=== PATIENT | female | born 1980 | race Caucasian/White ===

== ENCOUNTER 2016-12-01 11:09 | Emergency (ER) | payer MEDICAID ==
[~2016-12-01] VITALS: Ht 160 cm; Wt 61.2 kg
[~2016-12-01 11:09] MED LIST: AC500T PO; ACET-461 PO; ALB0.5V; ALB0.5V INH; ALBU0.8322 IH; ALBU17AE23 IH; ALBU17AE3 IH; ALBU2.5V52 INH; ALBU8.5H2 INH; ALBU8.5H2 PO; ALPR0.25 PO; BENZ0.5T3 PO; BENZ1TAB6 PO; BNZT1T PO; BUDE6HFA IH; BUDE6HFA INH; BUSP10TA95 PO; CARI350T27 PO; CEFD300C3 PO; CEPH500C; CETI10TA17 PO; CHL25T PO; CRB200T; CRS350T; CRS350T PO; CYCL10TA9 PO; DESV50TA PO; DIAZ10TA; DICL75TA2 PO; DICY20TA10 PO; DICY20TA57; DIGO-8 PO; DIGO125T PO; DIGO125T18 PO; DIGO250T PO; DIGO250T96; DIGO250T96 PO; DILT300C25 PO; DIPH25CA6 PO; DIVA500T15 PO; DRON400T2 PO; DULO30CA PO; Daptomycin IV; ENXP60I.6 IM; ENXP60I.6 SQ; ESTR1TAB24; ESTR2TAB PO; ESTR2TAB4 PO; ESZO2TAB4 PO; FLUT1DIS26 IH; FNT50TD TD; FRSM20T; FURO-124 PO; FURO40TA4 PO; GABA600T2 PO; GBPN100C PO; HALO2TAB PO; HALO5TAB PO; HLP5T PO; HYDR-3714 PO; HYDR-3781 PO; HYDR-3812 PO; HYDR25CA3 PO; HYDR25CA5 PO; HYDR50CA PO; HYOS0.1216 PO; HYOS0.1217 PO; IBP800T; KCL20TCR PO; LEVE500T PO; LEVE500T6 PO; LEVE750T19 PO; LEVE750T5 PO; LEVO500T2 PO; LEVO500T69 PO; LOXA25CA2 PO; MECL-106 PO; MECL-133; MECL-133 PO; MECL12.579 PO; METH10TA8 PO; METHYLIN; METO-333 PO; METO25TA; METO25TA PO; METO25TA6 PO; METR500T; METR500T PO; MIRT45TA5 PO; MRTZ30T1 PO; MTP25TSR; MULT-35 PO; MULTIVITAMIN; NAPR-243 PO; NCT21TD TD; NF-ESOM40C PO; OLAN1CAP9; OLAN20TA3 PO; OMEP20TA2 PO; OMEP40CA36 PO; ONDA8TAB6 PO; ONDA8TAB9; ORPH100T PO; OXC10TCR PO; OXYC-272; OXYC-272 PO; OXYC-465 PO; OXYC5TAB49 PO; PANT40SU PO; PANT40TA PO; PANT40TA3 PO; PERCOSET PO; PNT40TEC PO; POTA-51 PO; POTA10CA43 PO; POTA10TA6; POTA20TA15 PO; PREG75CA PO; QUET300T PO; RANI150T15 PO; RIVA20TA PO; SCR1T1 PO; SINUS MED; SLMFT1E; SUCR1ORA5 PO; TOPI100T; TORS100T; TRAM5POW3 MC; TRAZ150T42; TRAZ150T42 PO; TRAZ150T72 PO; TRS20T; WARF-48 PO; WARF5TAB PO; WRF2T PO; WRF5T PO; ZOLP10TA; ZOLP10TA5 PO; ZYDIS PO; [UNRECOGNIZED DRUG - CODE] PO; [UNRECOGNIZED DRUG - CODE] PO; [UNRECOGNIZED DRUG - CODE] PO
--- OUTSIDE RECORDS SUMMARY | 2016-12-01 11:18 | XMS REPORT | Continuity of Care Document ---
Author Author [facility] Organization [facility] Address Unknown Phone Unavailable Care Team Providers Care Surgery Manager Name Role Phone Damian Rodriguez PCP [phone] Source Comments Some departments are not documenting in the electronic medical record. If you do not see the information that you expected, contact Release of Information in the Health Information Management department at [phone] for further assistance in locating additional records.[facility] Active Allergies and Adverse Reactions Allergen Noted Date Severity Reactions Comments Adhesive 08/15/2011 RASH Specifically surgical tape-"rips my skin off" Amoxicillin 03/01/2010 VOMITING, ITCHING Compazine 07/07/2010 SEE COMMENTS EPS symptoms Darvocet 03/01/2010 NAUSEA AND VOMITING Erythromycin 03/01/2010 VOMITING Inapsine 03/01/2010 AGITATION EPS symptoms Peas 11/13/2012 HIVES, EDEMA Penicillins 08/15/2011 HIVES, NAUSEA AND VOMITING Phenergan 03/01/2010 "makes eyes funny"; EPS Sulfa (Sulfonamide 03/01/2010 VOMITING Antibiotics) Tylenol 12/29/2014 Medium HIVES tylenol 3 Current Medications Prescription Sig. Disp. Refills Start End Date Status Date potassium chloride SR Take 1 Tab by mouth Active (K-DUR) 20 mEq tablet Daily. estradiol (ESTRACE) 2 mg Take 2 mg by mouth daily. Active tablet albuterol (VENTOLIN HFA, Inhale 2 Puffs by mouth Active PROAIR HFA) 90 Every 6 Hours as needed mcg/Actuation inhaler for Wheezing. furosemide (LASIX) 40 mg Take 40 mg by mouth Active tablet daily. fluticasone-salmeterol Inhale 1 Puff by mouth Active (ADVAIR DISKUS) 500-50 every 12 hours. mcg inhalation disk metoprolol XL (TOPROL XL) Take 50 mg by mouth Active 50 mg tablet daily. benztropine (COGENTIN) Take 0.5 mg by mouth Active 0.5 mg tablet three times daily. haloperidol (HALDOL) 2 mg Take 2 mg by mouth four Active tablet times daily. Ascorbic Acid 100 mg Tab Take 1 Tab by mouth at Active bedtime daily. albuterol 0.083% Inhale 2.5 mg solution as Active (PROVENTIL; VENTOLIN) 2.5 directed three times mg /3 mL (0.083 %) daily. nebulizer solution calcium carbonate Take 1 Tab by mouth twice 90 Tab 0 11/15/19 Active (OS-SHARA) 1250 mg tablet daily with meals. 13 naproxen (NAPROSYN) 500 Take 1 Tab by mouth twice 60 Tab 1 12/30/19 Active mg tablet daily with meals. 15 rivaroxaban (XARELTO) 20 Take 1 Tab by mouth daily 06/13/20 Active mg tab tablet with breakfast. 16 Active Problems Problem Noted Date Carpal tunnel syndrome of right wrist 12/08/2014 Overview: 12/16/14 L ast Assessment & Plan: Sutures removed. Steri-strips placed. Allow to fall off naturally. OK to shower. Do not submerge wound in water x 2 more weeks. Monitor wound for redness, drainage or other concerns. Contact office with questions. WBAT. Wrist splint prn. Naproxen provided for pain. 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/2012 Overview: History of, due to Ebstein Anomaly Injury, superficial, elbow, forearm, or wrist with infection 09/22/2011 Fracture of right wrist 09/04/2011 Malunion of fracture 09/04/2011 Most Recent Encounters Date Type Specialty Providers Description 10/05/2016 Telephone Cardiology Lesvia Peralta RN Drug/alcohol Problem - plan for cath & valve procedure Social History Tobacco Use Types Packs/Day Years Used Date Current Every Day Smoker Cigarettes 2 18 Smokeless Tobacco: Never Used Tobacco Cessation: Ready to Quit: No; Counseling Given: Yes Comments: Alcohol Use Drinks/Week oz/Week Comments No 0 Standard 0.0 drinks or equivalent Last Filed Vital Signs Vital Sign Reading Time Taken Blood Pressure 120/78 06/13/2016 10:10 AM CDT Pulse 87 06/13/2016 11:26 AM CDT Temperature 36.4 C (97.5 F) 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
[2016-12-01 11:47] LABS: BASOPHILS % (AUTO) 0 % (0-10); EOSINOPHILS # (AUTO) 0.4 10^3/uL (0.0-0.3); EOSINOPHILS % (AUTO) 4 % (0-10); LYMPHOCYTES # (AUTO) 2.3 X 10^3 (1.0-4.0); LYMPHOCYTES % (AUTO) 22 % (12-44); MEAN CORPUSCULAR HEMOGLOBIN 30 PG (25-34); MEAN CORPUSCULAR HGB CONC 33 G/DL (32-36); MEAN CORPUSCULAR VOLUME 89 FL (80-99); MEAN PLATELET VOLUME 9.3 FL (7.4-10.4); MONOCYTES % (AUTO) 9 % (0-12); NEUTROPHILS # (AUTO) 7.1 X 10^3 (1.8-7.8); NEUTROPHILS % (AUTO) 65 % (42-75); PLATELET COUNT 410 10^3/uL (130-400); RED BLOOD COUNT 4.33 10^6/uL (4.35-5.85); RED CELL DISTRIBUTION WIDTH 13.9 % (10.0-14.5); WHITE BLOOD COUNT 10.8 10^3/uL (4.3-11.0)
[2016-12-01 12:06] LABS: ALANINE AMINOTRANSFERASE 17 U/L (0-55); ALBUMIN 4.2 G/DL (3.2-4.5); ANION GAP 9 MMOL/L (5-14); ASPARTATE AMINO TRANSFERASE 16 U/L (5-34); BILIRUBIN,TOTAL 0.4 MG/DL (0.1-1.0); BLOOD UREA NITROGEN 6 MG/DL (7-18); BUN/CREATININE RATIO 8; CALCIUM 8.9 MG/DL (8.5-10.1); CARBON DIOXIDE 26 MMOL/L (21-32); CHLORIDE 101 MMOL/L (98-107); CREATININE SERUM 0.72 MG/DL (0.60-1.30); GFR ESTIMATED > 60; GLUCOSE 82 MG/DL (70-105); POTASSIUM 4.2 MMOL/L (3.6-5.0); SODIUM 136 MMOL/L (135-145); TOTAL PROTEIN 7.7 G/DL (6.4-8.2)
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
[2016-12-01 13:03] VITALS: BP 114/74
== END 2016-12-01 13:03 | disposition home or self-care (01) ==
LOC: EDUNIT# 11:09 → ER 11:12
DX: R53.83 Other fatigue (principal); F19.10 Other psychoactive substance abuse, uncomplicated; F12.10 Cannabis abuse, uncomplicated; I10 Essential (primary) hypertension; J44.9 Chronic obstructive pulmonary disease, unspecified; F17.210 Nicotine dependence, cigarettes, uncomplicated
CPT/HCPCS: 36415; 80053; 80306; 85025; 99282; 99283

== ENCOUNTER 2016-12-01 18:59 | Observation (INO) | payer MEDICAID ==
[~2016-12-01] VITALS: Ht 160 cm; Wt 60.8 kg
--- OUTSIDE RECORDS SUMMARY | 2016-12-01 19:04 | XMS REPORT | Continuity of Care Document ---
Author Author [facility] Organization [facility] Address Unknown Phone Unavailable Care Team Providers Care Color Checker Name Role Phone Damian Rodriguez PCP [phone] Source Comments Some departments are not documenting in the electronic medical record. 

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
--- NOTE | 2016-12-01 21:17 | Diagnostic Imaging Report ---
PROCEDURE: CT head without contrast. TECHNIQUE: Multiple contiguous axial images were obtained through the brain without the use of intravenous contrast. INDICATION: Altered mental status. Study compared 10/12/2016. There is no hemorrhage, hydrocephalus, edema, mass, mass effect or interval change. No sulcal effacement. No abnormal extra-axial collection. The orbits and paranasal sinuses and calvarium unremarkable. The mastoid stable. IMPRESSION: Unchanged exam. No acute appearing abnormality. Dictated by: Dictated on workstation # [id number]
[2016-12-01 23:25] VITALS: BP 107/79
[2016-12-02] VITALS (7 sets, daily range): BP systolic 90–112; BP diastolic 55–75
[2016-12-02] MEDS ORDERED: RT-ALBUTEROL SULF 2.5 MG/3 ML PRE-MIX VIAL INH PRN (00:30)
[2016-12-02 03:51] LABS: BASOPHILS % (AUTO) 0 % (0-10); EOSINOPHILS # (AUTO) 0.5 10^3/uL (0.0-0.3); EOSINOPHILS % (AUTO) 6 % (0-10); LYMPHOCYTES # (AUTO) 2.6 X 10^3 (1.0-4.0); LYMPHOCYTES % (AUTO) 30 % (12-44); MEAN CORPUSCULAR HEMOGLOBIN 30 PG (25-34); MEAN CORPUSCULAR HGB CONC 34 G/DL (32-36); MEAN CORPUSCULAR VOLUME 88 FL (80-99); MEAN PLATELET VOLUME 9.6 FL (7.4-10.4); MONOCYTES # (AUTO) 1.7 X 10^3 (0.0-1.0); MONOCYTES % (AUTO) 20 % (0-12); NEUTROPHILS # (AUTO) 3.7 X 10^3 (1.8-7.8); NEUTROPHILS % (AUTO) 44 % (42-75); PLATELET COUNT 402 10^3/uL (130-400); RED BLOOD COUNT 4.11 10^6/uL (4.35-5.85); RED CELL DISTRIBUTION WIDTH 13.7 % (10.0-14.5); WHITE BLOOD COUNT 8.5 10^3/uL (4.3-11.0)
[2016-12-02 04:10] LABS: ANION GAP 9 MMOL/L (5-14); BLOOD UREA NITROGEN 6 MG/DL (7-18); BUN/CREATININE RATIO 8; CALCIUM 8.8 MG/DL (8.5-10.1); CARBON DIOXIDE 24 MMOL/L (21-32); CHLORIDE 105 MMOL/L (98-107); CREATININE SERUM 0.73 MG/DL (0.60-1.30); GFR ESTIMATED > 60; GLUCOSE 77 MG/DL (70-105); MAGNESIUM 2.4 MG/DL (1.8-2.4); PHOSPHORUS 3.7 MG/DL (2.3-4.7); POTASSIUM 4.1 MMOL/L (3.6-5.0); SODIUM 138 MMOL/L (135-145)
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
--- NOTE | 2016-12-02 09:56 | Diagnostic Imaging Report ---
Portable semi-erect AP chest at 05:24 a.m. INDICATION: Respiratory distress. FINDINGS: This exam is less than optimal as the patient is rotated. Allowing for this technical factor, there does not appear to have been any significant change when compared to the prior exam of 09/26/2016. The heart is enlarged and there are sternotomy wires and surgical clips evident. There is also a left-sided pacemaker in place. The perihilar markings on the right do seem more prominent than on the prior exam, but they are probably accentuated by rotation of the patient. The lungs seem clear. There is no sign of failure, pneumonia, or pleural effusion. The mediastinum is not widened. The osseous structures are intact. The orthopedic fixation rods extending from T3 to the thoracolumbar junction seen previously are again evident. IMPRESSION: Allowing for the rotation of the patient, there has been no significant change since the prior exam. There is no evidence for an acute cardiopulmonary abnormality. Dictated by: Dictated on workstation # [id number]
--- NOTE | 2016-12-20 12:01 | Physician Query-Final Dx ---
CARLEE GIRALDO 12/20/16 1201: Final Diagnosis Give Final Diagnosis Please give Final Diagnosis MIRELLA CALIXTO MD 12/26/16 1212: Final Diagnosis Give Final Diagnosis 1. Altered mental status--secondary to #2 2. Substance abuse--benzodiazepines, THC, and alcohol CARLEE GIRALDO Dec 20, 2016 12:01 MIRELLA CALIXTO MD Dec 26, 2016 12:12
== END 2016-12-02 09:25 | disposition home or self-care (01) ==
LOC: ER 18:59 → EDUNIT# 18:59 → UNDOADMOB 22:31 → ICU 22:31 → UNDODISOB 12-02 11:10
PROVIDERS: ADMIT Family Medicine; ATTEND Family Medicine
DX: R41.82 Altered mental status, unspecified (principal); J44.9 Chronic obstructive pulmonary disease, unspecified; I48.91 Unspecified atrial fibrillation; G40.909 Epilepsy, unspecified, not intractable, without status epilepticus; N31.9 Neuromuscular dysfunction of bladder, unspecified; K21.9 Gastro-esophageal reflux disease without esophagitis; F17.210 Nicotine dependence, cigarettes, uncomplicated; Z95.0 Presence of cardiac pacemaker
CPT/HCPCS: 36415; 70450; 71010; 80048; 80306; 80320; 83735; 84100; 85025; 87081; 99285; G0378

== ENCOUNTER 2017-02-06 17:29 | Inpatient (IN) | payer MEDICAID ==
[2017-02-06] VITALS (15 sets, daily range): BP systolic 91–133; BP diastolic 53–90
[~2017-02-06] VITALS: Ht 160 cm; Wt 61.2 kg
[2017-02-06] MEDS ORDERED: DILTIAZEM 25 MG/5 ML INJ (CARDIZEM) VIAL IVP ONE (18:00)
[2017-02-06] MEDS ORDERED: DILTIAZEM DRIP 100 MG in SODIUM CHLORIDE (ADD-VANTAGE) 100 ML IV SCH (18:00)
[2017-02-06 18:01] LABS: BASOPHILS % (AUTO) 0 % (0-10); EOSINOPHILS % (AUTO) 0 % (0-10); LYMPHOCYTES # (AUTO) 2.8 X 10^3 (1.0-4.0); LYMPHOCYTES % (AUTO) 21 % (12-44); MEAN CORPUSCULAR HEMOGLOBIN 29 PG (25-34); MEAN CORPUSCULAR HGB CONC 34 G/DL (32-36); MEAN CORPUSCULAR VOLUME 86 FL (80-99); MEAN PLATELET VOLUME 10.1 FL (7.4-10.4); MONOCYTES % (AUTO) 8 % (0-12); NEUTROPHILS # (AUTO) 9.5 X 10^3 (1.8-7.8); NEUTROPHILS % (AUTO) 71 % (42-75); PLATELET COUNT 366 10^3/uL (130-400); RED BLOOD COUNT 3.88 10^6/uL (4.35-5.85); RED CELL DISTRIBUTION WIDTH 14.4 % (10.0-14.5); WHITE BLOOD COUNT 13.3 10^3/uL (4.3-11.0)
[2017-02-06 18:12] LABS: INR 1.5 (0.8-1.4); PROTHROMBIN TIME PATIENT 17.4 SEC (12.2-14.7)
[2017-02-06 18:24] LABS: ALANINE AMINOTRANSFERASE 10 U/L (0-55); ALBUMIN 4.3 G/DL (3.2-4.5); ANION GAP 13 MMOL/L (5-14); ASPARTATE AMINO TRANSFERASE 9 U/L (5-34); BILIRUBIN,TOTAL 0.3 MG/DL (0.1-1.0); BLOOD UREA NITROGEN 9 MG/DL (7-18); BUN/CREATININE RATIO 10; CALCIUM 9.5 MG/DL (8.5-10.1); CARBON DIOXIDE 23 MMOL/L (21-32); CHLORIDE 102 MMOL/L (98-107); CREATININE SERUM 0.86 MG/DL (0.60-1.30); GFR ESTIMATED > 60; GLUCOSE 145 MG/DL (70-105); MAGNESIUM 2.2 MG/DL (1.8-2.4); POTASSIUM 3.9 MMOL/L (3.6-5.0); SODIUM 138 MMOL/L (135-145); TOTAL PROTEIN 7.6 G/DL (6.4-8.2)
[2017-02-06 18:30] LABS: ALCOHOL < 10 MG/DL (<10)
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
[2017-02-06 18:44] LABS: MYOGLOBIN SERUM 20.1 NG/ML (10.0-92.0)
[2017-02-06 18:48] LABS: DIGOXIN 0.41 NG/ML (0.80-2.00)
[2017-02-06] MEDS ORDERED: fentaNYL INJECTION 100 MCG/2 ML AMP IVP ONE (19:15)
[2017-02-06] MEDS ORDERED: RIVAROXABAN 20 MG TABLET (XARELTO) PO SCH (20:18)
[2017-02-06] MEDS ORDERED: ONDANSETRON 4 MG/2 ML (SDV) Z0FRAN IVP PRN (20:30)
[2017-02-06] MEDS: NS IV 1000 ML 1,000 ML IV SCH (20:30)
[2017-02-06] MEDS ORDERED: DILTIAZEM DRIP 100 MG/NS 100 ML IV SCH ×2 (20:30)
[2017-02-06] MEDS: LEVETIRACETAM 500 MG (KEPPRA) TAB PO SCH (21:40)
[2017-02-06] MEDS: meTOprolol TARTRATE 25 MG (LOPRESSOR) TABLET PO SCH (21:40)
[2017-02-06] MEDS ORDERED: RIVA20TA PO (21:51)
[2017-02-06] MEDS ORDERED: OLAN5TAB23 (21:51)
[2017-02-06] MEDS ORDERED: PRD20T PO (21:51)
[2017-02-06] MEDS ORDERED: PANT40TA3 PO (21:51)
[2017-02-06] MEDS ORDERED: OLAN10TA17 PO (21:51)
[2017-02-06] MEDS ORDERED: CYCL10TA9 PO (21:51)
[2017-02-06] MEDS ORDERED: FURO40TA4 PO (21:51)
[2017-02-06] MEDS ORDERED: LORA10TA7 PO (21:51)
[2017-02-06] MEDS ORDERED: CYCLOBENZAPRINE 10 MG (FLEXERIL) TAB ONE (22:11)
[2017-02-07] VITALS (29 sets, daily range): BP systolic 86–128; BP diastolic 42–87
[2017-02-07] MEDS: PANTOPRAZOLE 40 MG (PROTONIX) TAB PO SCH ×2 (00:11→09:11)
[2017-02-07] MEDS: CYCLOBENZAPRINE 10 MG (FLEXERIL) TAB PO PRN ×2 (04:06→09:10)
[2017-02-07 04:14] LABS: BASOPHILS % (AUTO) 0 % (0-10); EOSINOPHILS # (AUTO) 0.1 10^3/uL (0.0-0.3); EOSINOPHILS % (AUTO) 1 % (0-10); LYMPHOCYTES # (AUTO) 6.3 X 10^3 (1.0-4.0); LYMPHOCYTES % (AUTO) 37 % (12-44); MEAN CORPUSCULAR HEMOGLOBIN 29 PG (25-34); MEAN CORPUSCULAR HGB CONC 33 G/DL (32-36); MEAN CORPUSCULAR VOLUME 88 FL (80-99); MEAN PLATELET VOLUME 10.7 FL (7.4-10.4); MONOCYTES # (AUTO) 1.7 X 10^3 (0.0-1.0); MONOCYTES % (AUTO) 10 % (0-12); NEUTROPHILS # (AUTO) 8.9 X 10^3 (1.8-7.8); NEUTROPHILS % (AUTO) 52 % (42-75); PLATELET COUNT 323 10^3/uL (130-400); RED BLOOD COUNT 3.44 10^6/uL (4.35-5.85); RED CELL DISTRIBUTION WIDTH 14.5 % (10.0-14.5)
[2017-02-07 04:40] LABS: ALANINE AMINOTRANSFERASE 8 U/L (0-55); ALBUMIN 3.6 G/DL (3.2-4.5); ANION GAP 9 MMOL/L (5-14); ASPARTATE AMINO TRANSFERASE 8 U/L (5-34); BILIRUBIN,TOTAL 0.5 MG/DL (0.1-1.0); BLOOD UREA NITROGEN 11 MG/DL (7-18); BUN/CREATININE RATIO 15; CALCIUM 8.1 MG/DL (8.5-10.1); CARBON DIOXIDE 23 MMOL/L (21-32); CHLORIDE 106 MMOL/L (98-107); CREATININE SERUM 0.73 MG/DL (0.60-1.30); GFR ESTIMATED > 60; GLUCOSE 103 MG/DL (70-105); MAGNESIUM 2.3 MG/DL (1.8-2.4); PHOSPHORUS 3.8 MG/DL (2.3-4.7); POTASSIUM 3.6 MMOL/L (3.6-5.0); SODIUM 138 MMOL/L (135-145); TOTAL PROTEIN 6.4 G/DL (6.4-8.2)
[2017-02-07 04:54] LABS: CHOLESTEROL 225 MG/DL (< 200); DIRECT LDL 172 MG/DL (1-129); TRIGLYCERIDES 121 MG/DL (<150); VLDL CHOLESTEROL 24 MG/DL (5-40)
[2017-02-07 04:57] LABS: ANISOCYTOSIS SLIGHT; BAND NEUTROPHILS 0 %; BASOPHILS % (MANUAL) 0 %; EOSINOPHILS % (MANUAL) 0 %; HYPOCHROMASIA SLIGHT; LYMPHOCYTES % (MANUAL) 42 %; NEUTROPHILS % (MANUAL) 52 %; POIKILOCYTOSIS SLIGHT; POLYCHROMASIA SLIGHT; TARGET CELLS SLIGHT
--- NOTE | 2017-02-07 08:51 | Diagnostic Imaging Report ---
INDICATION: Atrial fibrillation and flutter. COMPARISON: 02/06 FINDINGS: Enlargement of cardiac silhouette unchanged in magnitude and configuration. No evidence for focal pneumonia or pulmonary edema. Air trapping chronic. No effusion or pneumothorax. IMPRESSION: Stable chest. No overt failure pattern, pneumonia or acute pleural collection. Dictated by: Dictated on workstation # [id number]
[2017-02-07] MEDS ORDERED: METO-333 PO (08:55)
[2017-02-07] MEDS ORDERED: DICL75TA2 PO (08:55)
[2017-02-07] MEDS ORDERED: DIGOXIN 0.125 MG (LANOXIN) TAB PO SCH (09:00)
[2017-02-07] MEDS: meTOprolol TARTRATE 25 MG (LOPRESSOR) TABLET PO SCH (09:10)
[2017-02-07] MEDS: NS IV 1000 ML 1,000 ML IV SCH (09:10)
[2017-02-07] MEDS: LEVETIRACETAM 500 MG (KEPPRA) TAB PO SCH (09:10)
[2017-02-07] MEDS ORDERED: NICOTINE 21 MG (NICODERM) PATCH TD SCH (09:30)
[2017-02-07] MEDS ORDERED: ACETAMINOPHEN 500 MG TAB (TYLENOL) PO PRN ×2 (09:30→10:45)
[2017-02-07] MEDS ORDERED: ACET-2267 PO (09:50)
[2017-02-07] MEDS ORDERED: CYCLOBENZAPRINE 10 MG (FLEXERIL) TAB PO PRN (10:45)
[2017-02-07] MEDS ORDERED: OLANZapine 5 MG ODT (ZyPREXA ZYDIS) PO SCH (11:00)
[2017-02-07] MEDS ORDERED: ESTRADIOL 1 MG TAB (ESTRACE) PO SCH (11:00)
[2017-02-07] MEDS ORDERED: PANTOPRAZOLE 40 MG (PROTONIX) TAB PO SCH ×2 (11:00→21:00)
[2017-02-07] MEDS ORDERED: predniSONE 20 MG TAB PO SCH (11:03)
[2017-02-07] MEDS ORDERED: ETODOLAC 300 MG (LODINE) CAP PO SCH (11:15)
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
--- NOTE | 2017-02-07 11:22 | Consultation-Cardiology ---
HPI-Cardiology Cardiology Consultation: Date of Consultation 02/07/17 Date of Admission Attending Physician Jose Zavala MD Admitting Physician Mis,[facility] Consulting Physician Whit MAHONEY MD HPI: Chief Complaint: Palpitations and chest pain This is a 36-year-old patient with previous history of drug abuse. She had tricuspid valve replacement x2 previously. Apparently she is waiting for another one. However she has to be off drugs for 6 months before another valve is offered. She also has history of atrial flutter/fibrillation with numerous cardioversions in the past. Permanent pacemaker. All her care is at [facility]. She presents with chest pain and palpitations. She was found to be in atrial fibrillation and rapid ventricular rate. Review of Systems-Cardiology Review of Systems Constitutional: No As described under HPI, No no symptoms reported, No chills, No fever, No lightheadedness, No malaise, No tiredness, No weight loss, No weight gain, No other Eyes: No As described under HPI, No no symptoms reported, No blindness, No blurred vision, No contact lenses, No drainage, No decreased acuity, No foreign body sensation, No glasses, No inflammation, No pain, No photophobia, No previous injury, No shadows, No tunnel vision, No other, No vision change Ears/Nose/Throat: No As described under HPI, No no symptoms reported, No chronic hearing loss, No epistaxis, No ear discharge, No ear pain, No loose teeth, No mouth pain, No mouth swelling, No nasal drainage, No nose pain, No recent hearing loss, No throat pain, No throat swelling, No ulcerations, No other Respiratory: No no symptoms reported, No As described under HPI, No cough, No orthopnea, No shortness of breath, No SOB with excertion, No SOB at rest, No stridor, No wheezing, No other Cardiovascular: chest pain, palpitations Gastrointestinal: No no symptoms reported, No As described under HPI, No abdomen distended, No abdominal pain, No blood streaked bowels, No constipation , No diarrhea, No difficulty swallowing, No nausea, No poor appetite, No poor fluid intake, No rectal bleeding, No vomiting, No other, No nausea/vomiting/ diarrhea, No stool coloration changes Genitourinary: No no symptoms reported, No As described under HPI, No burning, No dysuria, No discharge, No frequency, No flank pain, No hematuria, No incontinence, No pain, No urgency, No other, No urine frequency changes, No urine coloration changes [id number]-Zbqzrj Hx Patient Social History Alcohol Use: Denies Use Recreational Drug Use: No (STATES SHE IS RECOVERING FROM METH AN POT ) Smoking Status: Current Everyday Smoker Type Used: Cigarettes Recent Foreign Travel: No Recent Infectious Disease Expo: No Physical Abuse Screen: No Sexual Abuse: No Immunizations Up To Date Tetanus Booster (TDap): Unknown Date of Pneumonia Vaccine: Oct 22, 2012 Date of Influenza Vaccine: Aug 22, 2015 Past Medical History PMH As described under Assessment. Family Medical History Family History: Alcoholism 19 MOTHER Depression Depression Diabetes mellitus 19 MOTHER Drug abuse 19 MOTHER FH: cancer of genital organ 19 MOTHER Allergies and Home Medications Allergies Coded Allergies: asenapine (Unverified Allergy, Severe, TOUNGE SWELLING, 04/01/15) codeine (Unverified Allergy, Mild, FLUSHED SKIN, 04/01/15) ondansetron (Verified Allergy, Mild, 06/24/14) Penicillins (Unverified Allergy, Unknown, 06/07/14) Sulfa (Sulfonamide Antibiotics) (Unverified Allergy, Unknown, 04/22/11) droperidol (Verified Allergy, Unknown, 03/14/10) SAME INAPSINE erythromycin base (Verified Allergy, Unknown, 11/26/05) prochlorperazine (Verified Allergy, Unknown, 01/31/06) promethazine (Verified Allergy, Unknown, 01/31/06) promethazine HCl (Unverified Allergy, Unknown, 06/07/14) propoxyphene (Verified Allergy, Unknown, 11/26/05) Home Medications Acetaminophen 500 Mg Tablet, 500-1,000 MG PO EVERY 4-6 HOURS PRN for PAIN-MILD, (Reported) Cyclobenzaprine HCl 10 Mg Tablet, 10 MG PO TID PRN for MUSCLE SPASMS, (Reported) Diclofenac Sodium 75 Mg Tablet.dr, 75 MG PO BID, (Reported) Digoxin 125 Mcg Tablet, 125 MCG PO DAILY, (Reported) Estradiol 2 Mg Tablet, 2 MG PO DAILY, (Reported) Furosemide 40 Mg Tablet, 40 MG PO DAILY, (Reported) Levetiracetam 750 Mg Tablet, 750 MG PO BID, (Reported) Loratadine 10 Mg Tablet, 10 MG PO HS, (Reported) Meclizine HCl 25 Mg Tablet, 25 MG PO DAILY, (Reported) Metoprolol Tartrate 25 Mg Tablet, 12.5 MG PO DAILY, (Reported) TAKES 1/2 (25MG) TABLET Olanzapine 10 Mg Tab.rapdis, 5 MG PO BID, (Reported) TAKES 1/2 (10MG) TABLET Omeprazole 40 Mg Capsule.dr, 40 MG PO HS, (Reported) Pantoprazole Sodium 40 Mg Tablet.dr, 40 MG PO DAILY, (Reported) Prednisone 20 Mg Tab, 40 MG PO DAILY for 5 Days, (Reported) FILLED 5 DAY SUPPLY 02-03-17 TAKES 2 (20MG) TABLETS Rivaroxaban 20 Mg Tablet, 20 MG PO DAILY, (Reported) Physical Exam-Cardiology Physical Exam Vital Signs/I&O Vital Sign - Last 12Hours 02/06/17 02/06/17 02/07/17 02/07/17 23:30 23:45 00:00 00:00 Pulse 63 60 60 Resp 12 12 20 B/P (MAP) 92/55 91/53 95/58 Pulse Ox 99 96 96 98 O2 Delivery Nasal Cannula Nasal Cannula Nasal Cannula Nasal Cannula O2 Flow Rate 3.00 3.00 3.00 3.00 02/07/17 02/07/17 02/07/17 02/07/17 00:12 00:15 00:30 00:45 Temp 97.9 Pulse 60 59 60 Resp 18 16 19 B/P (MAP) 97/54 94/56 92/52 Pulse Ox 98 98 98 O2 Delivery Nasal Cannula Nasal Cannula Nasal Cannula Nasal Cannula O2 Flow Rate 3.00 3.00 3.00 3.00 02/07/17 02/07/17 02/07/17 02/07/17 01:00 01:00 01:15 01:30 Pulse 59 59 60 60 Resp 18 17 B/P (MAP) 90/54 94/53 91/55 Pulse Ox 99 99 99 O2 Delivery Nasal Cannula Nasal Cannula Nasal Cannula O2 Flow Rate 3.00 3.00 3.00 02/07/17 02/07/17 02/07/17 02/07/17 02:00 02:15 02:30 02:45 Pulse 46 47 46 46 Resp 17 18 B/P (MAP) 103/60 96/58 94/54 95/61 Pulse Ox 99 99 99 99 O2 Delivery Nasal Cannula Nasal Cannula Nasal Cannula Nasal Cannula O2 Flow Rate 3.00 3.00 3.00 3.00 02/07/17 02/07/17 02/07/17 02/07/17 03:00 03:15 03:30 03:45 Pulse 46 46 47 47 Resp 16 17 16 B/P (MAP) 93/59 94/61 102/61 95/63 Pulse Ox 99 100 99 99 O2 Delivery Nasal Cannula Nasal Cannula Nasal Cannula Nasal Cannula O2 Flow Rate 3.00 3.00 3.00 3.00 02/07/17 02/07/17 02/07/17 02/07/17 04:00 04:00 04:15 04:30 Pulse 46 52 46 Resp 20 20 15 B/P (MAP) 116/78 104/66 Pulse Ox 99 96 100 100 O2 Delivery Nasal Cannula Nasal Cannula Nasal Cannula Nasal Cannula O2 Flow Rate 3.00 3.00 3.00 3.00 02/07/17 02/07/17 02/07/17 02/07/17 04:45 05:00 05:15 05:30 Pulse 46 46 46 80 Resp 16 16 17 16 B/P (MAP) 110/69 101/69 96/65 89/42 Pulse Ox 100 100 99 O2 Delivery Nasal Cannula Nasal Cannula Nasal Cannula Nasal Cannula O2 Flow Rate 3.00 3.00 3.00 3.00 02/07/17 02/07/17 02/07/17 02/07/17 05:45 06:00 06:15 06:30 Pulse 59 63 59 60 Resp 18 26 24 16 B/P (MAP) 94/54 96/54 88/50 86/48 Pulse Ox 100 100 100 100 O2 Delivery Nasal Cannula Nasal Cannula Nasal Cannula Nasal Cannula O2 Flow Rate 3.00 3.00 3.00 3.00 02/07/17 02/07/17 02/07/17 02/07/17 06:45 07:00 08:00 08:13 Temp 97.3 Pulse 65 63 61 Resp 14 12 B/P (MAP) 89/49 110/73 Pulse Ox 100 100 100 O2 Delivery Nasal Cannula Nasal Cannula Nasal Cannula O2 Flow Rate 3.00 3.00 3.00 02/07/17 02/07/17 08:48 09:13 Pulse 78 Resp 20 B/P (MAP) 128/87 Pulse Ox 100 O2 Delivery Nasal Cannula O2 Flow Rate 3.00 3.00 Intake and Output 02/07/17 00:00 Intake Total 470 ml Output Total 200 ml Balance 270 ml Capillary Refill : Less Than 3 Seconds Constitutional: No appears stated age, No AAO x 3, No apparent distress, No PERRL, No well-developed, No well-nourished, No other HEENT: No PERRL, No normal ENT inspection, No TMs normal, No pharynx normal, No scleral icterus (R), No scleral icterus (L), No pale conjunctivae (R), No pale conjunctivae (L), No photophobia, No TM abnormal (R), No TM abnormal (L), No pharyngeal erythema, No tonsillar exudate, No other, No discharge, No EOMI, No hearing is well preserved, No hard of hearing, No oral hygience is good, No ulceration, No xanthelasmas are seen Neck: No non-tender, No full range of motion, No supple, No normal inspection, No carotid bruit, No limited range of motion, No lymphadenopathy (R), No lymphadenopathy (L), No tender lateral, No tender midline, No thyromegaly, No other, No carotid pulses are 2 + bilaterally, No with good upstrokes Respiratory: No accessory muscle use, No respiratory distress, No chest tender , No chest expansion is symmetric, No chest is bilaterally symmetric, lungs clear to percussion, lungs clear to auscultation, No crackles, No rhonchi, No rales, No stridor, No wheezing, No pleural rub, No other Cardiovascular: regular rate-rhythm, S1 and S2 Gastrointestinal: No tender, No soft, No round, No distended, No pulsatile mass , No organomegaly, No guarding, No rebound, No tenderness, No hernia, No mass, No audible bowel sounds, No abnormal bowel sounds, No abdominal bruits, No spleenomegaly, No other Rectal: deferred Extremities: No normal range of motion, No non-tender, No normal inspection, No pedal edema, No calf tenderness, No normal capillary refill, No pelvis stable , No calf tenderness, No inflammation, No pedal edema, No slow capillary refill , No swelling, No other, No abrasion, No clubbing, No cyanosis, No ecchymosis, No laceration, No no lower extremity edema bilateral, No significant edema, No tenderness, No wound Neurologic/Psychiatric: No lead radiation therapist II-XII nml as tested, No no motor/sensory deficits, No alert, No normal mood/affect, No oriented x 3, No abnormal cerebellar tests, No abnormal lead radiation therapist II-XII, No abnormal gait, No aphasia, No EOM palsy, No facial droop, No motor weakness, No sensory deficit, No depressed affect, No disoriented x 3, No other, No grossly intact, No power is 5/5 both on sides Data Review Labs Laboratory Tests 02/06/17 17:50: White Blood Count 13.3H, Red Blood Count 3.88L, Hemoglobin 11.2L, Hematocrit 33L , Mean Corpuscular Volume 86, Mean Corpuscular Hemoglobin 29, Mean Corpuscular Hemoglobin Concent 34, Red Cell Distribution Width 14.4, Platelet Count 366, Mean Platelet Volume 10.1, Neutrophils (%) (Auto) 71, Lymphocytes (%) (Auto) 21 , Monocytes (%) (Auto) 8, Eosinophils (%) (Auto) 0, Basophils (%) (Auto) 0, Neutrophils # (Auto) 9.5H, Lymphocytes # (Auto) 2.8, Monocytes # (Auto) 1.0, Eosinophils # (Auto) 0.0, Basophils # (Auto) 0.0, Prothrombin Time 17.4H, INR Comment 1.5H, Activated Partial Thromboplast Time 31, Sodium Level 138, Potassium Level 3.9, Chloride Level 102, Carbon Dioxide Level 23, Anion Gap 13, Blood Urea Nitrogen 9, Creatinine 0.86, Estimat Glomerular Filtration Rate > 60 , BUN/Creatinine Ratio 10, Glucose Level 145H, Calcium Level 9.5, Magnesium Level 2.2, Total Bilirubin 0.3, Aspartate Amino Transf (AST/SGOT) 9, Alanine Aminotransferase (ALT/SGPT) 10, Alkaline Phosphatase 88, Myoglobin 20.1, Troponin I < 0.30, B-Type Natriuretic Peptide 35.5, Total Protein 7.6, Albumin 4.3, Free Thyroxine 1.15, TSH [place] Testing 0.32L, Digoxin Level 0.41L, Serum Alcohol < 10 02/06/17 17:52: Urine Opiates Screen NEGATIVE, Urine Oxycodone Screen NEGATIVE, Urine Methadone Screen NEGATIVE, Urine Propoxyphene Screen NEGATIVE, Urine Barbiturates Screen NEGATIVE, Ur Tricyclic Antidepressants Screen POSITIVEH, Urine Phencyclidine Screen NEGATIVE, Urine Amphetamines Screen NEGATIVE, Urine Methamphetamines Screen NEGATIVE, Urine Benzodiazepines Screen NEGATIVE, Urine Cocaine Screen NEGATIVE, Urine Cannabinoids Screen POSITIVEH 02/06/17 23:50: Troponin I < 0.30 02/07/17 03:49: White Blood Count 17.0H, Red Blood Count 3.44L, Hemoglobin 9.8L, Hematocrit 30L , Mean Corpuscular Volume 88, Mean Corpuscular Hemoglobin 29, Mean Corpuscular Hemoglobin Concent 33, Red Cell Distribution Width 14.5, Platelet Count 323, Mean Platelet Volume 10.7H, Neutrophils (%) (Auto) 52, Lymphocytes (%) (Auto) 37 , Monocytes (%) (Auto) 10, Eosinophils (%) (Auto) 1, Basophils (%) (Auto) 0, Neutrophils # (Auto) 8.9H, Lymphocytes # (Auto) 6.3H, Monocytes # (Auto) 1.7H, Eosinophils # (Auto) 0.1, Basophils # (Auto) 0.0, Sodium Level 138, Potassium Level 3.6, Chloride Level 106, Carbon Dioxide Level 23, Anion Gap 9, Blood Urea Nitrogen 11, Creatinine 0.73, Estimat Glomerular Filtration Rate > 60, BUN/ Creatinine Ratio 15, Glucose Level 103, Calcium Level 8.1L, Magnesium Level 2.3 , Total Bilirubin 0.5, Aspartate Amino Transf (AST/SGOT) 8, Alanine Aminotransferase (ALT/SGPT) 8, Alkaline Phosphatase 70, Total Protein 6.4, Albumin 3.6, Neutrophils % (Manual) 52, Lymphocytes % (Manual) 42, Monocytes % ( Manual) 6, Eosinophils % (Manual) 0, Basophils % (Manual) 0, Band Neutrophils 0 , Polychromasia SLIGHT, Hypochromasia SLIGHT, Poikilocytosis SLIGHT, Anisocytosis SLIGHT, Macrocytosis SLIGHT, Target Cells SLIGHT, Elliptocytes SLIGHT, Phosphorus Level 3.8, Triglycerides Level 121, Cholesterol Level 225H, LDL Cholesterol Direct 172H, VLDL Cholesterol 24, HDL Cholesterol 42 ECG Impression ECG Comment Initial EKG showed atrial fibrillation with right bundle branch block. Current telemetry shows sinus rhythm. A/P-Cardiology Assessment/Admission Diagnosis Tricuspid valve replacement. Atrial fibrillation. Chest pain Plan Atrial fibrillation: She was started on Cardizem infusion. She will continue on Xarelto. Spontaneously converted to sinus rhythm today. She can be discharged home on her same medications to follow-up with her manager zone in [place]. Chest pain: Negative serial troponin. awaiting tricuspid valve surgery. Thank you for your consultation. Please call me if you have any questions. Keanu Mahoney MD, FACP, FACC, FSCAI, FHRS, CCDS Interventional Cardiology Cardiac Electrophysiology Vascular Medicine and Endovascular Interventions Clinical Quality Measures AMI/AHF: ASA po Prior to arrival: Whit Roy MD Feb 07, 2017 11:22 am
[2017-02-07] MEDS ORDERED: RIVAROXABAN 20 MG TABLET (XARELTO) PO SCH (17:00)
[2017-02-07] MEDS ORDERED: LEVETIRACETAM 500 MG (KEPPRA) TAB PO SCH (21:00)
[2017-02-07] MEDS ORDERED: LORATADINE (CLARITIN) 10 MG TAB PO SCH (21:00)
[2017-02-08] MEDS ORDERED: PANTOPRAZOLE 40 MG (PROTONIX) TAB PO SCH (07:00)
[2017-02-08] MEDS ORDERED: FUROSEMIDE 40 MG (LASIX) TAB PO SCH (09:00)
[2017-02-08] MEDS ORDERED: MECLIZINE 25 MG (ANTIVERT) TAB PO SCH (09:00)
[2017-02-08] MEDS ORDERED: DIGOXIN 0.125 MG (LANOXIN) TAB PO SCH (09:00)
[2017-02-08] MEDS ORDERED: meTOprolol TARTRATE 25 MG (LOPRESSOR) TABLET PO SCH (09:00)
== END 2017-02-07 12:05 | disposition home or self-care (01) | DRG 310 ==
LOC: EDUNIT# 17:29 → ER 17:33 → ICU 19:19
PROVIDERS: ADMIT Internal Medicine; ATTEND Internal Medicine
DX: I48.91 Unspecified atrial fibrillation (principal); I48.92 Unspecified atrial flutter; J44.9 Chronic obstructive pulmonary disease, unspecified; I10 Essential (primary) hypertension; D72.829 Elevated white blood cell count, unspecified; F12.10 Cannabis abuse, uncomplicated; F13.10 Sedative, hypnotic or anxiolytic abuse, uncomplicated; F17.210 Nicotine dependence, cigarettes, uncomplicated; K21.9 Gastro-esophageal reflux disease without esophagitis; G40.909 Epilepsy, unspecified, not intractable, without status epilepticus; Z95.2 Presence of prosthetic heart valve; Z95.0 Presence of cardiac pacemaker; T38.0X5A Adverse effect of glucocorticoids and synthetic analogues, initial encounter
CPT/HCPCS: 36415; 71010; 80053; 80061; 80162; 80306; 80320; 83735; 83874; 83880; 84100; 84439; 84443; 84484; 85007; 85025; 85027; 85610; 85730; 87081; 93005; 93041; 96374; 96375

== ENCOUNTER 2017-02-09 11:07 | Emergency (ER) | payer MEDICAID ==
[~2017-02-09] VITALS: Ht 160 cm; Wt 61.2 kg
[~2017-02-09 11:07] MED LIST changes: +ACET-2267 PO; +LORA10TA7 PO; +OLAN10TA17 PO; +OLAN5TAB23; +PRD20T PO
[2017-02-09] MEDS ORDERED: NS IV 500 ML 500 ML IV ONE (11:26)
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
[2017-02-09 11:36] LABS: BASOPHILS # (AUTO) 0.1 10^3/uL (0.0-0.1); BASOPHILS % (AUTO) 0 % (0-10); EOSINOPHILS # (AUTO) 0.8 10^3/uL (0.0-0.3); EOSINOPHILS % (AUTO) 5 % (0-10); LYMPHOCYTES % (AUTO) 36 % (12-44); MEAN CORPUSCULAR HEMOGLOBIN 29 PG (25-34); MEAN CORPUSCULAR HGB CONC 33 G/DL (32-36); MEAN CORPUSCULAR VOLUME 87 FL (80-99); MEAN PLATELET VOLUME 10.4 FL (7.4-10.4); MONOCYTES # (AUTO) 1.7 X 10^3 (0.0-1.0); MONOCYTES % (AUTO) 11 % (0-12); NEUTROPHILS # (AUTO) 7.8 X 10^3 (1.8-7.8); NEUTROPHILS % (AUTO) 48 % (42-75); PLATELET COUNT 389 10^3/uL (130-400); RED BLOOD COUNT 3.96 10^6/uL (4.35-5.85); RED CELL DISTRIBUTION WIDTH 14.5 % (10.0-14.5); WHITE BLOOD COUNT 16.4 10^3/uL (4.3-11.0)
[2017-02-09 11:39] LABS: INR 1.8 (0.8-1.4)
[2017-02-09 11:48] LABS: ALANINE AMINOTRANSFERASE 16 U/L (0-55); ALBUMIN 4.4 G/DL (3.2-4.5); ANION GAP 11 MMOL/L (5-14); ASPARTATE AMINO TRANSFERASE 12 U/L (5-34); BILIRUBIN,TOTAL 0.4 MG/DL (0.1-1.0); BLOOD UREA NITROGEN 12 MG/DL (7-18); BUN/CREATININE RATIO 15; CARBON DIOXIDE 28 MMOL/L (21-32); CHLORIDE 102 MMOL/L (98-107); CREATININE SERUM 0.78 MG/DL (0.60-1.30); GFR ESTIMATED > 60; GLUCOSE 92 MG/DL (70-105); MAGNESIUM 2.2 MG/DL (1.8-2.4); POTASSIUM 3.7 MMOL/L (3.6-5.0); SODIUM 141 MMOL/L (135-145); TOTAL PROTEIN 7.6 G/DL (6.4-8.2)
[2017-02-09 11:52] LABS: BAND NEUTROPHILS 0 %; BASOPHILS % (MANUAL) 0 %; EOSINOPHILS % (MANUAL) 9 %; LYMPHOCYTES % (MANUAL) 35 %; NEUTROPHILS % (MANUAL) 47 %
[2017-02-09 11:53] LABS: HYPOCHROMASIA MODERATE; TARGET CELLS SLIGHT
[2017-02-09 11:55] LABS: MYOGLOBIN SERUM 18.1 NG/ML (10.0-92.0)
--- NOTE | 2017-02-09 11:58 | Diagnostic Imaging Report ---
Portable upright radiograph of the chest. INDICATION: Palpitations and dyspnea. FINDINGS: There is thoracic spine fusion hardware, sternotomy wires and pacemaker with a single-lead seen. There is marked cardiomegaly. No pulmonary vascular congestion. No focal infiltrate. No effusion or pneumothorax. IMPRESSION: Cardiomegaly. No focal infiltrates. Dictated by: Dictated on workstation # [id number]
[2017-02-09 12:03] LABS: BILIRUBIN,URINE NEGATIVE (NEGATIVE); KETONES,URINE NEGATIVE (NEGATIVE); LEUKOCYTE ESTERASE ,URINE NEGATIVE (NEGATIVE); NITRITE,URINE NEGATIVE (NEGATIVE); PH,URINE 6.5 (5-9); PROTEIN,URINE NEGATIVE (NEGATIVE); UROBILINOGEN,URINE NORMAL (NORMAL)
[2017-02-09 12:17] LABS: SQUAMOUS EPITHELIAL CELL,UR RARE /HPF
[2017-02-09 12:53] VITALS: BP 124/84
== END 2017-02-09 12:53 | disposition home or self-care (01) ==
LOC: EDUNIT# 11:07 → ER 11:09
DX: R00.2 Palpitations (principal); R06.00 Dyspnea, unspecified; I51.7 Cardiomegaly; I10 Essential (primary) hypertension; I48.2 Chronic atrial fibrillation; K21.9 Gastro-esophageal reflux disease without esophagitis; F17.210 Nicotine dependence, cigarettes, uncomplicated; Z79.899 Other long term (current) drug therapy; Z95.0 Presence of cardiac pacemaker
CPT/HCPCS: 36415; 71010; 80053; 81000; 83735; 83874; 83880; 84484; 85007; 85027; 85379; 85610; 85730; 93005; 93041; 96360

== ENCOUNTER 2017-02-12 18:00 | Emergency (ER) | payer MEDICAID ==
[~2017-02-12] VITALS: Ht 160 cm; Wt 61.2 kg
[2017-02-12 18:59] LABS: BILIRUBIN,URINE NEGATIVE (NEGATIVE); KETONES,URINE NEGATIVE (NEGATIVE); LEUKOCYTE ESTERASE ,URINE 1+ (NEGATIVE); NITRITE,URINE NEGATIVE (NEGATIVE); PH,URINE 5 (5-9); PROTEIN,URINE 1+ (NEGATIVE); UROBILINOGEN,URINE NORMAL (NORMAL)
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
[2017-02-12] MEDS ORDERED: TETANUS,DIPTH,PERTUSS P/F (BOOSTRIX) 0.5 ML VIAL IM STA (19:16)
[2017-02-12 19:25] LABS: BASOPHILS # (AUTO) 0.1 10^3/uL (0.0-0.1); BASOPHILS % (AUTO) 1 % (0-10); EOSINOPHILS # (AUTO) 0.7 10^3/uL (0.0-0.3); EOSINOPHILS % (AUTO) 5 % (0-10); LYMPHOCYTES # (AUTO) 5.8 X 10^3 (1.0-4.0); LYMPHOCYTES % (AUTO) 40 % (12-44); MEAN CORPUSCULAR HEMOGLOBIN 29 PG (25-34); MEAN CORPUSCULAR HGB CONC 34 G/DL (32-36); MEAN CORPUSCULAR VOLUME 86 FL (80-99); MEAN PLATELET VOLUME 9.7 FL (7.4-10.4); MONOCYTES # (AUTO) 1.6 X 10^3 (0.0-1.0); MONOCYTES % (AUTO) 11 % (0-12); NEUTROPHILS # (AUTO) 6.3 X 10^3 (1.8-7.8); NEUTROPHILS % (AUTO) 44 % (42-75); PLATELET COUNT 395 10^3/uL (130-400); RED BLOOD COUNT 3.98 10^6/uL (4.35-5.85); RED CELL DISTRIBUTION WIDTH 14.6 % (10.0-14.5); WHITE BLOOD COUNT 14.3 10^3/uL (4.3-11.0)
[2017-02-12 19:40] LABS: BAND NEUTROPHILS 1 %; BASOPHILS % (MANUAL) 0 %; EOSINOPHILS % (MANUAL) 3 %; LYMPHOCYTES % (MANUAL) 52 %; NEUTROPHILS % (MANUAL) 39 %
[2017-02-12 19:44] LABS: ACETAMINOPHEN 12 UG/ML (10-30); ALANINE AMINOTRANSFERASE 12 U/L (0-55); ALBUMIN 4.2 G/DL (3.2-4.5); ANION GAP 12 MMOL/L (5-14); ASPARTATE AMINO TRANSFERASE 9 U/L (5-34); BILIRUBIN,TOTAL 0.4 MG/DL (0.1-1.0); BLOOD UREA NITROGEN 9 MG/DL (7-18); BUN/CREATININE RATIO 11; CALCIUM 9.2 MG/DL (8.5-10.1); CARBON DIOXIDE 23 MMOL/L (21-32); CHLORIDE 100 MMOL/L (98-107); CREATININE SERUM 0.79 MG/DL (0.60-1.30); GFR ESTIMATED > 60; GLUCOSE 93 MG/DL (70-105); POTASSIUM 3.4 MMOL/L (3.6-5.0); SALICYLATE < 5.0 MG/DL (5.0-20.0); SODIUM 135 MMOL/L (135-145); TOTAL PROTEIN 7.4 G/DL (6.4-8.2)
[2017-02-12 19:49] LABS: ALCOHOL < 10 MG/DL (<10)
[2017-02-12] MEDS ORDERED: ACETAMINOPHEN 500 MG TAB (TYLENOL) PO STA (19:57)
[2017-02-12] MEDS ORDERED: ALPRAZolam 0.25 MG (XANAX) TAB PO ONE (20:00)
[2017-02-12 21:24] VITALS: BP 146/97
== END 2017-02-12 21:24 | disposition home or self-care (01) ==
LOC: EDUNIT# 18:00 → ER 18:01
DX: S51.812A Laceration without foreign body of left forearm, initial encounter (principal); F32.9 Major depressive disorder, single episode, unspecified; F15.10 Other stimulant abuse, uncomplicated; I10 Essential (primary) hypertension; I48.2 Chronic atrial fibrillation; J44.9 Chronic obstructive pulmonary disease, unspecified; I36.9 Nonrheumatic tricuspid valve disorder, unspecified; X78.9XXA Intentional self-harm by unspecified sharp object, initial encounter; Y99.8 Other external cause status
CPT/HCPCS: 36415; 80053; 80306; 80320; 80329; 81000; 84443; 85007; 85027; 90471; 90715; 93005

== ENCOUNTER 2017-03-02 05:12 | Emergency (ER) | payer MEDICAID ==
[~2017-03-02] VITALS: Ht 160 cm; Wt 61.2 kg
[2017-03-02 06:12] LABS: BASOPHILS # (AUTO) 0.1 10^3/uL (0.0-0.1); BASOPHILS % (AUTO) 0 % (0-10); EOSINOPHILS % (AUTO) 0 % (0-10); LYMPHOCYTES # (AUTO) 3.1 X 10^3 (1.0-4.0); LYMPHOCYTES % (AUTO) 16 % (12-44); MEAN CORPUSCULAR HEMOGLOBIN 28 PG (25-34); MEAN CORPUSCULAR HGB CONC 32 G/DL (32-36); MEAN CORPUSCULAR VOLUME 86 FL (80-99); MEAN PLATELET VOLUME 10.1 FL (7.4-10.4); MONOCYTES # (AUTO) 1.5 X 10^3 (0.0-1.0); MONOCYTES % (AUTO) 7 % (0-12); NEUTROPHILS # (AUTO) 15.5 X 10^3 (1.8-7.8); NEUTROPHILS % (AUTO) 77 % (42-75); PLATELET COUNT 366 10^3/uL (130-400); RED BLOOD COUNT 3.52 10^6/uL (4.35-5.85); RED CELL DISTRIBUTION WIDTH 15.1 % (10.0-14.5); WHITE BLOOD COUNT 20.2 10^3/uL (4.3-11.0)
[2017-03-02 06:24] VITALS: BP 123/60
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
[2017-03-02 06:41] LABS: BAND NEUTROPHILS 0 %; BASOPHILS % (MANUAL) 0 %; EOSINOPHILS % (MANUAL) 0 %; LYMPHOCYTES % (MANUAL) 18 %; NEUTROPHILS % (MANUAL) 77 %
[2017-03-02 06:42] LABS: ANISOCYTOSIS SLIGHT; POIKILOCYTOSIS SLIGHT; STOMATOCYTES SLIGHT; TARGET CELLS SLIGHT
[2017-03-02 06:46] LABS: ALANINE AMINOTRANSFERASE 18 U/L (0-55); ANION GAP 10 MMOL/L (5-14); ASPARTATE AMINO TRANSFERASE 14 U/L (5-34); BILIRUBIN,TOTAL 0.4 MG/DL (0.1-1.0); BLOOD UREA NITROGEN 14 MG/DL (7-18); BUN/CREATININE RATIO 15; CALCIUM 8.9 MG/DL (8.5-10.1); CARBON DIOXIDE 22 MMOL/L (21-32); CHLORIDE 102 MMOL/L (98-107); CREATININE SERUM 0.94 MG/DL (0.60-1.30); GFR ESTIMATED > 60; GLUCOSE 83 MG/DL (70-105); MAGNESIUM 2.2 MG/DL (1.8-2.4); POTASSIUM 4.1 MMOL/L (3.6-5.0); SODIUM 134 MMOL/L (135-145); TOTAL PROTEIN 7.3 G/DL (6.4-8.2)
[2017-03-02 06:53] LABS: MYOGLOBIN SERUM 44.4 NG/ML (10.0-92.0)
[2017-03-02 06:54] LABS: INR 1.3 (0.8-1.4); PROTHROMBIN TIME PATIENT 15.5 SEC (12.2-14.7)
[2017-03-02 07:00] LABS: ALCOHOL < 10 MG/DL (<10)
[2017-03-02 07:06] LABS: BILIRUBIN,URINE NEGATIVE (NEGATIVE); KETONES,URINE NEGATIVE (NEGATIVE); LEUKOCYTE ESTERASE ,URINE 1+ (NEGATIVE); NITRITE,URINE NEGATIVE (NEGATIVE); PH,URINE 6 (5-9); PROTEIN,URINE 2+ (NEGATIVE); UROBILINOGEN,URINE NORMAL (NORMAL)
[2017-03-02 07:55] VITALS: BP 120/58
== END 2017-03-02 07:54 | disposition home or self-care (01) ==
LOC: EDUNIT# 05:12 → ER 05:14
DX: I48.0 Paroxysmal atrial fibrillation (principal); D72.829 Elevated white blood cell count, unspecified; F15.10 Other stimulant abuse, uncomplicated; F12.10 Cannabis abuse, uncomplicated; F14.10 Cocaine abuse, uncomplicated; I51.7 Cardiomegaly; J44.9 Chronic obstructive pulmonary disease, unspecified; I10 Essential (primary) hypertension; G40.909 Epilepsy, unspecified, not intractable, without status epilepticus; F17.210 Nicotine dependence, cigarettes, uncomplicated; Z79.01 Long term (current) use of anticoagulants; Z79.899 Other long term (current) drug therapy; Z95.2 Presence of prosthetic heart valve; Z95.0 Presence of cardiac pacemaker
CPT/HCPCS: 36415; 71010; 80053; 80306; 80320; 81000; 83735; 83874; 84443; 84484; 85007; 85027; 85610; 85730; 93005; 93041

== ENCOUNTER 2017-03-21 21:17 | Emergency (ER) | payer MEDICAID ==
[~2017-03-21] VITALS: Ht 160 cm; Wt 59.0 kg
[2017-03-21 22:12] LABS: BILIRUBIN,URINE NEGATIVE (NEGATIVE); KETONES,URINE NEGATIVE (NEGATIVE); LEUKOCYTE ESTERASE ,URINE NEGATIVE (NEGATIVE); NITRITE,URINE NEGATIVE (NEGATIVE); PH,URINE 7 (5-9); PROTEIN,URINE NEGATIVE (NEGATIVE); UROBILINOGEN,URINE NORMAL (NORMAL)
[2017-03-21 22:22] LABS: WBC,URINE 0-2 /HPF
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
[2017-03-21] MEDS ORDERED: CIPR500T4 PO (22:47)
[2017-03-21 23:00] VITALS: BP 135/97
== END 2017-03-21 23:00 | disposition home or self-care (01) ==
LOC: EDUNIT# 21:17 → ER 21:19
DX: N39.41 Urge incontinence (principal); I10 Essential (primary) hypertension; J44.9 Chronic obstructive pulmonary disease, unspecified; F17.210 Nicotine dependence, cigarettes, uncomplicated; Z79.899 Other long term (current) drug therapy; Z95.0 Presence of cardiac pacemaker
CPT/HCPCS: 80306; 81000; 99285

== ENCOUNTER 2017-03-24 17:20 | Emergency (ER) | payer MEDICAID ==
[~2017-03-24] VITALS: Ht 160 cm; Wt 65.8 kg
[~2017-03-24 17:20] MED LIST changes: -CATHETER FLUSH 10 ML SYR IV PRN; -HYDR-3820 PO; -IOHEXOL 350 MG/ML 100 ML (OMNIPAQUE 350) VIAL IV ONE; -NS 100 ML (IVPB) BAG IV ONE
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
[2017-03-24] MEDS ORDERED: LACTATED RINGERS 1,000 ML IV ONE (18:45)
[2017-03-24 18:52] LABS: BASOPHILS # (AUTO) 0.1 10^3/uL (0.0-0.1); BASOPHILS % (AUTO) 1 % (0-10); EOSINOPHILS # (AUTO) 0.6 10^3/uL (0.0-0.3); EOSINOPHILS % (AUTO) 3 % (0-10); LYMPHOCYTES # (AUTO) 4.6 X 10^3 (1.0-4.0); LYMPHOCYTES % (AUTO) 23 % (12-44); MEAN CORPUSCULAR HEMOGLOBIN 28 PG (25-34); MEAN CORPUSCULAR HGB CONC 32 G/DL (32-36); MEAN CORPUSCULAR VOLUME 86 FL (80-99); MONOCYTES % (AUTO) 10 % (0-12); NEUTROPHILS # (AUTO) 13.2 X 10^3 (1.8-7.8); NEUTROPHILS % (AUTO) 65 % (42-75); PLATELET COUNT 393 10^3/uL (130-400); RED BLOOD COUNT 4.04 10^6/uL (4.35-5.85); RED CELL DISTRIBUTION WIDTH 14.9 % (10.0-14.5); WHITE BLOOD COUNT 20.4 10^3/uL (4.3-11.0)
[2017-03-24 19:09] LABS: ALANINE AMINOTRANSFERASE 29 U/L (0-55); ALBUMIN 3.8 G/DL (3.2-4.5); ANION GAP 11 MMOL/L (5-14); ASPARTATE AMINO TRANSFERASE 24 U/L (5-34); BILIRUBIN,TOTAL 0.2 MG/DL (0.1-1.0); BLOOD UREA NITROGEN 8 MG/DL (7-18); BUN/CREATININE RATIO 8; CALCIUM 8.4 MG/DL (8.5-10.1); CARBON DIOXIDE 20 MMOL/L (21-32); CHLORIDE 103 MMOL/L (98-107); CREATININE SERUM 1.02 MG/DL (0.60-1.30); GFR ESTIMATED > 60; GLUCOSE 105 MG/DL (70-105); LIPASE 18 U/L (8-78); MAGNESIUM 2.4 MG/DL (1.8-2.4); POTASSIUM 4.7 MMOL/L (3.6-5.0); SALICYLATE < 5.0 MG/DL (5.0-20.0); SODIUM 134 MMOL/L (135-145); TOTAL PROTEIN 7.3 G/DL (6.4-8.2)
[2017-03-24 19:11] LABS: ACETAMINOPHEN < 10 UG/ML (10-30)
[2017-03-24 19:13] LABS: BAND NEUTROPHILS 0 %; BASOPHILS % (MANUAL) 0 %; EOSINOPHILS % (MANUAL) 2 %; LYMPHOCYTES % (MANUAL) 24 %; NEUTROPHILS % (MANUAL) 72 %
[2017-03-24 19:15] LABS: DIGOXIN 0.52 NG/ML (0.80-2.00)
[2017-03-24 19:18] LABS: BILIRUBIN,URINE NEGATIVE (NEGATIVE); KETONES,URINE NEGATIVE (NEGATIVE); LEUKOCYTE ESTERASE ,URINE NEGATIVE (NEGATIVE); NITRITE,URINE NEGATIVE (NEGATIVE); PH,URINE 5 (5-9); PROTEIN,URINE NEGATIVE (NEGATIVE); UROBILINOGEN,URINE NORMAL (NORMAL)
[2017-03-24 19:33] LABS: WBC,URINE RARE /HPF
[2017-03-24] MEDS ORDERED: fentaNYL INJECTION 100 MCG/2 ML AMP IVP STA (21:29)
[2017-03-24] MEDS ORDERED: DIAZEPAM INJ 10 MG/2 ML (VALIUM) SYR IV ONE (21:30)
[2017-03-24] MEDS ORDERED: HYDR-3820 PO (21:38)
[2017-03-24 21:47] VITALS: BP 78/43
[2017-03-24] MEDS ORDERED: DIAZEPAM 5 MG (VALIUM) TABLET ONE (21:53)
== END 2017-03-24 22:04 | disposition home or self-care (01) ==
LOC: EDUNIT# 17:20 → ER 17:21
DX: R10.84 Generalized abdominal pain (principal); D72.829 Elevated white blood cell count, unspecified; I10 Essential (primary) hypertension; J44.9 Chronic obstructive pulmonary disease, unspecified; Z79.899 Other long term (current) drug therapy; Z95.0 Presence of cardiac pacemaker; Z95.2 Presence of prosthetic heart valve
CPT/HCPCS: 36415; 80053; 80162; 80306; 80329; 81000; 83690; 83735; 85007; 85027; 96361; 96374

== ENCOUNTER → 2017-03-24 | Outpatient (CLI) | payer MEDICAID ==
[~2017-03-24] MED LIST changes: +CATHETER FLUSH 10 ML SYR IV PRN; +CIPR500T4 PO; +HYDR-3820 PO; +IOHEXOL 350 MG/ML 100 ML (OMNIPAQUE 350) VIAL IV ONE; +NS 100 ML (IVPB) BAG IV ONE
--- NOTE | 2017-03-24 14:03 | Diagnostic Imaging Report ---
PROCEDURE: CT abdomen and pelvis with contrast. TECHNIQUE: Multiple contiguous axial images were obtained through the abdomen and pelvis after administration of intravenous contrast. INDICATION: Abdominal distention. Constipation. COMPARISON: CT abdomen and pelvis without contrast 06/24/2015. FINDINGS: Cholecystectomy. Mild atelectasis or scarring in the left lung base. Cardiomegaly. Sternotomy. Cardiac pacer. The liver, pancreas, spleen, adrenals, kidneys and collecting systems are negative. Reported appendectomy. Hysterectomy. There are numerous radiopaque pills collected within the cecum. No evidence of bowel obstruction. No free intraperitoneal air or fluid. No lymphadenopathy. Postoperative changes in the thoracolumbar spine. No acute osseous findings. IMPRESSION: 1. No acute CT findings in the abdomen or pelvis. 2. There are numerous radiopaque pills collected within the cecum. Although pills are commonly seen within the GI tract on CT, the large number and isolated location is unusual. There is no evidence of bowel obstruction. There are no inflammatory changes in the region of the cecum. Dictated by: Dictated on workstation # [id number]
== END ==
LOC: RAD 12:33
PROVIDERS: ATTEND Nurse Practitioner Family
DX: R14.0 Abdominal distension (gaseous) (principal)
CPT/HCPCS: 74177

== ENCOUNTER 2017-04-14 09:10 | Emergency (ER) | payer MEDICAID ==
[~2017-04-14] VITALS: Ht 160 cm; Wt 65.8 kg
[~2017-04-14 09:10] MED LIST changes: +HYDR-3820 PO
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
[2017-04-14 11:09] LABS: BILIRUBIN,URINE NEGATIVE (NEGATIVE); KETONES,URINE NEGATIVE (NEGATIVE); LEUKOCYTE ESTERASE ,URINE NEGATIVE (NEGATIVE); NITRITE,URINE NEGATIVE (NEGATIVE); PH,URINE 6 (5-9); PROTEIN,URINE NEGATIVE (NEGATIVE); UROBILINOGEN,URINE NORMAL (NORMAL)
[2017-04-14 11:25] LABS: BASOPHILS # (AUTO) 0.1 10^3/uL (0.0-0.1); BASOPHILS % (AUTO) 0 % (0-10); EOSINOPHILS # (AUTO) 0.3 10^3/uL (0.0-0.3); EOSINOPHILS % (AUTO) 2 % (0-10); LYMPHOCYTES # (AUTO) 3.4 X 10^3 (1.0-4.0); LYMPHOCYTES % (AUTO) 25 % (12-44); MEAN CORPUSCULAR HEMOGLOBIN 27 PG (25-34); MEAN CORPUSCULAR HGB CONC 32 G/DL (32-36); MEAN CORPUSCULAR VOLUME 84 FL (80-99); MONOCYTES # (AUTO) 1.2 X 10^3 (0.0-1.0); MONOCYTES % (AUTO) 9 % (0-12); NEUTROPHILS # (AUTO) 8.4 X 10^3 (1.8-7.8); NEUTROPHILS % (AUTO) 63 % (42-75); PLATELET COUNT 365 10^3/uL (130-400); RED BLOOD COUNT 4.85 10^6/uL (4.35-5.85); RED CELL DISTRIBUTION WIDTH 16.2 % (10.0-14.5); WHITE BLOOD COUNT 13.4 10^3/uL (4.3-11.0)
[2017-04-14 11:45] LABS: ALANINE AMINOTRANSFERASE 15 U/L (0-55); ALBUMIN 4.8 GM/DL (3.2-4.5); ANION GAP 13 MMOL/L (5-14); ASPARTATE AMINO TRANSFERASE 13 U/L (5-34); BILIRUBIN,TOTAL 0.4 MG/DL (0.1-1.0); BLOOD UREA NITROGEN 13 MG/DL (7-18); BUN/CREATININE RATIO 18 (0-20); CARBON DIOXIDE 26 MMOL/L (21-32); CHLORIDE 101 MMOL/L (98-107); CREATININE SERUM 0.73 MG/DL (0.60-1.30); GFR ESTIMATED > 60; GLUCOSE 75 MG/DL (70-105); HEMOLYSIS 4 (-100-29); ICTERUS 0.5 (-100-1.9); LIPEMIA 9 (-100-49); POTASSIUM 4.5 MMOL/L (3.6-5.0); SODIUM 140 MMOL/L (135-145); TOTAL PROTEIN 9.1 GM/DL (6.4-8.2)
--- NOTE | 2017-04-14 11:57 | Diagnostic Imaging Report ---
PROCEDURE: CT head without contrast. TECHNIQUE: Multiple contiguous axial images were obtained through the brain without the use of intravenous contrast. INDICATION: Seizure, blurred vision and nausea. Comparison made to a prior CT study from July 31, 2017. FINDINGS: There is no CT demonstration to suggest acute intracranial hemorrhage. There is no evidence of intracranial mass effect or shift. There is no hydrocephalus. The basilar cisterns are patent. Villegas-white differentiation appear preserved. No abnormal hypodensity evident within the basal ganglia or within the brainstem. The mastoid air cells are clear. The visualized paranasal sinuses clear. Orbital contents unremarkable. No calvarial abnormality is demonstrated. IMPRESSION: 1. Stable CT appearance of the head. There is no CT evidence of an acute intracranial abnormality. Dictated by: Dictated on workstation # [id number]
[2017-04-14 12:50] VITALS: BP 118/76
--- OUTSIDE RECORDS SUMMARY | 2017-04-16 16:35 | XMS REPORT | Continuity of Care Document ---
Author Author [facility] Organization [facility] Address Unknown Phone Unavailable Care Team Providers Care Contract Mail Carrier Name Role Phone Werner Rodriguez PCP [phone] Source Comments Some departments are not documenting in the electronic medical record. 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
== END 2017-04-14 12:50 | disposition home or self-care (01) ==
LOC: EDUNIT# 09:10 → ER 09:11
DX: R41.3 Other amnesia (principal); G40.409 Other generalized epilepsy and epileptic syndromes, not intractable, without status epilepticus; I10 Essential (primary) hypertension; F13.99 Sedative, hypnotic or anxiolytic use, unspecified with unspecified sedative, hypnotic or anxiolytic-induced disorder; J44.9 Chronic obstructive pulmonary disease, unspecified; Z95.2 Presence of prosthetic heart valve; Z77.22 Contact with and (suspected) exposure to environmental tobacco smoke (acute) (chronic)
CPT/HCPCS: 36415; 70450; 80053; 80306; 81000; 85025; 99282

== ENCOUNTER 2017-04-22 18:33 | Emergency (ER) | payer MEDICAID ==
[~2017-04-22] VITALS: Ht 157.5 cm; Wt 65.8 kg
[2017-04-22] MEDS ORDERED: diphenhydrAMINE 25 MG TAB (BENADRYL) PO ONE ×2 (19:15)
[2017-04-22] MEDS ORDERED: OLANZapine 5 MG (ZyPREXA) TAB PO ONE (19:15)
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
[2017-04-22 19:25] LABS: BILIRUBIN,URINE NEGATIVE (NEGATIVE); KETONES,URINE NEGATIVE (NEGATIVE); LEUKOCYTE ESTERASE ,URINE 1+ (NEGATIVE); NITRITE,URINE NEGATIVE (NEGATIVE); PH,URINE 5 (5-9); PROTEIN,URINE 2+ (NEGATIVE); UROBILINOGEN,URINE 1 MG/DL (NORMAL)
[2017-04-22 19:32] LABS: WBC,URINE 0-2 /HPF
[2017-04-22] MEDS ORDERED: OLANZapine 5 MG ODT (ZyPREXA ZYDIS) ONE (19:35)
[2017-04-22 20:52] LABS: BASOPHILS # (AUTO) 0.1 10^3/uL (0.0-0.1); BASOPHILS % (AUTO) 0 % (0-10); EOSINOPHILS # (AUTO) 0.3 10^3/uL (0.0-0.3); EOSINOPHILS % (AUTO) 2 % (0-10); LYMPHOCYTES # (AUTO) 5.6 X 10^3 (1.0-4.0); LYMPHOCYTES % (AUTO) 38 % (12-44); MEAN CORPUSCULAR HEMOGLOBIN 27 PG (25-34); MEAN CORPUSCULAR HGB CONC 33 G/DL (32-36); MEAN CORPUSCULAR VOLUME 82 FL (80-99); MEAN PLATELET VOLUME 10.3 FL (7.4-10.4); MONOCYTES # (AUTO) 1.7 X 10^3 (0.0-1.0); MONOCYTES % (AUTO) 11 % (0-12); NEUTROPHILS # (AUTO) 7.1 X 10^3 (1.8-7.8); NEUTROPHILS % (AUTO) 48 % (42-75); PLATELET COUNT 325 10^3/uL (130-400); RED BLOOD COUNT 4.22 10^6/uL (4.35-5.85); RED CELL DISTRIBUTION WIDTH 16.1 % (10.0-14.5); WHITE BLOOD COUNT 14.6 10^3/uL (4.3-11.0)
[2017-04-22 21:15] VITALS: BP 132/80
[2017-04-22 21:21] LABS: ACETAMINOPHEN 10 UG/ML (10-30); ALANINE AMINOTRANSFERASE 35 U/L (0-55); ALBUMIN 4.2 GM/DL (3.2-4.5); ALCOHOL < 10 MG/DL (<10); ANION GAP 13 MMOL/L (5-14); ASPARTATE AMINO TRANSFERASE 19 U/L (5-34); BILIRUBIN,TOTAL 0.3 MG/DL (0.1-1.0); BLOOD UREA NITROGEN 11 MG/DL (7-18); BUN/CREATININE RATIO 10; CALCIUM 9.6 MG/DL (8.5-10.1); CARBON DIOXIDE 26 MMOL/L (21-32); CHLORIDE 98 MMOL/L (98-107); CREATININE SERUM 1.06 MG/DL (0.60-1.30); GFR ESTIMATED 58; GLUCOSE 110 MG/DL (70-105); POTASSIUM 3.4 MMOL/L (3.6-5.0); SALICYLATE < 5.0 MG/DL (5.0-20.0); SODIUM 137 MMOL/L (135-145); TOTAL PROTEIN 8.1 GM/DL (6.4-8.2)
[2017-04-22 21:22] LABS: BAND NEUTROPHILS 2 %; BASOPHILS % (MANUAL) 1 %; EOSINOPHILS % (MANUAL) 2 %; LYMPHOCYTES % (MANUAL) 53 %; NEUTROPHILS % (MANUAL) 40 %
--- OUTSIDE RECORDS SUMMARY | 2017-04-25 13:47 | XMS REPORT | Continuity of Care Document ---
Author Author [facility] Organization [facility] Address Unknown Phone Unavailable Care Team Providers Care Infusion Pharmacist Name Role Phone Werner Rodriguez PCP [phone] Source Comments Some departments are not documenting in the electronic medical record. If you do not see the information that you expected, contact Release of Information in the Health Information Management department at [phone] for further assistance in locating additional records.[facility] Active Allergies and Adverse Reactions Allergen Noted [...] 36.4 C (97.5 F) 12/16/2014 10:45 AM CASING TESTER Respiratory Rate - - Height 1.613 m [...]
== END 2017-04-22 21:15 | disposition home or self-care (01) ==
LOC: EDUNIT# 18:33 → ER 18:34
DX: F15.10 Other stimulant abuse, uncomplicated (principal); F12.10 Cannabis abuse, uncomplicated; F31.9 Bipolar disorder, unspecified; G47.9 Sleep disorder, unspecified; F41.9 Anxiety disorder, unspecified; M47.9 Spondylosis, unspecified; K21.9 Gastro-esophageal reflux disease without esophagitis; G40.909 Epilepsy, unspecified, not intractable, without status epilepticus; I48.91 Unspecified atrial fibrillation; I10 Essential (primary) hypertension; J44.9 Chronic obstructive pulmonary disease, unspecified; J45.909 Unspecified asthma, uncomplicated; F17.210 Nicotine dependence, cigarettes, uncomplicated; Z95.0 Presence of cardiac pacemaker; Z95.2 Presence of prosthetic heart valve; Z90.49 Acquired absence of other specified parts of digestive tract; Z90.710 Acquired absence of both cervix and uterus
CPT/HCPCS: 36415; 80053; 80306; 80320; 80329; 81000; 84443; 84703; 85007; 85027; 93005

== ENCOUNTER 2017-05-03 21:44 | Emergency (ER) | payer MEDICAID ==
[~2017-05-03] VITALS: Ht 160 cm; Wt 63.5 kg
--- OUTSIDE RECORDS SUMMARY | 2017-05-03 21:51 | XMS REPORT | Continuity of Care Document ---
Author Author [facility] Organization [facility] Address Unknown Phone Unavailable Care Team Providers Care Ammonia Refrigeration Worker Name Role Phone Werner Rodriguez PCP [phone] Source Comments Some departments are not documenting in the electronic medical record. 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
[2017-05-03 22:22] LABS: BASOPHILS % (AUTO) 0 % (0-10); EOSINOPHILS % (AUTO) 0 % (0-10); LYMPHOCYTES # (AUTO) 4.6 X 10^3 (1.0-4.0); LYMPHOCYTES % (AUTO) 22 % (12-44); MEAN CORPUSCULAR HEMOGLOBIN 27 PG (25-34); MEAN CORPUSCULAR HGB CONC 33 G/DL (32-36); MEAN CORPUSCULAR VOLUME 83 FL (80-99); MEAN PLATELET VOLUME 9.6 FL (7.4-10.4); MONOCYTES # (AUTO) 2.1 X 10^3 (0.0-1.0); MONOCYTES % (AUTO) 10 % (0-12); NEUTROPHILS # (AUTO) 14.8 X 10^3 (1.8-7.8); NEUTROPHILS % (AUTO) 69 % (42-75); PLATELET COUNT 509 10^3/uL (130-400); RED BLOOD COUNT 3.95 10^6/uL (4.35-5.85); RED CELL DISTRIBUTION WIDTH 16.3 % (10.0-14.5); WHITE BLOOD COUNT 21.5 10^3/uL (4.3-11.0)
[2017-05-03 22:25] LABS: BILIRUBIN,URINE NEGATIVE (NEGATIVE); KETONES,URINE NEGATIVE (NEGATIVE); LEUKOCYTE ESTERASE ,URINE NEGATIVE (NEGATIVE); NITRITE,URINE NEGATIVE (NEGATIVE); PH,URINE 7 (5-9); PROTEIN,URINE NEGATIVE (NEGATIVE); UROBILINOGEN,URINE NORMAL (NORMAL)
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
[2017-05-03 22:32] LABS: SQUAMOUS EPITHELIAL CELL,UR 0-2 /HPF; WBC,URINE RARE /HPF
[2017-05-03 22:34] LABS: INR 1.2 (0.8-1.4); PROTHROMBIN TIME PATIENT 14.5 SEC (12.2-14.7)
[2017-05-03 22:40] LABS: ALANINE AMINOTRANSFERASE 22 U/L (0-55); ALBUMIN 4.1 GM/DL (3.2-4.5); ANION GAP 12 MMOL/L (5-14); ASPARTATE AMINO TRANSFERASE 10 U/L (5-34); BILIRUBIN,TOTAL 0.3 MG/DL (0.1-1.0); BLOOD UREA NITROGEN 8 MG/DL (7-18); BUN/CREATININE RATIO 10; CALCIUM 9.1 MG/DL (8.5-10.1); CARBON DIOXIDE 24 MMOL/L (21-32); CHLORIDE 102 MMOL/L (98-107); CREATININE SERUM 0.83 MG/DL (0.60-1.30); GFR ESTIMATED > 60; GLUCOSE 174 MG/DL (70-105); MAGNESIUM 2.2 MG/DL (1.8-2.4); POTASSIUM 3.7 MMOL/L (3.6-5.0); SODIUM 138 MMOL/L (135-145); TOTAL PROTEIN 7.8 GM/DL (6.4-8.2)
[2017-05-03 22:49] LABS: BAND NEUTROPHILS 0 %; BASOPHILS % (MANUAL) 0 %; EOSINOPHILS % (MANUAL) 0 %; LYMPHOCYTES % (MANUAL) 34 %; NEUTROPHILS % (MANUAL) 65 %
[2017-05-03 22:50] LABS: POIKILOCYTOSIS SLIGHT; TARGET CELLS SLIGHT
[2017-05-03] MEDS ORDERED: KETOROLAC 30 MG/ML VIAL IVP ONE (23:15)
[2017-05-03 23:36] VITALS: BP 119/70
--- NOTE | 2017-05-04 07:31 | Diagnostic Imaging Report ---
PROCEDURE: CT head without contrast. TECHNIQUE: Multiple contiguous axial images were obtained through the brain without the use of intravenous contrast. INDICATION: Tenderness in the right parietal region . FINDINGS: There is no intracranial hemorrhage, edema or mass effect. The brain parenchyma appears unremarkable. No hydrocephalus. The visualized portions of the orbits and paranasal sinuses appear unremarkable. IMPRESSION: Unremarkable study. Dictated by: Dictated on workstation # [id number]
== END 2017-05-03 23:36 | disposition home or self-care (01) ==
LOC: EDUNIT# 21:44 → ER 21:46
DX: G40.909 Epilepsy, unspecified, not intractable, without status epilepticus (principal); S06.0X0A Concussion without loss of consciousness, initial encounter; I10 Essential (primary) hypertension; J44.9 Chronic obstructive pulmonary disease, unspecified; I48.0 Paroxysmal atrial fibrillation; F17.210 Nicotine dependence, cigarettes, uncomplicated; Z79.01 Long term (current) use of anticoagulants; Z79.899 Other long term (current) drug therapy; Z95.2 Presence of prosthetic heart valve; W01.0XXA Fall on same level from slipping, tripping and stumbling without subsequent striking against object, initial encounter; Y99.8 Other external cause status
CPT/HCPCS: 36415; 70450; 80053; 80306; 81000; 83735; 85007; 85027; 85610; 85730; 96374

== ENCOUNTER 2017-05-08 11:39 | Emergency (ER) | payer MEDICAID ==
[~2017-05-08] VITALS: Ht 160 cm; Wt 63.5 kg
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
--- NOTE | 2017-05-08 12:17 | Diagnostic Imaging Report ---
3 views of lumbar spine. INDICATION: Back pain. FINDINGS: The alignment of the lumbar spine is satisfactory. The vertebral body heights are preserved. There is mild disc height loss at L4-L5 level and endplate sclerotic changes are seen. There is posterior fusion hardware extending from the thoracic spine above the level of the image across the thoracolumbar junction and involves the posterior elements of L1 and L2. Minimal left convexity scoliotic curvature is seen in the lumbar spine. There are from wires projecting over the right flank region that appear to be anterior based on the lateral view and are presumably cardiac related. Surgical clips in the upper right abdomen also seen. IMPRESSION: Postsurgical changes about the upper lumbar spine and thoracic spine. Minimal left scoliotic convexity curvature of the lumbar spine and lower lumbar spine degenerative changes are seen. Dictated by: Dictated on workstation # [id number]
[2017-05-08] MEDS ORDERED: CYCL5TAB PO (12:19)
[2017-05-08] MEDS ORDERED: KETOROLAC 30 MG/ML VIAL IVP ONE (12:30)
[2017-05-08 12:52] VITALS: BP 114/79
== END 2017-05-08 12:52 | disposition home or self-care (01) ==
LOC: EDUNIT# 11:39 → ER 11:40
DX: M54.5 Low back pain (principal); J44.9 Chronic obstructive pulmonary disease, unspecified; I48.91 Unspecified atrial fibrillation; R60.9 Edema, unspecified; I10 Essential (primary) hypertension; G40.909 Epilepsy, unspecified, not intractable, without status epilepticus; K21.9 Gastro-esophageal reflux disease without esophagitis; M47.9 Spondylosis, unspecified; F41.9 Anxiety disorder, unspecified; F31.9 Bipolar disorder, unspecified; G47.9 Sleep disorder, unspecified; Z86.73 Personal history of transient ischemic attack (TIA), and cerebral infarction without residual deficits; Z95.2 Presence of prosthetic heart valve; Z95.5 Presence of coronary angioplasty implant and graft; Z90.710 Acquired absence of both cervix and uterus; Z90.49 Acquired absence of other specified parts of digestive tract; Z91.5 Personal history of self-harm
CPT/HCPCS: 72100; 96374

== ENCOUNTER 2017-05-16 21:23 | Inpatient (IN) | payer MEDICAID ==
[~2017-05-16] VITALS: Ht 160 cm; Wt 63.5 kg
[~2017-05-16 21:23] MED LIST changes: +CYCL5TAB PO
[2017-05-16] MEDS ORDERED: ADENOSINE 6 MG/2 ML (ADENOCARD) VIAL IV ONE (21:24)
[2017-05-16] MEDS ORDERED: DILTIAZEM 100 MG/VIAL (CARDIZEM) ADD-VANTAGE IV ONE (21:24)
[2017-05-16] MEDS ORDERED: DILTIAZEM 25 MG/5 ML INJ (CARDIZEM) VIAL ONE (21:24)
[2017-05-16] MEDS ORDERED: SODIUM CHLORIDE (ADD-VANTAGE) 100 ML IV ONE (21:24)
[2017-05-16 21:43] LABS: BASOPHILS # (AUTO) 0.1 10^3/uL (0.0-0.1); BASOPHILS % (AUTO) 0 % (0-10); EOSINOPHILS # (AUTO) 0.3 10^3/uL (0.0-0.3); EOSINOPHILS % (AUTO) 2 % (0-10); LYMPHOCYTES # (AUTO) 3.9 X 10^3 (1.0-4.0); LYMPHOCYTES % (AUTO) 24 % (12-44); MEAN CORPUSCULAR HEMOGLOBIN 27 PG (25-34); MEAN CORPUSCULAR HGB CONC 32 G/DL (32-36); MEAN CORPUSCULAR VOLUME 83 FL (80-99); MEAN PLATELET VOLUME 10.8 FL (7.4-10.4); MONOCYTES # (AUTO) 1.4 X 10^3 (0.0-1.0); MONOCYTES % (AUTO) 9 % (0-12); NEUTROPHILS % (AUTO) 66 % (42-75); PLATELET COUNT 334 10^3/uL (130-400); RED BLOOD COUNT 3.83 10^6/uL (4.35-5.85); RED CELL DISTRIBUTION WIDTH 16.6 % (10.0-14.5); WHITE BLOOD COUNT 16.7 10^3/uL (4.3-11.0)
[2017-05-16 21:47] LABS: INR 1.8 (0.8-1.4); PROTHROMBIN TIME PATIENT 20.8 SEC (12.2-14.7)
[2017-05-16 21:58] LABS: ALANINE AMINOTRANSFERASE 27 U/L (0-55); ALBUMIN 3.8 GM/DL (3.2-4.5); ANION GAP 11 MMOL/L (5-14); ASPARTATE AMINO TRANSFERASE 18 U/L (5-34); BILIRUBIN,TOTAL 0.4 MG/DL (0.1-1.0); BLOOD UREA NITROGEN 7 MG/DL (7-18); BUN/CREATININE RATIO 9; CALCIUM 8.6 MG/DL (8.5-10.1); CARBON DIOXIDE 21 MMOL/L (21-32); CHLORIDE 103 MMOL/L (98-107); CREATININE SERUM 0.79 MG/DL (0.60-1.30); GFR ESTIMATED > 60; GLUCOSE 148 MG/DL (70-105); POTASSIUM 4.1 MMOL/L (3.6-5.0); SODIUM 135 MMOL/L (135-145); TOTAL PROTEIN 7.2 GM/DL (6.4-8.2)
[2017-05-16 22:00] LABS: BAND NEUTROPHILS 2 %; BASOPHILS % (MANUAL) 0 %; EOSINOPHILS % (MANUAL) 0 %; LYMPHOCYTES % (MANUAL) 38 %; NEUTROPHILS % (MANUAL) 59 %; SPHEROCYTES SLIGHT; TARGET CELLS SLIGHT
[2017-05-16 22:06] LABS: MYOGLOBIN SERUM 17.8 NG/ML (10.0-92.0)
[2017-05-16 22:16] LABS: MAGNESIUM 1.9 MG/DL (1.8-2.4)
[2017-05-16] MEDS ORDERED: DIGOXIN 0.25 MG/ML (LANOXIN) 2 ML AMP IV ONE (22:30)
[2017-05-16] MEDS ORDERED: CATHETER FLUSH 10 ML SYR IV PRN (23:45)
[2017-05-16] MEDS ORDERED: NITROGLYCERIN SUBLINGUAL 0.4 MG TAB (NITROSTAT) SL PRN (23:45)
[2017-05-17] VITALS (16 sets, daily range): BP systolic 103–130; BP diastolic 59–82
[2017-05-17 00:12] LABS: PH,URINE 5 (5-9)
[2017-05-17 00:13] LABS: BILIRUBIN,URINE NEGATIVE (NEGATIVE); KETONES,URINE NEGATIVE (NEGATIVE); LEUKOCYTE ESTERASE ,URINE 1+ (NEGATIVE); NITRITE,URINE NEGATIVE (NEGATIVE); PROTEIN,URINE 2+ (NEGATIVE); SQUAMOUS EPITHELIAL CELL,UR 25-50 /HPF; UROBILINOGEN,URINE NORMAL (NORMAL)
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
[2017-05-17] MEDS ORDERED: DILTIAZEM 100 MG/VIAL (CARDIZEM) ADD-VANTAGE IV ONE (03:46)
[2017-05-17] MEDS ORDERED: SODIUM CHLORIDE (ADD-VANTAGE) 100 ML IV ONE (03:46)
[2017-05-17] MEDS ORDERED: DILTIAZEM DRIP 100 MG in SODIUM CHLORIDE (ADD-VANTAGE) 100 ML IV SCH (04:00)
[2017-05-17 04:13] LABS: BASOPHILS % (AUTO) 0 % (0-10); EOSINOPHILS # (AUTO) 0.1 10^3/uL (0.0-0.3); EOSINOPHILS % (AUTO) 1 % (0-10); LYMPHOCYTES # (AUTO) 4.5 X 10^3 (1.0-4.0); LYMPHOCYTES % (AUTO) 25 % (12-44); MEAN CORPUSCULAR HEMOGLOBIN 27 PG (25-34); MEAN CORPUSCULAR HGB CONC 32 G/DL (32-36); MEAN CORPUSCULAR VOLUME 83 FL (80-99); MEAN PLATELET VOLUME 11.2 FL (7.4-10.4); MONOCYTES # (AUTO) 1.6 X 10^3 (0.0-1.0); MONOCYTES % (AUTO) 9 % (0-12); NEUTROPHILS # (AUTO) 11.9 X 10^3 (1.8-7.8); NEUTROPHILS % (AUTO) 65 % (42-75); PLATELET COUNT 314 10^3/uL (130-400); WHITE BLOOD COUNT 18.2 10^3/uL (4.3-11.0)
[2017-05-17 04:22] LABS: INR 1.4 (0.8-1.4); PROTHROMBIN TIME PATIENT 16.5 SEC (12.2-14.7)
[2017-05-17 04:38] LABS: ALANINE AMINOTRANSFERASE 28 U/L (0-55); ALBUMIN 3.8 GM/DL (3.2-4.5); ANION GAP 11 MMOL/L (5-14); ASPARTATE AMINO TRANSFERASE 18 U/L (5-34); BILIRUBIN,TOTAL 0.5 MG/DL (0.1-1.0); BLOOD UREA NITROGEN 7 MG/DL (7-18); BUN/CREATININE RATIO 10; CALCIUM 8.4 MG/DL (8.5-10.1); CARBON DIOXIDE 21 MMOL/L (21-32); CHLORIDE 105 MMOL/L (98-107); CHOLESTEROL 233 MG/DL (< 200); DIRECT LDL 175 MG/DL (1-129); GFR ESTIMATED > 60; GLUCOSE 80 MG/DL (70-105); MAGNESIUM 1.8 MG/DL (1.8-2.4); PHOSPHORUS 2.9 MG/DL (2.3-4.7); POTASSIUM 4.1 MMOL/L (3.6-5.0); SODIUM 137 MMOL/L (135-145); TRIGLYCERIDES 212 MG/DL (<150); VLDL CHOLESTEROL 42 MG/DL (5-40)
[2017-05-17 04:45] LABS: DIGOXIN 0.98 NG/ML (0.80-2.00)
[2017-05-17 05:37] LABS: LYMPHOCYTES % (MANUAL) 29 %; NEUTROPHILS % (MANUAL) 62 %
[2017-05-17 05:38] LABS: ANISOCYTOSIS SLIGHT; HYPOCHROMASIA SLIGHT; POIKILOCYTOSIS SLIGHT; SCHISTOCYTES SLIGHT; TARGET CELLS SLIGHT
[2017-05-17] MEDS ORDERED: POTASSIUM CL 10MEQ/50ML IVPB 50 ML IV SCH (06:00)
[2017-05-17] MEDS ORDERED: MAGNESIUM 1 GM/100 ML IVPB 100 ML IV SCH (06:00)
[2017-05-17] MEDS ORDERED: CATHETER FLUSH 10 ML SYR IV SCH (06:00)
[2017-05-17] MEDS ORDERED: KCL 20 MEQ TAB (K-DUR) PO SCH (06:00)
--- NOTE | 2017-05-17 07:25 | Diagnostic Imaging Report ---
INDICATION: Heart racing. TECHNIQUE: Single-view chest 10:11 PM. CORRELATION STUDY: 03/02/2017. FINDINGS: Poststernotomy changes are present. Left-sided pacemaker is unchanged. Extensive thoracic spinal fixation rods are present. Heart size enlarged. Vasculature slightly prominent. Lung osborne overall appearing to be generally clear. No definitive infiltrate. IMPRESSION: Cardiac enlargement without overt failure. Dictated by: Dictated on workstation # [id number]
--- NOTE | 2017-05-17 08:41 | Consultation-Cardiology ---
HPI-Cardiology Cardiology Consultation: Date of Consultation 05/17/17 Time Seen by Provider: 08:36 Date of Admission 05-16-17 Attending Physician Cindy Dan DO Admitting Physician Mis,[facility] Consult[facility] Physician Maverick White MD FACP [facility] Primary urban designer: Dr Harden Primary administrative services specialist: Dr Salomon HPI: Chief Complaint: SVT Ms. Sosa is a 36 year old female who has been admitted to ICU 12 from the ED. She reports yesterday she was lying on her couch at home with her dog and had a sudden onset of rapid HR. She states it persisted throughout the day. She began to feel nauseated and diaphoretic. She reports some chest pressure. She called EMS and was brought to the ED. She states she had been feeling good prior to this event. Her primary urban designer is Dr. Torres at [facility] in [place], [place]. She reports she has not missed any of her medication dosages. She reports she has a "worker" that brings her/her medications twice a day to ensure she takes them d/t previous suicide attempts. She reports she has had two tricuspid valve replacements and is awaiting another one to be done at [facility], however she needs to be "drug free" for 6 months before she can have the surgery. She smokes cigs approx 1 PPD. She does not report any further episodes of palpitations. No further c/o chest discomfort or dyspnea. No c/o LE edema. Review of Systems-Cardiology Review of Systems Constitutional: As described under HPI Eyes: No As described under HPI, No no symptoms reported, No blindness, No blurred vision, No contact lenses, No drainage, No decreased acuity, No foreign body sensation, No pain, No vision change Ears/Nose/Throat: No As described under HPI, No no symptoms reported, No chronic hearing loss, No ear discharge, No ear pain, No nasal drainage, No ulcerations Respiratory: No no symptoms reported, As described under HPI, No As described under HPI, No cough, No orthopnea, No shortness of breath, No SOB with excertion Cardiovascular: No no symptoms reported, As described under HPI, No As described under HPI, No chest pain, No edema, No irregular heart rate, No lightheadedness, No palpitations Gastrointestinal: No no symptoms reported, No As described under HPI, No abdomen distended, No abdominal pain, No blood streaked bowels, No constipation , No diarrhea, No nausea, No vomiting, No stool coloration changes Genitourinary: No As described under HPI, No burning, No dysuria, No discharge , No frequency, No flank pain, No hematuria, No urgency : Yes : No Skin: No rash, No skin related problems, No ulcerations Psychiatric/Neurological: No anxiety, No depression, No focal weakness, No seizure, No syncope Hematologic: No bleeding abnormalities SVG-[id number]-Nansdb Hx Patient Social History Alcohol Use: Past History (4-6 PINTS OF LIQUOR PLUS UNKNOWN AMOUNT OF BEER DAILY BY HISTORY-- CLAIMS NO RECENT USE, PER PT ON 05/16/17) Recreational Drug Use: Yes (THC, METH, PILLS--EXTENSIVE USE WITH MULTIPLE OVERDOSES-BOTH INTENTIONAL AND DUE TO ABUSE) Drug of Choice: THC, METH, PILLS Smoking Status: Current Everyday Smoker (2 PPD) Type Used: Cigarettes 2nd Hand Smoke Exposure: Yes Recent Foreign Travel: No Recent Infectious Disease Expo: No Hospitalization with Isolation: Denies Physical Abuse Screen: No Sexual Abuse: No Immunizations Up To Date Tetanus Booster (TDap): Unknown Date of Pneumonia Vaccine: Oct 22, 2012 Date of Influenza Vaccine: Aug 22, 2015 Past Medical History PMH As described under Assessment. Family Medical History Family Medical History: No reported family h/o premature CAD or SCD. Family History: 19 MOTHER Alcoholism Diabetes mellitus Drug abuse FH: cancer of genital organ Relation not specified for: Depression Depression Allergies and Home Medications Allergies Coded Allergies: asenapine (Unverified Allergy, Severe, TOUNGE SWELLING, 04/01/15) ondansetron (Verified Allergy, Mild, 06/24/14) Penicillins (Unverified Allergy, Unknown, 06/07/14) Sulfa (Sulfonamide Antibiotics) (Unverified Allergy, Unknown, 04/22/11) erythromycin base (Verified Allergy, Unknown, 11/26/05) prochlorperazine (Verified Allergy, Unknown, 01/31/06) promethazine (Verified Allergy, Unknown, 01/31/06) promethazine HCl (Unverified Allergy, Unknown, 06/07/14) propoxyphene (Verified Allergy, Unknown, 11/26/05) Home Medications Acetaminophen 500 Mg Tablet, 500-1,000 MG PO EVERY 4-6 HOURS PRN for PAIN-MILD, (Reported) Cyclobenzaprine HCl 10 Mg Tablet, 10 MG PO TID PRN for MUSCLE SPASMS, (Reported) Cyclobenzaprine HCl 5 Mg Tablet, 5 MG PO TID, #10 Prescribed by: SUDHIR SCOTT on 05/08/17 1219 Diclofenac Sodium 75 Mg Tablet.dr, 75 MG PO BID, (Reported) Digoxin 125 Mcg Tablet, 125 MCG PO DAILY, (Reported) Estradiol 2 Mg Tablet, 2 MG PO DAILY, (Reported) Furosemide 40 Mg Tablet, 40 MG PO DAILY, (Reported) Levetiracetam 750 Mg Tablet, 750 MG PO BID, (Reported) Loratadine 10 Mg Tablet, 10 MG PO HS, (Reported) Meclizine HCl 25 Mg Tablet, 25 MG PO DAILY, (Reported) Metoprolol Tartrate 25 Mg Tablet, 12.5 MG PO DAILY, (Reported) TAKES 1/2 (25MG) TABLET Olanzapine 10 Mg Tab.rapdis, 5 MG PO BID, (Reported) TAKES 1/2 (10MG) TABLET Omeprazole 40 Mg Capsule.dr, 40 MG PO HS, (Reported) Pantoprazole Sodium 40 Mg Tablet.dr, 40 MG PO DAILY, (Reported) Physical Exam-Cardiology Physical Exam Vital Signs/I&O Vital Sign - Last 12Hours 05/16/17 05/17/17 05/17/17 05/17/17 22:45 00:00 00:17 00:24 Temp 98.6 Pulse 71 Resp 17 B/P (MAP) 113/75 O2 Delivery Nasal Cannula Nasal Cannula Nasal Cannula Nasal Cannula O2 Flow Rate 2.00 2.00 2.00 2.00 05/17/17 05/17/17 05/17/17 05/17/17 00:30 01:00 01:00 01:30 Pulse 60 60 60 71 Resp 18 15 25 B/P (MAP) 104/67 112/68 112/75 Pulse Ox 96 96 93 O2 Delivery Nasal Cannula Nasal Cannula Nasal Cannula O2 Flow Rate 2.00 2.00 2.00 05/17/17 05/17/17 05/17/17 05/17/17 02:00 02:30 03:00 03:55 Pulse 60 60 85 89 Resp 16 16 26 B/P (MAP) 108/68 106/71 118/78 Pulse Ox 93 94 92 O2 Delivery Nasal Cannula Nasal Cannula Nasal Cannula O2 Flow Rate 2.00 2.00 2.00 05/17/17 05/17/17 05/17/17 05/17/17 03:58 04:00 04:00 04:00 Temp 98.7 Pulse 89 61 Resp 18 B/P (MAP) 103/64 Pulse Ox 94 91 O2 Delivery Nasal Cannula Nasal Cannula Nasal Cannula O2 Flow Rate 2.00 2.00 2.00 FiO2 97 05/17/17 05/17/17 05/17/17 05/17/17 05:00 06:00 07:00 07:53 Pulse 65 62 68 Resp 23 27 B/P (MAP) 116/75 112/69 Pulse Ox 95 96 O2 Delivery Nasal Cannula Nasal Cannula Nasal Cannula O2 Flow Rate 2.00 2.00 2.00 05/17/17 05/17/17 07:55 08:00 Temp 98.4 Pulse 69 Resp 18 B/P (MAP) 110/59 Pulse Ox 94 97 O2 Delivery Nasal Cannula Nasal Cannula O2 Flow Rate 2.00 2.00 FiO2 97 Capillary Refill : Less Than 3 Seconds Constitutional: appears stated age, No apparent distress, well-developed, well- nourished HEENT: PERRL, No discharge, hearing is well preserved, oral hygience is good, No ulceration, No xanthelasmas are seen Neck: No carotid bruit, carotid pulses are 2 + bilaterally Respiratory: wheezing (expiratory, faint), other (prolonged expiratory phase) Cardiovascular: regular rate-rhythm, No JVD, S1 and S2 Gastrointestinal: No tender, soft, round, audible bowel sounds, No spleenomegaly Extremities: No clubbing, No cyanosis, No significant edema Neurologic/Psychiatric: alert, oriented x 3, power is 5/5 both on sides Skin: No rash, No ulcerations Data Review Labs Laboratory Tests 05/16/17 21:28: White Blood Count 16.7H, Red Blood Count 3.83L, Hemoglobin 10.3L, Hematocrit 32L , Mean Corpuscular Volume 83, Mean Corpuscular Hemoglobin 27, Mean Corpuscular Hemoglobin Concent 32, Red Cell Distribution Width 16.6H, Platelet Count 334, Mean Platelet Volume 10.8H, Neutrophils (%) (Auto) 66, Lymphocytes (%) (Auto) 24 , Monocytes (%) (Auto) 9, Eosinophils (%) (Auto) 2, Basophils (%) (Auto) 0, Neutrophils # (Auto) 11.0H, Lymphocytes # (Auto) 3.9, Monocytes # (Auto) 1.4H, Eosinophils # (Auto) 0.3, Basophils # (Auto) 0.1, Neutrophils % (Manual) 59, Lymphocytes % (Manual) 38, Monocytes % (Manual) 1, Eosinophils % (Manual) 0, Basophils % (Manual) 0, Band Neutrophils 2, Spherocytes SLIGHT, Target Cells SLIGHT, Elliptocytes SLIGHT, Prothrombin Time 20.8H, INR Comment 1.8H, Activated Partial Thromboplast Time 30, Sodium Level 135, Potassium Level 4.1, Chloride Level 103, Carbon Dioxide Level 21, Anion Gap 11, Blood Urea Nitrogen 7 , Creatinine 0.79, Estimat Glomerular Filtration Rate > 60, BUN/Creatinine Ratio 9, Glucose Level 148H, Calcium Level 8.6, Magnesium Level 1.9, Total Bilirubin 0.4, Aspartate Amino Transf (AST/SGOT) 18, Alanine Aminotransferase ( ALT/SGPT) 27, Alkaline Phosphatase 86, Myoglobin 17.8, Troponin I < 0.30, B- Type Natriuretic Peptide 87.3, Total Protein 7.2, Albumin 3.8, Digoxin Level 0.48L 05/16/17 22:58: Urine Color YELLOW, Urine Clarity CLEAR, Urine pH 5, Urine Specific [place] 1.030H, Urine Protein 2+H, Urine Glucose (UA) NEGATIVE, Urine Ketones NEGATIVE, Urine Nitrite NEGATIVE, Urine Bilirubin NEGATIVE, Urine Urobilinogen NORMAL, Urine Leukocyte Esterase 1+H, Urine RBC (Auto) NEGATIVE, Urine RBC NONE, Urine WBC 2-5, Urine Squamous Epithelial Cells 25-50H, Urine Crystals NONE, Urine Bacteria FEWH, Urine Casts NONE, Urine Mucus NEGATIVE, Urine Culture Indicated NO, Urine Opiates Screen NEGATIVE, Urine Oxycodone Screen NEGATIVE, Urine Methadone Screen NEGATIVE, Urine Propoxyphene Screen NEGATIVE, Urine Barbiturates Screen NEGATIVE, Ur Tricyclic Antidepressants Screen POSITIVEH, Urine Phencyclidine Screen NEGATIVE, Urine Amphetamines Screen NEGATIVE, Urine Methamphetamines Screen NEGATIVE, Urine Benzodiazepines Screen NEGATIVE, Urine Cocaine Screen NEGATIVE, Urine Cannabinoids Screen NEGATIVE 05/17/17 03:31: White Blood Count 18.2H, Red Blood Count 3.70L, Hemoglobin 9.9L, Hematocrit 31L , Mean Corpuscular Volume 83, Mean Corpuscular Hemoglobin 27, Mean Corpuscular Hemoglobin Concent 32, Red Cell Distribution Width 17.0H, Platelet Count 314, Mean Platelet Volume 11.2H, Neutrophils (%) (Auto) 65, Lymphocytes (%) (Auto) 25 , Monocytes (%) (Auto) 9, Eosinophils (%) (Auto) 1, Basophils (%) (Auto) 0, Neutrophils # (Auto) 11.9H, Lymphocytes # (Auto) 4.5H, Monocytes # (Auto) 1.6H, Eosinophils # (Auto) 0.1, Basophils # (Auto) 0.0, Neutrophils % (Manual) 62, Lymphocytes % (Manual) 29, Monocytes % (Manual) 9, Target Cells SLIGHT, Prothrombin Time 16.5H, INR Comment 1.4, Activated Partial Thromboplast Time 32 , Sodium Level 137, Potassium Level 4.1, Chloride Level 105, Carbon Dioxide Level 21, Anion Gap 11, Blood Urea Nitrogen 7, Creatinine 0.70, Estimat Glomerular Filtration Rate > 60, BUN/Creatinine Ratio 10, Glucose Level 80, Calcium Level 8.4L, Magnesium Level 1.8, Total Bilirubin 0.5, Aspartate Amino Transf (AST/SGOT) 18, Alanine Aminotransferase (ALT/SGPT) 28, Alkaline Phosphatase 83, Troponin I < 0.30, Total Protein 7.0, Albumin 3.8, Digoxin Level 0.98, Hypochromasia SLIGHT, Poikilocytosis SLIGHT, Anisocytosis SLIGHT, Schistocytes SLIGHT, Phosphorus Level 2.9, Triglycerides Level 212H, Cholesterol Level 233H, LDL Cholesterol Direct 175H, VLDL Cholesterol 42H, HDL Cholesterol 36L 05/17/17 09:26: Magnesium Level 1.8 Radiology NAME: [facility] REC#: [id number] PT STATUS: ADM IN : 1980 PHYSICIAN: SUDHIR SCOTT APRN ADMIT DATE: 05/16/17/ICU Draft Date of Exam:05/16/17 CHEST 1 VIEW, AP/PA ONLY INDICATION: Heart racing. TECHNIQUE: Single-view chest 10:11 PM. CORRELATION STUDY: 03/02/2017. FINDINGS: Poststernotomy changes are present. Left-sided pacemaker is unchanged. Extensive thoracic spinal fixation rods are present. Heart size enlarged. Vasculature slightly prominent. Lung osborne overall appearing to be generally clear. No definitive infiltrate. IMPRESSION: Cardiac enlargement without overt failure. Dictated on workstation # [id number] Dict: 05/17/17719 Trans: 05/17/17723 [id number] Interpreted by: TEODORO HOLLIS DO Electronically signed by: ECG Impression ECG Comment V-paced with a RBBB A/P-Cardiology Assessment/Admission Diagnosis H/o PAF and PSVT SVT - converted to SR - during this admission TSH 1.55 on 04-22-17 Leukocytosis - Medical Services History of tricuspid valve replacement, done twice, history of Melchor anomaly. Awaiting repeat valve surgery Echocardiogram of August 2015 (Dr Hoffman): Systolic function appeared to be normal. Estimated ejection fraction 60%. The left atrium is normal in size. No clot or thrombus were seen within the left atrium. The right atrium and right ventricle are dilated. Mitral valve is calcified with mild mitral regurgitation noted by color Doppler flow. No mitral valve prolapse. No mitral valve stenosis. Aortic valve is calcified, leaflets were not well visualized. There is no significant aortic stenosis or regurgitation was seen. Evaluation of the tricuspid valve shows tricuspid prosthetic valve in the tricuspid position, appeared to be functioning normally, the peak gradient across the tricuspid valve is 15 mmHg, tricuspid valve area was not calculated on this study. Doppler across tricuspid valve estimated the peak gradient of 15 mmHg. Pulmonic valve was not well visualized. No pericardial effusion. H/O Illicit drug use with previous intentional drug overdoses d/t suicide attempts History of dual-chamber pacemaker - followed by Dr. Torres at [facility] in [place], [place] History of multiple back surgeries. OAC with Xarelto, managed by her primary urban designer History of syncope History of total abdominal hysterectomy, bilateral salpingo-oophorectomy H/O non-compliance with medications, f/u and medical instructions Discussion and Recomendations Complex management issue. Episode of SVT yesterday for which she has converted to SR while on Cardizem gtt. She is maintaining SR. We will stop the Cardizem IV and switch her to oral. She is on Digoxin and Metoprolol tartrate (25mg, 1/ 2 tab BID). We will continue her home medications. She has a dual chamber PPM which is followed by her primary urban designer. We will do an echocardiogram to evaluate LVEF and valvular status. We will continue OAC with Xarelto. Further recommendations will be based on her hospital course. We would like to thank the Hospitalist service for this consult. This consult is being scribed by Marylou Rondon APRN on behalf of Dr. White after discussion regarding plan of care. Clinical Quality Measures DVT/VTE Risk/Contraindication: Risk Factor Score Per Nursin RFS Level Per Nursing on Admit: 4+=Very High Physician Assessment Physician Assessment No symptoms. Wishes to go home No fever during this admission Cor: S1 S2 reg Lungs: clear Legs: no edema A&R * As documented in our note above, that I updated at the time of this writing, and as noted below * I advised that she quit smoking immediately and completely and that she continue to refrain from street drug use * We are adding long-acting dilt to the regimen * We have advised f/u with primary urban designer and her EP KENZIE * She fully understands and states she will comply * Eval for leucocytosis is with the Hosp service (Dr Dan) DONNA RONDON May 17, 2017 08:41 MAVERICK WHITE MD FACP FAC CCDS May 17, 2017 10:02
--- NOTE | 2017-05-17 08:43 | Diagnostic Imaging Report ---
INDICATION: Chest pain. TECHNIQUE: Single-view chest 5:12 AM. CORRELATION STUDY: 05/16/2017. FINDINGS: Poststernotomy changes. Left-sided pacemaker stable. Cardiac enlargement. Vasculature slightly prominent and perhaps slightly increased. Atelectasis or infiltrate suggested about the right lung base. Extensive thoracic spinal fixation hardware is present. IMPRESSION: Cardiac enlargement with vasculature slightly prominent/ perhaps minimally increased. There also appears to be some atelectasis or early infiltrate in the right lung base. Followup imaging as clinically warranted. Dictated by: Dictated on workstation # [id number]
[2017-05-17] MEDS ORDERED: ASPIRIN E.C. 325 MG (ECOTRIN) TABLET PO SCH (09:00)
[2017-05-17] MEDS ORDERED: DILTIAZEM 120 MG (CARDIZEM CD) CAP PO SCH (09:00)
[2017-05-17] MEDS ORDERED: RIVA20TA PO (10:28)
[2017-05-17] MEDS ORDERED: CETI10TA17 PO (10:28)
[2017-05-17] MEDS ORDERED: BENZ1TAB6 PO (10:28)
[2017-05-17] MEDS ORDERED: HALO5TAB PO (10:28)
[2017-05-17] MEDS ORDERED: LEVE10006 PO (10:28)
[2017-05-17] MEDS ORDERED: GUAI-836 PO (10:31)
[2017-05-17] MEDS ORDERED: CALC-778 PO (10:31)
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
[2017-05-17] MEDS ORDERED: GUAIFEN PO PRN (11:15)
[2017-05-17] MEDS ORDERED: ACETAMINOPHEN 500 MG TAB (TYLENOL) PO PRN (11:15)
[2017-05-17] MEDS ORDERED: CALCIUM CARBONATE 500 MG (TUMS) TAB.CHEW PO PRN (11:15)
[2017-05-17] MEDS ORDERED: ACETAMINOPHN PO PRN (11:15)
[2017-05-17] MEDS ORDERED: [UNRECOGNIZED DRUG - OTHER] PO PRN (11:15)
[2017-05-17] MEDS ORDERED: CYCLOBENZAPRINE 10 MG (FLEXERIL) TAB PO PRN (11:15)
[2017-05-17] MEDS ORDERED: PHENYLEPH PO PRN (11:15)
[2017-05-17] MEDS ORDERED: DILT180C67 PO (12:49)
[2017-05-17] MEDS ORDERED: NON-FORMULARY MEDICATION 1 EA EA (Omeprazole 40 MG) PO SCH (21:00)
[2017-05-17] MEDS ORDERED: HALOPERIDOL 5 MG (HALDOL) TAB PO SCH (21:00)
[2017-05-17] MEDS ORDERED: LEVETIRACETAM 1,000 MG (KEPPRA) TABLET PO SCH (21:00)
[2017-05-17] MEDS ORDERED: ETODOLAC 300 MG (LODINE) CAP PO SCH (21:00)
[2017-05-17] MEDS ORDERED: BENZTROPINE MESYLATE 1 MG (COGENTIN) TAB PO SCH (21:00)
[2017-05-18] MEDS ORDERED: DIGOXIN 0.125 MG (LANOXIN) TAB PO SCH (09:00)
[2017-05-18] MEDS ORDERED: RIVAROXABAN 20 MG TABLET (XARELTO) PO SCH (09:00)
[2017-05-18] MEDS ORDERED: meTOprolol TARTRATE 25 MG (LOPRESSOR) TABLET PO SCH (09:00)
[2017-05-18] MEDS ORDERED: FUROSEMIDE 40 MG (LASIX) TAB PO SCH (09:00)
[2017-05-18] MEDS ORDERED: PANTOPRAZOLE 40 MG (PROTONIX) TAB PO SCH (09:00)
[2017-05-18] MEDS ORDERED: DILTIAZEM 120 MG (CARDIZEM CD) CAP PO SCH (09:00)
[2017-05-18] MEDS ORDERED: MECLIZINE 25 MG (ANTIVERT) TAB PO SCH (09:00)
[2017-05-18] MEDS ORDERED: ESTRADIOL 1 MG TAB (ESTRACE) PO SCH (09:00)
[2017-05-18] MEDS ORDERED: LORATADINE (CLARITIN) 10 MG TAB PO SCH (09:00)
== END 2017-05-17 13:45 | disposition home or self-care (01) | DRG 310 ==
LOC: EDUNIT# 21:23 → ER 21:24 → ICU 22:10
PROVIDERS: ADMIT Internal Medicine; ATTEND Internal Medicine
DX: I47.1 Supraventricular tachycardia (principal); I45.10 Unspecified right bundle-branch block; I48.0 Paroxysmal atrial fibrillation; J44.9 Chronic obstructive pulmonary disease, unspecified; I10 Essential (primary) hypertension; F17.210 Nicotine dependence, cigarettes, uncomplicated; K21.9 Gastro-esophageal reflux disease without esophagitis; G40.909 Epilepsy, unspecified, not intractable, without status epilepticus; N31.9 Neuromuscular dysfunction of bladder, unspecified; F41.9 Anxiety disorder, unspecified; D72.829 Elevated white blood cell count, unspecified; Z95.2 Presence of prosthetic heart valve; Z95.0 Presence of cardiac pacemaker; Z91.14 Patient's other noncompliance with medication regimen
CPT/HCPCS: 36415; 71010; 80053; 80061; 80162; 80306; 81000; 83735; 83874; 83880; 84100; 84484; 85007; 85027; 85610; 85730; 93005; 93041; 93306; 96374; 96375

== ENCOUNTER 2017-06-05 08:27 | Emergency (ER) | payer MEDICAID ==
[~2017-06-05] VITALS: Ht 160 cm; Wt 63.5 kg
[~2017-06-05 08:27] MED LIST changes: +CALC-778 PO; +DILT180C67 PO; +GUAI-836 PO; +LEVE10006 PO
--- OUTSIDE RECORDS SUMMARY | 2017-06-05 08:33 | XMS REPORT | Clinical Summary ---
Author Author [facility] Organization [facility] Address Unknown Phone Unavailable Care Team Providers Care Motor Man Name Role Phone PCP Unavailable Source Comments Some departments are not documenting in the electronic medical record. If you do not see the information that you expected, contact Release of Information in the Health Information Management department at [phone] for further assistance in locating additional records.[facility] Allergies Active Allergy Reactions Severity Noted Date Comments Acetaminophen HIVES Medium 12/29/2014 tylenol 3 Adhesive RASH 08/15/2011 Specifically surgical tape-"rips my skin off" Amoxicillin VOMITING, ITCHING 03/01/2010 Prochlorperazine SEE COMMENTS 07/07/2010 EPS symptoms Edisylate Propoxyphene NAUSEA AND VOMITING 03/01/2010 N-Acetaminophen Erythromycin VOMITING 03/01/2010 Droperidol AGITATION 03/01/2010 EPS symptoms Peas HIVES, EDEMA 11/13/2012 Penicillins HIVES, NAUSEA AND 08/15/2011 VOMITING Promethazine 03/01/2010 "makes eyes funny"; EPS Sulfa (Sulfonamide VOMITING 03/01/2010 Antibiotics) Current Medications Prescription Sig. Disp. Refills Start [...] right wrist 09/04/2011 Malunion of fracture 09/04/2011 Family History Medical History Relation Name Comments Cancer Mother Relation Name Status Comments Mother Social History Tobacco Use Types Packs/Day Years Used Date Current Every Day Smoker Cigarettes 2 18 Smokeless Tobacco: Never Used Tobacco Cessation: Ready to Quit: No; Counseling Given: Yes Alcohol Use Drinks/Week oz/Week Comments No 0 Standard 0.0 drinks or equivalent Sex Assigned at Date Recorded Not on file Last Filed Vital Signs Vital Sign Reading Time Taken Blood Pressure 120/78 06/13/2016 10:10 AM CDT Pulse 87 06/13/2016 11:26 AM CDT Temperature 36.4 C (97.5 F) 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
[2017-06-05] MEDS ORDERED: KETOROLAC 30 MG/ML VIAL IVP STA (09:40)
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
[2017-06-05] MEDS ORDERED: PRD20T PO (09:59)
[2017-06-05] MEDS ORDERED: CYCL10TA9 PO (09:59)
[2017-06-05 10:11] VITALS: BP 132/94
== END 2017-06-05 10:12 | disposition home or self-care (01) ==
LOC: EDUNIT# 08:27 → ER 08:28
DX: Z04.3 Encounter for examination and observation following other accident (principal)
CPT/HCPCS: 96374; 99282

== ENCOUNTER 2017-06-12 01:23 | Emergency (ER) | payer MEDICAID ==
[~2017-06-12] VITALS: Ht 160 cm; Wt 71.2 kg
--- OUTSIDE RECORDS SUMMARY | 2017-06-12 01:30 | XMS REPORT | Clinical Summary ---
Author Author [facility] Organization [facility] Address Unknown Phone Unavailable Care Team Providers Care Sports Centre Manager Name Role Phone PCP Unavailable Source Comments Some departments are not documenting in the electronic medical record. 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
[2017-06-12] MEDS ORDERED: KETOROLAC 30 MG/ML VIAL IVP STA (01:39)
[2017-06-12 01:59] LABS: BASOPHILS # (AUTO) 0.1 10^3/uL (0.0-0.1); BASOPHILS % (AUTO) 0 % (0-10); EOSINOPHILS # (AUTO) 0.6 10^3/uL (0.0-0.3); EOSINOPHILS % (AUTO) 2 % (0-10); LYMPHOCYTES # (AUTO) 4.6 X 10^3 (1.0-4.0); LYMPHOCYTES % (AUTO) 17 % (12-44); MEAN CORPUSCULAR HEMOGLOBIN 27 PG (25-34); MEAN CORPUSCULAR HGB CONC 33 G/DL (32-36); MEAN CORPUSCULAR VOLUME 83 FL (80-99); MEAN PLATELET VOLUME 10.1 FL (7.4-10.4); MONOCYTES # (AUTO) 1.8 X 10^3 (0.0-1.0); MONOCYTES % (AUTO) 7 % (0-12); NEUTROPHILS # (AUTO) 19.6 X 10^3 (1.8-7.8); NEUTROPHILS % (AUTO) 73 % (42-75); PLATELET COUNT 500 10^3/uL (130-400); RED BLOOD COUNT 4.17 10^6/uL (4.35-5.85); RED CELL DISTRIBUTION WIDTH 19.2 % (10.0-14.5); WHITE BLOOD COUNT 26.7 10^3/uL (4.3-11.0)
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
[2017-06-12 02:14] LABS: BILIRUBIN,URINE NEGATIVE (NEGATIVE); KETONES,URINE NEGATIVE (NEGATIVE); LEUKOCYTE ESTERASE ,URINE 1+ (NEGATIVE); NITRITE,URINE NEGATIVE (NEGATIVE); PH,URINE 6 (5-9); PROTEIN,URINE NEGATIVE (NEGATIVE); UROBILINOGEN,URINE NORMAL (NORMAL)
[2017-06-12] MEDS ORDERED: DILT180C54 (02:17)
[2017-06-12 02:22] LABS: BAND NEUTROPHILS 0 %; LYMPHOCYTES % (MANUAL) 20 %; NEUTROPHILS % (MANUAL) 74 %
[2017-06-12 02:23] LABS: ALANINE AMINOTRANSFERASE 19 U/L (0-55); ALBUMIN 4.3 GM/DL (3.2-4.5); ANION GAP 17 MMOL/L (5-14); ASPARTATE AMINO TRANSFERASE 21 U/L (5-34); BASOPHILS % (MANUAL) 0 %; BILIRUBIN,TOTAL 0.3 MG/DL (0.1-1.0); BLOOD UREA NITROGEN 11 MG/DL (7-18); BUN/CREATININE RATIO 13; CARBON DIOXIDE 13 MMOL/L (21-32); CHLORIDE 109 MMOL/L (98-107); CREATININE SERUM 0.82 MG/DL (0.60-1.30); EOSINOPHILS % (MANUAL) 3 %; GFR ESTIMATED > 60; GLUCOSE 112 MG/DL (70-105); MAGNESIUM 2.9 MG/DL (1.8-2.4); POTASSIUM 4.2 MMOL/L (3.6-5.0); SODIUM 139 MMOL/L (135-145); TOTAL PROTEIN 8.4 GM/DL (6.4-8.2)
[2017-06-12 02:29] LABS: ANISOCYTOSIS MODERATE; HYPOCHROMASIA SLIGHT; MICROCYTOSIS SLIGHT; POIKILOCYTOSIS MODERATE; SCHISTOCYTES SLIGHT; TARGET CELLS SLIGHT
[2017-06-12 02:31] LABS: WBC,URINE RARE /HPF
[2017-06-12] MEDS ORDERED: HYDROcodone/APAP 7.5 MG/325 MG (LORTAB, LORCET PLUS) TABLET PO STA (03:19)
[2017-06-12 03:37] VITALS: BP 133/78
--- NOTE | 2017-06-12 08:31 | Diagnostic Imaging Report ---
PROCEDURE: CT abdomen and pelvis without contrast. TECHNIQUE: Multiple contiguous axial images were obtained through the abdomen and pelvis without the use of intravenous contrast. INDICATION: Pain, cramping and bloating. Exam compared to 03/24/2017. FINDINGS: The gallbladder is surgically absent. No focal hepatic abnormality. No biliary ductal dilatation. There is elevated intraluminal fluid load throughout the length of large bowel which may reflect hypermodal or diarrheal state. There is some fluid within the small bowel without significant small bowel luminal distention. No transition zone or differential air-fluid levels. No findings of a mechanical obstruction. No perienteric or pericolonic edema. There is no focal inflammatory process. No bowel wall thickening. The kidneys unobstructed and nonacute. The aorta is nonaneurysmal. No free air. The partially visualized heart is enlarged not obviously changed from priors. Multilevel postoperative spinal changes again demonstrated. No acute osseous pathology. The lung bases nonacute. IMPRESSION: Prominent colonic lumen filled with fluid raising the question of hypermodal or diarrheal state. There was however no findings of focal or generalized colitis and no resultant obstruction, perforation, abscess, fluid collection or focal inflammatory process. No other substantial finding. Dictated by: Dictated on workstation # [id number]
[2017-08-06] MEDS ORDERED: POTA10TA36 PO (09:47)
[2017-08-06] MEDS ORDERED: NABU500T PO (09:47)
[2017-08-06] MEDS ORDERED: DILT180C54 PO (09:47)
[2017-08-06] MEDS ORDERED: HYDR-700 PO (09:47)
[2017-08-06] MEDS ORDERED: LACT1CAP76 PO (09:47)
[2017-08-06] MEDS ORDERED: CYCL10TA9 PO (09:47)
[2017-08-06] MEDS ORDERED: BENZ1TAB6 PO (10:05)
[2017-08-06] MEDS ORDERED: OMEP40CA36 PO (10:05)
[2017-08-26] MEDS ORDERED: Flexeril (10:54)
== END 2017-06-12 03:37 | disposition home or self-care (01) ==
LOC: EDUNIT# 01:23 → ER 01:25
DX: R10.9 Unspecified abdominal pain (principal); R19.7 Diarrhea, unspecified; F31.9 Bipolar disorder, unspecified; F43.10 Post-traumatic stress disorder, unspecified; F41.9 Anxiety disorder, unspecified; M47.9 Spondylosis, unspecified; K21.9 Gastro-esophageal reflux disease without esophagitis; G40.909 Epilepsy, unspecified, not intractable, without status epilepticus; I48.91 Unspecified atrial fibrillation; I10 Essential (primary) hypertension; J44.9 Chronic obstructive pulmonary disease, unspecified; F15.90 Other stimulant use, unspecified, uncomplicated; F12.90 Cannabis use, unspecified, uncomplicated; Z87.891 Personal history of nicotine dependence; Z87.828 Personal history of other (healed) physical injury and trauma; Z90.49 Acquired absence of other specified parts of digestive tract; Z95.0 Presence of cardiac pacemaker; Z90.710 Acquired absence of both cervix and uterus; Z87.19 Personal history of other diseases of the digestive system; Z91.5 Personal history of self-harm; Z95.2 Presence of prosthetic heart valve; Z98.1 Arthrodesis status
CPT/HCPCS: 36415; 74176; 80053; 81000; 83735; 85007; 85027; 96374

== ENCOUNTER 2017-06-14 03:37 | Emergency (ER) | payer MEDICAID ==
[~2017-06-14] VITALS: Ht 160 cm; Wt 71.2 kg
[~2017-06-14 03:37] MED LIST changes: +DILT180C54
--- OUTSIDE RECORDS SUMMARY | 2017-06-14 03:44 | XMS REPORT | Clinical Summary ---
Author Author [facility] Organization [facility] Address Unknown Phone Unavailable Care Team Providers Care Bolt Cutter Name Role Phone PCP Unavailable Source Comments Some departments are not documenting in the electronic medical record. If you do not see the information that you expected, contact Release of Information in the Health Information Management department at [phone] for further assistance in locating additional records.[facility] Allergies Active Allergy Reactions Severity Noted [...] 36.4 C (97.5 F) 12/16/2014 10:45 AM SILICATOR Respiratory Rate - - Oxygen Saturation 95% [...]
[2017-06-14 04:02] LABS: BASOPHILS # (AUTO) 0.1 10^3/uL (0.0-0.1); BASOPHILS % (AUTO) 0 % (0-10); EOSINOPHILS # (AUTO) 0.6 10^3/uL (0.0-0.3); EOSINOPHILS % (AUTO) 5 % (0-10); LYMPHOCYTES # (AUTO) 4.9 X 10^3 (1.0-4.0); LYMPHOCYTES % (AUTO) 42 % (12-44); MEAN CORPUSCULAR HEMOGLOBIN 27 PG (25-34); MEAN CORPUSCULAR HGB CONC 33 G/DL (32-36); MEAN CORPUSCULAR VOLUME 82 FL (80-99); MEAN PLATELET VOLUME 9.5 FL (7.4-10.4); MONOCYTES # (AUTO) 1.5 X 10^3 (0.0-1.0); MONOCYTES % (AUTO) 13 % (0-12); NEUTROPHILS # (AUTO) 4.6 X 10^3 (1.8-7.8); NEUTROPHILS % (AUTO) 40 % (42-75); PLATELET COUNT 432 10^3/uL (130-400); RED BLOOD COUNT 3.77 10^6/uL (4.35-5.85); RED CELL DISTRIBUTION WIDTH 18.6 % (10.0-14.5); WHITE BLOOD COUNT 11.6 10^3/uL (4.3-11.0)
[2017-06-14 04:16] LABS: INR 1.1 (0.8-1.4)
[2017-06-14 04:24] LABS: ALANINE AMINOTRANSFERASE 15 U/L (0-55); ALBUMIN 4.1 GM/DL (3.2-4.5); ANION GAP 11 MMOL/L (5-14); ASPARTATE AMINO TRANSFERASE 16 U/L (5-34); BILIRUBIN,TOTAL 0.3 MG/DL (0.1-1.0); BLOOD UREA NITROGEN 10 MG/DL (7-18); BUN/CREATININE RATIO 14; CALCIUM 9.3 MG/DL (8.5-10.1); CARBON DIOXIDE 22 MMOL/L (21-32); CHLORIDE 107 MMOL/L (98-107); CREATININE SERUM 0.71 MG/DL (0.60-1.30); GFR ESTIMATED > 60; GLUCOSE 89 MG/DL (70-105); LIPASE 22 U/L (8-78); MAGNESIUM 2.2 MG/DL (1.8-2.4); POTASSIUM 3.7 MMOL/L (3.6-5.0); SODIUM 140 MMOL/L (135-145); TOTAL PROTEIN 7.3 GM/DL (6.4-8.2)
[2017-06-14 04:32] LABS: MYOGLOBIN SERUM 22.7 NG/ML (10.0-92.0)
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
--- NOTE | 2017-06-14 06:32 | Diagnostic Imaging Report ---
INDICATION: Chest pain, tachycardia. TECHNIQUE: Single-view chest 4:14 AM. CORRELATION STUDY: 05/17/2017. FINDINGS: Left-sided pacemaker unchanged. Unchanged cardiac enlargement. Vasculature is slightly prominent. Minimal atelectasis suggested about the lung bases. No definitive infiltrate. No effusion. Extensive spinal fixation hardware again demonstrated. Poststernotomy changes. IMPRESSION: Stable cardiac enlargement and vascular prominence. Dictated by: Dictated on workstation # [id number]
[2017-06-14 09:29] VITALS: BP 126/74
== END 2017-06-14 09:29 | disposition home or self-care (01) ==
LOC: EDUNIT# 03:37 → ER 03:39
DX: R00.2 Palpitations (principal); F41.9 Anxiety disorder, unspecified; F43.10 Post-traumatic stress disorder, unspecified; H54.0 Blindness, both eyes; J45.909 Unspecified asthma, uncomplicated; I48.91 Unspecified atrial fibrillation; K21.9 Gastro-esophageal reflux disease without esophagitis; M47.9 Spondylosis, unspecified; G40.909 Epilepsy, unspecified, not intractable, without status epilepticus; F31.9 Bipolar disorder, unspecified; F12.90 Cannabis use, unspecified, uncomplicated; F15.90 Other stimulant use, unspecified, uncomplicated; F17.210 Nicotine dependence, cigarettes, uncomplicated; Z87.2 Personal history of diseases of the skin and subcutaneous tissue; Z91.5 Personal history of self-harm; Z87.81 Personal history of (healed) traumatic fracture; Z87.19 Personal history of other diseases of the digestive system; Z90.710 Acquired absence of both cervix and uterus; Z95.2 Presence of prosthetic heart valve; Z95.0 Presence of cardiac pacemaker; Z90.49 Acquired absence of other specified parts of digestive tract
CPT/HCPCS: 36415; 71010; 80053; 80306; 83690; 83735; 83874; 83880; 84484; 85025; 85610; 85730; 93005

== ENCOUNTER 2017-07-04 16:44 | Emergency (ER) | payer MEDICAID ==
[~2017-07-04] VITALS: Ht 161.3 cm; Wt 71.2 kg
[2017-07-04] MEDS ORDERED: ASPIRIN 81 MG CHEW (CHILDREN'S ASA) PO ONE (17:00)
[2017-07-04 17:02] LABS: BASOPHILS # (AUTO) 0.1 10^3/uL (0.0-0.1); BASOPHILS % (AUTO) 0 % (0-10); EOSINOPHILS # (AUTO) 0.8 10^3/uL (0.0-0.3); EOSINOPHILS % (AUTO) 5 % (0-10); LYMPHOCYTES % (AUTO) 32 % (12-44); MEAN CORPUSCULAR HEMOGLOBIN 27 PG (25-34); MEAN CORPUSCULAR HGB CONC 32 G/DL (32-36); MEAN CORPUSCULAR VOLUME 85 FL (80-99); MEAN PLATELET VOLUME 9.6 FL (7.4-10.4); MONOCYTES # (AUTO) 1.9 X 10^3 (0.0-1.0); MONOCYTES % (AUTO) 12 % (0-12); NEUTROPHILS # (AUTO) 8.2 X 10^3 (1.8-7.8); NEUTROPHILS % (AUTO) 51 % (42-75); PLATELET COUNT 566 10^3/uL (130-400); RED BLOOD COUNT 3.79 10^6/uL (4.35-5.85); RED CELL DISTRIBUTION WIDTH 18.5 % (10.0-14.5)
[2017-07-04 17:06] LABS: PROTHROMBIN TIME PATIENT 22.5 SEC (12.2-14.7)
[2017-07-04 17:15] LABS: ALANINE AMINOTRANSFERASE 18 U/L (0-55); ALBUMIN 4.1 GM/DL (3.2-4.5); ANION GAP 9 MMOL/L (5-14); ASPARTATE AMINO TRANSFERASE 15 U/L (5-34); BILIRUBIN,TOTAL 0.4 MG/DL (0.1-1.0); BLOOD UREA NITROGEN 4 MG/DL (7-18); BUN/CREATININE RATIO 5; CALCIUM 9.2 MG/DL (8.5-10.1); CARBON DIOXIDE 28 MMOL/L (21-32); CHLORIDE 104 MMOL/L (98-107); CREATININE SERUM 0.76 MG/DL (0.60-1.30); GFR ESTIMATED > 60; GLUCOSE 89 MG/DL (70-105); POTASSIUM 3.8 MMOL/L (3.6-5.0); SODIUM 141 MMOL/L (135-145); TOTAL PROTEIN 7.8 GM/DL (6.4-8.2)
[2017-07-04 17:17] LABS: BILIRUBIN,URINE NEGATIVE (NEGATIVE); KETONES,URINE NEGATIVE (NEGATIVE); LEUKOCYTE ESTERASE ,URINE NEGATIVE (NEGATIVE); NITRITE,URINE NEGATIVE (NEGATIVE); PH,URINE 6.5 (5-9); PROTEIN,URINE NEGATIVE (NEGATIVE); UROBILINOGEN,URINE NORMAL (NORMAL)
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
[2017-07-04 17:27] LABS: SQUAMOUS EPITHELIAL CELL,UR 0-2 /HPF; WBC,URINE RARE /HPF
[2017-07-04 17:38] LABS: BAND NEUTROPHILS 1 %; BASOPHILS % (MANUAL) 1 %; EOSINOPHILS % (MANUAL) 2 %; LYMPHOCYTES % (MANUAL) 46 %; NEUTROPHILS % (MANUAL) 47 %
[2017-07-04 17:39] LABS: HYPOCHROMASIA MODERATE; POIKILOCYTOSIS SLIGHT; SPHEROCYTES SLIGHT
--- NOTE | 2017-07-04 17:44 | Diagnostic Imaging Report ---
INDICATION: 36-year-old female complains of chest pain and shortness of breath for one hour. COMPARISON: 06/14/17. EXAMINATION: Single view of the chest was obtained. FINDINGS: The cardiac contour appears to be enlarged. There is mild central venous congestion. No significant consolidations are seen. Some background chronic parenchymal changes are present. These findings are accentuated by the portable technique. There is a dual-chamber left-sided pacer. Spinal hardware with Tavares rods appear stable. There is a previous median sternotomy possibly for a CABG. Overall minimal change since the prior exam. IMPRESSION: Heart size is upper limits of normal with mild central venous congestion. Additional nonemergent findings as described above. Dictated by: Dictated on workstation # [id number]
[2017-07-04 19:26] VITALS: BP 115/71
== END 2017-07-04 19:26 | disposition home or self-care (01) ==
LOC: EDUNIT# 16:44 → ER 16:45
DX: D72.829 Elevated white blood cell count, unspecified (principal); R00.2 Palpitations; G40.909 Epilepsy, unspecified, not intractable, without status epilepticus; I48.91 Unspecified atrial fibrillation; J44.9 Chronic obstructive pulmonary disease, unspecified; R60.9 Edema, unspecified; I10 Essential (primary) hypertension; F43.10 Post-traumatic stress disorder, unspecified; F31.9 Bipolar disorder, unspecified; G47.9 Sleep disorder, unspecified; M47.9 Spondylosis, unspecified; F41.9 Anxiety disorder, unspecified; K21.9 Gastro-esophageal reflux disease without esophagitis; K58.9 Irritable bowel syndrome, unspecified; F15.90 Other stimulant use, unspecified, uncomplicated; F17.210 Nicotine dependence, cigarettes, uncomplicated; Z79.01 Long term (current) use of anticoagulants; Z87.11 Personal history of peptic ulcer disease; Z95.2 Presence of prosthetic heart valve; Z95.0 Presence of cardiac pacemaker; Z90.49 Acquired absence of other specified parts of digestive tract; Z91.5 Personal history of self-harm; Z87.2 Personal history of diseases of the skin and subcutaneous tissue; Z90.710 Acquired absence of both cervix and uterus; Z80.49 Family history of malignant neoplasm of other genital organs
CPT/HCPCS: 36415; 71010; 80053; 80306; 81000; 83735; 83874; 83880; 84484; 85007; 85027; 85610; 85730; 93005; 93041

== ENCOUNTER → 2017-07-08 | Emergency (ER) | payer MEDICAID ==
[~2017-07-08] VITALS: Ht 161.3 cm; Wt 71.2 kg
[~2017-07-08] MED LIST changes: +TETANUS,DIPTH,PERTUSS P/F (BOOSTRIX) 0.5 ML VIAL IM STA
--- OUTSIDE RECORDS SUMMARY | 2017-07-08 13:33 | XMS REPORT | Clinical Summary ---
Author Author [facility] Organization [facility] Address Unknown Phone Unavailable Care Team Providers Care Senior Director Insight Name Role Phone PCP Unavailable Source Comments Some departments are not documenting in the electronic medical record. 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
--- OUTSIDE RECORDS SUMMARY | 2017-07-08 13:48 | XMS REPORT ---
Author Author FRANCHESKA HEADLEY [facility] Address [address] [place] [address] Care Team Providers Care Nuclear Reactor Operator Name Role Phone FRANCHESKA HEADLEY Unavailable PROBLEMS Type Condition ICD9-CM Code [id number] Code Onset Dates Condition Status SNOMED Code Problem Major depressive disorder, recurrent episode, severe F33.2 Active 212748700183 Problem Congestive heart failure, unspecified congestive heart failure chronicity, unspecified congestive heart failure type I50.9 Active 26659898 Problem Polysubstance (excluding opioids) dependence F19.20 Active 42470787 Problem Lumbago with sciatica, left side M54.42 Active 521236070 Problem Seasonal allergic rhinitis, unspecified allergic rhinitis trigger J30.2 Active 076090373 Problem Lumbago with sciatica, right side M54.41 Active 751323716 Problem Unspecified mood [affective] disorder F39 Active 675852459 Problem Anxiety F41.9 Active 44318096 Problem Other chronic pain G89.29 Active 42793602 Problem Esophagitis, reflux K21.0 Active 883758227 Problem Primary insomnia F51.01 Active 589704897 Problem Edema, due to unspecified malnutrition type, unspecified type R60.9 Active 050126672 Problem Seizure disorder G40.909 Active 539415659 Problem Atrial fibrillation, unspecified type I48.91 Active 46748649 Problem COPD (chronic obstructive pulmonary disease) with acute bronchitis J44.0 Active 346720308159710 ALLERGIES Substance Reaction Event Type Date Status Saphris Unknown Drug Allergy Oct, Active Tylenol/Codeine #3 Unknown Drug Allergy Oct, Active Phenergan Unknown Drug Allergy Oct, Active Keflex Unknown Drug Allergy Oct, Active Inapsine Unknown Drug Allergy Oct, Active Geodon Unknown Drug Allergy Oct, Active Erythromycin Unknown Drug Allergy Oct, Active Darvocet-N 50 Unknown Drug Allergy Oct, Active Compazine Unknown Drug Allergy Oct, Active Cephalexin Unknown Drug Allergy Oct, Active Bactrim Unknown Drug Allergy Oct, Active SOCIAL HISTORY No smoking Hx information available PLAN OF CARE VITAL SIGNS Height 64 in 2016-11-13 Weight 130 lbs 2016-11-13 Temperature 98.4 degrees Fahrenheit 2016-11-13 Heart Rate 64 bpm 2016-11-13 Respiratory Rate 18 2016-11-13 BMI 22.31 kg/m2 2016-11-13 Blood pressure systolic 90 mmHg 2016-11-13 Blood pressure diastolic 60 mmHg 2016-11-13 MEDICATIONS Medication Instructions Dosage Frequency Start Date End Date Duration Status Xarelto 20 MG Orally Once a day 1 tablet with food 24h Active Omeprazole 40 MG Orally Once a day 1 capsule 24h Active TENS Unit 1 Use as directed 12h Aug, Active Furosemide 40 mg Orally Once a day. NEEDS APPT FOR REFILLS 1 tablet Active BusPIRone HCl 10 mg Orally twice a day 1 tablet 12h Active HydrOXYzine Pamoate 25 MG 1 capsule 6h Active Albuterol Sulfate HFA 108 (90 Base) MCG/ACT Inhalation every 4 hrs-6hrs 2 puffs as needed Active Keppra 750 MG Orally every 12 hrs 1 tablet 12h Active Diclofenac Sodium 75 MG TAKE ONE TABLET BY MOUTH TWICE DAILY 90 Active Digoxin 125 MCG TAKE ONE TABLET BY MOUTH EVERY DAY 30 Active Estradiol 2 MG Orally Once a day 1 tablet 24h Active Meclizine HCl 25 MG TAKE ONE TABLET BY MOUTH EVERY DAY NEEDED FOR DIZZINESS 30 Active Symbicort 160-4.5 MCG/ACT Inhalation Twice a day 2 puffs 12h Active Potassium Chloride 20 MEQ Orally Once a day. NEEDS APPT FOR REFILLS 1 tablet Jun, Active PredniSONE 20 MG Orally Once a day 2 tablets 24h Oct, Oct, 5 days Active Protonix 40 MG Orally Once a day 1 tablet 24h Active Cogentin 1 MG/ML Injection 4 times a day 1 ml 6h Active Benadryl 25 MG Orally every 6 hrs 1 tablet as needed 6h Active Haldol 5 mg orally 4 times a day 1 tab 6h Active Trazodone HCl 150 MG TAKE 1 TABLET AT BEDTIME NEEDED Active Metoprolol Tartrate 25 MG Orally Once a day 1 tablet 24h 30 Active RESULTS Name Result Date Reference Range URINE DRUG SCREEN (IN HOUSE) 2016-11-13 Lot # [id number] Exp date 04/2018 Control + COCAINE NEGATIVE AMPH NEGATIVE MTD NEGATIVE THC NEGATIVE OPIATE NEGATIVE BENZO NEGATIVE PCP NEGATIVE BAR NEGATIVE OXY NEGATIVE MAMP NEGATIVE TCA NEGATIVE BUP NEGATIVE MDMA NEGATIVE PROCEDURES Procedure Date Ordered Related Diagnosis Body Site DRUG TEST PRSMV DIR OPT OBS Nov 13, 2016 Office Visit, Est Pt., Level 3 Nov 13, 2016 THER/PROPH/DIAG INJ, SC/IM Nov 13, 2016 TORADOL (IM) 60 MG/2ML (UP TO 15 MG) Nov 13, 2016 IMMUNIZATIONS Vaccine Route Administration Date Status TORADOL (IM) 60 MG/2ML (UP TO 15 MG) IM Intramuscular Nov 13, 2016 Administered
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
--- NOTE | 2017-07-08 14:49 | Diagnostic Imaging Report ---
INDICATION: Bilateral knee pain. COMPARISON: None available. TECHNIQUE: 3 views of each knee were obtained. Findings: No acute fracture of either knee. Old healed fracture deformity of proximal right fibular neck. No traumatic malalignment. Joint spaces are well-maintained. No joint effusion on either side. No soft tissue abnormality. IMPRESSION: 1. No acute osseous abnormality of either knee. Dictated by: Dictated on workstation # [id number]
--- NOTE | 2017-07-08 14:50 | Diagnostic Imaging Report ---
Indication: Right arm pain. Comparison: Right humerus radiographs performed concurrently. Technique: AP and lateral views of right forearm. Findings: Surgical changes from fusion of the radius and carpus utilizing dorsal plate and screws. Secondary degenerative changes at the distal radioulnar joint are noted. Hardware is intact. No acute fracture. Impression: 1. Status post arthrodesis of the radiocarpal joint. No hardware complication. No acute osseous abnormality. Dictated by: Dictated on workstation # [id number]
--- NOTE | 2017-07-08 14:52 | Diagnostic Imaging Report ---
INDICATION: Right arm pain and bruising. COMPARISON: Right forearm radiographs performed concurrently. TECHNIQUE: 2 views of right humerus. FINDINGS AND IMPRESSION: 1. No acute fracture of the right humerus. 2. The elbow and shoulder are normal in alignment. Dictated by: Dictated on workstation # [id number]
--- NOTE | 2017-07-08 14:55 | Diagnostic Imaging Report ---
INDICATION: Left elbow pain. TECHNIQUE: 3 views of left elbow. FINDINGS: No fracture or traumatic malalignment. No elbow joint effusion. No abnormal soft tissue mineralizations. IMPRESSION: 1. No acute osseous abnormality of left elbow. Dictated by: Dictated on workstation # [id number]
[2017-07-08 15:38] VITALS: BP 106/66
== END | disposition home or self-care (01) ==
LOC: EDUNIT# 13:27 → ER 13:29
DX: Z04.3 Encounter for examination and observation following other accident (principal)
CPT/HCPCS: 73060; 73080; 73090; 90715; 99283

== ENCOUNTER 2017-07-10 13:26 | Observation (INO) | payer MEDICAID ==
[~2017-07-10] VITALS: Ht 160 cm; Wt 71.2 kg
[~2017-07-10 13:26] MED LIST changes: -TETANUS,DIPTH,PERTUSS P/F (BOOSTRIX) 0.5 ML VIAL IM STA
--- OUTSIDE RECORDS SUMMARY | 2017-07-10 13:33 | XMS REPORT | Clinical Summary ---
Author Author [facility] Organization [facility] Address Unknown Phone Unavailable Care Team Providers Care Guard Driver Name Role Phone PCP Unavailable Source Comments Some departments are not documenting in the electronic medical record. If you do not see the information that you expected, contact Release of Information in the Health Information Management department at [phone] for further assistance in locating additional records.[facility] Allergies Active Allergy Reactions Severity Noted Date [...] 36.4 C (97.5 F) 12/16/2014 10:45 AM [employer] Respiratory Rate - - Oxygen Saturation 95% [...]
[2017-07-10 14:00] LABS: BASOPHILS # (AUTO) 0.1 10^3/uL (0.0-0.1); BASOPHILS % (AUTO) 1 % (0-10); EOSINOPHILS # (AUTO) 0.6 10^3/uL (0.0-0.3); EOSINOPHILS % (AUTO) 4 % (0-10); LYMPHOCYTES # (AUTO) 3.7 X 10^3 (1.0-4.0); LYMPHOCYTES % (AUTO) 25 % (12-44); MEAN CORPUSCULAR HEMOGLOBIN 27 PG (25-34); MEAN CORPUSCULAR HGB CONC 32 G/DL (32-36); MEAN CORPUSCULAR VOLUME 84 FL (80-99); MEAN PLATELET VOLUME 9.7 FL (7.4-10.4); MONOCYTES # (AUTO) 1.6 X 10^3 (0.0-1.0); MONOCYTES % (AUTO) 11 % (0-12); NEUTROPHILS # (AUTO) 9.1 X 10^3 (1.8-7.8); NEUTROPHILS % (AUTO) 60 % (42-75); PLATELET COUNT 570 10^3/uL (130-400); RED BLOOD COUNT 3.61 10^6/uL (4.35-5.85); RED CELL DISTRIBUTION WIDTH 18.2 % (10.0-14.5)
[2017-07-10 14:01] LABS: BILIRUBIN,URINE NEGATIVE (NEGATIVE); KETONES,URINE NEGATIVE (NEGATIVE); LEUKOCYTE ESTERASE ,URINE NEGATIVE (NEGATIVE); NITRITE,URINE NEGATIVE (NEGATIVE); PH,URINE 6 (5-9); PROTEIN,URINE NEGATIVE (NEGATIVE); UROBILINOGEN,URINE NORMAL (NORMAL)
[2017-07-10 14:10] LABS: INR 2.4 (0.8-1.4); PROTHROMBIN TIME PATIENT 26.1 SEC (12.2-14.7)
[2017-07-10 14:15] LABS: WBC,URINE RARE /HPF
[2017-07-10 14:25] LABS: ALANINE AMINOTRANSFERASE 17 U/L (0-55); ALBUMIN 4.2 GM/DL (3.2-4.5); ALCOHOL < 10 MG/DL (<10); ANION GAP 10 MMOL/L (5-14); ASPARTATE AMINO TRANSFERASE 15 U/L (5-34); BILIRUBIN,TOTAL 0.5 MG/DL (0.1-1.0); BLOOD UREA NITROGEN 9 MG/DL (7-18); BUN/CREATININE RATIO 10; CALCIUM 9.3 MG/DL (8.5-10.1); CARBON DIOXIDE 25 MMOL/L (21-32); CHLORIDE 100 MMOL/L (98-107); CREATININE SERUM 0.91 MG/DL (0.60-1.30); GFR ESTIMATED > 60; GLUCOSE 94 MG/DL (70-105); MAGNESIUM 1.8 MG/DL (1.8-2.4); POTASSIUM 3.9 MMOL/L (3.6-5.0); SALICYLATE < 5.0 MG/DL (5.0-20.0); SODIUM 135 MMOL/L (135-145); TOTAL PROTEIN 7.5 GM/DL (6.4-8.2); hs C REACTIVE PROTEIN 0.95 MG/DL (0.00-0.50)
[2017-07-10 14:26] LABS: ANISOCYTOSIS SLIGHT; BAND NEUTROPHILS 1 %; BASOPHILS % (MANUAL) 0 %; EOSINOPHILS % (MANUAL) 7 %; HOWELL-JOLLY BODIES SLIGHT; LYMPHOCYTES % (MANUAL) 28 %; NEUTROPHILS % (MANUAL) 53 %
[2017-07-10 14:28] LABS: ACETAMINOPHEN < 10 UG/ML (10-30)
--- NOTE | 2017-07-10 14:32 | Diagnostic Imaging Report ---
EXAM: Postoperative radiograph of the chest. INDICATION: Chest pain and shortness of breath. FINDINGS: The heart size is mildly enlarged. The lungs demonstrate no focal infiltrate or vascular congestion. No effusion or pneumothorax. Mediastinum and claudia appear unremarkable. Sternotomy wires, pacemaker with a single lead and spine fusion hardware along the thoracic spine levels are seen. IMPRESSION: Cardiomegaly. Dictated by: Dictated on workstation # [id number]
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
--- NOTE | 2017-07-10 15:33 | Diagnostic Imaging Report ---
Duplex venous ultrasound of the right upper extremity. INDICATION: Right arm pain. FINDINGS: There is compressibility, venous waveforms and color flow demonstrated in the right internal jugular vein, subclavian, axillary, brachial, radial, basilic, and ulnar veins with no evidence of DVT. Area of swelling in the dorsum of the hand is scanned with nonspecific subcutaneous edema seen. IMPRESSION: No evidence of DVT in the right upper extremity. Dictated by: Dictated on workstation # [id number]
--- OUTSIDE RECORDS SUMMARY | 2017-07-10 17:23 | XMS REPORT | Clinical Summary ---
Author Author [facility] Organization [facility] Address Unknown Phone Unavailable Care Team Providers Care Yard Inspector Name Role Phone PCP Unavailable Source Comments Some departments are not documenting in the electronic medical record. 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
[2017-07-10 17:54] VITALS: BP 115/59
[2017-07-10] MEDS ORDERED: RIVAROXABAN 20 MG TABLET (XARELTO) PO SCH (18:02)
[2017-07-10] MEDS ORDERED: CATHETER FLUSH 10 ML SYR IV PRN (18:15)
[2017-07-10 19:44] VITALS: BP 126/83
[2017-07-10] MEDS: LEVETIRACETAM 1,000 MG (KEPPRA) TABLET PO SCH (20:32)
[2017-07-10] MEDS: HALOPERIDOL 5 MG (HALDOL) TAB PO SCH (20:32)
[2017-07-10 20:55] VITALS: BP 115/77
[2017-07-10 21:59] VITALS: BP 116/77
[2017-07-10] MEDS: CATHETER FLUSH 10 ML SYR IV SCH (22:23)
[2017-07-10 22:51] VITALS: BP 116/76
[2017-07-11] VITALS (8 sets, daily range): BP systolic 113–126; BP diastolic 74–85
[2017-07-11] MEDS: CATHETER FLUSH 10 ML SYR IV SCH (06:07)
[2017-07-11] MEDS: LEVETIRACETAM 1,000 MG (KEPPRA) TABLET PO SCH (08:35)
[2017-07-11] MEDS: HALOPERIDOL 5 MG (HALDOL) TAB PO SCH (08:35)
[2017-07-11] MEDS ORDERED: DIGOXIN 0.125 MG (LANOXIN) TAB PO SCH (09:00)
[2017-07-11] MEDS ORDERED: DILTIAZEM 180 MG (CARDIZEM CD) CAP PO SCH (09:00)
--- NOTE | 2017-07-11 10:08 | Discharge Instructions ---
Discharge [facility] Discharge Medications Continued Medications: Acetaminophen (Tylenol Extra Strength) 500 Mg Tablet 4293-1618 MG PO EVERY 4-6 HOURS PRN for PAIN-MILD, TAB TAKES 2-4 (500 MG) TABLETS Benztropine Mesylate (Benztropine Mesylate) 1 Mg Tablet 1 MG PO BID LAST FILLED 01/02/17 #360 Calcium Carbonate (Tums Smoothies) 300 Mg Tab.chew 600 MG PO DAILY PRN for INDIGESTION, TAB TAKES 2 (300 MG) TABLETS Cetirizine HCl (Cetirizine HCl) 10 Mg Tablet 10 MG PO DAILY Diclofenac Sodium (Diclofenac Sodium) 75 Mg Tablet.dr 75 MG PO BID, TAB Digoxin (Digoxin) 125 Mcg Tablet 125 MCG PO DAILY, TAB Diltiazem HCl (Cardizem Cd) 180 Mg Cap.er.24h 180 MG PO DAILY, #14 CAP 1 Refill Furosemide (Furosemide) 40 Mg Tablet 40 MG PO DAILY, TAB Guaifen/Phenyleph/Acetaminophn (Tylenol Sinus Severe Caplet) 1 Each Tablet 2 TAB PO Q6H PRN for ALLERGIES, TAB Haloperidol (Haloperidol) 5 Mg Tablet 5 MG PO BID LAST FILLED 03/13/17 #120 Levetiracetam (Levetiracetam) 1,000 Mg Tablet 1000 MG PO BID Meclizine HCl (Meclizine HCl) 25 Mg Tablet 25 MG PO DAILY, TAB LAST FILLED 04/10/17 #30 Metoprolol Tartrate (Metoprolol Tartrate) 25 Mg Tablet 12.5 MG PO DAILY, TAB TAKES 1/2 (25MG) TABLET Pantoprazole Sodium (Pantoprazole Sodium) 40 Mg Tablet.dr 40 MG PO DAILY, TAB Rivaroxaban (Xarelto) 20 Mg Tablet 20 MG PO DAILY Discontinued Medications: Cyclobenzaprine HCl (Cyclobenzaprine HCl) 10 Mg Tablet 10 MG PO Q8H PRN for SPASMS, #10 TAB 0 Refills Diltiazem HCl (Cartia Xt) 180 Mg Cap.er.24h Estradiol (Estradiol Tablet) 2 Mg Tablet 2 MG PO DAILY, TAB LAST FILLED 01/16/17 #30 Omeprazole (Omeprazole) 40 Mg Capsule.dr 40 MG PO HS, CAP Prednisone (Prednisone) 20 Mg Tab 40 MG PO DAILY, #10 TAB 0 Refills Patient Instructions Goal/Follow Up Appt: Follow up with Sascha Scott at [facility] on 07/16 at 10 am. Activity & Diet Discharge Diet: Cardiac Diet Activity as Tolerated: Yes ERNST GOODWIN MD Jul 11, 2017 10:03 am
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
[2017-08-06] MEDS ORDERED: POTA10TA36 PO (09:47)
[2017-08-06] MEDS ORDERED: NABU500T PO (09:47)
[2017-08-06] MEDS ORDERED: LACT1CAP76 PO (09:47)
[2017-08-06] MEDS ORDERED: CYCL10TA9 PO (09:47)
[2017-08-06] MEDS ORDERED: DILT180C54 PO (09:47)
[2017-08-06] MEDS ORDERED: HYDR-700 PO (09:47)
[2017-08-06] MEDS ORDERED: BENZ1TAB6 PO (10:05)
[2017-08-06] MEDS ORDERED: OMEP40CA36 PO (10:05)
[2017-08-26] MEDS ORDERED: Flexeril (10:54)
== END 2017-07-11 10:02 | disposition home or self-care (01) ==
LOC: EDUNIT# 13:26 → ER 13:28 → UNDOADMOB 17:19 → 4TH 17:19 → UNDODISOB 07-11 11:15
PROVIDERS: ADMIT Family Medicine; ATTEND Family Medicine
DX: M51.36 Other intervertebral disc degeneration, lumbar region; R41.82 Altered mental status, unspecified; Z98.1 Arthrodesis status; K21.9 Gastro-esophageal reflux disease without esophagitis; S50.11XD Contusion of right forearm, subsequent encounter; F13.90 Sedative, hypnotic, or anxiolytic use, unspecified, uncomplicated; I48.2 Chronic atrial fibrillation; G89.29 Other chronic pain; I51.7 Cardiomegaly; Z95.0 Presence of cardiac pacemaker; Q24.8 Other specified congenital malformations of heart; F17.210 Nicotine dependence, cigarettes, uncomplicated; Z95.2 Presence of prosthetic heart valve; M79.7 Fibromyalgia; Z79.899 Other long term (current) drug therapy; Z79.01 Long term (current) use of anticoagulants; J44.9 Chronic obstructive pulmonary disease, unspecified; I10 Essential (primary) hypertension
CPT/HCPCS: 36415; 70450; 71010; 80053; 80162; 80306; 80320; 80329; 81000; 83735; 83880; 85007; 85027; 85610; 85730; 86141; G0378

== ENCOUNTER 2017-08-01 03:13 | Emergency (ER) | payer MEDICAID ==
[~2017-08-01] VITALS: Ht 160 cm; Wt 71.2 kg
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
[2017-08-01] MEDS ORDERED: PRD20T PO (03:58)
[2017-08-01] MEDS ORDERED: KETOROLAC 30 MG/ML VIAL IVP ONE (04:00)
[2017-08-01 04:06] VITALS: BP 124/43
== END 2017-08-01 04:05 | disposition home or self-care (01) ==
LOC: EDUNIT# 03:13 → ER 03:16
DX: M54.41 Lumbago with sciatica, right side (principal); F41.9 Anxiety disorder, unspecified; F31.9 Bipolar disorder, unspecified; F43.10 Post-traumatic stress disorder, unspecified; H54.3 Unqualified visual loss, both eyes; J44.9 Chronic obstructive pulmonary disease, unspecified; K21.9 Gastro-esophageal reflux disease without esophagitis; K58.9 Irritable bowel syndrome, unspecified; G40.909 Epilepsy, unspecified, not intractable, without status epilepticus; Z90.710 Acquired absence of both cervix and uterus; Z91.5 Personal history of self-harm; Z90.49 Acquired absence of other specified parts of digestive tract; Z95.4 Presence of other heart-valve replacement; Z95.0 Presence of cardiac pacemaker; Z77.22 Contact with and (suspected) exposure to environmental tobacco smoke (acute) (chronic)
CPT/HCPCS: 99284

== ENCOUNTER 2017-08-22 10:58 | Emergency (ER) | payer MEDICAID ==
[~2017-08-22] VITALS: Ht 160 cm; Wt 68.0 kg
[~2017-08-22 10:58] MED LIST changes: +DILT180C54 PO; +HYDR-700 PO; +LACT1CAP76 PO; +NABU500T PO; +POTA10TA36 PO
--- OUTSIDE RECORDS SUMMARY | 2017-08-22 11:04 | XMS REPORT | Clinical Summary ---
Author Author [facility] Organization [facility] Address Unknown Phone Unavailable Care Team Providers Care Chemical Engineering Teacher Name Role Phone PCP Unavailable Source Comments Some departments are not documenting in the electronic medical record. If you do not see the information that you expected, contact Release of Information in the Health Information Management department at [phone] for further assistance in locating additional records.[facility] Allergies Active Allergy Reactions Severity Noted [...] mouth twice 90 Tab 0 11/15/19 Active (OS-SHRAA) 1250 mg tablet daily with meals. 

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
[2017-08-22] MEDS ORDERED: KETOROLAC 60 MG/2 ML VIAL IM STA (13:56)
[2017-08-22 14:05] LABS: BILIRUBIN,URINE NEGATIVE (NEGATIVE); KETONES,URINE NEGATIVE (NEGATIVE); LEUKOCYTE ESTERASE ,URINE NEGATIVE (NEGATIVE); NITRITE,URINE NEGATIVE (NEGATIVE); PH,URINE 5 (5-9); PROTEIN,URINE NEGATIVE (NEGATIVE); UROBILINOGEN,URINE NORMAL (NORMAL)
[2017-08-22 14:15] LABS: BASOPHILS # (AUTO) 0.1 10^3/uL (0.0-0.1); BASOPHILS % (AUTO) 1 % (0-10); EOSINOPHILS # (AUTO) 0.3 10^3/uL (0.0-0.3); EOSINOPHILS % (AUTO) 3 % (0-10); LYMPHOCYTES # (AUTO) 3.7 X 10^3 (1.0-4.0); LYMPHOCYTES % (AUTO) 34 % (12-44); MEAN CORPUSCULAR HEMOGLOBIN 26 PG (25-34); MEAN CORPUSCULAR HGB CONC 32 G/DL (32-36); MEAN CORPUSCULAR VOLUME 81 FL (80-99); MEAN PLATELET VOLUME 9.8 FL (7.4-10.4); MONOCYTES % (AUTO) 9 % (0-12); NEUTROPHILS # (AUTO) 5.9 X 10^3 (1.8-7.8); NEUTROPHILS % (AUTO) 54 % (42-75); PLATELET COUNT 413 10^3/uL (130-400); RED BLOOD COUNT 3.78 10^6/uL (4.35-5.85); RED CELL DISTRIBUTION WIDTH 18.2 % (10.0-14.5); WHITE BLOOD COUNT 10.9 10^3/uL (4.3-11.0)
[2017-08-22] MEDS ORDERED: HYDR28.341 RC (14:38)
[2017-08-22 14:39] LABS: ALANINE AMINOTRANSFERASE 21 U/L (0-55); ALBUMIN 4.2 GM/DL (3.2-4.5); ANION GAP 11 MMOL/L (5-14); ASPARTATE AMINO TRANSFERASE 19 U/L (5-34); BILIRUBIN,TOTAL 0.2 MG/DL (0.1-1.0); BLOOD UREA NITROGEN 7 MG/DL (7-18); BUN/CREATININE RATIO 9; CALCIUM 9.4 MG/DL (8.5-10.1); CARBON DIOXIDE 22 MMOL/L (21-32); CHLORIDE 108 MMOL/L (98-107); CREATININE SERUM 0.74 MG/DL (0.60-1.30); GFR ESTIMATED > 60; GLUCOSE 86 MG/DL (70-105); LIPASE 20 U/L (8-78); POTASSIUM 3.8 MMOL/L (3.6-5.0); SODIUM 141 MMOL/L (135-145); TOTAL PROTEIN 7.9 GM/DL (6.4-8.2)
[2017-08-22 14:46] VITALS: BP 140/70
== END 2017-08-22 14:46 | disposition home or self-care (01) ==
LOC: EDUNIT# 10:58 → ER 11:00
DX: K64.9 Unspecified hemorrhoids (principal); K62.5 Hemorrhage of anus and rectum; F41.9 Anxiety disorder, unspecified; F43.10 Post-traumatic stress disorder, unspecified; F31.9 Bipolar disorder, unspecified; M47.9 Spondylosis, unspecified; G40.909 Epilepsy, unspecified, not intractable, without status epilepticus; I48.91 Unspecified atrial fibrillation; I10 Essential (primary) hypertension; K21.9 Gastro-esophageal reflux disease without esophagitis; Z87.11 Personal history of peptic ulcer disease; Z77.22 Contact with and (suspected) exposure to environmental tobacco smoke (acute) (chronic); Z91.5 Personal history of self-harm; Z87.81 Personal history of (healed) traumatic fracture; Z90.710 Acquired absence of both cervix and uterus; Z90.49 Acquired absence of other specified parts of digestive tract; Z95.0 Presence of cardiac pacemaker; Z95.4 Presence of other heart-valve replacement
CPT/HCPCS: 36415; 80053; 81000; 83690; 85025; 99284

== ENCOUNTER 2017-09-06 16:14 | Emergency (ER) | payer MEDICAID ==
[~2017-09-06] VITALS: Ht 160 cm; Wt 63.8 kg
[~2017-09-06 16:14] MED LIST changes: +Flexeril; +HYDR28.341 RC
--- OUTSIDE RECORDS SUMMARY | 2017-09-06 16:20 | XMS REPORT | Clinical Summary ---
Author Author [facility] Organization [facility] Address Unknown Phone Unavailable Care Team Providers Care Employee Services Manager Name Role Phone PCP Unavailable Source Comments Some departments are not documenting in the electronic medical record. 

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
[2017-09-06] MEDS ORDERED: KETOROLAC 60 MG/2 ML VIAL IM ONE (16:45)
[2017-09-06 17:09] LABS: BASOPHILS % (AUTO) 0 % (0-10); EOSINOPHILS # (AUTO) 0.4 10^3/uL (0.0-0.3); EOSINOPHILS % (AUTO) 3 % (0-10); LYMPHOCYTES # (AUTO) 4.2 X 10^3 (1.0-4.0); LYMPHOCYTES % (AUTO) 30 % (12-44); MEAN CORPUSCULAR HEMOGLOBIN 26 PG (25-34); MEAN CORPUSCULAR HGB CONC 32 G/DL (32-36); MEAN CORPUSCULAR VOLUME 79 FL (80-99); MEAN PLATELET VOLUME 9.3 FL (7.4-10.4); MONOCYTES # (AUTO) 1.7 X 10^3 (0.0-1.0); MONOCYTES % (AUTO) 12 % (0-12); NEUTROPHILS # (AUTO) 7.9 X 10^3 (1.8-7.8); NEUTROPHILS % (AUTO) 56 % (42-75); PLATELET COUNT 477 10^3/uL (130-400); RED BLOOD COUNT 3.73 10^6/uL (4.35-5.85); RED CELL DISTRIBUTION WIDTH 17.7 % (10.0-14.5); WHITE BLOOD COUNT 14.1 10^3/uL (4.3-11.0)
[2017-09-06 17:26] LABS: ALANINE AMINOTRANSFERASE 22 U/L (0-55); ALBUMIN 4.1 GM/DL (3.2-4.5); ANION GAP 9 MMOL/L (5-14); ASPARTATE AMINO TRANSFERASE 19 U/L (5-34); BILIRUBIN,TOTAL 0.3 MG/DL (0.1-1.0); BLOOD UREA NITROGEN 9 MG/DL (7-18); BUN/CREATININE RATIO 12; CALCIUM 9.4 MG/DL (8.5-10.1); CARBON DIOXIDE 29 MMOL/L (21-32); CHLORIDE 101 MMOL/L (98-107); CREATININE SERUM 0.74 MG/DL (0.60-1.30); GFR ESTIMATED > 60; GLUCOSE 105 MG/DL (70-105); POTASSIUM 3.8 MMOL/L (3.6-5.0); SODIUM 139 MMOL/L (135-145); TOTAL PROTEIN 7.8 GM/DL (6.4-8.2)
[2017-09-06 17:35] LABS: BAND NEUTROPHILS 4 %; BASOPHILS % (MANUAL) 1 %; EOSINOPHILS % (MANUAL) 1 %; LYMPHOCYTES % (MANUAL) 34 %; MICROCYTOSIS SLIGHT; NEUTROPHILS % (MANUAL) 55 %
[2017-09-06 17:45] LABS: BILIRUBIN,URINE NEGATIVE (NEGATIVE); KETONES,URINE NEGATIVE (NEGATIVE); LEUKOCYTE ESTERASE ,URINE NEGATIVE (NEGATIVE); NITRITE,URINE NEGATIVE (NEGATIVE); PH,URINE 7 (5-9); PROTEIN,URINE NEGATIVE (NEGATIVE); UROBILINOGEN,URINE NORMAL (NORMAL); WBC,URINE RARE /HPF
--- NOTE | 2017-09-06 18:03 | Diagnostic Imaging Report ---
PROCEDURE: CT head and CT cervical spine without contrast. TECHNIQUE: Multiple contiguous axial images were obtained through the brain and cervical spine without the use of intravenous contrast. Sagittal and coronal reformations through the cervical spine were then performed. INDICATION: Fall. FINDINGS: CT head: There is no intracranial hemorrhage, edema, or mass effect. The brain parenchyma demonstrates preserved garcia-white matter differentiation. There is no hydrocephalus. No extra-axial fluid collection is seen. The calvarium, the visualized portions of the paranasal sinuses, and the mastoid air cells appear unremarkable. 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 This is associated with vertebral body fusion anteriorly of C5-C6 distraction of the posterior elements. There is no significant subluxation or dislocation, however, and the posterior spinal line alignment is satisfactory. The alignment of the lateral masses of C1 and C2 and the atlanto-occipital joints is satisfactory. The vertebral body heights are preserved. Other than the fusion level of C5-C6, the disc heights are preserved. No significant posterior osteophytes are seen. No acute fracture is identified. When the cervical spine is compared to 05/30/2016, no significant changes seen. IMPRESSION: CT head: Unremarkable exam. CT cervical spine: Chronic deformity and fusion of vertebral bodies C5 and C6 probably related to an old hyperflexion injury. No acute fracture. Report given to Luis Wray APRN in the [facility] ER at 6:01 p.m., by nelson (for DEVEN). Dictated by: Dictated on workstation # [id number]
[2017-09-06 18:05] VITALS: BP 129/58
== END 2017-09-06 18:05 | disposition home or self-care (01) ==
LOC: EDUNIT# 16:14 → ER 16:15
DX: F15.10 Other stimulant abuse, uncomplicated (principal); G40.909 Epilepsy, unspecified, not intractable, without status epilepticus; J44.9 Chronic obstructive pulmonary disease, unspecified; I48.91 Unspecified atrial fibrillation; I10 Essential (primary) hypertension; F41.9 Anxiety disorder, unspecified; F43.10 Post-traumatic stress disorder, unspecified; F31.9 Bipolar disorder, unspecified; K21.9 Gastro-esophageal reflux disease without esophagitis; F12.10 Cannabis abuse, uncomplicated; Z77.22 Contact with and (suspected) exposure to environmental tobacco smoke (acute) (chronic); Z90.49 Acquired absence of other specified parts of digestive tract; Z87.19 Personal history of other diseases of the digestive system; Z91.5 Personal history of self-harm; Z90.81 Acquired absence of spleen; Z80.8 Family history of malignant neoplasm of other organs or systems; Z95.0 Presence of cardiac pacemaker; Z95.2 Presence of prosthetic heart valve; Z90.710 Acquired absence of both cervix and uterus; Z79.01 Long term (current) use of anticoagulants
CPT/HCPCS: 36415; 70450; 72125; 80053; 80306; 81000; 85007; 85027; 99283

== ENCOUNTER 2017-09-09 18:16 | Emergency (ER) | payer MEDICAID ==
[~2017-09-09] VITALS: Ht 160 cm; Wt 63.8 kg
--- OUTSIDE RECORDS SUMMARY | 2017-09-09 18:21 | XMS REPORT | Clinical Summary ---
Author Author [facility] Organization [facility] Address Unknown Phone Unavailable Care Team Providers Care Shot Dropper Name Role Phone PCP Unavailable Source Comments Some departments are not documenting in the electronic medical record. 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
[2017-09-09] MEDS ORDERED: KETOROLAC 60 MG/2 ML VIAL IM ONE (19:00)
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
[2017-09-09 19:14] LABS: BASOPHILS # (AUTO) 0.1 10^3/uL (0.0-0.1); BASOPHILS % (AUTO) 0 % (0-10); EOSINOPHILS # (AUTO) 0.4 10^3/uL (0.0-0.3); EOSINOPHILS % (AUTO) 2 % (0-10); LYMPHOCYTES # (AUTO) 4.3 X 10^3 (1.0-4.0); LYMPHOCYTES % (AUTO) 20 % (12-44); MEAN CORPUSCULAR HEMOGLOBIN 26 PG (25-34); MEAN CORPUSCULAR HGB CONC 32 G/DL (32-36); MEAN CORPUSCULAR VOLUME 79 FL (80-99); MEAN PLATELET VOLUME 9.5 FL (7.4-10.4); MONOCYTES # (AUTO) 2.6 X 10^3 (0.0-1.0); MONOCYTES % (AUTO) 12 % (0-12); NEUTROPHILS % (AUTO) 66 % (42-75); PLATELET COUNT 424 10^3/uL (130-400); RED BLOOD COUNT 3.61 10^6/uL (4.35-5.85); WHITE BLOOD COUNT 21.3 10^3/uL (4.3-11.0)
[2017-09-09 19:34] LABS: ALANINE AMINOTRANSFERASE 21 U/L (0-55); ALBUMIN 4.1 GM/DL (3.2-4.5); ANION GAP 13 MMOL/L (5-14); ASPARTATE AMINO TRANSFERASE 22 U/L (5-34); BILIRUBIN,TOTAL 0.5 MG/DL (0.1-1.0); BLOOD UREA NITROGEN 6 MG/DL (7-18); BUN/CREATININE RATIO 8; CALCIUM 9.1 MG/DL (8.5-10.1); CARBON DIOXIDE 25 MMOL/L (21-32); CHLORIDE 97 MMOL/L (98-107); CREATININE SERUM 0.74 MG/DL (0.60-1.30); GFR ESTIMATED > 60; GLUCOSE 109 MG/DL (70-105); POTASSIUM 3.8 MMOL/L (3.6-5.0); SODIUM 135 MMOL/L (135-145); TOTAL PROTEIN 7.8 GM/DL (6.4-8.2)
[2017-09-09 19:36] LABS: BAND NEUTROPHILS 1 %; EOSINOPHILS % (MANUAL) 2 %; LYMPHOCYTES % (MANUAL) 15 %; METAMYELOCYTES % 1 %; NEUTROPHILS % (MANUAL) 72 %; REACTIVE LYMPHOCYTES 3 %
[2017-09-09 19:37] LABS: ANISOCYTOSIS MODERATE; HYPOCHROMASIA SLIGHT; POIKILOCYTOSIS MODERATE; SPHEROCYTES SLIGHT; TARGET CELLS SLIGHT
[2017-09-09 19:38] LABS: SCHISTOCYTES SLIGHT
[2017-09-09] MEDS ORDERED: NS 100 ML (IVPB) BAG IV ONE (20:00)
[2017-09-09] MEDS ORDERED: IOHEXOL 350 MG/ML 100 ML (OMNIPAQUE 350) VIAL IV ONE (20:00)
[2017-09-09 20:23] LABS: BILIRUBIN,URINE NEGATIVE (NEGATIVE); KETONES,URINE NEGATIVE (NEGATIVE); LEUKOCYTE ESTERASE ,URINE NEGATIVE (NEGATIVE); NITRITE,URINE NEGATIVE (NEGATIVE); PH,URINE 6 (5-9); PROTEIN,URINE NEGATIVE (NEGATIVE); UROBILINOGEN,URINE NORMAL (NORMAL)
--- NOTE | 2017-09-09 20:37 | Diagnostic Imaging Report ---
EXAM: Chest pa/lat (2 view). INDICATION: Shortness of breath. COMPARISON: Chest radiograph, 08/12/2017. FINDINGS: Cardiomegaly. Normal central pulmonary vascularity. No dense consolidation, pleural effusion or pneumothorax. Cardiac pacer. Sternotomy. Tavares rods traversing the thoracic spine. Surgical clips in the upper abdomen. IMPRESSION: No acute cardiopulmonary findings. Dictated by: Dictated on workstation # [id number]
[2017-09-09 20:42] LABS: SQUAMOUS EPITHELIAL CELL,UR >50 /HPF; WBC,URINE 0-2 /HPF
--- NOTE | 2017-09-09 20:42 | Diagnostic Imaging Report ---
PROCEDURE: CT abdomen and pelvis with contrast. TECHNIQUE: Multiple contiguous axial images were obtained through the abdomen and pelvis after administration of intravenous contrast. INDICATION: Abdominal pain. Abdominal distention. Weight gain. COMPARISON: CT abdomen and pelvis without contrast 06/12/2017. FINDINGS: Cardiomegaly. The lung bases are clear. Partially visualized sternotomy. Cholecystectomy. Reported appendectomy. Hysterectomy. Postoperative changes in the thoracic spine are partially visualized. The liver, pancreas, kidneys, collecting systems and unopacified bladder are negative. Splenectomy. No free intraperitoneal air or fluid. No lymphadenopathy. No evidence of bowel obstruction. There is a large amount of stool throughout the colon. No acute osseous findings. IMPRESSION: 1. No acute CT findings in the abdomen or pelvis. 2. Large amount of stool throughout the colon would be compatible with constipation. Dictated by: Dictated on workstation # [id number]
[2017-09-09] MEDS ORDERED: diphenhydrAMINE 50 MG/ML INJ (BENADRYL) IVP ONE (20:45)
[2017-09-09] MEDS ORDERED: SPIR25TA PO (20:53)
[2017-09-09] MEDS ORDERED: METO2.5T PO (20:59)
[2017-09-09] MEDS ORDERED: DIGOXIN 0.125 MG (LANOXIN) TAB PO ONE (21:15)
[2017-09-09 21:32] VITALS: BP 135/75
[2017-09-10] MEDS ORDERED: DIGOXIN 0.125 MG (LANOXIN) TAB PO SCH (09:00)
== END 2017-09-09 21:30 | disposition home or self-care (01) ==
LOC: EDUNIT# 18:16 → ER 18:17
DX: R60.0 Localized edema (principal); D72.829 Elevated white blood cell count, unspecified; F41.9 Anxiety disorder, unspecified; F31.9 Bipolar disorder, unspecified; F43.10 Post-traumatic stress disorder, unspecified; G40.909 Epilepsy, unspecified, not intractable, without status epilepticus; I48.91 Unspecified atrial fibrillation; I10 Essential (primary) hypertension; J44.9 Chronic obstructive pulmonary disease, unspecified; F17.210 Nicotine dependence, cigarettes, uncomplicated; Z87.81 Personal history of (healed) traumatic fracture; Z91.5 Personal history of self-harm; Z90.89 Acquired absence of other organs; Z86.14 Personal history of Methicillin resistant Staphylococcus aureus infection; Z87.820 Personal history of traumatic brain injury; Z90.710 Acquired absence of both cervix and uterus
CPT/HCPCS: 36415; 71020; 74177; 80053; 80162; 80306; 81000; 83880; 84484; 85007; 85027; 85652; 86141

== ENCOUNTER 2017-11-19 13:08 | Emergency (ER) | payer MEDICAID ==
[~2017-11-19 13:08] MED LIST changes: +ACHD5005 PO; -HYDR-3812 PO; +METO2.5T PO; +SPIR25TA PO
--- OUTSIDE RECORDS SUMMARY | 2017-11-19 13:48 | XMS REPORT | Clinical Summary ---
Author Author [facility] Organization [facility] Address Unknown Phone Unavailable Care Team Providers Care Chief Electrician Name Role Phone Janae Leblanc MD Unavailable Nigel Adame MD Unavailable Marisol Leong RN Unavailable Unavailable Betty Phillips MD Unavailable Werner Rodriguez MD PCP Rosita Marr APRN Unavailable Koko Voss MD Unavailable Source Comments Some departments are not documenting in the electronic medical record. If you do not see the information that you expected, contact Release of Information in the Health Information Management department at [phone] for further assistance in locating additional records.[facility] Allergies Active Allergy Reactions Severity Noted Date Comments Adhesive RASH 08/15/2011 Specifically surgical tape-"rips my skin off" Amoxicillin VOMITING, ITCHING 03/01/2010 Prochlorperazine SEE COMMENTS 07/07/2010 EPS symptoms Edisylate Propoxyphene NAUSEA AND VOMITING 03/01/2010 N-Acetaminophen Erythromycin VOMITING 03/01/2010 Droperidol AGITATION 03/01/2010 EPS symptoms Peas HIVES, EDEMA 11/13/2012 Penicillins HIVES, NAUSEA AND 08/15/2011 VOMITING Promethazine 03/01/2010 "makes eyes funny"; EPS Sulfa (Sulfonamide VOMITING 03/01/2010 Antibiotics) Acetaminophen HIVES Medium 12/29/2014 tylenol 3 Current Medications Prescription Sig. Disp. 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
== END 2017-11-19 14:05 | disposition left against medical advice (07) ==
LOC: EDUNIT# 13:08 → ER 13:10
DX: M54.9 Dorsalgia, unspecified (principal)

== ENCOUNTER 2017-12-02 13:15 | Emergency (ER) | payer MEDICAID ==
[~2017-12-02] VITALS: Ht 160 cm; Wt 65.8 kg
[2017-12-02] MEDS ORDERED: ASPIRIN 81 MG CHEW (CHILDREN'S ASA) PO ONE (15:15)
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
[2017-12-02 15:34] LABS: BASOPHILS # (AUTO) 0.1 10^3/uL (0.0-0.1); BASOPHILS % (AUTO) 0 % (0-10); EOSINOPHILS # (AUTO) 0.5 10^3/uL (0.0-0.3); EOSINOPHILS % (AUTO) 3 % (0-10); HEMATOCRIT 27 % (35-52); LYMPHOCYTES # (AUTO) 2.9 X 10^3 (1.0-4.0); LYMPHOCYTES % (AUTO) 21 % (12-44); MEAN CORPUSCULAR HEMOGLOBIN 25 PG (25-34); MEAN CORPUSCULAR HGB CONC 33 G/DL (32-36); MEAN CORPUSCULAR VOLUME 76 FL (80-99); MEAN PLATELET VOLUME 9.5 FL (7.4-10.4); MONOCYTES # (AUTO) 1.2 X 10^3 (0.0-1.0); MONOCYTES % (AUTO) 9 % (0-12); NEUTROPHILS % (AUTO) 66 % (42-75); PLATELET COUNT 604 10^3/uL (130-400); RED CELL DISTRIBUTION WIDTH 18.9 % (10.0-14.5); WHITE BLOOD COUNT 13.6 10^3/uL (4.3-11.0)
[2017-12-02 15:38] VITALS: BP_SYST 117; BP_SYST 120; BP_SYST 132; BP_DIAS 64; BP_DIAS 69; BP_DIAS 70
[2017-12-02 15:48] LABS: INR 1.8 (0.8-1.4); PROTHROMBIN TIME PATIENT 20.8 SEC (12.2-14.7)
[2017-12-02 15:57] LABS: ALANINE AMINOTRANSFERASE 17 U/L (0-55); ALKALINE PHOSPHATASE 103 U/L (40-136); BILIRUBIN,TOTAL 0.4 MG/DL (0.1-1.0); BUN/CREATININE RATIO 7; CALCIUM 9.3 MG/DL (8.5-10.1); CARBON DIOXIDE 23 MMOL/L (21-32); CHLORIDE 102 MMOL/L (98-107); CREATININE SERUM 0.72 MG/DL (0.60-1.30); GFR ESTIMATED > 60; GLUCOSE 109 MG/DL (70-105); MAGNESIUM 1.7 MG/DL (1.8-2.4); POTASSIUM 3.6 MMOL/L (3.6-5.0); SODIUM 137 MMOL/L (135-145)
[2017-12-02 16:09] LABS: DIGOXIN 0.4 NG/ML (0.80-2.00)
[2017-12-02 16:17] LABS: MYOGLOBIN SERUM 19.9 NG/ML (10.0-92.0)
[2017-12-02] MEDS ORDERED: ACETAMINOPHEN 500 MG TAB (TYLENOL) PO ONE (16:30)
--- NOTE | 2017-12-02 16:32 | Diagnostic Imaging Report ---
INDICATION: N/A. EXAMINATION: Portable erect AP chest at 3:54 p.m. FINDINGS: The cardiomegaly, sternotomy wires, surgical slips and the left-sided pacemaker seen on the prior exam of 09/13/2017 are again evident and no different. The lungs are clear. There is no sign of failure, pneumonia or a pleural effusion to suggest an acute abnormality. The mediastinum is not widened. The osseous structures are intact. The orthopedic fixation rods overlying the thoracic spine, seen previously, are again evident. IMPRESSION: There is cardiomegaly and evidence of prior cardiac surgery but there is no sign of an acute abnormality. Dictated by: Dictated on workstation # [id number]
[2017-12-02 17:34] VITALS: BP 114/84
== END 2017-12-02 17:34 | disposition home or self-care (01) ==
LOC: EDUNIT# 13:15 → ER 13:17
DX: R00.2 Palpitations (principal); K21.9 Gastro-esophageal reflux disease without esophagitis; G40.909 Epilepsy, unspecified, not intractable, without status epilepticus; I48.91 Unspecified atrial fibrillation; I10 Essential (primary) hypertension; J44.9 Chronic obstructive pulmonary disease, unspecified; F43.10 Post-traumatic stress disorder, unspecified; F41.9 Anxiety disorder, unspecified; F31.9 Bipolar disorder, unspecified; F17.210 Nicotine dependence, cigarettes, uncomplicated; Z86.14 Personal history of Methicillin resistant Staphylococcus aureus infection; Z79.01 Long term (current) use of anticoagulants; Z91.5 Personal history of self-harm; Z87.19 Personal history of other diseases of the digestive system; Z90.710 Acquired absence of both cervix and uterus; Z87.891 Personal history of nicotine dependence; Z95.0 Presence of cardiac pacemaker; Z95.2 Presence of prosthetic heart valve; Z88.2 Allergy status to sulfonamides; Z88.0 Allergy status to penicillin; Z88.8 Allergy status to other drugs, medicaments and biological substances; Z88.1 Allergy status to other antibiotic agents
CPT/HCPCS: 36415; 71045; 80053; 80162; 83735; 83874; 83880; 84443; 84484; 85025; 85610; 85730; 93005; 93041

== ENCOUNTER 2017-12-10 09:40 | Emergency (ER) | payer MEDICAID ==
[~2017-12-10] VITALS: Ht 160 cm; Wt 66.0 kg
--- OUTSIDE RECORDS SUMMARY | 2017-12-10 09:48 | XMS REPORT | Clinical Summary ---
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
[2017-12-10 10:18] LABS: BASOPHILS # (AUTO) 0.1 10^3/uL (0.0-0.1); BASOPHILS % (AUTO) 0 % (0-10); EOSINOPHILS # (AUTO) 0.6 10^3/uL (0.0-0.3); EOSINOPHILS % (AUTO) 4 % (0-10); HEMATOCRIT 26 % (35-52); HEMOGLOBIN 8.3 G/DL (11.5-16.0); LYMPHOCYTES # (AUTO) 3.1 X 10^3 (1.0-4.0); LYMPHOCYTES % (AUTO) 22 % (12-44); MEAN CORPUSCULAR HEMOGLOBIN 25 PG (25-34); MEAN CORPUSCULAR HGB CONC 32 G/DL (32-36); MEAN CORPUSCULAR VOLUME 76 FL (80-99); MEAN PLATELET VOLUME 9.8 FL (7.4-10.4); MONOCYTES # (AUTO) 0.9 X 10^3 (0.0-1.0); MONOCYTES % (AUTO) 7 % (0-12); NEUTROPHILS # (AUTO) 9.5 X 10^3 (1.8-7.8); NEUTROPHILS % (AUTO) 67 % (42-75); PLATELET COUNT 466 10^3/uL (130-400); RED BLOOD COUNT 3.37 10^6/uL (4.35-5.85); RED CELL DISTRIBUTION WIDTH 18.4 % (10.0-14.5); WHITE BLOOD COUNT 14.1 10^3/uL (4.3-11.0)
--- NOTE | 2017-12-10 10:18 | Diagnostic Imaging Report ---
INDICATION: Palpitations. Time of exam: 10:05 AM Correlation is made with prior exam from 12/02/2017. The heart is enlarged but stable. There are changes of median sternotomy. Cardiac pacemaker remains in place. Extensive spinal instrumentation throughout the thoracic spine is noted. The lungs are clear. No infiltrate or failure is detected. No effusion or pneumothorax is seen. IMPRESSION: Stable chest. No acute cardiopulmonary process is detected. Dictated by: Dictated on workstation # [id number]
[2017-12-10 10:27] LABS: PROTHROMBIN TIME PATIENT 22.5 SEC (12.2-14.7)
[2017-12-10 10:35] LABS: ALANINE AMINOTRANSFERASE 18 U/L (0-55); ALBUMIN 3.9 GM/DL (3.2-4.5); ALKALINE PHOSPHATASE 88 U/L (40-136); BILIRUBIN,TOTAL 0.5 MG/DL (0.1-1.0); BUN/CREATININE RATIO 10; CALCIUM 9.2 MG/DL (8.5-10.1); CARBON DIOXIDE 23 MMOL/L (21-32); CHLORIDE 107 MMOL/L (98-107); CREATININE SERUM 0.71 MG/DL (0.60-1.30); GFR ESTIMATED > 60; GLUCOSE 144 MG/DL (70-105); MAGNESIUM 1.9 MG/DL (1.8-2.4); POTASSIUM 3.8 MMOL/L (3.6-5.0); SODIUM 140 MMOL/L (135-145); TOTAL PROTEIN 7.4 GM/DL (6.4-8.2)
[2017-12-10 10:42] LABS: MYOGLOBIN SERUM 20.4 NG/ML (10.0-92.0)
[2017-12-10 10:59] LABS: AMPHETAMINE SCREEN, URINE NEGATIVE (NEGATIVE); BARBITURATE SCREEN URINE NEGATIVE (NEGATIVE); BENZODIAZEPINES SCREEN URINE NEGATIVE (NEGATIVE); CANNABINOID SCREEN, URINE POSITIVE (NEGATIVE); COCAINE SCREEN URINE NEGATIVE (NEGATIVE); METHADONE STAT NEGATIVE (NEGATIVE); METHAMPHETAMINE SCREEN URINE S NEGATIVE (NEGATIVE); OPIATE SCREEN URINE NEGATIVE (NEGATIVE); OXYCODONE STAT NEGATIVE (NEGATIVE); PROPOXYPHENE STAT NEGATIVE (NEGATIVE); TRICYCLIC ANTIDEPRESSANTS SCRE NEGATIVE (NEGATIVE)
[2017-12-10 11:01] LABS: BAND NEUTROPHILS 0 %; BASOPHILS % (MANUAL) 1 %; EOSINOPHILS % (MANUAL) 5 %; HYPOCHROMASIA MODERATE; LYMPHOCYTES % (MANUAL) 25 %; MONOCYTES % (MANUAL) 7 %; NEUTROPHILS % (MANUAL) 62 %; POLYCHROMASIA SLIGHT
[2017-12-10 11:02] LABS: ANISOCYTOSIS MARKED; SCHISTOCYTES SLIGHT; TARGET CELLS SLIGHT
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
[2017-12-10 11:50] VITALS: BP 111/53
== END 2017-12-10 11:54 | disposition home or self-care (01) ==
LOC: EDUNIT# 09:40 → ER 09:41
DX: I48.0 Paroxysmal atrial fibrillation (principal); F41.9 Anxiety disorder, unspecified; F31.9 Bipolar disorder, unspecified; J44.9 Chronic obstructive pulmonary disease, unspecified; F43.10 Post-traumatic stress disorder, unspecified; I10 Essential (primary) hypertension; G40.909 Epilepsy, unspecified, not intractable, without status epilepticus; M47.9 Spondylosis, unspecified; K21.9 Gastro-esophageal reflux disease without esophagitis; F15.90 Other stimulant use, unspecified, uncomplicated; F12.90 Cannabis use, unspecified, uncomplicated; F17.210 Nicotine dependence, cigarettes, uncomplicated; Z90.710 Acquired absence of both cervix and uterus; Z86.14 Personal history of Methicillin resistant Staphylococcus aureus infection; Z87.81 Personal history of (healed) traumatic fracture; Z99.81 Dependence on supplemental oxygen; Z90.49 Acquired absence of other specified parts of digestive tract; Z95.810 Presence of automatic (implantable) cardiac defibrillator; Z95.2 Presence of prosthetic heart valve; Z79.01 Long term (current) use of anticoagulants; Z88.0 Allergy status to penicillin; Z88.1 Allergy status to other antibiotic agents; Z88.2 Allergy status to sulfonamides; Z88.8 Allergy status to other drugs, medicaments and biological substances
CPT/HCPCS: 36415; 71045; 80053; 80306; 83735; 83874; 84484; 85007; 85027; 85610; 85730; 93005; 93041

== ENCOUNTER 2018-02-09 13:24 | Emergency (ER) | payer MEDICAID ==
[~2018-02-09] VITALS: Ht 157.5 cm; Wt 74.8 kg
[~2018-02-09 13:24] MED LIST changes: -RANI150T15 PO; +RANI150T46 PO
[2018-02-09] MEDS ORDERED: NS IV 1000 ML 1,000 ML ONE (13:39)
[2018-02-09] MEDS ORDERED: LORazepam INJ 2 MG/ML (ATIVAN) VIAL ONE (13:40)
[2018-02-09] MEDS ORDERED: LORazepam INJ 2 MG/ML (ATIVAN) VIAL IVP ONE (13:45)
[2018-02-09] MEDS ORDERED: NS IV 1000 ML 1,000 ML IV ONE (13:45)
[2018-02-09 13:54] LABS: BASOPHILS % (AUTO) 0 % (0-10); EOSINOPHILS # (AUTO) 0.1 10^3/uL (0.0-0.3); EOSINOPHILS % (AUTO) 1 % (0-10); HEMATOCRIT 27 % (35-52); LYMPHOCYTES % (AUTO) 16 % (12-44); MEAN CORPUSCULAR HEMOGLOBIN 22 PG (25-34); MEAN CORPUSCULAR HGB CONC 33 G/DL (32-36); MEAN CORPUSCULAR VOLUME 68 FL (80-99); MEAN PLATELET VOLUME 10.9 FL (7.4-10.4); MONOCYTES # (AUTO) 1.3 X 10^3 (0.0-1.0); MONOCYTES % (AUTO) 10 % (0-12); NEUTROPHILS # (AUTO) 9.2 X 10^3 (1.8-7.8); NEUTROPHILS % (AUTO) 72 % (42-75); PLATELET COUNT 500 10^3/uL (130-400); RED BLOOD COUNT 4.01 10^6/uL (4.35-5.85); RED CELL DISTRIBUTION WIDTH 17.7 % (10.0-14.5); WHITE BLOOD COUNT 12.6 10^3/uL (4.3-11.0)
[2018-02-09 14:09] LABS: ALANINE AMINOTRANSFERASE 29 U/L (0-55); ALBUMIN 4.2 GM/DL (3.2-4.5); ALKALINE PHOSPHATASE 117 U/L (40-136); BILIRUBIN,TOTAL 0.7 MG/DL (0.1-1.0); BUN/CREATININE RATIO 8; CALCIUM 9.4 MG/DL (8.5-10.1); CARBON DIOXIDE 23 MMOL/L (21-32); CHLORIDE 98 MMOL/L (98-107); CREATININE SERUM 0.88 MG/DL (0.60-1.30); GFR ESTIMATED > 60; GLUCOSE 117 MG/DL (70-105); POTASSIUM 3.4 MMOL/L (3.6-5.0); SALICYLATE < 5.0 MG/DL (5.0-20.0); SODIUM 137 MMOL/L (135-145); TOTAL PROTEIN 8.1 GM/DL (6.4-8.2)
[2018-02-09 14:10] LABS: ACETAMINOPHEN < 10 UG/ML (10-30)
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
--- NOTE | 2018-02-09 14:15 | Diagnostic Imaging Report ---
Indication: Confusion. Comparison: 12/10/2017 Findings: Enlargement of the cardiac silhouette unchanged in magnitude and configuration. Sternal wires, pacemaker device and spinal instrumentation stable. There is no vascular congestion and no edema, pneumonia, effusion or pneumothorax. Impression: Stable cardiomegaly and post interventional sequelae. Dictated by: Dictated on workstation # [id number]
[2018-02-09 14:57] LABS: BILIRUBIN,URINE NEGATIVE (NEGATIVE); CLARITY,URINE CLEAR; COLOR,URINE YELLOW; GLUCOSE, URINE (UA) NEGATIVE (NEGATIVE); KETONES,URINE NEGATIVE (NEGATIVE); LEUKOCYTE ESTERASE ,URINE NEGATIVE (NEGATIVE); NITRITE,URINE NEGATIVE (NEGATIVE); PH,URINE 7 (5-9); PROTEIN,URINE 1+ (NEGATIVE); UROBILINOGEN,URINE NORMAL (NORMAL)
[2018-02-09 15:08] LABS: BACTERIA,URINE TRACE /HPF
[2018-02-09 15:10] LABS: BENZODIAZEPINES SCREEN URINE NEGATIVE (NEGATIVE); COCAINE SCREEN URINE NEGATIVE (NEGATIVE)
[2018-02-09 15:11] LABS: AMPHETAMINE SCREEN, URINE NEGATIVE (NEGATIVE); BARBITURATE SCREEN URINE NEGATIVE (NEGATIVE); CANNABINOID SCREEN, URINE POSITIVE (NEGATIVE); METHADONE STAT NEGATIVE (NEGATIVE); METHAMPHETAMINE SCREEN URINE S POSITIVE (NEGATIVE); OPIATE SCREEN URINE NEGATIVE (NEGATIVE); OXYCODONE STAT NEGATIVE (NEGATIVE); PROPOXYPHENE STAT NEGATIVE (NEGATIVE); TRICYCLIC ANTIDEPRESSANTS SCRE NEGATIVE (NEGATIVE)
[2018-02-09 16:25] VITALS: BP 120/68
== END 2018-02-09 16:34 | disposition home or self-care (01) ==
LOC: EDUNIT# 13:24 → ER 13:25
DX: F41.9 Anxiety disorder, unspecified (principal); F43.10 Post-traumatic stress disorder, unspecified; F31.9 Bipolar disorder, unspecified; J44.9 Chronic obstructive pulmonary disease, unspecified; G40.909 Epilepsy, unspecified, not intractable, without status epilepticus; K21.9 Gastro-esophageal reflux disease without esophagitis; M47.9 Spondylosis, unspecified; F12.90 Cannabis use, unspecified, uncomplicated; F17.210 Nicotine dependence, cigarettes, uncomplicated; Z90.49 Acquired absence of other specified parts of digestive tract; Z90.710 Acquired absence of both cervix and uterus; Z95.2 Presence of prosthetic heart valve; Z87.19 Personal history of other diseases of the digestive system; Z87.81 Personal history of (healed) traumatic fracture; Z86.14 Personal history of Methicillin resistant Staphylococcus aureus infection; Z91.5 Personal history of self-harm; Z80.49 Family history of malignant neoplasm of other genital organs; Z88.0 Allergy status to penicillin; Z88.1 Allergy status to other antibiotic agents; Z88.2 Allergy status to sulfonamides; Z88.8 Allergy status to other drugs, medicaments and biological substances; Z88.6 Allergy status to analgesic agent
CPT/HCPCS: 36415; 71045; 80053; 80306; 80320; 80329; 81000; 83880; 85025; 96361; 96374

== ENCOUNTER 2018-02-15 08:48 | Observation (INO) | payer MEDICAID ==
[~2018-02-15] VITALS: Ht 160 cm; Wt 63.0 kg
--- OUTSIDE RECORDS SUMMARY | 2018-02-15 08:55 | XMS REPORT | Clinical Summary ---
Author Author [facility] Organization [facility] Address Unknown Phone Unavailable Care Team Providers Care Welt Stitcher Name Role Phone Janae Leblanc MD Unavailable [...] in the Health Information Management department at [phone] for further assistance in locating additional records.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
[2018-02-15 09:08] LABS: BASOPHILS # (AUTO) 0.1 10^3/uL (0.0-0.1); BASOPHILS % (AUTO) 0 % (0-10); EOSINOPHILS % (AUTO) 9 % (0-10); HEMATOCRIT 32 % (35-52); LYMPHOCYTES # (AUTO) 2.5 X 10^3 (1.0-4.0); LYMPHOCYTES % (AUTO) 22 % (12-44); MEAN CORPUSCULAR HEMOGLOBIN 22 PG (25-34); MEAN CORPUSCULAR HGB CONC 32 G/DL (32-36); MEAN CORPUSCULAR VOLUME 70 FL (80-99); MEAN PLATELET VOLUME 10.9 FL (7.4-10.4); MONOCYTES # (AUTO) 1.1 X 10^3 (0.0-1.0); MONOCYTES % (AUTO) 9 % (0-12); NEUTROPHILS # (AUTO) 6.9 X 10^3 (1.8-7.8); NEUTROPHILS % (AUTO) 60 % (42-75); PLATELET COUNT 604 10^3/uL (130-400); RED BLOOD COUNT 4.53 10^6/uL (4.35-5.85); RED CELL DISTRIBUTION WIDTH 18.7 % (10.0-14.5); WHITE BLOOD COUNT 11.6 10^3/uL (4.3-11.0)
[2018-02-15 09:16] LABS: INR 1.7 (0.8-1.4); PROTHROMBIN TIME PATIENT 20.1 SEC (12.2-14.7)
[2018-02-15 09:27] LABS: ALANINE AMINOTRANSFERASE 22 U/L (0-55); ALBUMIN 4.2 GM/DL (3.2-4.5); ALKALINE PHOSPHATASE 115 U/L (40-136); BILIRUBIN,TOTAL 0.4 MG/DL (0.1-1.0); BUN/CREATININE RATIO 12; CALCIUM 9.6 MG/DL (8.5-10.1); CARBON DIOXIDE 25 MMOL/L (21-32); CHLORIDE 100 MMOL/L (98-107); CREATININE SERUM 0.75 MG/DL (0.60-1.30); GFR ESTIMATED > 60; GLUCOSE 176 MG/DL (70-105); SODIUM 140 MMOL/L (135-145); TOTAL PROTEIN 8.1 GM/DL (6.4-8.2)
[2018-02-15 09:34] LABS: MYOGLOBIN SERUM 26.8 NG/ML (10.0-92.0)
[2018-02-15 09:37] LABS: POTASSIUM 2.5 MMOL/L (3.6-5.0)
--- NOTE | 2018-02-15 09:39 | Diagnostic Imaging Report ---
INDICATION: Chest pain and tachycardia. TIME OF EXAM: 9:17 AM Correlation is made with prior study from 02/10/2018. FINDINGS: Changes of median sternotomy are noted. Spinal instrumentation throughout the thoracic spine is noted. Cardiac pacer is in place. Heart is enlarged. No infiltrates are seen. Lungs are clear. There is no failure. No effusion or pneumothorax is identified. IMPRESSION: Stable chest. No acute feature is detected. Dictated by: Dictated on workstation # [id number]
[2018-02-15] MEDS ORDERED: POTASSIUM CL 10MEQ/50ML IVPB 50 ML IV ONE (09:45)
[2018-02-15] MEDS ORDERED: morphine INJ 10 MG/ML 1ML (SYR OR VIAL) IVP ONE (10:00)
[2018-02-15] MEDS ORDERED: NS IV 1000 ML 1,000 ML IV SCH (10:00)
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
[2018-02-15] MEDS ORDERED: KCL 10 MEQ TAB (MICRO K) PO ONE (11:30)
[2018-02-15 12:09] VITALS: BP 112/72
[2018-02-15] MEDS ORDERED: CATHETER FLUSH 10 ML SYR IV PRN (12:30)
--- NOTE | 2018-02-15 12:58 | Consultation-Cardiology ---
HPI-Cardiology Cardiology Consultation Date of Consultation 02/15/18 Date of Admission Time Seen by Provider: 11:30 Indication: Palpitation, chest pain HPI 37 years old lady with extensive history will be described below. Patient started to have recurrent palpitation and feeling rapid heart rate, did not feel well for few days. Told EMT and brought to the emergency room, pacemaker interrogation showed multiple episode of paroxysmal supraventricular tachycardia , heart rate is better controlled, currently in atrial paced rhythm. Expressed that she has been compliant with her medication but still smoke and uses drugs, expressed that the last time she used drugs was last week. Patient is sitting comfortably in bed, no active pain or palpitation at this time. Home Medications & Allergies Allergies: Coded Allergies: asenapine (Unverified Allergy, Severe, TOUNGE SWELLING, 04/01/15) ondansetron (Verified Allergy, Mild, 06/24/14) Penicillins (Unverified Allergy, Unknown, 06/07/14) Sulfa (Sulfonamide Antibiotics) (Unverified Allergy, Unknown, 04/22/11) erythromycin base (Verified Allergy, Unknown, 11/26/05) prochlorperazine (Verified Allergy, Unknown, 01/31/06) promethazine (Verified Allergy, Unknown, 01/31/06) promethazine HCl (Unverified Allergy, Unknown, 06/07/14) propoxyphene (Verified Allergy, Unknown, 11/26/05) Home Medication List Reviewed: Yes IZA-Mpkboa-Kcozlq Hx Patient Social History Alcohol Use: Denies Use Recreational Drug Use: Yes (CRYSTAL, WEED, PILLS ET CLEAN FOR 2 MONTHS) Drug of Choice: METH,POT Smoking Status: Current Everyday Smoker Type Used: Cigarettes 2nd Hand Smoke Exposure: Yes Recent Foreign Travel: No Recent Infectious Disease Expo: No Recent Hopitalizations: No Immunizations Up To Date Tetanus Booster (TDap): Unknown Date of Pneumonia Vaccine: Oct 22, 2012 Date of Influenza Vaccine: Aug 22, 2015 Past Medical History Past medical history is discussed below Family Medical History Significant Family History: No Pertinent Family Hx Family History: Alcoholism 19 MOTHER Depression Depression Diabetes mellitus 19 MOTHER Drug abuse 19 MOTHER FH: cancer of genital organ 19 MOTHER Constitutional: see HPI, fever, malaise, weakness EENTM: see HPI, no symptoms reported Respiratory: see HPI, cough, dyspnea on exertion, short of breath Cardiovascular: see HPI, chest pain, palpitations Gastrointestinal: no symptoms reported, see HPI Genitourinary: no symptoms reported, see HPI Musculoskeletal: no symptoms reported, see HPI, joint pain, muscle pain, muscle cramps Skin: see HPI Psychiatric/Neurological: No Symptoms Reported, See HPI Reviewed Test Results Reviewed Test Results Lab Laboratory Tests Test 02/15/18 08:56 Range/Units White Blood Count 11.6 H 4.3-11.0 10^3/uL Red Blood Count 4.53 4.35-5.85 10^6/uL Hemoglobin 10.0 #L 11.5-16.0 G/DL Hematocrit 32 L 35-52 % Mean Corpuscular Volume 70 L 80-99 FL Mean Corpuscular Hemoglobin 22 L 25-34 PG Mean Corpuscular Hemoglobin Concent 32 32-36 G/DL Red Cell Distribution Width 18.7 H 10.0-14.5 % Platelet Count 604 H 130-400 10^3/uL Mean Platelet Volume 10.9 H 7.4-10.4 FL Neutrophils (%) (Auto) 60 42-75 % Lymphocytes (%) (Auto) 22 12-44 % Monocytes (%) (Auto) 9 0-12 % Eosinophils (%) (Auto) 9 0-10 % Basophils (%) (Auto) 0 0-10 % Neutrophils # (Auto) 6.9 1.8-7.8 X 10^3 Lymphocytes # (Auto) 2.5 1.0-4.0 X 10^3 Monocytes # (Auto) 1.1 H 0.0-1.0 X 10^3 Eosinophils # (Auto) 1.0 H 0.0-0.3 10^3/uL Basophils # (Auto) 0.1 0.0-0.1 10^3/uL Prothrombin Time 20.1 H 12.2-14.7 SEC INR Comment 1.7 H 0.8-1.4 Activated Partial Thromboplast Time 35 24-35 SEC Sodium Level 140 135-145 MMOL/L Potassium Level 2.5 *L 3.6-5.0 MMOL/L Chloride Level 100 98-107 MMOL/L Carbon Dioxide Level 25 21-32 MMOL/L Anion Gap 15 H 5-14 MMOL/L Blood Urea Nitrogen 9 7-18 MG/DL Creatinine 0.75 0.60-1.30 MG/DL Estimat Glomerular Filtration Rate > 60 BUN/Creatinine Ratio 12 Glucose Level 176 H 70-105 MG/DL Calcium Level 9.6 8.5-10.1 MG/DL Magnesium Level 2.0 1.8-2.4 MG/DL Total Bilirubin 0.4 0.1-1.0 MG/DL Aspartate Amino Transf (AST/SGOT) 17 5-34 U/L Alanine Aminotransferase (ALT/SGPT) 22 0-55 U/L Alkaline Phosphatase 115 40-136 U/L Myoglobin 26.8 10.0-92.0 NG/ML Troponin I < 0.30 <0.30 NG/ML Total Protein 8.1 6.4-8.2 GM/DL Albumin 4.2 3.2-4.5 GM/DL Digoxin Level 0.40 L 0.80-2.00 NG/ML Physical Exam Vital Signs Vital Signs - First Documented 02/15/18 08:53 Temp 98.0 Pulse 109 Resp 24 B/P (MAP) 126/72 (90) Pulse Ox 100 O2 Delivery Nasal Cannula O2 Flow Rate 2.00 Capillary Refill : Less Than 3 Seconds General Appearance: No Apparent Distress, WD/WN Eyes: Bilateral Eye Normal Inspection, Bilateral Eye PERRL, Bilateral Eye EOMI HEENT: PERRL/EOMI, TMs Normal, Normal ENT Inspection, Pharynx Normal Neck: Full Range of Motion, Normal Inspection, Non Tender, Supple Respiratory: Chest Non Tender, Lungs Clear, Normal Breath Sounds, No Accessory Muscle Use, No Respiratory Distress Cardiovascular: Regular Rate, Rhythm, No Edema, Systolic Murmur, Friction Rub Gastrointestinal: Normal Bowel Sounds, No Organomegaly, No Pulsatile Mass, Non Tender, Soft Back: Normal Inspection, No CVA Tenderness, No Vertebral Tenderness Extremity: Normal Capillary Refill, Normal Inspection, Normal Range of Motion, Non Tender, No Calf Tenderness, No Pedal Edema Neurologic/Psychiatric: Alert, Oriented x3, No Motor/Sensory Deficits, Normal Mood/Affect Skin: Normal Color, Warm/Dry Lymphatic: No Adenopathy A/P-Cardiology Admission Diagnosis Paroxysmal supraventricular tachycardia Hypokalemia Melchor anomaly Leukocytosis Assessment/Plan Paroxysmal supraventricular tachycardia, history of paroxysmal atrial fibrillation, currently in atrial paced rhythm, EKG showed AV paced rhythm, still having few episodes of SVTs. I will restart her beta blockers and monitor closely. Hypokalemia, being replaced, monitored by primary care physician Leukocytosis, history of chronic leukocytosis. Followed and managed by primary care physician. History of Melchor anomaly, tricuspid valve replacement, infective endocarditis , awaiting second valve replacement, she is considered high risk for infection, she is required to be off illicit drugs for 6 months prior to be considered for second valve surgery, so far she has been unable to stay without drugs. Encouraged to avoid any illicit drugs History of multiple intentional drug overdose with suicide attempt Dual chamber pacemaker followed and managed by Dr. Banegas in [place] History of syncope Oral anticoagulation using Xarelto. History of abdominal hysterectomy and bilateral salpingo-oophorectomy History of noncompliance with medication. JORY BOWEN MD Feb 15, 2018 12:58
[2018-02-15] MEDS: CATHETER FLUSH 10 ML SYR IV SCH ×2 (13:19→20:36)
[2018-02-15] MEDS ORDERED: POTA20TA15 PO (13:53)
[2018-02-15] MEDS ORDERED: CIPR500T4 PO (13:53)
[2018-02-15] MEDS ORDERED: RISP1TAB3 PO (13:53)
[2018-02-15] MEDS ORDERED: PRAZ2CAP2 PO (13:53)
[2018-02-15] MEDS ORDERED: MIRT30TA6 PO (13:53)
[2018-02-15] MEDS ORDERED: PANT40TA3 PO (13:53)
[2018-02-15] MEDS ORDERED: POLY17PO6 PO (14:07)
[2018-02-15] MEDS: KCL 20 MEQ TAB (K-DUR) PO SCH ×2 (14:54→20:35)
[2018-02-15] MEDS: ACETAMINOPHEN 500 MG TAB (TYLENOL) PO PRN ×2 (14:55→20:35)
[2018-02-15 16:30] VITALS: BP 103/87
[2018-02-15 17:00] VITALS: BP 106/59
[2018-02-15 17:30] VITALS: BP 112/66
[2018-02-15 19:45] VITALS: BP 111/63
[2018-02-15 23:14] LABS: BUN/CREATININE RATIO 17; CALCIUM 8.9 MG/DL (8.5-10.1); CARBON DIOXIDE 25 MMOL/L (21-32); CHLORIDE 102 MMOL/L (98-107); GFR ESTIMATED > 60; GLUCOSE 110 MG/DL (70-105); POTASSIUM 3.2 MMOL/L (3.6-5.0); SODIUM 137 MMOL/L (135-145)
[2018-02-15] MEDS ORDERED: POTASSIUM CL 10MEQ/50ML IVPB 50 ML IV SCH (23:30)
[2018-02-16 04:29] LABS: HEMOGLOBIN 8.8 G/DL (11.5-16.0); MEAN PLATELET VOLUME 10.2 FL (7.4-10.4); RED CELL DISTRIBUTION WIDTH 18.6 % (10.0-14.5); WHITE BLOOD COUNT 9.6 10^3/uL (4.3-11.0)
[2018-02-16 04:50] LABS: ALANINE AMINOTRANSFERASE 67 U/L (0-55); ALBUMIN 3.7 GM/DL (3.2-4.5); ALKALINE PHOSPHATASE 134 U/L (40-136); BILIRUBIN,TOTAL 0.3 MG/DL (0.1-1.0); BUN/CREATININE RATIO 17; CALCIUM 9.5 MG/DL (8.5-10.1); CARBON DIOXIDE 27 MMOL/L (21-32); CHLORIDE 102 MMOL/L (98-107); CHOLESTEROL 127 MG/DL (< 200); CREATININE SERUM 0.63 MG/DL (0.60-1.30); GFR ESTIMATED > 60; GLUCOSE 116 MG/DL (70-105); HDL CHOLESTEROL 35 MG/DL (40-60); POTASSIUM 3.5 MMOL/L (3.6-5.0); SODIUM 138 MMOL/L (135-145); TOTAL PROTEIN 7.4 GM/DL (6.4-8.2); TRIGLYCERIDES 74 MG/DL (<150); VLDL CHOLESTEROL 15 MG/DL (5-40)
[2018-02-16] MEDS: CATHETER FLUSH 10 ML SYR IV SCH (05:44)
[2018-02-16 08:02] VITALS: BP 118/55
[2018-02-16] MEDS: ACETAMINOPHEN 500 MG TAB (TYLENOL) PO PRN (08:05)
--- NOTE | 2018-02-16 08:35 | Cardiology Progress Note ---
Subjective Date Seen by Provider: Feb 16, 2018 Time Seen by Provider: 08:34 Subjective/Events-last exam Patient is laying down in bed, denied any chest pain or shortness of breath. No palpitation was noted Review of Systems General: No Chills, No Night Sweats, No Fatigue, No Malaise, No Appetite, No Other HEENT: No Head Aches, No Visual Changes, No Eye Pain, No Ear Pain, No Dysphasia , No Sinus Congestion, No Post Nasal Drip, No Sore Throat, No Other Pulmonary: No Dyspnea, No Cough, No Pleuritic Chest Pain, No Other Cardiovascular: No: Chest Pain, Palpitations, Orthopnea, Paroxysmal Noc. Dyspnea, Edema, Lt Headedness, Other Objective-Cardiology Exam Last Set of Vital Signs Vital Signs 02/15/18 02/16/18 21:00 08:02 Temp 98.9 Pulse 60 Resp 20 B/P (MAP) 118/55 (76) Pulse Ox 96 O2 Delivery Room Air O2 Flow Rate 2.00 Capillary Refill : Less Than 3 Seconds I&O Intake and Output 02/16/18 00:00 Intake Total 2228 ml Balance 2228 ml Intake Oral 1978 ml IV Total 250 ml # Voids 5 Daily Weight Change No General: Alert, Oriented X3, Cooperative HEENT: Atraumatic, PERRLA Neck: Supple, No JVD, No Thyromegaly Lungs: Clear to Auscultation, Normal Air Movement Heart: Regular Rate, Normal S1, Normal S2, Other (Left-sided murmur) Abdomen: Normal Bowel Sounds, Soft, No Tenderness, No Hepatosplenomegaly, No Masses Extremities: No Clubbing, No Cyanosis, No Edema, Normal Pulses, No Tenderness/ Swelling Skin: No Breakdown Neuro: Normal Gait, Normal Speech, Strength at 5/5 X4 Ext, Normal Tone, Sensation Intact Results Lab Laboratory Tests 02/15/18 08:56 02/15/18 22:50 02/16/18 04:14 A/P-Cardiology Admission Diagnosis Paroxysmal supraventricular tachycardia Hypokalemia Melchor anomaly Leukocytosis Assessment/Plan Paroxysmal supraventricular tachycardia, history of paroxysmal atrial fibrillation, currently in atrial paced rhythm, monitored overnight on telemetry. No arrhythmia was detected Hypokalemia, better today, still mildly hypokalemic. I will give additional dose of potassium Leukocytosis, better at this time Anemia, worsening today. Monitored and followed by primary care physician History of Melchor anomaly, tricuspid valve replacement, infective endocarditis , awaiting second valve replacement, she is considered high risk for infection, she is required to be off illicit drugs for 6 months prior to be considered for second valve surgery, so far she has been unable to stay without drugs. Encouraged to avoid any illicit drugs History of multiple intentional drug overdose with suicide attempt Dual chamber pacemaker followed and managed by Dr. Banegas in [place] History of syncope Oral anticoagulation using Xarelto. History of abdominal hysterectomy and bilateral salpingo-oophorectomy History of noncompliance with medication. Clinical Quality Measures DVT/VTE Risk/Contraindication: Risk Factor Score Per Nursin RFS Level Per Nursing on Admit: 3=High JORY BOWEN MD Feb 16, 2018 08:35
[2018-02-16 11:18] VITALS: BP 111/58
[2018-02-16] MEDS ORDERED: KCL 20 MEQ TAB (K-DUR) PO ONE (11:45)
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
--- NOTE | 2018-02-16 12:33 | Discharge Instructions ---
Discharge [facility] Discharge Medications New, Converted or Re-Newed RX: Other (no medication changes) Continued Medications: Acetaminophen (Tylenol Extra Strength) 500 Mg Tablet 1399-4630 MG PO Q6H PRN for PAIN-MILD, TAB TAKES 2-4 (500 MG) TABLETS Calcium Carbonate (Tums Smoothies) 300 Mg Tab.chew 600 MG PO DAILY PRN for INDIGESTION, TAB TAKES 2 (300 MG) TABLETS Ciprofloxacin HCl (Ciprofloxacin HCl) 500 Mg Tablet 500 MG PO BID for 10 Days, TAB 10 DAY SUPPLY FILLED 02-11-18 Cyclobenzaprine HCl (Cyclobenzaprine HCl) 10 Mg Tablet 10 MG PO 0900,1700 PRN for MUSCLE SPASMS, TAB Digoxin (Digoxin) 125 Mcg Tablet 125 MCG PO DAILY, TAB Diltiazem HCl (Cartia Xt) 180 Mg Cap.er.24h 180 MG PO DAILY, CAP Furosemide (Furosemide) 40 Mg Tablet 20 MG PO BID, TAB LAST FILLED #15 11-26-17 TAKES 1/2 (40MG) TABLET Levetiracetam (Levetiracetam) 1,000 Mg Tablet 1000 MG PO BID, TAB Meclizine HCl (Meclizine HCl) 25 Mg Tablet 25 MG PO DAILY PRN for DIZZINESS, TAB Metoprolol Tartrate (Metoprolol Tartrate) 25 Mg Tablet 25 MG PO BID, TAB Mirtazapine (Mirtazapine) 30 Mg Tablet 30 MG PO HS, TAB Omeprazole (Omeprazole) 40 Mg Capsule.dr 40 MG PO DAILY, CAP Pantoprazole Sodium (Pantoprazole Sodium) 40 Mg Tablet.dr 40 MG PO HS, TAB Polyethylene Glycol 3350 (Miralax) 17 Gm Powd.pack 17 GM PO DAILY PRN for CONSTIPATION-2ND LINE, EACH Potassium Chloride (Potassium Chloride) 20 Meq Tab.er.prt 20 MEQ PO 0900,2000, TAB Prazosin HCl (Prazosin HCl) 2 Mg Capsule 2-4 MG PO HS, CAP Risperidone (Risperidone) 1 Mg Tablet 1 MG PO BID, TAB Rivaroxaban (Xarelto) 20 Mg Tablet 20 MG PO DAILY, TAB Patient Instructions Patient Instructions -follow up with Lexi Scott APRN next week -follow up with Assistant Controller, Dr. Baneags in 1-2 weeks -take medications as directed -heart healthy diet -avoid exposure to tobacco products and/or second hand smoke -return to ED for chest pain or pressure, shortness of breath out of normal for patient, nausea or vomiting that makes you unable to keep down clear liquids or medications for more than 12 hours, severe pain uncontrolled by home medications , fever >101 unrelieved by tylenol or ibuprofen, if directed by sonogram technician provider or any other emergent complaints or concerns Goal/Follow Up Appt: Lexi Scott - 1 week (pt not available on Sunday for appt) Dr. Banegas, Cardiology in 1-2 weeks (pt will make appt for herself on Sunday) Return to The Hospital For: return to ED for chest pain or pressure, shortness of breath out of normal for patient, nausea or vomiting that makes you unable to keep down clear liquids or medications for more than 12 hours, severe pain uncontrolled by home medications, fever >101 unrelieved by tylenol or ibuprofen, if directed by sonogram technician provider or any other emergent complaints or concerns Activity & Diet Discharge Diet: Cardiac Diet Activity as Tolerated: Yes Copy Copies To 1: [facility]/[place] SHAH DO Feb 16, 2018 12:33
== END 2018-02-16 12:28 | disposition home or self-care (01) ==
LOC: EDUNIT# 08:48 → ER 08:50 → UNDOADMOB 11:25 → ICU 11:25 → UNDODISOB 02-16 12:55
PROVIDERS: ADMIT Family Medicine; ATTEND Family Medicine
DX: I47.1 Supraventricular tachycardia (principal); E87.6 Hypokalemia; I48.0 Paroxysmal atrial fibrillation; R74.8 Abnormal levels of other serum enzymes; G40.909 Epilepsy, unspecified, not intractable, without status epilepticus; D64.9 Anemia, unspecified; M79.7 Fibromyalgia; Q24.8 Other specified congenital malformations of heart; D72.829 Elevated white blood cell count, unspecified; F19.10 Other psychoactive substance abuse, uncomplicated; F17.210 Nicotine dependence, cigarettes, uncomplicated; Z95.0 Presence of cardiac pacemaker; Z79.01 Long term (current) use of anticoagulants; Z91.14 Patient's other noncompliance with medication regimen; Z88.0 Allergy status to penicillin; Z88.1 Allergy status to other antibiotic agents; Z88.2 Allergy status to sulfonamides; Z88.8 Allergy status to other drugs, medicaments and biological substances
CPT/HCPCS: 36415; 71045; 80048; 80053; 80061; 80162; 83735; 83874; 84484; 85025; 85027; 85610; 85730; 93005; 93041; 96361; 96365; 96375

== ENCOUNTER → 2018-04-30 | Outpatient (CLI) | payer MEDICAID ==
[~2018-04-30] MED LIST changes: +LORA1TAB PO; +MIRT30TA6 PO; +POLY17PO6 PO; +PRAZ2CAP2 PO; +PRAZ5CAP2 PO; +RISP1TAB3 PO
--- NOTE | 2018-04-30 11:01 | Diagnostic Imaging Report ---
INDICATION: Right ankle pain and swelling. AP, oblique and lateral views of the right ankle are obtained. FINDINGS: There is mild ankle swelling which is most pronounced along the lateral aspect. No acute fracture or dislocation is identified. No abnormal lytic or sclerotic focus is seen, and there is no radiopaque foreign body. IMPRESSION: No acute osseous abnormality. Dictated by: Dictated on workstation # [id number]
== END ==
LOC: RAD 10:36
PROVIDERS: ATTEND Nurse Practitioner Family
DX: M25.571 Pain in right ankle and joints of right foot (principal); M25.471 Effusion, right ankle
CPT/HCPCS: 73610

== ENCOUNTER 2018-05-17 09:03 | Inpatient (IN) | payer MEDICAID ==
[~2018-05-17] VITALS: Ht 157.5 cm; Wt 63.1 kg
[~2018-05-17 09:03] MED LIST changes: -LORA1TAB PO; -PRAZ5CAP2 PO
[2018-05-17 09:25] LABS: BASOPHILS # (AUTO) 0.1 10^3/uL (0.0-0.1); BASOPHILS % (AUTO) 1 % (0-10); EOSINOPHILS # (AUTO) 0.4 10^3/uL (0.0-0.3); EOSINOPHILS % (AUTO) 3 % (0-10); HEMATOCRIT 27 % (35-52); HEMOGLOBIN 8.5 G/DL (11.5-16.0); LYMPHOCYTES # (AUTO) 3.7 X 10^3 (1.0-4.0); LYMPHOCYTES % (AUTO) 28 % (12-44); MEAN CORPUSCULAR HGB CONC 31 G/DL (32-36); MEAN CORPUSCULAR VOLUME 69 FL (80-99); MEAN PLATELET VOLUME 10.2 FL (7.4-10.4); MONOCYTES # (AUTO) 1.9 X 10^3 (0.0-1.0); MONOCYTES % (AUTO) 15 % (0-12); NEUTROPHILS % (AUTO) 54 % (42-75); PLATELET COUNT 513 10^3/uL (130-400); RED BLOOD COUNT 3.96 10^6/uL (4.35-5.85); RED CELL DISTRIBUTION WIDTH 19.2 % (10.0-14.5); WHITE BLOOD COUNT 13.1 10^3/uL (4.3-11.0)
[2018-05-17 09:31] LABS: MEAN CORPUSCULAR HEMOGLOBIN 21 PG (25-34)
[2018-05-17 09:37] LABS: INR 1.3 (0.8-1.4); PROTHROMBIN TIME PATIENT 16.4 SEC (12.2-14.7)
[2018-05-17 09:42] LABS: AMPHETAMINE SCREEN, URINE NEGATIVE (NEGATIVE); BARBITURATE SCREEN URINE NEGATIVE (NEGATIVE); BENZODIAZEPINES SCREEN URINE NEGATIVE (NEGATIVE); CANNABINOID SCREEN, URINE NEGATIVE (NEGATIVE); COCAINE SCREEN URINE NEGATIVE (NEGATIVE); METHADONE STAT NEGATIVE (NEGATIVE); METHAMPHETAMINE SCREEN URINE S POSITIVE (NEGATIVE); OPIATE SCREEN URINE NEGATIVE (NEGATIVE); OXYCODONE STAT NEGATIVE (NEGATIVE); PROPOXYPHENE STAT NEGATIVE (NEGATIVE); TRICYCLIC ANTIDEPRESSANTS SCRE NEGATIVE (NEGATIVE)
[2018-05-17] MEDS ORDERED: DILTIAZEM 25 MG/5 ML INJ (CARDIZEM) VIAL IVP ONE (09:45)
[2018-05-17] MEDS ORDERED: DILTIAZEM INJECTION 125 MG in D5W 100 ML IVPB 100 ML IV SCH (09:45)
[2018-05-17] MEDS ORDERED: LORazepam INJ 2 MG/ML (ATIVAN) VIAL IVP ONE (09:45)
[2018-05-17 09:46] LABS: ALANINE AMINOTRANSFERASE 15 U/L (0-55); ALBUMIN 4.1 GM/DL (3.2-4.5); ALKALINE PHOSPHATASE 133 U/L (40-136); BILIRUBIN,TOTAL 0.3 MG/DL (0.1-1.0); BUN/CREATININE RATIO 10; CALCIUM 9.2 MG/DL (8.5-10.1); CARBON DIOXIDE 23 MMOL/L (21-32); CHLORIDE 109 MMOL/L (98-107); CREATININE SERUM 0.71 MG/DL (0.60-1.30); GFR ESTIMATED > 60; GLUCOSE 123 MG/DL (70-105); MAGNESIUM 1.9 MG/DL (1.8-2.4); POTASSIUM 3.5 MMOL/L (3.6-5.0); SALICYLATE < 5.0 MG/DL (5.0-20.0); SODIUM 140 MMOL/L (135-145); TOTAL PROTEIN 7.5 GM/DL (6.4-8.2)
[2018-05-17] MEDS ORDERED: NS IV 500 ML 500 ML IV ONE (09:51)
[2018-05-17 09:52] LABS: MYOGLOBIN SERUM 20.9 NG/ML (10.0-92.0)
[2018-05-17 09:59] LABS: ACETAMINOPHEN 272 UG/ML (10-30)
[2018-05-17] MEDS ORDERED: D5W IV ONE ×6 (10:15→17:00)
[2018-05-17] MEDS ORDERED: ACETYLCYSTEINE IV ONE ×6 (10:15→17:00)
--- NOTE | 2018-05-17 10:58 | Diagnostic Imaging Report ---
Indication: Drug overdose. Portable chest 9:53 AM There are postop changes from valve repair surgery. Patient has is a dual-chamber pacemaker. There are Tavares rods for stabilization of scoliosis. Heart size and pulmonary vascular normal. Lungs are clear. There are no effusions or pneumothoraces. Impression: No acute abnormalities of the chest. Dictated by: Dictated on workstation # [id number]
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
[2018-05-17] MEDS: DILTIAZEM 125 MG/D5W 100 ML DRIP IV SCH ×2 (13:00)
[2018-05-17] MEDS ORDERED: CATHETER FLUSH 10 ML SYR IV PRN (13:15)
[2018-05-17 14:00] VITALS: BP 139/70
[2018-05-17] MEDS: CATHETER FLUSH 10 ML SYR IV SCH ×2 (14:56→20:42)
[2018-05-17 15:00] VITALS: BP 123/68
[2018-05-17] MEDS ORDERED: LORA10TA7 PO ×2 (15:15)
[2018-05-17] MEDS ORDERED: PRAZ5CAP2 PO ×2 (15:15)
[2018-05-17 16:00] VITALS: BP 165/78
[2018-05-17] MEDS ORDERED: LORazepam INJ 2 MG/ML (ATIVAN) VIAL ONE (16:27)
[2018-05-17] MEDS ORDERED: LORazepam INJ 2 MG/ML (ATIVAN) VIAL IVP NR ×2 (16:30→22:00)
[2018-05-17 17:00] VITALS: BP 140/84
--- OUTSIDE RECORDS SUMMARY | 2018-05-17 17:37 | XMS REPORT | Encounter Summary ---
Author Author [facility] Organization [facility] Address Unknown Phone Unavailable Care Team Providers Care Marketing Communications Leader Name Role Phone Janae Leblanc MD Unavailable Nigel Adame MD Unavailable Marisol Leong RN Unavailable Unavailable Betty Phillips MD Unavailable Werner Rodriguez MD PCP Rosita Marr APRN Unavailable Koko Voss MD Unavailable Encounter Details Date Type Department Care Team Description 03/05/2018 [facility] Nigel Adame MD Encounter Hospital Radiology [address] [facility] [address] [place] [address] [address] FLO[address] [phone] [place] [address] [phone] Social History Tobacco Use Types Packs/Day Years Used Date Current Every Day Smoker Cigarettes 2 18 Smokeless Tobacco: Never Used Alcohol Use Drinks/Week oz/Week Comments No 0 Standard 0.0 drinks or equivalent Sex Assigned at Date Recorded Not on file as of this encounter Medications at Time of Discharge Medication Sig. Disp. Refills Start Date End Date albuterol (VENTOLIN HFA, Inhale 2 Puffs by mouth PROAIR HFA) 90 Every 6 Hours as needed mcg/Actuation inhaler for Wheezing. albuterol 0.083% Inhale 2.5 mg solution as (PROVENTIL; VENTOLIN) 2.5 directed three times mg /3 mL (0.083 %) daily. nebulizer solution Ascorbic Acid 100 mg Tab Take 1 Tab by mouth at bedtime daily. calcium carbonate Take 1 Tab by mouth twice 90 Tab 0 11/15/2012 (OS-SHARA) 1250 mg tablet daily with meals. estradiol (ESTRACE) 2 mg Take 2 mg by mouth daily. tablet furosemide (LASIX) 40 mg Take 40 mg by mouth tablet daily. metoprolol XL (TOPROL XL) Take 50 mg by mouth 50 mg tablet daily. potassium chloride SR Take 1 Tab by mouth (K-DUR) 20 mEq tablet Daily. rivaroxaban (XARELTO) 20 Take 1 Tab by mouth daily 06/13/2016 mg tab tablet with breakfast. as of this encounter Plan of Treatment Not on fileas of this encounter Results * WRIST COMP MIN 3 VIEWS BILAT (03/05/2018 12:39 PM) Impressions Performed At Findings/impression: [facility] RESULTS 1. There is redemonstration of arthrodesis of the wrist with bridging dorsal fixation plate from the radius to the third metacarpal. There is solid osseous incorporation. Alignment is maintained. No abnormal periprosthetic lucency. 2. Moderate degenerative change of the distal radial articulation with scalloping deformity of the radial metaphysis adjacent to the distal ulna, unchanged from prior study. 3. There has been interval removal of the fixation plate and screws on the ulna with lucent screw tracks remaining. Left wrist: 1. No acute osseous abnormality. There is normal alignment of the osseous structures. Joint spaces are maintained. 2. There is a lucency in the scaphoid which may reflect a cyst or enchondroma. Finalized by Kwaku Holland M.D. on 03/05/2018 1:31 PM. Dictated by Kwaku Holland M.D. on 03/05/2018 12:48 PM. Narrative Performed At Bilateral wrist 4 views [facility] RESULTS Indication: 37-year-old female, bilateral wrist pain Comparison June 16, 2014 Procedure Note Interface, Radiant Results - 03/05/2018 1:34 PM CDT Bilateral wrist 4 views Indication: 37-year-old female, bilateral wrist pain Comparison June 16, 2014 IMPRESSION Findings/impression: 1. There is redemonstration of arthrodesis of the wrist with bridging dorsal fixation plate from the radius to the third metacarpal. There is solid osseous incorporation. Alignment is maintained. No abnormal periprosthetic lucency. 2. Moderate degenerative change of the distal radial articulation with scalloping deformity of the radial metaphysis adjacent to the distal ulna, unchanged from prior study. 3. There has been interval removal of the fixation plate and screws on the ulna with lucent screw tracks remaining. Left wrist: 1. No acute osseous abnormality. There is normal alignment of the osseous structures. Joint spaces are maintained. 2. There is a lucency in the scaphoid which may reflect a cyst or enchondroma. Finalized by Kwaku Holland M.D. on 03/05/2018 1:31 PM. Dictated by Kwaku Holland M.D. on 03/05/2018 12:48 PM. Performing Organization Address City/State/Zipcode Phone Number [facility] RESULTS in this encounter Visit Diagnoses Diagnosis Bilateral wrist pain Pain in joint, forearm
--- OUTSIDE RECORDS SUMMARY | 2018-05-17 17:37 | XMS REPORT ---
Author Author FRANCHESKA HEADLEY Organization [facility] Address [address] [place] [address] Care Team Providers Care Labor Service Representative Name Role Phone FRANCHESKA HEADLEY Unavailable PROBLEMS Type Condition ICD9-CM Code MYA58-ME Code Onset Dates Condition Status SNOMED Code Problem Anxiety F41.9 Active 92993712 Problem Seasonal allergic rhinitis, unspecified allergic rhinitis trigger J30.2 Active 185494035 Problem Other chronic pain G89.29 Active 22748039 Problem Chronic fatigue R53.82 Active 93855098 Problem Seizure disorder G40.909 Active 098714953 Problem Unsteady gait R26.81 Active 94139256 Problem Infection of right eye H44.001 Active [id number] Problem Lumbago with sciatica, left side M54.42 Active 127547214 Problem Chronic pain syndrome G89.4 Active 722924082 Problem Fibromyalgia M79.7 Active 232316471 Problem Atrial fibrillation, unspecified type I48.91 Active 10498853 Problem Esophagitis, reflux K21.0 Active 120336770 Problem Primary insomnia F51.01 Active 049071937 Problem Edema, due to unspecified malnutrition type, unspecified type R60.9 Active 788968701 Problem Polysubstance (excluding opioids) dependence F19.20 Active 62534156 Problem Congestive heart failure, unspecified congestive heart failure chronicity, unspecified congestive heart failure type I50.9 Active 87218518 Problem COPD (chronic obstructive pulmonary disease) with acute bronchitis J44.0 Active 632119291997233 Problem Unspecified mood [affective] disorder F39 Active 158992434 Problem Major depressive disorder, recurrent episode, severe F33.2 Active 678175783172 Problem Lumbago with sciatica, right side M54.41 Active 306737214 ALLERGIES No Information ENCOUNTERS Encounter Location Date Diagnosis [facility] [address] [facility] [id number] [address] February, [facility] [id number] [place] [address] 76266 -5786 February, Hordeolum externum of right upper eyelid H00.011 and Paronychia of finger of right hand L03.011 [facility] [id number] [place] [address] 74363- 4520 February, [place] [address] 87173- 5[address] February, Primary insomnia F51.01 ; Atrial fibrillation, unspecified type I48.91 ; Unsteady gait R26.81 ; General weakness R53.1 ; Chronic fatigue R53.82 ; Hypokalemia E87.6 and Other chronic pain G89.29 [place] [id number] [place] [address] 69077- 7611 February, [place] [address] 92788- 9954 Jan, Lumbago with sciatica, right side M54.41 [place] [address] 73951- 7906 Jan, Anxiety F41.9 ; Chronic pain syndrome G89.4 ; Folliculitis L73.9 and Fibromyalgia M79.7 [place] [id number] [place] [address] 77201- 2584 Jan, Lumbago with sciatica, right side M54.41 [place] [id number] [place] [address] 15379- 6395 Dec, [place] [id number] [place] [address] 10852- 1376 Nov, Lumbago with sciatica, right side M54.41 [place] [id number] [place] [address] 81457- 9296 Nov, [place] [address] 11758- 8829 Nov, Unspecified mood [affective] disorder F39 ; Hypokalemia E87.6 and Anemia, unspecified type D64.9 [place] [address] 44037- 5252 Nov, [place] [address] 03500- 3741 Oct, Lumbago with sciatica, right side M54.41 [facility] [place] [address] 23528 -1392 Aug, Congestive heart failure, unspecified congestive heart failure chronicity, unspecified congestive heart failure type I50.9 and Peripheral edema R60.9 [place] [address] 85162- 2572 Aug, Polysubstance (excluding opioids) dependence F19.20 and Lumbago with sciatica, left side M54.42 [place] [address] 02717- 9180 Aug, [facility] [place] [address] 04912 -7870 Aug, Infection of right eye H44.001 [place] [address] 20807- 9671 14 Aug, 2017 Congestive heart failure, unspecified congestive heart failure chronicity, unspecified congestive heart failure type I50.9 and Other chronic pain G89.29 [place] [id number] [place] [address] 50760- 6844 Aug, Lumbago with sciatica, right side M54.41 [place] [address] 36663- 4111 Aug, Lumbago with sciatica, right side M54.41 [place] [address] 63750- 5282 Aug, [place] [address] [place] [address] Jul, [facility] [id number] [place] [address] 85779- 0838 Jul, COPD (chronic obstructive pulmonary disease) with acute bronchitis J44.0 ; Atrial fibrillation, unspecified type I48.91 ; Polysubstance (excluding opioids) dependence F19.20 ; Congestive heart failure, unspecified congestive heart failure chronicity, unspecified congestive heart failure type I50.9 and Lumbago with sciatica, right side M54.41 [facility] [address] [place] [id number] [place] [address] [id number] Jul, [facility] [id number] [place] [address] 14388- 4986 Jul, Seizure disorder G40.909 [facility] [id number] [place] [address] 76281- 9115 Jul, Lumbago with sciatica, right side M54.41 [facility] [id number] [place] [address] 49499- 7028 Jul, [facility] [id number] [place] [address] 78901- 4017 Jun, Congestive heart failure, unspecified congestive heart failure chronicity, unspecified congestive heart failure type I50.9 ; Lumbago with sciatica, right side M54.41 and Other chronic pain G89.29 [facility] [id number] [place] [address] 32109- 2532 Jun, [facility] [address] [address] 2906 Jun, [facility] [address] [place] [id number] [place] [address] 19225- 2448 May, Lumbago with sciatica, left side M54.42 [facility] [address] [address]73 May, [facility] [address] 44134 -5338 May, Unspecified fall, initial encounter W19.XXXA [place] [address] 78836- 5788 May, Lumbago with sciatica, right side M54.41 [place] [address] 44004- 7064 May, [place] [address] 91328- 3431 May, Bloating R14.0 and Right hip pain M25.551 [place] [address] 95936- 7337 Apr, [place] [address] 51919- 3648 Apr, Lumbago with sciatica, left side M54.42 [place] [address] 07127- 0443 Mar, [facility] [place] [address] 26054 -5176 Mar, Lumbago with sciatica, right side M54.41 [facility] [place] [address] 16296 -5084 Mar, Abdominal distension R14.0 [place] [address] 46170- 8439 Mar, Periumbilical abdominal pain R10.33 and Diarrhea, unspecified type R19.7 [facility] [address] [address] February, Seasonal allergic rhinitis, unspecified allergic rhinitis trigger J30.2 ; Acute middle ear effusion, bilateral H65.193 and Lumbago with sciatica, right side M54.41 [place] [address] 30375- 5927 February, Routine gynecological examination Z01.419 [facility] [id number] [place] [address] 02636- 4460 Jan, [place] [address] 96419- 0032 Jan, Atrial fibrillation, unspecified type I48.91 [facility] [address] 52616 -9722 Jan, Lumbago with sciatica, right side M54.41 and Wound, open, toe, initial encounter S91.109A [facility] [address] [id number] Jan, [facility] [address] 11890 -4232 Jan, Acute bilateral low back pain without sciatica M54.5 [place] [address] 50477- 3140 Dec, Congestive heart failure, unspecified congestive heart failure chronicity, unspecified congestive heart failure type I50.9 [place] [address] 45981- 8198 Dec, [place] [address] 28099- 9836 Dec, Thrush, oral B37.0 and Lumbago with sciatica, right side M54.41 [place] [address] 05522- 1869 Dec, [place] [address] 67567- 6097 Nov, [place] [address] 26554- 9951 Nov, [place] [address] 48667- 9427 Oct, Polysubstance (excluding opioids) dependence F19.20 ; Other chronic pain G89.29 and Lumbago with sciatica, right side M54.41 [facility] [id number] [place] [address] 53496 2546 Oct, [facility] [id number] [place] [address] 70999- 2546 Aug, Lumbago with sciatica, right side M54.41 ; Other chronic pain G89.29 and Anxiety F41.9 [facility] [id number] [place] [address] 27239- 7216 Aug, [facility] [id number] [place] [address] 35804- 1216 Aug, [facility] [id number] [place] [address] 53893- 5146 Aug, [facility] [id number] [place] [address] 69749- 6616 Aug, [facility] [id number] [place] [address] 89269 2541 Aug, [facility] [id number] [place] [address] 34700- 2500 Aug, [facility] [id number] [place] [address] 08665- 1074 Jul, Unspecified mood [affective] disorder F39 and Seizure disorder G40.909 [facility] [id number] [place] [address] 12931- 0859 Jul, [facility] [id number] [place] [address] 42396- 7946 Jul, [facility] [id number] [place] [address] 58804- 7323 Jul, Unspecified mood [affective] disorder F39 and Seizure disorder G40.909 [facility] [id number] [place] [address] 54063- 3628 Jul, Polysubstance (excluding opioids) dependence F19.20 ; COPD ( chronic obstructive pulmonary disease) with acute bronchitis J44.0 ; Congestive heart failure, unspecified congestive heart failure chronicity, unspecified congestive heart failure type I50.9 ; Radiculopathy of lumbosacral region M54.17 and Radiculopathy, thoracic region M54.14 [facility] [id number] [place] [address] 23278- 0918 Jun, Lumbago M54.5 [facility] [id number] [place] [address] 12166- 8203 May, [facility] [address] [id number] [place] [address] 75282- 2675 May, [facility] [address] [place] [id number] [place] [address] 25696- 6535 May, [facility] [address] [place] [id number] [place] [address] 80501- 4034 Apr, COPD (chronic obstructive pulmonary disease) with acute bronchitis J44.0 [facility] [id number] [place] [address] 64772- 8150 Apr, Major depressive disorder, recurrent episode, severe F33.2 and Polysubstance (excluding opioids) dependence F19.20 [facility] [id number] [place] [address] 72432- 5293 Mar, Major depressive disorder, recurrent episode, severe F33.2 and Polysubstance (excluding opioids) dependence F19.20 [facility] [address] [place] [address] 45007- 5226 Mar, Major depressive disorder, recurrent episode, severe F33.2 and Polysubstance (excluding opioids) dependence F19.20 [facility] [address] [place] [address] 17404- 4997 Mar, Major depressive disorder, recurrent episode, severe F33.2 and Polysubstance (excluding opioids) dependence F19.20 [facility] [id number] [place] [address] 66771- 0520 February, Major depressive disorder, recurrent episode, severe F33.2 and Polysubstance (excluding opioids) dependence F19.20 [facility] [id number] [place] [address] 20813- 3054 February, [place] [address] 89819- 4319 February, COPD (chronic obstructive pulmonary disease) with acute bronchitis J44.0 [facility] [address] 92262 -9420 February, Sore throat J02.9 and Bronchitis J40 [place] [address] 28218- 2721 Jan, COPD (chronic obstructive pulmonary disease) with acute bronchitis J44.0 [place] [address] 68272- 1945 Jan, COPD (chronic obstructive pulmonary disease) with acute bronchitis J44.0 [place] [address] 21373- 1652 Jan, [place] [address] 77724- 0100 Dec, Gastritis K29.70 ; Constipation K59.00 and Lumbago M54.5 [place] [address] 24209- 1908 Dec, COPD (chronic obstructive pulmonary disease) with acute bronchitis J44.0 [place] [address] [place] [id number] [place] [address] 16606- 9772 Nov, Major depressive disorder, recurrent episode, severe F33.2 and Polysubstance (excluding opioids) dependence F19.20 [facility] [id number] [place] [address] 67359 -8630 Oct, Oral thrush B37.0 and Drug abuse F19.10 [facility] [id number] [place] [address] 50176- 3336 Oct, [facility] [id number] [place] [address] 30106- 7366 Sep, COPD (chronic obstructive pulmonary disease) with acute bronchitis J44.0 ; Esophagitis, reflux K21.0 ; Seizure disorder G40.909 ; Primary insomnia F51.01 ; Edema, due to unspecified malnutrition type, unspecified type R60.9 ; Arthritis M19.90 and Thrush B37.0 [facility] [address] [id number] [place] [address] 23645- 1675 Aug, [facility] [address] [id number] [place] [address] 49184- 1544 Aug, [facility] [address] [id number] [place] [address] 98089- 4218 Aug, [facility] [id number] [place] [address] 91803- 1211 Jul, [facility] [address] [id number] [place] [address] 38563- 0797 Jun, [facility] [address] [place] [id number] [place] [address] 70388- 9609 Jun, Counseling on substance use and abuse V65.42 and Obstructive chronic bronchitis, with (acute) exacerbation 491.21 [facility] [address] [place] [id number] [place] [address] 33004- 6947 May, [facility] [address] [id number] [place] [address] 21871- 5804 Apr, [facility] [id number] [place] [address] 91354- 4177 Apr, Abdominal pain 789.00 and Back pain 724.5 [facility] [id number] [place] [address] 48934- 5054 Mar, Back pain 724.5 and Illicit drug use 305.90 [facility] [address] [address]- 8975 February, Onychomycosis 110.1 [facility] [id number] [place] [address] 452808- 2021 February, Breast cancer screening V76.10 [facility] [id number] [place] [address] 024527- 8016 February, [facility] [id number] [place] [address] 08518- 1708 February, [facility] [id number] [place] [address] 692737- 1009 February, Cough 786.2 ; Obstructive chronic bronchitis, with (acute) exacerbation 491.21 ; Vomiting 787.03 ; 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 and Gastritis 535.50 [facility] [id number] [place] [address] 50716- 3368 Jan, [facility] [id number] [place] [address] 32512- 9595 Jan, [facility] [id number] [place] [address] 53204- 9216 24 Dec, 2014 [facility] [address] [address]- 4713 Dec, [facility] [id number] [address]- 9711 20 Dec, 2014 [facility] [id number] [place] [address] 53354- 6739 Dec, [facility] [id number] [place] [address] [id number]- 1102 Dec, [facility] [address] 9580 Dec, [facility] [id number] [place] [address] 62358- 1206 Dec, [facility] [place] [facility] [address] [id number] [place] [address]- 7647 Dec, [facility] [place] [facility] [address] [id number] [place] [address]- 5059 Dec, [facility] [place] [facility] [address] [id number] [place] [address]- 2813 Sep, [facility] [place] [facility] [address] [id number] [place] [address]- 7591 Sep, [facility] [place] [facility] [address] [id number] [place] [address]- 7155 Sep, [facility] [place] [facility] [address] [id number] [place] [address]- 4949 Sep, [facility] [place] [facility] [address] [id number] [place] [address]- 3491 Sep, [facility] [place] [facility] [address] [id number] [place] [address]- 0094 Sep, [facility] [place] [facility] [address] [id number] [place] [address]- 9598 Sep, [facility] [place] [facility] [address] [id number] [place] [address]- 8334 Sep, [facility] [place] [facility] [address] [id number] [place] [address]- 2949 Sep, [facility] [place] [facility] [address] [id number] [address]- 6315 Sep, [facility] [place] [facility] [address] [id number] [place] [address]- 5980 Aug, [facility] [place] [facility] [address] [id number] [place] [address]- 5312 Aug, [facility] [place] [facility] [address] [id number] [place] [address]- 1335 Aug, [facility] [place] [facility] [address] [id number] [place] [address]- 0621 Aug, [facility] [place] [facility] [address] [id number] [place] [address]- 9991 Jul, [facility] [place] [facility] [address] [id number] [place] [address]- 0093 Jul, [facility] [place] [facility] [address] [id number] [place] [address]- 6555 Jun, [facility] [place] [facility] [address] [id number] [place] [address]- 1828 Jun, [facility] [place] [facility] [address] [id number] [place] [address]- 7968 May, [facility] [place] [facility] [address] [id number] [place] [address]- 2185 May, [facility] [place] [facility] [address] [id number] [place] [address]- 1363 May, [facility] [place] [facility] [address] [id number] [place] [address]- 2880 May, [facility] [place] [facility] [address] [id number] [place] [address]- 8468 May, [facility] [place] [facility] [address] [id number] [place] [address]- 8801 May, [facility] [place] [facility] [address] [id number] [place] [address]- 5199 Apr, [facility] [place] [facility] [address] [id number] [place] [address]- 6120 Apr, [facility] [place] [facility] [address] [id number] [place] [address]- 8169 Apr, [facility] [place] [facility] [address] [id number] [place] [address]- 5236 Apr, [facility] [place] [facility] [address] [id number] [place] [address]- 0828 February, [facility] [place] [facility] [address] [id number] [place] [address]- 4744 February, [facility] [address] [id number] [place] [address]- 3858 Oct, [facility] [address] [id number] [place] [address]- 8410 Oct, [facility] [address] [id number] [place] [address]- 3318 Oct, [facility] [address] [id number] [place] [address]- 7705 Oct, [facility] [address] [id number] [place] [address] Sep, [facility] [address] [id number] [place] [address] Sep, [facility] [address] [id number] [place] [address] Sep, [facility] [address] [id number] [place] [address] Sep, [facility] [address] [id number] [place] [address] Aug, [facility] [address] [id number] [place] [address] Aug, [facility] [address] [id number] [address] Aug, [facility] [place] [facility] [address] [id number] [place] [address] Aug, [facility] [place] [facility] [address] [id number] [place] [address] Jul, [facility] [place] [facility] [address] [id number] [place] [address] Jul, [facility] [place] [facility] [address] [id number] [place] [address] Jul, [facility] [place] [facility] [address] [id number] [place] [address] Jul, [facility] [place] [facility] [address] [id number] [place] [address] Jul, [facility] [place] [facility] [address] [id number] [place] [address] Jul, [facility] [place] [facility] [address] [id number] [place] [address] Jul, [facility] [place] [facility] [address] [id number] [place] [address] Jul, [facility] [place] [facility] [address] [id number] [place] [address] Jul, [facility] [place] [facility] [address] [id number] [place] [address] Jul, [facility] [place] [facility] [address] [id number] [place] [address] Jun, [facility] [place] [facility] [address] [id number] [place] [address] May, [facility] [place] [facility] [address] [id number] [place] [address] Apr, [facility] [place] [facility] [address] [id number] [place] [address] Apr, [facility] [place] [facility] [address] [id number] [place] [address] Apr, [facility] [place] [facility] [address] [id number] [place] [address] [address] Mar, [facility] [place] [facility] [address] [id number] [place] [address] Mar, [facility] [place] [facility] [address] [id number] [place] [address] Mar, [facility] [place] [facility] [address] [id number] [place] [address] 18 Mar, 2013 [facility] [address] [facility] [id number] [place] [address] Mar, [facility] [address] [facility] [id number] [place] [id number] Sep, [facility] [address] [facility] [id number] [place] [address] February, [facility] [address] [facility] [id number] [place] [address] Jan, IMMUNIZATIONS No Known Immunizations SOCIAL HISTORY Never Assessed REASON FOR VISIT Rx request PLAN OF CARE VITAL SIGNS MEDICATIONS Unknown Medications RESULTS No Results PROCEDURES No Known procedures INSTRUCTIONS MEDICATIONS ADMINISTERED No Known Medications MEDICAL (GENERAL) HISTORY Type Description Date Medical [...] suicide attempt 08/2016 Hospitalization History throat bleeding 2016 Hospitalization History A fib with [facility] 02/06/17 Hospitalization History Altered mental status, lethargy-[facility] 07/10/17 Hospitalization History Chest pain-[facility] 08/05/17 Hospitalization History [facility] 10/2017 Hospitalization History Low potassium, A fib 01/2018
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
--- OUTSIDE RECORDS SUMMARY | 2018-05-17 17:37 | XMS REPORT | Clinical Summary ---
Author Author [facility] Organization [facility] Address Unknown Phone Unavailable Care Team Providers Care Regulatory Internship Name Role Phone Janae Leblanc MD Unavailable [...] in the Health Information Management department at [phone] for further assistance in locating additional records.[facility] Allergies Active Allergy Reactions Severity Noted [...] 40 mg by mouth Active tablet daily. metoprolol XL (TOPROL XL) Take 50 mg by mouth Active 50 mg tablet daily. Ascorbic Acid 100 mg Tab Take 1 Tab by mouth at Active bedtime daily. albuterol 0.083% Inhale 2.5 mg solution as Active (PROVENTIL; VENTOLIN) 2.5 directed three times mg /3 mL (0.083 %) daily. nebulizer solution calcium carbonate Take 1 Tab by mouth twice 90 Tab 0 11/15/19 Active (OS-SHARA) 1250 mg tablet daily with meals. 13 rivaroxaban (XARELTO) 20 Take 1 Tab by mouth daily 06/13/20 Active mg tab tablet with breakfast. 16 Active Problems Problem Noted Date Numbness and tingling in left hand 03/05/2018 Carpal tunnel syndrome of right wrist 12/08/2014 [...] right wrist 09/04/2011 Malunion of fracture 09/04/2011 Encounters Date Type Specialty Care Team Description 03/05/2018 Hospital Radiology Nigel Adame MD Encounter 03/05/2018 Office Visit Orthopedic Surgery Nigel Adame MD Bilateral wrist pain (Primary Dx); Numbness and tingling in left hand 03/05/2018 Ancillary Orthopedic Surgery Nigel Adame MD Bilateral wrist pain Orders from Last 3 Months Family History Medical History Relation Name Comments [...] Pulse 74 03/05/2018 12:32 PM CDT Temperature 36.4 C (97.5 F) 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
--- OUTSIDE RECORDS SUMMARY | 2018-05-17 17:37 | XMS REPORT | Encounter Summary ---
Author Author [facility] Organization [facility] Address Unknown Phone Unavailable Care Team Providers Care Associate Financial Planner Name Role Phone Janae Leblanc MD Unavailable Nigel Adame MD Unavailable Marisol Leong RN Unavailable Unavailable Betty Phillips MD Unavailable Werner Rodriguez MD PCP Rosita Marr APRN Unavailable Koko Voss MD Unavailable Encounter Details Date Type Department Care Team Description 03/05/2018 Ancillary [facility] Nigel Adame MD Bilateral wrist pain Orders Physicians - Orthopedics [address] [facility] [address] [place] [address] [place] [address] [place] [address] Social History Tobacco Use Types Packs/Day Years Used Date Current Every Day Smoker Cigarettes 2 18 Smokeless Tobacco: Never Used Alcohol Use Drinks/Week oz/Week Comments No 0 Standard 0.0 drinks or equivalent Sex Assigned at Date Recorded Not on file as of this encounter Plan of Treatment [...]
--- OUTSIDE RECORDS SUMMARY | 2018-05-17 17:38 | XMS REPORT ---
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 Name Role Phone FRANCHESKA HEADLEY Unavailable PROBLEMS Type Condition ICD9-CM Code [id number] Code Onset Dates Condition Status SNOMED Code Problem Anxiety F41.9 Active 07358766 Problem Seasonal allergic rhinitis, unspecified allergic rhinitis trigger J30.2 Active 538179147 Problem Other chronic pain G89.29 Active 41828018 Problem Chronic fatigue R53.82 Active 42222724 Problem Seizure disorder G40.909 Active 247148824 Problem Unsteady gait R26.81 Active 86889865 Problem Infection of right eye H44.001 Active [id number] Problem Lumbago with sciatica, left side M54.42 Active 305227733 Problem Chronic pain syndrome G89.4 Active 024591078 Problem Fibromyalgia M79.7 Active 852455536 Problem Atrial fibrillation, unspecified type I48.91 Active 71690863 Problem Esophagitis, reflux K21.0 Active 339414087 Problem Primary insomnia F51.01 Active 323086798 Problem Edema, due to unspecified malnutrition type, unspecified type R60.9 Active 992137191 Problem Polysubstance (excluding opioids) dependence F19.20 Active 05433497 Problem Congestive heart failure, unspecified congestive heart failure chronicity, unspecified congestive heart failure type I50.9 Active 53710666 Problem COPD (chronic obstructive pulmonary disease) with acute bronchitis J44.0 Active [id number] Problem Unspecified mood [affective] disorder F39 Active 719582626 Problem Major depressive disorder, recurrent episode, severe F33.2 Active 912864526315 Problem Lumbago with sciatica, right side M54.41 Active 326989399 ALLERGIES Substance Reaction Event Type Date Status Saphris Unknown Drug Allergy Jul, Active Tylenol/Codeine #3 Unknown Drug Allergy Jul, Active Phenergan Unknown Drug Allergy Jul, Active Keflex Unknown Drug Allergy Jul, Active Inapsine Unknown Drug Allergy Jul, Active Geodon Unknown Drug Allergy Jul, Active Erythromycin Unknown Drug Allergy Jul, Active Darvocet-N 50 Unknown Drug Allergy Jul, Active Compazine Unknown Drug Allergy Jul, Active Cephalexin Unknown Drug Allergy Jul, Active Bactrim Unknown Drug Allergy Jul, Active ENCOUNTERS Encounter Location Date Diagnosis [facility], [place] [id number] [place] [address] 26327- 1855 February, [facility] [id number] [place] [address] 75565 -6168 February, Hordeolum externum of right upper eyelid H00.011 and Paronychia of finger of right hand L03.011 [place] [id number] [place] [address] 49613- 3099 February, [place] [address] 19830- 1704 February, Primary insomnia F51.01 ; Atrial fibrillation, unspecified type I48.91 ; Unsteady gait R26.81 ; General weakness R53.1 ; Chronic fatigue R53.82 ; Hypokalemia E87.6 and Other chronic pain G89.29 [place] [id number] [place] [address] 32611- 0325 February, [facility], [place] [id number] [place] [address] 54160- 0948 Jan, Lumbago with sciatica, right side M54.41 [place] [id number] [place] [address] 42986- 2449 Jan, Anxiety F41.9 ; Chronic pain syndrome G89.4 ; Folliculitis L73.9 and Fibromyalgia M79.7 [place] [id number] [place] [address] 68634- 0617 Jan, Lumbago with sciatica, right side M54.41 [place] [address] [place] [address] 6337 Dec, [place] [address] 37104- 4644 Nov, Lumbago with sciatica, right side M54.41 [place] [address] 00870- 2353 Nov, [place] [address] 60266- 5472 Nov, Unspecified mood [affective] disorder F39 ; Hypokalemia E87.6 and Anemia, unspecified type D64.9 [place] [address] 26560- 2887 Nov, [place] [address] 57766- 4774 Oct, Lumbago with sciatica, right side M54.41 [facility] [place] [id number] [place] [address] 35584 -8558 Aug, Congestive heart failure, unspecified congestive heart failure chronicity, unspecified congestive heart failure type I50.9 and Peripheral edema R60.9 [place] [id number] [place] [address] 66911- 6604 17 Aug, 2017 Polysubstance (excluding opioids) dependence F19.20 and Lumbago with sciatica, left side M54.42 [place] [id number] [place] [address] 76955- 2898 17 Aug, 2017 [facility] [address] 41052 -0125 14 Aug, 2017 Infection of right eye H44.001 [place] [address] 82741- 9631 14 Aug, 2017 Congestive heart failure, unspecified congestive heart failure chronicity, unspecified congestive heart failure type I50.9 and Other chronic pain G89.29 [place] [address] [address] 268[address] Aug, Lumbago with sciatica, right side M54.41 [facility], [place] [id number] [place] [address] 75187- 1754 Aug, Lumbago with sciatica, right side M54.41 [facility], [place] [id number] [place] [address] 12922- 6647 Aug, [facility], [place] [id number] [place] [address] 10421- 4759 Jul, [place] [id number] [place] [address] 66419- 5363 Jul, COPD (chronic obstructive pulmonary disease) with acute bronchitis J44.0 ; Atrial fibrillation, unspecified type I48.91 ; Polysubstance (excluding opioids) dependence F19.20 ; Congestive heart failure, unspecified congestive heart failure chronicity, unspecified congestive heart failure type I50.9 and Lumbago with sciatica, right side M54.41 [facility] [id number] [place] [address] [id number] Jul, [facility], [place] [id number] [place] [address] 96598- 8578 Jul, Seizure disorder G40.909 [facility], [place] [id number] [place] [address] 79662- 9814 Jul, Lumbago with sciatica, right side M54.41 [facility], [place] [address] [address] 0036 Jul, [facility], [place] [id number] [place] [address] 98584- 2751 Jun, Congestive heart failure, unspecified congestive heart failure chronicity, unspecified congestive heart failure type I50.9 ; Lumbago with sciatica, right side M54.41 and Other chronic pain G89.29 [facility], [place] [id number] [place] [address] 95886- 0534 Jun, [place] [id number] [place] [address] 34247- 4085 Jun, [place] [id number] [place] [address] 26798- 9296 May, Lumbago with sciatica, left side M54.42 [place] [id number] [place] [address] 16337- 3888 May, [facility] [id number] [place] [address] 62343 -7200 May, Unspecified fall, initial encounter W19.XXXA [place] [address] 95279- 9312 May, Lumbago with sciatica, right side M54.41 [place] [id number] [place] [address] 05617- 6365 May, [place] [id number] [place] [address] 20447- 0718 May, Bloating R14.0 and Right hip pain M25.551 [place] [id number] [place] [address] 04471- 9498 Apr, [place] [id number] [place] [address] 29222- 2476 Apr, Lumbago with sciatica, left side M54.42 [place] [id number] [place] [address] 91291- 1651 Mar, [facility] [id number] [place] [address] 58431 -8883 Mar, Lumbago with sciatica, right side M54.41 [facility] [id number] [place] [address] 92791 -8629 Mar, Abdominal distension R14.0 [place] [address] 04302- 4833 Mar, Periumbilical abdominal pain R10.33 and Diarrhea, unspecified type R19.7 [facility] [place] [address] 60958 -1318 February, Seasonal allergic rhinitis, unspecified allergic rhinitis trigger J30.2 ; Acute middle ear effusion, bilateral H65.193 and Lumbago with sciatica, right side M54.41 [place] [address] 68153- 5244 February, Routine gynecological examination Z01.419 [place] [address] 752438- 4140 Jan, [place] [address] 35383- 8501 Jan, Atrial fibrillation, unspecified type I48.91 [facility] [place] [address] 16685 -0610 Jan, Lumbago with sciatica, right side M54.41 and Wound, open, toe, initial encounter S91.[address] [place] [address] [id number] Jan, [facility] [place] [id number] [place] [address] 85720 -1195 Jan, Acute bilateral low back pain without sciatica M54.5 [place] [id number] [place] [address] 14278- 1582 Dec, Congestive heart failure, unspecified congestive heart failure chronicity, unspecified congestive heart failure type I50.9 [place] [address] 93544- 6589 Dec, [place] [address] 43539- 6438 Dec, Thrush, oral B37.0 and Lumbago with sciatica, right side M54.41 [place] [id number] [place] [address] 34822- 0506 Dec, [facility], [place] [id number] [place] [address] 10296- 4099 Nov, [facility], [place] [id number] [place] [address] 70045- 8751 Nov, [facility] [place] [id number] [place] [address] 62716- 5344 Oct, Polysubstance (excluding opioids) dependence F19.20 ; Other chronic pain G89.29 and Lumbago with sciatica, right side M54.41 [facility] [place] [id number] [place] [address] 41816- 0361 Oct, [facility] [place] [id number] [place] [address] 66644- 4345 Aug, Lumbago with sciatica, right side M54.41 ; Other chronic pain G89.29 and Anxiety F41.9 [facility] [place] [id number] [place] [address] 46139- 3568 Aug, [facility] [place] [id number] [place] [address] 25206- 6071 Aug, [facility] [place] [id number] [place] [address] 28130- 6481 Aug, [facility] [place] [id number] [place] [address] 24855- 2948 Aug, [facility] [place] [id number] [place] [address] 94111- 6977 Aug, [facility] [place] [id number] [place] [address] 23037- 3861 Aug, [facility], [place] [id number] [place] [address] 38743- 8050 Jul, Unspecified mood [affective] disorder F39 and Seizure disorder G40.909 [facility], [place] [address] [place] [address]- 8719 Jul, [facility], [place] [id number] [place] [address] 38496- 4380 Jul, [facility] [place] [id number] [place] [address] 65040- 8545 Jul, Unspecified mood [affective] disorder F39 and Seizure disorder G40.909 [facility] [place] [id number] [place] [address] 17163- 2795 Jul, Polysubstance (excluding opioids) dependence F19.20 ; COPD ( chronic obstructive pulmonary disease) with acute bronchitis J44.0 ; Congestive heart failure, unspecified congestive heart failure chronicity, unspecified congestive heart failure type I50.9 ; Radiculopathy of lumbosacral region M54.17 and Radiculopathy, thoracic region M54.14 [facility] [place] [id number] [place] [address] 86303- 8387 Jun, Lumbago M54.5 [facility], [place] [id number] [place] [address] 16758- 3689 May, [facility] [place] [id number] [place] [address] 82266- 2142 May, [facility], [place] [id number] [place] [address] 13187- 4543 May, [facility], [place] [id number] [place] [address] 92817- 2799 Apr, COPD (chronic obstructive pulmonary disease) with acute bronchitis J44.0 [facility], [place] [id number] [place] [address] 70106- 0385 Apr, Major depressive disorder, recurrent episode, severe F33.2 and Polysubstance (excluding opioids) dependence F19.20 [facility], [place] [address] [place] [address] 35926- 3080 Mar, Major depressive disorder, recurrent episode, severe F33.2 and Polysubstance (excluding opioids) dependence F19.20 [facility] [place] [id number] [place] [address] 30745- 7388 16 Mar, 2016 Major depressive disorder, recurrent episode, severe F33.2 and Polysubstance (excluding opioids) dependence F19.20 [facility], [place] [address] 24794- 9451 Mar, Major depressive disorder, recurrent episode, severe F33.2 and Polysubstance (excluding opioids) dependence F19.20 [facility], [place] [address] 15751- 7401 February, Major depressive disorder, recurrent episode, severe F33.2 and Polysubstance (excluding opioids) dependence F19.20 [place] [address] 74754- 7860 February, [place] [address] 18049- 3227 February, COPD (chronic obstructive pulmonary disease) with acute bronchitis J44.0 [facility] [address] 65474 -8394 February, Sore throat J02.9 and Bronchitis J40 [place] [address] 30098- 0150 Jan, COPD (chronic obstructive pulmonary disease) with acute bronchitis J44.0 [place] [address] 90513- 4268 Jan, COPD (chronic obstructive pulmonary disease) with acute bronchitis J44.0 [place] [address] 52547- 1125 Jan, [facility], [place] [address] [id number]- 0547 Dec, Gastritis K29.70 ; Constipation K59.00 and Lumbago M54.5 [place] [address] 92452- 9202 Dec, COPD (chronic obstructive pulmonary disease) with acute bronchitis J44.0 [facility] [place] [id number] [place] [address] 11403- 1569 18 Nov, 2015 Major depressive disorder, recurrent episode, severe F33.2 and Polysubstance (excluding opioids) dependence F19.20 [facility] [id number] [place] [address] 37302 -0537 Oct, Oral thrush B37.0 and Drug abuse F19.10 [facility], [place] [id number] [place] [address] 98368- 0609 Oct, [place] [address] 30887- 9337 Sep, COPD (chronic obstructive pulmonary disease) with acute bronchitis J44.0 ; Esophagitis, reflux K21.0 ; Seizure disorder G40.909 ; Primary insomnia F51.01 ; Edema, due to unspecified malnutrition type, unspecified type R60.9 ; Arthritis M19.90 and Thrush B37.0 [place] [id number] [place] [address] 21137- 3241 Aug, [place] [address] 90211- 4871 Aug, [place] [id number] [place] [address] 33242- 7778 Aug, [place] [id number] [place] [address] 31667- 3434 Jul, [place] [id number] [place] [address] 32301- 0197 Jun, [place] [address] 21625- 8554 Jun, Counseling on substance use and abuse V65.42 and Obstructive chronic bronchitis, with (acute) exacerbation 491.21 [place] [address] 19875- 9726 May, [facility], [place] [address] [place] [address] 80030- 4915 Apr, [facility], [place] [id number] [place] [address] 69540- 1589 Apr, Abdominal pain 789.00 and Back pain 724.5 [place] [id number] [place] [address] 32764- 3751 Mar, Back pain 724.5 and Illicit drug use 305.90 [facility] [place] [id number] [place] [address] 39117- 6884 February, Onychomycosis 110.1 [place] [id number] [place] [address] 18686- 0655 February, Breast cancer screening V76.10 [place] [id number] [place] [address] 13507- 0636 February, [facility], [place] [id number] [place] [address] 27429- 3748 February, [place] [id number] [place] [address] 785740- 7927 February, Cough 786.2 ; Obstructive chronic bronchitis, with (acute) exacerbation 491.21 ; Vomiting 787.03 ; 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 and Gastritis 535.50 [facility] [place] [id number] [place] [address] 27056- 2142 Jan, [facility], [place] [id number] [place] [address] 10571- 6204 Jan, [facility], [place] [id number] [place] [address] 25401- 5626 Dec, [facility], [place] [id number] [place] [address] 20444- 1796 Dec, [facility] [place] [id number] [place] [address] 01174- 1832 Dec, [facility] [place] [facility] [address] [id number] [place] [address]- 4819 13 Dec, 2014 [facility] [place] [facility] [address] [id number] [place] [address]- 6638 13 Dec, 2014 [facility] [place] [facility] [address] [id number] [place] [address]- 0279 12 Dec, 2014 [facility] [place] [facility] [address] [id number] [place] [address]- 9465 Dec, [facility] [place] [facility] [address] [id number] [place] [address]- 2117 Dec, [facility] [place] [facility] [address] [id number] [place] [address]- 9041 Dec, [facility] [place] [facility] [address] [id number] [place] [address]- 3732 Sep, [facility] [place] [facility] [address] [id number] [place] [address]- 9311 Sep, [facility] [place] [facility] [address] [id number] [place] [address]- 9394 Sep, [facility] [place] [facility] [address] [id number] [place] [address]- 8672 Sep, [facility] [place] [facility] [address] [id number] [place] [address]- 2213 Sep, [facility] [place] [facility] [address] [id number] [place] [address]- 2918 Sep, [facility] [place] [facility] [address] [id number] [place] [address]- 5209 Sep, [facility] [place] [facility] [address] [id number] [place] [address]- 4797 Sep, [facility] [place] [facility] [address] [id number] [place] 6868 Sep, [facility] [place] [facility] [address] [id number] [place] [address]- 5312 Sep, [facility] [place] [facility] [address] [id number] [place] [address]- 0662 Aug, [facility] [place] [facility] [address] [id number] [place] [address]- 2183 Aug, [facility] [place] [facility] [address] [id number] [place] [address]- 3530 Aug, [facility] [place] [facility] [address] [id number] [place] [address]- 6372 Aug, [facility] [place] [facility] [address] [id number] [place] [address]- 5293 Jul, [facility] [place] [facility] [address] [id number] [place] [address]- 7679 Jul, [facility] [place] [facility] [address] [id number] [place] [address]- 6301 Jun, [facility] [place] [facility] [address] [id number] [place] [address]- 3624 Jun, [facility] [place] [facility] [address] [id number] [place] [address]- 9450 May, [facility] [place] [facility] [address] [id number] [place] [address]- 3318 May, [facility] [place] [facility] [address] [id number] [place] [address]- 6595 May, [facility] [place] [facility] [address] [id number] [place] [address]- 0725 May, [facility] [place] [facility] [address] [id number] [place] [address]- 7982 May, [facility] [place] [facility] [address] [id number] [place] [address]- 4277 May, [facility] [place] [facility] [address] [id number] [place] [address]- 4431 Apr, [facility] [place] [facility] [address] [id number] [place] [address]- 1482 Apr, [facility] [place] [facility] [address] [id number] [place] [address]- 0335 Apr, [facility] [place] [facility] [address] [id number] [place] [address]- 1615 Apr, [facility] [place] [facility] [address] [id number] [place] [address]- 9591 February, [facility] [place] [facility] [address] [id number] [place] [address] February, [facility] [place] [facility] [address] [id number] [place] [address] Oct, [facility] [place] [facility] [address] [id number] [place] [address] Oct, [facility] [place] [facility] [address] [id number] [place] [address] Oct, [facility] [place] [facility] [address] [id number] [place] [address] Oct, [facility] [place] [facility] [address] [id number] [place] [address] Sep, [facility] [place] [facility] [address] [id number] [place] [address] Sep, [facility] [place] [facility] [address] [id number] [place] [address] Sep, [facility] [place] [facility] [address] [id number] [place] [address] Sep, [facility] [place] [facility] [address] [id number] [place] [address] Aug, [facility] [place] [facility] [address] [id number] [place] [address] Aug, [facility] [place] [facility] [address] [id number] [place] [address] Aug, [facility] [place] [facility] [address] [id number] [place] [address] Aug, [facility] [place] [facility] [address] [id number] [place] [address] Jul, [facility] [place] [facility] [address] [id number] [place] [address] Jul, [facility] [place] [facility] [address] [id number] [place] [address] Jul, [facility] [place] [facility] [address] [id number] [place] [address] Jul, [facility] [place] [facility] [address] [id number] [place] [address] Jul, [facility] [place] [facility] [address] [id number] [place] [address] Jul, [facility] [place] [facility] [address] [id number] [place] [address] Jul, [facility] [place] [facility] [address] [id number] [place] [address] Jul, [facility] [place] [facility] [address] [id number] [place] [address] Jul, [facility] [place] [facility] [address] [id number], [place] [address] Jul, [facility] [place] [facility] [address] [id number], [place] [address] Jun, [facility] [place] [facility] [address] [id number] [place] [address] May, [facility] [facility] [address] [id number] [place] [id number] Apr, [facility] [place] [facility] [address] [id number] [place] [address] Apr, [facility] [place] [facility] [address] [id number] [address] Apr, [facility] [place] [id number] [address] Mar, [facility] [place] [id number], [place] [address] Mar, [facility] [place] [id number], [place] [address] Mar, [facility] [place] [id number] [place] [address] Mar, [facility] [place] [id number] [place] [address] Mar, [facility] [place] [id number] [place] [address] Sep, [facility] [place] [id number] [place] [address] February, [facility], [place] [id number], [place] [address] Jan, IMMUNIZATIONS Vaccine Route Administration Date Status TORADOL (IM) 60 MG/2ML (UP TO 15 MG) IM Intramuscular Aug 13, 2017 Administered SOCIAL HISTORY Never Assessed REASON FOR VISIT Hosp follow up, reports went back to ER last night. Abdominal swelling with diarrhea and abd pain. Reports pills are not dissolving, can see pills in BM even after 4 hours. Was given GI cocktail and zofran in ER. Was given Toradol last night. Wants to see about getting another shot today. , CBrumbackRN PLAN OF CARE VITAL SIGNS Height 64 in 2017-08-13 Weight 161.5 lbs 2017-08-13 Temperature 98.0 degrees Fahrenheit 2017-08-13 Heart Rate 92 bpm 2017-08-13 Respiratory Rate 20 2017-08-13 BMI 27.72 kg/m2 2017-08-13 Blood pressure systolic 114 mmHg 2017-08-13 Blood pressure diastolic 66 mmHg 2017-08-13 MEDICATIONS Medication Instructions Dosage Frequency Start Date End Date Duration Status Nabumetone 500 mg Orally Twice a day 1 tablet 12h 25 Sep, 2017 24 Nov, 2017 30 day(s) Active Benztropine Mesylate 1 MG Orally 2 times a day 1 tablet 12h Active Xarelto 20 MG Orally Once a day 1 tablet with food 24h Active Cyclobenzaprine HCl 10 mg Orally 2 times a day 1 tablet as needed 12h 25 Jun, 2017 Active Calcium Carbonate Antacid 600 MG Orally Once a day 1 tablet as needed 24h Active Haloperidol 5 mg Orally Twice a day 1 tablet 12h Active Metoprolol Succinate ER 25 MG Orally 2 times a day 1 tablet 12h Active Diltiazem CD 180 MG Orally Once a day 1 capsule 24h Active Digoxin 125 mcg Orally Once a day 1 tablet 24h 90 days Active Cetirizine HCl 10 mg Orally Once a day 1 tablet 24h Mar, Sep, 30 day(s) Active Acidophilus - Active Omeprazole 40 MG Orally at bedtime 1 capsule Active HydrOXYzine HCl 25 MG Orally twice daily 1 tablet as needed Jun, Active Furosemide 40 mg 2 tablets 24h Active Meclizine HCl 25 MG Orally Once a day 1 tablet as needed 24h Active Keppra 1000 MG Orally every 12 hrs 1 tablet 12h 90 days Active Potassium Chloride 10 MEQ/100ML Intravenous Once a day 15 ml with food 24h Active RESULTS No Results PROCEDURES Procedure Date Ordered Result Body Site TORADOL (IM) 60 MG/2ML (UP TO 15 MG) Aug 13, 2017 THER/PROPH/DIAG INJ, SC/IM Aug 13, 2017 INSTRUCTIONS MEDICATIONS ADMINISTERED No Known Medications MEDICAL [...] bleeding 2015 Hospitalization History A fib with [facility] 02/06/17 Hospitalization History Altered mental status, lethargy-[facility] 07/10/17 Hospitalization History Chest pain-[facility] 08/05/17 Hospitalization History [facility] 10/2017 Hospitalization History Low potassium, A fib 01/2018
--- OUTSIDE RECORDS SUMMARY | 2018-05-17 17:39 | XMS REPORT ---
Author Author FRANCHESKA HEADLEY [facility] Address [address] [place] [address] Care Team Providers Care [employer] Name Role Phone FRANCHESKA HEADLEY Unavailable PROBLEMS Type Condition ICD9-CM Code QEY52-JV Code Onset Dates Condition Status SNOMED Code Problem Anxiety F41.9 Active 28254564 Problem Seasonal allergic rhinitis, unspecified allergic rhinitis trigger J30.2 Active 067865940 Problem Other chronic pain G89.29 Active 96095482 Problem Chronic fatigue R53.82 Active 82700753 Problem Seizure disorder G40.909 Active 802429989 Problem Unsteady gait R26.81 Active 46525645 Problem Infection of right eye H44.001 Active [id number] Problem Lumbago with sciatica, left side M54.42 Active 947514190 Problem Chronic pain syndrome G89.4 Active 964976247 Problem Fibromyalgia M79.7 Active 448025293 Problem Atrial fibrillation, unspecified type I48.91 Active 14329558 Problem Esophagitis, reflux K21.0 Active 563337170 Problem Primary insomnia F51.01 Active 268873098 Problem Edema, due to unspecified malnutrition type, unspecified type R60.9 Active 173091926 Problem Polysubstance (excluding opioids) dependence F19.20 Active 12957857 Problem Congestive heart failure, unspecified congestive heart failure chronicity, unspecified congestive heart failure type I50.9 Active 64373774 Problem COPD (chronic obstructive pulmonary disease) with acute bronchitis J44.0 Active 124603065291138 Problem Unspecified mood [affective] disorder F39 Active 622860753 Problem Major depressive disorder, recurrent episode, severe F33.2 Active 652958609434 Problem Lumbago with sciatica, right side M54.41 Active 914807027 ALLERGIES Substance Reaction Event Type Date Status Saphris Unknown Drug Allergy Nov, Active Tylenol/Codeine #3 Unknown Drug Allergy Nov, Active Phenergan Unknown Drug Allergy Nov, Active Keflex Unknown Drug Allergy Nov, Active Inapsine Unknown Drug Allergy Nov, Active Geodon Unknown Drug Allergy Nov, Active Erythromycin Unknown Drug Allergy Nov, Active Darvocet-N 50 Unknown Drug Allergy Nov, Active Compazine Unknown Drug Allergy Nov, Active Cephalexin Unknown Drug Allergy Nov, Active Bactrim Unknown Drug Allergy Nov, Active ENCOUNTERS Encounter Location Date Diagnosis [facility] [id number] [place] [address] 80868- 9123 Apr, [facility] [id number] [place] [address] 37678- 2511 28 Mar, 2018 Primary insomnia F51.01 and Anxiety F41.9 [facility] [id number] [place] [address] 80967- 1585 18 Mar, 2018 [facility] [address] 92830- 4673 14 Mar, 2018 [facility] [id number] [place] [address] 28991- 3640 13 Mar, 2018 Lumbago with sciatica, left side M54.42 [facility] [id number] [place] [address] 07632- 9235 12 Mar, 2018 [facility] [id number] [place] [address] 20240- 5102 05 Mar, 2018 Anxiety F41.9 [facility] [id number] [place] [address] 40996- 1881 February, [facility] [id number] [place] [address] 83220- 4657 February, Unspecified mood [affective] disorder F39 [facility] [id number] [place] [address] 55708- 6234 February, [facility] [id number] [place] [address] 21217- 2438 February, [facility] [id number] [place] [address] 05365 -4008 February, Hordeolum externum of right upper eyelid H00.011 and Paronychia of finger of right hand L03.011 [facility] [id number] [place] [address] 50470- 9441 February, [place] [address] 45673- 2034 February, Primary insomnia F51.01 ; Atrial fibrillation, unspecified type I48.91 ; Unsteady gait R26.81 ; General weakness R53.1 ; Chronic fatigue R53.82 ; Hypokalemia E87.6 and Other chronic pain G89.29 [place] [address] 37536- 9127 February, [place] [address] 08758- 0684 Jan, Lumbago with sciatica, right side M54.41 [place] [address] 90681- 0291 Jan, Anxiety F41.9 ; Chronic pain syndrome G89.4 ; Folliculitis L73.9 and Fibromyalgia M79.7 [place] [id number] [place] [address] 16346- 1450 Jan, Lumbago with sciatica, right side M54.41 [place] [id number] [place] [address] 74468- 6478 Dec, [place] [address] 31082- 5244 Nov, Lumbago with sciatica, right side M54.41 [place] [id number] [place] [address] 57087- 1678 Nov, [place] [address] 67009- 0498 Nov, Unspecified mood [affective] disorder F39 ; Hypokalemia E87.6 and Anemia, unspecified type D64.9 [place] [address] 46812- 2958 Nov, [place] [address] 50069- 3318 Oct, Lumbago with sciatica, right side M54.41 [facility] [place] [address] 12624 -4655 Aug, Congestive heart failure, unspecified congestive heart failure chronicity, unspecified congestive heart failure type I50.9 and Peripheral edema R60.9 [place] [address] 81272- 4008 Aug, Polysubstance (excluding opioids) dependence F19.20 and Lumbago with sciatica, left side M54.42 [place] [address] 10861- 7042 Aug, [facility] [place] [address] 45630 -8106 Aug, Infection of right eye H44.001 [place] [address] 24179- 9592 14 Aug, 2017 Congestive heart failure, unspecified congestive heart failure chronicity, unspecified congestive heart failure type I50.9 and Other chronic pain G89.29 [place] [address] 43262- 0803 Aug, Lumbago with sciatica, right side M54.41 [place] [address] 73443- 7235 Aug, Lumbago with sciatica, right side M54.41 [place] [address] 75903- 1782 Aug, [place] [address] [place] [address]- 1613 Jul, [facility] [id number] [place] [address] 79719- 5289 Jul, COPD (chronic obstructive pulmonary disease) with acute bronchitis J44.0 ; Atrial fibrillation, unspecified type I48.91 ; Polysubstance (excluding opioids) dependence F19.20 ; Congestive heart failure, unspecified congestive heart failure chronicity, unspecified congestive heart failure type I50.9 and Lumbago with sciatica, right side M54.41 [facility] [id number] [place] [address] [id number] Jul, [facility] [id number] [place] [address] 35870- 0347 Jul, Seizure disorder G40.909 [facility] [id number] [place] [address] 21349- 6426 Jul, Lumbago with sciatica, right side M54.41 [facility] [id number] [place] [address] 59528- 8524 Jul, [facility] [id number] [place] [address] 95091- 9180 Jun, Congestive heart failure, unspecified congestive heart failure chronicity, unspecified congestive heart failure type I50.9 ; Lumbago with sciatica, right side M54.41 and Other chronic pain G89.29 [facility] [id number] [place] [address] 77071- 1603 Jun, [facility] [id number] [place] [address] 01380- 4272 Jun, [facility] [id number] [place] [address] 10385- 5134 May, Lumbago with sciatica, left side M54.42 [facility] [id number] [address]- 4484 May, [facility] [id number] [place] [address] 89894 -8111 May, Unspecified fall, initial encounter W19.XXXA [place] [address] 82995- 4645 May, Lumbago with sciatica, right side M54.41 [place] [address] 39226- 8988 May, [place] [address] 60978- 8355 May, Bloating R14.0 and Right hip pain M25.551 [place] [address] 19010- 7477 Apr, [place] [address] 84655- 6562 Apr, Lumbago with sciatica, left side M54.42 [place] [address] 44936- 9598 Mar, [facility] [address] 79190 -8284 Mar, Lumbago with sciatica, right side M54.41 [facility] [place] [address] 49837 -9999 Mar, Abdominal distension R14.0 [place] [id number] [place] [address] 87046- 0585 Mar, Periumbilical abdominal pain R10.33 and Diarrhea, unspecified type R19.7 [facility] [address] 67936 -4726 February, Seasonal allergic rhinitis, unspecified allergic rhinitis trigger J30.2 ; Acute middle ear effusion, bilateral H65.193 and Lumbago with sciatica, right side M54.41 [place] [address] 54608- 6738 February, Routine gynecological examination Z01.419 [facility] [id number] [place] [address] 94212- 2410 Jan, [place] [id number] [place] [address] 95560- 1702 Jan, Atrial fibrillation, unspecified type I48.91 [facility] [id number] [place] [address] 11251 -4527 Jan, Lumbago with sciatica, right side M54.41 and Wound, open, toe, initial encounter S91.109A [facility] [id number] [place] [address] [id number] Jan, [facility] [id number] [place] [address] 07299 -5986 Jan, Acute bilateral low back pain without sciatica M54.5 [place] [id number] [place] [address] 02728- 9694 Dec, Congestive heart failure, unspecified congestive heart failure chronicity, unspecified congestive heart failure type I50.9 [place] [id number] [place] [address] 00199- 7473 Dec, [facility] [id number] [place] [address] 79071- 5591 Dec, Thrush, oral B37.0 and Lumbago with sciatica, right side M54.41 [facility] [id number] [place] [address] 97846- 4551 Dec, [facility] [id number] [place] [address] 73965- 6101 Nov, [place] [id number] [place] [address] 06352- 5341 Nov, [facility] [id number] [place] [address] 28830- 2301 Oct, Polysubstance (excluding opioids) dependence F19.20 ; Other chronic pain G89.29 and Lumbago with sciatica, right side M54.41 [facility] [id number] [place] [address] 42444- 7096 Oct, [facility] [id number] [place] [address] 15068- 0680 Aug, Lumbago with sciatica, right side M54.41 ; Other chronic pain G89.29 and Anxiety F41.9 [facility] [id number] [place] [address] 13514- 9325 Aug, [facility] [id number] [place] [address] 50532- 5789 Aug, [facility] [id number] [place] [address] 56843- 3142 Aug, [facility] [id number] [place] [address] 82556- 5403 Aug, [facility] [id number] [place] [address] 59272- 6420 Aug, [facility] [id number] [place] [address] 40689- 2198 Aug, [facility] [id number] [place] [address] 47253- 1323 Jul, Unspecified mood [affective] disorder F39 and Seizure disorder G40.909 [facility] [id number] [place] [address] 70247- 8286 Jul, [facility] [id number] [place] [address] 19565- 7353 Jul, [facility] [id number] [place] [address] 43720- 0486 Jul, Unspecified mood [affective] disorder F39 and Seizure disorder G40.909 [facility] [id number] [place] [address] 11635- 3212 Jul, Polysubstance (excluding opioids) dependence F19.20 ; COPD ( chronic obstructive pulmonary disease) with acute bronchitis J44.0 ; Congestive heart failure, unspecified congestive heart failure chronicity, unspecified congestive heart failure type I50.9 ; Radiculopathy of lumbosacral region M54.17 and Radiculopathy, thoracic region M54.14 [facility] [id number] [place] [address] 32047- 9615 Jun, Lumbago M54.5 [facility] [id number] [place] [address] 63337- 1132 May, [facility] [id number] [place] [address] 62895- 1635 May, [facility] [id number] [place] [address] 95892- 5252 May, [facility] [id number] [place] [address] 64119- 1087 Apr, COPD (chronic obstructive pulmonary disease) with acute bronchitis J44.0 [facility] [id number] [place] [address] 64091- 4298 Apr, Major depressive disorder, recurrent episode, severe F33.2 and Polysubstance (excluding opioids) dependence F19.20 [facility] [address] [address]- 1489 Mar, Major depressive disorder, recurrent episode, severe F33.2 and Polysubstance (excluding opioids) dependence F19.20 [facility] [id number] [place] [address] 55659- 8773 Mar, Major depressive disorder, recurrent episode, severe F33.2 and Polysubstance (excluding opioids) dependence F19.20 [facility] [address] [address]- 0232 Mar, Major depressive disorder, recurrent episode, severe F33.2 and Polysubstance (excluding opioids) dependence F19.20 [facility] [id number] [place] [address] 28579- 7980 February, Major depressive disorder, recurrent episode, severe F33.2 and Polysubstance (excluding opioids) dependence F19.20 [facility] [id number] [place] [address] 22133- 9898 February, [place] [address] 63014- 4190 February, COPD (chronic obstructive pulmonary disease) with acute bronchitis J44.0 [facility] [id number] [place] [address] 94618 -0535 February, Sore throat J02.9 and Bronchitis J40 [place] [address] 13652- 3181 Jan, COPD (chronic obstructive pulmonary disease) with acute bronchitis J44.0 [place] [address] 61983- 3810 Jan, COPD (chronic obstructive pulmonary disease) with acute bronchitis J44.0 [place] [address] 30236- 3870 Jan, [place] [id number] [place] [address] 14478- 5869 Dec, Gastritis K29.70 ; Constipation K59.00 and Lumbago M54.5 [place] [id number] [place] [address] 11390- 4259 Dec, COPD (chronic obstructive pulmonary disease) with acute bronchitis J44.0 [place] [id number] [place] [address] 99487- 5825 Nov, Major depressive disorder, recurrent episode, severe F33.2 and Polysubstance (excluding opioids) dependence F19.20 [facility] [id number] [place] [address] 18781 -6602 Oct, Oral thrush B37.0 and Drug abuse F19.10 [facility] [id number] [place] [address] 45572- 8858 Oct, [facility] [id number] [place] [address] 45989- 9700 Sep, COPD (chronic obstructive pulmonary disease) with acute bronchitis J44.0 ; Esophagitis, reflux K21.0 ; Seizure disorder G40.909 ; Primary insomnia F51.01 ; Edema, due to unspecified malnutrition type, unspecified type R60.9 ; Arthritis M19.90 and Thrush B37.0 [facility] [id number] [place] [address] 35236- 0127 Aug, [facility] [address] 77970- 9691 Aug, [facility] [address] 55852- 1754 Aug, [facility] [id number] [place] [address] 82643- 3503 Jul, [facility] [id number] [place] [address] 35376- 5719 Jun, [facility] [id number] [place] [address] 32939- 4202 Jun, Counseling on substance use and abuse V65.42 and Obstructive chronic bronchitis, with (acute) exacerbation 491.21 [facility] [id number] [place] [address] 58867- 8717 May, [facility] [id number] [place] [address] 16842- 1954 Apr, [facility] [address] 51359- 5690 Apr, Abdominal pain 789.00 and Back pain 724.5 [facility] [id number] [place] [address] 23882- 9505 Mar, Back pain 724.5 and Illicit drug use 305.90 [facility] [address] [address]- 3736 February, Onychomycosis 110.1 [facility] [address] 4193 February, Breast cancer screening V76.10 [facility] [id number] [place] [address] 91951- 6417 February, [facility] [id number] [place] [address] 44769- 4461 February, [facility] [id number] [place] [address] 74494- 2337 February, Cough 786.2 ; Obstructive chronic bronchitis, with (acute) exacerbation 491.21 ; Vomiting 787.03 ; 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 and Gastritis 535.50 [facility] [id number] [place] [address] 98318- 4277 Jan, [facility] [address] [address]- 2642 Jan, [facility] [id number] [place] [address] 93179- 9895 24 Dec, 2014 [facility] [address] [address]- 0263 Dec, [facility] [address] [address]- 8795 20 Dec, 2014 [facility] [address] [address]- 9096 Dec, [facility] [id number] [place] [address] 239669- 6332 Dec, [facility] [address] 4681 Dec, [facility] [address], [place] [address]- 0452 Dec, [facility] [place] [facility] [address] [id number] [place] [address]- 5375 Dec, [facility] [place] [facility] [address] [id number] [place] [address]- 0302 Dec, [facility] [place] [facility] [address] [id number] [place] [address]- 7563 Sep, [facility] [place] [facility] [address] [id number] [place] [address]- 8575 Sep, [facility] [place] [facility] [address] [id number] [place] [address]- 9574 Sep, [facility] [place] [facility] [address] [id number] [place] [address]- 9916 Sep, [facility] [place] [facility] [address] [id number] [place] [address]- 1561 Sep, [facility] [place] [facility] [address] [id number] [place] [address]- 0107 Sep, [facility] [place] [facility] [address] [id number] [place] [address]- 8756 Sep, [facility] [place] [facility] [address] [id number] [place] [address]- 4157 Sep, [facility] [place] [facility] [address] [id number] [place] [address]- 3518 Sep, [facility] [place] [facility] [address] [id number] [place] [address]- 8866 Sep, [facility] [place] [facility] [address] [id number] [place] [address]- 8567 Aug, [facility] [place] [facility] [address] [id number] [place] [address]- 6988 Aug, [facility] [place] [facility] [address] [id number] [place] [address]- 3910 Aug, [facility] [place] [facility] [address] [id number] [address]- 9789 Aug, [facility] [place] [facility] [address] [id number] [place] [address]- 9556 Jul, [facility] [place] [facility] [address] [id number] [place] [address]- 1877 Jul, [facility] [place] [facility] [address] [id number] [place] [address]- 2276 Jun, [facility] [place] [facility] [address] [id number] [place] [address]- 2448 Jun, [facility] [place] [facility] [address] [id number] [place] [address]- 7454 May, [facility] [place] [facility] [address] [id number] [place] [address]- 3847 May, [facility] [place] [facility] [address] [id number] [place] [address]- 7621 May, [facility] [place] [facility] [address] [id number] [place] [address]- 4645 May, [facility] [place] [facility] [address] [id number] [place] [address]- 8155 May, [facility] [place] [facility] [address] [id number] [place] [address]- 3201 May, [facility] [place] [facility] [address] [id number] [place] [address] Apr, [facility] [place] [facility] [address] [id number] [place] [address] Apr, [facility] [place] [facility] [address] [id number] [place] [address] Apr, [facility] [place] [facility] [address] [id number] [place] [address] Apr, [facility] [place] [facility] [address] [id number] [place] [address] February, [facility] [place] [facility] [address] [id number] [place] [address] February, [facility] [place] [facility] [address] [id number] [place] [address] Oct, [facility] [place] [facility] [address] [id number] [place] [address] Oct, [facility] [place] [facility] [address] [id number] [place] [address] Oct, [facility] [place] [facility] [address] [id number] [place] [address] Oct, [facility] [place] [facility] [address] [id number] [place] [address] Sep, [facility] [place] [facility] [address] [id number] [place] [address] Sep, [facility] [place] [facility] [address] [id number] [place] [address] Sep, [facility] [place] [facility] [address] [id number] [place] [address] Sep, [facility] [place] [facility] [address] [id number] [place] [address] Aug, [facility] [place] [facility] [address] [id number] [place] [address] Aug, [facility] [place] [facility] [address] [id number] [place] [address] Aug, [facility] [place] [facility] [address] [id number] [place] [address] Aug, [facility] [place] [facility] [address] [id number] [place] [address] Jul, [facility] [place] [facility] [address] [id number] [place] [address] Jul, [facility] [place] [facility] [address] [id number] [place] [address] Jul, [facility] [place] [facility] [address] [id number] [place] [address] Jul, [facility] [place] [facility] [address] [id number] [place] [address] Jul, [facility] [place] [facility] [address] [id number] [place] [place] [address] Jul, [facility] [place] [facility] [address] [id number] [place] [address] Jul, [facility] [place] [facility] [address] [id number] [place] [address] Jul, [facility] [place] [facility] [address] [id number] [place] [address] Jul, [facility] [place] [facility] [address] [id number] [place] [address] Jul, [facility] [place] [facility] [address] [id number] [place] [address] Jun, [facility] [place] [facility] [address] [id number] [place] [address] May, [facility] [place] [facility] [address] [id number] [place] [address] Apr, [facility] [place] [facility] [address] [id number] [address] Apr, [facility] [place] [facility] [address] [id number], [place] [address] Apr, [facility] [place] [facility] [address] [id number] [place] [address] Mar, [facility] [place] [facility] [address] [id number] [place] [address] Mar, [facility] [place] [facility] [address] [id number] [place] [address] Mar, [facility] [place] [facility] [address] [facility] [id number] [place] [address] 18 Mar, 2013 [facility] [address] [facility] [id number] [address] Mar, [facility] [address] [facility] [id number], [place] [address] Sep, [facility] [address] [facility] [id number] [address] February, [facility] [address] [facility] [id number], [place] [address] Jan, IMMUNIZATIONS Vaccine Route Administration Date Status TORADOL (IM) 60 MG/2ML (UP TO 15 MG) IM Intramuscular Dec 10, 2017 Administered SOCIAL HISTORY Never Assessed REASON FOR VISIT Injection CBrumbackRN PLAN OF CARE VITAL SIGNS MEDICATIONS Unknown Medications RESULTS No Results PROCEDURES Procedure Date Ordered Result Body Site TORADOL (IM) 60 MG/2ML (UP TO 15 MG) Dec 10, 2017 THER/PROPH/DIAG INJ, SC/IM Dec 10, 2017 INSTRUCTIONS MEDICATIONS ADMINISTERED No Known Medications [...] bleeding 2016 Hospitalization History A fib with [facility] 02/06/17 Hospitalization History Altered mental status, lethargy-[facility] 07/10/17 Hospitalization History Chest pain-[facility] 08/05/17 Hospitalization History [facility] 10/2017 Hospitalization History Low potassium, A fib 01/2018 Hospitalization History Head injury 03/2018
--- OUTSIDE RECORDS SUMMARY | 2018-05-17 17:40 | XMS REPORT ---
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 Name Role Phone FRANCHESKA HEADLEY Unavailable PROBLEMS Type Condition ICD9-CM Code LIC79-KV Code Onset Dates Condition Status SNOMED Code Problem Anxiety F41.9 Active 27364231 Problem Seasonal allergic rhinitis, unspecified allergic rhinitis trigger J30.2 Active 246809396 Problem Other chronic pain G89.29 Active 66638466 Problem Chronic fatigue R53.82 Active 93358512 Problem Seizure disorder G40.909 Active 662040499 Problem Unsteady gait R26.81 Active 97512923 Problem Infection of right eye H44.001 Active [id number] Problem Lumbago with sciatica, left side M54.42 Active 629386553 Problem Chronic pain syndrome G89.4 Active 392565611 Problem Fibromyalgia M79.7 Active 762050933 Problem Atrial fibrillation, unspecified type I48.91 Active 75051301 Problem Esophagitis, reflux K21.0 Active 299228894 Problem Primary insomnia F51.01 Active 873934537 Problem Edema, due to unspecified malnutrition type, unspecified type R60.9 Active 297833876 Problem Polysubstance (excluding opioids) dependence F19.20 Active 23634181 Problem Congestive heart failure, unspecified congestive heart failure chronicity, unspecified congestive heart failure type I50.9 Active 06276006 Problem COPD (chronic obstructive pulmonary disease) with acute bronchitis J44.0 Active 141740321949396 Problem Unspecified mood [affective] disorder F39 Active 381885217 Problem Major depressive disorder, recurrent episode, severe F33.2 Active 097132732740 Problem Lumbago with sciatica, right side M54.41 Active 333942804 ALLERGIES No Information ENCOUNTERS Encounter Location Date Diagnosis [facility] [address] [facility] [id number] [address] Mar, [facility] [id number] [place] [address] 87329 -7949 February, Hordeolum externum of right upper eyelid H00.011 and Paronychia of finger of right hand L03.011 [facility] [id number] [place] [address] 82909- 3677 February, [place] [address] 13088- 8099 February, Primary insomnia F51.01 ; Atrial fibrillation, unspecified type I48.91 ; Unsteady gait R26.81 ; General weakness R53.1 ; Chronic fatigue R53.82 ; Hypokalemia E87.6 and Other chronic pain G89.29 [place] [id number] [place] [address] 82461- 0961 February, [place] [address] 62180- 9266 Jan, Lumbago with sciatica, right side M54.41 [place] [address] 93982- 4275 Jan, Anxiety F41.9 ; Chronic pain syndrome G89.4 ; Folliculitis L73.9 and Fibromyalgia M79.7 [place] [id number] [place] [address] 83129- 4501 Jan, Lumbago with sciatica, right side M54.41 [place] [id number] [place] [address] 10295- 6944 Dec, [place] [id number] [place] [address] 83559- 8133 Nov, Lumbago with sciatica, right side M54.41 [place] [id number] [place] [address] 59707- 8028 Nov, [place] [address] 55776- 5485 Nov, Unspecified mood [affective] disorder F39 ; Hypokalemia E87.6 and Anemia, unspecified type D64.9 [place] [address] 82070- 0373 Nov, [place] [address] 53351- 5468 Oct, Lumbago with sciatica, right side M54.41 [facility] WALK IN [place] [address] 61147 -0050 Aug, Congestive heart failure, unspecified congestive heart failure chronicity, unspecified congestive heart failure type I50.9 and Peripheral edema R60.9 [place] [address] 35164- 1779 Aug, Polysubstance (excluding opioids) dependence F19.20 and Lumbago with sciatica, left side M54.42 [place] [address] 59127- 7354 Aug, [facility] WALK IN [place] [address] 12990 -6271 Aug, Infection of right eye H44.001 [place] [address] 28611- 9699 14 Aug, 2017 Congestive heart failure, unspecified congestive heart failure chronicity, unspecified congestive heart failure type I50.9 and Other chronic pain G89.29 [place] [id number] [place] [address] 45572- 4851 Aug, Lumbago with sciatica, right side M54.41 [place] [address] 67954- 3276 Aug, Lumbago with sciatica, right side M54.41 [place] [address] 16869- 1114 Aug, [place] [address] [place] [address] Jul, [facility] [id number] [place] [address] 97216- 3414 Jul, COPD (chronic obstructive pulmonary disease) with acute bronchitis J44.0 ; Atrial fibrillation, unspecified type I48.91 ; Polysubstance (excluding opioids) dependence F19.20 ; Congestive heart failure, unspecified congestive heart failure chronicity, unspecified congestive heart failure type I50.9 and Lumbago with sciatica, right side M54.41 [facility] [id number] [place] [address] [id number] Jul, [facility] [id number] [place] [address] 03188- 6075 Jul, Seizure disorder G40.909 [facility] [address] [id number] [place] [address] 91495- 3055 Jul, Lumbago with sciatica, right side M54.41 [facility] [id number] [place] [address] 71348- 0784 Jul, [facility] [id number] [place] [address] 20703- 2757 Jun, Congestive heart failure, unspecified congestive heart failure chronicity, unspecified congestive heart failure type I50.9 ; Lumbago with sciatica, right side M54.41 and Other chronic pain G89.29 [facility] [id number] [place] [address] 81378- 7651 Jun, [facility] [address] [address] 5437 Jun, [facility] [id number] [place] [address] 26849- 3420 May, Lumbago with sciatica, left side M54.42 [facility] [address] [address] 9133 May, [facility] [address] 52256 -6646 May, Unspecified fall, initial encounter W19.XXXA [place] [address] 88668- 6819 May, Lumbago with sciatica, right side M54.41 [place] [address] 87337- 6351 May, [place] [address] 12235- 6004 May, Bloating R14.0 and Right hip pain M25.551 [place] [address] 69994- 3043 Apr, [place] [address] 58315- 8144 Apr, Lumbago with sciatica, left side M54.42 [place] [address] 12882- 3073 Mar, [facility] WALK IN [place] [address] 54474 -0154 Mar, Lumbago with sciatica, right side M54.41 [facility] WALK IN [place] [address] 95580 -0332 Mar, Abdominal distension R14.0 [place] [address] 32469- 9462 Mar, Periumbilical abdominal pain R10.33 and Diarrhea, unspecified type R19.7 [facility] WALK IN [address] 79739 -4181 February, Seasonal allergic rhinitis, unspecified allergic rhinitis trigger J30.2 ; Acute middle ear effusion, bilateral H65.193 and Lumbago with sciatica, right side M54.41 [place] [address] 16137- 6966 February, Routine gynecological examination Z01.419 [facility] [id number] [place] [address] 58183- 8566 Jan, [place] [address] 41186- 8215 Jan, Atrial fibrillation, unspecified type I48.91 [facility] [address] 75899 -8510 Jan, Lumbago with sciatica, right side M54.41 and Wound, open, toe, initial encounter S91.109A [facility] [address] [id number] Jan, [facility] WALK IN [facility] [address] 54343 -2623 Jan, Acute bilateral low back pain without sciatica M54.5 [place] [address] 13903- 2033 Dec, Congestive heart failure, unspecified congestive heart failure chronicity, unspecified congestive heart failure type I50.9 [place] [address] 28139- 1671 Dec, [place] [address] 50490- 0840 Dec, Thrush, oral B37.0 and Lumbago with sciatica, right side M54.41 [place] [address] 79204- 0909 Dec, [place] [address] 76951- 2602 Nov, [place] [address] 80825- 7696 Nov, [place] [address] 79760- 6127 Oct, Polysubstance (excluding opioids) dependence F19.20 ; Other chronic pain G89.29 and Lumbago with sciatica, right side M54.41 [facility] [id number] [place] [address] 63748 2546 Oct, [facility] [id number] [place] [address] 48613- 2546 Aug, Lumbago with sciatica, right side M54.41 ; Other chronic pain G89.29 and Anxiety F41.9 [facility] [id number] [place] [address] 37019- 3506 Aug, [facility] [id number] [place] [address] 44214- 4556 Aug, [facility] [id number] [place] [address] 83294- 5676 Aug, [facility] [id number] [place] [address] 92953- 2656 Aug, [facility] [id number] [place] [address] 02953 2545 Aug, [facility] [id number] [place] [address] 75874- 1029 Aug, [facility] [id number] [place] [address] 98587- 6640 Jul, Unspecified mood [affective] disorder F39 and Seizure disorder G40.909 [facility] [id number] [place] [address] 06708- 1702 Jul, [facility] [id number] [place] [address] 25579- 6116 Jul, [facility] [id number] [place] [address] 05024- 0037 Jul, Unspecified mood [affective] disorder F39 and Seizure disorder G40.909 [facility] [id number] [place] [address] 56017- 5718 Jul, Polysubstance (excluding opioids) dependence F19.20 ; COPD ( chronic obstructive pulmonary disease) with acute bronchitis J44.0 ; Congestive heart failure, unspecified congestive heart failure chronicity, unspecified congestive heart failure type I50.9 ; Radiculopathy of lumbosacral region M54.17 and Radiculopathy, thoracic region M54.14 [facility] [id number] [place] [address] 27670- 3101 Jun, Lumbago M54.5 [facility] [id number] [place] [address] 63401- 9361 May, [facility] [id number] [place] [address] 12975- 3202 May, [facility] [id number] [place] [address] 19364- 7271 May, [facility] [id number] [place] [address] 14049- 1851 Apr, COPD (chronic obstructive pulmonary disease) with acute bronchitis J44.0 [facility] [id number] [place] [address] 46682- 7399 Apr, Major depressive disorder, recurrent episode, severe F33.2 and Polysubstance (excluding opioids) dependence F19.20 [facility] [address] [place] [address] 11464- 0377 Mar, Major depressive disorder, recurrent episode, severe F33.2 and Polysubstance (excluding opioids) dependence F19.20 [facility] [address] [place] [address] 03099- 8119 Mar, Major depressive disorder, recurrent episode, severe F33.2 and Polysubstance (excluding opioids) dependence F19.20 [facility] [address] [place] [address] 97586- 6719 Mar, Major depressive disorder, recurrent episode, severe F33.2 and Polysubstance (excluding opioids) dependence F19.20 [facility] [id number] [place] [address] 03141- 0407 February, Major depressive disorder, recurrent episode, severe F33.2 and Polysubstance (excluding opioids) dependence F19.20 [facility] [id number] [place] [address] 45198- 1359 February, [place] [address] 12528- 8365 February, COPD (chronic obstructive pulmonary disease) with acute bronchitis J44.0 [facility] WALK IN [facility] [address] 18044 -7037 February, Sore throat J02.9 and Bronchitis J40 [place] [address] 87759- 9073 Jan, COPD (chronic obstructive pulmonary disease) with acute bronchitis J44.0 [place] [address] 23174- 0525 Jan, COPD (chronic obstructive pulmonary disease) with acute bronchitis J44.0 [place] [address] 10952- 5562 Jan, [place] [address] 57460- 1387 Dec, Gastritis K29.70 ; Constipation K59.00 and Lumbago M54.5 [place] [address] 00211- 7465 Dec, COPD (chronic obstructive pulmonary disease) with acute bronchitis J44.0 [place] [address] [id number] [place] [address] 30712- 1051 Nov, Major depressive disorder, recurrent episode, severe F33.2 and Polysubstance (excluding opioids) dependence F19.20 [facility] WALK IN [facility] [id number] [place] [address] 57707 -5472 Oct, Oral thrush B37.0 and Drug abuse F19.10 [facility] [id number] [place] [address] 27866- 5982 Oct, [facility] [id number] [place] [address] 07503- 8226 Sep, COPD (chronic obstructive pulmonary disease) with acute bronchitis J44.0 ; Esophagitis, reflux K21.0 ; Seizure disorder G40.909 ; Primary insomnia F51.01 ; Edema, due to unspecified malnutrition type, unspecified type R60.9 ; Arthritis M19.90 and Thrush B37.0 [facility] [id number] [place] [address] 26255- 0632 Aug, [facility] [id number] [place] [address] 04777- 0005 Aug, [facility] [id number] [place] [address] 76356- 4599 Aug, [facility] [id number] [place] [address] 58009- 4661 Jul, [facility] [id number] [place] [address] 47506- 9976 Jun, [facility] [id number] [place] [address] 13088- 9726 Jun, Counseling on substance use and abuse V65.42 and Obstructive chronic bronchitis, with (acute) exacerbation 491.21 [facility] [id number] [place] [address] 84200- 0708 May, [facility] [id number] [place] [address] 62957- 7195 Apr, [facility] [id number] [place] [address] 76977- 1173 Apr, Abdominal pain 789.00 and Back pain 724.5 [facility] [id number] [place] [address] 30815- 2008 Mar, Back pain 724.5 and Illicit drug use 305.90 [facility] [address], [place] [address]- 5181 February, Onychomycosis 110.1 [facility] [id number] [place] [address] 062087- 1202 February, Breast cancer screening V76.10 [facility] [id number] [place] [address] 729139- 4763 February, [facility] [id number] [place] [address] 07002- 5719 February, [facility] [id number] [place] [address] 550112- 8974 February, Cough 786.2 ; Obstructive chronic bronchitis, with (acute) exacerbation 491.21 ; Vomiting 787.03 ; 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 and Gastritis 535.50 [facility] [id number] [place] [address] 97367- 1268 Jan, [facility] [id number] [place] [address] 72560- 0465 Jan, [facility] [id number] [place] [address] 63090- 6542 24 Dec, 2014 [facility] [address], [place] [address]- 7143 Dec, [facility] [id number] [address]- 5181 20 Dec, 2014 [facility] [id number] [place] [address] 48857- 2787 Dec, [facility] [id number] [place] [address] [id number]- 5809 Dec, [facility] [address] 2938 Dec, [facility] [id number] [place] [address] 25540- 6975 Dec, [facility] [place] [facility] [address] [id number] [place] [address]- 2070 Dec, [facility] [place] [facility] [address] [id number] [place] [address]- 7244 Dec, [facility] [place] [facility] [address] [id number] [place] [address]- 5860 Sep, [facility] [place] [facility] [address] [id number] [place] [address]- 3092 Sep, [facility] [place] [facility] [address] [id number] [place] [address]- 7384 Sep, [facility] [place] [facility] [address] [id number] [place] [address]- 3698 Sep, [facility] [place] [facility] [address] [id number] [place] [address]- 7470 Sep, [facility] [place] [facility] [address] [id number] [place] [address]- 3829 Sep, [facility] [place] [facility] [address] [id number] [place] [address]- 6436 Sep, [facility] [place] [facility] [address] [id number] [place] [address]- 8922 Sep, [facility] [place] [facility] [address] [id number] [place] [address]- 0993 Sep, [facility] [place] [facility] [address] [id number], [place] [address]- 0074 Sep, [facility] [place] [facility] [address] [id number] [place] [address]- 2406 Aug, [facility] [place] [facility] [address] [id number] [place] [address]- 4172 Aug, [facility] [place] [facility] [address] [id number] [place] [address]- 4107 Aug, [facility] [place] [facility] [address] [id number] [place] [address]- 6071 Aug, [facility] [place] [facility] [address] [id number] [place] [address]- 1510 Jul, [facility] [place] [facility] [address] [id number] [place] [address]- 1818 Jul, [facility] [place] [facility] [address] [id number] [place] [address]- 7987 Jun, [facility] [place] [facility] [address] [id number] [place] [address]- 2112 Jun, [facility] [place] [facility] [address] [id number] [place] [address]- 2288 May, [facility] [place] [facility] [address] [id number] [place] [address]- 3106 May, [facility] [place] [facility] [address] [id number] [place] [address]- 0170 May, [facility] [place] [facility] [address] [id number] [place] [address]- 3746 May, [facility] [place] [facility] [address] [id number] [place] [address]- 5115 May, [facility] [place] [facility] [address] [id number] [place] [address]- 8206 May, [facility] [place] [facility] [address] [id number] [place] [address]- 9128 Apr, [facility] [place] [facility] [address] [id number] [place] [address] Apr, [facility] [place] [facility] [address] [id number] [place] [address] Apr, [facility] [place] [facility] [address] [id number] [place] [address] Apr, [facility] [place] [facility] [address] [id number] [place] [address] February, [facility] [place] [facility] [address] [id number] [place] [address] February, [facility] [address] [id number] [place] [address] Oct, [facility] [address] [id number] [place] [address] Oct, [facility] [address] [id number] [place] [address] Oct, [facility] [address] [id number] [place] [address] Oct, [facility] [address] [id number] [place] [address] Sep, [facility] [address] [id number] [place] [address] Sep, [facility] [address] [id number] [place] [address] Sep, [facility] [address] [id number] [place] Sep, [facility] [address] [id number] [place] [address] Aug, [facility] [address] [id number] [place] [address] Aug, [facility] [address] [id number], [place] [address] Aug, [facility] [place] [facility] [address] [id number] [place] [address] Aug, [facility] [place] [facility] [address] [id number] [place] [address] Jul, [facility] [facility] [place] [facility] [address] [id number] [place] [address] Jul, [facility] [place] [facility] [address] [id number] [place] [address] Jul, [facility] [place] [facility] [address] [id number] [place] [address] Jul, [facility] [place] [facility] [address] [id number] [place] [address] Jul, [facility] [place] [facility] [address] [id number] [place] [address] Jul, [facility] [place] [facility] [address] [id number] [place] [address] Jul, [facility] [place] [facility] [address] [id number] [place] [address] Jul, [facility] [place] [facility] [address] [id number] [place] [address] Jul, [facility] [place] [facility] [address] [id number] [place] [address] Jul, [facility] [place] [facility] [address] [id number] [place] [address] Jun, [facility] [place] [facility] [address] [id number] [place] [address] May, [facility] [place] [facility] [address] [id number] [place] [address] Apr, [facility] [place] [facility] [address] [id number] [place] [address] Apr, [facility] [place] [facility] [address] [id number] [place] [address] Apr, [facility] [place] [facility] [address] [id number] [place] [address] Mar, [facility] [place] [facility] [address] [id number] [place] [address] Mar, [facility] [place] [facility] [address] [id number] [place] [address] Mar, [facility] [place] [facility] [address] [id number] [place] [address] 18 Mar, 2013 [facility] [address] [facility] [id number], [place] [address] Mar, [facility] [address] [facility] [facility] [id number][place] [id number] Sep, [facility] [address] [facility] [id number], [place] [address] February, [facility] [address] [facility] [id number], [place] [address] Jan, IMMUNIZATIONS No Known Immunizations SOCIAL HISTORY Never Assessed REASON FOR VISIT Rectal bleeding PLAN OF CARE VITAL SIGNS MEDICATIONS Unknown [...] bleeding 2016 Hospitalization History A fib with [facility] 02/06/17 Hospitalization History Altered mental status, lethargy[facility] 07/10/17 Hospitalization History Chest pain[facility] 08/05/17 Hospitalization History [facility] 10/2017 Hospitalization History Low potassium, A fib 01/2018
--- OUTSIDE RECORDS SUMMARY | 2018-05-17 17:40 | XMS REPORT ---
Author Author FRANCHESKA HEADLEY Organization [facility] Address [address] [place] [address] Care Team Providers Care Lesson Instructor Name Role Phone FRANCHESKA HEADLEY Unavailable PROBLEMS Type Condition ICD9-CM Code [id number] Code Onset Dates Condition Status SNOMED Code Problem Anxiety F41.9 Active 59006787 Problem Seasonal allergic rhinitis, unspecified allergic rhinitis trigger J30.2 Active 711000304 Problem Other chronic pain G89.29 Active 15470240 Problem Chronic fatigue R53.82 Active 03593799 Problem Seizure disorder G40.909 Active 402913401 Problem Unsteady gait R26.81 Active 19181957 Problem Infection of right eye H44.001 Active 22801682122658487 Problem Lumbago with sciatica, left side M54.42 Active 715351905 Problem Chronic pain syndrome G89.4 Active 866541248 Problem Fibromyalgia M79.7 Active 257500997 Problem Atrial fibrillation, unspecified type I48.91 Active 30144155 Problem Esophagitis, reflux K21.0 Active 765307785 Problem Primary insomnia F51.01 Active 758565062 Problem Edema, due to unspecified malnutrition type, unspecified type R60.9 Active 691052135 Problem Polysubstance (excluding opioids) dependence F19.20 Active 28219553 Problem Congestive heart failure, unspecified congestive heart failure chronicity, unspecified congestive heart failure type I50.9 Active 54418032 Problem COPD (chronic obstructive pulmonary disease) with acute bronchitis J44.0 Active 884045378973214 Problem Unspecified mood [affective] disorder F39 Active 841455215 Problem Major depressive disorder, recurrent episode, severe F33.2 Active 534966590580 Problem Lumbago with sciatica, right side M54.41 Active 738681370 ALLERGIES No Information ENCOUNTERS Encounter Location Date Diagnosis [facility] [address] [facility] [id number] [place] [address] Apr, [facility] [address] [place] [id number] [place] [address] 57119- 3764 Mar, Primary insomnia F51.01 and Anxiety F41.9 [facility] [address] [id number] [place] [address] 33862- 4802 Mar, [facility] [id number] [place] [address] 58510- 6443 Mar, [facility] [address] [address]66- 1986 Mar, Lumbago with sciatica, left side M54.42 [place] [address] 75894- 7077 Mar, [facility] [address] [id number] [place] [address] 13210- 5510 Mar, Anxiety F41.9 [place] [address] 93913- 1575 February, [facility] [id number] [place] [address] 19478- 1527 February, Unspecified mood [affective] disorder F39 [facility] [id number] [place] [address] 94904- 3967 February, [facility] [id number] [place] [address] 72255- 3113 February, [facility] [id number] [place] [address] 94168 -9716 February, Hordeolum externum of right upper eyelid H00.011 and Paronychia of finger of right hand L03.011 [facility] [id number] [place] [address] 29112- 9884 February, [facility] [id number] [place] [address] 58575- 6796 February, Primary insomnia F51.01 ; Atrial fibrillation, unspecified type I48.91 ; Unsteady gait R26.81 ; General weakness R53.1 ; Chronic fatigue R53.82 ; Hypokalemia E87.6 and Other chronic pain G89.29 [place] [address] 95882- 0706 February, [place] [address] 50740- 9666 Jan, Lumbago with sciatica, right side M54.41 [place] [address] 82430- 9968 Jan, Anxiety F41.9 ; Chronic pain syndrome G89.4 ; Folliculitis L73.9 and Fibromyalgia M79.7 [place] [address] 10951- 6224 Jan, Lumbago with sciatica, right side M54.41 [place] [address] 59711- 5415 Dec, [place] [address] 97873- 2935 Nov, Lumbago with sciatica, right side M54.41 [place] [address] 02020- 2594 Nov, [place] [address] 70023- 4750 Nov, Unspecified mood [affective] disorder F39 ; Hypokalemia E87.6 and Anemia, unspecified type D64.9 [place] [address] [place] [id number] [place] [address] 60020- 8111 Nov, [place] [address] 08745- 2738 Oct, Lumbago with sciatica, right side M54.41 [facility] [address] 66630 -8396 Aug, Congestive heart failure, unspecified congestive heart failure chronicity, unspecified congestive heart failure type I50.9 and Peripheral edema R60.9 [place] [address] 93001- 3505 Aug, Polysubstance (excluding opioids) dependence F19.20 and Lumbago with sciatica, left side M54.42 [place] [address] 19934- 7868 Aug, [facility] [address] [id number] [place] [address] 22883 -0967 Aug, Infection of right eye H44.001 [place] [address] 21218- 8528 Aug, Congestive heart failure, unspecified congestive heart failure chronicity, unspecified congestive heart failure type I50.9 and Other chronic pain G89.29 [place] [address] 06388- 8931 Aug, Lumbago with sciatica, right side M54.41 [place] [address] 84537- 4117 Aug, Lumbago with sciatica, right side M54.41 [place] [address] 15419- 0748 Aug, [place] [address] [place] [id number] [place] [address] 13959- 3714 Jul, [place] [address] 78675- 0487 Jul, COPD (chronic obstructive pulmonary disease) with acute bronchitis J44.0 ; Atrial fibrillation, unspecified type I48.91 ; Polysubstance (excluding opioids) dependence F19.20 ; Congestive heart failure, unspecified congestive heart failure chronicity, unspecified congestive heart failure type I50.9 and Lumbago with sciatica, right side M54.41 [facility] [address] [address] Jul, [facility] [id number] [place] [address] 68122- 4562 Jul, Seizure disorder G40.909 [facility] [id number] [place] [address] 26543- 9391 Jul, Lumbago with sciatica, right side M54.41 [facility] [address] 44132- 8993 Jul, [facility] [id number] [place] [address] 38058- 5566 Jun, Congestive heart failure, unspecified congestive heart failure chronicity, unspecified congestive heart failure type I50.9 ; Lumbago with sciatica, right side M54.41 and Other chronic pain G89.29 [place] [address] [id number] [place] [address] 92553- 6822 Jun, [facility] [id number] [place] [address] 71133- 3416 Jun, [facility] [id number] [place] [address] 97731- 6692 May, Lumbago with sciatica, left side M54.42 [facility] [id number] [place] [address] 97122- 6404 May, [facility] [id number] [place] [address] 41038 -9349 May, Unspecified fall, initial encounter W19.XXXA [facility] [id number] [place] [address] 68558- 4495 May, Lumbago with sciatica, right side M54.41 [facility] [id number] [place] [address] 64987- 2918 May, [facility] [id number] [place] [address] 58304- 5485 May, Bloating R14.0 and Right hip pain M25.551 [place] [id number] [place] [address] 00393- 8941 Apr, [place] [address] 78968- 0886 Apr, Lumbago with sciatica, left side M54.42 [place] [address] 77737- 4811 Mar, [facility] [place] [address] 67983 -5741 Mar, Lumbago with sciatica, right side M54.41 [facility] [place] [address] 43719 -4713 Mar, Abdominal distension R14.0 [place] [address] 36995- 4704 Mar, Periumbilical abdominal pain R10.33 and Diarrhea, unspecified type R19.7 [facility] IN [address] 23453 -4718 February, Seasonal allergic rhinitis, unspecified allergic rhinitis trigger J30.2 ; Acute middle ear effusion, bilateral H65.193 and Lumbago with sciatica, right side M54.41 [place] [address] 10859- 9097 February, Routine gynecological examination Z01.419 [place] [address] [id number] [place] [address] 59922- 2775 Jan, [place] [address] 58695- 1733 Jan, Atrial fibrillation, unspecified type I48.91 [facility] [place] [id number] [place] [address] 06905 -6307 Jan, Lumbago with sciatica, right side M54.41 and Wound, open, toe, initial encounter S91.109A [facility] [id number] [id number] Jan, [facility] [id number] [place] [address] 29562 -9326 Jan, Acute bilateral low back pain without sciatica M54.5 [facility] [id number] [place] [address] 75100- 5717 Dec, Congestive heart failure, unspecified congestive heart failure chronicity, unspecified congestive heart failure type I50.9 [facility] [address] [id number] [place] [address] 52560- 7932 Dec, [place] [address] [address] [id number] [place] [address] 73761- 0777 Dec, Thrush, oral B37.0 and Lumbago with sciatica, right side M54.41 [facility] [id number] [place] [address] 91383- 6563 Dec, [facility] [id number] [place] [address] 29335- 9311 Nov, [facility] [id number] [place] [address] 08487- 5108 Nov, [facility] [id number] [place] [address] 94672- 9234 Oct, Polysubstance (excluding opioids) dependence F19.20 ; Other chronic pain G89.29 and Lumbago with sciatica, right side M54.41 [facility] [id number] [place] [address] 31532- 5257 Oct, [facility] [address] [id number] [place] [address] 50949- 0290 Aug, Lumbago with sciatica, right side M54.41 ; Other chronic pain G89.29 and Anxiety F41.9 [facility] [address] [place] [id number] [place] [address] 51604- 9405 Aug, [facility] [id number] [place] [address] 14573- 4263 Aug, [facility] [id number] [place] [address] 58669- 8527 Aug, [facility] [id number] [place] [address] 18881- 3320 Aug, [facility] [id number] [place] [address] 10338- 3705 Aug, [facility] [id number] [place] [address] 53544- 9690 Aug, [facility] [id number] [place] [address] 85586- 3061 Jul, Unspecified mood [affective] disorder F39 and Seizure disorder G40.909 [facility] [id number] [place] [address] 23068- 1331 Jul, [facility] [id number] [place] [address] 06323- 4490 Jul, [facility] [id number] [place] [address] 64403- 4174 Jul, Unspecified mood [affective] disorder F39 and Seizure disorder G40.909 [facility] [id number] [place] [address] 54177- 1662 Jul, Polysubstance (excluding opioids) dependence F19.20 ; COPD ( chronic obstructive pulmonary disease) with acute bronchitis J44.0 ; Congestive heart failure, unspecified congestive heart failure chronicity, unspecified congestive heart failure type I50.9 ; Radiculopathy of lumbosacral region M54.17 and Radiculopathy, thoracic region M54.14 [facility] [id number] [place] [address] 09245- 5055 Jun, Lumbago M54.5 [facility] [id number] [address]- 1775 May, [facility] [id number] [place] [address] 93256- 8109 May, [facility] [id number] [place] [address] 63819- 2104 May, [facility] [id number] [place] [address] 12677- 6214 Apr, COPD (chronic obstructive pulmonary disease) with acute bronchitis J44.0 [facility] [address] [place] [address] 44440- 7297 Apr, Major depressive disorder, recurrent episode, severe F33.2 and Polysubstance (excluding opioids) dependence F19.20 [place] [address] [place] [id number] [place] [address] 28539- 5235 Mar, Major depressive disorder, recurrent episode, severe F33.2 and Polysubstance (excluding opioids) dependence F19.20 [facility] [address] [place] [address] 32591- 7007 Mar, Major depressive disorder, recurrent episode, severe F33.2 and Polysubstance (excluding opioids) dependence F19.20 [facility] [address] [place] [address] 39214- 2600 Mar, Major depressive disorder, recurrent episode, severe F33.2 and Polysubstance (excluding opioids) dependence F19.20 [facility] [id number] [place] [address] 35873- 7243 February, Major depressive disorder, recurrent episode, severe F33.2 and Polysubstance (excluding opioids) dependence F19.20 [facility] [id number] [place] [address] 63297- 3216 February, [place] [address] [place] [address] [id number] [place] [address] 26877- 3133 February, COPD (chronic obstructive pulmonary disease) with acute bronchitis J44.0 [facility] [address] [id number] [place] [address] 60866 -6194 February, Sore throat J02.9 and Bronchitis J40 [place] [address] 13113- 6164 Jan, COPD (chronic obstructive pulmonary disease) with acute bronchitis J44.0 [place] [address] 39991- 9069 Jan, COPD (chronic obstructive pulmonary disease) with acute bronchitis J44.0 [place] [address] 68555- 9591 Jan, [address] 05137- 0715 Dec, Gastritis K29.70 ; Constipation K59.00 and Lumbago M54.[address] 47886- 0558 Dec, COPD (chronic obstructive pulmonary disease) with acute bronchitis J44.0 [place] [address] [place] [id number] [place] [address] 99778- 0179 Nov, Major depressive disorder, recurrent episode, severe F33.2 and Polysubstance (excluding opioids) dependence F19.20 [facility] [address] [place] [id number] [place] [address] 77625 -7031 Oct, Oral thrush B37.0 and Drug abuse F19.10 [place] [address] [place] [id number] [place] [address] 12266- 0307 Oct, [address] 24540- 4416 Sep, COPD (chronic obstructive pulmonary disease) with acute bronchitis J44.0 ; Esophagitis, reflux K21.0 ; Seizure disorder G40.909 ; Primary insomnia F51.01 ; Edema, due to unspecified malnutrition type, unspecified type R60.9 ; Arthritis M19.90 and Thrush B37.0 [place] [address] [address]- 2988 Aug, [facility] [address] [address]- 4852 Aug, [facility] [address] [address]- 7732 Aug, [facility] [address] [id number] [place] [address] 12758- 8221 Jul, [facility] [id number] [place] [address] 50731- 0453 Jun, [facility] [address] [id number] [place] [address] 45517- 7321 Jun, Counseling on substance use and abuse V65.42 and Obstructive chronic bronchitis, with (acute) exacerbation 491.21 [facility] [address] [place] [id number] [place] [address] 73281- 4951 May, [facility] [address] [place] [id number] [address]- 9831 Apr, [facility] [address] [place] [id number] [place] [address] 64141- 1384 Apr, Abdominal pain 789.00 and Back pain 724.5 [facility] [address] [address]- 8103 Mar, Back pain 724.5 and Illicit drug use 305.90 [facility] [address] [address]- 6403 February, Onychomycosis 110.1 [facility] [address] [place] [id number] [place] [address] 29006- 7243 February, Breast cancer screening V76.10 [facility] [address] [address]- 5524 February, [facility] [address] [place] [address] 04687- 1950 February, [facility] [address] [address]- 0224 February, Cough 786.2 ; Obstructive chronic bronchitis, with (acute) exacerbation 491.21 ; Vomiting 787.03 ; 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 and Gastritis 535.50 [facility] [address] [place] [id number] [place] [address] 33707- 9694 14 Jan, 2015 [facility] [address] [place] [id number] [place] [address] 32762- 0193 Jan, [facility] [address] [place] [id number] [place] [address] 74196- 9863 Dec, [facility] [address] [id number] [place] [address] 52978- 4657 Dec, [facility] [address] [id number] [place] [address] 05677- 1683 Dec, [facility] [address] [id number] [place] [address] 85183- 9966 Dec, [facility] [address] [id number] [place] [address] 28900- 2919 Dec, [facility] [address] [id number] [place] [address] 69904- 3135 Dec, [facility] [id number] [place] [address] 06728- 8974 Dec, [facility] [address] [id number] [address]- 0720 Dec, [facility] [address] [place] [id number] [place] [address] 11353- 6510 Dec, [facility] [address] [place] [id number] [place] [address] 16997- 2311 Sep, [facility] [address] [address]- 4541 Sep, [facility] [place] [facility] [address] [id number] [place] [address]- 2323 Sep, [facility] [place] [facility] [address] [id number] [place] [address]- 9694 Sep, [facility] [place] [facility] [address] [id number] [place] [address]- 7117 Sep, [facility] [place] [facility] [address] [id number] [place] [address]- 5061 Sep, [facility] [place] [facility] [address] [id number] [place] [address]- 4091 Sep, [facility] [place] [facility] [address] [id number] [place] [address]- 1340 Sep, [facility] [place] [facility] [address] [id number] [place] [address]- 7676 Sep, [facility] [place] [facility] [address] [id number] [place] [address]- 7949 Sep, [facility] [place] [facility] [address] [id number] [place] [address]- 2136 Aug, [facility] [place] [facility] [address] [id number] [place] [address]- 1097 Aug, [facility] [place] [facility] [address] [facility] [id number] [place] [address]- 0253 Aug, [facility] [place] [facility] [address] [id number] [place] [address]- 6583 Aug, [facility] [place] [facility] [address] [id number] [place] [address]- 8908 Jul, [facility] [place] [facility] [address] [id number] [place] [address]- 3166 Jul, [facility] [place] [facility] [address] [id number] [place] [address]- 0376 Jun, [facility] [place] [facility] [address] [id number] [place] [address]- 2365 Jun, [facility] [place] [facility] [address] [id number] [place] [address]- 1464 May, [facility] [place] [facility] [address] [id number] [place] [address]- 0069 May, [facility] [place] [facility] [address] [id number] [place] [address]- 6703 May, [facility] [place] [facility] [address] [id number] [place] [address]- 2575 May, [facility] [place] [facility] [address] [id number] [place] [address]- 5951 May, [facility] [place] [facility] [address] [id number] [place] [address]- 7288 May, [facility] [place] [facility] [address] [id number] [place] [address]- 4240 Apr, [facility] [place] [facility] [address] [id number] [place] [address]- 1063 Apr, [facility] [place] [facility] [address] [id number] [place] [address]- 5308 Apr, [facility] [place] [facility] [address] [id number] [place] [address]- 4976 Apr, [facility] [place] [facility] [address] [id number] [place] [address]- 3465 February, [facility] [place] [facility] [address] [id number] [place] [address]- 8579 February, [facility] [place] [facility] [address] [id number] [place] [address]- 4772 Oct, [facility] [place] [facility] [address] [id number] [place] [address]- 6858 Oct, [facility] [place] [facility] [address] [id number] [place] [address]- 8418 Oct, [facility] [place] [facility] [address] [id number] [place] 0310 Oct, [facility] [address] [id number] [place] [address] [address] Sep, [facility] [place] [facility] [address] [id number] [place] Sep, [facility] [place] [facility] [address] [id number] [place] [address] Sep, [facility] [place] [facility] [address] [id number] [place] [address] Sep, [facility] [place] [facility] [address] [id number] [place] [address] Aug, [facility] [place] [facility] [address] [id number] [place] [address] Aug, [facility] [place] [facility] [address] [id number] [place] [address] Aug, [facility] [place] [facility] [address] [id number] [place] [address] Aug, [facility] [place] [facility] [address] [id number] [place] [address] Jul, [facility] [place] [facility] [address] [id number] [place] [address] Jul, [facility] [place] [facility] [address] [id number] [place] [address] Jul, [facility] [place] [facility] [address] [id number] [place] [address] Jul, [facility] [place] [facility] [address] [id number] [place] [address] Jul, [facility] [place] [facility] [address] [id number] [place] [address] Jul, [facility] [place] [facility] [address] [id number] [place] [address] Jul, [facility] [place] [facility] [address] [id number] [place] [address] Jul, [facility] [place] [facility] [address] [id number] [place] [address] Jul, [facility] [place] [facility] [address] [id number] [place] [address] Jul, [facility] [place] [facility] [address] [id number] [place] [address] Jun, [facility] [place] [facility] [address] [id number] [place] [address] May, [facility] [place] [facility] [address] [id number] [place] [address] Apr, [facility] [place] [facility] [address] [id number] [place] [address] Apr, [facility] [place] [facility] [address] [id number] [place] [address] Apr, [facility] [place] [facility] [address] [id number] [place] [address] Mar, [facility] [place] [facility] [address] [id number] [place] [address] Mar, [facility] [place] [facility] [address] [id number] [place] [address] Mar, [facility] [place] [facility] [address] [id number] [place] [address] Mar, [facility] [place] [facility] [address] [id number] [place] [address] Mar, [facility] [place] [facility] [address] [id number] [place] [address] Sep, [facility] [place] [facility] [address] [id number] [place] [address] February, [facility] [place] [facility] [address] [id number] [address] Jan, IMMUNIZATIONS No Known Immunizations SOCIAL HISTORY Never Assessed REASON FOR VISIT Injection Request PLAN OF CARE VITAL SIGNS MEDICATIONS Unknown [...] bleeding 2015 Hospitalization History A fib with [facility] 02/06/17 Hospitalization History Altered mental status, lethargy-[facility] 07/10/17 Hospitalization History Chest pain-[facility] 08/05/17 Hospitalization History [facility] 10/2017 Hospitalization History Low potassium, A fib 01/2018 Hospitalization History Head injury 03/2018
--- OUTSIDE RECORDS SUMMARY | 2018-05-17 17:41 | XMS REPORT ---
Author Author FRANCHESKA HEADLEY [facility] Address [address] [place] [address] Care Team Providers Care Superintendent Horticulture Name Role Phone FRANCHESKA HEADLEY Unavailable PROBLEMS Type Condition ICD9-CM Code JOH18-IP Code Onset Dates Condition Status SNOMED Code Problem Anxiety F41.9 Active 99002947 Problem Seasonal allergic rhinitis, unspecified allergic rhinitis trigger J30.2 Active 641122952 Problem Other chronic pain G89.29 Active 84388219 Problem Chronic fatigue R53.82 Active 87657919 Problem Seizure disorder G40.909 Active 373617849 Problem Unsteady gait R26.81 Active 37039637 Problem Infection of right eye H44.001 Active 55846475045573900 Problem Lumbago with sciatica, left side M54.42 Active 887747607 Problem Chronic pain syndrome G89.4 Active 116631379 Problem Fibromyalgia M79.7 Active 721028683 Problem Atrial fibrillation, unspecified type I48.91 Active 73212815 Problem Esophagitis, reflux K21.0 Active 924907861 Problem Primary insomnia F51.01 Active 627912002 Problem Edema, due to unspecified malnutrition type, unspecified type R60.9 Active 912548313 Problem Polysubstance (excluding opioids) dependence F19.20 Active 63905102 Problem Congestive heart failure, unspecified congestive heart failure chronicity, unspecified congestive heart failure type I50.9 Active 80977301 Problem COPD (chronic obstructive pulmonary disease) with acute bronchitis J44.0 Active 588370161069729 Problem Unspecified mood [affective] disorder F39 Active 133708276 Problem Major depressive disorder, recurrent episode, severe F33.2 Active 980572041183 Problem Lumbago with sciatica, right side M54.41 Active 583354306 ALLERGIES Substance Reaction Event Type Date Status [...] Jul, Active ENCOUNTERS Encounter Location Date Diagnosis [place] [address] [address] February, [address] [address] February, Primary insomnia F51.01 ; Atrial fibrillation, unspecified type I48.91 ; Unsteady gait R26.81 ; General weakness R53.1 ; Chronic fatigue R53.82 ; Hypokalemia E87.6 and Other chronic pain G89.[address] [address] February, [address] [address]- [address] Jan, Lumbago with sciatica, right side M54.41 [place] [id number] [place] [address] 15523- 6902 Jan, Anxiety F41.9 ; Chronic pain syndrome G89.4 ; Folliculitis L73.9 and Fibromyalgia M79.7 [place] [address] [place] [id number] [place] [address] 93145- 0479 Jan, Lumbago with sciatica, right side M54.41 [place] [address] [place] [id number] [place] [address] 93985- 9440 Dec, [address] 0[address]- [address] Nov, Lumbago with sciatica, right side M54.41 [place] [address] [place] [id number] [place] [address] 31912- 7585 Nov, [place] [address] [place] [id number] [place] [address] 28500- 2916 Nov, Unspecified mood [affective] disorder F39 ; Hypokalemia E87.6 and Anemia, unspecified type D64.9 [place] [address] [place] [id number] [place] [address] 53565- 9149 Nov, [place] [address] 23500- 6472 Oct, Lumbago with sciatica, right side M54.41 [facility] [place] [address] [address] [place] [id number] [place] [address] 39729 -0427 Aug, Congestive heart failure, unspecified congestive heart failure chronicity, unspecified congestive heart failure type I50.9 and Peripheral edema R60.9 [place] [address] [place] [id number] [place] [address] 19312- 0382 Aug, Polysubstance (excluding opioids) dependence F19.20 and Lumbago with sciatica, left side M54.42 [place] [address] [place] [id number] [place] [address] 82734- 8471 17 Aug, 2017 [facility] [place] [address] [place] [id number] [place] [address] 06063 -1674 Aug, Infection of right eye H44.001 [place] [address] [place] [id number] [place] [address] 73038- 8556 14 Aug, 2017 Congestive heart failure, unspecified congestive heart failure chronicity, unspecified congestive heart failure type I50.9 and Other chronic pain G89.29 [place] [address] [place] [address] [place] [address] 89780- 8634 09 Aug, 2017 Lumbago with sciatica, right side M54.41 [place] [address] [place] [id number] [place] [address] 99201- 2596 09 Aug, 2017 Lumbago with sciatica, right side M54.41 [place] [address] [place] [address] Aug, [facility] [address] [place] [address] 32826- 7510 Jul, [facility] [address] [place] [id number] [place] [address] 19549- 3010 Jul, COPD (chronic obstructive pulmonary disease) with acute bronchitis J44.0 ; Atrial fibrillation, unspecified type I48.91 ; Polysubstance (excluding opioids) dependence F19.20 ; Congestive heart failure, unspecified congestive heart failure chronicity, unspecified congestive heart failure type I50.9 and Lumbago with sciatica, right side M54.41 [facility] [address] [place] [id number] [place] [address] [id number] Jul, [facility] [address] [place] [id number] [place] [address] 40627- 0409 Jul, Seizure disorder G40.909 [facility] [address] [place] [address] [place] [address] 27192- 7424 Jul, Lumbago with sciatica, right side M54.41 [facility] [address] [place] [address] 44333- 4198 Jul, [facility] [address] [place] [address] 98527- 7709 Jun, Congestive heart failure, unspecified congestive heart failure chronicity, unspecified congestive heart failure type I50.9 ; Lumbago with sciatica, right side M54.41 and Other chronic pain G89.29 [facility] [address] [address] 32[address] Jun, [facility] [address] [place] [id number] [place] [address] 24182- 6229 Jun, [facility] [address] [place] [address] [place] [address] 73637- 0551 May, Lumbago with sciatica, left side M54.42 [facility] [address] [place] [address] [place] [address] 37400- 6607 May, [facility] [place] [address] [place] [address] [place] [address] 28364 -5997 May, Unspecified fall, initial encounter W19.XXXA [place] [address] [place] [address] [place] [address] 43071- 5090 May, Lumbago with sciatica, right side M54.41 [place] [address] [place] [address] [place] [address] 79188- 9394 May, [place] [address] 07036- 8067 May, Bloating R14.0 and Right hip pain M25.551 [place] [address] [place] [address] [place] [address] 69945- 5317 Apr, [place] [address] [place] [address] [place] [address] 67268- 6151 Apr, Lumbago with sciatica, left side M54.42 [place] [address] [place] [address] [place] [address] 72330- 8322 Mar, [facility] [place] [address] [place] [address] [place] [address] 78751 -3079 Mar, Lumbago with sciatica, right side M54.41 [facility] [place] [address] [place] [address] [place] [address] 49046 -0725 Mar, Abdominal distension R14.0 [place] [address] [place] [address] [place] [address] 34355- 4453 Mar, Periumbilical abdominal pain R10.33 and Diarrhea, unspecified type R19.7 [facility] [place] [address] [place] [address] [place] [address] 92337 -2992 February, Seasonal allergic rhinitis, unspecified allergic rhinitis trigger J30.2 ; Acute middle ear effusion, bilateral H65.193 and Lumbago with sciatica, right side M54.41 [facility] [address] [place] [address] [place] [address] 37837- 7871 February, Routine gynecological examination Z01.419 [place] [address] [place] [address] [place] [address] 05580- 2702 Jan, [place] [address] [place] [address] [place] [address] 89715- 8792 Jan, Atrial fibrillation, unspecified type I48.91 [facility] [address] [address]308 Jan, Lumbago with sciatica, right side M54.41 and Wound, open, toe, initial encounter S91.109A [place] [address] [address] [place] [id number] [place] [address] [id number] Jan, [facility] [address] 6[address] -5706 Jan, Acute bilateral low back pain without sciatica M54.5 [place] [address] [place] [id number] [place] [address] 48741- 6262 Dec, Congestive heart failure, unspecified congestive heart failure chronicity, unspecified congestive heart failure type I50.9 [place] [address] [place] [id number] [place] [address] 40032- 0600 Dec, [place] [address] 20463- 0818 Dec, Thrush, oral B37.0 and Lumbago with sciatica, right side M54.41 [place] [address] [place] [address] [place] [address] 21536- 7671 Dec, [place] [address] 70033- 8713 Nov, [place] [address] [place] [address] [place] [address] 56454- 3355 Nov, [place] [address] [place] [address] [place] [address] 50955- 1633 Oct, Polysubstance (excluding opioids) dependence F19.20 ; Other chronic pain G89.29 and Lumbago with sciatica, right side M54.41 [facility] [address] [place] [id number] [place] [address] 24627- 1624 Oct, [facility] [address] 02443- 0634 Aug, Lumbago with sciatica, right side M54.41 ; Other chronic pain G89.29 and Anxiety F41.9 [facility] [address] [place] [id number] [place] [address] 55327- 2307 Aug, [facility] [address] [place] [address] [place] [address] 20863- 7281 Aug, [facility] [address] [place] [address] [place] [address] 14768- 2231 Aug, [facility] [address] [place] [address] [place] [address] 04858- 4902 Aug, [facility] [address] [place] [address] [place] [address] 84396- 5719 Aug, [facility] [address] [place] [address] [place] [address] 73819- 9501 Aug, [facility] [address] [place] [address] [place] [address] 19138- 9174 Jul, Unspecified mood [affective] disorder F39 and Seizure disorder G40.909 [facility] [address] [place] [address] [place] [address] 50753- 8096 Jul, [facility] [address] [place] [address] [place] [address] 62879- 5076 Jul, [facility] [address] [place] [address] 91661- 3783 Jul, Unspecified mood [affective] disorder F39 and Seizure disorder G40.909 [facility] [address] [place] [address] 32638- 1699 Jul, Polysubstance (excluding opioids) dependence F19.20 ; COPD ( chronic obstructive pulmonary disease) with acute bronchitis J44.0 ; Congestive heart failure, unspecified congestive heart failure chronicity, unspecified congestive heart failure type I50.9 ; Radiculopathy of lumbosacral region M54.17 and Radiculopathy, thoracic region M54.14 [facility] [address] [place] [id number] [place] [address] 86286- 1890 Jun, Lumbago M54.5 [place] [address] [place] [address] [place] [address] 52123- 5210 May, [place] [address] [place] [address] [place] [address] 65239- 3081 May, [place] [address] [place] [address] [place] [address] 53260- 2699 May, [place] [address] [place] [address] [place] [address] 81219- 3402 Apr, COPD (chronic obstructive pulmonary disease) with acute bronchitis J44.0 [facility] [address] [place] [address] [place] [address] 42011- 6472 Apr, Major depressive disorder, recurrent episode, severe F33.2 and Polysubstance (excluding opioids) dependence F19.20 [facility] [address] [place] [address] [place] [address] 12671- 3477 Mar, Major depressive disorder, recurrent episode, severe F33.2 and Polysubstance (excluding opioids) dependence F19.20 [place] [address] [place] [address] [place] [address] 27744- 9746 Mar, Major depressive disorder, recurrent episode, severe F33.2 and Polysubstance (excluding opioids) dependence F19.20 [place] [address] [place] [address] [place] [address] 64681- 9599 Mar, Major depressive disorder, recurrent episode, severe F33.2 and Polysubstance (excluding opioids) dependence F19.20 [place] [address] [place] [id number] [place] [address] 44435- 7177 February, Major depressive disorder, recurrent episode, severe F33.2 and Polysubstance (excluding opioids) dependence F19.[address] 93741- 9574 February, [place] [address] 22282- 2805 February, COPD (chronic obstructive pulmonary disease) with acute bronchitis J44.0 [facility] [address] 12[address] -0135 February, Sore throat J02.9 and Bronchitis J40 [address] 25100- 1436 Jan, COPD (chronic obstructive pulmonary disease) with acute bronchitis J44.[address] 30210- 8475 Jan, COPD (chronic obstructive pulmonary disease) with acute bronchitis J44.0 [place] [address] 05008- 8354 Jan, [address] 29186- 5515 Dec, Gastritis K29.70 ; Constipation K59.00 and Lumbago M54.[address] 30726- 0578 Dec, COPD (chronic obstructive pulmonary disease) with acute bronchitis J44.0 [place] [address] [place] [id number] [place] [address] 82010- 9374 Nov, Major depressive disorder, recurrent episode, severe F33.2 and Polysubstance (excluding opioids) dependence F19.20 [facility] [address] [place] [id number] [place] [address] 56192 -1539 Oct, Oral thrush B37.0 and Drug abuse F19.10 [facility] [address] [place] [id number] [place] [address] 45881- 5439 Oct, [facility] [address] [place] [address] [place] [address] 86797- 4899 Sep, COPD (chronic obstructive pulmonary disease) with acute bronchitis J44.0 ; Esophagitis, reflux K21.0 ; Seizure disorder G40.909 ; Primary insomnia F51.01 ; Edema, due to unspecified malnutrition type, unspecified type R60.9 ; Arthritis M19.90 and Thrush B37.0 [facility] [address] [place] [id number] [place] [address] 26431- 3530 Aug, [facility] [address] 87471- 6734 Aug, [facility] [address] [place] [id number] [place] [address] 73320- 3111 Aug, [facility] [address] [place] [id number] [place] [address] 18636- 6020 Jul, [facility] [address] [place] [address] [place] [address] 24411- 1731 Jun, [facility] [address] [place] [address] [place] [address] 15329- 0035 Jun, Counseling on substance use and abuse V65.42 and Obstructive chronic bronchitis, with (acute) exacerbation 491.21 [facility] [address] [place] [id number] [place] [address] 89703- 9324 May, [facility] [address] 39757- 3493 Apr, [facility] [address] [place] [id number] [place] [address] 74867- 8504 Apr, Abdominal pain 789.00 and Back pain 724.5 [place] [address] [address]- 8942 Mar, Back pain 724.5 and Illicit drug use 305.90 [facility] [address] [place] [address] [address]- 1232 February, Onychomycosis 110.1 [facility] [address] [place] [address] [place] [address] 19084- 1088 February, Breast cancer screening V76.10 [facility] [address] [place] [address] [place] [address] 05938- 9842 February, [facility] [address] [place] [address] [place] [address] 477767- 8233 February, [facility] [address] [address]- 3610 February, Cough 786.2 ; Obstructive chronic bronchitis, with (acute) exacerbation 491.21 ; Vomiting 787.03 ; 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 and Gastritis 535.50 [facility] [address] [address]- 7060 Jan, [facility] [address] [place] [id number] [place] [address] 67960- 0152 Jan, [facility] [address] [address]- 0957 24 Dec, 2014 [facility] [address] [address]- 4479 Dec, [facility] [address], [place] [address]- 4151 Dec, [facility] [address] [place] [id number] [place] [address] 99219- 7855 Dec, [facility] [address] [address]- 8947 13 Dec, 2014 [facility] [address] [place] [address] 57427- 0880 Dec, [facility] [place] [facility] [address] [id number] [place] [address]- 2814 Dec, [facility] [place] [facility] [address] [id number] [place] [address]- 1005 Dec, [facility] [place] [facility] [address] [id number] [place] [address]- 0780 Dec, [facility] [place] [facility] [address] [id number] [place] [address]- 1923 Sep, [facility] [place] [facility] [address] [id number] [place] [address]- 5954 Sep, [facility] [place] [facility] [address] [id number] [place] [address]- 4520 Sep, [facility] [place] [facility] [address] [id number] [place] [address]- 1446 Sep, [facility] [place] [facility] [address] [id number] [place] [address]- 3290 Sep, [facility] [place] [facility] [address] [id number] [place] [address]- 9429 Sep, [facility] [place] [facility] [address] [id number] [place] [address]- 2655 Sep, [facility] [place] [facility] [address] [id number] [place] [address]- 5165 Sep, [facility] [place] [facility] [address] [id number] [address]- 7103 Sep, [facility] [place] [facility] [address] [id number] [place] [address]- 4044 Sep, [facility] [place] [facility] [address] [id number] [place] [address]- 3783 Aug, [facility] [place] [facility] [address] [id number] [place] [address]- 8520 Aug, [facility] [place] [facility] [address] [id number] [place] [address]- 8710 Aug, [facility] [place] [facility] [address] [id number] [place] [address]- 6792 Aug, [facility] [place] [facility] [address] [id number] [place] [address]- 8327 Jul, [facility] [place] [facility] [address] [id number] [place] [address]- 2079 Jul, [facility] [place] [facility] [address] [id number] [place] [address]- 1116 Jun, [facility] [place] [facility] [address] [id number] [place] [address]- 5921 Jun, [facility] [place] [facility] [address] [id number] [place] [address]- 2927 May, [facility] [place] [facility] [address] [id number] [place] [address]- 8239 May, [facility] [place] [facility] [address] [id number] [place] [address]- 8709 May, [facility] [place] [facility] [address] [id number] [place] [address]- 0553 May, [facility] [place] [facility] [address] [id number] [place] [address]- 2432 May, [facility] [place] [facility] [address] [id number] [place] [address]- 0292 May, [facility] [place] [facility] [address] [id number] [place] [address]- 8991 Apr, [facility] [place] [facility] [address] [id number] [place] [address]- 1794 Apr, [facility] [place] [facility] [address] [id number] [place] [address]- 5662 Apr, [facility] [place] [facility] [address] [id number] [place] [address]- 1871 Apr, [facility] [place] [facility] [address] [id number] [place] [address]- 2596 February, [facility] [address] [id number] [place] [address]- 6198 February, [facility] [address] [id number] [place] [address]- 4928 Oct, [facility] [address] [id number] [place] [address]- 3571 Oct, [facility] [address] [id number] [place] [address]- 6266 Oct, [facility] [address] [id number] [place] [address]- 9649 Oct, [facility] [address] [id number] [place] [address] Sep, [facility] [address] [id number] [place] [address] Sep, [facility] [address] [id number] [place] [address] Sep, [facility] [address] [id number] [place] [address] Sep, [facility] [address] [id number] [place] [address] Aug, [facility] [place] [facility] [address] [id number] [address] Aug, [facility] [place] [facility] [address] [id number] [place] [address] Aug, [facility] [place] [facility] [address] [id number] [place] [address] Aug, [facility] [place] [facility] [address] [id number] [place] [address] Jul, [facility] [place] [facility] [address] [id number], [place] [address] Jul, [facility] [place] [facility] [address] [id number] [place] [address] Jul, [facility] [place] [facility] [address] [id number] [place] [address] Jul, [facility] [place] [facility] [address] [id number] [place] [address] Jul, [facility] [place] [facility] [address] [id number] [place] [address] Jul, [facility] [place] [facility] [address] [id number] [place] [address] Jul, [facility] [place] [facility] [address] [id number] [place] [address] Jul, [facility] [place] [facility] [address] [id number] [place] [address] Jul, [facility] [place] [facility] [address] [id number] [place] [address] Jul, [facility] [place] [facility] [address] [id number] [place] [address] Jun, [facility] [place] [facility] [address] [id number] [place] [address] May, [facility] [place] [facility] [address] [id number] [place] [address] Apr, [facility] [place] [facility] [address] [id number] [place] [address] Apr, [facility] [place] [facility] [address] [id number] [place] [address] Apr, [facility] [place] [facility] [address] [id number] [place] [address] Mar, [facility] [place] [facility] [address] [id number] [place] [address] Mar, [facility] [place] [facility] [address] [id number] [place] [address] 24 Mar, 2013 [facility] [address] [facility] [id number], [place] [address] Mar, [facility] [address] [place] [id number] [address] Mar, [facility] [address] [facility] [id number] [address] Sep, [facility] [id number] [address] February, [facility] [address] [id number], [place] [address] Jan, IMMUNIZATIONS No Known Immunizations SOCIAL HISTORY Never Assessed REASON FOR VISIT Refill request PLAN OF CARE VITAL SIGNS MEDICATIONS Medication Instructions Dosage Frequency Start Date End Date Duration Status Keppra 1000 MG Orally every 12 hrs 1 tablet 12h 90 days Active RESULTS No Results PROCEDURES No Known [...] bleeding 2016 Hospitalization History A fib with [facility] 02/06/17 Hospitalization History Altered mental status, lethargy-[facility] 07/10/17 Hospitalization History Chest pain-[facility] 08/05/17 Hospitalization History [facility] 10/2017 Hospitalization History Low potassium, A fib 01/2018
--- OUTSIDE RECORDS SUMMARY | 2018-05-17 17:42 | XMS REPORT ---
Author Author FRANCHESKA HEADLEY Organization [facility] Address [address] [place] [address] Care Team Providers Care Cv Tech Name Role Phone FRANCHESKA HEADLEY Unavailable PROBLEMS Type Condition ICD9-CM Code SLR88-SZ Code Onset Dates Condition Status SNOMED Code Problem Anxiety F41.9 Active 17651269 Problem Seasonal allergic rhinitis, unspecified allergic rhinitis trigger J30.2 Active 479473142 Problem Other chronic pain G89.29 Active 63926473 Problem Chronic fatigue R53.82 Active 35443643 Problem Seizure disorder G40.909 Active 753552007 Problem Unsteady gait R26.81 Active 58671168 Problem Infection of right eye H44.001 Active [id number] Problem Lumbago with sciatica, left side M54.42 Active 209336832 Problem Chronic pain syndrome G89.4 Active 500285177 Problem Fibromyalgia M79.7 Active 353309867 Problem Atrial fibrillation, unspecified type I48.91 Active 98074385 Problem Esophagitis, reflux K21.0 Active 138882144 Problem Primary insomnia F51.01 Active 491444736 Problem Edema, due to unspecified malnutrition type, unspecified type R60.9 Active 065375793 Problem Polysubstance (excluding opioids) dependence F19.20 Active 95683602 Problem Congestive heart failure, unspecified congestive heart failure chronicity, unspecified congestive heart failure type I50.9 Active 08645974 Problem COPD (chronic obstructive pulmonary disease) with acute bronchitis J44.0 Active [id number] Problem Unspecified mood [affective] disorder F39 Active 937791846 Problem Major depressive disorder, recurrent episode, severe F33.2 Active 059874037718 Problem Lumbago with sciatica, right side M54.41 Active 414516761 ALLERGIES No Information ENCOUNTERS Encounter Location Date Diagnosis [facility] [address] [facility] [id number] [place] [address] Apr, [facility] [id number] [place] [address] 84213- 2660 Mar, Primary insomnia F51.01 and Anxiety F41.9 [facility] [id number] [place] [address] 96601- 9122 Mar, [facility] [id number] [place] [address] 61595- 6393 Mar, [facility] [address] 69853- 8467 Mar, Lumbago with sciatica, left side M54.42 [place] [address] 35460- 4822 Mar, [facility] [id number] [place] [address] 25269- 5918 Mar, Anxiety F41.9 [place] [address] 91889- 1331 February, [facility] [id number] [place] [address] 76742- 4572 February, Unspecified mood [affective] disorder F39 [facility] [id number] [place] [address] 37565- 5540 February, [facility] [id number] [place] [address] 79483- 6972 February, [facility] [id number] [place] [address] 32510 -9469 February, Hordeolum externum of right upper eyelid H00.011 and Paronychia of finger of right hand L03.011 [facility] [id number] [place] [address] 80170- 3568 February, [facility] [id number] [place] [address] 18701- 3011 February, Primary insomnia F51.01 ; Atrial fibrillation, unspecified type I48.91 ; Unsteady gait R26.81 ; General weakness R53.1 ; Chronic fatigue R53.82 ; Hypokalemia E87.6 and Other chronic pain G89.29 [place] [address] 76365- 8430 February, [place] [address] 73264- 9993 Jan, Lumbago with sciatica, right side M54.41 [place] [address] 38133- 4486 Jan, Anxiety F41.9 ; Chronic pain syndrome G89.4 ; Folliculitis L73.9 and Fibromyalgia M79.7 [place] [address] 53965- 9068 Jan, Lumbago with sciatica, right side M54.41 [place] [address] 23536- 8597 Dec, [place] [address] 65599- 9637 Nov, Lumbago with sciatica, right side M54.41 [place] [address] 72236- 3144 Nov, [place] [address] 52740- 4513 Nov, Unspecified mood [affective] disorder F39 ; Hypokalemia E87.6 and Anemia, unspecified type D64.9 [place] [id number] [place] [address] 81091- 8926 Nov, [place] [address] 70721- 0096 Oct, Lumbago with sciatica, right side M54.41 [facility] [address] 91436 -3988 Aug, Congestive heart failure, unspecified congestive heart failure chronicity, unspecified congestive heart failure type I50.9 and Peripheral edema R60.9 [place] [address] 82915- 3276 Aug, Polysubstance (excluding opioids) dependence F19.20 and Lumbago with sciatica, left side M54.42 [place] [address] 91706- 0808 Aug, [facility] [id number] [place] [address] 26142 -9799 Aug, Infection of right eye H44.001 [place] [address] 87910- 4162 Aug, Congestive heart failure, unspecified congestive heart failure chronicity, unspecified congestive heart failure type I50.9 and Other chronic pain G89.29 [place] [address] 82850- 4606 Aug, Lumbago with sciatica, right side M54.41 [place] [address] 46288- 6158 Aug, Lumbago with sciatica, right side M54.41 [place] [address] 13654- 1289 Aug, [place] [id number] [place] [address] 06986- 5868 Jul, [place] [address] 91540- 8803 Jul, COPD (chronic obstructive pulmonary disease) with acute bronchitis J44.0 ; Atrial fibrillation, unspecified type I48.91 ; Polysubstance (excluding opioids) dependence F19.20 ; Congestive heart failure, unspecified congestive heart failure chronicity, unspecified congestive heart failure type I50.9 and Lumbago with sciatica, right side M54.41 [facility] [address] [id number] Jul, [facility] [id number] [place] [address] 59698- 5995 Jul, Seizure disorder G40.909 [facility] [id number] [place] [address] 01145- 4875 Jul, Lumbago with sciatica, right side M54.41 [facility] [address] 54865- 4137 Jul, [facility] [id number] [place] [address] 14490- 3878 Jun, Congestive heart failure, unspecified congestive heart failure chronicity, unspecified congestive heart failure type I50.9 ; Lumbago with sciatica, right side M54.41 and Other chronic pain G89.29 [place] [id number] [place] [address] 18217- 5697 Jun, [facility] [id number] [place] [address] 83666- 3509 Jun, [facility] [id number] [place] [address] 47300- 4034 May, Lumbago with sciatica, left side M54.42 [facility] [id number] [place] [address] 76286- 8159 May, [facility] [id number] [place] [address] 87846 -8713 May, Unspecified fall, initial encounter W19.XXXA [facility] [id number] [place] [address] 92619- 3488 May, Lumbago with sciatica, right side M54.41 [facility] [id number] [place] [address] 20940- 8134 May, [facility] [id number] [place] [address] 24810- 2038 May, Bloating R14.0 and Right hip pain M25.551 [place] [id number] [place] [address] 94855- 9796 Apr, [place] [address] 34221- 0354 Apr, Lumbago with sciatica, left side M54.42 [place] [address] 85223- 5773 Mar, [facility] [place] [address] 73503 -7185 Mar, Lumbago with sciatica, right side M54.41 [facility] [place] [address] 07594 -2927 Mar, Abdominal distension R14.0 [place] [address] 24739- 6512 Mar, Periumbilical abdominal pain R10.33 and Diarrhea, unspecified type R19.7 [facility] [address] 70698 -[address]51 February, Seasonal allergic rhinitis, unspecified allergic rhinitis trigger J30.2 ; Acute middle ear effusion, bilateral H65.193 and Lumbago with sciatica, right side M54.41 [place] [address] 51817- 4144 February, Routine gynecological examination Z01.419 [place] [id number] [place] [address] 17628- 3946 Jan, [place] [address] 17398- 8338 Jan, Atrial fibrillation, unspecified type I48.91 [facility] [place] [id number] [place] [address] 39904 -7759 Jan, Lumbago with sciatica, right side M54.41 and Wound, open, toe, initial encounter S91.109A [facility] [id number] [place] [id number] Jan, [facility] [address] [place] [address] 25715 -7674 Jan, Acute bilateral low back pain without sciatica M54.5 [facility] [address] [place] [address] 18609- 8902 Dec, Congestive heart failure, unspecified congestive heart failure chronicity, unspecified congestive heart failure type I50.9 [facility] [id number] [place] [address] 24711- 9152 Dec, [place] [id number] [place] [address] 53960- 3651 Dec, Thrush, oral B37.0 and Lumbago with sciatica, right side M54.41 [facility] [id number] [place] [address] 90529- 4178 Dec, [facility] [id number] [place] [address] 24773- 4385 Nov, [facility] [id number] [place] [address] 15743- 2111 Nov, [facility] [id number] [place] [address] 58598- 7161 Oct, Polysubstance (excluding opioids) dependence F19.20 ; Other chronic pain G89.29 and Lumbago with sciatica, right side M54.41 [facility] [address] [place] [address] 71335- 4593 Oct, [facility] [id number] [place] [address] 81678- 4318 Aug, Lumbago with sciatica, right side M54.41 ; Other chronic pain G89.29 and Anxiety F41.9 [facility] [id number] [place] [address] 76749- 4026 Aug, [facility] [address] [place] [address] 66475- 8888 Aug, [facility] [id number] [place] [address] 71166- 6110 Aug, [facility] [id number] [place] [address] 09773- 1642 Aug, [facility] [id number] [place] [address] 02536- 4773 Aug, [facility] [id number] [place] [address] 21080- 9661 Aug, [facility] [id number] [place] [address] 72358- 5678 Jul, Unspecified mood [affective] disorder F39 and Seizure disorder G40.909 [facility] [id number] [place] [address] 81584- 1703 Jul, [facility] [id number] [place] [address] 41978- 2129 Jul, [facility] [id number] [place] [address] 00758- 9017 Jul, Unspecified mood [affective] disorder F39 and Seizure disorder G40.909 [facility] [address] [place] [address] 67694- 3031 Jul, Polysubstance (excluding opioids) dependence F19.20 ; COPD ( chronic obstructive pulmonary disease) with acute bronchitis J44.0 ; Congestive heart failure, unspecified congestive heart failure chronicity, unspecified congestive heart failure type I50.9 ; Radiculopathy of lumbosacral region M54.17 and Radiculopathy, thoracic region M54.14 [facility] [address] [place] [address] 36852- 0174 Jun, Lumbago M54.5 [facility] [id number] [address]- 4213 May, [facility] [id number] [place] [address] 42782- 4276 May, [facility] [id number] [place] [address] 71863- 7484 May, [facility] [id number] [place] [address] 63621- 9538 Apr, COPD (chronic obstructive pulmonary disease) with acute bronchitis J44.0 [facility] [address] [place] [address] 47589- 5143 Apr, Major depressive disorder, recurrent episode, severe F33.2 and Polysubstance (excluding opioids) dependence F19.20 [place] [id number] [place] [address] 32740- 1311 Mar, Major depressive disorder, recurrent episode, severe F33.2 and Polysubstance (excluding opioids) dependence F19.20 [facility] [address] [place] [address] 95891- 8063 Mar, Major depressive disorder, recurrent episode, severe F33.2 and Polysubstance (excluding opioids) dependence F19.20 [facility] [address] [place] [address] 52175- 7810 Mar, Major depressive disorder, recurrent episode, severe F33.2 and Polysubstance (excluding opioids) dependence F19.20 [facility] [address] [place] [address] 41956- 0719 February, Major depressive disorder, recurrent episode, severe F33.2 and Polysubstance (excluding opioids) dependence F19.20 [facility] [id number] [place] [address] 53011- 4165 February, [place] [id number] [place] [address] 90118- 4443 February, COPD (chronic obstructive pulmonary disease) with acute bronchitis J44.0 [facility] [id number] [place] [address] 64377 -2487 February, Sore throat J02.9 and Bronchitis J40 [place] [address] 25397- 0074 Jan, COPD (chronic obstructive pulmonary disease) with acute bronchitis J44.0 [place] [address] 59929- 4022 Jan, COPD (chronic obstructive pulmonary disease) with acute bronchitis J44.0 [place] [address] 23076- 2586 Jan, [address] 87252- 6256 Dec, Gastritis K29.70 ; Constipation K59.00 and Lumbago M54.[address] 01896- 4456 Dec, COPD (chronic obstructive pulmonary disease) with acute bronchitis J44.0 [place] [id number] [place] [address] 03378- 1325 Nov, Major depressive disorder, recurrent episode, severe F33.2 and Polysubstance (excluding opioids) dependence F19.20 [facility] [id number] [place] [address] 64218 -7412 Oct, Oral thrush B37.0 and Drug abuse F19.10 [place] [id number] [place] [address] 56790- 1940 Oct, [address] 32663- 8813 Sep, COPD (chronic obstructive pulmonary disease) with acute bronchitis J44.0 ; Esophagitis, reflux K21.0 ; Seizure disorder G40.909 ; Primary insomnia F51.01 ; Edema, due to unspecified malnutrition type, unspecified type R60.9 ; Arthritis M19.90 and Thrush B37.0 [place] [address] [address]- 1755 Aug, [facility] [address] [place] [address]- 2488 Aug, [facility] [address] [place] [address]- 9848 Aug, [facility] [id number] [place] [address] 43754- 1165 Jul, [facility] [address] [place] [address] 07750- 1842 Jun, [facility] [id number] [place] [address] 43380- 5586 Jun, Counseling on substance use and abuse V65.42 and Obstructive chronic bronchitis, with (acute) exacerbation 491.21 [facility] [id number] [place] [address] 36519- 9984 May, [facility] [id number] [place] [address]- 9658 Apr, [facility] [id number] [place] [address] 35497- 9459 Apr, Abdominal pain 789.00 and Back pain 724.5 [facility] [address] [place] [address]- 4660 Mar, Back pain 724.5 and Illicit drug use 305.90 [facility] [address] [place] [address]- 7997 February, Onychomycosis 110.1 [facility] [id number] [place] [address] 88132- 3577 February, Breast cancer screening V76.10 [facility] [address] [place] [address]- 8753 February, [facility] [address] [place] [address] 77906- 0750 February, [facility] [address] [place] [address]- 2381 February, Cough 786.2 ; Obstructive chronic bronchitis, with (acute) exacerbation 491.21 ; Vomiting 787.03 ; 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 and Gastritis 535.50 [facility] [id number] [place] [address] 62063- 7469 14 Jan, 2015 [facility] [id number] [place] [address] 43145- 8969 Jan, [facility] [id number] [place] [address] 19444- 2682 Dec, [facility] [id number] [place] [address] 30257- 0162 Dec, [facility] [id number] [place] [address] 58927- 0862 Dec, [facility] [id number] [place] [address] 94929- 9067 Dec, [facility] [id number] [place] [address] 46572- 1997 Dec, [facility] [id number] [place] [address] 00429- 5155 Dec, [facility] [address] [place] [address] 93507- 8701 Dec, [facility] [id number] [address]- 7392 Dec, [facility] [id number] [place] [address] 80307- 3811 Dec, [facility] [id number] [place] [address] 78910- 6069 Sep, [facility] [address] [place] [address]- 0914 Sep, [facility] [place] [facility] [address] [id number] [place] [address]- 7166 Sep, [facility] [place] [facility] [address] [id number] [place] [address]- 3194 Sep, [facility] [place] [facility] [address] [id number] [place] [address]- 9299 Sep, [facility] [place] [facility] [address] [id number] [place] [address]- 2205 Sep, [facility] [place] [facility] [address] [id number] [place] [address]- 6495 Sep, [facility] [place] [facility] [address] [id number] [place] [address]- 6883 Sep, [facility] [place] [facility] [address] [id number] [place] [address]- 5463 Sep, [facility] [place] [facility] [address] [id number] [place] [address]- 1775 Sep, [facility] [place] [facility] [address] [id number] [place] [address]- 2910 Aug, [facility] [place] [facility] [address] [id number] [place] [address]- 2680 Aug, [facility] [place] [facility] [address] [facility] [id number] [place] [address]- 7481 Aug, [facility] [place] [facility] [address] [id number] [place] [address]- 9160 Aug, [facility] [place] [facility] [address] [id number] [place] [address]- 3679 Jul, [facility] [place] [facility] [address] [id number] [place] [address]- 9586 Jul, [facility] [place] [facility] [address] [id number] [place] [address]- 5146 Jun, [facility] [place] [facility] [address] [id number] [place] [address]- 8840 Jun, [facility] [place] [facility] [address] [id number] [place] [address]- 3937 May, [facility] [place] [facility] [address] [id number] [place] [address]- 7661 May, [facility] [place] [facility] [address] [id number] [place] [address]- 0321 May, [facility] [place] [facility] [address] [id number] [place] [address]- 8403 May, [facility] [place] [facility] [address] [id number] [place] [address]- 1753 May, [facility] [place] [facility] [address] [id number] [place] [address]- 9770 May, [facility] [place] [facility] [address] [id number] [place] [address]- 3424 Apr, [facility] [place] [facility] [address] [id number] [place] [address]- 8420 Apr, [facility] [place] [facility] [address] [id number] [place] [address] Apr, [facility] [place] [facility] [address] [id number] [place] [address] Apr, [facility] [place] [facility] [address] [id number] [place] [address] February, [facility] [place] [facility] [address] [id number] [place] [address] February, [facility] [place] [facility] [address] [id number] [place] [address] Oct, [facility] [place] [facility] [address] [id number] [place] [address] Oct, [facility] [place] [facility] [address] [id number] [place] [address] Oct, [facility] [place] [facility] [address] [id number] [place] Oct, [facility] [address] [id number] [place] [address] Sep, [facility] [place] [facility] [address] [id number] [place] [address] Sep, [facility] [place] [facility] [address] [id number] [place] [address] Sep, [facility] [place] [facility] [address] [id number] [place] [address] Sep, [facility] [place] [facility] [address] [id number] [place] [address] Aug, [facility] [place] [facility] [address] [id number] [place] [address] Aug, [facility] [place] [facility] [address] [id number] [place] [address] Aug, [facility] [place] [facility] [address] [id number] [place] [address] Aug, [facility] [place] [facility] [address] [id number] [place] [address] Jul, [facility] [place] [facility] [address] [id number] [place] [address] Jul, [facility] [place] [facility] [address] [id number] [place] [address] Jul, [facility] [place] [facility] [address] [id number] [place] [address] Jul, [facility] [place] [facility] [address] [id number] [place] [address] Jul, [facility] [place] [facility] [address] [id number] [place] [address] Jul, [facility] [place] [facility] [address] [id number] [place] [address] Jul, [facility] [place] [facility] [address] [id number] [place] [address] Jul, [facility] [place] [facility] [address] [id number] [place] [address] Jul, [facility] [place] [facility] [address] [id number] [place] [address] Jul, [facility] [place] [facility] [address] [id number] [place] [address]- 1460 Jun, [facility] [place] [facility] [address] [id number] [place] [address] May, [facility] [place] [facility] [address] [id number] [place] [address] Apr, [facility] [place] [facility] [address] [id number] [place] [address] Apr, [facility] [place] [facility] [address] [id number] [place] [address] Apr, [facility] [place] [facility] [address] [id number] [place] [address] Mar, [facility] [place] [facility] [address] [id number] [place] [address] Mar, [facility] [place] [facility] [address] [id number] [place] [address] Mar, [facility] [place] [facility] [address] [id number] [place] [address] Mar, [facility] [place] [facility] [address] [id number] [place] [address] Mar, [facility] [place] [facility] [address] [id number] [place] [address] Sep, [facility] [place] [facility] [address] [id number] [place] [address] February, [facility] [place] [facility] [address] [id number] [place] [address] Jan, IMMUNIZATIONS No Known Immunizations SOCIAL HISTORY Never Assessed REASON FOR VISIT medication refill PLAN OF CARE VITAL SIGNS MEDICATIONS Medication Instructions Dosage Frequency Start Date End Date Duration Status Pantoprazole Sodium 40 MG Orally Once a day 1 tablet 24h 30 days Active RESULTS No Results PROCEDURES No [...] bleeding 2015 Hospitalization History A fib with [facility] 02/06/17 Hospitalization History Altered mental status, lethargy-[facility] 07/10/17 Hospitalization History Chest pain-[facility] 08/05/17 Hospitalization History [facility] 10/2017 Hospitalization History Low potassium, A fib 01/2018 Hospitalization History Head injury 03/2018
--- OUTSIDE RECORDS SUMMARY | 2018-05-17 17:42 | XMS REPORT ---
Author Author FRANCHESKA HEADLEY [facility] Address [address] [place] [address] Care Team Providers Care Slip Cover Estimator Name Role Phone FRANCHESKA HEADLEY Unavailable PROBLEMS Type Condition ICD9-CM Code DDS62-QB Code Onset Dates Condition Status SNOMED Code Problem Anxiety F41.9 Active 35919338 Problem Seasonal allergic rhinitis, unspecified allergic rhinitis trigger J30.2 Active 358393772 Problem Other chronic pain G89.29 Active 86972264 Problem Chronic fatigue R53.82 Active 91336073 Problem Seizure disorder G40.909 Active 597770207 Problem Unsteady gait R26.81 Active 63903261 Problem Infection of right eye H44.001 Active [id number] Problem Lumbago with sciatica, left side M54.42 Active 157850431 Problem Chronic pain syndrome G89.4 Active 535521418 Problem Fibromyalgia M79.7 Active 400967520 Problem Atrial fibrillation, unspecified type I48.91 Active 34203264 Problem Esophagitis, reflux K21.0 Active 893881233 Problem Primary insomnia F51.01 Active 112744390 Problem Edema, due to unspecified malnutrition type, unspecified type R60.9 Active 122863356 Problem Polysubstance (excluding opioids) dependence F19.20 Active 88523044 Problem Congestive heart failure, unspecified congestive heart failure chronicity, unspecified congestive heart failure type I50.9 Active 58261279 Problem COPD (chronic obstructive pulmonary disease) with acute bronchitis J44.0 Active 782194409193884 Problem Unspecified mood [affective] disorder F39 Active 242623151 Problem Major depressive disorder, recurrent episode, severe F33.2 Active 907640579826 Problem Lumbago with sciatica, right side M54.41 Active 156841216 ALLERGIES Substance Reaction Event Type Date Status [...] Nov, Active ENCOUNTERS Encounter Location Date Diagnosis [facility] [id number] [place] [address] 30312- 0266 Apr, [facility] [id number] [place] [address] 22374- 3397 Mar, Primary insomnia F51.01 and Anxiety F41.9 [facility] [id number] [place] [address] 52882- 5925 18 Mar, 2018 [facility] [address] 58927- 5372 Mar, [facility] [id number] [place] [address] 76709- 6634 13 Mar, 2018 Lumbago with sciatica, left side M54.42 [facility] [id number] [place] [address] 82970- 4884 Mar, [facility] [id number] [place] [address] 17701- 4237 05 Mar, 2018 Anxiety F41.9 [facility] [id number] [place] [address] 62989- 6747 February, [facility] [id number] [place] [address] 44727- 6975 February, Unspecified mood [affective] disorder F39 [facility] [id number] [place] [address] 77424- 7464 February, [facility] [id number] [place] [address] 38365- 6170 February, [facility] [id number] [place] [address] 36750 -0990 February, Hordeolum externum of right upper eyelid H00.011 and Paronychia of finger of right hand L03.011 [facility] [id number] [place] [address] 99079- 3152 February, [place] [address] 98869- 3580 February, Primary insomnia F51.01 ; Atrial fibrillation, unspecified type I48.91 ; Unsteady gait R26.81 ; General weakness R53.1 ; Chronic fatigue R53.82 ; Hypokalemia E87.6 and Other chronic pain G89.29 [place] [address] 42194- 8215 February, [place] [address] 48269- 0712 Jan, Lumbago with sciatica, right side M54.41 [place] [address] 12475- 2561 Jan, Anxiety F41.9 ; Chronic pain syndrome G89.4 ; Folliculitis L73.9 and Fibromyalgia M79.7 [place] [id number] [place] [address] 28073- 8470 Jan, Lumbago with sciatica, right side M54.41 [place] [id number] [place] [address] 40413- 4456 Dec, [place] [address] 09914- 7926 Nov, Lumbago with sciatica, right side M54.41 [place] [id number] [place] [address] 71267- 6598 Nov, [place] [address] 06130- 4128 Nov, Unspecified mood [affective] disorder F39 ; Hypokalemia E87.6 and Anemia, unspecified type D64.9 [place] [address] 28566- 7495 Nov, [place] [address] 87220- 7854 Oct, Lumbago with sciatica, right side M54.41 [facility] [place] [address] 91419 -0968 Aug, Congestive heart failure, unspecified congestive heart failure chronicity, unspecified congestive heart failure type I50.9 and Peripheral edema R60.9 [place] [address] 23735- 4438 Aug, Polysubstance (excluding opioids) dependence F19.20 and Lumbago with sciatica, left side M54.42 [place] [address] 54884- 1738 Aug, [facility] [place] [address] 67011 -2756 Aug, Infection of right eye H44.001 [place] [address] 67524- 1747 14 Aug, 2017 Congestive heart failure, unspecified congestive heart failure chronicity, unspecified congestive heart failure type I50.9 and Other chronic pain G89.29 [place] [address] 70195- 4315 Aug, Lumbago with sciatica, right side M54.41 [place] [address] 48415- 3609 Aug, Lumbago with sciatica, right side M54.41 [place] [address] 24755- 4506 Aug, [place] [address] [place] [address]- 2103 Jul, [facility] [id number] [place] [address] 37077- 8214 Jul, COPD (chronic obstructive pulmonary disease) with acute bronchitis J44.0 ; Atrial fibrillation, unspecified type I48.91 ; Polysubstance (excluding opioids) dependence F19.20 ; Congestive heart failure, unspecified congestive heart failure chronicity, unspecified congestive heart failure type I50.9 and Lumbago with sciatica, right side M54.41 [facility] [id number] [place] [address] [id number] Jul, [facility] [id number] [place] [address] 82391- 3283 Jul, Seizure disorder G40.909 [facility] [id number] [place] [address] 32142- 4778 Jul, Lumbago with sciatica, right side M54.41 [facility] [id number] [place] [address] 02356- 1150 Jul, [facility] [id number] [place] [address] 63316- 1535 Jun, Congestive heart failure, unspecified congestive heart failure chronicity, unspecified congestive heart failure type I50.9 ; Lumbago with sciatica, right side M54.41 and Other chronic pain G89.29 [facility] [id number] [place] [address] 93359- 8688 Jun, [facility] [id number] [place] [address] 45145- 8528 Jun, [facility] [id number] [place] [address] 59968- 3957 May, Lumbago with sciatica, left side M54.42 [facility] [id number] [address]- 4015 May, [facility] [id number] [place] [address] 41536 -9381 May, Unspecified fall, initial encounter W19.XXXA [place] [address] 75767- 8300 May, Lumbago with sciatica, right side M54.41 [place] [address] 41484- 5802 May, [place] [address] 98516- 8939 May, Bloating R14.0 and Right hip pain M25.551 [place] [address] 44568- 1570 Apr, [place] [address] 03949- 0552 Apr, Lumbago with sciatica, left side M54.42 [place] [address] 40559- 8422 Mar, [facility] [address] 04268 -6316 Mar, Lumbago with sciatica, right side M54.41 [facility] [place] [address] 43636 -0759 Mar, Abdominal distension R14.0 [place] [id number] [place] [address] 75415- 7233 Mar, Periumbilical abdominal pain R10.33 and Diarrhea, unspecified type R19.7 [facility] [address] 96613 -9470 February, Seasonal allergic rhinitis, unspecified allergic rhinitis trigger J30.2 ; Acute middle ear effusion, bilateral H65.193 and Lumbago with sciatica, right side M54.41 [place] [address] 23138- 2160 February, Routine gynecological examination Z01.419 [facility] [id number] [place] [address] 97687- 9656 Jan, [place] [id number] [place] [address] 90209- 8489 Jan, Atrial fibrillation, unspecified type I48.91 [facility] [id number] [place] [address] 33889 -6040 Jan, Lumbago with sciatica, right side M54.41 and Wound, open, toe, initial encounter S91.109A [facility] [id number] [place] [address] [id number] Jan, [facility] [id number] [place] [address] 90570 -4799 Jan, Acute bilateral low back pain without sciatica M54.5 [place] [id number] [place] [address] 15015- 9444 Dec, Congestive heart failure, unspecified congestive heart failure chronicity, unspecified congestive heart failure type I50.9 [place] [id number] [place] [address] 12885- 6053 Dec, [facility] [id number] [place] [address] 69953- 5858 Dec, Thrush, oral B37.0 and Lumbago with sciatica, right side M54.41 [facility] [id number] [place] [address] 85848- 3345 Dec, [facility] [id number] [place] [address] 04072- 8071 Nov, [place] [id number] [place] [address] 75396- 0137 Nov, [facility] [id number] [place] [address] 38909- 6555 Oct, Polysubstance (excluding opioids) dependence F19.20 ; Other chronic pain G89.29 and Lumbago with sciatica, right side M54.41 [facility] [id number] [place] [address] 46538- 3406 Oct, [facility] [id number] [place] [address] 39136- 3571 Aug, Lumbago with sciatica, right side M54.41 ; Other chronic pain G89.29 and Anxiety F41.9 [facility] [id number] [place] [address] 99881- 5330 Aug, [facility] [id number] [place] [address] 48403- 4720 Aug, [facility] [id number] [place] [address] 06177- 7415 Aug, [facility] [id number] [place] [address] 34475- 1915 Aug, [facility] [id number] [place] [address] 18139- 6788 Aug, [facility] [id number] [place] [address] 67742- 3839 Aug, [facility] [id number] [place] [address] 16311- 9848 Jul, Unspecified mood [affective] disorder F39 and Seizure disorder G40.909 [facility] [id number] [place] [address] 86036- 2484 Jul, [facility] [id number] [place] [address] 26424- 7690 Jul, [facility] [id number] [place] [address] 48506- 7893 Jul, Unspecified mood [affective] disorder F39 and Seizure disorder G40.909 [facility] [id number] [place] [address] 23583- 8833 Jul, Polysubstance (excluding opioids) dependence F19.20 ; COPD ( chronic obstructive pulmonary disease) with acute bronchitis J44.0 ; Congestive heart failure, unspecified congestive heart failure chronicity, unspecified congestive heart failure type I50.9 ; Radiculopathy of lumbosacral region M54.17 and Radiculopathy, thoracic region M54.14 [facility] [id number] [place] [address] 69773- 2073 Jun, Lumbago M54.5 [facility] [id number] [place] [address] 65882- 6365 May, [facility] [id number] [place] [address] 94710- 4835 May, [facility] [id number] [place] [address] 47932- 1284 May, [facility] [id number] [place] [address] 71866- 0146 Apr, COPD (chronic obstructive pulmonary disease) with acute bronchitis J44.0 [facility] [id number] [place] [address] 03619- 9792 Apr, Major depressive disorder, recurrent episode, severe F33.2 and Polysubstance (excluding opioids) dependence F19.20 [facility] [address] [address]- 2953 Mar, Major depressive disorder, recurrent episode, severe F33.2 and Polysubstance (excluding opioids) dependence F19.20 [facility] [id number] [place] [address] 88009- 4424 Mar, Major depressive disorder, recurrent episode, severe F33.2 and Polysubstance (excluding opioids) dependence F19.20 [facility] [address] [place] [address]- 0046 Mar, Major depressive disorder, recurrent episode, severe F33.2 and Polysubstance (excluding opioids) dependence F19.20 [facility] [id number] [place] [address] 35274- 7648 February, Major depressive disorder, recurrent episode, severe F33.2 and Polysubstance (excluding opioids) dependence F19.20 [facility] [id number] [place] [address] 27505- 9876 February, [place] [address] 14177- 4119 February, COPD (chronic obstructive pulmonary disease) with acute bronchitis J44.0 [facility] [id number] [place] [address] 59629 -4144 February, Sore throat J02.9 and Bronchitis J40 [place] [address] 51606- 2925 Jan, COPD (chronic obstructive pulmonary disease) with acute bronchitis J44.0 [place] [address] 70027- 0752 Jan, COPD (chronic obstructive pulmonary disease) with acute bronchitis J44.0 [place] [address] 33603- 6989 Jan, [place] [id number] [place] [address] 55965- 9885 Dec, Gastritis K29.70 ; Constipation K59.00 and Lumbago M54.5 [place] [id number] [place] [address] 59630- 7858 Dec, COPD (chronic obstructive pulmonary disease) with acute bronchitis J44.0 [place] [id number] [place] [address] 86300- 8615 Nov, Major depressive disorder, recurrent episode, severe F33.2 and Polysubstance (excluding opioids) dependence F19.20 [facility] [id number] [place] [address] 72448 -3474 Oct, Oral thrush B37.0 and Drug abuse F19.10 [facility] [id number] [place] [address] 71405- 9178 Oct, [facility] [id number] [place] [address] 81805- 2920 Sep, COPD (chronic obstructive pulmonary disease) with acute bronchitis J44.0 ; Esophagitis, reflux K21.0 ; Seizure disorder G40.909 ; Primary insomnia F51.01 ; Edema, due to unspecified malnutrition type, unspecified type R60.9 ; Arthritis M19.90 and Thrush B37.0 [facility] [id number] [place] [address] 36213- 6554 Aug, [facility] [address] 72276- 5825 Aug, [facility] [address] 76991- 3397 Aug, [facility] [id number] [place] [address] 15205- 9059 Jul, [facility] [id number] [place] [address] 12015- 0222 Jun, [facility] [id number] [place] [address] 95425- 8327 Jun, Counseling on substance use and abuse V65.42 and Obstructive chronic bronchitis, with (acute) exacerbation 491.21 [facility] [id number] [place] [address] 49617- 4528 May, [facility] [id number] [place] [address] 45885- 6785 Apr, [facility] [address] 04417- 6859 Apr, Abdominal pain 789.00 and Back pain 724.5 [facility] [id number] [place] [address] 09958- 1680 Mar, Back pain 724.5 and Illicit drug use 305.90 [facility] [address], [place] [address]- 7382 February, Onychomycosis 110.1 [facility] [address] 7567 February, Breast cancer screening V76.10 [facility] [id number] [place] [address] 54158- 1988 February, [facility] [id number] [place] [address] 33373- 7216 February, [facility] [id number] [place] [address] 13154- 2050 February, Cough 786.2 ; Obstructive chronic bronchitis, with (acute) exacerbation 491.21 ; Vomiting 787.03 ; 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 and Gastritis 535.50 [facility] [id number] [place] [address] 65953- 0799 Jan, [facility] [address], [place] [address]- 6520 Jan, [facility] [id number] [place] [address] 77440- 5855 24 Dec, 2014 [facility] [address], [place] [address]- 2251 Dec, [facility] [address] [place] [address]- 7653 20 Dec, 2014 [facility] [address], [place] [address]- 2725 Dec, [facility] [id number] [place] [address] 454477- 4500 Dec, [facility] [address] 3419 Dec, [facility] [address] [place] [address]- 4654 Dec, [facility] [place] [facility] [address] [id number] [place] [address]- 0560 Dec, [facility] [place] [facility] [address] [id number] [place] [address]- 3910 Dec, [facility] [place] [facility] [address] [id number] [place] [address]- 9671 Sep, [facility] [place] [facility] [address] [id number] [place] [address]- 5753 Sep, [facility] [place] [facility] [address] [id number] [place] [address]- 1928 Sep, [facility] [place] [facility] [address] [id number] [place] [address]- 7239 Sep, [facility] [place] [facility] [address] [id number] [place] [address]- 1374 Sep, [facility] [place] [facility] [address] [id number] [place] [address]- 8089 Sep, [facility] [place] [facility] [address] [id number] [place] [address]- 9496 Sep, [facility] [place] [facility] [address] [id number] [place] [address]- 0478 Sep, [facility] [place] [facility] [address] [id number] [place] [address]- 1006 Sep, [facility] [place] [facility] [address] [id number] [place] [address]- 8516 Sep, [facility] [place] [facility] [address] [id number] [place] [address]- 9514 Aug, [facility] [place] [facility] [address] [id number] [place] [address]- 1083 Aug, [facility] [place] [facility] [address] [id number] [place] [address]- 0268 Aug, [facility] [place] [facility] [address] [id number] [address]- 6867 Aug, [facility] [place] [facility] [address] [id number] [place] [address]- 8538 Jul, [facility] [place] [facility] [address] [id number] [place] [address] Jul, [facility] [place] [facility] [address] [id number] [place] [address] Jun, [facility] [place] [facility] [address] [id number] [place] [address] Jun, [facility] [place] [facility] [address] [id number] [place] [address] May, [facility] [place] [facility] [address] [id number] [place] [address] May, [facility] [place] [facility] [address] [id number] [place] [address] May, [facility] [place] [facility] [address] [id number] [place] [address] May, [facility] [place] [facility] [address] [id number] [place] [address] May, [facility] [place] [facility] [address] [id number] [place] [address] May, [facility] [place] [facility] [address] [id number] [place] [address] Apr, [facility] [place] [facility] [address] [id number] [place] [address] Apr, [facility] [place] [facility] [address] [id number] [place] [address] Apr, [facility] [place] [facility] [address] [id number] [place] [address] Apr, [facility] [place] [facility] [address] [id number] [place] [address] February, [facility] [place] [facility] [address] [id number] [place] [address] February, [facility] [place] [facility] [address] [id number] [place] [address] Oct, [facility] [place] [facility] [address] [id number] [place] [address] Oct, [facility] [place] [facility] [address] [id number] [place] [address] Oct, [facility] [place] [facility] [address] [id number] [place] [address] Oct, [facility] [place] [facility] [address] [id number] [place] [address] Sep, [facility] [place] [facility] [address] [id number] [place] [address] Sep, [facility] [place] [facility] [address] [id number] [place] [address] Sep, [facility] [place] [facility] [address] [id number] [place] [address] Sep, [facility] [place] [facility] [address] [id number] [place] [address] Aug, [facility] [place] [facility] [address] [id number] [place] [address] Aug, [facility] [place] [facility] [address] [id number] [place] [address] Aug, [facility] [place] [facility] [address] [id number] [place] [address] Aug, [facility] [place] [facility] [address] [id number] [place] [address] Jul, [facility] [place] [facility] [address] [id number] [place] [address] Jul, [facility] [place] [facility] [address] [id number] [place] [address] Jul, [facility] [place] [facility] [address] [id number] [place] [address] Jul, [facility] [place] [facility] [address] [id number] [place] [address] Jul, [facility] [place] [facility] [address] [id number] [place] [address] Jul, [facility] [place] [facility] [address] [id number] [place] [address] Jul, [facility] [place] [facility] [address] [id number] [place] [address] Jul, [facility] [place] [facility] [address] [id number] [place] [address] Jul, [facility] [place] [facility] [address] [id number] [place] [address] Jul, [facility] [place] [facility] [address] [id number] [place] [address] Jun, [facility] [place] [facility] [address] [id number] [place] [address] May, [facility] [place] [facility] [address] [id number] [place] [address] Apr, [facility] [place] [facility] [address] [id number], [place] [address] Apr, [facility] [place] [facility] [address] [id number], [place] [address] Apr, [facility] [place] [facility] [address] [id number] [place] [address] Mar, [facility] [place] [facility] [address] [id number] [place] [address] Mar, [facility] [place] [facility] [address] [id number] [place] [address] Mar, [facility] [place] [facility] [address] [facility] [id number] [place] [address] Mar, [facility] [address] [facility] [id number], [place] [address] Mar, [facility] [address] [facility] [id number], [place] [address] Sep, [facility] [address] [facility] [id number], [place] [address] February, [facility] [address] [facility] [id number], [place] [address] Jan, IMMUNIZATIONS Vaccine Route Administration Date Status TORADOL (IM) 60 MG/2ML (UP TO 15 MG) IM Intramuscular Nov 29, 2017 Administered SOCIAL HISTORY Never Assessed REASON FOR VISIT f/u [facility]. Reports sleeping better, waking up happy. , Wants to talk about some things, did not want to elaborate with this nurse. CBrumbackRN PLAN OF CARE VITAL SIGNS Height 64 in 2017-11-29 Weight 141.8 lbs 2017-11-29 Temperature 98.6 degrees Fahrenheit 2017-11-29 Heart Rate 76 bpm 2017-11-29 Respiratory Rate 20 2017-11-29 BMI 24.34 kg/m2 2017-11-29 Blood pressure systolic 104 mmHg 2017-11-29 Blood pressure diastolic 70 mmHg 2017-11-29 MEDICATIONS Medication Instructions Dosage Frequency Start Date End Date Duration Status Prazosin HCl 2 MG Orally Once a day 1 capsule at bedtime 24h Active Keppra 1000 MG Orally every 12 hrs 1 tablet 12h 90 Active Cyclobenzaprine HCl 10 mg Orally 2 times a day 1 tablet as needed 12h 25 Jun, 2017 Active Potassium Chloride ER 20 meq Orally twice a day 1 tablet with food 12h Active Digoxin 125 MCG TAKE ONE TABLET BY MOUTH EVERY DAY 90 Active Polyethylene Glycol 3350 17 gm/dose Orally 2 times a day 1 packet mixed with 8 ounces of fluid 12h Active Albuterol Sulfate HFA 108 (90 Base) MCG/ACT Inhalation every 6 hrs 2 puffs as needed 6h Active Acidophilus - Active Omeprazole 40 MG Orally at bedtime 1 capsule Active Meclizine HCl 25 MG TAKE ONE TABLET BY MOUTH EVERY DAY NEEDED FOR DIZZINESS 30 Active Pantoprazole Sodium 40 mg Orally Once a day 1 tablet 24h Active Metoprolol Tartrate 25 MG Orally Twice a day 1 tablet with food 12h Active Xarelto 20 MG Orally Once a day 1 tablet with food 24h Active Oxygen 2 L/NC Active Furosemide 20 MG Orally twice a day 1 tablet 12h Active Mirtazapine 30 MG Orally Once a day 1 tablet at bedtime 24h Active Cartia XT 180 MG Orally Once a day 1 capsule 24h Active RESULTS No Results PROCEDURES Procedure Date Ordered Result Body [facility] Nov 29, 2017 TORADOL (IM) 60 MG/2ML (UP TO 15 MG) Nov 29, 2017 VENIPUNCT, ROUTINE* Nov 29, 2017 THER/PROPH/DIAG INJ, SC/IM Nov 29, 2017 INSTRUCTIONS MEDICATIONS ADMINISTERED No Known Medications [...] bleeding 2015 Hospitalization History A fib with [facility] 02/06/17 Hospitalization History Altered mental status, lethargy-[facility] 07/10/17 Hospitalization History Chest pain-[facility] 08/05/17 Hospitalization History [facility] 10/2017 Hospitalization History Low potassium, A fib 01/2018 Hospitalization History Head injury 03/2018
--- OUTSIDE RECORDS SUMMARY | 2018-05-17 17:43 | XMS REPORT ---
Author Author FRANCHESKA HEADLEY Organization [facility] Address [address] [place] [address] Care Team Providers Care Senior Agricultural Assistant Name Role Phone FRANCHESKA HEADLEY Unavailable PROBLEMS Type Condition ICD9-CM Code YTI03-OU Code Onset Dates Condition Status SNOMED Code Problem Unspecified mood [affective] disorder F39 Active 159822346 Problem Anxiety F41.9 Active 42772889 Problem Lumbago with sciatica, right side M54.41 Active 588963124 Problem Chronic pain syndrome G89.4 Active 336672803 Problem Fibromyalgia M79.7 Active 727135577 Problem Seasonal allergic rhinitis, unspecified allergic rhinitis trigger J30.2 Active 670015119 Problem Other chronic pain G89.29 Active 09366906 Problem Infection of right eye H44.001 Active 95422875869099201 Problem Lumbago with sciatica, left side M54.42 Active 215801280 Problem Primary insomnia F51.01 Active 993871268 Problem Edema, due to unspecified malnutrition type, unspecified type R60.9 Active 913238270 Problem Seizure disorder G40.909 Active 775316580 Problem COPD (chronic obstructive pulmonary disease) with acute bronchitis J44.0 Active [id number] Problem Polysubstance (excluding opioids) dependence F19.20 Active 61555658 Problem Atrial fibrillation, unspecified type I48.91 Active 90373719 Problem Major depressive disorder, recurrent episode, severe F33.2 Active 297034803995 Problem Esophagitis, reflux K21.0 Active 121490077 Problem Congestive heart failure, unspecified congestive heart failure chronicity, unspecified congestive heart failure type I50.9 Active 00330138 ALLERGIES No Information ENCOUNTERS Encounter Location Date Diagnosis [facility] [address] [facility] [id number] [address] February, [facility] [address] [facility] [id number], [place] [address] Jan, Anxiety F41.9 ; Chronic pain syndrome G89.4 ; Folliculitis L73.9 and Fibromyalgia M79.7 [place] [address] [address]- 8593 Jan, Lumbago with sciatica, right side M54.41 [place] [address] 40213- 2436 Dec, [place] [address] 33885- 1157 Nov, Lumbago with sciatica, right side M54.41 [place] [address] 08403- 1637 Nov, [place] [address] 00880- 1567 Nov, Unspecified mood [affective] disorder F39 ; Hypokalemia E87.6 and Anemia, unspecified type D64.9 [place] [address] 34045- 4782 Nov, [place] [address] 99688- 2880 Oct, Lumbago with sciatica, right side M54.41 [facility] [place] [address] [address] Aug, Congestive heart failure, unspecified congestive heart failure chronicity, unspecified congestive heart failure type I50.9 and Peripheral edema R60.9 [place] [address] 14968- 6102 Aug, Polysubstance (excluding opioids) dependence F19.20 and Lumbago with sciatica, left side M54.42 [place] [address] 53433- 1327 Aug, [facility] [address] [address]60 -[address]152 Aug, Infection of right eye H44.001 [place] [address] [place] [address] 41749- 9260 Aug, Congestive heart failure, unspecified congestive heart failure chronicity, unspecified congestive heart failure type I50.9 and Other chronic pain G89.29 [place] [address] [place] [id number] [place] [address] 26076- 0128 Aug, Lumbago with sciatica, right side M54.41 [place] [address] [place] [id number] [place] [address] 05053- 1193 Aug, Lumbago with sciatica, right side M54.41 [place] [address] [place] [id number] [place] [address] 67767- 5401 Aug, [place] [address] [place] [id number] [place] [address] 57003- 8776 Jul, [place] [address] [place] [id number] [place] [address] 64988- 2630 Jul, COPD (chronic obstructive pulmonary disease) with acute bronchitis J44.0 ; Atrial fibrillation, unspecified type I48.91 ; Polysubstance (excluding opioids) dependence F19.20 ; Congestive heart failure, unspecified congestive heart failure chronicity, unspecified congestive heart failure type I50.9 and Lumbago with sciatica, right side M54.41 [facility] [address] [place] [id number] [place] [address] [id number] Jul, [place] [address] [place] [address] 82941- 0380 Jul, Seizure disorder G40.909 [place] [address] [place] [id number] [place] [address] 84691- 8364 Jul, Lumbago with sciatica, right side M54.41 [facility] [address] [place] [id number] [place] [address] 44193- 1454 Jul, [place] [address] [id number] [address] Jun, Congestive heart failure, unspecified congestive heart failure chronicity, unspecified congestive heart failure type I50.9 ; Lumbago with sciatica, right side M54.41 and Other chronic pain G89.29 [place] [address] [id number] [address] 6[address] Jun, [place] [address] [place] [id number] [place] [address] 94650- 1375 Jun, [place] [address] [place] [id number] [place] [address] 98765- 6719 May, Lumbago with sciatica, left side M54.42 [place] [address] [place] [id number] [place] [address] 85203- 9843 May, [facility] [address] [place] [id number] [place] [address] 68924 -8205 May, Unspecified fall, initial encounter W19.XXXA [place] [address] [place] [id number] [place] [address] 46895- 1720 May, Lumbago with sciatica, right side M54.41 [place] [address] [place] [id number] [place] [address] 07271- 1388 May, [place] [address] [place] [id number] [place] [address] 26307- 8090 May, Bloating R14.0 and Right hip pain M25.551 [place] [address] [place] [id number] [place] [address] 07006- 2426 Apr, [place] [address] [place] [id number] [place] [address] 13778- 8412 Apr, Lumbago with sciatica, left side M54.42 [place] [address] [place] [id number] [place] [address] 59022- 3248 Mar, [facility] [address] [place] [id number] [place] [address] 44690 -6265 Mar, Lumbago with sciatica, right side M54.41 [facility] [place] [address] 66234 -3248 Mar, Abdominal distension R14.0 [place] [address] 04005- 0880 Mar, Periumbilical abdominal pain R10.33 and Diarrhea, unspecified type R19.7 [facility] [place] [address] 15162 -2421 February, Seasonal allergic rhinitis, unspecified allergic rhinitis trigger J30.2 ; Acute middle ear effusion, bilateral H65.193 and Lumbago with sciatica, right side M54.41 [place] [address] 36327- 9191 February, Routine gynecological examination Z01.419 [place] [address] 31435- 7613 Jan, [place] [address] 01782- 4183 Jan, Atrial fibrillation, unspecified type I48.91 [facility] [place] [address] 48323 -2297 Jan, Lumbago with sciatica, right side M54.41 and Wound, open, toe, initial encounter S91.109A [place] [address] [id number] Jan, [facility] [place] [address] 07713 -3290 Jan, Acute bilateral low back pain without sciatica M54.5 [place] [address] 58236- 4848 Dec, Congestive heart failure, unspecified congestive heart failure chronicity, unspecified congestive heart failure type I50.9 [place] [address] [id number] [address] 1758 Dec, [facility] [address] [place] [id number] [place] [address] 80118- 8823 Dec, Thrush, oral B37.0 and Lumbago with sciatica, right side M54.41 [facility] [address] [place] [id number] [place] [address] 35550- 8438 Dec, [facility] [address] [place] [id number] [place] [address] 28943- 7564 Nov, [facility] [address] [place] [id number] [place] [address] 33116- 3787 Nov, [facility] [address] [place] [id number] [place] [address] 75371- 1452 Oct, Polysubstance (excluding opioids) dependence F19.20 ; Other chronic pain G89.29 and Lumbago with sciatica, right side M54.41 [facility] [address] [place] [id number] [place] [address] 43412- 3262 Oct, [facility] [address] [place] [id number] [place] [address] 17337- 5364 Aug, Lumbago with sciatica, right side M54.41 ; Other chronic pain G89.29 and Anxiety F41.9 [facility] [address] [place] [id number] [place] [address] 62314- 3668 Aug, [facility] [address] [place] [id number] [place] [address] 15527- 2278 Aug, [facility] [address] [place] [id number] [place] [address] 74177- 1196 Aug, [facility] [address] [place] [id number] [place] [address] 40251- 5751 Aug, [facility] [address] [place] [id number] [place] [address] 89327- 8460 Aug, [facility] [address] [address]- 6111 Aug, [facility] [address] [place] [id number] [place] [address] 74351- 2258 Jul, Unspecified mood [affective] disorder F39 and Seizure disorder G40.909 [facility] [address] [place] [id number] [place] [address] 22834- 2088 Jul, [facility] [address] [place] [id number] [place] [address] 93556- 2484 Jul, [facility] [address] [place] [id number] [place] [address] 59502- 3968 Jul, Unspecified mood [affective] disorder F39 and Seizure disorder G40.909 [facility] [address] [place] [id number] [place] [address] 88153- 0499 Jul, Polysubstance (excluding opioids) dependence F19.20 ; COPD ( chronic obstructive pulmonary disease) with acute bronchitis J44.0 ; Congestive heart failure, unspecified congestive heart failure chronicity, unspecified congestive heart failure type I50.9 ; Radiculopathy of lumbosacral region M54.17 and Radiculopathy, thoracic region M54.14 [facility] [address] [place] [id number] [place] [address] 79799- 5881 Jun, Lumbago M54.5 [facility] [address] [place] [id number] [place] [address] 26002- 4169 May, [facility] [address] [place] [id number] [place] [address] 49712- 1217 May, [facility] [address] [place] [id number] [place] [address] 07075- 5747 May, [facility] [address] [place] [id number] [place] [address] 18672- 0470 Apr, COPD (chronic obstructive pulmonary disease) with acute bronchitis J44.0 [facility] [address] [place] [id number] [place] [address] 59878- 1776 Apr, Major depressive disorder, recurrent episode, severe F33.2 and Polysubstance (excluding opioids) dependence F19.20 [facility] [address] [place] [id number] [place] [address] 66278- 1156 Mar, Major depressive disorder, recurrent episode, severe F33.2 and Polysubstance (excluding opioids) dependence F19.20 [facility] [address] [place] [id number] [place] [address] 04574- 9535 Mar, Major depressive disorder, recurrent episode, severe F33.2 and Polysubstance (excluding opioids) dependence F19.20 [facility] [address] [place] [id number] [place] [address] 71013- 1287 Mar, Major depressive disorder, recurrent episode, severe F33.2 and Polysubstance (excluding opioids) dependence F19.20 [place] [address] [place] [id number] [place] [address] 44971- 1882 February, Major depressive disorder, recurrent episode, severe F33.2 and Polysubstance (excluding opioids) dependence F19.20 [place] [address] [place] [id number] [place] [address] 95265- 1755 February, [place] [address] [place] [id number] [place] [address] 23385- 8952 February, COPD (chronic obstructive pulmonary disease) with acute bronchitis J44.0 [facility] [address] [place] [id number] [place] [address] 70845 -8039 February, Sore throat J02.9 and Bronchitis J40 [facility] [address] [place] [id number] [place] [address] 24229- 8315 Jan, COPD (chronic obstructive pulmonary disease) with acute bronchitis J44.0 [facility] [address] [place] [id number] [place] [address] 61500- 5310 Jan, COPD (chronic obstructive pulmonary disease) with acute bronchitis J44.0 [facility] [address] [place] [id number] [address]- 2340 14 Jan, 2016 [facility] [address] 71602- 2009 Dec, Gastritis K29.70 ; Constipation K59.00 and Lumbago M54.5 [facility] [address] 92640- 2530 Dec, COPD (chronic obstructive pulmonary disease) with acute bronchitis J44.0 [facility] [address] 51691- 1397 18 Nov, 2015 Major depressive disorder, recurrent episode, severe F33.2 and Polysubstance (excluding opioids) dependence F19.20 [facility] [address] [place] [id number] [place] [address] 10170 -4747 Oct, Oral thrush B37.0 and Drug abuse F19.10 [facility] [address] 55766- 4836 Oct, [facility] [address] 67341- 3509 Sep, COPD (chronic obstructive pulmonary disease) with acute bronchitis J44.0 ; Esophagitis, reflux K21.0 ; Seizure disorder G40.909 ; Primary insomnia F51.01 ; Edema, due to unspecified malnutrition type, unspecified type R60.9 ; Arthritis M19.90 and Thrush B37.0 [facility] [address] [place] [id number] [place] [address] 24381- 2819 Aug, [facility] [address] 88753- 2813 Aug, [place] [address] 66692- 0132 Aug, [facility] [address] [place] [id number] [place] [address] 44393- 8100 Jul, [facility] [address] 91255323- 3816 Jun, [facility] [address] [place] [address] 47197- 1728 Jun, Counseling on substance use and abuse V65.42 and Obstructive chronic bronchitis, with (acute) exacerbation 491.21 [facility] [address] [place] [id number] [place] [address] 29025- 6429 May, [facility] [address] [place] [id number] [place] [address] 31394- 0691 Apr, [facility] [address] [place] [id number] [place] [address] 31229- 5547 Apr, Abdominal pain 789.00 and Back pain 724.5 [place] [address] [place] [id number] [place] [address] 27345- 6416 Mar, Back pain 724.5 and Illicit drug use 305.90 [place] [id number] [place] [address] 71227- 9691 February, Onychomycosis 110.1 [place] [id number] [place] [address] 89302- 9735 February, Breast cancer screening V76.10 [place] [address] [place] [id number] [place] [address] 97904- 7912 February, [place] [address] [place] [id number] [place] [address] 64612- 7739 February, [place] [address] [place] [id number] [place] [address] 48454- 9138 February, Cough 786.2 ; Obstructive chronic bronchitis, with (acute) exacerbation 491.21 ; Vomiting 787.03 ; 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 and Gastritis 535.50 [place] [address] [place] [address] [id number]- 5854 Jan, [place] [address] [place] [id number] [place] [address] 39460- 0318 Jan, [facility] [address] [id number] [place] [address]- 8667 24 Dec, 2014 [facility] [place] [facility] [address] [id number] [place] [address]- 8554 20 Dec, 2014 [facility] [place] [facility] [address] [id number] [place] [address]- 9171 20 Dec, 2014 [facility] [place] [facility] [address] [id number] [place] [address]- 2404 13 Dec, 2014 [facility] [place] [facility] [address] [id number] [place] [address]- 1430 13 Dec, 2014 [facility] [place] [facility] [address] [id number] [place] [address]- 0060 12 Dec, 2014 [facility] [place] [facility] [address] [id number] [place] [address]- 0531 Dec, [facility] [place] [facility] [address] [id number] [place] [address]- 2997 Dec, [facility] [place] [facility] [address] [id number] [place] [address]- 2938 Dec, [facility] [place] [facility] [address] [id number] [place] [address]- 9908 Sep, [facility] [place] [facility] [address] [id number] [place] [address]- 4772 Sep, [facility] [place] [facility] [address] [id number] [place] [address]- 5669 Sep, [facility] [place] [facility] [address] [id number] [place] [address]- 9476 Sep, [facility] [place] [facility] [address] [id number] [place] [address]- 3464 Sep, [facility] [place] [facility] [address] [id number] [place] 0964 Sep, [facility] [place] [facility] [address] [id number] [place] [address]- 7341 Sep, [facility] [place] [facility] [address] [id number] [place] [address]- 2922 Sep, [facility] [place] [facility] [address] [id number] [place] [address]- 3144 Sep, [facility] [place] [facility] [address] [id number] [place] 3679 Sep, [facility] [place] [facility] [address] [id number] [place] [address]- 3057 Aug, [facility] [place] [facility] [address] [id number] [place] [address]- 4953 Aug, [facility] [place] [facility] [address] [id number] [place] [address]- 9525 Aug, [facility] [place] [facility] [address] [id number] [place] [address]- 6820 Aug, [facility] [place] [facility] [address] [id number] [place] [address]- 4991 Jul, [facility] [place] [facility] [address] [id number] [place] [address]- 4838 Jul, [facility] [place] [facility] [address] [id number] [place] [address]- 3056 Jun, [facility] [place] [facility] [address] [id number] [place] [address]- 5234 Jun, [facility] [place] [facility] [address] [id number] [place] [address]- 6341 May, [facility] [place] [facility] [address] [id number] [place] [address]- 5473 May, [facility] [place] [facility] [address] [id number] [place] [address]- 7930 May, [facility] [place] [facility] [address] [id number] [place] [address]- 7116 May, [facility] [place] [facility] [address] [id number] [place] [address]- 2546 May, [facility] [address] [id number] [place] [address]- 2036 May, [facility] [address] [id number] [place] [address]- 2546 Apr, [facility] [address] [id number] [place] [address]- 2546 Apr, [facility] [address] [id number] [place] [address]- 2546 Apr, [facility] [address] [id number] [place] [address]- 2546 Apr, [facility] [address] [id number] [place] [address]- 5348 February, [facility] [address] [id number] [place] [address]- 7359 February, [facility] [address] [id number] [place] [address]- 9209 Oct, [facility] [address] [id number] [place] [address]- 6268 Oct, [facility] [address] [id number] [place] [address]- 2285 Oct, [facility] [address] [id number] [place] [address]- 2546 Oct, [facility] [address] [id number] [place] [address]- 2546 Sep, [facility] [place] [facility] [address] [id number] [place] [address]- 2546 Sep, [facility] [address] [id number] [place] [address]- 2546 Sep, [facility] [address] [id number] [place] [address]- 0433 Sep, [facility] [place] [facility] [address] [id number] [place] [address]- 6022 Aug, [facility] [place] [facility] [address] [id number] [place] [address]- 8579 Aug, [facility] [place] [facility] [address] [id number] [place] 3282 Aug, [facility] [place] [facility] [address] [id number] [place] [address]- 4486 Aug, [facility] [place] [facility] [address] [id number] [place] [address]- 2905 Jul, [facility] [place] [facility] [address] [id number] [place] [address]- 7390 Jul, [facility] [place] [facility] [address] [id number] [place] [address]- 0879 Jul, [facility] [place] [facility] [address] [id number], [place] [address]- 9114 Jul, [facility] [place] [facility] [address] [id number] [place] [address]- 6742 Jul, [facility] [place] [facility] [address] [id number], [place] [address]- 0463 Jul, [facility] [place] [facility] [address] [id number], [place] [address]- 7346 Jul, [facility] [place] [facility] [address] [id number], [place] [address]- 3377 Jul, [facility] [place] [facility] [address] [id number] [place] [address]- 7642 Jul, [facility] [place] [facility] [address] [id number], [place] [address]- 1388 Jul, [facility] [place] [facility] [address] [id number] 3171 Jun, [facility] [place] [facility] [address] [id number], [place] [address]- 1885 May, [facility] [id number] [address] Apr, [facility] [id number] [address] Apr, [facility] [id number], [place] [address] Apr, [facility] [address] [id number], [place] [address] Mar, [facility] [id number] [place] [address] Mar, [facility] [address] [id number], [place] [address] Mar, [facility] [id number] [place] [address] Mar, [facility] [id number], [place] [address] Mar, [facility] [id number], [place] [address] Sep, [facility] [id number], [place] [address] February, [facility] [id number], [place] [address] Jan, IMMUNIZATIONS No Known Immunizations SOCIAL HISTORY Never Assessed REASON FOR VISIT Incident PLAN OF CARE VITAL SIGNS MEDICATIONS Unknown [...] bleeding 2015 Hospitalization History A fib with [facility] 02/06/17 Hospitalization History Altered mental status, lethargy-[facility] 07/10/17 Hospitalization History Chest pain-[facility] 08/05/17 Hospitalization History [facility] 10/2017
--- OUTSIDE RECORDS SUMMARY | 2018-05-17 17:43 | XMS REPORT ---
Author Author FRANCHESKA HEADLEY [facility] Address [address] [place] [address] Care Team Providers Care Shredder/Granulator Operator Name Role Phone FRANCHESKA HEADLEY Unavailable PROBLEMS Type Condition ICD9-CM Code QCK58-IA Code Onset Dates Condition Status SNOMED Code Problem Anxiety F41.9 Active 82876159 Problem Seasonal allergic rhinitis, unspecified allergic rhinitis trigger J30.2 Active 702046037 Problem Other chronic pain G89.29 Active 11411331 Problem Chronic fatigue R53.82 Active 69425808 Problem Seizure disorder G40.909 Active 556572706 Problem Unsteady gait R26.81 Active 75478787 Problem Infection of right eye H44.001 Active [id number] Problem Lumbago with sciatica, left side M54.42 Active 492068156 Problem Chronic pain syndrome G89.4 Active 317184021 Problem Fibromyalgia M79.7 Active 059120333 Problem Atrial fibrillation, unspecified type I48.91 Active 28036317 Problem Esophagitis, reflux K21.0 Active 624110741 Problem Primary insomnia F51.01 Active 938079079 Problem Edema, due to unspecified malnutrition type, unspecified type R60.9 Active 400716474 Problem Polysubstance (excluding opioids) dependence F19.20 Active 84671621 Problem Congestive heart failure, unspecified congestive heart failure chronicity, unspecified congestive heart failure type I50.9 Active 50909369 Problem COPD (chronic obstructive pulmonary disease) with acute bronchitis J44.0 Active 800436694248533 Problem Unspecified mood [affective] disorder F39 Active 019849604 Problem Major depressive disorder, recurrent episode, severe F33.2 Active 492071693114 Problem Lumbago with sciatica, right side M54.41 Active 591282545 ALLERGIES Substance Reaction Event Type Date Status [...] Jul, Active ENCOUNTERS Encounter Location Date Diagnosis [place] [address] [address]323 February, [address] [address]- [address] February, Primary insomnia F51.01 ; Atrial fibrillation, unspecified type I48.91 ; Unsteady gait R26.81 ; General weakness R53.1 ; Chronic fatigue R53.82 ; Hypokalemia E87.6 and Other chronic pain G89.[address] [address]- 0674 February, [address] 30[address]- 4340 Jan, Lumbago with sciatica, right side M54.41 [place] [id number] [place] [address] 58246- 7951 Jan, Anxiety F41.9 ; Chronic pain syndrome G89.4 ; Folliculitis L73.9 and Fibromyalgia M79.7 [place] [address] [place] [id number] [place] [address] 47148- 2069 Jan, Lumbago with sciatica, right side M54.41 [place] [address] [place] [id number] [place] [address] 20411- 7773 Dec, [address] 20271- 2875 Nov, Lumbago with sciatica, right side M54.41 [place] [address] [place] [id number] [place] [address] 08894- 3710 Nov, [place] [address] [place] [id number] [place] [address] 98031- 4399 Nov, Unspecified mood [affective] disorder F39 ; Hypokalemia E87.6 and Anemia, unspecified type D64.9 [place] [address] [place] [id number] [place] [address] 21352- 6837 Nov, [place] [address] 33437- 5614 Oct, Lumbago with sciatica, right side M54.41 [facility] [place] [address] [place] [id number] [place] [address] 24326 -5946 Aug, Congestive heart failure, unspecified congestive heart failure chronicity, unspecified congestive heart failure type I50.9 and Peripheral edema R60.9 [place] [address] [place] [id number] [place] [address] 46089- 3919 Aug, Polysubstance (excluding opioids) dependence F19.20 and Lumbago with sciatica, left side M54.42 [place] [address] [place] [id number] [place] [address] 42782- 9098 17 Aug, 2017 [facility] [place] [address] [place] [id number] [place] [address] 92760 -1111 Aug, Infection of right eye H44.001 [place] [address] [place] [id number] [place] [address] 16044- 3981 14 Aug, 2017 Congestive heart failure, unspecified congestive heart failure chronicity, unspecified congestive heart failure type I50.9 and Other chronic pain G89.29 [place] [address] [place] [id number] [place] [address] 10418- 2248 09 Aug, 2017 Lumbago with sciatica, right side M54.41 [place] [address] [place] [id number] [place] [address] 88094- 1379 09 Aug, 2017 Lumbago with sciatica, right side M54.41 [place] [address] [id number] [address] 46[address] Aug, [facility] [address] [place] [address] 40627- 6958 Jul, [facility] [address] [place] [id number] [place] [address] 51321- 3980 Jul, COPD (chronic obstructive pulmonary disease) with acute bronchitis J44.0 ; Atrial fibrillation, unspecified type I48.91 ; Polysubstance (excluding opioids) dependence F19.20 ; Congestive heart failure, unspecified congestive heart failure chronicity, unspecified congestive heart failure type I50.9 and Lumbago with sciatica, right side M54.41 [facility] [address] [place] [id number] [place] [address] [id number] Jul, [facility] [address] [place] [id number] [place] [address] 21462- 7817 Jul, Seizure disorder G40.909 [facility] [address] [place] [id number] [place] [address] 32124- 1562 Jul, Lumbago with sciatica, right side M54.41 [facility] [address] [place] [address] 75937- 0514 Jul, [facility] [address] [place] [address] 92745- 0596 Jun, Congestive heart failure, unspecified congestive heart failure chronicity, unspecified congestive heart failure type I50.9 ; Lumbago with sciatica, right side M54.41 and Other chronic pain G89.29 [facility] [address] [address]- 9104 Jun, [facility] [address] [place] [id number] [place] [address] 69019- 6696 Jun, [facility] [address] [place] [id number] [place] [address] 11679- 6615 May, Lumbago with sciatica, left side M54.42 [facility] [address] [place] [id number] [place] [address] 19460- 2371 May, [facility] [place] [address] [place] [id number] [place] [address] 36324 -4559 May, Unspecified fall, initial encounter W19.XXXA [place] [address] [place] [id number] [place] [address] 01335- 8203 May, Lumbago with sciatica, right side M54.41 [place] [address] [place] [id number] [place] [address] 97970- 3594 May, [place] [address] 21061- 7922 May, Bloating R14.0 and Right hip pain M25.551 [place] [address] [place] [id number] [place] [address] 91077- 1402 Apr, [place] [address] [place] [id number] [place] [address] 75564- 5386 Apr, Lumbago with sciatica, left side M54.42 [place] [address] [place] [id number] [place] [address] 39723- 1896 Mar, [facility] [place] [address] [place] [id number] [place] [address] 30701 -8561 Mar, Lumbago with sciatica, right side M54.41 [facility] [place] [address] [place] [id number] [place] [address] 28891 -5419 Mar, Abdominal distension R14.0 [place] [address] [place] [id number] [place] [address] 00727- 2372 Mar, Periumbilical abdominal pain R10.33 and Diarrhea, unspecified type R19.7 [facility] [place] [address] [place] [id number] [place] [address] 76354 -2926 February, Seasonal allergic rhinitis, unspecified allergic rhinitis trigger J30.2 ; Acute middle ear effusion, bilateral H65.193 and Lumbago with sciatica, right side M54.41 [facility] [address] [place] [id number] [place] [address] 18387- 8922 February, Routine gynecological examination Z01.419 [place] [address] [place] [id number] [place] [address] 28537- 4229 Jan, [place] [address] [place] [id number] [place] [address] 75961- 2150 Jan, Atrial fibrillation, unspecified type I48.91 [facility] [address] 60000 -5802 Jan, Lumbago with sciatica, right side M54.41 and Wound, open, toe, initial encounter S91.109A [place] [address] [place] [id number] [place] [address] [id number] Jan, [facility] [address] 98934 -7903 Jan, Acute bilateral low back pain without sciatica M54.5 [place] [address] [place] [id number] [place] [address] 00912- 6244 Dec, Congestive heart failure, unspecified congestive heart failure chronicity, unspecified congestive heart failure type I50.9 [place] [address] [place] [id number] [place] [address] 24999- 8556 Dec, [place] [address] 45539- 9349 Dec, Thrush, oral B37.0 and Lumbago with sciatica, right side M54.41 [place] [address] [place] [id number] [place] [address] 64791- 1282 Dec, [place] [address] 25155- 7068 Nov, [place] [address] [place] [id number] [place] [address] 76358- 3823 Nov, [place] [address] [place] [id number] [place] [address] 25696- 5671 Oct, Polysubstance (excluding opioids) dependence F19.20 ; Other chronic pain G89.29 and Lumbago with sciatica, right side M54.41 [facility] [address] [place] [id number] [place] [address] 32439- 2606 Oct, [facility] [address] 06282- 1607 Aug, Lumbago with sciatica, right side M54.41 ; Other chronic pain G89.29 and Anxiety F41.9 [facility] [address] [place] [id number] [place] [address] 33536- 2968 Aug, [facility] [address] [place] [id number] [place] [address] 78628- 2824 Aug, [facility] [address] [place] [id number] [place] [address] 77220- 5464 Aug, [facility] [address] [place] [id number] [place] [address] 13175- 7029 Aug, [facility] [address] [place] [id number] [place] [address] 33728- 2039 Aug, [facility] [address] [place] [id number] [place] [address] 04505- 8445 Aug, [facility] [address] [place] [id number] [place] [address] 38203- 7333 Jul, Unspecified mood [affective] disorder F39 and Seizure disorder G40.909 [facility] [address] [place] [id number] [place] [address] 83976- 1046 Jul, [facility] [address] [place] [id number] [place] [address] 09738- 8696 Jul, [facility] [address] [place] [address] 59930- 9729 Jul, Unspecified mood [affective] disorder F39 and Seizure disorder G40.909 [facility] [address] [place] [address] 48543- 3967 Jul, Polysubstance (excluding opioids) dependence F19.20 ; COPD ( chronic obstructive pulmonary disease) with acute bronchitis J44.0 ; Congestive heart failure, unspecified congestive heart failure chronicity, unspecified congestive heart failure type I50.9 ; Radiculopathy of lumbosacral region M54.17 and Radiculopathy, thoracic region M54.14 [facility] [address] [place] [id number] [place] [address] 28376- 4298 Jun, Lumbago M54.5 [place] [address] [place] [id number] [place] [address] 51222- 7087 May, [place] [address] [place] [id number] [place] [address] 68061- 7231 May, [place] [address] [place] [id number] [place] [address] 94302- 0985 May, [place] [address] [place] [id number] [place] [address] 78386- 7699 Apr, COPD (chronic obstructive pulmonary disease) with acute bronchitis J44.0 [facility] [address] [place] [id number] [place] [address] 15152- 5577 Apr, Major depressive disorder, recurrent episode, severe F33.2 and Polysubstance (excluding opioids) dependence F19.20 [facility] [address] [place] [id number] [place] [address] 15890- 2896 Mar, Major depressive disorder, recurrent episode, severe F33.2 and Polysubstance (excluding opioids) dependence F19.20 [place] [address] [place] [id number] [place] [address] 29833- 0536 Mar, Major depressive disorder, recurrent episode, severe F33.2 and Polysubstance (excluding opioids) dependence F19.20 [place] [address] [place] [id number] [place] [address] 35101- 8867 Mar, Major depressive disorder, recurrent episode, severe F33.2 and Polysubstance (excluding opioids) dependence F19.20 [place] [address] [place] [id number] [place] [address] 66787- 5095 February, Major depressive disorder, recurrent episode, severe F33.2 and Polysubstance (excluding opioids) dependence F19.[address] 68192- 9009 February, [place] [address] 31213- 7620 February, COPD (chronic obstructive pulmonary disease) with acute bronchitis J44.0 [facility] [address] 53996 -3505 February, Sore throat J02.9 and Bronchitis J40 [address] 38692- 8957 Jan, COPD (chronic obstructive pulmonary disease) with acute bronchitis J44.[address] 70221- 2655 Jan, COPD (chronic obstructive pulmonary disease) with acute bronchitis J44.0 [place] [address] 19707- 3918 Jan, [address] 43312- 8614 Dec, Gastritis K29.70 ; Constipation K59.00 and Lumbago M54.[address] 07233- 1622 Dec, COPD (chronic obstructive pulmonary disease) with acute bronchitis J44.0 [place] [address] [place] [id number] [place] [address] 04171- 0655 Nov, Major depressive disorder, recurrent episode, severe F33.2 and Polysubstance (excluding opioids) dependence F19.20 [facility] [address] [place] [id number] [place] [address] 65885 -9880 Oct, Oral thrush B37.0 and Drug abuse F19.10 [facility] [address] [place] [id number] [place] [address] 34337- 4882 Oct, [facility] [address] [place] [id number] [place] [address] 31256- 6470 Sep, COPD (chronic obstructive pulmonary disease) with acute bronchitis J44.0 ; Esophagitis, reflux K21.0 ; Seizure disorder G40.909 ; Primary insomnia F51.01 ; Edema, due to unspecified malnutrition type, unspecified type R60.9 ; Arthritis M19.90 and Thrush B37.0 [facility] [address] [place] [id number] [place] [address] 40543- 4914 Aug, [facility] [address] 16527- 4873 Aug, [facility] [address] [place] [id number] [place] [address] 30569- 2239 Aug, [facility] [address] [place] [id number] [place] [address] 82044- 3579 Jul, [facility] [address] [place] [id number] [place] [address] 25192- 8536 Jun, [facility] [address] [place] [id number] [place] [address] 86433- 7873 Jun, Counseling on substance use and abuse V65.42 and Obstructive chronic bronchitis, with (acute) exacerbation 491.21 [facility] [address] [place] [id number] [place] [address] 71777- 5951 May, [facility] [address] 97228- 8088 Apr, [facility] [address] [place] [id number] [place] [address] 86879- 4322 Apr, Abdominal pain 789.00 and Back pain 724.5 [place] [address] [address]- 7705 Mar, Back pain 724.5 and Illicit drug use 305.90 [facility] [address] [place] [id number] [address]- 1355 February, Onychomycosis 110.1 [facility] [address] [place] [id number] [place] [address] 90122- 2347 February, Breast cancer screening V76.10 [facility] [address] [place] [id number] [place] [address] 93545- 8134 February, [facility] [address] [place] [id number] [place] [address] 003115- 7106 February, [facility] [address] [address]- 8556 February, Cough 786.2 ; Obstructive chronic bronchitis, with (acute) exacerbation 491.21 ; Vomiting 787.03 ; 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 and Gastritis 535.50 [facility] [address] [address]- 4113 Jan, [facility] [address] [place] [id number] [place] [address] 41889- 2153 Jan, [facility] [address] [address]- 9961 24 Dec, 2014 [facility] [address] [address]- 5546 Dec, [facility] [address] [address]- 3311 Dec, [facility] [address] [place] [id number] [place] [address] 37598- 2944 Dec, [facility] [address] [address]- 2831 13 Dec, 2014 [facility] [address] [place] [address] 17754- 7430 Dec, [facility] [place] [facility] [address] [id number] [place] [address]- 4583 Dec, [facility] [place] [facility] [address] [id number] [place] [address]- 4945 Dec, [facility] [place] [facility] [address] [id number] [place] [address]- 2523 Dec, [facility] [place] [facility] [address] [id number] [place] [address]- 9672 Sep, [facility] [place] [facility] [address] [id number] [place] [address]- 4928 Sep, [facility] [place] [facility] [address] [id number] [place] [address]- 3999 Sep, [facility] [place] [facility] [address] [id number] [place] [address]- 2117 Sep, [facility] [place] [facility] [address] [id number] [place] [address]- 7334 Sep, [facility] [place] [facility] [address] [id number] [place] [address]- 7537 Sep, [facility] [place] [facility] [address] [id number] [place] [address]- 0654 Sep, [facility] [place] [facility] [address] [id number] [place] [address]- 5072 Sep, [facility] [place] [facility] [address] [id number] [address]- 7248 Sep, [facility] [place] [facility] [address] [id number] [place] [address]- 4457 Sep, [facility] [place] [facility] [address] [id number] [place] [address]- 1856 Aug, [facility] [place] [facility] [address] [id number] [place] [address]- 9324 Aug, [facility] [place] [facility] [address] [id number] [place] [address]- 1555 Aug, [facility] [place] [facility] [address] [id number] [place] [address]- 4038 Aug, [facility] [place] [facility] [address] [id number] [place] [address]- 8306 Jul, [facility] [place] [facility] [address] [id number] [place] [address]- 5654 Jul, [facility] [place] [facility] [address] [id number] [place] [address]- 5523 Jun, [facility] [place] [facility] [address] [id number] [place] [address]- 4193 Jun, [facility] [place] [facility] [address] [id number] [place] [address]- 6243 May, [facility] [place] [facility] [address] [id number] [place] [address]- 1037 May, [facility] [place] [facility] [address] [id number] [place] [address]- 1985 May, [facility] [place] [facility] [address] [id number] [place] [address]- 1477 May, [facility] [place] [facility] [address] [id number] [place] [address]- 0148 May, [facility] [place] [facility] [address] [id number] [place] [address]- 5995 May, [facility] [place] [facility] [address] [id number] [place] [address]- 5449 Apr, [facility] [place] [facility] [address] [id number] [place] [address]- 3002 Apr, [facility] [place] [facility] [address] [id number] [place] [address]- 9604 Apr, [facility] [place] [facility] [address] [id number] [place] [address]- 9382 Apr, [facility] [place] [facility] [address] [id number] [place] [address]- 4281 February, [facility] [address] [id number] [place] [address]- 8401 February, [facility] [address] [id number] [place] [address]- 7458 Oct, [facility] [address] [id number] [place] [address]- 3405 Oct, [facility] [address] [id number] [place] [address]- 3902 Oct, [facility] [address] [id number] [place] [address]- 9298 Oct, [facility] [address] [id number] [place] [address]- 8567 Sep, [facility] [address] [id number] [place] [address]- 5313 Sep, [facility] [address] [id number] [place] [address]- 8984 Sep, [facility] [address] [id number] [place] [address]- 9013 Sep, [facility] [address] [id number] [place] [address]- 3362 Aug, [facility] [place] [facility] [address] [id number] [address]- 4312 Aug, [facility] [place] [facility] [address] [id number] [place] [address]- 2547 Aug, [facility] [place] [facility] [address] [id number] [place] [address] Aug, [facility] [place] [facility] [address] [id number] [place] [address] Jul, [facility] [place] [facility] [address] [id number] [address] Jul, [facility] [place] [facility] [address] [id number] [place] [address] Jul, [facility] [place] [facility] [address] [id number] [place] [address] Jul, [facility] [place] [facility] [address] [id number] [place] [address] Jul, [facility] [place] [facility] [address] [id number] [place] [address] Jul, [facility] [place] [facility] [address] [id number] [place] [address] Jul, [facility] [place] [facility] [address] [id number] [place] [address] Jul, [facility] [place] [facility] [address] [id number] [place] [address] Jul, [facility] [place] [facility] [address] [id number] [place] [address] Jul, [facility] [place] [facility] [address] [id number] [place] [address] Jun, [facility] [place] [facility] [address] [id number] [place] [address] May, [facility] [place] [facility] [address] [id number] [place] [address] Apr, [facility] [place] [facility] [address] [id number] [place] [address] Apr, [facility] [place] [facility] [address] [id number] [place] [address] Apr, [facility] [place] [facility] [address] [id number] [place] [address] Mar, [facility] [place] [facility] [address] [id number] [place] [address] Mar, [facility] [place] [facility] [address] [id number] [place] [address] Mar, [facility] [address] [facility] [id number] [address] Mar, [facility] [address] [id number] [address] Mar, [facility] [address] [id number] [address] Sep, [facility] [address] [id number] [id number] February, [facility] [address] [id number] Jan, IMMUNIZATIONS Vaccine Route Administration Date Status TORADOL (IM) 60 MG/2ML (UP TO 15 MG) IM Intramuscular Jul 26, 2017 Administered SOCIAL HISTORY Never Assessed REASON FOR VISIT Injection PLAN OF CARE VITAL SIGNS MEDICATIONS Unknown Medications RESULTS No Results PROCEDURES Procedure Date Ordered Result Body Site TORADOL (IM) 60 MG/2ML (UP TO 15 MG) Jul 26, 2017 THER/PROPH/DIAG INJ, SC/IM Jul 26, 2017 INSTRUCTIONS MEDICATIONS ADMINISTERED No Known Medications [...] bleeding 2016 Hospitalization History A fib with [facility] 02/06/17 Hospitalization History Altered mental status, lethargy-[facility] 07/10/17 Hospitalization History Chest pain-[facility] 08/05/17 Hospitalization History [facility] 10/2017 Hospitalization History Low potassium, A fib 01/2018
--- OUTSIDE RECORDS SUMMARY | 2018-05-17 17:45 | XMS REPORT ---
Author Author FRANCHESKA HEADLEY Organization [facility] Address [address] [place] [address] Care Team Providers Care Tool Smith Name Role Phone FRANCHESKA HEADLEY Unavailable PROBLEMS Type Condition ICD9-CM Code QFT36-CO Code Onset Dates Condition Status SNOMED Code Problem Unspecified mood [affective] disorder F39 Active 027996326 Problem Anxiety F41.9 Active 32842872 Problem Lumbago with sciatica, right side M54.41 Active 719253525 Problem Chronic pain syndrome G89.4 Active 742274493 Problem Fibromyalgia M79.7 Active 675170075 Problem Seasonal allergic rhinitis, unspecified allergic rhinitis trigger J30.2 Active 760550639 Problem Other chronic pain G89.29 Active 97396782 Problem Infection of right eye H44.001 Active [id number] Problem Lumbago with sciatica, left side M54.42 Active 052350915 Problem Primary insomnia F51.01 Active 480436663 Problem Edema, due to unspecified malnutrition type, unspecified type R60.9 Active 496376538 Problem Seizure disorder G40.909 Active 501744770 Problem COPD (chronic obstructive pulmonary disease) with acute bronchitis J44.0 Active 827004059752389 Problem Polysubstance (excluding opioids) dependence F19.20 Active 99678574 Problem Atrial fibrillation, unspecified type I48.91 Active 59538831 Problem Major depressive disorder, recurrent episode, severe F33.2 Active 156554249055 Problem Esophagitis, reflux K21.0 Active 820299809 Problem Congestive heart failure, unspecified congestive heart failure chronicity, unspecified congestive heart failure type I50.9 Active 29839727 ALLERGIES No Information ENCOUNTERS Encounter Location Date Diagnosis [facility] [address] [facility] [id number] [address] February, [facility] [address] [facility] [id number] [place] [address] Jan, Anxiety F41.9 ; Chronic pain syndrome G89.4 ; Folliculitis L73.9 and Fibromyalgia M79.7 [place] [address] [address]- [address] Jan, Lumbago with sciatica, right side M54.41 [place] [address] 78628- 0032 Dec, [place] [address] 28672- 7955 Nov, Lumbago with sciatica, right side M54.41 [place] [address] 65816- 5901 Nov, [place] [address] 41036- 3458 Nov, Unspecified mood [affective] disorder F39 ; Hypokalemia E87.6 and Anemia, unspecified type D64.9 [place] [address] 48012- 8449 Nov, [place] [address] 91888- 1329 Oct, Lumbago with sciatica, right side M54.41 [facility] [place] [address] 6[address] -39[address] Aug, Congestive heart failure, unspecified congestive heart failure chronicity, unspecified congestive heart failure type I50.9 and Peripheral edema R60.9 [place] [address] 18068- 8323 Aug, Polysubstance (excluding opioids) dependence F19.20 and Lumbago with sciatica, left side M54.42 [place] [address] 69169- 6761 Aug, [facility] [address] 16[address] -5419 Aug, Infection of right eye H44.001 [place] [address] [id number] [place] [address] 01133- 9490 Aug, Congestive heart failure, unspecified congestive heart failure chronicity, unspecified congestive heart failure type I50.9 and Other chronic pain G89.29 [place] [address] [address] [place] [id number] [place] [address] 98885- 4641 Aug, Lumbago with sciatica, right side M54.41 [place] [address] [address] [place] [id number] [place] [address] 45897- 4107 Aug, Lumbago with sciatica, right side M54.41 [place] [address] [place] [id number] [place] [address] 96151- 8549 Aug, [place] [address] [place] [id number] [place] [address] 78749- 8467 Jul, [place] [address] [place] [id number] [place] [address] 54091- 0709 Jul, COPD (chronic obstructive pulmonary disease) with acute bronchitis J44.0 ; Atrial fibrillation, unspecified type I48.91 ; Polysubstance (excluding opioids) dependence F19.20 ; Congestive heart failure, unspecified congestive heart failure chronicity, unspecified congestive heart failure type I50.9 and Lumbago with sciatica, right side M54.41 [facility] [address] [place] [id number] [place] [address] [id number] Jul, [place] [address] [id number] [place] [address] 29008- 8183 Jul, Seizure disorder G40.909 [place] [address] [address] [place] [id number] [place] [address] 88176- 7797 Jul, Lumbago with sciatica, right side M54.41 [facility] [address] [place] [id number] [place] [address] 58231- 9579 Jul, [place] [address] [address] [place] [id number] [address] 5174 Jun, Congestive heart failure, unspecified congestive heart failure chronicity, unspecified congestive heart failure type I50.9 ; Lumbago with sciatica, right side M54.41 and Other chronic pain G89.29 [place] [address] [address] [place] [id number] [address] 7775 Jun, [place] [address] [place] [id number] [place] [address] 68120- 5637 Jun, [place] [address] [place] [id number] [place] [address] 00472- 9449 May, Lumbago with sciatica, left side M54.42 [place] [address] [address] [place] [id number] [place] [address] 14601- 6534 May, [facility] [place] [address] [place] [id number] [place] [address] 37984 -4191 May, Unspecified fall, initial encounter W19.XXXA [place] [address] [address] [place] [id number] [place] [address] 31757- 5845 May, Lumbago with sciatica, right side M54.41 [place] [address] [address] [place] [id number] [place] [address] 10742- 0329 May, [place] [address] [address] [place] [id number] [place] [address] 37306- 8779 May, Bloating R14.0 and Right hip pain M25.551 [place] [address] [address] [place] [id number] [place] [address] 28411- 9758 Apr, [place] [address] [place] [id number] [place] [address] 51648- 8661 Apr, Lumbago with sciatica, left side M54.42 [place] [address] [address] [place] [id number] [place] [address] 50197- 4834 Mar, [facility] [address] [place] [id number] [place] [address] 63272 -4989 Mar, Lumbago with sciatica, right side M54.41 [facility] [place] [address] 96754 -5936 Mar, Abdominal distension R14.0 [place] [address] 43169- 3515 Mar, Periumbilical abdominal pain R10.33 and Diarrhea, unspecified type R19.7 [facility] [place] [address] 21476 -3923 February, Seasonal allergic rhinitis, unspecified allergic rhinitis trigger J30.2 ; Acute middle ear effusion, bilateral H65.193 and Lumbago with sciatica, right side M54.41 [place] [address] 45694- 0847 February, Routine gynecological examination Z01.419 [place] [address] 64070- 2097 Jan, [place] [address] 70597- 7392 Jan, Atrial fibrillation, unspecified type I48.91 [facility] [place] [address] 66617 -6574 Jan, Lumbago with sciatica, right side M54.41 and Wound, open, toe, initial encounter S91.109A [place] [address] [id number] Jan, [facility] [place] [address] 14208 -7187 Jan, Acute bilateral low back pain without sciatica M54.5 [place] [address] 69897- 0155 Dec, Congestive heart failure, unspecified congestive heart failure chronicity, unspecified congestive heart failure type I50.9 [place] [address] [address] [place] [id number] [address]- 8352 Dec, [facility] [address] [place] [id number] [place] [address] 97834- 6771 Dec, Thrush, oral B37.0 and Lumbago with sciatica, right side M54.41 [facility] [address] [place] [id number] [place] [address] 60184- 2997 Dec, [facility] [address] [place] [id number] [place] [address] 32369- 7640 Nov, [facility] [address] [place] [id number] [place] [address] 59505- 0275 Nov, [facility] [address] [place] [id number] [place] [address] 20899- 0544 Oct, Polysubstance (excluding opioids) dependence F19.20 ; Other chronic pain G89.29 and Lumbago with sciatica, right side M54.41 [facility] [address] [place] [id number] [place] [address] 61139- 6197 Oct, [facility] [address] [place] [id number] [place] [address] 71069- 8912 Aug, Lumbago with sciatica, right side M54.41 ; Other chronic pain G89.29 and Anxiety F41.9 [facility] [address] [place] [id number] [place] [address] 28455- 8937 Aug, [facility] [address] [place] [id number] [place] [address] 98979- 8307 Aug, [facility] [address] [place] [id number] [place] [address] 82274- 9948 Aug, [facility] [address] [place] [id number] [place] [address] 07297- 3506 Aug, [facility] [address] [place] [id number] [place] [address] 31062- 1917 Aug, [facility] [address] [place] [address]- 9096 Aug, [facility] [address] [place] [id number] [place] [address] 23715- 8587 Jul, Unspecified mood [affective] disorder F39 and Seizure disorder G40.909 [facility] [address] [place] [id number] [place] [address] 56899- 7082 Jul, [facility] [address] [place] [id number] [place] [address] 23533- 8980 Jul, [facility] [address] [place] [id number] [place] [address] 09224- 2375 Jul, Unspecified mood [affective] disorder F39 and Seizure disorder G40.909 [facility] [address] [place] [id number] [place] [address] 37134- 2190 Jul, Polysubstance (excluding opioids) dependence F19.20 ; COPD ( chronic obstructive pulmonary disease) with acute bronchitis J44.0 ; Congestive heart failure, unspecified congestive heart failure chronicity, unspecified congestive heart failure type I50.9 ; Radiculopathy of lumbosacral region M54.17 and Radiculopathy, thoracic region M54.14 [facility] [address] [place] [id number] [place] [address] 11375- 1939 Jun, Lumbago M54.5 [facility] [address] [place] [id number] [place] [address] 71386- 9181 May, [facility] [address] [place] [id number] [place] [address] 85720- 8923 May, [facility] [address] [place] [id number] [place] [address] 50215- 5553 May, [facility] [address] [place] [id number] [place] [address] 88797- 4914 Apr, COPD (chronic obstructive pulmonary disease) with acute bronchitis J44.0 [facility] [address] [place] [id number] [place] [address] 45008- 7889 Apr, Major depressive disorder, recurrent episode, severe F33.2 and Polysubstance (excluding opioids) dependence F19.20 [facility] [address] [place] [id number] [place] [address] 45638- 3008 Mar, Major depressive disorder, recurrent episode, severe F33.2 and Polysubstance (excluding opioids) dependence F19.20 [facility] [address] [place] [id number] [place] [address] 87738- 3624 Mar, Major depressive disorder, recurrent episode, severe F33.2 and Polysubstance (excluding opioids) dependence F19.20 [facility] [address] [place] [id number] [place] [address] 25170- 3090 Mar, Major depressive disorder, recurrent episode, severe F33.2 and Polysubstance (excluding opioids) dependence F19.20 [place] [address] [place] [id number] [place] [address] 28853- 2250 February, Major depressive disorder, recurrent episode, severe F33.2 and Polysubstance (excluding opioids) dependence F19.20 [place] [address] [place] [id number] [place] [address] 97489- 6689 February, [place] [address] [place] [id number] [place] [address] 31796- 2579 February, COPD (chronic obstructive pulmonary disease) with acute bronchitis J44.0 [facility] [address] [place] [id number] [place] [address] 11384 -0359 February, Sore throat J02.9 and Bronchitis J40 [facility] [address] [place] [id number] [place] [address] 44763- 2816 Jan, COPD (chronic obstructive pulmonary disease) with acute bronchitis J44.0 [facility] [address] [place] [id number] [place] [address] 64761- 7408 Jan, COPD (chronic obstructive pulmonary disease) with acute bronchitis J44.0 [facility] [address] [place] [id number] [address]- 0390 14 Jan, 2016 [facility] [address] 20467- 9152 Dec, Gastritis K29.70 ; Constipation K59.00 and Lumbago M54.5 [facility] [address] 66728- 8147 Dec, COPD (chronic obstructive pulmonary disease) with acute bronchitis J44.0 [facility] [address] 70602- 6313 18 Nov, 2015 Major depressive disorder, recurrent episode, severe F33.2 and Polysubstance (excluding opioids) dependence F19.20 [facility] [address] [place] [id number] [place] [address] 49224 -9183 Oct, Oral thrush B37.0 and Drug abuse F19.10 [facility] [address] 41293- 3875 Oct, [facility] [address] 39221- 5408 Sep, COPD (chronic obstructive pulmonary disease) with acute bronchitis J44.0 ; Esophagitis, reflux K21.0 ; Seizure disorder G40.909 ; Primary insomnia F51.01 ; Edema, due to unspecified malnutrition type, unspecified type R60.9 ; Arthritis M19.90 and Thrush B37.0 [facility] [address] [place] [id number] [place] [address] 85005- 1561 Aug, [facility] [address] 42686- 3480 Aug, [place] [address] 71208- 8172 Aug, [facility] [address] [place] [id number] [place] [address] 64654- 0868 Jul, [facility] [address] [id number]- 8677 Jun, [facility] [id number] [place] [address] 61053- 5698 Jun, Counseling on substance use and abuse V65.42 and Obstructive chronic bronchitis, with (acute) exacerbation 491.21 [facility] [address] [place] [id number] [place] [address] 58740- 4862 May, [facility] [address] [place] [id number] [place] [address] 82963- 6214 Apr, [facility] [address] [place] [id number] [place] [address] 84311- 3348 Apr, Abdominal pain 789.00 and Back pain 724.5 [place] [address] [place] [id number] [place] [address] 37060- 4961 Mar, Back pain 724.5 and Illicit drug use 305.90 [place] [id number] [place] [address] 03458- 9144 February, Onychomycosis 110.1 [place] [id number] [place] [address] 39401- 9527 February, Breast cancer screening V76.10 [place] [address] [place] [id number] [place] [address] 71568- 1609 February, [place] [address] [place] [id number] [place] [address] 61705- 9547 February, [place] [address] [place] [id number] [place] [address] 66209- 3966 February, Cough 786.2 ; Obstructive chronic bronchitis, with (acute) exacerbation 491.21 ; Vomiting 787.03 ; 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 and Gastritis 535.50 [place] [id number] [place] [address] [id number]- 7314 Jan, [place] [address] [place] [id number] [place] [address] 38063- 4738 Jan, [facility] [address] [id number] [place] [address]- 2686 24 Dec, 2014 [facility] [place] [facility] [address] [id number] [place] [address]- 4714 20 Dec, 2014 [facility] [place] [facility] [address] [id number] [place] [address]- 6992 20 Dec, 2014 [facility] [place] [facility] [address] [id number] [place] [address]- 1716 13 Dec, 2014 [facility] [place] [facility] [address] [id number] [place] [address]- 5163 13 Dec, 2014 [facility] [place] [facility] [address] [id number] [place] [address]- 2831 12 Dec, 2014 [facility] [place] [facility] [address] [id number] [place] [address]- 6076 Dec, [facility] [place] [facility] [address] [id number] [place] [address]- 8419 Dec, [facility] [place] [facility] [address] [id number] [place] [address]- 9396 Dec, [facility] [place] [facility] [address] [id number] [place] [address]- 5381 Sep, [facility] [place] [facility] [address] [id number] [place] [address]- 6168 Sep, [facility] [place] [facility] [address] [id number] [place] [address]- 5025 Sep, [facility] [place] [facility] [address] [id number] [place] [address]- 6481 Sep, [facility] [place] [facility] [address] [id number] [place] [address]- 8249 Sep, [facility] [place] [facility] [address] [id number] [place] 0443 Sep, [facility] [place] [facility] [address] [id number] [place] [address]- 9571 Sep, [facility] [place] [facility] [address] [id number] [place] [address]- 3948 Sep, [facility] [place] [facility] [address] [id number] [place] [address]- 4588 Sep, [facility] [place] [facility] [address] [id number] [place] 9014 Sep, [facility] [place] [facility] [address] [id number] [place] [address]- 4249 Aug, [facility] [place] [facility] [address] [id number] [place] [address]- 6918 Aug, [facility] [place] [facility] [address] [id number] [place] [address]- 5627 Aug, [facility] [place] [facility] [address] [id number] [place] [address]- 7674 Aug, [facility] [place] [facility] [address] [id number] [place] [address]- 6138 Jul, [facility] [place] [facility] [address] [id number] [place] [address]- 7466 Jul, [facility] [place] [facility] [address] [id number] [place] [address]- 5046 Jun, [facility] [place] [facility] [address] [id number] [place] [address]- 3706 Jun, [facility] [place] [facility] [address] [id number] [place] [address]- 1467 May, [facility] [place] [facility] [address] [id number] [place] [address]- 6945 May, [facility] [place] [facility] [address] [id number] [place] [address]- 8834 May, [facility] [place] [facility] [address] [id number] [place] [address]- 9160 May, [facility] [place] [facility] [address] [id number] [place] [address]- 2546 May, [facility] [address] [id number] [place] [address]- 4196 May, [facility] [address] [id number] [place] [address]- 2546 Apr, [facility] [address] [id number] [place] [address]- 2546 Apr, [facility] [address] [id number] [place] [address]- 2546 Apr, [facility] [address] [id number] [place] [address]- 2546 Apr, [facility] [address] [id number] [place] [address]- 8954 February, [facility] [address] [id number] [place] [address]- 1782 February, [facility] [address] [id number] [place] [address]- 1411 Oct, [facility] [address] [id number] [place] [address]- 4417 Oct, [facility] [address] [id number] [place] [address]- 4539 Oct, [facility] [address] [id number] [place] [address]- 2546 Oct, [facility] [address] [id number] [place] [address]- 2546 Sep, [facility] [place] [facility] [address] [id number] [place] [address]- 2546 Sep, [facility] [address] [id number] [place] [address]- 2546 Sep, [facility] [address] [id number] [place] [address]- 1230 Sep, [facility] [place] [facility] [address] [id number] [place] [address]- 4088 Aug, [facility] [place] [facility] [address] [id number] [place] [address]- 3097 Aug, [facility] [place] [facility] [address] [id number] [place] 0720 Aug, [facility] [place] [facility] [address] [id number] [place] [address]- 7688 Aug, [facility] [place] [facility] [address] [id number] [place] [address]- 5194 Jul, [facility] [place] [facility] [address] [id number] [place] [address]- 2136 Jul, [facility] [place] [facility] [address] [id number] [place] [address]- 6689 Jul, [facility] [place] [facility] [address] [id number] [place] [address]- 4137 Jul, [facility] [place] [facility] [address] [id number] [place] [address]- 4187 Jul, [facility] [place] [facility] [address] [id number] [place] [address]- 6695 Jul, [facility] [place] [facility] [address] [id number] [place] [address]- 3439 Jul, [facility] [place] [facility] [address] [id number] [place] [address] Jul, [facility] [place] [facility] [address] [id number] [place] [address] Jul, [facility] [place] [facility] [address] [id number] [place] [address] Jul, [facility] [place] [facility] [address] [id number] [place] [address] Jun, [facility] [place] [facility] [address] [id number] [place] [address] May, [facility] [id number] [place] [address] Apr, [facility] [id number] [place] [address] Apr, [facility] [address] [id number] [place] [address] Apr, [facility] [id number] [place] [address] Mar, [facility] [id number] [place] [address] Mar, [facility] [id number] [place] [address] Mar, [facility] [id number] [place] [address] Mar, [facility] [id number] [place] [address] Mar, [facility] [id number] [place] [address] Sep, [facility] [id number] [place] [address] February, [facility] [id number] [place] [address] Jan, IMMUNIZATIONS No Known Immunizations SOCIAL HISTORY Never Assessed REASON FOR VISIT ER/Hospital admit/DC PLAN OF CARE VITAL SIGNS MEDICATIONS Medication Instructions Dosage Frequency Start Date End Date Duration Status Metoprolol Tartrate 25 MG Orally Once a day 1/2 tab 24h Active Pantoprazole Sodium 40 MG TAKE 1 TABLET BY MOUTH DAILY 30 Active Tylenol Extra Strength 500 MG Orally every 6 hrs 2 tablets as needed 6h Active Digoxin 125 mcg Orally Once a day 1 tablet 24h 90 days Active Furosemide 40 mg 1 tablet Once a day. NEEDS APPT FOR REFILLS Orally Active Haloperidol 5 mg Orally Twice a day 1 tablet 12h Active Calcium Carbonate Antacid 600 MG Orally Once a day 1 tablet as needed 24h Active Cetirizine HCl 10 mg Orally Once a day 1 tablet 24h 20 Mar, 2017 Sep, 30 day(s) Active Keppra 1000 MG Orally every 12 hrs 1 tablet 12h 90 days Active Benztropine Mesylate 1 MG Orally 2 times a day 1 tablet 12h Active Xarelto 20 MG Orally Once a day 1 tablet with food 24h Active Tylenol Sinus Severe 5-325-200 MG Orally every 4 hrs 2 tablets as needed 4h Active Diclofenac Sodium 75 MG Orally Twice a day 1 tablet 12h Active Oxygen 3 L Active Meclizine HCl 25 MG Orally Once a day 1 tablet as needed 24h Active Protonix 40 MG Orally Once a day 1 tablet 24h Active Diltiazem CD 180 MG Orally Once a day 1 capsule 24h Active RESULTS No Results PROCEDURES No Known [...] bleeding 2015 Hospitalization History A fib with [facility] 02/06/17 Hospitalization History Altered mental status, lethargy-[facility] 07/10/17 Hospitalization History Chest pain-[facility] 08[facility]05/17 Hospitalization History [facility] 10/2017
--- OUTSIDE RECORDS SUMMARY | 2018-05-17 17:46 | XMS REPORT ---
Author Author RFANCHESKA HEADLEY Organization [facility] Address [address] [place] [address] Care Team Providers Care Human Resources Director Name Role Phone FRANCHESKA HEADLEY Unavailable PROBLEMS Type Condition ICD9-CM Code EML70-OI Code Onset Dates Condition Status SNOMED Code Problem Anxiety F41.9 Active 27528911 Problem Seasonal allergic rhinitis, unspecified allergic rhinitis trigger J30.2 Active 457309872 Problem Other chronic pain G89.29 Active 09494234 Problem Chronic fatigue R53.82 Active 67671863 Problem Seizure disorder G40.909 Active 102002615 Problem Unsteady gait R26.81 Active 06472086 Problem Infection of right eye H44.001 Active [id number] Problem Lumbago with sciatica, left side M54.42 Active 594391602 Problem Chronic pain syndrome G89.4 Active 333731102 Problem Fibromyalgia M79.7 Active 385555186 Problem Atrial fibrillation, unspecified type I48.91 Active 57823718 Problem Esophagitis, reflux K21.0 Active 726819680 Problem Primary insomnia F51.01 Active 370643913 Problem Edema, due to unspecified malnutrition type, unspecified type R60.9 Active 858588502 Problem Polysubstance (excluding opioids) dependence F19.20 Active 82493465 Problem Congestive heart failure, unspecified congestive heart failure chronicity, unspecified congestive heart failure type I50.9 Active 70948060 Problem COPD (chronic obstructive pulmonary disease) with acute bronchitis J44.0 Active [id number] Problem Unspecified mood [affective] disorder F39 Active 434467530 Problem Major depressive disorder, recurrent episode, severe F33.2 Active 517426996497 Problem Lumbago with sciatica, right side M54.41 Active 890683842 ALLERGIES No Information ENCOUNTERS Encounter Location Date Diagnosis [facility] [address] [facility] [id number] [place] [address] February, [place] [id number] [place] [address] 93235- 1769 February, Primary insomnia F51.01 ; Atrial fibrillation, unspecified type I48.91 ; Unsteady gait R26.81 ; General weakness R53.1 ; Chronic fatigue R53.82 ; Hypokalemia E87.6 and Other chronic pain G89.29 [place] [address] [address]- 9690 February, [place] [address] [address]34- 1274 Jan, Lumbago with sciatica, right side M54.41 [place] [address] 63098- 4683 Jan, Anxiety F41.9 ; Chronic pain syndrome G89.4 ; Folliculitis L73.9 and Fibromyalgia M79.7 [place] [address] 46265- 9547 Jan, Lumbago with sciatica, right side M54.41 [place] [address] 53663- 1486 Dec, [place] [id number] [place] [address] 14445- 0819 Nov, Lumbago with sciatica, right side M54.41 [place] [id number] [place] [address] 69708- 1846 Nov, [place] [id number] [place] [address] 60168- 5562 Nov, Unspecified mood [affective] disorder F39 ; Hypokalemia E87.6 and Anemia, unspecified type D64.9 [place] [id number] [place] [address] 75231- 7798 Nov, [place] [address] 90470- 3413 Oct, Lumbago with sciatica, right side M54.41 [facility] [id number] [place] [address] 02819 -9378 Aug, Congestive heart failure, unspecified congestive heart failure chronicity, unspecified congestive heart failure type I50.9 and Peripheral edema R60.9 [place] [address] 68139- 7453 Aug, Polysubstance (excluding opioids) dependence F19.20 and Lumbago with sciatica, left side M54.42 [place] [address] 35319- 2732 Aug, [facility] [address] 66968 -3156 Aug, Infection of right eye H44.001 [place] [address] 12041- 6132 Aug, Congestive heart failure, unspecified congestive heart failure chronicity, unspecified congestive heart failure type I50.9 and Other chronic pain G89.29 [place] [address] 05634- 1012 Aug, Lumbago with sciatica, right side M54.41 [place] [address] 10602- 8652 Aug, Lumbago with sciatica, right side M54.41 [place] [address] 20798- 4927 Aug, [place] [address] 38777- 6800 Jul, [place] [address] 64685- 8506 Jul, COPD (chronic obstructive pulmonary disease) with acute bronchitis J44.0 ; Atrial fibrillation, unspecified type I48.91 ; Polysubstance (excluding opioids) dependence F19.20 ; Congestive heart failure, unspecified congestive heart failure chronicity, unspecified congestive heart failure type I50.9 and Lumbago with sciatica, right side M54.41 [facility] [id number] [place] [address] [id number] Jul, [facility] [id number] [place] [address] 64390- 7335 Jul, Seizure disorder G40.909 [facility] [id number] [place] [address] 66948- 3595 Jul, Lumbago with sciatica, right side M54.41 [place] [id number] [place] [address] 93660- 8631 Jul, [facility] [id number] [place] [address] 37631- 6586 Jun, Congestive heart failure, unspecified congestive heart failure chronicity, unspecified congestive heart failure type I50.9 ; Lumbago with sciatica, right side M54.41 and Other chronic pain G89.29 [facility] [id number] [place] [address] 25800- 1259 Jun, [facility] [id number] [place] [address] 24095- 0162 Jun, [facility] [id number] [place] [address] 28480- 0978 May, Lumbago with sciatica, left side M54.42 [facility] [address] [address] 8228 May, [facility] [id number] [place] [address] 26099 -7614 May, Unspecified fall, initial encounter W19.XXXA [facility] [id number] [place] [address] 20413- 0110 May, Lumbago with sciatica, right side M54.41 [facility] [id number] [place] [address] 61472- 1862 May, [place] [id number] [place] [address] 66405- 7205 May, Bloating R14.0 and Right hip pain M25.551 [place] [id number] [place] [address] 16548- 8465 Apr, [place] [address] 47015- 9967 Apr, Lumbago with sciatica, left side M54.42 [place] [address] 49318- 8479 Mar, [facility] [place] [facility] [id number] [place] [address] 58458 -0743 Mar, Lumbago with sciatica, right side M54.41 [facility] [place] [address] 60552 -4873 Mar, Abdominal distension R14.0 [place] [id number] [place] [address] 42967- 3622 Mar, Periumbilical abdominal pain R10.33 and Diarrhea, unspecified type R19.7 [facility] [place] [id number] [place] [address] 77891 -0735 February, Seasonal allergic rhinitis, unspecified allergic rhinitis trigger J30.2 ; Acute middle ear effusion, bilateral H65.193 and Lumbago with sciatica, right side M54.41 [place] [id number] [place] [address] 56646- 9209 February, Routine gynecological examination Z01.419 [place] [address] 51307- 4848 Jan, [place] [id number] [place] [address] 90953- 9231 Jan, Atrial fibrillation, unspecified type I48.91 [facility] [id number] [place] [address] 76519 -7746 Jan, Lumbago with sciatica, right side M54.41 and Wound, open, toe, initial encounter S91.109A [facility] [id number] [place] [address] [id number] Jan, [facility] [id number] [place] [address] 13703 -1065 15 Jan, 2017 Acute bilateral low back pain without sciatica M54.5 [place] [id number] [place] [address] 49417- 9527 Dec, Congestive heart failure, unspecified congestive heart failure chronicity, unspecified congestive heart failure type I50.9 [place] [id number] [place] [address] 34643- 3677 Dec, [facility] [address] 06653- 9966 Dec, Thrush, oral B37.0 and Lumbago with sciatica, right side M54.41 [place] [id number] [place] [address] 24139- 4203 Dec, [facility] [id number] [place] [address] 36328- 7412 Nov, [place] [id number] [place] [address] 72569- 0263 Nov, [facility] [id number] [place] [address] 96640- 0672 Oct, Polysubstance (excluding opioids) dependence F19.20 ; Other chronic pain G89.29 and Lumbago with sciatica, right side M54.41 [facility] [id number] [place] [address] 73149- 0547 Oct, [facility] [id number] [place] [address] 14851- 8667 Aug, Lumbago with sciatica, right side M54.41 ; Other chronic pain G89.29 and Anxiety F41.9 [facility] [id number] [place] [address] 55505- 3520 Aug, [facility] [id number] [place] [address] 17216- 4359 Aug, [facility] [id number] [place] [address] 37586- 2259 Aug, [facility] [id number] [place] [address] 42081- 6590 Aug, [facility] [id number] [place] [address] 00413- 7520 Aug, [facility] [id number] [place] [address] 65558- 5472 Aug, [facility] [id number] [place] [address] 00411- 9863 Jul, Unspecified mood [affective] disorder F39 and Seizure disorder G40.909 [facility] [id number] [place] [address] 22453- 6158 Jul, [facility] [id number] [place] [address] 40152- 8065 Jul, [facility] [address] [place] [address] 37066- 8475 Jul, Unspecified mood [affective] disorder F39 and Seizure disorder G40.909 [facility] [address] [address]- 4281 Jul, Polysubstance (excluding opioids) dependence F19.20 ; COPD ( chronic obstructive pulmonary disease) with acute bronchitis J44.0 ; Congestive heart failure, unspecified congestive heart failure chronicity, unspecified congestive heart failure type I50.9 ; Radiculopathy of lumbosacral region M54.17 and Radiculopathy, thoracic region M54.14 [facility] [address] [address]- 8594 Jun, Lumbago M54.5 [facility] [id number] [place] [address] 38548- 0718 May, [facility] [id number] [place] [address] 12667- 3866 May, [facility] [id number] [place] [address] 14077- 1543 May, [facility] [id number] [place] [address] 76501- 9330 Apr, COPD (chronic obstructive pulmonary disease) with acute bronchitis J44.0 [place] [id number] [place] [address] 05950- 6620 Apr, Major depressive disorder, recurrent episode, severe F33.2 and Polysubstance (excluding opioids) dependence F19.20 [place] [id number] [place] [address] 12956- 4203 Mar, Major depressive disorder, recurrent episode, severe F33.2 and Polysubstance (excluding opioids) dependence F19.20 [place] [address] [place] [address] 86724- 0952 Mar, Major depressive disorder, recurrent episode, severe F33.2 and Polysubstance (excluding opioids) dependence F19.20 [place] [id number] [place] [address] 92397- 5210 Mar, Major depressive disorder, recurrent episode, severe F33.2 and Polysubstance (excluding opioids) dependence F19.20 [place] [id number] [place] [address] 37098- 7319 February, Major depressive disorder, recurrent episode, severe F33.2 and Polysubstance (excluding opioids) dependence F19.20 [place] [id number] [place] [address] 65963- 8969 February, [place] [id number] [place] [address] 78510- 4157 February, COPD (chronic obstructive pulmonary disease) with acute bronchitis J44.0 [facility] [address] 37279 -4381 February, Sore throat J02.9 and Bronchitis J40 [place] [address] 09249- 4207 Jan, COPD (chronic obstructive pulmonary disease) with acute bronchitis J44.0 [place] [address] 55262- 5385 Jan, COPD (chronic obstructive pulmonary disease) with acute bronchitis J44.0 [place] [address] 02574- 5069 Jan, [place] [address] 08003- 8636 Dec, Gastritis K29.70 ; Constipation K59.00 and Lumbago M54.5 [place] [address] 68220- 9131 Dec, COPD (chronic obstructive pulmonary disease) with acute bronchitis J44.0 [place] [id number] [place] [address] 28414- 5537 Nov, Major depressive disorder, recurrent episode, severe F33.2 and Polysubstance (excluding opioids) dependence F19.20 [facility] [id number] [place] [address] 65683 -9565 Oct, Oral thrush B37.0 and Drug abuse F19.10 [place] [address] 25922- 4152 Oct, [address] 06448- 7117 07 Sep, 2015 COPD (chronic obstructive pulmonary disease) with acute bronchitis J44.0 ; Esophagitis, reflux K21.0 ; Seizure disorder G40.909 ; Primary insomnia F51.01 ; Edema, due to unspecified malnutrition type, unspecified type R60.9 ; Arthritis M19.90 and Thrush B37.0 [place] [id number] [place] [address] 70640- 4717 Aug, [place] [id number] [place] [address] 51585- 8657 Aug, [place] [address] 15371- 5561 Aug, [place] [id number] [place] [address] 03000- 6754 Jul, [place] [address] 18352- 1115 Jun, [place] [address] 72221- 9149 Jun, Counseling on substance use and abuse V65.42 and Obstructive chronic bronchitis, with (acute) exacerbation 491.21 [place] [id number] [place] [address] 01680- 8682 May, [place] [id number] [place] [address] 90636- 2740 Apr, [place] [id number] [place] [address] 63452- 9533 Apr, Abdominal pain 789.00 and Back pain 724.5 [place] [id number] [place] [address] 49247- 1671 Mar, Back pain 724.5 and Illicit drug use 305.90 [place] [id number] [place] [address] 88616- 5081 February, Onychomycosis 110.1 [place] [id number] [place] [address] 05617- 8229 February, Breast cancer screening V76.10 [place] [address] [address]- 0227 February, [facility] [id number] [place] [address] 73675- 0227 February, [facility] [id number] [address]- 8385 February, Cough 786.2 ; Obstructive chronic bronchitis, with (acute) exacerbation 491.21 ; Vomiting 787.03 ; 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 and Gastritis 535.50 [facility] [id number] [place] [address] 93910- 8835 Jan, [facility] [id number] [place] [address] 15337- 7965 Jan, [facility] [id number] [place] [address] 37203- 1031 Dec, [facility] [id number] [place] [address] 64390- 1524 Dec, [facility] [address] [place] [address] 45623- 2104 Dec, [facility] [id number] [place] [address] 04286- 7116 Dec, [facility] [address], [place] [address]- 2132 Dec, [facility] [id number] [place] [address] 09103- 7330 Dec, [facility] [address], [place] [address]- 2861 Dec, [facility] [id number] [place] [address] 07570- 7879 Dec, [facility] [address] [address]- 3827 Dec, [facility] [id number] [place] [address] 04258- 3856 Sep, [facility] [place] [facility] [address] [id number] [place] [address]- 5911 Sep, [facility] [place] [facility] [address] [id number] [place] [address]- 4751 Sep, [facility] [place] [facility] [address] [id number] [place] 4174 Sep, [facility] [place] [facility] [address] [id number] [place] 0475 Sep, [facility] [place] [facility] [address] [id number] [place] [address]- 5073 Sep, [facility] [place] [facility] [address] [id number] [place] 2191 Sep, [facility] [place] [facility] [address] [id number] [place] [address]- 7381 Sep, [facility] [place] [facility] [address] [id number] [place] [address]- 6623 Sep, [facility] [place] [facility] [address] [id number] [place] [address]- 2254 Sep, [facility] [place] [facility] [address] [id number] [place] [address]- 6612 Aug, [facility] [place] [facility] [address] [id number], [place] [address]- 5233 Aug, [facility] [place] [facility] [address] [id number], [place] [address]- 2292 Aug, [facility] [place] [facility] [address] [id number] [place] [address]- 5191 Aug, [facility] [place] [facility] [address] [id number] [place] [address]- 0849 Jul, [facility] [place] [facility] [address] [id number] [place] [address]- 2887 Jul, [facility] [place] [facility] [address] [id number] [place] [address]- 2227 Jun, [facility] [address] [id number] [place] [address]- 7805 Jun, [facility] [place] [facility] [address] [id number] [place] [address]- 8666 May, [facility] [place] [facility] [address] [id number] [place] [address]- 7829 May, [facility] [place] [facility] [address] [id number] [place] [address]- 8563 May, [facility] [place] [facility] [address] [id number] [place] [address]- 4362 May, [facility] [place] [facility] [address] [id number] [place] [address]- 9632 May, [facility] [place] [facility] [address] [id number] [place] [address]- 2062 May, [facility] [place] [facility] [address] [id number] [place] [address]- 0902 Apr, [facility] [place] [facility] [address] [id number] [place] [address]- 3599 Apr, [facility] [place] [facility] [address] [id number] [place] [address]- 8014 Apr, [facility] [place] [facility] [address] [id number] [place] [address]- 5639 Apr, [facility] [place] [facility] [address] [id number] [place] [address]- 1137 February, [facility] [place] [facility] [address] [id number] [place] [address]- 3101 February, [facility] [place] [facility] [address] [id number] [place] [address]- 3985 Oct, [facility] [place] [facility] [address] [id number] [place] [address]- 5007 Oct, [facility] [address] [id number] [place] [address]- 0109 Oct, [facility] [place] [facility] [address] [id number] [place] [address]- 7945 Oct, [facility] [place] [facility] [address] [id number] [place] [address]- 6354 Sep, [facility] [place] [facility] [address] [id number] [place] [address]- 0618 Sep, [facility] [place] [facility] [address] [id number] [place] [address]- 3137 Sep, [facility] [place] [facility] [address] [id number] [place] [address]- 0086 Sep, [facility] [place] [facility] [address] [id number] [place] [address]- 4967 Aug, [facility] [place] [facility] [address] [id number] [address]- 1289 Aug, [facility] [place] [facility] [address] [id number] [place] [address]- 2012 Aug, [facility] [place] [facility] [address] [id number], [place] [address]- 7089 Aug, [facility] [place] [facility] [address] [id number], [place] [address]- 3167 Jul, [facility] [place] [facility] [address] [id number], [place] [address]- 5411 Jul, [facility] [place] [facility] [address] [id number], [place] [address] Jul, [facility] [place] [facility] [address] [id number], [place] [address] Jul, [facility] [place] [facility] [address] [id number], [place] [address] Jul, [facility] [place] [facility] [address] [id number], [place] [address] Jul, [facility] [place] [facility] [address] [id number] [place] [address] Jul, [facility] [place] [facility] [address] [id number] [place] [address] Jul, [facility] [place] [facility] [address] [id number] [place] [address] Jul, [facility] [place] [facility] [address] [id number] [place] [address] Jul, [facility] [place] [facility] [address] [id number] [place] [address] Jun, [facility] [place] [facility] [address] [id number] [place] [address] May, [facility] [place] [facility] [address] [id number] [place] [address] Apr, [facility] [place] [facility] [address] [id number] [place] [address] Apr, [facility] [place] [facility] [address] [id number] [place] [address] Apr, [facility] [place] [facility] [address] [facility] [id number] [place] [address] Mar, [facility] [place] [facility] [address] [id number] [place] [address] Mar, [facility] [place] [facility] [address] [id number] [place] [address] Mar, [facility] [place] [facility] [address] [id number] [place] [address] Mar, [facility] [place] [facility] [address] [id number] [place] [address] Mar, [facility] [place] [facility] [address] [id number] [place] [address] Sep, [facility] [place] [facility] [address] [facility] [id number] [place] [address] February, [facility] [address] [facility] [id number] [place] [address] Jan, IMMUNIZATIONS No Known Immunizations SOCIAL HISTORY Never Assessed REASON FOR VISIT injection PLAN OF CARE VITAL SIGNS MEDICATIONS Unknown [...] bleeding 2015 Hospitalization History A fib with [facility] 02/06/17 Hospitalization History Altered mental status, lethargy-[facility] 07/10/17 Hospitalization History Chest pain-[facility] 08/05/17 Hospitalization History [facility] 10/2017 Hospitalization History Low potassium, A fib 01/2018
--- NOTE | 2018-05-17 17:59 | Consultation-Cardiology ---
HPI-Cardiology Cardiology Consultation: Date of Consultation 05/17/18 Date of Admission Attending Physician Pamela Don DO Admitting Physician [facility] Consulting Physician Whit MAHONEY MD HPI: Time Seen by Provider: 16:00 Chief Complaint: Suicide attempt, atrial fibrillation This is a 37-year-old lady who has previous history of IV drug abuse and severe tricuspid regurgitation. Was recommended cardiac surgery but the requirement was to be drug-free for at least 6 months which has not happened therefore she has not had cardiac surgery for tricuspid regurgitation. She presented to the ER with suicide attempt with Tylenol overdose and met amphetamine. She was found to be in atrial fibrillation/SVT. Responded to Cardizem. Patient denied any shortness of breath or chest pain. Psychologically she was in distress. Review of Systems-Cardiology Review of Systems Constitutional: As described under HPI; No As described under HPI, No no symptoms reported, No chills, No fever, No lightheadedness Eyes: No As described under HPI, No no symptoms reported, No blindness, No blurred vision, No contact lenses, No drainage, No decreased acuity, No foreign body sensation, No pain, No vision change Ears/Nose/Throat: No As described under HPI, No no symptoms reported, No chronic hearing loss, No ear discharge, No ear pain, No nasal drainage, No ulcerations Respiratory: No no symptoms reported; As described under HPI; No As described under HPI, No cough, No orthopnea, No shortness of breath, No SOB with excertion Cardiovascular: No no symptoms reported; As described under HPI; No As described under HPI, No chest pain, No edema; irregular heart rate; No lightheadedness; palpitations Gastrointestinal: No no symptoms reported, No As described under HPI, No abdomen distended, No abdominal pain, No blood streaked bowels, No constipation , No diarrhea, No nausea, No vomiting, No stool coloration changes Genitourinary: No As described under HPI, No burning, No dysuria, No discharge , No frequency, No flank pain, No hematuria, No urgency : Yes : No Musculoskeletal: No no symptoms reported, No As describe under HPI, No back pain, No gout, No joint pain, No joint swelling, No muscle pain, No muscle stiffness, No neck pain, No other Skin: No no symptoms reported, No As described under HPI, No change in color, No change in hair/nails, No dryness, No lesions, No lumps, No rash, No other, No skin related problems, No ulcerations, No rash on exposed areas, No ulcerations on exposed areas Psychiatric/Neurological: As described under HPI, depression; No anxiety, No seizure, No focal weakness, No syncope Hematologic: No bleeding abnormalities IUD-Uhplcw-Kazajq Hx Patient Social History Alcohol Use: Rarely Uses Recreational Drug Use: Yes (METH) Drug of Choice: METH,POT, reports sober currently Type Used: Cigarettes 2nd Hand Smoke Exposure: Yes Recent Foreign Travel: No Recent Infectious Disease Expo: No Physical Abuse Screen: No Sexual Abuse: No Immunizations Up To Date Tetanus Booster (TDap): Unknown Date of Pneumonia Vaccine: Oct 22, 2017 Date of Influenza Vaccine: Aug 22, 2015 Past Medical History PMH As described under Assessment. Family Medical History Family Medical History: No reported family h/o premature CAD or SCD. Family History: Alcoholism 19 MOTHER Depression Depression Diabetes mellitus 19 MOTHER Drug abuse 19 MOTHER FH: cancer of genital organ 19 MOTHER Allergies and Home Medications Allergies Coded Allergies: asenapine (Unverified Allergy, Severe, TOUNGE SWELLING, 04/01/15) ondansetron (Verified Allergy, Mild, 06/24/14) Penicillins (Unverified Allergy, Unknown, 06/07/14) Sulfa (Sulfonamide Antibiotics) (Unverified Allergy, Unknown, 04/22/11) erythromycin base (Verified Allergy, Unknown, 11/26/05) peas (Verified Allergy, Unknown, 02/15/18) prochlorperazine (Verified Allergy, Unknown, 01/31/06) promethazine (Verified Allergy, Unknown, 01/31/06) promethazine HCl (Unverified Allergy, Unknown, 06/07/14) propoxyphene (Verified Allergy, Unknown, 11/26/05) Home Medications Acetaminophen 500 Mg Tablet, 1,000-2,000 MG PO Q6H PRN for PAIN-MILD, (Reported) TAKES 2-4 (500 MG) TABLETS Calcium Carbonate 300 Mg Tab.chew, 600 MG PO DAILY PRN for INDIGESTION, ( Reported) TAKES 2 (300 MG) TABLETS Cyclobenzaprine HCl 10 Mg Tablet, 10 MG PO BID PRN for MUSCLE SPASMS, (Reported) Digoxin 125 Mcg Tablet, 125 MCG PO DAILY, (Reported) Diltiazem HCl 180 Mg Cap.er.24h, 180 MG PO DAILY, (Reported) Furosemide 40 Mg Tablet, 20 MG PO BID, (Reported) TAKES 1/2 (40MG) TABLET Levetiracetam 1,000 Mg Tablet, 1,000 MG PO BID, (Reported) Loratadine 10 Mg Tablet, 10 MG PO DAILY, (Reported) Meclizine HCl 25 Mg Tablet, 25 MG PO DAILY, (Reported) Metoprolol Tartrate 25 Mg Tablet, 25 MG PO BID, (Reported) Mirtazapine 30 Mg Tablet, 30 MG PO HS, (Reported) Omeprazole 40 Mg Capsule.dr, 40 MG PO 1800, (Reported) Pantoprazole Sodium 40 Mg Tablet.dr, 40 MG PO DAILY, (Reported) Polyethylene Glycol 3350 17 Gm Powd.pack, 17 GM PO DAILY PRN for CONSTIPATION- 2ND LINE, (Reported) Potassium Chloride 20 Meq Tab.er.prt, 20 MEQ PO 0900,1800, (Reported) Prazosin HCl 5 Mg Capsule, 5 MG PO HS, (Reported) Risperidone 1 Mg Tablet, 1 MG PO BID, (Reported) Rivaroxaban 20 Mg Tablet, 20 MG PO DAILY, (Reported) Patient Home Medication List Home Medication List Reviewed: Yes Physical Exam-Cardiology Physical Exam Vital Signs/I&O 05/18/18 05/18/18 05/18/18 05/18/18 03:00 03:22 04:00 04:00 Temp 98.2 Pulse 67 71 Resp 17 20 B/P (MAP) Pulse Ox 98 100 95 O2 Delivery Room Air Room Air Room Air 05/18/18 05/18/18 05/18/18 05/18/18 05:03 06:00 07:00 07:00 Pulse 67 70 71 75 Resp 17 18 10 B/P (MAP) Pulse Ox 97 O2 Delivery Room Air Room Air Room Air 05/18/18 05/18/18 05/18/18 05/18/18 08:00 08:30 09:00 09:00 Temp 98.7 Pulse 85 74 Resp 20 24 B/P (MAP) 148/85 (106) Pulse Ox 99 96 O2 Delivery Room Air Room Air Room Air 05/18/18 05/18/18 05/18/18 05/18/18 11:00 12:00 12:15 12:15 Temp 98.8 Pulse 89 84 Resp 19 20 B/P (MAP) Pulse Ox 98 97 99 O2 Delivery Room Air Room Air Room Air 05/18/18 05/18/18 05/18/18 13:00 13:00 14:00 Pulse 76 77 89 Resp 18 27 B/P (MAP) Pulse Ox 98 O2 Delivery Room Air Room Air 05/18/18 00:00 Intake Total 2134.0 ml Balance 2134.0 ml Capillary Refill : Less Than 3 Seconds Constitutional: appears stated age, AAO x 3; No apparent distress; well- developed, well-nourished HEENT: PERRL; No normal ENT inspection, No TMs normal, No pharynx normal, No scleral icterus (R), No scleral icterus (L), No pale conjunctivae (R), No pale conjunctivae (L), No photophobia, No TM abnormal (R), No TM abnormal (L), No pharyngeal erythema, No tonsillar exudate, No other, No discharge, No EOMI; hearing is well preserved; No hard of hearing; oral hygience is good; No ulceration, No xanthelasmas are seen Neck: No non-tender, No full range of motion, No supple, No normal inspection, No carotid bruit, No limited range of motion, No lymphadenopathy (R), No lymphadenopathy (L), No tender lateral, No tender midline, No thyromegaly, No other; carotid pulses are 2 + bilaterally; No with good upstrokes Respiratory: No accessory muscle use, No respiratory distress, No chest tender , No chest expansion is symmetric; chest is bilaterally symmetric; No lungs clear to percussion; lungs clear to auscultation; No crackles, No rhonchi, No rales, No stridor, No wheezing, No pleural rub, No other Cardiovascular: regular rate-rhythm; No irregularly irregular, No extra beats, No parasternal heave is noted, No JVD, No edema, No bradycardia, No tachycardia , No point of maximal impulse, No cardiac thrills are palpable; S1 and S2; No gallop/S3, No gallop/S4, No diastolic murmur, No systolic murmur, No friction rub, No click, No other Gastrointestinal: No tender, No soft, No round, No distended, No pulsatile mass , No organomegaly, No guarding, No rebound, No tenderness, No hernia, No mass, No audible bowel sounds, No abnormal bowel sounds, No abdominal bruits, No spleenomegaly, No other Rectal: deferred Extremities: No normal range of motion, No non-tender, No normal inspection, No pedal edema, No calf tenderness, No normal capillary refill, No pelvis stable , No calf tenderness, No inflammation, No pedal edema, No slow capillary refill , No swelling, No other, No abrasion, No clubbing, No cyanosis, No ecchymosis, No laceration, No no lower extremity edema bilateral, No significant edema, No tenderness, No wound Neurologic/Psychiatric: no motor/sensory deficits, alert, oriented x 3, depressed affect, power is 5/5 both on sides Skin: No normal color, No warm/dry, No cyanosis, No cool, No diaphoresis, No damp, No ecchymosis, No jaundice, No mottled, No pallor, No rash, No tattoos/ piercings, No ulcerations, No rash on exposed areas, No ulcerations on exposed areas, No other Data Review Labs Laboratory Tests 05/17/18 16:36: Troponin I < 0.30 05/18/18 04:50: White Blood Count 12.5H, Red Blood Count 4.01L, Hemoglobin 8.9L, Hematocrit 28L , Mean Corpuscular Volume 69L, Mean Corpuscular Hemoglobin 22L, Mean Corpuscular Hemoglobin Concent 32, Red Cell Distribution Width 19.4H, Platelet Count 487H, Mean Platelet Volume 9.5, Neutrophils (%) (Auto) 60, Lymphocytes (% ) (Auto) 26, Monocytes (%) (Auto) 11, Eosinophils (%) (Auto) 2, Basophils (%) ( Auto) 0, Neutrophils # (Auto) 7.5, Lymphocytes # (Auto) 3.3, Monocytes # (Auto) 1.4H, Eosinophils # (Auto) 0.3, Basophils # (Auto) 0.0, Prothrombin Time 15.3H, INR Comment 1.2, Sodium Level 136, Potassium Level 3.5L, Chloride Level 108H, Carbon Dioxide Level 20L, Anion Gap 8, Blood Urea Nitrogen 9, Creatinine 0.61, Estimat Glomerular Filtration Rate > 60, BUN/Creatinine Ratio 15, Glucose Level 101, Calcium Level 9.1, Magnesium Level 1.9, Triglycerides Level 76, Cholesterol Level 132, LDL Cholesterol Direct 93, VLDL Cholesterol 15, HDL Cholesterol 32L, Acetaminophen Level < 10L ECG Impression ECG Initial ECG Rhythm: Normal Sinus Comment Previous EKG showed atrial fibrillation with RVR. A/P-Cardiology Assessment/Admission Diagnosis Suicide attempt, Tylenol overdose, Previous history of IV drug abuse, Methamphetamine abuse, Atrial fibrillation/SVT, Severe tricuspid regurgitation. Plan Suicide attempt, Tylenol overdose: Psychiatry consultation. Defer to primary team. Previous history of IV drug abuse, Methamphetamine abuse, Atrial fibrillation/SVT, rate control with Cardizem. Now in sinus rhythm. Oral anticoagulation not recommended at this point in time. Full aspirin is recommended. Severe tricuspid regurgitation: No cardiac surgery at this point in time. Thank you for your consultation. Please call me if you have any questions. Keanu Mahoney MD, FACP, FACC, FSCAI, FHRS, CCDS Interventional Cardiology Cardiac Electrophysiology Vascular Medicine and Endovascular Interventions Clinical Quality Measures DVT/VTE Risk/Contraindication: Risk Factor Score Per Nursin RFS Level Per Nursing on Admit: 1=Low/No VTE PPX Whit MAHONEY MD May 17, 2018 17:58
[2018-05-17] MEDS ORDERED: NON-FORMULARY MEDICATION 1 EA EA (Polyethylene Glycol 3350 (Miralax) 17 GM) PO PRN (18:00)
[2018-05-17] MEDS ORDERED: POLYETHYLENE GLYCOL 17 GM (MIRALAX) PACK PO PRN (18:30)
[2018-05-17 19:00] VITALS: BP 134/70
[2018-05-17] MEDS ORDERED: LORazepam INJ 2 MG/ML (ATIVAN) VIAL IVP PRN (19:30)
[2018-05-17 20:00] VITALS: BP 148/96
[2018-05-17] MEDS: LEVETIRACETAM 1,000 MG (KEPPRA) TABLET PO SCH ×2 (20:41→21:09)
[2018-05-17] MEDS: risperiDONE 1 MG (RisperDAL) TAB PO SCH (20:41)
[2018-05-17] MEDS ORDERED: MIRTAZAPINE 15 MG (REMERON) TAB PO SCH (21:00)
[2018-05-17] MEDS ORDERED: NON-FORMULARY MEDICATION 1 EA EA (Prazosin HCl 5 MG) PO SCH (21:00)
[2018-05-17] MEDS ORDERED: RISPERIDONE 1 MG PO SCH (21:00)
[2018-05-17] MEDS ORDERED: NON-FORMULARY MEDICATION 1 EA EA (Mirtazapine 30 MG) PO SCH (21:00)
[2018-05-17] MEDS ORDERED: HALOPERIDOL 5 MG/ML (HALDOL) AMP IM NR (22:00)
[2018-05-17] MEDS ORDERED: diphenhydrAMINE 50 MG/ML INJ (BENADRYL) IM NR (22:00)
[2018-05-17] MEDS ORDERED: meTOprolol 5 MG/5 ML (LOPRESSOR) VIAL ONE (22:09)
[2018-05-17] MEDS ORDERED: meTOprolol 5 MG/5 ML (LOPRESSOR) VIAL IV ONE (22:30)
[2018-05-18 02:00] VITALS: BP 149/87
[2018-05-18 05:02] LABS: BASOPHILS % (AUTO) 0 % (0-10); EOSINOPHILS # (AUTO) 0.3 10^3/uL (0.0-0.3); EOSINOPHILS % (AUTO) 2 % (0-10); HEMATOCRIT 28 % (35-52); HEMOGLOBIN 8.9 G/DL (11.5-16.0); LYMPHOCYTES # (AUTO) 3.3 X 10^3 (1.0-4.0); LYMPHOCYTES % (AUTO) 26 % (12-44); MEAN CORPUSCULAR HEMOGLOBIN 22 PG (25-34); MEAN CORPUSCULAR HGB CONC 32 G/DL (32-36); MEAN CORPUSCULAR VOLUME 69 FL (80-99); MEAN PLATELET VOLUME 9.5 FL (7.4-10.4); MONOCYTES # (AUTO) 1.4 X 10^3 (0.0-1.0); MONOCYTES % (AUTO) 11 % (0-12); NEUTROPHILS # (AUTO) 7.5 X 10^3 (1.8-7.8); NEUTROPHILS % (AUTO) 60 % (42-75); PLATELET COUNT 487 10^3/uL (130-400); RED BLOOD COUNT 4.01 10^6/uL (4.35-5.85); RED CELL DISTRIBUTION WIDTH 19.4 % (10.0-14.5); WHITE BLOOD COUNT 12.5 10^3/uL (4.3-11.0)
[2018-05-18 05:11] LABS: INR 1.2 (0.8-1.4); PROTHROMBIN TIME PATIENT 15.3 SEC (12.2-14.7)
[2018-05-18 05:20] LABS: BUN/CREATININE RATIO 15; CALCIUM 9.1 MG/DL (8.5-10.1); CARBON DIOXIDE 20 MMOL/L (21-32); CHLORIDE 108 MMOL/L (98-107); CREATININE SERUM 0.61 MG/DL (0.60-1.30); GFR ESTIMATED > 60; GLUCOSE 101 MG/DL (70-105); POTASSIUM 3.5 MMOL/L (3.6-5.0); SODIUM 136 MMOL/L (135-145)
[2018-05-18 05:34] LABS: CHOLESTEROL 132 MG/DL (< 200); HDL CHOLESTEROL 32 MG/DL (40-60); TRIGLYCERIDES 76 MG/DL (<150); VLDL CHOLESTEROL 15 MG/DL (5-40)
[2018-05-18] MEDS: CATHETER FLUSH 10 ML SYR IV SCH ×2 (05:42→13:29)
[2018-05-18 05:43] LABS: ACETAMINOPHEN < 10 UG/ML (10-30)
[2018-05-18] MEDS ORDERED: POTASSIUM CL 10MEQ/50ML IVPB 50 ML IV SCH (06:00)
[2018-05-18] MEDS ORDERED: MAGNESIUM 1 GM/100 ML IVPB 100 ML IV SCH (06:00)
[2018-05-18] MEDS ORDERED: KCL 20 MEQ TAB (K-DUR) PO SCH (06:00)
[2018-05-18] MEDS ORDERED: PANTOPRAZOLE 40 MG (PROTONIX) TAB PO SCH (07:00)
[2018-05-18] MEDS ORDERED: RIVAROXABAN 20 MG TABLET (XARELTO) PO SCH (07:00)
[2018-05-18] MEDS: risperiDONE 1 MG (RisperDAL) TAB PO SCH (08:53)
[2018-05-18 09:00] VITALS: BP 148/85
[2018-05-18] MEDS ORDERED: DILTIAZEM 180 MG (CARDIZEM CD) CAP PO SCH (09:00)
[2018-05-18] MEDS ORDERED: NON-FORMULARY MEDICATION 1 EA EA (Diltiazem HCl (Cartia Xt) 180 MG) PO SCH (09:00)
[2018-05-18] MEDS ORDERED: KCL 10 MEQ TAB (MICRO K) PO ONE (09:00)
[2018-05-18] MEDS: LEVETIRACETAM 1,000 MG (KEPPRA) TABLET PO SCH (09:23)
[2018-05-18] MEDS: DILTIAZEM 125 MG/D5W 100 ML DRIP IV SCH ×2 (13:29)
--- NOTE | 2018-05-18 15:01 | Cardiology Progress Note ---
Cardiology SOAP Progress Note Subjective: Depressed affect. No cardiac symptoms. Objective: I&O/Vital Signs 05/18/18 05/18/18 05/18/18 05/18/18 03:22 04:00 04:00 05:03 Temp 98.2 Pulse 71 67 Resp 20 17 B/P (MAP) Pulse Ox 100 95 97 O2 Delivery Room Air Room Air Room Air 05/18/18 05/18/18 05/18/18 05/18/18 06:00 07:00 07:00 08:00 Pulse 70 71 75 85 Resp 18 10 20 B/P (MAP) O2 Delivery Room Air Room Air Room Air 05/18/18 05/18/18 05/18/18 05/18/18 08:30 09:00 09:00 11:00 Temp 98.7 Pulse 74 89 Resp 24 19 B/P (MAP) 148/85 (106) Pulse Ox 99 96 98 O2 Delivery Room Air Room Air Room Air 05/18/18 05/18/18 05/18/18 05/18/18 12:00 12:15 12:15 13:00 Temp 98.8 Pulse 84 76 Resp 20 B/P (MAP) Pulse Ox 97 99 O2 Delivery Room Air Room Air 05/18/18 05/18/18 13:00 14:00 Pulse 77 89 Resp 18 27 B/P (MAP) Pulse Ox 98 O2 Delivery Room Air Room Air 05/18/18 00:00 Intake Total 2134.0 ml Balance 2134.0 ml Weight (Pounds): 139 Weight (Ounces): 1.0 Weight (Calculated Kilograms): [id number] Constitutional: appears stated age, AAO x 3; No apparent distress; well- developed, well-nourished Respiratory: No accessory muscle use, No respiratory distress, No chest tender , No chest expansion is symmetric; chest is bilaterally symmetric; No lungs clear to percussion; lungs clear to auscultation; No crackles, No rhonchi, No rales, No stridor, No wheezing, No pleural rub, No other Cardiovascular: regular rate-rhythm; No irregularly irregular, No extra beats, No parasternal heave is noted, No JVD, No edema, No bradycardia, No tachycardia , No point of maximal impulse, No cardiac thrills are palpable; S1 and S2; No gallop/S3, No gallop/S4, No diastolic murmur, No systolic murmur, No friction rub, No click, No other Gastrointestional: No tender, No soft, No round, No distended, No pulsatile mass, No organomegaly, No guarding, No rebound, No tenderness, No hernia, No mass, No audible bowel sounds, No abnormal bowel sounds, No abdominal bruits, No spleenomegaly, No other Extremities: No normal range of motion, No non-tender, No normal inspection, No pedal edema, No calf tenderness, No normal capillary refill, No pelvis stable , No calf tenderness, No inflammation, No pedal edema, No slow capillary refill , No swelling, No other, No abrasion, No clubbing, No cyanosis, No ecchymosis, No laceration, No no lower extremity edema bilateral, No significant edema, No tenderness, No wound Neurologic/Psychiatric: no motor/sensory deficits, alert, oriented x 3, depressed affect, power is 5/5 both on sides Skin: No normal color, No warm/dry, No cyanosis, No cool, No diaphoresis, No damp, No ecchymosis, No jaundice, No mottled, No pallor, No rash, No tattoos/ piercings, No ulcerations, No rash on exposed areas, No ulcerations on exposed areas, No other Results/Procedures: Labs Laboratory Tests 05/17/18 16:36: Troponin I < 0.30 05/18/18 04:50: White Blood Count 12.5H, Red Blood Count 4.01L, Hemoglobin 8.9L, Hematocrit 28L , Mean Corpuscular Volume 69L, Mean Corpuscular Hemoglobin 22L, Mean Corpuscular Hemoglobin Concent 32, Red Cell Distribution Width 19.4H, Platelet Count 487H, Mean Platelet Volume 9.5, Neutrophils (%) (Auto) 60, Lymphocytes (% ) (Auto) 26, Monocytes (%) (Auto) 11, Eosinophils (%) (Auto) 2, Basophils (%) ( Auto) 0, Neutrophils # (Auto) 7.5, Lymphocytes # (Auto) 3.3, Monocytes # (Auto) 1.4H, Eosinophils # (Auto) 0.3, Basophils # (Auto) 0.0, Prothrombin Time 15.3H, INR Comment 1.2, Sodium Level 136, Potassium Level 3.5L, Chloride Level 108H, Carbon Dioxide Level 20L, Anion Gap 8, Blood Urea Nitrogen 9, Creatinine 0.61, Estimat Glomerular Filtration Rate > 60, BUN/Creatinine Ratio 15, Glucose Level 101, Calcium Level 9.1, Magnesium Level 1.9, Triglycerides Level 76, Cholesterol Level 132, LDL Cholesterol Direct 93, VLDL Cholesterol 15, HDL Cholesterol 32L, Acetaminophen Level < 10L A/P: Assessment/Dx: Suicide attempt, Tylenol overdose, Previous history of IV drug abuse, Methamphetamine abuse, Atrial fibrillation/SVT, Severe tricuspid regurgitation. Plan: Suicide attempt, Tylenol overdose: Psychiatry consultation. Defer to primary team. Previous history of IV drug abuse, Methamphetamine abuse, Atrial fibrillation/SVT, rate control with Cardizem. Now in sinus rhythm. Oral anticoagulation not recommended at this point in time. Full aspirin is recommended. Severe tricuspid regurgitation: No cardiac surgery at this point in time. Thank you for your consultation. Please call me if you have any questions. Keanu Mahoney MD, FACP, FACC, FSCAI, FHRS, CCDS Interventional Cardiology Cardiac Electrophysiology Vascular Medicine and Endovascular Interventions Whit MAHONEY MD May 18, 2018 15:01
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
--- NOTE | 2018-05-18 15:45 | Discharge Instructions ---
Discharge [facility] Discharge Medications New, Converted or Re-Newed RX: Other (no medication changes) Continued Medications: Acetaminophen (Tylenol Extra Strength) 500 Mg Tablet 8615-4877 MG PO Q6H PRN for PAIN-MILD, TAB TAKES 2-4 (500 MG) TABLETS Calcium Carbonate (Tums Smoothies) 300 Mg Tab.chew 600 MG PO DAILY PRN for INDIGESTION, TAB TAKES 2 (300 MG) TABLETS Cyclobenzaprine HCl (Cyclobenzaprine HCl) 10 Mg Tablet 10 MG PO BID PRN for MUSCLE SPASMS, TAB Digoxin (Digoxin) 125 Mcg Tablet 125 MCG PO DAILY, TAB Diltiazem HCl (Cartia Xt) 180 Mg Cap.er.24h 180 MG PO DAILY, CAP Furosemide (Furosemide) 40 Mg Tablet 20 MG PO BID, TAB TAKES 1/2 (40MG) TABLET Levetiracetam (Levetiracetam) 1,000 Mg Tablet 1000 MG PO BID, TAB Loratadine (Loratadine) 10 Mg Tablet 10 MG PO DAILY, TAB Meclizine HCl (Meclizine HCl) 25 Mg Tablet 25 MG PO DAILY, TAB Metoprolol Tartrate (Metoprolol Tartrate) 25 Mg Tablet 25 MG PO BID, TAB Mirtazapine (Mirtazapine) 30 Mg Tablet 30 MG PO HS, TAB Omeprazole (Omeprazole) 40 Mg Capsule.dr 40 MG PO 1800, CAP Pantoprazole Sodium (Pantoprazole Sodium) 40 Mg Tablet.dr 40 MG PO DAILY, TAB Polyethylene Glycol 3350 (Miralax) 17 Gm Powd.pack 17 GM PO DAILY PRN for CONSTIPATION-2ND LINE, EACH Potassium Chloride (Potassium Chloride) 20 Meq Tab.er.prt 20 MEQ PO 0900,1800, TAB Prazosin HCl (Prazosin HCl) 5 Mg Capsule 5 MG PO HS, CAP Risperidone (Risperidone) 1 Mg Tablet 1 MG PO BID, TAB Rivaroxaban (Xarelto) 20 Mg Tablet 20 MG PO DAILY, TAB Patient Instructions Patient Instructions -avoid all tylenol products -contact case advocate or crisis line or return to ED for suicidal thoughts -follow up as directed with mental health services Goal/Follow Up Appt: Call for appt with PCP in 3-5 days for discharge follow up Follow up with Mental Health as directed Return to The Hospital For: chest pain or pressure, shortness of breath, nausea or vomiting that makes you unable to keep down clear liquids or ice chips for more than 12-24 hours, severe pain uncontrolled by your normal measures, severe worsening of depression or suicidal thoughts Activity & Diet Discharge Diet: Low Sodium Diet Activity as Tolerated: Yes Copy Copies To 1: [facility]/[place] SHAH DO May 18, 2018 15:41
[2018-05-19] MEDS ORDERED: LORA1TAB PO (15:56)
== END 2018-05-18 16:19 | disposition home or self-care (01) | DRG 918 ==
LOC: EDUNIT# 09:03 → ER 09:04 → ICU 11:45
PROVIDERS: ADMIT Family Medicine; ATTEND Family Medicine
DX: T39.1X2A Poisoning by 4-Aminophenol derivatives, intentional self-harm, initial encounter (principal); T43.622A Poisoning by amphetamines, intentional self-harm, initial encounter; I48.0 Paroxysmal atrial fibrillation; I07.1 Rheumatic tricuspid insufficiency; J43.9 Emphysema, unspecified; J45.909 Unspecified asthma, uncomplicated; I10 Essential (primary) hypertension; G40.309 Generalized idiopathic epilepsy and epileptic syndromes, not intractable, without status epilepticus; K21.9 Gastro-esophageal reflux disease without esophagitis; F32.9 Major depressive disorder, single episode, unspecified; F17.210 Nicotine dependence, cigarettes, uncomplicated; N31.9 Neuromuscular dysfunction of bladder, unspecified; Z79.01 Long term (current) use of anticoagulants; Z95.0 Presence of cardiac pacemaker; Z95.2 Presence of prosthetic heart valve; Z99.81 Dependence on supplemental oxygen
CPT/HCPCS: 36415; 71045; 80048; 80053; 80061; 80306; 80320; 80329; 83735; 83874; 83880; 84484; 85025; 85610; 85730; 87081; 93005; 93041; 93306; 96361; 96365; 96367; 96375

== ENCOUNTER 2018-05-19 14:14 | Emergency (ER) | payer MEDICAID ==
[~2018-05-19] VITALS: Ht 157.5 cm; Wt 63.1 kg
[~2018-05-19 14:14] MED LIST changes: +PRAZ5CAP2 PO
--- OUTSIDE RECORDS SUMMARY | 2018-05-19 14:21 | XMS REPORT | Encounter Summary ---
Author Author [facility] Organization [facility] Address Unknown Phone Unavailable Care Team Providers Care Sr Vice President Name Role Phone Janae Leblanc MD Unavailable Nigel Adame MD Unavailable Marisol Leong RN Unavailable Unavailable Betty Phillips MD Unavailable Werner Rodriguez MD PCP Rosita Marr APRN Unavailable Koko Voss MD Unavailable Encounter Details Date Type Department Care Team Description 03/05/2018 Ancillary [facility] Nigel Adame MD Bilateral wrist pain Orders Physicians - Orthopedics [address] [facility] and [facility] [place] [address] [place] [address] [place] [address] [place] [address] Social History Tobacco Use Types [...]
--- OUTSIDE RECORDS SUMMARY | 2018-05-19 14:21 | XMS REPORT | Clinical Summary ---
Author Author [facility] Organization [facility] Address Unknown Phone Unavailable Care Team Providers Care Paint Stock Clerk Name Role Phone Janae Leblanc MD Unavailable [...] in the Health Information Management department at [phone] for further assistance in locating additional records.[facility] Allergies Active Allergy Reactions Severity [...] 36.4 C (97.5 F) 12/16/2014 10:45 AM MANAGER PEOPLE Respiratory Rate - - Oxygen Saturation 95% [...]
--- OUTSIDE RECORDS SUMMARY | 2018-05-19 14:22 | XMS REPORT | Encounter Summary ---
Author Author [facility] Organization [facility] Address Unknown Phone Unavailable Care Team Providers Care Cylinder Grinder Name Role Phone Janae Leblanc MD Unavailable Nigel Adame MD Unavailable Marisol Leong RN Unavailable Unavailable Betty Phillips MD Unavailable Werner Rodriguez MD PCP Rosita Marr APRN Unavailable Koko Voss MD Unavailable Encounter Details Date Type Department Care Team Description 03/05/2018 [facility] Nigel Adame MD Encounter Hospital Radiology [address] [facility] [address] [place] [address] [address] FLOOR [phone] [place] [address] [phone] Social History Tobacco Use Types Packs/Day Years [...]
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
--- OUTSIDE RECORDS SUMMARY | 2018-05-19 14:23 | XMS REPORT ---
Author Author FRANCHESKA HEADLEY Organization [facility] Address [address] [place] [address] Care Team Providers Care [employer] Consultant Name Role Phone FRANCHESKA HEADLEY Unavailable PROBLEMS Type Condition ICD9-CM Code OUR44-RM Code Onset Dates Condition Status SNOMED Code Problem Anxiety F41.9 Active 31322500 Problem Seasonal allergic rhinitis, unspecified allergic rhinitis trigger J30.2 Active 683895264 Problem Other chronic pain G89.29 Active 36432870 Problem Chronic fatigue R53.82 Active 39060363 Problem Seizure disorder G40.909 Active 083734719 Problem Unsteady gait R26.81 Active 86476743 Problem Infection of right eye H44.001 Active 42351580905672800 Problem Lumbago with sciatica, left side M54.42 Active 772907976 Problem Chronic pain syndrome G89.4 Active 946945201 Problem Fibromyalgia M79.7 Active 066315810 Problem Atrial fibrillation, unspecified type I48.91 Active 91277773 Problem Esophagitis, reflux K21.0 Active 278525157 Problem Primary insomnia F51.01 Active 322429148 Problem Edema, due to unspecified malnutrition type, unspecified type R60.9 Active 395438509 Problem Polysubstance (excluding opioids) dependence F19.20 Active 45533474 Problem Congestive heart failure, unspecified congestive heart failure chronicity, unspecified congestive heart failure type I50.9 Active 37145354 Problem COPD (chronic obstructive pulmonary disease) with acute bronchitis J44.0 Active 403990882854390 Problem Unspecified mood [affective] disorder F39 Active 954097481 Problem Major depressive disorder, recurrent episode, severe F33.2 Active 479663897334 Problem Lumbago with sciatica, right side M54.41 Active 520489177 ALLERGIES No Information ENCOUNTERS Encounter Location Date Diagnosis [facility] [address] [facility] [id number] [address] Apr, Lumbago with sciatica, right side M54.41 ; Chronic pain syndrome G89.4 and Primary insomnia F51.01 [facility] [address] [address] Apr, Acute right ankle pain M25.571 [facility] [id number] [place] [address] Apr, [facility] [address] 6[address] Apr, Seasonal allergic rhinitis, unspecified trigger J30.2 and Acute right ankle pain M25.571 [facility] [address] 25071- 8[address] 28 Mar, 2018 Primary insomnia F51.01 and Anxiety F41.9 [facility] [address] 85705- 7022 18 Mar, 2018 [facility] [address] 33140- 8022 14 Mar, 2018 [facility] [address] 8[address]94- 7215 13 Mar, 2018 Lumbago with sciatica, left side M54.42 [facility] [id number] [place] [address] 33722- 1227 Mar, [facility] [id number] [place] [address] 37709- 3603 05 Mar, 2018 Anxiety F41.9 [facility] [id number] [place] [address] 45328- 8352 February, [facility] [address] 44271- 9164 February, Unspecified mood [affective] disorder F39 [facility] [id number] [place] [address] 83298- 4575 February, [facility] [address] 29417- 9524 February, [facility] [id number] [place] [address] 51806 -6287 February, Hordeolum externum of right upper eyelid H00.011 and Paronychia of finger of right hand L03.011 [facility] [id number] [place] [address] 22187- 5865 February, [place] [address] 80309- 1556 February, Primary insomnia F51.01 ; Atrial fibrillation, unspecified type I48.91 ; Unsteady gait R26.81 ; General weakness R53.1 ; Chronic fatigue R53.82 ; Hypokalemia E87.6 and Other chronic pain G89.29 [place] [id number] [place] [address] 76412- 5428 February, [place] [address] 46661- 6319 Jan, Lumbago with sciatica, right side M54.41 [place] [id number] [place] [address] 33596- 2950 Jan, Anxiety F41.9 ; Chronic pain syndrome G89.4 ; Folliculitis L73.9 and Fibromyalgia M79.7 [place] [id number] [place] [address] 66191- 9541 Jan, Lumbago with sciatica, right side M54.41 [place] [id number] [place] [address] 09848- 7480 Dec, [place] [id number] [place] [address] 64597- 3141 Nov, Lumbago with sciatica, right side M54.41 [place] [id number] [place] [address] 52207- 1271 Nov, [place] [address] [place] [address]- 7332 Nov, Unspecified mood [affective] disorder F39 ; Hypokalemia E87.6 and Anemia, unspecified type D64.9 [place] [id number] [place] [address] 19306- 6850 Nov, [place] [address] 58760- 0707 Oct, Lumbago with sciatica, right side M54.41 [facility] [place] [address] 04263 [address]6730 Aug, Congestive heart failure, unspecified congestive heart failure chronicity, unspecified congestive heart failure type I50.9 and Peripheral edema R60.9 [place] [address] 00326- 7143 Aug, Polysubstance (excluding opioids) dependence F19.20 and Lumbago with sciatica, left side M54.42 [place] [id number] [place] [address] 14165- 5396 Aug, [facility] [place] [address] 98545 -5347 Aug, Infection of right eye H44.001 [place] [id number] [place] [address] 35160- 1883 14 Aug, 2017 Congestive heart failure, unspecified congestive heart failure chronicity, unspecified congestive heart failure type I50.9 and Other chronic pain G89.29 [place] [id number] [place] [address] 26368- 9270 Aug, Lumbago with sciatica, right side M54.41 [place] [id number] [place] [address] 59859- 4439 Aug, Lumbago with sciatica, right side M54.41 [place] [address] 11377- 3286 Aug, [facility] [address] [address] Jul, [facility] [id number] [place] [address] 04426- 1488 Jul, COPD (chronic obstructive pulmonary disease) with acute bronchitis J44.0 ; Atrial fibrillation, unspecified type I48.91 ; Polysubstance (excluding opioids) dependence F19.20 ; Congestive heart failure, unspecified congestive heart failure chronicity, unspecified congestive heart failure type I50.9 and Lumbago with sciatica, right side M54.41 [facility] [id number] [place] [address] [id number] Jul, [facility] [id number] [place] [address] 36049- 1824 Jul, Seizure disorder G40.909 [facility] [id number] [place] [address] 86285- 3473 Jul, Lumbago with sciatica, right side M54.41 [facility] [address] [place] [address] 90085- 1143 Jul, [facility] [id number] [place] [address] 34119- 9387 Jun, Congestive heart failure, unspecified congestive heart failure chronicity, unspecified congestive heart failure type I50.9 ; Lumbago with sciatica, right side M54.41 and Other chronic pain G89.29 [facility] [address] [address] 0[address] Jun, [facility] [id number] [place] [address] 78431- 0378 Jun, [facility] [id number] [place] [address] 95819- 4072 May, Lumbago with sciatica, left side M54.42 [facility] [id number] [place] [address] 45134- 2930 May, [facility] [place] [id number] [place] [address] 36257 -6458 May, Unspecified fall, initial encounter W19.XXXA [place] [id number] [place] [address] 51961- 7630 May, Lumbago with sciatica, right side M54.41 [place] [address] 85529- 1378 May, [place] [address] 54269- 4000 May, Bloating R14.0 and Right hip pain M25.551 [place] [address] 69336- 8992 Apr, [place] [address] 20109- 3143 Apr, Lumbago with sciatica, left side M54.42 [place] [address] 19616- 7363 Mar, [facility] [place] [address] 38157 -4342 Mar, Lumbago with sciatica, right side M54.41 [facility] IN [address] [address]4130 Mar, Abdominal distension R14.0 [place] [address] 02776- 0494 Mar, Periumbilical abdominal pain R10.33 and Diarrhea, unspecified type R19.7 [facility] IN [address] [address] February, Seasonal allergic rhinitis, unspecified allergic rhinitis trigger J30.2 ; Acute middle ear effusion, bilateral H65.193 and Lumbago with sciatica, right side M54.41 [place] [id number] [place] [address] 94659- 8495 February, Routine gynecological examination Z01.419 [place] [address] 70919- 7458 Jan, [place] [id number] [place] [address] 37074- 6786 Jan, Atrial fibrillation, unspecified type I48.91 [facility] [address] 84657 -2105 Jan, Lumbago with sciatica, right side M54.41 and Wound, open, toe, initial encounter S91.109A [place] [address] [id number] Jan, [facility] [id number] [place] [address] 23317 -4066 Jan, Acute bilateral low back pain without sciatica M54.5 [place] [id number] [place] [address] 78968- 4197 Dec, Congestive heart failure, unspecified congestive heart failure chronicity, unspecified congestive heart failure type I50.9 [place] [id number] [place] [address] 03819- 9810 Dec, [place] [id number] [place] [address] 49323- 1909 Dec, Thrush, oral B37.0 and Lumbago with sciatica, right side M54.41 [place] [id number] [place] [address] 90238- 5928 Dec, [place] [address] 36263- 5177 Nov, [place] [id number] [place] [address] 89670- 3421 14 Nov, 2016 [place] [address] 51574- 6328 Oct, Polysubstance (excluding opioids) dependence F19.20 ; Other chronic pain G89.29 and Lumbago with sciatica, right side M54.41 [facility] [address] [place] [id number] [place] [address] 55408- 1681 Oct, [facility] [id number] [place] [address] 55112- 8587 Aug, Lumbago with sciatica, right side M54.41 ; Other chronic pain G89.29 and Anxiety F41.9 [facility] [id number] [place] [address] 44909- 7581 Aug, [facility] [id number] [place] [address] 62888- 7736 Aug, [facility] [id number] [place] [address] 04025- 9611 Aug, [facility] [id number] [place] [address] 23980- 7286 Aug, [facility] [id number] [place] [address] 53637- 3495 Aug, [facility] [id number] [place] [address] 34969- 6195 Aug, [facility] [address] [place] [address] 74315- 7897 Jul, Unspecified mood [affective] disorder F39 and Seizure disorder G40.909 [facility] [address] [id number] [place] [address] 98023- 7124 Jul, [facility] [id number] [place] [address] 11620- 3735 Jul, [facility] [address] [id number] [place] [address] 37881- 0783 Jul, Unspecified mood [affective] disorder F39 and Seizure disorder G40.909 [facility] [id number] [address]- 7516 Jul, Polysubstance (excluding opioids) dependence F19.20 ; COPD ( chronic obstructive pulmonary disease) with acute bronchitis J44.0 ; Congestive heart failure, unspecified congestive heart failure chronicity, unspecified congestive heart failure type I50.9 ; Radiculopathy of lumbosacral region M54.17 and Radiculopathy, thoracic region M54.14 [place] [id number] [place] [address] 22913- 1313 Jun, Lumbago M54.5 [place] [id number] [place] [address] 62539- 3032 May, [place] [id number] [place] [address] 85604- 3528 May, [place] [id number] [place] [address] 72049- 7631 May, [place] [id number] [place] [address] 81561- 5824 Apr, COPD (chronic obstructive pulmonary disease) with acute bronchitis J44.0 [place] [id number] [place] [address] 78866- 2454 Apr, Major depressive disorder, recurrent episode, severe F33.2 and Polysubstance (excluding opioids) dependence F19.20 [place] [id number] [place] [address] 87618- 0088 Mar, Major depressive disorder, recurrent episode, severe F33.2 and Polysubstance (excluding opioids) dependence F19.20 [place] [id number] [place] [address] 40424- 2068 Mar, Major depressive disorder, recurrent episode, severe F33.2 and Polysubstance (excluding opioids) dependence F19.20 [place] [address] [address]- 5757 Mar, Major depressive disorder, recurrent episode, severe F33.2 and Polysubstance (excluding opioids) dependence F19.20 [facility] [id number] [place] [address] 41367- 9334 February, Major depressive disorder, recurrent episode, severe F33.2 and Polysubstance (excluding opioids) dependence F19.20 [place] [address] 86469- 5204 February, [place] [address] 13201- 0676 February, COPD (chronic obstructive pulmonary disease) with acute bronchitis J44.0 [facility] [address] 64193 -0335 February, Sore throat J02.9 and Bronchitis J40 [place] [address] 60859- 1625 Jan, COPD (chronic obstructive pulmonary disease) with acute bronchitis J44.0 [place] [address] 59714- 8268 Jan, COPD (chronic obstructive pulmonary disease) with acute bronchitis J44.0 [place] [address] 31929- 3369 Jan, [place] [address] 92817- 6811 Dec, Gastritis K29.70 ; Constipation K59.00 and Lumbago M54.5 [place] [address] 31564- 5003 Dec, COPD (chronic obstructive pulmonary disease) with acute bronchitis J44.0 [place] [address] 99808- 5920 18 Nov, 2015 Major depressive disorder, recurrent episode, severe F33.2 and Polysubstance (excluding opioids) dependence F19.20 [facility] IN [facility] [address] 31021 -8830 Oct, Oral thrush B37.0 and Drug abuse F19.10 [facility] [id number] [place] [address] 52679- 4108 Oct, [facility] [id number] [place] [address] 59281- 8506 Sep, COPD (chronic obstructive pulmonary disease) with acute bronchitis J44.0 ; Esophagitis, reflux K21.0 ; Seizure disorder G40.909 ; Primary insomnia F51.01 ; Edema, due to unspecified malnutrition type, unspecified type R60.9 ; Arthritis M19.90 and Thrush B37.0 [facility] [address] 98482- 9964 Aug, [place] [address] 86477- 1524 Aug, [facility] [address] 79935- 8057 Aug, [facility] [id number] [place] [address] 73580- 9438 Jul, [facility] [id number] [place] [address] 51386- 5537 Jun, [facility] [id number] [place] [address] 88755- 9139 Jun, Counseling on substance use and abuse V65.42 and Obstructive chronic bronchitis, with (acute) exacerbation 491.21 [facility] [id number] [place] [address] 68571- 0900 May, [facility] [address] 90382- 1686 Apr, [facility] [id number] [place] [address] 76731- 1690 Apr, Abdominal pain 789.00 and Back pain 724.5 [place] [address] 33524- 6423 Mar, Back pain 724.5 and Illicit drug use 305.90 [facility] [address] [place] [address] 75463- 4350 February, Onychomycosis 110.1 [facility] [id number] [place] [address] 397584- 7639 February, Breast cancer screening V76.10 [facility] [id number] [place] [address] 73952- 5538 February, [facility] [id number] [place] [address] 37043- 9397 February, [facility] [id number] [place] [address] 04645- 6595 February, Cough 786.2 ; Obstructive chronic bronchitis, with (acute) exacerbation 491.21 ; Vomiting 787.03 ; 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 and Gastritis 535.50 [facility] [id number] [place] [address] 21769- 8922 Jan, [facility] [id number] [place] [address] 92237- 8451 Jan, [facility] [id number] [place] [address] 56354- 1141 24 Dec, 2014 [facility] [address] [place] [address] 40366- 2014 Dec, [facility] [id number] [place] [address] 61587- 0932 Dec, [facility] [id number] [place] [address] 45115- 0316 Dec, [facility] [id number] [place] [address] 36964- 9934 Dec, [facility] [address] [address]- 5529 Dec, [facility] [address] [place] [address]- 9829 Dec, [facility] [address] [id number] [place] [address]- 0710 Dec, [facility] [place] [facility] [address] [id number] [place] [address]- 0736 Dec, [facility] [address] [id number] [place] [address]- 8534 Sep, [facility] [address] [id number] [place] [address]- 4723 Sep, [facility] [address] [id number] [place] [address]- 6307 Sep, [facility] [address] [id number] [place] [address]- 3240 Sep, [facility] [address] [id number] [place] [address]- 5141 Sep, [facility] [address] [id number] [place] [address]- 3346 Sep, [facility] [place] [facility] [address] [id number] [place] [address]- 6821 Sep, [facility] [address] [id number] [place] [address]- 3679 Sep, [facility] [place] [facility] [address] [id number] [place] [address]- 8210 Sep, [facility] [place] [facility] [address] [id number] [place] [address]- 1227 Sep, [facility] [place] [facility] [address] [id number] [place] [address]- 0630 Aug, [facility] [place] [facility] [address] [id number] [place] [address]- 9106 Aug, [facility] [place] [facility] [address] [id number] [place] [address]- 9397 Aug, [facility] [place] [facility] [address] [id number] [place] [address]- 2126 Aug, [facility] [place] [facility] [address] [id number] [place] [address]- 7036 Jul, [facility] [place] [facility] [address] [id number] [place] [address]- 6104 Jul, [facility] [place] [facility] [address] [id number] [place] [address]- 9829 Jun, [facility] [place] [facility] [address] [id number] [place] [address]- 8300 Jun, [facility] [place] [facility] [address] [id number] [place] [address]- 5075 May, [facility] [place] [facility] [address] [id number] [place] [address]- 1656 May, [facility] [place] [facility] [address] [id number] [place] [address]- 5817 May, [facility] [place] [facility] [address] [id number] [place] [address]- 3696 May, [facility] [place] [facility] [address] [id number] [place] [address]- 4378 May, [facility] [place] [facility] [address] [id number] [place] [address]- 5145 May, [facility] [place] [facility] [address] [id number], [place] [address]- 4566 Apr, [facility] [place] [facility] [address] [id number] [place] [address]- 2017 Apr, [facility] [place] [facility] [address] [id number] [place] [address]- 9853 Apr, [facility] [place] [facility] [address] [id number] [place]- 5976 Apr, [facility] [place] [facility] [address] [id number], [place] [address]- 6723 February, [facility] [address] [id number] [place] [address]- 1507 February, [facility] [place] [facility] [address] [id number] [place] [address]- 1393 Oct, [facility] [address] [facility] [id number] [place] [address] Oct, [facility] [place] [facility] [address] [id number] [place] [address] Oct, [facility] [address] [facility] [id number] [place] Oct, [facility] [address] [facility] [id number] [place] [address] Sep, [facility] [address] [facility] [id number], [place] [address] Sep, [facility] [place] [facility] [address] [facility] [id number] [place] [address] Sep, [facility] [address] [id number] [place] [address] Sep, [facility] [place] [facility] [address] [id number] [address] Aug, [facility] [address] [facility] [id number], [place] [address] Aug, [facility] [place] [facility] [address] [id number], [place] [address] Aug, [facility] [place] [facility] [address] [id number], [place] [address] Aug, [facility] [place] [facility] [address] [facility] [id number], [place] [address] Jul, [facility] [place] [facility] [address] [facility] [id number], [place] [address] Jul, [facility] [place] [facility] [address] [id number] [place] [address] Jul, [facility] [place] [facility] [address] [id number] [place] [address] Jul, [facility] [place] [facility] [address] [id number] [place] [address] Jul, [facility] [place] [facility] [address] [id number] [place] [address] Jul, [facility] [place] [facility] [address] [id number] [place] [address] Jul, [facility] [place] [facility] [address] [id number] [place] [address] Jul, [facility] [place] [facility] [address] [id number] [place] [address] Jul, [facility] [place] [facility] [address] [id number] [place] [address] Jul, [facility] [place] [facility] [address] [id number] [place] [address] Jun, [facility] [place] [facility] [address] [address] [id number] [place] [address] May, [facility] [place] [facility] [address] [id number] [place] [address] Apr, [facility] [place] [facility] [address] [id number] [place] [address] Apr, [facility] [place] [facility] [address] [id number] [place] [address] Apr, [facility] [place] [facility] [address] [id number] [place] [address] Mar, [facility] [place] [facility] [address] [id number] [place] [address] Mar, [facility] [place] [facility] [address] [id number] [place] [address] Mar, [facility] [address] [facility] [id number][place] [address] Mar, [facility] [address] [facility] [id number], [place] [address] Mar, [facility] [address] [facility] [id number], [place] [address] Sep, [facility] [address] [id number], [place] [address] February, [facility] [address] [facility] [id number], [place] [address] Jan, IMMUNIZATIONS No Known Immunizations SOCIAL HISTORY Never Assessed REASON FOR VISIT Refill request PLAN OF CARE VITAL SIGNS MEDICATIONS Medication Instructions Dosage Frequency Start Date End Date Duration Status Potassium Chloride ER 20 meq Orally twice a day 1 tablet with food 12h Active RESULTS No Results PROCEDURES No [...] bleeding 2015 Hospitalization History A fib with [facility] 02/06/17 Hospitalization History Altered mental status, lethargy-[facility] 07/10/17 Hospitalization History Chest pain-[facility] 08/05/17 Hospitalization History [facility] 10/2017 Hospitalization History Low potassium, A fib 01/2018 Hospitalization History Head injury 03/2018
[2018-05-19 14:37] LABS: BASOPHILS % (AUTO) 0 % (0-10); EOSINOPHILS # (AUTO) 0.2 10^3/uL (0.0-0.3); EOSINOPHILS % (AUTO) 2 % (0-10); HEMATOCRIT 30 % (35-52); HEMOGLOBIN 9.6 G/DL (11.5-16.0); LYMPHOCYTES # (AUTO) 2.5 X 10^3 (1.0-4.0); LYMPHOCYTES % (AUTO) 22 % (12-44); MEAN CORPUSCULAR HEMOGLOBIN 22 PG (25-34); MEAN CORPUSCULAR HGB CONC 32 G/DL (32-36); MEAN CORPUSCULAR VOLUME 68 FL (80-99); MEAN PLATELET VOLUME 9.8 FL (7.4-10.4); MONOCYTES % (AUTO) 9 % (0-12); NEUTROPHILS # (AUTO) 7.6 X 10^3 (1.8-7.8); NEUTROPHILS % (AUTO) 67 % (42-75); PLATELET COUNT 554 10^3/uL (130-400); RED BLOOD COUNT 4.43 10^6/uL (4.35-5.85); RED CELL DISTRIBUTION WIDTH 19.7 % (10.0-14.5); WHITE BLOOD COUNT 11.3 10^3/uL (4.3-11.0)
[2018-05-19] MEDS ORDERED: LORazepam INJ 2 MG/ML (ATIVAN) VIAL IVP ONE ×2 (14:45→15:30)
[2018-05-19 14:50] LABS: BUN/CREATININE RATIO 14; CARBON DIOXIDE 17 MMOL/L (21-32); CHLORIDE 111 MMOL/L (98-107); CREATININE SERUM 0.64 MG/DL (0.60-1.30); POTASSIUM 3.4 MMOL/L (3.6-5.0); SODIUM 139 MMOL/L (135-145)
[2018-05-19 14:51] LABS: ALANINE AMINOTRANSFERASE 21 U/L (0-55); ALBUMIN 3.7 GM/DL (3.2-4.5); ALKALINE PHOSPHATASE 112 U/L (40-136); BILIRUBIN,TOTAL 0.4 MG/DL (0.1-1.0); CALCIUM 8.4 MG/DL (8.5-10.1); GFR ESTIMATED > 60; GLUCOSE 100 MG/DL (70-105)
--- NOTE | 2018-05-19 15:25 | Diagnostic Imaging Report ---
EXAM: Chest 1 view, AP/PA only. INDICATION: Chest pain. COMPARISON: Chest radiograph 05/17/2018. FINDINGS: Cardiomegaly. Normal central pulmonary vascularity. Cardiac pacer. Sternotomy. Tavares rods traversing the thoracic spine. No focal pulmonary opacity, pleural effusion or pneumothorax. No acute osseous findings. IMPRESSION: Stable exam. No acute cardiopulmonary findings. Dictated by: Dictated on workstation # [id number]
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
[2018-05-19] MEDS ORDERED: LORA1TAB PO (15:56)
[2018-05-19 16:44] VITALS: BP 125/74
== END 2018-05-19 16:44 | disposition home or self-care (01) ==
LOC: EDUNIT# 14:14 → ER 14:16
DX: F41.9 Anxiety disorder, unspecified (principal); F51.5 Nightmare disorder; R07.9 Chest pain, unspecified; R45.851 Suicidal ideations; J43.9 Emphysema, unspecified; I10 Essential (primary) hypertension; G40.309 Generalized idiopathic epilepsy and epileptic syndromes, not intractable, without status epilepticus; K21.9 Gastro-esophageal reflux disease without esophagitis; F32.9 Major depressive disorder, single episode, unspecified; I48.91 Unspecified atrial fibrillation; F12.10 Cannabis abuse, uncomplicated; F15.10 Other stimulant abuse, uncomplicated; Z91.5 Personal history of self-harm; Z80.49 Family history of malignant neoplasm of other genital organs; Z88.8 Allergy status to other drugs, medicaments and biological substances; Z90.81 Acquired absence of spleen; Z87.19 Personal history of other diseases of the digestive system; Z95.0 Presence of cardiac pacemaker; Z95.2 Presence of prosthetic heart valve; Z77.22 Contact with and (suspected) exposure to environmental tobacco smoke (acute) (chronic); Z90.710 Acquired absence of both cervix and uterus; Z90.89 Acquired absence of other organs; Z88.2 Allergy status to sulfonamides; Z79.01 Long term (current) use of anticoagulants; Z88.0 Allergy status to penicillin; Z88.1 Allergy status to other antibiotic agents
CPT/HCPCS: 36415; 71045; 80053; 83880; 84484; 85025; 93041; 96374; 96376

== ENCOUNTER 2018-06-20 18:57 | Emergency (ER) | payer MEDICAID ==
[~2018-06-20] VITALS: Ht 157.5 cm; Wt 63.1 kg
[~2018-06-20 18:57] MED LIST changes: +LORA1TAB PO
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
[2018-06-20 19:29] LABS: BILIRUBIN,URINE NEGATIVE (NEGATIVE); CLARITY,URINE CLEAR; COLOR,URINE YELLOW; GLUCOSE, URINE (UA) NEGATIVE (NEGATIVE); KETONES,URINE NEGATIVE (NEGATIVE); LEUKOCYTE ESTERASE ,URINE NEGATIVE (NEGATIVE); NITRITE,URINE NEGATIVE (NEGATIVE); PH,URINE 7 (5-9); PROTEIN,URINE NEGATIVE (NEGATIVE); UROBILINOGEN,URINE NORMAL (NORMAL)
[2018-06-20 19:38] LABS: BACTERIA,URINE TRACE /HPF; WBC,URINE 0-2 /HPF; YEAST,URINE FEW /HPF
--- NOTE | 2018-06-20 19:48 | Diagnostic Imaging Report ---
INDICATION: Dysuria. PA chest, supine and upright abdominal images were obtained. FINDINGS: Lungs are clear. Bowel gas pattern is normal. Patient has Tavares rods in the thoracolumbar spine. There are no pathologic masses or calcifications seen. IMPRESSION: No acute abnormalities in the abdomen. Dictated by: Dictated on workstation # [id number]
[2018-06-20] MEDS: BISACODYL 10 MG SUPP (DULCOLAX) PR ONE (20:11)
[2018-06-20 20:19] VITALS: BP 110/69
== END 2018-06-20 20:18 | disposition home or self-care (01) ==
LOC: EDUNIT# 18:57 → ER 18:58
DX: K59.00 Constipation, unspecified (principal); R14.0 Abdominal distension (gaseous); J43.9 Emphysema, unspecified; I48.91 Unspecified atrial fibrillation; G40.909 Epilepsy, unspecified, not intractable, without status epilepticus; I10 Essential (primary) hypertension; F17.210 Nicotine dependence, cigarettes, uncomplicated; F41.9 Anxiety disorder, unspecified; F90.9 Attention-deficit hyperactivity disorder, unspecified type; F43.10 Post-traumatic stress disorder, unspecified; F31.9 Bipolar disorder, unspecified; F12.10 Cannabis abuse, uncomplicated; F15.10 Other stimulant abuse, uncomplicated; K21.9 Gastro-esophageal reflux disease without esophagitis; Z87.19 Personal history of other diseases of the digestive system; Z90.89 Acquired absence of other organs; Z90.81 Acquired absence of spleen; Z98.890 Other specified postprocedural states; Z91.5 Personal history of self-harm; Z86.14 Personal history of Methicillin resistant Staphylococcus aureus infection; Z80.49 Family history of malignant neoplasm of other genital organs; Z98.51 Tubal ligation status; Z95.0 Presence of cardiac pacemaker; Z90.710 Acquired absence of both cervix and uterus; Z88.8 Allergy status to other drugs, medicaments and biological substances; Z88.2 Allergy status to sulfonamides; Z88.0 Allergy status to penicillin; Z79.01 Long term (current) use of anticoagulants
CPT/HCPCS: 74022; 81000

== ENCOUNTER 2018-07-05 19:37 | Emergency (ER) | payer MEDICAID ==
[~2018-07-05] VITALS: Ht 160 cm; Wt 62.1 kg
[2018-07-05] MEDS ORDERED: NITROGLYCERIN 0.4 MG SL TABS BTL 25'S SL ONE (19:43)
[2018-07-05] MEDS ORDERED: FAMOTIDINE 20 MG (PEPCID) TABLET PO STA (19:46)
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
[2018-07-05] MEDS ORDERED: NITROGLYCERIN 0.4 MG SL TABS BTL 25'S SL PRN (20:00)
[2018-07-05] MEDS ORDERED: ANTACID SUSP 30 ML UDC (MYLANTA) PO ONE (20:00)
[2018-07-05] MEDS ORDERED: LIDOCAINE 2% VISCOUS 15 ML UDC PO ONE (20:00)
[2018-07-05 20:01] LABS: BILIRUBIN,URINE NEGATIVE (NEGATIVE); CLARITY,URINE CLEAR; COLOR,URINE YELLOW; GLUCOSE, URINE (UA) NEGATIVE (NEGATIVE); KETONES,URINE NEGATIVE (NEGATIVE); LEUKOCYTE ESTERASE ,URINE 2+ (NEGATIVE); NITRITE,URINE NEGATIVE (NEGATIVE); PH,URINE 6 (5-9); PROTEIN,URINE NEGATIVE (NEGATIVE); UROBILINOGEN,URINE NORMAL (NORMAL)
[2018-07-05 20:15] LABS: AMPHETAMINE SCREEN, URINE NEGATIVE (NEGATIVE); BARBITURATE SCREEN URINE NEGATIVE (NEGATIVE); BENZODIAZEPINES SCREEN URINE NEGATIVE (NEGATIVE); CANNABINOID SCREEN, URINE POSITIVE (NEGATIVE); COCAINE SCREEN URINE NEGATIVE (NEGATIVE); METHADONE STAT NEGATIVE (NEGATIVE); METHAMPHETAMINE SCREEN URINE S NEGATIVE (NEGATIVE); OPIATE SCREEN URINE POSITIVE (NEGATIVE); OXYCODONE STAT NEGATIVE (NEGATIVE); PROPOXYPHENE STAT NEGATIVE (NEGATIVE); TRICYCLIC ANTIDEPRESSANTS SCRE POSITIVE (NEGATIVE)
[2018-07-05 20:18] LABS: BACTERIA,URINE FEW /HPF; SQUAMOUS EPITHELIAL CELL,UR 25-50 /HPF
[2018-07-05 20:21] LABS: BASOPHILS # (AUTO) 0.1 10^3/uL (0.0-0.1); BASOPHILS % (AUTO) 1 % (0-10); EOSINOPHILS # (AUTO) 0.3 10^3/uL (0.0-0.3); EOSINOPHILS % (AUTO) 3 % (0-10); HEMATOCRIT 30 % (35-52); HEMOGLOBIN 9.6 G/DL (11.5-16.0); LYMPHOCYTES # (AUTO) 4.5 X 10^3 (1.0-4.0); LYMPHOCYTES % (AUTO) 41 % (12-44); MEAN CORPUSCULAR HEMOGLOBIN 23 PG (25-34); MEAN CORPUSCULAR HGB CONC 32 G/DL (32-36); MEAN CORPUSCULAR VOLUME 71 FL (80-99); MEAN PLATELET VOLUME 9.4 FL (7.4-10.4); MONOCYTES # (AUTO) 1.4 X 10^3 (0.0-1.0); MONOCYTES % (AUTO) 12 % (0-12); NEUTROPHILS # (AUTO) 4.7 X 10^3 (1.8-7.8); NEUTROPHILS % (AUTO) 43 % (42-75); PLATELET COUNT 494 10^3/uL (130-400); RED BLOOD COUNT 4.21 10^6/uL (4.35-5.85); RED CELL DISTRIBUTION WIDTH 22.5 % (10.0-14.5); WHITE BLOOD COUNT 10.9 10^3/uL (4.3-11.0)
[2018-07-05 20:33] LABS: INR 1.7 (0.8-1.4); PROTHROMBIN TIME PATIENT 19.6 SEC (12.2-14.7)
[2018-07-05 20:39] LABS: ALANINE AMINOTRANSFERASE 14 U/L (0-55); ALKALINE PHOSPHATASE 136 U/L (40-136); BILIRUBIN,TOTAL 0.3 MG/DL (0.1-1.0); BUN/CREATININE RATIO 12; CALCIUM 8.9 MG/DL (8.5-10.1); CARBON DIOXIDE 20 MMOL/L (21-32); CHLORIDE 106 MMOL/L (98-107); CREATININE SERUM 0.66 MG/DL (0.60-1.30); GFR ESTIMATED > 60; GLUCOSE 102 MG/DL (70-105); LIPASE 20 U/L (8-78); MAGNESIUM 2.3 MG/DL (1.8-2.4); POTASSIUM 3.9 MMOL/L (3.6-5.0); SODIUM 136 MMOL/L (135-145); TOTAL PROTEIN 7.3 GM/DL (6.4-8.2)
--- NOTE | 2018-07-05 20:41 | Diagnostic Imaging Report ---
INDICATION: Chest pain. COMPARISON: 06/20/2018. EXAMINATION: Single view of the chest was obtained. FINDINGS: Enlargement of the heart, unchanged from prior. Post interventional changes, stable, with no pneumothorax, vascular congestion or evidence for edema. IMPRESSION: Cardiomegaly and postinterventional change, otherwise negative. Dictated by: Dictated on workstation # [id number]
--- NOTE | 2018-07-05 20:44 | Diagnostic Imaging Report ---
INDICATION: Constipation FINDINGS: There is elevated colonic fecal load from the cecum through the descending colon. No abnormal fecal mass at the rectosigmoid vault. No air-containing dilated small bowel. IMPRESSION: Colonic constipation without evidence for rectal impaction. No small bowel dilatation. Dictated by: Dictated on workstation # [id number]
[2018-07-05 20:45] LABS: MYOGLOBIN SERUM 11.9 NG/ML (10.0-92.0)
[2018-07-05 21:40] VITALS: BP 133/92
== END 2018-07-05 21:40 | disposition home or self-care (01) ==
LOC: EDUNIT# 19:37 → ER 19:38
DX: R07.9 Chest pain, unspecified (principal); K59.00 Constipation, unspecified; R00.2 Palpitations; J43.9 Emphysema, unspecified; I48.91 Unspecified atrial fibrillation; I10 Essential (primary) hypertension; K21.9 Gastro-esophageal reflux disease without esophagitis; G40.909 Epilepsy, unspecified, not intractable, without status epilepticus; F90.9 Attention-deficit hyperactivity disorder, unspecified type; F41.9 Anxiety disorder, unspecified; F43.10 Post-traumatic stress disorder, unspecified; F31.9 Bipolar disorder, unspecified; F12.10 Cannabis abuse, uncomplicated; F15.10 Other stimulant abuse, uncomplicated; F17.210 Nicotine dependence, cigarettes, uncomplicated; Z90.89 Acquired absence of other organs; Z87.19 Personal history of other diseases of the digestive system; Z91.5 Personal history of self-harm; Z80.8 Family history of malignant neoplasm of other organs or systems; Z90.49 Acquired absence of other specified parts of digestive tract; Z98.890 Other specified postprocedural states; Z90.710 Acquired absence of both cervix and uterus; Z95.0 Presence of cardiac pacemaker; Z98.51 Tubal ligation status; Z88.0 Allergy status to penicillin; Z95.2 Presence of prosthetic heart valve; Z88.2 Allergy status to sulfonamides; Z88.8 Allergy status to other drugs, medicaments and biological substances; Z79.01 Long term (current) use of anticoagulants
CPT/HCPCS: 36415; 71045; 74018; 80053; 80162; 80306; 81000; 83690; 83735; 83874; 83880; 84484; 85025; 85610; 85730; 93005; 93041

== ENCOUNTER 2018-07-13 14:53 | Emergency (ER) | payer MEDICAID ==
[~2018-07-13] VITALS: Ht 160 cm; Wt 63.5 kg
--- OUTSIDE RECORDS SUMMARY | 2018-07-13 14:59 | XMS REPORT | Referral Summary ---
Author Author [facility] Organization [facility] Address Unknown Phone Unavailable Care Team Providers Care Hims Manager Name Role Phone No PCP, Pt States PCP Encounter VC Date(s): 06/11/18 - 06/12/18 [facility] [address] [place], [place] [address] Encounter Diagnosis Seizure disorder (Discharge Diagnosis) - 06/11/18 Acute headache (Discharge Diagnosis) - 06/11/18 Discharge Disposition: -Psychiatric Facility Attending Physician: Ashley Mosher DO Admitting Physician: Ashley Mosher DO Vital Signs Most recent to 1 oldest [Reference Range]: Temperature Oral 37.1 degC [35.8-37.3 degC] (06/11/18 9:19 PM) Peripheral Pulse 69 bpm Rate [60-100 bpm] (06/11/18 11:39 PM) Heart Rate Monitored 72 bpm [60-100 bpm] (06/11/18 10:15 PM) Respiratory Rate 18 br/min [14-20 br/min] (06/11/18 11:39 PM) Blood Pressure 117/87 mmHg [90-140/60-90 mmHg] (06/11/18 11:39 PM) Mean Arterial 80 mmHg Pressure, Cuff (06/11/18 10:15 PM) SpO2 97 % (06/11/18 11:39 PM) Problem List Condition Effective Dates Status Health Status Informant Acute Active pain(Confirmed) Anxiety(Confirmed) Active patient Atrial Active patient flutter(Confirmed) Bipolar 1 Active patient disorder(Confirmed) Pacemaker(Confirmed) Active patient Depression(Confirmed Active patient ) No Chronic Problems Active Schizophrenia(Confir Active patient med) SVT Active patient (supraventricular tachycardia)(Confirm ed) Allergies, Adverse Reactions, Alerts Substance Reaction Severity Status erythromycin Active penicillin Active sulfa drugs Active Compazine Active Zofran Active Reglan Active Darvocet-N 50 Active Phenergan Active Medications Cartia XT 180 mg/24 hours oral capsule, extended release 180 mg 1 caps, Oral, Daily, 0 Refill(s) Start Date: 06/11/18 Status: Ordered cyclobenzaprine 10 mg oral tablet 10 mg 1 tabs, Oral, TID Start Date: 06/11/18 Status: Ordered digoxin 125 mcg (0.125 mg) oral tablet 125 mcg 1 tabs, Oral, Daily, 0 Refill(s) Start Date: 06/11/18 Status: Ordered furosemide 40 mg oral tablet 80 mg 2 tabs, Oral, Daily, 1230 Start Date: 06/11/18 Status: Ordered levETIRAcetam 1000 mg oral tablet 1,000 mg 1 tabs, Oral, BID Start Date: 06/11/18 Status: Ordered loratadine 10 mg oral tablet 10 mg 1 tabs, Oral, Daily Start Date: 06/11/18 Status: Ordered meclizine 25 mg oral tablet 25 mg 1 tabs, Oral, Daily, 0 Refill(s) Start Date: 06/11/18 Status: Ordered Metoprolol Tartrate 25 mg oral tablet 25 mg 1 tabs, Oral, BID Start Date: 06/11/18 Status: Ordered neomycin/polymyxin B/hydrocortisone 0.35%-10,000 units/mL-1% ophthalmic suspension 2 drops, Eye-Right, QID, Started on 06-07-18, 0 Refill(s) Start Date: 06/11/18 Status: Ordered omeprazole 40 mg oral delayed release capsule 40 mg 1 caps, Oral, Daily Start Date: 06/11/18 Status: Ordered potassium chloride 20 mEq oral tablet, extended release 20 mEq 1 tabs, Oral, BID, 0 Refill(s) Start Date: 06/11/18 Status: Ordered prazosin 5 mg oral capsule 5 mg 1 caps, Oral, Bedtime (once a day), 0 Refill(s) Start Date: 06/11/18 Status: Ordered ProAir HFA 90 mcg/inh inhalation aerosol 2 puffs, Inhalation, q4hr, as needed for wheezing, 0 Refill(s) Start Date: 06/11/18 Status: Ordered risperiDONE 1 mg oral tablet 1 mg 1 tabs, Oral, BID Start Date: 06/11/18 Status: Ordered Tylenol Regular Strength 325 mg oral tablet 650 mg 2 tabs, Oral, TID Start Date: 06/11/18 Status: Ordered Xarelto 20 mg oral tablet 20 mg 1 tabs, Oral, Daily Start Date: 06/11/18 Status: Ordered Results No data available for this section Immunizations No data available for this section Procedures Procedure Date Related Diagnosis Body Site Status Appendectomy Completed Cholecystectomy Completed Tricuspid valve operation Completed Social History Social History Type Response Smoking Status Current every day smoker; Tobacco use per day: 1 Pack entered on: 10/12/16 Assessment and Plan No data available for this section
--- OUTSIDE RECORDS SUMMARY | 2018-07-13 14:59 | XMS REPORT | Referral Summary ---
Author Author [facility] Organization [facility] Address Unknown Phone Unavailable Care Team Providers Care Division Toll Wire Chief Name Role Phone No PCP, Pt States PCP Encounter VC Date(s): 06/10/18 - 06/10/18 [facility] [address], [place] [address] Discharge Disposition: 07-Left Without Being Seen Vital Signs No data available for this section Problem List Condition Effective Dates Status Health Status Informant Anxiety(Confirmed) Active patient Atrial Active patient flutter(Confirmed) Bipolar 1 Active patient disorder(Confirmed) Pacemaker(Confirmed) Active patient Depression(Confirmed Active patient ) Schizophrenia(Confir Active patient med) SVT Active patient [...] No data available for this section Procedures No data available for this section Social History Social History Type Response Smoking Status Current every day smoker; Tobacco use per day: 1 Pack entered on: 10/12/16 Assessment and Plan No data available for this section
--- OUTSIDE RECORDS SUMMARY | 2018-07-13 14:59 | XMS REPORT | Clinical Summary ---
Author Author [facility] Organization [facility] Address Unknown Phone Unavailable Care Team Providers Care Open Soaper Tender Name Role Phone Janae Leblanc MD Unavailable [...] in the Health Information Management department at [phone] for further assistance in locating additional records.[facility] Allergies Active Allergy Reactions Severity [...] 36.4 C (97.5 F) 12/16/2014 10:45 AM [employer] Respiratory Rate - - Oxygen Saturation 95% [...] 2008 INFLUENZA VACCINE 07/22/2018 02/06/2013, 09/02/2012 Results Not on filefrom Last 3 Months
--- OUTSIDE RECORDS SUMMARY | 2018-07-13 15:00 | XMS REPORT ---
Author Author ARLEY Rodriguez [facility] Address [address] [place] [address] Care Team Providers Care Gang Mower Operator Name Role Phone ARLEY Rodriguez Unavailable PROBLEMS Type Condition ICD9-CM Code KEV51-EI Code Onset Dates Condition Status SNOMED Code Problem Other chronic pain G89.29 Active 02674746 Problem Lumbago with sciatica, left side M54.42 Active 742164165 Problem Seasonal allergic rhinitis, unspecified allergic rhinitis trigger J30.2 Active 361799596 Problem Methamphetamine abuse F15.10 Active 018196321 Problem Primary insomnia F51.01 Active 119769422 Problem Unsteady gait R26.81 Active 83021491 Problem Seizure disorder G40.909 Active 584445110 Problem Fibromyalgia M79.7 Active 639707569 Problem Infection of right eye H44.001 Active [id number] Problem Chronic fatigue R53.82 Active 73149948 Problem Chronic pain syndrome G89.4 Active 628594121 Problem Esophagitis, reflux K21.0 Active 250178405 Problem COPD (chronic obstructive pulmonary disease) with acute bronchitis J44.0 Active [id number] Problem Edema, due to unspecified malnutrition type, unspecified type R60.9 Active 622676349 Problem Atrial fibrillation, unspecified type I48.91 Active 93465950 Problem Congestive heart failure, unspecified congestive heart failure chronicity, unspecified congestive heart failure type I50.9 Active 32409085 Problem Unspecified mood [affective] disorder F39 Active 340194077 Problem Major depressive disorder, recurrent episode, severe F33.2 Active 659710756199 Problem Lumbago with sciatica, right side M54.41 Active 033868455 Problem Polysubstance (excluding opioids) dependence F19.20 Active 51572328 Problem Anxiety F41.9 Active 59572602 ALLERGIES Substance Reaction Event Type Date Status Saphris Unknown Drug Allergy May, Active Tylenol/Codeine #3 Unknown Drug Allergy May, Active Phenergan Unknown Drug Allergy May, Active Keflex Unknown Drug Allergy May, Active Inapsine Unknown Drug Allergy May, Active Geodon Unknown Drug Allergy May, Active Erythromycin Unknown Drug Allergy May, Active Darvocet-N 50 Unknown Drug Allergy May, Active Compazine Unknown Drug Allergy May, Active Cephalexin Unknown Drug Allergy May, Active Bactrim Unknown Drug Allergy May, Active ENCOUNTERS Encounter Location Date Diagnosis [facility] [id number] [place] [address] 35193- 1724 Jun, [place] [address] 71627- 6372 Jun, Lumbago with sciatica, right side M54.41 [place] [id number] [place] [address] 12952- 9452 May, Anxiety F41.9 [place] [address] 21368- 3687 May, [facility] [id number] [place] [address] 30923 -0322 May, Methamphetamine abuse F15.10 [facility] [id number] [place] [address] 19920- 5968 May, [place] [id number] [place] [address] 28903- 7870 Apr, [facility] [id number] [place] [address] 67588- 0424 Apr, Lumbago with sciatica, right side M54.41 ; Chronic pain syndrome G89.4 and Primary insomnia F51.01 [facility] [id number] [place] [address] 65211 -2434 Apr, Acute right ankle pain M25.571 [facility] [id number] [place] [address] 16338 -2671 Apr, [facility] [id number] [place] [address] 83127 -0692 07 Apr, 2018 Seasonal allergic rhinitis, unspecified trigger J30.2 and Acute right ankle pain M25.571 [facility] [id number] [place] [address] 73264- 8161 28 Mar, 2018 Primary insomnia F51.01 and Anxiety F41.9 [facility] [address] 53791- 0944 Mar, [place] [address] 91098- 0428 Mar, [place] [id number] [place] [address] 57592- 7701 13 Mar, 2018 Lumbago with sciatica, left side M54.42 [place] [address] 03070- 5156 Mar, [facility] [id number] [place] [address] 57192- 9126 Mar, Anxiety F41.9 [place] [address] 41282- 9614 February, [facility] [id number] [place] [address] 43400- 6449 February, Unspecified mood [affective] disorder F39 [facility] [id number] [place] [address] 45561- 1052 February, [facility] [id number] [place] [address] 11664- 3131 February, [facility] [id number] [place] [address] 47559 -5647 February, Hordeolum externum of right upper eyelid H00.011 and Paronychia of finger of right hand L03.011 [facility] [id number] [place] [address] 66859- 7224 February, [place] [id number] [place] [address] 18973- 3433 February, Primary insomnia F51.01 ; Atrial fibrillation, unspecified type I48.91 ; Unsteady gait R26.81 ; General weakness R53.1 ; Chronic fatigue R53.82 ; Hypokalemia E87.6 and Other chronic pain G89.29 [place] [address] 04192- 6995 February, [place] [address] 40168- 6975 Jan, Lumbago with sciatica, right side M54.41 [place] [address] 08149- 9067 Jan, Anxiety F41.9 ; Chronic pain syndrome G89.4 ; Folliculitis L73.9 and Fibromyalgia M79.7 [place] [id number] [place] [address] 91619- 0725 Jan, Lumbago with sciatica, right side M54.41 [place] [address] 15192- 4275 Dec, [place] [id number] [place] [address] 38001- 2217 Nov, Lumbago with sciatica, right side M54.41 [place] [id number] [place] [address] 91899- 7130 Nov, [place] [id number] [place] [address] 11190- 9475 Nov, Unspecified mood [affective] disorder F39 ; Hypokalemia E87.6 and Anemia, unspecified type D64.9 [place] [id number] [place] [address] 19079- 7181 Nov, [place] [address] 02045- 1647 Oct, Lumbago with sciatica, right side M54.41 [facility] [id number] [place] [address] 90753 -0542 Aug, Congestive heart failure, unspecified congestive heart failure chronicity, unspecified congestive heart failure type I50.9 and Peripheral edema R60.9 [place] [address] 90645- 9321 Aug, Polysubstance (excluding opioids) dependence F19.20 and Lumbago with sciatica, left side M54.42 [place] [address] 02776- 8069 Aug, [facility] [address] 70048 -3998 Aug, Infection of right eye H44.001 [place] [address] 85339- 3044 Aug, Congestive heart failure, unspecified congestive heart failure chronicity, unspecified congestive heart failure type I50.9 and Other chronic pain G89.29 [place] [id number] [place] [address] 09368- 0601 Aug, Lumbago with sciatica, right side M54.41 [place] [id number] [place] [address] 45451- 8349 Aug, Lumbago with sciatica, right side M54.41 [place] [id number] [place] [address] 78965- 5720 Aug, [place] [address] 98846- 2032 Jul, [place] [id number] [place] [address] 18299- 5300 Jul, COPD (chronic obstructive pulmonary disease) with acute bronchitis J44.0 ; Atrial fibrillation, unspecified type I48.91 ; Polysubstance (excluding opioids) dependence F19.20 ; Congestive heart failure, unspecified congestive heart failure chronicity, unspecified congestive heart failure type I50.9 and Lumbago with sciatica, right side M54.41 [facility] [id number] [place] [address] [id number] Jul, [facility] [id number] [place] [address] 04669- 4251 Jul, Seizure disorder G40.909 [facility] [id number] [place] [address] 06697- 6856 Jul, Lumbago with sciatica, right side M54.41 [place] [id number] [place] [address] 28974- 0486 Jul, [facility] [id number] [place] [address] 09309- 0557 Jun, Congestive heart failure, unspecified congestive heart failure chronicity, unspecified congestive heart failure type I50.9 ; Lumbago with sciatica, right side M54.41 and Other chronic pain G89.29 [facility] [id number] [place] [address] 14440- 3948 Jun, [facility] [id number] [place] [address] 62123- 2742 Jun, [facility] [id number] [place] [address] 53816- 0580 May, Lumbago with sciatica, left side M54.42 [facility] [id number] [place] [address] 61641- 0168 May, [facility] [id number] [place] [address] 42321 -1570 May, Unspecified fall, initial encounter W19.XXXA [facility] [id number] [place] [address] 36465- 0315 May, Lumbago with sciatica, right side M54.41 [place] [id number] [place] [address] 08947- 3520 May, [place] [address] 20974- 1367 May, Bloating R14.0 and Right hip pain M25.551 [place] [address] 23350- 7137 Apr, [place] [address] 73526- 7340 Apr, Lumbago with sciatica, left side M54.42 [place] [address] 03325- 9087 Mar, [facility] [place] [address] 14182 -3602 Mar, Lumbago with sciatica, right side M54.41 [facility] [place] [address] 89821 -9954 Mar, Abdominal distension R14.0 [place] [address] 97370- 7243 Mar, Periumbilical abdominal pain R10.33 and Diarrhea, unspecified type R19.7 [facility] [place] [id number] [place] [address] 73990 -9387 February, Seasonal allergic rhinitis, unspecified allergic rhinitis trigger J30.2 ; Acute middle ear effusion, bilateral H65.193 and Lumbago with sciatica, right side M54.41 [place] [id number] [place] [address] 24180- 2819 February, Routine gynecological examination Z01.419 [place] [address] 39050- 1044 Jan, [place] [id number] [place] [address] 31398- 1232 Jan, Atrial fibrillation, unspecified type I48.91 [facility] [id number] [place] [address] 15483 -3716 Jan, Lumbago with sciatica, right side M54.41 and Wound, open, toe, initial encounter S91.109A [facility] [id number] [place] [address] [id number] Jan, [facility] [address] 62255 -9788 15 Jan, 2017 Acute bilateral low back pain without sciatica M54.5 [place] [address] 90496- 0159 Dec, Congestive heart failure, unspecified congestive heart failure chronicity, unspecified congestive heart failure type I50.9 [place] [id number] [place] [address] 51638- 6647 Dec, [facility] [address] 01178- 2314 Dec, Thrush, oral B37.0 and Lumbago with sciatica, right side M54.41 [place] [id number] [place] [address] 27091- 5275 Dec, [facility] [id number] [place] [address] 39151- 8377 Nov, [facility] [address] 78314- 8333 Nov, [facility] [address] 54721- 2068 Oct, Polysubstance (excluding opioids) dependence F19.20 ; Other chronic pain G89.29 and Lumbago with sciatica, right side M54.41 [facility] [id number] [place] [address] 66882- 3224 Oct, [facility] [address] 86616- 4136 Aug, Lumbago with sciatica, right side M54.41 ; Other chronic pain G89.29 and Anxiety F41.9 [facility] [id number] [place] [address] 33771- 6616 Aug, [facility] [id number] [place] [address] 09720- 7569 Aug, [facility] [id number] [place] [address] 17452- 1829 Aug, [facility] [id number] [place] [address] 15173- 9214 Aug, [facility] [id number] [place] [address] 14399- 3203 Aug, [facility] [id number] [place] [address] 04554- 0225 Aug, [facility] [id number] [place] [address] 59334- 8440 Jul, Unspecified mood [affective] disorder F39 and Seizure disorder G40.909 [facility] [id number] [place] [address] 97006- 1878 Jul, [facility] [id number] [place] [address] 04045- 4173 Jul, [facility] [id number] [place] [address] 75270- 3310 Jul, Unspecified mood [affective] disorder F39 and Seizure disorder G40.909 [facility] [id number] [place] [address] 27267- 5552 Jul, Polysubstance (excluding opioids) dependence F19.20 ; COPD ( chronic obstructive pulmonary disease) with acute bronchitis J44.0 ; Congestive heart failure, unspecified congestive heart failure chronicity, unspecified congestive heart failure type I50.9 ; Radiculopathy of lumbosacral region M54.17 and Radiculopathy, thoracic region M54.14 [facility] [address] [address]- 8715 Jun, Lumbago M54.5 [facility] [address] [address]- 4076 May, [facility] [id number] [place] [address] 79776- 5962 May, [facility] [id number] [place] [address] 48966- 0073 May, [facility] [id number] [place] [address] 66119- 1561 Apr, COPD (chronic obstructive pulmonary disease) with acute bronchitis J44.0 [facility] [address] [address]- 5642 Apr, Major depressive disorder, recurrent episode, severe F33.2 and Polysubstance (excluding opioids) dependence F19.20 [facility] [address] [place] [address] 21714- 7843 Mar, Major depressive disorder, recurrent episode, severe F33.2 and Polysubstance (excluding opioids) dependence F19.20 [facility] [address] [address]- 2658 Mar, Major depressive disorder, recurrent episode, severe F33.2 and Polysubstance (excluding opioids) dependence F19.20 [facility] [address] [address]- 9113 Mar, Major depressive disorder, recurrent episode, severe F33.2 and Polysubstance (excluding opioids) dependence F19.20 [place] [address] [address]- 4473 February, Major depressive disorder, recurrent episode, severe F33.2 and Polysubstance (excluding opioids) dependence F19.20 [facility] [address] [place] [address] 28416- 2217 February, [facility] [id number] [place] [address] 51483- 4154 February, COPD (chronic obstructive pulmonary disease) with acute bronchitis J44.0 [facility] [id number] [place] [address] 14595 -9881 February, Sore throat J02.9 and Bronchitis J40 [facility] [address] 70001- 3440 Jan, COPD (chronic obstructive pulmonary disease) with acute bronchitis J44.0 [place] [address] 45800- 1241 Jan, COPD (chronic obstructive pulmonary disease) with acute bronchitis J44.0 [place] [address] 33165- 2571 Jan, [facility] [address] 32095- 1707 Dec, Gastritis K29.70 ; Constipation K59.00 and Lumbago M54.5 [place] [address] 93693- 6978 Dec, COPD (chronic obstructive pulmonary disease) with acute bronchitis J44.0 [facility] [address] 40776- 3186 Nov, Major depressive disorder, recurrent episode, severe F33.2 and Polysubstance (excluding opioids) dependence F19.20 [facility] [id number] [place] [address] 51498 -5786 Oct, Oral thrush B37.0 and Drug abuse F19.10 [facility] [address] 54413- 3766 Oct, [facility] [address] 64987- 4077 Sep, COPD (chronic obstructive pulmonary disease) with acute bronchitis J44.0 ; Esophagitis, reflux K21.0 ; Seizure disorder G40.909 ; Primary insomnia F51.01 ; Edema, due to unspecified malnutrition type, unspecified type R60.9 ; Arthritis M19.90 and Thrush B37.0 [facility] [id number] [place] [address] 37770- 2838 Aug, [facility] [address] 74108- 5785 Aug, [facility] [address] 09424- 0664 Aug, [place] [address] 87566- 3938 Jul, [facility] [id number] [place] [address] 42854- 3768 Jun, [facility] [address] 94437- 1678 Jun, Counseling on substance use and abuse V65.42 and Obstructive chronic bronchitis, with (acute) exacerbation 491.21 [place] [address] 92800- 2060 May, [facility] [id number] [place] [address] 26645- 0815 Apr, [facility] [id number] [place] [address] 69439- 8168 Apr, Abdominal pain 789.00 and Back pain 724.5 [place] [id number] [place] [address] 23913- 1336 Mar, Back pain 724.5 and Illicit drug use 305.90 [place] [id number] [place] [address] 37593- 8901 February, Onychomycosis 110.1 [place] [id number] [place] [address] 58294- 7023 February, Breast cancer screening V76.10 [facility] [id number] [address]- 8787 February, [facility] [address] [address]- 5792 February, [facility] [address] [address]- 1036 February, Cough 786.2 ; Obstructive chronic bronchitis, with (acute) exacerbation 491.21 ; Vomiting 787.03 ; 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 and Gastritis 535.50 [facility] [address] [address]- 9864 Jan, [facility] [address] [address]- 8138 Jan, [facility] [address], [place] [address]- 8026 Dec, [facility] [address] [address]- 3591 Dec, [facility] [address] [address]- 0306 Dec, [facility] [address] [address]- 6769 Dec, [facility] [address] [address]- 2170 Dec, [facility] [address] [address]- 9522 Dec, [facility] [address], [place] [address]- 7360 Dec, [facility] [address], [place] [address]- 9451 Dec, [facility] [id number] 9878 Dec, [facility] [id number] [place] [address]- 3761 Sep, [facility] [place] [facility] [address] [id number] [place] [address]- 4133 Sep, [facility] [place] [facility] [address] [id number] [place] [address]- 5508 Sep, [facility] [place] [facility] [address] [id number] [place] 1461 Sep, [facility] [place] [facility] [address] [id number] [place] [address]- 8194 Sep, [facility] [place] [facility] [address] [id number] [place] [address]- 3906 Sep, [facility] [place] [facility] [address] [id number] [place] [address]- 5886 Sep, [facility] [place] [facility] [address] [id number] [place] [address]- 3483 Sep, [facility] [place] [facility] [address] [id number] [place] [address]- 9449 Sep, [facility] [place] [facility] [address] [id number] [place] [address]- 6949 Sep, [facility] [place] [facility] [address] [facility] [id number] [place] [address]- 9228 Aug, [facility] [place] [facility] [address] [id number] [place] [address]- 1693 Aug, [facility] [place] [facility] [address] [id number] [place] [address]- 5289 Aug, [facility] [place] [facility] [address] [id number] [place] [address]- 9891 Aug, [facility] [place] [facility] [address] [id number] [place] [address]- 6726 Jul, [facility] [place] [facility] [address] [id number] [place] [address]- 6299 Jul, [facility] [place] [facility] [address] [id number] [place] [address]- 5657 Jun, [facility] [place] [facility] [address] [id number] [place] [address]- 2293 Jun, [facility] [place] [facility] [address] [id number] [place] [address]- 2158 May, [facility] [place] [facility] [address] [id number] [place] [address]- 7165 May, [facility] [place] [facility] [address] [id number] [place] [address]- 9895 May, [facility] [place] [facility] [address] [id number] [place] [address]- 0472 May, [facility] [place] [facility] [address] [id number] [place] [address]- 9939 May, [facility] [place] [facility] [address] [id number] [place] [address]- 8447 May, [facility] [place] [facility] [address] [id number] [place] [address] Apr, [facility] [place] [facility] [address] [id number] [place] [address] Apr, [facility] [place] [facility] [address] [id number] [place] [address] Apr, [facility] [place] [facility] [address] [id number] [place] [address] Apr, [facility] [place] [facility] [address] [id number] [place] [address] February, [facility] [place] [facility] [address] [id number] [place] [address] February, [facility] [place] [facility] [address] [id number] [place] [address] Oct, [facility] [place] [facility] [address] [id number], [place] [address] Oct, [facility] [place] [facility] [address] [id number] [place] [address] Oct, [facility] [place] [facility] [address] [id number], [place] [address] Oct, [facility] [place] [facility] [address] [id number] [place] [address] Sep, [facility] [place] [facility] [address] [id number] [place] [id number] Sep, [facility] [place] [facility] [address] [id number] [place] [address] Sep, [facility] [place] [facility] [address] [id number] [place] [address] Sep, [facility] [place] [facility] [address] [id number] [place] [address] Aug, [facility] [place] [facility] [address] [id number] [place] [address] Aug, [facility] [place] [facility] [address] [id number], [place] [address] Aug, [facility] [place] [facility] [address] [id number], [place] [address] Aug, [facility] [place] [facility] [address] [id number], [place] [address] Jul, [facility] [place] [facility] [address] [id number], [place] [address] Jul, [facility] [place] [facility] [address] [id number], [place] [address] Jul, [facility] [place] [facility] [address] [id number], [place] [address] Jul, [facility] [place] [facility] [address] [id number] [place] [address] Jul, [facility] [place] [facility] [address] [id number] [place] [address] Jul, [facility] [place] [facility] [address] [id number] [place] [address] Jul, [facility] [place] [facility] [address] [id number] [place] [address] Jul, [facility] [place] [facility] [address] [id number] [place] [address] Jul, [facility] [place] [facility] [address] [id number] [place] [address] Jul, [facility] [place] [facility] [address] [id number] [place] [address] Jun, [facility] [place] [facility] [address] [id number] [place] [address] May, [facility] [place] [facility] [address] [id number] [place] [address] Apr, [facility] [place] [facility] [address] [id number] [place] [address] Apr, [facility] [place] [facility] [address] [id number] [place] [address] Apr, [facility] [place] [facility] [address] [id number] [place] [address] Mar, [facility] [place] [facility] [address] [id number] [place] [address] Mar, [facility] [place] [facility] [address] [id number] [place] [address] Mar, [facility] [place] [facility] [address] [id number] [place] [address] Mar, [facility] [place] [facility] [address] [id number] [place] [address] Mar, [facility] [place] [facility] [address] [id number] [place] [address] Sep, [facility] [address] [facility] [id number] [place] [address] February, [facility] [address] [facility] [id number], [place] [address] Jan, IMMUNIZATIONS No Known Immunizations SOCIAL HISTORY Never Assessed REASON FOR VISIT reports that 4 days ago she was shooting up meth. started breaking out in hives and put baking soda et water on her skin. now her skin feels like it is on fire. feels like her tongue is swollen. asael, reports she has been smoking marijuana. she ahs also been taking tylenol #3 et xanax...neither are her own RX PLAN OF CARE Activity Details Follow Up prn Reason: VITAL SIGNS Height 64 in 2018-05-31 Weight 135.6 lbs 2018-05-31 Temperature 98.2 degrees Fahrenheit 2018-05-31 Heart Rate 72 bpm 2018-05-31 Respiratory Rate 18 2018-05-31 Oximetry on room air:97 % 2018-05-31 BMI 23.27 kg/m2 2018-05-31 Blood pressure systolic 110 mmHg 2018-05-31 Blood pressure diastolic 68 mmHg 2018-05-31 MEDICATIONS Medication Instructions Dosage Frequency Start Date End Date Duration Status Omeprazole 40 MG Orally at bedtime 1 capsule Active Polyethylene Glycol 3350 17 gm/dose Orally 2 times a day 1 packet mixed with 8 ounces of fluid 12h Active Metoprolol Tartrate 25 MG Orally Twice a day 1 tablet with food 12h Active Cartia XT 180 MG Orally Once a day 1 capsule 24h Active Risperdal 1 MG Orally 2 times a day 1 tablet 12h Jan, 30 day(s ) Active Potassium Chloride ER 20 MEQ Orally twice a day 1 tablet with food 12h Active Loratadine 10 MG Orally Once a day 1 tablet 24h 30 day(s) Active Keppra 1000 MG Orally every 12 hrs 1 tablet 12h 90 Active Meclizine HCl 25 MG Orally once daily as needed TAKE ONE TABLET BY MOUTH EVERY DAY NEEDED FOR DIZZINESS 30 Active Albuterol Sulfate HFA 108 (90 Base) MCG/ACT Inhalation every 6 hrs 2 puffs as needed 6h Active Prazosin HCl 5 mg Orally Once a day 1 capsule at bedtime 24h 30 Active Furosemide 20 MG Orally twice a day 1 tablet 12h Active Xarelto 20 MG Orally Once a day 1 tablet with food 24h Active Digoxin 125 MCG TAKE ONE TABLET BY MOUTH EVERY DAY 90 Active Cyclobenzaprine HCl 10 mg Orally 2 times a day, deliver to [facility] at [facility] 1 tablet as needed Jun, Active RESULTS No Results PROCEDURES No Known [...] bleeding 2015 Hospitalization History A fib with [facility] 02/06/17 Hospitalization History Altered mental status, lethargy-[facility] 07/10/17 Hospitalization History Chest pain-[facility] 08/05/17 Hospitalization History [facility] 10/2017 Hospitalization History Low potassium, A fib 01/2018 Hospitalization History Head injury 03/2018
--- OUTSIDE RECORDS SUMMARY | 2018-07-13 15:00 | XMS REPORT ---
Author Author FRANCHESKA HEADLEY Organization [facility] Address [address] [place] [address] Care Team Providers Care Probation Agent Name Role Phone FRANCHESKA HEADLEY Unavailable PROBLEMS Type Condition ICD9-CM Code LXF30-RX Code Onset Dates Condition Status SNOMED Code Problem Other chronic pain G89.29 Active 15369245 Problem Lumbago with sciatica, left side M54.42 Active 026774387 Problem Seasonal allergic rhinitis, unspecified allergic rhinitis trigger J30.2 Active 919892059 Problem Methamphetamine abuse F15.10 Active 472961185 Problem Primary insomnia F51.01 Active 144485306 Problem Unsteady gait R26.81 Active 55055168 Problem Seizure disorder G40.909 Active 803561474 Problem Fibromyalgia M79.7 Active 099874722 Problem Infection of right eye H44.001 Active 74394002039516020 Problem Chronic fatigue R53.82 Active 54950284 Problem Chronic pain syndrome G89.4 Active 298373428 Problem Esophagitis, reflux K21.0 Active 894107927 Problem COPD (chronic obstructive pulmonary disease) with acute bronchitis J44.0 Active 878095371187803 Problem Edema, due to unspecified malnutrition type, unspecified type R60.9 Active 032366290 Problem Atrial fibrillation, unspecified type I48.91 Active 69993169 Problem Congestive heart failure, unspecified congestive heart failure chronicity, unspecified congestive heart failure type I50.9 Active 92460525 Problem Unspecified mood [affective] disorder F39 Active 154394993 Problem Major depressive disorder, recurrent episode, severe F33.2 Active 274399832763 Problem Lumbago with sciatica, right side M54.41 Active 148874098 Problem Polysubstance (excluding opioids) dependence F19.20 Active 93409177 Problem Anxiety F41.9 Active 95554189 ALLERGIES No Information ENCOUNTERS Encounter Location Date Diagnosis [facility] [address] [facility] [id number] [address] Jun, [facility] [address] [id number] [place] [address] 98490- 9388 Jun, Lumbago with sciatica, right side M54.41 [facility] [id number] [place] [address] 85163- 3121 May, Anxiety F41.9 [facility] [address] 8[address]74- 4094 May, [facility] [id number] [place] [address] 75435 -4820 May, Methamphetamine abuse F15.10 [facility] [address] 57939- 8927 May, [facility] [address] 97974- 8473 Apr, [facility] [address] 21347- 8508 Apr, Lumbago with sciatica, right side M54.41 ; Chronic pain syndrome G89.4 and Primary insomnia F51.01 [facility] [address] 79623 -9173 Apr, Acute right ankle pain M25.571 [facility] [place] [id number] [place] [address] 44853 -9999 Apr, [facility] [address] 38110 -1357 Apr, Seasonal allergic rhinitis, unspecified trigger J30.2 and Acute right ankle pain M25.571 [facility] [address] 15305- 1603 Mar, Primary insomnia F51.01 and Anxiety F41.9 [facility] [id number] [place] [address] 00816- 6991 Mar, [facility] [address] [id number] [address] 4440 14 Mar, 2018 [facility] [id number] [place] [address] 25702- 5463 13 Mar, 2018 Lumbago with sciatica, left side M54.42 [facility] [id number] [place] [address] 25448- 1769 Mar, [facility] [id number] [place] [address] 66520- 9481 Mar, Anxiety F41.9 [facility] [id number] [place] [address] 18872- 2544 February, [facility] [id number] [place] [address] 14686- 0500 February, Unspecified mood [affective] disorder F39 [facility] [id number] [place] [address] 26159- 6108 February, [facility] [id number] [place] [address] 60648- 1273 February, [facility] [id number] [place] [address] 70210 -3823 February, Hordeolum externum of right upper eyelid H00.011 and Paronychia of finger of right hand L03.011 [facility] [address] [address] 8879 February, [facility] [id number] [place] [address] 84458- 9725 February, Primary insomnia F51.01 ; Atrial fibrillation, unspecified type I48.91 ; Unsteady gait R26.81 ; General weakness R53.1 ; Chronic fatigue R53.82 ; Hypokalemia E87.6 and Other chronic pain G89.29 [facility] [address] [id number] [address] 0808 February, [facility] [address] [place] [address] [address] [address] 7411 Jan, Lumbago with sciatica, right side M54.41 [place] [address] 00663- 4180 Jan, Anxiety F41.9 ; Chronic pain syndrome G89.4 ; Folliculitis L73.9 and Fibromyalgia M79.7 [place] [address] 38023- 2419 Jan, Lumbago with sciatica, right side M54.41 [place] [address] 79388- 8180 Dec, [place] [address] 49318- 5419 Nov, Lumbago with sciatica, right side M54.41 [place] [address] 49230- 8393 Nov, [place] [address] 43552- 6579 Nov, Unspecified mood [affective] disorder F39 ; Hypokalemia E87.6 and Anemia, unspecified type D64.9 [place] [id number] [place] [address] 85085- 1435 Nov, [place] [address] [address] [id number] [place] [address] 44535- 7719 Oct, Lumbago with sciatica, right side M54.41 [facility] [id number] [place] [address] 37537 -3829 Aug, Congestive heart failure, unspecified congestive heart failure chronicity, unspecified congestive heart failure type I50.9 and Peripheral edema R60.9 [facility] [id number] [place] [address] 33338- 9743 17 Aug, 2017 Polysubstance (excluding opioids) dependence F19.20 and Lumbago with sciatica, left side M54.42 [facility] [id number] [place] [address] 68872- 6758 Aug, [facility] [id number] [place] [address] 32723 -4518 Aug, Infection of right eye H44.001 [facility] [id number] [place] [address] 17798- 3263 Aug, Congestive heart failure, unspecified congestive heart failure chronicity, unspecified congestive heart failure type I50.9 and Other chronic pain G89.29 [facility] [id number] [place] [address] 88734- 1719 Aug, Lumbago with sciatica, right side M54.41 [facility] [id number] [place] [address] 29793- 3859 Aug, Lumbago with sciatica, right side M54.41 [facility] [id number] [place] [address] 02515- 8257 Aug, [facility] [id number] [place] [address] 45913- 8433 Jul, [facility] [id number] [place] [address] 19594- 6865 Jul, COPD (chronic obstructive pulmonary disease) with acute bronchitis J44.0 ; Atrial fibrillation, unspecified type I48.91 ; Polysubstance (excluding opioids) dependence F19.20 ; Congestive heart failure, unspecified congestive heart failure chronicity, unspecified congestive heart failure type I50.9 and Lumbago with sciatica, right side M54.41 [facility] [id number] [place] [address] [id number] Jul, [facility] [id number] [place] [address] 02367- 4709 Jul, Seizure disorder G40.909 [facility] [id number] [place] [address] 62433- 5433 Jul, Lumbago with sciatica, right side M54.41 [facility] [id number] [place] [address] 69884- 0604 Jul, [facility] [id number] [place] [address] 09281- 1133 Jun, Congestive heart failure, unspecified congestive heart failure chronicity, unspecified congestive heart failure type I50.9 ; Lumbago with sciatica, right side M54.41 and Other chronic pain G89.29 [facility] [id number] [place] [address] 99202- 5573 Jun, [facility] [id number] [place] [address] 22676- 8947 Jun, [facility] [id number] [place] [address] 24371- 8146 May, Lumbago with sciatica, left side M54.42 [facility] [id number] [place] [address] 82906- 9672 May, [facility] [id number] [place] [address] 17868 -1324 May, Unspecified fall, initial encounter W19.XXXA [facility] [id number] [place] [address] 16619- 8836 May, Lumbago with sciatica, right side M54.41 [facility] [id number] [place] [address] 00883- 4390 May, [facility] [id number] [place] [address] 21627- 0149 May, Bloating R14.0 and Right hip pain M25.551 [facility] [id number] [place] [address] 15931- 8734 Apr, [facility] [id number] [place] [address] 16543- 8043 Apr, Lumbago with sciatica, left side M54.42 [place] [id number] [place] [address] 71639- 8428 Mar, [facility] [place] [address] 15171 -7238 Mar, Lumbago with sciatica, right side M54.41 [facility] [place] [address] 80945 -1329 Mar, Abdominal distension R14.0 [place] [address] 24024- 4805 Mar, Periumbilical abdominal pain R10.33 and Diarrhea, unspecified type R19.7 [facility] [place] [address] 87639 -0291 February, Seasonal allergic rhinitis, unspecified allergic rhinitis trigger J30.2 ; Acute middle ear effusion, bilateral H65.193 and Lumbago with sciatica, right side M54.41 [place] [address] 20856- 6587 February, Routine gynecological examination Z01.419 [place] [address] 44041- 3267 Jan, [place] [address] 90201- 4558 Jan, Atrial fibrillation, unspecified type I48.91 [facility] [place] [id number] [place] [address] 69008 -6661 Jan, Lumbago with sciatica, right side M54.41 and Wound, open, toe, initial encounter S91.109A [place] [address] [id number] Jan, [facility] [place] [address] 24104 -8612 Jan, Acute bilateral low back pain without sciatica M54.5 [facility] [id number] [place] [address] 57165- 7957 Dec, Congestive heart failure, unspecified congestive heart failure chronicity, unspecified congestive heart failure type I50.9 [facility] [id number] [place] [address] 55870- 8658 Dec, [facility] [id number] [place] [address] 08766- 4343 Dec, Thrush, oral B37.0 and Lumbago with sciatica, right side M54.41 [facility] [id number] [place] [address] 19030- 5738 Dec, [facility] [id number] [place] [address] 46993- 3208 Nov, [facility] [id number] [place] [address] 60111- 4949 Nov, [facility] [id number] [place] [address] 64470- 0793 Oct, Polysubstance (excluding opioids) dependence F19.20 ; Other chronic pain G89.29 and Lumbago with sciatica, right side M54.41 [facility] [id number] [place] [address] 33938- 6922 Oct, [facility] [id number] [place] [address] 51444- 3460 Aug, Lumbago with sciatica, right side M54.41 ; Other chronic pain G89.29 and Anxiety F41.9 [facility] [id number] [place] [address] 39413- 9833 Aug, [facility] [id number] [place] [address] 77582- 4110 Aug, [facility] [id number] [place] [address] 11948- 1017 Aug, [facility] [address] [address]- 2431 Aug, [facility] [id number] [place] [address] 31438- 9998 Aug, [facility] [id number] [place] [address] 74942- 4669 Aug, [facility] [id number] [place] [address] 36985- 0743 Jul, Unspecified mood [affective] disorder F39 and Seizure disorder G40.909 [facility] [id number] [place] [address] 20811- 4227 Jul, [facility] [id number] [place] [address] 79942- 2766 Jul, [facility] [id number] [place] [address] 36457- 0048 Jul, Unspecified mood [affective] disorder F39 and Seizure disorder G40.909 [facility] [id number] [place] [address] 20076- 7807 Jul, Polysubstance (excluding opioids) dependence F19.20 ; COPD ( chronic obstructive pulmonary disease) with acute bronchitis J44.0 ; Congestive heart failure, unspecified congestive heart failure chronicity, unspecified congestive heart failure type I50.9 ; Radiculopathy of lumbosacral region M54.17 and Radiculopathy, thoracic region M54.14 [facility] [id number] [place] [address] 64123- 5653 Jun, Lumbago M54.5 [facility] [id number] [place] [address] 08312- 6277 May, [facility] [id number] [place] [address] 61292- 6878 May, [facility] [id number] [place] [address] 91321- 9467 May, [facility] [id number] [place] [address] 07042- 8075 Apr, COPD (chronic obstructive pulmonary disease) with acute bronchitis J44.0 [facility] [address] [id number] [place] [address] 17681- 9440 Apr, Major depressive disorder, recurrent episode, severe F33.2 and Polysubstance (excluding opioids) dependence F19.20 [facility] [address] 81408- 6327 Mar, Major depressive disorder, recurrent episode, severe F33.2 and Polysubstance (excluding opioids) dependence F19.[address] 63467- 4252 Mar, Major depressive disorder, recurrent episode, severe F33.2 and Polysubstance (excluding opioids) dependence F19.20 [facility] [address] 73522- 3118 Mar, Major depressive disorder, recurrent episode, severe F33.2 and Polysubstance (excluding opioids) dependence F19.20 [place] [id number] [place] [address] 06584- 8034 February, Major depressive disorder, recurrent episode, severe F33.2 and Polysubstance (excluding opioids) dependence F19.20 [facility] [id number] [place] [address] 32335- 7650 February, [facility] [id number] [place] [address] 69813- 6496 February, COPD (chronic obstructive pulmonary disease) with acute bronchitis J44.0 [facility]ALK IN [facility] [id number] [place] [address] 38129 -3905 February, Sore throat J02.9 and Bronchitis J40 [facility] [address] [place] [id number] [place] [address] 27660- 4013 Jan, COPD (chronic obstructive pulmonary disease) with acute bronchitis J44.0 [facility] [address] 94485- 9309 19 Jan, 2016 COPD (chronic obstructive pulmonary disease) with acute bronchitis J44.0 [facility] [address] 36791- 3885 14 Jan, 2016 [place] [address] 95586- 3566 Dec, Gastritis K29.70 ; Constipation K59.00 and Lumbago M54.5 [place] [address] 66744- 5190 Dec, COPD (chronic obstructive pulmonary disease) with acute bronchitis J44.0 [place] [address] 08237- 0823 Nov, Major depressive disorder, recurrent episode, severe F33.2 and Polysubstance (excluding opioids) dependence F19.20 [facility] [address] 43647 -7098 Oct, Oral thrush B37.0 and Drug abuse F19.[address] 46926- 5457 Oct, [address] 52912- 4649 Sep, COPD (chronic obstructive pulmonary disease) with acute bronchitis J44.0 ; Esophagitis, reflux K21.0 ; Seizure disorder G40.909 ; Primary insomnia F51.01 ; Edema, due to unspecified malnutrition type, unspecified type R60.9 ; Arthritis M19.90 and Thrush B37.0 [place] [address] 73701- 0816 Aug, [place] [address] 00598- 5097 Aug, [place] [address] 69375- 2546 Aug, [facility] [address] [address]- 6533 Jul, [facility] [id number] [place] [address] 61731- 9676 Jun, [facility] [id number] [place] [address] 89940- 3467 Jun, Counseling on substance use and abuse V65.42 and Obstructive chronic bronchitis, with (acute) exacerbation 491.21 [place] [id number] [place] [address] 96550- 4405 May, [place] [address] [place] [id number] [place] [address] 22115- 9656 Apr, [place] [address] [address] [id number] [place] [address] 76779- 0771 Apr, Abdominal pain 789.00 and Back pain 724.5 [place] [id number] [place] [address] 44306- 8229 Mar, Back pain 724.5 and Illicit drug use 305.90 [place] [address] [place] [id number] [place] [address] 56034- 3954 February, Onychomycosis 110.1 [place] [id number] [place] [address] 42783- 5904 February, Breast cancer screening V76.10 [place] [id number] [place] [address] 75785- 8331 February, [place] [id number] [place] [address] 36295- 0632 February, [place] [id number] [place] [address] 60291973- 8112 February, Cough 786.2 ; Obstructive chronic bronchitis, with (acute) exacerbation 491.21 ; Vomiting 787.03 ; 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 and Gastritis 535.50 [place] [address] [id number] [place] [address]- 1818 14 Jan, 2015 [facility] [place] [facility] [address] [id number] [place] [address]- 4662 13 Jan, 2015 [facility] [place] [facility] [address] [id number] [place] [address]- 2472 24 Dec, 2014 [facility] [place] [facility] [address] [id number] [place] [address]- 4023 20 Dec, 2014 [facility] [place] [facility] [address] [id number] [place] [address]- 4613 20 Dec, 2014 [facility] [place] [facility] [address] [id number] [place] [address]- 6491 13 Dec, 2014 [facility] [place] [facility] [address] [id number] [place] [address]- 1283 13 Dec, 2014 [facility] [place] [facility] [address] [id number] [place] [address]- 0238 12 Dec, 2014 [facility] [place] [facility] [address] [id number] [place] [address]- 6782 Dec, [facility] [place] [facility] [address] [id number] [place] [address]- 9903 Dec, [facility] [place] [facility] [address] [id number] [place] [address]- 6207 Dec, [facility] [place] [facility] [address] [id number] [place] [address]- 3426 Sep, [facility] [place] [facility] [address] [id number] [place] [address]- 9490 Sep, [facility] [place] [facility] [address] [id number] [place] 3643 Sep, [facility] [place] [facility] [address] [id number] [place] 9706 Sep, [facility] [place] [facility] [address] [id number] [place] [address]- 6994 Sep, [facility] [place] [facility] [address] [id number] [place] [address]- 0754 Sep, [facility] [place] [facility] [address] [id number] [place] [address]- 5324 Sep, [facility] [place] [facility] [address] [id number] [place] [address]- 9398 Sep, [facility] [place] [facility] [address] [id number] [place] [address]- 4762 Sep, [facility] [place] [facility] [address] [id number] [place] [address]- 5922 Sep, [facility] [place] [facility] [address] [id number] [place] [address]- 1745 Aug, [facility] [place] [facility] [address] [id number] [place] [address]- 8279 Aug, [facility] [place] [facility] [address] [id number] [address]- 6242 Aug, [facility] [place] [facility] [address] [id number] [place] [address]- 8630 Aug, [facility] [place] [facility] [address] [id number] [place] [address]- 3922 Jul, [facility] [place] [facility] [address] [id number], [place] [address] Jul, [facility] [place] [facility] [address] [id number], [place] [address] Jun, [facility] [place] [facility] [address] [id number] [place] [address] Jun, [facility] [place] [facility] [address] [id number], [place] [address] May, [facility] [place] [facility] [address] [id number], [place] [address] May, [facility] [place] [facility] [address] [id number] [place] [address] May, [facility] [place] [facility] [address] [id number] [place] [address] May, [facility] [place] [facility] [address] [id number] [place] [address] May, [facility] [place] [facility] [address] [id number] [place] [address] May, [facility] [place] [facility] [address] [id number] [place] [address] Apr, [facility] [place] [facility] [address] [id number] [place] [address] Apr, [facility] [place] [facility] [address] [id number] [place] [address] Apr, [facility] [place] [facility] [address] [id number] [place] [address] Apr, [facility] [place] [facility] [address] [id number] [place] [address] February, [facility] [place] [facility] [address] [id number] [place] [address] February, [facility] [place] [facility] [address] [id number] [place] [address] Oct, [facility] [place] [facility] [address] [id number] [place] [address] Oct, [facility] [place] [facility] [address] [id number] [place] [address] Oct, [facility] [place] [facility] [address] [id number] [place] [address] Oct, [facility] [place] [facility] [address] [id number] [place] [address] Sep, [facility] [place] [facility] [address] [id number] [place] [address] Sep, [facility] [place] [facility] [address] [id number] [place] [address]- [address] Sep, [facility] [place] [facility] [address] [id number] [place] [address] Sep, [facility] [place] [facility] [address] [id number] [place] [address] Aug, [facility] [place] [facility] [address] [id number] [place] [address] Aug, [facility] [address] [id number] [place] [address] Aug, [facility] [place] [facility] [address] [id number] [place] [address] Aug, [facility] [address] [id number] [place] [address] Jul, [facility] [place] [facility] [address] [id number] [place] [address] Jul, [facility] [place] [facility] [address] [id number] [place] [address] Jul, [facility] [place] [facility] [address] [id number], [place] [address] Jul, [facility] [place] [facility] [address] [id number] [place] [address] Jul, [facility] [place] [facility] [address] [id number], [place] [address] Jul, [facility] [place] [facility] [address] [id number] [place] [address] Jul, [facility] [place] [facility] [address] [id number] [place] [address] Jul, [facility] [place] [facility] [address] [id number] [address] [address] Jul, [facility] [place] [facility] [address] [id number], [place] [address] Jul, [facility] [address] [facility] [id number] [address] Jun, [facility] [id number], [place] [address] May, [facility] [address] [id number], [place] [address] Apr, [facility] [address] [facility] [id number], [place] [address] Apr, [facility] [address] [facility] [id number], [place] [address] Apr, [facility] [address] [id number] [address] [address] Mar, [facility] [id number], [place] [address] Mar, [facility] [id number], [place] [address] Mar, [facility] [id number], [place] [address] Mar, [facility] [id number], [place] [address] Mar, [facility] [address] [id number], [place] [address] Sep, [facility] [address] [id number], [place] [address] February, [facility] [address] [id number], [place] [address] Jan, IMMUNIZATIONS No Known Immunizations SOCIAL HISTORY Never Assessed REASON FOR VISIT Requests return call PLAN OF CARE VITAL SIGNS MEDICATIONS Unknown [...] bleeding 2015 Hospitalization History A fib with [facility] 02/06/17 Hospitalization History Altered mental status, lethargy-[facility] 07/10/17 Hospitalization History Chest pain-[facility] 08/05/17 Hospitalization History [facility] 10/2017 Hospitalization History Low potassium, A fib 01/2018 Hospitalization History Head injury 03/2018
--- OUTSIDE RECORDS SUMMARY | 2018-07-13 15:01 | XMS REPORT ---
Author Author FRANCHESKA HEADLEY Organization [facility] Address [address] [place] [address] Care Team Providers Care Project Planner Name Role Phone FRANCHESKA HEADLEY Unavailable PROBLEMS Type Condition ICD9-CM Code DEU40-HK Code Onset Dates Condition Status SNOMED Code Problem Other chronic pain G89.29 Active 52673320 Problem Lumbago with sciatica, left side M54.42 Active 994076968 Problem Seasonal allergic rhinitis, unspecified allergic rhinitis trigger J30.2 Active 758153640 Problem Methamphetamine abuse F15.10 Active 767280334 Problem Primary insomnia F51.01 Active 083027005 Problem Unsteady gait R26.81 Active 59975281 Problem Seizure disorder G40.909 Active 986221223 Problem Fibromyalgia M79.7 Active 504413972 Problem Infection of right eye H44.001 Active [id number] Problem Chronic fatigue R53.82 Active 64342349 Problem Chronic pain syndrome G89.4 Active 415989776 Problem Esophagitis, reflux K21.0 Active 068979377 Problem COPD (chronic obstructive pulmonary disease) with acute bronchitis J44.0 Active [id number] Problem Edema, due to unspecified malnutrition type, unspecified type R60.9 Active 207041721 Problem Atrial fibrillation, unspecified type I48.91 Active 34343945 Problem Congestive heart failure, unspecified congestive heart failure chronicity, unspecified congestive heart failure type I50.9 Active 10974606 Problem Unspecified mood [affective] disorder F39 Active 642562457 Problem Major depressive disorder, recurrent episode, severe F33.2 Active 879668632048 Problem Lumbago with sciatica, right side M54.41 Active 323730677 Problem Polysubstance (excluding opioids) dependence F19.20 Active 65895156 Problem Anxiety F41.9 Active 39380623 ALLERGIES No Information ENCOUNTERS Encounter Location Date Diagnosis [facility] [address] [facility] [id number] [address] Jun, [facility] [address] [address] May, Anxiety F41.9 [facility] [address] [address]- [address]207 May, [facility] [address] [address] May, Methamphetamine abuse F15.10 [facility] [address] [address] May, [facility] [address] 45384- 8504 Apr, [facility] [address] 44681- [address] Apr, Lumbago with sciatica, right side M54.41 ; Chronic pain syndrome G89.4 and Primary insomnia F51.01 [facility] [address] [address] Apr, Acute right ankle pain M25.571 [facility] [address] [address] Apr, [facility] [address] [address] Apr, Seasonal allergic rhinitis, unspecified trigger J30.2 and Acute right ankle pain M25.571 [facility] [address] [place] [id number] [place] [address] 45042- 0561 Mar, Primary insomnia F51.01 and Anxiety F41.9 [facility] [address] 6[address]28- 6007 Mar, [facility] [address] 04263- 1219 Mar, [facility] [address] 98695- 5009 Mar, Lumbago with sciatica, left side M54.42 [facility] [id number] [place] [address] 93252- 3385 Mar, [facility] [id number] [place] [address] 79236- 3773 Mar, Anxiety F41.9 [place] [address] 7[address]- 0587 February, [facility] [id number] [place] [address] 06985- 5798 February, Unspecified mood [affective] disorder F39 [place] [address] [place] [id number] [place] [address] 61599- 7618 February, [place] [address] [place] [id number] [place] [address] 01440- 6410 February, [facility] [id number] [place] [address] 44758 -2359 February, Hordeolum externum of right upper eyelid H00.011 and Paronychia of finger of right hand L03.011 [place] [address] [place] [id number] [place] [address] 40795- 4074 February, [facility] [id number] [place] [address] 07314- 0871 February, Primary insomnia F51.01 ; Atrial fibrillation, unspecified type I48.91 ; Unsteady gait R26.81 ; General weakness R53.1 ; Chronic fatigue R53.82 ; Hypokalemia E87.6 and Other chronic pain G89.29 [facility] [id number] [place] [address] 28890- 5614 February, [facility] [id number] [place] [address] 24578- 3109 Jan, Lumbago with sciatica, right side M54.41 [place] [address] [place] [address] [place] [address] Jan, Anxiety F41.9 ; Chronic pain syndrome G89.4 ; Folliculitis L73.9 and Fibromyalgia M79.7 [place] [address] 61820- 0630 Jan, Lumbago with sciatica, right side M54.41 [place] [address] 48533- 2153 Dec, [place] [address] 31293- 2606 Nov, Lumbago with sciatica, right side M54.41 [place] [address] 99255- 3859 Nov, [place] [address] 70928- 2771 Nov, Unspecified mood [affective] disorder F39 ; Hypokalemia E87.6 and Anemia, unspecified type D64.9 [place] [address] 84355- 7704 Nov, [place] [address] 72889- 0906 Oct, Lumbago with sciatica, right side M54.41 [facility] [place] [address] 8[address]9 Aug, Congestive heart failure, unspecified congestive heart failure chronicity, unspecified congestive heart failure type I50.9 and Peripheral edema R60.9 [place] [address] 17954- 2903 Aug, Polysubstance (excluding opioids) dependence F19.20 and Lumbago with sciatica, left side M54.42 [place] [address] 44263- 4598 Aug, [facility] [place] [address] [address] Aug, Infection of right eye H44.001 [place] [address] [place] [id number] [place] [address] 63031- 2320 Aug, Congestive heart failure, unspecified congestive heart failure chronicity, unspecified congestive heart failure type I50.9 and Other chronic pain G89.29 [place] [address] [place] [id number] [place] [address] 62175- 9458 Aug, Lumbago with sciatica, right side M54.41 [place] [address] [place] [id number] [place] [address] 81300- 9512 Aug, Lumbago with sciatica, right side M54.41 [place] [address] [place] [id number] [place] [address] 96095- 1193 Aug, [place] [address] [place] [id number] [place] [address] 89967- 4862 Jul, [place] [address] [place] [id number] [place] [address] 46592- 4929 Jul, COPD (chronic obstructive pulmonary disease) with acute bronchitis J44.0 ; Atrial fibrillation, unspecified type I48.91 ; Polysubstance (excluding opioids) dependence F19.20 ; Congestive heart failure, unspecified congestive heart failure chronicity, unspecified congestive heart failure type I50.9 and Lumbago with sciatica, right side M54.41 [facility] [address] [place] [id number] [place] [address] [id number] Jul, [place] [address] [place] [id number] [place] [address] 77218- 9356 Jul, Seizure disorder G40.909 [place] [address] [place] [id number] [place] [address] 58483- 1548 Jul, Lumbago with sciatica, right side M54.41 [place] [address] [place] [address] [id number] [place] [address] 81905- 2075 Jul, [facility] [address] [address] 388[address] Jun, Congestive heart failure, unspecified congestive heart failure chronicity, unspecified congestive heart failure type I50.9 ; Lumbago with sciatica, right side M54.41 and Other chronic pain G89.29 [facility] [id number] [place] [address] 03319- 6990 Jun, [facility] [id number] [place] [address] 18854- 8828 Jun, [facility] [id number] [place] [address] 24034- 5697 May, Lumbago with sciatica, left side M54.42 [place] [address] [place] [id number] [place] [address] 85351- 3086 May, [facility] [id number] [place] [address] 16628 -7374 May, Unspecified fall, initial encounter W19.XXXA [place] [address] [place] [id number] [place] [address] 08696- 4431 May, Lumbago with sciatica, right side M54.41 [place] [address] [place] [id number] [place] [address] 45218- 5956 May, [facility] [address] [id number] [place] [address] 64809- 2077 May, Bloating R14.0 and Right hip pain M25.551 [facility] [address] [address] [id number] [place] [address] 46720- 3172 Apr, [facility] [address] [address] [id number] [place] [address] 03416- 3024 Apr, Lumbago with sciatica, left side M54.42 [facility] [address] [id number] [place] [address] 59650- 9217 Mar, [facility] [place] [address] [place] [address] [id number] [place] [address] 80469 -4794 Mar, Lumbago with sciatica, right side M54.41 [facility] [place] [address] [place] [address] [id number] [place] [address] 26845 -9171 Mar, Abdominal distension R14.0 [place] [address] 23619- 3704 Mar, Periumbilical abdominal pain R10.33 and Diarrhea, unspecified type R19.7 [facility] [place] [address] 64178 [address]3575 February, Seasonal allergic rhinitis, unspecified allergic rhinitis trigger J30.2 ; Acute middle ear effusion, bilateral H65.193 and Lumbago with sciatica, right side M54.41 [place] [address] 42918- 7613 February, Routine gynecological examination Z01.419 [place] [address] 77944- 9315 Jan, [place] [address] 57229- 1271 Jan, Atrial fibrillation, unspecified type I48.91 [facility] [place] [address] [place] [id number] [place] [address] 98349 -1662 Jan, Lumbago with sciatica, right side M54.41 and Wound, open, toe, initial encounter S91.109A [place] [address] [place] [id number] [place] [address] [id number] Jan, [facility] [place] [address] 01204 [address]4029 Jan, Acute bilateral low back pain without sciatica M54.5 [place] [address] 22541- 8123 Dec, Congestive heart failure, unspecified congestive heart failure chronicity, unspecified congestive heart failure type I50.9 [facility] [id number] [place] [address] 71611- 9626 Dec, [facility] [id number] [place] [address] 19944- 4655 Dec, Thrush, oral B37.0 and Lumbago with sciatica, right side M54.41 [facility] [address] 02369- 3300 Dec, [facility] [id number] [place] [address] 22429- 8161 Nov, [facility] [address] 57288- 1788 Nov, [facility] [address] 35836- 8381 Oct, Polysubstance (excluding opioids) dependence F19.20 ; Other chronic pain G89.29 and Lumbago with sciatica, right side M54.41 [facility] [id number] [place] [address] 84123- 8032 Oct, [facility] [address] [id number] [place] [address] 49379- 8398 Aug, Lumbago with sciatica, right side M54.41 ; Other chronic pain G89.29 and Anxiety F41.9 [facility] [id number] [place] [address] 54506- 5868 Aug, [facility] [id number] [place] [address] 68885- 4847 Aug, [facility] [id number] [place] [address] 09546- 6839 Aug, [facility] [id number] [place] [address] 90239- 8017 Aug, [facility] [id number] [place] [address] 92616- 3789 Aug, [facility] [address] [address]- 0030 Aug, [facility] [address] [place] [address] 49269- 1676 Jul, Unspecified mood [affective] disorder F39 and Seizure disorder G40.909 [facility] [id number] [place] [address] 39117- 2983 Jul, [facility] [address] [place] [address] 45329- 8513 Jul, [facility] [id number] [place] [address] 91431- 1583 Jul, Unspecified mood [affective] disorder F39 and Seizure disorder G40.909 [facility] [address] [place] [address] 62690- 0563 Jul, Polysubstance (excluding opioids) dependence F19.20 ; COPD ( chronic obstructive pulmonary disease) with acute bronchitis J44.0 ; Congestive heart failure, unspecified congestive heart failure chronicity, unspecified congestive heart failure type I50.9 ; Radiculopathy of lumbosacral region M54.17 and Radiculopathy, thoracic region M54.14 [facility] [address] [address]- 2355 Jun, Lumbago M54.5 [facility] [address] [place] [address] 51717- 1144 May, [facility] [address] [place] [address] 26236- 6108 May, [facility] [id number] [place] [address] 63197- 6585 May, [facility] [address] [place] [address] 13420- 3080 Apr, COPD (chronic obstructive pulmonary disease) with acute bronchitis J44.0 [facility] [address] [place] [address] 06322- 0420 Apr, Major depressive disorder, recurrent episode, severe F33.2 and Polysubstance (excluding opioids) dependence F19.20 [facility] [id number] [place] [address] 22171- 0692 Mar, Major depressive disorder, recurrent episode, severe F33.2 and Polysubstance (excluding opioids) dependence F19.20 [facility] [id number] [place] [address] 76762- 4168 Mar, Major depressive disorder, recurrent episode, severe F33.2 and Polysubstance (excluding opioids) dependence F19.20 [facility] [id number] [place] [address] 28249- 4421 Mar, Major depressive disorder, recurrent episode, severe F33.2 and Polysubstance (excluding opioids) dependence F19.20 [place] [address] [place] [id number] [place] [address] 06886- 5983 February, Major depressive disorder, recurrent episode, severe F33.2 and Polysubstance (excluding opioids) dependence F19.20 [facility] [address] [place] [id number] [place] [address] 16206- 0594 February, [facility] [address] [place] [id number] [place] [address] 13837- 6953 February, COPD (chronic obstructive pulmonary disease) with acute bronchitis J44.0 [facility] [address] [place] [address] 67223 -6789 February, Sore throat J02.9 and Bronchitis J40 [facility] [address] [place] [id number] [place] [address] 52411- 5591 Jan, COPD (chronic obstructive pulmonary disease) with acute bronchitis J44.0 [facility] [address] [place] [address] 03760- 2793 Jan, COPD (chronic obstructive pulmonary disease) with acute bronchitis J44.0 [facility] [id number] [place] [address] 39516- 1181 14 Jan, 2016 [facility] [address] 34416- 9280 Dec, Gastritis K29.70 ; Constipation K59.00 and Lumbago M54.5 [place] [address] 02278- 6325 Dec, COPD (chronic obstructive pulmonary disease) with acute bronchitis J44.0 [facility] [id number] [place] [address] 35056- 2925 18 Nov, 2015 Major depressive disorder, recurrent episode, severe F33.2 and Polysubstance (excluding opioids) dependence F19.20 [facility] [id number] [place] [address] 37712 -1008 Oct, Oral thrush B37.0 and Drug abuse F19.10 [facility] [address] 11216- 3388 Oct, [facility] [address] 99821- 3739 Sep, COPD (chronic obstructive pulmonary disease) with acute bronchitis J44.0 ; Esophagitis, reflux K21.0 ; Seizure disorder G40.909 ; Primary insomnia F51.01 ; Edema, due to unspecified malnutrition type, unspecified type R60.9 ; Arthritis M19.90 and Thrush B37.0 [facility] [id number] [place] [address] 39018- 5880 Aug, [facility] [address] 85147- 4864 Aug, [facility] [address] [id number] [place] [address] 48226- 4261 Aug, [facility] [id number] [place] [address] 02964- 9564 Jul, [facility] [address] [place] [address] 95325- 4319 Jun, [facility] [address] [address] [id number] [place] [address] 93488- 6714 Jun, Counseling on substance use and abuse V65.42 and Obstructive chronic bronchitis, with (acute) exacerbation 491.21 [place] [address] [place] [id number] [place] [address] 07604- 1932 May, [facility] [id number] [place] [address] 51338- 0360 Apr, [place] [address] 41197- 6386 Apr, Abdominal pain 789.00 and Back pain 724.5 [place] [id number] [place] [address] 93984- 9932 Mar, Back pain 724.5 and Illicit drug use 305.90 [place] [address] [place] [id number] [place] [address] 88182- 0589 February, Onychomycosis 110.[address] [place] [id number] [place] [address] 48705- 9102 February, Breast cancer screening V76.10 [place] [id number] [place] [address] 36852- 9620 February, [place] [address] [place] [id number] [place] [address] 91956- 0012 February, [place] [address] [place] [id number] [place] [address] 46991- 7213 February, Cough 786.2 ; Obstructive chronic bronchitis, with (acute) exacerbation 491.21 ; Vomiting 787.03 ; 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 and Gastritis 535.50 [place] [address] [place] [address] [id number]- 8730 Jan, [address] 8[address]01- 9490 13 Jan, 2015 [facility] [place] [facility] [address] [id number] [place] [address]- 4916 24 Dec, 2014 [facility] [place] [facility] [address] [id number] [place] [address]- 7947 20 Dec, 2014 [facility] [place] [facility] [address] [id number] [place] [address]- 5492 20 Dec, 2014 [facility] [place] [facility] [address] [id number] [place] [address]- 7229 13 Dec, 2014 [facility] [place] [facility] [address] [id number] [place] [address]- 6576 13 Dec, 2014 [facility] [place] [facility] [address] [id number] [place] [address]- 6787 12 Dec, 2014 [facility] [place] [facility] [address] [id number] [place] [address]- 5231 Dec, [facility] [place] [facility] [address] [id number] [place] [address]- 9337 Dec, [facility] [place] [facility] [address] [id number] [place] [address]- 6484 Dec, [facility] [place] [facility] [address] [id number] [place] [address]- 6727 Sep, [facility] [place] [facility] [address] [id number] [place] [address]- 3280 Sep, [facility] [place] [facility] [address] [id number] [place] [address]- 2661 Sep, [facility] [place] [facility] [address] [id number] [place] [address]- 3122 Sep, [facility] [place] [facility] [address] [id number] [place] [address]- 4199 Sep, [facility] [place] [facility] [address] [id number] [place] [address]- 8127 Sep, [facility] [place] [facility] [address] [id number] [place] [address]- 9461 Sep, [facility] [place] [facility] [address] [id number] [place] 3394 Sep, [facility] [place] [facility] [address] [id number] [place] [address]- 8313 Sep, [facility] [place] [facility] [address] [id number] [place] [address]- 4220 Sep, [facility] [place] [facility] [address] [id number] [place] [address]- 8422 Aug, [facility] [place] [facility] [address] [id number] [place] [address]- 5589 Aug, [facility] [place] [facility] [address] [id number] [place] [address]- 8436 Aug, [facility] [place] [facility] [address] [id number] [place] [address]- 6939 Aug, [facility] [place] [facility] [address] [id number] [place] [address] Jul, [facility] [place] [facility] [address] [id number] [place] [address] Jul, [facility] [place] [facility] [address] [id number] [place] [address] Jun, [facility] [place] [facility] [address] [id number] [place] [address] Jun, [facility] [place] [facility] [address] [id number] [place] [address] May, [facility] [place] [facility] [address] [id number] [place] [address] May, [facility] [place] [facility] [address] [id number] [place] [address] May, [facility] [place] [facility] [address] [id number] [place] [address] May, [facility] [place] [facility] [address] [id number] [place] [address] May, [facility] [place] [facility] [address] [id number] [place] [address] May, [facility] [place] [facility] [address] [id number] [place] [address] Apr, [facility] [place] [facility] [address] [id number] [place] [address] Apr, [facility] [place] [facility] [address] [id number] [place] [address] Apr, [facility] [place] [facility] [address] [id number] [place] [address] Apr, [facility] [place] [facility] [address] [id number] [place] [address] February, [facility] [place] [facility] [address] [id number] [place] [address] February, [facility] [place] [facility] [address] [id number] [place] [address] Oct, [facility] [place] [facility] [address] [address] [id number] [place] [address] Oct, [facility] [place] [facility] [address] [id number] [place] [address] Oct, [facility] [place] [facility] [address] [id number] [place] [address] Oct, [facility] [place] [facility] [address] [id number] [place] [address] Sep, [facility] [place] [facility] [address] [id number] [place] [address] Sep, [facility] [place] [facility] [address] [id number] [place] [address] Sep, [facility] [place] [facility] [address] [id number] [place] Sep, [facility] [place] [facility] [address] [id number] [place] [address] Aug, [facility] [place] [facility] [address] [id number] [place] Aug, [facility] [place] [facility] [address] [id number] [place] [address] Aug, [facility] [place] [facility] [address] [id number] [place] [address] Aug, [facility] [place] [facility] [address] [id number] [place] [address] Jul, [facility] [place] [facility] [address] [id number] [place] [address] Jul, [facility] [place] [facility] [address] [id number] [place] [address] Jul, [facility] [place] [facility] [address] [id number] [place] [address] Jul, [facility] [place] [facility] [address] [id number] [place] [address] Jul, [facility] [place] [facility] [address] [facility] [id number] [place] [address] Jul, [facility] [place] [facility] [address] [id number] [place] [address] Jul, [facility] [place] [facility] [address] [id number] [place] [address] Jul, [facility] [place] [facility] [address] [id number] [place] [address] Jul, [facility] [place] [facility] [address] [id number] [place] [address] Jul, [facility] [place] [facility] [address] [id number] [place] [address] Jun, [facility] [address] [id number] [address] May, [facility] [id number] [address] Apr, [facility] [id number] [address] Apr, [facility] [id number] [address] Apr, [facility] [id number] [address] Mar, [facility] [id number] [address] Mar, [facility] [id number] [address] Mar, [facility] [id number] [address] Mar, [facility] [id number] [address] Mar, [facility] [id number] [address] Sep, [facility] [id number] [address] February, [facility] [address] [id number] [address] Jan, IMMUNIZATIONS No Known Immunizations SOCIAL HISTORY Never Assessed REASON FOR VISIT Medication refill request PLAN OF CARE VITAL SIGNS MEDICATIONS Medication Instructions Dosage Frequency Start Date End Date Duration Status Meclizine HCl 25 MG Orally once daily as needed TAKE ONE TABLET BY MOUTH EVERY DAY NEEDED FOR DIZZINESS 30 Active RESULTS No Results PROCEDURES No Known [...] bleeding 2015 Hospitalization History A fib with [facility] 02/06/17 Hospitalization History Altered mental status, [facility]argy-[facility] 07/10/17 Hospitalization History Chest pain[facility] 08/05/17 Hospitalization History [facility] 10/2017 Hospitalization History Low potassium, A fib 01/2018 Hospitalization History Head injury 03/2018
--- OUTSIDE RECORDS SUMMARY | 2018-07-13 15:01 | XMS REPORT ---
Author Author FRANCHESKA HEADLEY Organization [facility] Address [address] [place] [address] Care Team Providers Care Store Associate Name Role Phone FRANCHESKA HEADLEY Unavailable PROBLEMS Type Condition ICD9-CM Code [id number] Code Onset Dates Condition Status SNOMED Code Problem Other chronic pain G89.29 Active 79653045 Problem Lumbago with sciatica, left side M54.42 Active 932799087 Problem Seasonal allergic rhinitis, unspecified allergic rhinitis trigger J30.2 Active 690202632 Problem Methamphetamine abuse F15.10 Active 024986964 Problem Primary insomnia F51.01 Active 334376365 Problem Unsteady gait R26.81 Active 77511676 Problem Seizure disorder G40.909 Active 312216105 Problem Fibromyalgia M79.7 Active 023203020 Problem Infection of right eye H44.001 Active 33402946204224525 Problem Chronic fatigue R53.82 Active 38781256 Problem Chronic pain syndrome G89.4 Active 854040553 Problem Esophagitis, reflux K21.0 Active 720025094 Problem COPD (chronic obstructive pulmonary disease) with acute bronchitis J44.0 Active [id number] Problem Edema, due to unspecified malnutrition type, unspecified type R60.9 Active 123916444 Problem Atrial fibrillation, unspecified type I48.91 Active 33000730 Problem Congestive heart failure, unspecified congestive heart failure chronicity, unspecified congestive heart failure type I50.9 Active 51905806 Problem Unspecified mood [affective] disorder F39 Active 571162551 Problem Major depressive disorder, recurrent episode, severe F33.2 Active 614976562683 Problem Lumbago with sciatica, right side M54.41 Active 733454219 Problem Polysubstance (excluding opioids) dependence F19.20 Active 34635773 Problem Anxiety F41.9 Active 52436553 ALLERGIES No Information ENCOUNTERS Encounter Location Date Diagnosis [facility] [address] [facility] [id number] [address] Jun, [facility] [address] [address] May, Anxiety F41.9 [facility] [address] [address]- [address]33 May, [facility] [address] [address] May, Methamphetamine abuse F15.10 [facility] [address] [address]- [address] May, [facility] [address] 01266- 8[address] Apr, [facility] [address] 73257- 94[address] Apr, Lumbago with sciatica, right side M54.41 ; Chronic pain syndrome G89.4 and Primary insomnia F51.01 [facility] [address] [address] Apr, Acute right ankle pain M25.571 [facility] WALK IN [facility] [address] [address] Apr, [facility] [address] 9[address] Apr, Seasonal allergic rhinitis, unspecified trigger J30.2 and Acute right ankle pain M25.571 [facility] [address] [place] [id number] [place] [address]11- 1994 Mar, Primary insomnia F51.01 and Anxiety F41.9 [facility] [address] 7[address]- 4512 Mar, [facility] [address] 88974- 6628 Mar, [facility] [address] 37257- 0161 Mar, Lumbago with sciatica, left side M54.42 [facility] [address] [place] [id number] [place] [address] 58287- 4785 Mar, [facility] [address] [id number] [place] [address] 53619- 3057 Mar, Anxiety F41.9 [place] [address] 71843- 0[address] February, [facility] [address] [place] [id number] [place] [address] 02577- 3505 February, Unspecified mood [affective] disorder F39 [place] [address] [place] [id number] [place] [address] 44361- 8829 February, [place] [address] [place] [id number] [place] [address] 16481- 0524 February, [facility] [address] [place] [address] [id number] [place] [address] 51448 -6259 February, Hordeolum externum of right upper eyelid H00.011 and Paronychia of finger of right hand L03.011 [place] [address] [place] [id number] [place] [address] 36342- 1738 February, [facility] [address] [place] [address] [id number] [place] [address] 63063- 1831 February, Primary insomnia F51.01 ; Atrial fibrillation, unspecified type I48.91 ; Unsteady gait R26.81 ; General weakness R53.1 ; Chronic fatigue R53.82 ; Hypokalemia E87.6 and Other chronic pain G89.29 [facility] [address] [place] [id number] [place] [address] 08533- 0159 February, [facility] [address] [id number] [place] [address] 25178- 9534 Jan, Lumbago with sciatica, right side M54.41 [place] [address] [place] [id number] [address] 7[address] Jan, Anxiety F41.9 ; Chronic pain syndrome G89.4 ; Folliculitis L73.9 and Fibromyalgia M79.7 [place] [address] 39516- 3619 Jan, Lumbago with sciatica, right side M54.41 [place] [address] 36636- 4533 Dec, [place] [address] 32133- 4302 Nov, Lumbago with sciatica, right side M54.41 [place] [address] 92990- 7251 Nov, [place] [address] 44254- 5617 Nov, Unspecified mood [affective] disorder F39 ; Hypokalemia E87.6 and Anemia, unspecified type D64.9 [place] [address] 54269- 8777 Nov, [place] [address] 28558- 5910 Oct, Lumbago with sciatica, right side M54.41 [facility] [place] [address] 47[address]0317 Aug, Congestive heart failure, unspecified congestive heart failure chronicity, unspecified congestive heart failure type I50.9 and Peripheral edema R60.9 [place] [address] 25392- 4011 Aug, Polysubstance (excluding opioids) dependence F19.20 and Lumbago with sciatica, left side M54.42 [place] [address] 06272- 1420 Aug, [facility] [place] [address] [address] Aug, Infection of right eye H44.001 [place] [address] [place] [id number] [place] [address] 50383- 0888 Aug, Congestive heart failure, unspecified congestive heart failure chronicity, unspecified congestive heart failure type I50.9 and Other chronic pain G89.29 [place] [address] [place] [id number] [place] [address] 61180- 2765 Aug, Lumbago with sciatica, right side M54.41 [place] [address] [place] [id number] [place] [address] 55809- 5496 Aug, Lumbago with sciatica, right side M54.41 [place] [address] [place] [id number] [place] [address] 77092- 5701 Aug, [place] [address] [place] [id number] [place] [address] 95132- 8677 Jul, [place] [address] [place] [id number] [place] [address] 16940- 8154 Jul, COPD (chronic obstructive pulmonary disease) with acute bronchitis J44.0 ; Atrial fibrillation, unspecified type I48.91 ; Polysubstance (excluding opioids) dependence F19.20 ; Congestive heart failure, unspecified congestive heart failure chronicity, unspecified congestive heart failure type I50.9 and Lumbago with sciatica, right side M54.41 [facility] [address] [place] [id number] [place] [address] [id number] Jul, [place] [address] [place] [id number] [place] [address] 71398- 9979 Jul, Seizure disorder G40.909 [place] [address] [place] [id number] [place] [address] 15163- 6158 Jul, Lumbago with sciatica, right side M54.41 [place] [address] [place] [id number] [place] [address] 83200- 9801 Jul, [facility] [address], [place] [address] Jun, Congestive heart failure, unspecified congestive heart failure chronicity, unspecified congestive heart failure type I50.9 ; Lumbago with sciatica, right side M54.41 and Other chronic pain G89.29 [facility] [address] [place] [id number] [place] [address] 67235- 0591 Jun, [facility] [address] [place] [id number] [place] [address] 52268- 3652 Jun, [facility] [address] [place] [id number] [place] [address] 86621- 4645 May, Lumbago with sciatica, left side M54.42 [place] [address] [place] [id number] [place] [address] 11205- 3852 May, [facility] [address] [place] [id number] [place] [address] 33960 -7174 May, Unspecified fall, initial encounter W19.XXXA [place] [address] [place] [id number] [place] [address] 00263- 3183 May, Lumbago with sciatica, right side M54.41 [place] [address] [place] [id number] [place] [address] 66878- 7901 May, [facility] [address] [place] [id number] [place] [address] 61748- 5542 May, Bloating R14.0 and Right hip pain M25.551 [facility] [address] [place] [id number] [place] [address] 43917- 3727 Apr, [facility] [address] [place] [id number] [place] [address] 23681- 6095 Apr, Lumbago with sciatica, left side M54.42 [facility] [address] [place] [id number] [place] [address] 20489- 5711 Mar, [facility] [place] [address] [place] [id number] [place] [address] 86851 -0551 Mar, Lumbago with sciatica, right side M54.41 [facility] [place] [address] [place] [id number] [place] [address] 13546 -4934 Mar, Abdominal distension R14.0 [place] [address] 14338- 4233 Mar, Periumbilical abdominal pain R10.33 and Diarrhea, unspecified type R19.7 [facility] [place] [address] 06340 -7180 February, Seasonal allergic rhinitis, unspecified allergic rhinitis trigger J30.2 ; Acute middle ear effusion, bilateral H65.193 and Lumbago with sciatica, right side M54.41 [place] [address] 68561- 5751 February, Routine gynecological examination Z01.419 [place] [address] 85517- 3956 Jan, [place] [address] 05529- 9745 Jan, Atrial fibrillation, unspecified type I48.91 [facility] [place] [address] [place] [id number] [place] [address] 53835 -9666 Jan, Lumbago with sciatica, right side M54.41 and Wound, open, toe, initial encounter S91.109A [place] [address] [place] [id number] [place] [address] [id number] Jan, [facility] [place] [address] 91418 -8159 Jan, Acute bilateral low back pain without sciatica M54.5 [place] [address] 08541- 3259 Dec, Congestive heart failure, unspecified congestive heart failure chronicity, unspecified congestive heart failure type I50.9 [facility] [address] [place] [id number] [place] [address] 47390- 6358 Dec, [facility] [address] [place] [id number] [place] [address] 20080- 0923 Dec, Thrush, oral B37.0 and Lumbago with sciatica, right side M54.41 [facility] [address] 77945- 5539 Dec, [facility] [address] [place] [id number] [place] [address] 83240- 2044 Nov, [facility] [address] 63909- 4503 Nov, [facility] [address] 80177- 9692 Oct, Polysubstance (excluding opioids) dependence F19.20 ; Other chronic pain G89.29 and Lumbago with sciatica, right side M54.41 [facility] [address] [place] [id number] [place] [address] 95220- 7615 Oct, [facility] [address] [place] [id number] [place] [address] 10662- 8805 Aug, Lumbago with sciatica, right side M54.41 ; Other chronic pain G89.29 and Anxiety F41.9 [facility] [address] [place] [id number] [place] [address] 81448- 5240 Aug, [facility] [address] [place] [id number] [place] [address] 15960- 3475 Aug, [facility] [address] [place] [id number] [place] [address] 60880- 5982 Aug, [facility] [address] [place] [id number] [place] [address] 86219- 2991 Aug, [facility] [address] [place] [id number] [place] [address] 72345- 1063 Aug, [facility] [address], [place] [address]- 7565 Aug, [facility] [address] [place] [address] 63721- 6629 Jul, Unspecified mood [affective] disorder F39 and Seizure disorder G40.909 [facility] [address] [place] [id number] [place] [address] 00695- 6816 Jul, [facility] [address] [place] [address] 65769- 4377 Jul, [facility] [address] [place] [id number] [place] [address] 67566- 9207 Jul, Unspecified mood [affective] disorder F39 and Seizure disorder G40.909 [facility] [address] [place] [address] 50837- 1609 Jul, Polysubstance (excluding opioids) dependence F19.20 ; COPD ( chronic obstructive pulmonary disease) with acute bronchitis J44.0 ; Congestive heart failure, unspecified congestive heart failure chronicity, unspecified congestive heart failure type I50.9 ; Radiculopathy of lumbosacral region M54.17 and Radiculopathy, thoracic region M54.14 [facility] [address], [place] [address]- 3917 Jun, Lumbago M54.5 [facility] [id number] [place] [address] 13936- 9495 May, [facility] [id number] [place] [address] 63220- 9161 May, [facility] [address] [place] [id number] [place] [address] 78928- 8169 May, [facility] [address] [place] [address] 46277- 1344 Apr, COPD (chronic obstructive pulmonary disease) with acute bronchitis J44.0 [facility] [address] [place] [address] 49341- 8248 Apr, Major depressive disorder, recurrent episode, severe F33.2 and Polysubstance (excluding opioids) dependence F19.20 [facility] [address] [place] [id number] [place] [address] 27447- 6878 Mar, Major depressive disorder, recurrent episode, severe F33.2 and Polysubstance (excluding opioids) dependence F19.20 [facility] [address] [place] [id number] [place] [address] 75518- 4136 Mar, Major depressive disorder, recurrent episode, severe F33.2 and Polysubstance (excluding opioids) dependence F19.20 [facility] [address] [place] [id number] [place] [address] 75502- 2592 Mar, Major depressive disorder, recurrent episode, severe F33.2 and Polysubstance (excluding opioids) dependence F19.20 [place] [address] [place] [id number] [place] [address] 35257- 6924 February, Major depressive disorder, recurrent episode, severe F33.2 and Polysubstance (excluding opioids) dependence F19.20 [facility] [address] [place] [id number] [place] [address] 22018- 1917 February, [facility] [address] [place] [id number] [place] [address] 10560- 6116 February, COPD (chronic obstructive pulmonary disease) with acute bronchitis J44.0 [facility] [address] [place] [address] 00598 -4583 February, Sore throat J02.9 and Bronchitis J40 [facility] [address] [place] [id number] [place] [address] 21500- 1003 Jan, COPD (chronic obstructive pulmonary disease) with acute bronchitis J44.0 [facility] [address] [place] [address] 53629- 0368 Jan, COPD (chronic obstructive pulmonary disease) with acute bronchitis J44.0 [facility] [address] [place] [id number] [place] [address] 48555- 0851 14 Jan, 2016 [facility] [address] 07755- 3415 Dec, Gastritis K29.70 ; Constipation K59.00 and Lumbago M54.5 [place] [address] 73373- 4325 Dec, COPD (chronic obstructive pulmonary disease) with acute bronchitis J44.0 [facility] [address] [place] [id number] [place] [address] 50427- 4798 18 Nov, 2015 Major depressive disorder, recurrent episode, severe F33.2 and Polysubstance (excluding opioids) dependence F19.20 [facility] [address] [place] [id number] [place] [address] 70597 -8149 Oct, Oral thrush B37.0 and Drug abuse F19.10 [facility] [address] 22021- 0521 Oct, [facility] [address] 12011- 5551 Sep, COPD (chronic obstructive pulmonary disease) with acute bronchitis J44.0 ; Esophagitis, reflux K21.0 ; Seizure disorder G40.909 ; Primary insomnia F51.01 ; Edema, due to unspecified malnutrition type, unspecified type R60.9 ; Arthritis M19.90 and Thrush B37.0 [facility] [address] [place] [id number] [place] [address] 43241- 9417 Aug, [facility] [address] 63557- 1970 Aug, [facility] [address] [place] [id number] [place] [address] 73609- 5258 Aug, [facility] [address] [place] [id number] [place] [address] 16045- 0674 Jul, [facility] [address] [place] [address] 52598- 6904 Jun, [facility] [address] [place] [id number] [place] [address] 64973- 3006 Jun, Counseling on substance use and abuse V65.42 and Obstructive chronic bronchitis, with (acute) exacerbation 491.21 [place] [address] [place] [id number] [place] [address] 91805- 4639 May, [facility] [address] [place] [id number] [place] [address] 02167- 0529 Apr, [place] [address] 46028- 6869 Apr, Abdominal pain 789.00 and Back pain 724.5 [place] [id number] [place] [address] 78811- 1604 Mar, Back pain 724.5 and Illicit drug use 305.90 [place] [address] [place] [id number] [place] [address] 19139- 4283 February, Onychomycosis 110.1 [place] [id number] [place] [address] 47874- 8949 February, Breast cancer screening V76.10 [place] [id number] [place] [address] 87902- 0887 February, [place] [address] [place] [id number] [place] [address] 61262- 1938 February, [place] [address] [place] [id number] [place] [address] 94971- 1685 February, Cough 786.2 ; Obstructive chronic bronchitis, with (acute) exacerbation 491.21 ; Vomiting 787.03 ; 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 and Gastritis 535.50 [place] [id number] [place] [address] [id number]- 4174 Jan, [address] 36272- 7462 13 Jan, 2015 [facility] [place] [facility] [address] [id number] [place] [address]- 2148 24 Dec, 2014 [facility] [place] [facility] [address] [id number] [place] [address]- 8846 20 Dec, 2014 [facility] [place] [facility] [address] [id number] [place] [address]- 6332 20 Dec, 2014 [facility] [place] [facility] [address] [id number] [place] [address]- 8841 13 Dec, 2014 [facility] [place] [facility] [address] [id number] [place] [address]- 2131 13 Dec, 2014 [facility] [place] [facility] [address] [id number] [place] [address]- 5940 12 Dec, 2014 [facility] [place] [facility] [address] [id number] [place] [address]- 9757 Dec, [facility] [place] [facility] [address] [id number] [place] [address]- 9619 Dec, [facility] [place] [facility] [address] [id number] [place] [address]- 4964 Dec, [facility] [place] [facility] [address] [id number] [place] [address]- 3417 Sep, [facility] [place] [facility] [address] [id number] [place] [address]- 7571 Sep, [facility] [place] [facility] [address] [id number] [place] [address]- 5080 Sep, [facility] [place] [facility] [address] [id number] [place] [address]- 1630 Sep, [facility] [place] [facility] [address] [id number] [place] [address]- 4254 Sep, [facility] [place] [facility] [address] [id number] [place] [address]- 7391 Sep, [facility] [place] [facility] [address] [id number] [place] [address]- 3658 Sep, [facility] [place] [facility] [address] [id number] [place] 2838 Sep, [facility] [place] [facility] [address] [id number] [place] [address]- 9378 Sep, [facility] [place] [facility] [address] [id number] [place] [address] Sep, [facility] [place] [facility] [address] [id number] [place] [address] Aug, [facility] [place] [facility] [address] [id number] [place] [address] Aug, [facility] [place] [facility] [address] [id number] [place] [address] Aug, [facility] [place] [facility] [address] [id number] [place] [address] Aug, [facility] [place] [facility] [address] [id number] [place] [address] Jul, [facility] [place] [facility] [address] [id number] [place] [address] Jul, [facility] [place] [facility] [address] [id number] [place] [address] Jun, [facility] [place] [facility] [address] [id number] [place] [address] Jun, [facility] [place] [facility] [address] [id number] [place] [address] May, [facility] [place] [facility] [address] [id number] [place] [address] May, [facility] [place] [facility] [address] [id number] [place] [address] May, [facility] [place] [facility] [address] [id number] [place] [address] May, [facility] [place] [facility] [address] [id number] [place] [address] May, [facility] [place] [facility] [address] [id number] [place] [address] May, [facility] [place] [facility] [address] [id number] [place] [address] Apr, [facility] [place] [facility] [address] [id number] [place] [address] Apr, [facility] [place] [facility] [address] [id number] [place] [address] Apr, [facility] [place] [facility] [address] [id number] [place] [address] Apr, [facility] [place] [facility] [address] [id number] [place] [address] February, [facility] [place] [facility] [address] [id number] [place] [address] February, [facility] [place] [facility] [address] [id number] [place] [address] Oct, [facility] [place] [facility] [address] [id number] [place] [address] Oct, [facility] [place] [facility] [address] [id number] [place] [address] Oct, [facility] [place] [facility] [address] [id number] [place] [address] Oct, [facility] [place] [facility] [address] [address] [id number] [place] [address] Sep, [facility] [place] [facility] [address] [id number] [place] [address] Sep, [facility] [place] [facility] [address] [id number] [place] [address] Sep, [facility] [place] [facility] [address] [id number] [place] [address] Sep, [facility] [place] [facility] [address] [id number] [place] [address] Aug, [facility] [place] [facility] [address] [id number] [place] [address] Aug, [facility] [place] [facility] [address] [id number] [place] [address] Aug, [facility] [place] [facility] [address] [id number] [place] [address] Aug, [facility] [place] [facility] [address] [id number] [place] [address] Jul, [facility] [place] [facility] [address] [id number] [place] [address] Jul, [facility] [place] [facility] [address] [id number] [place] [address] Jul, [facility] [place] [facility] [address] [id number] [place] [address] Jul, [facility] [place] [facility] [address] [id number] [place] [address] Jul, [facility] [place] [facility] [address] [facility] [id number], [place] [address] Jul, [facility] [place] [facility] [address] [id number] [place] [address] Jul, [facility] [place] [facility] [address] [id number], [place] [address] Jul, [facility] [place] [facility] [address] [id number] [place] [address] Jul, [facility] [place] [facility] [address] [id number], [place] [address] Jul, [facility] [place] [facility] [address] [id number] Jun, [facility] [id number] [address] May, [facility] [id number], [place] [address] Apr, [facility] [id number], [place] [address] Apr, [facility] [address] [id number] [address] Apr, [facility] [id number], [place] [address] Mar, [facility] [id number], [place] [address] Mar, [facility] [id number], [place] [address] Mar, [facility] [id number], [place] [address] Mar, [facility] [id number], [place] [address] Mar, [facility] [id number], [place] [address] Sep, [facility] [id number], [place] [address] February, [facility] [id number] [id number] Jan, IMMUNIZATIONS No Known Immunizations SOCIAL HISTORY Never Assessed REASON FOR VISIT Requests return call/ PLAN OF CARE VITAL SIGNS MEDICATIONS Unknown [...] bleeding 2015 Hospitalization History A fib with [facility] 02/06/17 Hospitalization History Altered mental status, lethargy-[facility] 07/10/17 Hospitalization History Chest pain-[facility] 08/05/17 Hospitalization History [facility] 10/2017 Hospitalization History Low potassium, A fib 01/2018 Hospitalization History Head injury 03/2018
--- OUTSIDE RECORDS SUMMARY | 2018-07-13 15:02 | XMS REPORT ---
Author Author FRANCHESKA HEADLEY [facility] Address [address] [place] [address] Care Team Providers Care Personnel Psychologist Name Role Phone FRANCHESKA HEADLEY Unavailable PROBLEMS Type Condition ICD9-CM Code NSV24-HG Code Onset Dates Condition Status SNOMED Code Problem Other chronic pain G89.29 Active 12364208 Problem Lumbago with sciatica, left side M54.42 Active 037706836 Problem Seasonal allergic rhinitis, unspecified allergic rhinitis trigger J30.2 Active 872540991 Problem Methamphetamine abuse F15.10 Active 325494325 Problem Primary insomnia F51.01 Active 307154790 Problem Unsteady gait R26.81 Active 33340585 Problem Seizure disorder G40.909 Active 286932564 Problem Fibromyalgia M79.7 Active 262578037 Problem Infection of right eye H44.001 Active [id number] Problem Chronic fatigue R53.82 Active 64511562 Problem Chronic pain syndrome G89.4 Active 291867078 Problem Esophagitis, reflux K21.0 Active 268745916 Problem COPD (chronic obstructive pulmonary disease) with acute bronchitis J44.0 Active 911726962146692 Problem Edema, due to unspecified malnutrition type, unspecified type R60.9 Active 923548795 Problem Atrial fibrillation, unspecified type I48.91 Active 05981672 Problem Congestive heart failure, unspecified congestive heart failure chronicity, unspecified congestive heart failure type I50.9 Active 66734560 Problem Unspecified mood [affective] disorder F39 Active 874032085 Problem Major depressive disorder, recurrent episode, severe F33.2 Active 160972027299 Problem Lumbago with sciatica, right side M54.41 Active 105850081 Problem Polysubstance (excluding opioids) dependence F19.20 Active 54782094 Problem Anxiety F41.9 Active 17585268 ALLERGIES Substance Reaction Event Type Date Status Saphris Unknown Drug Allergy Apr, Active Tylenol/Codeine #3 Unknown Drug Allergy Apr, Active Phenergan Unknown Drug Allergy Apr, Active Keflex Unknown Drug Allergy Apr, Active Inapsine Unknown Drug Allergy Apr, Active Geodon Unknown Drug Allergy Apr, Active Erythromycin Unknown Drug Allergy Apr, Active Darvocet-N 50 Unknown Drug Allergy Apr, Active Compazine Unknown Drug Allergy Apr, Active Cephalexin Unknown Drug Allergy Apr, Active Bactrim Unknown Drug Allergy Apr, Active ENCOUNTERS Encounter Location Date Diagnosis [place] [address] [address] May, Anxiety F41.9 [place] [address] 26264- [address]108 May, [facility]ALK IN [place] [address] [address] May, Methamphetamine abuse F15.10 [place] [address] 16645- 5755 May, [place] [address] 07114- [address]2 Apr, [place] [address] 7[address]32- [address]80 Apr, Lumbago with sciatica, right side M54.41 ; Chronic pain syndrome G89.4 and Primary insomnia F51.01 [facility] [place] [address] [address] Apr, Acute right ankle pain M25.571 [facility] [place] [address] [address] Apr, [facility] [address] [address] Apr, Seasonal allergic rhinitis, unspecified trigger J30.2 and Acute right ankle pain M25.571 [place] [address] 18141- 5650 Mar, Primary insomnia F51.01 and Anxiety F41.9 [facility] [id number] [place] [address] 63683- 9851 Mar, [facility] [address] [place] [id number] [place] [address] 25144- 9990 Mar, [facility] [address] [place] [id number] [place] [address] 00121- 1551 Mar, Lumbago with sciatica, left side M54.42 [facility] [address] [place] [id number] [place] [address] 08941- 5601 Mar, [facility] [address] [place] [id number] [place] [address] 61735- 3968 Mar, Anxiety F41.9 [facility] [address] [place] [id number] [place] [address] 43238- 8444 February, [facility] [address] [place] [id number] [place] [address] 65381- 6026 February, Unspecified mood [affective] disorder F39 [facility] [address] [place] [id number] [place] [address] 53688- 7279 February, [facility] [address] [place] [id number] [place] [address] 16292- 7696 February, [facility] [id number] [place] [address] 65871 -1495 February, Hordeolum externum of right upper eyelid H00.011 and Paronychia of finger of right hand L03.011 [facility] [id number] [place] [address] 79119- 7817 February, [facility] [address] [place] [id number] [place] [address] 18711- 7673 February, Primary insomnia F51.01 ; Atrial fibrillation, unspecified type I48.91 ; Unsteady gait R26.81 ; General weakness R53.1 ; Chronic fatigue R53.82 ; Hypokalemia E87.6 and Other chronic pain G89.29 [facility] [address] [place] [id number] [place] [address] 72547- 5651 February, [facility] [address] 20149- 3057 Jan, Lumbago with sciatica, right side M54.41 [facility] [address] [place] [id number] [place] [address] 83533- 7229 Jan, Anxiety F41.9 ; Chronic pain syndrome G89.4 ; Folliculitis L73.9 and Fibromyalgia M79.7 [facility] [address] [place] [id number] [place] [address] 54676- 8343 Jan, Lumbago with sciatica, right side M54.41 [place] [address] [place] [id number] [place] [address] 54684- 7442 Dec, [facility] [address] 58402- 4687 Nov, Lumbago with sciatica, right side M54.41 [facility] [address] [place] [id number] [place] [address] 22805- 8468 Nov, [place] [address] [place] [id number] [place] [address] 99809- 2164 Nov, Unspecified mood [affective] disorder F39 ; Hypokalemia E87.6 and Anemia, unspecified type D64.9 [facility] [address] [place] [id number] [place] [address] 34433- 2785 Nov, [facility] [address] [place] [id number] [place] [address] 71078- 3859 Oct, Lumbago with sciatica, right side M54.41 [facility] [address] [place] [id number] [place] [address] 76358 -4468 Aug, Congestive heart failure, unspecified congestive heart failure chronicity, unspecified congestive heart failure type I50.9 and Peripheral edema R60.9 [facility] [address] [place] [address] 76126- 2938 Aug, Polysubstance (excluding opioids) dependence F19.20 and Lumbago with sciatica, left side M54.42 [facility] [address] [place] [id number] [place] [address] 51788- 8180 17 Aug, 2017 [facility] [address] [place] [id number] [place] [address] 87188 -8832 Aug, Infection of right eye H44.001 [facility] [address] [place] [id number] [place] [address] 16015- 2155 Aug, Congestive heart failure, unspecified congestive heart failure chronicity, unspecified congestive heart failure type I50.9 and Other chronic pain G89.29 [place] [address] [place] [id number] [place] [address] 47051- 3828 Aug, Lumbago with sciatica, right side M54.41 [place] [address] [place] [id number] [place] [address] 11272- 2087 Aug, Lumbago with sciatica, right side M54.41 [place] [address] 69149- 4741 Aug, [place] [address] [place] [id number] [place] [address] 18597- 3671 Jul, [facility] [address] 35819- 2039 Jul, COPD (chronic obstructive pulmonary disease) with acute bronchitis J44.0 ; Atrial fibrillation, unspecified type I48.91 ; Polysubstance (excluding opioids) dependence F19.20 ; Congestive heart failure, unspecified congestive heart failure chronicity, unspecified congestive heart failure type I50.9 and Lumbago with sciatica, right side M54.41 [facility] [address] [place] [id number] [place] [address] [id number] Jul, [facility] [address] [place] [address]- 5719 Jul, Seizure disorder G40.909 [place] [address] 74866- 9816 Jul, Lumbago with sciatica, right side M54.41 [place] [address] [place] [id number] [place] [address] 03747- 3915 Jul, [facility] [address] 99627- 3999 Jun, Congestive heart failure, unspecified congestive heart failure chronicity, unspecified congestive heart failure type I50.9 ; Lumbago with sciatica, right side M54.41 and Other chronic pain G89.29 [place] [address] 22897- 7351 Jun, [place] [address] 83718- 6930 Jun, [facility] [address] [place] [id number] [place] [address] 76677- 1469 May, Lumbago with sciatica, left side M54.42 [place] [address] 40565- 1820 May, [facility] [address] [place] [id number] [place] [address] 25449 -3976 May, Unspecified fall, initial encounter W19.XXXA [place] [address] [place] [id number] [place] [address] 80746- 2711 May, Lumbago with sciatica, right side M54.41 [place] [address] 55171- 5097 May, [place] [address] [place] [id number] [place] [address] 43726- 3432 May, Bloating R14.0 and Right hip pain M25.551 [place] [address] 86183- 1457 Apr, [place] [address] 80142- 8694 Apr, Lumbago with sciatica, left side M54.42 [place] [address] 09473- 4429 Mar, [facility] WALK IN [place] [address] 30611 -3506 Mar, Lumbago with sciatica, right side M54.41 [facility] WALK IN [address] 47893 [address]228 Mar, Abdominal distension R14.0 [place] [address] 08244- 4760 Mar, Periumbilical abdominal pain R10.33 and Diarrhea, unspecified type R19.7 [facility] [address] [address]69 [address]95 February, Seasonal allergic rhinitis, unspecified allergic rhinitis trigger J30.2 ; Acute middle ear effusion, bilateral H65.193 and Lumbago with sciatica, right side M54.41 [place] [address] 48864- 9751 February, Routine gynecological examination Z01.419 [place] [address] 60749- 8898 Jan, [place] [address] 19623- 0029 Jan, Atrial fibrillation, unspecified type I48.91 [facility] IN [address] 21610 [address]71 Jan, Lumbago with sciatica, right side M54.41 and Wound, open, toe, initial encounter S91.109A [place] [address] [id number] Jan, [facility] [address] [place] [address] 27851 -4659 Jan, Acute bilateral low back pain without sciatica M54.5 [facility] [address] [place] [id number] [place] [address] 47134- 4378 29 Dec, 2016 Congestive heart failure, unspecified congestive heart failure chronicity, unspecified congestive heart failure type I50.9 [facility] [address] [place] [id number] [place] [address] 64790- 4547 Dec, [facility] [address] [place] [id number] [place] [address] 55393- 2609 Dec, Thrush, oral B37.0 and Lumbago with sciatica, right side M54.41 [facility] [address] [place] [id number] [place] [address] 82682- 6803 Dec, [facility] [address] [place] [id number] [place] [address] 52718- 8134 Nov, [facility] [address] [place] [id number] [place] [address] 81778- 8381 Nov, [facility] [address] [place] [id number] [place] [address] 40846- 2342 Oct, Polysubstance (excluding opioids) dependence F19.20 ; Other chronic pain G89.29 and Lumbago with sciatica, right side M54.41 [facility] [address] [place] [id number] [place] [address] 06324- 2886 Oct, [facility] [address] [place] [id number] [place] [address] 08782- 6305 Aug, Lumbago with sciatica, right side M54.41 ; Other chronic pain G89.29 and Anxiety F41.9 [facility] [address] [place] [id number] [place] [address] 25109- 8225 17 Aug, 2016 [facility] [address] 36351- 0590 Aug, [facility] [address] [place] [id number] [place] [address] 38218- 1273 Aug, [facility] [address] [place] [id number] [place] [address] 94956- 5845 Aug, [facility] [address] [place] [id number] [place] [address] 33563- 8781 Aug, [facility] [address] [place] [id number] [place] [address] 05590- 6523 Aug, [facility] [address] [place] [id number] [place] [address] 79780- 4278 Jul, Unspecified mood [affective] disorder F39 and Seizure disorder G40.909 [facility] [address] [place] [id number] [place] [address] 50065- 0543 Jul, [facility] [address] [place] [id number] [place] [address] 07420- 4284 Jul, [facility] [address] [place] [id number] [place] [address] 46913- 2016 Jul, Unspecified mood [affective] disorder F39 and Seizure disorder G40.909 [facility] [address] [place] [id number] [place] [address] 09737- 6330 Jul, Polysubstance (excluding opioids) dependence F19.20 ; COPD ( chronic obstructive pulmonary disease) with acute bronchitis J44.0 ; Congestive heart failure, unspecified congestive heart failure chronicity, unspecified congestive heart failure type I50.9 ; Radiculopathy of lumbosacral region M54.17 and Radiculopathy, thoracic region M54.14 [facility] [address] [place] [id number] [place] [address] 32843- 2548 Jun, Lumbago M54.5 [facility] [address] [place] [id number] [place] [address] 44115- 4992 May, [facility] [address] [place] [id number] [place] [address] 30553- 8214 May, [facility] [address] [place] [id number] [place] [address] 99669- 0516 May, [facility] [address] [place] [id number] [place] [address] 64412- 1082 Apr, COPD (chronic obstructive pulmonary disease) with acute bronchitis J44.0 [facility] [address] 26756- 1387 Apr, Major depressive disorder, recurrent episode, severe F33.2 and Polysubstance (excluding opioids) dependence F19.20 [facility] [address] 18784- 8697 Mar, Major depressive disorder, recurrent episode, severe F33.2 and Polysubstance (excluding opioids) dependence F19.20 [place] [address] [place] [id number] [place] [address] 35746- 8749 Mar, Major depressive disorder, recurrent episode, severe F33.2 and Polysubstance (excluding opioids) dependence F19.20 [facility] [address] [place] [id number] [place] [address] 64080- 1425 Mar, Major depressive disorder, recurrent episode, severe F33.2 and Polysubstance (excluding opioids) dependence F19.20 [facility] [address] [place] [id number] [place] [address] 64341- 9829 February, Major depressive disorder, recurrent episode, severe F33.2 and Polysubstance (excluding opioids) dependence F19.20 [facility] [address] [place] [id number] [place] [address] 40089- 1593 February, [facility] [address] 96282- 2745 February, COPD (chronic obstructive pulmonary disease) with acute bronchitis J44.0 [facility] [address] [place] [id number] [place] [address] 14424 -7882 February, Sore throat J02.9 and Bronchitis J40 [place] [address] [place] [id number] [place] [address] 45584- 7225 Jan, COPD (chronic obstructive pulmonary disease) with acute bronchitis J44.0 [place] [address] [place] [id number] [place] [address] 99903- 7189 Jan, COPD (chronic obstructive pulmonary disease) with acute bronchitis J44.0 [place] [address] 52696- 1619 Jan, [place] [address] 70443- 2539 Dec, Gastritis K29.70 ; Constipation K59.00 and Lumbago M54.[address] 35640- 8703 Dec, COPD (chronic obstructive pulmonary disease) with acute bronchitis J44.[address] 29040- 8357 Nov, Major depressive disorder, recurrent episode, severe F33.2 and Polysubstance (excluding opioids) dependence F19.20 [facility] [address] [place] [address] 38935 -3309 Oct, Oral thrush B37.0 and Drug abuse F19.[address] 48128- 3598 Oct, [address] 97179- 3914 Sep, COPD (chronic obstructive pulmonary disease) with acute bronchitis J44.0 ; Esophagitis, reflux K21.0 ; Seizure disorder G40.909 ; Primary insomnia F51.01 ; Edema, due to unspecified malnutrition type, unspecified type R60.9 ; Arthritis M19.90 and Thrush B37.[address] 77088- 7763 Aug, [place] [address] [address]- 8136 Aug, [facility] [address] [address]- 4801 Aug, [facility] [address] [address]- 1486 Jul, [facility] [address] [place] [address] 59954- 5586 Jun, [facility] [address] [place] [address] 93863- 9521 Jun, Counseling on substance use and abuse V65.42 and Obstructive chronic bronchitis, with (acute) exacerbation 491.21 [facility] [address] [address]- 2046 May, [facility] [address] [place] [id number] [place] [address] 64390- 3411 Apr, [facility] [address] [address]- 3069 Apr, Abdominal pain 789.00 and Back pain 724.5 [facility] [address] [address]- 3698 Mar, Back pain 724.5 and Illicit drug use 305.90 [facility] [address] [address]- 1716 February, Onychomycosis 110.1 [facility] [address] [address]- 3586 February, Breast cancer screening V76.10 [facility] [address] [address]- 1626 February, [facility] [address] [address]- 9986 February, [facility] [address] [place] [address] 44609- 5611 February, Cough 786.2 ; Obstructive chronic bronchitis, with (acute) exacerbation 491.21 ; Vomiting 787.03 ; 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 and Gastritis 535.50 [facility] [address] [place] [address] 77951- 1517 14 Jan, 2015 [facility] [address] [place] [id number] [place] [address] 76273- 1964 Jan, [facility] [address] [place] [id number] [place] [address] 41214- 2852 24 Dec, 2014 [facility] [address] [place] [id number] [place] [address] 49730- 7356 Dec, [facility] [address] [place] [id number] [place] [address] 69100- 6323 Dec, [facility] [address] [place] [id number] [place] [address] 45099- 7213 Dec, [facility] [address] [place] [id number] [place] [address] 96831- 1396 Dec, [facility] [address] [place] [id number] [place] [address] 24614- 1859 Dec, [facility] [address] [place] [id number] [place] [address] 86507- 8879 Dec, [facility] [id number] [place] [address] 34715- 4684 Dec, [facility] [address] [place] [id number] [place] [address] 66997- 6693 Dec, [facility] [address] [place] [id number] [place] [address] 109322- 7293 Sep, [facility] [address] [place] [id number] [place] [address] 437520- 7816 Sep, [facility] [address] 0451 Sep, [facility] [address] [facility] [id number] [place] [address]- 6462 Sep, [facility] [place] [facility] [address] [id number] [place] [address]- 9656 Sep, [facility] [place] [facility] [address] [id number] [place] [address]- 2364 Sep, [facility] [place] [facility] [address] [id number] [place] [address]- 6479 Sep, [facility] [place] [facility] [address] [id number] [place] [address]- 9635 Sep, [facility] [place] [facility] [address] [id number] [place] [address]- 7899 Sep, [facility] [place] [facility] [address] [id number] [place] [address]- 0712 Sep, [facility] [place] [facility] [address] [id number] [place] [address]- 7398 Aug, [facility] [place] [facility] [address] [id number] [place] [address]- 7011 Aug, [facility] [place] [facility] [address] [id number] [place] [address]- 4780 Aug, [facility] [place] [facility] [address] [id number] [place] [address]- 1936 Aug, [facility] [place] [facility] [address] [id number] [place] [address]- 7855 Jul, [facility] [place] [facility] [address] [id number] [place] [address]- 0525 Jul, [facility] [place] [facility] [address] [id number] [place] [address]- 5885 Jun, [facility] [place] [facility] [address] [id number] [place] [address]- 2546 Jun, [facility] [place] [facility] [address] [id number] [place] [address]- 3317 May, [facility] [place] [facility] [address] [id number] [place] [address]- 5206 May, [facility] [place] [facility] [address] [id number] [place] [address]- 6437 May, [facility] [place] [facility] [address] [id number] [place] [address]- 9343 May, [facility] [place] [facility] [address] [id number] [place] [address]- 7098 May, [facility] [place] [facility] [address] [id number] [place] [address] May, [facility] [place] [facility] [address] [id number] [place] [address] Apr, [facility] [place] [facility] [address] [id number] [place] [address] Apr, [facility] [place] [facility] [address] [id number] [place] [address] Apr, [facility] [place] [facility] [address] [id number] [place] [address] Apr, [facility] [place] [facility] [address] [id number] [place] [address] February, [facility] [place] [facility] [address] [id number] [place] [address] February, [facility] [place] [facility] [address] [id number] [place] [address] Oct, [facility] [place] [facility] [address] [id number] [place] [address] Oct, [facility] [place] [facility] [address] [id number] [place] [address] Oct, [facility] [place] [facility] [address] [id number] [place] [address] Oct, [facility] [place] [facility] [address] [id number] [place] [address] 17 Sep, 2013 [facility] [place] [facility] [address] [id number] [place] [address] 17 Sep, 2013 [facility] [place] [facility] [address] [id number] [place] [address] [address] Sep, [facility] [place] [facility] [address] [id number] [place] [address] Sep, [facility] [place] [facility] [address] [id number] [place] [address] Aug, [facility] [place] [facility] [address] [id number] [place] [address] Aug, [facility] [place] [facility] [address] [id number] [place] [address] Aug, [facility] [place] [facility] [address] [id number] [place] [address] Aug, [facility] [place] [facility] [address] [id number] [place] [address] Jul, [facility] [place] [facility] [address] [id number] [place] [address] Jul, [facility] [place] [facility] [address] [facility] [id number] [place] [address] Jul, [facility] [place] [facility] [address] [id number] [place] [address] Jul, [facility] [place] [facility] [address] [id number] [address] Jul, [facility] [place] [facility] [address] [id number] [place] [address] Jul, [facility] [place] [facility] [address] [facility] [id number] [place] [address] Jul, [facility] [place] [facility] [address] [facility] [id number] [address] Jul, [facility] [place] [facility] [address] [facility] [id number] [place] [address] Jul, [facility] [address] [facility] [id number] [address] Jul, [facility] [address] [facility] [id number] [place] [address] Jun, [facility] [address] [facility] [id number] [place] [address] May, [facility] [address] [facility] [id number] [place] [address] Apr, [facility] [address] [facility] [id number] [place] [address] Apr, [facility] [address] [id number] [place] [address] Apr, [facility] [id number] [address] Mar, [facility] [address] [id number] [place] [address] Mar, [facility] [address] [id number] [address] Mar, [facility] [address] [id number] [address] Mar, [facility] [address] [id number] [address] Mar, [facility] [address] [facility] [id number] [place] [address] Sep, [facility] [address] [facility] [id number] [place] [address] February, [facility] [address] [facility] [id number] [place] [address] Jan, IMMUNIZATIONS Vaccine Route Administration Date Status TORADOL (IM) 60 MG/2ML (UP TO 15 MG) IM Intramuscular May 08, 2018 Administered KENALOG 40 MG/ML (PER 10 MG) IM Intramuscular May 08, 2018 Administered SOCIAL HISTORY Never Assessed REASON FOR VISIT Pain management (chronic)- Kashif Worthington RN PLAN OF CARE VITAL SIGNS Height 64 in 2018-05-08 Weight 139 lbs 2018-05-08 Temperature 98.0 degrees Fahrenheit 2018-05-08 Heart Rate 70 bpm 2018-05-08 Respiratory Rate 18 2018-05-08 BMI 23.86 kg/m2 2018-05-08 Blood pressure systolic 112 mmHg 2018-05-08 Blood pressure diastolic 70 mmHg 2018-05-08 MEDICATIONS Medication Instructions Dosage Frequency Start Date End Date Duration Status Acidophilus - Not-Taking Risperdal 1 MG Orally 2 times a day 1 tablet 12h Jan, 30 day(s ) Active Xarelto 20 MG Orally Once a day 1 tablet with food 24h Active Prazosin HCl 2 MG Orally Once a day 1 capsule at bedtime 24h 30 Not- Taking Pantoprazole Sodium 40 mg Orally Once a day 1 tablet 24h Not- Taking Prazosin HCl 5 mg Orally Once a day 1 capsule at bedtime 24h 30 Active Potassium Chloride ER 20 MEQ Orally twice a day 1 tablet with food 12h Active Furosemide 20 MG Orally twice a day 1 tablet 12h Active Metoprolol Tartrate 25 MG Orally Twice a day 1 tablet with food 12h Active Cyclobenzaprine HCl 10 mg Orally 2 times a day, deliver to Yanira at [facility] 1 tablet as needed Jun, Active Omeprazole 40 MG Orally at bedtime 1 capsule Active Cartia XT 180 MG Orally Once a day 1 capsule 24h Active Digoxin 125 MCG TAKE ONE TABLET BY MOUTH EVERY DAY 90 Active Polyethylene Glycol 3350 17 gm/dose Orally 2 times a day 1 packet mixed with 8 ounces of fluid 12h Active Oxygen 2 L/NC Not-Taking Loratadine 10 MG Orally Once a day 1 tablet 24h 30 day(s) Active Keppra 1000 MG Orally every 12 hrs 1 tablet 12h 90 Active Meclizine HCl 25 MG Orally once daily as needed TAKE ONE TABLET BY MOUTH EVERY DAY NEEDED FOR DIZZINESS 30 Active Albuterol Sulfate HFA 108 (90 Base) MCG/ACT Inhalation every 6 hrs 2 puffs as needed 6h Active RESULTS No Results PROCEDURES Procedure Date Ordered Result Body Site KENALOG 40 MG/ML (PER 10 MG) May 08, 2018 THER/PROPH/DIAG INJ, SC/IM May 08, 2018 TORADOL (IM) 60 MG/2ML (UP TO 15 MG) May 08, 2018 INSTRUCTIONS MEDICATIONS ADMINISTERED No Known Medications MEDICAL [...] bleeding 2015 Hospitalization History A fib with [facility] 02/06/17 Hospitalization History Altered mental status, lethargy-[facility] 07/10/17 Hospitalization History Chest pain-[facility] 08/05/17 Hospitalization History [facility] 10/2017 Hospitalization History Low potassium, A fib 01/2018 Hospitalization History Head injury 03/2018
--- OUTSIDE RECORDS SUMMARY | 2018-07-13 15:03 | XMS REPORT ---
Author Author ZEE QUINTANA [facility] Address [address] [place] [address] Care Team Providers Care Aircraft Stress Analyst Name Role Phone ZEE QUINTANA Unavailable PROBLEMS Type Condition ICD9-CM Code RGV09-LC Code Onset Dates Condition Status SNOMED Code Problem Other chronic pain G89.29 Active 48202258 Problem Lumbago with sciatica, left side M54.42 Active 313112606 Problem Seasonal allergic rhinitis, unspecified allergic rhinitis trigger J30.2 Active 718785593 Problem Methamphetamine abuse F15.10 Active 036272208 Problem Primary insomnia F51.01 Active 031650007 Problem Unsteady gait R26.81 Active 76678800 Problem Seizure disorder G40.909 Active 774300049 Problem Fibromyalgia M79.7 Active 859407768 Problem Infection of right eye H44.001 Active [id number] Problem Chronic fatigue R53.82 Active 15533595 Problem Chronic pain syndrome G89.4 Active 941654846 Problem Esophagitis, reflux K21.0 Active 271954444 Problem COPD (chronic obstructive pulmonary disease) with acute bronchitis J44.0 Active [id number] Problem Edema, due to unspecified malnutrition type, unspecified type R60.9 Active 901484416 Problem Atrial fibrillation, unspecified type I48.91 Active 76598581 Problem Congestive heart failure, unspecified congestive heart failure chronicity, unspecified congestive heart failure type I50.9 Active 84922005 Problem Unspecified mood [affective] disorder F39 Active 723805941 Problem Major depressive disorder, recurrent episode, severe F33.2 Active 463122238531 Problem Lumbago with sciatica, right side M54.41 Active 569727225 Problem Polysubstance (excluding opioids) dependence F19.20 Active 99329436 Problem Anxiety F41.9 Active 18366062 ALLERGIES No Information ENCOUNTERS Encounter Location Date Diagnosis [facility] [id number] [place] [address] 32386- 7256 May, Anxiety F41.9 [facility] [id number] [place] [address] 32064- 6641 May, [facility] [id number] [place] [address] 66215 -0107 May, Methamphetamine abuse F15.10 [facility] [address] 77482- 1313 May, [facility] [id number] [place] [address] 81983- 5847 Apr, [facility] [id number] [place] [address] 83204- 4361 Apr, Lumbago with sciatica, right side M54.41 ; Chronic pain syndrome G89.4 and Primary insomnia F51.01 [facility] [id number] [place] [address] 97827 -4271 Apr, Acute right ankle pain M25.571 [facility] [place] [id number] [place] [address] 99943 -3381 Apr, [facility] [place] [id number] [place] [address] 36751 -1694 Apr, Seasonal allergic rhinitis, unspecified trigger J30.2 and Acute right ankle pain M25.571 [facility] [facility] [id number] [place] [address] 67890- 8965 Mar, Primary insomnia F51.01 and Anxiety F41.9 [facility] [facility] [id number] [place] [address] 74675- 5071 Mar, [place] [id number] [place] [address] 93513- 6460 Mar, [facility] [id number] [place] [address] 34702- 0241 Mar, Lumbago with sciatica, left side M54.42 [facility] [id number] [place] [address] 14184- 9040 Mar, [facility] [id number] [place] [address] 35203- 4528 Mar, Anxiety F41.9 [facility] [id number] [place] [address] 61461- 2773 February, [facility] [id number] [place] [address] 30105- 8911 February, Unspecified mood [affective] disorder F39 [facility] [id number] [place] [address] 02727- 6090 February, [facility] [id number] [place] [address] 56181- 3965 February, [facility] [id number] [place] [address] 18306 -8701 February, Hordeolum externum of right upper eyelid H00.011 and Paronychia of finger of right hand L03.011 [facility] [id number] [place] [address] 17906- 2893 February, [facility] [id number] [place] [address] 01987- 1815 February, Primary insomnia F51.01 ; Atrial fibrillation, unspecified type I48.91 ; Unsteady gait R26.81 ; General weakness R53.1 ; Chronic fatigue R53.82 ; Hypokalemia E87.6 and Other chronic pain G89.29 [facility] [id number] [place] [address] 55933- 7808 February, [facility] [id number] [place] [address] 08584- 6447 Jan, Lumbago with sciatica, right side M54.41 [facility] [id number] [place] [address] 32134- 9080 Jan, Anxiety F41.9 ; Chronic pain syndrome G89.4 ; Folliculitis L73.9 and Fibromyalgia M79.7 [place] [address] 90058- 2339 Jan, Lumbago with sciatica, right side M54.41 [place] [address] 59603- 2333 Dec, [place] [address] 33985- 5697 Nov, Lumbago with sciatica, right side M54.41 [place] [address] 01249- 4159 Nov, [place] [address] 17312- 6709 Nov, Unspecified mood [affective] disorder F39 ; Hypokalemia E87.6 and Anemia, unspecified type D64.9 [place] [address] 62101- 4800 Nov, [place] [address] 40098- 3130 Oct, Lumbago with sciatica, right side M54.41 [facility] [place] [id number] [place] [address] 15760 -9522 Aug, Congestive heart failure, unspecified congestive heart failure chronicity, unspecified congestive heart failure type I50.9 and Peripheral edema R60.9 [place] [id number] [place] [address] 97876- 5799 17 Aug, 2017 Polysubstance (excluding opioids) dependence F19.20 and Lumbago with sciatica, left side M54.42 [place] [id number] [place] [address] 77228- 7649 17 Aug, 2017 [facility] [address] 99145 -7566 Aug, Infection of right eye H44.001 [facility] [id number] [place] [address] 53954- 5013 Aug, Congestive heart failure, unspecified congestive heart failure chronicity, unspecified congestive heart failure type I50.9 and Other chronic pain G89.29 [place] [id number] [place] [address] 34742- 5762 Aug, Lumbago with sciatica, right side M54.41 [place] [id number] [place] [address] 25005- 3176 Aug, Lumbago with sciatica, right side M54.41 [place] [id number] [place] [address] 90928- 7206 Aug, [place] [id number] [place] [address] 34162- 6830 Jul, [place] [address] 17715- 0072 Jul, COPD (chronic obstructive pulmonary disease) with acute bronchitis J44.0 ; Atrial fibrillation, unspecified type I48.91 ; Polysubstance (excluding opioids) dependence F19.20 ; Congestive heart failure, unspecified congestive heart failure chronicity, unspecified congestive heart failure type I50.9 and Lumbago with sciatica, right side M54.41 [facility] [id number] [place] [address] [id number] Jul, [facility] [id number] [place] [address] 81194- 2357 Jul, Seizure disorder G40.909 [place] [id number] [place] [address] 40324- 4417 Jul, Lumbago with sciatica, right side M54.41 [facility] [id number] [place] [address] 83080- 6301 Jul, [facility] [address] [place] [address]- 7534 Jun, Congestive heart failure, unspecified congestive heart failure chronicity, unspecified congestive heart failure type I50.9 ; Lumbago with sciatica, right side M54.41 and Other chronic pain G89.29 [place] [id number] [place] [address] 57567- 4040 Jun, [place] [address] 58676- 7897 Jun, [place] [id number] [place] [address] 60116- 8846 May, Lumbago with sciatica, left side M54.42 [place] [id number] [place] [address] 64933- 7941 May, [facility] [id number] [place] [address] 11721 -1257 May, Unspecified fall, initial encounter W19.XXXA [place] [id number] [place] [address] 34855- 7262 May, Lumbago with sciatica, right side M54.41 [place] [id number] [place] [address] 09727- 1955 May, [place] [id number] [place] [address] 28155- 5305 May, Bloating R14.0 and Right hip pain M25.551 [place] [id number] [place] [address] 76895- 6128 Apr, [place] [id number] [place] [address] 35438- 4471 Apr, Lumbago with sciatica, left side M54.42 [place] [id number] [place] [address] 96711- 0820 Mar, [facility] [id number] [place] [address] 90289 -4564 Mar, Lumbago with sciatica, right side M54.41 [facility] [place] [id number] [place] [address] 12037 -9602 Mar, Abdominal distension R14.0 [place] [id number] [place] [address] 85852- 5764 Mar, Periumbilical abdominal pain R10.33 and Diarrhea, unspecified type R19.7 [facility] [place] [address] 34708 -8455 February, Seasonal allergic rhinitis, unspecified allergic rhinitis trigger J30.2 ; Acute middle ear effusion, bilateral H65.193 and Lumbago with sciatica, right side M54.41 [place] [id number] [place] [address] 07410- 5881 February, Routine gynecological examination Z01.419 [place] [address] 43350- 2898 Jan, [place] [id number] [place] [address] 56845- 0317 Jan, Atrial fibrillation, unspecified type I48.91 [facility] [place] [id number] [place] [address] 43853 -9322 Jan, Lumbago with sciatica, right side M54.41 and Wound, open, toe, initial encounter S91.109[address] [place] [id number] [place] [address] [id number] Jan, [facility] [place] [id number] [place] [address] 06539 -6359 Jan, Acute bilateral low back pain without sciatica M54.5 [place] [id number] [place] [address] 44182- 0491 Dec, Congestive heart failure, unspecified congestive heart failure chronicity, unspecified congestive heart failure type I50.9 [place] [id number] [address]- 7907 Dec, [facility] [id number] [place] [address] 06151- 6327 Dec, Thrush, oral B37.0 and Lumbago with sciatica, right side M54.41 [facility] [id number] [place] [address] 22329- 0748 Dec, [facility] [id number] [place] [address] 41294- 3866 Nov, [facility] [id number] [place] [address] 69144- 6680 Nov, [facility] [id number] [place] [address] 29735- 2113 Oct, Polysubstance (excluding opioids) dependence F19.20 ; Other chronic pain G89.29 and Lumbago with sciatica, right side M54.41 [facility] [id number] [place] [address] 60225- 6386 Oct, [facility] [id number] [place] [address] 74018- 3127 Aug, Lumbago with sciatica, right side M54.41 ; Other chronic pain G89.29 and Anxiety F41.9 [facility] [id number] [place] [address] 13434- 5715 Aug, [facility] [id number] [place] [address] 68473- 1851 Aug, [facility] [id number] [place] [address] 20256- 5042 Aug, [facility] [id number] [place] [address] 65874- 6521 Aug, [facility] [id number] [address]- 8587 Aug, [facility] [address] [address]- 2282 Aug, [facility] [id number] [place] [address] 14313- 0295 Jul, Unspecified mood [affective] disorder F39 and Seizure disorder G40.909 [facility] [id number] [place] [address] 83587- 6824 Jul, [facility] [id number] [place] [address] 81086- 8090 Jul, [facility] [id number] [place] [address] 16310- 5090 Jul, Unspecified mood [affective] disorder F39 and Seizure disorder G40.909 [facility] [id number] [place] [address] 44446- 0858 Jul, Polysubstance (excluding opioids) dependence F19.20 ; COPD ( chronic obstructive pulmonary disease) with acute bronchitis J44.0 ; Congestive heart failure, unspecified congestive heart failure chronicity, unspecified congestive heart failure type I50.9 ; Radiculopathy of lumbosacral region M54.17 and Radiculopathy, thoracic region M54.14 [facility] [id number] [place] [address] 89948- 1831 Jun, Lumbago M54.5 [place] [id number] [place] [address] 42048- 4892 May, [facility] [id number] [place] [address] 50001- 8058 May, [facility] [id number] [place] [address] 63648- 9503 May, [facility] [id number] [place] [address] 47197- 6303 Apr, COPD (chronic obstructive pulmonary disease) with acute bronchitis J44.0 [facility] [id number] [place] [address] 02977- 1199 Apr, Major depressive disorder, recurrent episode, severe F33.2 and Polysubstance (excluding opioids) dependence F19.20 [facility] [id number] [place] [address] 57010- 4640 Mar, Major depressive disorder, recurrent episode, severe F33.2 and Polysubstance (excluding opioids) dependence F19.20 [facility] [address] 32857- 8678 Mar, Major depressive disorder, recurrent episode, severe F33.2 and Polysubstance (excluding opioids) dependence F19.20 [facility] [address] 57972- 8138 Mar, Major depressive disorder, recurrent episode, severe F33.2 and Polysubstance (excluding opioids) dependence F19.20 [place] [address] 10734- 5872 February, Major depressive disorder, recurrent episode, severe F33.2 and Polysubstance (excluding opioids) dependence F19.20 [place] [address] 19286- 2360 February, [facility] [address] 04293- 1351 February, COPD (chronic obstructive pulmonary disease) with acute bronchitis J44.0 [facility] [id number] [place] [address] 41184 -9274 February, Sore throat J02.9 and Bronchitis J40 [facility] [id number] [place] [address] 91487- 8998 Jan, COPD (chronic obstructive pulmonary disease) with acute bronchitis J44.0 [facility] [address] 54418- 5753 Jan, COPD (chronic obstructive pulmonary disease) with acute bronchitis J44.0 [facility] [address] 78580- 1852 14 Jan, 2016 [facility] [address] 55412- 7388 Dec, Gastritis K29.70 ; Constipation K59.00 and Lumbago M54.5 [facility] [address] 55718- 4816 Dec, COPD (chronic obstructive pulmonary disease) with acute bronchitis J44.0 [facility] [address] 57536- 5045 18 Nov, 2015 Major depressive disorder, recurrent episode, severe F33.2 and Polysubstance (excluding opioids) dependence F19.20 [facility] [address] 18585 -0923 Oct, Oral thrush B37.0 and Drug abuse F19.10 [facility] [address] 71433- 9941 Oct, [facility] [address] 37555- 1213 Sep, COPD (chronic obstructive pulmonary disease) with acute bronchitis J44.0 ; Esophagitis, reflux K21.0 ; Seizure disorder G40.909 ; Primary insomnia F51.01 ; Edema, due to unspecified malnutrition type, unspecified type R60.9 ; Arthritis M19.90 and Thrush B37.0 [facility] [id number] [place] [address] 18807- 3016 Aug, [facility] [address] 85824- 9556 Aug, [place] [address] 73774- 4400 Aug, [place] [address] 72864- 4174 09 Jul, 2015 [facility] [address] 08943- 1916 Jun, [facility] [address] [place] [address] 47242- 9221 Jun, Counseling on substance use and abuse V65.42 and Obstructive chronic bronchitis, with (acute) exacerbation 491.21 [facility] [id number] [place] [address] [id number]- 9068 May, [facility] [address] 15561- 9114 Apr, [facility] [id number] [place] [address] 56827- 4392 Apr, Abdominal pain 789.00 and Back pain 724.5 [place] [id number] [place] [address] 35234- 1450 Mar, Back pain 724.5 and Illicit drug use 305.90 [place] [id number] [place] [address] 56704- 2441 February, Onychomycosis 110.1 [place] [id number] [place] [address] 81199- 4469 February, Breast cancer screening V76.10 [place] [id number] [place] [address] 14562- 5744 February, [place] [id number] [place] [address] 77220- 0334 February, [place] [id number] [place] [address] 24914- 8758 February, Cough 786.2 ; Obstructive chronic bronchitis, with (acute) exacerbation 491.21 ; Vomiting 787.03 ; 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 and Gastritis 535.50 [facility] [id number] [place] [address] [id number]- 5200 Jan, [place] [id number] [place] [address] 33137- 0020 Jan, [facility] [place] [facility] [address] [id number] [place] [address]- 1101 24 Dec, 2014 [facility] [place] [facility] [address] [id number] [place] [address]- 3145 20 Dec, 2014 [facility] [place] [facility] [address] [id number] [place] [address]- 9736 20 Dec, 2014 [facility] [place] [facility] [address] [id number] [place] [address]- 0846 13 Dec, 2014 [facility] [place] [facility] [address] [id number] [place] [address]- 7661 13 Dec, 2014 [facility] [place] [facility] [address] [id number] [place] [address]- 2425 12 Dec, 2014 [facility] [place] [facility] [address] [id number] [place] [address]- 6690 12 Dec, 2014 [facility] [place] [facility] [address] [id number] [place] [address]- 4682 12 Dec, 2014 [facility] [place] [facility] [address] [id number] [place] [address]- 4163 12 Dec, 2014 [facility] [place] [facility] [address] [id number] [place] [address]- 8891 Sep, [facility] [place] [facility] [address] [id number] [place] [address]- 0266 Sep, [facility] [place] [facility] [address] [id number] [place] [address]- 1293 Sep, [facility] [place] [facility] [address] [id number] [place] [address]- 7784 Sep, [facility] [place] [facility] [address] [id number] [place] 4002 Sep, [facility] [place] [facility] [address] [id number] [place] [address]- 4738 Sep, [facility] [place] [facility] [address] [id number] [place] [address]- 2850 Sep, [facility] [place] [facility] [address] [id number] [place] [address]- 8579 Sep, [facility] [place] [facility] [address] [id number] [place] [address]- 3049 Sep, [facility] [place] [facility] [address] [id number] [place] [address]- 5435 Sep, [facility] [place] [facility] [address] [id number] [place] [address]- 9248 Aug, [facility] [place] [facility] [address] [id number] [place] [address] Aug, [facility] [place] [facility] [address] [id number] [place] [address] Aug, [facility] [place] [facility] [address] [id number] [place] [address] Aug, [facility] [place] [facility] [address] [id number] [place] [address] Jul, [facility] [place] [facility] [address] [id number] [place] [address] Jul, [facility] [place] [facility] [address] [id number] [place] [address] Jun, [facility] [place] [facility] [address] [id number] [place] [address] Jun, [facility] [place] [facility] [address] [id number] [place] [address] May, [facility] [place] [facility] [address] [id number] [place] [address] May, [facility] [place] [facility] [address] [id number] [place] [address] May, [facility] [place] [facility] [address] [id number] [place] [address] May, [facility] [place] [facility] [address] [id number] [place] [address] May, [facility] [place] [facility] [address] [id number] [place] [address] May, [facility] [place] [facility] [address] [id number] [place] [address] Apr, [facility] [place] [facility] [address] [id number] [place] [address] Apr, [facility] [place] [facility] [address] [id number] [place] [address] Apr, [facility] [place] [facility] [address] [id number] [place] [address] Apr, [facility] [place] [facility] [address] [id number] [place] [address] February, [facility] [place] [facility] [address] [id number] [place] [address] February, [facility] [place] [facility] [address] [id number] [place] [address] Oct, [facility] [place] [facility] [address] [id number] [place] [address] Oct, [facility] [place] [facility] [address] [id number] [place] [address] Oct, [facility] [place] [facility] [address] [id number] [place] [address] Oct, [facility] [place] [facility] [address] [id number] [place] [address] Sep, [facility] [place] [facility] [address] [id number] [place] [address] Sep, [facility] [place] [facility] [address] [id number] [place] [address] Sep, [facility] [place] [facility] [address] [id number] [place] [address] Sep, [facility] [place] [facility] [address] [id number] [place] [address] Aug, [facility] [place] [facility] [address] [id number] [place] [address] Aug, [facility] [place] [facility] [address] [id number] [place] Aug, [facility] [place] [facility] [address] [id number] [place] [address] Aug, [facility] [place] [facility] [address] [id number] [place] [address] Jul, [facility] [place] [facility] [address] [id number] [place] [address] Jul, [facility] [place] [facility] [address] [id number] [place] [address] Jul, [facility] [place] [facility] [address] [id number] [place] [address] Jul, [facility] [place] [facility] [address] [id number] [place] [address] Jul, [facility] [place] [facility] [address] [id number] [place] [address] Jul, [facility] [place] [facility] [address] [id number] [place] [address] Jul, [facility] [place] [facility] [address] [id number] [place] [address] Jul, [facility] [place] [facility] [address] [id number] [place] [address] Jul, [facility] [place] [facility] [address] [id number] [place] [address] Jul, [facility] [place] [facility] [address] [id number] [place] [address] Jun, [facility] [place] [facility] [address] [id number] [place] [address] May, [facility] [address] [id number] [address] Apr, [facility] [id number] [place] [address] Apr, [facility] [id number] [address] Apr, [facility] [id number] [address] Mar, [facility] [id number] [address] Mar, [facility] [id number] [address] Mar, [facility] [id number] [address] Mar, [facility] [id number] [address] Mar, [facility] [address] [id number] [address] Sep, [facility] [id number] [address] February, [facility] [address] [id number] [address] Jan, IMMUNIZATIONS No Known Immunizations SOCIAL HISTORY Never Assessed REASON FOR VISIT PLAN OF CARE VITAL SIGNS MEDICATIONS Unknown [...] bleeding 2015 Hospitalization History A fib with [facility] 02/06/17 Hospitalization History Altered mental status, lethargy-[facility] 07/10/17 Hospitalization History Chest pain-[facility] 08/05/17 Hospitalization History [facility] 10/2017 Hospitalization History Low potassium, A fib 01/2018 Hospitalization History Head injury 03/2018
--- OUTSIDE RECORDS SUMMARY | 2018-07-13 15:03 | XMS REPORT ---
Author Author ZEE QUINTANA [facility] Address [address] [place] [address] Care Team Providers Care Deburr Operator Name Role Phone ZEE QUINTANA Unavailable PROBLEMS Type Condition ICD9-CM Code PNP90-HN Code Onset Dates Condition Status SNOMED Code Problem Other chronic pain G89.29 Active 29738024 Problem Lumbago with sciatica, left side M54.42 Active 280225014 Problem Seasonal allergic rhinitis, unspecified allergic rhinitis trigger J30.2 Active 072538777 Problem Methamphetamine abuse F15.10 Active 425187242 Problem Primary insomnia F51.01 Active 760428662 Problem Unsteady gait R26.81 Active 29788787 Problem Seizure disorder G40.909 Active 989478151 Problem Fibromyalgia M79.7 Active 491264618 Problem Infection of right eye H44.001 Active [id number] Problem Chronic fatigue R53.82 Active 00272047 Problem Chronic pain syndrome G89.4 Active 600695175 Problem Esophagitis, reflux K21.0 Active 396184755 Problem COPD (chronic obstructive pulmonary disease) with acute bronchitis J44.0 Active 844592005483019 Problem Edema, due to unspecified malnutrition type, unspecified type R60.9 Active 248376146 Problem Atrial fibrillation, unspecified type I48.91 Active 39280099 Problem Congestive heart failure, unspecified congestive heart failure chronicity, unspecified congestive heart failure type I50.9 Active 68695676 Problem Unspecified mood [affective] disorder F39 Active 992492638 Problem Major depressive disorder, recurrent episode, severe F33.2 Active 003044159947 Problem Lumbago with sciatica, right side M54.41 Active 414583595 Problem Polysubstance (excluding opioids) dependence F19.20 Active 37681610 Problem Anxiety F41.9 Active 45955643 ALLERGIES No Information ENCOUNTERS Encounter Location Date Diagnosis [facility], [place] [id number] [place] [address] 33061- 2725 May, Anxiety F41.9 [facility], [place] [id number] [place] [address] 38124- 9167 May, [facility] [id number] [place] [address] 31569 -3264 May, Methamphetamine abuse F15.10 [facility], [place] [address] 07264- 6509 May, [facility], [place] [id number] [place] [address] 23328- 6525 Apr, [facility], [place] [id number] [place] [address] 09586- 7604 Apr, Lumbago with sciatica, right side M54.41 ; Chronic pain syndrome G89.4 and Primary insomnia F51.01 [facility] [id number] [place] [address] 77033 -2614 Apr, Acute right ankle pain M25.571 [facility] [place] [id number] [place] [address] 06904 -5647 Apr, [facility] [place] [id number] [place] [address] 54420 -6364 Apr, Seasonal allergic rhinitis, unspecified trigger J30.2 and Acute right ankle pain M25.571 [place] [id number] [place] [address] 26206- 9010 Mar, Primary insomnia F51.01 and Anxiety F41.9 [place] [id number] [place] [address] 54382- 7940 Mar, [place] [id number] [place] [address] 44168- 5752 Mar, [facility], [place] [id number] [place] [address] 56013- 6020 Mar, Lumbago with sciatica, left side M54.42 [facility], [place] [id number] [place] [address] 12294- 3706 Mar, [facility], [place] [id number] [place] [address] 36947- 5657 Mar, Anxiety F41.9 [facility], [place] [id number] [place] [address] 52169- 0407 February, [facility], [place] [id number] [place] [address] 05068- 6548 February, Unspecified mood [affective] disorder F39 [facility], [place] [id number] [place] [address] 03687- 9341 February, [facility], [place] [id number] [place] [address] 54245- 0023 February, [facility] [id number] [place] [address] 51537 -2145 February, Hordeolum externum of right upper eyelid H00.011 and Paronychia of finger of right hand L03.011 [facility], [place] [id number] [place] [address] 53472- 6389 February, [facility], [place] [id number] [place] [address] 10211- 9390 February, Primary insomnia F51.01 ; Atrial fibrillation, unspecified type I48.91 ; Unsteady gait R26.81 ; General weakness R53.1 ; Chronic fatigue R53.82 ; Hypokalemia E87.6 and Other chronic pain G89.29 [facility], [place] [id number] [place] [address] 24908- 0914 February, [facility], [place] [id number] [place] [address] 07941- 6110 Jan, Lumbago with sciatica, right side M54.41 [facility], [place] [id number] [place] [address] 32982- 3791 Jan, Anxiety F41.9 ; Chronic pain syndrome G89.4 ; Folliculitis L73.9 and Fibromyalgia M79.7 [place] [address] 03862- 6130 Jan, Lumbago with sciatica, right side M54.41 [place] [address] 65821- 9615 Dec, [place] [address] 76214- 8254 Nov, Lumbago with sciatica, right side M54.41 [place] [address] 32034- 0479 Nov, [place] [address] 07643- 7174 Nov, Unspecified mood [affective] disorder F39 ; Hypokalemia E87.6 and Anemia, unspecified type D64.9 [place] [address] 65733- 4463 Nov, [place] [address] 81396- 3312 Oct, Lumbago with sciatica, right side M54.41 [facility] [place] [id number] [place] [address] 84045 -6509 Aug, Congestive heart failure, unspecified congestive heart failure chronicity, unspecified congestive heart failure type I50.9 and Peripheral edema R60.9 [place] [id number] [place] [address] 95199- 9025 17 Aug, 2017 Polysubstance (excluding opioids) dependence F19.20 and Lumbago with sciatica, left side M54.42 [place] [id number] [place] [address] 44012- 0815 17 Aug, 2017 [facility] [address] 43356 -5124 Aug, Infection of right eye H44.001 [facility], [place] [id number] [place] [address] 69244- 2421 Aug, Congestive heart failure, unspecified congestive heart failure chronicity, unspecified congestive heart failure type I50.9 and Other chronic pain G89.29 [place] [id number] [place] [address] 05455- 8143 Aug, Lumbago with sciatica, right side M54.41 [place] [id number] [place] [address] 16528- 4523 Aug, Lumbago with sciatica, right side M54.41 [place] [id number] [place] [address] 55690- 4249 Aug, [place] [id number] [place] [address] 66907- 0615 Jul, [place] [address] 16568- 5145 Jul, COPD (chronic obstructive pulmonary disease) with acute bronchitis J44.0 ; Atrial fibrillation, unspecified type I48.91 ; Polysubstance (excluding opioids) dependence F19.20 ; Congestive heart failure, unspecified congestive heart failure chronicity, unspecified congestive heart failure type I50.9 and Lumbago with sciatica, right side M54.41 [facility] [id number] [place] [address] [id number] Jul, [facility], [place] [id number] [place] [address] 11128- 9902 Jul, Seizure disorder G40.909 [place] [id number] [place] [address] 53710- 6365 Jul, Lumbago with sciatica, right side M54.41 [facility], [place] [id number] [place] [address] 93522- 9999 Jul, [facility], [place] [address] [place] [address]- 5955 Jun, Congestive heart failure, unspecified congestive heart failure chronicity, unspecified congestive heart failure type I50.9 ; Lumbago with sciatica, right side M54.41 and Other chronic pain G89.29 [place] [id number] [place] [address] 33469- 8507 Jun, [place] [address] 19444- 4649 Jun, [place] [id number] [place] [address] 15975- 1410 May, Lumbago with sciatica, left side M54.42 [place] [id number] [place] [address] 87647- 2906 May, [facility] [id number] [place] [address] 30495 -9485 May, Unspecified fall, initial encounter W19.XXXA [place] [id number] [place] [address] 15292- 6535 May, Lumbago with sciatica, right side M54.41 [place] [id number] [place] [address] 36850- 7129 May, [place] [id number] [place] [address] 46522- 2135 May, Bloating R14.0 and Right hip pain M25.551 [place] [id number] [place] [address] 25252- 1012 Apr, [place] [id number] [place] [address] 73900- 2441 Apr, Lumbago with sciatica, left side M54.42 [place] [id number] [place] [address] 83112- 2633 Mar, [facility] [id number] [place] [address] 50138 -7492 Mar, Lumbago with sciatica, right side M54.41 [facility] [place] [id number] [place] [address] 90170 -0715 Mar, Abdominal distension R14.0 [place] [id number] [place] [address] 20914- 0345 Mar, Periumbilical abdominal pain R10.33 and Diarrhea, unspecified type R19.7 [facility] [place] [address] 01492 -9523 February, Seasonal allergic rhinitis, unspecified allergic rhinitis trigger J30.2 ; Acute middle ear effusion, bilateral H65.193 and Lumbago with sciatica, right side M54.41 [place] [id number] [place] [address] 58053- 3677 February, Routine gynecological examination Z01.419 [place] [address] 49665- 3941 Jan, [place] [id number] [place] [address] 32273- 0775 Jan, Atrial fibrillation, unspecified type I48.91 [facility] [place] [id number] [place] [address] 61100 -5191 Jan, Lumbago with sciatica, right side M54.41 and Wound, open, toe, initial encounter S91.109A [place] [id number] [place] [address] [id number] Jan, [facility] IN [place] [id number] [place] [address] 23372 -9390 Jan, Acute bilateral low back pain without sciatica M54.5 [place] [id number] [place] [address] 11381- 8281 Dec, Congestive heart failure, unspecified congestive heart failure chronicity, unspecified congestive heart failure type I50.9 [place] [id number] [address]- 0899 Dec, [facility], [place] [id number] [place] [address] 29802- 5141 Dec, Thrush, oral B37.0 and Lumbago with sciatica, right side M54.41 [facility], [place] [id number] [place] [address] 13365- 7079 Dec, [facility], [place] [id number] [place] [address] 89802- 7018 Nov, [facility], [place] [id number] [place] [address] 47332- 7250 Nov, [facility], [place] [id number] [place] [address] 00724- 8830 Oct, Polysubstance (excluding opioids) dependence F19.20 ; Other chronic pain G89.29 and Lumbago with sciatica, right side M54.41 [facility], [place] [id number] [place] [address] 88259- 4194 Oct, [facility], [place] [id number] [place] [address] 36346- 8492 Aug, Lumbago with sciatica, right side M54.41 ; Other chronic pain G89.29 and Anxiety F41.9 [facility], [place] [id number] [place] [address] 17656- 0769 Aug, [facility], [place] [id number] [place] [address] 86320- 3975 Aug, [facility], [place] [id number] [place] [address] 67711- 9916 Aug, [facility], [place] [id number] [place] [address] 72938- 2763 Aug, [facility], [place] [id number] [address]- 0700 Aug, [facility], [place] [address] [address]- 5262 Aug, [facility], [place] [id number] [place] [address] 41470- 9136 Jul, Unspecified mood [affective] disorder F39 and Seizure disorder G40.909 [facility], [place] [id number] [place] [address] 36214- 5772 Jul, [facility], [place] [id number] [place] [address] 94605- 7195 Jul, [facility], [place] [id number] [place] [address] 54377- 6150 Jul, Unspecified mood [affective] disorder F39 and Seizure disorder G40.909 [facility], [place] [id number] [place] [address] 83301- 7183 Jul, Polysubstance (excluding opioids) dependence F19.20 ; COPD ( chronic obstructive pulmonary disease) with acute bronchitis J44.0 ; Congestive heart failure, unspecified congestive heart failure chronicity, unspecified congestive heart failure type I50.9 ; Radiculopathy of lumbosacral region M54.17 and Radiculopathy, thoracic region M54.14 [facility], [place] [address] [place] [address] 52018- 3442 Jun, Lumbago M54.5 [place] [id number] [place] [address] 80476- 6642 May, [facility], [place] [id number] [place] [address] 81043- 3964 May, [facility], [place] [id number] [place] [address] 12499- 7939 May, [facility], [place] [id number] [place] [address] 86804- 5292 Apr, COPD (chronic obstructive pulmonary disease) with acute bronchitis J44.0 [facility], [place] [id number] [place] [address] 93812- 0534 Apr, Major depressive disorder, recurrent episode, severe F33.2 and Polysubstance (excluding opioids) dependence F19.20 [facility], [place] [id number] [place] [address] 88195- 3293 Mar, Major depressive disorder, recurrent episode, severe F33.2 and Polysubstance (excluding opioids) dependence F19.20 [facility], [place] [address] 18980- 4928 Mar, Major depressive disorder, recurrent episode, severe F33.2 and Polysubstance (excluding opioids) dependence F19.20 [facility], [place] [address] 16541- 3243 Mar, Major depressive disorder, recurrent episode, severe F33.2 and Polysubstance (excluding opioids) dependence F19.20 [place] [address] 08499- 5090 February, Major depressive disorder, recurrent episode, severe F33.2 and Polysubstance (excluding opioids) dependence F19.20 [place] [address] 94771- 1346 February, [facility], [place] [address] 60053- 5063 February, COPD (chronic obstructive pulmonary disease) with acute bronchitis J44.0 [facility] [id number] [place] [address] 83710 -0551 February, Sore throat J02.9 and Bronchitis J40 [facility], [place] [id number] [place] [address] 75368- 9201 Jan, COPD (chronic obstructive pulmonary disease) with acute bronchitis J44.0 [facility], [place] [address] 04929- 5651 Jan, COPD (chronic obstructive pulmonary disease) with acute bronchitis J44.0 [facility], [place] [address] 73487- 5372 14 Jan, 2016 [facility] [place] [address] 64254- 7974 Dec, Gastritis K29.70 ; Constipation K59.00 and Lumbago M54.5 [facility], [place] [address] 22881- 9052 Dec, COPD (chronic obstructive pulmonary disease) with acute bronchitis J44.0 [facility] [place] [address] 40566- 2486 18 Nov, 2015 Major depressive disorder, recurrent episode, severe F33.2 and Polysubstance (excluding opioids) dependence F19.20 [facility] [address] 54900 -2613 Oct, Oral thrush B37.0 and Drug abuse F19.10 [facility], [place] [address] 20360- 7349 Oct, [facility], [place] [address] 40662- 4306 Sep, COPD (chronic obstructive pulmonary disease) with acute bronchitis J44.0 ; Esophagitis, reflux K21.0 ; Seizure disorder G40.909 ; Primary insomnia F51.01 ; Edema, due to unspecified malnutrition type, unspecified type R60.9 ; Arthritis M19.90 and Thrush B37.0 [facility], [place] [id number] [place] [address] 60297- 8064 Aug, [facility], [place] [address] 84794- 8743 Aug, [place] [address] 47536- 8275 Aug, [place] [address] 89135- 4207 09 Jul, 2015 [facility], [place] [address] 69530- 8136 Jun, [facility], [place] [id number] [place] [address] 51508- 0613 Jun, Counseling on substance use and abuse V65.42 and Obstructive chronic bronchitis, with (acute) exacerbation 491.21 [facility], [place] [id number] [place] [address] [id number]- 3389 May, [facility], [place] [address] 01048- 6150 Apr, [facility], [place] [id number] [place] [address] 44509- 8908 Apr, Abdominal pain 789.00 and Back pain 724.5 [place] [id number] [place] [address] 62052- 1545 Mar, Back pain 724.5 and Illicit drug use 305.90 [place] [id number] [place] [address] 86579- 1718 February, Onychomycosis 110.1 [place] [id number] [place] [address] 69615- 6119 February, Breast cancer screening V76.10 [place] [id number] [place] [address] 56056- 9580 February, [place] [id number] [place] [address] 20188- 0245 February, [place] [id number] [place] [address] 42253- 3952 February, Cough 786.2 ; Obstructive chronic bronchitis, with (acute) exacerbation 491.21 ; Vomiting 787.03 ; 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 and Gastritis 535.50 [facility], [place] [id number] [place] [address] [id number]- 2656 Jan, [place] [id number] [place] [address] 28711- 4805 Jan, [facility] [place] [facility] [address] [id number] [place] [address]- 3542 24 Dec, 2014 [facility] [place] [facility] [address] [id number] [place] [address]- 4869 20 Dec, 2014 [facility] [place] [facility] [address] [id number] [place] [address]- 1186 20 Dec, 2014 [facility] [place] [facility] [address] [id number] [place] [address]- 2686 13 Dec, 2014 [facility] [place] [facility] [address] [id number] [place] [address]- 4513 13 Dec, 2014 [facility] [place] [facility] [address] [id number] [place] [address] 12 Dec, 2014 [facility] [place] [facility] [address] [id number] [place] [address] 12 Dec, 2014 [facility] [place] [facility] [address] [id number] [place] [address] 12 Dec, 2014 [facility] [place] [facility] [address] [id number] [place] [address] 12 Dec, 2014 [facility] [place] [facility] [address] [id number] [place] [address] Sep, [facility] [place] [facility] [address] [id number] [place] [address] Sep, [facility] [place] [facility] [address] [id number] [place] [address] Sep, [facility] [place] [facility] [address] [id number] [place] [address] Sep, [facility] [place] [facility] [address] [id number] [place] [address] [address] Sep, [facility] [place] [facility] [address] [id number] [place] [address] Sep, [facility] [place] [facility] [address] [id number] [place] [address] Sep, [facility] [place] [facility] [address] [id number] [place] [address] Sep, [facility] [place] [facility] [address] [id number] [place] [address] Sep, [facility] [place] [facility] [address] [id number] [place] [address] Sep, [facility] [place] [facility] [address] [id number] [place] [address] Aug, [facility] [place] [facility] [address] [id number] [place] [address] Aug, [facility] [place] [facility] [address] [id number] [place] [address] Aug, [facility] [place] [facility] [address] [id number] [place] [address] Aug, [facility] [place] [facility] [address] [id number] [place] [address] Jul, [facility] [place] [facility] [address] [id number] [place] [address] Jul, [facility] [place] [facility] [address] [id number] [place] [address] Jun, [facility] [place] [facility] [address] [id number] [place] [address] Jun, [facility] [place] [facility] [address] [id number] [place] [address] May, [facility] [place] [facility] [address] [id number] [place] [address] May, [facility] [place] [facility] [address] [id number] [place] [address] May, [facility] [place] [facility] [address] [id number] [place] [address] May, [facility] [place] [facility] [address] [id number] [place] [address] 2543 May, [facility] [place] [facility] [address] [id number] [place] [address] May, [facility] [place] [facility] [address] [id number] [place] [address] Apr, [facility] [place] [facility] [address] [id number] [place] [address] Apr, [facility] [place] [facility] [address] [id number] [place] [address] Apr, [facility] [place] [facility] [address] [id number] [place] [address] Apr, [facility] [place] [facility] [address] [id number] [place] [address] February, [facility] [place] [facility] [address] [id number] [place] [address] February, [facility] [place] [facility] [address] [id number] [place] [address] Oct, [facility] [place] [facility] [address] [id number] [place] [address] Oct, [facility] [place] [facility] [address] [id number] [place] [address] Oct, [facility] [place] [facility] [address] [id number] [place] [address] Oct, [facility] [place] [facility] [address] [id number] [place] [address] Sep, [facility] [place] [facility] [address] [id number] [place] [address] Sep, [facility] [place] [facility] [address] [id number] [place] [address] Sep, [facility] [place] [facility] [address] [id number] [place] [address] Sep, [facility] [place] [facility] [address] [id number] [place] [address] Aug, [facility] [place] [facility] [address] [id number] [place] [address] Aug, [facility] [place] [facility] [address] [id number] [place] [address] Aug, [facility] [place] [facility] [address] [id number] [place] [address] Aug, [facility] [place] [facility] [address] [id number] [place] [address] Jul, [facility] [place] [facility] [address] [id number] [place] [address] Jul, [facility] [place] [facility] [address] [id number] [place] [address] Jul, [facility] [place] [facility] [address] [id number] [place] [address] Jul, [facility] [place] [facility] [address] [id number] [place] [address] Jul, [facility] [place] [facility] [address] [id number] [place] [address] Jul, [facility] [place] [facility] [address] [id number] [place] [address] Jul, [facility] [place] [facility] [address] [id number] [place] [address] Jul, [facility] [place] [facility] [address] [id number] [place] [address] Jul, [facility] [place] [facility] [address] [id number] [place] [address] Jul, [facility] [place] [facility] [address] [id number] [place] [address] Jun, [facility] [place] [facility] [address] [id number] [place] [address] May, [facility] [place] [address] [id number] [address] Apr, [facility] [place] [id number] [address] [address] Apr, [facility] [place] [id number] [address] Apr, [facility] [place] [id number] [address] Mar, [facility] [place] [id number] [address] Mar, [facility] [place] [id number] [address] Mar, [facility] [place] [id number] [address] Mar, [facility] [place] [id number] [address] Mar, [facility] [place] [address] [id number] [address] Sep, [facility] [place] [id number] [address] February, [facility] [place] [address] [id number] [address] Jan, IMMUNIZATIONS No Known Immunizations SOCIAL HISTORY [...] bleeding 2015 Hospitalization History A fib with [facility] 02/06/17 Hospitalization History Altered mental status, lethargy-[facility] 07/10/17 Hospitalization History Chest pain-[facility] 08/05/17 Hospitalization History [facility] 10/2017 Hospitalization History Low potassium, A fib 01/2018 Hospitalization History Head injury 03/2018
--- OUTSIDE RECORDS SUMMARY | 2018-07-13 15:04 | XMS REPORT ---
Author Author ZEE QUINTANA [facility] Address [address] [place] [address] Care Team Providers Care Touch Up Worker Name Role Phone ZEE QUINTANA Unavailable PROBLEMS Type Condition ICD9-CM Code NEL93-TS Code Onset Dates Condition Status SNOMED Code Problem Other chronic pain G89.29 Active 60630140 Problem Lumbago with sciatica, left side M54.42 Active 976850517 Problem Seasonal allergic rhinitis, unspecified allergic rhinitis trigger J30.2 Active 302504717 Problem Methamphetamine abuse F15.10 Active 693475971 Problem Primary insomnia F51.01 Active 260294530 Problem Unsteady gait R26.81 Active 93234664 Problem Seizure disorder G40.909 Active 154821117 Problem Fibromyalgia M79.7 Active 718424303 Problem Infection of right eye H44.001 Active 98230759975272839 Problem Chronic fatigue R53.82 Active 18115836 Problem Chronic pain syndrome G89.4 Active 408998663 Problem Esophagitis, reflux K21.0 Active 751823325 Problem COPD (chronic obstructive pulmonary disease) with acute bronchitis J44.0 Active [id number] Problem Edema, due to unspecified malnutrition type, unspecified type R60.9 Active 273228282 Problem Atrial fibrillation, unspecified type I48.91 Active 51933377 Problem Congestive heart failure, unspecified congestive heart failure chronicity, unspecified congestive heart failure type I50.9 Active 31065568 Problem Unspecified mood [affective] disorder F39 Active 569131269 Problem Major depressive disorder, recurrent episode, severe F33.2 Active 084809172935 Problem Lumbago with sciatica, right side M54.41 Active 746386755 Problem Polysubstance (excluding opioids) dependence F19.20 Active 92799623 Problem Anxiety F41.9 Active 45337824 ALLERGIES Substance Reaction Event Type Date Status [...] Apr, Active ENCOUNTERS Encounter Location Date Diagnosis [facility] [id number] [place] [address] 87156- 7322 Jun, [place] [address] 38003- 7354 May, Anxiety F41.9 [place] [address] 57030- 9597 May, [facility] [address] 23950 -9041 May, Methamphetamine abuse F15.10 [facility] [address] 57221- 4016 May, [place] [address] 34545- 3151 Apr, [facility] [address] [place] [address] 30645- 6867 Apr, Lumbago with sciatica, right side M54.41 ; Chronic pain syndrome G89.4 and Primary insomnia F51.01 [facility] [id number] [place] [address] 50528 -7118 Apr, Acute right ankle pain M25.571 [facility] [address] 96157 -5188 Apr, [facility] [address] [place] [address] 04940 -1325 Apr, Seasonal allergic rhinitis, unspecified trigger J30.2 and Acute right ankle pain M25.571 [facility] [address] [place] [address] 63030- 8012 28 Mar, 2018 Primary insomnia F51.01 and Anxiety F41.9 [facility] [address] [place] [address] 48936- 6768 18 Mar, 2018 [facility] [address] 26041- 7200 Mar, [facility] [address] [place] [address] 55108- 5675 13 Mar, 2018 Lumbago with sciatica, left side M54.42 [facility] [address] 42604- 8390 Mar, [facility] [address] [place] [address] 06241- 5079 Mar, Anxiety F41.9 [facility] [address] [place] [address] 67629- 7066 February, [facility] [address] [place] [address] 01853- 1282 February, Unspecified mood [affective] disorder F39 [facility] [address] [place] [address] 51845- 3553 February, [facility] [address] [place] [address] 11548- 5035 February, [facility] [address] [place] [address] 51441 -0059 February, Hordeolum externum of right upper eyelid H00.011 and Paronychia of finger of right hand L03.011 [facility] [address] [place] [address] 17962- 7521 February, [facility] [address] [place] [address] 27104- 9207 February, Primary insomnia F51.01 ; Atrial fibrillation, unspecified type I48.91 ; Unsteady gait R26.81 ; General weakness R53.1 ; Chronic fatigue R53.82 ; Hypokalemia E87.6 and Other chronic pain G89.29 [place] [address] 48760- 3481 February, [place] [address] 40261- 5802 Jan, Lumbago with sciatica, right side M54.41 [place] [address] 38906- 7498 Jan, Anxiety F41.9 ; Chronic pain syndrome G89.4 ; Folliculitis L73.9 and Fibromyalgia M79.7 [place] [address] 47376- 3122 Jan, Lumbago with sciatica, right side M54.41 [place] [address] 30991- 8585 Dec, [place] [address] 19589- 0959 Nov, Lumbago with sciatica, right side M54.41 [place] [address] [place] [address] 53734- 1188 Nov, [place] [address] 58399- 1702 Nov, Unspecified mood [affective] disorder F39 ; Hypokalemia E87.6 and Anemia, unspecified type D64.9 [place] [address] [place] [address] 46311- 2445 Nov, [place] [address] [place] [address] 41509- 1634 Oct, Lumbago with sciatica, right side M54.41 [facility] [address] 23390 -1483 Aug, Congestive heart failure, unspecified congestive heart failure chronicity, unspecified congestive heart failure type I50.9 and Peripheral edema R60.9 [place] [address] [place] [address] 96639- 7625 Aug, Polysubstance (excluding opioids) dependence F19.20 and Lumbago with sciatica, left side M54.42 [place] [address] [place] [address] 47153- 6068 Aug, [facility] [address] [place] [address] 65824 -7588 Aug, Infection of right eye H44.001 [place] [address] [place] [address] 28370- 3869 Aug, Congestive heart failure, unspecified congestive heart failure chronicity, unspecified congestive heart failure type I50.9 and Other chronic pain G89.29 [place] [address] [place] [address] 34850- 5553 Aug, Lumbago with sciatica, right side M54.41 [place] [address] [place] [address] 29411- 4333 Aug, Lumbago with sciatica, right side M54.41 [place] [address] [place] [address] 34368- 2948 Aug, [place] [address] [place] [address] 15693- 5808 Jul, [place] [address] [place] [address] 09732- 7499 Jul, COPD (chronic obstructive pulmonary disease) with acute bronchitis J44.0 ; Atrial fibrillation, unspecified type I48.91 ; Polysubstance (excluding opioids) dependence F19.20 ; Congestive heart failure, unspecified congestive heart failure chronicity, unspecified congestive heart failure type I50.9 and Lumbago with sciatica, right side M54.41 [facility] [id number] [place] [address] [id number] Jul, [facility] [address] [place] [address] 79317- 3345 Jul, Seizure disorder G40.909 [facility] [address] [place] [address] 04630- 5535 Jul, Lumbago with sciatica, right side M54.41 [facility] [address] [place] [address] 05369- 0272 Jul, [facility] [address] [place] [address] 83646- 6190 Jun, Congestive heart failure, unspecified congestive heart failure chronicity, unspecified congestive heart failure type I50.9 ; Lumbago with sciatica, right side M54.41 and Other chronic pain G89.29 [facility] [address] 40492- 4959 Jun, [facility] [address] [place] [address] 27084- 6038 Jun, [facility] [address] [place] [address] 63133- 5830 May, Lumbago with sciatica, left side M54.42 [facility] [address] [place] [address] 97199- 1658 May, [facility] [address] [place] [address] 53367 -5950 May, Unspecified fall, initial encounter W19.XXXA [facility] [address] 60123- 1573 May, Lumbago with sciatica, right side M54.41 [facility] [address] [place] [address] 54718- 6155 May, [facility] [address] [place] [address] 27055- 0799 May, Bloating R14.0 and Right hip pain M25.551 [place] [address] [place] [address] 15115- 2539 Apr, [place] [address] [place] [address] 35686- 8966 Apr, Lumbago with sciatica, left side M54.42 [place] [address] [place] [address] 58357- 2672 Mar, [facility] [place] [address] [place] [address] 39551 -0951 Mar, Lumbago with sciatica, right side M54.41 [facility] [place] [address] [place] [address] 45564 -9519 Mar, Abdominal distension R14.0 [place] [address] [place] [address] 82252- 5949 Mar, Periumbilical abdominal pain R10.33 and Diarrhea, unspecified type R19.7 [facility] [address] 62486 -0440 February, Seasonal allergic rhinitis, unspecified allergic rhinitis trigger J30.2 ; Acute middle ear effusion, bilateral H65.193 and Lumbago with sciatica, right side M54.41 [place] [address] [place] [address] 04902- 1456 February, Routine gynecological examination Z01.419 [place] [address] [place] [address] 58263- 5457 Jan, [place] [address] 44519- 6324 Jan, Atrial fibrillation, unspecified type I48.91 [facility] [place] [id number] [place] [address] 37119 -0459 Jan, Lumbago with sciatica, right side M54.41 and Wound, open, toe, initial encounter S91.109A [facility] [address] [address] Jan, [facility] [address] [place] [address] 72813 -2950 Jan, Acute bilateral low back pain without sciatica M54.5 [facility] [address] [place] [address] 06107- 3787 Dec, Congestive heart failure, unspecified congestive heart failure chronicity, unspecified congestive heart failure type I50.9 [facility] [address] [place] [address] 89630- 5364 Dec, [place] [address] [place] [address] 22163- 9085 Dec, Thrush, oral B37.0 and Lumbago with sciatica, right side M54.41 [facility] [address] [place] [address] 27435- 1996 Dec, [facility] [address] [place] [address] 76117- 5491 Nov, [facility] [address] [place] [address] 53317- 7578 Nov, [facility] [address] [place] [address] 25700- 3175 Oct, Polysubstance (excluding opioids) dependence F19.20 ; Other chronic pain G89.29 and Lumbago with sciatica, right side M54.41 [facility] [address] [place] [address] 34782- 2691 Oct, [facility] [address] [place] [address] 54590- 3762 Aug, Lumbago with sciatica, right side M54.41 ; Other chronic pain G89.29 and Anxiety F41.9 [facility] [address] [address]- 9336 Aug, [facility] [address] [place] [address] 50223- 5192 Aug, [facility] [address] [place] [address] 19082- 2232 Aug, [facility] [address] [place] [address] 42223- 9464 Aug, [facility] [address] [place] [address] 74920- 2423 Aug, [facility] [address] [place] [address] 06625- 3169 Aug, [facility] [address] [place] [address] 41288- 6865 Jul, Unspecified mood [affective] disorder F39 and Seizure disorder G40.909 [facility] [address] [place] [address] 31952- 3336 Jul, [facility] [address] [place] [address] 89408- 5580 Jul, [facility] [address] [place] [address] 94660- 0443 Jul, Unspecified mood [affective] disorder F39 and Seizure disorder G40.909 [facility] [address] [place] [address] 88170- 5373 Jul, Polysubstance (excluding opioids) dependence F19.20 ; COPD ( chronic obstructive pulmonary disease) with acute bronchitis J44.0 ; Congestive heart failure, unspecified congestive heart failure chronicity, unspecified congestive heart failure type I50.9 ; Radiculopathy of lumbosacral region M54.17 and Radiculopathy, thoracic region M54.14 [facility] [address] [address]- 7138 Jun, Lumbago M54.5 [facility] [address] [address]- 1251 May, [facility] [address] [address]- 0541 May, [facility] [address] [address]- 7444 May, [facility] [address] [place] [address] 45316- 1341 Apr, COPD (chronic obstructive pulmonary disease) with acute bronchitis J44.0 [facility] [address] [address]- 0831 Apr, Major depressive disorder, recurrent episode, severe F33.2 and Polysubstance (excluding opioids) dependence F19.20 [place] [address] [address]- 3364 Mar, Major depressive disorder, recurrent episode, severe F33.2 and Polysubstance (excluding opioids) dependence F19.20 [facility] [address] [address]- 8475 Mar, Major depressive disorder, recurrent episode, severe F33.2 and Polysubstance (excluding opioids) dependence F19.20 [facility] [address] [address]- 2319 Mar, Major depressive disorder, recurrent episode, severe F33.2 and Polysubstance (excluding opioids) dependence F19.20 [facility] [id number] [address]- 7516 February, Major depressive disorder, recurrent episode, severe F33.2 and Polysubstance (excluding opioids) dependence F19.20 [facility] [address] [address]- 9378 February, [facility] [address] [address]- 9604 February, COPD (chronic obstructive pulmonary disease) with acute bronchitis J44.0 [facility] [address] 83787 -5224 February, Sore throat J02.9 and Bronchitis J40 [place] [address] 34878- 2335 Jan, COPD (chronic obstructive pulmonary disease) with acute bronchitis J44.0 [place] [address] 99963- 7144 Jan, COPD (chronic obstructive pulmonary disease) with acute bronchitis J44.0 [place] [address] 85159- 5632 Jan, [place] [address] 64541- 3026 Dec, Gastritis K29.70 ; Constipation K59.00 and Lumbago M54.[address] 66775- 3222 Dec, COPD (chronic obstructive pulmonary disease) with acute bronchitis J44.0 [place] [address] 75043- 4037 Nov, Major depressive disorder, recurrent episode, severe F33.2 and Polysubstance (excluding opioids) dependence F19.20 [facility] [address] 27834 -1013 Oct, Oral thrush B37.0 and Drug abuse F19.10 [place] [address] [place] [address] 22645- 1683 Oct, [address] 79685- 9279 Sep, COPD (chronic obstructive pulmonary disease) with acute bronchitis J44.0 ; Esophagitis, reflux K21.0 ; Seizure disorder G40.909 ; Primary insomnia F51.01 ; Edema, due to unspecified malnutrition type, unspecified type R60.9 ; Arthritis M19.90 and Thrush B37.0 [facility] [address] [address]- 8214 Aug, [facility] [address] [place] [address] 52357- 2871 Aug, [facility] [address] [place] [address] 76376- 4092 Aug, [facility] [address] [place] [address] 50357- 5462 Jul, [facility] [address] [place] [address] 40223- 0553 Jun, [facility] [address] [place] [address] 95729- 9260 Jun, Counseling on substance use and abuse V65.42 and Obstructive chronic bronchitis, with (acute) exacerbation 491.21 [facility] [address] [place] [address] 95390- 7885 May, [facility] [address] [place] [address] 24536- 2719 Apr, [facility] [address] [place] [address] 18773- 1668 Apr, Abdominal pain 789.00 and Back pain 724.5 [facility] [address] [place] [address] 97981- 8340 Mar, Back pain 724.5 and Illicit drug use 305.90 [facility] [address] [address]- 7927 February, Onychomycosis 110.1 [facility] [address] [place] [address] 73263- 0511 February, Breast cancer screening V76.10 [facility] [address] [address]- 1093 February, [facility] [address] [address]- 3676 February, 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 [address] [address]- 4534 Jan, [facility] [address] [address]- 5416 Jan, [facility] [address] [place] [address] 99240- 7174 Dec, [facility] [address] [address]- 5179 Dec, [facility] [address] [place] [address] 28922- 5289 Dec, [facility] [address] [address]- 9357 Dec, [facility] [address] [address]- 5396 Dec, [facility] [address] [address]- 1256 Dec, [facility] [address] [address]- 9974 Dec, [facility] [address] [address]- 6028 Dec, [facility] [address] [address]- 7737 Dec, [facility] [id number] [address]- 5146 Sep, [facility] [id number] [address]- 3979 Sep, [facility] [place] [facility] [address] [id number] [place] [address]- 1573 Sep, [facility] [place] [facility] [address] [id number] [place] [address]- 7210 Sep, [facility] [place] [facility] [address] [id number] [place] 1035 Sep, [facility] [place] [facility] [address] [id number] [place] [address]- 0136 Sep, [facility] [place] [facility] [address] [id number] [place] [address]- 9962 Sep, [facility] [place] [facility] [address] [id number] [place] [address]- 4144 Sep, [facility] [place] [facility] [address] [id number] [place] [address]- 5495 Sep, [facility] [place] [facility] [address] [id number] [place] [address]- 0493 Sep, [facility] [place] [facility] [address] [id number] [place] [address]- 9299 Aug, [facility] [place] [facility] [address] [id number] [address]- 2260 Aug, [facility] [place] [facility] [address] [id number] [address]- 5360 Aug, [facility] [place] [facility] [address] [id number] [address]- 7263 Aug, [facility] [place] [facility] [address] [id number] [place] [address]- 1893 Jul, [facility] [place] [facility] [address] [id number] [place] 9645 Jul, [facility] [place] [facility] [address] [id number] [place] [address]- 1184 Jun, [facility] [place] [facility] [address] [id number] [place] [address]- 2104 Jun, [facility] [place] [facility] [address] [id number] [place] [address]- 6653 May, [facility] [place] [facility] [address] [id number] [place] [address] May, [facility] [place] [facility] [address] [id number] [place] [address] May, [facility] [place] [facility] [address] [id number] [place] [address] May, [facility] [place] [facility] [address] [id number] [place] [address] May, [facility] [place] [facility] [address] [id number] [place] [address] May, [facility] [place] [facility] [address] [id number] [place] [address] Apr, [facility] [place] [facility] [address] [id number] [place] [address] Apr, [facility] [place] [facility] [address] [id number] [place] [address] Apr, [facility] [place] [facility] [address] [id number] [place] [address] Apr, [facility] [place] [facility] [address] [id number] [place] [address] February, [facility] [place] [facility] [address] [id number] [place] [address] February, [facility] [place] [facility] [address] [id number] [place] [address] Oct, [facility] [place] [facility] [address] [id number] [place] [address] Oct, [facility] [place] [facility] [address] [id number] [place] [address] Oct, [facility] [place] [facility] [address] [id number] [place] [address] Oct, [facility] [place] [facility] [address] [id number] [place] [address] Sep, [facility] [place] [facility] [address] [id number] [place] [address] Sep, [facility] [place] [facility] [address] [id number] [place] [address] Sep, [facility] [place] [facility] [address] [id number] [place] [address] Sep, [facility] [place] [facility] [address] [id number] [place] [address] Aug, [facility] [place] [facility] [address] [id number] [place] [address] Aug, [facility] [place] [facility] [address] [address] [id number] [place] [address] Aug, [facility] [place] [facility] [address] [id number] [place] [address] Aug, [facility] [place] [facility] [address] [id number] [place] [address] Jul, [facility] [place] [facility] [address] [id number] [place] [address] Jul, [facility] [place] [facility] [address] [id number] [place] [address] Jul, [facility] [place] [facility] [address] [id number] [place] [address] Jul, [facility] [place] [facility] [address] [id number] [place] [address] Jul, [facility] [place] [facility] [address] [id number] [place] [address] Jul, [facility] [place] [facility] [address] [id number] [place] [address] Jul, [facility] [place] [facility] [address] [id number] [place] [address] Jul, [facility] [place] [facility] [address] [id number] [place] [address] Jul, [facility] [place] [facility] [address] [id number] [place] [address] Jul, [facility] [place] [facility] [address] [id number] [place] [address] Jun, [facility] [place] [facility] [address] [id number] [place] [address] May, [facility] [place] [facility] [address] [id number] [place] [address] Apr, [facility] [place] [facility] [address] [id number] [place] [address] Apr, [facility] [place] [facility] [address] [id number] [place] [address] Apr, [facility] [place] [facility] [address] [id number] [place] [address] Mar, [facility] [place] [facility] [address] [id number] [place] [address] Mar, [facility] [place] [facility] [address] [id number] [place] [address] Mar, [facility] [place] [facility] [address] [id number] [address] Mar, [facility] [place] [facility] [address] [id number] [place] [address] Mar, [facility] [place] [facility] [address] [id number] [place] [address] Sep, [facility] [place] [facility] [address] [id number] [place] [address] February, [facility] [place] [facility] [address] [facility] [id number] [place] [id number] Jan, IMMUNIZATIONS No Known Immunizations SOCIAL HISTORY Never Assessed REASON FOR VISIT right ankle pain sincse yesterday. denies any injury. sore throat since yesterday. [email or web address] PLAN OF CARE Activity Details Follow Up prn Reason: VITAL SIGNS Height 64 in 2018-04-27 Weight 140.2 lbs 2018-04-27 Temperature 98.6 degrees Fahrenheit 2018-04-27 Heart Rate 74 bpm 2018-04-27 Respiratory Rate 20 2018-04-27 BMI 24.06 kg/m2 2018-04-27 Blood pressure systolic 116 mmHg 2018-04-27 Blood pressure diastolic 64 mmHg 2018-04-27 MEDICATIONS Medication Instructions Dosage Frequency Start Date End Date Duration Status Metoprolol Tartrate 25 MG Orally Twice a day 1 tablet with food 12h Active Omeprazole 40 MG Orally at bedtime 1 capsule Active Cyclobenzaprine HCl 10 mg Orally 2 times a day, deliver to [facility] 1 tablet as needed Jun, Active Polyethylene Glycol 3350 17 gm/dose Orally 2 times a day 1 packet mixed with 8 ounces of fluid 12h Active Furosemide 20 MG Orally twice a day 1 tablet 12h Active Risperdal 1 MG Orally 2 times a day 1 tablet 12h 23 Jan, 2018 30 day(s ) Active Xarelto 20 MG Orally Once a day 1 tablet with food 24h Active Loratadine 10 MG Orally Once a day 1 tablet 24h 30 day(s) Active Meclizine HCl 25 MG Orally once daily as needed TAKE ONE TABLET BY MOUTH EVERY DAY NEEDED FOR DIZZINESS 30 Active Potassium Chloride ER 20 MEQ Orally twice a day 1 tablet with food 12h Active Digoxin 125 MCG TAKE ONE TABLET BY MOUTH EVERY DAY 90 Active Keppra 1000 MG Orally every 12 hrs 1 tablet 12h 90 Active Acidophilus - Active Oxygen 2 L/NC Active Albuterol Sulfate HFA 108 (90 Base) MCG/ACT Inhalation every 6 hrs 2 puffs as needed 6h Active Pantoprazole Sodium 40 mg Orally Once a day 1 tablet 24h Active Prazosin HCl 5 mg Orally Once a day 1 capsule at bedtime 24h 30 Active Cartia XT 180 MG Orally Once a day 1 capsule 24h Active Prazosin HCl 2 MG Orally Once a day 1 capsule at bedtime 24h 30 Active RESULTS No Results PROCEDURES No [...] bleeding 2015 Hospitalization History A fib with [facility] 02/06/17 Hospitalization History Altered mental status, lethargy-[facility] 07/10/17 Hospitalization History Chest pain-[facility] 08/05/17 Hospitalization History [facility] 10/2017 Hospitalization History Low potassium, A fib 01/2018 Hospitalization History Head injury 03/2018
--- OUTSIDE RECORDS SUMMARY | 2018-07-13 15:04 | XMS REPORT ---
Author Author FRANCHESKA HEADLEY [facility] Address [address] [place] [address] Care Team Providers Care Entry Processor Name Role Phone FRANCHESKA HEADLEY Unavailable PROBLEMS Type Condition ICD9-CM Code RPZ44-EO Code Onset Dates Condition Status SNOMED Code Problem Other chronic pain G89.29 Active 92787046 Problem Lumbago with sciatica, left side M54.42 Active 931919982 Problem Seasonal allergic rhinitis, unspecified allergic rhinitis trigger J30.2 Active 540485465 Problem Methamphetamine abuse F15.10 Active 773200450 Problem Primary insomnia F51.01 Active 224234456 Problem Unsteady gait R26.81 Active 34224149 Problem Seizure disorder G40.909 Active 606374731 Problem Fibromyalgia M79.7 Active 666344448 Problem Infection of right eye H44.001 Active [id number] Problem Chronic fatigue R53.82 Active 29260697 Problem Chronic pain syndrome G89.4 Active 533894926 Problem Esophagitis, reflux K21.0 Active 792342281 Problem COPD (chronic obstructive pulmonary disease) with acute bronchitis J44.0 Active 119785910773144 Problem Edema, due to unspecified malnutrition type, unspecified type R60.9 Active 605159935 Problem Atrial fibrillation, unspecified type I48.91 Active 91571137 Problem Congestive heart failure, unspecified congestive heart failure chronicity, unspecified congestive heart failure type I50.9 Active 05338537 Problem Unspecified mood [affective] disorder F39 Active 468919936 Problem Major depressive disorder, recurrent episode, severe F33.2 Active 884005271171 Problem Lumbago with sciatica, right side M54.41 Active 207541957 Problem Polysubstance (excluding opioids) dependence F19.20 Active 80802064 Problem Anxiety F41.9 Active 44142731 ALLERGIES Substance Reaction Event Type Date Status [...] Active Bactrim Unknown Drug Allergy Mar, Active ENCOUNTERS Encounter Location Date Diagnosis [place] [address] [address]60 Jun, [place] [address] 27773- 1538 May, Anxiety F41.9 [place] [address] 86207- 3918 May, [facility] [address] 8[address] -1014 May, Methamphetamine abuse F15.10 [place] [address] 02246- 6179 May, [place] [address] 75757- 1078 Apr, [place] [address] 65375- 7508 Apr, Lumbago with sciatica, right side M54.41 ; Chronic pain syndrome G89.4 and Primary insomnia F51.01 [facility] [address] [place] [id number] [place] [address] 11735 -1790 Apr, Acute right ankle pain M25.571 [facility] [address] [place] [address] 57792 -6525 Apr, [facility] [address] [place] [id number] [place] [address] 95587 -7314 07 Apr, 2018 Seasonal allergic rhinitis, unspecified trigger J30.2 and Acute right ankle pain M25.571 [place] [address] [place] [id number] [place] [address] 02376- 7965 Mar, Primary insomnia F51.01 and Anxiety F41.9 [facility] [address] [place] [id number] [place] [address] 98186- 6847 Mar, [facility] [address] [place] [id number] [place] [address] 43808- 1739 Mar, [facility] [address] 85418- 9422 Mar, Lumbago with sciatica, left side M54.42 [facility] [address] 49383- 6988 Mar, [facility] [address] [place] [id number] [place] [address] 27373- 8566 Mar, Anxiety F41.9 [facility] [address] 03945- 3952 February, [facility] [address] [place] [id number] [place] [address] 81302- 4082 February, Unspecified mood [affective] disorder F39 [facility] [address] [place] [id number] [place] [address] 17868- 1244 February, [facility] [address] [place] [id number] [place] [address] 66661- 3454 February, [facility] [address] [place] [id number] [place] [address] 10868 -3183 February, Hordeolum externum of right upper eyelid H00.011 and Paronychia of finger of right hand L03.011 [facility] [address] [place] [id number] [place] [address] 94768- 9074 February, [facility] [address] [place] [id number] [place] [address] 98998- 8503 February, Primary insomnia F51.01 ; Atrial fibrillation, unspecified type I48.91 ; Unsteady gait R26.81 ; General weakness R53.1 ; Chronic fatigue R53.82 ; Hypokalemia E87.6 and Other chronic pain G89.29 [place] [address] 08251- 8900 February, [place] [address] 83917- 3487 Jan, Lumbago with sciatica, right side M54.41 [place] [address] 81576- 4519 Jan, Anxiety F41.9 ; Chronic pain syndrome G89.4 ; Folliculitis L73.9 and Fibromyalgia M79.7 [place] [address] 80566- 4505 Jan, Lumbago with sciatica, right side M54.41 [place] [address] 63893- 8491 Dec, [place] [address] 39064- 9350 Nov, Lumbago with sciatica, right side M54.41 [place] [address] 01982- 3157 Nov, [place] [address] 82504- 1270 Nov, Unspecified mood [affective] disorder F39 ; Hypokalemia E87.6 and Anemia, unspecified type D64.9 [place] [address] [place] [id number] [place] [address] 62327- 4523 Nov, [place] [address] 13166- 3815 Oct, Lumbago with sciatica, right side M54.41 [facility] [address] 71118 -2047 Aug, Congestive heart failure, unspecified congestive heart failure chronicity, unspecified congestive heart failure type I50.9 and Peripheral edema R60.9 [place] [address] 75970- 4028 Aug, Polysubstance (excluding opioids) dependence F19.20 and Lumbago with sciatica, left side M54.42 [place] [address] 97898- 1795 Aug, [facility] WALK IN [facility] [address] 55639 -2022 Aug, Infection of right eye H44.001 [place] [address] 66008- 4820 Aug, Congestive heart failure, unspecified congestive heart failure chronicity, unspecified congestive heart failure type I50.9 and Other chronic pain G89.29 [place] [address] 49502- 4399 Aug, Lumbago with sciatica, right side M54.41 [place] [address] 39978- 0387 Aug, Lumbago with sciatica, right side M54.41 [place] [address] 12565- 0423 Aug, [place] [address] [place] [id number] [place] [address] 44304- 2139 Jul, [place] [address] 62372- 1876 Jul, COPD (chronic obstructive pulmonary disease) with acute bronchitis J44.0 ; Atrial fibrillation, unspecified type I48.91 ; Polysubstance (excluding opioids) dependence F19.20 ; Congestive heart failure, unspecified congestive heart failure chronicity, unspecified congestive heart failure type I50.9 and Lumbago with sciatica, right side M54.41 [facility] [address] [address] Jul, [facility] [address] [place] [id number] [place] [address] 63120- 6228 Jul, Seizure disorder G40.909 [facility] [address] [place] [id number] [place] [address] 53113- 7098 Jul, Lumbago with sciatica, right side M54.41 [facility] [address] [place] [id number] [place] [address] 74432- 7820 Jul, [facility] [address] [place] [id number] [place] [address] 41832- 9628 Jun, Congestive heart failure, unspecified congestive heart failure chronicity, unspecified congestive heart failure type I50.9 ; Lumbago with sciatica, right side M54.41 and Other chronic pain G89.29 [place] [address] [place] [id number] [place] [address] 31078- 9453 Jun, [facility] [address] [place] [id number] [place] [address] 08803- 0485 Jun, [facility] [address] [place] [id number] [place] [address] 56372- 7930 May, Lumbago with sciatica, left side M54.42 [facility] [address] [place] [id number] [place] [address] 62118- 5251 May, [facility] [address] [place] [address] 69907 -5235 May, Unspecified fall, initial encounter W19.XXXA [facility] [address] [place] [id number] [place] [address] 20356- 9897 May, Lumbago with sciatica, right side M54.41 [facility] [address] [place] [id number] [place] [address] 00445- 4597 May, [facility] [address] [place] [id number] [place] [address] 96463- 6411 May, Bloating R14.0 and Right hip pain M25.551 [place] [address] 29617- 4929 Apr, [place] [address] 76888- 2487 Apr, Lumbago with sciatica, left side M54.42 [place] [address] 48556- 1480 Mar, [facility] [place] [address] 77445 -7562 Mar, Lumbago with sciatica, right side M54.41 [facility] IN [place] [address] 36550 -7316 Mar, Abdominal distension R14.0 [place] [address] 63205- 5609 Mar, Periumbilical abdominal pain R10.33 and Diarrhea, unspecified type R19.7 [facility] WALK IN [address] [address]9878 February, Seasonal allergic rhinitis, unspecified allergic rhinitis trigger J30.2 ; Acute middle ear effusion, bilateral H65.193 and Lumbago with sciatica, right side M54.41 [place] [address] 73742- 1506 February, Routine gynecological examination Z01.419 [place] [address] 36861- 0716 Jan, [place] [address] 08968- 3152 Jan, Atrial fibrillation, unspecified type I48.91 [facility] WALK IN [address] 18178 -3909 Jan, Lumbago with sciatica, right side M54.41 and Wound, open, toe, initial encounter S91.109[facility] [id number] [address] Jan, [facility] [address] [place] [id number] [place] [address] 18106 -7404 Jan, Acute bilateral low back pain without sciatica M54.5 [facility] [address] [place] [id number] [place] [address] 77608- 3678 Dec, Congestive heart failure, unspecified congestive heart failure chronicity, unspecified congestive heart failure type I50.9 [facility] [address] [place] [id number] [place] [address] 12135- 5316 Dec, [place] [address] [place] [id number] [place] [address] 73680- 7998 Dec, Thrush, oral B37.0 and Lumbago with sciatica, right side M54.41 [facility] [address] [place] [id number] [place] [address] 89201- 1684 Dec, [facility] [address] [place] [id number] [place] [address] 40552- 3295 Nov, [facility] [address] [place] [id number] [place] [address] 31954- 1378 Nov, [facility] [address] [place] [id number] [place] [address] 80854- 4015 Oct, Polysubstance (excluding opioids) dependence F19.20 ; Other chronic pain G89.29 and Lumbago with sciatica, right side M54.41 [facility] [address] [place] [address] 67692- 3750 Oct, [facility] [address] [place] [id number] [place] [address] 41339- 9997 Aug, Lumbago with sciatica, right side M54.41 ; Other chronic pain G89.29 and Anxiety F41.9 [facility] [address] [place] [id number] [place] [address] 74306- 3634 Aug, [facility] [address] [place] [address] 04015- 7176 Aug, [facility] [address] [place] [id number] [place] [address] 12206- 3638 Aug, [facility] [address] [place] [id number] [place] [address] 43899- 9260 Aug, [facility] [address] [place] [id number] [place] [address] 73070- 6044 Aug, [facility] [address] [place] [id number] [place] [address] 42679- 2419 Aug, [facility] [address] [place] [id number] [place] [address] 84087- 3980 Jul, Unspecified mood [affective] disorder F39 and Seizure disorder G40.909 [facility] [address] [place] [id number] [place] [address] 06969- 3165 Jul, [facility] [address] [place] [id number] [place] [address] 42257- 8278 Jul, [facility] [address] [place] [id number] [place] [address] 09839- 3049 Jul, Unspecified mood [affective] disorder F39 and Seizure disorder G40.909 [facility] [address] [place] [address] 87559- 4258 Jul, Polysubstance (excluding opioids) dependence F19.20 ; COPD ( chronic obstructive pulmonary disease) with acute bronchitis J44.0 ; Congestive heart failure, unspecified congestive heart failure chronicity, unspecified congestive heart failure type I50.9 ; Radiculopathy of lumbosacral region M54.17 and Radiculopathy, thoracic region M54.14 [facility] [address] [place] [address] 99778- 3670 Jun, Lumbago M54.5 [facility] [address] [place] [id number] [place] [address] 63238- 7897 May, [facility] [address] [address]- 5635 May, [facility] [address] [place] [address] 47190- 9369 May, [facility] [address] [place] [id number] [place] [address] 20353- 1917 Apr, COPD (chronic obstructive pulmonary disease) with acute bronchitis J44.0 [facility] [address] [place] [address] 04466- 8215 Apr, Major depressive disorder, recurrent episode, severe F33.2 and Polysubstance (excluding opioids) dependence F19.20 [facility] [address] [address]- 8734 Mar, Major depressive disorder, recurrent episode, severe F33.2 and Polysubstance (excluding opioids) dependence F19.20 [facility] [address] [address]- 6448 Mar, Major depressive disorder, recurrent episode, severe F33.2 and Polysubstance (excluding opioids) dependence F19.20 [facility] [address] [address]- 4255 Mar, Major depressive disorder, recurrent episode, severe F33.2 and Polysubstance (excluding opioids) dependence F19.20 [facility] [address] [address]- 7527 February, Major depressive disorder, recurrent episode, severe F33.2 and Polysubstance (excluding opioids) dependence F19.20 [facility] [address] [place] [address] 23209- 4531 February, [place] [address] [place] [address] 08762- 5509 February, COPD (chronic obstructive pulmonary disease) with acute bronchitis J44.0 [facility] [address] [place] [id number] [place] [address] 08497 -7846 February, Sore throat J02.9 and Bronchitis J40 [place] [address] 83231- 9526 Jan, COPD (chronic obstructive pulmonary disease) with acute bronchitis J44.0 [place] [address] 09930- 4798 Jan, COPD (chronic obstructive pulmonary disease) with acute bronchitis J44.0 [place] [address] 42759- 8587 Jan, [address] 34786- 4944 Dec, Gastritis K29.70 ; Constipation K59.00 and Lumbago M54.[address] 86467- 0514 Dec, COPD (chronic obstructive pulmonary disease) with acute bronchitis J44.0 [place] [address] [place] [id number] [place] [address] 80598- 3779 Nov, Major depressive disorder, recurrent episode, severe F33.2 and Polysubstance (excluding opioids) dependence F19.20 [facility] [address] [place] [id number] [place] [address] 95059 -9119 Oct, Oral thrush B37.0 and Drug abuse F19.10 [place] [address] [place] [id number] [place] [address] 89760- 2645 Oct, [address] 81675- 5078 Sep, COPD (chronic obstructive pulmonary disease) with acute bronchitis J44.0 ; Esophagitis, reflux K21.0 ; Seizure disorder G40.909 ; Primary insomnia F51.01 ; Edema, due to unspecified malnutrition type, unspecified type R60.9 ; Arthritis M19.90 and Thrush B37.0 [place] [address] [address]- 7812 Aug, [facility] [address], [place] [address]- 1410 Aug, [facility] [address], [place] [address]- 1626 Aug, [facility] [address] [place] [address] 76191- 0441 Jul, [facility] [address] [place] [address] 511213- 8753 Jun, [facility] [address] [id number] [place] [address] 983416- 3409 Jun, Counseling on substance use and abuse V65.42 and Obstructive chronic bronchitis, with (acute) exacerbation 491.21 [facility] [address] [place] [id number] [place] [address] 05167- 9920 May, [facility] [address], [place] [address]- 6824 Apr, [facility] [address] [place] [id number] [place] [address] 41402- 1108 Apr, Abdominal pain 789.00 and Back pain 724.5 [facility] [address], [place] [address]- 7659 Mar, Back pain 724.5 and Illicit drug use 305.90 [facility] [address], [place] [address]- 6918 February, Onychomycosis 110.1 [facility] [address] [place] [address] 07143- 6731 February, Breast cancer screening V76.10 [facility] [address]- 0546 February, [facility] [address] [place] [address] 98380- 3260 February, [facility] [address], [place] [address]- 3987 February, Cough 786.2 ; Obstructive chronic bronchitis, with (acute) exacerbation 491.21 ; Vomiting 787.03 ; 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 and Gastritis 535.50 [facility] [address] [place] [id number] [address]- 6246 Jan, [facility] [address] [id number] [place] [address] 48264- 3359 Jan, [facility] [id number] [place] [address] 08328- 4775 Dec, [facility] [address] [id number] [place] [address] 877039- 0672 Dec, [facility] [address] [id number] [place] [address] 14549- 6249 Dec, [facility] [address] [id number] [place] [address] 74915- 5255 Dec, [facility] [id number] [place] [address] 55260- 5565 Dec, [facility] [id number] [address]- 5497 Dec, [facility] [address], [place] [address]- 6530 Dec, [facility] [address] [id number] [address]- 4149 Dec, [facility] [id number] [place] [address] 08912- 1868 Dec, [facility] [id number] [address]- 8376 Sep, [facility] [address], [place] [address]- 4327 Sep, [facility] [address] [facility] [id number] [place] [address]- 6375 Sep, [facility] [place] [facility] [address] [id number] [place] [address]- 0933 Sep, [facility] [place] [facility] [address] [id number] [place] [address]- 5369 Sep, [facility] [place] [facility] [address] [id number] [place] [address]- 5044 Sep, [facility] [place] [facility] [address] [id number] [place] [address]- 5279 Sep, [facility] [place] [facility] [address] [id number] [place] [address]- 2491 Sep, [facility] [place] [facility] [address] [id number] [place] [address]- 6010 Sep, [facility] [place] [facility] [address] [id number] [place] [address]- 4077 Sep, [facility] [place] [facility] [address] [id number] [place] [address]- 0024 Aug, [facility] [place] [facility] [address] [id number] [place] [address]- 3472 Aug, [facility] [place] [facility] [address] [id number] [place] [address]- 0578 Aug, [facility] [place] [facility] [address] [id number] [place] [address]- 6066 Aug, [facility] [place] [facility] [address] [id number] [place] [address]- 4273 Jul, [facility] [place] [facility] [address] [id number] [place] [address]- 1515 Jul, [facility] [place] [facility] [address] [id number] [place] [address]- 7392 Jun, [facility] [place] [facility] [address] [id number] [place] [address]- 0125 Jun, [facility] [place] [facility] [address] [id number] [place] [address]- 0934 May, [facility] [place] [facility] [address] [id number] [place] [address]- 8171 May, [facility] [place] [facility] [address] [id number] [place] [address]- 1191 May, [facility] [place] [facility] [address] [id number] [place] [address]- 9831 May, [facility] [place] [facility] [address] [id number] [place] [address] May, [facility] [place] [facility] [address] [id number] [place] [address] May, [facility] [place] [facility] [address] [id number] [place] [address] Apr, [facility] [place] [facility] [address] [id number] [place] [address] Apr, [facility] [place] [facility] [address] [id number] [place] [address] Apr, [facility] [place] [facility] [address] [id number] [place] [address] Apr, [facility] [place] [facility] [address] [id number] [place] [address] February, [facility] [place] [facility] [address] [id number] [place] [address] February, [facility] [place] [facility] [address] [id number] [place] [address] Oct, [facility] [place] [facility] [address] [id number] [place] [address] Oct, [facility] [place] [facility] [address] [id number] [place] [address] Oct, [facility] [place] [facility] [address] [id number] [place] [address] Oct, [facility] [address] [id number] [place] Sep, [facility] [place] [facility] [address] [id number] [place] Sep, [facility] [place] [facility] [address] [id number] [place] [address] Sep, [facility] [place] [facility] [address] [id number] [place] Sep, [facility] [place] [facility] [address] [id number] [place] [address] Aug, [facility] [place] [facility] [address] [id number] [place] [address] Aug, [facility] [place] [facility] [address] [id number] [place] [address] Aug, [facility] [place] [facility] [address] [id number] [place] [address] Aug, [facility] [place] [facility] [address] [id number] [place] [address] Jul, [facility] [place] [facility] [address] [facility] [id number] [place] [address] Jul, [facility] [place] [facility] [address] [id number] [place] [address] Jul, [facility] [place] [facility] [address] [id number], [place] [address] Jul, [facility] [place] [facility] [address] [id number] [place] [address] Jul, [facility] [place] [facility] [address] [id number] [place] [address] Jul, [facility] [place] [facility] [address] [facility] [id number] [address] 18 Jul, 2013 [facility] [place] [facility] [address] [id number] [place] [address] Jul, [facility] [place] [facility] [address] [id number] [place] [address] Jul, [facility] [place] [facility] [address] [id number] [place] [address] Jul, [facility] [place] [facility] [address] [id number] [place] [address] Jun, [facility] [place] [facility] [address] [id number] [place] [address] May, [facility] [place] [facility] [address] [id number] [place] [address] Apr, [facility] [place] [facility] [address] [id number] [place] [address] Apr, [facility] [place] [facility] [address] [id number] [place] [address] Apr, [facility] [place] [facility] [address] [id number] [place] [address] Mar, [facility] [place] [facility] [address] [id number] [place] [address] Mar, [facility] [place] [facility] [address] [id number] [place] [address] Mar, [facility] [place] [facility] [address] [id number] [place] [address] Mar, [facility] [place] [facility] [address] [id number] [place] [address] Mar, [facility] [place] [facility] [address] [id number] [place] [address] Sep, [facility] [place] [facility] [address] [id number] [place] [address] February, [facility] [place] [facility] [address] [id number] [place] [address] Jan, IMMUNIZATIONS No Known Immunizations SOCIAL HISTORY Never Assessed REASON FOR VISIT Hospital f/u [facility], PT went to the hospital in [place] Sunday and [facility] yesterday , PT fell on her face on Sunday and yesterday, She claims she has no concussion like symptoms PLAN OF CARE VITAL SIGNS Height 64 in 2018-04-18 Weight 141.8 lbs 2018-04-18 Temperature 97.8 degrees Fahrenheit 2018-04-18 Heart Rate 70 bpm 2018-04-18 Respiratory Rate 20 2018-04-18 Oximetry on room air:97 % 2018-04-18 BMI 24.34 kg/m2 2018-04-18 Blood pressure systolic 114 mmHg 2018-04-18 Blood pressure diastolic 58 mmHg 2018-04-18 MEDICATIONS Medication Instructions Dosage Frequency Start Date End Date Duration Status Metoprolol Tartrate 25 MG Orally Twice a day 1 tablet with food 12h Active Keppra 1000 MG Orally every 12 hrs 1 tablet 12h 90 Active Acidophilus - Active Cartia XT 180 MG Orally Once a day 1 capsule 24h Active Risperdal 1 MG Orally 2 times a day 1 tablet 12h Jan, 30 day(s ) Active Xarelto 20 MG Orally Once a day 1 tablet with food 24h Active Digoxin 125 MCG TAKE ONE TABLET BY MOUTH EVERY DAY 90 Active Meclizine HCl 25 MG Orally once daily as needed TAKE ONE TABLET BY MOUTH EVERY DAY NEEDED FOR DIZZINESS 30 Active Cyclobenzaprine HCl 10 mg Orally 2 times a day, deliver to [facility] at [facility] 1 tablet as needed Jun, Active Albuterol Sulfate HFA 108 (90 Base) MCG/ACT Inhalation every 6 hrs 2 puffs as needed 6h Active Pantoprazole Sodium 40 mg Orally Once a day 1 tablet 24h Active Omeprazole 40 MG Orally at bedtime 1 capsule Active Potassium Chloride ER 20 MEQ Orally twice a day 1 tablet with food 12h Active Polyethylene Glycol 3350 17 gm/dose Orally 2 times a day 1 packet mixed with 8 ounces of fluid 12h Active Furosemide 20 MG Orally twice a day 1 tablet 12h Active Oxygen 2 L/NC Active Prazosin HCl 5 mg Orally Once a day 1 capsule at bedtime 24h 30 Active Prazosin HCl 2 MG Orally Once [...] bleeding 2015 Hospitalization History A fib with [facility] 02/06/17 Hospitalization History Altered mental status, lethargy-[facility] 07/10/17 Hospitalization History Chest pain-[facility] 08/05/17 Hospitalization History [facility] 10/2017 Hospitalization History Low potassium, A fib 01/2018 Hospitalization History Head injury 03/2018
--- OUTSIDE RECORDS SUMMARY | 2018-07-13 15:05 | XMS REPORT ---
Author Author FRANCHESKA HEADLEY Organization [facility] Address [address] [place] [address] Care Team Providers Care Ms Access Database Developer Name Role Phone FRANCHESKA HEADLEY Unavailable PROBLEMS Type Condition ICD9-CM Code DGD28-SH Code Onset Dates Condition Status SNOMED Code Problem Other chronic pain G89.29 Active 52417684 Problem Lumbago with sciatica, left side M54.42 Active 293034489 Problem Seasonal allergic rhinitis, unspecified allergic rhinitis trigger J30.2 Active 768005295 Problem Methamphetamine abuse F15.10 Active 435970551 Problem Primary insomnia F51.01 Active 884010355 Problem Unsteady gait R26.81 Active 69369736 Problem Seizure disorder G40.909 Active 194475895 Problem Fibromyalgia M79.7 Active 365118573 Problem Infection of right eye H44.001 Active 15521983156505682 Problem Chronic fatigue R53.82 Active 77351623 Problem Chronic pain syndrome G89.4 Active 846239849 Problem Esophagitis, reflux K21.0 Active 941444061 Problem COPD (chronic obstructive pulmonary disease) with acute bronchitis J44.0 Active [id number] Problem Edema, due to unspecified malnutrition type, unspecified type R60.9 Active 375955200 Problem Atrial fibrillation, unspecified type I48.91 Active 40684183 Problem Congestive heart failure, unspecified congestive heart failure chronicity, unspecified congestive heart failure type I50.9 Active 86313275 Problem Unspecified mood [affective] disorder F39 Active 696029726 Problem Major depressive disorder, recurrent episode, severe F33.2 Active 003119573850 Problem Lumbago with sciatica, right side M54.41 Active 871398025 Problem Polysubstance (excluding opioids) dependence F19.20 Active 38805946 Problem Anxiety F41.9 Active 02690833 ALLERGIES No Information ENCOUNTERS Encounter Location Date Diagnosis [facility] [address] [facility] [id number] [address] Jun, [facility] [address] [address] May, Anxiety F41.9 [facility] [address] [address]23- 0949 May, [facility] [address] [address] May, Methamphetamine abuse F15.10 [facility] [address] 27606- 4020 May, [facility] [address] 94816- 9761 Apr, [facility] [address] 9[address]90- [address] Apr, Lumbago with sciatica, right side M54.41 ; Chronic pain syndrome G89.4 and Primary insomnia F51.01 [facility] [address] [address] Apr, Acute right ankle pain M25.571 [facility] WALK IN [facility] [address] [address]74 Apr, [facility] [address] 07187 -[address]843 Apr, Seasonal allergic rhinitis, unspecified trigger J30.2 and Acute right ankle pain M25.571 [facility] [address] [place] [id number] [place] [address] 26312- 7929 Mar, Primary insomnia F51.01 and Anxiety F41.9 [facility] [address] 25677- 8209 Mar, [facility] [address] 86771- 9198 Mar, [facility] [address] 10444- 4202 Mar, Lumbago with sciatica, left side M54.42 [facility] [id number] [place] [address] 91852- 8168 Mar, [facility] [id number] [place] [address] 34191- 6988 Mar, Anxiety F41.9 [place] [address] 40750- 9866 February, [facility] [address] [id number] [place] [address] 62772- 3474 February, Unspecified mood [affective] disorder F39 [place] [address] [place] [id number] [place] [address] 99394- 4738 February, [place] [address] [place] [id number] [place] [address] 59503- 2645 February, [facility]ALK [facility] [id number] [place] [address] 74300 -5776 February, Hordeolum externum of right upper eyelid H00.011 and Paronychia of finger of right hand L03.011 [place] [address] [id number] [place] [address] 78319- 8183 February, [facility] [id number] [place] [address] 05499- 4293 February, Primary insomnia F51.01 ; Atrial fibrillation, unspecified type I48.91 ; Unsteady gait R26.81 ; General weakness R53.1 ; Chronic fatigue R53.82 ; Hypokalemia E87.6 and Other chronic pain G89.29 [facility] [id number] [place] [address] 32806- 4690 February, [facility] [id number] [place] [address] 29035- 4776 Jan, Lumbago with sciatica, right side M54.41 [place] [address] [place] [address] [address] 9422 Jan, Anxiety F41.9 ; Chronic pain syndrome G89.4 ; Folliculitis L73.9 and Fibromyalgia M79.7 [place] [address] 55330- 0131 Jan, Lumbago with sciatica, right side M54.41 [place] [address] 04204- 3530 Dec, [place] [address] 10147- 8798 Nov, Lumbago with sciatica, right side M54.41 [place] [address] 15266- 3718 Nov, [place] [address] 20062- 3056 Nov, Unspecified mood [affective] disorder F39 ; Hypokalemia E87.6 and Anemia, unspecified type D64.9 [place] [address] 92682- 3606 Nov, [place] [address] 90104- 3075 Oct, Lumbago with sciatica, right side M54.41 [facility] [place] [address] 62825 -5489 Aug, Congestive heart failure, unspecified congestive heart failure chronicity, unspecified congestive heart failure type I50.9 and Peripheral edema R60.9 [place] [address] 46635- 0932 Aug, Polysubstance (excluding opioids) dependence F19.20 and Lumbago with sciatica, left side M54.42 [place] [address] 24058- 9045 Aug, [facility] [place] [address] [address] Aug, Infection of right eye H44.001 [place] [address] [id number] [place] [address] 16100- 3047 Aug, Congestive heart failure, unspecified congestive heart failure chronicity, unspecified congestive heart failure type I50.9 and Other chronic pain G89.29 [place] [address] [place] [id number] [place] [address] 77194- 0815 Aug, Lumbago with sciatica, right side M54.41 [place] [address] [place] [id number] [place] [address] 60193- 3710 Aug, Lumbago with sciatica, right side M54.41 [place] [address] [id number] [place] [address] 43563- 4794 Aug, [place] [address] [place] [id number] [place] [address] 84247- 8323 Jul, [place] [id number] [place] [address] 38315- 8815 Jul, COPD (chronic obstructive pulmonary disease) with acute bronchitis J44.0 ; Atrial fibrillation, unspecified type I48.91 ; Polysubstance (excluding opioids) dependence F19.20 ; Congestive heart failure, unspecified congestive heart failure chronicity, unspecified congestive heart failure type I50.9 and Lumbago with sciatica, right side M54.41 [facility] [address] [place] [id number] [place] [address] [id number] Jul, [place] [id number] [place] [address] 02068- 8822 Jul, Seizure disorder G40.909 [place] [address] [id number] [place] [address] 04699- 5520 Jul, Lumbago with sciatica, right side M54.41 [place] [id number] [place] [address] 37978- 6649 Jul, [facility] [address], [place] [address] Jun, Congestive heart failure, unspecified congestive heart failure chronicity, unspecified congestive heart failure type I50.9 ; Lumbago with sciatica, right side M54.41 and Other chronic pain G89.29 [facility] [id number] [place] [address] 93848- 8588 Jun, [facility] [id number] [place] [address] 39588- 4630 Jun, [facility] [id number] [place] [address] 70732- 2792 May, Lumbago with sciatica, left side M54.42 [place] [id number] [place] [address] 01310- 7435 May, [facility] [id number] [place] [address] 53332 -1253 May, Unspecified fall, initial encounter W19.XXXA [place] [id number] [place] [address] 21997- 0450 May, Lumbago with sciatica, right side M54.41 [place] [address] [place] [id number] [place] [address] 64391- 5595 May, [facility] [id number] [place] [address] 38002- 1252 May, Bloating R14.0 and Right hip pain M25.551 [facility] [address] [id number] [place] [address] 94978- 1760 Apr, [facility] [id number] [place] [address] 84886- 5944 Apr, Lumbago with sciatica, left side M54.42 [facility] [id number] [place] [address] 04844- 9024 Mar, [facility] [place] [id number] [place] [address] 78271 -5246 Mar, Lumbago with sciatica, right side M54.41 [facility] [place] [address] [place] [id number] [place] [address] 42471 -1474 Mar, Abdominal distension R14.0 [place] [address] 74937- 4537 Mar, Periumbilical abdominal pain R10.33 and Diarrhea, unspecified type R19.7 [facility] [place] [address] 58820 -4551 February, Seasonal allergic rhinitis, unspecified allergic rhinitis trigger J30.2 ; Acute middle ear effusion, bilateral H65.193 and Lumbago with sciatica, right side M54.41 [place] [address] 85069- 6103 February, Routine gynecological examination Z01.419 [place] [address] 31110- 3617 Jan, [place] [address] 29541- 0316 Jan, Atrial fibrillation, unspecified type I48.91 [facility] [place] [address] [place] [id number] [place] [address] 77913 -2214 Jan, Lumbago with sciatica, right side M54.41 and Wound, open, toe, initial encounter S91.109A [place] [address] [place] [id number] [place] [address] [id number] Jan, [facility] [place] [address] 80729 -7125 Jan, Acute bilateral low back pain without sciatica M54.5 [place] [address] 87111- 4890 Dec, Congestive heart failure, unspecified congestive heart failure chronicity, unspecified congestive heart failure type I50.9 [facility] [id number] [place] [address] 50079- 7899 Dec, [facility] [id number] [place] [address] 62887- 0427 Dec, Thrush, oral B37.0 and Lumbago with sciatica, right side M54.41 [facility] [address] 13981- 4380 Dec, [facility] [id number] [place] [address] 99302- 5026 Nov, [facility] [address] 54954- 9262 Nov, [facility] [address] 83618- 4930 Oct, Polysubstance (excluding opioids) dependence F19.20 ; Other chronic pain G89.29 and Lumbago with sciatica, right side M54.41 [facility] [id number] [place] [address] 67418- 9964 Oct, [facility] [address] [id number] [place] [address] 76140- 2206 Aug, Lumbago with sciatica, right side M54.41 ; Other chronic pain G89.29 and Anxiety F41.9 [facility] [id number] [place] [address] 81871- 9287 Aug, [facility] [id number] [place] [address] 12749- 5565 Aug, [facility] [id number] [place] [address] 31765- 1680 Aug, [facility] [id number] [place] [address] 63197- 4857 Aug, [facility] [id number] [place] [address] 49438- 3397 Aug, [facility] [address], [place] [address]- 9148 Aug, [facility] [address] [place] [address] 90044- 0521 Jul, Unspecified mood [affective] disorder F39 and Seizure disorder G40.909 [facility] [id number] [place] [address] 59410- 6336 Jul, [facility] [address] [place] [address] 21812- 8310 Jul, [facility] [id number] [place] [address] 67915- 0645 Jul, Unspecified mood [affective] disorder F39 and Seizure disorder G40.909 [facility] [address] [place] [address] 29749- 5923 Jul, Polysubstance (excluding opioids) dependence F19.20 ; COPD ( chronic obstructive pulmonary disease) with acute bronchitis J44.0 ; Congestive heart failure, unspecified congestive heart failure chronicity, unspecified congestive heart failure type I50.9 ; Radiculopathy of lumbosacral region M54.17 and Radiculopathy, thoracic region M54.14 [facility] [address], [place] [address]- 6341 Jun, Lumbago M54.5 [facility] [address] [place] [address] 03832- 8503 May, [facility] [address] [place] [address] 67286- 2869 May, [facility] [id number] [place] [address] 32716- 9952 May, [facility] [address] [place] [address] 33832- 1452 Apr, COPD (chronic obstructive pulmonary disease) with acute bronchitis J44.0 [facility] [address] [place] [address] 52249- 4237 Apr, Major depressive disorder, recurrent episode, severe F33.2 and Polysubstance (excluding opioids) dependence F19.20 [facility] [id number] [place] [address] 45189- 1200 Mar, Major depressive disorder, recurrent episode, severe F33.2 and Polysubstance (excluding opioids) dependence F19.20 [facility] [id number] [place] [address] 80538- 2299 Mar, Major depressive disorder, recurrent episode, severe F33.2 and Polysubstance (excluding opioids) dependence F19.20 [facility] [id number] [place] [address] 80898- 8945 Mar, Major depressive disorder, recurrent episode, severe F33.2 and Polysubstance (excluding opioids) dependence F19.20 [place] [address] [place] [id number] [place] [address] 86751- 9536 February, Major depressive disorder, recurrent episode, severe F33.2 and Polysubstance (excluding opioids) dependence F19.20 [facility] [address] [place] [id number] [place] [address] 25012- 3331 February, [facility] [address] [place] [id number] [place] [address] 29378- 3553 February, COPD (chronic obstructive pulmonary disease) with acute bronchitis J44.0 [facility] [address] [place] [address] 26914 -8448 February, Sore throat J02.9 and Bronchitis J40 [facility] [address] [place] [id number] [place] [address] 76909- 6587 Jan, COPD (chronic obstructive pulmonary disease) with acute bronchitis J44.0 [facility] [address] [place] [address] 40349- 9620 Jan, COPD (chronic obstructive pulmonary disease) with acute bronchitis J44.0 [facility] [id number] [place] [address] 44828- 4217 14 Jan, 2016 [facility] [address] 41717- 5842 Dec, Gastritis K29.70 ; Constipation K59.00 and Lumbago M54.5 [place] [address] 10819- 3937 Dec, COPD (chronic obstructive pulmonary disease) with acute bronchitis J44.0 [facility] [address] [id number] [place] [address] 03621- 8409 18 Nov, 2015 Major depressive disorder, recurrent episode, severe F33.2 and Polysubstance (excluding opioids) dependence F19.20 [facility] [id number] [place] [address] 08885 -4648 Oct, Oral thrush B37.0 and Drug abuse F19.10 [facility] [address] 26077- 8728 Oct, [facility] [address] 38224- 2814 Sep, COPD (chronic obstructive pulmonary disease) with acute bronchitis J44.0 ; Esophagitis, reflux K21.0 ; Seizure disorder G40.909 ; Primary insomnia F51.01 ; Edema, due to unspecified malnutrition type, unspecified type R60.9 ; Arthritis M19.90 and Thrush B37.0 [facility] [address] [id number] [place] [address] 93202- 4060 Aug, [facility] [address] 95629- 4658 Aug, [facility] [address] [id number] [place] [address] 36324- 0446 Aug, [facility] [address] [id number] [place] [address] 12772- 9037 Jul, [facility] [address] [place] [address] 68168- 4323 Jun, [facility] [address] [id number] [place] [address] 32781- 0063 Jun, Counseling on substance use and abuse V65.42 and Obstructive chronic bronchitis, with (acute) exacerbation 491.21 [place] [address] [place] [id number] [place] [address] 52279- 0709 May, [facility] [address] [id number] [place] [address] 83161- 2467 Apr, [place] [address] 14459- 9821 Apr, Abdominal pain 789.00 and Back pain 724.5 [place] [id number] [place] [address] 13113- 6818 Mar, Back pain 724.5 and Illicit drug use 305.90 [place] [address] [place] [id number] [place] [address] 67155- 3490 February, Onychomycosis 110.1 [place] [id number] [place] [address] 30694- 0087 February, Breast cancer screening V76.10 [place] [id number] [place] [address] 09418- 5086 February, [place] [address] [place] [id number] [place] [address] 10941- 4043 February, [place] [address] [place] [id number] [place] [address] 98091- 7298 February, Cough 786.2 ; Obstructive chronic bronchitis, with (acute) exacerbation 491.21 ; Vomiting 787.03 ; 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 and Gastritis 535.50 [place] [address] [place] [address] [id number]- 8247 Jan, [address] 90741- 6433 13 Jan, 2015 [facility] [place] [facility] [address] [id number] [place] [address]- 6032 24 Dec, 2014 [facility] [place] [facility] [address] [id number] [place] [address]- 5165 20 Dec, 2014 [facility] [place] [facility] [address] [id number] [place] [address]- 1254 20 Dec, 2014 [facility] [place] [facility] [address] [id number] [place] [address]- 9501 13 Dec, 2014 [facility] [place] [facility] [address] [id number] [place] [address]- 9068 13 Dec, 2014 [facility] [place] [facility] [address] [id number] [place] [address]- 6220 12 Dec, 2014 [facility] [place] [facility] [address] [id number] [place] [address]- 1509 Dec, [facility] [place] [facility] [address] [id number] [place] [address]- 5209 Dec, [facility] [place] [facility] [address] [id number] [place] [address]- 7955 Dec, [facility] [place] [facility] [address] [id number] [place] [address]- 9058 Sep, [facility] [place] [facility] [address] [id number] [place] [address]- 6424 Sep, [facility] [place] [facility] [address] [id number] [place] [address]- 4998 Sep, [facility] [place] [facility] [address] [id number] [place] [address]- 0240 Sep, [facility] [place] [facility] [address] [id number] [place] [address]- 7512 Sep, [facility] [place] [facility] [address] [id number] [place] [address]- 1334 Sep, [facility] [place] [facility] [address] [id number] [place] [address]- 2828 Sep, [facility] [place] [facility] [address] [id number] [place] 6078 Sep, [facility] [place] [facility] [address] [id number] [place] [address]- 0576 Sep, [facility] [place] [facility] [address] [id number] [place] [address]- 5205 Sep, [facility] [place] [facility] [address] [id number] [place] [address]- 3641 Aug, [facility] [place] [facility] [address] [id number] [place] [address]- 7872 Aug, [facility] [place] [facility] [address] [id number] [place] [address]- 0536 Aug, [facility] [place] [facility] [address] [id number] [place] [address]- 5631 Aug, [facility] [place] [facility] [address] [id number] [place] [address] Jul, [facility] [place] [facility] [address] [id number] [place] [address] Jul, [facility] [place] [facility] [address] [id number] [place] [address] Jun, [facility] [place] [facility] [address] [id number] [place] [address] Jun, [facility] [place] [facility] [address] [id number] [place] [address] May, [facility] [place] [facility] [address] [id number] [place] [address] May, [facility] [place] [facility] [address] [id number] [place] [address] May, [facility] [place] [facility] [address] [id number] [place] [address] May, [facility] [place] [facility] [address] [id number] [place] [address] May, [facility] [place] [facility] [address] [id number] [place] [address] May, [facility] [place] [facility] [address] [id number] [place] [address] Apr, [facility] [place] [facility] [address] [id number] [place] [address] Apr, [facility] [place] [facility] [address] [id number] [place] [address] Apr, [facility] [place] [facility] [address] [id number] [place] [address] Apr, [facility] [place] [facility] [address] [id number] [place] [address] February, [facility] [place] [facility] [address] [id number] [place] [address] February, [facility] [place] [facility] [address] [id number] [place] [address] Oct, [facility] [place] [facility] [address] [id number] [place] [address] Oct, [facility] [place] [facility] [address] [id number] [place] [address] Oct, [facility] [place] [facility] [address] [id number] [place] [address] Oct, [facility] [place] [facility] [address] [id number] [place] [address] Sep, [facility] [place] [facility] [address] [id number] [place] [address] Sep, [facility] [place] [facility] [address] [id number] [place] [address] Sep, [facility] [place] [facility] [address] [address] [id number] [place] [address] Sep, [facility] [place] [facility] [address] [id number] [place] [address] Aug, [facility] [place] [facility] [address] [id number] [place] [address] Aug, [facility] [place] [facility] [address] [id number] [place] [address] Aug, [facility] [place] [facility] [address] [id number] [place] [address] Aug, [facility] [place] [facility] [address] [id number] [place] [address] Jul, [facility] [place] [facility] [address] [id number] [place] [address] Jul, [facility] [place] [facility] [address] [id number] [place] [address] Jul, [facility] [place] [facility] [address] [id number] [place] [address] Jul, [facility] [place] [facility] [address] [id number] [place] [address] Jul, [facility] [place] [facility] [address] [facility] [id number], [place] [address] Jul, [facility] [place] [facility] [address] [id number] [place] [address] Jul, [facility] [place] [facility] [address] [id number], [place] [address] Jul, [facility] [place] [facility] [address] [id number] [place] [address] Jul, [facility] [place] [facility] [address] [id number], [place] [address] Jul, [facility] [place] [facility] [address] [id number] [address] Jun, [facility] [id number], [place] [address] May, [facility] [id number], [place] [address] Apr, [facility] [id number], [place] [address] Apr, [facility] [address] [id number], [place] [address] Apr, [facility] [id number], [place] [address] Mar, [facility] [id number], [place] [address] Mar, [facility] [id number], [place] [address] Mar, [facility] [id number], [place] [address] Mar, [facility] [id number], [place] [address] Mar, [facility] [id number], [place] [address] Sep, [facility] [id number], [place] [address] February, [facility] [id number], [place] [address] Jan, IMMUNIZATIONS No Known Immunizations SOCIAL HISTORY Never Assessed REASON FOR VISIT med refill PLAN OF CARE VITAL SIGNS MEDICATIONS Medication Instructions Dosage Frequency Start Date End Date Duration Status Potassium Chloride ER 20 MEQ Orally twice [...] bleeding 2015 Hospitalization History A fib with [facility] 02/06/17 Hospitalization History Altered mental status, lethargy-[facility] 07/10/17 Hospitalization History Chest pain-[facility] 08/05/17 Hospitalization History [facility] 10/2017 Hospitalization History Low potassium, A fib 01/2018 Hospitalization History Head injury 03/2018
--- OUTSIDE RECORDS SUMMARY | 2018-07-13 15:05 | XMS REPORT ---
Author Author FRANCHESKA HEADLEY Organization [facility] Address [address] [place] [address] Care Team Providers Care Acid Condenser Name Role Phone FRANCHESKA HEADLEY Unavailable PROBLEMS Type Condition ICD9-CM Code GZX22-SA Code Onset Dates Condition Status SNOMED Code Problem Other chronic pain G89.29 Active 98325482 Problem Lumbago with sciatica, left side M54.42 Active 741480095 Problem Seasonal allergic rhinitis, unspecified allergic rhinitis trigger J30.2 Active 593615369 Problem Methamphetamine abuse F15.10 Active 738582669 Problem Primary insomnia F51.01 Active 853045966 Problem Unsteady gait R26.81 Active 52265318 Problem Seizure disorder G40.909 Active 873662079 Problem Fibromyalgia M79.7 Active 899027592 Problem Infection of right eye H44.001 Active [id number] Problem Chronic fatigue R53.82 Active 42417257 Problem Chronic pain syndrome G89.4 Active 938766059 Problem Esophagitis, reflux K21.0 Active 716970533 Problem COPD (chronic obstructive pulmonary disease) with acute bronchitis J44.0 Active [id number] Problem Edema, due to unspecified malnutrition type, unspecified type R60.9 Active 710327336 Problem Atrial fibrillation, unspecified type I48.91 Active 81584350 Problem Congestive heart failure, unspecified congestive heart failure chronicity, unspecified congestive heart failure type I50.9 Active 50692991 Problem Unspecified mood [affective] disorder F39 Active 666460532 Problem Major depressive disorder, recurrent episode, severe F33.2 Active 873260687676 Problem Lumbago with sciatica, right side M54.41 Active 110048282 Problem Polysubstance (excluding opioids) dependence F19.20 Active 52782070 Problem Anxiety F41.9 Active 16660874 ALLERGIES No Information ENCOUNTERS Encounter Location Date Diagnosis [facility] [address] [facility] [id number] [address] Jun, [facility] [address] [address] May, Anxiety F41.9 [facility] [address] 57337- 5055 May, [facility] [address] [address] May, Methamphetamine abuse F15.10 [facility] [address] 31390- 2896 May, [facility] [address] 43647- 7685 Apr, [facility] [address] 56175- 5522 Apr, Lumbago with sciatica, right side M54.41 ; Chronic pain syndrome G89.4 and Primary insomnia F51.01 [facility] [address] 61626 [address]852 Apr, Acute right ankle pain M25.571 [facility] [address] 0[address]704 Apr, [facility] [address] 10527 -6881 Apr, Seasonal allergic rhinitis, unspecified trigger J30.2 and Acute right ankle pain M25.571 [facility] [id number] [place] [address] 34137- 7684 Mar, Primary insomnia F51.01 and Anxiety F41.9 [facility] [address] 42887- 3103 Mar, [facility] [address] 40795- 7978 Mar, [facility] [address] 18095- 9741 Mar, Lumbago with sciatica, left side M54.42 [facility] [id number] [place] [address] 56021- 4495 Mar, [facility] [id number] [place] [address] 75442- 3139 Mar, Anxiety F41.9 [place] [address] 70209- 3437 February, [facility] [id number] [place] [address] 34008- 4036 February, Unspecified mood [affective] disorder F39 [place] [id number] [place] [address] 68327- 0394 February, [place] [id number] [place] [address] 00628- 1787 February, [facility] [id number] [place] [address] 16567 -5934 February, Hordeolum externum of right upper eyelid H00.011 and Paronychia of finger of right hand L03.011 [place] [id number] [place] [address] 89779- 5571 February, [facility] [id number] [place] [address] 17350- 0487 February, Primary insomnia F51.01 ; Atrial fibrillation, unspecified type I48.91 ; Unsteady gait R26.81 ; General weakness R53.1 ; Chronic fatigue R53.82 ; Hypokalemia E87.6 and Other chronic pain G89.29 [facility] [id number] [place] [address] 62670- 7700 February, [facility] [id number] [place] [address] 61929- 0179 Jan, Lumbago with sciatica, right side M54.41 [place] [address] [place] [address] [place] [address] 8604 Jan, Anxiety F41.9 ; Chronic pain syndrome G89.4 ; Folliculitis L73.9 and Fibromyalgia M79.7 [place] [address] 85189- 2827 Jan, Lumbago with sciatica, right side M54.41 [place] [address] 87483- 2569 Dec, [place] [address] 96380- 9103 Nov, Lumbago with sciatica, right side M54.41 [place] [address] 42902- 2547 Nov, [place] [address] 79475- 2830 Nov, Unspecified mood [affective] disorder F39 ; Hypokalemia E87.6 and Anemia, unspecified type D64.9 [place] [address] 95286- 6503 Nov, [place] [address] 18353- 2149 Oct, Lumbago with sciatica, right side M54.41 [facility] [place] [address] 13355 -0509 Aug, Congestive heart failure, unspecified congestive heart failure chronicity, unspecified congestive heart failure type I50.9 and Peripheral edema R60.9 [place] [address] 79634- 0622 Aug, Polysubstance (excluding opioids) dependence F19.20 and Lumbago with sciatica, left side M54.42 [place] [address] 65262- 8818 Aug, [facility] [place] [address] [address] Aug, Infection of right eye H44.001 [place] [id number] [place] [address] 70513- 4612 Aug, Congestive heart failure, unspecified congestive heart failure chronicity, unspecified congestive heart failure type I50.9 and Other chronic pain G89.29 [place] [id number] [place] [address] 46271- 8823 Aug, Lumbago with sciatica, right side M54.41 [place] [address] [id number] [place] [address] 45799- 1528 Aug, Lumbago with sciatica, right side M54.41 [place] [id number] [place] [address] 33399- 1239 Aug, [place] [id number] [place] [address] 20523- 5847 Jul, [place] [id number] [place] [address] 89425- 9760 Jul, COPD (chronic obstructive pulmonary disease) with acute bronchitis J44.0 ; Atrial fibrillation, unspecified type I48.91 ; Polysubstance (excluding opioids) dependence F19.20 ; Congestive heart failure, unspecified congestive heart failure chronicity, unspecified congestive heart failure type I50.9 and Lumbago with sciatica, right side M54.41 [facility] [address] [place] [id number] [place] [address] [id number] Jul, [place] [address] [id number] [place] [address] 86778- 0633 Jul, Seizure disorder G40.909 [place] [address] [id number] [place] [address] 98965- 8438 Jul, Lumbago with sciatica, right side M54.41 [place] [address] [id number] [place] [address] 39914- 6060 Jul, [facility] [address], [place] [address] 4739 Jun, Congestive heart failure, unspecified congestive heart failure chronicity, unspecified congestive heart failure type I50.9 ; Lumbago with sciatica, right side M54.41 and Other chronic pain G89.29 [facility] [id number] [place] [address] 64038- 2114 Jun, [facility] [id number] [place] [address] 96138- 8527 Jun, [facility] [id number] [place] [address] 95244- 9452 May, Lumbago with sciatica, left side M54.42 [place] [id number] [place] [address] 97112- 7219 May, [facility] [id number] [place] [address] 72241 -7059 May, Unspecified fall, initial encounter W19.XXXA [place] [id number] [place] [address] 28732- 3976 May, Lumbago with sciatica, right side M54.41 [place] [address] [id number] [place] [address] 60925- 6040 May, [facility] [id number] [place] [address] 69380- 4098 May, Bloating R14.0 and Right hip pain M25.551 [facility] [id number] [place] [address] 29413- 4490 Apr, [facility] [id number] [place] [address] 59303- 9017 Apr, Lumbago with sciatica, left side M54.42 [facility] [id number] [place] [address] 05161- 8431 Mar, [facility] [place] [address] [id number] [place] [address] 65565 -3177 Mar, Lumbago with sciatica, right side M54.41 [facility] [place] [address] [id number] [place] [address] 28709 -1510 Mar, Abdominal distension R14.0 [place] [address] 23539- 5837 Mar, Periumbilical abdominal pain R10.33 and Diarrhea, unspecified type R19.7 [facility] [address] [place] [address] 79903 -7741 February, Seasonal allergic rhinitis, unspecified allergic rhinitis trigger J30.2 ; Acute middle ear effusion, bilateral H65.193 and Lumbago with sciatica, right side M54.41 [place] [address] 80654- 2694 February, Routine gynecological examination Z01.419 [place] [address] 78025- 2429 Jan, [place] [address] 34311- 0657 Jan, Atrial fibrillation, unspecified type I48.91 [facility] [address] [place] [address] [id number] [place] [address] 72204 -8376 Jan, Lumbago with sciatica, right side M54.41 and Wound, open, toe, initial encounter S91.109A [place] [address] [place] [id number] [place] [address] [id number] Jan, [facility] [place] [address] 65726 -5271 Jan, Acute bilateral low back pain without sciatica M54.5 [place] [address] 06514- 6596 Dec, Congestive heart failure, unspecified congestive heart failure chronicity, unspecified congestive heart failure type I50.9 [facility] [id number] [place] [address] 14158- 7823 Dec, [facility] [id number] [place] [address] 87498- 8293 Dec, Thrush, oral B37.0 and Lumbago with sciatica, right side M54.41 [facility] [address] 11811- 1372 Dec, [facility] [id number] [place] [address] 56428- 7605 Nov, [facility] [address] 07566- 7323 Nov, [facility] [address] 53796- 6832 Oct, Polysubstance (excluding opioids) dependence F19.20 ; Other chronic pain G89.29 and Lumbago with sciatica, right side M54.41 [facility] [id number] [place] [address] 00656- 9643 Oct, [facility] [id number] [place] [address] 04917- 1494 Aug, Lumbago with sciatica, right side M54.41 ; Other chronic pain G89.29 and Anxiety F41.9 [facility] [id number] [place] [address] 35052- 9824 Aug, [facility] [id number] [place] [address] 20687- 4111 Aug, [facility] [id number] [place] [address] 33571- 0704 Aug, [facility] [id number] [place] [address] 80795- 3323 Aug, [facility] [id number] [place] [address] 61576- 3219 Aug, [facility] [address], [place] [address]- 5253 Aug, [facility] [address] [place] [address] 57107- 9194 Jul, Unspecified mood [affective] disorder F39 and Seizure disorder G40.909 [facility] [id number] [place] [address] 91382- 4372 Jul, [facility] [id number] [place] [address] 47583- 5916 Jul, [facility] [id number] [place] [address] 48055- 7597 Jul, Unspecified mood [affective] disorder F39 and Seizure disorder G40.909 [facility] [address] [place] [address] 17043- 7946 Jul, Polysubstance (excluding opioids) dependence F19.20 ; COPD ( chronic obstructive pulmonary disease) with acute bronchitis J44.0 ; Congestive heart failure, unspecified congestive heart failure chronicity, unspecified congestive heart failure type I50.9 ; Radiculopathy of lumbosacral region M54.17 and Radiculopathy, thoracic region M54.14 [facility] [address], [place] [address]- 5528 Jun, Lumbago M54.5 [facility] [id number] [place] [address] 37041- 7548 May, [facility] [id number] [place] [address] 69366- 9378 May, [facility] [id number] [place] [address] 96052- 9269 May, [facility] [id number] [place] [address] 68197- 2303 Apr, COPD (chronic obstructive pulmonary disease) with acute bronchitis J44.0 [facility] [id number] [place] [address] 51949- 8354 Apr, Major depressive disorder, recurrent episode, severe F33.2 and Polysubstance (excluding opioids) dependence F19.20 [facility] [id number] [place] [address] 12259- 0588 Mar, Major depressive disorder, recurrent episode, severe F33.2 and Polysubstance (excluding opioids) dependence F19.20 [facility] [id number] [place] [address] 16606- 5761 Mar, Major depressive disorder, recurrent episode, severe F33.2 and Polysubstance (excluding opioids) dependence F19.20 [facility] [id number] [place] [address] 10418- 3995 Mar, Major depressive disorder, recurrent episode, severe F33.2 and Polysubstance (excluding opioids) dependence F19.20 [place] [id number] [place] [address] 64901- 7477 February, Major depressive disorder, recurrent episode, severe F33.2 and Polysubstance (excluding opioids) dependence F19.20 [facility] [id number] [place] [address] 11687- 6814 February, [facility] [id number] [place] [address] 70139- 1636 February, COPD (chronic obstructive pulmonary disease) with acute bronchitis J44.0 [facility] [id number] [place] [address] 49272 -3690 February, Sore throat J02.9 and Bronchitis J40 [facility] [id number] [place] [address] 94880- 4930 Jan, COPD (chronic obstructive pulmonary disease) with acute bronchitis J44.0 [facility] [address] [place] [address] 01017- 9295 Jan, COPD (chronic obstructive pulmonary disease) with acute bronchitis J44.0 [facility] [id number] [place] [address] 28259- 4249 14 Jan, 2016 [facility] [address] 39878- 0311 Dec, Gastritis K29.70 ; Constipation K59.00 and Lumbago M54.5 [place] [address] 04936- 6839 Dec, COPD (chronic obstructive pulmonary disease) with acute bronchitis J44.0 [facility] [id number] [place] [address] 40097- 2607 18 Nov, 2015 Major depressive disorder, recurrent episode, severe F33.2 and Polysubstance (excluding opioids) dependence F19.20 [facility] [id number] [place] [address] 21313 -1470 Oct, Oral thrush B37.0 and Drug abuse F19.10 [facility] [address] 01010- 1139 Oct, [facility] [address] 24627- 3908 Sep, COPD (chronic obstructive pulmonary disease) with acute bronchitis J44.0 ; Esophagitis, reflux K21.0 ; Seizure disorder G40.909 ; Primary insomnia F51.01 ; Edema, due to unspecified malnutrition type, unspecified type R60.9 ; Arthritis M19.90 and Thrush B37.0 [facility] [id number] [place] [address] 71568- 0034 Aug, [facility] [address] 44755- 9891 Aug, [facility] [id number] [place] [address] 34619- 9451 Aug, [facility] [id number] [place] [address] 88237- 9874 Jul, [facility] [address] [place] [address] 75276- 8525 Jun, [facility] [id number] [place] [address] 20812- 3508 Jun, Counseling on substance use and abuse V65.42 and Obstructive chronic bronchitis, with (acute) exacerbation 491.21 [place] [address] [address] [id number] [place] [address] 42852- 2306 May, [facility] [id number] [place] [address] 50069- 3382 Apr, [place] [address] 11809- 8339 Apr, Abdominal pain 789.00 and Back pain 724.5 [place] [id number] [place] [address] 79744- 0373 Mar, Back pain 724.5 and Illicit drug use 305.90 [place] [address] [place] [id number] [place] [address] 81330- 0138 February, Onychomycosis 110.1 [place] [id number] [place] [address] 23784- 1484 February, Breast cancer screening V76.10 [place] [id number] [place] [address] 70717- 6929 February, [place] [address] [id number] [place] [address] 04358- 0689 February, [place] [address] [id number] [place] [address] 13544- 3541 February, Cough 786.2 ; Obstructive chronic bronchitis, with (acute) exacerbation 491.21 ; Vomiting 787.03 ; 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 and Gastritis 535.50 [place] [address] [place] [address] [id number]- 7599 Jan, [address] 92765- 0054 13 Jan, 2015 [facility] [place] [facility] [address] [id number] [place] [address]- 1192 24 Dec, 2014 [facility] [place] [facility] [address] [id number] [place] [address]- 7575 20 Dec, 2014 [facility] [place] [facility] [address] [id number] [place] [address]- 3835 20 Dec, 2014 [facility] [place] [facility] [address] [id number] [place] [address]- 3341 13 Dec, 2014 [facility] [place] [facility] [address] [id number] [place] [address]- 2968 13 Dec, 2014 [facility] [place] [facility] [address] [id number] [place] [address]- 2470 12 Dec, 2014 [facility] [place] [facility] [address] [id number] [place] [address]- 1324 Dec, [facility] [place] [facility] [address] [id number] [place] [address]- 1108 Dec, [facility] [place] [facility] [address] [id number] [place] [address]- 3862 Dec, [facility] [place] [facility] [address] [id number] [place] [address]- 7663 Sep, [facility] [place] [facility] [address] [id number] [place] [address]- 4284 Sep, [facility] [place] [facility] [address] [id number] [place] [address]- 4857 Sep, [facility] [place] [facility] [address] [id number] [place] [address]- 4876 Sep, [facility] [place] [facility] [address] [id number] [place] [address]- 4787 Sep, [facility] [place] [facility] [address] [id number] [place] [address]- 3090 Sep, [facility] [place] [facility] [address] [id number] [place] [address]- 8040 Sep, [facility] [place] [facility] [address] [id number] [place] 6530 Sep, [facility] [place] [facility] [address] [id number] [place] [address]- 0450 Sep, [facility] [place] [facility] [address] [id number] [place] [address]- 6173 Sep, [facility] [place] [facility] [address] [id number] [place] [address]- 7585 Aug, [facility] [place] [facility] [address] [id number] [place] [address]- 1849 Aug, [facility] [place] [facility] [address] [id number] [place] [address]- 1737 Aug, [facility] [place] [facility] [address] [id number] [place] [address]- 8001 Aug, [facility] [place] [facility] [address] [id number] [place] [address]- 2695 Jul, [facility] [place] [facility] [address] [id number] [place] [address]- 2352 Jul, [facility] [place] [facility] [address] [id number] [place] [address]- 2660 Jun, [facility] [place] [facility] [address] [id number] [place] [address]- 1211 Jun, [facility] [place] [facility] [address] [id number] [place] [address]- 9615 May, [facility] [place] [facility] [address] [id number] [place] [address]- 3035 May, [facility] [place] [facility] [address] [id number] [place] 2842 May, [facility] [place] [facility] [address] [id number] [place] [address]- 6659 May, [facility] [place] [facility] [address] [id number] [place] [address]- 5529 May, [facility] [place] [facility] [address] [id number] [place] [address] May, [facility] [place] [facility] [address] [id number] [place] [address] Apr, [facility] [place] [facility] [address] [id number] [place] [address] Apr, [facility] [place] [facility] [address] [id number] [place] [address] Apr, [facility] [place] [facility] [address] [id number] [place] [address] Apr, [facility] [place] [facility] [address] [id number] [place] [address]- [address] February, [facility] [place] [facility] [address] [id number] [place] [address] February, [facility] [place] [facility] [address] [id number] [place] [address] Oct, [facility] [place] [facility] [address] [id number] [place] [address] Oct, [facility] [place] [facility] [address] [id number] [place] [address] Oct, [facility] [place] [facility] [address] [id number] [place] [address] Oct, [facility] [place] [facility] [address] [id number] [place] [address]- [address] Sep, [facility] [place] [facility] [address] [id number] [place] [address]- [address] Sep, [facility] [place] [facility] [address] [id number] [place] [address]- [address] Sep, [facility] [place] [facility] [address] [id number] [place] [address] Sep, [facility] [place] [facility] [address] [id number] [place] [address] Aug, [facility] [place] [facility] [address] [id number] [place] Aug, [facility] [place] [facility] [address] [id number] [place] [address]- [address] Aug, [facility] [place] [facility] [address] [id number] [place] [address]- [address] Aug, [facility] [place] [facility] [address] [id number] [place] [address] Jul, [facility] [place] [facility] [address] [id number] [place] [address] Jul, [facility] [place] [facility] [address] [address] [id number] [place] [address] Jul, [facility] [place] [facility] [address] [id number] [place] [address] Jul, [facility] [place] [facility] [address] [id number] [place] [address] Jul, [facility] [place] [facility] [address] [facility] [id number], [place] [address] Jul, [facility] [place] [facility] [address] [id number] [place] [address] Jul, [facility] [place] [facility] [address] [id number], [place] [address] Jul, [facility] [place] [facility] [address] [id number] [place] [address] Jul, [facility] [place] [facility] [address] [id number], [place] [address] Jul, [facility] [place] [facility] [address] [id number] [address] Jun, [facility] [id number] [address] May, [facility] [id number] [address] Apr, [facility] [id number], [place] [address] Apr, [facility] [address] [id number] [address] Apr, [facility] [id number], [place] [address] Mar, [facility] [id number], [place] [address] Mar, [facility] [id number], [place] [address] Mar, [facility] [id number], [place] [address] Mar, [facility] [id number], [place] [address] Mar, [facility] [id number], [place] [address] Sep, [facility] [id number], [place] [address] February, [facility] [id number], [place] [address] Jan, IMMUNIZATIONS No Known Immunizations SOCIAL HISTORY [...] bleeding 2015 Hospitalization History A fib with [facility] 02/06/17 Hospitalization History Altered mental status, lethargy-[facility] 07/10/17 Hospitalization History Chest pain-[facility] 08/05/17 Hospitalization History [facility] 10/2017 Hospitalization History Low potassium, A fib 01/2018 Hospitalization History Head injury 03/2018
--- OUTSIDE RECORDS SUMMARY | 2018-07-13 15:06 | XMS REPORT ---
Author Author FRANCHESKA HEADLEY Organization [facility] Address [address] [place] [address] Care Team Providers Care Legal Intern Name Role Phone FRANCHESKA HEADLEY Unavailable PROBLEMS Type Condition ICD9-CM Code RJA27-MD Code Onset Dates Condition Status SNOMED Code Problem Other chronic pain G89.29 Active 18014674 Problem Lumbago with sciatica, left side M54.42 Active 621441321 Problem Seasonal allergic rhinitis, unspecified allergic rhinitis trigger J30.2 Active 831037690 Problem Methamphetamine abuse F15.10 Active 952404938 Problem Primary insomnia F51.01 Active 203207558 Problem Unsteady gait R26.81 Active 68443495 Problem Seizure disorder G40.909 Active 512207498 Problem Fibromyalgia M79.7 Active 652663216 Problem Infection of right eye H44.001 Active [id number] Problem Chronic fatigue R53.82 Active 45862163 Problem Chronic pain syndrome G89.4 Active 437750462 Problem Esophagitis, reflux K21.0 Active 385454474 Problem COPD (chronic obstructive pulmonary disease) with acute bronchitis J44.0 Active [id number] Problem Edema, due to unspecified malnutrition type, unspecified type R60.9 Active 489907433 Problem Atrial fibrillation, unspecified type I48.91 Active 95925317 Problem Congestive heart failure, unspecified congestive heart failure chronicity, unspecified congestive heart failure type I50.9 Active 74556746 Problem Unspecified mood [affective] disorder F39 Active 541680494 Problem Major depressive disorder, recurrent episode, severe F33.2 Active 846352037250 Problem Lumbago with sciatica, right side M54.41 Active 335271921 Problem Polysubstance (excluding opioids) dependence F19.20 Active 37325206 Problem Anxiety F41.9 Active 72393634 ALLERGIES No Information ENCOUNTERS Encounter Location Date Diagnosis [facility] [address] [facility] [id number] [address] Jun, [facility] [address] [address] May, Anxiety F41.9 [facility] [address] [address]37- [address] May, [facility] [address] [address] May, Methamphetamine abuse F15.10 [facility] [address] [address]30 May, [facility] [address] 64322- 4010 Apr, [facility] [address] 97359- 0966 Apr, Lumbago with sciatica, right side M54.41 ; Chronic pain syndrome G89.4 and Primary insomnia F51.01 [facility] [address] [address] Apr, Acute right ankle pain M25.571 [facility] [address] [address] Apr, [facility] [address] 33976 [address] Apr, Seasonal allergic rhinitis, unspecified trigger J30.2 and Acute right ankle pain M25.571 [facility] [address] [id number] [place] [address] 59511- 8029 Mar, Primary insomnia F51.01 and Anxiety F41.9 [facility] [address] [address]- [address] Mar, [facility] [address] 44007- 8288 Mar, [facility] [address] 28278- 7835 Mar, Lumbago with sciatica, left side M54.42 [facility] [id number] [place] [address] 09894- 1220 Mar, [facility] [id number] [place] [address] 39225- 0639 Mar, Anxiety F41.9 [place] [address] [address]- 8[address] February, [facility] [id number] [place] [address] 59878- 0485 February, Unspecified mood [affective] disorder F39 [place] [id number] [place] [address] 12349- 2782 February, [place] [id number] [place] [address] 28281- 1879 February, [facility] [id number] [place] [address] 98007 -2570 February, Hordeolum externum of right upper eyelid H00.011 and Paronychia of finger of right hand L03.011 [place] [id number] [place] [address] 15911- 2082 February, [facility] [id number] [place] [address] 07111- 2809 February, Primary insomnia F51.01 ; Atrial fibrillation, unspecified type I48.91 ; Unsteady gait R26.81 ; General weakness R53.1 ; Chronic fatigue R53.82 ; Hypokalemia E87.6 and Other chronic pain G89.29 [facility] [id number] [place] [address] 29034- 9148 February, [facility] [id number] [place] [address] 31021- 0865 Jan, Lumbago with sciatica, right side M54.41 [place] [address] [place] [address] [address] Jan, Anxiety F41.9 ; Chronic pain syndrome G89.4 ; Folliculitis L73.9 and Fibromyalgia M79.7 [place] [address] 03039- 7745 Jan, Lumbago with sciatica, right side M54.41 [place] [address] 96735- 3395 Dec, [place] [address] 95256- 9795 Nov, Lumbago with sciatica, right side M54.41 [place] [address] 95672- 9835 Nov, [place] [address] 65480- 6260 Nov, Unspecified mood [affective] disorder F39 ; Hypokalemia E87.6 and Anemia, unspecified type D64.9 [place] [address] 96951- 0565 Nov, [place] [address] 59097- 1917 Oct, Lumbago with sciatica, right side M54.41 [facility] [place] [address] 6[address]49 [address]1137 Aug, Congestive heart failure, unspecified congestive heart failure chronicity, unspecified congestive heart failure type I50.9 and Peripheral edema R60.9 [place] [address] 38733- 1756 Aug, Polysubstance (excluding opioids) dependence F19.20 and Lumbago with sciatica, left side M54.42 [place] [address] 32802- 7756 Aug, [facility] [place] [address] [address] Aug, Infection of right eye H44.001 [place] [id number] [place] [address] 05878- 0670 Aug, Congestive heart failure, unspecified congestive heart failure chronicity, unspecified congestive heart failure type I50.9 and Other chronic pain G89.29 [place] [id number] [place] [address] 21555- 5250 Aug, Lumbago with sciatica, right side M54.41 [place] [id number] [place] [address] 20073- 5231 Aug, Lumbago with sciatica, right side M54.41 [place] [id number] [place] [address] 68284- 8648 Aug, [place] [id number] [place] [address] 72811- 6707 Jul, [place] [id number] [place] [address] 60908- 6668 Jul, COPD (chronic obstructive pulmonary disease) with acute bronchitis J44.0 ; Atrial fibrillation, unspecified type I48.91 ; Polysubstance (excluding opioids) dependence F19.20 ; Congestive heart failure, unspecified congestive heart failure chronicity, unspecified congestive heart failure type I50.9 and Lumbago with sciatica, right side M54.41 [facility] [address] [id number] [place] [address] [id number] Jul, [place] [id number] [place] [address] 71001- 0265 Jul, Seizure disorder G40.909 [place] [id number] [place] [address] 92111- 8918 Jul, Lumbago with sciatica, right side M54.41 [place] [id number] [place] [address] 18987- 4101 Jul, [facility] [address] [address] Jun, Congestive heart failure, unspecified congestive heart failure chronicity, unspecified congestive heart failure type I50.9 ; Lumbago with sciatica, right side M54.41 and Other chronic pain G89.29 [facility] [id number] [place] [address] 38973- 7162 Jun, [facility] [id number] [place] [address] 62224- 6717 Jun, [facility] [id number] [place] [address] 07473- 3877 May, Lumbago with sciatica, left side M54.42 [place] [id number] [place] [address] 10495- 8651 May, [facility] [id number] [place] [address] 90885 -6688 May, Unspecified fall, initial encounter W19.XXXA [place] [id number] [place] [address] 17563- 7894 May, Lumbago with sciatica, right side M54.41 [place] [id number] [place] [address] 14183- 8257 May, [facility] [id number] [place] [address] 99733- 8029 May, Bloating R14.0 and Right hip pain M25.551 [facility] [id number] [place] [address] 63809- 1420 Apr, [facility] [id number] [place] [address] 57615- 0898 Apr, Lumbago with sciatica, left side M54.42 [facility] [id number] [place] [address] 29614- 3860 Mar, [facility] [place] [id number] [place] [address] 85092 -7423 Mar, Lumbago with sciatica, right side M54.41 [facility] [place] [id number] [place] [address] 74862 -7688 Mar, Abdominal distension R14.0 [place] [address] 04183- 6677 Mar, Periumbilical abdominal pain R10.33 and Diarrhea, unspecified type R19.7 [facility] [place] [address] 11041 [address]72 February, Seasonal allergic rhinitis, unspecified allergic rhinitis trigger J30.2 ; Acute middle ear effusion, bilateral H65.193 and Lumbago with sciatica, right side M54.41 [place] [address] 36875- 0836 February, Routine gynecological examination Z01.419 [place] [address] 29813- 9607 Jan, [place] [address] 39356- 8351 Jan, Atrial fibrillation, unspecified type I48.91 [facility] [place] [id number] [place] [address] 59872 -7739 Jan, Lumbago with sciatica, right side M54.41 and Wound, open, toe, initial encounter S91.[address] [place] [address] [place] [id number] [place] [address] [id number] Jan, [facility] [place] [address] 30658 -9520 Jan, Acute bilateral low back pain without sciatica M54.5 [place] [address] 66126- 0270 Dec, Congestive heart failure, unspecified congestive heart failure chronicity, unspecified congestive heart failure type I50.9 [facility] [id number] [place] [address] 99101- 5843 Dec, [facility] [id number] [place] [address] 66335- 0045 Dec, Thrush, oral B37.0 and Lumbago with sciatica, right side M54.41 [facility] [address] 47436- 8263 Dec, [facility] [id number] [place] [address] 31484- 5822 Nov, [facility] [address] 54469- 2133 Nov, [facility] [address] 77528- 6536 Oct, Polysubstance (excluding opioids) dependence F19.20 ; Other chronic pain G89.29 and Lumbago with sciatica, right side M54.41 [facility] [id number] [place] [address] 51204- 1668 Oct, [facility] [id number] [place] [address] 43495- 3642 Aug, Lumbago with sciatica, right side M54.41 ; Other chronic pain G89.29 and Anxiety F41.9 [facility] [id number] [place] [address] 21826- 3443 Aug, [facility] [id number] [place] [address] 14772- 4697 Aug, [facility] [id number] [place] [address] 26738- 7720 Aug, [facility] [id number] [place] [address] 87264- 1038 Aug, [facility] [id number] [place] [address] 41800- 5501 Aug, [facility] [address] [address]- 0527 Aug, [facility] [id number] [place] [address] 03135- 5911 Jul, Unspecified mood [affective] disorder F39 and Seizure disorder G40.909 [facility] [id number] [place] [address] 49235- 1447 Jul, [facility] [id number] [place] [address] 03911- 7155 Jul, [facility] [id number] [place] [address] 19839- 4233 Jul, Unspecified mood [affective] disorder F39 and Seizure disorder G40.909 [facility] [id number] [place] [address] 53396- 5357 Jul, Polysubstance (excluding opioids) dependence F19.20 ; COPD ( chronic obstructive pulmonary disease) with acute bronchitis J44.0 ; Congestive heart failure, unspecified congestive heart failure chronicity, unspecified congestive heart failure type I50.9 ; Radiculopathy of lumbosacral region M54.17 and Radiculopathy, thoracic region M54.14 [facility] [address], [place] [address]- 1551 Jun, Lumbago M54.5 [facility] [id number] [place] [address] 43313- 4672 May, [facility] [id number] [place] [address] 71903- 3555 May, [facility] [id number] [place] [address] 11726- 5009 May, [facility] [id number] [place] [address] 52078- 5833 Apr, COPD (chronic obstructive pulmonary disease) with acute bronchitis J44.0 [facility] [id number] [place] [address] 63097- 8076 Apr, Major depressive disorder, recurrent episode, severe F33.2 and Polysubstance (excluding opioids) dependence F19.20 [facility] [id number] [place] [address] 14552- 4062 Mar, Major depressive disorder, recurrent episode, severe F33.2 and Polysubstance (excluding opioids) dependence F19.20 [facility] [id number] [place] [address] 37756- 4827 Mar, Major depressive disorder, recurrent episode, severe F33.2 and Polysubstance (excluding opioids) dependence F19.20 [facility] [id number] [place] [address] 42709- 8074 Mar, Major depressive disorder, recurrent episode, severe F33.2 and Polysubstance (excluding opioids) dependence F19.20 [place] [id number] [place] [address] 49615- 3904 February, Major depressive disorder, recurrent episode, severe F33.2 and Polysubstance (excluding opioids) dependence F19.20 [facility] [address] [address] [id number] [place] [address] 04824- 2140 February, [facility] [address] [id number] [place] [address] 86685- 4966 February, COPD (chronic obstructive pulmonary disease) with acute bronchitis J44.0 [facility] [address] [place] [address] 85048 -1604 February, Sore throat J02.9 and Bronchitis J40 [facility] [id number] [place] [address] 14965- 2347 Jan, COPD (chronic obstructive pulmonary disease) with acute bronchitis J44.0 [facility] [address] [place] [address] 12425- 3837 Jan, COPD (chronic obstructive pulmonary disease) with acute bronchitis J44.0 [facility] [id number] [place] [address] 18101- 8752 14 Jan, 2016 [facility] [address] 75294- 4433 Dec, Gastritis K29.70 ; Constipation K59.00 and Lumbago M54.5 [place] [address] 94592- 9251 Dec, COPD (chronic obstructive pulmonary disease) with acute bronchitis J44.0 [facility] [id number] [place] [address] 71937- 1384 18 Nov, 2015 Major depressive disorder, recurrent episode, severe F33.2 and Polysubstance (excluding opioids) dependence F19.20 [facility] [id number] [place] [address] 30742 -4093 Oct, Oral thrush B37.0 and Drug abuse F19.10 [facility] [address] 20444- 1517 Oct, [facility] [address] 64051- 3765 Sep, COPD (chronic obstructive pulmonary disease) with acute bronchitis J44.0 ; Esophagitis, reflux K21.0 ; Seizure disorder G40.909 ; Primary insomnia F51.01 ; Edema, due to unspecified malnutrition type, unspecified type R60.9 ; Arthritis M19.90 and Thrush B37.0 [facility] [id number] [place] [address] 21191- 3478 Aug, [facility] [address] 40555- 9095 Aug, [facility] [id number] [place] [address] 96900- 0485 Aug, [facility] [id number] [place] [address] 95744- 7333 Jul, [facility] [id number] [place] [address] 29708- 4489 Jun, [facility] [id number] [place] [address] 43150- 0714 Jun, Counseling on substance use and abuse V65.42 and Obstructive chronic bronchitis, with (acute) exacerbation 491.21 [place] [id number] [place] [address] 06546- 7489 May, [facility] [id number] [place] [address] 26090- 8416 Apr, [place] [address] 04031- 5613 Apr, Abdominal pain 789.00 and Back pain 724.5 [place] [id number] [place] [address] 15497- 7983 Mar, Back pain 724.5 and Illicit drug use 305.90 [place] [address] [address] [id number] [place] [address] 47890- 7559 February, Onychomycosis 110.1 [place] [id number] [place] [address] 04335- 9480 February, Breast cancer screening V76.10 [place] [id number] [place] [address] 81136- 1917 February, [place] [address] [place] [address] [id number] [place] [address] 91225- 7162 February, [place] [address] [place] [address] [id number] [place] [address] 50045- 2797 February, Cough 786.2 ; Obstructive chronic bronchitis, with (acute) exacerbation 491.21 ; Vomiting 787.03 ; 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 and Gastritis 535.50 [place] [address] [place] [address] [id number]- 8126 Jan, [address] 16687- 5911 13 Jan, 2015 [facility] [place] [facility] [address] [id number] [place] [address]- 0201 24 Dec, 2014 [facility] [place] [facility] [address] [id number] [place] [address]- 7678 20 Dec, 2014 [facility] [place] [facility] [address] [id number] [place] [address]- 2944 20 Dec, 2014 [facility] [place] [facility] [address] [id number] [place] [address]- 2256 13 Dec, 2014 [facility] [place] [facility] [address] [id number] [place] [address]- 9291 13 Dec, 2014 [facility] [place] [facility] [address] [id number] [place] [address]- 6555 12 Dec, 2014 [facility] [place] [facility] [address] [id number] [place] [address]- 0855 Dec, [facility] [place] [facility] [address] [id number] [place] [address]- 5167 Dec, [facility] [place] [facility] [address] [id number] [place] [address]- 1573 Dec, [facility] [place] [facility] [address] [id number] [place] [address]- 5175 Sep, [facility] [place] [facility] [address] [id number] [place] [address]- 2889 Sep, [facility] [place] [facility] [address] [id number] [place] [address]- 1241 Sep, [facility] [place] [facility] [address] [id number] [place] [address]- 7193 Sep, [facility] [place] [facility] [address] [id number] [place] [address]- 6493 Sep, [facility] [place] [facility] [address] [id number] [place] [address]- 9517 Sep, [facility] [place] [facility] [address] [id number] [place] [address]- 1024 Sep, [facility] [place] [facility] [address] [id number] [place] 1781 Sep, [facility] [place] [facility] [address] [id number] [place] [address] Sep, [facility] [place] [facility] [address] [id number] [place] [address] Sep, [facility] [place] [facility] [address] [id number] [place] [address] Aug, [facility] [place] [facility] [address] [id number] [place] [address] Aug, [facility] [place] [facility] [address] [id number] [place] [address] Aug, [facility] [place] [facility] [address] [id number] [place] [address] Aug, [facility] [place] [facility] [address] [id number] [place] [address] Jul, [facility] [place] [facility] [address] [id number] [place] [address] Jul, [facility] [place] [facility] [address] [id number] [place] [address] Jun, [facility] [place] [facility] [address] [id number] [place] [address] Jun, [facility] [place] [facility] [address] [id number] [place] [address] May, [facility] [place] [facility] [address] [id number] [place] [address] May, [facility] [place] [facility] [address] [id number] [place] [address] May, [facility] [place] [facility] [address] [id number] [place] [address] May, [facility] [place] [facility] [address] [id number] [place] [address] May, [facility] [place] [facility] [address] [id number] [place] [address] May, [facility] [place] [facility] [address] [id number] [place] [address] Apr, [facility] [place] [facility] [address] [id number] [place] [address] Apr, [facility] [place] [facility] [address] [id number] [place] [address] Apr, [facility] [place] [facility] [address] [id number] [place] [address] Apr, [facility] [place] [facility] [address] [id number] [place] [address] February, [facility] [place] [facility] [address] [id number] [place] [address] February, [facility] [place] [facility] [address] [id number] [place] [address] Oct, [facility] [place] [facility] [address] [id number] [place] [address] Oct, [facility] [place] [facility] [address] [id number] [place] [address] Oct, [facility] [place] [facility] [address] [id number] [place] [address] Oct, [facility] [place] [facility] [address] [id number] [place] [address] Sep, [facility] [place] [facility] [address] [id number] [place] [address] Sep, [facility] [place] [facility] [address] [id number] [place] [address] Sep, [facility] [place] [facility] [address] [id number] [place] [address] Sep, [facility] [place] [facility] [address] [id number] [place] [address] Aug, [facility] [place] [facility] [address] [id number] [place] Aug, [facility] [place] [facility] [address] [id number] [place] [address] Aug, [facility] [place] [facility] [address] [id number] [place] [address] Aug, [facility] [place] [facility] [address] [id number] [place] [address] Jul, [facility] [place] [facility] [address] [id number] [place] [address] Jul, [facility] [place] [facility] [address] [id number] [place] [address] Jul, [facility] [place] [facility] [address] [id number] [place] [address] Jul, [facility] [place] [facility] [address] [id number] [place] [address] Jul, [facility] [place] [facility] [address] [facility] [id number] [address] Jul, [facility] [place] [facility] [address] [id number] [place] [address] Jul, [facility] [place] [facility] [address] [id number], [place] [address] Jul, [facility] [place] [facility] [address] [id number] [place] [address] Jul, [facility] [place] [facility] [address] [id number], [place] [address] Jul, [facility] [place] [facility] [address] [id number] Jun, [facility] [id number], [place] [address] May, [facility] [id number], [place] [address] Apr, [facility] [id number], [place] [address] Apr, [facility] [address] [id number] [address] Apr, [facility] [id number], [place] [address] Mar, [facility] [id number], [place] [address] Mar, [facility] [id number], [place] [address] Mar, [facility] [id number], [place] [address] Mar, [facility] [id number], [place] [address] Mar, [facility] [id number], [place] [address] Sep, [facility] [id number], [place] [address] February, [facility] [id number], [place] [address] Jan, IMMUNIZATIONS No Known Immunizations SOCIAL HISTORY Never Assessed REASON FOR VISIT pain PLAN OF CARE VITAL SIGNS MEDICATIONS Unknown [...] bleeding 2015 Hospitalization History A fib with [facility] 02/06/17 Hospitalization History Altered mental status, lethargy-[facility] 07/10/17 Hospitalization History Chest pain-[facility] 08/05/17 Hospitalization History [facility] 10/2017 Hospitalization History Low potassium, A fib 01/2018 Hospitalization History Head injury 03/2018
--- OUTSIDE RECORDS SUMMARY | 2018-07-13 15:06 | XMS REPORT ---
Author Author FRANCHESKA HEADLEY Organization [facility] [place] Address [address] [place] [address] Care Team Providers Care Director Of Rehabilitative Services Name Role Phone FRANCHESKA HEADLEY Unavailable PROBLEMS Type Condition ICD9-CM Code QFP85-DM Code Onset Dates Condition Status SNOMED Code Problem Other chronic pain G89.29 Active 71951018 Problem Lumbago with sciatica, left side M54.42 Active 884813328 Problem Seasonal allergic rhinitis, unspecified allergic rhinitis trigger J30.2 Active 521982089 Problem Methamphetamine abuse F15.10 Active 300328224 Problem Primary insomnia F51.01 Active 923167149 Problem Unsteady gait R26.81 Active 32003440 Problem Seizure disorder G40.909 Active 754389153 Problem Fibromyalgia M79.7 Active 625597505 Problem Infection of right eye H44.001 Active [id number] Problem Chronic fatigue R53.82 Active 88337379 Problem Chronic pain syndrome G89.4 Active 383477379 Problem Esophagitis, reflux K21.0 Active 376380531 Problem COPD (chronic obstructive pulmonary disease) with acute bronchitis J44.0 Active 051489820442209 Problem Edema, due to unspecified malnutrition type, unspecified type R60.9 Active 151374882 Problem Atrial fibrillation, unspecified type I48.91 Active 14142700 Problem Congestive heart failure, unspecified congestive heart failure chronicity, unspecified congestive heart failure type I50.9 Active 44388427 Problem Unspecified mood [affective] disorder F39 Active 298848168 Problem Major depressive disorder, recurrent episode, severe F33.2 Active 114561972002 Problem Lumbago with sciatica, right side M54.41 Active 318664609 Problem Polysubstance (excluding opioids) dependence F19.20 Active 92420005 Problem Anxiety F41.9 Active 49676535 ALLERGIES No Information ENCOUNTERS Encounter Location Date Diagnosis [facility] [place] [address] [facility] [id number] [address] Jun, [facility] [place] [address] [address] May, Anxiety F41.9 [facility] [place] [address] [address] May, [facility] [address] [address] May, Methamphetamine abuse F15.10 [facility] [place] [address] 6[address]27- 3282 May, [facility] [place] [address] [address]- [address]43 Apr, [facility] [place] [address] 87444- 2283 Apr, Lumbago with sciatica, right side M54.41 ; Chronic pain syndrome G89.4 and Primary insomnia F51.01 [facility] [address] [address] Apr, Acute right ankle pain M25.571 [facility] [address] [address] Apr, [facility] [address] 99175 [address] Apr, Seasonal allergic rhinitis, unspecified trigger J30.2 and Acute right ankle pain M25.571 [facility] [place] [address] [place] [id number] [place] [address] 66403- 2327 Mar, Primary insomnia F51.01 and Anxiety F41.9 [facility] [place] [address] 14834- 3318 Mar, [facility] [place] [address] 56248- 8037 Mar, [facility] [place] [address] 70365- 9604 Mar, Lumbago with sciatica, left side M54.42 [facility] [place] [address] [place] [id number] [place] [address] 26284- 1539 Mar, [facility] [place] [address] [place] [id number] [place] [address] 25757- 1579 Mar, Anxiety F41.9 [place] [address] 0[address]- [address]32 February, [facility] [place] [address] [place] [id number] [place] [address] 67743- 5215 February, Unspecified mood [affective] disorder F39 [place] [address] [place] [id number] [place] [address] 09007- 1372 February, [place] [address] [place] [id number] [place] [address] 22037- 6596 February, [facility] [address] [id number] [place] [address] 09287 -5356 February, Hordeolum externum of right upper eyelid H00.011 and Paronychia of finger of right hand L03.011 [place] [address] [place] [id number] [place] [address] 83725- 9029 February, [facility] [place] [address] [id number] [place] [address] 78887- 0210 February, Primary insomnia F51.01 ; Atrial fibrillation, unspecified type I48.91 ; Unsteady gait R26.81 ; General weakness R53.1 ; Chronic fatigue R53.82 ; Hypokalemia E87.6 and Other chronic pain G89.29 [facility] [place] [address] [place] [id number] [place] [address] 04953- 0671 February, [facility] [place] [id number] [place] [address] 34059- 5075 Jan, Lumbago with sciatica, right side M54.41 [place] [address] [place] [address] [address]33 Jan, Anxiety F41.9 ; Chronic pain syndrome G89.4 ; Folliculitis L73.9 and Fibromyalgia M79.7 [place] [address] 60135- 3185 Jan, Lumbago with sciatica, right side M54.41 [place] [address] 96500- 6670 Dec, [place] [address] 49136- 4643 Nov, Lumbago with sciatica, right side M54.41 [place] [address] 72133- 6573 Nov, [place] [address] 18639- 4830 Nov, Unspecified mood [affective] disorder F39 ; Hypokalemia E87.6 and Anemia, unspecified type D64.9 [place] [address] 55998- 4579 Nov, [place] [address] 45848- 0116 Oct, Lumbago with sciatica, right side M54.41 [facility] [place] [address] 6[address]35 -4963 Aug, Congestive heart failure, unspecified congestive heart failure chronicity, unspecified congestive heart failure type I50.9 and Peripheral edema R60.9 [place] [address] 30839- 0590 Aug, Polysubstance (excluding opioids) dependence F19.20 and Lumbago with sciatica, left side M54.42 [place] [address] 22320- 0274 Aug, [facility] [place] [address] [address] Aug, Infection of right eye H44.001 [place] [address] [place] [id number] [place] [address] 11563- 2818 Aug, Congestive heart failure, unspecified congestive heart failure chronicity, unspecified congestive heart failure type I50.9 and Other chronic pain G89.29 [place] [address] [place] [id number] [place] [address] 20866- 9787 Aug, Lumbago with sciatica, right side M54.41 [place] [address] [place] [id number] [place] [address] 19448- 1515 Aug, Lumbago with sciatica, right side M54.41 [place] [address] [place] [id number] [place] [address] 28106- 6640 Aug, [place] [address] [place] [id number] [place] [address] 09071- 9651 Jul, [place] [address] [place] [id number] [place] [address] 30509- 6954 Jul, COPD (chronic obstructive pulmonary disease) with acute bronchitis J44.0 ; Atrial fibrillation, unspecified type I48.91 ; Polysubstance (excluding opioids) dependence F19.20 ; Congestive heart failure, unspecified congestive heart failure chronicity, unspecified congestive heart failure type I50.9 and Lumbago with sciatica, right side M54.41 [facility] [address] [place] [id number] [place] [address] [id number] Jul, [place] [address] [place] [id number] [place] [address] 52666- 4297 Jul, Seizure disorder G40.909 [place] [address] [place] [id number] [place] [address] 18586- 1463 Jul, Lumbago with sciatica, right side M54.41 [place] [address] [place] [id number] [place] [address] 25174- 4140 Jul, [facility] [place] [address] [address] Jun, Congestive heart failure, unspecified congestive heart failure chronicity, unspecified congestive heart failure type I50.9 ; Lumbago with sciatica, right side M54.41 and Other chronic pain G89.29 [facility] [place] [address] [place] [id number] [place] [address] 52230- 2750 Jun, [facility] [place] [address] [place] [id number] [place] [address] 11040- 4789 Jun, [facility] [place] [address] [place] [id number] [place] [address] 46058- 2015 May, Lumbago with sciatica, left side M54.42 [place] [address] [place] [id number] [place] [address] 09498- 7794 May, [facility] [id number] [place] [address] 94458 -3521 May, Unspecified fall, initial encounter W19.XXXA [place] [address] [place] [id number] [place] [address] 75150- 8202 May, Lumbago with sciatica, right side M54.41 [place] [address] [place] [id number] [place] [address] 57692- 1865 May, [facility] [place] [address] [id number] [place] [address] 08965- 6614 May, Bloating R14.0 and Right hip pain M25.551 [facility] [place] [address] [id number] [place] [address] 97542- 3640 Apr, [facility] [place] [address] [place] [id number] [place] [address] 79611- 8952 Apr, Lumbago with sciatica, left side M54.42 [facility] [place] [address] [id number] [place] [address] 59666- 8227 Mar, [facility] [place] [address] [id number] [place] [address] 70230 -1344 Mar, Lumbago with sciatica, right side M54.41 [facility] [place] [address] [id number] [place] [address] 88647 -5187 Mar, Abdominal distension R14.0 [place] [address] 01310- 4648 Mar, Periumbilical abdominal pain R10.33 and Diarrhea, unspecified type R19.7 [facility] [place] [address] 54161 -5528 February, Seasonal allergic rhinitis, unspecified allergic rhinitis trigger J30.2 ; Acute middle ear effusion, bilateral H65.193 and Lumbago with sciatica, right side M54.41 [place] [address] 87126- 3272 February, Routine gynecological examination Z01.419 [place] [address] 31013- 9151 Jan, [place] [address] 24982- 3638 Jan, Atrial fibrillation, unspecified type I48.91 [facility] [place] [address] [place] [id number] [place] [address] 84924 -9618 Jan, Lumbago with sciatica, right side M54.41 and Wound, open, toe, initial encounter S91.109A [place] [address] [place] [id number] [place] [address] [id number] Jan, [facility] [place] [address] 53155 -3118 Jan, Acute bilateral low back pain without sciatica M54.5 [place] [address] 54677- 2632 Dec, Congestive heart failure, unspecified congestive heart failure chronicity, unspecified congestive heart failure type I50.9 [facility] [place] [address] [place] [id number] [place] [address] 87794- 9349 Dec, [facility] [place] [address] [place] [id number] [place] [address] 30001- 1329 Dec, Thrush, oral B37.0 and Lumbago with sciatica, right side M54.41 [facility] [place] [address] 74186- 5580 Dec, [facility] [place] [address] [place] [id number] [place] [address] 93055- 3944 Nov, [facility] [place] [address] 05756- 4795 Nov, [facility] [place] [address] 10298- 4899 Oct, Polysubstance (excluding opioids) dependence F19.20 ; Other chronic pain G89.29 and Lumbago with sciatica, right side M54.41 [facility] [place] [address] [id number] [place] [address] 87663- 2625 Oct, [facility] [place] [address] [place] [id number] [place] [address] 49741- 6818 Aug, Lumbago with sciatica, right side M54.41 ; Other chronic pain G89.29 and Anxiety F41.9 [facility] [place] [address] [id number] [place] [address] 56591- 4546 Aug, [facility] [place] [address] [place] [id number] [place] [address] 83668- 3204 Aug, [facility] [place] [address] [id number] [place] [address] 60020- 8515 Aug, [facility] [place] [address] [id number] [place] [address] 89312- 7172 Aug, [facility] [place] [address] [place] [id number] [place] [address] 54832- 1325 Aug, [facility] [place] [address], [place] [address]- 6082 Aug, [facility] [place] [address] [place] [address] 50394- 1801 Jul, Unspecified mood [affective] disorder F39 and Seizure disorder G40.909 [facility] [place] [address] [place] [id number] [place] [address] 34353- 4489 Jul, [facility] [place] [address] [place] [address] 50572- 5043 Jul, [facility] [place] [address] [id number] [place] [address] 11356- 3943 Jul, Unspecified mood [affective] disorder F39 and Seizure disorder G40.909 [facility] [place] [address] [place] [address] 73696- 1924 Jul, Polysubstance (excluding opioids) dependence F19.20 ; COPD ( chronic obstructive pulmonary disease) with acute bronchitis J44.0 ; Congestive heart failure, unspecified congestive heart failure chronicity, unspecified congestive heart failure type I50.9 ; Radiculopathy of lumbosacral region M54.17 and Radiculopathy, thoracic region M54.14 [facility] [place] [address] [address]- 1186 Jun, Lumbago M54.5 [facility] [place] [address] [place] [address] 64551- 4693 May, [facility] [place] [address] [place] [address] 20652- 7781 May, [facility] [place] [address] [id number] [place] [address] 54847- 3131 May, [facility] [place] [address] [place] [address] 48550- 0910 Apr, COPD (chronic obstructive pulmonary disease) with acute bronchitis J44.0 [facility] [place] [address] [place] [address] 39872- 5959 Apr, Major depressive disorder, recurrent episode, severe F33.2 and Polysubstance (excluding opioids) dependence F19.20 [facility] [place] [address] [place] [id number] [place] [address] 57048- 8750 Mar, Major depressive disorder, recurrent episode, severe F33.2 and Polysubstance (excluding opioids) dependence F19.20 [facility] [place] [address] [place] [id number] [place] [address] 11951- 5168 Mar, Major depressive disorder, recurrent episode, severe F33.2 and Polysubstance (excluding opioids) dependence F19.20 [facility] [place] [address] [place] [id number] [place] [address] 05966- 1768 Mar, Major depressive disorder, recurrent episode, severe F33.2 and Polysubstance (excluding opioids) dependence F19.20 [place] [address] [place] [id number] [place] [address] 27245- 3529 February, Major depressive disorder, recurrent episode, severe F33.2 and Polysubstance (excluding opioids) dependence F19.20 [facility] [place] [address] [place] [id number] [place] [address] 51167- 8561 February, [facility] [place] [address] [place] [id number] [place] [address] 93874- 9432 February, COPD (chronic obstructive pulmonary disease) with acute bronchitis J44.0 [facility] [address] [place] [address] 43424 -3134 February, Sore throat J02.9 and Bronchitis J40 [facility] [place] [address] [place] [id number] [place] [address] 98724- 1347 Jan, COPD (chronic obstructive pulmonary disease) with acute bronchitis J44.0 [facility] [place] [address] [place] [address] 93130- 6566 Jan, COPD (chronic obstructive pulmonary disease) with acute bronchitis J44.0 [facility] [place] [address] [place] [id number] [place] [address] 47208- 2494 14 Jan, 2016 [facility] [place] [address] 09603- 0895 Dec, Gastritis K29.70 ; Constipation K59.00 and Lumbago M54.5 [place] [address] 44137- 6065 Dec, COPD (chronic obstructive pulmonary disease) with acute bronchitis J44.0 [facility] [place] [address] [place] [id number] [place] [address] 87055- 7104 18 Nov, 2015 Major depressive disorder, recurrent episode, severe F33.2 and Polysubstance (excluding opioids) dependence F19.20 [facility] [address] [id number] [place] [address] 99488 -6742 Oct, Oral thrush B37.0 and Drug abuse F19.10 [facility] [place] [address] 64957- 9971 Oct, [facility] [place] [address] 17122- 6606 Sep, COPD (chronic obstructive pulmonary disease) with acute bronchitis J44.0 ; Esophagitis, reflux K21.0 ; Seizure disorder G40.909 ; Primary insomnia F51.01 ; Edema, due to unspecified malnutrition type, unspecified type R60.9 ; Arthritis M19.90 and Thrush B37.0 [facility] [place] [address] [id number] [place] [address] 61846- 0592 Aug, [facility] [place] [address] 99207- 3426 Aug, [facility] [place] [address] [place] [id number] [place] [address] 78891- 9423 Aug, [facility] [place] [address] [place] [id number] [place] [address] 67986- 6386 Jul, [facility] [place] [address] [place] [address] 27310- 0420 Jun, [facility] [place] [address] [place] [id number] [place] [address] 58758- 9590 Jun, Counseling on substance use and abuse V65.42 and Obstructive chronic bronchitis, with (acute) exacerbation 491.21 [place] [address] [place] [id number] [place] [address] 01215- 7514 May, [facility] [place] [address] [place] [id number] [place] [address] 71523- 1144 Apr, [place] [address] 15586- 6737 Apr, Abdominal pain 789.00 and Back pain 724.5 [place] [id number] [place] [address] 73743- 2896 Mar, Back pain 724.5 and Illicit drug use 305.90 [place] [address] [place] [id number] [place] [address] 15774- 2328 February, Onychomycosis 110.1 [place] [id number] [place] [address] 70241- 8419 February, Breast cancer screening V76.10 [place] [id number] [place] [address] 99716- 8859 February, [place] [address] [place] [id number] [place] [address] 11504- 5833 February, [place] [address] [place] [id number] [place] [address] 39950- 5035 February, Cough 786.2 ; Obstructive chronic bronchitis, with (acute) exacerbation 491.21 ; Vomiting 787.03 ; 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 and Gastritis 535.50 [place] [address] [place] [address] [id number]- 6951 Jan, [address] 32961- 3517 13 Jan, 2015 [facility] [place] [facility] [address] [id number] [place] [address]- 3454 24 Dec, 2014 [facility] [place] [facility] [address] [id number] [place] [address]- 5557 20 Dec, 2014 [facility] [place] [facility] [address] [id number] [place] [address]- 8350 20 Dec, 2014 [facility] [place] [facility] [address] [id number] [place] [address]- 7980 13 Dec, 2014 [facility] [place] [facility] [address] [id number] [place] [address]- 2998 13 Dec, 2014 [facility] [place] [facility] [address] [id number] [place] [address]- 6365 12 Dec, 2014 [facility] [place] [facility] [address] [id number] [place] [address]- 7222 Dec, [facility] [place] [facility] [address] [id number] [place] [address]- 1664 Dec, [facility] [place] [facility] [address] [id number] [place] [address]- 8651 Dec, [facility] [place] [facility] [address] [id number] [place] [address]- 7594 Sep, [facility] [place] [facility] [address] [id number] [place] [address] Sep, [facility] [place] [facility] [address] [id number] [place] [address] Sep, [facility] [place] [facility] [address] [id number] [place] [address] Sep, [facility] [place] [facility] [address] [id number] [place] [address] Sep, [facility] [place] [facility] [address] [id number] [place] [address] Sep, [facility] [place] [facility] [address] [id number] [place] [address] Sep, [facility] [place] [facility] [address] [id number] [place] [address] Sep, [facility] [place] [facility] [address] [id number] [place] [address] Sep, [facility] [place] [facility] [address] [id number] [place] [address] Sep, [facility] [place] [facility] [address] [id number] [place] [address] Aug, [facility] [place] [facility] [address] [id number] [place] [address] Aug, [facility] [place] [facility] [address] [id number] [place] [address] Aug, [facility] [place] [facility] [address] [id number] [place] [address] Aug, [facility] [place] [facility] [address] [id number] [place] [address] Jul, [facility] [place] [facility] [address] [id number] [place] [address] Jul, [facility] [place] [facility] [address] [id number] [place] [address] Jun, [facility] [place] [facility] [address] [id number] [place] [address] Jun, [facility] [place] [facility] [address] [id number] [place] [address] May, [facility] [place] [facility] [address] [id number] [place] [address] May, [facility] [place] [facility] [address] [id number] [place] [address] May, [facility] [place] [facility] [address] [id number] [place] [address] May, [facility] [place] [facility] [address] [id number] [place] [address] May, [facility] [place] [facility] [address] [id number] [place] [address] May, [facility] [place] [facility] [address] [id number] [place] [address] Apr, [facility] [place] [facility] [address] [id number] [place] [address] Apr, [facility] [place] [facility] [address] [id number] [place] [address] Apr, [facility] [place] [facility] [address] [id number] [place] [address]- [address] Apr, [facility] [place] [facility] [address] [id number] [place] [address] February, [facility] [place] [facility] [address] [id number] [place] [address] February, [facility] [place] [facility] [address] [id number] [place] [address] Oct, [facility] [place] [facility] [address] [id number] [place] [address] Oct, [facility] [place] [facility] [address] [id number] [place] [address] Oct, [facility] [place] [facility] [address] [id number] [place] [address] Oct, [facility] [place] [facility] [address] [id number] [place] [address] Sep, [facility] [place] [facility] [address] [id number] [place] [address] Sep, [facility] [place] [facility] [address] [id number] [place] [address] Sep, [facility] [place] [facility] [address] [id number] [place] [address] Sep, [facility] [place] [facility] [address] [id number] [place] [address] Aug, [facility] [place] [facility] [address] [id number] [place] [address] Aug, [facility] [place] [facility] [address] [id number] [place] [address] Aug, [facility] [place] [facility] [address] [id number] [place] [address] Aug, [facility] [place] [facility] [address] [id number] [place] [address] Jul, [facility] [place] [facility] [address] [id number] [place] [address] Jul, [facility] [place] [facility] [address] [id number] [place] [address] Jul, [facility] [place] [facility] [address] [id number] [place] [address] Jul, [facility] [place] [facility] [address] [id number] [place] [address] Jul, [facility] [place] [facility] [address] [facility] [id number], [place] [address] Jul, [facility] [place] [facility] [address] [id number] [place] [address] Jul, [facility] [place] [facility] [address] [id number], [place] [address] Jul, [facility] [place] [facility] [address] [id number] [place] [address] Jul, [facility] [place] [facility] [address] [id number], [place] [address] Jul, [facility] [place] [facility] [address] [id number] [address] Jun, [facility] [place] [id number], [place] [address] May, [facility] [place] [id number], [place] [address] Apr, [facility], [place] [id number], [place] [address] Apr, [facility], [place] [id number] [place] [address] Apr, [facility], [place] [id number], [place] [address] Mar, [facility], [place] [id number] [place] [address] Mar, [facility], [place] [id number], [place] [address] Mar, [facility], [place] [id number], [place] [address] Mar, [facility], [place] [id number], [place] [address] Mar, [facility], [place] [id number], [place] [address] Sep, [facility], [place] [id number], [place] [address] February, [facility], [place] [id number], [place] [address] Jan, IMMUNIZATIONS Vaccine Route Administration Date Status TORADOL (IM) 60 MG/2ML (UP TO 15 MG) IM Intramuscular April 03, 2018 Administered SOCIAL HISTORY Never Assessed REASON FOR VISIT Injection---Elizabeth pt came to clinic c/o persistant back pain, requesting Toradol injection, approved by Pratik, Also states she was unable to fill flexeril. Pt advised per telephone encounter 03/14/18 script was sent to [facility] and had been placed in med box bid per physician practice managerYanira. Pt verbalizes understanding. PLAN OF CARE VITAL SIGNS MEDICATIONS Unknown Medications RESULTS No Results PROCEDURES Procedure Date Ordered Result Body Site TORADOL (IM) 60 MG/2ML (UP TO 15 MG) April 03, 2018 THER/PROPH/DIAG INJ, SC/IM April 03, 2018 INSTRUCTIONS MEDICATIONS ADMINISTERED No Known Medications [...] [facility] 02/06/17 Hospitalization History Altered mental status, lethargy-[facility] 07/10/17 Hospitalization History Chest pain-[facility] 08/05/17 Hospitalization History [facility] 10/2017 Hospitalization History Low potassium, A fib 01/2018 Hospitalization History Head injury 03/2018
--- OUTSIDE RECORDS SUMMARY | 2018-07-13 15:07 | XMS REPORT ---
Author Author FRANCHESKA HEADLEY Organization [facility] Address [address] [place] [address] Care Team Providers Care Agency Sales Development Associate Name Role Phone FRANCHESKA HEADLEY Unavailable PROBLEMS Type Condition ICD9-CM Code GCC38-EV Code Onset Dates Condition Status SNOMED Code Problem Other chronic pain G89.29 Active 45910771 Problem Lumbago with sciatica, left side M54.42 Active 358094457 Problem Seasonal allergic rhinitis, unspecified allergic rhinitis trigger J30.2 Active 691734576 Problem Methamphetamine abuse F15.10 Active 013119413 Problem Primary insomnia F51.01 Active 916840096 Problem Unsteady gait R26.81 Active 92533634 Problem Seizure disorder G40.909 Active 630636177 Problem Fibromyalgia M79.7 Active 406044317 Problem Infection of right eye H44.001 Active 28029012364671495 Problem Chronic fatigue R53.82 Active 99621844 Problem Chronic pain syndrome G89.4 Active 682949419 Problem Esophagitis, reflux K21.0 Active 608064842 Problem COPD (chronic obstructive pulmonary disease) with acute bronchitis J44.0 Active [id number] Problem Edema, due to unspecified malnutrition type, unspecified type R60.9 Active 004658129 Problem Atrial fibrillation, unspecified type I48.91 Active 95138557 Problem Congestive heart failure, unspecified congestive heart failure chronicity, unspecified congestive heart failure type I50.9 Active 41542346 Problem Unspecified mood [affective] disorder F39 Active 686027622 Problem Major depressive disorder, recurrent episode, severe F33.2 Active 489451814255 Problem Lumbago with sciatica, right side M54.41 Active 938017981 Problem Polysubstance (excluding opioids) dependence F19.20 Active 40192492 Problem Anxiety F41.9 Active 43993369 ALLERGIES No Information ENCOUNTERS Encounter Location Date Diagnosis [facility] [address] [facility] [id number] [address] May, [facility] [id number] [place] [address] 11395- 1871 May, [facility] [id number] [place] [address] 29882 -5484 May, Methamphetamine abuse F15.10 [facility] [id number] [place] [address] 36661- 4925 May, [facility] [id number] [place] [address] 12875- 7566 Apr, [facility] [id number] [place] [address] 82838- 5371 Apr, Lumbago with sciatica, right side M54.41 ; Chronic pain syndrome G89.4 and Primary insomnia F51.01 [facility] [id number] [place] [address] 31662 -8770 Apr, Acute right ankle pain M25.571 [facility] [id number] [place] [address] 49345 -2764 Apr, [facility] [id number] [place] [address] 94557 -9511 Apr, Seasonal allergic rhinitis, unspecified trigger J30.2 and Acute right ankle pain M25.571 [place] [id number] [place] [address] 21656- 3192 Mar, Primary insomnia F51.01 and Anxiety F41.9 [facility] [id number] [place] [address] 51631- 0092 Mar, [facility] [id number] [place] [address] 44616- 5684 Mar, [facility] [id number] [place] [address] 90201- 0545 Mar, Lumbago with sciatica, left side M54.42 [facility] [address] [place] [address] 7375 Mar, [facility] [id number] [place] [address] 72076- 4160 Mar, Anxiety F41.9 [facility] [id number] [place] [address] 67837- 9982 February, [facility] [id number] [place] [address] 97294- 6204 February, Unspecified mood [affective] disorder F39 [facility] [id number] [place] [address] 21328- 0997 February, [facility] [id number] [place] [address] 30778- 5626 February, [facility] [id number] [place] [address] 72115 -8418 February, Hordeolum externum of right upper eyelid H00.011 and Paronychia of finger of right hand L03.011 [facility] [id number] [place] [address] 03524- 4198 February, [place] [id number] [place] [address] 03365- 9097 February, Primary insomnia F51.01 ; Atrial fibrillation, unspecified type I48.91 ; Unsteady gait R26.81 ; General weakness R53.1 ; Chronic fatigue R53.82 ; Hypokalemia E87.6 and Other chronic pain G89.29 [facility] [id number] [place] [address] 82485- 7366 February, [facility] [id number] [place] [address] 65720- 5978 Jan, Lumbago with sciatica, right side M54.41 [facility] [id number] [place] [address] 54519- 9829 Jan, Anxiety F41.9 ; Chronic pain syndrome G89.4 ; Folliculitis L73.9 and Fibromyalgia M79.7 [place] [id number] [place] [address] 05200- 3661 Jan, Lumbago with sciatica, right side M54.41 [facility] [id number] [place] [address] 52706- 5764 Dec, [place] [address] 20449- 4107 Nov, Lumbago with sciatica, right side M54.41 [place] [address] 02784- 9978 Nov, [place] [address] 20380- 7155 Nov, Unspecified mood [affective] disorder F39 ; Hypokalemia E87.6 and Anemia, unspecified type D64.9 [place] [address] 50640- 2203 Nov, [place] [address] 87944- 3492 Oct, Lumbago with sciatica, right side M54.41 [facility] [place] [id number] [place] [address] 47153 -3979 Aug, Congestive heart failure, unspecified congestive heart failure chronicity, unspecified congestive heart failure type I50.9 and Peripheral edema R60.9 [place] [id number] [place] [address] 96308- 6439 17 Aug, 2017 Polysubstance (excluding opioids) dependence F19.20 and Lumbago with sciatica, left side M54.42 [place] [id number] [place] [address] 57472- 6072 17 Aug, 2017 [facility] [id number] [place] [address] 89094 -5251 14 Aug, 2017 Infection of right eye H44.001 [facility] [id number] [place] [address] 66924- 3677 14 Aug, 2017 Congestive heart failure, unspecified congestive heart failure chronicity, unspecified congestive heart failure type I50.9 and Other chronic pain G89.29 [place] [id number] [place] [address] 87898- 2036 Aug, Lumbago with sciatica, right side M54.41 [place] [id number] [place] [address] 93685- 2906 Aug, Lumbago with sciatica, right side M54.41 [place] [address] 33377- 4473 Aug, [place] [id number] [place] [address] 69883- 7276 Jul, [place] [address] 30434- 1977 Jul, COPD (chronic obstructive pulmonary disease) with acute bronchitis J44.0 ; Atrial fibrillation, unspecified type I48.91 ; Polysubstance (excluding opioids) dependence F19.20 ; Congestive heart failure, unspecified congestive heart failure chronicity, unspecified congestive heart failure type I50.9 and Lumbago with sciatica, right side M54.41 [facility] [id number] [place] [address] [id number] Jul, [facility] [id number] [place] [address] 71304- 1805 Jul, Seizure disorder G40.909 [facility] [id number] [place] [address] 59633- 8762 Jul, Lumbago with sciatica, right side M54.41 [facility] [id number] [place] [address] 89647- 6320 Jul, [facility] [id number] [place] [address] 79651- 2771 Jun, Congestive heart failure, unspecified congestive heart failure chronicity, unspecified congestive heart failure type I50.9 ; Lumbago with sciatica, right side M54.41 and Other chronic pain G89.29 [place] [id number] [place] [address] 25242- 0625 Jun, [place] [id number] [place] [address] 21886- 3856 Jun, [place] [id number] [place] [address] 91550- 5008 May, Lumbago with sciatica, left side M54.42 [place] [address] 23964- 8547 May, [facility] [place] [id number] [place] [address] 42398 -2613 May, Unspecified fall, initial encounter W19.XXXA [place] [id number] [place] [address] 06654- 1620 May, Lumbago with sciatica, right side M54.41 [place] [id number] [place] [address] 68374- 7962 May, [place] [id number] [place] [address] 37975- 7703 May, Bloating R14.0 and Right hip pain M25.551 [place] [id number] [place] [address] 75644- 4505 Apr, [place] [id number] [place] [address] 59288- 9961 Apr, Lumbago with sciatica, left side M54.42 [place] [id number] [place] [address] 09325- 3034 Mar, [facility] [id number] [place] [address] 21331 -5519 Mar, Lumbago with sciatica, right side M54.41 [facility] [place] [address] 18442 -8886 Mar, Abdominal distension R14.0 [place] [address] 33038- 2609 Mar, Periumbilical abdominal pain R10.33 and Diarrhea, unspecified type R19.7 [facility] [place] [address] 59927 -5426 February, Seasonal allergic rhinitis, unspecified allergic rhinitis trigger J30.2 ; Acute middle ear effusion, bilateral H65.193 and Lumbago with sciatica, right side M54.41 [place] [address] 95533- 3775 February, Routine gynecological examination Z01.419 [place] [address] 31775- 6226 Jan, [place] [address] 23162- 0136 Jan, Atrial fibrillation, unspecified type I48.91 [facility] [place] [address] 33771 -9785 Jan, Lumbago with sciatica, right side M54.41 and Wound, open, toe, initial encounter S91.109A [place] [address] [id number] Jan, [facility] [place] [address] 09829 -3032 Jan, Acute bilateral low back pain without sciatica M54.5 [place] [address] 46895- 9120 Dec, Congestive heart failure, unspecified congestive heart failure chronicity, unspecified congestive heart failure type I50.9 [place] [address] 26871- 8728 Dec, [facility] [address] [address]- 4808 Dec, Thrush, oral B37.0 and Lumbago with sciatica, right side M54.41 [facility] [id number] [place] [address] 79490- 4087 Dec, [facility] [id number] [place] [address] 91030- 8333 Nov, [facility] [id number] [place] [address] 09386- 4736 Nov, [facility] [address] 93260- 7570 Oct, Polysubstance (excluding opioids) dependence F19.20 ; Other chronic pain G89.29 and Lumbago with sciatica, right side M54.41 [facility] [id number] [place] [address] 06620- 2573 Oct, [facility] [id number] [place] [address] 91568- 0821 Aug, Lumbago with sciatica, right side M54.41 ; Other chronic pain G89.29 and Anxiety F41.9 [facility] [address] [address]- 4274 Aug, [facility] [id number] [place] [address] 48461- 8400 Aug, [facility] [id number] [place] [address] 69057- 8211 Aug, [facility] [id number] [place] [address] 90331- 5288 Aug, [facility] [id number] [place] [address] 60898- 9343 Aug, [facility] [id number] [place] [address] 59560- 0760 Aug, [facility] [address] [place] [address] 70791- 3612 Jul, Unspecified mood [affective] disorder F39 and Seizure disorder G40.909 [facility] [id number] [place] [address] 58039- 3205 Jul, [facility] [id number] [place] [address] 69644- 2739 Jul, [facility] [id number] [place] [address] 69464- 0475 Jul, Unspecified mood [affective] disorder F39 and Seizure disorder G40.909 [facility] [id number] [place] [address] 12957- 9095 Jul, Polysubstance (excluding opioids) dependence F19.20 ; COPD ( chronic obstructive pulmonary disease) with acute bronchitis J44.0 ; Congestive heart failure, unspecified congestive heart failure chronicity, unspecified congestive heart failure type I50.9 ; Radiculopathy of lumbosacral region M54.17 and Radiculopathy, thoracic region M54.14 [place] [id number] [place] [address] 59839- 3585 Jun, Lumbago M54.5 [facility] [id number] [place] [address] 18676- 6089 May, [facility] [id number] [place] [address] 19725- 5225 May, [facility] [id number] [place] [address] 67217- 2933 May, [facility] [id number] [place] [address] 56947- 4433 Apr, COPD (chronic obstructive pulmonary disease) with acute bronchitis J44.0 [facility] [id number] [place] [address] 69643- 3943 Apr, Major depressive disorder, recurrent episode, severe F33.2 and Polysubstance (excluding opioids) dependence F19.20 [facility] [id number] [place] [address] 68932- 4324 Mar, Major depressive disorder, recurrent episode, severe F33.2 and Polysubstance (excluding opioids) dependence F19.20 [facility] [id number] [place] [address] 85204- 2220 Mar, Major depressive disorder, recurrent episode, severe F33.2 and Polysubstance (excluding opioids) dependence F19.20 [facility] [id number] [place] [address] 41429- 2042 Mar, Major depressive disorder, recurrent episode, severe F33.2 and Polysubstance (excluding opioids) dependence F19.20 [facility] [id number] [place] [address] 22250- 4036 February, Major depressive disorder, recurrent episode, severe F33.2 and Polysubstance (excluding opioids) dependence F19.20 [facility] [id number] [place] [address] 09153- 4334 February, [facility] [address] 66635- 9227 February, COPD (chronic obstructive pulmonary disease) with acute bronchitis J44.0 [facility] [id number] [place] [address] 71402 -9395 February, Sore throat J02.9 and Bronchitis J40 [facility] [id number] [place] [address] 20833- 5471 Jan, COPD (chronic obstructive pulmonary disease) with acute bronchitis J44.0 [facility] [id number] [place] [address] 16303- 5684 Jan, COPD (chronic obstructive pulmonary disease) with acute bronchitis J44.0 [facility] [id number] [place] [address] 98324- 4932 Jan, [facility] [id number] [place] [address] 86933- 3382 Dec, Gastritis K29.70 ; Constipation K59.00 and Lumbago M54.5 [facility] [address] 75241- 3921 Dec, COPD (chronic obstructive pulmonary disease) with acute bronchitis J44.0 [place] [address] 83804- 4296 18 Nov, 2015 Major depressive disorder, recurrent episode, severe F33.2 and Polysubstance (excluding opioids) dependence F19.20 [facility] [address] 68103 -9243 Oct, Oral thrush B37.0 and Drug abuse F19.[address] 42897- 4453 Oct, [address] 17770- 0735 Sep, COPD (chronic obstructive pulmonary disease) with acute bronchitis J44.0 ; Esophagitis, reflux K21.0 ; Seizure disorder G40.909 ; Primary insomnia F51.01 ; Edema, due to unspecified malnutrition type, unspecified type R60.9 ; Arthritis M19.90 and Thrush B37.0 [place] [id number] [place] [address] 83109- 2544 Aug, [place] [address] 41016- 6607 Aug, [place] [address] 23362- 9308 Aug, [place] [address] 29649- 4553 Jul, [place] [address] 40690- 2919 Jun, [id number] [place] [address] 78902- 3220 Jun, Counseling on substance use and abuse V65.42 and Obstructive chronic bronchitis, with (acute) exacerbation 491.21 [facility] [id number] [place] [address] 27856- 9477 May, [facility] [address] 67891- 3346 Apr, [facility] [address] 42826- 7683 Apr, Abdominal pain 789.00 and Back pain 724.5 [place] [address] 79783- 8728 Mar, Back pain 724.5 and Illicit drug use 305.[address] 13310- 2994 February, Onychomycosis 110.1 [place] [address] 80397- 0638 February, Breast cancer screening V76.10 [place] [id number] [place] [address] 63218- 1616 February, [place] [id number] [place] [address] 45659- 9797 February, [place] [id number] [place] [address] 48212- 8115 February, Cough 786.2 ; Obstructive chronic bronchitis, with (acute) exacerbation 491.21 ; Vomiting 787.03 ; 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 and Gastritis 535.50 [place] [id number] [place] [address] 43337- 2104 Jan, [place] [address] [id number] [place] [address] 14494- 2188 Jan, [facility] [address] 87659- 6106 24 Dec, 2014 [facility] [place] [facility] [address] [id number] [place] [address]- 1265 20 Dec, 2014 [facility] [place] [facility] [address] [id number] [place] [address]- 7868 20 Dec, 2014 [facility] [place] [facility] [address] [id number] [place] [address]- 1509 13 Dec, 2014 [facility] [place] [facility] [address] [id number] [place] [address]- 5593 13 Dec, 2014 [facility] [place] [facility] [address] [id number] [place] [address]- 6847 12 Dec, 2014 [facility] [place] [facility] [address] [id number] [place] [address]- 3688 12 Dec, 2014 [facility] [place] [facility] [address] [id number] [place] [address]- 0548 Dec, [facility] [place] [facility] [address] [id number] [place] [address]- 5006 Dec, [facility] [place] [facility] [address] [id number] [place] [address]- 6656 Sep, [facility] [place] [facility] [address] [id number] [place] [address]- 2707 Sep, [facility] [place] [facility] [address] [id number] [place] [address]- 2086 Sep, [facility] [place] [facility] [address] [id number] [place] [address]- 4746 Sep, [facility] [place] [facility] [address] [id number] [place] [address]- 1680 Sep, [facility] [place] [facility] [address] [id number] [place] [address]- 1295 Sep, [facility] [place] [facility] [address] [id number] [place] [address]- 9620 Sep, [facility] [place] [facility] [address] [id number] [place] [address]- 9387 Sep, [facility] [place] [facility] [address] [id number] [place] [address]- 1937 Sep, [facility] [place] [facility] [address] [id number] [place] [address]- 8589 Sep, [facility] [place] [facility] [address] [id number] [place] [address]- 7325 Aug, [facility] [place] [facility] [address] [id number] [place] [address]- 9840 Aug, [facility] [place] [facility] [address] [id number] [place] [address]- 7614 Aug, [facility] [place] [facility] [address] [id number] [place] [address]- 0288 Aug, [facility] [place] [facility] [address] [id number] [place] [address]- 3178 Jul, [facility] [place] [facility] [address] [id number] [place] [address]- 9105 Jul, [facility] [place] [facility] [address] [id number] [place] [address]- 4736 Jun, [facility] [place] [facility] [address] [id number] [place] [address]- 8984 Jun, [facility] [place] [facility] [address] [id number] [place] [address]- 7069 May, [facility] [place] [facility] [address] [id number] [place] [address]- 7908 May, [facility] [place] [facility] [address] [id number] [place] [address]- 3870 May, [facility] [place] [facility] [address] [id number] [place] [address]- 6583 May, [facility] [place] [facility] [address] [id number] [place] [address]- 9348 May, [facility] [place] [facility] [address] [id number] [place] [address] May, [facility] [place] [facility] [address] [id number] [place] [address] Apr, [facility] [place] [facility] [address] [id number] [place] [address] Apr, [facility] [place] [facility] [address] [id number] [place] [address] Apr, [facility] [place] [facility] [address] [id number] [place] [address] Apr, [facility] [place] [facility] [address] [id number] [place] [address] February, [facility] [place] [facility] [address] [id number] [place] [address] February, [facility] [place] [facility] [address] [id number] [place] [address] Oct, [facility] [place] [facility] [address] [id number] [place] [address] Oct, [facility] [place] [facility] [address] [id number] [place] [address] Oct, [facility] [place] [facility] [address] [id number] [place] [address] Oct, [facility] [place] [facility] [address] [id number], [place] [address] Sep, [facility] [place] [facility] [address] [id number] [place] [address] Sep, [facility] [place] [facility] [address] [id number] [place] [address] Sep, [facility] [place] [facility] [address] [id number] [place] [address] Sep, [facility] [place] [facility] [address] [id number][place] [address] Aug, [facility] [place] [facility] [address] [id number] [place] [address] Aug, [facility] [place] [facility] [address] [id number][place] [address] Aug, [facility] [place] [facility] [address] [address] [id number] [place] [address] Aug, [facility] [place] [facility] [address] [id number] [place] [address] Jul, [facility] [place] [facility] [address] [id number] [place] [address] Jul, [facility] [place] [facility] [address] [id number] [place] [address] Jul, [facility] [place] [facility] [address] [id number] [address] Jul, [facility] [place] [facility] [address] [id number] [place] [address] Jul, [facility] [place] [facility] [address] [id number] [address] Jul, [facility] [place] [facility] [address] [facility] [id number][place] [address] Jul, [facility] [place] [facility] [address] [id number][place] [address] Jul, [facility] [place] [facility] [address] [id number][place] [address] Jul, [facility] [place] [facility] [address] [id number], [place] [address] Jul, [facility] [place] [facility] [address] [id number][place] [address] Jun, [facility] [place] [facility] [address] [id number][place] [address] May, [facility] [place] [facility] [address] [id number] [address] Apr, [facility] [address] [id number] [address] Apr, [facility] [address] [id number] [address] Apr, [facility] [id number], [place] [address] Mar, [facility] [id number] [address] Mar, [facility] [id number] [address] Mar, [facility] [id number], [place] [address] Mar, [facility] [id number], [place] [address] Mar, [facility] [address] [id number] [address] Sep, [facility] [id number] [address] February, [facility] [address] [id number] [address] Jan, IMMUNIZATIONS No Known Immunizations SOCIAL HISTORY Never Assessed REASON FOR VISIT Refill request PLAN OF CARE VITAL SIGNS MEDICATIONS Medication Instructions Dosage Frequency Start Date End Date Duration Status Risperdal 1 MG Orally 2 times a day 1 tablet 12h Jan, 30 day(s ) Active RESULTS No Results PROCEDURES No Known [...] 2015 Hospitalization History A fib with [facility] [place] 02/06/17 Hospitalization History Altered mental status, lethargy-[facility] [place] 07/10/17 Hospitalization History Chest pain-[facility] [place] 08/05/17 Hospital[facility] History [facility] 10/2017 Hospitalization History Low potassium, A fib 01/2018 Hospitalization History Head injury 03/2018
--- OUTSIDE RECORDS SUMMARY | 2018-07-13 15:07 | XMS REPORT ---
Author Author FRANCHESKA HEADLEY Organization [facility] Address [address] [place] [address] Care Team Providers Care Jewel Hole Rough Opener Name Role Phone FRANCHESKA HEADLEY Unavailable PROBLEMS Type Condition ICD9-CM Code XTO10-TW Code Onset Dates Condition Status SNOMED Code Problem Other chronic pain G89.29 Active 24520919 Problem Lumbago with sciatica, left side M54.42 Active 930677352 Problem Seasonal allergic rhinitis, unspecified allergic rhinitis trigger J30.2 Active 873919809 Problem Methamphetamine abuse F15.10 Active 736515563 Problem Primary insomnia F51.01 Active 005793957 Problem Unsteady gait R26.81 Active 35787455 Problem Seizure disorder G40.909 Active 191615796 Problem Fibromyalgia M79.7 Active 676272834 Problem Infection of right eye H44.001 Active [id number] Problem Chronic fatigue R53.82 Active 59341435 Problem Chronic pain syndrome G89.4 Active 266162502 Problem Esophagitis, reflux K21.0 Active 939769185 Problem COPD (chronic obstructive pulmonary disease) with acute bronchitis J44.0 Active [id number] Problem Edema, due to unspecified malnutrition type, unspecified type R60.9 Active 801367414 Problem Atrial fibrillation, unspecified type I48.91 Active 98290276 Problem Congestive heart failure, unspecified congestive heart failure chronicity, unspecified congestive heart failure type I50.9 Active 98993117 Problem Unspecified mood [affective] disorder F39 Active 653387972 Problem Major depressive disorder, recurrent episode, severe F33.2 Active 329245614838 Problem Lumbago with sciatica, right side M54.41 Active 158926286 Problem Polysubstance (excluding opioids) dependence F19.20 Active 72826009 Problem Anxiety F41.9 Active 63981834 ALLERGIES No Information ENCOUNTERS Encounter Location Date Diagnosis [facility] [address] [facility] [id number] [address] May, [facility] [id number] [place] [address] 72644- 7905 May, [facility] [id number] [place] [address] 66107 -3025 May, Methamphetamine abuse F15.10 [facility] [id number] [place] [address] 76579- 2243 May, [facility] [id number] [place] [address] 77153- 7892 Apr, [facility] [id number] [place] [address] 98588- 9022 Apr, Lumbago with sciatica, right side M54.41 ; Chronic pain syndrome G89.4 and Primary insomnia F51.01 [facility] [id number] [place] [address] 73539 -4746 Apr, Acute right ankle pain M25.571 [facility] [id number] [place] [address] 74182 -8610 Apr, [facility] [id number] [place] [address] 07372 -3675 Apr, Seasonal allergic rhinitis, unspecified trigger J30.2 and Acute right ankle pain M25.571 [place] [id number] [place] [address] 84439- 5599 Mar, Primary insomnia F51.01 and Anxiety F41.9 [facility] [id number] [place] [address] 81407- 2191 Mar, [facility] [id number] [place] [address] 05179- 8864 Mar, [facility] [id number] [place] [address] 23539- 9625 Mar, Lumbago with sciatica, left side M54.42 [facility] [address] [place] [address] 5[address] Mar, [facility] [id number] [place] [address] 17614- 9275 Mar, Anxiety F41.9 [facility] [id number] [place] [address] 71546- 8657 February, [facility] [id number] [place] [address] 95627- 9326 February, Unspecified mood [affective] disorder F39 [facility] [id number] [place] [address] 22877- 8299 February, [facility] [id number] [place] [address] 87647- 6805 February, [facility] [id number] [place] [address] 49331 -0555 February, Hordeolum externum of right upper eyelid H00.011 and Paronychia of finger of right hand L03.011 [facility] [id number] [place] [address] 96499- 8276 February, [place] [id number] [place] [address] 99448- 2125 February, Primary insomnia F51.01 ; Atrial fibrillation, unspecified type I48.91 ; Unsteady gait R26.81 ; General weakness R53.1 ; Chronic fatigue R53.82 ; Hypokalemia E87.6 and Other chronic pain G89.29 [facility] [address] [place] [address] 12411- 5099 February, [facility] [id number] [place] [address] 82893- 4956 Jan, Lumbago with sciatica, right side M54.41 [facility] [id number] [place] [address] 88915- 3797 Jan, Anxiety F41.9 ; Chronic pain syndrome G89.4 ; Folliculitis L73.9 and Fibromyalgia M79.7 [place] [id number] [place] [address] 22053- 9569 Jan, Lumbago with sciatica, right side M54.41 [facility] [id number] [place] [address] 30113- 4489 Dec, [place] [address] 09112- 2529 Nov, Lumbago with sciatica, right side M54.41 [place] [address] 47412- 4879 Nov, [place] [address] 16381- 4389 Nov, Unspecified mood [affective] disorder F39 ; Hypokalemia E87.6 and Anemia, unspecified type D64.9 [place] [address] 99579- 1140 Nov, [place] [address] 48311- 4966 Oct, Lumbago with sciatica, right side M54.41 [facility] [place] [id number] [place] [address] 59074 -3640 Aug, Congestive heart failure, unspecified congestive heart failure chronicity, unspecified congestive heart failure type I50.9 and Peripheral edema R60.9 [place] [id number] [place] [address] 03488- 3517 17 Aug, 2017 Polysubstance (excluding opioids) dependence F19.20 and Lumbago with sciatica, left side M54.42 [place] [id number] [place] [address] 32492- 9307 17 Aug, 2017 [facility] [id number] [place] [address] 52256 -4695 14 Aug, 2017 Infection of right eye H44.001 [facility] [address] [place] [address] 93556- 1852 14 Aug, 2017 Congestive heart failure, unspecified congestive heart failure chronicity, unspecified congestive heart failure type I50.9 and Other chronic pain G89.29 [place] [address] [place] [address] 46193- 1032 Aug, Lumbago with sciatica, right side M54.41 [place] [id number] [place] [address] 67527- 9365 Aug, Lumbago with sciatica, right side M54.41 [place] [address] 76215- 6979 Aug, [place] [id number] [place] [address] 67177- 1319 Jul, [place] [address] 76360- 7095 Jul, COPD (chronic obstructive pulmonary disease) with acute bronchitis J44.0 ; Atrial fibrillation, unspecified type I48.91 ; Polysubstance (excluding opioids) dependence F19.20 ; Congestive heart failure, unspecified congestive heart failure chronicity, unspecified congestive heart failure type I50.9 and Lumbago with sciatica, right side M54.41 [facility] [id number] [place] [address] [id number] Jul, [facility] [id number] [place] [address] 98533- 9055 Jul, Seizure disorder G40.909 [facility] [id number] [place] [address] 85253- 5015 Jul, Lumbago with sciatica, right side M54.41 [facility] [id number] [place] [address] 13458- 8026 Jul, [facility] [id number] [place] [address] 83546- 4734 Jun, Congestive heart failure, unspecified congestive heart failure chronicity, unspecified congestive heart failure type I50.9 ; Lumbago with sciatica, right side M54.41 and Other chronic pain G89.29 [place] [id number] [place] [address] 57567- 2549 Jun, [place] [id number] [place] [address] 15448- 0183 Jun, [place] [id number] [place] [address] 94876- 1644 May, Lumbago with sciatica, left side M54.42 [place] [address] 40458- 1486 May, [facility] [place] [id number] [place] [address] 42522 -4805 May, Unspecified fall, initial encounter W19.XXXA [place] [id number] [place] [address] 12753- 2060 May, Lumbago with sciatica, right side M54.41 [place] [id number] [place] [address] 40941- 7710 May, [place] [id number] [place] [address] 44559- 8183 May, Bloating R14.0 and Right hip pain M25.551 [place] [id number] [place] [address] 39694- 6529 Apr, [place] [id number] [place] [address] 28944- 8664 Apr, Lumbago with sciatica, left side M54.42 [place] [id number] [place] [address] 07644- 2852 Mar, [facility] [id number] [place] [address] 80837 -9617 Mar, Lumbago with sciatica, right side M54.41 [facility] [place] [address] 19592 -2730 Mar, Abdominal distension R14.0 [place] [address] 35410- 8753 Mar, Periumbilical abdominal pain R10.33 and Diarrhea, unspecified type R19.7 [facility] [place] [address] 51949 -9741 February, Seasonal allergic rhinitis, unspecified allergic rhinitis trigger J30.2 ; Acute middle ear effusion, bilateral H65.193 and Lumbago with sciatica, right side M54.41 [place] [address] 70555- 3306 February, Routine gynecological examination Z01.419 [place] [address] 45084- 3772 Jan, [place] [address] 20369- 5560 Jan, Atrial fibrillation, unspecified type I48.91 [facility] [place] [address] 02824 -0891 Jan, Lumbago with sciatica, right side M54.41 and Wound, open, toe, initial encounter S91.109A [place] [address] [id number] Jan, [facility] [place] [address] 91064 -6996 Jan, Acute bilateral low back pain without sciatica M54.5 [place] [address] 38644- 3523 Dec, Congestive heart failure, unspecified congestive heart failure chronicity, unspecified congestive heart failure type I50.9 [place] [address] 26829- 6700 Dec, [facility] [address] [address] 0046 Dec, Thrush, oral B37.0 and Lumbago with sciatica, right side M54.41 [facility] [id number] [place] [address] 76791- 9073 Dec, [facility] [id number] [place] [address] 70211- 5244 Nov, [facility] [id number] [place] [address] 79313- 0445 Nov, [facility] [address] 00794- 7182 Oct, Polysubstance (excluding opioids) dependence F19.20 ; Other chronic pain G89.29 and Lumbago with sciatica, right side M54.41 [facility] [id number] [place] [address] 87054- 0181 Oct, [facility] [id number] [place] [address] 02419- 2147 Aug, Lumbago with sciatica, right side M54.41 ; Other chronic pain G89.29 and Anxiety F41.9 [facility] [address] [address]- 2825 Aug, [facility] [id number] [place] [address] 89244- 4950 Aug, [facility] [id number] [place] [address] 93037- 5869 Aug, [facility] [id number] [place] [address] 75788- 1981 Aug, [facility] [address] [place] [address] 60511- 5527 Aug, [facility] [id number] [place] [address] 69047- 3433 Aug, [facility] [address] [place] [address] 51942- 7762 Jul, Unspecified mood [affective] disorder F39 and Seizure disorder G40.909 [facility] [id number] [place] [address] 76184- 3361 Jul, [facility] [id number] [place] [address] 56797- 4980 Jul, [facility] [id number] [place] [address] 73659- 8502 Jul, Unspecified mood [affective] disorder F39 and Seizure disorder G40.909 [facility] [id number] [place] [address] 68380- 6473 Jul, Polysubstance (excluding opioids) dependence F19.20 ; COPD ( chronic obstructive pulmonary disease) with acute bronchitis J44.0 ; Congestive heart failure, unspecified congestive heart failure chronicity, unspecified congestive heart failure type I50.9 ; Radiculopathy of lumbosacral region M54.17 and Radiculopathy, thoracic region M54.14 [place] [id number] [place] [address] 71804- 2589 Jun, Lumbago M54.5 [facility] [id number] [place] [address] 43407- 5870 May, [facility] [id number] [place] [address] 41182- 3029 May, [facility] [id number] [place] [address] 86540- 8030 May, [facility] [id number] [place] [address] 70074- 2254 Apr, COPD (chronic obstructive pulmonary disease) with acute bronchitis J44.0 [facility] [id number] [place] [address] 21098- 1066 Apr, Major depressive disorder, recurrent episode, severe F33.2 and Polysubstance (excluding opioids) dependence F19.20 [facility] [id number] [place] [address] 70918- 7106 Mar, Major depressive disorder, recurrent episode, severe F33.2 and Polysubstance (excluding opioids) dependence F19.20 [facility] [id number] [place] [address] 46873- 7806 Mar, Major depressive disorder, recurrent episode, severe F33.2 and Polysubstance (excluding opioids) dependence F19.20 [facility] [id number] [place] [address] 10160- 2990 Mar, Major depressive disorder, recurrent episode, severe F33.2 and Polysubstance (excluding opioids) dependence F19.20 [facility] [id number] [place] [address] 44581- 0173 February, Major depressive disorder, recurrent episode, severe F33.2 and Polysubstance (excluding opioids) dependence F19.20 [facility] [id number] [place] [address] 53868- 9181 February, [facility] [address] 73391- 4267 February, COPD (chronic obstructive pulmonary disease) with acute bronchitis J44.0 [facility] [id number] [place] [address] 31215 -2929 February, Sore throat J02.9 and Bronchitis J40 [facility] [id number] [place] [address] 91684- 2148 Jan, COPD (chronic obstructive pulmonary disease) with acute bronchitis J44.0 [facility] [id number] [place] [address] 53313- 0833 Jan, COPD (chronic obstructive pulmonary disease) with acute bronchitis J44.0 [facility] [id number] [place] [address] 57234- 4854 Jan, [facility] [id number] [place] [address] 52348- 2176 Dec, Gastritis K29.70 ; Constipation K59.00 and Lumbago M54.5 [facility] [address] 88253- 4554 Dec, COPD (chronic obstructive pulmonary disease) with acute bronchitis J44.0 [place] [address] 99518- 5842 18 Nov, 2015 Major depressive disorder, recurrent episode, severe F33.2 and Polysubstance (excluding opioids) dependence F19.20 [facility] [address] 73898 -0168 Oct, Oral thrush B37.0 and Drug abuse F19.[address] 07118- 1820 Oct, [address] 72176- 9445 Sep, COPD (chronic obstructive pulmonary disease) with acute bronchitis J44.0 ; Esophagitis, reflux K21.0 ; Seizure disorder G40.909 ; Primary insomnia F51.01 ; Edema, due to unspecified malnutrition type, unspecified type R60.9 ; Arthritis M19.90 and Thrush B37.0 [place] [id number] [place] [address] 41579- 7708 Aug, [place] [address] 86593- 8274 Aug, [place] [address] 69285- 7852 Aug, [place] [address] 64675- 2785 Jul, [place] [address] 64276- 7118 Jun, [id number] [place] [address] 73232- 2874 Jun, Counseling on substance use and abuse V65.42 and Obstructive chronic bronchitis, with (acute) exacerbation 491.21 [facility] [id number] [place] [address] 04327- 4611 May, [facility] [address] 06888- 5609 Apr, [facility] [address] 31987- 5311 Apr, Abdominal pain 789.00 and Back pain 724.5 [place] [address] 01739- 0623 Mar, Back pain 724.5 and Illicit drug use 305.[address] 04303- 0738 February, Onychomycosis 110.1 [place] [address] 24176- 5339 February, Breast cancer screening V76.10 [place] [address] [place] [id number] [place] [address] 12598- 1368 February, [place] [address] [address] [id number] [place] [address] 21053- 5334 February, [place] [address] [address] [id number] [place] [address] 33634- 3943 February, Cough 786.2 ; Obstructive chronic bronchitis, with (acute) exacerbation 491.21 ; Vomiting 787.03 ; 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 and Gastritis 535.50 [place] [address] [place] [id number] [place] [address] 39149- 1981 Jan, [place] [address] [place] [id number] [place] [address] 26975- 7389 Jan, [facility] [address] 68259- 0606 24 Dec, 2014 [facility] [place] [facility] [address] [id number] [place] [address]- 0810 20 Dec, 2014 [facility] [place] [facility] [address] [id number] [place] [address]- 6861 20 Dec, 2014 [facility] [place] [facility] [address] [id number] [place] [address]- 7106 13 Dec, 2014 [facility] [place] [facility] [address] [id number] [place] [address]- 6940 13 Dec, 2014 [facility] [place] [facility] [address] [id number] [place] [address]- 5515 12 Dec, 2014 [facility] [place] [facility] [address] [id number] [place] [address]- 4439 12 Dec, 2014 [facility] [place] [facility] [address] [id number] [place] [address]- 0787 Dec, [facility] [place] [facility] [address] [id number] [place] [address]- 7445 Dec, [facility] [place] [facility] [address] [id number] [place] [address]- 7086 Sep, [facility] [place] [facility] [address] [id number] [place] [address]- 7584 Sep, [facility] [place] [facility] [address] [id number] [place] [address]- 0463 Sep, [facility] [place] [facility] [address] [id number] [place] [address]- 6528 Sep, [facility] [place] [facility] [address] [id number] [place] [address]- 6840 Sep, [facility] [place] [facility] [address] [id number] [place] [address]- 1014 Sep, [facility] [place] [facility] [address] [id number] [place] [address]- 1255 Sep, [facility] [place] [facility] [address] [id number] [place] [address]- 8782 Sep, [facility] [place] [facility] [address] [id number] [place] [address]- 2144 Sep, [facility] [place] [facility] [address] [id number] [place] [address]- 4628 Sep, [facility] [place] [facility] [address] [id number] [place] [address]- 0979 Aug, [facility] [place] [facility] [address] [id number] [place] [address]- 1113 Aug, [facility] [place] [facility] [address] [id number] [place] [address]- 2746 Aug, [facility] [place] [facility] [address] [id number] [place] [address]- 6465 Aug, [facility] [place] [facility] [address] [id number] [place] [address]- 3006 Jul, [facility] [place] [facility] [address] [id number] [place] [address]- 2127 Jul, [facility] [place] [facility] [address] [id number] [place] [address]- 7188 Jun, [facility] [place] [facility] [address] [id number] [place] [address]- 4312 Jun, [facility] [place] [facility] [address] [id number] [place] [address]- 9195 May, [facility] [place] [facility] [address] [id number] [place] [address]- 2602 May, [facility] [place] [facility] [address] [id number] [place] [address]- 0489 May, [facility] [place] [facility] [address] [id number] [place] [address]- 7138 May, [facility] [place] [facility] [address] [id number] [place] [address]- 2401 May, [facility] [place] [facility] [address] [id number] [place] [address]- 1854 May, [facility] [place] [facility] [address] [id number] [place] [address]- 1513 Apr, [facility] [place] [facility] [address] [id number] [place] [address] Apr, [facility] [place] [facility] [address] [id number] [place] [address] Apr, [facility] [place] [facility] [address] [id number] [place] [address] Apr, [facility] [place] [facility] [address] [id number] [place] [address] February, [facility] [place] [facility] [address] [id number] [place] [address] February, [facility] [place] [facility] [address] [id number] [place] [address] Oct, [facility] [place] [facility] [address] [id number] [place] [address] Oct, [facility] [place] [facility] [address] [id number] [place] [address] Oct, [facility] [place] [facility] [address] [id number] [place] [address] Oct, [facility] [place] [facility] [address] [id number], [place] [address] Sep, [facility] [place] [facility] [address] [id number] [place] [address] Sep, [facility] [place] [facility] [address] [id number] [place] [address] Sep, [facility] [place] [facility] [address] [id number] [place] [address] Sep, [facility] [place] [facility] [address] [id number], [place] [address] Aug, [facility] [place] [facility] [address] [id number] [place] [address] Aug, [facility] [place] [facility] [address] [id number], [place] [address] Aug, [facility] [place] [facility] [address] [id number] [place] [address] Aug, [facility] [place] [facility] [address] [id number] [place] [address] Jul, [facility] [place] [facility] [address] [id number] [place] [address] Jul, [facility] [place] [facility] [address] [id number] [place] [address] Jul, [facility] [place] [facility] [address] [id number], [place] [address] Jul, [facility] [place] [facility] [address] [id number] [place] [address] Jul, [facility] [place] [facility] [address] [id number], [place] [address] Jul, [facility] [place] [facility] [address] [facility] [id number], [place] [address] Jul, [facility] [address] [id number], [place] [address] Jul, [facility] [address] [id number], [place] [address] Jul, [facility] [address] [id number], [place] [address] Jul, [facility] [address] [id number], [place] [address] Jun, [facility] [address] [id number], [place] [address] May, [facility] [address] [id number], [place] [address] Apr, [facility] [address] [id number], [place] [address] Apr, [facility] [id number], [place] [address] Apr, [facility] [id number], [place] [address] Mar, [facility] [id number], [place] [address] Mar, [facility] [id number], [place] [address] Mar, [facility] [id number], [place] [address] Mar, [facility] [address], [place] [address] Mar, [facility] [id number], [place] [address] Sep, [facility] [id number], [place] [address] February, [facility] [address] [id number], [place] [address] Jan, IMMUNIZATIONS No Known Immunizations SOCIAL HISTORY Never Assessed REASON FOR VISIT Refill request/ PLAN OF CARE VITAL SIGNS MEDICATIONS Medication Instructions Dosage Frequency Start Date End Date Duration Status Cyclobenzaprine HCl 10 mg Orally 2 times a day, deliver to [facility] at [facility] 1 tablet as needed Jun, Active [...] [facility] 02/06/17 Hospitalization History Altered mental status, lethargy-[facility] 07/10/17 Hospitalization History Chest pain-[facility] 08/05/17 Hospitalization History [facility] 10/2017 Hospitalization History Low potassium, A fib 01/2018 Hospitalization History Head injury 03/2018
--- OUTSIDE RECORDS SUMMARY | 2018-07-13 15:08 | XMS REPORT ---
Author Author FRANCHESKA HEADLEY Organization [facility] Address [address] [place] [address] Care Team Providers Care Vessel Traffic Officer Name Role Phone FRANCHESKA HEADLEY Unavailable PROBLEMS Type Condition ICD9-CM Code [id number] Code Onset Dates Condition Status SNOMED Code Problem Other chronic pain G89.29 Active 13168149 Problem Lumbago with sciatica, left side M54.42 Active 341412968 Problem Seasonal allergic rhinitis, unspecified allergic rhinitis trigger J30.2 Active 204942726 Problem Methamphetamine abuse F15.10 Active 475201012 Problem Primary insomnia F51.01 Active 694040547 Problem Unsteady gait R26.81 Active 47307094 Problem Seizure disorder G40.909 Active 726085225 Problem Fibromyalgia M79.7 Active 195546037 Problem Infection of right eye H44.001 Active [id number] Problem Chronic fatigue R53.82 Active 21992551 Problem Chronic pain syndrome G89.4 Active 535278707 Problem Esophagitis, reflux K21.0 Active 397956880 Problem COPD (chronic obstructive pulmonary disease) with acute bronchitis J44.0 Active [id number] Problem Edema, due to unspecified malnutrition type, unspecified type R60.9 Active 793053100 Problem Atrial fibrillation, unspecified type I48.91 Active 81385470 Problem Congestive heart failure, unspecified congestive heart failure chronicity, unspecified congestive heart failure type I50.9 Active 33523905 Problem Unspecified mood [affective] disorder F39 Active 152288219 Problem Major depressive disorder, recurrent episode, severe F33.2 Active 267323381681 Problem Lumbago with sciatica, right side M54.41 Active 962179412 Problem Polysubstance (excluding opioids) dependence F19.20 Active 59252515 Problem Anxiety F41.9 Active 67848783 ALLERGIES No Information ENCOUNTERS Encounter Location Date Diagnosis [facility] [address] [facility] [id number] [address] May, [facility] [address] [id number] [place] [address] 00963- 1024 May, [facility] [id number] [place] [address] 35486 -0068 May, Methamphetamine abuse F15.10 [facility] [id number] [place] [address] 38594- 1620 May, [facility] [id number] [place] [address] 03669- 3284 Apr, [facility] [id number] [place] [address] 55819- 8012 Apr, Lumbago with sciatica, right side M54.41 ; Chronic pain syndrome G89.4 and Primary insomnia F51.01 [facility] [id number] [place] [address] 86185 -2859 Apr, Acute right ankle pain M25.571 [facility] [id number] [place] [address] 46120 -9282 Apr, [facility] [id number] [place] [address] 56224 -6833 Apr, Seasonal allergic rhinitis, unspecified trigger J30.2 and Acute right ankle pain M25.571 [place] [id number] [place] [address] 85044- 7551 Mar, Primary insomnia F51.01 and Anxiety F41.9 [facility] [id number] [place] [address] 97422- 7125 Mar, [facility] [id number] [place] [address] 83707- 9218 Mar, [facility] [id number] [place] [address] 55669- 6026 Mar, Lumbago with sciatica, left side M54.42 [facility] [address] [place] [address] Mar, [facility] [id number] [place] [address] 41415- 9898 Mar, Anxiety F41.9 [facility] [id number] [place] [address] 90660- 2024 February, [facility] [id number] [place] [address] 22482- 2409 February, Unspecified mood [affective] disorder F39 [facility] [id number] [place] [address] 00481- 9018 February, [facility] [id number] [place] [address] 66571- 1924 February, [facility] [id number] [place] [address] 26423 -9782 February, Hordeolum externum of right upper eyelid H00.011 and Paronychia of finger of right hand L03.011 [facility] [id number] [place] [address] 39373- 5161 February, [place] [id number] [place] [address] 66515- 3829 February, Primary insomnia F51.01 ; Atrial fibrillation, unspecified type I48.91 ; Unsteady gait R26.81 ; General weakness R53.1 ; Chronic fatigue R53.82 ; Hypokalemia E87.6 and Other chronic pain G89.29 [facility] [address] [place] [address] 82351- 2118 February, [facility] [id number] [place] [address] 95385- 2508 Jan, Lumbago with sciatica, right side M54.41 [facility] [id number] [place] [address] 45783- 7675 Jan, Anxiety F41.9 ; Chronic pain syndrome G89.4 ; Folliculitis L73.9 and Fibromyalgia M79.7 [place] [id number] [place] [address] 48226- 5682 Jan, Lumbago with sciatica, right side M54.41 [facility] [id number] [place] [address] 36344- 2698 Dec, [place] [address] 51761- 0738 Nov, Lumbago with sciatica, right side M54.41 [place] [address] 21490- 5664 Nov, [place] [address] 78305- 6747 Nov, Unspecified mood [affective] disorder F39 ; Hypokalemia E87.6 and Anemia, unspecified type D64.9 [place] [address] 46527- 9521 Nov, [place] [address] 32687- 0886 Oct, Lumbago with sciatica, right side M54.41 [facility] [place] [id number] [place] [address] 95312 -6608 Aug, Congestive heart failure, unspecified congestive heart failure chronicity, unspecified congestive heart failure type I50.9 and Peripheral edema R60.9 [place] [id number] [place] [address] 38249- 5778 17 Aug, 2017 Polysubstance (excluding opioids) dependence F19.20 and Lumbago with sciatica, left side M54.42 [place] [id number] [place] [address] 57464- 2509 17 Aug, 2017 [facility] [id number] [place] [address] 88751 -6049 14 Aug, 2017 Infection of right eye H44.001 [facility] [address] [place] [address] 88759- 6326 14 Aug, 2017 Congestive heart failure, unspecified congestive heart failure chronicity, unspecified congestive heart failure type I50.9 and Other chronic pain G89.29 [place] [address] [place] [address] 53687- 3336 Aug, Lumbago with sciatica, right side M54.41 [place] [id number] [place] [address] 04897- 0614 Aug, Lumbago with sciatica, right side M54.41 [place] [address] 60171- 5998 Aug, [place] [id number] [place] [address] 13762- 6485 Jul, [place] [address] 03950- 0556 Jul, COPD (chronic obstructive pulmonary disease) with acute bronchitis J44.0 ; Atrial fibrillation, unspecified type I48.91 ; Polysubstance (excluding opioids) dependence F19.20 ; Congestive heart failure, unspecified congestive heart failure chronicity, unspecified congestive heart failure type I50.9 and Lumbago with sciatica, right side M54.41 [facility] [address] [place] [id number] [place] [address] [phone] Jul, [facility] [id number] [place] [address] 77604- 4099 Jul, Seizure disorder G40.909 [facility] [id number] [place] [address] 00171- 1749 Jul, Lumbago with sciatica, right side M54.41 [facility] [id number] [place] [address] 50770- 6864 Jul, [facility] [id number] [place] [address] 91158- 8759 Jun, Congestive heart failure, unspecified congestive heart failure chronicity, unspecified congestive heart failure type I50.9 ; Lumbago with sciatica, right side M54.41 and Other chronic pain G89.29 [place] [id number] [place] [address] 60902- 2167 Jun, [place] [id number] [place] [address] 66303- 6343 Jun, [place] [id number] [place] [address] 32325- 4738 May, Lumbago with sciatica, left side M54.42 [place] [address] 09484- 2784 May, [facility] [place] [id number] [place] [address] 32102 -0993 May, Unspecified fall, initial encounter W19.XXXA [place] [id number] [place] [address] 07512- 4649 May, Lumbago with sciatica, right side M54.41 [place] [id number] [place] [address] 07594- 8975 May, [place] [id number] [place] [address] 72053- 9086 May, Bloating R14.0 and Right hip pain M25.551 [place] [id number] [place] [address] 97981- 0689 Apr, [place] [id number] [place] [address] 50692- 2657 Apr, Lumbago with sciatica, left side M54.42 [place] [id number] [place] [address] 24972- 3497 Mar, [facility] [id number] [place] [address] 92668 -7511 Mar, Lumbago with sciatica, right side M54.41 [facility] [place] [address] 67963 -8286 Mar, Abdominal distension R14.0 [place] [address] 30673- 6954 Mar, Periumbilical abdominal pain R10.33 and Diarrhea, unspecified type R19.7 [facility] IN [place] [address] 79533 -6535 February, Seasonal allergic rhinitis, unspecified allergic rhinitis trigger J30.2 ; Acute middle ear effusion, bilateral H65.193 and Lumbago with sciatica, right side M54.41 [place] [address] 05608- 4996 February, Routine gynecological examination Z01.419 [place] [address] 76860- 2722 Jan, [place] [address] 59620- 0021 Jan, Atrial fibrillation, unspecified type I48.91 [facility] [place] [address] 60098 -2459 Jan, Lumbago with sciatica, right side M54.41 and Wound, open, toe, initial encounter S91.109A [place] [address] [id number] Jan, [facility] [place] [address] 00164 -5533 Jan, Acute bilateral low back pain without sciatica M54.5 [place] [address] 73340- 1841 Dec, Congestive heart failure, unspecified congestive heart failure chronicity, unspecified congestive heart failure type I50.9 [place] [address] 95937- 8588 Dec, [facility] [address] [address]- 4100 Dec, Thrush, oral B37.0 and Lumbago with sciatica, right side M54.41 [facility] [id number] [place] [address] 78902- 8637 Dec, [facility] [id number] [place] [address] 45830- 3444 Nov, [facility] [id number] [place] [address] 04202- 6862 Nov, [facility] [address] 17312- 3183 Oct, Polysubstance (excluding opioids) dependence F19.20 ; Other chronic pain G89.29 and Lumbago with sciatica, right side M54.41 [facility] [id number] [place] [address] 20975- 5454 Oct, [facility] [id number] [place] [address] 18425- 8979 Aug, Lumbago with sciatica, right side M54.41 ; Other chronic pain G89.29 and Anxiety F41.9 [facility] [address] [address]- 4891 Aug, [facility] [id number] [place] [address] 35113- 9670 Aug, [facility] [id number] [place] [address] 22051- 3198 Aug, [facility] [id number] [place] [address] 35508- 6119 Aug, [facility] [address] [place] [address] 98877- 5628 Aug, [facility] [id number] [place] [address] 96875- 3157 Aug, [facility] [address] [place] [address] 86030- 2801 Jul, Unspecified mood [affective] disorder F39 and Seizure disorder G40.909 [facility] [id number] [place] [address] 67834- 4183 Jul, [facility] [id number] [place] [address] 13969- 3343 Jul, [facility] [id number] [place] [address] 91173- 0429 Jul, Unspecified mood [affective] disorder F39 and Seizure disorder G40.909 [facility] [id number] [place] [address] 80637- 3404 Jul, Polysubstance (excluding opioids) dependence F19.20 ; COPD ( chronic obstructive pulmonary disease) with acute bronchitis J44.0 ; Congestive heart failure, unspecified congestive heart failure chronicity, unspecified congestive heart failure type I50.9 ; Radiculopathy of lumbosacral region M54.17 and Radiculopathy, thoracic region M54.14 [place] [id number] [place] [address] 28975- 9489 Jun, Lumbago M54.5 [facility] [id number] [place] [address] 69225- 7025 May, [facility] [id number] [place] [address] 55189- 5596 May, [facility] [id number] [place] [address] 47541- 0920 May, [facility] [id number] [place] [address] 86795- 4240 Apr, COPD (chronic obstructive pulmonary disease) with acute bronchitis J44.0 [facility] [id number] [place] [address] 73347- 8459 Apr, Major depressive disorder, recurrent episode, severe F33.2 and Polysubstance (excluding opioids) dependence F19.20 [facility] [id number] [place] [address] 75401- 7674 Mar, Major depressive disorder, recurrent episode, severe F33.2 and Polysubstance (excluding opioids) dependence F19.20 [facility] [id number] [place] [address] 62636- 5278 Mar, Major depressive disorder, recurrent episode, severe F33.2 and Polysubstance (excluding opioids) dependence F19.20 [facility] [id number] [place] [address] 69919- 6351 Mar, Major depressive disorder, recurrent episode, severe F33.2 and Polysubstance (excluding opioids) dependence F19.20 [facility] [id number] [place] [address] 02803- 4499 February, Major depressive disorder, recurrent episode, severe F33.2 and Polysubstance (excluding opioids) dependence F19.20 [facility] [id number] [place] [address] 05982- 8864 February, [facility] [address] 38975- 0974 February, COPD (chronic obstructive pulmonary disease) with acute bronchitis J44.0 [facility] [id number] [place] [address] 53609 -7076 February, Sore throat J02.9 and Bronchitis J40 [facility] [id number] [place] [address] 29776- 7439 Jan, COPD (chronic obstructive pulmonary disease) with acute bronchitis J44.0 [facility] [id number] [place] [address] 29285- 7399 Jan, COPD (chronic obstructive pulmonary disease) with acute bronchitis J44.0 [facility] [id number] [place] [address] 81694- 8277 Jan, [facility] [id number] [place] [address] 19190- 4406 Dec, Gastritis K29.70 ; Constipation K59.00 and Lumbago M54.5 [facility] [address] 34492- 2752 Dec, COPD (chronic obstructive pulmonary disease) with acute bronchitis J44.0 [place] [address] 41641- 7542 18 Nov, 2015 Major depressive disorder, recurrent episode, severe F33.2 and Polysubstance (excluding opioids) dependence F19.20 [facility] [address] 11473 -8491 Oct, Oral thrush B37.0 and Drug abuse F19.[address] 18372- 0130 Oct, [address] 56072- 7535 Sep, COPD (chronic obstructive pulmonary disease) with acute bronchitis J44.0 ; Esophagitis, reflux K21.0 ; Seizure disorder G40.909 ; Primary insomnia F51.01 ; Edema, due to unspecified malnutrition type, unspecified type R60.9 ; Arthritis M19.90 and Thrush B37.0 [place] [id number] [place] [address] 57545- 6962 Aug, [place] [address] 88068- 5551 Aug, [place] [address] 25672- 0324 Aug, [place] [address] 59946- 0003 Jul, [place] [address] 63928- 4464 Jun, [id number] [place] [address] 72583- 1959 Jun, Counseling on substance use and abuse V65.42 and Obstructive chronic bronchitis, with (acute) exacerbation 491.21 [facility] [address] [place] [id number] [place] [address] 85838- 1854 May, [facility] [address] 58334- 2433 Apr, [facility] [address] 45805- 4577 Apr, Abdominal pain 789.00 and Back pain 724.5 [place] [address] 97321- 6212 Mar, Back pain 724.5 and Illicit drug use 305.[address] 35681- 3963 February, Onychomycosis 110.1 [place] [address] 62430- 8102 February, Breast cancer screening V76.10 [place] [address] [place] [id number] [place] [address] 30036- 7032 February, [place] [address] [place] [id number] [place] [address] 31336- 8571 February, [place] [address] [place] [id number] [place] [address] 80651- 0050 February, Cough 786.2 ; Obstructive chronic bronchitis, with (acute) exacerbation 491.21 ; Vomiting 787.03 ; 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 and Gastritis 535.50 [place] [address] [place] [id number] [place] [address] 69573- 9839 Jan, [place] [address] [place] [id number] [place] [address] 18651- 4723 Jan, [facility] [address] 68368- 0386 24 Dec, 2014 [facility] [place] [facility] [address] [id number] [place] [address]- 1398 20 Dec, 2014 [facility] [place] [facility] [address] [id number] [place] [address]- 4315 20 Dec, 2014 [facility] [place] [facility] [address] [id number] [place] [address]- 3588 13 Dec, 2014 [facility] [place] [facility] [address] [id number] [place] [address]- 8879 13 Dec, 2014 [facility] [place] [facility] [address] [id number] [place] [address]- 2636 12 Dec, 2014 [facility] [place] [facility] [address] [id number] [place] [address]- 5751 12 Dec, 2014 [facility] [place] [facility] [address] [id number] [place] [address]- 4987 Dec, [facility] [place] [facility] [address] [id number] [place] [address]- 9469 Dec, [facility] [place] [facility] [address] [id number] [place] [address]- 6599 Sep, [facility] [place] [facility] [address] [id number] [place] [address]- 2921 Sep, [facility] [place] [facility] [address] [id number] [place] [address]- 7764 Sep, [facility] [place] [facility] [address] [id number] [place] [address]- 4729 Sep, [facility] [place] [facility] [address] [id number] [place] [address]- 8422 Sep, [facility] [place] [facility] [address] [id number] [place] [address]- 8223 Sep, [facility] [place] [facility] [address] [id number] [place] [address]- 8239 Sep, [facility] [place] [facility] [address] [id number] [place] [address]- 8102 Sep, [facility] [place] [facility] [address] [id number] [place] [address]- 4211 Sep, [facility] [place] [facility] [address] [id number] [place] [address]- 9059 Sep, [facility] [place] [facility] [address] [id number] [place] [address]- 2541 Aug, [facility] [place] [facility] [address] [id number] [place] [address]- 1669 Aug, [facility] [place] [facility] [address] [id number] [place] [address]- 3558 Aug, [facility] [place] [facility] [address] [id number] [place] [address]- 9345 Aug, [facility] [place] [facility] [address] [id number] [place] [address]- 5568 Jul, [facility] [place] [facility] [address] [id number] [place] [address]- 0615 Jul, [facility] [place] [facility] [address] [id number] [place] [address]- 5638 Jun, [facility] [place] [facility] [address] [id number] [place] [address] Jun, [facility] [place] [facility] [address] [id number] [place] [address] May, [facility] [place] [facility] [address] [id number] [place] [address] May, [facility] [place] [facility] [address] [id number] [place] [address] May, [facility] [place] [facility] [address] [id number] [place] [address] May, [facility] [place] [facility] [address] [id number] [place] [address] May, [facility] [place] [facility] [address] [id number] [place] [address] May, [facility] [place] [facility] [address] [id number] [place] [address] Apr, [facility] [place] [facility] [address] [id number] [place] [address] Apr, [facility] [place] [facility] [address] [id number] [place] [address] Apr, [facility] [place] [facility] [address] [id number] [place] [address] Apr, [facility] [place] [facility] [address] [id number] [place] [address] February, [facility] [place] [facility] [address] [id number] [place] [address] February, [facility] [place] [facility] [address] [id number] [place] [address] Oct, [facility] [place] [facility] [address] [id number] [place] [address] Oct, [facility] [place] [facility] [address] [id number] [place] [address] Oct, [facility] [place] [facility] [address] [id number] [place] [address] Oct, [facility] [place] [facility] [address] [id number] [address] Sep, [facility] [place] [facility] [address] [id number] [place] [address] Sep, [facility] [place] [facility] [address] [id number] [place] [address] Sep, [facility] [place] [facility] [address] [address] [id number] [place] [address] Sep, [facility] [place] [facility] [address] [id number] [address] Aug, [facility] [place] [facility] [address] [id number] [place] [address] Aug, [facility] [place] [facility] [address] [id number] [address] Aug, [facility] [place] [facility] [address] [id number] [place] [address] Aug, [facility] [place] [facility] [address] [id number] [place] [address] Jul, [facility] [place] [facility] [address] [id number] [place] [address] Jul, [facility] [place] [facility] [address] [id number] [place] [address] Jul, [facility] [place] [facility] [address] [id number] [address] Jul, [facility] [place] [facility] [address] [id number] [place] [address] Jul, [facility] [place] [facility] [address] [id number] [place] [address] Jul, [facility] [place] [facility] [address] [facility] [id number] [address] Jul, [facility] [place] [facility] [address] [id number] [address] Jul, [facility] [place] [facility] [address] [id number] [place] [address] Jul, [facility] [place] [facility] [address] [id number] [address] Jul, [facility] [place] [facility] [address] [id number] [address] Jun, [facility] [place] [facility] [address] [id number] [address] May, [facility] [place] [facility] [address] [id number] [address] Apr, [facility] [address] [id number] [address] Apr, [facility] [address] [id number] [address] Apr, [facility] [id number] [address] Mar, [facility] [id number] [address] Mar, [facility] [id number] [address] Mar, [facility] [id number] [address] Mar, [facility] [id number] [address] Mar, [facility] [address] [id number] [address] Sep, [facility] [id number] [address] February, [facility] [address] [id number] [address] Jan, IMMUNIZATIONS No Known Immunizations SOCIAL HISTORY [...]
--- OUTSIDE RECORDS SUMMARY | 2018-07-13 15:08 | XMS REPORT ---
Author Author FRANCHESKA HEADLEY Organization [facility] Address [address] [place] [address] Care Team Providers Care Latex Caster Name Role Phone FRANCHESKA HEADLEY Unavailable PROBLEMS Type Condition ICD9-CM Code [id number] Code Onset Dates Condition Status SNOMED Code Problem Other chronic pain G89.29 Active 21433896 Problem Lumbago with sciatica, left side M54.42 Active 776230691 Problem Seasonal allergic rhinitis, unspecified allergic rhinitis trigger J30.2 Active 399564509 Problem Methamphetamine abuse F15.10 Active 875673017 Problem Primary insomnia F51.01 Active 187050398 Problem Unsteady gait R26.81 Active 98150615 Problem Seizure disorder G40.909 Active 412757769 Problem Fibromyalgia M79.7 Active 210976866 Problem Infection of right eye H44.001 Active 18196309116517649 Problem Chronic fatigue R53.82 Active 53385655 Problem Chronic pain syndrome G89.4 Active 422822199 Problem Esophagitis, reflux K21.0 Active 324607438 Problem COPD (chronic obstructive pulmonary disease) with acute bronchitis J44.0 Active 098022277815571 Problem Edema, due to unspecified malnutrition type, unspecified type R60.9 Active 273459418 Problem Atrial fibrillation, unspecified type I48.91 Active 97185318 Problem Congestive heart failure, unspecified congestive heart failure chronicity, unspecified congestive heart failure type I50.9 Active 99100257 Problem Unspecified mood [affective] disorder F39 Active 279201127 Problem Major depressive disorder, recurrent episode, severe F33.2 Active 212145927884 Problem Lumbago with sciatica, right side M54.41 Active 304275305 Problem Polysubstance (excluding opioids) dependence F19.20 Active 12117969 Problem Anxiety F41.9 Active 59934153 ALLERGIES No Information ENCOUNTERS Encounter Location Date Diagnosis [facility] [address] [facility] [id number] [address] May, [facility] [address] [place] [id number] [place] [address] 58067- 5978 May, [facility] [id number] [place] [address] 54113 -5354 May, Methamphetamine abuse F15.10 [facility] [id number] [place] [address] 61109- 4419 May, [facility] [id number] [place] [address] 47771- 9848 Apr, [facility] [id number] [place] [address] 04140- 6520 Apr, Lumbago with sciatica, right side M54.41 ; Chronic pain syndrome G89.4 and Primary insomnia F51.01 [facility] [id number] [place] [address] 31391 -5682 Apr, Acute right ankle pain M25.571 [facility] [id number] [place] [address] 16588 -5796 Apr, [facility] [id number] [place] [address] 97725 -2792 Apr, Seasonal allergic rhinitis, unspecified trigger J30.2 and Acute right ankle pain M25.571 [place] [id number] [place] [address] 32511- 4659 Mar, Primary insomnia F51.01 and Anxiety F41.9 [facility] [id number] [place] [address] 08318- 2976 Mar, [facility] [id number] [place] [address] 87524- 8184 Mar, [facility] [id number] [place] [address] 72139- 3810 Mar, Lumbago with sciatica, left side M54.42 [facility] [address] [place] [address] 5108 Mar, [facility] [id number] [place] [address] 58838- 5808 Mar, Anxiety F41.9 [facility] [id number] [place] [address] 83644- 6152 February, [facility] [id number] [place] [address] 71766- 4767 February, Unspecified mood [affective] disorder F39 [facility] [id number] [place] [address] 32043- 8583 February, [facility] [id number] [place] [address] 74965- 1166 February, [facility] [id number] [place] [address] 69598 -9020 February, Hordeolum externum of right upper eyelid H00.011 and Paronychia of finger of right hand L03.011 [facility] [id number] [place] [address] 16024- 3394 February, [place] [id number] [place] [address] 15053- 8922 February, Primary insomnia F51.01 ; Atrial fibrillation, unspecified type I48.91 ; Unsteady gait R26.81 ; General weakness R53.1 ; Chronic fatigue R53.82 ; Hypokalemia E87.6 and Other chronic pain G89.29 [facility] [id number] [place] [address] 31849- 0845 February, [facility] [id number] [place] [address] 41252- 5842 Jan, Lumbago with sciatica, right side M54.41 [facility] [id number] [place] [address] 16306- 2806 Jan, Anxiety F41.9 ; Chronic pain syndrome G89.4 ; Folliculitis L73.9 and Fibromyalgia M79.7 [place] [id number] [place] [address] 32653- 1356 Jan, Lumbago with sciatica, right side M54.41 [facility] [id number] [place] [address] 79754- 4212 Dec, [place] [address] 16006- 2812 Nov, Lumbago with sciatica, right side M54.41 [place] [address] 80028- 5925 Nov, [place] [address] 26443- 8301 Nov, Unspecified mood [affective] disorder F39 ; Hypokalemia E87.6 and Anemia, unspecified type D64.9 [place] [address] 26359- 1869 Nov, [place] [address] 45831- 6901 Oct, Lumbago with sciatica, right side M54.41 [facility] [place] [id number] [place] [address] 61918 -8305 Aug, Congestive heart failure, unspecified congestive heart failure chronicity, unspecified congestive heart failure type I50.9 and Peripheral edema R60.9 [place] [id number] [place] [address] 44145- 2855 17 Aug, 2017 Polysubstance (excluding opioids) dependence F19.20 and Lumbago with sciatica, left side M54.42 [place] [id number] [place] [address] 01696- 1148 17 Aug, 2017 [facility] [id number] [place] [address] 54015 -6418 14 Aug, 2017 Infection of right eye H44.001 [facility] [id number] [place] [address] 39456- 1017 14 Aug, 2017 Congestive heart failure, unspecified congestive heart failure chronicity, unspecified congestive heart failure type I50.9 and Other chronic pain G89.29 [place] [id number] [place] [address] 66853- 1128 Aug, Lumbago with sciatica, right side M54.41 [place] [id number] [place] [address] 53900- 0434 Aug, Lumbago with sciatica, right side M54.41 [place] [address] 84552- 2047 Aug, [place] [id number] [place] [address] 11831- 0172 Jul, [place] [address] 33704- 1155 Jul, COPD (chronic obstructive pulmonary disease) with acute bronchitis J44.0 ; Atrial fibrillation, unspecified type I48.91 ; Polysubstance (excluding opioids) dependence F19.20 ; Congestive heart failure, unspecified congestive heart failure chronicity, unspecified congestive heart failure type I50.9 and Lumbago with sciatica, right side M54.41 [facility] [id number] [place] [address] [id number] Jul, [facility] [id number] [place] [address] 40689- 6765 Jul, Seizure disorder G40.909 [facility] [id number] [place] [address] 56031- 1142 Jul, Lumbago with sciatica, right side M54.41 [facility] [id number] [place] [address] 25107- 3469 Jul, [facility] [id number] [place] [address] 13291- 4531 Jun, Congestive heart failure, unspecified congestive heart failure chronicity, unspecified congestive heart failure type I50.9 ; Lumbago with sciatica, right side M54.41 and Other chronic pain G89.29 [place] [id number] [place] [address] 06294- 8230 Jun, [place] [id number] [place] [address] 38603- 6269 Jun, [place] [id number] [place] [address] 71809- 4209 May, Lumbago with sciatica, left side M54.42 [place] [address] 50761- 9819 May, [facility] [place] [id number] [place] [address] 27929 -2308 May, Unspecified fall, initial encounter W19.XXXA [place] [id number] [place] [address] 68469- 1146 May, Lumbago with sciatica, right side M54.41 [place] [id number] [place] [address] 06042- 2280 May, [place] [id number] [place] [address] 04402- 6902 May, Bloating R14.0 and Right hip pain M25.551 [place] [id number] [place] [address] 19880- 6351 Apr, [place] [id number] [place] [address] 94944- 8840 Apr, Lumbago with sciatica, left side M54.42 [place] [id number] [place] [address] 00639- 4968 Mar, [facility] [id number] [place] [address] 86482 -9619 Mar, Lumbago with sciatica, right side M54.41 [facility] [place] [address] 00721 -2682 Mar, Abdominal distension R14.0 [place] [address] 19768- 4216 Mar, Periumbilical abdominal pain R10.33 and Diarrhea, unspecified type R19.7 [facility] [place] [address] 41578 -3078 February, Seasonal allergic rhinitis, unspecified allergic rhinitis trigger J30.2 ; Acute middle ear effusion, bilateral H65.193 and Lumbago with sciatica, right side M54.41 [place] [address] 77641- 6348 February, Routine gynecological examination Z01.419 [place] [address] 85517- 1977 Jan, [place] [address] 53207- 8422 Jan, Atrial fibrillation, unspecified type I48.91 [facility] [place] [address] 77170 -9191 Jan, Lumbago with sciatica, right side M54.41 and Wound, open, toe, initial encounter S91.109A [place] [address] [id number] Jan, [facility] [place] [address] 73806 -8082 Jan, Acute bilateral low back pain without sciatica M54.5 [place] [address] 06334- 4263 Dec, Congestive heart failure, unspecified congestive heart failure chronicity, unspecified congestive heart failure type I50.9 [place] [address] 37073- 1902 Dec, [facility] [address] [address]- 1762 Dec, Thrush, oral B37.0 and Lumbago with sciatica, right side M54.41 [facility] [id number] [place] [address] 38202- 0724 Dec, [facility] [id number] [place] [address] 98944- 1400 Nov, [facility] [id number] [place] [address] 97510- 6686 Nov, [facility] [address] 53067- 8576 Oct, Polysubstance (excluding opioids) dependence F19.20 ; Other chronic pain G89.29 and Lumbago with sciatica, right side M54.41 [facility] [id number] [place] [address] 07923- 0354 Oct, [facility] [id number] [place] [address] 99042- 1571 Aug, Lumbago with sciatica, right side M54.41 ; Other chronic pain G89.29 and Anxiety F41.9 [facility] [address] [address]- 5848 Aug, [facility] [id number] [place] [address] 52093- 6554 Aug, [facility] [id number] [place] [address] 01855- 5365 Aug, [facility] [id number] [place] [address] 04665- 6103 Aug, [facility] [id number] [place] [address] 55650- 0863 Aug, [facility] [id number] [place] [address] 04906- 5129 Aug, [facility] [id number] [place] [address] 29704- 8471 Jul, Unspecified mood [affective] disorder F39 and Seizure disorder G40.909 [facility] [id number] [place] [address] 89798- 5952 Jul, [facility] [id number] [place] [address] 10960- 4874 Jul, [facility] [id number] [place] [address] 63115- 4571 Jul, Unspecified mood [affective] disorder F39 and Seizure disorder G40.909 [facility] [id number] [place] [address] 11080- 5994 Jul, Polysubstance (excluding opioids) dependence F19.20 ; COPD ( chronic obstructive pulmonary disease) with acute bronchitis J44.0 ; Congestive heart failure, unspecified congestive heart failure chronicity, unspecified congestive heart failure type I50.9 ; Radiculopathy of lumbosacral region M54.17 and Radiculopathy, thoracic region M54.14 [place] [id number] [place] [address] 44940- 0924 Jun, Lumbago M54.5 [facility] [id number] [place] [address] 52222- 6609 May, [facility] [id number] [place] [address] 61736- 1566 May, [facility] [id number] [place] [address] 33107- 2916 May, [facility] [id number] [place] [address] 36086- 7697 Apr, COPD (chronic obstructive pulmonary disease) with acute bronchitis J44.0 [facility] [id number] [place] [address] 28390- 6017 Apr, Major depressive disorder, recurrent episode, severe F33.2 and Polysubstance (excluding opioids) dependence F19.20 [facility] [id number] [place] [address] 76796- 7813 Mar, Major depressive disorder, recurrent episode, severe F33.2 and Polysubstance (excluding opioids) dependence F19.20 [facility] [id number] [place] [address] 00532- 6432 Mar, Major depressive disorder, recurrent episode, severe F33.2 and Polysubstance (excluding opioids) dependence F19.20 [facility] [id number] [place] [address] 44392- 7178 Mar, Major depressive disorder, recurrent episode, severe F33.2 and Polysubstance (excluding opioids) dependence F19.20 [facility] [id number] [place] [address] 84838- 7362 February, Major depressive disorder, recurrent episode, severe F33.2 and Polysubstance (excluding opioids) dependence F19.20 [facility] [id number] [place] [address] 07784- 8306 February, [facility] [address] 74390- 3478 February, COPD (chronic obstructive pulmonary disease) with acute bronchitis J44.0 [facility] [id number] [place] [address] 79172 -8265 February, Sore throat J02.9 and Bronchitis J40 [facility] [id number] [place] [address] 13474- 0741 Jan, COPD (chronic obstructive pulmonary disease) with acute bronchitis J44.0 [facility] [id number] [place] [address] 82939- 0367 Jan, COPD (chronic obstructive pulmonary disease) with acute bronchitis J44.0 [facility] [id number] [place] [address] 30128- 6773 Jan, [facility] [id number] [place] [address] 51390- 9909 Dec, Gastritis K29.70 ; Constipation K59.00 and Lumbago M54.5 [facility] [address] 69187- 1411 Dec, COPD (chronic obstructive pulmonary disease) with acute bronchitis J44.0 [place] [address] 79669- 9772 18 Nov, 2015 Major depressive disorder, recurrent episode, severe F33.2 and Polysubstance (excluding opioids) dependence F19.20 [facility] [address] 43068 -8614 Oct, Oral thrush B37.0 and Drug abuse F19.[address] 11047- 9150 Oct, [address] 93138- 1435 Sep, COPD (chronic obstructive pulmonary disease) with acute bronchitis J44.0 ; Esophagitis, reflux K21.0 ; Seizure disorder G40.909 ; Primary insomnia F51.01 ; Edema, due to unspecified malnutrition type, unspecified type R60.9 ; Arthritis M19.90 and Thrush B37.0 [place] [id number] [place] [address] 99857- 5431 Aug, [place] [address] 67608- 7757 Aug, [place] [address] 02300- 8416 Aug, [place] [address] 31264- 0453 Jul, [place] [address] 44702- 8354 Jun, [id number] [place] [address] 53544- 3812 Jun, Counseling on substance use and abuse V65.42 and Obstructive chronic bronchitis, with (acute) exacerbation 491.21 [facility] [id number] [place] [address] 26005- 8400 May, [facility] [address] 92103- 0357 Apr, [facility] [address] 07549- 9626 Apr, Abdominal pain 789.00 and Back pain 724.5 [place] [address] 12808- 2821 Mar, Back pain 724.5 and Illicit drug use 305.[address] 87727- 6879 February, Onychomycosis 110.1 [place] [address] 37454- 8944 February, Breast cancer screening V76.10 [place] [address] [id number] [place] [address] 16590- 1814 February, [place] [address] [place] [id number] [place] [address] 10495- 7629 February, [place] [address] [id number] [place] [address] 36305- 2931 February, Cough 786.2 ; Obstructive chronic bronchitis, with (acute) exacerbation 491.21 ; Vomiting 787.03 ; 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 and Gastritis 535.50 [place] [address] [place] [id number] [place] [address] 13063- 1071 Jan, [place] [address] [place] [id number] [place] [address] 05357- 9574 Jan, [facility] [address] 38491- 2046 24 Dec, 2014 [facility] [place] [facility] [address] [id number] [place] [address]- 7642 20 Dec, 2014 [facility] [place] [facility] [address] [id number] [place] [address]- 8590 20 Dec, 2014 [facility] [place] [facility] [address] [id number] [place] [address]- 2584 13 Dec, 2014 [facility] [place] [facility] [address] [id number] [place] [address]- 5182 13 Dec, 2014 [facility] [place] [facility] [address] [id number] [place] [address]- 2116 12 Dec, 2014 [facility] [place] [facility] [address] [id number] [place] [address]- 1329 12 Dec, 2014 [facility] [place] [facility] [address] [id number] [place] [address]- 4558 Dec, [facility] [place] [facility] [address] [id number] [place] [address]- 6125 Dec, [facility] [place] [facility] [address] [id number] [place] [address]- 7321 Sep, [facility] [place] [facility] [address] [id number] [place] [address]- 4822 Sep, [facility] [place] [facility] [address] [id number] [place] [address]- 1951 Sep, [facility] [place] [facility] [address] [id number] [place] [address]- 6835 Sep, [facility] [place] [facility] [address] [id number] [place] [address]- 4075 Sep, [facility] [place] [facility] [address] [id number] [place] [address]- 0090 Sep, [facility] [place] [facility] [address] [id number] [place] [address]- 9585 Sep, [facility] [place] [facility] [address] [id number] [place] [address]- 2373 Sep, [facility] [place] [facility] [address] [id number] [place] [address]- 7503 Sep, [facility] [place] [facility] [address] [id number] [place] [address]- 0339 Sep, [facility] [place] [facility] [address] [id number] [place] [address]- 3741 Aug, [facility] [place] [facility] [address] [id number] [place] [address]- 7447 Aug, [facility] [place] [facility] [address] [id number] [place] [address]- 7383 Aug, [facility] [place] [facility] [address] [id number] [place] [address]- 4366 Aug, [facility] [place] [facility] [address] [id number] [place] [address]- 3888 Jul, [facility] [place] [facility] [address] [id number] [place] [address] Jul, [facility] [place] [facility] [address] [id number] [place] [address] Jun, [facility] [place] [facility] [address] [id number] [place] [address] Jun, [facility] [place] [facility] [address] [id number] [place] [address] May, [facility] [place] [facility] [address] [id number] [place] [address] May, [facility] [place] [facility] [address] [id number] [place] [address] May, [facility] [place] [facility] [address] [id number] [place] [address] May, [facility] [place] [facility] [address] [id number] [place] [address] May, [facility] [place] [facility] [address] [id number] [place] [address] May, [facility] [place] [facility] [address] [id number] [place] [address] Apr, [facility] [place] [facility] [address] [id number] [place] [address] Apr, [facility] [place] [facility] [address] [id number] [place] [address] Apr, [facility] [place] [facility] [address] [id number] [place] [address] Apr, [facility] [place] [facility] [address] [id number] [place] [address] February, [facility] [place] [facility] [address] [id number] [place] [address] February, [facility] [place] [facility] [address] [id number] [place] [address] Oct, [facility] [place] [facility] [address] [id number] [place] [address] Oct, [facility] [place] [facility] [address] [id number] [place] [address] Oct, [facility] [place] [facility] [address] [id number] [place] [address] Oct, [facility] [place] [facility] [address] [id number] [address] Sep, [facility] [place] [facility] [address] [id number] [place] [address] Sep, [facility] [place] [facility] [address] [id number] [place] [address] Sep, [facility] [place] [facility] [address] [id number] [place] [address] Sep, [facility] [place] [facility] [address] [id number] [place] [address] Aug, [facility] [place] [facility] [address] [id number] [place] [address] Aug, [facility] [place] [facility] [address] [id number] [place] [address] Aug, [facility] [place] [facility] [address] [id number] [place] [address] Aug, [facility] [place] [facility] [address] [id number] [place] [address] Jul, [facility] [place] [facility] [address] [id number] [place] [address] Jul, [facility] [place] [facility] [address] [id number] [place] [address] Jul, [facility] [place] [facility] [address] [id number] [place] [address] Jul, [facility] [place] [facility] [address] [id number] [place] [address] Jul, [facility] [place] [facility] [address] [id number] [address] Jul, [facility] [place] [facility] [address] [facility] [id number] [address] Jul, [facility] [place] [facility] [address] [id number] [address] Jul, [facility] [place] [facility] [address] [id number] [address] Jul, [facility] [place] [facility] [address] [id number] [address] Jul, [facility] [place] [facility] [address] [id number] [address] Jun, [facility] [place] [facility] [address] [id number] [address] May, [facility] [place] [facility] [address] [id number] [address] Apr, [facility] [address] [id number] [address] Apr, [facility] [address] [id number] [address] Apr, [facility] [id number] [address] Mar, [facility] [id number] [address] Mar, [facility] [id number] [address] Mar, [facility] [id number] [address] Mar, [facility] [id number] [address] Mar, [facility] [address] [id number] [address] Sep, [facility] [id number] [address] February, [facility] [address] [id number] [address] Jan, IMMUNIZATIONS No Known Immunizations SOCIAL HISTORY Never Assessed REASON FOR VISIT med refill PLAN OF CARE VITAL SIGNS MEDICATIONS Unknown [...] bleeding 2015 Hospitalization History A fib with [facility] 02/06/17 Hospitalization History Altered mental status, lethargy-[facility] 07/10/17 Hospitalization History Chest pain-[facility] 08/05/17 Hospitalization History [facility] 10/2017 Hospitalization History Low potassium, A fib 01/2018 Hospitalization History Head injury 03/2018
--- OUTSIDE RECORDS SUMMARY | 2018-07-13 15:09 | XMS REPORT ---
Author Author FRANCHESKA HEADLEY Organization [facility] Address [address] [place] [address] Care Team Providers Care Home Insurance Agent Name Role Phone FRANCHESKA HEADLEY Unavailable PROBLEMS Type Condition ICD9-CM Code IUL46-QN Code Onset Dates Condition Status SNOMED Code Problem Other chronic pain G89.29 Active 06957570 Problem Lumbago with sciatica, left side M54.42 Active 651125421 Problem Seasonal allergic rhinitis, unspecified allergic rhinitis trigger J30.2 Active 557924128 Problem Methamphetamine abuse F15.10 Active 787803400 Problem Primary insomnia F51.01 Active 121248867 Problem Unsteady gait R26.81 Active 80458592 Problem Seizure disorder G40.909 Active 320362154 Problem Fibromyalgia M79.7 Active 391503459 Problem Infection of right eye H44.001 Active [id number] Problem Chronic fatigue R53.82 Active 30369862 Problem Chronic pain syndrome G89.4 Active 965716485 Problem Esophagitis, reflux K21.0 Active 281210524 Problem COPD (chronic obstructive pulmonary disease) with acute bronchitis J44.0 Active 197160695190294 Problem Edema, due to unspecified malnutrition type, unspecified type R60.9 Active 622413697 Problem Atrial fibrillation, unspecified type I48.91 Active 45904492 Problem Congestive heart failure, unspecified congestive heart failure chronicity, unspecified congestive heart failure type I50.9 Active 90594977 Problem Unspecified mood [affective] disorder F39 Active 521319499 Problem Major depressive disorder, recurrent episode, severe F33.2 Active 795853652622 Problem Lumbago with sciatica, right side M54.41 Active 783888733 Problem Polysubstance (excluding opioids) dependence F19.20 Active 74071540 Problem Anxiety F41.9 Active 24181186 ALLERGIES No Information ENCOUNTERS Encounter Location Date Diagnosis [facility] [address] [facility] [id number] [address] May, [facility] [id number] [place] [address] 41007 -1517 May, Methamphetamine abuse F15.10 [facility] [id number] [place] [address] 32559- 4276 May, [facility] [id number] [place] [address] 45602- 5374 Apr, [facility] [address] 90462- 3311 Apr, Lumbago with sciatica, right side M54.41 ; Chronic pain syndrome G89.4 and Primary insomnia F51.01 [facility] [id number] [place] [address] 24694 -3467 Apr, Acute right ankle pain M25.571 [facility] WALK [facility] [address] 27134 -8126 Apr, [facility] [id number] [place] [address] 19011 -7525 Apr, Seasonal allergic rhinitis, unspecified trigger J30.2 and Acute right ankle pain M25.571 [facility] [id number] [place] [address] 03877- 4304 Mar, Primary insomnia F51.01 and Anxiety F41.9 [facility] [id number] [place] [address] 54449- 1448 Mar, [facility] [id number] [place] [address] 34069- 4350 Mar, [place] [address] 71209- 7062 Mar, Lumbago with sciatica, left side M54.42 [facility] [id number] [place] [address] 84736- 6488 Mar, [facility] [address] [place] [address] 2817 Mar, Anxiety F41.9 [place] [id number] [place] [address] 60707- 6349 February, [facility] [id number] [place] [address] 16513- 6766 February, Unspecified mood [affective] disorder F39 [place] [address] 89133- 9851 February, [place] [id number] [place] [address] 37994- 9146 February, [facility] [id number] [place] [address] 33329 -1899 February, Hordeolum externum of right upper eyelid H00.011 and Paronychia of finger of right hand L03.011 [place] [id number] [place] [address] 18945- 9228 February, [place] [id number] [place] [address] 22900- 5369 February, Primary insomnia F51.01 ; Atrial fibrillation, unspecified type I48.91 ; Unsteady gait R26.81 ; General weakness R53.1 ; Chronic fatigue R53.82 ; Hypokalemia E87.6 and Other chronic pain G89.29 [place] [id number] [place] [address] 51582- 1859 February, [place] [id number] [place] [address] 88476- 9840 Jan, Lumbago with sciatica, right side M54.41 [place] [id number] [place] [address] 10207- 8511 Jan, Anxiety F41.9 ; Chronic pain syndrome G89.4 ; Folliculitis L73.9 and Fibromyalgia M79.7 [place] [id number] [place] [address] 84078- 4461 Jan, Lumbago with sciatica, right side M54.41 [place] [address] 68050- 5880 Dec, [place] [address] 52595- 5745 Nov, Lumbago with sciatica, right side M54.41 [place] [address] 89441- 5519 Nov, [place] [address] 16317- 2889 Nov, Unspecified mood [affective] disorder F39 ; Hypokalemia E87.6 and Anemia, unspecified type D64.9 [place] [address] 99862- 7168 Nov, [place] [address] 75464- 7872 Oct, Lumbago with sciatica, right side M54.41 [facility] [address] 46896 -1107 Aug, Congestive heart failure, unspecified congestive heart failure chronicity, unspecified congestive heart failure type I50.9 and Peripheral edema R60.9 [place] [address] 52684- 6003 17 Aug, 2017 Polysubstance (excluding opioids) dependence F19.20 and Lumbago with sciatica, left side M54.42 [place] [id number] [place] [address] 76468- 2794 Aug, [facility] [address] 06296 -0387 Aug, Infection of right eye H44.001 [place] [id number] [place] [address] 12062- 1080 Aug, Congestive heart failure, unspecified congestive heart failure chronicity, unspecified congestive heart failure type I50.9 and Other chronic pain G89.29 [facility] [id number] [place] [address] 67018- 5396 Aug, Lumbago with sciatica, right side M54.41 [facility] [id number] [place] [address] 41845- 1619 Aug, Lumbago with sciatica, right side M54.41 [facility] [id number] [place] [address] 23822- 0783 Aug, [place] [address] 72010- 2980 Jul, [place] [id number] [place] [address] 63082- 8649 Jul, COPD (chronic obstructive pulmonary disease) with acute bronchitis J44.0 ; Atrial fibrillation, unspecified type I48.91 ; Polysubstance (excluding opioids) dependence F19.20 ; Congestive heart failure, unspecified congestive heart failure chronicity, unspecified congestive heart failure type I50.9 and Lumbago with sciatica, right side M54.41 [facility] [id number] [place] [address] [id number] Jul, [place] [id number] [place] [address] 43138- 3099 Jul, Seizure disorder G40.909 [facility] [id number] [place] [address] 32619- 8517 Jul, Lumbago with sciatica, right side M54.41 [facility] [id number] [place] [address] 53195- 4024 Jul, [facility] [id number] [place] [address] 49230- 0410 Jun, Congestive heart failure, unspecified congestive heart failure chronicity, unspecified congestive heart failure type I50.9 ; Lumbago with sciatica, right side M54.41 and Other chronic pain G89.29 [facility] [address] [id number] [address] 3976 Jun, [place] [id number] [place] [address] 53387- 7229 Jun, [place] [id number] [place] [address] 30642- 9728 May, Lumbago with sciatica, left side M54.42 [place] [id number] [place] [address] 33261- 8535 May, [facility] [id number] [place] [address] 34043 -4982 May, Unspecified fall, initial encounter W19.XXXA [place] [id number] [place] [address] 74939- 4733 May, Lumbago with sciatica, right side M54.41 [place] [id number] [place] [address] 74298- 7244 May, [place] [id number] [place] [address] 04206- 3728 May, Bloating R14.0 and Right hip pain M25.551 [place] [id number] [place] [address] 31881- 5152 Apr, [place] [id number] [place] [address] 77825- 9198 Apr, Lumbago with sciatica, left side M54.42 [place] [id number] [place] [address] 16818- 8471 Mar, [facility] [id number] [place] [address] 95930 -9332 Mar, Lumbago with sciatica, right side M54.41 [facility] [id number] [place] [address] 03384 -8951 Mar, Abdominal distension R14.0 [place] [id number] [place] [address] 07013- 4032 Mar, Periumbilical abdominal pain R10.33 and Diarrhea, unspecified type R19.7 [facility] [place] [id number] [place] [address] 32693 -2495 February, Seasonal allergic rhinitis, unspecified allergic rhinitis trigger J30.2 ; Acute middle ear effusion, bilateral H65.193 and Lumbago with sciatica, right side M54.41 [place] [address] 80512- 3764 February, Routine gynecological examination Z01.419 [place] [address] 00762- 5632 Jan, [place] [address] 10554- 4374 Jan, Atrial fibrillation, unspecified type I48.91 [facility] [place] [id number] [place] [address] 29239 -7070 Jan, Lumbago with sciatica, right side M54.41 and Wound, open, toe, initial encounter S91.109[address] [place] [id number] [place] [address] [id number] Jan, [facility] [id number] [place] [address] 54933 -6529 Jan, Acute bilateral low back pain without sciatica M54.5 [place] [id number] [place] [address] 25823- 6524 Dec, Congestive heart failure, unspecified congestive heart failure chronicity, unspecified congestive heart failure type I50.9 [place] [id number] [place] [address] 43053- 1230 Dec, [place] [address] 38954- 5819 Dec, Thrush, oral B37.0 and Lumbago with sciatica, right side M54.41 [facility] [id number] [place] [address] 63799- 0190 Dec, [facility] [id number] [place] [address] 71199- 6007 Nov, [facility] [address] 87726- 3002 Nov, [facility] [address] 80227- 4572 Oct, Polysubstance (excluding opioids) dependence F19.20 ; Other chronic pain G89.29 and Lumbago with sciatica, right side M54.41 [facility] [address] 53691- 3178 Oct, [facility] [id number] [place] [address] 29196- 8798 Aug, Lumbago with sciatica, right side M54.41 ; Other chronic pain G89.29 and Anxiety F41.9 [facility] [id number] [place] [address] 08126- 0951 Aug, [facility] [id number] [place] [address] 71810- 3111 Aug, [facility] [id number] [place] [address] 29259- 6006 Aug, [facility] [id number] [place] [address] 64278- 1780 Aug, [facility] [id number] [place] [address] 77065- 1984 Aug, [facility] [id number] [place] [address] 88688- 1781 Aug, [facility] [id number] [place] [address] 33316- 5804 Jul, Unspecified mood [affective] disorder F39 and Seizure disorder G40.909 [facility] [address] [place] [address] 28826- 2579 Jul, [facility] [id number] [place] [address] 94328- 3900 Jul, [facility] [id number] [place] [address] 35750- 6242 Jul, Unspecified mood [affective] disorder F39 and Seizure disorder G40.909 [facility] [id number] [place] [address] 53176- 8773 Jul, Polysubstance (excluding opioids) dependence F19.20 ; COPD ( chronic obstructive pulmonary disease) with acute bronchitis J44.0 ; Congestive heart failure, unspecified congestive heart failure chronicity, unspecified congestive heart failure type I50.9 ; Radiculopathy of lumbosacral region M54.17 and Radiculopathy, thoracic region M54.14 [place] [id number] [place] [address] 04787- 8324 Jun, Lumbago M54.5 [place] [id number] [place] [address] 74043- 3408 May, [place] [id number] [place] [address] 64745- 3134 May, [facility] [id number] [place] [address] 99581- 0321 May, [facility] [id number] [place] [address] 06010- 2945 Apr, COPD (chronic obstructive pulmonary disease) with acute bronchitis J44.0 [facility] [id number] [place] [address] 47077- 1540 Apr, Major depressive disorder, recurrent episode, severe F33.2 and Polysubstance (excluding opioids) dependence F19.20 [facility] [id number] [place] [address]- 3222 Mar, Major depressive disorder, recurrent episode, severe F33.2 and Polysubstance (excluding opioids) dependence F19.20 [facility] [id number] [place] [address] 23227- 6123 16 Mar, 2016 Major depressive disorder, recurrent episode, severe F33.2 and Polysubstance (excluding opioids) dependence F19.20 [facility] [address] 36905- 6910 Mar, Major depressive disorder, recurrent episode, severe F33.2 and Polysubstance (excluding opioids) dependence F19.20 [facility] [id number] [place] [address] 99377- 6180 February, Major depressive disorder, recurrent episode, severe F33.2 and Polysubstance (excluding opioids) dependence F19.20 [facility] [address] 00162- 9075 February, [facility] [address] 47076- 9342 February, COPD (chronic obstructive pulmonary disease) with acute bronchitis J44.0 [facility] [id number] [place] [address] 93594 -5338 February, Sore throat J02.9 and Bronchitis J40 [facility] [id number] [place] [address] 35890- 2670 Jan, COPD (chronic obstructive pulmonary disease) with acute bronchitis J44.0 [facility] [id number] [place] [address] 62432- 6337 Jan, COPD (chronic obstructive pulmonary disease) with acute bronchitis J44.0 [facility] [id number] [place] [address] 12042- 1093 Jan, [facility] [address] 37643- 4660 Dec, Gastritis K29.70 ; Constipation K59.00 and Lumbago M54.5 [place] [address] 54829- 7713 Dec, COPD (chronic obstructive pulmonary disease) with acute bronchitis J44.0 [facility] [address] 43554- 6180 18 Nov, 2015 Major depressive disorder, recurrent episode, severe F33.2 and Polysubstance (excluding opioids) dependence F19.20 [facility] [address] 69946 -5985 Oct, Oral thrush B37.0 and Drug abuse F19.10 [place] [address] 59221- 7319 Oct, [address] 25871- 2407 Sep, COPD (chronic obstructive pulmonary disease) with acute bronchitis J44.0 ; Esophagitis, reflux K21.0 ; Seizure disorder G40.909 ; Primary insomnia F51.01 ; Edema, due to unspecified malnutrition type, unspecified type R60.9 ; Arthritis M19.90 and Thrush B37.0 [facility] [id number] [place] [address] 16585- 9917 Aug, [place] [address] 05291- 7740 Aug, [place] [address] 46431- 3410 Aug, [place] [address] 49057- 5825 Jul, [place] [address] 05802- 7409 Jun, [place] [address] 50280- 6020 Jun, Counseling on substance use and abuse V65.42 and Obstructive chronic bronchitis, with (acute) exacerbation 491.21 [facility] [id number] [place] [address] 97796- 9406 May, [facility] [id number] [place] [address] 56984- 1672 Apr, [facility] [id number] [place] [address] 26941- 0182 Apr, Abdominal pain 789.00 and Back pain 724.5 [facility] [id number] [place] [address] 81139- 2583 Mar, Back pain 724.5 and Illicit drug use 305.90 [facility] [id number] [place] [address] 13802- 1431 February, Onychomycosis 110.1 [facility] [address] 35582- 0336 February, Breast cancer screening V76.10 [facility] [id number] [place] [address] 95816- 2595 February, [facility] [id number] [place] [address] 74981- 6131 February, [facility] [id number] [place] [address] 11445- 4641 February, Cough 786.2 ; Obstructive chronic bronchitis, with (acute) exacerbation 491.21 ; Vomiting 787.03 ; 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 and Gastritis 535.50 [facility] [id number] [place] [address] 35266- 8295 Jan, [facility] [id number] [place] [address] 07208- 2916 Jan, [facility] [id number] [place] [address] 53421- 8701 Dec, [facility] [id number] [place] [address] 32497- 3616 20 Dec, 2014 [facility] [place] [facility] [address] [id number] [place] [address]- 7973 20 Dec, 2014 [facility] [place] [facility] [address] [id number] [place] [address]- 6648 13 Dec, 2014 [facility] [place] [facility] [address] [id number] [place] [address]- 8123 13 Dec, 2014 [facility] [place] [facility] [address] [id number] [place] [address]- 1311 12 Dec, 2014 [facility] [place] [facility] [address] [id number] [place] [address]- 7861 Dec, [facility] [place] [facility] [address] [id number] [place] [address]- 6095 Dec, [facility] [place] [facility] [address] [id number] [place] [address]- 8943 Dec, [facility] [place] [facility] [address] [id number] [place] [address]- 8099 Sep, [facility] [place] [facility] [address] [id number] [place] [address]- 8976 Sep, [facility] [place] [facility] [address] [id number] [place] [address]- 2387 Sep, [facility] [place] [facility] [address] [id number] [place] [address]- 5512 Sep, [facility] [place] [facility] [address] [id number] [place] [address]- 5885 Sep, [facility] [place] [facility] [address] [id number] [place] [address]- 2560 Sep, [facility] [place] [facility] [address] [id number] [place] 9353 Sep, [facility] [place] [facility] [address] [id number] [place] 8150 Sep, [facility] [place] [facility] [address] [id number] [place] [address]- 1342 Sep, [facility] [place] [facility] [address] [id number] [place] [address]- 1357 Sep, [facility] [place] [facility] [address] [id number] [place] [address]- 7083 Aug, [facility] [place] [facility] [address] [id number] [place] [address]- 2978 Aug, [facility] [place] [facility] [address] [id number] [place] [address]- 4543 Aug, [facility] [place] [facility] [address] [id number] [place] [address]- 4956 Aug, [facility] [place] [facility] [address] [id number] [place] [address]- 8902 Jul, [facility] [place] [facility] [address] [id number] [place] [address]- 2771 Jul, [facility] [place] [facility] [address] [id number] [place] [address]- 1074 Jun, [facility] [place] [facility] [address] [id number] [place] [address]- 8664 Jun, [facility] [place] [facility] [address] [id number] [place] [address]- 3454 May, [facility] [place] [facility] [address] [id number] [place] [address]- 7953 May, [facility] [place] [facility] [address] [id number] [place] [address]- 9581 May, [facility] [place] [facility] [address] [id number] [place] [address]- 9447 May, [facility] [place] [facility] [address] [id number] [place] [address]- 1548 May, [facility] [place] [facility] [address] [id number] [place] [address]- 6739 May, [facility] [address] [id number] [place] [address] Apr, [facility] [place] [facility] [address] [id number] [place] [address] Apr, [facility] [place] [facility] [address] [id number] [place] [address] Apr, [facility] [place] [facility] [address] [id number] [place] [address] Apr, [facility] [place] [facility] [address] [id number] [place] [address] February, [facility] [place] [facility] [address] [id number] [place] [address] February, [facility] [place] [facility] [address] [id number] [place] [address] Oct, [facility] [place] [facility] [address] [id number] [place] [address] Oct, [facility] [place] [facility] [address] [id number] [place] [address] Oct, [facility] [place] [facility] [address] [id number] [place] [address] Oct, [facility] [place] [facility] [address] [id number] [place] [address] Sep, [facility] [place] [facility] [address] [id number], [place] [address] Sep, [facility] [place] [facility] [address] [id number] [place] [address] Sep, [facility] [place] [facility] [address] [id number] [place] [address] Sep, [facility] [place] [facility] [address] [id number] [place] [address] Aug, [facility] [place] [facility] [address] [id number], [place] [address] Aug, [facility] [place] [facility] [address] [id number] [place] [address] Aug, [facility] [place] [facility] [address] [id number] [place] [address] Aug, [facility] [place] [facility] [address] [id number] [place] [address] Jul, [facility] [place] [facility] [address] [id number] [place] [address] Jul, [facility] [place] [facility] [address] [id number] [place] [address] Jul, [facility] [place] [facility] [address] [id number] [place] [address] Jul, [facility] [place] [facility] [address] [address] [id number] [place] [address] Jul, [facility] [place] [facility] [address] [id number] [place] [address] Jul, [facility] [place] [facility] [address] [id number] [place] [address] Jul, [facility] [place] [facility] [address] [id number] [place] [address] Jul, [facility] [place] [facility] [address] [id number], [place] [address] Jul, [facility] [place] [facility] [address] [id number], [place] [address] Jul, [facility] [place] [facility] [address] [id number] [place] [address] Jun, [facility] [place] [facility] [address] [id number] [place] [address] May, [facility] [place] [facility] [address] [id number] [place] [address] Apr, [facility] [place] [facility] [address] [id number] [address] Apr, [facility] [address] [id number] [address] Apr, [facility] [id number] [address] Mar, [facility] [id number], [place] [address] Mar, [facility] [id number], [place] [address] Mar, [facility] [id number], [place] [address] Mar, [facility] [id number], [place] [address] Mar, [facility] [id number], [place] [address] Sep, [facility] [address] [id number], [place] [address] February, [facility] [id number], [place] [address] Jan, IMMUNIZATIONS No Known Immunizations SOCIAL HISTORY Never Assessed REASON FOR VISIT Refill request PLAN OF CARE VITAL SIGNS MEDICATIONS Medication Instructions Dosage Frequency Start Date End Date Duration Status Prazosin HCl 2 MG Orally Once a day 1 capsule at bedtime 24h 30 days Active Mirtazapine 30 MG Orally Once a day 1 tablet at bedtime 24h 30 days Active Meclizine HCl 25 MG Orally once [...] [facility] 02/06/17 Hospitalization History Altered mental status, lethargy-[facility] 07/10/17 Hospitalization History Chest pain-[facility] 08/05/17 Hospitalization History [facility] 10/2017 Hospitalization History Low potassium, A fib 01/2018 Hospitalization History Head injury 03/2018
--- OUTSIDE RECORDS SUMMARY | 2018-07-13 15:10 | XMS REPORT ---
Author Author FRANCHESKA HEADLEY Organization [facility] Address [address] [place] [address] Care Team Providers Care Manager Shop Name Role Phone FRANCHESKA HEADLEY Unavailable PROBLEMS Type Condition ICD9-CM Code ANO68-ZC Code Onset Dates Condition Status SNOMED Code Problem Other chronic pain G89.29 Active 71424716 Problem Lumbago with sciatica, left side M54.42 Active 971425277 Problem Seasonal allergic rhinitis, unspecified allergic rhinitis trigger J30.2 Active 102176752 Problem Methamphetamine abuse F15.10 Active 425575089 Problem Primary insomnia F51.01 Active 407388710 Problem Unsteady gait R26.81 Active 12055540 Problem Seizure disorder G40.909 Active 000863025 Problem Fibromyalgia M79.7 Active 008017878 Problem Infection of right eye H44.001 Active 52642135218945912 Problem Chronic fatigue R53.82 Active 42580771 Problem Chronic pain syndrome G89.4 Active 228969291 Problem Esophagitis, reflux K21.0 Active 754443525 Problem COPD (chronic obstructive pulmonary disease) with acute bronchitis J44.0 Active 579130633826931 Problem Edema, due to unspecified malnutrition type, unspecified type R60.9 Active 147012338 Problem Atrial fibrillation, unspecified type I48.91 Active 76002298 Problem Congestive heart failure, unspecified congestive heart failure chronicity, unspecified congestive heart failure type I50.9 Active 44734504 Problem Unspecified mood [affective] disorder F39 Active 814372638 Problem Major depressive disorder, recurrent episode, severe F33.2 Active 324592913276 Problem Lumbago with sciatica, right side M54.41 Active 043100074 Problem Polysubstance (excluding opioids) dependence F19.20 Active 13414598 Problem Anxiety F41.9 Active 07749508 ALLERGIES No Information ENCOUNTERS Encounter Location Date Diagnosis [facility] [address] [facility] [id number] [address] May, Methamphetamine abuse F15.10 [facility] [address] [place] [place] [id number] [place] [address] 52460- 1281 May, [facility] [address] [id number] [place] [address] 65261- 2814 Apr, [facility] [id number] [place] [address] 92867- 1014 Apr, Lumbago with sciatica, right side M54.41 ; Chronic pain syndrome G89.4 and Primary insomnia F51.01 [facility] [address] [address] Apr, Acute right ankle pain M25.571 [facility] [address] 19387 [address]20 Apr, [facility] [address] 10756 [address] Apr, Seasonal allergic rhinitis, unspecified trigger J30.2 and Acute right ankle pain M25.571 [place] [address] 81435- 3449 Mar, Primary insomnia F51.01 and Anxiety F41.9 [facility] [place] [address] [place] [id number] [place] [address] 25764- 3365 Mar, [facility] [place] [address] 64991- 4462 Mar, [facility] [address] [place] [id number] [place] [address] 87961- 9805 Mar, Lumbago with sciatica, left side M54.42 [facility] [address] 28918- 2122 Mar, [facility] [id number] [place] [address] 85572- 0554 05 Mar, 2018 Anxiety F41.9 [place] [address] [place] [id number] [place] [address] 66660- 5841 February, [facility] [place] [address] [id number] [place] [address] 90612- 4061 February, Unspecified mood [affective] disorder F39 [place] [address] [place] [id number] [place] [address] 89080- 8865 February, [facility] [address] 78328- 3851 February, [facility] [id number] [place] [address] 81059 -3042 February, Hordeolum externum of right upper eyelid H00.011 and Paronychia of finger of right hand L03.011 [place] [address] [place] [id number] [place] [address] 82556- 2700 February, [place] [address] 29459- 7907 February, Primary insomnia F51.01 ; Atrial fibrillation, unspecified type I48.91 ; Unsteady gait R26.81 ; General weakness R53.1 ; Chronic fatigue R53.82 ; Hypokalemia E87.6 and Other chronic pain G89.29 [place] [address] [place] [id number] [place] [address] 42173- 6374 February, [place] [address] [place] [id number] [place] [address] 70277- 2164 Jan, Lumbago with sciatica, right side M54.41 [place] [address] [place] [id number] [place] [address] 04958- 8145 Jan, Anxiety F41.9 ; Chronic pain syndrome G89.4 ; Folliculitis L73.9 and Fibromyalgia M79.7 [place] [address] [place] [id number] [place] [address] 74471- 5583 Jan, Lumbago with sciatica, right side M54.41 [place] [address] [place] [id number] [place] [address] 31083- 0471 Dec, [place] [address] 54759- 4717 Nov, Lumbago with sciatica, right side M54.41 [place] [address] 81611- 8188 Nov, [place] [address] 76320- 9391 Nov, Unspecified mood [affective] disorder F39 ; Hypokalemia E87.6 and Anemia, unspecified type D64.9 [place] [address] 53416- 0419 Nov, [place] [address] 47872- 8435 Oct, Lumbago with sciatica, right side M54.41 [facility] [place] [address] [place] [id number] [place] [address] 21719 [address]9025 19 Aug, 2017 Congestive heart failure, unspecified congestive heart failure chronicity, unspecified congestive heart failure type I50.9 and Peripheral edema R60.9 [place] [address] [place] [id number] [place] [address] 11621- 3901 17 Aug, 2017 Polysubstance (excluding opioids) dependence F19.20 and Lumbago with sciatica, left side M54.42 [place] [address] [place] [id number] [place] [address] 03477- 9319 17 Aug, 2017 [facility] [place] [address] 19137 -4324 14 Aug, 2017 Infection of right eye H44.001 [place] [address] [place] [id number] [place] [address] 44142- 3242 14 Aug, 2017 Congestive heart failure, unspecified congestive heart failure chronicity, unspecified congestive heart failure type I50.9 and Other chronic pain G89.29 [place] [address] [place] [address] 91640- 6854 Aug, Lumbago with sciatica, right side M54.41 [facility] [address] [address] [id number] [place] [address] 63816- 4311 Aug, Lumbago with sciatica, right side M54.41 [place] [address] [place] [id number] [place] [address] 13967- 8856 Aug, [facility] [place] [address] [place] [id number] [place] [address] 81129- 0199 Jul, [place] [address] 38310- 0098 Jul, COPD (chronic obstructive pulmonary disease) with acute bronchitis J44.0 ; Atrial fibrillation, unspecified type I48.91 ; Polysubstance (excluding opioids) dependence F19.20 ; Congestive heart failure, unspecified congestive heart failure chronicity, unspecified congestive heart failure type I50.9 and Lumbago with sciatica, right side M54.41 [facility] [address] [place] [id number] [place] [address] [phone] Jul, [place] [address] [place] [id number] [place] [address] 73021- 2450 Jul, Seizure disorder G40.909 [place] [address] [place] [id number] [place] [address] 34258- 9864 Jul, Lumbago with sciatica, right side M54.41 [facility] [place] [address] [id number] [place] [address] 09742- 7891 Jul, [facility] [id number] [place] [address] 70044- 1222 Jun, Congestive heart failure, unspecified congestive heart failure chronicity, unspecified congestive heart failure type I50.9 ; Lumbago with sciatica, right side M54.41 and Other chronic pain G89.29 [place] [address] [place] [id number] [place] [address] 63963- 6376 Jun, [facility] [address] [place] [id number] [place] [address] 76619- 5045 Jun, [facility] [address] [id number] [place] [address] 73602- 3037 May, Lumbago with sciatica, left side M54.42 [place] [address] [place] [id number] [place] [address] 47533- 9156 May, [facility] [id number] [place] [address] 37069 -0831 May, Unspecified fall, initial encounter W19.XXXA [place] [address] [place] [id number] [place] [address] 40541- 7100 May, Lumbago with sciatica, right side M54.41 [place] [address] [place] [id number] [place] [address] 17989- 7002 May, [place] [address] [place] [id number] [place] [address] 39758- 5950 May, Bloating R14.0 and Right hip pain M25.551 [place] [address] [place] [id number] [place] [address] 67304- 9587 Apr, [place] [address] [place] [id number] [place] [address] 11211- 9335 Apr, Lumbago with sciatica, left side M54.42 [place] [address] [place] [id number] [place] [address] 35824- 2486 Mar, [facility] [address] [place] [id number] [place] [address] 71049 -5607 Mar, Lumbago with sciatica, right side M54.41 [facility] [address] [place] [id number] [place] [address] 35121 -6537 Mar, Abdominal distension R14.0 [facility] [address] [address] 18374- 8349 Mar, Periumbilical abdominal pain R10.33 and Diarrhea, unspecified type R19.7 [facility] [place] [address] 67898 -3451 February, Seasonal allergic rhinitis, unspecified allergic rhinitis trigger J30.2 ; Acute middle ear effusion, bilateral H65.193 and Lumbago with sciatica, right side M54.41 [place] [address] 55284- 0304 February, Routine gynecological examination Z01.419 [place] [address] 786033- 4574 Jan, [place] [address] 41233- 0484 Jan, Atrial fibrillation, unspecified type I48.91 [facility] IN [place] [address] 47583 -5295 Jan, Lumbago with sciatica, right side M54.41 and Wound, open, toe, initial encounter S91.109A [place] [address] [id number] Jan, [facility] IN [place] [address] 94563 -3662 Jan, Acute bilateral low back pain without sciatica M54.5 [place] [address] 09330- 9546 Dec, Congestive heart failure, unspecified congestive heart failure chronicity, unspecified congestive heart failure type I50.9 [place] [address] 11288- 3417 Dec, [place] [address] 44588- 5972 Dec, Thrush, oral B37.0 and Lumbago with sciatica, right side M54.41 [place] [address] [place] [id number] [place] [address] 31465- 0781 Dec, [facility] [id number] [place] [address] 68348- 3264 Nov, [facility] [id number] [place] [address] 93421- 4203 Nov, [facility] [address] 30953- 2206 Oct, Polysubstance (excluding opioids) dependence F19.20 ; Other chronic pain G89.29 and Lumbago with sciatica, right side M54.41 [facility] [id number] [place] [address] 65897- 3190 Oct, [facility] [id number] [place] [address] 35459- 5745 Aug, Lumbago with sciatica, right side M54.41 ; Other chronic pain G89.29 and Anxiety F41.9 [facility] [id number] [place] [address] 84841- 7873 Aug, [facility] [place] [id number] [place] [address] 41020- 5415 Aug, [facility] [place] [id number] [place] [address] 48636- 9041 Aug, [facility] [place] [address] [place] [id number] [place] [address] 21244- 0392 Aug, [facility] [place] [id number] [place] [address] 96356- 0679 Aug, [facility] [place] [address] [place] [id number] [place] [address] 55473- 7285 Aug, [facility] [address] [id number] [place] [address] 77132- 3835 Jul, Unspecified mood [affective] disorder F39 and Seizure disorder G40.909 [facility] [address] [place] [place] [id number] [place] [address] 59374- 9294 Jul, [facility] [address] [place] [id number] [place] [address] 41678- 2496 Jul, [facility] [address] [place] [id number] [place] [address] 87711- 6851 Jul, Unspecified mood [affective] disorder F39 and Seizure disorder G40.909 [place] [address] [place] [id number] [place] [address] 62296- 0945 Jul, Polysubstance (excluding opioids) dependence F19.20 ; COPD ( chronic obstructive pulmonary disease) with acute bronchitis J44.0 ; Congestive heart failure, unspecified congestive heart failure chronicity, unspecified congestive heart failure type I50.9 ; Radiculopathy of lumbosacral region M54.17 and Radiculopathy, thoracic region M54.14 [place] [address] [place] [id number] [place] [address] 07297- 8992 Jun, Lumbago M54.5 [place] [address] [place] [id number] [place] [address] 42175- 4513 May, [place] [address] [place] [id number] [place] [address] 17112- 9627 May, [place] [address] [place] [id number] [place] [address] 24960- 1264 May, [place] [address] [place] [id number] [place] [address] 93988- 4323 Apr, COPD (chronic obstructive pulmonary disease) with acute bronchitis J44.0 [facility] [address] [place] [id number] [place] [address] 05093- 0880 Apr, Major depressive disorder, recurrent episode, severe F33.2 and Polysubstance (excluding opioids) dependence F19.20 [facility] [address] [place] [address] 46215- 8226 Mar, Major depressive disorder, recurrent episode, severe F33.2 and Polysubstance (excluding opioids) dependence F19.20 [facility] [address] [place] [id number] [place] [address] 91913- 2905 16 Mar, 2016 Major depressive disorder, recurrent episode, severe F33.2 and Polysubstance (excluding opioids) dependence F19.20 [facility] [address] 53665- 7029 Mar, Major depressive disorder, recurrent episode, severe F33.2 and Polysubstance (excluding opioids) dependence F19.20 [facility] [address] 61643- 5653 February, Major depressive disorder, recurrent episode, severe F33.2 and Polysubstance (excluding opioids) dependence F19.20 [place] [address] 47523- 5276 February, [place] [address] 61702- 5387 February, COPD (chronic obstructive pulmonary disease) with acute bronchitis J44.0 [facility] [address] 57545 -8036 February, Sore throat J02.9 and Bronchitis J40 [place] [address] 32959- 4785 Jan, COPD (chronic obstructive pulmonary disease) with acute bronchitis J44.0 [facility] [address] 68987- 4051 Jan, COPD (chronic obstructive pulmonary disease) with acute bronchitis J44.0 [place] [address] 73807- 5592 Jan, [facility] [place] [address] 01147- 5397 Dec, Gastritis K29.70 ; Constipation K59.00 and Lumbago M54.5 [place] [address] 04926- 1000 Dec, COPD (chronic obstructive pulmonary disease) with acute bronchitis J44.0 [facility] [place] [address] 92807- 9034 18 Nov, 2015 Major depressive disorder, recurrent episode, severe F33.2 and Polysubstance (excluding opioids) dependence F19.20 [facility] [address] 65331 -4899 Oct, Oral thrush B37.0 and Drug abuse F19.10 [facility] [place] [address] 40679- 1917 Oct, [facility] [place] [address] 72602- 1990 Sep, COPD (chronic obstructive pulmonary disease) with acute bronchitis J44.0 ; Esophagitis, reflux K21.0 ; Seizure disorder G40.909 ; Primary insomnia F51.01 ; Edema, due to unspecified malnutrition type, unspecified type R60.9 ; Arthritis M19.90 and Thrush B37.0 [facility] [place] [address] 94321- 4992 Aug, [facility] [place] [address] 09281- 8546 Aug, [place] [address] 21653- 9886 Aug, [facility] [place] [address] 63935- 1027 Jul, [place] [address] 97372- 4537 Jun, [place] [address] 57453- 2974 Jun, Counseling on substance use and abuse V65.42 and Obstructive chronic bronchitis, with (acute) exacerbation 491.21 [place] [address] [place] [address]- 6612 May, [facility] [address] [place] [id number] [place] [address] 57179- 9870 Apr, [facility] [address] [place] [id number] [place] [address] 18690- 8934 Apr, Abdominal pain 789.00 and Back pain 724.5 [facility] [place] [address] 15894- 1943 Mar, Back pain 724.5 and Illicit drug use 305.90 [facility] [address] [place] [id number] [place] [address] 615577- 7680 February, Onychomycosis 110.1 [facility] [address] 50369- 4741 February, Breast cancer screening V76.10 [facility] [place] [address] 96770- 4825 February, [facility] [address] [place] [id number] [place] [address] 36800- 9736 February, [facility] [address] [place] [id number] [place] [address] 95281- 4229 February, Cough 786.2 ; Obstructive chronic bronchitis, with (acute) exacerbation 491.21 ; Vomiting 787.03 ; 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 and Gastritis 535.50 [facility] [address] [place] [id number] [place] [address] 09911- 3370 Jan, [facility] [address] [place] [id number] [place] [address] 29259- 1510 Jan, [facility] [address] [place] [id number] [place] [address] [id number]- 5668 Dec, [facility] [id number] [place] [id number] [address] Dec, [facility] [place] [address] [address] 20 Dec, 2014 [facility] [place] [facility] [address] [id number] [place] [address] 13 Dec, 2014 [facility] [place] [facility] [address] [id number] [place] [address] 13 Dec, 2014 [facility] [place] [facility] [address] [id number] [place] [address]- [address]883 12 Dec, 2014 [facility] [place] [facility] [address] [id number] [place] [address]- [address] 12 Dec, 2014 [facility] [place] [facility] [address] [id number] [place] [address]- [address] Dec, [facility] [place] [facility] [address] [id number] [place] [address] Dec, [facility] [place] [facility] [address] [id number] [place] [address]- [address] Sep, [facility] [place] [facility] [address] [id number] [place] [address] Sep, [facility] [place] [facility] [address] [id number] [place] [address] Sep, [facility] [place] [facility] [address] [id number] [place] [address]- [address] Sep, [facility] [place] [facility] [address] [id number] [place] [address] 37[address] Sep, [facility] [place] [facility] [address] [id number] [place] [address]- 9680 Sep, [facility] [place] [facility] [address] [id number] [place] [address]- 1287 Sep, [facility] [place] [facility] [address] [id number] [place] [address] Sep, [facility] [place] [facility] [address] [id number] [place] [address] Sep, [facility] [place] [facility] [address] [id number] [place] [address]- [address] Sep, [facility] [place] [facility] [address] [id number] [place] [address]- [address]608 Aug, [facility] [place] [facility] [address] [id number] [place] [address]- [address]507 Aug, [facility] [place] [facility] [address] [id number] [place] [address]- 7034 Aug, [facility] [place] [facility] [address] [id number] [place] [address]- 9625 Aug, [facility] [place] [facility] [address] [id number] [place] [address]- [address] Jul, [facility] [place] [facility] [address] [id number] [place] [address]- 1478 Jul, [facility] [place] [facility] [address] [id number] [place] [address]- 8482 Jun, [facility] [place] [facility] [address] [id number] [place] [address] Jun, [facility] [place] [facility] [address] [id number] [place] [address] May, [facility] [place] [facility] [address] [id number] [place] [address] May, [facility] [place] [facility] [address] [id number] [place] [address] May, [facility] [place] [facility] [address] [id number] [place] [address] May, [facility] [place] [facility] [address] [id number] [place] [address] May, [facility] [place] [facility] [address] [id number] [place] [address] May, [facility] [place] [facility] [address] [id number] [place] [address] Apr, [facility] [address] [id number] [place] [address] Apr, [facility] [place] [facility] [address] [id number] [place] [address] Apr, [facility] [place] [facility] [address] [id number] [place] [address] Apr, [facility] [place] [facility] [address] [id number] [place] [address] February, [facility] [place] [facility] [address] [id number] [place] [address] February, [facility] [place] [facility] [address] [id number] [place] [address] Oct, [facility] [place] [facility] [address] [id number] [place] [address] Oct, [facility] [place] [facility] [address] [id number] [place] [address] Oct, [facility] [place] [facility] [address] [id number] [place] [address] Oct, [facility] [place] [facility] [address] [id number] [place] [address] Sep, [facility] [place] [facility] [address] [id number] [place] [address] Sep, [facility] [place] [facility] [address] [id number], [place] [address] Sep, [facility] [place] [facility] [address] [id number] [place] [address] Sep, [facility] [place] [facility] [address] [id number] [place] [address] Aug, [facility] [place] [facility] [address] [id number], [place] [address] Aug, [facility] [place] [facility] [address] [id number], [place] [address] Aug, [facility] [place] [facility] [address] [id number] [place] [address] Aug, [facility] [place] [facility] [address] [id number] [place] [address] Jul, [facility] [place] [facility] [address] [id number] [place] [address] Jul, [facility] [place] [facility] [address] [id number] [place] [address] Jul, [facility] [place] [facility] [address] [id number] [place] [address] Jul, [facility] [place] [facility] [address] [id number] [place] [address] Jul, [facility] [place] [facility] [address] [id number] [place] [address] Jul, [facility] [place] [facility] [address] [id number] [place] [address] Jul, [facility] [place] [facility] [address] [id number] [place] [address] Jul, [facility] [place] [facility] [address] [id number] [place] [address] Jul, [facility] [place] [facility] [address] [id number] [place] [address] Jul, [facility] [place] [facility] [address] [id number], [place] [address] Jun, [facility] [place] [facility] [address] [id number] [place] [address] May, [facility] [place] [facility] [address] [id number] [place] [address] Apr, [facility] [place] [facility] [address] [id number] [place] [address] Apr, [facility] [place] [facility] [address] [id number], [place] [address] Apr, [facility] [place] [address] [id number], [place] [address] Mar, [facility] [place] [address] [id number], [place] [address] Mar, [facility] [place] [address] [id number], [place] [address] Mar, [facility] [place] [id number] [address] Mar, [facility] [place] [id number] [address] Mar, [facility] [place] [id number] [address] Sep, [facility] [place] [id number] [address] February, [facility] [place] [address] [id number], [place] [address] Jan, IMMUNIZATIONS No Known Immunizations SOCIAL HISTORY Never Assessed REASON FOR VISIT Requests return call PLAN OF CARE VITAL SIGNS MEDICATIONS No Known Medications RESULTS No Results PROCEDURES No Known [...]
--- OUTSIDE RECORDS SUMMARY | 2018-07-13 15:10 | XMS REPORT ---
Author Author ZEE QUINTANA [facility] WALK IN [facility] Address [address] [place] [address] Care Team Providers Care Delivery Manager Name Role Phone ZEE QUINTANA Unavailable PROBLEMS Type Condition ICD9-CM Code MLD47-PN Code Onset Dates Condition Status SNOMED Code Problem Other chronic pain G89.29 Active 03185979 Problem Lumbago with sciatica, left side M54.42 Active 660352643 Problem Seasonal allergic rhinitis, unspecified allergic rhinitis trigger J30.2 Active 131362572 Problem Methamphetamine abuse F15.10 Active 832988691 Problem Primary insomnia F51.01 Active 183967297 Problem Unsteady gait R26.81 Active 15097126 Problem Seizure disorder G40.909 Active 047997134 Problem Fibromyalgia M79.7 Active 001875354 Problem Infection of right eye H44.001 Active [id number] Problem Chronic fatigue R53.82 Active 66502411 Problem Chronic pain syndrome G89.4 Active 820747855 Problem Esophagitis, reflux K21.0 Active 494359889 Problem COPD (chronic obstructive pulmonary disease) with acute bronchitis J44.0 Active [id number] Problem Edema, due to unspecified malnutrition type, unspecified type R60.9 Active 002982549 Problem Atrial fibrillation, unspecified type I48.91 Active 97219338 Problem Congestive heart failure, unspecified congestive heart failure chronicity, unspecified congestive heart failure type I50.9 Active 66154521 Problem Unspecified mood [affective] disorder F39 Active 527553792 Problem Major depressive disorder, recurrent episode, severe F33.2 Active 973212479056 Problem Lumbago with sciatica, right side M54.41 Active 119343512 Problem Polysubstance (excluding opioids) dependence F19.20 Active 69498465 Problem Anxiety F41.9 Active 26597288 ALLERGIES Substance Reaction Event Type Date Status Saphris Unknown Drug Allergy February, Active Tylenol/Codeine #3 Unknown Drug Allergy February, Active Phenergan Unknown Drug Allergy February, Active Keflex Unknown Drug Allergy February, Active Inapsine Unknown Drug Allergy February, Active Geodon Unknown Drug Allergy February, Active Erythromycin Unknown Drug Allergy February, Active Darvocet-N 50 Unknown Drug Allergy February, Active Compazine Unknown Drug Allergy February, Active Cephalexin Unknown Drug Allergy February, Active Bactrim Unknown Drug Allergy February, Active ENCOUNTERS Encounter Location Date Diagnosis [facility] WALK IN [facility] [address] [address] May, Methamphetamine abuse F15.[address] [address] May, [place] [address] [address]16 Apr, [address] [address]- [address] Apr, Lumbago with sciatica, right side M54.41 ; Chronic pain syndrome G89.4 and Primary insomnia F51.01 [facility] WALK IN [address] [address] Apr, Acute right ankle pain M25.571 [facility] WALK IN [address] [address] Apr, [facility] WALK IN [place] [address] [address] Apr, Seasonal allergic rhinitis, unspecified trigger J30.2 and Acute right ankle pain M25.[address] [address] 47[address] Mar, Primary insomnia F51.01 and Anxiety F41.[address] 9[address]- 6202 Mar, [address] 6[address]71- 3829 Mar, [facility] [address] [place] [id number] [place] [address] 36745- 4689 13 Mar, 2018 Lumbago with sciatica, left side M54.42 [facility] [address] [place] [id number] [place] [address] 30246- 7999 Mar, [facility] [address] [place] [id number] [place] [address] 81676- 9961 Mar, Anxiety F41.9 [facility] [address] [place] [id number] [place] [address] 87297- 2878 February, [facility] [address] [place] [id number] [place] [address] 15938- 4685 February, Unspecified mood [affective] disorder F39 [place] [address] [place] [id number] [place] [address] 97985- 1442 February, [facility] [address] [place] [id number] [place] [address] 93434- 5665 February, [facility] WALK IN [facility] [address] [place] [id number] [place] [address] 05788 [address]7478 February, Hordeolum externum of right upper eyelid H00.011 and Paronychia of finger of right hand L03.011 [place] [address] [place] [id number] [place] [address] 67158- 5552 February, [facility] [address] [place] [id number] [place] [address] 67442- 1031 February, Primary insomnia F51.01 ; Atrial fibrillation, unspecified type I48.91 ; Unsteady gait R26.81 ; General weakness R53.1 ; Chronic fatigue R53.82 ; Hypokalemia E87.6 and Other chronic pain G89.29 [facility] [address] [place] [id number] [place] [address] 01125- 1859 February, [facility] [address] [place] [id number] [place] [address] 79877- 3833 Jan, Lumbago with sciatica, right side M54.41 [place] [address] [place] [id number] [place] [address] 53105- 1942 Jan, Anxiety F41.9 ; Chronic pain syndrome G89.4 ; Folliculitis L73.9 and Fibromyalgia M79.7 [place] [address] [place] [id number] [place] [address] 40631- 7663 Jan, Lumbago with sciatica, right side M54.41 [place] [address] [place] [id number] [place] [address] 53402- 1460 Dec, [place] [address] 12314- 4993 Nov, Lumbago with sciatica, right side M54.41 [place] [address] [place] [id number] [place] [address] 13770- 4305 Nov, [place] [address] [place] [id number] [place] [address] 31570- 0139 Nov, Unspecified mood [affective] disorder F39 ; Hypokalemia E87.6 and Anemia, unspecified type D64.9 [place] [address] [place] [id number] [place] [address] 56194- 7100 Nov, [place] [address] [place] [id number] [place] [address] 60297- 9437 Oct, Lumbago with sciatica, right side M54.41 [facility] WALK IN [facility] [address] [place] [id number] [place] [address] 97645 -3899 Aug, Congestive heart failure, unspecified congestive heart failure chronicity, unspecified congestive heart failure type I50.9 and Peripheral edema R60.9 [place] [address] [place] [id number] [place] [address] 58323- 0521 17 Aug, 2017 Polysubstance (excluding opioids) dependence F19.20 and Lumbago with sciatica, left side M54.42 [facility] [address] [place] [address] 86962- 0946 17 Aug, 2017 [facility] WALK IN CARE [address] [place] [id number] [place] [address] 69691 -1884 Aug, Infection of right eye H44.001 [facility] [address] [place] [id number] [place] [address] 95208- 9713 Aug, Congestive heart failure, unspecified congestive heart failure chronicity, unspecified congestive heart failure type I50.9 and Other chronic pain G89.29 [facility] [address] [place] [id number] [place] [address] 09635- 1279 Aug, Lumbago with sciatica, right side M54.41 [facility] [address] [place] [id number] [place] [address] 38305- 2890 Aug, Lumbago with sciatica, right side M54.41 [facility] [address] [place] [id number] [place] [address] 14264- 9802 Aug, [facility] [address] [place] [id number] [place] [address] 66480- 2158 Jul, [facility] [address] [place] [id number] [place] [address] 34180- 9322 Jul, COPD (chronic obstructive pulmonary disease) with acute bronchitis J44.0 ; Atrial fibrillation, unspecified type I48.91 ; Polysubstance (excluding opioids) dependence F19.20 ; Congestive heart failure, unspecified congestive heart failure chronicity, unspecified congestive heart failure type I50.9 and Lumbago with sciatica, right side M54.41 [facility] [place] [address] [place] [id number] [place] [address] [id number] Jul, [facility] [address] [place] [id number] [place] [address] 69036- 1126 Jul, Seizure disorder G40.909 [facility] [address] [place] [id number] [place] [address] 78718- 2022 Jul, Lumbago with sciatica, right side M54.41 [facility] [address] [address] 1463 Jul, [facility] [address] [place] [id number] [place] [address] 05273- 5648 Jun, Congestive heart failure, unspecified congestive heart failure chronicity, unspecified congestive heart failure type I50.9 ; Lumbago with sciatica, right side M54.41 and Other chronic pain G89.29 [facility] [address] [place] [id number] [place] [address] 96103- 0427 Jun, [facility] [address] [place] [id number] [place] [address] 07017- 5372 Jun, [facility] [address] [place] [id number] [place] [address] 96980- 8909 May, Lumbago with sciatica, left side M54.42 [facility] [address] [place] [id number] [place] [address] 15104- 4155 May, [facility] WALK IN CARE [address] [place] [id number] [place] [address] 47090 -8729 May, Unspecified fall, initial encounter W19.XXXA [facility] [address] [place] [id number] [place] [address] 87698- 3309 May, Lumbago with sciatica, right side M54.41 [facility] [address] [place] [id number] [place] [address] 30454- 8841 May, [facility] [address] [place] [id number] [place] [address] 79723- 7725 May, Bloating R14.0 and Right hip pain M25.551 [facility] [address] [place] [address] 32279- 3539 Apr, [facility] [address] [place] [id number] [place] [address] 84101- 3995 Apr, Lumbago with sciatica, left side M54.42 [place] [address] [place] [id number] [place] [address] 78938- 0173 Mar, [facility] WALK IN [place] [address] 66122 [address]3373 Mar, Lumbago with sciatica, right side M54.41 [facility] WALK IN [place] [address] 60346 [address]2654 Mar, Abdominal distension R14.0 [place] [address] 20608- 2512 Mar, Periumbilical abdominal pain R10.33 and Diarrhea, unspecified type R19.7 [facility] WALK IN [place] [address] 259[address] February, Seasonal allergic rhinitis, unspecified allergic rhinitis trigger J30.2 ; Acute middle ear effusion, bilateral H65.193 and Lumbago with sciatica, right side M54.41 [place] [address] 88396- 4147 February, Routine gynecological examination Z01.419 [place] [address] 21984- 7228 Jan, [place] [address] 64771- 2469 Jan, Atrial fibrillation, unspecified type I48.91 [facility] WALK IN [place] [address] [place] [id number] [place] [address] 85063 -3767 Jan, Lumbago with sciatica, right side M54.41 and Wound, open, toe, initial encounter S91.109A [place] [address] [id number] Jan, [facility] WALK IN [place] [address] 29276 -6430 Jan, Acute bilateral low back pain without sciatica M54.5 [place] [address] [place] [id number] [place] [address] 34154- 8309 Dec, Congestive heart failure, unspecified congestive heart failure chronicity, unspecified congestive heart failure type I50.9 [facility] [address] [place] [id number] [place] [address] 59622- 0496 Dec, [facility] [address] [place] [id number] [place] [address] 89352- 4635 Dec, Thrush, oral B37.0 and Lumbago with sciatica, right side M54.41 [facility] [address] [place] [id number] [place] [address] 40954- 3779 Dec, [facility] [address] [place] [id number] [place] [address] 12805- 6670 Nov, [facility] [address] [place] [id number] [place] [address] 86516- 0855 Nov, [facility] [address] [place] [id number] [place] [address] 68113- 4097 Oct, Polysubstance (excluding opioids) dependence F19.20 ; Other chronic pain G89.29 and Lumbago with sciatica, right side M54.41 [facility] [address] [place] [id number] [place] [address] 30352- 2906 Oct, [facility] [address] [place] [id number] [place] [address] 63587- 1690 Aug, Lumbago with sciatica, right side M54.41 ; Other chronic pain G89.29 and Anxiety F41.9 [facility] [address] [place] [id number] [place] [address] 63717- 7109 Aug, [facility] [address] [place] [id number] [place] [address] 58331- 5251 Aug, [facility] [address] [place] [id number] [place] [address] 99445- 8364 Aug, [facility] [address] [place] [address]- 0017 Aug, [facility] [address] [address]- 4628 Aug, [facility] [address] [place] [id number] [place] [address] 35982- 7694 Aug, [facility] [address] [place] [address] 37571- 2073 Jul, Unspecified mood [affective] disorder F39 and Seizure disorder G40.909 [facility] [address] [place] [id number] [place] [address] 25469- 5344 Jul, [facility] [address] [place] [id number] [place] [address] 23844- 3307 Jul, [facility] [address] [place] [id number] [place] [address] 22440- 6999 Jul, Unspecified mood [affective] disorder F39 and Seizure disorder G40.909 [facility] [address] [place] [address] 22508- 4921 Jul, Polysubstance (excluding opioids) dependence F19.20 ; COPD ( chronic obstructive pulmonary disease) with acute bronchitis J44.0 ; Congestive heart failure, unspecified congestive heart failure chronicity, unspecified congestive heart failure type I50.9 ; Radiculopathy of lumbosacral region M54.17 and Radiculopathy, thoracic region M54.14 [facility] [address] [place] [id number] [place] [address] 09703- 9940 Jun, Lumbago M54.5 [facility] [address] [place] [address] 52569- 5490 May, [facility] [address] [place] [id number] [place] [address] 52613- 8169 May, [facility] [address] [address]- 3495 May, [facility] [address] [place] [id number] [place] [address] 10444- 7786 Apr, COPD (chronic obstructive pulmonary disease) with acute bronchitis J44.0 [place] [address] 69626- 5606 Apr, Major depressive disorder, recurrent episode, severe F33.2 and Polysubstance (excluding opioids) dependence F19.20 [facility] [address] 82023- 2901 Mar, Major depressive disorder, recurrent episode, severe F33.2 and Polysubstance (excluding opioids) dependence F19.20 [place] [address] 55960- 4426 Mar, Major depressive disorder, recurrent episode, severe F33.2 and Polysubstance (excluding opioids) dependence F19.20 [place] [address] 57339- 8078 Mar, Major depressive disorder, recurrent episode, severe F33.2 and Polysubstance (excluding opioids) dependence F19.20 [place] [address] 99138- 9661 February, Major depressive disorder, recurrent episode, severe F33.2 and Polysubstance (excluding opioids) dependence F19.20 [place] [address] [place] [id number] [place] [address] 16437- 3462 February, [facility] [address] 03981- 9445 February, COPD (chronic obstructive pulmonary disease) with acute bronchitis J44.0 [facility] WALK IN [facility] [address] 72181 -4551 February, Sore throat J02.9 and Bronchitis J40 [facility] [address] [place] [id number] [place] [address] 65561- 6181 Jan, COPD (chronic obstructive pulmonary disease) with acute bronchitis J44.0 [facility] [address] [place] [id number] [place] [address] 32382- 9970 Jan, COPD (chronic obstructive pulmonary disease) with acute bronchitis J44.0 [facility] [address] 37526- 9114 14 Jan, 2016 [place] [address] 03599- 1783 Dec, Gastritis K29.70 ; Constipation K59.00 and Lumbago M54.[address] 06855- 0333 Dec, COPD (chronic obstructive pulmonary disease) with acute bronchitis J44.[address] 74323- 4103 18 Nov, 2015 Major depressive disorder, recurrent episode, severe F33.2 and Polysubstance (excluding opioids) dependence F19.20 [facility] IN [facility] [address] 03899 -6035 Oct, Oral thrush B37.0 and Drug abuse F19.[address] 00144- 7310 Oct, [address] 28619- 9780 Sep, COPD (chronic obstructive pulmonary disease) with acute bronchitis J44.0 ; Esophagitis, reflux K21.0 ; Seizure disorder G40.909 ; Primary insomnia F51.01 ; Edema, due to unspecified malnutrition type, unspecified type R60.9 ; Arthritis M19.90 and Thrush B37.[address] 93202- 6004 Aug, [address] 86022- 7726 Aug, [address] 70592- 6181 Aug, [facility] [address] [address]- 4749 Jul, [facility] [address] [place] [address] 101182- 7998 Jun, [facility] [address] [place] [address] 269183- 5134 Jun, Counseling on substance use and abuse V65.42 and Obstructive chronic bronchitis, with (acute) exacerbation 491.21 [facility] [address] [address]- 8833 May, [place] [address] [place] [id number] [place] [address] 307761- 2823 Apr, [place] [address] [place] [id number] [place] [address] 40038- 2121 Apr, Abdominal pain 789.00 and Back pain 724.5 [place] [address] [place] [address] 70580- 4211 Mar, Back pain 724.5 and Illicit drug use 305.90 [place] [id number] [place] [address] 28859- 3016 February, Onychomycosis [address] [place] [address] 68141- 3438 February, Breast cancer screening V76.[address] [place] [address] 09574- 0910 February, [place] [address] [place] [address] 63993- 5739 February, [place] [address] [place] [address] 51344896- 9986 February, Cough 786.2 ; Obstructive chronic bronchitis, with (acute) exacerbation 491.21 ; Vomiting 787.03 ; 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 and Gastritis 535.50 [place] [id number] [place] [address]- 4282 14 Jan, 2015 [facility] [place] [facility] [address] [id number] [place] [address]- 3831 13 Jan, 2015 [facility] [place] [facility] [address] [id number] [place] [address]- 4888 24 Dec, 2014 [facility] [place] [facility] [address] [id number] [place] [address]- 1109 20 Dec, 2014 [facility] [place] [facility] [address] [id number] [place] [address]- 1851 20 Dec, 2014 [facility] [place] [facility] [address] [id number] [place] [address]- 8949 13 Dec, 2014 [facility] [place] [facility] [address] [id number] [place] [address]- 8939 13 Dec, 2014 [facility] [place] [facility] [address] [id number] [place] [address]- 4090 12 Dec, 2014 [facility] [place] [facility] [address] [id number] [place] [address]- 3864 12 Dec, 2014 [facility] [place] [facility] [address] [id number] [place] [address]- 2017 Dec, [facility] [place] [facility] [address] [id number] [place] [address]- 6713 Dec, [facility] [place] [facility] [address] [id number] [place] [address]- 4667 Sep, [facility] [place] [facility] [address] [id number] [place] [address]- 6372 Sep, [facility] [place] [facility] [address] [id number] [place]- 0471 Sep, [facility] [place] [facility] [address] [id number] [place] [address]- 4865 Sep, [facility] [place] [facility] [address] [id number] [place] 3837 Sep, [facility] [place] [facility] [address] [id number] [place] [address]- 2164 Sep, [facility] [place] [facility] [address] [id number] [place] [address]- 7727 Sep, [facility] [place] [facility] [address] [id number] [place] [address]- 1117 Sep, [facility] [place] [facility] [address] [id number] [place] [address]- 1843 Sep, [facility] [place] [facility] [address] [id number] [place] [address]- 8959 Sep, [facility] [place] [facility] [address] [id number] [place] [address]- 9680 Aug, [facility] [place] [facility] [address] [id number] [place] [address]- 5843 Aug, [facility] [place] [facility] [address] [id number] [place] [address]- 8463 Aug, [facility] [place] [facility] [address] [id number] [place] [address]- 7761 Aug, [facility] [place] [facility] [address] [id number] [place] [address]- 1724 Jul, [facility] [place] [facility] [address] [id number] [place] [address]- 5074 Jul, [facility] [place] [facility] [address] [id number] [place] [address]- 5874 Jun, [facility] [place] [facility] [address] [id number] [place] [address]- 0748 Jun, [facility] [place] [facility] [address] [id number] [place] [address]- 0710 May, [facility] [place] [facility] [address] [id number] [place] [address]- 2949 May, [facility] [place] [facility] [address] [id number] [place] [address]- 8227 May, [facility] [place] [facility] [address] [id number] [place] [address]- 6444 May, [facility] [place] [facility] [address] [id number] [place] [address] May, [facility] [place] [facility] [address] [id number] [place] [address] May, [facility] [place] [facility] [address] [id number] [place] [address] Apr, [facility] [place] [facility] [address] [id number] [place] [address] Apr, [facility] [place] [facility] [address] [id number] [place] [address] Apr, [facility] [place] [facility] [address] [id number] [place] [address] Apr, [facility] [place] [facility] [address] [id number] [place] [address] February, [facility] [place] [facility] [address] [id number] [place] [address] February, [facility] [place] [facility] [address] [id number] [place] [address] Oct, [facility] [place] [facility] [address] [id number] [place] [address] Oct, [facility] [place] [facility] [address] [id number] [place] [address] Oct, [facility] [place] [facility] [address] [id number] [place] [address] Oct, [facility] [place] [facility] [address] [id number] [place] [address] Sep, [facility] [place] [facility] [address] [id number] [place] [address] Sep, [facility] [place] [facility] [address] [id number] [place] [address] Sep, [facility] [address] [id number] [place] [address] Sep, [facility] [place] [facility] [address] [id number] [place] [address]- [address] Aug, [facility] [place] [facility] [address] [id number] [place] [address] Aug, [facility] [place] [facility] [address] [id number] [place] [address] Aug, [facility] [place] [facility] [address] [id number] [place] [address] Aug, [facility] [place] [facility] [address] [id number] [place] [address] Jul, [facility] [place] [facility] [address] [id number] [place] [address] Jul, [facility] [address] [id number] [place] [address] Jul, [facility] [place] [facility] [address] [id number] [place] [address] Jul, [facility] [address] [id number] [place] [address] Jul, [facility] [place] [facility] [address] [id number] [place] [address] Jul, [facility] [place] [facility] [address] [id number] [place] [address] Jul, [facility] [place] [facility] [address] [id number] [place] [address] Jul, [facility] [place] [facility] [address] [id number] [place] [address] Jul, [facility] [place] [facility] [address] [id number] [place] Jul, [facility] [id number] [address] Jun, [facility] [id number] [address] May, [facility] [address] [address] Apr, [facility] [address] [facility] [id number] [place] [address] Apr, [facility] [address] [id number] [address] Apr, [facility] [address] [address] Mar, [facility] [address] [address] Mar, [facility] [address] [address] Mar, [facility] [address] [address] Mar, [facility] [address] [address] Mar, [facility] [address] [id number] [address] Sep, [facility] [address] [id number] [address] February, [facility] [address] [id number] [address] Jan, IMMUNIZATIONS No Known Immunizations SOCIAL HISTORY Never Assessed REASON FOR VISIT right eye pain et itching et is red. been like this for 2 days. [email or web address] PLAN OF CARE Activity Details Follow Up prn Reason: VITAL SIGNS Height 64 in 2018-03-04 Weight 137.4 lbs 2018-03-04 Temperature 97.8 degrees Fahrenheit 2018-03-04 Heart Rate 76 bpm 2018-03-04 Respiratory Rate 20 2018-03-04 BMI 23.58 kg/m2 2018-03-04 Blood pressure systolic 118 mmHg 2018-03-04 Blood pressure diastolic 68 mmHg 2018-03-04 MEDICATIONS Medication Instructions Dosage Frequency Start Date End Date Duration Status Polyethylene Glycol 3350 17 gm/dose Orally 2 times a day 1 packet mixed with 8 ounces of fluid 12h Active Furosemide 20 MG Orally twice a day 1 tablet 12h Active Cyclobenzaprine HCl 10 mg Orally 2 times a day 1 tablet as needed 12h 25 Jun, 2017 Active Pantoprazole Sodium 40 mg Orally Once a day 1 tablet 24h Active Mirtazapine 30 MG Orally Once a day 1 tablet at bedtime 24h Active Keppra 1000 MG Orally every 12 hrs 1 tablet 12h 90 Active Metoprolol Tartrate 25 MG Orally Twice a day 1 tablet with food 12h Active Meclizine HCl 25 MG TAKE ONE TABLET BY MOUTH EVERY DAY NEEDED FOR DIZZINESS 30 Not-Taking Xarelto 20 MG Orally Once a day 1 tablet with food 24h Active Potassium Chloride ER 20 meq Orally twice a day 1 tablet with food 12h Active Bactrim DS 800-160 MG Orally Twice a day 1 tablet 12h February,February 10 day(s) Active Digoxin 125 MCG TAKE ONE TABLET BY MOUTH EVERY DAY 90 Active Cartia XT 180 MG Orally Once a day 1 capsule 24h Active Oxygen 2 L/NC Not-Taking Prazosin HCl 2 MG Orally Once a day 1 capsule at bedtime 24h Active Albuterol Sulfate HFA 108 (90 Base) MCG/ACT Inhalation every 6 hrs 2 puffs as needed 6h Active Omeprazole 40 MG Orally at bedtime 1 capsule Active Acidophilus - Active Risperdal 1 MG Orally 2 times [...] bleeding 2015 Hospitalization History A fib with [facility] 02/06/17 Hospitalization History Altered mental status, lethargy-[facility] 07/10/17 Hospitalization History Chest pain-[facility] 08/05/17 Hospitalization History [facility] 10/2017 Hospitalization History Low potassium, A fib 01/2018 Hospitalization History Head injury 03/2018
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
--- OUTSIDE RECORDS SUMMARY | 2018-07-13 15:11 | XMS REPORT ---
Author Author FRANCHESKA HEADLEY Organization [facility] [place] Address [address] [place] [address] Care Team Providers Care Radiotelegrapher Name Role Phone FRANCHESKA HEADLEY Unavailable PROBLEMS Type Condition ICD9-CM Code VRJ48-OZ Code Onset Dates Condition Status SNOMED Code Problem Anxiety F41.9 Active 44504432 Problem Seasonal allergic rhinitis, unspecified allergic rhinitis trigger J30.2 Active 230146642 Problem Other chronic pain G89.29 Active 16165766 Problem Chronic fatigue R53.82 Active 91682080 Problem Seizure disorder G40.909 Active 949250626 Problem Unsteady gait R26.81 Active 79744305 Problem Infection of right eye H44.001 Active 22563312498451241 Problem Lumbago with sciatica, left side M54.42 Active 168917841 Problem Chronic pain syndrome G89.4 Active 691633225 Problem Fibromyalgia M79.7 Active 115360520 Problem Atrial fibrillation, unspecified type I48.91 Active 65927266 Problem Esophagitis, reflux K21.0 Active 187049380 Problem Primary insomnia F51.01 Active 473246002 Problem Edema, due to unspecified malnutrition type, unspecified type R60.9 Active 578175371 Problem Polysubstance (excluding opioids) dependence F19.20 Active 97474016 Problem Congestive heart failure, unspecified congestive heart failure chronicity, unspecified congestive heart failure type I50.9 Active 31400694 Problem COPD (chronic obstructive pulmonary disease) with acute bronchitis J44.0 Active 869601673180650 Problem Unspecified mood [affective] disorder F39 Active 206226716 Problem Major depressive disorder, recurrent episode, severe F33.2 Active 088636676074 Problem Lumbago with sciatica, right side M54.41 Active 803653828 ALLERGIES No Information ENCOUNTERS Encounter Location Date Diagnosis [facility] [place] [address] [facility] [id number] [address] May, [facility] [place] [id number] [place] [address] 80156- 6451 Apr, [facility] [place] [address] [address]- [address]8 Apr, Lumbago with sciatica, right side M54.41 ; Chronic pain syndrome G89.4 and Primary insomnia F51.01 [facility] [address] [address] Apr, Acute right ankle pain M25.571 [facility] [address] [address]70 Apr, [facility]ALK IN [facility] [address] 37[address] Apr, Seasonal allergic rhinitis, unspecified trigger J30.2 and Acute right ankle pain M25.571 [place] [address] 72462- 2354 Mar, Primary insomnia F51.01 and Anxiety F41.9 [place] [id number] [place] [address] 58049- 2291 Mar, [place] [id number] [place] [address] 13933- 0321 Mar, [place] [id number] [place] [address] 79887- 7588 Mar, Lumbago with sciatica, left side M54.42 [facility] [place] [id number] [place] [address] 72463- 5501 Mar, [place] [address] 26977- 8317 Mar, Anxiety F41.9 [facility] [place] [id number] [place] [address] 36747- 2634 February, [facility] [place] [address] 63051- 0834 February, Unspecified mood [affective] disorder F39 [facility] [place] [id number] [place] [address] 99559- 4373 February, [place] [id number] [place] [address] 41141- 7535 February, [facility] [id number] [place] [address] 29296 -4513 February, Hordeolum externum of right upper eyelid H00.011 and Paronychia of finger of right hand L03.011 [place] [id number] [place] [address] 23019- 5101 February, [place] [id number] [place] [address] 66146- 1836 February, Primary insomnia F51.01 ; Atrial fibrillation, unspecified type I48.91 ; Unsteady gait R26.81 ; General weakness R53.1 ; Chronic fatigue R53.82 ; Hypokalemia E87.6 and Other chronic pain G89.29 [place] [id number] [place] [address] 31298- 7251 February, [place] [id number] [place] [address] 02747- 1890 Jan, Lumbago with sciatica, right side M54.41 [place] [id number] [place] [address] 83209- 9548 Jan, Anxiety F41.9 ; Chronic pain syndrome G89.4 ; Folliculitis L73.9 and Fibromyalgia M79.7 [place] [id number] [place] [address] 56196- 3811 Jan, Lumbago with sciatica, right side M54.41 [place] [id number] [place] [address] 63438- 2340 Dec, [place] [id number] [place] [address] 11961- 8048 Nov, Lumbago with sciatica, right side M54.41 [place] [id number] [place] [address] 60011- 9414 Nov, [place] [id number] [place] [address] 06584- 1139 Nov, Unspecified mood [affective] disorder F39 ; Hypokalemia E87.6 and Anemia, unspecified type D64.9 [place] [address] 74622- 3939 Nov, [place] [address] 00893- 8066 Oct, Lumbago with sciatica, right side M54.41 [facility] [place] [id number] [place] [address] 73157 -6163 Aug, Congestive heart failure, unspecified congestive heart failure chronicity, unspecified congestive heart failure type I50.9 and Peripheral edema R60.9 [place] [id number] [place] [address] 66281- 8634 17 Aug, 2017 Polysubstance (excluding opioids) dependence F19.20 and Lumbago with sciatica, left side M54.42 [place] [id number] [place] [address] 13217- 2842 17 Aug, 2017 [facility] [place] [id number] [place] [address] 36434 -7273 14 Aug, 2017 Infection of right eye H44.001 [place] [id number] [place] [address] 29913- 7454 14 Aug, 2017 Congestive heart failure, unspecified congestive heart failure chronicity, unspecified congestive heart failure type I50.9 and Other chronic pain G89.29 [place] [id number] [place] [address] 26070- 7856 09 Aug, 2017 Lumbago with sciatica, right side M54.41 [place] [id number] [place] [address] 11923- 5981 Aug, Lumbago with sciatica, right side M54.41 [facility] [place] [id number] [place] [address] 92455- 4390 Aug, [facility] [place] [id number] [place] [address] 80657- 8988 Jul, [facility] [place] [address] 79854- 2719 Jul, COPD (chronic obstructive pulmonary disease) with acute bronchitis J44.0 ; Atrial fibrillation, unspecified type I48.91 ; Polysubstance (excluding opioids) dependence F19.20 ; Congestive heart failure, unspecified congestive heart failure chronicity, unspecified congestive heart failure type I50.9 and Lumbago with sciatica, right side M54.41 [facility] [address] [place] [id number] [place] [address] [id number] Jul, [facility] [place] [id number] [place] [address] 09652- 6918 Jul, Seizure disorder G40.909 [facility] [place] [id number] [place] [address] 28641- 5018 Jul, Lumbago with sciatica, right side M54.41 [facility] [place] [id number] [place] [address] 26303- 6506 Jul, [facility] [place] [id number] [place] [address] 39446- 8578 Jun, Congestive heart failure, unspecified congestive heart failure chronicity, unspecified congestive heart failure type I50.9 ; Lumbago with sciatica, right side M54.41 and Other chronic pain G89.29 [facility] [place] [id number] [place] [address] 77849- 3178 Jun, [facility] [place] [id number] [place] [address] 99894- 6602 Jun, [facility] [place] [id number] [place] [address] 75795- 7820 May, Lumbago with sciatica, left side M54.42 [place] [id number] [place] [address] 69761- 9032 May, [facility] [place] [id number] [place] [address] 32160 -8846 May, Unspecified fall, initial encounter W19.XXXA [place] [id number] [place] [address] 49368- 2807 May, Lumbago with sciatica, right side M54.41 [place] [id number] [place] [address] 41198- 7628 May, [place] [id number] [place] [address] 91322- 8186 May, Bloating R14.0 and Right hip pain M25.551 [place] [id number] [place] [address] 70020- 7686 Apr, [place] [address] 41911- 4313 Apr, Lumbago with sciatica, left side M54.42 [place] [id number] [place] [address] 90906- 1978 Mar, [facility] [id number] [place] [address] 34380 -3372 Mar, Lumbago with sciatica, right side M54.41 [facility] [place] [id number] [place] [address] 59523 -9352 Mar, Abdominal distension R14.0 [place] [id number] [place] [address] 04305- 0607 Mar, Periumbilical abdominal pain R10.33 and Diarrhea, unspecified type R19.7 [facility] [address] 05551 -9479 February, Seasonal allergic rhinitis, unspecified allergic rhinitis trigger J30.2 ; Acute middle ear effusion, bilateral H65.193 and Lumbago with sciatica, right side M54.41 [place] [address] 05984- 9636 February, Routine gynecological examination Z01.419 [place] [address] 60619- 5989 Jan, [place] [address] 06710- 2968 Jan, Atrial fibrillation, unspecified type I48.91 [facility] [address] 17635 -7305 Jan, Lumbago with sciatica, right side M54.41 and Wound, open, toe, initial encounter S91.109[address] [place] [address] [id number] Jan, [facility] IN [facility] [address] 08418 -2186 Jan, Acute bilateral low back pain without sciatica M54.5 [place] [address] 50093- 5804 Dec, Congestive heart failure, unspecified congestive heart failure chronicity, unspecified congestive heart failure type I50.9 [place] [id number] [place] [address] 51588- 3406 Dec, [place] [address] 99949- 2062 Dec, Thrush, oral B37.0 and Lumbago with sciatica, right side M54.41 [place] [address] 23630- 4666 Dec, [place] [address] 43452- 7894 Nov, [facility] [place] [id number] [place] [address] 66214- 3609 Nov, [facility] [place] [id number] [place] [address] 95952- 6390 Oct, Polysubstance (excluding opioids) dependence F19.20 ; Other chronic pain G89.29 and Lumbago with sciatica, right side M54.41 [facility] [place] [id number] [place] [address] 40556- 7955 Oct, [facility] [place] [id number] [place] [address] 95834- 2386 Aug, Lumbago with sciatica, right side M54.41 ; Other chronic pain G89.29 and Anxiety F41.9 [facility] [place] [id number] [place] [address] 02553- 9026 Aug, [facility] [place] [id number] [place] [address] 01326- 2212 Aug, [facility] [place] [id number] [place] [address] 45375- 4586 Aug, [facility] [place] [id number] [place] [address] 60622- 9777 Aug, [facility] [place] [id number] [place] [address] 85956- 4563 Aug, [facility] [place] [id number] [place] [address] 74859- 9373 Aug, [facility] [place] [id number] [place] [address] 65432- 9949 Jul, Unspecified mood [affective] disorder F39 and Seizure disorder G40.909 [facility] [place] [id number] [place] [address] 11886- 0031 Jul, [facility] [place] [id number] [place] [address] 41194- 8323 Jul, [facility] [place] [id number] [place] [address] 52607- 5942 Jul, Unspecified mood [affective] disorder F39 and Seizure disorder G40.909 [facility] [place] [address] [place] [id number] [place] [address] 58891- 8681 Jul, Polysubstance (excluding opioids) dependence F19.20 ; COPD ( chronic obstructive pulmonary disease) with acute bronchitis J44.0 ; Congestive heart failure, unspecified congestive heart failure chronicity, unspecified congestive heart failure type I50.9 ; Radiculopathy of lumbosacral region M54.17 and Radiculopathy, thoracic region M54.14 [place] [address] [id number] [place] [address] 80312- 6577 Jun, Lumbago M54.5 [place] [address] [place] [id number] [place] [address] 70960- 0631 May, [place] [address] [place] [id number] [place] [address] 08322- 7094 May, [place] [address] [place] [id number] [place] [address] 08232- 9182 May, [place] [address] [place] [id number] [place] [address] 87481- 4640 Apr, COPD (chronic obstructive pulmonary disease) with acute bronchitis J44.0 [place] [address] [id number] [place] [address] 50557- 1155 Apr, Major depressive disorder, recurrent episode, severe F33.2 and Polysubstance (excluding opioids) dependence F19.20 [place] [address] [address] [id number] [place] [address] 82954- 5140 Mar, Major depressive disorder, recurrent episode, severe F33.2 and Polysubstance (excluding opioids) dependence F19.20 [place] [address] [id number] [place] [address] 92911- 4933 Mar, Major depressive disorder, recurrent episode, severe F33.2 and Polysubstance (excluding opioids) dependence F19.20 [facility] [place] [id number] [place] [address] 93816- 1257 Mar, Major depressive disorder, recurrent episode, severe F33.2 and Polysubstance (excluding opioids) dependence F19.20 [facility] [place] [address] [place] [id number] [place] [address] 14585- 1737 February, Major depressive disorder, recurrent episode, severe F33.2 and Polysubstance (excluding opioids) dependence F19.20 [facility] [place] [id number] [place] [address] 28811- 9640 February, [place] [address] 98343- 4831 February, COPD (chronic obstructive pulmonary disease) with acute bronchitis J44.0 [facility] [address] 58426 -1416 February, Sore throat J02.9 and Bronchitis J40 [place] [address] [place] [id number] [place] [address] 92392- 3335 Jan, COPD (chronic obstructive pulmonary disease) with acute bronchitis J44.0 [facility] [place] [address] [place] [id number] [place] [address] 14294- 6315 Jan, COPD (chronic obstructive pulmonary disease) with acute bronchitis J44.0 [place] [address] [place] [id number] [place] [address] 62004- 0736 Jan, [facility] [place] [address] [place] [id number] [place] [address] 54417- 7600 Dec, Gastritis K29.70 ; Constipation K59.00 and Lumbago M54.5 [facility] [place] [address] [id number] [place] [address] 46652- 0865 Dec, COPD (chronic obstructive pulmonary disease) with acute bronchitis J44.0 [facility] [place] [address] 35294- 0500 18 Nov, 2015 Major depressive disorder, recurrent episode, severe F33.2 and Polysubstance (excluding opioids) dependence F19.20 [facility] [id number] [place] [address] 03835 -3206 Oct, Oral thrush B37.0 and Drug abuse F19.10 [facility] [place] [address] 41742- 0751 Oct, [facility] [place] [address] 09657- 6655 Sep, COPD (chronic obstructive pulmonary disease) with acute bronchitis J44.0 ; Esophagitis, reflux K21.0 ; Seizure disorder G40.909 ; Primary insomnia F51.01 ; Edema, due to unspecified malnutrition type, unspecified type R60.9 ; Arthritis M19.90 and Thrush B37.0 [facility] [place] [address] 19000- 9739 Aug, [facility] [place] [address] 16767- 4033 Aug, [place] [address] [place] [id number] [place] [address] 17844- 4554 Aug, [facility] [place] [id number] [place] [address] 70670- 2652 Jul, [facility] [place] [address] [id number] [place] [address] 60175- 2876 Jun, [facility] [place] [address] [place] [id number] [place] [address] 25358- 6506 Jun, Counseling on substance use and abuse V65.42 and Obstructive chronic bronchitis, with (acute) exacerbation 491.21 [facility] [place] [address] [place] [id number] [place] [address] 24188- 4563 May, [facility] [place] [address] 94436- 5553 Apr, [facility] [place] [address] [address]- 9430 Apr, Abdominal pain 789.00 and Back pain 724.5 [facility] [place] [id number] [place] [address] 67332- 4757 Mar, Back pain 724.5 and Illicit drug use 305.90 [facility] [place] [address] [place] [id number] [place] [address] 755826- 7770 February, Onychomycosis 110.1 [facility] [place] [address] [place] [id number] [place] [address] 971995- 9465 February, Breast cancer screening V76.10 [facility] [place] [address] [place] [id number] [place] [address] 18036- 8474 February, [facility] [place] [address] [id number] [place] [address] 83460- 2097 February, [facility] [place] [address] [place] [id number] [place] [address] 28289- 4941 February, Cough 786.2 ; Obstructive chronic bronchitis, with (acute) exacerbation 491.21 ; Vomiting 787.03 ; 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 and Gastritis 535.50 [facility] [place] [address] [address]- 9419 Jan, [facility] [place] [address] [address]- 2631 Jan, [facility] [place] [id number] [place] [address] 98794- 5113 Dec, [facility] [place] [id number] [place] [address] 32521- 0579 Dec, [facility] [place] [id number] [place] [address] 13462- 9701 Dec, [facility] [place] [id number] [address] 8093 Dec, [facility] [place] [address] [place] [address]- 6930 13 Dec, 2014 [facility] [address] [id number] [place] [address]- 4804 12 Dec, 2014 [facility] [place] [facility] [address] [id number] [place] [address]- 1505 12 Dec, 2014 [facility] [address] [id number] [place] [address]- 4593 12 Dec, 2014 [facility] [place] [facility] [address] [id number] [place] [address]- 7377 Dec, 2014 [facility] [address] [id number] [place] [address]- 2753 Sep, [facility] [address] [id number] [place] [address]- 1626 Sep, [facility] [address] [id number] [place] [address]- 7886 Sep, [facility] [address] [id number] [place] [address] Sep, [facility] [place] [facility] [address] [id number] [place] [address] Sep, [facility] [address] [id number] [place] [address] Sep, [facility] [place] [facility] [address] [id number] [place] [address] Sep, [facility] [place] [facility] [address] [id number] [place] [address] Sep, [facility] [place] [facility] [address] [id number] [place] [address] Sep, [facility] [place] [facility] [address] [id number] [place] [address] Sep, [facility] [place] [facility] [address] [id number] [place] [address] Aug, [facility] [place] [facility] [address] [id number] [place] [address] Aug, [facility] [place] [facility] [address] [id number] [place] [address] Aug, [facility] [place] [facility] [address] [id number] [place] [address] Aug, [facility] [place] [facility] [address] [id number] [place] [address] Jul, [facility] [place] [facility] [address] [id number] [place] [address] Jul, [facility] [place] [facility] [address] [id number] [place] [address] Jun, [facility] [place] [facility] [address] [id number] [place] [address] Jun, [facility] [place] [facility] [address] [id number] [place] [address] May, [facility] [place] [facility] [address] [id number] [place] [address] May, [facility] [place] [facility] [address] [id number] [place] [address] May, [facility] [place] [facility] [address] [id number] [place] [address] May, [facility] [place] [facility] [address] [id number], [place] [address] May, [facility] [place] [facility] [address] [id number] [place] [address] May, [facility] [place] [facility] [address] [id number] [place] [address] Apr, [facility] [place] [facility] [address] [id number] [place] [address] Apr, [facility] [place] [facility] [address] [id number], [place] [address] Apr, [facility] [address] [id number] [place] [address] Apr, [facility] [place] [facility] [address] [id number] [place] [address] February, [facility] [address] [facility] [id number] [place] [address] February, [facility] [place] [facility] [address] [id number] [place] [address] Oct, [facility] [address] [id number] [place] [address] Oct, [facility] [address] [facility] [id number] [place] [address] Oct, [facility] [address] [facility] [id number] [place] [address] Oct, [facility] [address] [id number] [place] [address] Sep, [facility] [address] [id number] [place] [address] Sep, [facility] [place] [facility] [address] [facility] [id number] [place] [address] Sep, [facility] [address] [id number] [place] [address] Sep, [facility] [place] [facility] [address] [id number], [place] [address] Aug, [facility] [place] [facility] [address] [id number] [place] [address] Aug, [facility] [place] [facility] [address] [facility] [id number], [place] [address] Aug, [facility] [place] [facility] [address] [facility] [id number] [place] [address] Aug, [facility] [place] [facility] [address] [id number] [place] [address] Jul, [facility] [place] [facility] [address] [id number] [place] [address] Jul, [facility] [place] [facility] [address] [id number] [place] [address] Jul, [facility] [place] [facility] [address] [id number] [place] [address] Jul, [facility] [place] [facility] [address] [id number] [place] [address] Jul, [facility] [place] [facility] [address] [id number] [place] [address] Jul, [facility] [place] [facility] [address] [id number] [place] [address] Jul, [facility] [place] [facility] [address] [id number] [place] [address] Jul, [facility] [place] [facility] [address] [id number] [place] [address] Jul, [facility] [place] [facility] [address] [id number] [place] [address] Jul, [facility] [place] [facility] [address] [id number] [place] [address] Jun, [facility] [place] [facility] [address] [id number] [place] [address] May, [facility] [place] [facility] [address] [id number] [place] [address] Apr, [facility] [place] [facility] [address] [id number] [place] [address] Apr, [facility] [place] [facility] [address] [id number] [place] [address] Apr, [facility] [place] [facility] [address] [id number] [place] [address] 29 Mar, 2013 [facility] [place] [address] [id number] [address] 28 Mar, 2013 [facility] [place] [address] [id number], [place] [address] 24 Mar, 2013 [facility] [place] [address] [id number], [place] [address] Mar, [facility] [place] [id number], [place] [address] Mar, [facility] [place] [address] [id number] [address] Sep, [facility] [place] [id number] [address] [address] February, [facility] [place] [address] [id number], [place] [address] Jan, IMMUNIZATIONS No Known Immunizations SOCIAL HISTORY [...] bleeding 2016 Hospitalization History A fib with [facility] 02/06/17 Hospitalization History Altered mental status, lethargy-[facility] 07/10/17 Hospitalization History Chest pain-[facility] 08/05/17 Hospitalization History [facility] 10/2017 Hospitalization History Low potassium, A fib 01/2018 Hospitalization History Head injury 03/2018
--- OUTSIDE RECORDS SUMMARY | 2018-07-13 15:11 | XMS REPORT ---
Author Author FRANCHESKA HEADLEY [facility] Address [address] [place] [address] Care Team Providers Care On Call Pharmacy Technician Name Role Phone FRANCHESKA HEADLEY Unavailable PROBLEMS Type Condition ICD9-CM Code VHR36-ZC Code Onset Dates Condition Status SNOMED Code Problem Anxiety F41.9 Active 56699384 Problem Seasonal allergic rhinitis, unspecified allergic rhinitis trigger J30.2 Active 592874459 Problem Other chronic pain G89.29 Active 66777602 Problem Chronic fatigue R53.82 Active 19452602 Problem Seizure disorder G40.909 Active 408312762 Problem Unsteady gait R26.81 Active 73952382 Problem Infection of right eye H44.001 Active [id number] Problem Lumbago with sciatica, left side M54.42 Active 018400828 Problem Chronic pain syndrome G89.4 Active 987673024 Problem Fibromyalgia M79.7 Active 006273054 Problem Atrial fibrillation, unspecified type I48.91 Active 20535555 Problem Esophagitis, reflux K21.0 Active 795185757 Problem Primary insomnia F51.01 Active 386150442 Problem Edema, due to unspecified malnutrition type, unspecified type R60.9 Active 661279018 Problem Polysubstance (excluding opioids) dependence F19.20 Active 74937515 Problem Congestive heart failure, unspecified congestive heart failure chronicity, unspecified congestive heart failure type I50.9 Active 21774347 Problem COPD (chronic obstructive pulmonary disease) with acute bronchitis J44.0 Active 408227601651167 Problem Unspecified mood [affective] disorder F39 Active 353571510 Problem Major depressive disorder, recurrent episode, severe F33.2 Active 322493414075 Problem Lumbago with sciatica, right side M54.41 Active 157220530 ALLERGIES Substance Reaction Event Type Date Status [...] February, Active ENCOUNTERS Encounter Location Date Diagnosis [place] [id number] [place] [address] 56194- 0484 May, [place] [id number] [place] [address] 34955- 4850 Apr, [place] [address] 91270- 4590 Apr, Lumbago with sciatica, right side M54.41 ; Chronic pain syndrome G89.4 and Primary insomnia F51.01 [facility] [id number] [place] [address] 77958 -6819 Apr, Acute right ankle pain M25.571 [facility] [place] [id number] [place] [address] 03520 -5099 Apr, [facility] [place] [id number] [place] [address] 36657 -8935 Apr, Seasonal allergic rhinitis, unspecified trigger J30.2 and Acute right ankle pain M25.571 [place] [id number] [place] [address] 16580- 5004 Mar, Primary insomnia F51.01 and Anxiety F41.9 [place] [id number] [place] [address] 20596- 9783 Mar, [place] [id number] [place] [address] 56177- 4450 Mar, [place] [id number] [place] [address] 37374- 6666 Mar, Lumbago with sciatica, left side M54.42 [place] [address] [address] Mar, [facility] [id number] [place] [address] 39479- 6969 Mar, Anxiety F41.9 [facility] [id number] [place] [address] 99708- 8559 February, [facility] [id number] [place] [address] 99417- 7912 February, Unspecified mood [affective] disorder F39 [facility] [id number] [place] [address] 26408- 3344 February, [facility] [id number] [place] [address] 38126- 2046 February, [facility] [id number] [place] [address] 41684 -1317 February, Hordeolum externum of right upper eyelid H00.011 and Paronychia of finger of right hand L03.011 [facility] [id number] [place] [address] 48354- 3539 February, [facility] [id number] [place] [address] 77825- 2396 February, Primary insomnia F51.01 ; Atrial fibrillation, unspecified type I48.91 ; Unsteady gait R26.81 ; General weakness R53.1 ; Chronic fatigue R53.82 ; Hypokalemia E87.6 and Other chronic pain G89.29 [facility] [address] [address] 5184 February, [facility] [id number] [place] [address] 10550- 7467 Jan, Lumbago with sciatica, right side M54.41 [facility] [id number] [place] [address] 27148- 1131 Jan, Anxiety F41.9 ; Chronic pain syndrome G89.4 ; Folliculitis L73.9 and Fibromyalgia M79.7 [place] [id number] [place] [address] 91878- 6892 Jan, Lumbago with sciatica, right side M54.41 [place] [id number] [place] [address] 70932- 2298 Dec, [place] [address] 74879- 9391 Nov, Lumbago with sciatica, right side M54.41 [place] [address] 21563- 2470 Nov, [place] [address] 01280- 0999 Nov, Unspecified mood [affective] disorder F39 ; Hypokalemia E87.6 and Anemia, unspecified type D64.9 [place] [address] 55662- 3856 Nov, [place] [address] 69802- 1084 Oct, Lumbago with sciatica, right side M54.41 [facility] [place] [id number] [place] [address] 31107 -2034 Aug, Congestive heart failure, unspecified congestive heart failure chronicity, unspecified congestive heart failure type I50.9 and Peripheral edema R60.9 [place] [id number] [place] [address] 61591- 1141 17 Aug, 2017 Polysubstance (excluding opioids) dependence F19.20 and Lumbago with sciatica, left side M54.42 [place] [id number] [place] [address] 93664- 3578 17 Aug, 2017 [facility] [place] [address] 51878 -2744 Aug, Infection of right eye H44.001 [facility] [id number] [place] [address] 31217- 6029 Aug, Congestive heart failure, unspecified congestive heart failure chronicity, unspecified congestive heart failure type I50.9 and Other chronic pain G89.29 [place] [id number] [place] [address] 68443- 2961 Aug, Lumbago with sciatica, right side M54.41 [place] [id number] [place] [address] 00108- 3964 Aug, Lumbago with sciatica, right side M54.41 [place] [id number] [place] [address] 91320- 0152 Aug, [place] [id number] [place] [address] 14401- 2173 Jul, [place] [address] 50065- 8782 Jul, COPD (chronic obstructive pulmonary disease) with acute bronchitis J44.0 ; Atrial fibrillation, unspecified type I48.91 ; Polysubstance (excluding opioids) dependence F19.20 ; Congestive heart failure, unspecified congestive heart failure chronicity, unspecified congestive heart failure type I50.9 and Lumbago with sciatica, right side M54.41 [facility] [id number] [place] [address] [id number] Jul, [facility] [id number] [place] [address] 62012- 1466 Jul, Seizure disorder G40.909 [place] [id number] [place] [address] 29465- 8156 Jul, Lumbago with sciatica, right side M54.41 [facility] [id number] [place] [address] 69917- 5399 Jul, [facility] [address] 32560- 4930 Jun, Congestive heart failure, unspecified congestive heart failure chronicity, unspecified congestive heart failure type I50.9 ; Lumbago with sciatica, right side M54.41 and Other chronic pain G89.29 [place] [address], [place] [address]- 4949 Jun, [place] [id number] [place] [address] 57838- 2635 Jun, [place] [id number] [place] [address] 32943- 9158 May, Lumbago with sciatica, left side M54.42 [place] [id number] [place] [address] 40743- 6608 May, [facility] [id number] [place] [address] 95751 -4898 May, Unspecified fall, initial encounter W19.XXXA [place] [id number] [place] [address] 71362- 1260 May, Lumbago with sciatica, right side M54.41 [place] [id number] [place] [address] 33707- 9629 May, [place] [id number] [place] [address] 70672- 3004 May, Bloating R14.0 and Right hip pain M25.551 [place] [id number] [place] [address] 04364- 5665 Apr, [place] [id number] [place] [address] 61067- 8115 Apr, Lumbago with sciatica, left side M54.42 [place] [id number] [address]- 1294 Mar, [facility] [id number] [place] [address] 77130 -5431 Mar, Lumbago with sciatica, right side M54.41 [facility] [place] [address] 13185 -3183 Mar, Abdominal distension R14.0 [place] [address] 47970- 4280 Mar, Periumbilical abdominal pain R10.33 and Diarrhea, unspecified type R19.7 [facility] [place] [address] 70382 -4566 February, Seasonal allergic rhinitis, unspecified allergic rhinitis trigger J30.2 ; Acute middle ear effusion, bilateral H65.193 and Lumbago with sciatica, right side M54.41 [place] [address] 76952- 9234 February, Routine gynecological examination Z01.419 [place] [address] 02698- 0961 Jan, [place] [address] 04252- 6808 Jan, Atrial fibrillation, unspecified type I48.91 [facility] [place] [address] 35195 -7349 Jan, Lumbago with sciatica, right side M54.41 and Wound, open, toe, initial encounter S91.109A [place] [address] [id number] Jan, [facility] [place] [address] 11337 -1425 Jan, Acute bilateral low back pain without sciatica M54.5 [place] [address] 37784- 7738 Dec, Congestive heart failure, unspecified congestive heart failure chronicity, unspecified congestive heart failure type I50.9 [place] [address] [place] [address]- 7858 Dec, [facility] [id number] [place] [address] 10736- 0769 Dec, Thrush, oral B37.0 and Lumbago with sciatica, right side M54.41 [facility] [id number] [place] [address] 94540- 8214 Dec, [facility] [address] 09355- 2889 Nov, [facility] [address] 74657- 1393 Nov, [facility] [address] 69783- 9943 Oct, Polysubstance (excluding opioids) dependence F19.20 ; Other chronic pain G89.29 and Lumbago with sciatica, right side M54.41 [facility] [id number] [place] [address] 20604- 6800 Oct, [facility] [id number] [place] [address] 70125- 9182 Aug, Lumbago with sciatica, right side M54.41 ; Other chronic pain G89.29 and Anxiety F41.9 [facility] [id number] [place] [address] 98719- 2054 Aug, [facility] [id number] [place] [address] 19635- 0542 Aug, [facility] [id number] [place] [address] 77827- 1501 Aug, [facility] [id number] [place] [address] 30325- 7031 Aug, [facility] [id number] [place] [address] 73166- 9624 Aug, [facility] [address] [place] [address]- 9095 Aug, [facility] [id number] [place] [address] 31998- 3969 Jul, Unspecified mood [affective] disorder F39 and Seizure disorder G40.909 [facility] [address] [place] [address] 45260- 5981 Jul, [facility] [id number] [place] [address] 02281- 3547 Jul, [facility] [id number] [place] [address] 40931- 6554 Jul, Unspecified mood [affective] disorder F39 and Seizure disorder G40.909 [facility] [id number] [place] [address] 69645- 9350 Jul, Polysubstance (excluding opioids) dependence F19.20 ; COPD ( chronic obstructive pulmonary disease) with acute bronchitis J44.0 ; Congestive heart failure, unspecified congestive heart failure chronicity, unspecified congestive heart failure type I50.9 ; Radiculopathy of lumbosacral region M54.17 and Radiculopathy, thoracic region M54.14 [place] [address] [place] [address] 75365- 2686 Jun, Lumbago M54.5 [facility] [id number] [place] [address] 08101- 7027 May, [facility] [id number] [place] [address] 48739- 7636 May, [facility] [id number] [place] [address] 01239- 0665 May, [facility] [id number] [place] [address] 28449- 9960 Apr, COPD (chronic obstructive pulmonary disease) with acute bronchitis J44.0 [facility] [id number] [place] [address] 48391- 0752 Apr, Major depressive disorder, recurrent episode, severe F33.2 and Polysubstance (excluding opioids) dependence F19.20 [facility] [address] 51239- 0872 Mar, Major depressive disorder, recurrent episode, severe F33.2 and Polysubstance (excluding opioids) dependence F19.20 [facility] [address] 00259- 3160 Mar, Major depressive disorder, recurrent episode, severe F33.2 and Polysubstance (excluding opioids) dependence F19.20 [facility] [address] 57974- 6353 Mar, Major depressive disorder, recurrent episode, severe F33.2 and Polysubstance (excluding opioids) dependence F19.20 [place] [address] 66619- 7638 February, Major depressive disorder, recurrent episode, severe F33.2 and Polysubstance (excluding opioids) dependence F19.20 [facility] [address] 19756- 2288 February, [facility] [address] 75975- 3875 February, COPD (chronic obstructive pulmonary disease) with acute bronchitis J44.0 [facility] [address] 61586 -8675 February, Sore throat J02.9 and Bronchitis J40 [facility] [id number] [place] [address] 41238- 2431 Jan, COPD (chronic obstructive pulmonary disease) with acute bronchitis J44.0 [facility] [address] 92728- 9773 Jan, COPD (chronic obstructive pulmonary disease) with acute bronchitis J44.0 [facility] [address] 32695- 8059 14 Jan, 2016 [facility] [address] 28797- 3336 Dec, Gastritis K29.70 ; Constipation K59.00 and Lumbago M54.5 [facility] [id number] [place] [address] 54808- 8758 Dec, COPD (chronic obstructive pulmonary disease) with acute bronchitis J44.0 [facility] [address] [place] [address] 80897- 6294 18 Nov, 2015 Major depressive disorder, recurrent episode, severe F33.2 and Polysubstance (excluding opioids) dependence F19.20 [facility] [address] 30629 -4589 Oct, Oral thrush B37.0 and Drug abuse F19.[address] 97076- 4746 Oct, [facility] [address] [place] [address] 05647- 0640 Sep, COPD (chronic obstructive pulmonary disease) with acute bronchitis J44.0 ; Esophagitis, reflux K21.0 ; Seizure disorder G40.909 ; Primary insomnia F51.01 ; Edema, due to unspecified malnutrition type, unspecified type R60.9 ; Arthritis M19.90 and Thrush B37.0 [facility] [id number] [place] [address] 15005- 4275 Aug, [facility] [address] 58289- 1092 Aug, [address] 43932- 8413 Aug, [address] 29542- 1206 Jul, [address] 28765- 7365 Jun, [facility] [address] [address]- 9134 Jun, Counseling on substance use and abuse V65.42 and Obstructive chronic bronchitis, with (acute) exacerbation 491.21 [facility] [address]- 1875 May, [facility] [id number] [place] [address] 32121- 4125 Apr, [facility] [id number] [place] [address] 60672- 5075 Apr, Abdominal pain 789.00 and Back pain 724.5 [place] [address] [address] [id number] [place] [address] 15614- 2719 Mar, Back pain 724.5 and Illicit drug use 305.90 [place] [address] [address] [id number] [place] [address] 55385- 9894 February, Onychomycosis 110.1 [place] [address] [address] [id number] [place] [address] 60551- 6599 February, Breast cancer screening V76.10 [place] [address] [place] [address] 87231- 4550 February, [facility] [address] [address]- 3301 February, [facility] [address] [id number] [place] [address] 299201- 4536 February, Cough 786.2 ; Obstructive chronic bronchitis, with (acute) exacerbation 491.21 ; Vomiting 787.03 ; 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 and Gastritis 535.50 [facility] [address]- 6875 Jan, [facility] [address], [place] [address]- 4158 Jan, [facility] [address] [place] [id number] [address]- 1487 24 Dec, 2014 [facility] [address] [id number] [place] [address]- 0899 20 Dec, 2014 [facility] [place] [facility] [address] [id number] [place] [address]- 7167 20 Dec, 2014 [facility] [address] [id number] [place] [address]- 1207 13 Dec, 2014 [facility] [place] [facility] [address] [id number] [place] [address]- 5349 13 Dec, 2014 [facility] [address] [id number] [place] [address]- 3916 12 Dec, 2014 [facility] [place] [facility] [address] [id number] [place] [address] 12 Dec, 2014 [facility] [address] [id number] [place] [address] 12 Dec, 2014 [facility] [address] [id number] [place] [address] 12 Dec, 2014 [facility] [address] [id number] [place] [address] Sep, [facility] [address] [id number] [place] [address] Sep, [facility] [place] [facility] [address] [id number] [place] [address] Sep, [facility] [place] [facility] [address] [id number] [place] [address] Sep, [facility] [place] [facility] [address] [id number] [place] [address] Sep, [facility] [place] [facility] [address] [id number] [place] [address] Sep, [facility] [place] [facility] [address] [id number] [place] [address] Sep, [facility] [place] [facility] [address] [id number] [place] [address] Sep, [facility] [place] [facility] [address] [id number] [place] [address] Sep, [facility] [place] [facility] [address] [id number] [place] [address] Sep, [facility] [place] [facility] [address] [id number] [place] [address] Aug, [facility] [place] [facility] [address] [id number] [place] [address] Aug, [facility] [place] [facility] [address] [id number] [place] [address] Aug, [facility] [place] [facility] [address] [id number] [place] [address] Aug, [facility] [place] [facility] [address] [id number] [place] [address] Jul, [facility] [place] [facility] [address] [id number] [place] [address] Jul, [facility] [place] [facility] [address] [id number] [place] [address] Jun, [facility] [place] [facility] [address] [id number] [place] [address] Jun, [facility] [place] [facility] [address] [id number] [place] [address] May, [facility] [place] [facility] [address] [id number] [place] [address] May, [facility] [place] [facility] [address] [id number] [place] [address] May, [facility] [place] [facility] [address] [id number] [place] [address] May, [facility] [place] [facility] [address] [id number] [place] [address] May, [facility] [place] [facility] [address] [id number] [place] [address] May, [facility] [place] [facility] [address] [id number] [place] [address] Apr, [facility] [place] [facility] [address] [address] [id number] [place] [address] Apr, [facility] [place] [facility] [address] [id number] [place] [address] Apr, [facility] [place] [facility] [address] [id number] [place] [address] Apr, [facility] [place] [facility] [address] [id number] [place] [address] February, [facility] [place] [facility] [address] [id number] [place] [address] February, [facility] [place] [facility] [address] [id number] [place] [address] Oct, [facility] [place] [facility] [address] [id number] [place] [address] Oct, [facility] [place] [facility] [address] [id number] [place] [address] Oct, [facility] [place] [facility] [address] [id number] [place] [address] Oct, [facility] [place] [facility] [address] [id number] [place] [address] Sep, [facility] [place] [facility] [address] [id number] [place] [address] Sep, [facility] [place] [facility] [address] [id number] [place] [address] Sep, [facility] [place] [facility] [address] [id number] [place] [address] Sep, [facility] [place] [facility] [address] [id number] [place] [address] Aug, [facility] [place] [facility] [address] [id number] [place] [address] Aug, [facility] [place] [facility] [address] [id number] [place] Aug, [facility] [place] [facility] [address] [id number] [place] [address] Aug, [facility] [place] [facility] [address] [id number] [place] [address] Jul, [facility] [place] [facility] [address] [id number] [place] [address] Jul, [facility] [place] [facility] [address] [id number] [place] [address] Jul, [facility] [place] [facility] [address] [id number] [place] [address] Jul, [facility] [place] [facility] [address] [id number] [place] [address] Jul, [facility] [place] [facility] [address] [id number] [place] [address] Jul, [facility] [place] [facility] [address] [id number] [place] [address] Jul, [facility] [place] [facility] [address] [id number] [place] [address] Jul, [facility] [place] [facility] [address] [id number] [place] [address] Jul, [facility] [place] [facility] [address] [id number] [place] [address] Jul, [facility] [place] [facility] [address] [id number] [place] [address] Jun, [facility] [place] [facility] [address] [id number] [place] [address] May, [facility] [place] [id number] [place] [address] Apr, [facility] [place] [id number] [address] Apr, [facility] [place] [id number] [address] Apr, [facility] [place] [id number] [place] [address] Mar, [facility] [place] [id number] [place] [address] Mar, [facility] [place] [id number] [place] [address] Mar, [facility] [place] [id number] [place] [address] Mar, [facility] [place] [id number], [place] [address] Mar, [facility] [place] [id number], [place] [address] Sep, [facility] [place] [id number] [place] [address] February, [facility] [place] [id number], [place] [address] Jan, IMMUNIZATIONS Vaccine Route Administration Date Status TORADOL (IM) 60 MG/2ML (UP TO 15 MG) IM Intramuscular February 21, 2018 Administered SOCIAL HISTORY Never Assessed REASON FOR VISIT Hospital f/u-[facility] PLAN OF CARE VITAL SIGNS Height 64 in 2018-02-21 Weight 131 lbs 2018-02-21 Temperature 98.9 degrees Fahrenheit 2018-02-21 Heart Rate 70 bpm 2018-02-21 Respiratory Rate 18 2018-02-21 BMI 22.48 kg/m2 2018-02-21 Blood pressure systolic 114 mmHg 2018-02-21 Blood pressure diastolic 62 mmHg 2018-02-21 MEDICATIONS Medication Instructions Dosage Frequency Start Date End Date Duration Status Digoxin 125 MCG TAKE ONE TABLET BY MOUTH EVERY DAY 90 Active Albuterol Sulfate HFA 108 (90 Base) MCG/ACT Inhalation every 6 hrs 2 puffs as needed 6h Active Oxygen 2 L/NC Not-Taking Prazosin HCl 2 MG Orally Once a day 1 capsule at bedtime 24h Active Cyclobenzaprine HCl 10 mg Orally 2 times a day 1 tablet as needed 12h 25 Jun, 2017 Active Keppra 1000 MG Orally every 12 hrs 1 tablet 12h 90 Active Pantoprazole Sodium 40 mg Orally Once a day 1 tablet 24h Active Xarelto 20 MG Orally Once a day 1 tablet with food 24h Active Cartia XT 180 MG Orally Once a day 1 capsule 24h Active Risperdal 1 MG Orally 2 times a day 1 tablet 12h Jan, 30 day(s ) Active Meclizine HCl 25 MG TAKE ONE TABLET BY MOUTH EVERY DAY NEEDED FOR DIZZINESS 30 Not-Taking Cipro 500 mg Orally every 12 hrs 1 tablet 12h Jan, February, 10 day(s) Active Furosemide 20 MG Orally twice a day 1 tablet 12h Active Acidophilus - Active Mirtazapine 30 MG Orally Once a day 1 tablet at bedtime 24h Active Potassium Chloride ER 20 meq [...] food 12h Active RESULTS No Results PROCEDURES Procedure Date Ordered Result Body Site TORADOL (IM) 60 MG/2ML (UP TO 15 MG) February 21, 2018 THER/PROPH/DIAG INJ, SC/IM February 21, 2018 INSTRUCTIONS MEDICATIONS ADMINISTERED No Known Medications [...] bleeding 2015 Hospitalization History A fib with [facility] 02/06/17 Hospitalization History Altered mental status, lethargy-[facility] 07/10/17 Hospitalization History Chest pain-[facility] 08/05/17 Hospitalization History [facility] 10/2017 Hospitalization History Low potassium, A fib 01/2018 Hospitalization History Head injury 03/2018
--- OUTSIDE RECORDS SUMMARY | 2018-07-13 15:12 | XMS REPORT ---
Author Author FRANCHESKA HEADLEY [facility] [address] Address [address] [place] [address] Care Team Providers Care Rotary Adjuster Name Role Phone FRANCHESKA HEADLEY Unavailable PROBLEMS Type Condition ICD9-CM Code IZP37-UB Code Onset Dates Condition Status SNOMED Code Problem Anxiety F41.9 Active 34241697 Problem Seasonal allergic rhinitis, unspecified allergic rhinitis trigger J30.2 Active 330823733 Problem Other chronic pain G89.29 Active 16109606 Problem Chronic fatigue R53.82 Active 12776933 Problem Seizure disorder G40.909 Active 894993934 Problem Unsteady gait R26.81 Active 73464217 Problem Infection of right eye H44.001 Active [id number] Problem Lumbago with sciatica, left side M54.42 Active 226950636 Problem Chronic pain syndrome G89.4 Active 427962649 Problem Fibromyalgia M79.7 Active 001848133 Problem Atrial fibrillation, unspecified type I48.91 Active 83772373 Problem Esophagitis, reflux K21.0 Active 888182531 Problem Primary insomnia F51.01 Active 074238107 Problem Edema, due to unspecified malnutrition type, unspecified type R60.9 Active 470429753 Problem Polysubstance (excluding opioids) dependence F19.20 Active 79962646 Problem Congestive heart failure, unspecified congestive heart failure chronicity, unspecified congestive heart failure type I50.9 Active 14539086 Problem COPD (chronic obstructive pulmonary disease) with acute bronchitis J44.0 Active [id number] Problem Unspecified mood [affective] disorder F39 Active 678890032 Problem Major depressive disorder, recurrent episode, severe F33.2 Active 399885146692 Problem Lumbago with sciatica, right side M54.41 Active 041073279 ALLERGIES Substance Reaction Event Type Date Status Saphris Unknown Drug Allergy Jan, Active Tylenol/Codeine #3 Unknown Drug Allergy Jan, Active Phenergan Unknown Drug Allergy Jan, Active Keflex Unknown Drug Allergy Jan, Active Inapsine Unknown Drug Allergy Jan, Active Geodon Unknown Drug Allergy Jan, Active Erythromycin Unknown Drug Allergy Jan, Active Darvocet-N 50 Unknown Drug Allergy Jan, Active Compazine Unknown Drug Allergy Jan, Active Cephalexin Unknown Drug Allergy Jan, Active Bactrim Unknown Drug Allergy Jan, Active ENCOUNTERS Encounter Location Date Diagnosis [place] [id number] [place] [address] 91164- 4193 May, [place] [id number] [place] [address] 75796- 3395 Apr, [place] [id number] [place] [address] 29011- 0245 Apr, Lumbago with sciatica, right side M54.41 ; Chronic pain syndrome G89.4 and Primary insomnia F51.01 [facility] [id number] [place] [address] 73789 -6855 Apr, Acute right ankle pain M25.571 [facility] [id number] [place] [address] 27244 -6197 Apr, [facility] [place] [id number] [place] [address] 02269 -6927 Apr, Seasonal allergic rhinitis, unspecified trigger J30.2 and Acute right ankle pain M25.571 [place] [id number] [place] [address] 72834- 4041 Mar, Primary insomnia F51.01 and Anxiety F41.9 [place] [id number] [place] [address] 15124- 3862 Mar, [place] [id number] [place] [address] 86955- 4379 Mar, [place] [id number] [place] [address] 37025- 9522 Mar, Lumbago with sciatica, left side M54.42 [place] [id number], [place] [address] 4209 Mar, [facility] [id number] [place] [address] 68731- 0268 Mar, Anxiety F41.9 [facility] [id number] [place] [address] 56639- 7032 February, [facility] [id number] [place] [address] 59547- 5309 February, Unspecified mood [affective] disorder F39 [facility] [id number] [place] [address] 89613- 8679 February, [facility] [id number] [place] [address] 69710- 5000 February, [facility] [id number] [place] [address] 83990 -5801 February, Hordeolum externum of right upper eyelid H00.011 and Paronychia of finger of right hand L03.011 [facility] [id number] [place] [address] 50664- 8588 February, [facility] [id number] [place] [address] 04368- 4070 February, Primary insomnia F51.01 ; Atrial fibrillation, unspecified type I48.91 ; Unsteady gait R26.81 ; General weakness R53.1 ; Chronic fatigue R53.82 ; Hypokalemia E87.6 and Other chronic pain G89.29 [facility] [address], [place] [address] 2383 February, [facility] [id number] [place] [address] 11783- 5215 Jan, Lumbago with sciatica, right side M54.41 [facility] [id number] [place] [address] 85096- 0695 Jan, Anxiety F41.9 ; Chronic pain syndrome G89.4 ; Folliculitis L73.9 and Fibromyalgia M79.7 [place] [id number] [place] [address] 11093- 8012 Jan, Lumbago with sciatica, right side M54.41 [place] [id number] [place] [address] 58668- 8614 Dec, [place] [address] 73771- 2077 Nov, Lumbago with sciatica, right side M54.41 [place] [address] 82523- 0162 Nov, [place] [address] 06952- 7265 Nov, Unspecified mood [affective] disorder F39 ; Hypokalemia E87.6 and Anemia, unspecified type D64.9 [place] [address] 11692- 0824 Nov, [place] [address] 08962- 1325 Oct, Lumbago with sciatica, right side M54.41 [facility] [place] [id number] [place] [address] 04033 -0656 Aug, Congestive heart failure, unspecified congestive heart failure chronicity, unspecified congestive heart failure type I50.9 and Peripheral edema R60.9 [place] [id number] [place] [address] 72098- 8046 17 Aug, 2017 Polysubstance (excluding opioids) dependence F19.20 and Lumbago with sciatica, left side M54.42 [place] [id number] [place] [address] 91839- 3210 17 Aug, 2017 [facility] [place] [address] 40476 -0553 Aug, Infection of right eye H44.001 [facility] [id number] [place] [address] 48186- 3852 Aug, Congestive heart failure, unspecified congestive heart failure chronicity, unspecified congestive heart failure type I50.9 and Other chronic pain G89.29 [place] [id number] [place] [address] 48542- 7154 Aug, Lumbago with sciatica, right side M54.41 [place] [id number] [place] [address] 22904- 2132 Aug, Lumbago with sciatica, right side M54.41 [place] [id number] [place] [address] 61677- 2948 Aug, [place] [id number] [place] [address] 40290- 4129 Jul, [place] [address] 13729- 3261 Jul, COPD (chronic obstructive pulmonary disease) with acute bronchitis J44.0 ; Atrial fibrillation, unspecified type I48.91 ; Polysubstance (excluding opioids) dependence F19.20 ; Congestive heart failure, unspecified congestive heart failure chronicity, unspecified congestive heart failure type I50.9 and Lumbago with sciatica, right side M54.41 [facility] [id number] [place] [address] [id number] Jul, [facility] [id number] [place] [address] 37910- 9153 Jul, Seizure disorder G40.909 [place] [id number] [place] [address] 43071- 1088 Jul, Lumbago with sciatica, right side M54.41 [facility] [id number] [place] [address] 55833- 3467 Jul, [facility] [address] 27952- 7694 Jun, Congestive heart failure, unspecified congestive heart failure chronicity, unspecified congestive heart failure type I50.9 ; Lumbago with sciatica, right side M54.41 and Other chronic pain G89.29 [place] [address], [place] [address]- 2531 Jun, [place] [id number] [place] [address] 99313- 4448 Jun, [place] [id number] [place] [address] 28318- 9903 May, Lumbago with sciatica, left side M54.42 [place] [id number] [place] [address] 13011- 8339 May, [facility] [id number] [place] [address] 02557 -1713 May, Unspecified fall, initial encounter W19.XXXA [place] [id number] [place] [address] 27118- 3707 May, Lumbago with sciatica, right side M54.41 [place] [id number] [place] [address] 07145- 6437 May, [place] [id number] [place] [address] 93993- 1270 May, Bloating R14.0 and Right hip pain M25.551 [place] [id number] [place] [address] 10517- 1457 Apr, [place] [id number] [place] [address] 44134- 4806 Apr, Lumbago with sciatica, left side M54.42 [place] [address] [place] [address]- 8285 Mar, [facility] [id number] [place] [address] 50722 -2654 Mar, Lumbago with sciatica, right side M54.41 [facility] [place] [address] 00403 -9635 Mar, Abdominal distension R14.0 [place] [address] 40649- 5151 Mar, Periumbilical abdominal pain R10.33 and Diarrhea, unspecified type R19.7 [facility] [place] [address] 66827 -8097 February, Seasonal allergic rhinitis, unspecified allergic rhinitis trigger J30.2 ; Acute middle ear effusion, bilateral H65.193 and Lumbago with sciatica, right side M54.41 [place] [address] 82271- 6878 February, Routine gynecological examination Z01.419 [place] [address] 58199- 1709 Jan, [place] [address] 22746- 9160 Jan, Atrial fibrillation, unspecified type I48.91 [facility] [place] [address] 64494 -7642 Jan, Lumbago with sciatica, right side M54.41 and Wound, open, toe, initial encounter S91.109A [place] [address] [id number] Jan, [facility] [place] [address] 74208 -4675 Jan, Acute bilateral low back pain without sciatica M54.5 [place] [address] 28012- 5319 Dec, Congestive heart failure, unspecified congestive heart failure chronicity, unspecified congestive heart failure type I50.9 [place] [address] [place] [address]- 3350 Dec, [facility] [id number] [place] [address] 29842- 4971 Dec, Thrush, oral B37.0 and Lumbago with sciatica, right side M54.41 [facility] [id number] [place] [address] 43647- 6838 Dec, [facility] [address] 46195- 5918 Nov, [facility] [address] 19018- 0228 Nov, [facility] [address] 42418- 5296 Oct, Polysubstance (excluding opioids) dependence F19.20 ; Other chronic pain G89.29 and Lumbago with sciatica, right side M54.41 [facility] [id number] [place] [address] 87729- 7344 Oct, [facility] [id number] [place] [address] 92906- 6090 Aug, Lumbago with sciatica, right side M54.41 ; Other chronic pain G89.29 and Anxiety F41.9 [facility] [id number] [place] [address] 73302- 8424 Aug, [facility] [id number] [place] [address] 58507- 6248 Aug, [facility] [id number] [place] [address] 42918- 9160 Aug, [facility] [id number] [place] [address] 50586- 6087 Aug, [facility] [id number] [place] [address] 88370- 7368 Aug, [facility] [address] [place] [address]- 7825 Aug, [facility] [id number] [place] [address] 60677- 1673 Jul, Unspecified mood [affective] disorder F39 and Seizure disorder G40.909 [facility] [id number] [place] [address] 27411- 1339 Jul, [facility] [id number] [place] [address] 11780- 7581 Jul, [facility] [id number] [place] [address] 95978- 0493 Jul, Unspecified mood [affective] disorder F39 and Seizure disorder G40.909 [facility] [id number] [place] [address] 19080- 1034 Jul, Polysubstance (excluding opioids) dependence F19.20 ; COPD ( chronic obstructive pulmonary disease) with acute bronchitis J44.0 ; Congestive heart failure, unspecified congestive heart failure chronicity, unspecified congestive heart failure type I50.9 ; Radiculopathy of lumbosacral region M54.17 and Radiculopathy, thoracic region M54.14 [place] [address] [place] [address] 85304- 4440 Jun, Lumbago M54.5 [facility] [id number] [place] [address] 32354- 4321 May, [facility] [id number] [place] [address] 67433- 4766 May, [facility] [id number] [place] [address] 67526- 8894 May, [facility] [id number] [place] [address] 28455- 2941 Apr, COPD (chronic obstructive pulmonary disease) with acute bronchitis J44.0 [facility] [id number] [place] [address] 82512- 3258 Apr, Major depressive disorder, recurrent episode, severe F33.2 and Polysubstance (excluding opioids) dependence F19.20 [facility] [address] 81790- 5083 Mar, Major depressive disorder, recurrent episode, severe F33.2 and Polysubstance (excluding opioids) dependence F19.20 [facility] [address] 36335- 4742 Mar, Major depressive disorder, recurrent episode, severe F33.2 and Polysubstance (excluding opioids) dependence F19.20 [facility] [address] 02377- 0003 Mar, Major depressive disorder, recurrent episode, severe F33.2 and Polysubstance (excluding opioids) dependence F19.20 [place] [address] 46656- 5703 February, Major depressive disorder, recurrent episode, severe F33.2 and Polysubstance (excluding opioids) dependence F19.20 [facility] [address] 26076- 5601 February, [facility] [address] 97031- 3828 February, COPD (chronic obstructive pulmonary disease) with acute bronchitis J44.0 [facility] [address] 44005 -4876 February, Sore throat J02.9 and Bronchitis J40 [facility] [id number] [place] [address] 04921- 1211 Jan, COPD (chronic obstructive pulmonary disease) with acute bronchitis J44.0 [facility] [address] 79817- 7006 Jan, COPD (chronic obstructive pulmonary disease) with acute bronchitis J44.0 [facility] [address] 91781- 8880 14 Jan, 2016 [facility] [address] 17712- 0790 Dec, Gastritis K29.70 ; Constipation K59.00 and Lumbago M54.5 [facility] [id number] [place] [address] 73120- 7782 Dec, COPD (chronic obstructive pulmonary disease) with acute bronchitis J44.0 [facility] [address] [place] [address] 05726- 5688 18 Nov, 2015 Major depressive disorder, recurrent episode, severe F33.2 and Polysubstance (excluding opioids) dependence F19.20 [facility] [address] 44410 -9468 Oct, Oral thrush B37.0 and Drug abuse F19.[address] 54970- 6973 Oct, [facility] [address] [place] [address] 57308- 6135 Sep, COPD (chronic obstructive pulmonary disease) with acute bronchitis J44.0 ; Esophagitis, reflux K21.0 ; Seizure disorder G40.909 ; Primary insomnia F51.01 ; Edema, due to unspecified malnutrition type, unspecified type R60.9 ; Arthritis M19.90 and Thrush B37.0 [facility] [id number] [place] [address] 71363- 3033 Aug, [facility] [address] 94113- 8967 Aug, [address] 56972- 5579 Aug, [address] 88541- 7498 Jul, [address] 01262- 3401 Jun, [facility] [address], [place] [address]- 7938 Jun, Counseling on substance use and abuse V65.42 and Obstructive chronic bronchitis, with (acute) exacerbation 491.21 [facility] [address]- 4442 May, [facility] [id number] [place] [address] 41273- 3940 Apr, [facility] [id number] [place] [address] 04226- 3400 Apr, Abdominal pain 789.00 and Back pain 724.5 [place] [id number] [place] [address] 12045- 0447 Mar, Back pain 724.5 and Illicit drug use 305.90 [place] [id number] [place] [address] 91900- 8301 February, Onychomycosis 110.1 [place] [id number] [place] [address] 29296- 1300 February, Breast cancer screening V76.10 [place] [address] [place] [address] 26644- 3070 February, [facility] [address], [place] [address]- 0794 February, [facility] [id number] [place] [address] 051259- 8859 February, Cough 786.2 ; Obstructive chronic bronchitis, with (acute) exacerbation 491.21 ; Vomiting 787.03 ; 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 [address]- 0743 24 Dec, 2014 [facility] [address] [id number] [place] [address]- 3896 20 Dec, 2014 [facility] [place] [facility] [address] [id number] [place] [address]- 2066 20 Dec, 2014 [facility] [address] [id number] [place] [address]- 6626 13 Dec, 2014 [facility] [place] [facility] [address] [id number] [place] [address]- 7286 13 Dec, 2014 [facility] [address] [id number] [place] [address]- 5544 12 Dec, 2014 [facility] [place] [facility] [address] [id number] [place] [address]- 4409 12 Dec, 2014 [facility] [address] [id number] [place] [address]- 4728 12 Dec, 2014 [facility] [address] [id number] [place] [address]- 7858 12 Dec, 2014 [facility] [address] [id number] [place] [address]- 5966 Sep, [facility] [address] [id number] [place] [address]- 5165 Sep, [facility] [place] [facility] [address] [id number] [place] [address]- 2963 Sep, [facility] [place] [facility] [address] [id number] [place] [address]- 0559 Sep, [facility] [place] [facility] [address] [id number] [place] [address] Sep, [facility] [place] [facility] [address] [id number] [place] [address] Sep, [facility] [place] [facility] [address] [id number] [place] [address] Sep, [facility] [place] [facility] [address] [id number] [place] [address] Sep, [facility] [place] [facility] [address] [id number] [place] [address] Sep, [facility] [place] [facility] [address] [id number] [place] [address] Sep, [facility] [place] [facility] [address] [id number] [place] [address] Aug, [facility] [place] [facility] [address] [id number] [place] [address] Aug, [facility] [place] [facility] [address] [id number] [place] [address] Aug, [facility] [place] [facility] [address] [id number] [place] [address] Aug, [facility] [place] [facility] [address] [id number] [place] [address] Jul, [facility] [place] [facility] [address] [id number] [place] [address] Jul, [facility] [place] [facility] [address] [id number] [place] [address] Jun, [facility] [place] [facility] [address] [id number] [place] [address] Jun, [facility] [place] [facility] [address] [id number] [place] [address] May, [facility] [place] [facility] [address] [id number] [place] [address] May, [facility] [place] [facility] [address] [id number] [place] [address] May, [facility] [place] [facility] [address] [id number] [place] [address] May, [facility] [place] [facility] [address] [id number] [place] [address] May, [facility] [place] [facility] [address] [id number] [place] [address] May, [facility] [place] [facility] [address] [id number] [place] [address] Apr, [facility] [place] [facility] [address] [id number] [place] [address] Apr, [facility] [place] [facility] [address] [id number] [place] [address] Apr, [facility] [place] [facility] [address] [id number] [place] [address] Apr, [facility] [place] [facility] [address] [id number] [place] [address] February, [facility] [place] [facility] [address] [id number] [place] [address] February, [facility] [place] [facility] [address] [id number] [place] [address] Oct, [facility] [place] [facility] [address] [id number] [place] [address] Oct, [facility] [place] [facility] [address] [id number] [place] [address] Oct, [facility] [place] [facility] [address] [id number] [place] [address] Oct, [facility] [place] [facility] [address] [id number] [place] [address] Sep, [facility] [place] [facility] [address] [id number] [place] [address] Sep, [facility] [place] [facility] [address] [id number] [place] [address] Sep, [facility] [place] [facility] [address] [id number] [place] [address] Sep, [facility] [place] [facility] [address] [id number] [place] [address] Aug, [facility] [place] [facility] [address] [id number] [place] [address] Aug, [facility] [place] [facility] [address] [id number] [place] [address] Aug, [facility] [place] [facility] [address] [id number] [place] [address] Aug, [facility] [place] [facility] [address] [id number] [place] [address] Jul, [facility] [place] [facility] [address] [id number] [place] [address] Jul, [facility] [place] [facility] [address] [id number] [place] [address] Jul, [facility] [place] [facility] [address] [id number] [place] [address] Jul, [facility] [place] [facility] [address] [id number] [place] [address] Jul, [facility] [place] [facility] [address] [id number] [place] [address] Jul, [facility] [place] [facility] [address] [id number] [place] [address] Jul, [facility] [place] [facility] [address] [id number] [place] [address] Jul, [facility] [place] [facility] [address] [id number] [place] [address] Jul, [facility] [place] [facility] [address] [id number] [place] [address] Jul, [facility] [place] [facility] [address] [id number] [place] [address] Jun, [facility] [place] [facility] [address] [id number] [place] [address] May, [facility] [id number], [place] [address] Apr, [facility] [address] [address] Apr, [facility] [address], [place] [address] Apr, [facility] [id number], [place] [address] Mar, [facility] [id number], [place] [address] Mar, [facility] [id number] [place] [address] Mar, [facility] [id number] [address] Mar, [facility] [id number], [place] [address] Mar, [facility] [id number], [place] [address] Sep, [facility] [id number], [place] [address] February, [facility] [id number] [address] Jan, IMMUNIZATIONS Vaccine Route Administration Date Status TORADOL (IM) 60 MG/2ML (UP TO 15 MG) IM Intramuscular February 18, 2018 Administered SOCIAL HISTORY Never Assessed REASON FOR VISIT toridal injection PLAN OF CARE VITAL SIGNS MEDICATIONS Unknown Medications RESULTS No Results PROCEDURES Procedure Date Ordered Result Body Site TORADOL (IM) 60 MG/2ML (UP TO 15 MG) February 18, 2018 THER/PROPH/DIAG INJ, SC/IM February 18, 2018 INSTRUCTIONS MEDICATIONS ADMINISTERED No Known Medications [...] bleeding 2015 Hospitalization History A fib with [facility] 02/06/17 Hospitalization History Altered mental status, lethargy-[facility] 07/10/17 Hospitalization History Chest pain-[facility] 08/05/17 Hospitalization History [facility] 10/2017 Hospitalization History Low potassium, A fib 01/2018 Hospitalization History Head injury 03/2018
--- OUTSIDE RECORDS SUMMARY | 2018-07-13 15:12 | XMS REPORT ---
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 Name Role Phone FRANCHESKA HEADLEY Unavailable PROBLEMS Type Condition ICD9-CM Code HPD61-XU Code Onset Dates Condition Status SNOMED Code Problem Anxiety F41.9 Active 65233286 Problem Seasonal allergic rhinitis, unspecified allergic rhinitis trigger J30.2 Active 203567154 Problem Other chronic pain G89.29 Active 53162226 Problem Chronic fatigue R53.82 Active 84216028 Problem Seizure disorder G40.909 Active 134385037 Problem Unsteady gait R26.81 Active 54269843 Problem Infection of right eye H44.001 Active [id number] Problem Lumbago with sciatica, left side M54.42 Active 731034861 Problem Chronic pain syndrome G89.4 Active 800818238 Problem Fibromyalgia M79.7 Active 658995533 Problem Atrial fibrillation, unspecified type I48.91 Active 56509607 Problem Esophagitis, reflux K21.0 Active 513489857 Problem Primary insomnia F51.01 Active 807863171 Problem Edema, due to unspecified malnutrition type, unspecified type R60.9 Active 402208882 Problem Polysubstance (excluding opioids) dependence F19.20 Active 37547693 Problem Congestive heart failure, unspecified congestive heart failure chronicity, unspecified congestive heart failure type I50.9 Active 25907207 Problem COPD (chronic obstructive pulmonary disease) with acute bronchitis J44.0 Active 788621712463546 Problem Unspecified mood [affective] disorder F39 Active 221486231 Problem Major depressive disorder, recurrent episode, severe F33.2 Active 210528558673 Problem Lumbago with sciatica, right side M54.41 Active 117642541 ALLERGIES Substance Reaction Event Type Date Status [...] Jan, Active ENCOUNTERS Encounter Location Date Diagnosis [place] [id number] [place] [address] 45151- 3593 May, [facility], [place] [id number] [place] [address] 60160- 0908 Apr, [place] [address] 22674- 3724 Apr, Lumbago with sciatica, right side M54.41 ; Chronic pain syndrome G89.4 and Primary insomnia F51.01 [facility] [id number] [place] [address] 43616 -9741 Apr, Acute right ankle pain M25.571 [facility] [id number] [place] [address] 80420 -8168 Apr, [facility] [id number] [place] [address] 77594 -2281 Apr, Seasonal allergic rhinitis, unspecified trigger J30.2 and Acute right ankle pain M25.571 [place] [id number] [place] [address] 74127- 4000 Mar, Primary insomnia F51.01 and Anxiety F41.9 [place] [id number] [place] [address] 35696- 1641 Mar, [place] [id number] [place] [address] 44011- 2997 Mar, [place] [id number] [place] [address] 43563- 8532 Mar, Lumbago with sciatica, left side M54.42 [place] [address], [place] [address] 4201 Mar, [facility], [place] [id number] [place] [address] 41457- 1163 Mar, Anxiety F41.9 [facility], [place] [id number] [place] [address] 77378- 3283 February, [facility], [place] [id number] [place] [address] 23057- 9316 February, Unspecified mood [affective] disorder F39 [facility], [place] [id number] [place] [address] 31056- 7858 February, [facility], [place] [id number] [place] [address] 15590- 1945 February, [facility] [id number] [place] [address] 59672 -2156 February, Hordeolum externum of right upper eyelid H00.011 and Paronychia of finger of right hand L03.011 [facility], [place] [id number] [place] [address] 80607- 6532 February, [facility], [place] [id number] [place] [address] 14587- 8515 February, Primary insomnia F51.01 ; Atrial fibrillation, unspecified type I48.91 ; Unsteady gait R26.81 ; General weakness R53.1 ; Chronic fatigue R53.82 ; Hypokalemia E87.6 and Other chronic pain G89.29 [facility], [place] [address] [address]- 0209 February, [facility], [place] [id number] [place] [address] 50174- 6508 Jan, Lumbago with sciatica, right side M54.41 [facility], [place] [id number] [place] [address] 94662- 4490 Jan, Anxiety F41.9 ; Chronic pain syndrome G89.4 ; Folliculitis L73.9 and Fibromyalgia M79.7 [place] [id number] [place] [address] 07166- 0342 Jan, Lumbago with sciatica, right side M54.41 [place] [id number] [place] [address] 43016- 8945 Dec, [place] [address] 85658- 8211 Nov, Lumbago with sciatica, right side M54.41 [place] [address] 37208- 9904 Nov, [place] [address] 11068- 1216 Nov, Unspecified mood [affective] disorder F39 ; Hypokalemia E87.6 and Anemia, unspecified type D64.9 [place] [address] 10243- 5221 Nov, [place] [address] 86531- 7658 Oct, Lumbago with sciatica, right side M54.41 [facility] [place] [id number] [place] [address] 49816 -9648 Aug, Congestive heart failure, unspecified congestive heart failure chronicity, unspecified congestive heart failure type I50.9 and Peripheral edema R60.9 [place] [id number] [place] [address] 78183- 2669 17 Aug, 2017 Polysubstance (excluding opioids) dependence F19.20 and Lumbago with sciatica, left side M54.42 [place] [id number] [place] [address] 72579- 3858 17 Aug, 2017 [facility] [place] [address] 21446 -8010 Aug, Infection of right eye H44.001 [facility], [place] [id number] [place] [address] 68329- 0826 Aug, Congestive heart failure, unspecified congestive heart failure chronicity, unspecified congestive heart failure type I50.9 and Other chronic pain G89.29 [place] [id number] [place] [address] 75782- 0022 Aug, Lumbago with sciatica, right side M54.41 [place] [id number] [place] [address] 76339- 1871 Aug, Lumbago with sciatica, right side M54.41 [place] [id number] [place] [address] 62504- 5881 Aug, [place] [id number] [place] [address] 55398- 9931 Jul, [place] [address] 91331- 9129 Jul, COPD (chronic obstructive pulmonary disease) with acute bronchitis J44.0 ; Atrial fibrillation, unspecified type I48.91 ; Polysubstance (excluding opioids) dependence F19.20 ; Congestive heart failure, unspecified congestive heart failure chronicity, unspecified congestive heart failure type I50.9 and Lumbago with sciatica, right side M54.41 [facility] [id number] [place] [address] [id number] Jul, [facility], [place] [id number] [place] [address] 13728- 7993 Jul, Seizure disorder G40.909 [place] [id number] [place] [address] 68971- 1075 Jul, Lumbago with sciatica, right side M54.41 [facility], [place] [id number] [place] [address] 22342- 9697 Jul, [facility], [place] [address] 15603- 8788 Jun, Congestive heart failure, unspecified congestive heart failure chronicity, unspecified congestive heart failure type I50.9 ; Lumbago with sciatica, right side M54.41 and Other chronic pain G89.29 [place] [address], [place] [address]- 5324 Jun, [place] [id number] [place] [address] 28792- 6391 Jun, [place] [id number] [place] [address] 41732- 3677 May, Lumbago with sciatica, left side M54.42 [place] [id number] [place] [address] 27152- 6530 May, [facility] [id number] [place] [address] 65730 -1379 May, Unspecified fall, initial encounter W19.XXXA [place] [id number] [place] [address] 17749- 2159 May, Lumbago with sciatica, right side M54.41 [place] [id number] [place] [address] 92990- 3724 May, [place] [id number] [place] [address] 86945- 8538 May, Bloating R14.0 and Right hip pain M25.551 [place] [id number] [place] [address] 72391- 6832 Apr, [place] [id number] [place] [address] 47914- 3965 Apr, Lumbago with sciatica, left side M54.42 [place] [address] [place] [address]- 7368 Mar, [facility] [id number] [place] [address] 25826 -5436 Mar, Lumbago with sciatica, right side M54.41 [facility] [place] [address] 28010 -8413 Mar, Abdominal distension R14.0 [place] [address] 65732- 1966 Mar, Periumbilical abdominal pain R10.33 and Diarrhea, unspecified type R19.7 [facility] [place] [address] 48104 -9948 February, Seasonal allergic rhinitis, unspecified allergic rhinitis trigger J30.2 ; Acute middle ear effusion, bilateral H65.193 and Lumbago with sciatica, right side M54.41 [place] [address] 21831- 6180 February, Routine gynecological examination Z01.419 [place] [address] 44364- 1616 Jan, [place] [address] 77763- 6763 Jan, Atrial fibrillation, unspecified type I48.91 [facility] IN [place] [address] 46869 -6282 Jan, Lumbago with sciatica, right side M54.41 and Wound, open, toe, initial encounter S91.109A [place] [address] [id number] Jan, [facility] IN [place] [address] 09181 -8304 Jan, Acute bilateral low back pain without sciatica M54.5 [place] [address] 73491- 8966 Dec, Congestive heart failure, unspecified congestive heart failure chronicity, unspecified congestive heart failure type I50.9 [place] [address] [place] [address]- 5451 Dec, [facility], [place] [id number] [place] [address] 01334- 8246 Dec, Thrush, oral B37.0 and Lumbago with sciatica, right side M54.41 [facility], [place] [id number] [place] [address] 47023- 0757 Dec, [facility], [place] [address] 69508- 9757 Nov, [facility], [place] [address] 11072- 6595 Nov, [facility], [place] [address] 59810- 2233 Oct, Polysubstance (excluding opioids) dependence F19.20 ; Other chronic pain G89.29 and Lumbago with sciatica, right side M54.41 [facility], [place] [id number] [place] [address] 00342- 1273 Oct, [facility], [place] [id number] [place] [address] 81132- 0024 Aug, Lumbago with sciatica, right side M54.41 ; Other chronic pain G89.29 and Anxiety F41.9 [facility], [place] [id number] [place] [address] 10462- 2581 Aug, [facility], [place] [id number] [place] [address] 61936- 6001 Aug, [facility], [place] [id number] [place] [address] 34663- 7677 Aug, [facility], [place] [id number] [place] [address] 16923- 9468 Aug, [facility], [place] [id number] [place] [address] 66152- 5902 Aug, [facility], [place] [address] [place] [address]- 8578 Aug, [facility], [place] [id number] [place] [address] 15991- 0082 Jul, Unspecified mood [affective] disorder F39 and Seizure disorder G40.909 [facility], [place] [address] [place] [address] 36709- 4938 Jul, [facility], [place] [id number] [place] [address] 98225- 3581 Jul, [facility], [place] [id number] [place] [address] 43609- 2141 Jul, Unspecified mood [affective] disorder F39 and Seizure disorder G40.909 [facility], [place] [id number] [place] [address] 00501- 2641 Jul, Polysubstance (excluding opioids) dependence F19.20 ; COPD ( chronic obstructive pulmonary disease) with acute bronchitis J44.0 ; Congestive heart failure, unspecified congestive heart failure chronicity, unspecified congestive heart failure type I50.9 ; Radiculopathy of lumbosacral region M54.17 and Radiculopathy, thoracic region M54.14 [place] [address] [place] [address] 68980- 3712 Jun, Lumbago M54.5 [facility], [place] [id number] [place] [address] 07379- 2479 May, [facility], [place] [id number] [place] [address] 51481- 5557 May, [facility], [place] [id number] [place] [address] 92219- 5589 May, [facility], [place] [id number] [place] [address] 94617- 0112 Apr, COPD (chronic obstructive pulmonary disease) with acute bronchitis J44.0 [facility], [place] [id number] [place] [address] 10217- 3113 Apr, Major depressive disorder, recurrent episode, severe F33.2 and Polysubstance (excluding opioids) dependence F19.20 [facility], [place] [address] 11991- 8238 Mar, Major depressive disorder, recurrent episode, severe F33.2 and Polysubstance (excluding opioids) dependence F19.20 [facility], [place] [address] 50777- 1869 Mar, Major depressive disorder, recurrent episode, severe F33.2 and Polysubstance (excluding opioids) dependence F19.20 [facility], [place] [address] 74224- 5247 Mar, Major depressive disorder, recurrent episode, severe F33.2 and Polysubstance (excluding opioids) dependence F19.20 [place] [address] 49384- 0828 February, Major depressive disorder, recurrent episode, severe F33.2 and Polysubstance (excluding opioids) dependence F19.20 [facility], [place] [address] 56927- 0070 February, [facility], [place] [address] 97031- 4147 February, COPD (chronic obstructive pulmonary disease) with acute bronchitis J44.0 [facility] [address] 11324 -7190 February, Sore throat J02.9 and Bronchitis J40 [facility], [place] [id number] [place] [address] 51542- 8812 Jan, COPD (chronic obstructive pulmonary disease) with acute bronchitis J44.0 [facility], [place] [address] 12193- 1726 Jan, COPD (chronic obstructive pulmonary disease) with acute bronchitis J44.0 [facility], [place] [address] 80702- 1453 14 Jan, 2016 [facility], [place] [address] 18772- 0224 Dec, Gastritis K29.70 ; Constipation K59.00 and Lumbago M54.5 [facility], [place] [id number] [place] [address] 03739- 7687 Dec, COPD (chronic obstructive pulmonary disease) with acute bronchitis J44.0 [facility], [place] [address] [place] [address] 20675- 5752 18 Nov, 2015 Major depressive disorder, recurrent episode, severe F33.2 and Polysubstance (excluding opioids) dependence F19.20 [facility] [address] 92065 -6027 Oct, Oral thrush B37.0 and Drug abuse F19.[address] 02014- 2504 Oct, [facility], [place] [address] [place] [address] 56970- 1525 Sep, COPD (chronic obstructive pulmonary disease) with acute bronchitis J44.0 ; Esophagitis, reflux K21.0 ; Seizure disorder G40.909 ; Primary insomnia F51.01 ; Edema, due to unspecified malnutrition type, unspecified type R60.9 ; Arthritis M19.90 and Thrush B37.0 [facility], [place] [id number] [place] [address] 95919- 9458 Aug, [facility], [place] [address] 49552- 6769 Aug, [address] 90242- 6846 Aug, [address] 21637- 0457 Jul, [address] 45019- 7004 Jun, [facility], [place] [address], [place] [address]- 2079 Jun, Counseling on substance use and abuse V65.42 and Obstructive chronic bronchitis, with (acute) exacerbation 491.21 [facility], [place] [address] 6414 May, [facility], [place] [id number] [place] [address] 64761- 0907 Apr, [facility], [place] [id number] [place] [address] 06900- 2807 Apr, Abdominal pain 789.00 and Back pain 724.5 [place] [id number] [place] [address] 88097- 3700 Mar, Back pain 724.5 and Illicit drug use 305.90 [place] [id number] [place] [address] 19892- 6240 February, Onychomycosis 110.1 [place] [id number] [place] [address] 23244- 4365 February, Breast cancer screening V76.10 [place] [address] [place] [address] 81959- 4154 February, [facility], [place] [address], [place] [address]- 2201 February, [facility], [place] [id number] [place] [address] 179900- 0379 February, Cough 786.2 ; Obstructive chronic bronchitis, with (acute) exacerbation 491.21 ; Vomiting 787.03 ; 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 and Gastritis 535.50 [facility], [place] [address] 2255 Jan, [facility], [place] [address] [place] [address]- 1326 Jan, [facility], [place] [id number] [place] [address]- 5338 24 Dec, 2014 [facility] [address] [id number] [place] [address]- 4061 20 Dec, 2014 [facility] [place] [facility] [address] [id number] [place] [address]- 6368 20 Dec, 2014 [facility] [address] [id number] [place] [address]- 7543 13 Dec, 2014 [facility] [place] [facility] [address] [id number] [place] [address]- 4351 13 Dec, 2014 [facility] [address] [id number] [place] [address]- 6775 12 Dec, 2014 [facility] [place] [facility] [address] [id number] [place] [address]- 9667 12 Dec, 2014 [facility] [address] [id number] [place] [address]- 4378 12 Dec, 2014 [facility] [address] [id number] [place] [address]- 1421 12 Dec, 2014 [facility] [address] [id number] [place] [address]- 8573 Sep, [facility] [address] [id number] [place] [address]- 2477 Sep, [facility] [place] [facility] [address] [id number] [place] [address]- 7819 Sep, [facility] [place] [facility] [address] [id number] [place] [address]- 6638 Sep, [facility] [place] [facility] [address] [id number] [place] [address]- 9523 Sep, [facility] [place] [facility] [address] [id number] [place] [address]- 0768 Sep, [facility] [place] [facility] [address] [id number] [place] [address]- 2877 Sep, [facility] [place] [facility] [address] [id number] [place] [address]- 6553 Sep, [facility] [place] [facility] [address] [id number] [place] [address]- 0128 Sep, [facility] [place] [facility] [address] [id number] [place] [address]- 5443 Sep, [facility] [place] [facility] [address] [id number] [place] [address]- 4278 Aug, [facility] [place] [facility] [address] [id number] [place] [address]- 3082 Aug, [facility] [place] [facility] [address] [id number] [place] [address]- 6104 Aug, [facility] [place] [facility] [address] [id number] [place] [address]- 7881 Aug, [facility] [place] [facility] [address] [id number] [place] [address]- [address] Jul, [facility] [place] [facility] [address] [id number] [place] [address] Jul, [facility] [place] [facility] [address] [id number] [place] [address] Jun, [facility] [place] [facility] [address] [id number] [place] [address] Jun, [facility] [place] [facility] [address] [id number] [place] [address] May, [facility] [place] [facility] [address] [id number] [place] [address] May, [facility] [place] [facility] [address] [id number] [place] [address] May, [facility] [place] [facility] [address] [id number] [place] [address] May, [facility] [place] [facility] [address] [id number] [place] [address] May, [facility] [place] [facility] [address] [id number] [place] [address] May, [facility] [place] [facility] [address] [id number] [place] [address] Apr, [facility] [place] [facility] [address] [id number] [place] [address] Apr, [facility] [place] [facility] [address] [id number] [place] [address] Apr, [facility] [place] [facility] [address] [id number] [place] [address] Apr, [facility] [place] [facility] [address] [id number] [place] [address] February, [facility] [place] [facility] [address] [id number] [place] [address]- [address] February, [facility] [place] [facility] [address] [id number] [place] [address] Oct, [facility] [place] [facility] [address] [id number] [place] [address] Oct, [facility] [place] [facility] [address] [id number] [place] [address] Oct, [facility] [place] [facility] [address] [id number] [place] [address] Oct, [facility] [place] [facility] [address] [id number] [place] [address] Sep, [facility] [place] [facility] [address] [id number] [place] [address] Sep, [facility] [place] [facility] [address] [id number] [place] [address] Sep, [facility] [place] [facility] [address] [id number] [place] [address] Sep, [facility] [place] [facility] [address] [id number] [place] [address] Aug, [facility] [place] [facility] [address] [id number] [place] [address] Aug, [facility] [place] [facility] [address] [id number] [place] [address] Aug, [facility] [place] [facility] [address] [id number] [place] [address] Aug, [facility] [place] [facility] [address] [id number] [place] [address] Jul, [facility] [place] [facility] [address] [id number] [place] [address] Jul, [facility] [place] [facility] [address] [id number] [place] [address] Jul, [facility] [place] [facility] [address] [id number] [place] [address] Jul, [facility] [place] [facility] [address] [id number] [place] [address] Jul, [facility] [place] [facility] [address] [id number] [place] [address] Jul, [facility] [place] [facility] [address] [id number] [place] [address] Jul, [facility] [place] [facility] [address] [id number] [place] [address] Jul, [facility] [place] [facility] [address] [id number] [place] [address] Jul, [facility] [place] [facility] [address] [id number] [place] [address] Jul, [facility] [place] [facility] [address] [id number] [place] [address] Jun, [facility] [place] [facility] [address] [id number] [place] [address] May, [facility] [place] [id number] [address] Apr, [facility] [place] [id number], [place] [address] Apr, [facility] [place] [id number] [address] Apr, [facility] [place] [id number], [place] [address] Mar, [facility] [place] [id number], [place] [address] Mar, [facility] [place] [id number] [place] [address] Mar, [facility] [place] [id number] [address] Mar, [facility] [place] [id number] [place] [address] Mar, [facility] [place] [id number] [address] Sep, [facility], [place] [id number] [address] February, [facility] [place] [id number] [address] Jan, IMMUNIZATIONS Vaccine Route Administration Date Status TORADOL (IM) 60 MG/2ML (UP TO 15 MG) IM Intramuscular February 11, 2018 Administered SOCIAL HISTORY Never Assessed REASON FOR VISIT cough/congestion, fevers with rashes-Jaelyn DOTSON PLAN OF CARE VITAL SIGNS Height 64 in 2018-02-11 Weight 133.4 lbs 2018-02-11 Temperature 99.0 degrees Fahrenheit 2018-02-11 Heart Rate 74 bpm 2018-02-11 Respiratory Rate 18 2018-02-11 BMI 22.90 kg/m2 2018-02-11 Blood pressure systolic 110 mmHg 2018-02-11 Blood pressure diastolic 58 mmHg 2018-02-11 MEDICATIONS Medication Instructions Dosage Frequency Start Date End Date Duration Status Digoxin 125 MCG TAKE ONE TABLET BY MOUTH EVERY DAY 90 Active Polyethylene Glycol 3350 17 gm/dose Orally 2 times a day 1 packet mixed with 8 ounces of fluid 12h Active Risperdal 1 MG Orally 2 times a day 1 tablet 12h Jan, 30 day(s ) Active Cyclobenzaprine HCl 10 mg Orally 2 times a day 1 tablet as needed 12h Jun, Active Meclizine HCl 25 MG TAKE ONE TABLET BY MOUTH EVERY DAY NEEDED FOR DIZZINESS 30 Not-Taking Cipro 500 mg Orally every 12 hrs 1 tablet 12h Jan, February, 10 day(s) Active Mirtazapine 30 MG Orally Once a day 1 tablet at bedtime 24h Active Metoprolol Tartrate 25 MG Orally Twice a day 1 tablet with food 12h Active Omeprazole 40 MG Orally at bedtime 1 capsule Active Keppra 1000 MG Orally every 12 hrs 1 tablet 12h 90 Active Xarelto 20 MG Orally Once a day 1 tablet with food 24h Active Potassium Chloride ER 20 meq Orally twice a day 1 tablet with food 12h Active Pantoprazole Sodium 40 mg Orally Once a day 1 tablet 24h Active Acidophilus - Active Oxygen 2 L/NC Not-Taking Prazosin HCl 2 MG Orally Once a day 1 capsule at bedtime 24h Active Furosemide 20 MG Orally twice a day 1 tablet 12h Active Albuterol Sulfate HFA 108 (90 Base) MCG/ACT Inhalation every 6 hrs 2 puffs as needed 6h Active Cartia XT 180 MG Orally Once a day 1 capsule 24h Active RESULTS No Results PROCEDURES Procedure Date Ordered Result Body Site TORADOL (IM) 60 MG/2ML (UP TO 15 MG) February 11, 2018 THER/PROPH/DIAG INJ, SC/IM February 11, 2018 INSTRUCTIONS MEDICATIONS ADMINISTERED No Known Medications [...] bleeding 2015 Hospitalization History A fib with [facility] 02/06/17 Hospitalization History Altered mental status, lethargy-[facility] 07/10/17 Hospitalization History Chest pain-[facility] 08/05/17 Hospitalization History [facility] 10/2017 Hospitalization History Low potassium, A fib 01/2018 Hospitalization History Head injury 03/2018
--- OUTSIDE RECORDS SUMMARY | 2018-07-13 15:13 | XMS REPORT ---
Author Author FRANCHESKA HEADLEY Organization [facility] Address [address] [place] [address] Care Team Providers Care Airborne And Air Delivery Specialist Name Role Phone FRANCHESKA HEADLEY Unavailable PROBLEMS Type Condition ICD9-CM Code UZO74-UR Code Onset Dates Condition Status SNOMED Code Problem Anxiety F41.9 Active 06887220 Problem Seasonal allergic rhinitis, unspecified allergic rhinitis trigger J30.2 Active 653928359 Problem Other chronic pain G89.29 Active 51054038 Problem Chronic fatigue R53.82 Active 26357885 Problem Seizure disorder G40.909 Active 396201167 Problem Unsteady gait R26.81 Active 73144144 Problem Infection of right eye H44.001 Active [id number] Problem Lumbago with sciatica, left side M54.42 Active 984825798 Problem Chronic pain syndrome G89.4 Active 033791734 Problem Fibromyalgia M79.7 Active 108084486 Problem Atrial fibrillation, unspecified type I48.91 Active 87723905 Problem Esophagitis, reflux K21.0 Active 924614761 Problem Primary insomnia F51.01 Active 658848344 Problem Edema, due to unspecified malnutrition type, unspecified type R60.9 Active 167332969 Problem Polysubstance (excluding opioids) dependence F19.20 Active 38594345 Problem Congestive heart failure, unspecified congestive heart failure chronicity, unspecified congestive heart failure type I50.9 Active 75166471 Problem COPD (chronic obstructive pulmonary disease) with acute bronchitis J44.0 Active 950482300328490 Problem Unspecified mood [affective] disorder F39 Active 024796310 Problem Major depressive disorder, recurrent episode, severe F33.2 Active 964566393168 Problem Lumbago with sciatica, right side M54.41 Active 346981888 ALLERGIES No Information ENCOUNTERS Encounter Location Date Diagnosis [facility] [address] [facility] [id number] [place] [address] Apr, Lumbago with sciatica, right side M54.41 ; Chronic pain syndrome G89.4 and Primary insomnia F51.01 [facility] [address] [address]14 Apr, Acute right ankle pain M25.571 [facility] [id number] [place] [address] 63191 -3008 Apr, [facility] [address] 32[address] Apr, Seasonal allergic rhinitis, unspecified trigger J30.2 and Acute right ankle pain M25.571 [facility] [address] 26680- 9718 28 Mar, 2018 Primary insomnia F51.01 and Anxiety F41.9 [facility] [address] 70328- 4078 18 Mar, 2018 [facility] [address] 42692- 5020 14 Mar, 2018 [facility] [address] 01033- 6507 13 Mar, 2018 Lumbago with sciatica, left side M54.42 [facility] [id number] [place] [address] 89723- 9258 Mar, [facility] [id number] [place] [address] 99795- 2339 05 Mar, 2018 Anxiety F41.9 [facility] [id number] [place] [address] 58299- 6578 February, [facility] [address] 98784- 3983 February, Unspecified mood [affective] disorder F39 [facility] [id number] [place] [address] 01643- 7208 February, [facility] [address] 02025- 4882 February, [facility] [id number] [place] [address] 82396 -7406 February, Hordeolum externum of right upper eyelid H00.011 and Paronychia of finger of right hand L03.011 [facility] [id number] [place] [address] 68248- 5375 February, [place] [address] 28993- 2050 February, Primary insomnia F51.01 ; Atrial fibrillation, unspecified type I48.91 ; Unsteady gait R26.81 ; General weakness R53.1 ; Chronic fatigue R53.82 ; Hypokalemia E87.6 and Other chronic pain G89.29 [place] [id number] [place] [address] 18555- 6162 February, [place] [address] 97066- 5198 Jan, Lumbago with sciatica, right side M54.41 [place] [id number] [place] [address] 22037- 6501 Jan, Anxiety F41.9 ; Chronic pain syndrome G89.4 ; Folliculitis L73.9 and Fibromyalgia M79.7 [place] [id number] [place] [address] 64707- 9797 Jan, Lumbago with sciatica, right side M54.41 [place] [id number] [place] [address] 05394- 3464 Dec, [place] [id number] [place] [address] 90991- 2673 Nov, Lumbago with sciatica, right side M54.41 [place] [id number] [place] [address] 11918- 9632 Nov, [place] [address] [place] [address]- 6274 Nov, Unspecified mood [affective] disorder F39 ; Hypokalemia E87.6 and Anemia, unspecified type D64.9 [place] [id number] [place] [address] 76426- 3459 Nov, [place] [address] 12237- 9495 Oct, Lumbago with sciatica, right side M54.41 [facility] [place] [address] 56398 -7478 Aug, Congestive heart failure, unspecified congestive heart failure chronicity, unspecified congestive heart failure type I50.9 and Peripheral edema R60.9 [place] [address] 81396- 7614 Aug, Polysubstance (excluding opioids) dependence F19.20 and Lumbago with sciatica, left side M54.42 [place] [id number] [place] [address] 08133- 9395 Aug, [facility] [place] [address] 22360 -5981 Aug, Infection of right eye H44.001 [place] [id number] [place] [address] 36611- 8601 14 Aug, 2017 Congestive heart failure, unspecified congestive heart failure chronicity, unspecified congestive heart failure type I50.9 and Other chronic pain G89.29 [place] [id number] [place] [address] 39382- 8216 Aug, Lumbago with sciatica, right side M54.41 [place] [id number] [place] [address] 46988- 8068 Aug, Lumbago with sciatica, right side M54.41 [place] [address] 15221- 0143 Aug, [facility] [address] [address] 5[address] Jul, [facility] [id number] [place] [address] 72596- 6269 Jul, COPD (chronic obstructive pulmonary disease) with acute bronchitis J44.0 ; Atrial fibrillation, unspecified type I48.91 ; Polysubstance (excluding opioids) dependence F19.20 ; Congestive heart failure, unspecified congestive heart failure chronicity, unspecified congestive heart failure type I50.9 and Lumbago with sciatica, right side M54.41 [facility] [id number] [place] [address] [id number] Jul, [facility] [id number] [place] [address] 35399- 0875 Jul, Seizure disorder G40.909 [facility] [id number] [place] [address] 79780- 4723 Jul, Lumbago with sciatica, right side M54.41 [facility] [id number] [place] [address] 24968- 5461 Jul, [facility] [id number] [place] [address] 61628- 8733 Jun, Congestive heart failure, unspecified congestive heart failure chronicity, unspecified congestive heart failure type I50.9 ; Lumbago with sciatica, right side M54.41 and Other chronic pain G89.29 [facility] [address] [address]- 2047 Jun, [facility] [id number] [place] [address] 78234- 7849 Jun, [facility] [id number] [place] [address] 94164- 3075 May, Lumbago with sciatica, left side M54.42 [facility] [id number] [place] [address] 77348- 1360 May, [facility] [place] [id number] [place] [address] 26798 -4920 May, Unspecified fall, initial encounter W19.XXXA [place] [id number] [place] [address] 00725- 8957 May, Lumbago with sciatica, right side M54.41 [place] [address] 21964- 3354 May, [place] [address] 08701- 6864 May, Bloating R14.0 and Right hip pain M25.551 [place] [address] 76057- 3608 Apr, [place] [address] 49402- 7542 Apr, Lumbago with sciatica, left side M54.42 [place] [address] 45084- 6101 Mar, [facility] [place] [address] 92604 -7082 Mar, Lumbago with sciatica, right side M54.41 [facility] [address] 52000 -1753 Mar, Abdominal distension R14.0 [place] [address] 96652- 5893 Mar, Periumbilical abdominal pain R10.33 and Diarrhea, unspecified type R19.7 [facility] [address] 70424 -1664 February, Seasonal allergic rhinitis, unspecified allergic rhinitis trigger J30.2 ; Acute middle ear effusion, bilateral H65.193 and Lumbago with sciatica, right side M54.41 [place] [id number] [place] [address] 25225- 5263 February, Routine gynecological examination Z01.419 [place] [address] 92335- 4120 Jan, [place] [id number] [place] [address] 67895- 5868 Jan, Atrial fibrillation, unspecified type I48.91 [facility] [address] 80276 -7303 Jan, Lumbago with sciatica, right side M54.41 and Wound, open, toe, initial encounter S91.109A [place] [address] [id number] Jan, [facility] [id number] [place] [address] 05438 -0630 Jan, Acute bilateral low back pain without sciatica M54.5 [place] [id number] [place] [address] 77633- 8625 Dec, Congestive heart failure, unspecified congestive heart failure chronicity, unspecified congestive heart failure type I50.9 [place] [id number] [place] [address] 35300- 1979 Dec, [place] [id number] [place] [address] 81948- 0712 Dec, Thrush, oral B37.0 and Lumbago with sciatica, right side M54.41 [place] [id number] [place] [address] 67814- 5898 Dec, [place] [address] 48987- 2597 Nov, [place] [id number] [place] [address] 51403- 1381 14 Nov, 2016 [place] [address] 21867- 5026 Oct, Polysubstance (excluding opioids) dependence F19.20 ; Other chronic pain G89.29 and Lumbago with sciatica, right side M54.41 [facility] [id number] [place] [address] 34343- 0864 Oct, [facility] [id number] [place] [address] 85798- 4064 Aug, Lumbago with sciatica, right side M54.41 ; Other chronic pain G89.29 and Anxiety F41.9 [facility] [id number] [place] [address] 72490- 5574 Aug, [facility] [id number] [place] [address] 93833- 4737 Aug, [facility] [id number] [place] [address] 46765- 8134 Aug, [facility] [id number] [place] [address] 93673- 8530 Aug, [facility] [id number] [place] [address] 47833- 3040 Aug, [facility] [id number] [place] [address] 88749- 7330 Aug, [facility] [id number] [place] [address] 18427- 7928 Jul, Unspecified mood [affective] disorder F39 and Seizure disorder G40.909 [facility] [id number] [place] [address] 33830- 6402 Jul, [facility] [id number] [place] [address] 65598- 6770 Jul, [facility] [id number] [place] [address] 40777- 2638 Jul, Unspecified mood [affective] disorder F39 and Seizure disorder G40.909 [facility] [id number] [address]- 1242 Jul, Polysubstance (excluding opioids) dependence F19.20 ; COPD ( chronic obstructive pulmonary disease) with acute bronchitis J44.0 ; Congestive heart failure, unspecified congestive heart failure chronicity, unspecified congestive heart failure type I50.9 ; Radiculopathy of lumbosacral region M54.17 and Radiculopathy, thoracic region M54.14 [place] [id number] [place] [address] 42043- 1042 Jun, Lumbago M54.5 [place] [id number] [place] [address] 62429- 2758 May, [place] [id number] [place] [address] 81255- 3617 May, [place] [id number] [place] [address] 95885- 2534 May, [place] [id number] [place] [address] 78164- 6394 Apr, COPD (chronic obstructive pulmonary disease) with acute bronchitis J44.0 [place] [id number] [place] [address] 35250- 8819 Apr, Major depressive disorder, recurrent episode, severe F33.2 and Polysubstance (excluding opioids) dependence F19.20 [place] [id number] [place] [address] 78841- 2390 Mar, Major depressive disorder, recurrent episode, severe F33.2 and Polysubstance (excluding opioids) dependence F19.20 [place] [id number] [place] [address] 14946- 8749 Mar, Major depressive disorder, recurrent episode, severe F33.2 and Polysubstance (excluding opioids) dependence F19.20 [place] [address], [place] [address]- 6920 Mar, Major depressive disorder, recurrent episode, severe F33.2 and Polysubstance (excluding opioids) dependence F19.20 [facility] [id number] [place] [address] 01532- 8494 February, Major depressive disorder, recurrent episode, severe F33.2 and Polysubstance (excluding opioids) dependence F19.20 [place] [address] 16450- 3672 February, [place] [address] 44703- 0654 February, COPD (chronic obstructive pulmonary disease) with acute bronchitis J44.0 [facility] [address] 95899 -6344 February, Sore throat J02.9 and Bronchitis J40 [place] [address] 39613- 7654 Jan, COPD (chronic obstructive pulmonary disease) with acute bronchitis J44.0 [place] [address] 93837- 0748 Jan, COPD (chronic obstructive pulmonary disease) with acute bronchitis J44.0 [place] [address] 28628- 9430 Jan, [place] [address] 65491- 0041 Dec, Gastritis K29.70 ; Constipation K59.00 and Lumbago M54.5 [place] [address] 22905- 0545 Dec, COPD (chronic obstructive pulmonary disease) with acute bronchitis J44.0 [place] [address] 28880- 5944 18 Nov, 2015 Major depressive disorder, recurrent episode, severe F33.2 and Polysubstance (excluding opioids) dependence F19.20 [facility] [address] 36679 -4525 Oct, Oral thrush B37.0 and Drug abuse F19.10 [facility] [id number] [place] [address] 54526- 0759 Oct, [facility] [id number] [place] [address] 11730- 3116 Sep, COPD (chronic obstructive pulmonary disease) with acute bronchitis J44.0 ; Esophagitis, reflux K21.0 ; Seizure disorder G40.909 ; Primary insomnia F51.01 ; Edema, due to unspecified malnutrition type, unspecified type R60.9 ; Arthritis M19.90 and Thrush B37.0 [facility] [address] 15881- 5073 Aug, [place] [address] 05628- 9123 Aug, [facility] [address] 05029- 3229 Aug, [facility] [id number] [place] [address] 49879- 0240 Jul, [facility] [id number] [place] [address] 50370- 2259 Jun, [facility] [id number] [place] [address] 07003- 1611 Jun, Counseling on substance use and abuse V65.42 and Obstructive chronic bronchitis, with (acute) exacerbation 491.21 [facility] [id number] [place] [address] 47991- 4083 May, [facility] [address] 40644- 8959 Apr, [facility] [id number] [place] [address] 74747- 3248 Apr, Abdominal pain 789.00 and Back pain 724.5 [place] [address] 47015- 4323 Mar, Back pain 724.5 and Illicit drug use 305.90 [facility] [id number] [place] [address] 81599- 4237 February, Onychomycosis 110.1 [facility] [id number] [place] [address] 580377- 3591 February, Breast cancer screening V76.10 [facility] [id number] [place] [address] 21011- 5958 February, [facility] [id number] [place] [address] 53573- 8894 February, [facility] [id number] [place] [address] 43475- 1137 February, Cough 786.2 ; Obstructive chronic bronchitis, with (acute) exacerbation 491.21 ; Vomiting 787.03 ; 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 and Gastritis 535.50 [facility] [id number] [place] [address] 88186- 9907 Jan, [facility] [id number] [place] [address] 57303- 8135 Jan, [facility] [id number] [place] [address] 60001- 7616 24 Dec, 2014 [facility] [id number] [place] [address] 88189- 7959 Dec, [facility] [id number] [place] [address] 48798- 7583 Dec, [facility] [id number] [place] [address] 28404- 7584 Dec, [facility] [id number] [place] [address] 08098- 1732 Dec, [facility] [address], [place] [address]- 1523 Dec, [facility] [id number] [place] [address]- 5750 Dec, [facility] [address] [id number] [place] [address]- 7534 Dec, [facility] [place] [facility] [address] [id number] [place] [address]- 4149 Dec, [facility] [address] [id number] [place] [address]- 2805 Sep, [facility] [address] [id number] [place] [address]- 9658 Sep, [facility] [address] [id number] [place] [address]- 9066 Sep, [facility] [address] [id number] [place] [address]- 5646 Sep, [facility] [address] [id number] [place] [address]- 5978 Sep, [facility] [address] [id number] [place] [address]- 9528 Sep, [facility] [place] [facility] [address] [id number] [place] [address]- 6548 Sep, [facility] [address] [id number] [place] [address]- 3560 Sep, [facility] [place] [facility] [address] [id number] [place] [address]- 9294 Sep, [facility] [place] [facility] [address] [id number] [place] [address]- 4077 Sep, [facility] [place] [facility] [address] [id number] [place] [address]- 2969 Aug, [facility] [place] [facility] [address] [id number] [place] [address]- 9506 Aug, [facility] [place] [facility] [address] [id number] [place] [address]- 2362 Aug, [facility] [place] [facility] [address] [id number] [place] [address]- 1129 Aug, [facility] [place] [facility] [address] [id number] [place] [address]- 7496 Jul, [facility] [place] [facility] [address] [id number] [place] [address]- 3996 Jul, [facility] [place] [facility] [address] [id number] [place] [address]- 7546 Jun, [facility] [place] [facility] [address] [id number] [place] [address]- 2485 Jun, [facility] [place] [facility] [address] [id number] [place] [address]- 5655 May, [facility] [place] [facility] [address] [id number] [place] [address]- 2551 May, [facility] [place] [facility] [address] [id number] [place] [address]- 9243 May, [facility] [place] [facility] [address] [id number] [place] [address]- 6030 May, [facility] [place] [facility] [address] [id number] [place] [address]- 9017 May, [facility] [place] [facility] [address] [id number] [place] [address]- 9289 May, [facility] [place] [facility] [address] [id number], [place] [address]- 9587 Apr, [facility] [place] [facility] [address] [id number] [place] [address]- 1644 Apr, [facility] [place] [facility] [address] [id number] [place] [address]- 3569 Apr, [facility] [place] [facility] [address] [id number] [place] 0724 Apr, [facility] [place] [facility] [address] [id number], [place] [address]- 4439 February, [facility] [address] [id number] [place] [address]- 0738 February, [facility] [place] [facility] [address] [id number] [place] [address]- 1078 Oct, [facility] [address] [facility] [id number] [place] [address]- 0371 Oct, [facility] [place] [facility] [address] [id number] [place] [address]- 1177 Oct, [facility] [address] [facility] [id number] [place] [address] Oct, [facility] [address] [facility] [id number] [place] [address] Sep, [facility] [address] [facility] [id number], [place] [address] Sep, [facility] [place] [facility] [address] [facility] [id number] [place] [address] Sep, [facility] [address] [id number] [place] [address] Sep, [facility] [place] [facility] [address] [id number], [place] [address] Aug, [facility] [address] [facility] [id number], [place] [address] Aug, [facility] [place] [facility] [address] [id number], [place] [address] Aug, [facility] [place] [facility] [address] [id number], [place] [address] Aug, [facility] [place] [facility] [address] [facility] [id number], [place] [address] Jul, [facility] [place] [facility] [address] [facility] [id number], [place] [address] Jul, [facility] [place] [facility] [address] [id number] [place] [address] Jul, [facility] [place] [facility] [address] [id number] [place] [address] Jul, [facility] [place] [facility] [address] [id number] [place] [address] Jul, [facility] [place] [facility] [address] [id number] [place] [address] Jul, [facility] [place] [facility] [address] [id number] [place] [address] Jul, [facility] [place] [facility] [address] [id number] [place] [address] Jul, [facility] [place] [facility] [address] [id number] [place] [address] Jul, [facility] [place] [facility] [address] [id number] [place] [address] Jul, [facility] [place] [facility] [address] [id number] [place] [address] Jun, [facility] [place] [facility] [address] [id number] [place] [address] May, [facility] [place] [facility] [address] [id number] [place] [address] Apr, [facility] [place] [facility] [address] [id number] [place] [address] Apr, [facility] [place] [facility] [address] [id number] [place] [address] Apr, [facility] [place] [facility] [address] [id number] [place] [address] Mar, [facility] [place] [facility] [address] [id number] [place] [address] Mar, [facility] [place] [facility] [address] [id number] [place] [address] Mar, [facility] [address] [facility] [id number], [place] [address] Mar, [facility] [address] [facility] [id number], [place] [address] Mar, [facility] [address] [id number], [place] [address] Sep, [facility] [address] [id number], [place] [address] February, [facility] [address] [facility] [id number], [place] [address] Jan, IMMUNIZATIONS Vaccine Route Administration Date Status TORADOL (IM) 60 MG/2ML (UP TO 15 MG) IM Intramuscular February 04, 2018 Administered SOCIAL HISTORY Never Assessed REASON FOR VISIT Injection----DBennettRebeccaN, toradol 60mg IM, ok'd per Sascha. PLAN OF CARE VITAL SIGNS MEDICATIONS No Known Medications RESULTS No Results PROCEDURES Procedure Date Ordered Result Body Site TORADOL (IM) 60 MG/2ML (UP TO 15 MG) February 04, 2018 THER/PROPH/DIAG INJ, SC/IM February 04, 2018 INSTRUCTIONS MEDICATIONS ADMINISTERED No Known Medications [...] bleeding 2015 Hospitalization History A fib with [facility] 02/06/17 Hospitalization History Altered mental status, lethargy-[facility] 07/10/17 Hospitalization History Chest pain-[facility] 08/05/17 Hospitalization History [facility] 10/2017 Hospitalization History Low potassium, A fib 01/2018 Hospitalization History Head injury 03/2018
[2018-07-13] MEDS ORDERED: NS IV 1000 ML 1,000 ML IV SCH (15:15)
[2018-07-13 15:39] LABS: BILIRUBIN,URINE NEGATIVE (NEGATIVE); CLARITY,URINE CLEAR; COLOR,URINE YELLOW; GLUCOSE, URINE (UA) NEGATIVE (NEGATIVE); KETONES,URINE NEGATIVE (NEGATIVE); LEUKOCYTE ESTERASE ,URINE NEGATIVE (NEGATIVE); NITRITE,URINE NEGATIVE (NEGATIVE); PH,URINE 5 (5-9); PROTEIN,URINE NEGATIVE (NEGATIVE); UROBILINOGEN,URINE NORMAL (NORMAL)
[2018-07-13 15:39] LABS: BASOPHILS % (AUTO) 0 % (0-10); EOSINOPHILS # (AUTO) 0.2 10^3/uL (0.0-0.3); EOSINOPHILS % (AUTO) 1 % (0-10); HEMATOCRIT 32 % (35-52); HEMOGLOBIN 10.5 G/DL (11.5-16.0); LYMPHOCYTES # (AUTO) 4.4 X 10^3 (1.0-4.0); LYMPHOCYTES % (AUTO) 34 % (12-44); MEAN CORPUSCULAR HEMOGLOBIN 23 PG (25-34); MEAN CORPUSCULAR HGB CONC 33 G/DL (32-36); MEAN CORPUSCULAR VOLUME 70 FL (80-99); MEAN PLATELET VOLUME 9.3 FL (7.4-10.4); MONOCYTES # (AUTO) 1.9 X 10^3 (0.0-1.0); MONOCYTES % (AUTO) 14 % (0-12); NEUTROPHILS # (AUTO) 6.4 X 10^3 (1.8-7.8); NEUTROPHILS % (AUTO) 50 % (42-75); PLATELET COUNT 459 10^3/uL (130-400); RED BLOOD COUNT 4.51 10^6/uL (4.35-5.85); RED CELL DISTRIBUTION WIDTH 22.6 % (10.0-14.5); WHITE BLOOD COUNT 12.8 10^3/uL (4.3-11.0)
[2018-07-13 15:53] LABS: BENZODIAZEPINES SCREEN URINE NEGATIVE (NEGATIVE)
[2018-07-13 15:54] LABS: AMPHETAMINE SCREEN, URINE POSITIVE (NEGATIVE); BARBITURATE SCREEN URINE NEGATIVE (NEGATIVE); CANNABINOID SCREEN, URINE POSITIVE (NEGATIVE); COCAINE SCREEN URINE NEGATIVE (NEGATIVE); METHADONE STAT NEGATIVE (NEGATIVE); METHAMPHETAMINE SCREEN URINE S POSITIVE (NEGATIVE); OPIATE SCREEN URINE NEGATIVE (NEGATIVE); OXYCODONE STAT NEGATIVE (NEGATIVE); PROPOXYPHENE STAT NEGATIVE (NEGATIVE); TRICYCLIC ANTIDEPRESSANTS SCRE POSITIVE (NEGATIVE)
[2018-07-13 15:55] LABS: ALANINE AMINOTRANSFERASE 15 U/L (0-55); ALBUMIN 4.4 GM/DL (3.2-4.5); ALKALINE PHOSPHATASE 133 U/L (40-136); BILIRUBIN,TOTAL 0.6 MG/DL (0.1-1.0); BUN/CREATININE RATIO 12; CALCIUM 9.6 MG/DL (8.5-10.1); CARBON DIOXIDE 24 MMOL/L (21-32); CHLORIDE 100 MMOL/L (98-107); CREATININE SERUM 0.75 MG/DL (0.60-1.30); GFR ESTIMATED > 60; GLUCOSE 131 MG/DL (70-105); POTASSIUM 3.5 MMOL/L (3.6-5.0); SALICYLATE < 5.0 MG/DL (5.0-20.0); SODIUM 137 MMOL/L (135-145); TOTAL PROTEIN 8.2 GM/DL (6.4-8.2)
[2018-07-13 16:02] LABS: ACETAMINOPHEN 351 UG/ML (10-30)
[2018-07-13 16:03] LABS: BACTERIA,URINE NEGATIVE /HPF; SQUAMOUS EPITHELIAL CELL,UR 0-2 /HPF; WBC,URINE RARE /HPF
[2018-07-13] MEDS ORDERED: ACETYLCYSTEINE IV NR (16:15)
[2018-07-13] MEDS ORDERED: D5W IV NR (16:15)
[2018-07-13] MEDS ORDERED: ACETYLCYSTEINE IV ONE ×2 (17:30→21:30)
[2018-07-13] MEDS ORDERED: D5W IV ONE ×2 (17:30→21:30)
[2018-07-13] MEDS ORDERED: diphenhydrAMINE 50 MG/ML INJ (BENADRYL) IV STA (18:17)
[2018-07-13] MEDS ORDERED: TETANUS & DIPHTHERIA TOX,ADULT 0.5 ML (TENIVAC) IM ONE (18:21)
[2018-07-13 19:19] VITALS: BP 144/78
== END 2018-07-13 19:19 | disposition short-term general hospital (02) ==
LOC: EDUNIT# 14:53 → ER 14:54
DX: T39.1X1A Poisoning by 4-Aminophenol derivatives, accidental (unintentional), initial encounter (principal); J43.9 Emphysema, unspecified; I48.91 Unspecified atrial fibrillation; I10 Essential (primary) hypertension; G40.909 Epilepsy, unspecified, not intractable, without status epilepticus; K21.9 Gastro-esophageal reflux disease without esophagitis; F90.9 Attention-deficit hyperactivity disorder, unspecified type; F41.9 Anxiety disorder, unspecified; F43.10 Post-traumatic stress disorder, unspecified; F31.9 Bipolar disorder, unspecified; F15.10 Other stimulant abuse, uncomplicated; F12.10 Cannabis abuse, uncomplicated; Z98.890 Other specified postprocedural states; Z80.49 Family history of malignant neoplasm of other genital organs; Z87.448 Personal history of other diseases of urinary system; Z87.19 Personal history of other diseases of the digestive system; Z91.5 Personal history of self-harm; Z90.710 Acquired absence of both cervix and uterus; Z98.51 Tubal ligation status; Z95.0 Presence of cardiac pacemaker; Z95.2 Presence of prosthetic heart valve; Z90.89 Acquired absence of other organs; Z88.2 Allergy status to sulfonamides; Z88.0 Allergy status to penicillin; Z88.1 Allergy status to other antibiotic agents; Z88.6 Allergy status to analgesic agent; Z88.8 Allergy status to other drugs, medicaments and biological substances; Z79.01 Long term (current) use of anticoagulants; Z77.22 Contact with and (suspected) exposure to environmental tobacco smoke (acute) (chronic)
CPT/HCPCS: 36415; 80053; 80306; 80320; 80329; 81000; 85025; 93005; 93041; 96361; 96365; 96366; 96375

== ENCOUNTER 2018-09-16 09:18 | Emergency (ER) | payer MEDICAID | END 2018-09-16 10:43 | disposition left against medical advice (07) | LOC: EDUNIT# 09:18 → ER 09:19 | DX: R05 Cough (principal); R68.2 Dry mouth, unspecified ==

== ENCOUNTER 2018-11-13 13:02 | Emergency (ER) | payer MEDICAID ==
[~2018-11-13] VITALS: Ht 160 cm; Wt 63.5 kg
[2018-11-13 13:33] LABS: BILIRUBIN,URINE NEGATIVE (NEGATIVE); CLARITY,URINE CLEAR; COLOR,URINE YELLOW; GLUCOSE, URINE (UA) NEGATIVE (NEGATIVE); KETONES,URINE NEGATIVE (NEGATIVE); LEUKOCYTE ESTERASE ,URINE 1+ (NEGATIVE); NITRITE,URINE NEGATIVE (NEGATIVE); PH,URINE 7 (5-9); PROTEIN,URINE NEGATIVE (NEGATIVE); UROBILINOGEN,URINE NORMAL (NORMAL)
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
[2018-11-13 13:46] LABS: BASOPHILS # (AUTO) 0.1 10^3/uL (0.0-0.1); BASOPHILS % (AUTO) 1 % (0-10); EOSINOPHILS # (AUTO) 0.5 10^3/uL (0.0-0.3); EOSINOPHILS % (AUTO) 4 % (0-10); HEMATOCRIT 32 % (35-52); LYMPHOCYTES # (AUTO) 3.1 X 10^3 (1.0-4.0); LYMPHOCYTES % (AUTO) 29 % (12-44); MEAN CORPUSCULAR HEMOGLOBIN 22 PG (25-34); MEAN CORPUSCULAR HGB CONC 31 G/DL (32-36); MEAN CORPUSCULAR VOLUME 69 FL (80-99); MEAN PLATELET VOLUME 10.3 FL (7.4-10.4); MONOCYTES # (AUTO) 1.1 X 10^3 (0.0-1.0); MONOCYTES % (AUTO) 11 % (0-12); NEUTROPHILS # (AUTO) 6.1 X 10^3 (1.8-7.8); NEUTROPHILS % (AUTO) 56 % (42-75); PLATELET COUNT 468 10^3/uL (130-400); RED BLOOD COUNT 4.64 10^6/uL (4.35-5.85); RED CELL DISTRIBUTION WIDTH 22.5 % (10.0-14.5); WHITE BLOOD COUNT 10.8 10^3/uL (4.3-11.0)
[2018-11-13 13:55] LABS: BACTERIA,URINE TRACE /HPF; WBC,URINE 0-2 /HPF
[2018-11-13 14:06] LABS: ALANINE AMINOTRANSFERASE 8 U/L (0-55); ALKALINE PHOSPHATASE 138 U/L (40-136); BILIRUBIN,TOTAL 0.5 MG/DL (0.1-1.0); BUN/CREATININE RATIO 6; CALCIUM 8.9 MG/DL (8.5-10.1); CARBON DIOXIDE 24 MMOL/L (21-32); CHLORIDE 103 MMOL/L (98-107); CREATININE SERUM 0.77 MG/DL (0.60-1.30); GFR ESTIMATED > 60; GLUCOSE 96 MG/DL (70-105); MAGNESIUM 2.2 MG/DL (1.8-2.4); SODIUM 136 MMOL/L (135-145); TOTAL PROTEIN 7.7 GM/DL (6.4-8.2)
--- NOTE | 2018-11-13 14:09 | Diagnostic Imaging Report ---
INDICATION rectal bleeding. TIME OF EXAM: 1:49 PM CORRELATION is made with prior study from 07/05/2018. The heart is enlarged but stable. There are changes of median sternotomy. Cardiac pacemaker remains in place. There is spinal instrumentation throughout the thoracic spine. Lungs are clear. No failure is seen. No effusion or pneumothorax is identified. IMPRESSION: No acute cardiopulmonary process is detected. Dictated by: Dictated on workstation # [id number]
[2018-11-13] MEDS ORDERED: KETOROLAC 30 MG/ML VIAL IVP STA (14:29)
--- NOTE | 2018-11-13 15:09 | Diagnostic Imaging Report ---
INDICATION: Rectal bleeding. TIME OF EXAM: 2:54 p.m. FINDINGS: Two views of the abdomen were obtained. No free air is identified. The bowel gas pattern appears nonobstructive. No pathologic calcifications are seen. There is spinal instrumentation in the thoracic and upper lumbar spine. Lead wires overlie the right abdomen. IMPRESSION: No acute abnormality is identified. Dictated by: Dictated on workstation # [id number]
[2018-11-13 15:37] VITALS: BP 123/61
--- OUTSIDE RECORDS SUMMARY | 2018-11-13 16:17 | XMS REPORT | Clinical Summary ---
Author Author [facility] Organization [facility] Address Unknown Phone Unavailable Care Team Providers Care C S S Representative Name Role Phone Janae Leblanc MD Unavailable [...] in the Health Information Management department at [phone] for further assistance in locating additional records.[facility] Allergies Comments Active Allergy Reactions Severity Noted Date Specifically surgical tape-"rips my skin off" Adhesive RASH 08/15/2011 Amoxicillin VOMITING, 03/01/2010 ITCHING EPS symptoms Prochlorperazine SEE COMMENTS 07/07/2010 Edisylate Propoxyphene NAUSEA AND 03/01/2010 N-Acetaminophen VOMITING Erythromycin VOMITING 03/01/2010 EPS symptoms Droperidol AGITATION 03/01/2010 Peas HIVES, EDEMA 11/13/2012 Penicillins HIVES, NAUSEA 08/15/2011 AND VOMITING "makes eyes funny"; EPS Promethazine 03/01/2010 Sulfa (Sulfonamide VOMITING 03/01/2010 Antibiotics) tylenol 3 Acetaminophen HIVES Medium 12/29/2014 Medications End Date Status Medication Sig Dispensed Refills Start Date Active potassium chloride SR Take 1 Tab by 0 (K-DUR) 20 mEq tablet mouth Daily. Active estradiol (ESTRACE) 2 mg Take 2 mg by 0 tablet mouth daily. Active albuterol (VENTOLIN HFA, Inhale 2 0 PROAIR HFA) 90 Puffs by mcg/Actuation inhaler mouth Every 6 Hours as needed for Wheezing. Active furosemide (LASIX) 40 mg Take 40 mg by 0 tablet mouth daily. Active metoprolol XL (TOPROL XL) Take 50 mg by 0 50 mg tablet mouth daily. Active Ascorbic Acid 100 mg Tab Take 1 Tab by 0 mouth at bedtime daily. Active albuterol 0.083% Inhale 2.5 mg 0 (PROVENTIL; VENTOLIN) 2.5 solution as mg /3 mL (0.083 %) directed nebulizer solution three times daily. Active calcium carbonate Take 1 Tab by 90 Tab 0 (OS-SHARA) 1250 mg tablet mouth twice 3 daily with meals. Active rivaroxaban (XARELTO) 20 Take 1 Tab by 0 201 mg tab tablet mouth daily 6 with breakfast. 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 Tricuspid valve replaced 02/07/2012 Overview: History of, due to Ebstein Anomaly Injury, superficial, elbow, forearm, or wrist with infection 09/22/2011 Fracture of right wrist 09/04/2011 Malunion of fracture 09/04/2011 Family History Medical History Relation Name Comments Cancer Mother Relation Name Status Comments Mother Social History Date Tobacco Use Types Packs/Day Years Used Current Every Day Smoker Cigarettes 2 18 Smokeless Tobacco: Never Used Tobacco Cessation: Ready to Quit: No; Counseling Given: Yes Alcohol Use Drinks/Week oz/Week Comments No 0 Standard 0.0 drinks or equivalent Sex Assigned at Date Recorded Not on file Industry Job Start Date Occupation Not on file Not on file Not on file Travel End Travel History Travel Start No recent travel history available. 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 Temperature 36.4 C (97.5 F) - Respiratory Rate - 06/13/2016 10:10 AM CDT Oxygen Saturation 95% - Inhaled Oxygen - Concentration 03/05/2018 12:32 PM CDT Weight 62.1 kg (137 lb) 03/05/2018 12:32 PM CDT Height 160 cm (5' 3") 03/05/2018 12:32 PM CDT Body Mass Index 24.27 Plan of Treatment Health Maintenance Due Date Last Done Comments PHYSICAL (COMPREHENSIVE) 1985 EXAM HIV SCREENING 1993 DTAP/TDAP VACCINES ( - 1996 Tdap) CERVICAL CANCER SCREENING 2008 INFLUENZA VACCINE 05/22/2018 02/06/2013, 09/02/2012 Results Not on filefrom Last 3 Months Insurance Payer Benefit Subscriber ID Type Phone Address Plan / Group [employer] [place] [employer] xxxxxxxxxxx Medicaid [employer] Advance Directives Patient has advance care planning documents, and code status on file. For more information, please contact: [facility] [address] [place] [address] Date Inactivated Comments Code Status Date Activated 11/15/2012 2:22 PM Full Code 11/13/2012 4:47 PM Provider has discussed Code Status Yes w/Patient or Family? 07/26/2012 5:03 AM Full Code 07/24/2012 6:33 PM Provider has discussed Code Status Yes w/Patient or Family? 02/08/2012 4:53 PM Full Code 02/05/2012 2:50 PM Provider has discussed Code Status No, more discussion w/Patient or Family? needed 09/20/2011 4:56 PM Full Code 09/04/2011 7:31 PM Provider has discussed Code Status Yes w/Patient or Family? 09/04/2011 7:31 PM Full Code 09/04/2011 4:57 PM Provider has discussed Code Status No, discussion not w/Patient or Family? necessary based on Dx
--- OUTSIDE RECORDS SUMMARY | 2018-11-13 16:18 | XMS REPORT ---
Author Author FRANCHESKA HEADLEY [facility] Address [address] [place] [address] Care Team Providers Care Net Finisher Name Role Phone FRANCHESKA HEADLEY Unavailable PROBLEMS Type Condition ICD9-CM Code MEY08-LB Code Onset Dates Condition Status SNOMED Code Problem Infection of right eye H44.001 Active 23811418327499031 Problem Fibromyalgia M79.7 Active 054296120 Problem Chronic pain syndrome G89.4 Active 934591987 Problem COPD exacerbation J44.1 Active 951129732 Problem Seizure disorder G40.909 Active 755908032 Problem Mood disorder F39 Active 66216239 Problem Primary insomnia F51.01 Active 295255713 Problem Esophagitis, reflux K21.0 Active 978378123 Problem Unsteady gait R26.81 Active 59789053 Problem Chronic fatigue R53.82 Active 46500561 Problem Slow transit constipation K59.01 Active 67109177 Problem Methamphetamine abuse F15.10 Active 804673754 Problem Polysubstance (excluding opioids) dependence F19.20 Active 69857151 Problem Congestive heart failure, unspecified congestive heart failure chronicity, unspecified congestive heart failure type I50.9 Active 60547892 Problem COPD (chronic obstructive pulmonary disease) with acute bronchitis J44.0 Active 204936194262806 Problem Major depressive disorder, recurrent episode, severe F33.2 Active 599275287262 Problem Other chronic pain G89.29 Active 82374348 Problem Lumbago with sciatica, right side M54.41 Active 826155669 Problem Edema, due to unspecified malnutrition type, unspecified type R60.9 Active 174727574 Problem Unspecified mood [affective] disorder F39 Active 106119078 Problem Seasonal allergic rhinitis, unspecified allergic rhinitis trigger J30.2 Active 661208440 Problem Atrial fibrillation, unspecified type I48.91 Active 98530777 Problem Anxiety F41.9 Active 34967867 Problem Lumbago with sciatica, left side M54.42 Active 757765528 ALLERGIES Substance Reaction Event Type Date Status Saphris Unknown Drug Allergy Sep, Active Tylenol/Codeine #3 Unknown Drug Allergy Sep, Active Phenergan Unknown Drug Allergy Sep, Active Keflex Unknown Drug Allergy Sep, Active Inapsine Unknown Drug Allergy Sep, Active Geodon Unknown Drug Allergy Sep, Active Erythromycin Unknown Drug Allergy Sep, Active Darvocet-N 50 Unknown Drug Allergy Sep, Active Compazine Unknown Drug Allergy Sep, Active Cephalexin Unknown Drug Allergy Sep, Active Bactrim Unknown Drug Allergy Sep, Active ENCOUNTERS Encounter Location Date Diagnosis [facility] [id number] [place] [address] 26324- 6259 Oct, [place] [address] 9[address]23- [address]959 Sep, Lumbago with sciatica, right side M54.41 [facility] [address] 37968 -1913 Aug, COPD exacerbation J44.1 [facility] [address] 31998- 6647 Aug, [facility] [address] 01682 -3469 Aug, COPD exacerbation J44.1 and Acute nasopharyngitis J00 [place] [id number] [place] [address] 36620- 4845 Aug, [facility] [address] 68914- 0531 Jul, [facility] [id number] [place] [address] 45336- 0953 Jul, Hip pain, right M25.551 [facility] [id number] [place] [address] 63582- 3552 16 Jul, 2018 Atrial fibrillation, unspecified type I48.91 [facility] [address] 00376- 5678 Jul, Mood disorder F39 ; Slow transit constipation K59.01 and Acute non-recurrent maxillary sinusitis J01.00 [place] [address] 11300- 2693 Jun, Atrial fibrillation, unspecified type I48.91 ; Lumbago with sciatica, right side M54.41 ; Unspecified mood [affective] disorder F39 and Anxiety F41.9 [place] [address] 82688- 5503 Jun, Lumbago with sciatica, right side M54.41 [place] [address] 24434- 3164 May, Anxiety F41.9 [place] [address] 78587- 3127 May, [facility] [place] [address] 60382 -3902 May, Methamphetamine abuse F15.10 [place] [address] 69502- 6977 May, [place] [address] 73867- 7914 Apr, [place] [address] 47100- 2877 Apr, Lumbago with sciatica, right side M54.41 ; Chronic pain syndrome G89.4 and Primary insomnia F51.01 [facility] [place] [id number] [place] [address] 26368 -0459 Apr, Acute right ankle pain M25.571 [facility] [place] [address] 59627 -8329 Apr, [facility] [place] [id number] [place] [address] 33190 -3988 Apr, Seasonal allergic rhinitis, unspecified trigger J30.2 and Acute right ankle pain M25.571 [facility] [id number] [place] [address] 33551- 4234 28 Mar, 2018 Primary insomnia F51.01 and Anxiety F41.9 [facility] [id number] [place] [address] 06044- 2103 18 Mar, 2018 [facility] [address] 92615- 6776 Mar, [facility] [id number] [place] [address] 04750- 2300 Mar, Lumbago with sciatica, left side M54.42 [facility] [address] 61959- 5964 Mar, [facility] [id number] [place] [address] 55163- 7331 Mar, Anxiety F41.9 [facility] [id number] [place] [address] 35408- 4605 February, [facility] [id number] [place] [address] 17075- 8844 February, Unspecified mood [affective] disorder F39 [facility] [id number] [place] [address] 72012- 6411 February, [facility] [id number] [place] [address] 29416- 5492 February, [facility] [id number] [place] [address] 77217 -4516 February, Hordeolum externum of right upper eyelid H00.011 and Paronychia of finger of right hand L03.011 [facility] [id number] [place] [address] 02162- 1285 February, [facility] [id number] [place] [address] 79794- 0298 February, Primary insomnia F51.01 ; Atrial fibrillation, unspecified type I48.91 ; Unsteady gait R26.81 ; General weakness R53.1 ; Chronic fatigue R53.82 ; Hypokalemia E87.6 and Other chronic pain G89.29 [facility] [address] 02960- 9607 February, [place] [address] 24158- 9573 Jan, Lumbago with sciatica, right side M54.41 [place] [address] 09033- 7693 Jan, Anxiety F41.9 ; Chronic pain syndrome G89.4 ; Folliculitis L73.9 and Fibromyalgia M79.7 [place] [address] 75864- 2405 Jan, Lumbago with sciatica, right side M54.41 [place] [address] 36098- 5044 Dec, [place] [address] 81227- 5097 Nov, Lumbago with sciatica, right side M54.41 [place] [address] 06377- 0193 Nov, [place] [address] 87462- 7495 Nov, Unspecified mood [affective] disorder F39 ; Hypokalemia E87.6 and Anemia, unspecified type D64.9 [place] [address] 60328- 2910 Nov, [facility] [address] 76271- 2301 Oct, Lumbago with sciatica, right side M54.41 [facility] [address] [place] [address] Aug, Congestive heart failure, unspecified congestive heart failure chronicity, unspecified congestive heart failure type I50.9 and Peripheral edema R60.9 [place] [id number] [place] [address] 34001- 5286 Aug, Polysubstance (excluding opioids) dependence F19.20 and Lumbago with sciatica, left side M54.42 [place] [address] [address] [id number] [place] [address] 62381- 6437 Aug, [facility] [id number] [place] [address] 51605 -2489 Aug, Infection of right eye H44.001 [place] [id number] [place] [address] 50003- 4862 Aug, Congestive heart failure, unspecified congestive heart failure chronicity, unspecified congestive heart failure type I50.9 and Other chronic pain G89.29 [place] [id number] [place] [address] 97673- 7358 Aug, Lumbago with sciatica, right side M54.41 [place] [address] 62140- 1198 Aug, Lumbago with sciatica, right side M54.41 [place] [id number] [place] [address] 58474- 4239 Aug, [place] [id number] [place] [address] 50624- 3819 Jul, [place] [id number] [place] [address] 17668- 7064 Jul, COPD (chronic obstructive pulmonary disease) with acute bronchitis J44.0 ; Atrial fibrillation, unspecified type I48.91 ; Polysubstance (excluding opioids) dependence F19.20 ; Congestive heart failure, unspecified congestive heart failure chronicity, unspecified congestive heart failure type I50.9 and Lumbago with sciatica, right side M54.41 [facility] [id number] [place] [address] [id number] Jul, [facility] [id number] [place] [address] 19325- 1134 Jul, Seizure disorder G40.909 [facility] [id number] [place] [address] 35194- 3074 Jul, Lumbago with sciatica, right side M54.41 [facility] [id number] [place] [address] 56008- 7643 Jul, [facility] [id number] [place] [address] 02229- 5813 Jun, Congestive heart failure, unspecified congestive heart failure chronicity, unspecified congestive heart failure type I50.9 ; Lumbago with sciatica, right side M54.41 and Other chronic pain G89.29 [facility] [id number] [place] [address] 85374- 6566 Jun, [facility] [id number] [place] [address] 34857- 9738 Jun, [facility] [id number] [place] [address] 85983- 2783 May, Lumbago with sciatica, left side M54.42 [facility] [id number] [place] [address] 26203- 9917 May, [facility] [address] [place] [address] 03608 -2513 May, Unspecified fall, initial encounter W19.XXXA [facility] [id number] [place] [address] 58510- 1070 May, Lumbago with sciatica, right side M54.41 [facility] [id number] [place] [address] 29136- 7163 May, [facility] [address] 41800- 7973 May, Bloating R14.0 and Right hip pain M25.551 [place] [address] 01957- 5186 Apr, [place] [address] 48482- 2351 Apr, Lumbago with sciatica, left side M54.42 [place] [address] 48360- 5670 Mar, [facility] [place] [address] 27484 -0030 Mar, Lumbago with sciatica, right side M54.41 [facility] [place] [address] 11544 -3740 Mar, Abdominal distension R14.0 [place] [address] 43121- 5109 Mar, Periumbilical abdominal pain R10.33 and Diarrhea, unspecified type R19.7 [facility] [place] [address] 36063 -4192 February, Seasonal allergic rhinitis, unspecified allergic rhinitis trigger J30.2 ; Acute middle ear effusion, bilateral H65.193 and Lumbago with sciatica, right side M54.41 [place] [address] 54790- 8210 February, Routine gynecological examination Z01.419 [place] [address] 86844- 4478 Jan, [place] [address] 80227- 1873 Jan, Atrial fibrillation, unspecified type I48.91 [facility] [place] [address] 99057 -8661 Jan, Lumbago with sciatica, right side M54.41 and Wound, open, toe, initial encounter S91.109A [facility] [id number] [place] [address] [id number] Jan, [facility] [address] [place] [address] 55218 -7028 Jan, Acute bilateral low back pain without sciatica M54.5 [facility] [id number] [place] [address] 87579- 0448 Dec, Congestive heart failure, unspecified congestive heart failure chronicity, unspecified congestive heart failure type I50.9 [facility] [id number] [place] [address] 68746- 6677 Dec, [place] [id number] [place] [address] 24125- 9002 Dec, Thrush, oral B37.0 and Lumbago with sciatica, right side M54.41 [facility] [id number] [place] [address] 18961- 0559 Dec, [facility] [id number] [place] [address] 10417- 2943 Nov, [facility] [id number] [place] [address] 34095- 0547 Nov, [facility] [id number] [place] [address] 52280- 8000 Oct, Polysubstance (excluding opioids) dependence F19.20 ; Other chronic pain G89.29 and Lumbago with sciatica, right side M54.41 [facility] [id number] [place] [address] 99014- 1562 Oct, [facility] [id number] [place] [address] 70121- 5904 Aug, Lumbago with sciatica, right side M54.41 ; Other chronic pain G89.29 and Anxiety F41.9 [facility] [address] [address]- 3754 Aug, [facility] [id number] [place] [address] 08841- 4723 Aug, [facility] [address] [address]- 2421 Aug, [facility] [id number] [place] [address] 49397- 9741 Aug, [facility] [address] [place] [address] 77565- 7407 Aug, [facility] [id number] [place] [address] 64117- 2483 Aug, [facility] [id number] [place] [address] 09022- 4765 Jul, Unspecified mood [affective] disorder F39 and Seizure disorder G40.909 [facility] [id number] [place] [address] 87696- 9537 Jul, [facility] [address] [place] [address] 84450- 3649 Jul, [facility] [address], [place] [address]- 8276 Jul, Unspecified mood [affective] disorder F39 and Seizure disorder G40.909 [facility] [address] [address]- 4799 Jul, Polysubstance (excluding opioids) dependence F19.20 ; COPD ( chronic obstructive pulmonary disease) with acute bronchitis J44.0 ; Congestive heart failure, unspecified congestive heart failure chronicity, unspecified congestive heart failure type I50.9 ; Radiculopathy of lumbosacral region M54.17 and Radiculopathy, thoracic region M54.14 [facility] [address] [address]- 0047 Jun, Lumbago M54.5 [facility] [address], [place] [address]- 5310 May, [facility] [id number] [place] [address] 41012- 4161 May, [facility] [id number] [address]- 9627 May, [facility] [id number] [place] [address] 96524- 5570 Apr, COPD (chronic obstructive pulmonary disease) with acute bronchitis J44.0 [facility] [id number] [place] [address] 87470- 9838 Apr, Major depressive disorder, recurrent episode, severe F33.2 and Polysubstance (excluding opioids) dependence F19.20 [place] [address], [place] [address]- 2244 Mar, Major depressive disorder, recurrent episode, severe F33.2 and Polysubstance (excluding opioids) dependence F19.20 [place] [address], [place] [address]- 0823 Mar, Major depressive disorder, recurrent episode, severe F33.2 and Polysubstance (excluding opioids) dependence F19.20 [place] [address], [place] [address]- 3219 Mar, Major depressive disorder, recurrent episode, severe F33.2 and Polysubstance (excluding opioids) dependence F19.20 [facility] [address], [place] [address]- 0223 February, Major depressive disorder, recurrent episode, severe F33.2 and Polysubstance (excluding opioids) dependence F19.20 [facility] [address], [place] [address]- 7429 February, [facility] [id number] [address]- 2780 February, COPD (chronic obstructive pulmonary disease) with acute bronchitis J44.0 [facility] [address] 80202 -5449 February, Sore throat J02.9 and Bronchitis J40 [place] [address] 31500- 1435 Jan, COPD (chronic obstructive pulmonary disease) with acute bronchitis J44.0 [place] [address] 64425- 2336 Jan, COPD (chronic obstructive pulmonary disease) with acute bronchitis J44.0 [place] [address] 792151- 6571 Jan, [place] [address] 43640- 1784 Dec, Gastritis K29.70 ; Constipation K59.00 and Lumbago M54.5 [place] [address] 09082- 4085 Dec, COPD (chronic obstructive pulmonary disease) with acute bronchitis J44.0 [place] [address] 87303- 5277 Nov, Major depressive disorder, recurrent episode, severe F33.2 and Polysubstance (excluding opioids) dependence F19.20 [facility] [address] 11105 -4032 Oct, Oral thrush B37.0 and Drug abuse F19.10 [place] [address] 97731- 4124 Oct, [address] 38905- 3835 Sep, COPD (chronic obstructive pulmonary disease) with acute bronchitis J44.0 ; Esophagitis, reflux K21.0 ; Seizure disorder G40.909 ; Primary insomnia F51.01 ; Edema, due to unspecified malnutrition type, unspecified type R60.9 ; Arthritis M19.90 and Thrush B37.0 [facility] [address], [place] [address]- 8932 Aug, [facility] [id number] [place] [address] 65808- 0788 Aug, [facility] [id number] [place] [address] 29378- 5034 Aug, [facility] [id number] [place] [address] 33601- 5051 Jul, [facility] [address] [place] [address] 62266- 2510 Jun, [facility] [id number] [place] [address] 08107- 4921 Jun, Counseling on substance use and abuse V65.42 and Obstructive chronic bronchitis, with (acute) exacerbation 491.21 [facility] [id number] [place] [address] 66185- 3727 May, [facility] [address] [place] [address] 18039- 4512 Apr, [facility] [id number] [place] [address] 05643- 4052 Apr, Abdominal pain 789.00 and Back pain 724.5 [facility] [id number] [place] [address] 84673- 1688 Mar, Back pain 724.5 and Illicit drug use 305.90 [facility] [address], [place] [address]- 2104 February, Onychomycosis 110.1 [facility] [id number] [place] [address] 41312- 8482 February, Breast cancer screening V76.10 [facility] [address], [place] [address]- 6107 February, [facility] [id number] [place] [address] 79605- 8121 February, [facility] [id number] [place] [address] 49812- 3616 February, Cough 786.2 ; Obstructive chronic bronchitis, with (acute) exacerbation 491.21 ; Vomiting 787.03 ; 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 and Gastritis 535.50 [facility] [id number] [place] [address] 43619- 8671 Jan, [facility] [id number] [place] [address] 13274- 3042 Jan, [facility] [id number] [place] [address] 74837- 6757 Dec, [facility] [id number] [place] [address] 68548- 4038 Dec, [facility] [id number] [place] [address] 29608- 5565 Dec, [facility] [id number] [place] [address] 41418- 2525 Dec, [facility] [id number] [place] [address] 29635- 6994 Dec, [facility] [id number] [place] [address] 62002- 4986 Dec, [facility] [id number] [place] [address] 26896- 6473 Dec, [facility] [address], [place] [address]- 8944 Dec, [facility] [id number] [place] [address] 57494602- 5505 Dec, [facility] [address] 0074 Sep, [facility] [id number] [place] [address] 80359- 9347 Sep, [facility] [place] [facility] [address] [id number] [place] 6870 Sep, [facility] [place] [facility] [address] [id number] [place] [address]- 6486 Sep, [facility] [place] [facility] [address] [id number] [place] [address]- 3733 Sep, [facility] [place] [facility] [address] [id number] [place] [address]- 1540 Sep, [facility] [place] [facility] [address] [id number] [place] 3460 Sep, [facility] [place] [facility] [address] [id number] [place] [address]- 6916 Sep, [facility] [place] [facility] [address] [id number] [place] [address]- 5295 Sep, [facility] [place] [facility] [address] [id number] [place] [address]- 9135 Sep, [facility] [place] [facility] [address] [id number] [place] [address]- 2697 Aug, [facility] [place] [facility] [address] [id number] [place] [address]- 1017 Aug, [facility] [place] [facility] [address] [id number] [address]- 3413 Aug, [facility] [place] [facility] [address] [id number], [place] [address]- 7278 Aug, [facility] [place] [facility] [address] [id number] [place] [address] Jul, [facility] [place] [facility] [address] [id number] [place] [address] Jul, [facility] [place] [facility] [address] [id number] [place] [address] Jun, [facility] [place] [facility] [address] [id number] [place] [address] Jun, [facility] [address] [id number] [place] [address] May, [facility] [place] [facility] [address] [id number] [place] [address] May, [facility] [place] [facility] [address] [id number] [place] [address] May, [facility] [place] [facility] [address] [id number] [place] [address] May, [facility] [place] [facility] [address] [id number] [place] [address] May, [facility] [place] [facility] [address] [id number] [place] [address] May, [facility] [place] [facility] [address] [id number] [place] [address] Apr, [facility] [place] [facility] [address] [id number] [place] [address] Apr, [facility] [place] [facility] [address] [id number] [place] [address] Apr, [facility] [place] [facility] [address] [id number] [place] [address] Apr, [facility] [place] [facility] [address] [id number] [place] [address] February, [facility] [place] [facility] [address] [id number] [place] [address] February, [facility] [place] [facility] [address] [id number] [place] [address] Oct, [facility] [place] [facility] [address] [id number] [place] [address] Oct, [facility] [place] [facility] [address] [id number] [place] [address] Oct, [facility] [place] [facility] [address] [id number] [place] [address] Oct, [facility] [place] [facility] [address] [id number] [place] [address] Sep, [facility] [place] [facility] [address] [id number] [place] [address] Sep, [facility] [place] [facility] [address] [id number] [place] [address] Sep, [facility] [address] [id number] [place] [address] Sep, [facility] [place] [facility] [address] [id number] [place] [address] Aug, [facility] [place] [facility] [address] [id number] [place] [address] Aug, [facility] [place] [facility] [address] [id number], [place] [address] Aug, [facility] [place] [facility] [address] [id number] [place] [address] Aug, [facility] [place] [facility] [address] [id number], [place] [address] Jul, [facility] [place] [facility] [address] [id number], [place] [address] Jul, [facility] [place] [facility] [address] [id number], [place] [address] Jul, [facility] [place] [facility] [address] [id number], [place] [address] Jul, [facility] [place] [facility] [address] [id number], [place] [address] Jul, [facility] [place] [facility] [address] [id number], [place] [address] Jul, [facility] [place] [facility] [address] [id number], [place] [address] Jul, [facility] [place] [facility] [address] [id number] [place] [address] Jul, [facility] [place] [facility] [address] [id number] [place] [address] Jul, [facility] [place] [facility] [address] [id number] [place] [address] Jul, [facility] [place] [facility] [address] [id number] [place] [address] Jun, [facility] [place] [facility] [address] [id number] [place] [address] May, [facility] [place] [facility] [address] [id number] [place] [address] Apr, [facility] [place] [facility] [address] [id number] [place] [address] Apr, [facility] [place] [facility] [address] [id number] [place] [address] Apr, [facility] [place] [facility] [address] [id number] [place] [address] Mar, [facility] [place] [facility] [address] [id number] [place] [address] Mar, [facility] [place] [facility] [address] [id number] [place] [address] Mar, [facility] [place] [facility] [address] [id number] [place] [address] Mar, [facility] [place] [facility] [address] [id number] [place] [address] Mar, [facility] [place] [facility] [address] [id number] [place] [address] Sep, [facility] [place] [facility] [address] [id number] [place] [address] February, [facility] [place] [facility] [address] [id number] [place] [id number] 15 Jan, 2009 IMMUNIZATIONS Vaccine Route Administration Date Status TORADOL (IM) 60 MG/2ML (UP TO 15 MG) IM Intramuscular Oct 07, 2018 Administered SOCIAL HISTORY Never Assessed REASON FOR VISIT Injection, approved by provider to receive 60 mg Toradol IM CBrumbackRN PLAN OF CARE VITAL SIGNS MEDICATIONS Unknown Medications RESULTS No Results PROCEDURES Procedure Date Ordered Result Body Site TORADOL (IM) 60 MG/2ML (UP TO 15 MG) Oct 07, 2018 THER/PROPH/DIAG INJ, SC/IM Oct 07, 2018 INSTRUCTIONS MEDICATIONS ADMINISTERED No Known Medications [...] bleeding 2015 Hospitalization History A fib with [facility] 02/06/17 Hospitalization History Altered mental status, lethargy-[facility] 07/10/17 Hospitalization History Chest pain-[facility] 08/05/17 Hospitalization History [facility] 10/2017 Hospitalization History Low potassium, A fib 01/2018 Hospitalization History Head injury 03/2018 Hospitalization History heart issues 06/2018 Hospitalization History Overdosed 06/2018
--- OUTSIDE RECORDS SUMMARY | 2018-11-13 16:19 | XMS REPORT ---
Author Author ZEE QUINTANA [facility] WALK IN [facility] Address [address] [place] [address] Care Team Providers Care Load Tester Name Role Phone ZEE QUINTANA Unavailable PROBLEMS Type Condition ICD9-CM Code ULC94-EA Code Onset Dates Condition Status SNOMED Code Problem Infection of right eye H44.001 Active [id number] Problem Fibromyalgia M79.7 Active 870969392 Problem Chronic pain syndrome G89.4 Active 546666442 Problem COPD exacerbation J44.1 Active 192545504 Problem Seizure disorder G40.909 Active 696938654 Problem Mood disorder F39 Active 14620979 Problem Primary insomnia F51.01 Active 995196125 Problem Esophagitis, reflux K21.0 Active 555641908 Problem Unsteady gait R26.81 Active 54601538 Problem Chronic fatigue R53.82 Active 00762693 Problem Slow transit constipation K59.01 Active 84780993 Problem Methamphetamine abuse F15.10 Active 117024895 Problem Polysubstance (excluding opioids) dependence F19.20 Active 78940150 Problem Congestive heart failure, unspecified congestive heart failure chronicity, unspecified congestive heart failure type I50.9 Active 42194744 Problem COPD (chronic obstructive pulmonary disease) with acute bronchitis J44.0 Active [id number] Problem Major depressive disorder, recurrent episode, severe F33.2 Active 855141418161 Problem Other chronic pain G89.29 Active 11361894 Problem Lumbago with sciatica, right side M54.41 Active 637568861 Problem Edema, due to unspecified malnutrition type, unspecified type R60.9 Active 603939872 Problem Unspecified mood [affective] disorder F39 Active 569660290 Problem Seasonal allergic rhinitis, unspecified allergic rhinitis trigger J30.2 Active 277116643 Problem Atrial fibrillation, unspecified type I48.91 Active 15732929 Problem Anxiety F41.9 Active 32256367 Problem Lumbago with sciatica, left side M54.42 Active 505668161 ALLERGIES Substance Reaction Event Type Date Status Saphris Unknown Drug Allergy Aug, Active Tylenol/Codeine #3 Unknown Drug Allergy Aug, Active Phenergan Unknown Drug Allergy Aug, Active Keflex Unknown Drug Allergy Aug, Active Inapsine Unknown Drug Allergy Aug, Active Geodon Unknown Drug Allergy Aug, Active Erythromycin Unknown Drug Allergy Aug, Active Darvocet-N 50 Unknown Drug Allergy Aug, Active Compazine Unknown Drug Allergy Aug, Active Cephalexin Unknown Drug Allergy Aug, Active Bactrim Unknown Drug Allergy Aug, Active ENCOUNTERS Encounter Location Date Diagnosis [facility] [address] [address] Aug, [facility] IN [facility] [address] [address] Aug, COPD exacerbation J44.1 and Acute nasopharyngitis J00 [facility] [address] [address] Aug, [facility] [address] 6[address]13- [address]646 Jul, [facility] [address] 10673- 6541 Jul, Hip pain, right M25.551 [place] [address] 45492- 3518 Jul, Atrial fibrillation, unspecified type I48.91 [facility] [address] [id number] [place] [address] 83425- 0806 Jul, Mood disorder F39 ; Slow transit constipation K59.01 and Acute non-recurrent maxillary sinusitis J01.00 [facility] [address] 33910- [address] Jun, Atrial fibrillation, unspecified type I48.91 ; Lumbago with sciatica, right side M54.41 ; Unspecified mood [affective] disorder F39 and Anxiety F41.9 [facility] [id number] [place] [address] 72832- 2416 Jun, Lumbago with sciatica, right side M54.41 [facility] [address] 97013- 0649 May, Anxiety F41.9 [facility] [address] 03991- 8817 May, [facility] IN [facility] [address] [address] May, Methamphetamine abuse F15.10 [place] [address] 37883- 3103 May, [facility] [address] 66211- 9981 Apr, [facility] [address] 42121- 3503 Apr, Lumbago with sciatica, right side M54.41 ; Chronic pain syndrome G89.4 and Primary insomnia F51.01 [facility]ALK IN [facility] [address] 100[address] Apr, Acute right ankle pain M25.571 [facility] IN [facility] [address] 96536 [address]6776 Apr, [facility] [address] 10014 -[address] Apr, Seasonal allergic rhinitis, unspecified trigger J30.2 and Acute right ankle pain M25.571 [facility] [address] 03982- 7517 Mar, Primary insomnia F51.01 and Anxiety F41.9 [facility] [id number] [place] [address] 46819- 6442 Mar, [facility] [address] [place] [address]- 0220 14 Mar, 2018 [facility] [id number] [place] [address] 67286- 0389 13 Mar, 2018 Lumbago with sciatica, left side M54.42 [facility] [id number] [place] [address] 36526- 5866 Mar, [facility] [address] 55866- 1159 Mar, Anxiety F41.9 [facility] [address] [id number] [place] [address] 02620- 8522 February, [facility] [id number] [place] [address] 63498- 6819 February, Unspecified mood [affective] disorder F39 [place] [address] [id number] [place] [address] 30347- 0008 February, [facility] [id number] [place] [address] 85815- 2473 February, [facility] IN [facility] [id number] [place] [address] 72202 -8722 February, Hordeolum externum of right upper eyelid H00.011 and Paronychia of finger of right hand L03.011 [place] [address] [place] [id number] [place] [address] 63063- 2221 February, [facility] [id number] [place] [address] 48872- 9611 February, Primary insomnia F51.01 ; Atrial fibrillation, unspecified type I48.91 ; Unsteady gait R26.81 ; General weakness R53.1 ; Chronic fatigue R53.82 ; Hypokalemia E87.6 and Other chronic pain G89.29 [facility] [id number] [place] [address] 05794- 5449 February, [facility] [id number] [place] [address] 90566- 3096 Jan, Lumbago with sciatica, right side M54.41 [place] [address] 51880- 0962 Jan, Anxiety F41.9 ; Chronic pain syndrome G89.4 ; Folliculitis L73.9 and Fibromyalgia M79.7 [place] [address] 99153- 4037 Jan, Lumbago with sciatica, right side M54.41 [place] [address] 27102- 4334 Dec, [place] [address] 22743- 9017 Nov, Lumbago with sciatica, right side M54.41 [place] [address] 28714- 2080 Nov, [place] [address] 39738- 5974 Nov, Unspecified mood [affective] disorder F39 ; Hypokalemia E87.6 and Anemia, unspecified type D64.9 [place] [address] [place] [id number] [place] [address] 00507- 1355 Nov, [place] [address] [id number] [place] [address] 04490- 1875 Oct, Lumbago with sciatica, right side M54.41 [facility] IN [facility] [id number] [place] [address] 19765 -1018 Aug, Congestive heart failure, unspecified congestive heart failure chronicity, unspecified congestive heart failure type I50.9 and Peripheral edema R60.9 [place] [address] [id number] [place] [address] 39065- 0555 17 Aug, 2017 Polysubstance (excluding opioids) dependence F19.20 and Lumbago with sciatica, left side M54.42 [facility] [address] [address] Aug, [facility] [id number] [place] [address] 95007 -5175 Aug, Infection of right eye H44.001 [facility] [id number] [place] [address] 93447- 3048 Aug, Congestive heart failure, unspecified congestive heart failure chronicity, unspecified congestive heart failure type I50.9 and Other chronic pain G89.29 [facility] [address] [id number] [place] [address] 80376- 7036 Aug, Lumbago with sciatica, right side M54.41 [facility] [id number] [place] [address] 76853- 9339 Aug, Lumbago with sciatica, right side M54.41 [facility] [address] [id number] [place] [address] 53595- 5308 Aug, [facility] [id number] [place] [address] 88661- 8228 Jul, [facility] [id number] [place] [address] 13752- 7854 Jul, COPD (chronic obstructive pulmonary disease) with acute bronchitis J44.0 ; Atrial fibrillation, unspecified type I48.91 ; Polysubstance (excluding opioids) dependence F19.20 ; Congestive heart failure, unspecified congestive heart failure chronicity, unspecified congestive heart failure type I50.9 and Lumbago with sciatica, right side M54.41 [facility] [address] [place] [id number] [place] [address] [id number] Jul, [facility] [id number] [place] [address] 73657- 1804 Jul, Seizure disorder G40.909 [facility] [id number] [place] [address] 14834- 8406 Jul, Lumbago with sciatica, right side M54.41 [facility] [address] [address]- 6786 Jul, [facility] [id number] [place] [address] 83521- 0555 Jun, Congestive heart failure, unspecified congestive heart failure chronicity, unspecified congestive heart failure type I50.9 ; Lumbago with sciatica, right side M54.41 and Other chronic pain G89.29 [facility] [address] [id number] [place] [address] 78259- 6217 Jun, [place] [address] [id number] [place] [address] 36107- 3933 Jun, [facility] [id number] [place] [address] 18583- 7825 May, Lumbago with sciatica, left side M54.42 [place] [address] [id number] [place] [address] 20034- 8779 May, [facility] [id number] [place] [address] 48704 -3985 May, Unspecified fall, initial encounter W19.XXXA [facility] [id number] [address]- 7083 May, Lumbago with sciatica, right side M54.41 [place] [address] [address] [id number] [place] [address] 97728- 1355 May, [facility] [id number] [place] [address] 83688- 6432 May, Bloating R14.0 and Right hip pain M25.551 [facility] [id number] [place] [address] 14268- 3518 Apr, [facility] [id number] [place] [address] 59353- 0118 Apr, Lumbago with sciatica, left side M54.42 [place] [address] [id number] [place] [address] 84023- 0406 Mar, [facility] IN [place] [address] 67876 [address]6927 Mar, Lumbago with sciatica, right side M54.41 [facility] [place] [address] 80848 -7372 Mar, Abdominal distension R14.0 [place] [address] 82915- 8789 Mar, Periumbilical abdominal pain R10.33 and Diarrhea, unspecified type R19.7 [facility] [place] [address] 95945 -6820 February, Seasonal allergic rhinitis, unspecified allergic rhinitis trigger J30.2 ; Acute middle ear effusion, bilateral H65.193 and Lumbago with sciatica, right side M54.41 [place] [address] 17230- 4310 February, Routine gynecological examination Z01.419 [place] [address] 11810- 1933 Jan, [place] [address] 52913- 1529 Jan, Atrial fibrillation, unspecified type I48.91 [facility] [place] [address] 56299 -8177 Jan, Lumbago with sciatica, right side M54.41 and Wound, open, toe, initial encounter S91.109A [place] [address] [id number] Jan, [facility] [place] [address] 51836 -0754 Jan, Acute bilateral low back pain without sciatica M54.5 [place] [address] [id number] [place] [address] 75069- 8488 Dec, Congestive heart failure, unspecified congestive heart failure chronicity, unspecified congestive heart failure type I50.9 [facility] [id number] [place] [address] 32772- 2290 Dec, [facility] [id number] [place] [address] 02816- 4920 Dec, Thrush, oral B37.0 and Lumbago with sciatica, right side M54.41 [facility] [id number] [place] [address] 92710- 2486 Dec, [facility] [address] [id number] [place] [address] 52214- 8173 Nov, [facility] [id number] [place] [address] 64349- 6467 Nov, [facility] [id number] [place] [address] 94847- 0407 Oct, Polysubstance (excluding opioids) dependence F19.20 ; Other chronic pain G89.29 and Lumbago with sciatica, right side M54.41 [facility] [id number] [place] [address] 94233- 9667 Oct, [facility] [id number] [place] [address] 33827- 0590 Aug, Lumbago with sciatica, right side M54.41 ; Other chronic pain G89.29 and Anxiety F41.9 [facility] [id number] [place] [address] 94030- 5633 Aug, [facility] [id number] [place] [address] 40471- 0759 10 Aug, 2016 [facility] [id number] [place] [address] 10768- 6327 08 Aug, 2016 [facility] [address] [place] [address]- 0548 Aug, [facility] [address] [address]- 7776 Aug, [facility] [address], [place] [address]- 1399 Aug, [facility] [address] [place] [address] 01905- 2499 Jul, Unspecified mood [affective] disorder F39 and Seizure disorder G40.909 [facility] [id number] [place] [address] 14660- 5942 Jul, [facility] [id number] [place] [address] 55190- 2885 Jul, [facility] [id number] [place] [address] 63536- 2577 Jul, Unspecified mood [affective] disorder F39 and Seizure disorder G40.909 [facility] [id number] [place] [address] 46132- 9528 Jul, Polysubstance (excluding opioids) dependence F19.20 ; COPD ( chronic obstructive pulmonary disease) with acute bronchitis J44.0 ; Congestive heart failure, unspecified congestive heart failure chronicity, unspecified congestive heart failure type I50.9 ; Radiculopathy of lumbosacral region M54.17 and Radiculopathy, thoracic region M54.14 [facility] [address] [address]- 8836 Jun, Lumbago M54.5 [facility] [id number] [place] [address] 02860- 7356 May, [facility] [id number] [place] [address] 23191- 5082 May, [facility] [address], [place] [address]- 7382 May, [facility] [id number] [place] [address] 44551- 0309 Apr, COPD (chronic obstructive pulmonary disease) with acute bronchitis J44.0 [place] [address] 97304- 9666 Apr, Major depressive disorder, recurrent episode, severe F33.2 and Polysubstance (excluding opioids) dependence F19.20 [place] [address] 80906- 5962 Mar, Major depressive disorder, recurrent episode, severe F33.2 and Polysubstance (excluding opioids) dependence F19.20 [place] [address] 93173- 8050 Mar, Major depressive disorder, recurrent episode, severe F33.2 and Polysubstance (excluding opioids) dependence F19.20 [place] [address] 61680- 8114 Mar, Major depressive disorder, recurrent episode, severe F33.2 and Polysubstance (excluding opioids) dependence F19.20 [place] [address] 88688- 3546 February, Major depressive disorder, recurrent episode, severe F33.2 and Polysubstance (excluding opioids) dependence F19.20 [place] [address] [address] [id number] [place] [address] 13215- 5207 February, [place] [address] 73950- 6502 February, COPD (chronic obstructive pulmonary disease) with acute bronchitis J44.0 [facility] [address] 54671 -5677 February, Sore throat J02.9 and Bronchitis J40 [facility] [address] 55891- 8581 Jan, COPD (chronic obstructive pulmonary disease) with acute bronchitis J44.0 [place] [address] [address] [id number] [place] [address] 53942- 4705 19 Jan, 2016 COPD (chronic obstructive pulmonary disease) with acute bronchitis J44.0 [facility] [address] 46748- 9516 14 Jan, 2016 [facility] [address] 27120- 3732 Dec, Gastritis K29.70 ; Constipation K59.00 and Lumbago M54.5 [place] [address] 52919- 2885 Dec, COPD (chronic obstructive pulmonary disease) with acute bronchitis J44.0 [place] [address] 23144- 3834 18 Nov, 2015 Major depressive disorder, recurrent episode, severe F33.2 and Polysubstance (excluding opioids) dependence F19.20 [facility] IN [facility] [address] 20079 -7684 Oct, Oral thrush B37.0 and Drug abuse F19.[address] 32541- 0753 Oct, [address] 91817- 3971 Sep, COPD (chronic obstructive pulmonary disease) with acute bronchitis J44.0 ; Esophagitis, reflux K21.0 ; Seizure disorder G40.909 ; Primary insomnia F51.01 ; Edema, due to unspecified malnutrition type, unspecified type R60.9 ; Arthritis M19.90 and Thrush B37.[address] 27030- 8300 Aug, [address] 15844- 1780 Aug, [address] 53188- 9661 Aug, [facility] [address], [place] [address]- 2241 Jul, [facility] [address] [id number] [place] [address] 33475- 9094 Jun, [facility] [address] [place] [address] 40712- 8628 Jun, Counseling on substance use and abuse V65.42 and Obstructive chronic bronchitis, with (acute) exacerbation 491.21 [place] [id number] [place] [address] 247179- 7279 May, [place] [address] [place] [id number] [place] [address] 825939- 8292 Apr, [place] [address] [id number] [place] [address] 135394- 2820 Apr, Abdominal pain 789.00 and Back pain 724.5 [place] [id number] [place] [address] 42057- 9281 Mar, Back pain 724.5 and Illicit drug use 305.90 [place] [id number] [place] [address] 67230- 2791 February, Onychomycosis 110.[address] [place] [address] 89133- 9050 February, Breast cancer screening V76.10 [address] [place] [address] 26616- 3332 February, [place] [id number] [place] [address] 51226- 6737 February, [id number] [place] [address] 893699- 7786 February, Cough 786.2 ; Obstructive chronic bronchitis, with (acute) exacerbation 491.21 ; Vomiting 787.03 ; 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 and Gastritis 535.50 [place] [id number] [place] [address]- 5322 14 Jan, 2015 [facility] [address] [id number] [place] [address]- 5637 13 Jan, 2015 [facility] [address] [id number] [place] [address]- 6487 24 Dec, 2014 [facility] [address] [id number] [place] [address]- 0398 20 Dec, 2014 [facility] [place] [facility] [address] [id number] [place] [address]- 4368 20 Dec, 2014 [facility] [address] [id number] [place] [address]- 9158 13 Dec, 2014 [facility] [address] [id number] [place] [address]- 7149 13 Dec, 2014 [facility] [address] [id number] [place] [address]- 9526 12 Dec, 2014 [facility] [address] [id number] [place] [address] 12 Dec, 2014 [facility] [address] [id number] [place] [address] 12 Dec, 2014 [facility] [address] [id number] [place] [address] 12 Dec, 2014 [facility] [address] [id number] [place] [address] Sep, [facility] [place] [facility] [address] [id number] [place] [address] Sep, [facility] [place] [facility] [address] [id number] [place] [address] Sep, [facility] [place] [facility] [address] [id number] [place] [address] Sep, [facility] [place] [facility] [address] [id number] [place] [address] Sep, [facility] [place] [facility] [address] [id number] [place] [address] Sep, [facility] [place] [facility] [address] [id number] [place] [address] Sep, [facility] [place] [facility] [address] [id number] [place] [address] Sep, [facility] [place] [facility] [address] [id number] [place] [address] Sep, [facility] [place] [facility] [address] [id number] [place] [address] Sep, [facility] [place] [facility] [address] [id number] [place] [address] Aug, [facility] [place] [facility] [address] [id number] [place] [address] Aug, [facility] [place] [facility] [address] [id number] [place] [address] Aug, [facility] [place] [facility] [address] [id number] [place] [address] Aug, [facility] [place] [facility] [address] [id number] [place] [address] Jul, [facility] [place] [facility] [address] [id number] [place] [address] Jul, [facility] [place] [facility] [address] [id number], [place] [address] Jun, [facility] [place] [facility] [address] [id number] [place] [address] Jun, [facility] [place] [facility] [address] [id number] [place] [address] May, [facility] [place] [facility] [address] [id number] [place] [address] May, [facility] [place] [facility] [address] [id number], [place] [address] May, [facility] [place] [facility] [address] [id number] [place] [address] May, [facility] [place] [facility] [address] [id number] [place] [address] May, [facility] [place] [facility] [address] [id number] [place] [address] May, [facility] [place] [facility] [address] [id number] [place] [address] Apr, [facility] [place] [facility] [address] [id number] [place] [address] Apr, [facility] [place] [facility] [address] [id number] [place] [address] Apr, [facility] [place] [facility] [address] [id number] [place] [address] Apr, [facility] [place] [facility] [address] [id number] [place] [address] February, [facility] [place] [facility] [address] [id number] [place] [address] February, [facility] [place] [facility] [address] [id number] [place] [address] Oct, [facility] [place] [facility] [address] [id number] [place] [address] Oct, [facility] [place] [facility] [address] [id number] [place] [address] Oct, [facility] [place] [facility] [address] [id number] [place] [address] Oct, [facility] [place] [facility] [address] [id number] [place] [address] Sep, [facility] [place] [facility] [address] [id number] [place] [address] Sep, [facility] [place] [facility] [address] [id number] [place] [address] Sep, [facility] [place] [facility] [address] [id number] [place] [address] Sep, [facility] [place] [facility] [address] [id number] [place] [address] Aug, [facility] [place] [facility] [address] [id number] [place] [address] Aug, [facility] [place] [facility] [address] [id number] [place] [address] Aug, [facility] [place] [facility] [address] [id number] [place] [address] Aug, [facility] [place] [facility] [address] [id number] [place] [address] Jul, [facility] [place] [facility] [address] [id number] [place] [address] Jul, [facility] [place] [facility] [address] [id number] [place] [address] Jul, [facility] [place] [facility] [address] [id number] [place] [address] Jul, [facility] [place] [facility] [address] [id number] [place] [address] Jul, [facility] [place] [facility] [address] [id number] [place] [address] Jul, [facility] [place] [facility] [address] [id number] [place] [address] Jul, [facility] [place] [facility] [address] [id number] [place] [address] Jul, [facility] [place] [facility] [address] [id number] [place] [address] Jul, [facility] [place] [facility] [address] [id number] [place] [address] Jul, [facility] [address] [id number], [place] [address] Jun, [facility] [id number], [place] [address] May, [facility] [address] [id number], [place] [address] Apr, [facility] [id number], [place] [address] Apr, [facility] [id number], [place] [address] Apr, [facility] [id number], [place] [address] Mar, [facility] [id number], [place] [address] Mar, [facility] [id number], [place] [address] Mar, [facility] [id number], [place] [address] Mar, [facility] [id number], [place] [address] Mar, [facility] [address] [id number], [place] [address] Sep, [facility] [id number], [place] [address] February, [facility] [address] [id number], [place] [address] Jan, IMMUNIZATIONS Vaccine Route Administration Date Status SOLUMEDROL (UP TO 125 MG) IM Intramuscular Sep 03, 2018 Administered SOCIAL HISTORY Never Assessed REASON FOR VISIT Cough/congestion, difficulty breathing - NILA Ortega PLAN OF CARE Activity Details Follow Up prn Reason: VITAL SIGNS Height 64 in 2018-09-03 Weight 141.4 lbs 2018-09-03 Temperature 98.5 degrees Fahrenheit 2018-09-03 Heart Rate 72 bpm 2018-09-03 Respiratory Rate 18 2018-09-03 BMI 24.27 kg/m2 2018-09-03 Blood pressure systolic 100 mmHg 2018-09-03 Blood pressure diastolic 66 mmHg 2018-09-03 MEDICATIONS Medication Instructions Dosage Frequency Start Date End Date Duration Status Omeprazole 40 MG Orally at bedtime 1 capsule Active Digoxin 125 MCG TAKE ONE TABLET BY MOUTH EVERY DAY 90 Active Potassium Chloride ER 20 MEQ Orally twice a day 1 tablet with food 12h Active Risperdal 2 MG Orally 2 times a day 1 tablet 12h 30 Active Furosemide 20 MG Orally twice a day 1 tablet 12h 30 days Active Albuterol Sulfate 0.63 MG/3ML Inhalation 4 times a day 3 ml as needed 6h Active Lexapro 10 MG Orally Once a day 1 tablet 24h 30 day(s) Active Bromfed DM 30-2-10 MG/5ML Orally every 4 hrs 10 ml as needed 4h 13 Aug, 2018 5 days Active Cyclobenzaprine HCl 10 mg Orally 2 times a day, deliver to [facility] at [facility] 1 tablet as needed 30 Active Benztropine Mesylate 0.5 MG Orally 2 times a day 1 tablet 12h 30 days Active Polyethylene Glycol 3350 17 gm/dose Orally 2 times a day 1 scoop (17grams) mixed with 8 ounces of fluid 12h Active Cartia XT 180 MG Orally Once a day 1 capsule 24h Active Xarelto 20 MG Orally Once a day 1 tablet with food 24h Active Metoprolol Tartrate 25 MG Orally Twice a day 1 tablet with food 12h Active Lidocaine 5 % Externally Once a day Cut patch in half and apply 1/2 to wrist and 1/2 to hip 24h Active Oxygen by inhalation route Continuous 2L Active Keppra 1000 MG Orally every 12 hrs 1 tablet 12h 90 Active RESULTS No Results PROCEDURES Procedure Date Ordered Result Body Site SOLUMEDROL (UP TO 125 MG) Sep 03, 2018 THER/PROPH/DIAG INJ, SC/IM Sep 03, 2018 INSTRUCTIONS MEDICATIONS ADMINISTERED No Known [...] bleeding 2015 Hospitalization History A fib with [facility] 02/06/17 Hospitalization History Altered mental status, lethargy-[facility] 07/10/17 Hospitalization History Chest pain-[facility] 08/05/17 Hospitalization History [facility] 10/2017 Hospitalization History Low potassium, A fib 01/2018 Hospitalization History Head injury 03/2018 Hospitalization History heart issues 06/2018 Hospitalization History Overdosed 06/2018
--- OUTSIDE RECORDS SUMMARY | 2018-11-13 16:19 | XMS REPORT ---
Author Author FRANCHESKA HEADLEY [facility] Address [address] [place] [address] Care Team Providers Care Dietitian Chief Name Role Phone FRANCHESKA HEADLEY Unavailable PROBLEMS Type Condition ICD9-CM Code BHH24-MJ Code Onset Dates Condition Status SNOMED Code Problem Infection of right eye H44.001 Active [id number] Problem Fibromyalgia M79.7 Active 754609006 Problem Chronic pain syndrome G89.4 Active 939373599 Problem COPD exacerbation J44.1 Active 786927161 Problem Seizure disorder G40.909 Active 400900951 Problem Mood disorder F39 Active 60632267 Problem Primary insomnia F51.01 Active 000723967 Problem Esophagitis, reflux K21.0 Active 805617318 Problem Unsteady gait R26.81 Active 85563134 Problem Chronic fatigue R53.82 Active 25511425 Problem Slow transit constipation K59.01 Active 90830221 Problem Methamphetamine abuse F15.10 Active 521988223 Problem Polysubstance (excluding opioids) dependence F19.20 Active 66044545 Problem Congestive heart failure, unspecified congestive heart failure chronicity, unspecified congestive heart failure type I50.9 Active 05966203 Problem COPD (chronic obstructive pulmonary disease) with acute bronchitis J44.0 Active 810150632903545 Problem Major depressive disorder, recurrent episode, severe F33.2 Active 729467373265 Problem Other chronic pain G89.29 Active 99040412 Problem Lumbago with sciatica, right side M54.41 Active 917450795 Problem Edema, due to unspecified malnutrition type, unspecified type R60.9 Active 064839133 Problem Unspecified mood [affective] disorder F39 Active 260962210 Problem Seasonal allergic rhinitis, unspecified allergic rhinitis trigger J30.2 Active 255749736 Problem Atrial fibrillation, unspecified type I48.91 Active 45056192 Problem Anxiety F41.9 Active 45665329 Problem Lumbago with sciatica, left side M54.42 Active 661310613 ALLERGIES No Information ENCOUNTERS Encounter Location Date Diagnosis [facility] [id number] [place] [address] 13693- 0398 14 Aug, 2018 [facility] [id number] [place] [address] 36254 -7879 13 Aug, 2018 COPD exacerbation J44.1 and Acute nasopharyngitis J00 [place] [address] 56916- 8685 05 Aug, 2018 [facility] [address] 21360- 6323 Jul, [place] [address] 32013- 3817 Jul, Hip pain, right M25.551 [place] [address] 27636- 3050 16 Jul, 2018 Atrial fibrillation, unspecified type I48.91 [place] [address] 38245- 7321 Jul, Mood disorder F39 ; Slow transit constipation K59.01 and Acute non-recurrent maxillary sinusitis J01.00 [place] [id number] [place] [address] 63929- 0046 Jun, Atrial fibrillation, unspecified type I48.91 ; Lumbago with sciatica, right side M54.41 ; Unspecified mood [affective] disorder F39 and Anxiety F41.9 [place] [id number] [place] [address] 73186- 4049 17 Jun, 2018 Lumbago with sciatica, right side M54.41 [place] [address] 88085- 3790 May, Anxiety F41.9 [place] [address] 97126- 7474 May, [facility] [id number] [place] [address] 45783 -8209 May, Methamphetamine abuse F15.10 [facility] [id number] [place] [address] 81725- 1509 May, [facility] [id number] [place] [address] 23651- 4905 Apr, [facility] [id number] [place] [address] 28336- 8366 Apr, Lumbago with sciatica, right side M54.41 ; Chronic pain syndrome G89.4 and Primary insomnia F51.01 [facility] [address] 96323 -6990 Apr, Acute right ankle pain M25.571 [facility] [address] 93327 -3985 Apr, [facility] [address] 48632 -4645 Apr, Seasonal allergic rhinitis, unspecified trigger J30.2 and Acute right ankle pain M25.571 [place] [address] 90341- 8562 Mar, Primary insomnia F51.01 and Anxiety F41.9 [facility] [id number] [place] [address] 37831- 7139 Mar, [facility] [address] 32845- 9463 Mar, [facility] [id number] [place] [address] 90945- 6224 Mar, Lumbago with sciatica, left side M54.42 [facility] [address] 32413- 5827 Mar, [facility] [id number] [place] [address] 03787- 0118 05 Mar, 2018 Anxiety F41.9 [facility] [id number] [place] [address] 31031- 4398 February, [facility] [id number] [place] [address] 16457- 1092 February, Unspecified mood [affective] disorder F39 [facility] [id number] [place] [address] 93166- 9773 February, [facility] [address] 42653- 7505 February, [facility] [id number] [place] [address] 93048 -4070 February, Hordeolum externum of right upper eyelid H00.011 and Paronychia of finger of right hand L03.011 [place] [id number] [place] [address] 19681- 9457 February, [place] [address] 16876- 2092 February, Primary insomnia F51.01 ; Atrial fibrillation, unspecified type I48.91 ; Unsteady gait R26.81 ; General weakness R53.1 ; Chronic fatigue R53.82 ; Hypokalemia E87.6 and Other chronic pain G89.29 [place] [id number] [place] [address] 26235- 0926 February, [place] [id number] [place] [address] 70975- 2330 Jan, Lumbago with sciatica, right side M54.41 [place] [id number] [place] [address] 72700- 5928 Jan, Anxiety F41.9 ; Chronic pain syndrome G89.4 ; Folliculitis L73.9 and Fibromyalgia M79.7 [place] [id number] [place] [address] 29548- 2692 Jan, Lumbago with sciatica, right side M54.41 [place] [id number] [place] [address] 76157- 1681 Dec, [place] [address] 41767- 2980 Nov, Lumbago with sciatica, right side M54.41 [place] [address] 93516- 1814 Nov, [place] [address] 70399- 9457 Nov, Unspecified mood [affective] disorder F39 ; Hypokalemia E87.6 and Anemia, unspecified type D64.9 [place] [address] 29429- 5361 Nov, [place] [address] 15712- 9181 Oct, Lumbago with sciatica, right side M54.41 [facility] [id number] [place] [address] 02437 -2846 Aug, Congestive heart failure, unspecified congestive heart failure chronicity, unspecified congestive heart failure type I50.9 and Peripheral edema R60.9 [place] [id number] [place] [address] 68069- 8425 17 Aug, 2017 Polysubstance (excluding opioids) dependence F19.20 and Lumbago with sciatica, left side M54.42 [place] [id number] [place] [address] 21711- 1580 17 Aug, 2017 [facility] [address] 35060 -5084 14 Aug, 2017 Infection of right eye H44.001 [place] [id number] [place] [address] 65471- 7540 14 Aug, 2017 Congestive heart failure, unspecified congestive heart failure chronicity, unspecified congestive heart failure type I50.9 and Other chronic pain G89.29 [facility] [address] [place] [address] 57973- 2249 Aug, Lumbago with sciatica, right side M54.41 [facility] [id number] [place] [address] 71118- 8747 Aug, Lumbago with sciatica, right side M54.41 [place] [id number] [place] [address] 75837- 9486 Aug, [facility] [id number] [place] [address] 45021- 8715 Jul, [place] [id number] [place] [address] 83944- 4276 Jul, COPD (chronic obstructive pulmonary disease) with acute bronchitis J44.0 ; Atrial fibrillation, unspecified type I48.91 ; Polysubstance (excluding opioids) dependence F19.20 ; Congestive heart failure, unspecified congestive heart failure chronicity, unspecified congestive heart failure type I50.9 and Lumbago with sciatica, right side M54.41 [facility] [id number] [place] [address] [id number] Jul, [place] [id number] [place] [address] 00045- 2587 Jul, Seizure disorder G40.909 [place] [id number] [place] [address] 79744- 1876 Jul, Lumbago with sciatica, right side M54.41 [facility] [address] [place] [address] 26340- 0287 Jul, [facility] [id number] [place] [address] 61407- 7013 Jun, Congestive heart failure, unspecified congestive heart failure chronicity, unspecified congestive heart failure type I50.9 ; Lumbago with sciatica, right side M54.41 and Other chronic pain G89.29 [facility] [id number] [place] [address] 89793- 3275 Jun, [place] [id number] [place] [address] 70213- 4503 Jun, [place] [id number] [place] [address] 41545- 8149 May, Lumbago with sciatica, left side M54.42 [place] [id number] [place] [address] 98336- 6265 May, [facility] [id number] [place] [address] 54382 -8038 May, Unspecified fall, initial encounter W19.XXXA [place] [id number] [place] [address] 75321- 7441 May, Lumbago with sciatica, right side M54.41 [place] [id number] [place] [address] 32706- 6661 May, [place] [id number] [place] [address] 49893- 4272 May, Bloating R14.0 and Right hip pain M25.551 [place] [id number] [place] [address] 75132- 7345 Apr, [place] [id number] [place] [address] 89812- 3974 Apr, Lumbago with sciatica, left side M54.42 [place] [id number] [place] [address] 14006- 2554 Mar, [facility] [id number] [place] [address] 96731 -6067 Mar, Lumbago with sciatica, right side M54.41 [facility] [id number] [place] [address] 82102 -1922 Mar, Abdominal distension R14.0 [place] [address] 54069- 3134 Mar, Periumbilical abdominal pain R10.33 and Diarrhea, unspecified type R19.7 [facility] [place] [address] 42935 -8817 February, Seasonal allergic rhinitis, unspecified allergic rhinitis trigger J30.2 ; Acute middle ear effusion, bilateral H65.193 and Lumbago with sciatica, right side M54.41 [place] [address] 70778- 3854 February, Routine gynecological examination Z01.419 [place] [address] 91099- 9430 Jan, [place] [address] 77035- 9743 Jan, Atrial fibrillation, unspecified type I48.91 [facility] [place] [address] 32554 -4626 Jan, Lumbago with sciatica, right side M54.41 and Wound, open, toe, initial encounter S91.109A [place] [address] [id number] Jan, [facility] [place] [address] 04542 -2044 Jan, Acute bilateral low back pain without sciatica M54.5 [place] [address] 06523- 8775 Dec, Congestive heart failure, unspecified congestive heart failure chronicity, unspecified congestive heart failure type I50.9 [place] [address] 62102- 5469 Dec, [place] [address] 96302- 6977 Dec, Thrush, oral B37.0 and Lumbago with sciatica, right side M54.41 [place] [id number] [address]- 0239 Dec, [facility] [id number] [place] [address] 91587- 1627 Nov, [facility] [id number] [place] [address] 01797- 8191 Nov, [facility] [address] 94233- 6791 Oct, Polysubstance (excluding opioids) dependence F19.20 ; Other chronic pain G89.29 and Lumbago with sciatica, right side M54.41 [facility] [id number] [place] [address] 64201- 9866 Oct, [facility] [id number] [place] [address] 67267- 2663 Aug, Lumbago with sciatica, right side M54.41 ; Other chronic pain G89.29 and Anxiety F41.9 [facility] [id number] [place] [address] 42965- 3095 Aug, [facility] [id number] [place] [address] 21078- 5671 Aug, [facility] [id number] [place] [address] 54480- 6602 Aug, [facility] [id number] [place] [address] 50945- 0166 Aug, [facility] [id number] [place] [address] 33734- 3399 Aug, [facility] [id number] [place] [address] 81433- 6581 Aug, [facility] [address] [place] [address] 30451- 8618 Jul, Unspecified mood [affective] disorder F39 and Seizure disorder G40.909 [facility] [id number] [place] [address] 15030- 9789 Jul, [facility] [id number] [place] [address] 21160- 9471 Jul, [facility] [id number] [place] [address] 22266- 9128 Jul, Unspecified mood [affective] disorder F39 and Seizure disorder G40.909 [place] [id number] [place] [address] 32538- 2502 Jul, Polysubstance (excluding opioids) dependence F19.20 ; COPD ( chronic obstructive pulmonary disease) with acute bronchitis J44.0 ; Congestive heart failure, unspecified congestive heart failure chronicity, unspecified congestive heart failure type I50.9 ; Radiculopathy of lumbosacral region M54.17 and Radiculopathy, thoracic region M54.14 [place] [id number] [place] [address] 82960- 0462 Jun, Lumbago M54.5 [facility] [id number] [place] [address] 12465- 1234 May, [facility] [id number] [place] [address] 85430- 1888 May, [place] [id number] [place] [address] 35590- 9035 May, [facility] [id number] [place] [address] 96864- 3860 Apr, COPD (chronic obstructive pulmonary disease) with acute bronchitis J44.0 [facility] [id number] [place] [address] 79866- 6542 Apr, Major depressive disorder, recurrent episode, severe F33.2 and Polysubstance (excluding opioids) dependence F19.20 [facility] [address] [place] [address] 03573- 3167 Mar, Major depressive disorder, recurrent episode, severe F33.2 and Polysubstance (excluding opioids) dependence F19.20 [facility] [id number] [place] [address] 63718- 7368 16 Mar, 2016 Major depressive disorder, recurrent episode, severe F33.2 and Polysubstance (excluding opioids) dependence F19.20 [facility] [address] 81462- 0978 Mar, Major depressive disorder, recurrent episode, severe F33.2 and Polysubstance (excluding opioids) dependence F19.20 [facility] [address] 82902- 4255 February, Major depressive disorder, recurrent episode, severe F33.2 and Polysubstance (excluding opioids) dependence F19.20 [place] [address] 01557- 1470 February, [place] [address] 45508- 6461 February, COPD (chronic obstructive pulmonary disease) with acute bronchitis J44.0 [facility] [address] 72309 -2437 February, Sore throat J02.9 and Bronchitis J40 [place] [address] 29000- 7340 Jan, COPD (chronic obstructive pulmonary disease) with acute bronchitis J44.0 [facility] [address] 61520- 5431 Jan, COPD (chronic obstructive pulmonary disease) with acute bronchitis J44.0 [place] [address] 84709- 2307 Jan, [facility] [address] 84991- 3359 Dec, Gastritis K29.70 ; Constipation K59.00 and Lumbago M54.5 [place] [address] 39855- 3814 Dec, COPD (chronic obstructive pulmonary disease) with acute bronchitis J44.0 [facility] [address] 77513- 3061 18 Nov, 2015 Major depressive disorder, recurrent episode, severe F33.2 and Polysubstance (excluding opioids) dependence F19.20 [facility] [address] 07202 -0465 Oct, Oral thrush B37.0 and Drug abuse F19.10 [facility] [address] 50458- 8061 Oct, [facility] [address] 15443- 2171 Sep, COPD (chronic obstructive pulmonary disease) with acute bronchitis J44.0 ; Esophagitis, reflux K21.0 ; Seizure disorder G40.909 ; Primary insomnia F51.01 ; Edema, due to unspecified malnutrition type, unspecified type R60.9 ; Arthritis M19.90 and Thrush B37.0 [facility] [address] 39779- 8744 Aug, [facility] [address] 74965- 4479 Aug, [place] [address] 87359- 3973 Aug, [facility] [address] 83640- 4046 Jul, [place] [address] 78139- 4641 Jun, [place] [address] 11007- 5595 Jun, Counseling on substance use and abuse V65.42 and Obstructive chronic bronchitis, with (acute) exacerbation 491.21 [place] [address] [place] [address]- 1159 May, [facility] [id number] [place] [address] 15416- 3747 Apr, [facility] [address] [id number] [place] [address] 218728- 0466 Apr, Abdominal pain 789.00 and Back pain 724.5 [facility] [address] 94283- 8089 Mar, Back pain 724.5 and Illicit drug use 305.90 [facility] [address] [id number] [place] [address] 018231- 6335 February, Onychomycosis 110.1 [facility] [address] [place] [id number] [place] [address] 91241- 7485 February, Breast cancer screening V76.10 [place] [address] [place] [id number] [place] [address] 52087- 9707 February, [facility] [address] [id number] [place] [address] 37483- 9179 February, [facility] [address] [place] [id number] [place] [address] 71466- 9834 February, Cough 786.2 ; Obstructive chronic bronchitis, with (acute) exacerbation 491.21 ; Vomiting 787.03 ; 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 and Gastritis 535.50 [facility] [address] [place] [id number] [place] [address] 56580- 6000 Jan, [facility] [address] [id number] [place] [address] 64045- 3812 Jan, [facility] [id number] [place] [address] [id number]- 3946 Dec, [facility] [address] [place] [id number] [place] [address] 47738- 4444 Dec, [facility] [address] [id number] [place] [address] 33881- 2546 20 Dec, 2014 [facility] [place] [facility] [address] [id number] [place] [address]- 3017 13 Dec, 2014 [facility] [place] [facility] [address] [id number] [place] [address]- 5286 13 Dec, 2014 [facility] [place] [facility] [address] [id number] [place] [address]- 4008 12 Dec, 2014 [facility] [place] [facility] [address] [id number] [place] [address]- 6522 Dec, [facility] [place] [facility] [address] [id number] [place] [address]- 0517 Dec, [facility] [place] [facility] [address] [id number] [place] [address]- 4680 Dec, [facility] [place] [facility] [address] [id number] [place] [address]- 9862 Sep, [facility] [place] [facility] [address] [id number] [place] [address]- 2122 Sep, [facility] [place] [facility] [address] [id number] [place] [address]- 4937 Sep, [facility] [place] [facility] [address] [id number] [place] [address]- 8334 Sep, [facility] [place] [facility] [address] [id number] [place] [address]- 7883 Sep, [facility] [place] [facility] [address] [id number] [place] [address]- 6110 Sep, [facility] [place] [facility] [address] [id number] [place]- 4670 Sep, [facility] [place] [facility] [address] [id number] [place] [address]- 3344 Sep, [facility] [place] [facility] [address] [id number] [id number] [address] Sep, [facility] [place] [facility] [address] [id number] [place] [address] Sep, [facility] [place] [facility] [address] [id number] [place] [address] Aug, [facility] [place] [facility] [address] [id number] [place] [address] Aug, [facility] [place] [facility] [address] [id number] [place] [address] Aug, [facility] [place] [facility] [address] [id number] [place] [address] Aug, [facility] [place] [facility] [address] [id number] [place] [address] Jul, [facility] [place] [facility] [address] [id number] [place] [address] Jul, [facility] [place] [facility] [address] [id number] [place] [address] Jun, [facility] [place] [facility] [address] [id number] [place] [address] Jun, [facility] [place] [facility] [address] [id number] [place] [address] May, [facility] [place] [facility] [address] [id number] [place] [address] May, [facility] [place] [facility] [address] [id number] [place] [address] May, [facility] [place] [facility] [address] [id number] [place] [address] May, [facility] [place] [facility] [address] [id number] [place] [address] May, [facility] [place] [facility] [address] [id number] [place] [address] May, [facility] [place] [facility] [address] [id number] [place] [address] Apr, [facility] [place] [facility] [address] [id number] [place] [address] Apr, [facility] [place] [facility] [address] [id number] [place] [address] Apr, [facility] [place] [facility] [address] [id number] [place] [address] Apr, [facility] [place] [facility] [address] [address] [id number] [place] [address] February, [facility] [place] [facility] [address] [id number] [place] February, [facility] [place] [facility] [address] [id number] [place] [address] Oct, [facility] [place] [facility] [address] [id number] [place] [address] Oct, [facility] [place] [facility] [address] [id number] [place] [address] Oct, [facility] [place] [facility] [address] [id number] [place] Oct, [facility] [place] [facility] [address] [id number] [place] [address] Sep, [facility] [place] [facility] [address] [id number], [place] [address] Sep, [facility] [place] [facility] [address] [id number], [place] [address] Sep, [facility] [place] [facility] [address] [id number] [place] [address] Sep, [facility] [place] [facility] [address] [id number] [place] [address] Aug, [facility] [place] [facility] [address] [id number], [place] [address] Aug, [facility] [place] [facility] [address] [id number], [place] [address] Aug, [facility] [place] [facility] [address] [id number] [place] [address] Aug, [facility] [place] [facility] [address] [id number], [place] [address] Jul, [facility] [place] [facility] [address] [id number] [place] [address] Jul, [facility] [place] [facility] [address] [id number] [place] [address] Jul, [facility] [place] [facility] [address] [id number] [place] [address] Jul, [facility] [place] [facility] [address] [id number] [place] [address] Jul, [facility] [place] [facility] [address] [id number], [place] [address] Jul, [facility] [place] [facility] [address] [id number] [place] [address] Jul, [facility] [place] [facility] [address] [id number] [place] [address] Jul, [facility] [place] [facility] [address] [id number] [place] [address] Jul, [facility] [place] [facility] [address] [id number], [place] [address] Jul, [facility] [place] [facility] [address] [id number], [place] [address] Jun, [facility] [place] [facility] [address] [id number] [place] [address] May, [facility] [place] [facility] [address] [id number], [place] [address] Apr, [facility] [place] [facility] [address] [facility] [id number], [place] [address] Apr, [facility] [place] [facility] [address] [id number], [place] [address] Apr, [facility] [address] [id number], [place] [address] Mar, [facility] [id number], [place] [address] Mar, [facility] [id number], [place] [address] Mar, [facility] [id number], [place] [address] Mar, [facility] [id number] [place] [address] Mar, [facility] [id number], [place] [address] Sep, [facility] [id number], [place] [address] February, [facility] [address] [id number], [place] [address] Jan, IMMUNIZATIONS No Known Immunizations SOCIAL HISTORY Never Assessed REASON FOR VISIT Requests return call PLAN OF CARE VITAL SIGNS MEDICATIONS Medication Instructions Dosage Frequency Start Date End Date Duration Status Lidocaine 5 % Externally Once a day Cut patch in half and apply 1/2 to wrist and 1/2 to hip 24h Active RESULTS No Results PROCEDURES No [...] [facility] 02/06/17 Hospitalization History Altered mental status, lethargy-[facility] 07/10/17 Hospitalization History Chest pain-[facility] 08/05/17 Hospitalization History [facility] 10/2017 Hospitalization History Low potassium, A fib 01/2018 Hospitalization History Head injury 03/2018 Hospitalization History heart issues 06/2018 Hospitalization History Overdosed 06/2018
--- OUTSIDE RECORDS SUMMARY | 2018-11-13 16:20 | XMS REPORT ---
Author Author FRANCHESKA HEADLEY [facility] Address [address] [place] [address] Care Team Providers Care Resource Teacher Name Role Phone FRANCHESKA HEADLEY Unavailable PROBLEMS Type Condition ICD9-CM Code [id number] Code Onset Dates Condition Status SNOMED Code Problem Lumbago with sciatica, left side M54.42 Active 248997934 Problem Chronic pain syndrome G89.4 Active 616933720 Problem Infection of right eye H44.001 Active 68607444093030648 Problem Slow transit constipation K59.01 Active 34296244 Problem Primary insomnia F51.01 Active 890268843 Problem Mood disorder F39 Active 63222299 Problem Esophagitis, reflux K21.0 Active 783131876 Problem Atrial fibrillation, unspecified type I48.91 Active 99524449 Problem Unsteady gait R26.81 Active 74498398 Problem Fibromyalgia M79.7 Active 760303756 Problem Methamphetamine abuse F15.10 Active 109080608 Problem Chronic fatigue R53.82 Active 06963217 Problem Major depressive disorder, recurrent episode, severe F33.2 Active 959530787648 Problem Polysubstance (excluding opioids) dependence F19.20 Active 83735038 Problem Seizure disorder G40.909 Active 526217254 Problem COPD (chronic obstructive pulmonary disease) with acute bronchitis J44.0 Active 398128863031113 Problem Lumbago with sciatica, right side M54.41 Active 925504884 Problem Anxiety F41.9 Active 14788972 Problem Congestive heart failure, unspecified congestive heart failure chronicity, unspecified congestive heart failure type I50.9 Active 14064490 Problem Other chronic pain G89.29 Active 13297122 Problem Edema, due to unspecified malnutrition type, unspecified type R60.9 Active 573632832 Problem Unspecified mood [affective] disorder F39 Active 457875514 Problem Seasonal allergic rhinitis, unspecified allergic rhinitis trigger J30.2 Active 785543786 ALLERGIES Substance Reaction Event Type Date Status [...] Jul, Active ENCOUNTERS Encounter Location Date Diagnosis [place] [id number] [place] [address] 99295- 3367 Jul, [place] [address] 28903- 2619 Jul, Hip pain, right M25.551 [place] [address] 70308- 6290 Jul, Atrial fibrillation, unspecified type I48.91 [place] [id number] [place] [address] 69570- 9095 Jul, Mood disorder F39 ; Slow transit constipation K59.01 and Acute non-recurrent maxillary sinusitis J01.00 [place] [id number] [place] [address] 82105- 4436 Jun, Atrial fibrillation, unspecified type I48.91 ; Lumbago with sciatica, right side M54.41 ; Unspecified mood [affective] disorder F39 and Anxiety F41.9 [place] [id number] [place] [address] 17003- 0327 Jun, Lumbago with sciatica, right side M54.41 [place] [address] 96401- 4922 May, Anxiety F41.9 [place] [id number] [place] [address] 25623- 6058 May, [facility] [address] 24936 -6064 May, Methamphetamine abuse F15.10 [facility] [id number] [place] [address] 34835- 7593 May, [facility] [id number] [place] [address] 11025- 2473 Apr, [facility] [id number] [place] [address] 51931- 6192 Apr, Lumbago with sciatica, right side M54.41 ; Chronic pain syndrome G89.4 and Primary insomnia F51.01 [facility] [id number] [place] [address] 36027 -6091 Apr, Acute right ankle pain M25.571 [facility] [place] [id number] [place] [address] 73232 -6531 Apr, [facility] [address] 98835 -4287 Apr, Seasonal allergic rhinitis, unspecified trigger J30.2 and Acute right ankle pain M25.571 [place] [id number] [place] [address] 78040- 4332 Mar, Primary insomnia F51.01 and Anxiety F41.9 [place] [id number] [place] [address] 76842- 2084 Mar, [facility] [id number] [place] [address] 49324- 3073 Mar, [facility] [id number] [place] [address] 99652- 6507 13 Mar, 2018 Lumbago with sciatica, left side M54.42 [facility] [id number] [place] [address] 14711- 7795 Mar, [facility] [id number] [place] [address] 58455- 8432 05 Mar, 2018 Anxiety F41.9 [place] [id number] [place] [address] 85460- 4083 February, [place] [id number] [place] [address] 99310- 0793 February, Unspecified mood [affective] disorder F39 [place] [id number] [place] [address] 30353- 8339 February, [place] [address] 30595- 8602 February, [facility] [id number] [place] [address] 09698 -3172 February, Hordeolum externum of right upper eyelid H00.011 and Paronychia of finger of right hand L03.011 [place] [id number] [place] [address] 30713- 7864 February, [place] [address] 47826- 9430 February, Primary insomnia F51.01 ; Atrial fibrillation, unspecified type I48.91 ; Unsteady gait R26.81 ; General weakness R53.1 ; Chronic fatigue R53.82 ; Hypokalemia E87.6 and Other chronic pain G89.29 [place] [id number] [place] [address] 57144- 0816 February, [place] [id number] [place] [address] 74601- 9459 Jan, Lumbago with sciatica, right side M54.41 [place] [id number] [place] [address] 17660- 6845 Jan, Anxiety F41.9 ; Chronic pain syndrome G89.4 ; Folliculitis L73.9 and Fibromyalgia M79.7 [place] [id number] [place] [address] 76110- 2466 Jan, Lumbago with sciatica, right side M54.41 [place] [id number] [place] [address] 00585- 3693 Dec, [place] [address] 46583- 5534 Nov, Lumbago with sciatica, right side M54.41 [place] [id number] [place] [address] 22551- 8248 Nov, [place] [address] 40609- 9652 Nov, Unspecified mood [affective] disorder F39 ; Hypokalemia E87.6 and Anemia, unspecified type D64.9 [place] [id number] [place] [address] 98073- 6629 Nov, [place] [id number] [place] [address] 57311- 2946 Oct, Lumbago with sciatica, right side M54.41 [facility] [id number] [place] [address] 09687 -0197 19 Aug, 2017 Congestive heart failure, unspecified congestive heart failure chronicity, unspecified congestive heart failure type I50.9 and Peripheral edema R60.9 [place] [id number] [place] [address] 93145- 9150 17 Aug, 2017 Polysubstance (excluding opioids) dependence F19.20 and Lumbago with sciatica, left side M54.42 [place] [id number] [place] [address] 29969- 8345 17 Aug, 2017 [facility] [place] [address] 72436 -4821 14 Aug, 2017 Infection of right eye H44.001 [place] [id number] [place] [address] 57045- 7850 14 Aug, 2017 Congestive heart failure, unspecified congestive heart failure chronicity, unspecified congestive heart failure type I50.9 and Other chronic pain G89.29 [facility] [address] [address] 4431 Aug, Lumbago with sciatica, right side M54.41 [facility] [id number] [place] [address] 09055- 5784 Aug, Lumbago with sciatica, right side M54.41 [facility] [id number] [place] [address] 89585- 2966 Aug, [facility] [id number] [place] [address] 83499- 6973 Jul, [facility] [id number] [place] [address] 00500- 8046 Jul, COPD (chronic obstructive pulmonary disease) with acute bronchitis J44.0 ; Atrial fibrillation, unspecified type I48.91 ; Polysubstance (excluding opioids) dependence F19.20 ; Congestive heart failure, unspecified congestive heart failure chronicity, unspecified congestive heart failure type I50.9 and Lumbago with sciatica, right side M54.41 [facility] [id number] [place] [address] [id number] Jul, [facility] [id number] [place] [address] 49782- 0885 Jul, Seizure disorder G40.909 [facility] [address] [place] [address] 83445- 0037 Jul, Lumbago with sciatica, right side M54.41 [facility] [address] [place] [address] 68218- 1495 Jul, [facility] [id number] [place] [address] 28580- 0924 Jun, Congestive heart failure, unspecified congestive heart failure chronicity, unspecified congestive heart failure type I50.9 ; Lumbago with sciatica, right side M54.41 and Other chronic pain G89.29 [facility] [id number] [place] [address] 18308- 7032 Jun, [facility] [id number] [place] [address] 08406- 7202 Jun, [facility] [id number] [place] [address] 95115- 4414 May, Lumbago with sciatica, left side M54.42 [place] [address] 28995- 7271 May, [facility] [id number] [place] [address] 67416 -6518 May, Unspecified fall, initial encounter W19.XXXA [place] [id number] [place] [address] 60779- 4576 May, Lumbago with sciatica, right side M54.41 [place] [id number] [place] [address] 27307- 5303 May, [place] [id number] [place] [address] 90003- 8294 May, Bloating R14.0 and Right hip pain M25.551 [place] [id number] [place] [address] 43556- 3177 Apr, [place] [id number] [place] [address] 57335- 5996 Apr, Lumbago with sciatica, left side M54.42 [place] [id number] [place] [address] 82233- 1872 Mar, [facility] [id number] [place] [address] 83743 -0186 Mar, Lumbago with sciatica, right side M54.41 [facility] [id number] [place] [address] 01312 -1108 Mar, Abdominal distension R14.0 [place] [address] 22628- 2466 Mar, Periumbilical abdominal pain R10.33 and Diarrhea, unspecified type R19.7 [facility] [place] [address] 60813 -4197 February, Seasonal allergic rhinitis, unspecified allergic rhinitis trigger J30.2 ; Acute middle ear effusion, bilateral H65.193 and Lumbago with sciatica, right side M54.41 [place] [address] 33265- 7186 February, Routine gynecological examination Z01.419 [place] [address] 729437- 1327 Jan, [place] [address] 34832- 3041 Jan, Atrial fibrillation, unspecified type I48.91 [facility] [place] [address] 61856 -3686 Jan, Lumbago with sciatica, right side M54.41 and Wound, open, toe, initial encounter S91.109A [place] [address] [id number] Jan, [facility] [place] [address] 81195 -8462 Jan, Acute bilateral low back pain without sciatica M54.5 [place] [address] 07995- 8672 Dec, Congestive heart failure, unspecified congestive heart failure chronicity, unspecified congestive heart failure type I50.9 [place] [address] 20664- 0879 Dec, [place] [address] 58829- 9032 Dec, Thrush, oral B37.0 and Lumbago with sciatica, right side M54.41 [facility] [id number] [place] [address] 22250- 7540 Dec, [facility] [id number] [place] [address] 76624- 9303 Nov, [facility] [id number] [place] [address] 73201- 4473 Nov, [facility] [address] 38345- 5431 Oct, Polysubstance (excluding opioids) dependence F19.20 ; Other chronic pain G89.29 and Lumbago with sciatica, right side M54.41 [facility] [id number] [place] [address] 34782- 6907 Oct, [facility] [id number] [place] [address] 00461- 7340 Aug, Lumbago with sciatica, right side M54.41 ; Other chronic pain G89.29 and Anxiety F41.9 [facility] [id number] [place] [address] 30976- 3798 Aug, [facility] [id number] [place] [address] 74748- 4789 Aug, [facility] [id number] [place] [address] 89001- 9052 Aug, [facility] [id number] [place] [address] 88407- 3154 Aug, [facility] [id number] [place] [address] 18247- 0702 Aug, [facility] [id number] [place] [address] 80427- 5320 Aug, [facility] [id number] [place] [address] 96465- 9722 Jul, Unspecified mood [affective] disorder F39 and Seizure disorder G40.909 [facility] [id number] [place] [address] 97540- 6136 Jul, [facility] [id number] [place] [address] 34406- 2719 Jul, [facility] [id number] [place] [address] 36355- 9530 Jul, Unspecified mood [affective] disorder F39 and Seizure disorder G40.909 [place] [id number] [place] [address] 23200- 6114 Jul, Polysubstance (excluding opioids) dependence F19.20 ; COPD ( chronic obstructive pulmonary disease) with acute bronchitis J44.0 ; Congestive heart failure, unspecified congestive heart failure chronicity, unspecified congestive heart failure type I50.9 ; Radiculopathy of lumbosacral region M54.17 and Radiculopathy, thoracic region M54.14 [place] [id number] [place] [address] 06132- 9497 Jun, Lumbago M54.5 [facility] [id number] [place] [address] 91486- 8996 May, [place] [id number] [place] [address] 28326- 9997 May, [place] [id number] [place] [address] 40701- 9798 May, [facility] [id number] [place] [address] 02436- 5761 Apr, COPD (chronic obstructive pulmonary disease) with acute bronchitis J44.0 [facility] [id number] [place] [address] 12648- 9737 Apr, Major depressive disorder, recurrent episode, severe F33.2 and Polysubstance (excluding opioids) dependence F19.20 [facility] [address] [place] [address] 75040- 8677 Mar, Major depressive disorder, recurrent episode, severe F33.2 and Polysubstance (excluding opioids) dependence F19.20 [facility] [id number] [place] [address] 65628- 6388 16 Mar, 2016 Major depressive disorder, recurrent episode, severe F33.2 and Polysubstance (excluding opioids) dependence F19.20 [facility] [address] 68042- 1014 Mar, Major depressive disorder, recurrent episode, severe F33.2 and Polysubstance (excluding opioids) dependence F19.20 [place] [address] 48325- 3142 February, Major depressive disorder, recurrent episode, severe F33.2 and Polysubstance (excluding opioids) dependence F19.20 [place] [address] 37519- 5487 February, [place] [address] 10507- 6935 February, COPD (chronic obstructive pulmonary disease) with acute bronchitis J44.0 [facility] [address] 32514 -8998 February, Sore throat J02.9 and Bronchitis J40 [place] [id number] [place] [address] 26226- 0178 Jan, COPD (chronic obstructive pulmonary disease) with acute bronchitis J44.0 [facility] [address] 19860- 2383 Jan, COPD (chronic obstructive pulmonary disease) with acute bronchitis J44.0 [place] [address] 15429- 5045 Jan, [facility] [address] 55272- 3776 Dec, Gastritis K29.70 ; Constipation K59.00 and Lumbago M54.5 [place] [address] [place] [id number] [place] [address] 26930- 8955 Dec, COPD (chronic obstructive pulmonary disease) with acute bronchitis J44.0 [facility] [id number] [place] [address] 87481- 1351 18 Nov, 2015 Major depressive disorder, recurrent episode, severe F33.2 and Polysubstance (excluding opioids) dependence F19.20 [facility] [id number] [place] [address] 49152 -2447 Oct, Oral thrush B37.0 and Drug abuse F19.10 [place] [address] 06534- 2718 Oct, [place] [id number] [place] [address] 35779- 2286 Sep, COPD (chronic obstructive pulmonary disease) with acute bronchitis J44.0 ; Esophagitis, reflux K21.0 ; Seizure disorder G40.909 ; Primary insomnia F51.01 ; Edema, due to unspecified malnutrition type, unspecified type R60.9 ; Arthritis M19.90 and Thrush B37.0 [place] [id number] [place] [address] 60140- 5533 Aug, [place] [id number] [place] [address] 79220- 7236 Aug, [place] [id number] [place] [address] 56571- 0446 05 Aug, 2015 [place] [id number] [place] [address] 81646- 4156 Jul, [place] [id number] [place] [address] 09084- 0273 Jun, [place] [id number] [place] [address] 32847- 4283 Jun, Counseling on substance use and abuse V65.42 and Obstructive chronic bronchitis, with (acute) exacerbation 491.21 [place] [address] [address]- 4237 May, [facility] [id number] [place] [address] 66386- 6623 Apr, [facility] [id number] [place] [address] 819456- 3276 Apr, Abdominal pain 789.00 and Back pain 724.5 [facility] [address] [place] [place] [id number] [place] [address] 30723- 4005 Mar, Back pain 724.5 and Illicit drug use 305.90 [place] [address] [place] [place] [id number] [place] [address] 39313- 9848 February, Onychomycosis 110.1 [facility] [address] [place] [id number] [place] [address] 08522- 2831 February, Breast cancer screening V76.10 [facility] [address] [place] [place] [id number] [place] [address] 54531- 1729 February, [facility] [id number] [place] [address] 99990- 7232 February, [facility] [id number] [place] [address] 67152- 3341 February, Cough 786.2 ; Obstructive chronic bronchitis, with (acute) exacerbation 491.21 ; Vomiting 787.03 ; 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 and Gastritis 535.50 [facility] [address] [place] [address] 94987- 2138 Jan, [facility] [address] [id number] [place] [address] 45079- 1195 Jan, [facility] [id number] [place] [address] 597037- 4386 Dec, [facility] [address] [place] [address] 19264- 5056 Dec, [facility] [address] [place] [place] [id number] [place] [address] 54923- 0040 20 Dec, 2014 [facility] [place] [facility] [address] [id number] [place] [address]- 7655 13 Dec, 2014 [facility] [place] [facility] [address] [id number] [place] [address]- 6204 13 Dec, 2014 [facility] [place] [facility] [address] [id number] [place] [address]- 7228 12 Dec, 2014 [facility] [place] [facility] [address] [id number] [place] [address]- 0926 12 Dec, 2014 [facility] [place] [facility] [address] [id number] [place] [address]- 1116 Dec, [facility] [place] [facility] [address] [id number] [place] [address]- 2539 Dec, [facility] [place] [facility] [address] [id number] [place] [address]- 4320 Sep, [facility] [place] [facility] [address] [id number] [place] [address]- 0798 Sep, [facility] [place] [facility] [address] [id number] [place] [address]- 6513 Sep, [facility] [place] [facility] [address] [id number] [place] [address] Sep, [facility] [place] [facility] [address] [id number] [place] [address] Sep, [facility] [place] [facility] [address] [id number] [place] [address] Sep, [facility] [place] [facility] [address] [id number] [place] [address] Sep, [facility] [place] [facility] [address] [id number] [place] [address] Sep, [facility] [place] [facility] [address] [facility] [id number] [place] [address]- [address] Sep, [facility] [place] [facility] [address] [id number] [place] [address] Sep, [facility] [place] [facility] [address] [id number] [place] [address] Aug, [facility] [place] [facility] [address] [id number] [place] [address] Aug, [facility] [place] [facility] [address] [id number] [place] [address]- [address] Aug, [facility] [place] [facility] [address] [id number] [place] [address] Aug, [facility] [place] [facility] [address] [id number] [place] [address] Jul, [facility] [place] [facility] [address] [id number] [place] [address]- [address] Jul, [facility] [place] [facility] [address] [id number] [place] [address] Jun, [facility] [place] [facility] [address] [id number] [place] [address]- [address] Jun, [facility] [place] [facility] [address] [id number] [place] [address] May, [facility] [place] [facility] [address] [id number] [place] [address] May, [facility] [place] [facility] [address] [id number] [place] [address] May, [facility] [place] [facility] [address] [id number] [place] [address]- [address] May, [facility] [place] [facility] [address] [id number] [place] [address] May, [facility] [place] [facility] [address] [id number] [place] [address]- [address] May, [facility] [place] [facility] [address] [id number] [place] [address]- [address] Apr, [facility] [place] [facility] [address] [id number] [place] [address]- [address] Apr, [facility] [place] [facility] [address] [id number] [place] [address]- [address] Apr, [facility] [place] [facility] [address] [id number] [place] [address]- [address] Apr, [facility] [place] [facility] [address] [id number] [place] [address] February, [facility] [place] [facility] [address] [id number] [place] [address] February, [facility] [place] [facility] [address] [id number] [place] [address] Oct, [facility] [place] [facility] [address] [id number] [place] [address] Oct, [facility] [place] [facility] [address] [id number] [place] [address] Oct, [facility] [place] [facility] [address] [id number] [place] [address] Oct, [facility] [place] [facility] [address] [id number] [place] [address] Sep, [facility] [place] [facility] [address] [id number] [place] [address] Sep, [facility] [place] [facility] [address] [id number], [place] [address] Sep, [facility] [place] [facility] [address] [id number] [place] [address] Sep, [facility] [place] [facility] [address] [id number] [place] [address] Aug, [facility] [place] [facility] [address] [id number] [place] [address] Aug, [facility] [place] [facility] [address] [id number] [place] [address] Aug, [facility] [place] [facility] [address] [id number] [place] [address] Aug, [facility] [place] [facility] [address] [id number] [place] [address] Jul, [facility] [place] [facility] [address] [id number] [place] Jul, [facility] [place] [facility] [address] [id number] [place] [address] Jul, [facility] [place] [facility] [address] [id number] [place] [address] Jul, [facility] [place] [facility] [address] [id number] [place] [address] Jul, [facility] [place] [facility] [address] [id number] [place] [address] Jul, [facility] [place] [facility] [address] [id number] [place] [address] Jul, [facility] [place] [facility] [address] [id number] [place] [address] Jul, [facility] [place] [facility] [address] [id number] [place] [address] Jul, [facility] [place] [facility] [address] [id number] [place] [address] Jul, [facility] [place] [facility] [address] [id number] [place] [address] Jun, [facility] [place] [facility] [address] [id number] [place] [address] May, [facility] [place] [facility] [address] [id number] [place] [address] Apr, [facility] [place] [facility] [address] [id number] [place] [address] Apr, [facility] [address] [id number] [address] Apr, [facility] [id number], [place] [address] Mar, [facility] [id number], [place] [address] Mar, [facility] [id number], [place] [address] Mar, [facility] [id number], [place] [address] Mar, [facility] [address] [id number] [address] Mar, [facility] [id number], [place] [address] Sep, [facility] [id number], [place] [address] February, [facility] [address] [id number], [place] [address] Jan, IMMUNIZATIONS Vaccine Route Administration Date Status TORADOL (IM) 60 MG/2ML (UP TO 15 MG) IM Intramuscular Aug 19, 2018 Administered SOCIAL HISTORY Never Assessed [facility] V[facility] VITAL SIGNS MEDICATIONS Unknown Medications RESULTS No Results PROCEDURES Procedure Date Ordered Result Body Site TORADOL (IM) 60 MG/2ML (UP TO 15 MG) Aug 19, 2018 THER/PROPH/DIAG INJ, SC/IM Aug 19, 2018 INSTRUCTIONS MEDICATIONS ADMINISTERED No Known Medications [...] bleeding 2015 Hospitalization History A fib with [facility] 02/06/17 Hospitalization History Altered mental status, lethargy-[facility] 07/10/17 Hospitalization History Chest pain-[facility] 08/05/17 Hospitalization History [facility] 10/2017 Hospitalization History Low potassium, A fib 01/2018 Hospitalization History Head injury 03/2018 Hospitalization History heart issues 06/2018 Hospitalization History Overdosed 06/2018
--- OUTSIDE RECORDS SUMMARY | 2018-11-13 16:20 | XMS REPORT ---
Author Author FRANCHESKA HEADLEY Organization [facility] Address [address] [place] [address] Care Team Providers Care Mold Chipper Name Role Phone FRANCHESKA HEADLEY Unavailable PROBLEMS Type Condition ICD9-CM Code [id number] Code Onset Dates Condition Status SNOMED Code Problem Lumbago with sciatica, left side M54.42 Active 086146309 Problem Chronic pain syndrome G89.4 Active 254397967 Problem Infection of right eye H44.001 Active 32908065042452694 Problem Slow transit constipation K59.01 Active 39836425 Problem Primary insomnia F51.01 Active 054997335 Problem Mood disorder F39 Active 93382674 Problem Esophagitis, reflux K21.0 Active 093704761 Problem Atrial fibrillation, unspecified type I48.91 Active 48463545 Problem Unsteady gait R26.81 Active 59091437 Problem Fibromyalgia M79.7 Active 745308101 Problem Methamphetamine abuse F15.10 Active 596440165 Problem Chronic fatigue R53.82 Active 49153179 Problem Major depressive disorder, recurrent episode, severe F33.2 Active 568287442416 Problem Polysubstance (excluding opioids) dependence F19.20 Active 78089936 Problem Seizure disorder G40.909 Active 419688768 Problem COPD (chronic obstructive pulmonary disease) with acute bronchitis J44.0 Active 925516330819977 Problem Lumbago with sciatica, right side M54.41 Active 773892593 Problem Anxiety F41.9 Active 43518067 Problem Congestive heart failure, unspecified congestive heart failure chronicity, unspecified congestive heart failure type I50.9 Active 62450679 Problem Other chronic pain G89.29 Active 89663656 Problem Edema, due to unspecified malnutrition type, unspecified type R60.9 Active 654300502 Problem Unspecified mood [affective] disorder F39 Active 544049509 Problem Seasonal allergic rhinitis, unspecified allergic rhinitis trigger J30.2 Active 951592986 ALLERGIES No Information ENCOUNTERS Encounter Location Date Diagnosis [facility] [id number] [place] [address] 34313- 0067 Aug, [facility] [address] [id number] [place] [address] 40506- 3085 Jul, [facility] [id number] [place] [address] 24003- 4194 Jul, Hip pain, right M25.551 [facility] [address] 89758- 2642 16 Jul, 2018 Atrial fibrillation, unspecified type I48.91 [place] [id number] [place] [address] 98994- 5244 Jul, Mood disorder F39 ; Slow transit constipation K59.01 and Acute non-recurrent maxillary sinusitis J01.00 [place] [address] [address] [id number] [place] [address] 83733- 0254 Jun, Atrial fibrillation, unspecified type I48.91 ; Lumbago with sciatica, right side M54.41 ; Unspecified mood [affective] disorder F39 and Anxiety F41.9 [place] [id number] [place] [address] 73273- 5040 Jun, Lumbago with sciatica, right side M54.41 [facility] [address] [place] [address] 68280- 5715 May, Anxiety F41.9 [facility] [id number] [place] [address] 51124- 6882 May, [facility] [id number] [place] [address] 24139 -5317 May, Methamphetamine abuse F15.10 [facility] [id number] [place] [address] 55971- 1064 May, [facility] [id number] [place] [address] 27593- 8222 Apr, [facility] [id number] [place] [address] 17741- 1019 Apr, Lumbago with sciatica, right side M54.41 ; Chronic pain syndrome G89.4 and Primary insomnia F51.01 [facility] [id number] [place] [address] 04301 -7797 Apr, Acute right ankle pain M25.571 [facility] [address] 61086 -7117 Apr, [facility] [address] 91346 -4706 Apr, Seasonal allergic rhinitis, unspecified trigger J30.2 and Acute right ankle pain M25.571 [place] [id number] [place] [address] 32773- 3682 Mar, Primary insomnia F51.01 and Anxiety F41.9 [place] [id number] [place] [address] 76604- 4023 Mar, [place] [id number] [place] [address] 68945- 3698 Mar, [place] [id number] [place] [address] 74218- 5916 Mar, Lumbago with sciatica, left side M54.42 [place] [id number] [place] [address] 61453- 1835 Mar, [place] [id number] [place] [address] 67497- 2293 Mar, Anxiety F41.9 [place] [id number] [place] [address] 96192- 2544 February, [place] [id number] [place] [address] 34623- 2029 February, Unspecified mood [affective] disorder F39 [place] [id number] [place] [address] 56032- 8888 February, [place] [id number] [place] [address] 23009- 8870 February, [facility] [address] 62740 -0924 February, Hordeolum externum of right upper eyelid H00.011 and Paronychia of finger of right hand L03.011 [place] [address] 32949- 8700 February, [place] [address] 47623- 9038 February, Primary insomnia F51.01 ; Atrial fibrillation, unspecified type I48.91 ; Unsteady gait R26.81 ; General weakness R53.1 ; Chronic fatigue R53.82 ; Hypokalemia E87.6 and Other chronic pain G89.29 [place] [address] 82493- 9033 February, [place] [address] 93416- 1617 Jan, Lumbago with sciatica, right side M54.41 [place] [id number] [place] [address] 41587- 4812 Jan, Anxiety F41.9 ; Chronic pain syndrome G89.4 ; Folliculitis L73.9 and Fibromyalgia M79.7 [place] [id number] [place] [address] 80939- 6958 Jan, Lumbago with sciatica, right side M54.41 [place] [id number] [place] [address] 86540- 4080 Dec, [facility] [id number] [place] [address] 37160- 5530 Nov, Lumbago with sciatica, right side M54.41 [place] [address] 59278- 7183 Nov, [place] [id number] [place] [address] 21208- 8337 Nov, Unspecified mood [affective] disorder F39 ; Hypokalemia E87.6 and Anemia, unspecified type D64.9 [place] [address] 66940- 7037 Nov, [place] [address] 41335- 5795 Oct, Lumbago with sciatica, right side M54.41 [facility] [place] [address] 34709 -7444 Aug, Congestive heart failure, unspecified congestive heart failure chronicity, unspecified congestive heart failure type I50.9 and Peripheral edema R60.9 [place] [address] 96209- 1118 Aug, Polysubstance (excluding opioids) dependence F19.20 and Lumbago with sciatica, left side M54.42 [place] [address] 53368- 1497 17 Aug, 2017 [facility] [place] [id number] [place] [address] 25180 -1047 Aug, Infection of right eye H44.001 [place] [address] 59742- 9705 14 Aug, 2017 Congestive heart failure, unspecified congestive heart failure chronicity, unspecified congestive heart failure type I50.9 and Other chronic pain G89.29 [place] [address] 01872- 2366 09 Aug, 2017 Lumbago with sciatica, right side M54.41 [place] [address] 33931- 5898 Aug, Lumbago with sciatica, right side M54.41 [place] [address] [address]- 3159 Aug, [facility] [id number] [place] [address] 69116- 2998 Jul, [facility] [id number] [place] [address] 12258- 1318 Jul, COPD (chronic obstructive pulmonary disease) with acute bronchitis J44.0 ; Atrial fibrillation, unspecified type I48.91 ; Polysubstance (excluding opioids) dependence F19.20 ; Congestive heart failure, unspecified congestive heart failure chronicity, unspecified congestive heart failure type I50.9 and Lumbago with sciatica, right side M54.41 [facility] [id number] [place] [address] [id number] Jul, [facility] [id number] [place] [address] 96073- 5125 Jul, Seizure disorder G40.909 [facility] [id number] [place] [address] 12320- 5804 Jul, Lumbago with sciatica, right side M54.41 [facility] [id number] [place] [address] 37833- 8317 Jul, [facility] [id number] [place] [address] 20586- 6333 Jun, Congestive heart failure, unspecified congestive heart failure chronicity, unspecified congestive heart failure type I50.9 ; Lumbago with sciatica, right side M54.41 and Other chronic pain G89.29 [facility] [address] [address]- 2982 Jun, [facility] [id number] [place] [address] 78479- 9316 Jun, [facility] [id number] [place] [address] 43302- 2404 May, Lumbago with sciatica, left side M54.42 [place] [id number] [place] [address] 62756- 5164 May, [facility] [place] [address] 52272 -5356 May, Unspecified fall, initial encounter W19.XXXA [place] [address] 92786- 2828 May, Lumbago with sciatica, right side M54.41 [place] [id number] [place] [address] 77127- 9067 May, [place] [address] 27671- 2814 May, Bloating R14.0 and Right hip pain M25.551 [place] [id number] [place] [address] 00779- 3005 Apr, [place] [address] [id number] [place] [address] 76689- 5300 Apr, Lumbago with sciatica, left side M54.42 [place] [address] 51223- 4506 Mar, [facility] [place] [address] [id number] [place] [address] 89960 -6225 Mar, Lumbago with sciatica, right side M54.41 [facility] [address] [place] [id number] [place] [address] 11132 -7453 Mar, Abdominal distension R14.0 [place] [address] [id number] [place] [address] 11503- 5963 Mar, Periumbilical abdominal pain R10.33 and Diarrhea, unspecified type R19.7 [facility] [place] [address] [id number] [place] [address] 54366 -7860 February, Seasonal allergic rhinitis, unspecified allergic rhinitis trigger J30.2 ; Acute middle ear effusion, bilateral H65.193 and Lumbago with sciatica, right side M54.41 [facility] [id number] [place] [address] 61893- 8107 February, Routine gynecological examination Z01.419 [place] [id number] [place] [address] 79252- 3620 Jan, [place] [address] 35323- 9077 Jan, Atrial fibrillation, unspecified type I48.91 [facility] [address] 43569 -2816 Jan, Lumbago with sciatica, right side M54.41 and Wound, open, toe, initial encounter S91.109A [place] [address] [id number] Jan, [facility] [address] 99240 -8829 Jan, Acute bilateral low back pain without sciatica M54.5 [place] [address] 11227- 4095 Dec, Congestive heart failure, unspecified congestive heart failure chronicity, unspecified congestive heart failure type I50.9 [place] [address] 60432- 2307 Dec, [place] [address] 92488- 9587 Dec, Thrush, oral B37.0 and Lumbago with sciatica, right side M54.41 [place] [address] 50800- 0631 Dec, [place] [address] 66144- 5551 Nov, [place] [address] 98454- 1886 Nov, [facility] [id number] [place] [address] 87065- 2974 Oct, Polysubstance (excluding opioids) dependence F19.20 ; Other chronic pain G89.29 and Lumbago with sciatica, right side M54.41 [facility] [id number] [place] [address] 76396- 5829 Oct, [facility] [address] 07111- 2731 Aug, Lumbago with sciatica, right side M54.41 ; Other chronic pain G89.29 and Anxiety F41.9 [facility] [id number] [place] [address] 47707- 2977 Aug, [facility] [id number] [place] [address] 56502- 7475 Aug, [facility] [id number] [place] [address] 07378- 2146 Aug, [facility] [id number] [place] [address] 44243- 8759 Aug, [facility] [id number] [place] [address] 88810- 1636 Aug, [facility] [id number] [place] [address] 73784- 8329 Aug, [facility] [id number] [place] [address] 86317- 9647 Jul, Unspecified mood [affective] disorder F39 and Seizure disorder G40.909 [facility] [id number] [place] [address] 40004- 2037 Jul, [facility] [id number] [place] [address] 40249- 8838 Jul, [facility] [id number] [place] [address] 49928- 8870 Jul, Unspecified mood [affective] disorder F39 and Seizure disorder G40.909 [facility] [id number] [place] [address] 25189- 2925 Jul, Polysubstance (excluding opioids) dependence F19.20 ; COPD ( chronic obstructive pulmonary disease) with acute bronchitis J44.0 ; Congestive heart failure, unspecified congestive heart failure chronicity, unspecified congestive heart failure type I50.9 ; Radiculopathy of lumbosacral region M54.17 and Radiculopathy, thoracic region M54.14 [facility] [id number] [place] [address] 85548- 6544 Jun, Lumbago M54.5 [place] [id number] [place] [address] 43336- 2522 May, [place] [address] [id number] [place] [address] 24149- 7478 May, [facility] [id number] [place] [address] 81052- 0831 May, [facility] [id number] [place] [address] 11772- 8998 Apr, COPD (chronic obstructive pulmonary disease) with acute bronchitis J44.0 [facility] [id number] [place] [address] 79274- 1924 Apr, Major depressive disorder, recurrent episode, severe F33.2 and Polysubstance (excluding opioids) dependence F19.20 [facility] [address] [place] [address] 12066- 1902 Mar, Major depressive disorder, recurrent episode, severe F33.2 and Polysubstance (excluding opioids) dependence F19.20 [facility] [address] [place] [id number] [place] [address] 26349- 6904 Mar, Major depressive disorder, recurrent episode, severe F33.2 and Polysubstance (excluding opioids) dependence F19.20 [facility] [id number] [place] [address] 79059- 4777 Mar, Major depressive disorder, recurrent episode, severe F33.2 and Polysubstance (excluding opioids) dependence F19.20 [facility] [address] [id number] [place] [address] 67671- 4684 February, Major depressive disorder, recurrent episode, severe F33.2 and Polysubstance (excluding opioids) dependence F19.20 [facility] [id number] [place] [address] 63675- 8526 February, [place] [address] 44976- 7431 February, COPD (chronic obstructive pulmonary disease) with acute bronchitis J44.0 [facility] [id number] [place] [address] 79200 -0927 February, Sore throat J02.9 and Bronchitis J40 [place] [address] 86343- 0018 Jan, COPD (chronic obstructive pulmonary disease) with acute bronchitis J44.0 [place] [address] [place] [id number] [place] [address] 59045- 4833 Jan, COPD (chronic obstructive pulmonary disease) with acute bronchitis J44.0 [place] [address] [place] [id number] [place] [address] 68389- 0192 Jan, [facility] [address] 65149- 9587 Dec, Gastritis K29.70 ; Constipation K59.00 and Lumbago M54.5 [place] [address] 45058- 5103 Dec, COPD (chronic obstructive pulmonary disease) with acute bronchitis J44.0 [place] [address] [place] [id number] [place] [address] 48327- 1386 Nov, Major depressive disorder, recurrent episode, severe F33.2 and Polysubstance (excluding opioids) dependence F19.20 [facility] [id number] [place] [address] 78216 -5419 Oct, Oral thrush B37.0 and Drug abuse F19.10 [facility] [id number] [place] [address] 95931- 5472 Oct, [facility] [address] 16104- 2422 Sep, COPD (chronic obstructive pulmonary disease) with acute bronchitis J44.0 ; Esophagitis, reflux K21.0 ; Seizure disorder G40.909 ; Primary insomnia F51.01 ; Edema, due to unspecified malnutrition type, unspecified type R60.9 ; Arthritis M19.90 and Thrush B37.0 [facility] [address] [id number] [place] [address] 32140- 5630 Aug, [facility] [address] 50779- 8111 Aug, [facility] [address] 08152- 3306 Aug, [facility] [address] 20293- 7060 Jul, [facility] [address] [place] [place] [id number] [place] [address] 88364- 4381 Jun, [facility] [address] 79775- 7751 Jun, Counseling on substance use and abuse V65.42 and Obstructive chronic bronchitis, with (acute) exacerbation 491.21 [facility] [address] [place] [id number] [place] [address] 18237- 3891 May, [facility] [address] 44353- 0308 Apr, [facility] [address] [place] [id number] [place] [address] 97306- 9623 Apr, Abdominal pain 789.00 and Back pain 724.5 [facility] [address], [place] [address]- 6436 Mar, Back pain 724.5 and Illicit drug use 305.90 [facility] [address] [place] [id number] [place] [address] 91432- 1847 February, Onychomycosis 110.1 [facility] [address] [place] [id number] [place] [address] 01937- 0047 February, Breast cancer screening V76.10 [facility] [address] [place] [id number] [place] [address] 05503- 1426 February, [facility] [address] [place] [id number] [place] [address] 22237- 2749 February, [facility] [address] [place] [id number] [place] [address] 44151- 6943 February, Cough 786.2 ; Obstructive chronic bronchitis, with (acute) exacerbation 491.21 ; Vomiting 787.03 ; 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 and Gastritis 535.50 [facility] [address], [place] [address]- 6462 Jan, [facility] [address] [place] [id number] [place] [address] 42185- 1028 Jan, [facility] [address], [place] [address]- 5453 24 Dec, 2014 [facility] [id number] [place] [address] 67715- 9599 Dec, [facility] [address], [place] [address]- 6212 Dec, [facility] [address] [place] [id number] [place] [address] 33775- 3678 Dec, [facility] [address], [place] [address]- 8719 Dec, [facility] [address] [place] [id number] [place] [address] [place] [address]- 9003 Dec, [facility] [place] [facility] [address] [id number] [place] [address]- 0932 Dec, [facility] [place] [facility] [address] [id number] [place] [address]- 4440 Dec, [facility] [place] [facility] [address] [id number] [place] [address]- 1141 Dec, [facility] [place] [facility] [address] [id number] [place] [address]- 7908 Sep, [facility] [place] [facility] [address] [id number] [place] [address]- 4647 Sep, [facility] [place] [facility] [address] [id number] [place] [address]- 1609 Sep, [facility] [place] [facility] [address] [id number] [place] [address]- 5345 Sep, [facility] [place] [facility] [address] [id number] [place] [address]- 9268 Sep, [facility] [place] [facility] [address] [id number] [place] [address]- 6448 Sep, [facility] [place] [facility] [address] [id number] [place] [address]- 5303 Sep, [facility] [place] [facility] [address] [id number] [place] [address] Sep, [facility] [place] [facility] [address] [id number] [place] [address] Sep, [facility] [place] [facility] [address] [id number] [place] [address] Sep, [facility] [place] [facility] [address] [id number] [place] [address] Aug, [facility] [place] [facility] [address] [id number] [place] [address] Aug, [facility] [place] [facility] [address] [id number] [place] [address] Aug, [facility] [place] [facility] [address] [id number] [place] [address] Aug, [facility] [place] [facility] [address] [id number] [place] [address] Jul, [facility] [place] [facility] [address] [id number] [place] [address] Jul, [facility] [place] [facility] [address] [id number] [place] [address] Jun, [facility] [place] [facility] [address] [id number] [place] [address] Jun, [facility] [place] [facility] [address] [id number] [place] [address] May, [facility] [place] [facility] [address] [id number] [place] [address] May, [facility] [place] [facility] [address] [id number] [place] [address] May, [facility] [place] [facility] [address] [id number] [place] [address] May, [facility] [place] [facility] [address] [id number] [place] [address] May, [facility] [place] [facility] [address] [id number] [place] [address] May, [facility] [place] [facility] [address] [id number] [place] [address] Apr, [facility] [place] [facility] [address] [id number] [place] [address] Apr, [facility] [place] [facility] [address] [id number] [place] [address] Apr, [facility] [place] [facility] [address] [id number] [place] [address] Apr, [facility] [address] [id number] [place] [address] February, [facility] [place] [facility] [address] [id number] [place] [address] February, [facility] [place] [facility] [address] [id number] [place] [address] Oct, [facility] [place] [facility] [address] [id number] [place] [address] Oct, [facility] [place] [facility] [address] [id number] [place] [address] Oct, [facility] [place] [facility] [address] [id number] [place] [address] Oct, [facility] [facility] [address] [id number] [place] [address] Sep, [facility] [place] [facility] [address] [id number], [place] [address] Sep, [facility] [place] [facility] [address] [id number], [place] [address] Sep, [facility] [place] [facility] [address] [id number], [place] [address] Sep, [facility] [place] [facility] [address] [id number], [place] [address] Aug, [facility] [place] [facility] [address] [id number], [place] [address] Aug, [facility] [place] [facility] [address] [id number], [place] [address] Aug, [facility] [facility] [address] [id number], [place] [address] Aug, [facility] [facility] [address] [id number], [place] [address] Jul, [facility] [place] [facility] [address] [id number] [place] [address] Jul, [facility] [place] [facility] [address] [id number] [place] [address] Jul, [facility] [place] [facility] [address] [id number] [place] [address] Jul, [facility] [place] [facility] [address] [id number] [place] [address] Jul, [facility] [place] [facility] [address] [id number] [place] [address] Jul, [facility] [place] [facility] [address] [id number] [place] [address] Jul, [facility] [place] [facility] [address] [id number] [place] [address] Jul, [facility] [place] [facility] [address] [id number] [place] [address] Jul, [facility] [place] [facility] [address] [id number] [place] [address] Jul, [facility] [place] [facility] [address] [id number] [place] [address] Jun, [facility] [facility] [address] [id number] [place] [address] May, [facility] [place] [facility] [address] [id number] [place] [address] Apr, [facility] [place] [facility] [address] [id number] [place] [address] Apr, [facility] [place] [facility] [address] [id number] [place] [address] Apr, [facility] [place] [facility] [address] [id number] [place] [address] Mar, [facility] [place] [facility] [address] [id number] [place] [address] Mar, [facility] [address] [facility] [id number], [place] [address] Mar, [facility] [address] [id number], [place] [address] Mar, [facility] [address] [id number], [place] [address] Mar, [facility] [address] [id number], [place] [address] Sep, [facility] [address] [id number], [place] [address] February, [facility] [address] [id number], [place] [address] Jan, IMMUNIZATIONS No Known Immunizations SOCIAL HISTORY Never Assessed REASON FOR VISIT med refills PLAN OF CARE VITAL SIGNS MEDICATIONS Medication Instructions Dosage Frequency Start Date End Date Duration Status Lexapro 10 MG Orally Once a day 1 tablet 24h 30 day(s) Active Benztropine Mesylate 0.5 MG Orally 2 times a day 1 tablet 12h 30 days Active Furosemide 20 MG Orally twice a day 1 tablet 12h 30 days Active RESULTS No Results PROCEDURES [...] bleeding 2015 Hospitalization History A fib with [facility] 02/06/17 Hospitalization History Altered mental status, lethargy-[facility] 07/10/17 Hospitalization History Chest pain-[facility] 08/05/17 Hospitalization History [facility] 10/2017 Hospitalization History Low potassium, A fib 01/2018 Hospitalization History Head injury 03/2018 Hospitalization History heart issues 06/2018 Hospitalization History Overdosed 06/2018
--- OUTSIDE RECORDS SUMMARY | 2018-11-13 16:21 | XMS REPORT ---
Author Author FRANCHESKA HEADLEY Organization [facility] Address [address] [place] [address] Care Team Providers Care Dish Carrier Name Role Phone FRANCHESKA HEADLEY Unavailable PROBLEMS Type Condition ICD9-CM Code OVW25-AT Code Onset Dates Condition Status SNOMED Code Problem Lumbago with sciatica, left side M54.42 Active 353897804 Problem Chronic pain syndrome G89.4 Active 258975440 Problem Infection of right eye H44.001 Active 55780238377194025 Problem Slow transit constipation K59.01 Active 76294337 Problem Primary insomnia F51.01 Active 064423660 Problem Mood disorder F39 Active 26224677 Problem Esophagitis, reflux K21.0 Active 683950932 Problem Atrial fibrillation, unspecified type I48.91 Active 15718208 Problem Unsteady gait R26.81 Active 16764682 Problem Fibromyalgia M79.7 Active 448470591 Problem Methamphetamine abuse F15.10 Active 652410152 Problem Chronic fatigue R53.82 Active 38602942 Problem Major depressive disorder, recurrent episode, severe F33.2 Active 745280783052 Problem Polysubstance (excluding opioids) dependence F19.20 Active 08462681 Problem Seizure disorder G40.909 Active 905310366 Problem COPD (chronic obstructive pulmonary disease) with acute bronchitis J44.0 Active 424933590830783 Problem Lumbago with sciatica, right side M54.41 Active 569593459 Problem Anxiety F41.9 Active 18944900 Problem Congestive heart failure, unspecified congestive heart failure chronicity, unspecified congestive heart failure type I50.9 Active 71229969 Problem Other chronic pain G89.29 Active 97771864 Problem Edema, due to unspecified malnutrition type, unspecified type R60.9 Active 596070802 Problem Unspecified mood [affective] disorder F39 Active 634611836 Problem Seasonal allergic rhinitis, unspecified allergic rhinitis trigger J30.2 Active 524654131 ALLERGIES No Information ENCOUNTERS Encounter Location Date Diagnosis [place] [id number] [place] [address] 16231- 7399 Jul, [facility] [id number] [place] [address] 01752- 0156 29 Jul, 2018 Hip pain, right M25.551 [place] [id number] [place] [address] 89637- 1565 16 Jul, 2018 Atrial fibrillation, unspecified type I48.91 [place] [address] 60800- 1457 04 Jul, 2018 Mood disorder F39 ; Slow transit constipation K59.01 and Acute non-recurrent maxillary sinusitis J01.00 [place] [id number] [place] [address] 57083- 0674 Jun, Atrial fibrillation, unspecified type I48.91 ; Lumbago with sciatica, right side M54.41 ; Unspecified mood [affective] disorder F39 and Anxiety F41.9 [place] [id number] [place] [address] 05464- 7550 Jun, Lumbago with sciatica, right side M54.41 [place] [id number] [place] [address] 71692- 6118 May, Anxiety F41.9 [place] [id number] [place] [address] 80453- 3224 May, [facility] [id number] [place] [address] 46825 -8749 May, Methamphetamine abuse F15.10 [place] [id number] [place] [address] 33989- 7274 May, [place] [id number] [place] [address] 46630- 6895 Apr, [facility] [id number] [place] [address] 69024- 2559 Apr, Lumbago with sciatica, right side M54.41 ; Chronic pain syndrome G89.4 and Primary insomnia F51.01 [facility] [id number] [place] [address] 02615 -6815 Apr, Acute right ankle pain M25.571 [facility] [id number] [place] [address] 52300 -2261 Apr, [facility] [address] 61908 -2337 Apr, Seasonal allergic rhinitis, unspecified trigger J30.2 and Acute right ankle pain M25.571 [place] [address] 00353- 9712 28 Mar, 2018 Primary insomnia F51.01 and Anxiety F41.9 [facility] [id number] [place] [address] 68338- 6146 Mar, [facility] [id number] [place] [address] 15220- 7695 14 Mar, 2018 [facility] [id number] [place] [address] 88917- 9434 13 Mar, 2018 Lumbago with sciatica, left side M54.42 [facility] [id number] [place] [address] 43726- 8607 Mar, [facility] [id number] [place] [address] 56490- 1108 Mar, Anxiety F41.9 [facility] [id number] [place] [address] 81828- 6466 February, [facility] [id number] [place] [address] 01526- 9873 February, Unspecified mood [affective] disorder F39 [facility] [id number] [place] [address] 38561- 3761 February, [facility] [id number] [place] [address] 12855- 0726 February, [facility] [id number] [place] [address] 78829 -2934 February, Hordeolum externum of right upper eyelid H00.011 and Paronychia of finger of right hand L03.011 [place] [id number] [place] [address] 48487- 1360 February, [place] [address] 82979- 6768 February, Primary insomnia F51.01 ; Atrial fibrillation, unspecified type I48.91 ; Unsteady gait R26.81 ; General weakness R53.1 ; Chronic fatigue R53.82 ; Hypokalemia E87.6 and Other chronic pain G89.29 [place] [address] 59768- 2729 February, [place] [address] 93991- 3641 Jan, Lumbago with sciatica, right side M54.41 [place] [address] 26682- 0147 Jan, Anxiety F41.9 ; Chronic pain syndrome G89.4 ; Folliculitis L73.9 and Fibromyalgia M79.7 [place] [id number] [place] [address] 16462- 6151 Jan, Lumbago with sciatica, right side M54.41 [place] [id number] [place] [address] 07977- 0027 Dec, [place] [address] 11973- 9255 Nov, Lumbago with sciatica, right side M54.41 [place] [id number] [place] [address] 93896- 8905 Nov, [place] [address] 24329- 1167 Nov, Unspecified mood [affective] disorder F39 ; Hypokalemia E87.6 and Anemia, unspecified type D64.9 [place] [id number] [place] [address] 34125- 8549 08 Nov, 2017 [place] [id number] [place] [address] 91447- 8497 Oct, Lumbago with sciatica, right side M54.41 [facility] [id number] [place] [address] 37791 -0510 Aug, Congestive heart failure, unspecified congestive heart failure chronicity, unspecified congestive heart failure type I50.9 and Peripheral edema R60.9 [place] [id number] [place] [address] 39104- 6354 17 Aug, 2017 Polysubstance (excluding opioids) dependence F19.20 and Lumbago with sciatica, left side M54.42 [place] [id number] [place] [address] 27866- 4815 Aug, [facility] [place] [id number] [place] [address] 91724 -2140 Aug, Infection of right eye H44.001 [place] [id number] [place] [address] 41735- 5959 14 Aug, 2017 Congestive heart failure, unspecified congestive heart failure chronicity, unspecified congestive heart failure type I50.9 and Other chronic pain G89.29 [place] [id number] [place] [address] 03864- 3272 Aug, Lumbago with sciatica, right side M54.41 [place] [address] 57900- 5023 Aug, Lumbago with sciatica, right side M54.41 [place] [id number] [place] [address] 12370- 3093 Aug, [place] [address] [address]- 9778 Jul, [facility] [id number] [place] [address] 53276- 1587 Jul, COPD (chronic obstructive pulmonary disease) with acute bronchitis J44.0 ; Atrial fibrillation, unspecified type I48.91 ; Polysubstance (excluding opioids) dependence F19.20 ; Congestive heart failure, unspecified congestive heart failure chronicity, unspecified congestive heart failure type I50.9 and Lumbago with sciatica, right side M54.41 [facility] [id number] [place] [address] [id number] Jul, [place] [id number] [place] [address] 67085- 5611 Jul, Seizure disorder G40.909 [facility] [id number] [place] [address] 72478- 6789 Jul, Lumbago with sciatica, right side M54.41 [facility] [id number] [place] [address] 79264- 8271 Jul, [facility] [id number] [place] [address] 77083- 2827 Jun, Congestive heart failure, unspecified congestive heart failure chronicity, unspecified congestive heart failure type I50.9 ; Lumbago with sciatica, right side M54.41 and Other chronic pain G89.29 [facility] [id number] [place] [address] 84626- 2857 Jun, [facility] [id number] [place] [address] 41125- 1913 Jun, [facility] [id number] [place] [address] 46650- 4998 May, Lumbago with sciatica, left side M54.42 [facility] [id number] [place] [address] 41720- 0806 May, [facility] [place] [id number] [place] [address] 14479 -1718 May, Unspecified fall, initial encounter W19.XXXA [place] [address] 24282- 0452 May, Lumbago with sciatica, right side M54.41 [place] [address] 20147- 6988 May, [place] [address] 60007- 4723 May, Bloating R14.0 and Right hip pain M25.551 [place] [address] 42009- 2627 Apr, [place] [address] 77763- 0680 Apr, Lumbago with sciatica, left side M54.42 [place] [address] 23749- 5272 Mar, [facility] [place] [address] 17063 -1689 Mar, Lumbago with sciatica, right side M54.41 [facility] [address] 07676 -1217 Mar, Abdominal distension R14.0 [place] [address] 74732- 9527 Mar, Periumbilical abdominal pain R10.33 and Diarrhea, unspecified type R19.7 [facility] [address] 17276 -3395 February, Seasonal allergic rhinitis, unspecified allergic rhinitis trigger J30.2 ; Acute middle ear effusion, bilateral H65.193 and Lumbago with sciatica, right side M54.41 [place] [address] [place] [address]- 2722 February, Routine gynecological examination Z01.419 [place] [address] 43202- 4058 Jan, [place] [address] 97390- 1204 Jan, Atrial fibrillation, unspecified type I48.91 [facility] [address] 52885 -4045 Jan, Lumbago with sciatica, right side M54.41 and Wound, open, toe, initial encounter S91.109A [facility] [address] [id number] Jan, [facility] [address] 15977 -7768 Jan, Acute bilateral low back pain without sciatica M54.5 [place] [address] 94801- 4202 Dec, Congestive heart failure, unspecified congestive heart failure chronicity, unspecified congestive heart failure type I50.9 [place] [address] 94383- 5684 Dec, [place] [address] 11434- 3758 Dec, Thrush, oral B37.0 and Lumbago with sciatica, right side M54.41 [place] [id number] [place] [address] 97800- 9368 Dec, [place] [address] 60372- 6742 Nov, [place] [address] 72021- 9829 Nov, [place] [address] 96120- 1355 Oct, Polysubstance (excluding opioids) dependence F19.20 ; Other chronic pain G89.29 and Lumbago with sciatica, right side M54.41 [facility] [id number] [place] [address] 65522- 6712 Oct, [facility] [id number] [place] [address] 49625- 2119 Aug, Lumbago with sciatica, right side M54.41 ; Other chronic pain G89.29 and Anxiety F41.9 [facility] [id number] [place] [address] 77583- 6749 Aug, [facility] [id number] [place] [address] 70492- 6440 Aug, [facility] [id number] [place] [address] 23848- 1772 Aug, [facility] [id number] [place] [address] 59267- 7084 Aug, [facility] [id number] [place] [address] 93882- 3891 Aug, [facility] [id number] [place] [address] 50653- 2076 Aug, [facility] [id number] [place] [address] 51955- 2294 Jul, Unspecified mood [affective] disorder F39 and Seizure disorder G40.909 [facility] [address] [address]- 8114 Jul, [facility] [id number] [place] [address] 93313- 3920 Jul, [facility] [id number] [place] [address] 84722- 2191 Jul, Unspecified mood [affective] disorder F39 and Seizure disorder G40.909 [facility] [id number] [place] [address] 05240- 9144 Jul, Polysubstance (excluding opioids) dependence F19.20 ; COPD ( chronic obstructive pulmonary disease) with acute bronchitis J44.0 ; Congestive heart failure, unspecified congestive heart failure chronicity, unspecified congestive heart failure type I50.9 ; Radiculopathy of lumbosacral region M54.17 and Radiculopathy, thoracic region M54.14 [facility] [id number] [place] [address] 74397- 5887 Jun, Lumbago M54.5 [facility] [id number] [place] [address] 24127- 8875 May, [place] [id number] [place] [address] 96929- 1515 May, [place] [id number] [place] [address] 46634- 3302 May, [facility] [id number] [place] [address] 49219- 3331 Apr, COPD (chronic obstructive pulmonary disease) with acute bronchitis J44.0 [facility] [id number] [place] [address] 33295- 8564 Apr, Major depressive disorder, recurrent episode, severe F33.2 and Polysubstance (excluding opioids) dependence F19.20 [place] [id number] [place] [address] 73736- 5274 Mar, Major depressive disorder, recurrent episode, severe F33.2 and Polysubstance (excluding opioids) dependence F19.20 [facility] [id number] [place] [address] 99091- 4298 Mar, Major depressive disorder, recurrent episode, severe F33.2 and Polysubstance (excluding opioids) dependence F19.20 [facility] [id number] [place] [address] 34747- 9781 Mar, Major depressive disorder, recurrent episode, severe F33.2 and Polysubstance (excluding opioids) dependence F19.20 [facility] [id number] [place] [address] 84210- 1315 February, Major depressive disorder, recurrent episode, severe F33.2 and Polysubstance (excluding opioids) dependence F19.20 [facility] [address] 67356- 4251 February, [place] [address] 03909- 7851 February, COPD (chronic obstructive pulmonary disease) with acute bronchitis J44.0 [facility] [address] 06565 -9640 February, Sore throat J02.9 and Bronchitis J40 [place] [address] 77738- 5637 Jan, COPD (chronic obstructive pulmonary disease) with acute bronchitis J44.0 [place] [address] 88675- 3216 Jan, COPD (chronic obstructive pulmonary disease) with acute bronchitis J44.0 [place] [address] 68761- 3150 Jan, [place] [address] 17275- 6870 Dec, Gastritis K29.70 ; Constipation K59.00 and Lumbago M54.5 [facility] [address] 87709- 8311 Dec, COPD (chronic obstructive pulmonary disease) with acute bronchitis J44.0 [place] [address] 28750- 2306 Nov, Major depressive disorder, recurrent episode, severe F33.2 and Polysubstance (excluding opioids) dependence F19.20 [facility] [address] 75280 -6198 Oct, Oral thrush B37.0 and Drug abuse F19.10 [facility] [id number] [place] [address] 14189- 8763 Oct, [facility] [id number] [place] [address] 33608- 6006 Sep, COPD (chronic obstructive pulmonary disease) with acute bronchitis J44.0 ; Esophagitis, reflux K21.0 ; Seizure disorder G40.909 ; Primary insomnia F51.01 ; Edema, due to unspecified malnutrition type, unspecified type R60.9 ; Arthritis M19.90 and Thrush B37.0 [place] [id number] [place] [address] 10743- 6492 Aug, [facility] [address] 93949- 7453 Aug, [place] [address] 68010- 8002 Aug, [facility] [id number] [place] [address] 83836- 2547 Jul, [facility] [id number] [place] [address] 28557- 3358 Jun, [facility] [id number] [place] [address] 63239- 6213 Jun, Counseling on substance use and abuse V65.42 and Obstructive chronic bronchitis, with (acute) exacerbation 491.21 [facility] [id number] [place] [address] 01293- 0935 May, [facility] [id number] [place] [address] 13711- 7408 Apr, [facility] [id number] [place] [address] 29464- 4371 Apr, Abdominal pain 789.00 and Back pain 724.5 [place] [address] 15108- 0229 Mar, Back pain 724.5 and Illicit drug use 305.90 [facility] [address] [address]- 5306 February, Onychomycosis 110.1 [facility] [id number] [place] [address] 760200- 7221 February, Breast cancer screening V76.10 [facility] [id number] [place] [address] 71761- 4032 February, [facility] [id number] [place] [address] 387002- 9910 February, [facility] [id number] [place] [address] 296792- 3642 February, Cough 786.2 ; Obstructive chronic bronchitis, with (acute) exacerbation 491.21 ; Vomiting 787.03 ; 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 and Gastritis 535.50 [facility] [id number] [place] [address] 13354- 7890 Jan, [facility] [id number] [place] [address] 87891- 6110 Jan, [facility] [id number] [place] [address] 29380- 1169 24 Dec, 2014 [facility] [address] [address]- 5496 Dec, [facility] [id number] [place] [address] 67938- 4510 Dec, [facility] [id number] [place] [address] 08968- 8328 Dec, [facility] [id number] [place] [address] 690972- 0568 Dec, [facility] [id number] [place] [address] 260045- 2100 Dec, [facility] [id number] [place] [address] [place] [address]- 6370 Dec, [facility] [place] [facility] [address] [id number] [place] [address]- 4854 Dec, [facility] [place] [facility] [address] [id number] [place] [address]- 2717 Dec, [facility] [place] [facility] [address] [id number] [place] [address]- 4957 Sep, [facility] [place] [facility] [address] [id number] [place] [address]- 8452 Sep, [facility] [place] [facility] [address] [id number] [place] [address]- 2048 Sep, [facility] [place] [facility] [address] [id number] [place] [address]- 5451 Sep, [facility] [place] [facility] [address] [id number] [place] [address]- 9473 Sep, [facility] [place] [facility] [address] [id number] [place] [address]- 4191 Sep, [facility] [place] [facility] [address] [id number] [place] [address]- 2794 Sep, [facility] [place] [facility] [address] [id number] [place] [address]- 6945 Sep, [facility] [place] [facility] [address] [id number] [place] [address]- 1842 Sep, [facility] [place] [facility] [address] [id number] [place] [address] Sep, [facility] [place] [facility] [address] [id number] [place] [address] Aug, [facility] [place] [facility] [address] [id number] [place] [address] Aug, [facility] [place] [facility] [address] [id number] [place] [address] Aug, [facility] [place] [facility] [address] [id number] [place] [address] Aug, [facility] [place] [facility] [address] [id number] [place] [address] Jul, [facility] [place] [facility] [address] [id number] [place] [address] Jul, [facility] [place] [facility] [address] [id number] [place] [address] Jun, [facility] [place] [facility] [address] [id number] [place] [address] Jun, [facility] [place] [facility] [address] [id number] [place] [address] May, [facility] [place] [facility] [address] [id number] [place] [address] May, [facility] [place] [facility] [address] [id number] [place] [address] May, [facility] [place] [facility] [address] [id number] [place] [address] May, [facility] [place] [facility] [address] [id number] [place] [address] May, [facility] [place] [facility] [address] [id number] [place] [address] May, [facility] [place] [facility] [address] [id number] [place] [address] Apr, [facility] [place] [facility] [address] [id number] [place] [address] Apr, [facility] [place] [facility] [address] [id number] [place] [address] Apr, [facility] [place] [facility] [address] [id number] [place] [address] Apr, [facility] [place] [facility] [address] [id number] [place] [address] February, [facility] [address] [id number] [place] [address] February, [facility] [place] [facility] [address] [id number] [place] [address] Oct, [facility] [place] [facility] [address] [facility] [id number] [place] [address] Oct, [facility] [place] [facility] [address] [id number] [place] [address] Oct, [facility] [place] [facility] [address] [id number] [place] [address] Oct, [facility] [place] [facility] [address] [id number] [place] [address] Sep, [facility] [place] [facility] [address] [id number] [place] [address] Sep, [facility] [place] [facility] [address] [id number], [place] [address] Sep, [facility] [place] [facility] [address] [id number], [place] [address] Sep, [facility] [place] [facility] [address] [id number], [place] [address] Aug, [facility] [place] [facility] [address] [id number], [place] [address] Aug, [facility] [place] [facility] [address] [id number], [place] [address] Aug, [facility] [place] [facility] [address] [id number], [place] [address] Aug, [facility] [place] [facility] [address] [id number], [place] [address] Jul, [facility] [place] [facility] [address] [id number], [place] [address] Jul, [facility] [place] [facility] [address] [id number] [place] [address] Jul, [facility] [place] [facility] [address] [id number] [place] [address] Jul, [facility] [place] [facility] [address] [id number] [place] [address] Jul, [facility] [place] [facility] [address] [id number] [place] [address] Jul, [facility] [place] [facility] [address] [id number] [place] [address] Jul, [facility] [place] [facility] [address] [id number] [place] [address] Jul, [facility] [place] [facility] [address] [id number] [place] [address] Jul, [facility] [place] [facility] [address] [id number] [place] [address] Jul, [facility] [place] [facility] [address] [id number] [place] [address] Jun, [facility] [place] [facility] [address] [id number] [place] [address] May, [facility] [place] [facility] [address] [id number] [place] [address] Apr, [facility] [place] [facility] [address] [id number] [place] [address] Apr, [facility] [place] [facility] [address] [id number] [place] [address] Apr, [facility] [place] [facility] [address] [id number] [place] [address] Mar, [facility] [place] [facility] [address] [id number] [place] [address] Mar, [facility] [place] [facility] [address] [id number] [place] [address] Mar, [facility] [address] [facility] [id number] [place] [id number] Mar, [facility] [address] [id number] [id number] Mar, [facility] [address] [facility] [id number], [place] [address] Sep, [facility] [address] [id number], [place] [address] February, [facility] [address] [facility] [id number], [place] [address] Jan, IMMUNIZATIONS No Known Immunizations SOCIAL HISTORY [...] bleeding 2015 Hospitalization History A fib with [facility] 02/06/17 Hospitalization History Altered mental status, lethargy-[facility] 07/10/17 Hospitalization History Chest pain-[facility] 08/05/17 Hospitalization History [facility] 10/2017 Hospitalization History Low potassium, A fib 01/2018 Hospitalization History Head injury 03/2018 Hospitalization History heart issues 06/2018 Hospitalization History Overdosed 06/2018
--- OUTSIDE RECORDS SUMMARY | 2018-11-13 16:22 | XMS REPORT ---
Author Author FRANCHESKA HEADLEY Organization [facility] Address [address] [place] [address] Care Team Providers Care Instrument And Control Service Person Name Role Phone FRANCHESKA HEADLEY Unavailable PROBLEMS Type Condition ICD9-CM Code OAE37-PG Code Onset Dates Condition Status SNOMED Code Problem Other chronic pain G89.29 Active 87700890 Problem Lumbago with sciatica, left side M54.42 Active 891319611 Problem Seasonal allergic rhinitis, unspecified allergic rhinitis trigger J30.2 Active 886562619 Problem Methamphetamine abuse F15.10 Active 370482691 Problem Primary insomnia F51.01 Active 587959802 Problem Unsteady gait R26.81 Active 09140161 Problem Seizure disorder G40.909 Active 534797881 Problem Fibromyalgia M79.7 Active 878866808 Problem Infection of right eye H44.001 Active [id number] Problem Chronic fatigue R53.82 Active 22688145 Problem Chronic pain syndrome G89.4 Active 860749765 Problem Esophagitis, reflux K21.0 Active 557964422 Problem COPD (chronic obstructive pulmonary disease) with acute bronchitis J44.0 Active 439705367395265 Problem Edema, due to unspecified malnutrition type, unspecified type R60.9 Active 365379674 Problem Atrial fibrillation, unspecified type I48.91 Active 87498024 Problem Congestive heart failure, unspecified congestive heart failure chronicity, unspecified congestive heart failure type I50.9 Active 65663718 Problem Unspecified mood [affective] disorder F39 Active 967716391 Problem Major depressive disorder, recurrent episode, severe F33.2 Active 369325173127 Problem Lumbago with sciatica, right side M54.41 Active 975943588 Problem Polysubstance (excluding opioids) dependence F19.20 Active 70813600 Problem Anxiety F41.9 Active 52062367 ALLERGIES No Information ENCOUNTERS Encounter Location Date Diagnosis [facility] [address] [facility] [id number] [address] Jul, [facility] [address] [place] [id number] [place] [address] 30601- 8660 Jun, Atrial fibrillation, unspecified type I48.91 ; Lumbago with sciatica, right side M54.41 ; Unspecified mood [affective] disorder F39 and Anxiety F41.9 [facility] [address] [id number] [place] [address] 84443- 0168 Jun, Lumbago with sciatica, right side M54.41 [place] [id number] [place] [address] 05799- 2443 May, Anxiety F41.9 [place] [address] 90435- 5993 May, [facility] [place] [address] 26222 -7817 May, Methamphetamine abuse F15.10 [place] [address] 32487- 5421 May, [place] [address] [place] [id number] [place] [address] 48902- 3559 Apr, [facility] [id number] [place] [address] 91528- 4653 Apr, Lumbago with sciatica, right side M54.41 ; Chronic pain syndrome G89.4 and Primary insomnia F51.01 [facility] [id number] [place] [address] 31551 -7559 Apr, Acute right ankle pain M25.571 [facility] [address] [id number] [place] [address] 45757 -1402 Apr, [facility] [id number] [place] [address] 02377 -8848 Apr, Seasonal allergic rhinitis, unspecified trigger J30.2 and Acute right ankle pain M25.571 [place] [address] [place] [address]- 7300 Mar, Primary insomnia F51.01 and Anxiety F41.9 [facility] [address] 92873- 1169 Mar, [facility] [id number] [place] [address] 30074- 5229 Mar, [facility] [address] 68106- 5024 Mar, Lumbago with sciatica, left side M54.42 [facility] [id number] [place] [address] 48465- 1755 Mar, [facility] [address] 99159- 7958 05 Mar, 2018 Anxiety F41.9 [facility] [address] 34216- 1075 February, [facility] [id number] [place] [address] 25608- 5002 February, Unspecified mood [affective] disorder F39 [facility] [id number] [place] [address] 49565- 5009 February, [facility] [id number] [place] [address] 27223- 1944 February, [facility] [id number] [place] [address] 03792 -2192 February, Hordeolum externum of right upper eyelid H00.011 and Paronychia of finger of right hand L03.011 [facility] [id number] [place] [address] 76382- 7551 February, [facility] [id number] [place] [address] 17439- 8860 February, Primary insomnia F51.01 ; Atrial fibrillation, unspecified type I48.91 ; Unsteady gait R26.81 ; General weakness R53.1 ; Chronic fatigue R53.82 ; Hypokalemia E87.6 and Other chronic pain G89.29 [place] [address] 17791- 1475 February, [place] [address] [place] [id number] [place] [address] 98547- 1530 Jan, Lumbago with sciatica, right side M54.41 [place] [address] 97600- 3937 Jan, Anxiety F41.9 ; Chronic pain syndrome G89.4 ; Folliculitis L73.9 and Fibromyalgia M79.7 [place] [address] 91291- 6969 Jan, Lumbago with sciatica, right side M54.41 [place] [address] 38697- 1879 Dec, [place] [address] [place] [id number] [place] [address] 50099- 5827 Nov, Lumbago with sciatica, right side M54.41 [place] [address] 33891- 0582 Nov, [place] [address] 43847- 5727 Nov, Unspecified mood [affective] disorder F39 ; Hypokalemia E87.6 and Anemia, unspecified type D64.9 [place] [address] [place] [id number] [place] [address] 71897- 8341 Nov, [place] [address] 92513- 7189 Oct, Lumbago with sciatica, right side M54.41 [facility] [id number] [place] [address] 26068 -3819 Aug, Congestive heart failure, unspecified congestive heart failure chronicity, unspecified congestive heart failure type I50.9 and Peripheral edema R60.9 [facility] [id number] [place] [address] 80256- 0377 Aug, Polysubstance (excluding opioids) dependence F19.20 and Lumbago with sciatica, left side M54.42 [place] [address] [id number] [place] [address] 16456- 8923 Aug, [facility] [address] 59458 -4175 Aug, Infection of right eye H44.001 [place] [address] 23428- 0491 Aug, Congestive heart failure, unspecified congestive heart failure chronicity, unspecified congestive heart failure type I50.9 and Other chronic pain G89.29 [place] [address] 67256- 1235 Aug, Lumbago with sciatica, right side M54.41 [place] [address] 81184- 5649 Aug, Lumbago with sciatica, right side M54.41 [place] [address] [place] [id number] [place] [address] 88730- 8838 Aug, [place] [address] [place] [id number] [place] [address] 17945- 6930 Jul, [place] [address] [place] [id number] [place] [address] 66867- 6466 Jul, COPD (chronic obstructive pulmonary disease) with acute bronchitis J44.0 ; Atrial fibrillation, unspecified type I48.91 ; Polysubstance (excluding opioids) dependence F19.20 ; Congestive heart failure, unspecified congestive heart failure chronicity, unspecified congestive heart failure type I50.9 and Lumbago with sciatica, right side M54.41 [facility] [address] [id number] Jul, [facility] [address] [place] [address] 13336- 7227 Jul, Seizure disorder G40.909 [facility] [address] [id number] [place] [address] 55813- 2568 Jul, Lumbago with sciatica, right side M54.41 [place] [address] [place] [id number] [place] [address] 73754- 1918 Jul, [facility] [id number] [place] [address] 67190- 1226 Jun, Congestive heart failure, unspecified congestive heart failure chronicity, unspecified congestive heart failure type I50.9 ; Lumbago with sciatica, right side M54.41 and Other chronic pain G89.29 [place] [address] [address] [id number] [place] [address] 92896- 7669 Jun, [place] [address] [place] [id number] [place] [address] 93968- 7508 Jun, [facility] [id number] [place] [address] 52357- 2178 May, Lumbago with sciatica, left side M54.42 [facility] [id number] [place] [address] 19743- 7013 May, [facility] [address] [place] [address] 52925 -2771 May, Unspecified fall, initial encounter W19.XXXA [facility] [id number] [place] [address] 57779- 7646 May, Lumbago with sciatica, right side M54.41 [facility] [id number] [place] [address] 35908- 6744 May, [facility] [id number] [place] [address] 22515- 3847 May, Bloating R14.0 and Right hip pain M25.551 [place] [address] [place] [id number] [place] [address] 79745- 1832 Apr, [place] [address] 86137- 9247 Apr, Lumbago with sciatica, left side M54.42 [place] [address] 82944- 0398 Mar, [facility] [place] [address] 68634 -0695 Mar, Lumbago with sciatica, right side M54.41 [facility] [address] 92528 -9798 Mar, Abdominal distension R14.[address] 75791- 6405 Mar, Periumbilical abdominal pain R10.33 and Diarrhea, unspecified type R19.7 [facility] [address] 40687 -2349 February, Seasonal allergic rhinitis, unspecified allergic rhinitis trigger J30.2 ; Acute middle ear effusion, bilateral H65.193 and Lumbago with sciatica, right side M54.41 [place] [address] [place] [id number] [place] [address] 15542- 5332 February, Routine gynecological examination Z01.419 [place] [address] [place] [id number] [place] [address] 54348- 5699 Jan, [address] 07456- 2871 Jan, Atrial fibrillation, unspecified type I48.91 [facility] [place] [id number] [place] [address] 68941 -6299 Jan, Lumbago with sciatica, right side M54.41 and Wound, open, toe, initial encounter S91.109A [facility] [address] [id number] [place] [address] [id number] Jan, [facility] [id number] [place] [address] 02348 -7072 Jan, Acute bilateral low back pain without sciatica M54.5 [facility] [address] [address] [id number] [place] [address] 30414- 2541 Dec, Congestive heart failure, unspecified congestive heart failure chronicity, unspecified congestive heart failure type I50.9 [facility] [address] [id number] [place] [address] 42236- 1109 Dec, [place] [address] 85741- 0688 Dec, Thrush, oral B37.0 and Lumbago with sciatica, right side M54.41 [facility] [id number] [place] [address] 44723- 4849 Dec, [facility] [id number] [place] [address] 82629- 7033 Nov, [place] [address] [place] [id number] [place] [address] 54882- 8591 Nov, [facility] [address] [place] [address] 57373- 4058 Oct, Polysubstance (excluding opioids) dependence F19.20 ; Other chronic pain G89.29 and Lumbago with sciatica, right side M54.41 [facility] [id number] [place] [address] 49774- 9263 Oct, [facility] [address] [place] [address] 19143- 9794 Aug, Lumbago with sciatica, right side M54.41 ; Other chronic pain G89.29 and Anxiety F41.9 [facility] [address] [place] [id number] [place] [address] 50521- 5446 Aug, [facility] [address] [address]- 8927 Aug, [facility] [id number] [place] [address] 19510- 0440 Aug, [facility] [id number] [place] [address] 62961- 7650 Aug, [facility] [id number] [place] [address] 74506- 1385 Aug, [facility] [id number] [place] [address] 86273- 2223 Aug, [facility] [address] [place] [address] 28813- 4844 Jul, Unspecified mood [affective] disorder F39 and Seizure disorder G40.909 [facility] [address] [place] [address] 10636- 3587 Jul, [facility] [id number] [place] [address] 39894- 9891 Jul, [facility] [address] [place] [address] 59970- 7350 Jul, Unspecified mood [affective] disorder F39 and Seizure disorder G40.909 [facility] [address] [place] [address] 21829- 9285 Jul, Polysubstance (excluding opioids) dependence F19.20 ; COPD ( chronic obstructive pulmonary disease) with acute bronchitis J44.0 ; Congestive heart failure, unspecified congestive heart failure chronicity, unspecified congestive heart failure type I50.9 ; Radiculopathy of lumbosacral region M54.17 and Radiculopathy, thoracic region M54.14 [facility] [address] [address]- 0618 Jun, Lumbago M54.5 [facility] [id number] [place] [address] 96255- 1112 May, [facility] [address] [address]- 9783 May, [facility] [id number] [place] [address] 26268- 8763 May, [facility] [id number] [place] [address] 57580- 1019 Apr, COPD (chronic obstructive pulmonary disease) with acute bronchitis J44.0 [facility] [address] [place] [address] 92615- 5166 Apr, Major depressive disorder, recurrent episode, severe F33.2 and Polysubstance (excluding opioids) dependence F19.20 [facility] [address] [place] [address] 97415- 8901 Mar, Major depressive disorder, recurrent episode, severe F33.2 and Polysubstance (excluding opioids) dependence F19.20 [facility] [address] [place] [address] 06639- 2329 Mar, Major depressive disorder, recurrent episode, severe F33.2 and Polysubstance (excluding opioids) dependence F19.20 [facility] [address] [place] [address] 94359- 7883 Mar, Major depressive disorder, recurrent episode, severe F33.2 and Polysubstance (excluding opioids) dependence F19.20 [facility] [address] [place] [address] 04065- 1737 February, Major depressive disorder, recurrent episode, severe F33.2 and Polysubstance (excluding opioids) dependence F19.20 [facility] [id number] [place] [address] 69187- 4706 February, [facility] [id number] [place] [address] 54070- 5159 February, COPD (chronic obstructive pulmonary disease) with acute bronchitis J44.0 [facility] [address] 22293 -9345 February, Sore throat J02.9 and Bronchitis J40 [place] [address] 34346- 0634 Jan, COPD (chronic obstructive pulmonary disease) with acute bronchitis J44.0 [place] [address] 34102- 1363 Jan, COPD (chronic obstructive pulmonary disease) with acute bronchitis J44.0 [place] [address] 98595- 8435 Jan, [address] 17179- 8240 Dec, Gastritis K29.70 ; Constipation K59.00 and Lumbago M54.[address] 83478- 2424 Dec, COPD (chronic obstructive pulmonary disease) with acute bronchitis J44.0 [place] [address] 46465- 4656 Nov, Major depressive disorder, recurrent episode, severe F33.2 and Polysubstance (excluding opioids) dependence F19.20 [facility] [address] [place] [id number] [place] [address] 36204 -0497 Oct, Oral thrush B37.0 and Drug abuse F19.10 [facility] [address] 37645- 9632 Oct, [facility] [address] [place] [address] 45715- 1888 Sep, COPD (chronic obstructive pulmonary disease) with acute bronchitis J44.0 ; Esophagitis, reflux K21.0 ; Seizure disorder G40.909 ; Primary insomnia F51.01 ; Edema, due to unspecified malnutrition type, unspecified type R60.9 ; Arthritis M19.90 and Thrush B37.0 [facility] [address] [place] [address]- 7055 Aug, [facility] [address] [address]- 8830 Aug, [facility] [address] [address]- 4029 Aug, [facility] [address] [place] [address] 86451- 6992 Jul, [facility] [address] [place] [address] 98956- 1425 Jun, [facility] [address] [place] [address] 752320- 2602 Jun, Counseling on substance use and abuse V65.42 and Obstructive chronic bronchitis, with (acute) exacerbation 491.21 [facility] [address] [place] [address] 04532- 1286 May, [facility] [id number] [place] [address] 49628- 1024 Apr, [facility] [address] [place] [address] 04461- 0727 Apr, Abdominal pain 789.00 and Back pain 724.5 [facility] [address] [address]- 2820 Mar, Back pain 724.5 and Illicit drug use 305.90 [facility] [address] [address]- 5890 February, Onychomycosis 110.1 [facility] [address] [place] [address] 06667- 8133 February, Breast cancer screening V76.10 [facility] [address] [address]- 6699 February, [facility] [address] [address]- 1261 February, [facility] [address] [address]- 2888 February, Cough 786.2 ; Obstructive chronic bronchitis, with (acute) exacerbation 491.21 ; Vomiting 787.03 ; 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 and Gastritis 535.50 [facility] [address] [address]- 0018 Jan, [facility] [id number] [place] [address] 28645- 9679 Jan, [facility] [address] [address]- 4079 Dec, [facility] [id number] [place] [address] 27875- 3430 Dec, [facility] [address] [address]- 4991 Dec, [facility] [address] [address]- 1012 Dec, [facility] [address] [address]- 9372 Dec, [facility] [address] [address]- 2547 Dec, [facility] [address] [address]- 6864 Dec, [facility] [address] [address]- 6061 Dec, [facility] [id number] [address]- 4480 Dec, [facility] [address] [address]- 4266 Sep, [facility] [id number] [address]- 3284 Sep, [facility] [id number] [place] [address] [place] 8803 Sep, [facility] [place] [facility] [address] [id number] [place] 6145 Sep, [facility] [place] [facility] [address] [id number] [place] 4395 Sep, [facility] [place] [facility] [address] [id number] [place] 5373 Sep, [facility] [place] [facility] [address] [id number] [place] 2728 Sep, [facility] [place] [facility] [address] [id number] [place] 2628 Sep, [facility] [place] [facility] [address] [id number] [place] [address]- 5532 Sep, [facility] [place] [facility] [address] [id number] [place] [address]- 8903 Sep, [facility] [place] [facility] [address] [id number] [place] [address]- 3425 Aug, [facility] [place] [facility] [address] [id number] [place] [address]- 6725 Aug, [facility] [place] [facility] [address] [id number] [place] [address]- 9095 Aug, [facility] [place] [facility] [address] [id number] [place] [address]- 7248 Aug, [facility] [place] [facility] [address] [id number] [address]- 8474 Jul, [facility] [place] [facility] [address] [id number] [place] [address]- 2928 Jul, [facility] [place] [facility] [address] [id number] [place] [address] Jun, [facility] [place] [facility] [address] [id number] [place] [address] Jun, [facility] [place] [facility] [address] [id number] [place] [address] May, [facility] [place] [facility] [address] [id number] [place] [address] May, [facility] [place] [facility] [address] [id number] [place] [address] May, [facility] [place] [facility] [address] [id number] [place] [address] May, [facility] [place] [facility] [address] [id number] [place] [address] May, [facility] [place] [facility] [address] [id number] [place] [address] May, [facility] [place] [facility] [address] [id number] [place] [address] Apr, [facility] [place] [facility] [address] [id number] [place] [address] Apr, [facility] [place] [facility] [address] [id number] [place] [address] Apr, [facility] [place] [facility] [address] [id number] [place] [address] Apr, [facility] [place] [facility] [address] [id number] [place] [address] February, [facility] [place] [facility] [address] [id number] [place] [address] February, [facility] [place] [facility] [address] [id number] [place] [address] Oct, [facility] [place] [facility] [address] [id number] [place] [address] Oct, [facility] [place] [facility] [address] [id number] [place] [address] Oct, [facility] [place] [facility] [address] [id number] [place] [address] Oct, [facility] [address] [id number] [place] [address] Sep, [facility] [place] [facility] [address] [id number] [address] Sep, [facility] [place] [facility] [address] [facility] [id number] [place] [address] Sep, [facility] [place] [facility] [address] [id number] [address] Sep, [facility] [place] [facility] [address] [id number] [place] [address] Aug, [facility] [place] [facility] [address] [id number][place] [address] Aug, [facility] [place] [facility] [address] [id number][place] [address] Aug, [facility] [place] [facility] [address] [id number], [place] [address] Aug, [facility] [place] [facility] [address] [id number][place] [address] Jul, [facility] [place] [facility] [address] [id number][place] [address] Jul, [facility] [place] [facility] [address] [id number][place] [address] Jul, [facility] [place] [facility] [address] [id number], [place] [address] Jul, [facility] [place] [facility] [address] [id number][place] [address] Jul, [facility] [place] [facility] [address] [id number][place] [address] Jul, [facility] [place] [facility] [address] [id number][place] [address] Jul, [facility] [place] [facility] [address] [facility] [id number] [place] [address] Jul, [facility] [address] [id number] [place] [address] Jul, [facility] [address] [facility] [id number] [place] [address] Jul, [facility] [address] [facility] [id number] [place] [address] Jun, [facility] [address] [facility] [id number] [place] [address] May, [facility] [address] [facility] [id number] [place] [address] Apr, [facility] [address] [facility] [id number] [place] [address] Apr, [facility] [address] [id number] [place] [address] Apr, [facility] [address] [facility] [id number] [place] [address] Mar, [facility] [address] [facility] [id number] [place] [address] Mar, [facility] [address] [facility] [id number] [place] [address] Mar, [facility] [address] [facility] [id number][place] [address] Mar, [facility] [address] [facility] [id number], [place] [address] Mar, [facility] [address] [facility] [id number][place] [address] Sep, [facility] [address] [facility] [id number][place] [address] February, [facility] [address] [facility] [id number][place] [address] Jan, IMMUNIZATIONS Vaccine Route Administration Date Status TORADOL (IM) 60 MG/2ML (UP TO 15 MG) IM Intramuscular Jul 08, 2018 Administered SOCIAL HISTORY Never Assessed REASON FOR VISIT Injection toradol per Ssacha Valle PLAN OF CARE VITAL SIGNS MEDICATIONS Unknown Medications RESULTS No Results PROCEDURES Procedure Date Ordered Result Body Site TORADOL (IM) 60 MG/2ML (UP TO 15 MG) Jul 08, 2018 THER/PROPH/DIAG INJ, SC/IM Jul 08, 2018 INSTRUCTIONS MEDICATIONS ADMINISTERED No Known [...] bleeding 2016 Hospitalization History A fib with [facility] 02/06/17 Hospitalization History Altered mental status, lethargy-[facility] 07/10/17 Hospitalization History Chest pain-[facility] 08/05/17 Hospitalization History [facility] 10/2017 Hospitalization History Low potassium, A fib 01/2018 Hospitalization History Head injury 03/2018 Hospitalization History heart issues 06/2018
--- OUTSIDE RECORDS SUMMARY | 2018-11-13 16:22 | XMS REPORT ---
Author Author FRANCHESKA HEADLEY [facility] Address [address] [place] [address] Care Team Providers Care Market Gardener Name Role Phone FRANCHESKA HEADLEY Unavailable PROBLEMS ALLERGIES ENCOUNTERS IMMUNIZATIONS SOCIAL HISTORY No smoking Hx information available REASON FOR VISIT PLAN OF CARE VITAL SIGNS MEDICATIONS RESULTS No Results PROCEDURES INSTRUCTIONS MEDICATIONS ADMINISTERED No Known Medications MEDICAL (GENERAL) HISTORY
--- OUTSIDE RECORDS SUMMARY | 2018-11-13 16:23 | XMS REPORT ---
Author Author FRANCHESKA HEADLEY Organization [facility] Address [address] [place] [address] Care Team Providers Care Film Sound Coordinator Name Role Phone FRANCHESKA HEADLEY Unavailable PROBLEMS Type Condition ICD9-CM Code IZH19-XN Code Onset Dates Condition Status SNOMED Code Problem Other chronic pain G89.29 Active 01627660 Problem Lumbago with sciatica, left side M54.42 Active 248979603 Problem Seasonal allergic rhinitis, unspecified allergic rhinitis trigger J30.2 Active 536679883 Problem Methamphetamine abuse F15.10 Active 405296154 Problem Primary insomnia F51.01 Active 083564576 Problem Unsteady gait R26.81 Active 01138643 Problem Seizure disorder G40.909 Active 243684814 Problem Fibromyalgia M79.7 Active 621356413 Problem Infection of right eye H44.001 Active 50441005769127278 Problem Chronic fatigue R53.82 Active 54906819 Problem Chronic pain syndrome G89.4 Active 506149684 Problem Esophagitis, reflux K21.0 Active 904813767 Problem COPD (chronic obstructive pulmonary disease) with acute bronchitis J44.0 Active 922944533033535 Problem Edema, due to unspecified malnutrition type, unspecified type R60.9 Active 155484216 Problem Atrial fibrillation, unspecified type I48.91 Active 42754300 Problem Congestive heart failure, unspecified congestive heart failure chronicity, unspecified congestive heart failure type I50.9 Active 10555739 Problem Unspecified mood [affective] disorder F39 Active 279631301 Problem Major depressive disorder, recurrent episode, severe F33.2 Active 224812037288 Problem Lumbago with sciatica, right side M54.41 Active 654821830 Problem Polysubstance (excluding opioids) dependence F19.20 Active 15604824 Problem Anxiety F41.9 Active 68910737 ALLERGIES No Information ENCOUNTERS Encounter Location Date Diagnosis [facility] [address] [facility] [id number] [address] Jun, Atrial fibrillation, unspecified type I48.91 ; Lumbago with sciatica, right side M54.41 ; Unspecified mood [affective] disorder F39 and Anxiety F41.9 [facility] [address] [address] Jun, Lumbago with sciatica, right side M54.41 [place] [address] [address] May, Anxiety F41.9 [place] [address] [address]- 0877 May, [facility] WALK IN [place] [address] 27[address]45 May, Methamphetamine abuse F15.10 [place] [address] 60747- [address]578 May, [place] [address] 33342- 7915 Apr, [place] [address] [address]40- 4750 Apr, Lumbago with sciatica, right side M54.41 ; Chronic pain syndrome G89.4 and Primary insomnia F51.01 [facility] WALK IN [place] [address] [address] Apr, Acute right ankle pain M25.571 [facility] [address] [address] Apr, [facility] WALK IN [place] [address] 37899 [address]35 Apr, Seasonal allergic rhinitis, unspecified trigger J30.2 and Acute right ankle pain M25.571 [place] [address] 51636- 7907 Mar, Primary insomnia F51.01 and Anxiety F41.9 [facility] [address] [address] 18 Mar, 2018 [facility] [address] [place] [id number] [place] [address] 30099- 6408 Mar, [facility] [address] [place] [id number] [place] [address] 14476- 2099 13 Mar, 2018 Lumbago with sciatica, left side M54.42 [facility] [address] [place] [id number] [place] [address] 90328- 4578 Mar, [facility] [address] [place] [id number] [place] [address] 77760- 9218 Mar, Anxiety F41.9 [facility] [address] [place] [id number] [place] [address] 34413- 1902 February, [facility] [address] [place] [id number] [place] [address] 28976- 4126 February, Unspecified mood [affective] disorder F39 [facility] [address] [place] [id number] [place] [address] 64305- 4428 February, [facility] [address] [place] [id number] [place] [address] 13401- 5504 February, [facility] WALK IN [facility] [address] [place] [address] 00036 -2025 February, Hordeolum externum of right upper eyelid H00.011 and Paronychia of finger of right hand L03.011 [facility] [address] [address] February, [facility] [address] [place] [id number] [place] [address] 18513- 1939 February, Primary insomnia F51.01 ; Atrial fibrillation, unspecified type I48.91 ; Unsteady gait R26.81 ; General weakness R53.1 ; Chronic fatigue R53.82 ; Hypokalemia E87.6 and Other chronic pain G89.29 [place] [address] [id number] [address] February, [facility] [address] [place] [id number] [place] [address] 97384- 7135 Jan, Lumbago with sciatica, right side M54.41 [facility] [address] [place] [id number] [place] [address] 13733- 9567 Jan, Anxiety F41.9 ; Chronic pain syndrome G89.4 ; Folliculitis L73.9 and Fibromyalgia M79.7 [facility] [address] [place] [id number] [place] [address] 23161- 3439 Jan, Lumbago with sciatica, right side M54.41 [place] [address] [place] [id number] [place] [address] 43824- 3426 Dec, [facility] [address] [place] [id number] [place] [address] 74066- 4162 Nov, Lumbago with sciatica, right side M54.41 [facility] [address] [place] [id number] [place] [address] 23851- 8485 Nov, [place] [address] [place] [id number] [place] [address] 51383- 1391 Nov, Unspecified mood [affective] disorder F39 ; Hypokalemia E87.6 and Anemia, unspecified type D64.9 [facility] [address] [place] [id number] [place] [address] 85246- 4642 Nov, [facility] [address] [place] [id number] [place] [address] 44851- 3079 Oct, Lumbago with sciatica, right side M54.41 [facility] [address] [place] [address] 51242 -6891 Aug, Congestive heart failure, unspecified congestive heart failure chronicity, unspecified congestive heart failure type I50.9 and Peripheral edema R60.9 [facility] [address] [place] [id number] [place] [address] 26749- 7459 Aug, Polysubstance (excluding opioids) dependence F19.20 and Lumbago with sciatica, left side M54.42 [facility] [address] [place] [id number] [place] [address] 73680- 7742 Aug, [facility] [address] [place] [id number] [place] [address] 13442 -8757 Aug, Infection of right eye H44.001 [facility] [address] [place] [id number] [place] [address] 60040- 9486 Aug, Congestive heart failure, unspecified congestive heart failure chronicity, unspecified congestive heart failure type I50.9 and Other chronic pain G89.29 [place] [address] [place] [id number] [place] [address] 83296- 0010 Aug, Lumbago with sciatica, right side M54.41 [place] [address] 44740- 3393 Aug, Lumbago with sciatica, right side M54.41 [place] [address] 54297- 7542 Aug, [facility] [address] [place] [id number] [place] [address] 57604- 8318 Jul, [place] [address] 19278- 4929 Jul, COPD (chronic obstructive pulmonary disease) with acute bronchitis J44.0 ; Atrial fibrillation, unspecified type I48.91 ; Polysubstance (excluding opioids) dependence F19.20 ; Congestive heart failure, unspecified congestive heart failure chronicity, unspecified congestive heart failure type I50.9 and Lumbago with sciatica, right side M54.41 [facility] [address] [place] [id number] [place] [address] [id number] Jul, [facility] [address] 60535- 7833 Jul, Seizure disorder G40.909 [facility] [address] [place] [id number] [place] [address] 80492- 2599 Jul, Lumbago with sciatica, right side M54.41 [facility] [address] [place] [id number] [place] [address] 45096- 0147 Jul, [facility] [address] [place] [id number] [place] [address] 41337- 4983 Jun, Congestive heart failure, unspecified congestive heart failure chronicity, unspecified congestive heart failure type I50.9 ; Lumbago with sciatica, right side M54.41 and Other chronic pain G89.29 [place] [address] 30228- 7563 Jun, [place] [address] [place] [id number] [place] [address] 15815- 9110 Jun, [facility] [address] [place] [id number] [place] [address] 25329- 2637 May, Lumbago with sciatica, left side M54.42 [place] [address] [place] [id number] [place] [address] 29968- 3562 May, [facility] [address] [place] [id number] [place] [address] 19072 -0741 May, Unspecified fall, initial encounter W19.XXXA [facility] [address] [place] [id number] [place] [address] 95277- 5264 May, Lumbago with sciatica, right side M54.41 [place] [address] [place] [id number] [place] [address] 35953- 2462 May, [place] [address] [place] [id number] [place] [address] 21563- 9817 May, Bloating R14.0 and Right hip pain M25.551 [facility] [address] [place] [id number] [place] [address] 65006- 9656 Apr, [place] [address] [place] [id number] [place] [address] 87595- 2818 Apr, Lumbago with sciatica, left side M54.42 [place] [address] [place] [id number] [place] [address] 23398- 2333 Mar, [facility] WALK IN [place] [address] 60044 -8784 Mar, Lumbago with sciatica, right side M54.41 [facility] WALK IN [place] [address] 30578 -2519 Mar, Abdominal distension R14.0 [place] [address] 39719- 9715 Mar, Periumbilical abdominal pain R10.33 and Diarrhea, unspecified type R19.7 [facility] WALK IN [address] [address] February, Seasonal allergic rhinitis, unspecified allergic rhinitis trigger J30.2 ; Acute middle ear effusion, bilateral H65.193 and Lumbago with sciatica, right side M54.41 [place] [address] 74360- 7122 February, Routine gynecological examination Z01.419 [place] [address] 11082- 5656 Jan, [place] [address] 68660- 5188 Jan, Atrial fibrillation, unspecified type I48.91 [facility] WALK IN [address] 14292 -2064 Jan, Lumbago with sciatica, right side M54.41 and Wound, open, toe, initial encounter S91.109A [place] [address] [id number] Jan, [facility] WALK IN [place] [address] [address] 15 Jan, 2017 Acute bilateral low back pain without sciatica M54.5 [facility] [address] [place] [id number] [place] [address] 70555- 0330 Dec, Congestive heart failure, unspecified congestive heart failure chronicity, unspecified congestive heart failure type I50.9 [facility] [address] [place] [id number] [place] [address] 51623- 6490 Dec, [place] [address] [place] [id number] [place] [address] 31329- 2671 Dec, Thrush, oral B37.0 and Lumbago with sciatica, right side M54.41 [facility] [address] [place] [id number] [place] [address] 81058- 3151 Dec, [place] [address] 21573- 7085 Nov, [place] [address] [place] [id number] [place] [address] 37619- 4320 Nov, [facility] [address] [place] [id number] [place] [address] 03510- 0057 Oct, Polysubstance (excluding opioids) dependence F19.20 ; Other chronic pain G89.29 and Lumbago with sciatica, right side M54.41 [place] [address] [place] [id number] [place] [address] 74682- 9983 Oct, [place] [address] [place] [id number] [place] [address] 97679- 6888 Aug, Lumbago with sciatica, right side M54.41 ; Other chronic pain G89.29 and Anxiety F41.9 [facility] [address] [place] [id number] [place] [address] 81379- 0295 17 Aug, 2016 [place] [address] [place] [id number] [place] [address] 60354- 8043 Aug, [facility] [address] [address]- 6009 Aug, [facility] [address] [place] [id number] [place] [address] 95348- 7567 Aug, [facility] [address] [place] [id number] [place] [address] 80775- 8333 Aug, [facility] [address] [place] [id number] [place] [address] 23456- 2632 Aug, [facility] [address] [place] [id number] [place] [address] 40657- 2908 Jul, Unspecified mood [affective] disorder F39 and Seizure disorder G40.909 [facility] [address] [place] [id number] [place] [address] 73853- 6815 Jul, [facility] [address] [place] [id number] [place] [address] 59232- 7777 Jul, [facility] [address] [place] [id number] [place] [address] 59469- 0848 Jul, Unspecified mood [affective] disorder F39 and Seizure disorder G40.909 [facility] [address] [place] [address] 65232- 8199 Jul, Polysubstance (excluding opioids) dependence F19.20 ; COPD ( chronic obstructive pulmonary disease) with acute bronchitis J44.0 ; Congestive heart failure, unspecified congestive heart failure chronicity, unspecified congestive heart failure type I50.9 ; Radiculopathy of lumbosacral region M54.17 and Radiculopathy, thoracic region M54.14 [facility] [address] [place] [address] 03642- 6498 Jun, Lumbago M54.5 [facility] [address] [place] [address] 47292- 7001 May, [facility] [address] [place] [id number] [place] [address] 46156- 2674 May, [facility] [address] [place] [address] 02467- 2178 May, [facility] [address] [place] [id number] [place] [address] 17451- 5421 Apr, COPD (chronic obstructive pulmonary disease) with acute bronchitis J44.0 [facility] [address] [place] [id number] [place] [address] 71918- 7831 Apr, Major depressive disorder, recurrent episode, severe F33.2 and Polysubstance (excluding opioids) dependence F19.20 [facility] [address] [place] [id number] [place] [address] 57250- 4984 Mar, Major depressive disorder, recurrent episode, severe F33.2 and Polysubstance (excluding opioids) dependence F19.20 [facility] [address] [place] [id number] [place] [address] 12210- 9245 Mar, Major depressive disorder, recurrent episode, severe F33.2 and Polysubstance (excluding opioids) dependence F19.20 [facility] [address] [place] [address] 89097- 1560 Mar, Major depressive disorder, recurrent episode, severe F33.2 and Polysubstance (excluding opioids) dependence F19.20 [facility] [address] [place] [id number] [place] [address] 43120- 9628 February, Major depressive disorder, recurrent episode, severe F33.2 and Polysubstance (excluding opioids) dependence F19.20 [facility] [address] [place] [address] 26398- 3532 February, [facility] [address] [place] [id number] [place] [address] 99339- 9808 February, COPD (chronic obstructive pulmonary disease) with acute bronchitis J44.0 [facility] [address] [place] [address] 76043 -9509 February, Sore throat J02.9 and Bronchitis J40 [place] [address] [place] [id number] [place] [address] 03031- 3144 Jan, COPD (chronic obstructive pulmonary disease) with acute bronchitis J44.0 [place] [address] 05188- 2443 Jan, COPD (chronic obstructive pulmonary disease) with acute bronchitis J44.0 [place] [address] 43658- 9107 Jan, [address] [address]- 5141 Dec, Gastritis K29.70 ; Constipation K59.00 and Lumbago M54.[address] 24170- 3180 Dec, COPD (chronic obstructive pulmonary disease) with acute bronchitis J44.[address] 67215- 2387 Nov, Major depressive disorder, recurrent episode, severe F33.2 and Polysubstance (excluding opioids) dependence F19.20 [facility] CARE [address] [place] [address] 39138 -5501 Oct, Oral thrush B37.0 and Drug abuse F19.[address] 48115- 4461 Oct, [address] 94282- 0825 Sep, COPD (chronic obstructive pulmonary disease) with acute bronchitis J44.0 ; Esophagitis, reflux K21.0 ; Seizure disorder G40.909 ; Primary insomnia F51.01 ; Edema, due to unspecified malnutrition type, unspecified type R60.9 ; Arthritis M19.90 and Thrush B37.[address] 03202- 5633 Aug, [address] [place] [address]- 0373 Aug, [facility] [address], [place] [address]- 6915 Aug, [facility] [address] [address]- 6496 Jul, [facility] [address] [place] [address] 58482- 0663 Jun, [facility] [address] [place] [id number] [place] [address] 89690- 8115 Jun, Counseling on substance use and abuse V65.42 and Obstructive chronic bronchitis, with (acute) exacerbation 491.21 [facility] [address] [place] [address] 65402- 8676 May, [facility] [address] [place] [id number] [place] [address] 67037- 1859 Apr, [facility] [address] [place] [id number] [place] [address] 57018- 9843 Apr, Abdominal pain 789.00 and Back pain 724.5 [facility] [address] [place] [id number] [place] [address] 80661- 7847 Mar, Back pain 724.5 and Illicit drug use 305.90 [facility] [address] [address]- 4976 February, Onychomycosis 110.1 [facility] [address] [place] [address] 25938- 9541 February, Breast cancer screening V76.10 [facility] [address] [place] [address] 19533- 4824 February, [facility] [address] [place] [address] 68285216- 9169 February, [facility] [address] [place] [address] 172786- 1420 February, Cough 786.2 ; Obstructive chronic bronchitis, with (acute) exacerbation 491.21 ; Vomiting 787.03 ; 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 and Gastritis 535.50 [facility] [address] [place] [id number] [address]- 2730 14 Jan, 2015 [facility] [address] [address]- 1215 Jan, [facility] [address] [place] [id number] [place] [address] 84671- 6400 Dec, [facility] [address] [place] [id number] [place] [address] 56465- 3766 Dec, [facility] [address] [place] [id number] [place] [address] 63373- 6597 Dec, [facility] [address] [place] [id number] [place] [address] 05561- 5029 Dec, [facility] [address] [place] [id number] [place] [address] 68155- 5004 Dec, [facility] [address] [address]- 7536 Dec, [facility] [address] [address]- 6809 Dec, [facility] [address] [address]- 8437 Dec, [facility] [address] [address]- 9278 Dec, [facility] [address] [address]- 0259 Sep, [facility] [address]- 6535 Sep, [facility] [address] [place] [id number] 0602 Sep, [facility] [address] [place] [id number] [place] [address] [place]- 3637 Sep, [facility] [place] [facility] [address] [id number] [place] [address]- 7604 Sep, [facility] [place] [facility] [address] [id number] [place]25 Sep, [facility] [place] [facility] [address] [id number] [place] [address]- 2174 Sep, [facility] [place] [facility] [address] [id number] [place] 2336 Sep, [facility] [place] [facility] [address] [id number] [place] [address]- 8577 Sep, [facility] [place] [facility] [address] [id number] [place] [address]- 3500 Sep, [facility] [place] [facility] [address] [id number] [place] [address]- 6830 Aug, [facility] [place] [facility] [address] [id number] [place] [address]- 2314 Aug, [facility] [place] [facility] [address] [id number] [place] [address]- 1936 Aug, [facility] [place] [facility] [address] [id number] [place] [address]- 2413 Aug, [facility] [place] [facility] [address] [id number] [place] [address]- 1634 Jul, [facility] [place] [facility] [address] [id number] [address]- 3107 Jul, [facility] [place] [facility] [address] [id number] [place] [address]- 6356 Jun, [facility] [place] [facility] [address] [id number] [place] [address] Jun, [facility] [place] [facility] [address] [id number], [place] [address] May, [facility] [place] [facility] [address] [id number] [place] [address] May, [facility] [place] [facility] [address] [id number] [place] [address] May, [facility] [place] [facility] [address] [id number] [place] [address] May, [facility] [place] [facility] [address] [id number] [place] [address] May, [facility] [place] [facility] [address] [id number] [place] [address] May, [facility] [place] [facility] [address] [id number] [place] [address] Apr, [facility] [place] [facility] [address] [id number] [place] [address] Apr, [facility] [place] [facility] [address] [id number] [place] [address] Apr, [facility] [place] [facility] [address] [id number] [place] [address] Apr, [facility] [place] [facility] [address] [id number] [place] [address] February, [facility] [place] [facility] [address] [id number] [place] [address] February, [facility] [place] [facility] [address] [id number] [place] [address] Oct, [facility] [place] [facility] [address] [id number] [place] [address] Oct, [facility] [place] [facility] [address] [id number] [place] [address] Oct, [facility] [place] [facility] [address] [id number] [place] [address] Oct, [facility] [place] [facility] [address] [id number] [place] [address] Sep, [facility] [place] [facility] [address] [id number] [place] [address] Sep, [facility] [place] [facility] [address] [id number] [address] Sep, [facility] [place] [facility] [address] [id number] [place] [address] Sep, [facility] [place] [facility] [address] [id number][place] [address] Aug, [facility] [place] [facility] [address] [id number] [place] [address] Aug, [facility] [place] [facility] [address] [id number], [place] [address] Aug, [facility] [place] [facility] [address] [id number], [place] [address] Aug, [facility] [place] [facility] [address] [id number], [place] [address] Jul, [facility] [place] [facility] [address] [id number], [place] [address] Jul, [facility] [place] [facility] [address] [id number], [place] [address] Jul, [facility] [place] [facility] [address] [id number], [place] [address] Jul, [facility] [place] [facility] [address] [id number], [place] [address] Jul, [facility] [place] [facility] [address] [id number], [place] [address] Jul, [facility] [place] [facility] [address] [id number], [place] [address] Jul, [facility] [place] [facility] [address] [id number], [place] [address] Jul, [facility] [place] [facility] [address] [facility] [id number], [place] [address] Jul, [facility] [address] [facility] [id number], [place] [address] Jul, [facility] [address] [facility] [id number], [place] [address] Jun, [facility] [address] [facility] [id number], [place] [address] May, [facility] [address] [facility] [id number], [place] [address] Apr, [facility] [address] [facility] [id number], [place] [address] Apr, [facility] [address] [facility] [id number], [place] [address] Apr, [facility] [id number], [place] [address] Mar, [facility] [id number], [place] [address] Mar, [facility] [address] [id number], [place] [address] Mar, [facility] [address] [id number], [place] [address] Mar, [facility] [address] [id number] [address] Mar, [facility] [address] [id number], [place] [address] Sep, [facility] [address] [id number], [place] [address] February, [facility] [address] [id number], [place] [address] Jan, IMMUNIZATIONS No Known Immunizations SOCIAL HISTORY Never Assessed REASON FOR VISIT night terrors PLAN OF CARE VITAL SIGNS MEDICATIONS Medication Instructions Dosage Frequency Start Date End Date Duration Status Risperdal 2 MG Orally 2 times a [...]
== END 2018-11-13 15:57 | disposition home or self-care (01) ==
LOC: EDUNIT# 13:02 → ER 13:03
DX: R10.84 Generalized abdominal pain (principal); I25.2 Old myocardial infarction; J43.9 Emphysema, unspecified; I48.91 Unspecified atrial fibrillation; I10 Essential (primary) hypertension; G40.909 Epilepsy, unspecified, not intractable, without status epilepticus; K21.9 Gastro-esophageal reflux disease without esophagitis; K58.9 Irritable bowel syndrome, unspecified; F90.9 Attention-deficit hyperactivity disorder, unspecified type; F98.8 Other specified behavioral and emotional disorders with onset usually occurring in childhood and adolescence; F41.9 Anxiety disorder, unspecified; F43.10 Post-traumatic stress disorder, unspecified; F31.9 Bipolar disorder, unspecified; F17.210 Nicotine dependence, cigarettes, uncomplicated; Z90.49 Acquired absence of other specified parts of digestive tract; Z90.81 Acquired absence of spleen; Z91.5 Personal history of self-harm; Z86.14 Personal history of Methicillin resistant Staphylococcus aureus infection; Z80.49 Family history of malignant neoplasm of other genital organs; Z87.19 Personal history of other diseases of the digestive system; Z88.2 Allergy status to sulfonamides; Z94.1 Heart transplant status; Z98.890 Other specified postprocedural states; Z90.710 Acquired absence of both cervix and uterus; Z98.51 Tubal ligation status; Z95.0 Presence of cardiac pacemaker; Z79.01 Long term (current) use of anticoagulants; Z88.0 Allergy status to penicillin; Z88.1 Allergy status to other antibiotic agents; Z88.6 Allergy status to analgesic agent
CPT/HCPCS: 36415; 71045; 74019; 80053; 81000; 83735; 83880; 84443; 84484; 85025; 93005

== ENCOUNTER 2018-11-25 22:35 | Emergency (ER) | payer MEDICAID ==
[~2018-11-25] VITALS: Ht 160 cm; Wt 63.5 kg
[2018-11-25 23:42] LABS: AMPHETAMINE SCREEN, URINE POSITIVE (NEGATIVE); BARBITURATE SCREEN URINE NEGATIVE (NEGATIVE); BENZODIAZEPINES SCREEN URINE NEGATIVE (NEGATIVE); CANNABINOID SCREEN, URINE POSITIVE (NEGATIVE); COCAINE SCREEN URINE NEGATIVE (NEGATIVE); METHADONE STAT NEGATIVE (NEGATIVE); METHAMPHETAMINE SCREEN URINE S POSITIVE (NEGATIVE); OPIATE SCREEN URINE NEGATIVE (NEGATIVE); OXYCODONE STAT NEGATIVE (NEGATIVE); PROPOXYPHENE STAT NEGATIVE (NEGATIVE); TRICYCLIC ANTIDEPRESSANTS SCRE POSITIVE (NEGATIVE)
[2018-11-25 23:46] VITALS: BP 0/0
--- NOTE | 2018-11-25 23:46 | NUR ---
UPON ATTEMPT TO START IV AND DRAW LABS PT STATES, "YOU BETTER KNOW HOW TO DO THIS. 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 PT STATES "IF YOU WOULD JUST DROP IT, IT WOULD BE FINE, BUT YOU JUST WON'T STOP, I SHOULD JUST LEAVE." PT TAKES OFF BP CUFF, O2 SAT PROBE AND JUMPS OUT OF BED. ATTEMPTED AGAIN TO GET PT TO STAY AND UNDERGO WORKUP. PT STATES, "THIS IS WHY I HATE COMING TO THIS [facility], BECAUSE EVERYONE TREATS ME LIKE CRAP BECAUSE I'M A DRUG ADDICT!". PT LEFT AMA, REFUSING TO SIGN FORM.
[2018-11-26] MEDS ORDERED: CLIN300C11 PO (03:49)
[2018-11-26] MEDS ORDERED: DOXY100T2 PO (04:54)
== END 2018-11-25 23:46 | disposition left against medical advice (07) ==
LOC: EDUNIT# 22:35 → ER 22:37
DX: M79.89 Other specified soft tissue disorders (principal); M79.662 Pain in left lower leg
CPT/HCPCS: 80306; 99282

== ENCOUNTER 2018-11-26 00:53 | Emergency (ER) | payer MEDICAID ==
[~2018-11-26] VITALS: Ht 160 cm; Wt 63.5 kg
[2018-11-26] MEDS ORDERED: oxyCODONE/APAP 5/325MG (PERCOCET 5) TABLET PO ONE (02:00)
[2018-11-26 02:20] LABS: BASOPHILS % (AUTO) 0 % (0-10); EOSINOPHILS # (AUTO) 0.3 10^3/uL (0.0-0.3); EOSINOPHILS % (AUTO) 2 % (0-10); HEMATOCRIT 29 % (35-52); HEMOGLOBIN 9.4 G/DL (11.5-16.0); LYMPHOCYTES # (AUTO) 2.5 X 10^3 (1.0-4.0); LYMPHOCYTES % (AUTO) 14 % (12-44); MEAN CORPUSCULAR HEMOGLOBIN 22 PG (25-34); MEAN CORPUSCULAR HGB CONC 33 G/DL (32-36); MEAN CORPUSCULAR VOLUME 68 FL (80-99); MONOCYTES # (AUTO) 2.1 X 10^3 (0.0-1.0); MONOCYTES % (AUTO) 12 % (0-12); NEUTROPHILS # (AUTO) 12.8 X 10^3 (1.8-7.8); NEUTROPHILS % (AUTO) 72 % (42-75); PLATELET COUNT 486 10^3/uL (130-400); RED CELL DISTRIBUTION WIDTH 22.1 % (10.0-14.5); WHITE BLOOD COUNT 17.8 10^3/uL (4.3-11.0)
[2018-11-26 02:40] LABS: ALANINE AMINOTRANSFERASE 14 U/L (0-55); ALBUMIN 4.1 GM/DL (3.2-4.5); ALKALINE PHOSPHATASE 145 U/L (40-136); BILIRUBIN,TOTAL 1.3 MG/DL (0.1-1.0); BUN/CREATININE RATIO 9; CALCIUM 8.9 MG/DL (8.5-10.1); CARBON DIOXIDE 22 MMOL/L (21-32); CHLORIDE 102 MMOL/L (98-107); CREATININE SERUM 0.68 MG/DL (0.60-1.30); GFR ESTIMATED > 60; GLUCOSE 104 MG/DL (70-105); POTASSIUM 3.1 MMOL/L (3.6-5.0); SODIUM 138 MMOL/L (135-145); TOTAL PROTEIN 7.8 GM/DL (6.4-8.2)
--- NOTE | 2018-11-26 03:02 | NUR ---
pt noted to have several hypotensive episodes randomly, went into pt's room to find her culed in position asleep, asked pt to lay supine and reassessed blood pressure, pt normotensive.
[2018-11-26 03:36] LABS: ANISOCYTOSIS MODERATE; EOSINOPHILS % (MANUAL) 3 %; HYPOCHROMASIA MARKED; LYMPHOCYTES % (MANUAL) 15 %; MONOCYTES % (MANUAL) 7 %; NEUTROPHILS % (MANUAL) 75 %; POLYCHROMASIA SLIGHT
[2018-11-26 03:37] LABS: ELLIPT/OVALOCYTES MODERATE; TARGET CELLS MODERATE
[2018-11-26 03:38] LABS: ACANTHOCYTES MODERATE; BURR CELLS MODERATE; ERYTHROCYTE SEDIMENTATION RATE 13 MM/HR (0-20)
[2018-11-26] MEDS ORDERED: CLINDAMYCIN 900 MG/50 ML IVPB 50 ML IV ONE (03:45)
[2018-11-26] MEDS ORDERED: CLIN300C11 PO (03:49)
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
[2018-11-26] MEDS ORDERED: CLINDAMYCIN 600 MG/4ML (CLEOCIN) VIAL IM ONE (04:15)
[2018-11-26] MEDS ORDERED: CLINDAMYCIN 300 MG/2ML (CLEOCIN) VIAL ONE (04:22)
[2018-11-26] MEDS ORDERED: DOXY100T2 PO (04:54)
[2018-11-26 05:28] VITALS: BP 115/70
--- NOTE | 2018-11-26 07:34 | Diagnostic Imaging Report ---
PATIENT HISTORY: Leg pain, skin wound problems, pacemaker, history of cardiac disease. TECHNIQUE: Frontal view of the chest. COMPARISON: 11/13/2018. FINDINGS: Lung volumes are normal. No focal consolidation is seen. There is no pleural effusion or pneumothorax. The cardiac silhouette is mildly prominent, but stable in size. Tavares rods are noted in the lumbar spine. Pacemaker leads are noted. Sternotomy wires are seen. IMPRESSION: Stable mild cardiomegaly with no acute pulmonary abnormality seen. Dictated by: Dictated on workstation # [id number]
== END 2018-11-26 05:30 | disposition home or self-care (01) ==
LOC: EDUNIT# 00:53 → ER 00:54
DX: L03.115 Cellulitis of right lower limb (principal); L03.116 Cellulitis of left lower limb; D72.829 Elevated white blood cell count, unspecified; E87.6 Hypokalemia; J43.9 Emphysema, unspecified; J45.909 Unspecified asthma, uncomplicated; I48.91 Unspecified atrial fibrillation; I10 Essential (primary) hypertension; G40.909 Epilepsy, unspecified, not intractable, without status epilepticus; K21.9 Gastro-esophageal reflux disease without esophagitis; F15.10 Other stimulant abuse, uncomplicated; K58.9 Irritable bowel syndrome, unspecified; F90.9 Attention-deficit hyperactivity disorder, unspecified type; F41.9 Anxiety disorder, unspecified; F43.10 Post-traumatic stress disorder, unspecified; F31.9 Bipolar disorder, unspecified; F60.9 Personality disorder, unspecified; Z77.22 Contact with and (suspected) exposure to environmental tobacco smoke (acute) (chronic); Z90.49 Acquired absence of other specified parts of digestive tract; Z90.710 Acquired absence of both cervix and uterus; Z95.0 Presence of cardiac pacemaker; Z98.51 Tubal ligation status; Z88.0 Allergy status to penicillin; Z88.2 Allergy status to sulfonamides; Z88.8 Allergy status to other drugs, medicaments and biological substances; Z88.1 Allergy status to other antibiotic agents
CPT/HCPCS: 36415; 71045; 80053; 83880; 85007; 85027; 85652; 86141

== ENCOUNTER 2018-12-19 14:10 | Emergency (ER) | payer MEDICAID ==
[~2018-12-19] VITALS: Ht 160 cm; Wt 62.1 kg
[~2018-12-19 14:10] MED LIST changes: +CLIN300C11 PO; +DOXY100T2 PO
[2018-12-19 14:37] LABS: BILIRUBIN,URINE NEGATIVE (NEGATIVE); CLARITY,URINE CLEAR; COLOR,URINE YELLOW; GLUCOSE, URINE (UA) NEGATIVE (NEGATIVE); KETONES,URINE NEGATIVE (NEGATIVE); LEUKOCYTE ESTERASE ,URINE 1+ (NEGATIVE); NITRITE,URINE NEGATIVE (NEGATIVE); PH,URINE 6 (5-9); PROTEIN,URINE 1+ (NEGATIVE); UROBILINOGEN,URINE 1 MG/DL (NORMAL)
[2018-12-19 14:54] LABS: BACTERIA,URINE TRACE /HPF; RBC,URINE RARE /HPF; WBC,URINE 0-2 /HPF
[2018-12-19 15:21] LABS: BASOPHILS # (AUTO) 0.1 10^3/uL (0.0-0.1); BASOPHILS % (AUTO) 1 % (0-10); EOSINOPHILS # (AUTO) 0.8 10^3/uL (0.0-0.3); EOSINOPHILS % (AUTO) 7 % (0-10); HEMATOCRIT 29 % (35-52); HEMOGLOBIN 9.3 G/DL (11.5-16.0); LYMPHOCYTES # (AUTO) 2.4 X 10^3 (1.0-4.0); LYMPHOCYTES % (AUTO) 24 % (12-44); MEAN CORPUSCULAR HEMOGLOBIN 22 PG (25-34); MEAN CORPUSCULAR HGB CONC 32 G/DL (32-36); MEAN CORPUSCULAR VOLUME 69 FL (80-99); MEAN PLATELET VOLUME 9.7 FL (7.4-10.4); MONOCYTES # (AUTO) 1.2 X 10^3 (0.0-1.0); MONOCYTES % (AUTO) 12 % (0-12); NEUTROPHILS # (AUTO) 5.8 X 10^3 (1.8-7.8); NEUTROPHILS % (AUTO) 56 % (42-75); PLATELET COUNT 470 10^3/uL (130-400); RED CELL DISTRIBUTION WIDTH 21.4 % (10.0-14.5); WHITE BLOOD COUNT 10.3 10^3/uL (4.3-11.0)
[2018-12-19] MEDS ORDERED: KETOROLAC 60 MG/2 ML VIAL IM ONE (15:30)
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
[2018-12-19 15:43] LABS: ALANINE AMINOTRANSFERASE 11 U/L (0-55); ALBUMIN 3.9 GM/DL (3.2-4.5); ALKALINE PHOSPHATASE 179 U/L (40-136); BILIRUBIN,TOTAL 0.6 MG/DL (0.1-1.0); BUN/CREATININE RATIO 7; CARBON DIOXIDE 24 MMOL/L (21-32); CHLORIDE 102 MMOL/L (98-107); CREATININE SERUM 0.67 MG/DL (0.60-1.30); GFR ESTIMATED > 60; GLUCOSE 98 MG/DL (70-105); LIPASE 25 U/L (8-78); POTASSIUM 3.5 MMOL/L (3.6-5.0); SODIUM 136 MMOL/L (135-145); TOTAL PROTEIN 7.6 GM/DL (6.4-8.2)
--- NOTE | 2018-12-19 16:06 | Diagnostic Imaging Report ---
PROCEDURE: CT abdomen and pelvis without contrast. TECHNIQUE: Multiple contiguous axial images were obtained through the abdomen and pelvis without the use of intravenous contrast. INDICATION: Abdominal pain. Rigid abdomen. COMPARISON: Abdominal radiographs 11/13/2018. CT of the abdomen and pelvis with IV contrast 09/09/2017. FINDINGS: Small right pleural effusion. Cardiomegaly is partially visualized. Stable right abdominal wall cardiac pacer. Large amount of free fluid throughout the abdomen is new since the prior CT examination. There is also mesenteric edema with diffusely prominent mesenteric lymph nodes. The spleen is absent. The liver, pancreas, adrenals, kidneys, collecting systems and bladder are unremarkable on this non-contrast exam. Reported appendectomy.. Hysterectomy. No lymphadenopathy. No evidence of bowel obstruction. Postoperative changes in the lower thoracic spine. No acute osseous findings. IMPRESSION: Since the prior CT examination, there is a new large degree of ascites with mesenteric edema and diffusely prominent mesenteric lymph nodes. No discrete intra-abdominal mass is identified on this noncontrast exam. There is persistent cardiomegaly with a new small right pleural effusion, both are partially visualized. Dictated by: Dictated on workstation # [id number]
[2018-12-19] MEDS ORDERED: HYDROcodone/APAP 5 MG/325 MG (LORTAB) TAB ONE (16:25)
[2018-12-19] MEDS ORDERED: HYDROcodone/APAP 5 MG/325 MG (LORTAB) TAB PO ONE (16:30)
[2018-12-19 16:32] LABS: INR 2.2 (0.8-1.4); PROTHROMBIN TIME PATIENT 24.9 SEC (12.2-14.7)
[2018-12-19 16:41] LABS: AMPHETAMINE SCREEN, URINE NEGATIVE (NEGATIVE); BARBITURATE SCREEN URINE NEGATIVE (NEGATIVE); BENZODIAZEPINES SCREEN URINE NEGATIVE (NEGATIVE); CANNABINOID SCREEN, URINE POSITIVE (NEGATIVE); COCAINE SCREEN URINE NEGATIVE (NEGATIVE); METHADONE STAT NEGATIVE (NEGATIVE); METHAMPHETAMINE SCREEN URINE S NEGATIVE (NEGATIVE); OPIATE SCREEN URINE NEGATIVE (NEGATIVE); OXYCODONE STAT NEGATIVE (NEGATIVE); PROPOXYPHENE STAT NEGATIVE (NEGATIVE); TRICYCLIC ANTIDEPRESSANTS SCRE POSITIVE (NEGATIVE)
[2018-12-19] MEDS ORDERED: HYDR-4226 PO (16:48)
[2018-12-19 16:50] VITALS: BP 113/49
[2018-12-20 06:29] LABS: HEPATITIS C ANTIBODY C Non-Reactive (Non-Reactive)
== END 2018-12-19 16:50 | disposition home or self-care (01) ==
LOC: EDUNIT# 14:10 → ER 14:12
DX: R18.8 Other ascites (principal); J43.9 Emphysema, unspecified; I48.91 Unspecified atrial fibrillation; I25.10 Atherosclerotic heart disease of native coronary artery without angina pectoris; I10 Essential (primary) hypertension; I25.2 Old myocardial infarction; Q24.9 Congenital malformation of heart, unspecified; G40.909 Epilepsy, unspecified, not intractable, without status epilepticus; K21.9 Gastro-esophageal reflux disease without esophagitis; F90.9 Attention-deficit hyperactivity disorder, unspecified type; F98.8 Other specified behavioral and emotional disorders with onset usually occurring in childhood and adolescence; F41.9 Anxiety disorder, unspecified; F43.10 Post-traumatic stress disorder, unspecified; F31.9 Bipolar disorder, unspecified; F60.9 Personality disorder, unspecified; Z80.49 Family history of malignant neoplasm of other genital organs; Z86.14 Personal history of Methicillin resistant Staphylococcus aureus infection; Z91.5 Personal history of self-harm; Z87.19 Personal history of other diseases of the digestive system; Z87.448 Personal history of other diseases of urinary system; Z88.0 Allergy status to penicillin; Z88.2 Allergy status to sulfonamides; Z88.1 Allergy status to other antibiotic agents; Z88.8 Allergy status to other drugs, medicaments and biological substances; Z79.01 Long term (current) use of anticoagulants; Z77.22 Contact with and (suspected) exposure to environmental tobacco smoke (acute) (chronic); Z90.49 Acquired absence of other specified parts of digestive tract; Z90.710 Acquired absence of both cervix and uterus; Z98.51 Tubal ligation status; Z95.2 Presence of prosthetic heart valve
CPT/HCPCS: 36415; 74176; 80053; 80074; 80306; 81000; 83690; 85025; 85610; 85730; 96372

== ENCOUNTER 2018-12-21 17:43 | Emergency (ER) | payer MEDICAID ==
[~2018-12-21] VITALS: Ht 160 cm; Wt 62.1 kg
[~2018-12-21 17:43] MED LIST changes: +HYDR-4226 PO
[2018-12-21] MEDS ORDERED: DOXYCYCLINE 100 MG (VIBRAMYCIN) TABLET PO SCH (18:00)
[2018-12-21] MEDS ORDERED: FUROSEMIDE 40 MG (LASIX) TAB PO ONE (18:00)
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
[2018-12-21] MEDS ORDERED: DOXY100T19 PO (18:07)
[2018-12-21] MEDS ORDERED: POTA20PA34 PO (18:07)
[2018-12-21] MEDS ORDERED: FURO-124 PO (18:07)
[2018-12-21] MEDS ORDERED: cefTRIAXone 1,000 MG/2.86 ml vial (IM ONLY) IM SCH (18:15)
[2018-12-21] MEDS ORDERED: LIDOCAINE 1% INJ 20 ML 20 ML VIAL INJ ONE (18:15)
[2018-12-21] MEDS ORDERED: FUROSEMIDE 20 MG (LASIX) TAB ONE (18:27)
[2018-12-21 18:44] LABS: BASOPHILS % (AUTO) 0 % (0-10); EOSINOPHILS # (AUTO) 0.6 10^3/uL (0.0-0.3); EOSINOPHILS % (AUTO) 5 % (0-10); HEMATOCRIT 27 % (35-52); HEMOGLOBIN 9.1 G/DL (11.5-16.0); LYMPHOCYTES # (AUTO) 2.4 X 10^3 (1.0-4.0); LYMPHOCYTES % (AUTO) 17 % (12-44); MEAN CORPUSCULAR HEMOGLOBIN 22 PG (25-34); MEAN CORPUSCULAR HGB CONC 33 G/DL (32-36); MEAN CORPUSCULAR VOLUME 67 FL (80-99); MEAN PLATELET VOLUME 9.4 FL (7.4-10.4); MONOCYTES % (AUTO) 14 % (0-12); NEUTROPHILS # (AUTO) 9.1 X 10^3 (1.8-7.8); NEUTROPHILS % (AUTO) 64 % (42-75); PLATELET COUNT 472 10^3/uL (130-400); RED CELL DISTRIBUTION WIDTH 20.5 % (10.0-14.5); WHITE BLOOD COUNT 14.2 10^3/uL (4.3-11.0)
[2018-12-21] MEDS ORDERED: KETOROLAC 60 MG/2 ML VIAL IM ONE (18:45)
[2018-12-21] MEDS ORDERED: CEPH-507 PO (18:56)
[2018-12-21 19:05] VITALS: BP 98/71
[2018-12-21 19:22] LABS: ANISOCYTOSIS SLIGHT; EOSINOPHILS % (MANUAL) 4 %; HYPOCHROMASIA SLIGHT; LYMPHOCYTES % (MANUAL) 19 %; MICROCYTOSIS SLIGHT; MONOCYTES % (MANUAL) 6 %; NEUTROPHILS % (MANUAL) 71 %; NUCLEATED RED BLOOD CELLS 1; POLYCHROMASIA SLIGHT; RBC MORPH ABNORMAL; TARGET CELLS MODERATE
[2018-12-21 19:23] LABS: BURR CELLS SLIGHT; SCHISTOCYTES SLIGHT
== END 2018-12-21 19:05 | disposition home or self-care (01) ==
LOC: EDUNIT# 17:43 → ER 17:44
DX: L03.115 Cellulitis of right lower limb (principal); L03.116 Cellulitis of left lower limb; R60.0 Localized edema; J43.9 Emphysema, unspecified; I42.9 Cardiomyopathy, unspecified; I48.91 Unspecified atrial fibrillation; I10 Essential (primary) hypertension; Q24.9 Congenital malformation of heart, unspecified; G40.909 Epilepsy, unspecified, not intractable, without status epilepticus; K21.9 Gastro-esophageal reflux disease without esophagitis; K58.9 Irritable bowel syndrome, unspecified; F98.8 Other specified behavioral and emotional disorders with onset usually occurring in childhood and adolescence; F90.9 Attention-deficit hyperactivity disorder, unspecified type; F41.9 Anxiety disorder, unspecified; F43.10 Post-traumatic stress disorder, unspecified; F31.9 Bipolar disorder, unspecified; F60.9 Personality disorder, unspecified; Z80.49 Family history of malignant neoplasm of other genital organs; Z91.5 Personal history of self-harm; Z90.81 Acquired absence of spleen; Z87.19 Personal history of other diseases of the digestive system; Z90.49 Acquired absence of other specified parts of digestive tract; Z90.710 Acquired absence of both cervix and uterus; Z98.51 Tubal ligation status; Z95.0 Presence of cardiac pacemaker; Z88.0 Allergy status to penicillin; Z88.2 Allergy status to sulfonamides; Z88.1 Allergy status to other antibiotic agents; Z79.01 Long term (current) use of anticoagulants
CPT/HCPCS: 36415; 85007; 85027; 99284

== ENCOUNTER 2018-12-22 18:12 | Emergency (ER) | payer MEDICAID ==
[~2018-12-22] VITALS: Ht 160 cm; Wt 62.1 kg
[~2018-12-22 18:12] MED LIST changes: +CEPH-507 PO; +DOXY100T19 PO; +POTA20PA34 PO
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
[2018-12-22] MEDS ORDERED: KCL 20 MEQ POWDER FOR ORAL SOLUTION PO ONE (19:00)
[2018-12-22] MEDS ORDERED: RX-HYDROCODONE/APAP 5/325 MG #4 TAB PK PO PRN (19:00)
[2018-12-22] MEDS ORDERED: CEFDINIR 300 MG (OMNICEF) CAP PO ONE (19:00)
[2018-12-22] MEDS ORDERED: FUROSEMIDE 40 MG (LASIX) TAB PO ONE (19:00)
[2018-12-22 19:06] LABS: BASOPHILS % (AUTO) 0 % (0-10); EOSINOPHILS # (AUTO) 0.1 10^3/uL (0.0-0.3); EOSINOPHILS % (AUTO) 1 % (0-10); HEMATOCRIT 26 % (35-52); HEMOGLOBIN 8.5 G/DL (11.5-16.0); LYMPHOCYTES % (AUTO) 8 % (12-44); MEAN CORPUSCULAR HEMOGLOBIN 22 PG (25-34); MEAN CORPUSCULAR HGB CONC 33 G/DL (32-36); MEAN CORPUSCULAR VOLUME 68 FL (80-99); MEAN PLATELET VOLUME 10.3 FL (7.4-10.4); MONOCYTES # (AUTO) 1.8 X 10^3 (0.0-1.0); MONOCYTES % (AUTO) 7 % (0-12); NEUTROPHILS # (AUTO) 20.5 X 10^3 (1.8-7.8); NEUTROPHILS % (AUTO) 84 % (42-75); PLATELET COUNT 422 10^3/uL (130-400); RED CELL DISTRIBUTION WIDTH 19.8 % (10.0-14.5); WHITE BLOOD COUNT 24.4 10^3/uL (4.3-11.0)
[2018-12-22 19:20] LABS: BUN/CREATININE RATIO 9; CALCIUM 9.1 MG/DL (8.5-10.1); CARBON DIOXIDE 23 MMOL/L (21-32); CHLORIDE 96 MMOL/L (98-107); CREATININE SERUM 0.79 MG/DL (0.60-1.30); GFR ESTIMATED > 60; GLUCOSE 142 MG/DL (70-105); POTASSIUM 3.3 MMOL/L (3.6-5.0); SODIUM 131 MMOL/L (135-145)
[2018-12-22 19:28] LABS: EOSINOPHILS % (MANUAL) 1 %; LYMPHOCYTES % (MANUAL) 8 %; MONOCYTES % (MANUAL) 7 %; NEUTROPHILS % (MANUAL) 85 %
[2018-12-22 19:29] LABS: ANISOCYTOSIS MODERATE; BURR CELLS SLIGHT; ELLIPT/OVALOCYTES MODERATE; HYPOCHROMASIA MODERATE; MICROCYTOSIS MODERATE; POIKILOCYTOSIS MARKED; POLYCHROMASIA SLIGHT; TARGET CELLS MODERATE; TOXIC GRANULATION/VACUOLAZATIO 1+
[2018-12-22 19:30] LABS: SCHISTOCYTES MODERATE; TEAR DROP CELLS SLIGHT
--- NOTE | 2018-12-22 19:30 | Diagnostic Imaging Report ---
INDICATION: Swelling. The study compared 11/26/2018. FINDINGS: The heart size is at the upper limits but has decreased from prior. No vascular congestion, edema, pneumonia, effusion or pneumothorax. Pacemaker device and postoperative spine unchanged. IMPRESSION: Reduction in enlargement of the cardiac silhouette, no edema, pneumonia, effusion or acute pathology. Dictated by: Dictated on workstation # [id number]
[2018-12-22] MEDS ORDERED: cefTRIAXone FOR IV USE 1,000 MG in WATER (STERILE) FOR INJECTION 10 ML IV ONE (19:45)
[2018-12-22] MEDS ORDERED: VANCOMYCIN INJECTION 1,000 MG in NS (IVPB) 250 ML IV SCH (19:45)
[2018-12-22] MEDS ORDERED: VANCOMYCIN 1000 MG/VIAL ONE (19:49)
[2018-12-22] MEDS ORDERED: NS (IVPB) 250 ML ONE (19:50)
[2018-12-22] MEDS ORDERED: ONDANSETRON 4 MG/2 ML (SDV) Z0FRAN IVP ONE (20:45)
[2018-12-22 21:05] VITALS: BP 105/70
== END 2018-12-22 21:04 | disposition short-term general hospital (02) ==
LOC: EDUNIT# 18:12 → ER 18:14
DX: A41.9 Sepsis, unspecified organism (principal); L03.116 Cellulitis of left lower limb; L03.115 Cellulitis of right lower limb; J43.9 Emphysema, unspecified; I48.91 Unspecified atrial fibrillation; I10 Essential (primary) hypertension; I25.2 Old myocardial infarction; G40.909 Epilepsy, unspecified, not intractable, without status epilepticus; F98.8 Other specified behavioral and emotional disorders with onset usually occurring in childhood and adolescence; F90.9 Attention-deficit hyperactivity disorder, unspecified type; F41.9 Anxiety disorder, unspecified; F43.10 Post-traumatic stress disorder, unspecified; F31.9 Bipolar disorder, unspecified; F60.9 Personality disorder, unspecified; K58.9 Irritable bowel syndrome, unspecified; K21.9 Gastro-esophageal reflux disease without esophagitis; Z91.5 Personal history of self-harm; Z94.6 Bone transplant status; Z80.49 Family history of malignant neoplasm of other genital organs; Z87.19 Personal history of other diseases of the digestive system; Z88.1 Allergy status to other antibiotic agents; Z88.2 Allergy status to sulfonamides; Z88.0 Allergy status to penicillin; Z79.01 Long term (current) use of anticoagulants; Z77.22 Contact with and (suspected) exposure to environmental tobacco smoke (acute) (chronic); Z90.710 Acquired absence of both cervix and uterus; Z95.0 Presence of cardiac pacemaker; Z95.2 Presence of prosthetic heart valve; Z98.51 Tubal ligation status; Z91.14 Patient's other noncompliance with medication regimen
CPT/HCPCS: 36415; 71045; 80048; 80162; 83605; 83880; 85007; 85027; 87040

== ENCOUNTER 2019-01-05 16:10 | Emergency (ER) | payer MEDICAID ==
[~2019-01-05] VITALS: Ht 160 cm; Wt 61.2 kg
[2019-01-05 16:43] VITALS: BP 107/69
--- NOTE | 2019-01-05 17:47 | NUR ---
Called to back and pt not in waiting room.
--- NOTE | 2019-01-05 18:14 | NUR ---
pt not in waiting room at this time
== END 2019-01-05 18:15 | disposition left against medical advice (07) ==
LOC: EDUNIT# 16:10 → ER 16:12
DX: R14.0 Abdominal distension (gaseous) (principal); R60.0 Localized edema
CPT/HCPCS: 99281

== ENCOUNTER 2019-01-08 10:14 | Emergency (ER) | payer MEDICAID ==
[~2019-01-08] VITALS: Ht 160 cm; Wt 63.5 kg
[2019-01-08 11:33] LABS: BILIRUBIN,URINE NEGATIVE (NEGATIVE); CLARITY,URINE CLEAR; COLOR,URINE YELLOW; GLUCOSE, URINE (UA) NEGATIVE (NEGATIVE); KETONES,URINE NEGATIVE (NEGATIVE); LEUKOCYTE ESTERASE ,URINE 1+ (NEGATIVE); NITRITE,URINE NEGATIVE (NEGATIVE); PH,URINE 6.5 (5-9); PROTEIN,URINE NEGATIVE (NEGATIVE); UROBILINOGEN,URINE NORMAL (NORMAL)
[2019-01-08 11:47] LABS: BACTERIA,URINE TRACE /HPF
[2019-01-08 11:54] LABS: AMPHETAMINE SCREEN, URINE NEGATIVE (NEGATIVE); BARBITURATE SCREEN URINE NEGATIVE (NEGATIVE); BENZODIAZEPINES SCREEN URINE NEGATIVE (NEGATIVE); CANNABINOID SCREEN, URINE POSITIVE (NEGATIVE); COCAINE SCREEN URINE NEGATIVE (NEGATIVE); METHADONE STAT NEGATIVE (NEGATIVE); METHAMPHETAMINE SCREEN URINE S NEGATIVE (NEGATIVE); OPIATE SCREEN URINE NEGATIVE (NEGATIVE); TRICYCLIC ANTIDEPRESSANTS SCRE POSITIVE (NEGATIVE)
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
[2019-01-08 11:55] LABS: OXYCODONE STAT NEGATIVE (NEGATIVE); PROPOXYPHENE STAT NEGATIVE (NEGATIVE)
[2019-01-08 12:08] LABS: HEMATOCRIT 30 % (35-52); HEMOGLOBIN 9.7 G/DL (11.5-16.0); LYMPHOCYTES % (AUTO) 23 % (12-44); MEAN CORPUSCULAR HGB CONC 32 G/DL (32-36); MEAN CORPUSCULAR VOLUME 69 FL (80-99); MEAN PLATELET VOLUME 10.8 FL (7.4-10.4); NEUTROPHILS % (AUTO) 59 % (42-75); PLATELET COUNT 732 10^3/uL (130-400); RED CELL DISTRIBUTION WIDTH 21.2 % (10.0-14.5); WHITE BLOOD COUNT 11.4 10^3/uL (4.3-11.0)
[2019-01-08 12:09] LABS: BASOPHILS # (AUTO) 0.1 10^3/uL (0.0-0.1); BASOPHILS % (AUTO) 1 % (0-10); EOSINOPHILS # (AUTO) 0.7 10^3/uL (0.0-0.3); EOSINOPHILS % (AUTO) 6 % (0-10); LYMPHOCYTES # (AUTO) 2.7 X 10^3 (1.0-4.0); MEAN CORPUSCULAR HEMOGLOBIN 22 PG (25-34); MONOCYTES # (AUTO) 1.2 X 10^3 (0.0-1.0); MONOCYTES % (AUTO) 11 % (0-12); NEUTROPHILS # (AUTO) 6.7 X 10^3 (1.8-7.8)
[2019-01-08 12:27] LABS: ALANINE AMINOTRANSFERASE 14 U/L (0-55); ALBUMIN 4.3 GM/DL (3.2-4.5); ALKALINE PHOSPHATASE 184 U/L (40-136); AMYLASE 37 U/L (25-125); BILIRUBIN,TOTAL 0.6 MG/DL (0.1-1.0); BUN/CREATININE RATIO 11; CALCIUM 9.3 MG/DL (8.5-10.1); CARBON DIOXIDE 23 MMOL/L (21-32); CHLORIDE 101 MMOL/L (98-107); CREATININE SERUM 0.81 MG/DL (0.60-1.30); GFR ESTIMATED > 60; GLUCOSE 87 MG/DL (70-105); POTASSIUM 4.7 MMOL/L (3.6-5.0); SODIUM 135 MMOL/L (135-145); TOTAL PROTEIN 9.1 GM/DL (6.4-8.2)
[2019-01-08] MEDS ORDERED: FAMOTIDINE 20 MG (PEPCID) TABLET PO STA (13:05)
[2019-01-08] MEDS ORDERED: HYOSCYAMINE 0.125 MG (LEVSIN) TAB SL ONE (13:15)
--- NOTE | 2019-01-08 13:20 | NUR ---
pt d/c'd by nursing students. nursing students forgot to get repeat VS before pt left.
[2019-01-08] MEDS ORDERED: HYOS0.1283 SL (13:30)
[2019-01-08 14:20] VITALS: BP 105/66
== END 2019-01-08 13:20 | disposition home or self-care (01) ==
LOC: EDUNIT# 10:14 → ER 10:16
DX: R10.84 Generalized abdominal pain (principal); K21.9 Gastro-esophageal reflux disease without esophagitis; K58.9 Irritable bowel syndrome, unspecified; I25.2 Old myocardial infarction; I48.91 Unspecified atrial fibrillation; I10 Essential (primary) hypertension; F98.8 Other specified behavioral and emotional disorders with onset usually occurring in childhood and adolescence; F90.9 Attention-deficit hyperactivity disorder, unspecified type; F41.9 Anxiety disorder, unspecified; F43.10 Post-traumatic stress disorder, unspecified; F31.9 Bipolar disorder, unspecified; F60.9 Personality disorder, unspecified; F12.10 Cannabis abuse, uncomplicated; F17.210 Nicotine dependence, cigarettes, uncomplicated; Z80.49 Family history of malignant neoplasm of other genital organs; Z88.0 Allergy status to penicillin; Z91.5 Personal history of self-harm; Z86.14 Personal history of Methicillin resistant Staphylococcus aureus infection; Z88.2 Allergy status to sulfonamides; Z87.448 Personal history of other diseases of urinary system; Z90.81 Acquired absence of spleen; Z90.89 Acquired absence of other organs; Z87.19 Personal history of other diseases of the digestive system; Z88.8 Allergy status to other drugs, medicaments and biological substances; Z90.49 Acquired absence of other specified parts of digestive tract; Z90.710 Acquired absence of both cervix and uterus; Z98.51 Tubal ligation status; Z95.2 Presence of prosthetic heart valve; Z95.0 Presence of cardiac pacemaker; Z79.01 Long term (current) use of anticoagulants
CPT/HCPCS: 36415; 80053; 80306; 80320; 81000; 82150; 85025

== ENCOUNTER 2019-01-13 17:36 | Emergency (ER) | payer MEDICAID ==
[~2019-01-13] VITALS: Ht 160 cm; Wt 62.1 kg
[~2019-01-13 17:36] MED LIST changes: +HYOS0.1283 SL
[2019-01-13 17:59] LABS: CLARITY,URINE SLIGHTLY CLOUDY; COLOR,URINE AMBER; GLUCOSE, URINE (UA) NEGATIVE (NEGATIVE); KETONES,URINE NEGATIVE (NEGATIVE); LEUKOCYTE ESTERASE ,URINE 2+ (NEGATIVE); NITRITE,URINE NEGATIVE (NEGATIVE); PH,URINE 6 (5-9); PROTEIN,URINE 1+ (NEGATIVE); UROBILINOGEN,URINE 4 MG/DL (NORMAL)
[2019-01-13 18:08] LABS: BILIRUBIN,URINE 1+ (NEGATIVE)
[2019-01-13 18:09] LABS: BACTERIA,URINE FEW /HPF
[2019-01-13 18:12] LABS: AMPHETAMINE SCREEN, URINE NEGATIVE (NEGATIVE); BARBITURATE SCREEN URINE NEGATIVE (NEGATIVE); BENZODIAZEPINES SCREEN URINE NEGATIVE (NEGATIVE); CANNABINOID SCREEN, URINE POSITIVE (NEGATIVE); COCAINE SCREEN URINE NEGATIVE (NEGATIVE); METHADONE STAT NEGATIVE (NEGATIVE); METHAMPHETAMINE SCREEN URINE S NEGATIVE (NEGATIVE); OPIATE SCREEN URINE NEGATIVE (NEGATIVE); OXYCODONE STAT NEGATIVE (NEGATIVE); PROPOXYPHENE STAT NEGATIVE (NEGATIVE); TRICYCLIC ANTIDEPRESSANTS SCRE POSITIVE (NEGATIVE)
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
[2019-01-13 19:00] LABS: BASOPHILS % (AUTO) 0 % (0-10); EOSINOPHILS # (AUTO) 1.1 10^3/uL (0.0-0.3); EOSINOPHILS % (AUTO) 9 % (0-10); HEMATOCRIT 28 % (35-52); HEMOGLOBIN 9.1 G/DL (11.5-16.0); LYMPHOCYTES % (AUTO) 31 % (12-44); MEAN CORPUSCULAR HEMOGLOBIN 22 PG (25-34); MEAN CORPUSCULAR HGB CONC 32 G/DL (32-36); MEAN CORPUSCULAR VOLUME 69 FL (80-99); MEAN PLATELET VOLUME 9.9 FL (7.4-10.4); MONOCYTES # (AUTO) 1.4 X 10^3 (0.0-1.0); MONOCYTES % (AUTO) 11 % (0-12); NEUTROPHILS # (AUTO) 6.3 X 10^3 (1.8-7.8); NEUTROPHILS % (AUTO) 49 % (42-75); PLATELET COUNT 582 10^3/uL (130-400); RED CELL DISTRIBUTION WIDTH 19.8 % (10.0-14.5); WHITE BLOOD COUNT 12.8 10^3/uL (4.3-11.0)
[2019-01-13 19:19] LABS: ALANINE AMINOTRANSFERASE 17 U/L (0-55); ALBUMIN 4.1 GM/DL (3.2-4.5); ALKALINE PHOSPHATASE 179 U/L (40-136); AMYLASE 31 U/L (25-125); BILIRUBIN,TOTAL 0.5 MG/DL (0.1-1.0); BUN/CREATININE RATIO 15; CALCIUM 9.4 MG/DL (8.5-10.1); CARBON DIOXIDE 26 MMOL/L (21-32); CHLORIDE 100 MMOL/L (98-107); CREATININE SERUM 0.86 MG/DL (0.60-1.30); GFR ESTIMATED > 60; GLUCOSE 97 MG/DL (70-105); LIPASE 13 U/L (8-78); POTASSIUM 4.1 MMOL/L (3.6-5.0); SODIUM 137 MMOL/L (135-145); TOTAL PROTEIN 7.9 GM/DL (6.4-8.2)
[2019-01-13] MEDS ORDERED: ACHD5005 PO (20:41)
[2019-01-13] MEDS ORDERED: RX-HYDROCODONE/APAP 5/325 MG #4 TAB PK PO PRN (20:45)
[2019-01-13 20:59] VITALS: BP 105/66
== END 2019-01-13 20:59 | disposition home or self-care (01) ==
LOC: EDUNIT# 17:36 → ER 17:38
DX: R10.84 Generalized abdominal pain (principal); G89.29 Other chronic pain; J43.9 Emphysema, unspecified; I25.2 Old myocardial infarction; I48.91 Unspecified atrial fibrillation; K21.9 Gastro-esophageal reflux disease without esophagitis; K58.9 Irritable bowel syndrome, unspecified; I10 Essential (primary) hypertension; G40.909 Epilepsy, unspecified, not intractable, without status epilepticus; F98.8 Other specified behavioral and emotional disorders with onset usually occurring in childhood and adolescence; F90.9 Attention-deficit hyperactivity disorder, unspecified type; F41.9 Anxiety disorder, unspecified; F31.9 Bipolar disorder, unspecified; F60.9 Personality disorder, unspecified; F43.10 Post-traumatic stress disorder, unspecified; F12.10 Cannabis abuse, uncomplicated; F17.210 Nicotine dependence, cigarettes, uncomplicated; Z88.0 Allergy status to penicillin; Z87.448 Personal history of other diseases of urinary system; Z88.2 Allergy status to sulfonamides; Z87.19 Personal history of other diseases of the digestive system; Z80.49 Family history of malignant neoplasm of other genital organs; Z90.49 Acquired absence of other specified parts of digestive tract; Z86.14 Personal history of Methicillin resistant Staphylococcus aureus infection; Z90.710 Acquired absence of both cervix and uterus; Z98.51 Tubal ligation status; Z95.2 Presence of prosthetic heart valve; Z95.0 Presence of cardiac pacemaker; Z91.041 Radiographic dye allergy status; Z79.01 Long term (current) use of anticoagulants
CPT/HCPCS: 36415; 80053; 80306; 81000; 82150; 83690; 84703; 85025; 87077; 87088

== ENCOUNTER 2019-01-18 17:16 | Emergency (ER) | payer MEDICAID ==
[~2019-01-18] VITALS: Ht 160 cm; Wt 64.0 kg
--- NOTE | 2019-01-18 17:33 | NUR ---
PT TO ED 8 W/ FRIEND. PT REPORTS SYMPTOMS ONSET X3 WKS. REPORTS HAS BEEN SEEN BY "A BUNCH OF DOCS" FOR COMPLAINTS BUT DENIES IMPROVEMENT. PT ALSO DENIES FOLLOWING THROUGH W/ RECOMMENDED TREATMENTS.
[2019-01-18 17:43] LABS: BILIRUBIN,URINE NEGATIVE (NEGATIVE); CLARITY,URINE SLIGHTLY CLOUDY; COLOR,URINE YELLOW; GLUCOSE, URINE (UA) NEGATIVE (NEGATIVE); KETONES,URINE NEGATIVE (NEGATIVE); LEUKOCYTE ESTERASE ,URINE 1+ (NEGATIVE); NITRITE,URINE NEGATIVE (NEGATIVE); PH,URINE 6.5 (5-9); PROTEIN,URINE 2+ (NEGATIVE); UROBILINOGEN,URINE NORMAL (NORMAL)
[2019-01-18 17:57] LABS: BACTERIA,URINE MODERATE /HPF; WBC,URINE 0-2 /HPF
[2019-01-18 17:58] LABS: HYALINE CASTS, URINE 0-2 /LPF
[2019-01-18] MEDS ORDERED: RX-NITROFURANTOIN 100 MG (MACROBID) CAP PPK#2 PO STA (18:05)
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
[2019-01-18] MEDS ORDERED: ANTACID SUSP 30 ML UDC (MYLANTA) PO ONE (18:15)
[2019-01-18] MEDS ORDERED: LIDOCAINE 2% VISCOUS 15 ML UDC PO ONE (18:15)
[2019-01-18 19:47] VITALS: BP 112/64
== END 2019-01-18 19:49 | disposition home or self-care (01) ==
LOC: EDUNIT# 17:16 → ER 17:17
DX: N39.0 Urinary tract infection, site not specified (principal); F12.20 Cannabis dependence, uncomplicated; R14.0 Abdominal distension (gaseous); K21.9 Gastro-esophageal reflux disease without esophagitis; J43.9 Emphysema, unspecified; I48.91 Unspecified atrial fibrillation; I10 Essential (primary) hypertension; I25.2 Old myocardial infarction; K58.9 Irritable bowel syndrome, unspecified; G40.909 Epilepsy, unspecified, not intractable, without status epilepticus; F90.9 Attention-deficit hyperactivity disorder, unspecified type; F41.9 Anxiety disorder, unspecified; F98.8 Other specified behavioral and emotional disorders with onset usually occurring in childhood and adolescence; F43.10 Post-traumatic stress disorder, unspecified; F31.9 Bipolar disorder, unspecified; Z77.22 Contact with and (suspected) exposure to environmental tobacco smoke (acute) (chronic); Z87.19 Personal history of other diseases of the digestive system; Z90.81 Acquired absence of spleen; Z88.0 Allergy status to penicillin; Z91.14 Patient's other noncompliance with medication regimen; Z91.5 Personal history of self-harm; Z86.14 Personal history of Methicillin resistant Staphylococcus aureus infection; Z80.49 Family history of malignant neoplasm of other genital organs; Z87.448 Personal history of other diseases of urinary system; Z88.2 Allergy status to sulfonamides; Z91.041 Radiographic dye allergy status; Z88.8 Allergy status to other drugs, medicaments and biological substances; Z79.01 Long term (current) use of anticoagulants; Z90.49 Acquired absence of other specified parts of digestive tract; Z98.890 Other specified postprocedural states; Z90.710 Acquired absence of both cervix and uterus; Z98.51 Tubal ligation status; Z95.0 Presence of cardiac pacemaker; Z95.2 Presence of prosthetic heart valve
CPT/HCPCS: 81000; 87088; 99283

== ENCOUNTER 2019-03-05 11:39 | Emergency (ER) | payer MEDICAID ==
[~2019-03-05 11:39] MED LIST changes: -RIVA20TA PO; +RIVA20TA2 PO
--- NOTE | 2019-03-05 12:03 | NUR ---
REGISTRATION REPORTS PT HAS LEFT.
[2019-03-05] MEDS ORDERED: ACHD5005 PO (18:08)
== END 2019-03-05 12:03 | disposition left against medical advice (07) ==
LOC: EDUNIT# 11:39 → ER 11:40
DX: R10.9 Unspecified abdominal pain (principal)

== ENCOUNTER 2019-03-05 15:12 | Emergency (ER) | payer MEDICAID ==
[~2019-03-05] VITALS: Ht 160 cm; Wt 56.7 kg
--- NOTE | 2019-03-05 15:23 | NUR ---
AMB TO ROOM NO CHANGE FROM TRIAGE. WAS HERE EARLIER AND LEFT TO GO EAT REPORTS SHE ATE QUESO AND NACHOS.
--- NOTE | 2019-03-05 16:37 | NUR ---
TO SONO PER W/C
[2019-03-05 16:42] LABS: BILIRUBIN,URINE NEGATIVE (NEGATIVE); CLARITY,URINE SLIGHTLY CLOUDY; COLOR,URINE YELLOW; GLUCOSE, URINE (UA) NEGATIVE (NEGATIVE); KETONES,URINE NEGATIVE (NEGATIVE); LEUKOCYTE ESTERASE ,URINE NEGATIVE (NEGATIVE); NITRITE,URINE NEGATIVE (NEGATIVE); PH,URINE 6.5 (5-9); PROTEIN,URINE NEGATIVE (NEGATIVE); UROBILINOGEN,URINE NORMAL (NORMAL)
[2019-03-05] MEDS ORDERED: HYDROcodone/APAP 5 MG/325 MG (LORTAB) TAB PO ONE (16:45)
[2019-03-05 16:52] LABS: BACTERIA,URINE TRACE /HPF; WBC,URINE 0-2 /HPF
[2019-03-05 16:55] LABS: AMPHETAMINE SCREEN, URINE NEGATIVE (NEGATIVE); BARBITURATE SCREEN URINE NEGATIVE (NEGATIVE); BENZODIAZEPINES SCREEN URINE NEGATIVE (NEGATIVE); CANNABINOID SCREEN, URINE POSITIVE (NEGATIVE); COCAINE SCREEN URINE NEGATIVE (NEGATIVE); METHADONE STAT NEGATIVE (NEGATIVE); METHAMPHETAMINE SCREEN URINE S NEGATIVE (NEGATIVE); OPIATE SCREEN URINE NEGATIVE (NEGATIVE); OXYCODONE STAT NEGATIVE (NEGATIVE); PROPOXYPHENE STAT NEGATIVE (NEGATIVE); TRICYCLIC ANTIDEPRESSANTS SCRE POSITIVE (NEGATIVE)
--- NOTE | 2019-03-05 17:27 | Diagnostic Imaging Report ---
PROCEDURE: US abdomen complete. TECHNIQUE: Multiple real-time grayscale images were obtained over the abdomen in various projections. INDICATION: Abdominal pain and swelling. FINDINGS: No focal hepatic abnormality is identified. Gallbladder and spleen are surgically absent. There is no significant biliary ductal dilatation. The pancreas is largely obscured by overlying bowel. Kidneys are unremarkable without evidence of hydronephrosis. There is free fluid most pronounced in the right lower quadrant of the abdomen. No abdominal aortic or inferior vena caval abnormality is appreciated. IMPRESSION: No definite acute abnormality is seen apart from moderate amount of ascites. Dictated by: Dictated on workstation # [id number]
[2019-03-05 17:33] LABS: BASOPHILS % (AUTO) 0 % (0-10); EOSINOPHILS # (AUTO) 0.5 10^3/uL (0.0-0.3); EOSINOPHILS % (AUTO) 4 % (0-10); HEMATOCRIT 31 % (35-52); HEMOGLOBIN 10.2 G/DL (11.5-16.0); LYMPHOCYTES # (AUTO) 3.2 X 10^3 (1.0-4.0); LYMPHOCYTES % (AUTO) 26 % (12-44); MEAN CORPUSCULAR HEMOGLOBIN 23 PG (25-34); MEAN CORPUSCULAR HGB CONC 33 G/DL (32-36); MEAN CORPUSCULAR VOLUME 70 FL (80-99); MEAN PLATELET VOLUME 10.3 FL (7.4-10.4); MONOCYTES # (AUTO) 1.4 X 10^3 (0.0-1.0); MONOCYTES % (AUTO) 11 % (0-12); NEUTROPHILS % (AUTO) 58 % (42-75); PLATELET COUNT 492 10^3/uL (130-400); RED CELL DISTRIBUTION WIDTH 21.5 % (10.0-14.5); WHITE BLOOD COUNT 12.2 10^3/uL (4.3-11.0)
[2019-03-05 17:49] LABS: INR 1.7 (0.8-1.4); PROTHROMBIN TIME PATIENT 21.1 SEC (12.2-14.7)
[2019-03-05 17:54] LABS: ALANINE AMINOTRANSFERASE 16 U/L (0-55); ALBUMIN 4.1 GM/DL (3.2-4.5); ALKALINE PHOSPHATASE 192 U/L (40-136); BILIRUBIN,TOTAL 0.6 MG/DL (0.1-1.0); BUN/CREATININE RATIO 8; CALCIUM 9.2 MG/DL (8.5-10.1); CARBON DIOXIDE 22 MMOL/L (21-32); CHLORIDE 103 MMOL/L (98-107); CREATININE SERUM 0.74 MG/DL (0.60-1.30); GFR ESTIMATED > 60; GLUCOSE 85 MG/DL (70-105); SODIUM 140 MMOL/L (135-145); TOTAL PROTEIN 8.2 GM/DL (6.4-8.2)
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
[2019-03-05] MEDS ORDERED: ACHD5005 PO (18:08)
[2019-03-05 18:16] VITALS: BP 113/73
== END 2019-03-05 18:15 | disposition home or self-care (01) ==
LOC: EDUNIT# 15:12 → ER 15:14
DX: R18.8 Other ascites (principal); R10.84 Generalized abdominal pain; J43.9 Emphysema, unspecified; I25.2 Old myocardial infarction; I48.91 Unspecified atrial fibrillation; I10 Essential (primary) hypertension; K21.9 Gastro-esophageal reflux disease without esophagitis; K58.9 Irritable bowel syndrome, unspecified; G40.909 Epilepsy, unspecified, not intractable, without status epilepticus; F12.10 Cannabis abuse, uncomplicated; M79.7 Fibromyalgia; F43.10 Post-traumatic stress disorder, unspecified; F31.9 Bipolar disorder, unspecified; F60.9 Personality disorder, unspecified; F41.9 Anxiety disorder, unspecified; F90.9 Attention-deficit hyperactivity disorder, unspecified type; F19.10 Other psychoactive substance abuse, uncomplicated; Z90.49 Acquired absence of other specified parts of digestive tract; Z90.81 Acquired absence of spleen; Z91.5 Personal history of self-harm; Z95.0 Presence of cardiac pacemaker; Z98.51 Tubal ligation status; Z95.2 Presence of prosthetic heart valve; Z90.710 Acquired absence of both cervix and uterus; Z77.22 Contact with and (suspected) exposure to environmental tobacco smoke (acute) (chronic); Z88.0 Allergy status to penicillin; Z80.49 Family history of malignant neoplasm of other genital organs; Z88.2 Allergy status to sulfonamides; Z91.041 Radiographic dye allergy status; Z79.01 Long term (current) use of anticoagulants
CPT/HCPCS: 36415; 76700; 80053; 80306; 81000; 85025; 85610; 85730

== ENCOUNTER 2019-03-07 10:07 | Outpatient (CLI) | payer MEDICAID ==
[~2019-03-07] VITALS: Ht 160 cm; Wt 56.7 kg
[2019-03-07 10:15] VITALS: BP 122/73
[2019-03-07 11:30] VITALS: BP 122/73
--- NOTE | 2019-03-07 13:09 | Diagnostic Imaging Report ---
INDICATION: Ascites. FINDINGS: Sonographic guidance was provided for Dr. Teague for purpose of paracentesis. Images of the left lower quadrant demonstrate a moderate amount of ascites. IMPRESSION: Sonographic guidance for Dr. Teague for paracentesis. Dictated by: Dictated on workstation # [id number]
[2019-03-07 14:16] LABS: GLUCOSE,BODY FLUID 99 MG/DL; TOTAL PROTEIN,BODY FLUID 4.6 G/DL
[2019-03-07 14:30] LABS: BODY FLUID SOURCE PERITON
[2019-03-07 14:31] LABS: BODY FLUID APPEARENCE SLT CLDY; BODY FLUID COLOR YELLOW
[2019-03-07 14:32] LABS: BODY FLUID RBC COUNT 1950 /uL; BODY FLUID WBC TOTAL COUNT 150 /uL
[2019-03-07 15:07] LABS: BF OTHER CELLS 16 %; LYMPHOCYTES,BODY FLUID 75 %
--- NOTE | 2019-03-08 00:04 | OPERATIVE REPORT ---
DATE OF SERVICE: 03/07/2019 PREOPERATIVE DIAGNOSIS: Symptomatic ascites. POSTOPERATIVE DIAGNOSIS: Symptomatic ascites. PROCEDURE: Paracentesis ultrasound-guided. SURGEON: Cherelle Teague DO. ANESTHESIA: 1% lidocaine 3 mL. ESTIMATED BLOOD LOSS: None. COMPLICATIONS: None. INDICATIONS: The patient is a 38-year-old female with symptomatic ascites. She understands risks and benefits of having paracentesis performed and wishes to proceed. Consent was signed on the chart. DESCRIPTION OF PROCEDURE: The patient was prepped and draped in sterile fashion. Ultrasound was used to isolate a large pocket of fluid for adequate window for paracentesis to be performed. Local anesthetic was infiltrated in the left lower quadrant, a total of 3 mL. The [id number] needle catheter was inserted through a stab incision made by 11 blade scalpel. One straw colored fluid was returned. The catheter was then advanced. A total of 2385 mL of fluid was removed from the abdomen. The catheter was then removed and sterile bandage was applied. The catheter was inserted under guidance of the ultrasound. The patient tolerated the procedure well without any complications. She has followup arranged. Job ID: [id number] DocumentID: [id number] Dictated Date: 03/07/2019 15:57:16 Master Glazier Date: 03/08/2019 00:03:51 Dictated By: CHERELLE TEAGUE DO
== END 2019-03-07 11:30 | disposition home or self-care (01) ==
LOC: RAD 10:07
PROVIDERS: ATTEND Surgery
DX: R18.8 Other ascites (principal)
CPT/HCPCS: 49082; 76942; 82945; 84157; 87070; 87205; 89051

== ENCOUNTER 2019-03-09 11:28 | Emergency (ER) | payer MEDICAID ==
[~2019-03-09] VITALS: Ht 160 cm; Wt 54.4 kg
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
[2019-03-09 11:54] LABS: BASOPHILS % (AUTO) 0 % (0-10); EOSINOPHILS # (AUTO) 0.3 10^3/uL (0.0-0.3); EOSINOPHILS % (AUTO) 3 % (0-10); HEMATOCRIT 28 % (35-52); HEMOGLOBIN 9.6 G/DL (11.5-16.0); LYMPHOCYTES # (AUTO) 2.7 X 10^3 (1.0-4.0); LYMPHOCYTES % (AUTO) 23 % (12-44); MEAN CORPUSCULAR HEMOGLOBIN 23 PG (25-34); MEAN CORPUSCULAR HGB CONC 34 G/DL (32-36); MEAN CORPUSCULAR VOLUME 68 FL (80-99); MONOCYTES # (AUTO) 1.1 X 10^3 (0.0-1.0); MONOCYTES % (AUTO) 10 % (0-12); NEUTROPHILS # (AUTO) 7.3 X 10^3 (1.8-7.8); NEUTROPHILS % (AUTO) 64 % (42-75); PLATELET COUNT 500 10^3/uL (130-400); RED CELL DISTRIBUTION WIDTH 22.2 % (10.0-14.5); WHITE BLOOD COUNT 11.5 10^3/uL (4.3-11.0)
[2019-03-09 11:59] LABS: BILIRUBIN,URINE NEGATIVE (NEGATIVE); CLARITY,URINE SLIGHTLY CLOUDY; COLOR,URINE YELLOW; GLUCOSE, URINE (UA) NEGATIVE (NEGATIVE); KETONES,URINE NEGATIVE (NEGATIVE); LEUKOCYTE ESTERASE ,URINE NEGATIVE (NEGATIVE); NITRITE,URINE NEGATIVE (NEGATIVE); PH,URINE 7 (5-9); PROTEIN,URINE NEGATIVE (NEGATIVE); UROBILINOGEN,URINE NORMAL (NORMAL)
[2019-03-09 12:03] LABS: INR 2.2 (0.8-1.4); PROTHROMBIN TIME PATIENT 25.3 SEC (12.2-14.7)
[2019-03-09 12:11] LABS: ALANINE AMINOTRANSFERASE 14 U/L (0-55); ALBUMIN 3.7 GM/DL (3.2-4.5); ALKALINE PHOSPHATASE 179 U/L (40-136); BILIRUBIN,TOTAL 0.5 MG/DL (0.1-1.0); BUN/CREATININE RATIO 8; CALCIUM 8.7 MG/DL (8.5-10.1); CARBON DIOXIDE 23 MMOL/L (21-32); CHLORIDE 103 MMOL/L (98-107); CREATININE SERUM 0.74 MG/DL (0.60-1.30); GFR ESTIMATED > 60; GLUCOSE 113 MG/DL (70-105); LIPASE 8 U/L (8-78); POTASSIUM 3.7 MMOL/L (3.6-5.0); SODIUM 138 MMOL/L (135-145); TOTAL PROTEIN 7.3 GM/DL (6.4-8.2)
[2019-03-09 12:19] LABS: AMORPHOUS SEDIMENT,UR RARE AMOR PHOSPHATE /LPF; BACTERIA,URINE TRACE /HPF; WBC,URINE RARE /HPF
[2019-03-09 12:23] LABS: AMPHETAMINE SCREEN, URINE NEGATIVE (NEGATIVE); BARBITURATE SCREEN URINE NEGATIVE (NEGATIVE); BENZODIAZEPINES SCREEN URINE NEGATIVE (NEGATIVE); CANNABINOID SCREEN, URINE POSITIVE (NEGATIVE); COCAINE SCREEN URINE NEGATIVE (NEGATIVE); METHADONE STAT NEGATIVE (NEGATIVE); METHAMPHETAMINE SCREEN URINE S NEGATIVE (NEGATIVE); OPIATE SCREEN URINE POSITIVE (NEGATIVE); OXYCODONE STAT NEGATIVE (NEGATIVE); PROPOXYPHENE STAT NEGATIVE (NEGATIVE); TRICYCLIC ANTIDEPRESSANTS SCRE POSITIVE (NEGATIVE)
[2019-03-09] MEDS ORDERED: HYDR-4226 PO (12:29)
--- NOTE | 2019-03-09 12:38 | Diagnostic Imaging Report ---
INDICATION: Post recent paracentesis. Now with abdominal pain, increasing over the past few hours. TECHNIQUE: Single-view chest, 12:06 p.m. CORRELATION STUDY: 12/22/2018. FINDINGS: Post-sternotomy changes. Heart size is enlarged. Vasculature is overall stable. Left-sided pacemaker appears unchanged. Lung osborne are fairly well inflated and overall generally clear. No definitive infiltrate. IMPRESSION: 1. Cardiac enlargement without evidence for overt failure. Given the appearance, this does raise concern for potential cardiomyopathy versus pericardial effusion. No evidence of overt failure. Dictated by: Dictated on workstation # [id number]
[2019-03-09 12:39] VITALS: BP 112/76
== END 2019-03-09 12:40 | disposition home or self-care (01) ==
LOC: EDUNIT# 11:28 → ER 11:29
DX: R18.8 Other ascites (principal); J43.9 Emphysema, unspecified; I48.91 Unspecified atrial fibrillation; I25.2 Old myocardial infarction; I10 Essential (primary) hypertension; G40.909 Epilepsy, unspecified, not intractable, without status epilepticus; K21.9 Gastro-esophageal reflux disease without esophagitis; M79.7 Fibromyalgia; F90.9 Attention-deficit hyperactivity disorder, unspecified type; F41.9 Anxiety disorder, unspecified; F43.10 Post-traumatic stress disorder, unspecified; F31.9 Bipolar disorder, unspecified; F60.0 Paranoid personality disorder; F32.9 Major depressive disorder, single episode, unspecified; K58.9 Irritable bowel syndrome, unspecified; F12.10 Cannabis abuse, uncomplicated; Z87.891 Personal history of nicotine dependence; Z90.81 Acquired absence of spleen; Z86.14 Personal history of Methicillin resistant Staphylococcus aureus infection; Z80.49 Family history of malignant neoplasm of other genital organs; Z91.5 Personal history of self-harm; Z90.49 Acquired absence of other specified parts of digestive tract; Z90.710 Acquired absence of both cervix and uterus; Z95.0 Presence of cardiac pacemaker; Z95.2 Presence of prosthetic heart valve; Z77.22 Contact with and (suspected) exposure to environmental tobacco smoke (acute) (chronic); Z88.0 Allergy status to penicillin; Z88.2 Allergy status to sulfonamides; Z91.041 Radiographic dye allergy status; Z79.01 Long term (current) use of anticoagulants
CPT/HCPCS: 36415; 71045; 80053; 80306; 81000; 83690; 83880; 85025; 85610; 85730

== ENCOUNTER 2019-03-21 12:54 | Outpatient (CLI) | payer MEDICAID ==
[~2019-03-21] VITALS: Ht 160 cm; Wt 54.4 kg
== END 2019-03-21 13:21 | disposition home or self-care (01) ==
LOC: PREOP 12:54
PROVIDERS: ATTEND Surgery
DX: Z01.818 Encounter for other preprocedural examination (principal)

== ENCOUNTER 2019-03-24 10:19 | Day surgery (SDC) | payer MEDICAID ==
[2019-03-24] VITALS (10 sets, daily range): BP systolic 99–118; BP diastolic 70–79
[~2019-03-24] VITALS: Ht 160 cm; Wt 54.4 kg
[2019-03-24] MEDS ORDERED: CLINDAMYCIN 600 MG/50 ML IVPB 50 ML IV ONE ×2 (10:48→11:30)
[2019-03-24 11:11] LABS: AMPHETAMINE SCREEN, URINE NEGATIVE (NEGATIVE); BARBITURATE SCREEN URINE NEGATIVE (NEGATIVE); BENZODIAZEPINES SCREEN URINE NEGATIVE (NEGATIVE); CANNABINOID SCREEN, URINE POSITIVE (NEGATIVE); COCAINE SCREEN URINE NEGATIVE (NEGATIVE); METHADONE STAT NEGATIVE (NEGATIVE); METHAMPHETAMINE SCREEN URINE S NEGATIVE (NEGATIVE); OPIATE SCREEN URINE POSITIVE (NEGATIVE); OXYCODONE STAT NEGATIVE (NEGATIVE); PROPOXYPHENE STAT NEGATIVE (NEGATIVE); TRICYCLIC ANTIDEPRESSANTS SCRE POSITIVE (NEGATIVE)
[2019-03-24] MEDS ORDERED: LACTATED RINGERS 1,000 ML IV PRN (11:17)
[2019-03-24] MEDS ORDERED: CATHETER FLUSH 10 ML SYR IV PRN (11:30)
--- NOTE | 2019-03-24 12:06 | Progress Note-Pre Operative ---
Pre-Operative Progress Note H&P Reviewed The H&P was reviewed, patient examined and no changes noted. Date Seen by Provider: Mar 24, 2019 Time Seen by Provider: 12:00 Date H&P Reviewed: Mar 24, 2019 Time H&P Reviewed: 12:00 Pre-Operative Diagnosis: recurrent symptomatic ascites CHERELLE GREWAL DO Mar 24, 2019 12:06
[2019-03-24] MEDS ORDERED: MIDAZOLAM 2 MG/2 ML (VERSED) VIAL ONE (12:09)
[2019-03-24] MEDS ORDERED: proPOfol 200 MG/20 ML (DIPRIVAN) VIAL IV ONE (12:51)
[2019-03-24] MEDS ORDERED: fentaNYL INJECTION 100 MCG/2 ML AMP ONE (12:54)
[2019-03-24] MEDS ORDERED: fentaNYL INJECTION 100 MCG/2 ML AMP IVP ONE (13:30)
--- NOTE | 2019-03-24 13:30 | Diagnostic Imaging Report ---
Indication: Ascites. Sonographic guidance was provided for Dr. Teague for paracentesis. Image of left lower quadrant demonstrates a large amount of peritoneal fluid. Impression: Guidance for Dr. Teague for PleurX catheter placement in the left lower quadrant. Dictated by: Dictated on workstation # [id number]
--- NOTE | 2019-03-24 14:12 | Discharge Inst-Simple/Standard ---
Discharge Inst-Standard Patient Instructions/Follow Up Plan of Care/Instructions/FU: f/u Zahida 2 weeks. Drain 1 bottle every other day from abdomen as instructed. Keep log of how much is being drained. If less than 500 mL is drained wait an extra 2 days before attempting to drain again. Activity as Tolerated: No Discharge Diet: Regular Diet CHERELLE GREWAL DO Mar 24, 2019 14:12
--- NOTE | 2019-03-24 14:13 | Progress Note-Post Operative ---
Post-Operative Progess Note Surgeon (s)/[employer] Consultant (s) Surgeon CHERELLE GREWAL DO [employer] Consultant: na Pre-Operative Diagnosis recurrent symptomatic ascites Post-Operative Diagnosis same Procedure & Operative Findings Date of Procedure 03/24/19 Procedure Performed/Findings pleur-x catheter placement u/s guided Anesthesia Type mac c local Estimated Blood Loss Estimated blood loss (mL): min Specimens/Packing Specimens Removed na CHERELLE GREWAL DO Mar 24, 2019 14:13
--- NOTE | 2019-03-24 14:36 | Anesthesia-General Post-Op ---
MAC Patient Condition Mental Status/LOC: Same as Preop Cardiovascular: Satisfactory Nausea/Vomiting: Absent Respiratory: Satisfactory Pain: Controlled Complications: Absent Post Op Complications Complications None Follow Up Care/Instructions Patient Instructions None needed. Anesthesiology Discharge Order Discharge Order Patient is doing well, no complaints, stable vital signs, no apparent adverse anesthesia problems. No complications reported per nursing. HAILE PERRY CRNA Mar 24, 2019 14:36
--- NOTE | 2019-03-25 06:42 | OPERATIVE REPORT ---
DATE OF SERVICE: 03/24/2019 PREOPERATIVE DIAGNOSIS: Symptomatic recurrent ascites. POSTOPERATIVE DIAGNOSIS: Symptomatic recurrent ascites. PROCEDURE: Abdominal PleurX catheter placement ultrasound-guided. SURGEON: Cherelle Teague DO. ANESTHESIA: MAC with local. ESTIMATED BLOOD LOSS: Minimal. COMPLICATIONS: None. INDICATIONS: The patient is a 38-year-old female with recurrent symptomatic ascites with short-term need for drainage. The patient was discussed risks and benefits of procedure and wished to proceed with procedure. Consent was signed in the chart. The patient was taken to the operating suite. She was prepped and draped in sterile fashion. Surgical pause was performed. The ultrasound was used to visualize the largest pocket for placement. Local anesthetic was infiltrated in the area. An 11-blade scalpel was used to make a small skin incision and an Angiocath needle was inserted through the abdominal wall until straw colored fluid was returned. The catheter was then inserted. The needle was removed. The guidewire was inserted through the catheter and the catheter was then removed. Another incision was made just superior to this after local anesthetic was infiltrated for tracking purposes and tunneling of the catheter. Catheter was then tunneled from the superior incision to the lower where the wire was. Serial dilations were made over the wire dilator sheath was then placed in the abdomen. The dilator was then removed. The catheter was placed through the sheath. The sheath was then removed. The skin was then closed over this area with a 4-0 absorbable suture. The catheter was then secured with a 3-0 silk suture. A total of 2200 mL of straw colored fluid was withdrawn. The area was then washed and dried and the catheter was secured. Sterile bandages were applied. The patient tolerated procedure well without any complications. She was taken to recovery room in stable condition. Job ID: [id number] DocumentID: [id number] Dictated Date: 03/24/2019 20:21:04 Application Support Manager Date: 03/25/2019 06:42:13 Dictated By: CHERELLE TEAGUE DO
== END 2019-03-24 14:20 | disposition home or self-care (01) ==
LOC: SDC 10:19
PROVIDERS: ATTEND Surgery
DX: R18.8 Other ascites (principal); I25.10 Atherosclerotic heart disease of native coronary artery without angina pectoris; I11.0 Hypertensive heart disease with heart failure; I50.9 Heart failure, unspecified; J44.9 Chronic obstructive pulmonary disease, unspecified; G47.33 Obstructive sleep apnea (adult) (pediatric); R56.9 Unspecified convulsions; K21.9 Gastro-esophageal reflux disease without esophagitis; F17.210 Nicotine dependence, cigarettes, uncomplicated; Z79.01 Long term (current) use of anticoagulants; Z79.899 Other long term (current) drug therapy
CPT/HCPCS: 76942; 80306; 87081

== ENCOUNTER 2019-03-26 14:27 | Emergency (ER) | payer MEDICAID ==
[~2019-03-26] VITALS: Ht 160 cm; Wt 68.0 kg
[2019-03-26] MEDS ORDERED: ACHD5005 PO (15:07)
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
[2019-03-26 15:21] VITALS: BP 106/74
== END 2019-03-26 15:22 | disposition home or self-care (01) ==
LOC: EDUNIT# 14:27 → ER 14:28
DX: T81.89XA Other complications of procedures, not elsewhere classified, initial encounter (principal); J43.9 Emphysema, unspecified; I48.91 Unspecified atrial fibrillation; I25.2 Old myocardial infarction; Q24.9 Congenital malformation of heart, unspecified; G40.909 Epilepsy, unspecified, not intractable, without status epilepticus; K21.9 Gastro-esophageal reflux disease without esophagitis; F90.9 Attention-deficit hyperactivity disorder, unspecified type; F41.9 Anxiety disorder, unspecified; F43.10 Post-traumatic stress disorder, unspecified; F31.9 Bipolar disorder, unspecified; F60.9 Personality disorder, unspecified; K58.9 Irritable bowel syndrome, unspecified; F17.210 Nicotine dependence, cigarettes, uncomplicated; Z90.49 Acquired absence of other specified parts of digestive tract; Z90.710 Acquired absence of both cervix and uterus; Z91.5 Personal history of self-harm; Z86.14 Personal history of Methicillin resistant Staphylococcus aureus infection; Z90.81 Acquired absence of spleen; Z87.19 Personal history of other diseases of the digestive system; Z98.890 Other specified postprocedural states; Z80.49 Family history of malignant neoplasm of other genital organs; Z95.0 Presence of cardiac pacemaker; Z98.51 Tubal ligation status; Z95.2 Presence of prosthetic heart valve; Z88.2 Allergy status to sulfonamides; Z88.0 Allergy status to penicillin; Z91.041 Radiographic dye allergy status; Z88.8 Allergy status to other drugs, medicaments and biological substances; Z79.01 Long term (current) use of anticoagulants
CPT/HCPCS: 99283

== ENCOUNTER 2019-03-31 08:34 | Emergency (ER) | payer MEDICAID ==
[~2019-03-31] VITALS: Ht 160 cm; Wt 68.0 kg
--- NOTE | 2019-03-31 09:28 | NUR ---
pt self ambulates to restroom
[2019-03-31] MEDS ORDERED: HYDROcodone/APAP 5 MG/325 MG (LORTAB) TAB PO ONE (10:30)
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
[2019-03-31 10:38] VITALS: BP 100/44
== END 2019-03-31 10:38 | disposition home or self-care (01) ==
LOC: EDUNIT# 08:34 → ER 08:35
DX: R18.8 Other ascites (principal); R10.32 Left lower quadrant pain; J43.9 Emphysema, unspecified; I25.2 Old myocardial infarction; I48.91 Unspecified atrial fibrillation; I10 Essential (primary) hypertension; G40.909 Epilepsy, unspecified, not intractable, without status epilepticus; K21.9 Gastro-esophageal reflux disease without esophagitis; K58.9 Irritable bowel syndrome, unspecified; M79.7 Fibromyalgia; F90.9 Attention-deficit hyperactivity disorder, unspecified type; F41.9 Anxiety disorder, unspecified; F31.9 Bipolar disorder, unspecified; F60.9 Personality disorder, unspecified; F43.10 Post-traumatic stress disorder, unspecified; Z91.5 Personal history of self-harm; Z90.81 Acquired absence of spleen; Z87.19 Personal history of other diseases of the digestive system; Z87.448 Personal history of other diseases of urinary system; Z86.14 Personal history of Methicillin resistant Staphylococcus aureus infection; Z80.49 Family history of malignant neoplasm of other genital organs; Z95.2 Presence of prosthetic heart valve; Z90.49 Acquired absence of other specified parts of digestive tract; Z98.51 Tubal ligation status; Z95.0 Presence of cardiac pacemaker; Z90.710 Acquired absence of both cervix and uterus; Z88.2 Allergy status to sulfonamides; Z88.0 Allergy status to penicillin; Z91.041 Radiographic dye allergy status; Z79.01 Long term (current) use of anticoagulants
CPT/HCPCS: 99283

== ENCOUNTER 2019-04-02 11:40 | Outpatient (RCR) | payer MEDICAID ==
[2019-03-31 12:04] VITALS: BP 95/59
[~2019-04-02] VITALS: Ht 160 cm; Wt 68.0 kg
[~2019-04-02 11:40] MED LIST changes: +RANI-613 PO; -RANI150T46 PO
[2019-04-02 12:00] VITALS: BP 120/82
[2019-04-26] MEDS ORDERED: FURO20TA4 (19:23)
[2019-04-26] MEDS ORDERED: ESCI20TA45 (19:23)
[2019-04-26] MEDS ORDERED: HYDR-3781 (19:23)
[2019-04-26] MEDS ORDERED: BUSP10TA95 (19:23)
[2019-04-26] MEDS ORDERED: CEPH-507 PO (20:42)
== END 2019-06-29 | disposition home or self-care (01) ==
LOC: SDC 11:40
PROVIDERS: ATTEND Surgery
DX: Z48.01 Encounter for change or removal of surgical wound dressing (principal)
CPT/HCPCS: 99212

== ENCOUNTER 2019-04-21 01:15 | Emergency (ER) | payer MEDICAID ==
[~2019-04-21] VITALS: Ht 160 cm; Wt 68.0 kg
[~2019-04-21 01:15] MED LIST changes: -RANI-613 PO; +RANI150T46 PO
[2019-04-21 01:20] VITALS: BP 127/84
[2019-04-21] MEDS ORDERED: FUROSEMIDE 40 MG/4 ML INJ (LASIX) IVP ONE (01:45)
[2019-04-21 01:50] LABS: BASOPHILS % (AUTO) 0 % (0-10); EOSINOPHILS # (AUTO) 0.4 10^3/uL (0.0-0.3); EOSINOPHILS % (AUTO) 3 % (0-10); HEMATOCRIT 28 % (35-52); HEMOGLOBIN 9.1 G/DL (11.5-16.0); LYMPHOCYTES # (AUTO) 3.4 X 10^3 (1.0-4.0); LYMPHOCYTES % (AUTO) 24 % (12-44); MEAN CORPUSCULAR HEMOGLOBIN 23 PG (25-34); MEAN CORPUSCULAR HGB CONC 33 G/DL (32-36); MEAN CORPUSCULAR VOLUME 71 FL (80-99); MEAN PLATELET VOLUME 8.9 FL (7.4-10.4); MONOCYTES # (AUTO) 1.5 X 10^3 (0.0-1.0); MONOCYTES % (AUTO) 10 % (0-12); NEUTROPHILS # (AUTO) 8.9 X 10^3 (1.8-7.8); NEUTROPHILS % (AUTO) 63 % (42-75); PLATELET COUNT 895 10^3/uL (130-400); RED CELL DISTRIBUTION WIDTH 18.9 % (10.0-14.5); WHITE BLOOD COUNT 14.2 10^3/uL (4.3-11.0)
[2019-04-21 01:58] LABS: INR 1.2 (0.8-1.4); PROTHROMBIN TIME PATIENT 15.9 SEC (12.2-14.7)
[2019-04-21 02:00] LABS: BILIRUBIN,URINE NEGATIVE (NEGATIVE); CLARITY,URINE CLEAR; COLOR,URINE YELLOW; GLUCOSE, URINE (UA) NEGATIVE (NEGATIVE); KETONES,URINE NEGATIVE (NEGATIVE); LEUKOCYTE ESTERASE ,URINE NEGATIVE (NEGATIVE); NITRITE,URINE NEGATIVE (NEGATIVE); PH,URINE 7 (5-9); PROTEIN,URINE NEGATIVE (NEGATIVE); UROBILINOGEN,URINE NORMAL (NORMAL)
[2019-04-21 02:08] LABS: ALANINE AMINOTRANSFERASE 13 U/L (0-55); ALBUMIN 3.3 GM/DL (3.2-4.5); ALKALINE PHOSPHATASE 160 U/L (40-136); AMYLASE 39 U/L (25-125); BILIRUBIN,TOTAL 0.3 MG/DL (0.1-1.0); BUN/CREATININE RATIO 7; CALCIUM 8.6 MG/DL (8.5-10.1); CARBON DIOXIDE 24 MMOL/L (21-32); CHLORIDE 106 MMOL/L (98-107); CREATININE SERUM 0.67 MG/DL (0.60-1.30); GFR ESTIMATED > 60; GLUCOSE 114 MG/DL (70-105); LIPASE 21 U/L (8-78); MAGNESIUM 1.9 MG/DL (1.8-2.4); POTASSIUM 2.9 MMOL/L (3.6-5.0); SODIUM 141 MMOL/L (135-145); TOTAL PROTEIN 7.1 GM/DL (6.4-8.2)
[2019-04-21 02:09] LABS: BACTERIA,URINE TRACE /HPF; WBC,URINE RARE /HPF
[2019-04-21 02:18] LABS: AMPHETAMINE SCREEN, URINE NEGATIVE (NEGATIVE); BARBITURATE SCREEN URINE NEGATIVE (NEGATIVE); BENZODIAZEPINES SCREEN URINE NEGATIVE (NEGATIVE); CANNABINOID SCREEN, URINE POSITIVE (NEGATIVE); COCAINE SCREEN URINE NEGATIVE (NEGATIVE); METHADONE STAT NEGATIVE (NEGATIVE); METHAMPHETAMINE SCREEN URINE S NEGATIVE (NEGATIVE); OPIATE SCREEN URINE POSITIVE (NEGATIVE); OXYCODONE STAT NEGATIVE (NEGATIVE); PROPOXYPHENE STAT NEGATIVE (NEGATIVE); TRICYCLIC ANTIDEPRESSANTS SCRE POSITIVE (NEGATIVE)
[2019-04-21] MEDS ORDERED: RIVAROXABAN 20 MG TABLET (XARELTO) PO ONE (02:30)
[2019-04-21] MEDS ORDERED: KCL 10 MEQ TAB (MICRO K) PO ONE (02:45)
[2019-04-21] MEDS ORDERED: KETOROLAC 30 MG/ML VIAL IVP ONE (02:45)
[2019-04-21] MEDS ORDERED: PANTOPRAZOLE 40 MG (PROTONIX) TAB PO ONE (02:45)
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
[2019-04-21] MEDS ORDERED: DIGOXIN 0.125 MG (LANOXIN) TAB PO ONE (03:00)
--- NOTE | 2019-04-21 04:25 | Diagnostic Imaging Report ---
Indication: Peripheral edema Portable chest 1:49 AM There is a dual-chamber pacemaker with IACD. Heart size and pulmonary vascularity are normal. Lungs are clear. There are no effusions or pneumothoraces. There are Tavares rods across the thoracolumbar spine. Impression: Postsurgical changes. No acute abnormality seen. Dictated by: Dictated on workstation # [id number]
== END 2019-04-21 03:08 | disposition left against medical advice (07) ==
LOC: EDUNIT# 01:15 → ER 01:17
DX: F15.10 Other stimulant abuse, uncomplicated (principal); F12.10 Cannabis abuse, uncomplicated; F17.210 Nicotine dependence, cigarettes, uncomplicated; E87.6 Hypokalemia; R18.8 Other ascites; R60.0 Localized edema; F10.20 Alcohol dependence, uncomplicated; I48.91 Unspecified atrial fibrillation; J43.9 Emphysema, unspecified; G40.909 Epilepsy, unspecified, not intractable, without status epilepticus; K21.9 Gastro-esophageal reflux disease without esophagitis; K58.9 Irritable bowel syndrome, unspecified; M79.7 Fibromyalgia; F41.9 Anxiety disorder, unspecified; F43.10 Post-traumatic stress disorder, unspecified; F31.9 Bipolar disorder, unspecified; F60.9 Personality disorder, unspecified; Z87.19 Personal history of other diseases of the digestive system; Z98.890 Other specified postprocedural states; Z95.2 Presence of prosthetic heart valve; Z95.0 Presence of cardiac pacemaker; Z88.8 Allergy status to other drugs, medicaments and biological substances; Z88.0 Allergy status to penicillin; Z88.2 Allergy status to sulfonamides; Z80.49 Family history of malignant neoplasm of other genital organs; Z88.1 Allergy status to other antibiotic agents; Z98.1 Arthrodesis status; Z90.49 Acquired absence of other specified parts of digestive tract; Z90.710 Acquired absence of both cervix and uterus; Z98.51 Tubal ligation status
CPT/HCPCS: 36415; 71046; 80053; 80162; 80306; 80320; 81000; 82150; 83605; 83690; 83735; 83880; 84484; 85025; 85610; 85730; 87040; 93005; 93041

== ENCOUNTER 2019-04-26 18:38 | Emergency (ER) | payer MEDICAID ==
[~2019-04-26] VITALS: Ht 160 cm; Wt 68.0 kg
--- NOTE | 2019-04-26 18:56 | NUR ---
pt not in waiting room when called.
[2019-04-26] MEDS ORDERED: ESCI20TA45 (19:23)
[2019-04-26] MEDS ORDERED: HYDR-3781 (19:23)
[2019-04-26] MEDS ORDERED: BUSP10TA95 (19:23)
[2019-04-26] MEDS ORDERED: FURO20TA4 (19:23)
[2019-04-26] MEDS ORDERED: fentaNYL INJECTION 100 MCG/2 ML AMP IVP ONE (19:30)
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
[2019-04-26 19:39] LABS: BASOPHILS % (AUTO) 0 % (0-10); EOSINOPHILS # (AUTO) 0.6 10^3/uL (0.0-0.3); EOSINOPHILS % (AUTO) 5 % (0-10); HEMATOCRIT 27 % (35-52); HEMOGLOBIN 8.8 G/DL (11.5-16.0); LYMPHOCYTES # (AUTO) 3.4 X 10^3 (1.0-4.0); LYMPHOCYTES % (AUTO) 27 % (12-44); MEAN CORPUSCULAR HEMOGLOBIN 24 PG (25-34); MEAN CORPUSCULAR HGB CONC 33 G/DL (32-36); MEAN CORPUSCULAR VOLUME 72 FL (80-99); MEAN PLATELET VOLUME 9.3 FL (7.4-10.4); MONOCYTES # (AUTO) 1.7 X 10^3 (0.0-1.0); MONOCYTES % (AUTO) 14 % (0-12); NEUTROPHILS # (AUTO) 6.8 X 10^3 (1.8-7.8); NEUTROPHILS % (AUTO) 54 % (42-75); PLATELET COUNT 661 10^3/uL (130-400); RED CELL DISTRIBUTION WIDTH 18.8 % (10.0-14.5); WHITE BLOOD COUNT 12.5 10^3/uL (4.3-11.0)
[2019-04-26 19:43] LABS: GLUCOSE, URINE (UA) NEGATIVE (NEGATIVE); KETONES,URINE NEGATIVE (NEGATIVE); PH,URINE 7 (5-9); PROTEIN,URINE NEGATIVE (NEGATIVE)
[2019-04-26 19:44] LABS: BACTERIA,URINE NEGATIVE /HPF; BILIRUBIN,URINE NEGATIVE (NEGATIVE); CLARITY,URINE CLEAR; COLOR,URINE YELLOW; LEUKOCYTE ESTERASE ,URINE 1+ (NEGATIVE); NITRITE,URINE NEGATIVE (NEGATIVE); RBC,URINE RARE /HPF; UROBILINOGEN,URINE NORMAL (NORMAL)
[2019-04-26 19:47] LABS: AMPHETAMINE SCREEN, URINE NEGATIVE (NEGATIVE); BENZODIAZEPINES SCREEN URINE NEGATIVE (NEGATIVE); COCAINE SCREEN URINE NEGATIVE (NEGATIVE); METHAMPHETAMINE SCREEN URINE S NEGATIVE (NEGATIVE)
[2019-04-26 19:48] LABS: BARBITURATE SCREEN URINE NEGATIVE (NEGATIVE); CANNABINOID SCREEN, URINE POSITIVE (NEGATIVE); METHADONE STAT NEGATIVE (NEGATIVE); OPIATE SCREEN URINE NEGATIVE (NEGATIVE); OXYCODONE STAT NEGATIVE (NEGATIVE); PROPOXYPHENE STAT NEGATIVE (NEGATIVE); TRICYCLIC ANTIDEPRESSANTS SCRE POSITIVE (NEGATIVE)
--- NOTE | 2019-04-26 19:50 | NUR ---
dr baxter here seeing pt.
[2019-04-26 19:55] LABS: ALANINE AMINOTRANSFERASE 11 U/L (0-55); ALBUMIN 3.2 GM/DL (3.2-4.5); ALKALINE PHOSPHATASE 164 U/L (40-136); BILIRUBIN,TOTAL 0.2 MG/DL (0.1-1.0); BUN/CREATININE RATIO 8; CALCIUM 8.3 MG/DL (8.5-10.1); CARBON DIOXIDE 26 MMOL/L (21-32); CHLORIDE 106 MMOL/L (98-107); CREATININE SERUM 0.64 MG/DL (0.60-1.30); GFR ESTIMATED > 60; GLUCOSE 88 MG/DL (70-105); POTASSIUM 3.9 MMOL/L (3.6-5.0); SODIUM 141 MMOL/L (135-145); TOTAL PROTEIN 7.1 GM/DL (6.4-8.2)
--- NOTE | 2019-04-26 20:20 | NUR ---
3400ml serous fluid drained from abdomen. erp in to check residual amount with ultrasound.
[2019-04-26] MEDS ORDERED: CEPH-507 PO (20:42)
[2019-04-26] MEDS ORDERED: CEPHALEXIN 250 MG (KEFLEX) CAP PO ONE (20:45)
[2019-04-26] MEDS ORDERED: HYDROcodone/APAP 5 MG/325 MG (LORTAB) TAB PO ONE (21:00)
[2019-04-26 21:02] VITALS: BP 102/64
--- NOTE | 2019-04-27 00:38 | OPERATIVE REPORT ---
DATE OF SERVICE: PREOPERATIVE DIAGNOSIS: Ascites. POSTOPERATIVE DIAGNOSIS: Ascites. PROCEDURE: Paracentesis with ultrasound guidance. SURGEON: Leonel Mcgarry DO TRAINING AND DEVELOPMENT PROFESSIONAL: None. ANESTHESIA: Just local lidocaine. SPECIMEN: Fluid from the abdominal ascites. BLOOD LOSS: Scant. FLUIDS: None. INDICATION FOR PROCEDURE: The patient is a 38-year-old female who has a long history of ascites, on medications. She actually had a PleurX catheter placed, but recently was in different hospital, supposedly was infected with purulent drainage and had to remove it and she says to get drainage every weeks until ascites better under control with her medications. She did not get a followup from [facility]. FINDINGS: The patient had approximately 3-1/2 liters of fluid removed. PROCEDURE NOTE: After informed consent was obtained, the patient in the ER bed was sterilely prepped and draped in normal fashion. Local lidocaine was used to infiltrate the skin. A stab incision was then made with a #11 blade. Then, I had the ultrasound probe with a sterile cover and this was placed in the abdomen, then advanced the needle over the catheter watching with ultrasound guidance watched it go into the abdomen went in easily, good flash of ascitic fluid in the syringe and then carefully slid the catheter in and removed the inner catheter, then hooked this up to a suction container and got out immediately a yellow clear fluid. We then switched this 3 more times and got a total of about 3-1/2 liters of fluid, then checked with ultrasound is only a thin sliver of liquid, had tried to reposition her repositioning catheter, did not get any more ascites; so then removed the catheter. Area was cleaned and dried and a bandage was placed. The patient tolerated the procedure. Job ID: [id number] DocumentID: [id number] Dictated Date: 04/26/2019 20:34:38 [employer] Team Member Date: 04/27/2019 00:38:03 Dictated By: LEONEL MCGARRY DO [facility]
== END 2019-04-26 21:03 | disposition home or self-care (01) ==
LOC: EDUNIT# 18:38 → ER 18:39
DX: N39.0 Urinary tract infection, site not specified (principal); K60.3 Anal fistula; D64.9 Anemia, unspecified; R18.8 Other ascites; F12.10 Cannabis abuse, uncomplicated; F15.10 Other stimulant abuse, uncomplicated; J43.9 Emphysema, unspecified; J45.909 Unspecified asthma, uncomplicated; I10 Essential (primary) hypertension; I48.91 Unspecified atrial fibrillation; G40.909 Epilepsy, unspecified, not intractable, without status epilepticus; K21.9 Gastro-esophageal reflux disease without esophagitis; K58.9 Irritable bowel syndrome, unspecified; Q24.9 Congenital malformation of heart, unspecified; M79.7 Fibromyalgia; F90.9 Attention-deficit hyperactivity disorder, unspecified type; F31.9 Bipolar disorder, unspecified; F43.10 Post-traumatic stress disorder, unspecified; F60.9 Personality disorder, unspecified; F17.210 Nicotine dependence, cigarettes, uncomplicated; Z95.2 Presence of prosthetic heart valve; Z95.0 Presence of cardiac pacemaker; Z90.710 Acquired absence of both cervix and uterus; Z90.49 Acquired absence of other specified parts of digestive tract; Z88.0 Allergy status to penicillin; Z88.2 Allergy status to sulfonamides; Z88.1 Allergy status to other antibiotic agents; Z88.5 Allergy status to narcotic agent; Z88.8 Allergy status to other drugs, medicaments and biological substances; Z80.49 Family history of malignant neoplasm of other genital organs
CPT/HCPCS: 36415; 80053; 80306; 80320; 81000; 83735; 84703; 85025; 86141; 96374

== ENCOUNTER 2019-06-18 12:38 | Outpatient (RCR) | payer MEDICAID ==
[~2019-06-18] VITALS: Ht 160 cm; Wt 68.0 kg
[~2019-06-18 12:38] MED LIST changes: +ESCI20TA45 PO; +FURO20TA4 PO; +RANI-613 PO; -RANI150T46 PO
[2019-06-18 12:45] VITALS: BP 100/54
[2019-06-18] MEDS ORDERED: morphine INJ 10 MG/ML 1ML (SYR OR VIAL) ONE (13:00)
[2019-06-18] MEDS ORDERED: morphine INJ 10 MG/ML 1ML (SYR OR VIAL) IM ONE (13:15)
--- NOTE | 2019-06-18 20:41 | OPERATIVE REPORT ---
DATE OF SERVICE: 06/18/2019 ATTENDING PRIMARY SECURITY SERVICES MANAGER: Dr. Sascha Scott and Dr. Harden. PREOPERATIVE DIAGNOSIS: History of Ebstein's anomaly and recurrent symptomatic ascites. POSTPROCEDURE DIAGNOSIS: History of Ebstein's anomaly and recurrent symptomatic ascites. PROCEDURE: Paracentesis. SURGEON: Tarah Harley MD. ANESTHESIA: Local. ESTIMATED BLOOD LOSS: Minimal. FINDINGS: Straw yellow transudative fluid. DISPOSITION: The patient tolerated the procedure well. INDICATIONS: The patient is a 38-year-old female who we are seeing before in the past. We had done an EGD and colonoscopy on her in 06/2014 and she was found to have a reflux esophagitis between stage II and III as well as a small hiatal hernia 2 cm in size and moderate severity gastritis. She was found to have mild hemorrhoids as well as mild colitis; however, no other abnormalities. 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 At this time, it appears that she does need another tricuspid valve due to insufficiency and congestive heart failure. She has had lower extremity edema as well as abdominal ascites intermittently in the past two years and has had several paracenteses in the past. She did have a tunneled catheter 03/2019 however, did develop an infection and this had to be removed. Her last paracentesis was approximately 1 month ago. She has had reoccurrence of abdominal distention and symptomatic ascites. The abdomen was prepped and draped in standard surgical fashion. A 1% lidocaine was then used to anesthetize the skin, subcutaneous tissue, muscle layers as well as the peritoneal lining. A small vertical incision was made using 11-blade. The trocar and catheter were then introduced withdrawing of straw yellow transudative fluid. The catheter was then advanced over the trocar without any resistance. The catheter was then connected to tubing and gravity drainage bag. The catheter was then covered with sterile gauze followed by Op-Site. The patient tolerated the procedure well. We will continue with drainage until she is asymptomatic and less distended and remove the catheter and discharge her home. It appears as though her duration of symptomatic ascites is approximately one month at this point and if that is the case, we will just recommend doing paracentesis as needed versus placement of a peritoneal catheter due to her risk of infection. Job ID: [id number] DocumentID: [id number] Dictated Date: 06/18/2019 13:33:09 [employer] Platemaker Date: 06/18/2019 20:40:52 Dictated By: TARAH HARLEY MD
[2019-09-10] MEDS ORDERED: LEVE10006 PO (10:09)
[2019-09-10] MEDS ORDERED: ALBU6.7H8 INH (10:09)
[2019-09-10] MEDS ORDERED: DILT180C PO (10:09)
[2019-09-10] MEDS ORDERED: POTA-51 PO (10:09)
[2019-09-10] MEDS ORDERED: MIRT15TA6 PO (10:42)
[2019-09-12] MEDS ORDERED: ONDA4TAB11 PO (09:41)
[2019-09-12] MEDS ORDERED: CEFD300C3 PO (09:41)
== END 2019-09-16 | disposition home or self-care (01) ==
LOC: RAD 12:38 → SDC 12:38 → EDSTATUS 13:00
PROVIDERS: ATTEND Nurse Practitioner Family
DX: R18.8 Other ascites (principal); Q22.5 Ebstein's anomaly; I07.1 Rheumatic tricuspid insufficiency; I50.9 Heart failure, unspecified; Z95.2 Presence of prosthetic heart valve; K21.9 Gastro-esophageal reflux disease without esophagitis; I47.1 Supraventricular tachycardia; Z86.14 Personal history of Methicillin resistant Staphylococcus aureus infection; J44.9 Chronic obstructive pulmonary disease, unspecified; I48.92 Unspecified atrial flutter; M41.9 Scoliosis, unspecified; K58.9 Irritable bowel syndrome, unspecified; F41.9 Anxiety disorder, unspecified; F31.9 Bipolar disorder, unspecified; F32.9 Major depressive disorder, single episode, unspecified; F20.9 Schizophrenia, unspecified; Z88.0 Allergy status to penicillin; Z88.2 Allergy status to sulfonamides; Z79.01 Long term (current) use of anticoagulants; Z79.899 Other long term (current) drug therapy
CPT/HCPCS: 49082; 96372

== ENCOUNTER 2019-06-20 12:40 | Emergency (ER) | payer MEDICAID ==
[~2019-06-20] VITALS: Ht 160 cm; Wt 56.7 kg
[~2019-06-20 12:40] MED LIST changes: +BUSP10TA95; +ESCI20TA45; -ESCI20TA45 PO; +FURO20TA4; -FURO20TA4 PO; +HYDR-3781
[2019-06-20] MEDS ORDERED: NS IV 500 ML 500 ML IV SCH (12:45)
[2019-06-20] MEDS ORDERED: ONDANSETRON 4 MG/2 ML (SDV) Z0FRAN IVP ONE (12:45)
--- NOTE | 2019-06-20 12:55 | ED General ---
General Chief Complaint: Dizziness/Syncope Stated Complaint: TOOK ENERGY PILLS;FAST HR;VOMITING Source of Information: Patient, EMS Exam Limitations: No Limitations History of Present Illness Date Seen by Provider: Jun 20, 2019 Time Seen by Provider: 12:52 Initial Comments To ER with reports that she was feeling sluggish this morning, decided to take for energy pills that she purchased at a gas station. About 1 hour ago she did this, 30 minutes ago she became nauseous and developed palpitations. She arrives per EMS, has a history of CHF, SVT, atrial fibrillation/atrial flutter. She is on xarelto. At one point she was on the cardiac transplant list at but was removed from that list after continuing drug use. She denies any methamphetamine use for 9 months. Timing/Duration: 1 Hour Severity: Moderate Associated Systoms: Chest Pain Allergies and Home Medications Allergies Coded Allergies: asenapine (Unverified Allergy, Severe, TOUNGE SWELLING, 03/31/19) Penicillins (Unverified Allergy, Unknown, 03/31/19) Sulfa (Sulfonamide Antibiotics) (Unverified Allergy, Unknown, 03/31/19) erythromycin base (Verified Allergy, Unknown, 03/31/19) peas (Verified Allergy, Unknown, 03/31/19) prochlorperazine (Verified Allergy, Unknown, 03/31/19) promethazine (Verified Allergy, Unknown, 01/31/06) promethazine HCl (Unverified Allergy, Unknown, 06/07/14) propoxyphene (Verified Allergy, Unknown, 11/26/05) Home Medications Acetaminophen 500 Mg Tablet, 1,000-2,000 MG PO Q6H PRN for PAIN-MILD, (Reported) TAKES 2-4 (500 MG) TABLETS Calcium Carbonate 300 Mg Tab.chew, 600 MG PO DAILY PRN for INDIGESTION, (Reported) TAKES 2 (300 MG) TABLETS Cephalexin 500 Mg Capsule, 500 MG PO BID Prescribed by: JAIME FALL on 04/26/192041 Cyclobenzaprine HCl 10 Mg Tablet, 10 MG PO BID PRN for MUSCLE SPASMS, (Reported) Digoxin 125 Mcg Tablet, 125 MCG PO DAILY, (Reported) Diltiazem HCl 180 Mg Cap.er.24h, 180 MG PO DAILY, (Reported) Hydrocodone Bit/Acetaminophen 1 Tab Tab, 1 EACH PO Q4-6HR PRN for PAIN-MODERATE Prescribed by: MARA LUNA on 03/26/19 1507 Metoprolol Tartrate 25 Mg Tablet, 25 MG PO BID, (Reported) Omeprazole 40 Mg Capsule.dr, 40 MG PO 1800, (Reported) Polyethylene Glycol 3350 17 Gm Powd.pack, 17 GM PO DAILY PRN for CONSTIPATION- 2ND LINE, (Reported) Potassium Chloride 20 Meq Tab.er.prt, 20 MEQ PO 0900,1800, (Reported) Risperidone 1 Mg Tablet, 1 MG PO BID, (Reported) Rivaroxaban 20 Mg Tablet, 20 MG PO DAILY, (Reported) Patient Home Medication List Home Medication List Reviewed: Yes Review of Systems Review of Systems Constitutional: see HPI EENTM: see HPI Respiratory: no symptoms reported Cardiovascular: see HPI Genitourinary: no symptoms reported Musculoskeletal: no symptoms reported Skin: no symptoms reported Psychiatric/Neurological: No Symptoms Reported Past Jldwyvo-Vrdoba-Unmkzz Hx Patient Social History Alcohol Beverage of Choice: Beer, Cheap Liquor Drug of Choice: THC, CRYSTAL METH, RX PILLS-EXTESNIVE USE WITH MULTIPLE OD'S Type Used: Cigarettes 2nd Hand Smoke Exposure: Yes Recent Hopitalizations: Yes (04/06-04/16/19 AT [facility]) Immunizations Up To Date Tetanus Booster (TDap): Unknown Date of Pneumonia Vaccine: Oct 22, 2017 Date of Influenza Vaccine: Aug 22, 2015 Seasonal Allergies Seasonal Allergies: No Past Medical History Surgeries: Yes Abdominal, Appendectomy, Cardiac, Section, Gallbladder, Hysterectomy, Oophorectomy, Orthopedic, Pacemaker, Tubal Ligation, Valve Replacement Respiratory: Yes Asthma, Chronic Bronchitis, COPD, Emphysema Currently Using CPAP: No Currently Using BIPAP: No Cardiac: Yes Atrial Fibrillation, Chronic Edema/Swelling, Congenital Heart Disease, Heart Murmur, Hypertension, Irregular Heartbeat, Syncope, Valvular Heart Disease Neurological: Yes Seizure Disorder 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: Yes 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: 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 Sexually Transmitted Disease: No HIV/AIDS: No Genitourinary: Yes Neurogenic Bladder Gastrointestinal: Yes Gastroesophageal Reflux, Gastrointestinal Bleed, Hiatal Hernia, Ulcer, Irritable Bowel Musculoskeletal: Yes Degenerate Disk Disease, Fibromyalgia, Back Injury, Chronic Back Pain, Fractures Endocrine: No HEENT: Yes Loss of Vision: Bilateral Hearing Impairment: Denies Cancer: No Psychosocial: Yes ADD/ADHD, Anxiety, PTSD, Suicide Attempts, Bipolar, Personality Disorder, Depression Integumentary: Yes Blood Disorders: No Adverse Reaction/Blood Tranf: No Family Medical History Alcoholism 19 MOTHER Depression Depression Diabetes mellitus 19 MOTHER Drug abuse 19 MOTHER FH: cancer of genital organ 19 MOTHER Physical Exam Vital Signs Vital Signs - First Documented 06/20/19 12:50 Temp 97.8 Pulse 70 Resp 21 B/P (MAP) 137/91 (106) Pulse Ox 100 Capillary Refill : Height, Weight, BMI Height: 5'3.00" Weight: 150lbs. 0.0oz. 68.677196qb; 21.3 BMI Method:Stated General Appearance: No Apparent Distress, WD/WN, Thin Eyes: Bilateral Eye Normal Inspection, Bilateral Eye PERRL, Bilateral Eye EOMI Neck: Full Range of Motion, Normal Inspection Respiratory: No Accessory Muscle Use, No Respiratory Distress Cardiovascular: No Edema, Other Gastrointestinal: Normal Bowel Sounds, Non Tender, Soft Extremity: Normal Capillary Refill, Normal Inspection Neurologic/Psychiatric: Alert, Oriented x3 Skin: Normal Color, Warm/Dry Progress/Results/Core Measures Suspected Sepsis SIRS Temperature: Pulse: Respiratory Rate: Laboratory Tests 06/20/19 13:00: White Blood Count 19.8H Blood Pressure / Mean: Laboratory Tests 06/20/19 13:00: Platelet Count 839H 06/20/19 14:27: Creatinine 0.71, Total Bilirubin 0.5 Results/Orders Lab Results Laboratory Tests Test 06/20/19 13:00 06/20/19 13:54 06/20/19 14:27 Range/Units White Blood Count 19.8 H 4.3-11.0 10^3/uL Red Blood Count 4.85 4.35-5.85 10^6/uL Hemoglobin 10.0 L 11.5-16.0 G/DL Hematocrit 32 L 35-52 % Mean Corpuscular Volume 66 L 80-99 FL Mean Corpuscular Hemoglobin 21 L 25-34 PG Mean Corpuscular Hemoglobin Concent 31 L 32-36 G/DL Red Cell Distribution Width 20.5 H 10.0-14.5 % Platelet Count 839 H 130-400 10^3/uL Mean Platelet Volume 10.3 7.4-10.4 FL Neutrophils (%) (Auto) 76 H 42-75 % Lymphocytes (%) (Auto) 14 12-44 % Monocytes (%) (Auto) 6 0-12 % Eosinophils (%) (Auto) 4 0-10 % Basophils (%) (Auto) 0 0-10 % Neutrophils # (Auto) 15.0 H 1.8-7.8 X 10^3 Lymphocytes # (Auto) 2.8 1.0-4.0 X 10^3 Monocytes # (Auto) 1.1 H 0.0-1.0 X 10^3 Eosinophils # (Auto) 0.8 H 0.0-0.3 10^3/uL Basophils # (Auto) 0.1 0.0-0.1 10^3/uL Neutrophils % (Manual) 73 % Lymphocytes % (Manual) 16 % Monocytes % (Manual) 4 % Eosinophils % (Manual) 7 % Flakita Rods Polychromasia SLIGHT Hypochromasia MARKED Poikilocytosis MODERATE Target Cells MODERATE Helmet Cells SLIGHT Crenated Cell MODERATE Acanthocytes SLIGHT Schistocytes SLIGHT Urine Color YELLOW Urine Clarity SLIGHTLY CLOUDY Urine pH 6 5-9 Urine Specific Embarrass 1.020 1.016-1.022 Urine Protein 2+ H NEGATIVE Urine Glucose (UA) NEGATIVE NEGATIVE Urine Ketones 1+ H NEGATIVE Urine Nitrite NEGATIVE NEGATIVE Urine Bilirubin NEGATIVE NEGATIVE Urine Urobilinogen 4 H NORMAL MG/DL Urine Leukocyte Esterase 2+ H NEGATIVE Urine RBC (Auto) NEGATIVE NEGATIVE Urine RBC NONE /HPF Urine WBC 5-10 H /HPF Urine Squamous Epithelial Cells >50 H /HPF Urine Crystals NONE /LPF Urine Bacteria TRACE /HPF Urine Casts PRESENT /LPF Urine Hyaline Casts >50 H /LPF Urine Granular Casts 2-5 H /LPF Urine Mucus NEGATIVE /LPF Urine Culture Indicated NO Urine Opiates Screen NEGATIVE NEGATIVE Urine Oxycodone Screen NEGATIVE NEGATIVE Urine Methadone Screen NEGATIVE NEGATIVE Urine Propoxyphene Screen NEGATIVE NEGATIVE Urine Barbiturates Screen NEGATIVE NEGATIVE Ur Tricyclic Antidepressants Screen POSITIVE H NEGATIVE Urine Phencyclidine Screen NEGATIVE NEGATIVE Urine Amphetamines Screen NEGATIVE NEGATIVE Urine Methamphetamines Screen NEGATIVE NEGATIVE Urine Benzodiazepines Screen NEGATIVE NEGATIVE Urine Cocaine Screen NEGATIVE NEGATIVE Urine Cannabinoids Screen POSITIVE H NEGATIVE Sodium Level 137 135-145 MMOL/L Potassium Level 3.1 L 3.6-5.0 MMOL/L Chloride Level 104 98-107 MMOL/L Carbon Dioxide Level 20 L 21-32 MMOL/L Anion Gap 13 5-14 MMOL/L Blood Urea Nitrogen 5 L 7-18 MG/DL Creatinine 0.71 0.60-1.30 MG/DL Estimat Glomerular Filtration Rate > 60 BUN/Creatinine Ratio 7 Glucose Level 111 H 70-105 MG/DL Calcium Level 8.8 8.5-10.1 MG/DL Corrected Calcium 8.8 8.5-10.1 MG/DL Magnesium Level 1.9 1.6-2.4 MG/DL Total Bilirubin 0.5 0.1-1.0 MG/DL Aspartate Amino Transf (AST/SGOT) 20 5-34 U/L Alanine Aminotransferase (ALT/SGPT) 16 0-55 U/L Alkaline Phosphatase 169 H 40-136 U/L Troponin I < 0.028 <0.028 NG/ML Total Protein 8.2 6.4-8.2 GM/DL Albumin 4.0 3.2-4.5 GM/DL Lipase 15 8-78 U/L Digoxin Level < 0.30 L 0.80-2.00 NG/ML My Orders Orders - SUDHIR SCTOT APRN Cbc With Automated Diff (06/20/19 12:44) Comprehensive Metabolic Panel (06/20/19 12:44) Lipase (06/20/19 12:44) Ekg Tracing (06/20/19 12:44) Troponin I (06/20/19 12:44) Ed Iv/Invasive Line Start (06/20/19 12:44) Magnesium (06/20/19 12:44) Ns Iv 500 Ml (Sodium Chloride 0.9%) (06/20/19 12:45) Ondansetron Injection (Zofran Injectio (06/20/19 12:45) Chest 1 View, Ap/Pa Only (06/20/19 12:51) Diltiazem Injection (Cardizem Injection) (06/20/19 13:00) Manual Differential (06/20/19 13:00) Ua Culture If Indicated (06/20/19 13:17) Drug Screen Stat (Urine) (06/20/19 13:17) Digoxin (06/20/19 13:17) Alprazolam Tablet (Xanax Tablet) (06/20/19 13:30) Metoprolol Tartrate (Ir) Tab (Lopressor (06/20/19 14:15) Diphenhydramine Injection (Benadryl Inje (06/20/19 14:30) Blood Culture (06/20/19 15:12) Chest 1 View, Ap/Pa Only (06/20/19 15:14) Digoxin Injection (Lanoxin Injection) (06/20/19 15:30) Potassium Chloride (Tablet) (Klor Con Ta (06/20/19 15:45) Medications Given in ED Current Medications Medications Dose Ordered Sig/Norma Route Start Time Stop Time Status Last Admin Dose Admin Alprazolam 0.5 mg ONCE ONCE PO 06/20/19 13:30 06/20/19 13:31 DC 06/20/19 13:31 0.5 MG Diltiazem HCl 10 mg ONCE ONCE IVP 06/20/19 13:00 06/20/19 13:01 DC 06/20/19 13:15 10 MG Diphenhydramine HCl 25 mg ONCE ONCE IVP 06/20/19 14:30 06/20/19 14:31 DC 06/20/19 14:33 25 MG Metoprolol Tartrate 25 mg ONCE ONCE PO 06/20/19 14:15 06/20/19 14:16 DC 06/20/19 14:07 25 MG Ondansetron HCl 8 mg ONCE ONCE IVP 06/20/19 12:45 06/20/19 12:46 DC 06/20/19 13:15 8 MG Vital Signs/I&O 06/20/19 12:50 Temp 97.8 Pulse 70 Resp 21 B/P (MAP) 137/91 (106) Pulse Ox 100 Capillary Refill : Diagnostic Imaging Diagonstic Imaging: Xray Comments NAME: IANPK [facility] REC#: [id number] PT STATUS: REG ER : 1980 PHYSICIAN: SUDHIR SCOTT PUSHCART PEDDLER ADMIT DATE: 06/20/19/ER Draft Date of Exam:06/20/19 CHEST 1 VIEW, AP/PA ONLY CLINICAL INDICATION: Patient with dizziness and vomiting. EXAM: Portable chest x-ray upright view. COMPARISONS: Chest x-ray dated 04/21/2019. FINDINGS: Lungs/pleura: Lungs are clear. There is no pneumothorax. There is no pleural effusion. Mediastinum: Unremarkable. Pulmonary vasculature: Unremarkable. Heart: Heart size within normal limits. Stable postop changes to the chest with sternotomy wires and cardiac pacemaker overlying the chest. Bones/extrathoracic soft tissue: Posterior fusion hardware is again seen. IMPRESSION: Stable chest x-ray exam with no interval radiographic evidence of acute cardiopulmonary process. Dictated on workstation # [id number] Dict: 06/20/19 1339 Trans: 06/20/19 1342 [facility] [id number] Interpreted by: JLUIS MILLER MD Electronically signed by: Departure Communication (Admissions) 1257-Patient had a brief episode of atrial fibrillation with a rate into the 140s with stable blood pressure. Mentation was preserved. This then reduced to about 115 to 120. I'll order a dose of Cardizem IV. 1512- poor IV access in this patient Prior drug use. Ultrasound was used to obtain right internal jugular vein access using 20-gauge 1.88 inch insight IV catheter. Patient tolerated well. She has a history of leukocytosis nearly every visit, today's white count being a bit higher but she is afebrile. Suspect this to be from the vomiting that she was doing on arrival. She did have a paracentesis done yesterday by Dr. Rose, but again has been afebrile and without abdominal pain. I did obtain blood cultures. Impression Primary Impression: Atrial fibrillation Qualified Codes: I48.2 - Chronic atrial fibrillation Additional Impression: CHF (congestive heart failure) Qualified Codes: I50.9 - Heart failure, unspecified Disposition: 01 HOME, SELF-CARE Condition: Stable Departure-Patient Inst. Decision time for Depature: 15:43 Referrals: [facility]/ (PCP) Primary Care Physician FRANCHESKA HEADLEY (Family) Primary Care Physician Patient Instructions: NO INSTRUCTIONS GIVEN Add. Discharge Instructions: 1. Follow-up with your doctor next week 2. Return here for any concerns such as fevers, chills, anything else that worries you. 3. All discharge instructions reviewed with patient and/or family. Voiced und erstanding. SUDHIR SCOTT APRN Jun 20, 2019 12:55
[2019-06-20] MEDS ORDERED: DILTIAZEM 25 MG/5 ML INJ (CARDIZEM) VIAL IVP ONE (13:00)
[2019-06-20 13:14] LABS: BASOPHILS # (AUTO) 0.1 10^3/uL (0.0-0.1); BASOPHILS % (AUTO) 0 % (0-10); EOSINOPHILS # (AUTO) 0.8 10^3/uL (0.0-0.3); EOSINOPHILS % (AUTO) 4 % (0-10); HEMATOCRIT 32 % (35-52); LYMPHOCYTES # (AUTO) 2.8 X 10^3 (1.0-4.0); LYMPHOCYTES % (AUTO) 14 % (12-44); MEAN CORPUSCULAR HEMOGLOBIN 21 PG (25-34); MEAN CORPUSCULAR HGB CONC 31 G/DL (32-36); MEAN CORPUSCULAR VOLUME 66 FL (80-99); MEAN PLATELET VOLUME 10.3 FL (7.4-10.4); MONOCYTES # (AUTO) 1.1 X 10^3 (0.0-1.0); MONOCYTES % (AUTO) 6 % (0-12); NEUTROPHILS % (AUTO) 76 % (42-75); PLATELET COUNT 839 10^3/uL (130-400); RED CELL DISTRIBUTION WIDTH 20.5 % (10.0-14.5); WHITE BLOOD COUNT 19.8 10^3/uL (4.3-11.0)
[2019-06-20] MEDS ORDERED: ALPRAZolam 0.25 MG (XANAX) TAB PO ONE (13:30)
--- NOTE | 2019-06-20 13:43 | Diagnostic Imaging Report ---
CLINICAL INDICATION: Patient with dizziness and vomiting. EXAM: Portable chest x-ray upright view. COMPARISONS: Chest x-ray dated 04/21/2019. FINDINGS: Lungs/pleura: Lungs are clear. There is no pneumothorax. There is no pleural effusion. Mediastinum: Unremarkable. Pulmonary vasculature: Unremarkable. Heart: Heart size within normal limits. Stable postop changes to the chest with sternotomy wires and cardiac pacemaker overlying the chest. Bones/extrathoracic soft tissue: Posterior fusion hardware is again seen. IMPRESSION: Stable chest x-ray exam with no interval radiographic evidence of acute cardiopulmonary process. Dictated by: Dictated on workstation # [id number]
[2019-06-20 14:00] LABS: EOSINOPHILS % (MANUAL) 7 %; LYMPHOCYTES % (MANUAL) 16 %; MONOCYTES % (MANUAL) 4 %; NEUTROPHILS % (MANUAL) 73 %
[2019-06-20 14:00] LABS: BILIRUBIN,URINE NEGATIVE (NEGATIVE); CLARITY,URINE SLIGHTLY CLOUDY; COLOR,URINE YELLOW; GLUCOSE, URINE (UA) NEGATIVE (NEGATIVE); KETONES,URINE 1+ (NEGATIVE); LEUKOCYTE ESTERASE ,URINE 2+ (NEGATIVE); NITRITE,URINE NEGATIVE (NEGATIVE); PH,URINE 6 (5-9); PROTEIN,URINE 2+ (NEGATIVE); UROBILINOGEN,URINE 4 MG/DL (NORMAL)
[2019-06-20 14:01] LABS: ACANTHOCYTES SLIGHT; CRENATED RBC MODERATE; HELMET/BITE CELLS SLIGHT; HYPOCHROMASIA MARKED; POIKILOCYTOSIS MODERATE; POLYCHROMASIA SLIGHT; SCHISTOCYTES SLIGHT; TARGET CELLS MODERATE
[2019-06-20] MEDS ORDERED: meTOprolol TARTRATE 25 MG (LOPRESSOR) TABLET PO ONE (14:15)
[2019-06-20 14:17] LABS: BACTERIA,URINE TRACE /HPF; HYALINE CASTS, URINE >50 /LPF; SQUAMOUS EPITHELIAL CELL,UR >50 /HPF
[2019-06-20 14:18] LABS: AMPHETAMINE SCREEN, URINE NEGATIVE (NEGATIVE); BARBITURATE SCREEN URINE NEGATIVE (NEGATIVE); BENZODIAZEPINES SCREEN URINE NEGATIVE (NEGATIVE); CANNABINOID SCREEN, URINE POSITIVE (NEGATIVE); COCAINE SCREEN URINE NEGATIVE (NEGATIVE); METHADONE STAT NEGATIVE (NEGATIVE); METHAMPHETAMINE SCREEN URINE S NEGATIVE (NEGATIVE); OPIATE SCREEN URINE NEGATIVE (NEGATIVE); OXYCODONE STAT NEGATIVE (NEGATIVE); PROPOXYPHENE STAT NEGATIVE (NEGATIVE); TRICYCLIC ANTIDEPRESSANTS SCRE POSITIVE (NEGATIVE)
[2019-06-20] MEDS ORDERED: diphenhydrAMINE 50 MG/ML INJ (BENADRYL) IVP ONE (14:30)
[2019-06-20 15:06] LABS: ALANINE AMINOTRANSFERASE 16 U/L (0-55); ALKALINE PHOSPHATASE 169 U/L (40-136); BILIRUBIN,TOTAL 0.5 MG/DL (0.1-1.0); BUN/CREATININE RATIO 7; CALCIUM 8.8 MG/DL (8.5-10.1); CARBON DIOXIDE 20 MMOL/L (21-32); CHLORIDE 104 MMOL/L (98-107); CREATININE SERUM 0.71 MG/DL (0.60-1.30); GFR ESTIMATED > 60; GLUCOSE 111 MG/DL (70-105); LIPASE 15 U/L (8-78); MAGNESIUM 1.9 MG/DL (1.6-2.4); POTASSIUM 3.1 MMOL/L (3.6-5.0); SODIUM 137 MMOL/L (135-145); TOTAL PROTEIN 8.2 GM/DL (6.4-8.2)
[2019-06-20] MEDS ORDERED: DIGOXIN 0.25 MG/ML (LANOXIN) 2 ML AMP IV SCH (15:30)
[2019-06-20] MEDS ORDERED: KCL 10 MEQ TAB (MICRO K) PO ONE (15:45)
--- NOTE | 2019-06-20 15:51 | Diagnostic Imaging Report ---
INDICATION: Tachycardia, lightheadedness. Frontal chest obtained at 03:31 p.m. and compared to 06/20/2019 at 01:23 p.m. There are post sternotomy changes with cardiomegaly and prosthetic valve. Pacemaker device in place with epicardial leads and transvenous leads again noted. Spinal rods are again noted. There is cardiomegaly. There is no focal infiltrate, pneumothorax, or pleural fluid. IMPRESSION: Postoperative findings as described above with cardiomegaly. No pneumothorax, pleural fluid, or focal infiltrate. Dictated by: Dictated on workstation # [id number]
[2019-06-20] MEDS ORDERED: DIGOXIN 0.125 MG (LANOXIN) TAB PO ONE (16:15)
[2019-06-20 16:25] VITALS: BP 135/96
== END 2019-06-20 16:25 | disposition home or self-care (01) ==
LOC: EDUNIT# 12:40 → ER 12:41
DX: I48.91 Unspecified atrial fibrillation (principal); I11.0 Hypertensive heart disease with heart failure; I50.9 Heart failure, unspecified; J43.9 Emphysema, unspecified; J45.909 Unspecified asthma, uncomplicated; Q24.9 Congenital malformation of heart, unspecified; G40.909 Epilepsy, unspecified, not intractable, without status epilepticus; K58.9 Irritable bowel syndrome, unspecified; M79.7 Fibromyalgia; F90.9 Attention-deficit hyperactivity disorder, unspecified type; F41.9 Anxiety disorder, unspecified; F43.10 Post-traumatic stress disorder, unspecified; F31.9 Bipolar disorder, unspecified; F60.9 Personality disorder, unspecified; Z87.19 Personal history of other diseases of the digestive system; Z79.01 Long term (current) use of anticoagulants; Z88.8 Allergy status to other drugs, medicaments and biological substances; Z88.0 Allergy status to penicillin; Z88.2 Allergy status to sulfonamides; Z88.1 Allergy status to other antibiotic agents; Z77.22 Contact with and (suspected) exposure to environmental tobacco smoke (acute) (chronic); Z90.49 Acquired absence of other specified parts of digestive tract; Z90.710 Acquired absence of both cervix and uterus; Z95.0 Presence of cardiac pacemaker; Z98.51 Tubal ligation status; Z95.2 Presence of prosthetic heart valve; Z80.8 Family history of malignant neoplasm of other organs or systems
CPT/HCPCS: 36415; 71045; 80053; 80162; 80306; 81000; 83690; 83735; 84484; 85007; 85027; 87040; 93005

== ENCOUNTER 2019-06-28 14:44 | Emergency (ER) | payer MEDICAID ==
[~2019-06-28] VITALS: Ht 160 cm; Wt 59.0 kg
[2019-06-28] MEDS ORDERED: HYDROCORTISONE 1% CREAM 30 GM TUBE ONE (14:59)
--- NOTE | 2019-06-28 15:04 | ED Upper Extremity ---
General Stated Complaint: POSS INSECT BITE Source: patient Exam Limitations: no limitations History of Present Illness Date Seen by Provider: Jun 28, 2019 Time Seen by Provider: 15:02 Initial Comments To ER with reports of possible insect bite to the medial surface of the left upper arm that began about an hour ago. Very itchy, has not taken anything for it yet. Onset: just prior to arrival Severity: moderate Pain/Injury Location: left arm Method of Injury: unknown Modifying Factors: Worse With Movement Allergies and Home Medications Allergies Coded Allergies: asenapine (Unverified Allergy, Severe, TOUNGE SWELLING, 03/31/19) Penicillins (Unverified Allergy, Unknown, 03/31/19) Sulfa (Sulfonamide Antibiotics) (Unverified Allergy, Unknown, 03/31/19) erythromycin base (Verified Allergy, Unknown, 03/31/19) peas (Verified Allergy, Unknown, 03/31/19) prochlorperazine (Verified Allergy, Unknown, 03/31/19) promethazine (Verified Allergy, Unknown, 01/31/06) promethazine HCl (Unverified Allergy, Unknown, 06/07/14) propoxyphene (Verified Allergy, Unknown, 11/26/05) Home Medications Acetaminophen 500 Mg Tablet, 1,000-2,000 MG PO Q6H PRN for PAIN-MILD, (Reported) TAKES 2-4 (500 MG) TABLETS Calcium Carbonate 300 Mg Tab.chew, 600 MG PO DAILY PRN for INDIGESTION, (Reported) TAKES 2 (300 MG) TABLETS Cephalexin 500 Mg Capsule, 500 MG PO BID Prescribed by: JAIME FALL on 04/26/192041 Cyclobenzaprine HCl 10 Mg Tablet, 10 MG PO BID PRN for MUSCLE SPASMS, (Reported) Digoxin 125 Mcg Tablet, 125 MCG PO DAILY, (Reported) Diltiazem HCl 180 Mg Cap.er.24h, 180 MG PO DAILY, (Reported) Hydrocodone Bit/Acetaminophen 1 Tab Tab, 1 EACH PO Q4-6HR PRN for PAIN-MODERATE Prescribed by: MARA LUNA on 03/26/19 150 Metoprolol Tartrate 25 Mg Tablet, 25 MG PO BID, (Reported) Omeprazole 40 Mg Capsule.dr, 40 MG PO 1800, (Reported) Polyethylene Glycol 3350 17 Gm Powd.pack, 17 GM PO DAILY PRN for CONSTIPATION- 2ND LINE, (Reported) Potassium Chloride 20 Meq Tab.er.prt, 20 MEQ PO 0900,1800, (Reported) Risperidone 1 Mg Tablet, 1 MG PO BID, (Reported) Rivaroxaban 20 Mg Tablet, 20 MG PO DAILY, (Reported) Patient Home Medication List Home Medication List Reviewed: Yes Review of Systems Constitutional: see HPI EENTM: see HPI Respiratory: no symptoms reported Cardiovascular: no symptoms reported Genitourinary: no symptoms reported Musculoskeletal: see HPI Skin: see HPI Psychiatric/Neurological: No Symptoms Reported Past Llvowja-Ryztto-Xmtwaz Hx Patient Social History Alcohol Beverage of Choice: Beer, Cheap Liquor Drug of Choice: THC, CRYSTAL METH, RX PILLS-EXTESNIVE USE WITH MULTIPLE OD'S Type Used: Cigarettes 2nd Hand Smoke Exposure: Yes Recent Hopitalizations: Yes (04/06-04/16/19 AT [facility]) Immunizations Up To Date Tetanus Booster (TDap): Unknown Date of Pneumonia Vaccine: Oct 22, 2017 Date of Influenza Vaccine: Aug 22, 2015 Seasonal Allergies Seasonal Allergies: No Past Medical History Surgeries: Yes Abdominal, Appendectomy, Cardiac, Section, Gallbladder, Hysterectomy, Oophorectomy, Orthopedic, Pacemaker, Tubal Ligation, Valve Replacement Respiratory: Yes Asthma, Chronic Bronchitis, COPD, Emphysema Currently Using CPAP: No Currently Using BIPAP: No Cardiac: Yes Atrial Fibrillation, Chronic Edema/Swelling, Congenital Heart Disease, Heart Murmur, Hypertension, Irregular Heartbeat, Syncope, Valvular Heart Disease Neurological: Yes Seizure Disorder 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: Yes 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: 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 Sexually Transmitted Disease: No HIV/AIDS: No Genitourinary: Yes Neurogenic Bladder Gastrointestinal: Yes Gastroesophageal Reflux, Gastrointestinal Bleed, Hiatal Hernia, Ulcer, Irritable Bowel Musculoskeletal: Yes Degenerate Disk Disease, Fibromyalgia, Back Injury, Chronic Back Pain, Fractures Endocrine: No HEENT: Yes Loss of Vision: Bilateral Hearing Impairment: Denies Cancer: No Psychosocial: Yes ADD/ADHD, Anxiety, PTSD, Suicide Attempts, Bipolar, Personality Disorder, Depression Integumentary: Yes Blood Disorders: No Adverse Reaction/Blood Tranf: No Family Medical History Alcoholism 19 MOTHER Depression Depression Diabetes mellitus 19 MOTHER Drug abuse 19 MOTHER FH: cancer of genital organ 19 MOTHER Physical Exam Vital Signs Capillary Refill : Height, Weight, BMI Height: 5'3.00" Weight: 125lbs. 0.0oz. 56.986754yp; 21.3 BMI Method:Stated General Appearance: WD/WN, no apparent distress HEENT: PERRL/EOMI, normal ENT inspection Respiratory: no respiratory distress, no accessory muscle use Gastrointestinal: normal bowel sounds, non tender Shoulder: non-tender, soft tissue tenderness (there is a half-dollar sized area to the medial side of the left upper arm. 2 of these separate lesions well demarcated slightly erythematous consistent with a wheal or localized allergic reaction. There is no lymphangitis. There are no other wheals on her body.) Elbow/Forearm: Left Neurologic/Psychiatric: alert, normal mood/affect, oriented x 3 Skin: normal color, warm/dry Progress/Results/Core Measures Results/Orders My Orders Orders - SUDHIR SCOTT APRN Diphenhydramine Tablet (Benadryl Tablet) (06/28/19 15:15) Hydrocortisone 1% Lotion (Cortizone-10 L (06/28/19 15:15) Departure Impression Primary Impression: localized allergic reaction Disposition: 01 HOME, SELF-CARE Condition: Stable Departure-Patient Inst. Decision time for Depature: 15:04 Referrals: [facility] (PCP) Primary Care Physician FRANCHESKA HEADLEY (Family) Primary Care Physician Patient Instructions: Insect Bites and Stings Add. Discharge Instructions: 1. You can take another Benadryl and about 4-6 hours. Cool compresses to the area or ice pack would be helpful. Apply the steroid cream 2-3 times daily for about 2-3 days. SUDHIR SCOTT APRN Jun 28, 2019 15:04
[2019-06-28 15:15] VITALS: BP 100/54
[2019-06-28] MEDS ORDERED: diphenhydrAMINE 25 MG TAB (BENADRYL) PO ONE (15:15)
[2019-06-28] MEDS ORDERED: HYDROCORTISONE 1% TP PRN (15:15)
== END 2019-06-28 15:14 | disposition home or self-care (01) ==
LOC: EDUNIT# 14:44 → ER 14:46
DX: T78.49XA Other allergy, initial encounter (principal); J43.9 Emphysema, unspecified; J45.909 Unspecified asthma, uncomplicated; I10 Essential (primary) hypertension; I48.91 Unspecified atrial fibrillation; Q24.9 Congenital malformation of heart, unspecified; G40.909 Epilepsy, unspecified, not intractable, without status epilepticus; K21.9 Gastro-esophageal reflux disease without esophagitis; K58.9 Irritable bowel syndrome, unspecified; M79.7 Fibromyalgia; F90.9 Attention-deficit hyperactivity disorder, unspecified type; F41.9 Anxiety disorder, unspecified; F43.10 Post-traumatic stress disorder, unspecified; F31.9 Bipolar disorder, unspecified; F60.9 Personality disorder, unspecified; Z88.0 Allergy status to penicillin; Z88.2 Allergy status to sulfonamides; Z88.1 Allergy status to other antibiotic agents; Z88.8 Allergy status to other drugs, medicaments and biological substances; Z90.49 Acquired absence of other specified parts of digestive tract; Z90.710 Acquired absence of both cervix and uterus; Z95.0 Presence of cardiac pacemaker; Z98.51 Tubal ligation status; Z95.2 Presence of prosthetic heart valve; Z80.49 Family history of malignant neoplasm of other genital organs
CPT/HCPCS: 99283

== ENCOUNTER 2019-07-02 12:52 | Outpatient (CLI) | payer MEDICAID ==
[~2019-07-02] VITALS: Ht 160 cm; Wt 62.3 kg
[2019-07-02 13:00] VITALS: BP 105/63
[2019-07-02] MEDS ORDERED: morphine INJ 10 MG/ML 1ML (SYR OR VIAL) ONE (14:19)
--- NOTE | 2019-07-02 14:25 | NUR ---
dr. simmons on floor and gave order for 5mg im morphine injection, regular diet.
[2019-07-02] MEDS ORDERED: morphine INJ 10 MG/ML 1ML (SYR OR VIAL) IVP STA (14:52)
--- NOTE | 2019-07-02 15:47 | Progress Note-Post Operative ---
Post-Operative Progess Note Surgeon (s)/Plate Maker (s) Surgeon TARAH HARLEY MD Plate Maker: none Pre-Operative Diagnosis recurrent symptomatic ascites Post-Operative Diagnosis same Procedure & Operative Findings Date of Procedure 07/02/19 Procedure Performed/Findings paracentesis Anesthesia Type local Estimated Blood Loss Estimated blood loss (mL): minimal Specimens/Packing Specimens Removed none TARAH HARLEY MD Jul 02, 2019 15:47
[2019-07-02 16:15] VITALS: BP 105/63
--- NOTE | 2019-07-02 22:53 | OPERATIVE REPORT ---
DATE OF SERVICE: 07/02/2019 ATTENDING PRIMARY APPLICATION PROJECT LEADER: Sascha Scott APRN and Dr. Harden. 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 PROCEDURE: Paracentesis. SURGEON: Tarah Harley MD. ANESTHESIA: Local. ESTIMATED BLOOD LOSS: Minimal. FINDINGS: Straw yellow transudative fluid. DISPOSITION: The patient tolerated the procedure well. INDICATIONS: The patient is a 38-year-old female who we have seen before in the past. We had done an EGD and colonoscopy on her in 2013 for reflux esophagitis, small hiatal hernia and moderate gastritis. The colon showed mild hemorrhoids as well as mild colitis of the sigmoid colon; however, biopsies were normal. She has a history of Ebstein's anomaly and has undergone tricuspid valve replacement twice in the past. She was seen by her sales engineer engineered products more recently and it sounds as though she does have a tricuspid regurgitation versus insufficiency and is having right-sided hypertension. She has had multiple recurrent episodes of symptomatic ascites requiring paracentesis as well as placement of a tunneled catheter. She returns with symptomatic ascites with abdominal distention and a positive fluid shift wave. The abdomen was prepped and draped in standard surgical fashion. 1% lidocaine with epinephrine was used to anesthetize overlying through the skin, subcutaneous tissue, fascia and peritoneal lining. A vertical skin incision was made using 11 blade and the trocar and catheter were then introduced withdrawing of straw yellow transudative fluid. The catheter was then advanced over the trocar without any resistance. The catheter was then connected to tubing and a gravity drainage bag. Catheter was then covered with gauze followed by Op-Site. The patient tolerated the procedure well. We will continue with gravity drainage until she is asymptomatic and remove the catheter. We will continue to proceed with paracentesis as necessary. However, at some point she will need further evaluation with cardiology as well as cardiothoracic surgery for possible replacement of the tricuspid valve. Job ID: [id number] DocumentID: [id number] Dictated Date: 07/02/2019 14:30:21 Silk Screen Printer Helper Date: 07/02/2019 22:51:49 Dictated By: TARAH HARLEY MD
== END 2019-07-02 16:15 | disposition home or self-care (01) ==
LOC: SDC 12:52
PROVIDERS: ATTEND Nurse Practitioner Family
DX: R18.8 Other ascites (principal)
CPT/HCPCS: 49082

== ENCOUNTER 2019-09-05 19:11 | Observation (INO) | payer MEDICAID ==
[~2019-09-05] VITALS: Ht 160 cm; Wt 62.5 kg
[~2019-09-05 19:11] MED LIST changes: -BUSP10TA95; -ESCI20TA45; +ESCI20TA45 PO; -FURO20TA4; +FURO20TA4 PO; -HYDR-3781
[2019-09-05 19:38] LABS: BILIRUBIN,URINE NEGATIVE (NEGATIVE); CLARITY,URINE CLEAR; COLOR,URINE YELLOW; GLUCOSE, URINE (UA) NEGATIVE (NEGATIVE); KETONES,URINE NEGATIVE (NEGATIVE); LEUKOCYTE ESTERASE ,URINE NEGATIVE (NEGATIVE); NITRITE,URINE NEGATIVE (NEGATIVE); PH,URINE 6.5 (5-9); PROTEIN,URINE NEGATIVE (NEGATIVE)
[2019-09-05] MEDS ORDERED: HYDROcodone/APAP 5 MG/325 MG (LORTAB) TAB PO ONE ×2 (19:45→22:30)
[2019-09-05 19:46] LABS: BACTERIA,URINE TRACE /HPF
[2019-09-05 19:47] LABS: AMORPHOUS SEDIMENT,UR RARE AMOR URATES /LPF
[2019-09-05 19:52] LABS: AMPHETAMINE SCREEN, URINE NEGATIVE (NEGATIVE); BARBITURATE SCREEN URINE NEGATIVE (NEGATIVE); BENZODIAZEPINES SCREEN URINE NEGATIVE (NEGATIVE); CANNABINOID SCREEN, URINE POSITIVE (NEGATIVE); COCAINE SCREEN URINE NEGATIVE (NEGATIVE); METHADONE STAT NEGATIVE (NEGATIVE); METHAMPHETAMINE SCREEN URINE S NEGATIVE (NEGATIVE); OPIATE SCREEN URINE NEGATIVE (NEGATIVE); OXYCODONE STAT NEGATIVE (NEGATIVE); PROPOXYPHENE STAT NEGATIVE (NEGATIVE); TRICYCLIC ANTIDEPRESSANTS SCRE POSITIVE (NEGATIVE)
--- NOTE | 2019-09-05 19:53 | Diagnostic Imaging Report ---
EXAMINATION: Chest 1 view. HISTORY: Heart failure. COMPARISON: 06/20/2019. FINDINGS: Left subclavian pacemaker is present. Median sternotomy wires are aligned. Instrumented thoracic spine fusion is seen. Heart is enlarged, but unchanged. No pleural effusion. No edema or pneumonia. No pneumothorax. IMPRESSION: Stable enlarged heart. Dictated by: Dictated on workstation # [id number]
[2019-09-05 20:08] LABS: BASOPHILS # (AUTO) 0.1 10^3/uL (0.0-0.1); BASOPHILS % (AUTO) 1 % (0-10); EOSINOPHILS # (AUTO) 0.9 10^3/uL (0.0-0.3); EOSINOPHILS % (AUTO) 7 % (0-10); HEMATOCRIT 25 % (35-52); HEMOGLOBIN 7.6 G/DL (11.5-16.0); LYMPHOCYTES # (AUTO) 2.4 X 10^3 (1.0-4.0); LYMPHOCYTES % (AUTO) 19 % (12-44); MEAN CORPUSCULAR HEMOGLOBIN 20 PG (25-34); MEAN CORPUSCULAR HGB CONC 30 G/DL (32-36); MEAN CORPUSCULAR VOLUME 65 FL (80-99); MEAN PLATELET VOLUME 9.4 FL (7.4-10.4); MONOCYTES # (AUTO) 1.4 X 10^3 (0.0-1.0); MONOCYTES % (AUTO) 11 % (0-12); NEUTROPHILS # (AUTO) 8.1 X 10^3 (1.8-7.8); NEUTROPHILS % (AUTO) 63 % (42-75); PLATELET COUNT 519 10^3/uL (130-400); RED CELL DISTRIBUTION WIDTH 20.7 % (10.0-14.5); WHITE BLOOD COUNT 12.8 10^3/uL (4.3-11.0)
--- NOTE | 2019-09-05 20:12 | ED GI ---
General Chief Complaint: Abdominal/GI Problems Stated Complaint: SOA - FLUID ON STOMACH Nursing Triage Note: Patient reports that her abdomen is swelling causing her increased SOA. States Dr. Rose normally drains her abdomen but today she called after he had already left for the day . Sepsis Screen: No Definite Risk Source of Information: Patient Exam Limitations: No Limitations History of Present Illness Date Seen by Provider: Sep 05, 2019 Time Seen by Provider: 20:11 Initial Comments To ER with diffuse abdominal swelling, she has a known history of ascites secondary to heart failure. Her last paracentesis was about a month and a half ago with Dr. Rose. Timing/Duration: Other Severity/Quality: Moderate Location: Generalized Abdomen Radiation: No Radiation Activities at Onset: None Associated Symptoms: Denies Symptoms Allergies and Home Medications Allergies Coded Allergies: asenapine (Unverified Allergy, Severe, TOUNGE SWELLING, 03/31/19) Penicillins (Unverified Allergy, Unknown, 03/31/19) Sulfa (Sulfonamide Antibiotics) (Unverified Allergy, Unknown, 03/31/19) erythromycin base (Verified Allergy, Unknown, 03/31/19) peas (Verified Allergy, Unknown, 03/31/19) prochlorperazine (Verified Allergy, Unknown, 03/31/19) promethazine (Verified Allergy, Unknown, 01/31/06) promethazine HCl (Unverified Allergy, Unknown, 06/07/14) propoxyphene (Verified Allergy, Unknown, 11/26/05) Home Medications Acetaminophen 500 Mg Tablet, 1,000-2,000 MG PO Q6H PRN for PAIN-MILD, (Reported) TAKES 2-4 (500 MG) TABLETS Calcium Carbonate 300 Mg Tab.chew, 600 MG PO DAILY PRN for INDIGESTION, (Reported) TAKES 2 (300 MG) TABLETS Cephalexin 500 Mg Capsule, 500 MG PO BID Prescribed by: JAIME FALL on 04/26/192041 Cyclobenzaprine HCl 10 Mg Tablet, 10 MG PO BID PRN for MUSCLE SPASMS, (Reported) Digoxin 125 Mcg Tablet, 125 MCG PO DAILY, (Reported) Diltiazem HCl 180 Mg Cap.er.24h, 180 MG PO DAILY, (Reported) Hydrocodone Bit/Acetaminophen 1 Tab Tab, 1 EACH PO Q4-6HR PRN for PAIN-MODERATE Prescribed by: MARA LUNA on 03/26/19 1507 Metoprolol Tartrate 25 Mg Tablet, 25 MG PO BID, (Reported) Omeprazole 40 Mg Capsule.dr, 40 MG PO 1800, (Reported) Polyethylene Glycol 3350 17 Gm Powd.pack, 17 GM PO DAILY PRN for CONSTIPATION- 2ND LINE, (Reported) Potassium Chloride 20 Meq Tab.er.prt, 20 MEQ PO 0900,1800, (Reported) Risperidone 1 Mg Tablet, 1 MG PO BID, (Reported) Rivaroxaban 20 Mg Tablet, 20 MG PO DAILY, (Reported) Patient Home Medication List Home Medication List Reviewed: Yes Review of Systems Review of Systems Constitutional: see HPI EENTM: No Symptoms Reported Respiratory: No Symptoms Reported Cardiovascular: No Symptoms Reported Gastrointestinal: See HPI, Abdominal Pain; Denies Constipated, Denies Diarrhea, Denies Nausea, Denies Vomiting Genitourinary: No Symptoms Reported Musculoskeletal: no symptoms reported Skin: no symptoms reported Psychiatric/Neurological: No Symptoms Reported Endocrine: No Symptoms Reported Hematologic/Lymphatic: No Symptoms Reported Past Ncqunni-Nlozxv-Sjzrin Hx Patient Social History Alcohol Use: Past History Number of Drinks Today: CC Alcohol Beverage of Choice: Beer, Cheap Liquor Recreational Drug Use: Yes Drug of Choice: THC Type Used: Cigarettes 2nd Hand Smoke Exposure: Yes Recent Foreign Travel: No Contact w/Someone Who Travel: No Recent Infectious Disease Expo: No Recent Hopitalizations: No Immunizations Up To Date Tetanus Booster (TDap): Unknown PED Vaccines UTD: Yes Date of Pneumonia Vaccine: Oct 22, 2017 Date of Influenza Vaccine: Aug 22, 2015 Seasonal Allergies Seasonal Allergies: No Past Medical History Surgeries: Yes Abdominal, Appendectomy, Cardiac, Section, Gallbladder, Hysterectomy, Oophorectomy, Orthopedic, Pacemaker, Tubal Ligation, Valve Replacement Respiratory: Yes Asthma, Chronic Bronchitis, COPD, Emphysema Currently Using CPAP: No Currently Using BIPAP: No Cardiac: Yes Atrial Fibrillation, Chronic Edema/Swelling, Congenital Heart Disease, Heart Murmur, Hypertension, Irregular Heartbeat, Syncope, Valvular Heart Disease Neurological: Yes Seizure Disorder 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: Yes 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: 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 Sexually Transmitted Disease: No HIV/AIDS: No Genitourinary: Yes Neurogenic Bladder Gastrointestinal: Yes Gastroesophageal Reflux, Gastrointestinal Bleed, Hiatal Hernia, Ulcer, Irritable Bowel Musculoskeletal: Yes Degenerate Disk Disease, Fibromyalgia, Back Injury, Chronic Back Pain, Fractures Endocrine: No HEENT: Yes Loss of Vision: Bilateral Hearing Impairment: Denies Cancer: No Psychosocial: Yes ADD/ADHD, Anxiety, PTSD, Suicide Attempts, Bipolar, Personality Disorder, Depression Integumentary: Yes Blood Disorders: No Adverse Reaction/Blood Tranf: No Family Medical History Alcoholism 19 MOTHER Depression Depression Diabetes mellitus 19 MOTHER Drug abuse 19 MOTHER FH: cancer of genital organ 19 MOTHER Physical Exam Vital Signs Vital Signs - First Documented 09/05/19 19:24 Temp 36.6 Pulse 81 Resp 18 B/P (MAP) 96/56 (69) Pulse Ox 96 Capillary Refill : Less Than 3 Seconds Height/Weight/BMI Height: 5'3.00" Weight: 130lbs. 0.0oz. 58.478069bm; 23.00 BMI Method:Stated General Appearance: WD/WN, no apparent distress HEENT: PERRL/EOMI, normal ENT inspection Neck: non-tender, full range of motion Respiratory: normal breath sounds, no respiratory distress, no accessory muscle use Gastrointestinal: soft, tenderness, other (obviously distended gravid appearing abdomen, umbilicus is everted.) Extremities: normal range of motion, non-tender (low) Neurologic/Psychiatric: alert, normal mood/affect, oriented x 3 Skin: normal color, warm/dry Progress/Results/Core Measures Results/Orders Lab Results Laboratory Tests Test 09/05/19 19:30 09/05/19 19:59 Range/Units Urine Color YELLOW Urine Clarity CLEAR Urine pH 6.5 5-9 Urine Specific [place] <=1.005 1.016-1.022 Urine Protein NEGATIVE NEGATIVE Urine Glucose (UA) NEGATIVE NEGATIVE Urine Ketones NEGATIVE NEGATIVE Urine Nitrite NEGATIVE NEGATIVE Urine Bilirubin NEGATIVE NEGATIVE Urine Urobilinogen 0.2 < = 1.0 MG/DL Urine Leukocyte Esterase NEGATIVE NEGATIVE Urine RBC (Auto) NEGATIVE NEGATIVE Urine RBC NONE /HPF Urine WBC NONE /HPF Urine Squamous Epithelial Cells 5-10 /HPF Urine Crystals PRESENT H /LPF Urine Amorphous Sediment RARE ESTELITA URATES H /LPF Urine Bacteria TRACE /HPF Urine Casts NONE /LPF Urine Mucus NEGATIVE /LPF Urine Culture Indicated NO Urine Opiates Screen NEGATIVE NEGATIVE Urine Oxycodone Screen NEGATIVE NEGATIVE Urine Methadone Screen NEGATIVE NEGATIVE Urine Propoxyphene Screen NEGATIVE NEGATIVE Urine Barbiturates Screen NEGATIVE NEGATIVE Ur Tricyclic Antidepressants Screen POSITIVE H NEGATIVE Urine Phencyclidine Screen NEGATIVE NEGATIVE Urine Amphetamines Screen NEGATIVE NEGATIVE Urine Methamphetamines Screen NEGATIVE NEGATIVE Urine Benzodiazepines Screen NEGATIVE NEGATIVE Urine Cocaine Screen NEGATIVE NEGATIVE Urine Cannabinoids Screen POSITIVE H NEGATIVE White Blood Count 12.8 H 4.3-11.0 10^3/uL Red Blood Count 3.87 L 4.35-5.85 10^6/uL Hemoglobin 7.6 L 11.5-16.0 G/DL Hematocrit 25 L 35-52 % Mean Corpuscular Volume 65 L 80-99 FL Mean Corpuscular Hemoglobin 20 L 25-34 PG Mean Corpuscular Hemoglobin Concent 30 L 32-36 G/DL Red Cell Distribution Width 20.7 H 10.0-14.5 % Platelet Count 519 H 130-400 10^3/uL Mean Platelet Volume 9.4 7.4-10.4 FL Neutrophils (%) (Auto) 63 42-75 % Lymphocytes (%) (Auto) 19 12-44 % Monocytes (%) (Auto) 11 0-12 % Eosinophils (%) (Auto) 7 0-10 % Basophils (%) (Auto) 1 0-10 % Neutrophils # (Auto) 8.1 H 1.8-7.8 X 10^3 Lymphocytes # (Auto) 2.4 1.0-4.0 X 10^3 Monocytes # (Auto) 1.4 H 0.0-1.0 X 10^3 Eosinophils # (Auto) 0.9 H 0.0-0.3 10^3/uL Basophils # (Auto) 0.1 0.0-0.1 10^3/uL Sodium Level 136 135-145 MMOL/L Potassium Level 3.5 L 3.6-5.0 MMOL/L Chloride Level 101 98-107 MMOL/L Carbon Dioxide Level 23 21-32 MMOL/L Anion Gap 12 5-14 MMOL/L Blood Urea Nitrogen 15 7-18 MG/DL Creatinine 0.87 0.60-1.30 MG/DL Estimat Glomerular Filtration Rate > 60 BUN/Creatinine Ratio 17 Glucose Level 95 70-105 MG/DL Calcium Level 8.4 L 8.5-10.1 MG/DL Corrected Calcium 8.7 8.5-10.1 MG/DL Magnesium Level 1.6 1.6-2.4 MG/DL Total Bilirubin 0.4 0.1-1.0 MG/DL Aspartate Amino Transf (AST/SGOT) 16 5-34 U/L Alanine Aminotransferase (ALT/SGPT) 7 0-55 U/L Alkaline Phosphatase 138 H 40-136 U/L B-Type Natriuretic Peptide 115.6 H <100.0 PG/ML Total Protein 7.3 6.4-8.2 GM/DL Albumin 3.6 3.2-4.5 GM/DL My Orders Orders - SUDHIR SCOTT APRN Ua Culture If Indicated (09/05/19 19:30) Cbc With Automated Diff (09/05/19 19:30) Comprehensive Metabolic Panel (09/05/19 19:30) Ct Abdomen/Pelvis Wo (09/05/19 19:31) Drug Screen Stat (Urine) (09/05/19 19:34) BNP (09/05/19 19:34) Magnesium (09/05/19 19:34) Hydrocodone/Apap 5/325 Tablet (Lortab 5 (09/05/19 19:45) Chest 1 View, Ap/Pa Only (09/05/19 19:35) Red Cells Leukocytes Reduced (09/05/19 20:16) Type And Screen (09/05/19 20:16) Ketorolac Injection (Toradol Injection) (09/05/19 21:30) Medications Given in ED Current Medications Medications Dose Ordered Sig/Norma Route Start Time Stop Time Status Last Admin Dose Admin Acetaminophen/ Hydrocodone Bitart 1 tab ONCE ONCE PO 09/05/19 19:45 09/05/19 19:46 DC 09/05/19 19:55 1 TAB Ketorolac Tromethamine 15 mg ONCE ONCE IVP 09/05/19 21:30 09/05/19 21:31 DC 09/05/19 21:42 15 MG Vital Signs/I&O 09/05/19 19:24 Temp 36.6 Pulse 81 Resp 18 B/P (MAP) 96/56 (69) Pulse Ox 96 Blood Pressure Mean: 69 POS Diagnostic Imaging Diagonstic Imaging: Xray Plain Films/CT/US/NM/MRI: chest Comments NAME: IANPK MED REC#: [id number] PT STATUS: REG ER : 1980 PHYSICIAN: SUDHIR SCOTT APRN ADMIT DATE: 09/05/19/ER Signed POSDate of Exam:09/05/19 CHEST 1 VIEW, AP/PA ONLY EXAMINATION: Chest 1 view. HISTORY: Heart failure. COMPARISON: 06/20/2019. FINDINGS: Left subclavian pacemaker is present. Median sternotomy wires are aligned. Instrumented thoracic spine fusion is seen. Heart is enlarged, but unchanged. No pleural effusion. No edema or pneumonia. No pneumothorax. IMPRESSION: Stable enlarged heart. Dictated by: Dictated on workstation # [id number] Dict: 09/05/191948 Trans: 09/05/191953 [facility] [id number] Interpreted by: CATALINA KIDD MD Electronically signed by: CATALINA KIDD MD 09/05/191953 MED REC#: [id number] PT STATUS: REG ER : 1980 PHYSICIAN: SUDHIR SCOTT APRN ADMIT DATE: 09/05/19/ER Draft POSDate of Exam:09/05/19 CT ABDOMEN/PELVIS WO PROCEDURE: CT abdomen and pelvis without contrast. TECHNIQUE: Multiple contiguous axial images were obtained through the abdomen and pelvis without the use of intravenous contrast. Auto Exposure Controls were utilized during the CT exam to meet ALARA standards for radiation dose reduction. INDICATION: Abdominal distention The previous CT abdomen/pelvis exam performed on 12/19/2018 noted ascites. In the interval since the prior exam the amount of ascites has increased somewhat. There is no mass or abscess visualized. The liver is stable in size when compared to the prior exam. The spleen is surgically absent. The pancreas was not well visualized due to the ascites. The adrenals, the kidneys, the aorta and inferior vena cava show no sign of an acute abnormality. The gallbladder is surgically absent. The stomach is filled with particulate matter and consequently difficult to assess. There is also considerable amount of fecal material throughout the ascending and transverse colon. The appendix is not well visualized. The urinary bladder and uterus are poorly imaged as well. The extensive postsurgical changes involving the thoracolumbar junction seen previously are again evident. The lung bases are generally clear. The heart is enlarged. IMPRESSION: 1. There has been an increase in the amount of ascites since the prior exam. 2. The overall appearance of the abdomen is otherwise no different. No new abnormality has developed. 3. There is a considerable amount of particulate matter within the stomach and a large amount of fecal material in the ascending and transverse colon. Dictated on workstation # [id number] Dict: 09/05/192007 Trans: 09/05/192025 [facility] [id number] Interpreted by: ALEX CHRISTOPHER MD Electronically signed by: Departure Communication (Admissions) Time/Spoke to Admitting Phy: 21:[address] Archibald on-call for [facility], will admit observation status transfuse a unit of packed red cells overnight and recheck blood work in the morning, Dr. Teague will consult for possible paracentesis tomorrow. Patient is agreeable with this plan. Impression Primary Impression: Symptomatic anemia Additional Impressions: Congestive heart failure Ascites Disposition: ADMITTED INPATIENT Condition: Stable Admissions Decision to Admit Reason: Admit from ER (General) Decision to Admit/Date: Sep 05, 2019 Time/Decision to Admit Time: 21:44 Departure-Patient Inst. Referrals: [facility] (PCP) Primary Care Physician FRANCHESKA HEADLEY (Family) Primary Care Physician SUDHIR SCOTT APRN Sep 05, 2019 20:12 POS
--- NOTE | 2019-09-05 20:28 | Diagnostic Imaging Report ---
PROCEDURE: CT abdomen and pelvis without contrast. TECHNIQUE: Multiple contiguous axial images were obtained through the abdomen and pelvis without the use of intravenous contrast. Auto Exposure Controls were utilized during the CT exam to meet ALARA standards for radiation dose reduction. INDICATION: Abdominal distention The previous CT abdomen/pelvis exam performed on 12/19/2018 noted ascites. In the interval since the prior exam the amount of ascites has increased somewhat. There is no mass or abscess visualized. The liver is stable in size when compared to the prior exam. The spleen is surgically absent. The pancreas was not well visualized due to the ascites. The adrenals, the kidneys, the aorta and inferior vena cava show no sign of an acute abnormality. The gallbladder is surgically absent. The stomach is filled with particulate matter and consequently difficult to assess. There is also considerable amount of fecal material throughout the ascending and transverse colon. The appendix is not well visualized. The urinary bladder and uterus are poorly imaged as well. The extensive postsurgical changes involving the thoracolumbar junction seen previously are again evident. The lung bases are generally clear. The heart is enlarged. IMPRESSION: 1. There has been an increase in the amount of ascites since the prior exam. 2. The overall appearance of the abdomen is otherwise no different. No new abnormality has developed. 3. There is a considerable amount of particulate matter within the stomach and a large amount of fecal material in the ascending and transverse colon. Dictated by: Dictated on workstation # [id number]
[2019-09-05 20:37] LABS: ALANINE AMINOTRANSFERASE 7 U/L (0-55); ALBUMIN 3.6 GM/DL (3.2-4.5); ALKALINE PHOSPHATASE 138 U/L (40-136); BILIRUBIN,TOTAL 0.4 MG/DL (0.1-1.0); BUN/CREATININE RATIO 17; CALCIUM 8.4 MG/DL (8.5-10.1); CARBON DIOXIDE 23 MMOL/L (21-32); CHLORIDE 101 MMOL/L (98-107); CREATININE SERUM 0.87 MG/DL (0.60-1.30); GFR ESTIMATED > 60; GLUCOSE 95 MG/DL (70-105); MAGNESIUM 1.6 MG/DL (1.6-2.4); POTASSIUM 3.5 MMOL/L (3.6-5.0); SODIUM 136 MMOL/L (135-145); TOTAL PROTEIN 7.3 GM/DL (6.4-8.2)
[2019-09-05] MEDS ORDERED: KETOROLAC 30 MG/ML VIAL IVP ONE (21:30)
[2019-09-05 22:30] VITALS: BP 101/59
[2019-09-05 22:54] VITALS: BP 97/55
[2019-09-05] MEDS ORDERED: BISACODYL 10 MG SUPP (DULCOLAX) PR ONE (23:30)
[2019-09-05] MEDS ORDERED: oxyCODONE/APAP 5/325MG (PERCOCET 5) TABLET PO PRN (23:30)
[2019-09-05] MEDS ORDERED: NS IV 1000 ML 1,000 ML IV SCH (23:30)
[2019-09-05] MEDS ORDERED: oxyCODONE/APAP 5/325MG (PERCOCET 5) TABLET ONE (23:44)
[2019-09-05] MEDS: POLYETHYLENE GLYCOL 17 GM (MIRALAX) PACK PO SCH (23:50)
[2019-09-06] VITALS: BP 99/60
[2019-09-06] MEDS ORDERED: oxyCODONE/APAP 5/325MG (PERCOCET 5) TABLET ONE (03:28)
[2019-09-06 06:15] LABS: BASOPHILS % (AUTO) 0 % (0-10); EOSINOPHILS # (AUTO) 1.1 10^3/uL (0.0-0.3); EOSINOPHILS % (AUTO) 9 % (0-10); HEMATOCRIT 26 % (35-52); HEMOGLOBIN 8.3 G/DL (11.5-16.0); LYMPHOCYTES # (AUTO) 2.5 X 10^3 (1.0-4.0); LYMPHOCYTES % (AUTO) 21 % (12-44); MEAN CORPUSCULAR HEMOGLOBIN 21 PG (25-34); MEAN CORPUSCULAR HGB CONC 32 G/DL (32-36); MEAN CORPUSCULAR VOLUME 66 FL (80-99); MEAN PLATELET VOLUME 9.6 FL (7.4-10.4); MONOCYTES # (AUTO) 1.5 X 10^3 (0.0-1.0); MONOCYTES % (AUTO) 12 % (0-12); NEUTROPHILS % (AUTO) 58 % (42-75); PLATELET COUNT 546 10^3/uL (130-400); RED CELL DISTRIBUTION WIDTH 22.4 % (10.0-14.5); WHITE BLOOD COUNT 12.1 10^3/uL (4.3-11.0)
[2019-09-06 06:34] LABS: CARBON DIOXIDE 23 MMOL/L (21-32); CHLORIDE 101 MMOL/L (98-107); CREATININE SERUM 0.79 MG/DL (0.60-1.30); POTASSIUM 3.4 MMOL/L (3.6-5.0); SODIUM 133 MMOL/L (135-145)
[2019-09-06 06:35] LABS: ALANINE AMINOTRANSFERASE 10 U/L (0-55); ALBUMIN 3.4 GM/DL (3.2-4.5); ALKALINE PHOSPHATASE 133 U/L (40-136); BUN/CREATININE RATIO 24; CALCIUM 8.3 MG/DL (8.5-10.1); GFR ESTIMATED > 60; GLUCOSE 111 MG/DL (70-105)
[2019-09-06 06:36] LABS: BAND NEUTROPHILS 2 %; NEUTROPHILS % (MANUAL) 57 %
[2019-09-06 06:37] LABS: ANISOCYTOSIS MARKED; EOSINOPHILS % (MANUAL) 6 %; HYPOCHROMASIA MARKED; LYMPHOCYTES % (MANUAL) 32 %; MICROCYTOSIS MARKED; MONOCYTES % (MANUAL) 3 %; POIKILOCYTOSIS MODERATE
[2019-09-06 06:38] LABS: CRENATED RBC MARKED; SCHISTOCYTES MARKED
[2019-09-06] MEDS ORDERED: FLU QUADRIvalent (5+ YOA) 2019-2020 (AFLURIA) 0.5 ML IM ONE ×2 (07:30→15:53)
[2019-09-06 08:00] VITALS: BP 101/65
[2019-09-06] MEDS: POLYETHYLENE GLYCOL 17 GM (MIRALAX) PACK PO SCH (08:12)
[2019-09-06] MEDS: HYDROcodone/APAP 5 MG/325 MG (LORTAB) TAB PO PRN ×3 (08:12→15:38)
[2019-09-06] MEDS ORDERED: NICOTINE 21 MG (NICODERM) PATCH TD SCH (09:00)
[2019-09-06] MEDS ORDERED: PANTOPRAZOLE 40 MG (PROTONIX) VIAL IV SCH (09:00)
[2019-09-06] MEDS ORDERED: LEVETIRACETAM 1,000 MG (KEPPRA) TABLET PO SCH (09:00)
[2019-09-06] MEDS ORDERED: LIDOCAINE UROJET 2% GEL 10 ML PKG ONE (10:32)
[2019-09-06] MEDS ORDERED: LIDOCAINE PF 1% 2 ML AMP ONE (10:33)
[2019-09-06] MEDS ORDERED: LIDOCAINE 1% INJ 20 ML 20 ML VIAL ONE (10:33)
--- NOTE | 2019-09-06 11:14 | Short Stay Summary-Hospitalist ---
History of Present Illness HPI/Chief Complaint patient presented to the emergency room complaining about increasing ascites needing paracentesis. She has a history of ascites secondary to long-standing severe tricuspid insufficiency. 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 She denies night sweats chills or fever reporting abdominal pain generalized and shortness of breath. She denies cough. Date Seen 09/06/19 Time Seen by a Provider: 09:00 Attending Physician Trini Jones MD [facility] Referring Physician Date of Admission Sep 05, 2019 at 21:05 Home Medications & Allergies Home Medications Reviewed patient Home Medication Reconciliation performed by pharmacy medication reconciliations home service technician and/or nursing. Patients Allergies have been reviewed. Allergies Allergies Coded Allergies asenapine (Unverified Allergy, Severe, TOUNGE SWELLING, 03/31/19) Penicillins (Unverified Allergy, Unknown, 03/31/19) Sulfa (Sulfonamide Antibiotics) (Unverified Allergy, Unknown, 03/31/19) erythromycin base (Verified Allergy, Unknown, 03/31/19) peas (Verified Allergy, Unknown, 03/31/19) prochlorperazine (Verified Allergy, Unknown, 03/31/19) promethazine (Verified Allergy, Unknown, 01/31/06) promethazine HCl (Unverified Allergy, Unknown, 06/07/14) propoxyphene (Verified Allergy, Unknown, 11/26/05) Past Twmwzgi-Nrlgia-Ptpqph Hx Past Med/Social Hx: Reviewed and Corrections made Patient Social History Alcohol Use: Past History Number of Drinks Today: CC Alcohol Beverage of Choice: Beer, Cheap Liquor Recreational Drug Use: Yes Drug of Choice: THC Type Used: Cigarettes 2nd Hand Smoke Exposure: Yes Recent Foreign Travel: No Contact w/other who traveled: No Recent Hopitalizations: No Recent Infectious Disease Expo: No Immunizations Up To Date Tetanus Booster (TDap): Unknown Pediatric: Yes Date of Pneumonia Vaccine: Oct 22, 2017 Date of Influenza Vaccine: Aug 22, 2015 Seasonal Allergies Seasonal Allergies: No Past Medical History Surgeries: Abdominal, Appendectomy, Cardiac, Section, Gallbladder, Hysterectomy, Oophorectomy, Orthopedic, Pacemaker, Tubal Ligation, Valve Replacement Respiratory: COPD Currently Using CPAP: No Currently Using BIPAP: No Cardiac: Atrial Fibrillation, Chronic Edema/Swelling, Congenital Heart Disease, Heart Murmur, Hypertension, Irregular Heartbeat, Syncope, Valvular Heart Disease Neurological: Seizure Disorder : No Reproductive: Yes Sexually Transmitted Disease: No HIV/AIDS: No 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: 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 Hysterectomy Genitourinary: Neurogenic Bladder Gastrointestinal: Gastroesophageal Reflux, Gastrointestinal Bleed, Hiatal Hernia, Ulcer, Irritable Bowel Musculoskeletal: Degenerate Disk Disease, Fibromyalgia, Back Injury, Chronic Back Pain, Fractures Loss of Vision: Bilateral Hearing Impairment: Denies Psychosocial: ADD/ADHD, Anxiety, PTSD, Suicide Attempts, Bipolar, Personality Disorder, Depression History of Blood Disorders: No Adverse Reaction to Blood [place]: No Family History Alcoholism 19 MOTHER Depression Depression Diabetes mellitus 19 MOTHER Drug abuse 19 MOTHER FH: cancer of genital organ 19 MOTHER Review of Systems Constitutional: see HPI Physical Exam Physical Exam Vital Signs Vital Signs - First Documented 09/05/19 19:24 Temp 36.6 Pulse 81 Resp 18 B/P (MAP) 96/56 (69) Pulse Ox 96 Capillary Refill : Less Than 3 Seconds Height, Weight, BMI Height: 5'3.00" Weight: 130lbs. 0.0oz. 58.795294bm; 24.41 BMI Method:Stated General Appearance: Mild Distress Respiratory: Chest Non Tender, Lungs Clear, Normal Breath Sounds, No Accessory Muscle Use, No Respiratory Distress Cardiovascular: Regular Rate, Rhythm, No Edema, No Gallop, No JVD, Normal Peripheral Pulses, Other (soft 1 to 2/6 systolic murmur left lower sternal border) Gastrointestinal: Other (diffuse abdominal distention no erythema small umbilical hernia reducible mild generalized discomfort to palpation. Midline well-healed abdominal incision) Extremity: No Pedal Edema Results Results/Procedures Labs Laboratory Tests 09/05/19 19:59 09/06/19 05:45 Patient resulted labs reviewed. Short Stay Diagnosis Discharge Diagnosis-Short Stay Admission Diagnosis 1. Ascites secondary to severe tricuspid insufficiency. Final Discharge Diagnosis same as above Conclusion Plan patient to undergo paracentesis per Dr. Teague. Discussed with him need for cell count and possible culture to follow to rule out SBP. Discharge later today as long as there is no evidence for infection Clinical Quality Measures DVT/VTE Risk/Contraindication: Risk Factor Score Per Nursin RFS Level Per Nursing on Admit: 1=Low/No VTE PPX TRINI JONES MD Sep 06, 2019 11:14 POS
--- NOTE | 2019-09-06 11:18 | NUR ---
Bedside paracentesis preformed by Dr. Teague, consent signed and in the chart. 1700mL of fluid removed. Patient tolerated procedure well.
[2019-09-06 12:00] VITALS: BP 103/65
[2019-09-06 12:33] LABS: GLUCOSE,BODY FLUID 114 MG/DL; TOTAL PROTEIN,BODY FLUID 3.9 G/DL
--- NOTE | 2019-09-06 12:48 | Consultation - Surgery ---
DAHLIA BRITT [facility] 09/06/19 1248: History of Present Illness History of Present Illness Patient Consulted On(tessa/time) 09/06/19 12:47 Date Seen by Provider: Sep 06, 2019 Time Seen by Provider: 10:30 History of Present Illness Tricia is a 38 y/o female that present to the emergency room with increasing ascites and need for paracentesis. Her ascites is due to chronic severe tricus pid insufficiency. General surgery was consulted to perform a paracentesis. The patient has abdominal distention and states that it is painful and is causing her to be short of breath. Nothing makes it better outside of being drained. She stated that she has had this drained before and offers her relief. Imaging showed an increase in the amount of ascites and considerable amount of particulate in the stomach and a large amount of fecal material in the ascending and transverse colon. Allergies and Home Medications Allergies Coded Allergies: asenapine (Unverified Allergy, Severe, TOUNGE SWELLING, 03/31/19) Penicillins (Unverified Allergy, Unknown, 03/31/19) Sulfa (Sulfonamide Antibiotics) (Unverified Allergy, Unknown, 03/31/19) erythromycin base (Verified Allergy, Unknown, 03/31/19) peas (Verified Allergy, Unknown, 03/31/19) prochlorperazine (Verified Allergy, Unknown, 03/31/19) promethazine (Verified Allergy, Unknown, 01/31/06) promethazine HCl (Unverified Allergy, Unknown, 06/07/14) propoxyphene (Verified Allergy, Unknown, 11/26/05) Home Medications Acetaminophen 500 Mg Tablet, 1,000-2,000 MG PO Q6H PRN for PAIN-MILD, (Reported) TAKES 2-4 (500 MG) TABLETS Calcium Carbonate 300 Mg Tab.chew, 600 MG PO DAILY PRN for INDIGESTION, (Reported) TAKES 2 (300 MG) TABLETS Cephalexin 500 Mg Capsule, 500 MG PO BID Prescribed by: JAIME FALL on 04/26/192041 Cyclobenzaprine HCl 10 Mg Tablet, 10 MG PO BID PRN for MUSCLE SPASMS, (Reported) Digoxin 125 Mcg Tablet, 125 MCG PO DAILY, (Reported) Diltiazem HCl 180 Mg Cap.er.24h, 180 MG PO DAILY, (Reported) Hydrocodone Bit/Acetaminophen 1 Tab Tab, 1 EACH PO Q4-6HR PRN for PAIN-MODERATE Prescribed by: MARA LUNA on 03/26/19 1507 Metoprolol Tartrate 25 Mg Tablet, 25 MG PO BID, (Reported) Omeprazole 40 Mg Capsule.dr, 40 MG PO 1800, (Reported) Polyethylene Glycol 3350 17 Gm Powd.pack, 17 GM PO DAILY PRN for CONSTIPATION- 2ND LINE, (Reported) Potassium Chloride 20 Meq Tab.er.prt, 20 MEQ PO 0900,1800, (Reported) Risperidone 1 Mg Tablet, 1 MG PO BID, (Reported) Rivaroxaban 20 Mg Tablet, 20 MG PO DAILY, (Reported) Past Ptihtmm-Nresqh-Kiokgs Hx Patient Social History Alcohol Use: Past History Number of Drinks Today: CC Recreational Drug Use: Yes Drug of Choice: THC Type Used: Cigarettes 2nd Hand Smoke Exposure: Yes Recent Foreign Travel: No Contact w/Someone Who Travel: No Recent Infectious Disease Expo: No Recent Hopitalizations: No Immunizations Up To Date Tetanus Booster (TDap): Unknown PED Vaccines UTD: Yes Date of Pneumonia Vaccine: Oct 22, 2017 Date of Influenza Vaccine: Aug 22, 2015 Seasonal Allergies Seasonal Allergies: No Surgeries History of Surgeries: Yes Surgeries: Abdominal, Appendectomy, Cardiac, Section, Gallbladder, Hysterectomy, Oophorectomy, Orthopedic, Pacemaker, Tubal Ligation, Valve Replacement Respiratory History of Respiratory Disorde: Yes Respiratory Disorders: Asthma, Chronic Bronchitis, COPD, Emphysema Cardiovascular History of Cardiac Disorders: Yes Cardiac Disorders: Atrial Fibrillation, Chronic Edema/Swelling, Congenital Heart Disease, Heart Murmur, Hypertension, Irregular Heartbeat, Syncope, Valvular Heart Disease Neurological History of Neurological Disord: Yes Neurological Disorders: Seizure Disorder Reproductive System : No Hx 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: Yes Sexually Transmitted Disease: No HIV/AIDS: No 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: 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 Genitourinary History of Genitourinary Disor: Yes Genitourinary Disorders: Neurogenic Bladder Gastrointestinal History of Gastrointestinal Di: Yes Gastrointestinal Disorders: Gastroesophageal Reflux, Gastrointestinal Bleed, Hiatal Hernia, Ulcer, Irritable Bowel Musculoskeletal History of Musculoskeletal Dis: Yes Musculoskeletal Disorders: Degenerate Disk Disease, Fibromyalgia, Back Injury, Chronic Back Pain, Fractures Endocrine History of Endocrine Disorders: No HEENT History of HEENT Disorders: Yes Loss of Vision: Bilateral Hearing Impairment: Denies Cancer History of Cancer: No Psychosocial History of Psychiatric Problem: Yes Behavioral Health Disorders: ADD/ADHD, Anxiety, PTSD, Suicide Attempts, Bip olar, Personality Disorder, Depression Integumentary History of Skin or Integumenta: Yes Blood Transfusions History of Blood Disorders: No Adverse Reaction to a Blood Tr: No Family Medical History Family Medial History: Alcoholism 19 MOTHER Depression Depression Diabetes mellitus 19 MOTHER Drug abuse 19 MOTHER FH: cancer of genital organ 19 MOTHER Review of Systems-General Constitutional: No chills, No diaphoresis, No fever; weakness EENTM: no symptoms reported Respiratory: No cough, No hemoptysis; short of breath Cardiovascular: No chest pain, No syncope Gastrointestinal: abdominal pain (diffuse); No constipation, No diarrhea; nausea; No vomiting Genitourinary: no symptoms reported Skin: no symptoms reported Psychiatric/Neurological: No Symptoms Reported Physical Exam-General Problems Physical Exam Vital Signs Vital Signs - First Documented 09/05/19 19:24 Temp 36.6 Pulse 81 Resp 18 B/P (MAP) 96/56 (69) Pulse Ox 96 Capillary Refill : Less Than 3 Seconds General Appearance: WD/WN, no apparent distress Eyes: Bilateral Eye PERRL, Bilateral Eye EOMI HEENT: PERRL/EOMI Neck: non-tender, supple Respiratory: chest non-tender, no respiratory distress, no accessory muscle use Cardiovascular: normal peripheral pulses Peripheral Pulses: 2+ Dorsalis Pedis (R), 2+ Left Dors-Pedis (L), 2+ Radial Pulses (R), 2+ Radial Pulses (L) Gastrointestinal: distended, tenderness Extremities: normal range of motion, non-tender, no calf tenderness Skin: normal color, warm/dry Lymphatic: no adenopathy Data Review Labs Laboratory Tests 09/05/19 19:30: Urine Color YELLOW, Urine Clarity CLEAR, Urine pH 6.5, Urine Specific [place] <=1.005, Urine Protein NEGATIVE, Urine Glucose (UA) NEGATIVE, Urine Ketones NEGATIVE, Urine Nitrite NEGATIVE, Urine Bilirubin NEGATIVE, Urine Urobilinogen 0.2, Urine Leukocyte Esterase NEGATIVE, Urine RBC (Auto) NEGATIVE, Urine RBC NONE, Urine WBC NONE, Urine Squamous Epithelial Cells 5-10, Urine Crystals PRESENTH, Urine Amorphous Sediment RARE ESTELITA URATESH, Urine Bacteria TRACE, Urine Casts NONE, Urine Mucus NEGATIVE, Urine Culture Indicated NO, Urine Opiates Screen NEGATIVE, Urine Oxycodone Screen NEGATIVE, Urine Methadone Screen NEGATIVE, Urine Propoxyphene Screen NEGATIVE, Urine Barbiturates Screen NEGATIVE, Ur Tricyclic Antidepressants Screen POSITIVEH, Urine Phencyclidine Sc reen NEGATIVE, Urine Amphetamines Screen NEGATIVE, Urine Methamphetamines Screen NEGATIVE, Urine Benzodiazepines Screen NEGATIVE, Urine Cocaine Screen NEGATIVE, Urine Cannabinoids Screen POSITIVEH 09/05/19 19:59: White Blood Count 12.8H, Red Blood Count 3.87L, Hemoglobin 7.6L, Hematocrit 25L, Mean Corpuscular Volume 65L, Mean Corpuscular Hemoglobin 20L, Mean Corpuscular H emoglobin Concent 30L, Red Cell Distribution Width 20.7H, Platelet Count 519H, Mean Platelet Volume 9.4, Neutrophils (%) (Auto) 63, Lymphocytes (%) (Auto) 19, Monocytes (%) (Auto) 11, Eosinophils (%) (Auto) 7, Basophils (%) (Auto) 1, Neutrophils # (Auto) 8.1H, Lymphocytes # (Auto) 2.4, Monocytes # (Auto) 1.4H, Eosinophils # (Auto) 0.9H, Basophils # (Auto) 0.1, Sodium Level 136, Potassium Level 3.5L, Chloride Level 101, Carbon Dioxide Level 23, Anion Gap 12, Blood Urea Nitrogen 15, Creatinine 0.87, Estimat Glomerular Filtration Rate > 60, BUN/Creatinine Ratio 17, Glucose Level 95, Calcium Level 8.4L, Corrected Calcium 8.7, Magnesium Level 1.6, Total Bilirubin 0.4, Aspartate Amino Transf (AST/SGOT) 16, Alanine Aminotransferase (ALT/SGPT) 7, Alkaline Phosphatase 138H, B-Type Natriuretic Peptide 115.6H, Total Protein 7.3, Albumin 3.6 09/06/19 05:45: White Blood Count 12.1H, Red Blood Count 3.99L, Hemoglobin 8.3L, Hematocrit 26L, Mean Corpuscular Volume 66L, Mean Corpuscular Hemoglobin 21L, Mean Corpuscular Hemoglobin Concent 32, Red Cell Distribution Width 22.4H, Platelet Count 546H, Mean Platelet Volume 9.6, Neutrophils (%) (Auto) 58, Lymphocytes (%) (Auto) 21, Monocytes (%) (Auto) 12, Eosinophils (%) (Auto) 9, Basophils (%) (Auto) 0, Neutrophils # (Auto) 7.0, Lymphocytes # (Auto) 2.5, Monocytes # (Auto) 1.5H, Eosinophils # (Auto) 1.1H, Basophils # (Auto) 0.0, Sodium Level 133L, Potassium Level 3.4L, Chloride Level 101, Carbon Dioxide Level 23, Anion Gap 9, Blood Urea Nitrogen 19H, Creatinine 0.79, Estimat Glomerular Filtration Rate > 60, BUN/Creatinine Ratio 24, Glucose Level 111H, Calcium Level 8.3L, Corrected Calcium 8.8, Total Bilirubin 1.0, Aspartate Amino Transf (AST/SGOT) 16, Alanine Aminotransferase (ALT/SGPT) 10, Alkaline Phosphatase 133, Total Protein 7.0, Albumin 3.4, Neutrophils % (Manual) 57, Lymphocytes % (Manual) 32, Monocytes % (Manual) 3, Eosinophils % (Manual) 6, Band Neutrophils 2, Hypochromasia MARKED, Poikilocytosis MODERATE, Anisocytosis MARKED, Microcytosis MARKED, Sickle Cells , Crenated Cell MARKED, Schistocytes MARKED 09/06/19 11:15: Body Fluid Glucose 114, Body Fluid Total Protein 3.9 Assessment/Plan Assessment/Plan Assessment/Plan Ascites secondary to severe chronic tricuspid insufficiency, Leukocytosis, Anemia, Congenital heart disease We performed U/S guided paracentesis and sent the drained fluid for labs. The patient was informed of the risk and benefits of the procedure and acknowledged and understood them and wished to proceed. Clinical Quality Measures DVT/VTE Risk/Contraindication: Risk Factor Score Per Nursin RFS Level Per Nursing on Admit: 1=Low/No VTE PPX SERJIO GREWAL DO 09/06/19 5843: History of Present Illness History of Present Illness History of Present Illness consult for possible paracentesis. Patient is a 38 year old female with recurrent ascites. Patient abdomen increasing in size and generalized abdominal discomfort. Patient also experiencing shortness of breath due to increased ascites. Nothing is making things better and time is making it worse. Pain is moderate. No radiation. Denie n/v fever sweats chills or chest pain at this time. Allergies and Home Medications Allergies Coded Allergies: asenapine (Unverified Allergy, Severe, TOUNGE SWELLING, 03/31/19) Penicillins (Unverified Allergy, Unknown, 03/31/19) Sulfa (Sulfonamide Antibiotics) (Unverified Allergy, Unknown, 03/31/19) erythromycin base (Verified Allergy, Unknown, 03/31/19) peas (Verified Allergy, Unknown, 03/31/19) prochlorperazine (Verified Allergy, Unknown, 03/31/19) promethazine (Verified Allergy, Unknown, 01/31/06) promethazine HCl (Unverified Allergy, Unknown, 06/07/14) propoxyphene (Verified Allergy, Unknown, 11/26/05) Home Medications Acetaminophen 500 Mg Tablet, 1,000-2,000 MG PO Q6H PRN for PAIN-MILD, (Reported) TAKES 2-4 (500 MG) TABLETS Calcium Carbonate 300 Mg Tab.chew, 600 MG PO DAILY PRN for INDIGESTION, (Reported) TAKES 2 (300 MG) TABLETS Cephalexin 500 Mg Capsule, 500 MG PO BID Prescribed by: JAIME FALL on 04/26/192041 Cyclobenzaprine HCl 10 Mg Tablet, 10 MG PO BID PRN for MUSCLE SPASMS, (Reported) Digoxin 125 Mcg Tablet, 125 MCG PO DAILY, (Reported) Diltiazem HCl 180 Mg Cap.er.24h, 180 MG PO DAILY, (Reported) Hydrocodone Bit/Acetaminophen 1 Tab Tab, 1 EACH PO Q4-6HR PRN for PAIN-MODERATE Prescribed by: MARA LUNA on 03/26/19 1507 Metoprolol Tartrate 25 Mg Tablet, 25 MG PO BID, (Reported) Omeprazole 40 Mg Capsule.dr, 40 MG PO 1800, (Reported) Polyethylene Glycol 3350 17 Gm Powd.pack, 17 GM PO DAILY PRN for CONSTIPATION- 2ND LINE, (Reported) Potassium Chloride 20 Meq Tab.er.prt, 20 MEQ PO 0900,1800, (Reported) Risperidone 1 Mg Tablet, 1 MG PO BID, (Reported) Rivaroxaban 20 Mg Tablet, 20 MG PO DAILY, (Reported) Patient Home Medication List Home Medication List Reviewed: Yes Past [id number]-[id number]-Gxsfmg Hx Patient Social History Recreational Drug Use: Yes Type Used: Cigarettes 2nd Hand Smoke Exposure: Yes Recent Foreign Travel: No Contact w/Someone Who Travel: No Recent Infectious Disease Expo: No Recent Hopitalizations: No Immunizations Up To Date Tetanus Booster (TDap): Unknown Seasonal Allergies Seasonal Allergies: No Surgeries History of Surgeries: Yes Surgeries: Abdominal, Appendectomy, Cardiac, Section, Gallbladder, Hysterectomy, Oophorectomy, Orthopedic, Pacemaker, Tubal Ligation, Valve Replacement Respiratory Respiratory Disorders: Asthma, Chronic Bronchitis, COPD, Emphysema Cardiovascular History of Cardiac Disorders: Yes Cardiac Disorders: Atrial Fibrillation, Chronic Edema/Swelling, Congenital Heart Disease, Heart Murmur, Hypertension, Irregular Heartbeat, Syncope, Valv ular Heart Disease Reproductive System : No Hx 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: Yes Sexually Transmitted Disease: No HIV/AIDS: No 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: 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 Genitourinary History of Genitourinary Disor: Yes Gastrointestinal History of Gastrointestinal Di: Yes Gastrointestinal Disorders: Gastroesophageal Reflux, Gastrointestinal Bleed, Hiatal Hernia, Ulcer, Irritable Bowel Musculoskeletal History of Musculoskeletal Dis: Yes Musculoskeletal Disorders: Degenerate Disk Disease, Fibromyalgia, Back Injury, Chronic Back Pain, Fractures Endocrine History of Endocrine Disorders: No HEENT History of HEENT Disorders: Yes Hearing Impairment: Denies Cancer History of Cancer: No Psychosocial History of Psychiatric Problem: Yes Behavioral Health Disorders: ADD/ADHD, Anxiety, PTSD, Suicide Attempts, Bipolar, Personality Disorder, Depression Integumentary History of Skin or Integumenta: Yes Blood Transfusions History of Blood Disorders: No Adverse Reaction to a Blood Tr: No Family Medical History Significant Family History: No Pertinent Family Hx Family Medial History: Alcoholism 19 MOTHER Depression Depression Diabetes mellitus 19 MOTHER Drug abuse 19 MOTHER FH: cancer of genital organ 19 MOTHER Review of Systems-General Constitutional: weakness EENTM: no symptoms reported Respiratory: short of breath Genitourinary: no symptoms reported Musculoskeletal: no symptoms reported Skin: no symptoms reported Psychiatric/Neurological: No Symptoms Reported Physical Exam-General Problems Physical Exam General Appearance: no apparent distress HEENT: PERRL/EOMI Neck: non-tender, supple Respiratory: chest non-tender, no accessory muscle use Cardiovascular: normal peripheral pulses, regular rate, rhythm Gastrointestinal: distended, tenderness (minimal general) Rectal: deferred Back: no CVA tenderness Extremities: normal range of motion, non-tender Neurologic/Psychiatric: foundry hand II-XII nml as tested, no motor/sensory deficits, alert, normal mood/affect, oriented x 3 Skin: normal color, warm/dry Lymphatic: no adenopathy Assessment/Plan Assessment/Plan Assessment/Plan Recurrent symptomatic ascites secondary to severe chronic tricuspid insufficiency, Leukocytosis, Anemia, Congenital heart disease Shortness of breath secondary to ascites patient discussed risks and benefits of having paracentesis performed and she understands risks and benefits and wishes to proceed. will perform u/s at bedside. patient to proceed as planned. will send fluid for cell counts and culture Supervisory-Addendum Brief Verification & Attestation Participated in pt care: history, MDM, physical Personally performed: exam, history, MDM, supervision of care Care discussed with: Medical Student Procedures: n/a Results interpretation: Verified all documentation Verification and Attestation of Medical Student E/M Service A medical student performed and documented this service in my presence. I reviewed and verified all information documented by the medical student and made modifications to such information, when appropriate. I personally performed the physical exam and medical decision making. Serjio Grewal, Sep 06, 2019,13:40 DAHLIA BR[facility] Sep 06, 2019 12:48 SERJIO LY DO Sep 06, 2019 13:39 POS
[2019-09-06 13:20] LABS: BODY FLUID APPEARENCE MKD CLDY; BODY FLUID COLOR YELLOW; BODY FLUID SOURCE PERITON
[2019-09-06 15:01] LABS: BF OTHER CELLS 0 %; LYMPHOCYTES,BODY FLUID 94 %
[2019-09-06 15:23] LABS: BODY FLUID RBC COUNT 161 /uL; BODY FLUID WBC TOTAL COUNT 168 /uL
[2019-09-06 16:00] VITALS: BP 137/86
--- NOTE | 2019-09-06 22:01 | OPERATIVE REPORT ---
DATE OF SERVICE: 09/06/2019 PREOPERATIVE DIAGNOSIS: Recurrent symptomatic ascites. POSTOPERATIVE DIAGNOSIS: Recurrent symptomatic ascites. PROCEDURE: Ultrasound and ultrasound-guided paracentesis. SURGEON: Cherelle Teague DO ANESTHESIA: A 1% lidocaine, 5 mL. ESTIMATED BLOOD LOSS: Minimal. COMPLICATIONS: None. INDICATIONS: The patient is a 38-year-old female with recurrent abdominal ascites. She understands risks and benefits of procedure and wished to proceed with procedure. Consent was signed in the chart. DESCRIPTION OF PROCEDURE: The patient's abdomen was inspected with ultrasound demonstrating largest pocket and lots of ascitic fluid. Once the largest pocket was isolated, the area was prepped and draped in sterile fashion. Timeout was performed. The local anesthetic was then infiltrated in this area. An 11-blade scalpel was used to make a skin incision and the [id number] needle and catheter were inserted under guidance of the ultrasound. The straw colored fluid was returned. The catheter was then advanced. A total of 1700 mL of fluid was withdrawn off the abdomen. The patient's breathing improved and her abdominal distention and discomfort improved. The catheter was then removed and sterile bandage was applied. The patient tolerated procedure well without any complications. Job ID: [id number] DocumentID: [id number] Dictated Date: 09/06/2019 12:43:03 General Clerk Date: 09/06/2019 22:00:43 Dictated By: CHERELLE TEAGUE DO
== END 2019-09-06 15:47 | disposition home or self-care (01) ==
LOC: EDUNIT# 19:11 → ER 19:12 → UNDOADMOB 21:05 → 4TH 21:05 → UNDODISOB 09-06 16:54
PROVIDERS: ADMIT Internal Medicine; ATTEND Internal Medicine
DX: R18.8 Other ascites (principal); F17.210 Nicotine dependence, cigarettes, uncomplicated; J44.9 Chronic obstructive pulmonary disease, unspecified; I48.91 Unspecified atrial fibrillation; I10 Essential (primary) hypertension; G40.909 Epilepsy, unspecified, not intractable, without status epilepticus; K21.9 Gastro-esophageal reflux disease without esophagitis; K58.9 Irritable bowel syndrome, unspecified; G89.29 Other chronic pain; M54.9 Dorsalgia, unspecified; M79.7 Fibromyalgia; F90.9 Attention-deficit hyperactivity disorder, unspecified type; F41.9 Anxiety disorder, unspecified; F32.9 Major depressive disorder, single episode, unspecified; Z88.0 Allergy status to penicillin; Z88.2 Allergy status to sulfonamides; Z88.1 Allergy status to other antibiotic agents; Z88.8 Allergy status to other drugs, medicaments and biological substances; Z91.018 Allergy to other foods; Z90.49 Acquired absence of other specified parts of digestive tract; Z90.710 Acquired absence of both cervix and uterus; Z90.721 Acquired absence of ovaries, unilateral; Z95.2 Presence of prosthetic heart valve; Z95.0 Presence of cardiac pacemaker; Z91.5 Personal history of self-harm
CPT/HCPCS: 36415; 71045; 74176; 80053; 80306; 81000; 82945; 83735; 83880; 84157; 85007; 85025; 85027; 86850; 86900; 86901; 86920; 87070; 87205; 89051; 96374; G0378

== ENCOUNTER 2019-09-09 18:59 | Inpatient (IN) | payer MEDICAID ==
[~2019-09-09] VITALS: Ht 159 cm; Wt 66.1 kg
[2019-09-09 19:36] LABS: BASOPHILS # (AUTO) 0.1 10^3/uL (0.0-0.1); BASOPHILS % (AUTO) 0 % (0-10); EOSINOPHILS # (AUTO) 1.4 10^3/uL (0.0-0.3); EOSINOPHILS % (AUTO) 9 % (0-10); HEMATOCRIT 28 % (35-52); HEMOGLOBIN 8.7 G/DL (11.5-16.0); LYMPHOCYTES # (AUTO) 2.6 X 10^3 (1.0-4.0); LYMPHOCYTES % (AUTO) 16 % (12-44); MEAN CORPUSCULAR HEMOGLOBIN 21 PG (25-34); MEAN CORPUSCULAR HGB CONC 32 G/DL (32-36); MEAN CORPUSCULAR VOLUME 67 FL (80-99); MEAN PLATELET VOLUME 9.7 FL (7.4-10.4); MONOCYTES # (AUTO) 1.8 X 10^3 (0.0-1.0); MONOCYTES % (AUTO) 11 % (0-12); NEUTROPHILS # (AUTO) 9.9 X 10^3 (1.8-7.8); NEUTROPHILS % (AUTO) 63 % (42-75); PLATELET COUNT 614 10^3/uL (130-400); RED CELL DISTRIBUTION WIDTH 23.9 % (10.0-14.5); WHITE BLOOD COUNT 15.8 10^3/uL (4.3-11.0)
[2019-09-09 19:45] LABS: CLARITY,URINE CLEAR; COLOR,URINE YELLOW; GLUCOSE, URINE (UA) NEGATIVE (NEGATIVE); KETONES,URINE NEGATIVE (NEGATIVE); LEUKOCYTE ESTERASE ,URINE NEGATIVE (NEGATIVE); NITRITE,URINE NEGATIVE (NEGATIVE); PH,URINE 6.5 (5-9); PROTEIN,URINE NEGATIVE (NEGATIVE)
[2019-09-09 19:56] LABS: BACTERIA,URINE NEGATIVE /HPF; BILIRUBIN,URINE 1+ (NEGATIVE)
[2019-09-09 19:57] LABS: ANISOCYTOSIS MODERATE; BAND NEUTROPHILS 1 %; EOSINOPHILS % (MANUAL) 7 %; HYPOCHROMASIA MARKED; LYMPHOCYTES % (MANUAL) 14 %; METAMYELOCYTES % 2 %; MICROCYTOSIS MODERATE; MONOCYTES % (MANUAL) 4 %; NEUTROPHILS % (MANUAL) 72 %; NUCLEATED RED BLOOD CELLS 1
[2019-09-09 19:58] LABS: ACANTHOCYTES MODERATE; SCHISTOCYTES SLIGHT
--- NOTE | 2019-09-09 20:26 | ED GI ---
General Chief Complaint: Abdominal/GI Problems Stated Complaint: STOMACH SWOLLEN, PAIN Nursing Triage Note: PT WAS IN THIS HOSP FOR HEART FAILURE, RELEASED SUNDAY AFTERNOON, HAD FLUID DRAINED FROM HER ABD, CC OF INCREASED FLUID ON ABD, SCHEDULED WITH DR. HARLEY FOR TOMORROW BUT FEELS SHE NEEDS IT DONE TONIGHT. Sepsis Screen: No Definite Risk Source of Information: Patient Exam Limitations: No Limitations History of Present Illness Date Seen by Provider: Sep 09, 2019 Time Seen by Provider: 20:25 Initial Comments to ER with worsening abdominal distention and pain, history of ascites secondary to heart failure. She denies fevers or chills. Timing/Duration: 1-2 Days Severity/Quality: Moderate Location: Generalized Abdomen Radiation: No Radiation Activities at Onset: None Associated Symptoms: Denies Symptoms Allergies and Home Medications Allergies Coded Allergies: asenapine (Unverified Allergy, Severe, TOUNGE SWELLING, 03/31/19) Penicillins (Unverified Allergy, Unknown, 03/31/19) Sulfa (Sulfonamide Antibiotics) (Unverified Allergy, Unknown, 03/31/19) erythromycin base (Verified Allergy, Unknown, 03/31/19) peas (Verified Allergy, Unknown, 03/31/19) prochlorperazine (Verified Allergy, Unknown, 03/31/19) promethazine (Verified Allergy, Unknown, 01/31/06) promethazine HCl (Unverified Allergy, Unknown, 06/07/14) propoxyphene (Verified Allergy, Unknown, 11/26/05) Home Medications Albuterol Sulfate 6.7 Gm Hfa.aer.ad, 2 PUFF INH Q4H PRN for SHORTNESS OF BREATH, (Reported) Buspirone HCl 10 Mg Tablet, 10 MG PO BID, (Reported) LAST FILLED #60 07-28-19 Cyclobenzaprine HCl 10 Mg Tablet, 10 MG PO BID, (Reported) Digoxin 125 Mcg Tablet, 125 MCG PO DAILY, (Reported) LAST FILLED #30 07-28-19 Diltiazem HCl 180 Mg Cap.er.24h, 180 MG PO DAILY, (Reported) LAST FILLED #30 07-28-19 Escitalopram Oxalate 20 Mg Tablet, 20 MG PO DAILY, (Reported) LAST FILLED #30 -7-19 Furosemide 20 Mg Tablet, 40 MG PO DAILY, (Reported) TAKES 2 (20MG) TABLETS Hydroxyzine Pamoate 25 Mg Capsule, 25 MG PO BID, (Reported) Levetiracetam 1,000 Mg Tablet, 1,000 MG PO BID, (Reported) Metoprolol Tartrate 25 Mg Tablet, 25 MG PO BID, (Reported) LAST FILLED #60 06-12-19 Mirtazapine 15 Mg Tablet, 15 MG PO HS, (Reported) LAST FILLED #30 06-30-19 Omeprazole 40 Mg Capsule.dr, 40 MG PO HS, (Reported) LAST FILLED 06-12-19 #30 Polyethylene Glycol 3350 17 Gm Powd.pack, 17 GM PO BID PRN for CONSTIPATION-2ND LINE, (Reported) Potassium Chloride 20 Meq Tablet.er, 20 MEQ PO DAILY, (Reported) LAST FILLED #30 07-28-19 Risperidone 1 Mg Tablet, 1 MG PO BID, (Reported) Rivaroxaban 20 Mg Tablet, 20 MG PO DAILY, (Reported) Patient Home Medication List Home Medication List Reviewed: Yes Review of Systems Review of Systems Constitutional: see HPI EENTM: No Symptoms Reported Respiratory: No Symptoms Reported Cardiovascular: No Symptoms Reported Gastrointestinal: See HPI, Abdominal Pain Genitourinary: No Symptoms Reported Musculoskeletal: no symptoms reported Skin: no symptoms reported Psychiatric/Neurological: No Symptoms Reported Endocrine: No Symptoms Reported Past Eaqrscp-Ilxldp-Xoybud Hx Patient Social History Alcohol Use: Denies Use Number of Drinks Today: CC Alcohol Beverage of Choice: Beer, Cheap Liquor Recreational Drug Use: Yes (CRYSTAL, WEED, PILLS ET CLEAN FOR 2 MONTHS) Drug of Choice: THC Type Used: Cigarettes 2nd Hand Smoke Exposure: Yes Recent Foreign Travel: No Contact w/Someone Who Travel: No Recent Infectious Disease Expo: No Recent Hopitalizations: Yes (09/06/19) Immunizations Up To Date Tetanus Booster (TDap): Unknown PED Vaccines UTD: Yes Date of Pneumonia Vaccine: Oct 22, 2017 Date of Influenza Vaccine: Aug 22, 2015 Seasonal Allergies Seasonal Allergies: No Past Medical History Surgeries: Yes Abdominal, Appendectomy, Cardiac, Section, Gallbladder, Hysterectomy, Oophorectomy, Orthopedic, Pacemaker, Tubal Ligation, Valve Replacement Respiratory: Yes Asthma, Chronic Bronchitis, COPD, Emphysema Currently Using CPAP: No Currently Using BIPAP: No Cardiac: Yes Atrial Fibrillation, Chronic Edema/Swelling, Congenital Heart Disease, Heart Murmur, Hypertension, Irregular Heartbeat, Syncope, Valvular Heart Disease Neurological: Yes Seizure Disorder : No 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: Yes 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: 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 Sexually Transmitted Disease: No HIV/AIDS: No Genitourinary: Yes Neurogenic Bladder Gastrointestinal: Yes Gastroesophageal Reflux, Gastrointestinal Bleed, Hiatal Hernia, Ulcer, Irritable Bowel Musculoskeletal: Yes Degenerate Disk Disease, Fibromyalgia, Back Injury, Chronic Back Pain, Fractures Endocrine: No HEENT: Yes Loss of Vision: Bilateral Hearing Impairment: Denies Cancer: No Psychosocial: Yes ADD/ADHD, Anxiety, PTSD, Suicide Attempts, Bipolar, Personality Disorder, Depression Integumentary: Yes Blood Disorders: No Adverse Reaction/Blood Tranf: No Family Medical History Alcoholism 19 MOTHER Depression Depression Diabetes mellitus 19 MOTHER Drug abuse 19 MOTHER FH: cancer of genital organ 19 MOTHER No Pertinent Family Hx Physical Exam Vital Signs Vital Signs - First Documented 09/09/19 19:06 Temp 37.0 Pulse 78 Resp 20 B/P (MAP) 113/73 (86) Pulse Ox 98 O2 Delivery Room Air Capillary Refill : Less Than 3 Seconds Height/Weight/BMI Height: 5'3.00" Weight: 130lbs. 0.0oz. 58.699215kr; 24.00 BMI Method:Stated General Appearance: WD/WN, no apparent distress HEENT: PERRL/EOMI, normal ENT inspection Respiratory: no respiratory distress, no accessory muscle use Cardiovascular: No JVD Gastrointestinal: normal bowel sounds, soft, distended Extremities: normal range of motion, non-tender Neurologic/Psychiatric: alert, normal mood/affect, oriented x 3 Skin: normal color, warm/dry Focused Exam Lactate Level 09/09/19 22:30: Lactic Acid Level 0.58 Lactic Acid Level Laboratory Tests Test 09/09/19 22:30 Lactic Acid Level 0.58 MMOL/L (0.50-2.00) Progress/Results/Core Measures Results/Orders Lab Results Laboratory Tests Test 09/09/19 19:21 09/09/19 19:27 09/09/19 19:35 09/09/19 21:09 Range/Units White Blood Count 15.8 H 4.3-11.0 10^3/uL Red Blood Count 4.12 L 4.35-5.85 10^6/uL Hemoglobin 8.7 L 11.5-16.0 G/DL Hematocrit 28 L 35-52 % Mean Corpuscular Volume 67 L 80-99 FL Mean Corpuscular Hemoglobin 21 L 25-34 PG Mean Corpuscular Hemoglobin Concent 32 32-36 G/DL Red Cell Distribution Width 23.9 H 10.0-14.5 % Platelet Count 614 H 130-400 10^3/uL Mean Platelet Volume 9.7 7.4-10.4 FL Neutrophils (%) (Auto) 63 42-75 % Lymphocytes (%) (Auto) 16 12-44 % Monocytes (%) (Auto) 11 0-12 % Eosinophils (%) (Auto) 9 0-10 % Basophils (%) (Auto) 0 0-10 % Neutrophils # (Auto) 9.9 H 1.8-7.8 X 10^3 Lymphocytes # (Auto) 2.6 1.0-4.0 X 10^3 Monocytes # (Auto) 1.8 H 0.0-1.0 X 10^3 Eosinophils # (Auto) 1.4 H 0.0-0.3 10^3/uL Basophils # (Auto) 0.1 0.0-0.1 10^3/uL Neutrophils % (Manual) 72 % Lymphocytes % (Manual) 14 % Monocytes % (Manual) 4 % Eosinophils % (Manual) 7 % Metamyelocytes % 2 % Band Neutrophils 1 % Nucleated Red Blood Cells 1 Hypochromasia MARKED Anisocytosis MODERATE Microcytosis MODERATE Acanthocytes MODERATE Schistocytes SLIGHT Sodium Level 135 135-145 MMOL/L Potassium Level 3.8 3.6-5.0 MMOL/L Chloride Level 103 98-107 MMOL/L Carbon Dioxide Level 21 21-32 MMOL/L Anion Gap 11 5-14 MMOL/L Blood Urea Nitrogen 9 7-18 MG/DL Creatinine 0.72 0.60-1.30 MG/DL Estimat Glomerular Filtration Rate > 60 BUN/Creatinine Ratio 13 Glucose Level 85 70-105 MG/DL Calcium Level 8.0 L 8.5-10.1 MG/DL Corrected Calcium 8.4 L 8.5-10.1 MG/DL Total Bilirubin 0.5 0.1-1.0 MG/DL Aspartate Amino Transf (AST/SGOT) 22 5-34 U/L Alanine Aminotransferase (ALT/SGPT) 15 0-55 U/L Alkaline Phosphatase 155 H 40-136 U/L Total Protein 7.3 6.4-8.2 GM/DL Albumin 3.5 3.2-4.5 GM/DL Urine Color YELLOW Urine Clarity CLEAR Urine pH 6.5 5-9 Urine Specific [place] 1.015 L 1.016-1.022 Urine Protein NEGATIVE NEGATIVE Urine Glucose (UA) NEGATIVE NEGATIVE Urine Ketones NEGATIVE NEGATIVE Urine Nitrite NEGATIVE NEGATIVE Urine Bilirubin 1+ H NEGATIVE Urine Urobilinogen 1.0 < = 1.0 MG/DL Urine Leukocyte Esterase NEGATIVE NEGATIVE Urine RBC (Auto) NEGATIVE NEGATIVE Urine RBC NONE /HPF Urine WBC NONE /HPF Urine Squamous Epithelial Cells 5-10 /HPF Urine Crystals NONE /LPF Urine Bacteria NEGATIVE /HPF Urine Casts NONE /LPF Urine Mucus SMALL H /LPF Urine Culture Indicated YES Urine Opiates Screen NEGATIVE NEGATIVE Urine Oxycodone Screen NEGATIVE NEGATIVE Urine Methadone Screen NEGATIVE NEGATIVE Urine Propoxyphene Screen NEGATIVE NEGATIVE Urine Barbiturates Screen NEGATIVE NEGATIVE Ur Tricyclic Antidepressants Screen POSITIVE H NEGATIVE Urine Phencyclidine Screen NEGATIVE NEGATIVE Urine Amphetamines Screen NEGATIVE NEGATIVE Urine Methamphetamines Screen NEGATIVE NEGATIVE Urine Benzodiazepines Screen NEGATIVE NEGATIVE Urine Cocaine Screen NEGATIVE NEGATIVE Urine Cannabinoids Screen POSITIVE H NEGATIVE Body Fluid Source ASCITES FLUID Body Fluid Color WHITE Body Fluid Appearance VERY CLOUDY Body Fluid WBC 241 /uL Body Fluid RBC 943 /uL Body Fluid Polynuclear WBCs 30 % Body Fluid Mononuclear WBCs 14 % Body Fluid Lymphocytes 50 % Body Fluid Other Cells 6 % Test 09/09/19 22:30 Range/Units Lactic Acid Level 0.58 0.50-2.00 MMOL/L Micro Results Microbiology 09/09/19 Blood Culture - Preliminary, Resulted No growth 09/09/19 Gram Stain - Final, Resulted 09/09/19 Body Fluid Culture - Preliminary, Resulted No growth 09/09/19 Urine Culture - Final, Complete NO GROWTH My Orders Orders - SUDHIR SCOTT APRN Cbc With Automated Diff (09/09/19 19:18) Manual Differential (09/09/19 19:21) Hydrocodone/Apap 10/325 Tablet (Lortab 1 (09/09/19 20:30) Ketorolac Injection (Toradol Injection) (09/09/19 20:30) Alprazolam Tablet (Xanax Tablet) (09/09/19 20:45) Lidocaine/Epi 2% 1:100,000 (Xylocaine/Ep (09/09/19 21:00) Body Fluid Cell Count (09/09/19 20:52) Body Fluid Culture (09/09/19 20:52) Lidocaine/Epi 2% 1:100,000 (Xylocaine/Ep (09/09/19 20:53) Drug Screen Stat (Urine) (09/09/19 21:17) Ed Iv/Invasive Line Start (09/09/19 21:50) Comprehensive Metabolic Panel (09/09/19 21:50) Ceftriaxone For Iv Use (Rocephin For I (09/09/19 22:00) Albumin 25% 25 Gm/100 Ml (Albumin 25% 25 (09/09/19 22:00) Albumin 25% 25 Gm/100 Ml (Albumin 25% 25 (09/09/19 22:00) Chest 1 View, Ap/Pa Only (09/09/19 22:20) Hydromorphone Injection (Dilaudid Inject (09/09/19 22:30) Blood Culture (09/09/19 22:24) Lactic Acid Analyzer (09/09/19 22:24) Medications Given in ED Vital Signs/I&O 09/09/19 19:06 Temp 37.0 Pulse 78 Resp 20 B/P (MAP) 113/73 (86) Pulse Ox 98 O2 Delivery Room Air Blood Pressure Mean: 86 POS Departure Communication (Admissions) Time/Spoke to Admitting Phy: 22:35 Time/Spoke to Consulting Phy: 22:28 Dr. Teague will consult She has a chronic leukocytosis. Dr. Teague has been here, did a paracentesis right lower abdomen 2liters of cloudy yellow ascitic fluid collected. lab called to report that this cloudy yellow fluid had numerous bacteria seen while doing the differential/cell count with a large number of white cells. We will empiri edgardo treat with Rocephin for bacterial peritonitis.. She has poor IV access so I did start a right central line ultrasound-guided. . Given her extensive cardiac history she'll also need cardiology consult. Impression Primary Impression: Spontaneous bacterial peritonitis Additional Impression: CHF (congestive heart failure) Disposition: ADMITTED INPATIENT Condition: Stable Admissions Decision to Admit Reason: Admit from ER (General) Decision to Admit/Date: Sep 10, 2019 Time/Decision to Admit Time: 22:54 Departure-Patient Inst. Referrals: [facility] (PCP) Primary Care Physician FRANCHESKA HEADLEY (Family) Primary Care Physician SUDHIR SCOTT APRN Sep 09, 2019 20:26 POS
[2019-09-09] MEDS ORDERED: KETOROLAC 60 MG/2 ML VIAL IM ONE (20:30)
[2019-09-09] MEDS ORDERED: HYDROcodone/APAP 10 MG/325 MG (LORTAB) TAB PO ONE (20:30)
[2019-09-09] MEDS ORDERED: ALPRAZolam 0.5 MG (XANAX) TAB PO SCH (20:45)
[2019-09-09] MEDS ORDERED: LIDOCAINE/EPI 2% 1:100,00 (XYLOCAINE) 20 ML VIAL ONE (20:53)
[2019-09-09] MEDS ORDERED: LIDOCAINE/EPI 2% 1:100,00 (XYLOCAINE) 20 ML VIAL INJ ONE (21:00)
[2019-09-09 21:51] LABS: AMPHETAMINE SCREEN, URINE NEGATIVE (NEGATIVE); BARBITURATE SCREEN URINE NEGATIVE (NEGATIVE); BENZODIAZEPINES SCREEN URINE NEGATIVE (NEGATIVE); CANNABINOID SCREEN, URINE POSITIVE (NEGATIVE); COCAINE SCREEN URINE NEGATIVE (NEGATIVE); METHADONE STAT NEGATIVE (NEGATIVE); METHAMPHETAMINE SCREEN URINE S NEGATIVE (NEGATIVE); OPIATE SCREEN URINE NEGATIVE (NEGATIVE); OXYCODONE STAT NEGATIVE (NEGATIVE); TRICYCLIC ANTIDEPRESSANTS SCRE POSITIVE (NEGATIVE)
[2019-09-09 21:52] LABS: PROPOXYPHENE STAT NEGATIVE (NEGATIVE)
[2019-09-09] MEDS ORDERED: ALBUMIN 25% 25 GM/100 ML 100 ML IV ONE ×2 (22:00)
[2019-09-09] MEDS ORDERED: cefTRIAXone FOR IV USE 2,000 MG in WATER (STERILE) FOR INJECTION 20 ML IV ONE (22:00)
[2019-09-09 22:02] LABS: BODY FLUID RBC COUNT 943 /uL; BODY FLUID SOURCE ASCITES FLUID; BODY FLUID WBC TOTAL COUNT 241 /uL
[2019-09-09 22:15] LABS: ALANINE AMINOTRANSFERASE 15 U/L (0-55); ALBUMIN 3.5 GM/DL (3.2-4.5); ALKALINE PHOSPHATASE 155 U/L (40-136); BILIRUBIN,TOTAL 0.5 MG/DL (0.1-1.0); BUN/CREATININE RATIO 13; CARBON DIOXIDE 21 MMOL/L (21-32); CHLORIDE 103 MMOL/L (98-107); CREATININE SERUM 0.72 MG/DL (0.60-1.30); GFR ESTIMATED > 60; GLUCOSE 85 MG/DL (70-105); POTASSIUM 3.8 MMOL/L (3.6-5.0); SODIUM 135 MMOL/L (135-145); TOTAL PROTEIN 7.3 GM/DL (6.4-8.2)
[2019-09-09] MEDS ORDERED: HYDROmorphone 2 MG/ML VIAL (DILAUDID) IV ONE (22:30)
[2019-09-09 23:51] LABS: BF OTHER CELLS 6 %; LYMPHOCYTES,BODY FLUID 50 %
[2019-09-09 23:53] LABS: BODY FLUID APPEARENCE VERY CLOUDY
[2019-09-10] VITALS (10 sets, daily range): BP systolic 92–130; BP diastolic 49–84
[2019-09-10] MEDS ORDERED: HYDROmorphone 2 MG/ML VIAL (DILAUDID) IV ONE (01:15)
--- NOTE | 2019-09-10 03:47 | OPERATIVE REPORT ---
DATE OF SERVICE: 09/09/2019 PREOPERATIVE DIAGNOSIS: Symptomatic ascites. POSTOPERATIVE DIAGNOSIS: Symptomatic ascites. PROCEDURE: Ultrasound-guided paracentesis. SURGEON: Cherelle Teague DO ANESTHESIA: A 1% lidocaine 3 mL. COMPLICATIONS: None. INDICATIONS: The patient is a 38-year-old female having symptomatic ascites. She was explained risks and benefits of procedure and wished to proceed with procedure. Consent was signed in the chart. DESCRIPTION OF PROCEDURE: The patient was prepped and draped in sterile fashion. Ultrasound was used to locate the largest pocket where local anesthetic was infiltrated in the area. A #11 blade scalpel was used to make a skin incision and the [id number]-M-Dyjusjes needle and catheter were advanced through the abdominal wall until straw colored fluid was withdrawn. The catheter was then advanced. The fluid was then withdrawn. Specimen was sent to the lab as well. Fluid was withdrawn until no further could be suctioned. The catheter was then removed and sterile bandage was applied. The patient tolerated procedure well without any complications. Job ID: [id number] DocumentID: [id number] Dictated Date: 09/09/2019 22:45:54 Soda Dispenser Date: 09/10/2019 03:46:37 Dictated By: CHERELLE TEAGUE DO
[2019-09-10] MEDS ORDERED: LORazepam INJ 2 MG/ML (ATIVAN) VIAL IV PRN (04:00)
[2019-09-10] MEDS ORDERED: NS IV 1000 ML 1,000 ML IV SCH (04:00)
[2019-09-10 04:06] LABS: BASOPHILS # (AUTO) 0.1 10^3/uL (0.0-0.1); BASOPHILS % (AUTO) 0 % (0-10); EOSINOPHILS # (AUTO) 1.4 10^3/uL (0.0-0.3); EOSINOPHILS % (AUTO) 12 % (0-10); HEMATOCRIT 25 % (35-52); LYMPHOCYTES # (AUTO) 2.4 X 10^3 (1.0-4.0); LYMPHOCYTES % (AUTO) 20 % (12-44); MEAN CORPUSCULAR HEMOGLOBIN 21 PG (25-34); MEAN CORPUSCULAR HGB CONC 32 G/DL (32-36); MEAN CORPUSCULAR VOLUME 67 FL (80-99); MEAN PLATELET VOLUME 9.5 FL (7.4-10.4); MONOCYTES # (AUTO) 1.4 X 10^3 (0.0-1.0); MONOCYTES % (AUTO) 12 % (0-12); NEUTROPHILS # (AUTO) 6.8 X 10^3 (1.8-7.8); NEUTROPHILS % (AUTO) 56 % (42-75); PLATELET COUNT 596 10^3/uL (130-400); RED CELL DISTRIBUTION WIDTH 23.3 % (10.0-14.5); WHITE BLOOD COUNT 12.1 10^3/uL (4.3-11.0)
[2019-09-10 04:31] LABS: BUN/CREATININE RATIO 19; CARBON DIOXIDE 25 MMOL/L (21-32); CHLORIDE 103 MMOL/L (98-107); CREATININE SERUM 0.74 MG/DL (0.60-1.30); GFR ESTIMATED > 60; GLUCOSE 108 MG/DL (70-105); PHOSPHORUS 4.4 MG/DL (2.3-4.7); SODIUM 137 MMOL/L (135-145)
[2019-09-10] MEDS ORDERED: ENOXAPARIN 40 MG/0.4 ML (LOVENOX) SYR SC SCH (06:00)
[2019-09-10] MEDS ORDERED: LACTATED RINGERS 1,000 ML IV ONE (06:14)
[2019-09-10] MEDS ORDERED: ENOXAPARIN 40 MG/0.4 ML (LOVENOX) SYR ONE (06:14)
[2019-09-10] MEDS: MAGNESIUM 1 GM/100 ML IVPB 100 ML IV SCH (06:22)
[2019-09-10] MEDS: KCL 20 MEQ TAB (K-DUR) PO SCH (06:22)
[2019-09-10] MEDS: HYDROmorphone 2 MG/ML VIAL (DILAUDID) IV PRN ×3 (06:22→21:26)
[2019-09-10] MEDS: POTASSIUM CL 10MEQ/50ML IVPB 50 ML IV SCH (06:22)
[2019-09-10] MEDS: LACTATED RINGERS 1,000 ML IV SCH ×3 (06:22→20:03)
--- NOTE | 2019-09-10 06:26 | Diagnostic Imaging Report ---
INDICATION: Chest and abdomen pain. COMPARISON: 09/05/2019. FINDINGS: Cardiomegaly with postsurgical changes and pacemaker are again noted. Lungs are well aerated. No infiltrates have developed. No pulmonary edema. No pneumothorax or pleural effusion. IMPRESSION: Postoperative residue with cardiomegaly. No acute changes. Dictated by: Dictated on workstation # [id number]
[2019-09-10] MEDS ORDERED: ENOXAPARIN 30 MG/0.3 ML (LOVENOX) SYR SC SCH (07:00)
[2019-09-10] MEDS: NICOTINE 21 MG (NICODERM) PATCH TD SCH (08:43)
--- NOTE | 2019-09-10 09:12 | Consultation-Cardiology ---
HPI-Cardiology Cardiology Consultation: Date of Consultation 09/10/19 Date of Admission Attending Physician Cindy Dan DO Admitting Physician [place] Consulting Physician Whit MAHONEY MD HPI: Time Seen by a Provider: 08:45 Chief Complaint: Shortness of breath This is a 38-year-old lady with complicated post cardiac history. I have previously seen her as an in hospital consultation for drug abuse and suicidal attempt. 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 She also has a permanent pacemaker. She has history of atrial fibrillation and is on oral anticoagulation. According to her she follows with cardiology in [facility] and electrophysiology in [place] as well. However she does not follow them regularly. According to her she is on the heart transplant list, however due to use of marijuana she cannot be on the list. She has previous history of multiple drug abuse episodes including remotely cocaine, currently marijuana. She is an active smoker. She denies any significant family history of premature CAD or congenital heart disease. Echocardiogram in 2014 showed severe tricuspid regurgitation. According to the patient she does have congestive heart failure which is the reason for her distended abdomen. She's had ascites in the recent past requiring paracentesis. She presents with shortness of breath and worsening distention of the abdomen. She denies other cardiac symptoms including chest pain, syncope, near-syncope or palpitations. Review of Systems-Cardiology Review of Systems Constitutional: As described under HPI; No As described under HPI, No no symptoms reported, No chills, No fever, No lightheadedness Eyes: No As described under HPI, No no symptoms reported, No blindness, No blurred vision, No contact lenses, No drainage, No decreased acuity, No foreign body sensation, No pain, No vision change Ears/Nose/Throat: No As described under HPI, No no symptoms reported, No chronic hearing loss, No ear discharge, No ear pain, No nasal drainage, No ulcerations Respiratory: No no symptoms reported; As described under HPI; No As described under HPI, No cough, No orthopnea; shortness of breath; No SOB with excertion Cardiovascular: No no symptoms reported; As described under HPI; No As described under HPI, No chest pain, No edema, No irregular heart rate, No lightheadedness, No palpitations Gastrointestinal: No no symptoms reported, No As described under HPI; abdomen distended; No abdominal pain, No blood streaked bowels, No constipation, No diarrhea, No nausea, No vomiting, No stool coloration changes Genitourinary: No As described under HPI, No burning, No dysuria, No discharge, No frequency, No flank pain, No hematuria, No urgency : Yes : No Skin: No rash, No skin related problems, No ulcerations Psychiatric/Neurological: No anxiety, No depression, No seizure, No focal weakness, No syncope Hematologic: No bleeding abnormalities EST-Ziznus-Uzenvt Hx Patient Social History Alcohol Use: Denies Use Recreational Drug Use: Yes (CRYSTAL, WEED, PILLS ET CLEAN FOR 2 MONTHS) Drug of Choice: THC Type Used: Cigarettes 2nd Hand Smoke Exposure: Yes Recent Foreign Travel: No Recent Infectious Disease Expo: No Immunizations Up To Date Tetanus Booster (TDap): Unknown Date of Pneumonia Vaccine: Oct 22, 2017 Date of Influenza Vaccine: Sep 06, 2019 Past Medical History PMH As described under Assessment. Family Medical History Family Medical History: No reported family h/o premature CAD or SCD. Family History: Alcoholism 19 MOTHER Depression Depression Diabetes mellitus 19 MOTHER Drug abuse 19 MOTHER FH: cancer of genital organ 19 MOTHER Allergies and Home Medications Allergies Coded Allergies: asenapine (Unverified Allergy, Severe, TOUNGE SWELLING, 03/31/19) Penicillins (Unverified Allergy, Unknown, 03/31/19) Sulfa (Sulfonamide Antibiotics) (Unverified Allergy, Unknown, 03/31/19) erythromycin base (Verified Allergy, Unknown, 03/31/19) peas (Verified Allergy, Unknown, 03/31/19) prochlorperazine (Verified Allergy, Unknown, 03/31/19) promethazine (Verified Allergy, Unknown, 01/31/06) promethazine HCl (Unverified Allergy, Unknown, 06/07/14) propoxyphene (Verified Allergy, Unknown, 11/26/05) Home Medications Albuterol Sulfate 6.7 Gm Hfa.aer.ad, 2 PUFF INH Q4H PRN for SHORTNESS OF BREATH, (Reported) Buspirone HCl 10 Mg Tablet, 10 MG PO BID, (Reported) LAST FILLED #60 07-28-19 Cyclobenzaprine HCl 10 Mg Tablet, 10 MG PO BID, (Reported) Digoxin 125 Mcg Tablet, 125 MCG PO DAILY, (Reported) LAST FILLED #30 07-28-19 Diltiazem HCl 180 Mg Cap.er.24h, 180 MG PO DAILY, (Reported) LAST FILLED #30 07-28-19 Escitalopram Oxalate 20 Mg Tablet, 20 MG PO DAILY, (Reported) LAST FILLED #30 07-28-19 Furosemide 20 Mg Tablet, 40 MG PO DAILY, (Reported) TAKES 2 (20MG) TABLETS Hydroxyzine Pamoate 25 Mg Capsule, 25 MG PO BID, (Reported) Levetiracetam 1,000 Mg Tablet, 1,000 MG PO BID, (Reported) Metoprolol Tartrate 25 Mg Tablet, 25 MG PO BID, (Reported) LAST FILLED #60 06-12-19 Mirtazapine 15 Mg Tablet, 15 MG PO HS, (Reported) LAST FILLED #30 06-30-19 Omeprazole 40 Mg Capsule.dr, 40 MG PO HS, (Reported) LAST FILLED 06-12-19 #30 Polyethylene Glycol 3350 17 Gm Powd.pack, 17 GM PO BID PRN for CONSTIPATION-2ND LINE, (Reported) Potassium Chloride 20 Meq Tablet.er, 20 MEQ PO DAILY, (Reported) LAST FILLED #30 07-28-19 Risperidone 1 Mg Tablet, 1 MG PO BID, (Reported) Rivaroxaban 20 Mg Tablet, 20 MG PO DAILY, (Reported) Patient Home Medication List Home Medication List Reviewed: Yes Physical Exam-Cardiology Physical Exam Vital Signs/I&O 09/10/19 09/10/19 09/10/19 09/10/19 03:09 03:25 03:30 03:34 Temp 37.0 36.2 Pulse 78 67 64 Resp 20 19 B/P (MAP) 111/67 (86) 105/58 (74) Pulse Ox 98 92 O2 Delivery Room Air Room Air 09/10/19 09/10/19 09/10/19 09/10/19 04:00 05:00 05:22 06:00 Pulse 81 66 63 Resp 24 12 12 B/P (MAP) 111/55 (73) 100/62 (75) 100/49 (66) Pulse Ox 92 92 93 92 O2 Delivery Room Air Room Air Room Air Room Air 09/10/19 09/10/19 09/10/19 09/10/19 06:59 07:45 07:45 07:45 Temp 36.0 Pulse 63 74 Resp 16 B/P (MAP) 92/50 (64) Pulse Ox 94 94 O2 Delivery Room Air Room Air 09/10/19 09/10/19 09/10/19 10:46 10:50 12:39 Pulse 88 76 B/P (MAP) 115/58 (77) Pulse Ox 92 O2 Delivery Room Air Capillary Refill : Less Than 3 Seconds Constitutional: appears stated age, AAO x 3; No apparent distress; well- developed, well-nourished HEENT: PERRL; No discharge; hearing is well preserved, oral hygience is good; No ulceration, No xanthelasmas are seen Neck: No carotid bruit; carotid pulses are 2 + bilaterally Respiratory: chest is bilaterally symmetric, wheezing Cardiovascular: irregularly irregular, S1 and S2, systolic murmur Gastrointestinal: distended, audible bowel sounds; No spleenomegaly Rectal: deferred Extremities: normal range of motion, non-tender, normal inspection, pedal edema; No clubbing, No cyanosis, No significant edema Neurologic/Psychiatric: no motor/sensory deficits, alert, normal mood/affect, oriented x 3, power is 5/5 both on sides Skin: normal color; No rash, No ulcerations Data Review Labs Laboratory Tests 09/09/19 19:21: White Blood Count 15.8H, Red Blood Count 4.12L, Hemoglobin 8.7L, Hematocrit 28L, Mean Corpuscular Volume 67L, Mean Corpuscular Hemoglobin 21L, Mean Corpuscular Hemoglobin Concent 32, Red Cell Distribution Width 23.9H, Platelet Count 614H, Mean Platelet Volume 9.7, Neutrophils (%) (Auto) 63, Lymphocytes (%) (Auto) 16, Monocytes (%) (Auto) 11, Eosinophils (%) (Auto) 9, Basophils (%) (Auto) 0, Neutrophils # (Auto) 9.9H, Lymphocytes # (Auto) 2.6, Monocytes # (Auto) 1.8H, Eosinophils # (Auto) 1.4H, Basophils # (Auto) 0.1, Neutrophils % (Manual) 72, Lymphocytes % (Manual) 14, Monocytes % (Manual) 4, Eosinophils % (Manual) 7, Metamyelocytes % 2, Band Neutrophils 1, Nucleated Red Blood Cells 1, Hypochromasia MARKED, Anisocytosis MODERATE, Microcytosis MODERATE, Acanthocytes MODERATE, Schistocytes SLIGHT 09/09/19 19:27: Sodium Level 135, Potassium Level 3.8, Chloride Level 103, Carbon Dioxide Level 21, Anion Gap 11, Blood Urea Nitrogen 9, Creatinine 0.72, Estimat Glomerular Filtration Rate > 60, BUN/Creatinine Ratio 13, Glucose Level 85, Calcium Level 8.0L, Corrected Calcium 8.4L, Total Bilirubin 0.5, Aspartate Amino Transf (AST/SGOT) 22, Alanine Aminotransferase (ALT/SGPT) 15, Alkaline Phosphatase 155H , Total Protein 7.3, Albumin 3.5 09/09/19 19:35: Urine Color YELLOW, Urine Clarity CLEAR, Urine pH 6.5, Urine Specific [place] 1.015L, Urine Protein NEGATIVE, Urine Glucose (UA) NEGATIVE, Urine Ketones NEGATIVE, Urine Nitrite NEGATIVE, Urine Bilirubin 1+H, Urine Urobilinogen 1.0, Urine Leukocyte Esterase NEGATIVE, Urine RBC (Auto) NEGATIVE, Urine RBC NONE, Urine WBC NONE, Urine Squamous Epithelial Cells 5-10, Urine Crystals NONE, Urine Bacteria NEGATIVE, Urine Casts NONE, Urine Mucus SMALLH, Urine Culture Indicated YES, Urine Opiates Screen NEGATIVE, Urine Oxycodone Screen NEGATIVE, Urine Methadone Screen NEGATIVE, Urine Propoxyphene Screen NEGATIVE, Urine Barbiturates Screen NEGATIVE, Ur Tricyclic Antidepressants Screen POSITIVEH, Urine Phencyclidine Screen NEGATIVE, Urine Amphetamines Screen NEGATIVE, Urine Methamphetamines Screen NEGATIVE, Urine Benzodiazepines Screen NEGATIVE, Urine Cocaine Screen NEGATIVE, Urine Cannabinoids Screen POSITIVEH 09/09/19 21:09: Body Fluid Source ASCITES FLUID, Body Fluid Color WHITE, Body Fluid Appearance VERY CLOUDY, Body Fluid WBC 241, Body Fluid RBC 943, Body Fluid Polynuclear WBCs 30, Body Fluid Mononuclear WBCs 14, Body Fluid Lymphocytes 50, Body Fluid Other Cells 6 09/09/19 22:30: Lactic Acid Level 0.58 09/10/19 03:47: White Blood Count 12.1H, Red Blood Count 3.76L, Hemoglobin 8.0L, Hematocrit 25L, Mean Corpuscular Volume 67L, Mean Corpuscular Hemoglobin 21L, Mean Corpuscular Hemoglobin Concent 32, Red Cell Distribution Width 23.3H, Platelet Count 596H, Mean Platelet Volume 9.5, Neutrophils (%) (Auto) 56, Lymphocytes (%) (Auto) 20, Monocytes (%) (Auto) 12, Eosinophils (%) (Auto) 12H, Basophils (%) (Auto) 0, Neutrophils # (Auto) 6.8, Lymphocytes # (Auto) 2.4, Monocytes # (Auto) 1.4H, Eosinophils # (Auto) 1.4H, Basophils # (Auto) 0.1, Sodium Level 137, Potassium Level 4.0, Chloride Level 103, Carbon Dioxide Level 25, Anion Gap 9, Blood Urea Nitrogen 14, Creatinine 0.74, Estimat Glomerular Filtration Rate > 60, BUN/Creatinine Ratio 19, Glucose Level 108H, Calcium Level 8.0L, Phosphorus Level 4.4, Magnesium Level 2.0, B-Type Natriuretic Peptide 86.3 A/P-Cardiology Assessment/Admission Diagnosis Leukocytosis, Anemia, Drug abuse, Active smoking, Ascites, Spontaneous bacterial peritonitis, Elevated alkaline phosphatase, History of Ebstein's anomaly, status post surgery, Tricuspid valve prostheses and regurgitation, Persistent atrial fibrillation, Cardiac pacemaker. Plan Leukocytosis, likely associated with spontaneous bacterial peritonitis. Status post IV antibiotics. Defer to the primary team. Anemia, unclear etiology. Drug abuse, not willing to quit. Drug abuse is the reason according to the patient for not getting a heart transplant. Active smoking, strongly suggested to quit. Not willing to quit. Ascites, status post paracentesis with 2 liters taken out. Spontaneous bacterial peritonitis, IV antibiotics. Elevated alkaline phosphatase, unclear etiology. Could be secondary to hepatic edema. History of Ebstein's anomaly, status post surgery, I have requested old records from the [facility] in [place]. Tricuspid valve prostheses and regurgitation, repeat echocardiogram. Persistent atrial fibrillation, EKG. Continue oral anticoagulation. Continue beta rita, Cardizem and digitalis. Cardiac pacemaker. No active issues at this point in time. Complicated patient with multiple medical and cardiac issues as mentioned above. Thank you for your consultation. Please call me if you have any questions. Keanu Mahoney MD, FACP, FACC, FSCAI, FHRS, CCDS Interventional Cardiology Cardiac Electrophysiology Vascular Medicine and Endovascular Interventions Clinical Quality Measures DVT/VTE Risk/Contraindication: Risk Factor Score Per Nursin RFS Level Per Nursing on Admit: 3=High Whit MAHONEY MD Sep 10, 2019 09:12 POS
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
[2019-09-10] MEDS ORDERED: DILT180C PO (10:09)
[2019-09-10] MEDS ORDERED: ALBU6.7H8 INH (10:09)
[2019-09-10] MEDS ORDERED: POTA-51 PO (10:09)
[2019-09-10] MEDS ORDERED: LEVE10006 PO (10:09)
[2019-09-10] MEDS ORDERED: diphenhydrAMINE 25 MG TAB (BENADRYL) PO ONE ×2 (10:15→10:22)
[2019-09-10] MEDS ORDERED: HYDROcodone/APAP 10 MG/325 MG (LORTAB) TAB PO ONE (10:22)
[2019-09-10] MEDS: HYDROcodone/APAP 10 MG/325 MG (LORTAB) TAB PO PRN ×3 (10:29→20:03)
[2019-09-10] MEDS ORDERED: MIRT15TA6 PO (10:42)
[2019-09-10] MEDS: RT-ALBUTEROL/IPRATROPIUM 3 ML (DUONEB) VIAL INH SCH ×3 (10:50→22:20)
[2019-09-10] MEDS ORDERED: RT-ALBUTEROL/IPRATROPIUM 3 ML (DUONEB) VIAL INH PRN (11:15)
--- NOTE | 2019-09-10 13:05 | History & Physical-Hospitalist ---
RONI NAVARRO,MED STUDENT 09/10/19 1305: History of Present Illness HPI/Chief Complaint CC: Abdominal pain, distension HPI: Pt discharged 09/06/2019 following resolution of heart failure exacerbation and paracentesis for ascites. Presented to the ED with recurrent abdominal pain and distension 09/09/2019. Pt states she noticed her abdomen swelling and experienced similar but worse abdominal pain. Any movement, especially those that increased intraabdominal pressure such as coughing, caused her to have diffuse sharp pain. Endorses MCCARTNEY, fever, chills and nausea associated with abdominal pain. Dr. Teague performed paracentesis overnight and removed 2L of purulent fluid. Source: patient Exam Limitations: no limitations Date Seen 09/10/19 Time Seen by a Provider: 07:36 Attending Physician Cindy Scruggs DO [facility] Referring Physician Date of Admission Sep 09, 2019 at 22:30 Home Medications & Allergies Home Medications Reviewed patient Home Medication Reconciliation performed by pharmacy medication reconciliations mathematical technician and/or nursing. Patients Allergies have been reviewed. Allergies Allergies Coded Allergies asenapine (Unverified Allergy, Severe, TOUNGE SWELLING, 03/31/19) Penicillins (Unverified Allergy, Unknown, 03/31/19) Sulfa (Sulfonamide Antibiotics) (Unverified Allergy, Unknown, 03/31/19) erythromycin base (Verified Allergy, Unknown, 03/31/19) peas (Verified Allergy, Unknown, 03/31/19) prochlorperazine (Verified Allergy, Unknown, 03/31/19) promethazine (Verified Allergy, Unknown, 01/31/06) promethazine HCl (Unverified Allergy, Unknown, 06/07/14) propoxyphene (Verified Allergy, Unknown, 11/26/05) Past Bdszncs-Ckufhp-Clzbin Hx Patient Social History Alcohol Use: Denies Use Number of Drinks Today: CC Alcohol Beverage of Choice: Beer, Cheap Liquor Recreational Drug Use: Yes (CRYSTAL, WEED, PILLS ET CLEAN FOR 2 MONTHS) Drug of Choice: THC Type Used: Cigarettes 2nd Hand Smoke Exposure: Yes Recent Foreign Travel: No Contact w/other who traveled: No Recent Hopitalizations: Yes (09/06/19) Recent Infectious Disease Expo: No Immunizations Up To Date Tetanus Booster (TDap): Unknown Pediatric: Yes Date of Pneumonia Vaccine: Oct 22, 2017 Date of Influenza Vaccine: Sep 06, 2019 Seasonal Allergies Seasonal Allergies: No Past Medical History Surgeries: Abdominal, Appendectomy, Cardiac, Section, Gallbladder, Hysterectomy, Oophorectomy, Orthopedic, Pacemaker, Tubal Ligation, Valve Replacement Respiratory: Asthma, Chronic Bronchitis, COPD, Emphysema Currently Using CPAP: No Currently Using BIPAP: No Cardiac: Atrial Fibrillation, Chronic Edema/Swelling, Congenital Heart Disease, Heart Murmur, Hypertension, Irregular Heartbeat, Syncope, Valvular Heart Disease Neurological: Seizure Disorder : No Reproductive: Yes Sexually Transmitted Disease: No HIV/AIDS: No 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: 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 Hysterectomy Genitourinary: Neurogenic Bladder Gastrointestinal: Gastroesophageal Reflux, Gastrointestinal Bleed, Hiatal Hernia, Ulcer, Irritable Bowel Musculoskeletal: Degenerate Disk Disease, Fibromyalgia, Back Injury, Chronic Back Pain, Fractures Loss of Vision: Bilateral Hearing Impairment: Denies Psychosocial: ADD/ADHD, Anxiety, PTSD, Suicide Attempts, Bipolar, Personality Disorder, Depression History of Blood Disorders: No Adverse Reaction to Blood Cruz: No Family History Alcoholism 19 MOTHER Depression Depression Diabetes mellitus 19 MOTHER Drug abuse 19 MOTHER FH: cancer of genital organ 19 MOTHER Diabetes, Psychiatric Problems, Other Conditions/Hx (alcoholism mother) Review of Systems Constitutional: chills, fever, malaise EENTM: No hearing loss, No ear pain, No eye pain, No vision loss Respiratory: No cough; dyspnea on exertion; No hemoptysis; short of breath Cardiovascular: No chest pain, No edema; palpitations Gastrointestinal: see HPI, abdominal pain; No constipation; diarrhea; No dysphagia, No hematemesis; nausea, other (states she had blood transfusion d/t severe hemorrhoids ) Genitourinary: dysuria, hesitancy Musculoskeletal: back pain, joint pain Skin: No lesions, No lumps, No rash Psychiatric/Neurological: Anxiety, Depressed Physical Exam Physical Exam Vital Signs Vital Signs - First Documented 09/09/19 19:06 Temp 37.0 Pulse 78 Resp 20 B/P (MAP) 113/73 (86) Pulse Ox 98 O2 Delivery Room Air Capillary Refill : Less Than 3 Seconds Height, Weight, BMI Height: 5'3.00" Weight: 130lbs. 0.0oz. 58.261504fs; 24.00 BMI Method:Stated General Appearance: Chronically ill, Mild Distress HEENT: PERRL/EOMI, Moist Mucous Membranes Neck: Supple, Tender Lateral, Other (PICC in place ) Respiratory: Chest Non Tender, Lungs Clear, Normal Breath Sounds, No Accessory Muscle Use, No Respiratory Distress Cardiovascular: Regular Rate, Rhythm, No Edema, No Gallop Gastrointestinal: Distended, Guarding (voluntary), Hernia (umbilical), Tendern ess (diffuse to light palpation ) Extremity: Normal Capillary Refill, No Calf Tenderness Neurologic/Psychiatric: Alert, Oriented x3 Skin: Normal Color, Warm/Dry Lymphatic: No Adenopathy (cervical, supra/infraclavicular ) Results Results/Procedures Labs Laboratory Tests 09/09/19 19:21 09/09/19 19:27 09/10/19 03:47 Patient resulted labs reviewed. Imaging: Reviewed Imaging Films, Reviewed Imaging Report Assessment/Plan Admission Diagnosis Spontaneous bacterial peritonitis Admission Status: Inpatient Order (span 2 midnights) Reason for Inpatient Admission: IVF, IV antibiotics Assessment and Plan Spontaneous bacterial peritonitis Heart failure Ascites Anemia Atrial fibrillation Neurogenic bladder IVF support, pain control Consulting Cardiology regarding HF, Afib, hx of congential heart disease Consulting Pulmonology regarding SBP Started on rocephin, cultures pending paracentesis Clinical Quality Measures DVT/VTE Risk/Contraindication: Risk Factor Score Per Nursin RFS Level Per Nursing on Admit: 3=High CINDY SCRUGGS DO 09/10/19 2019: History of Present Illness HPI/Chief Complaint CC: Abdominal pain HPI: This is a 38yoWF who has a history of ischemic cardiomyopathy due to drug use and not a heart transplant candidate due to continued drug abuse who was diagnosed with spontaneous bacterial peritonitis placed on Rocephin after paracentesis performed by Dr. Teague in ER removed two liters of pustular fluid in the ER white count remains at 12.1 and pt still has rectal bleeding likely a portal hypertension scenario her hgb remains stable but she Benadryl or Vistaril prior to her breathing treatments since she is wheezing and continues to smoke . Source: patient Exam Limitations: no limitations Past Dojamhz-Dwzldo-Mypvle Hx Past Med/Social Hx: Reviewed Nursing Past Med/Soc Hx, Reviewed and Corrections made Patient Social History Marrital Status: single Employed/Student: unemployed Smoking Status: Current Everyday Smoker Family History Alcoholism 19 MOTHER Depression Depression Diabetes mellitus 19 MOTHER Drug abuse 19 MOTHER FH: cancer of genital organ 19 MOTHER Review of Systems Constitutional: see HPI Gastrointestinal: abdominal pain Physical Exam Physical Exam General Appearance: Chronically ill, Mild Distress Respiratory: No Accessory Muscle Use, No Respiratory Distress, Decreased Breath Sounds, Wheezing Cardiovascular: Regular Rate, Rhythm Gastrointestinal: Distended, Tenderness (diffuse to light palpation ), Other (fluid wave) Neurologic/Psychiatric: Alert, Oriented x3, No Motor/Sensory Deficits, Normal Mood/Affect Assessment/Plan Admission Diagnosis Assessment: SBP CHF RACHID Wheezing Smoker Plan: IV abx Nebs Pain meds Admission Status: Inpatient Order (span 2 midnights) Reason for Inpatient Admission: SBP is critical and life threatening and requies IV abx Diagnosis/Problems Diagnosis/Problems (1) Spontaneous bacterial peritonitis Status: Acute (2) CHF (congestive heart failure) Status: Acute (3) Polysubstance abuse Status: Acute (4) Abdominal pain Status: Acute Supervisory-Addendum Brief Verification & Attestation Participated in pt care: history, MDM, physical Personally performed: exam, history, MDM, supervision of care Care discussed with: Medical Student Procedures: n/a Results interpretation: Verified all documentation Verification and Attestation of Medical Student E/M Service A medical student performed and documented this service in my presence. I revi ewed and verified all information documented by the medical student and made modifications to such information, when appropriate. I personally performed the physical exam and medical decision making. Cindy Scruggs, Sep 10, 2019,20:19 RONI NAVARRO,MED STUDENT Sep 10, 2019 13:05 CINDY ZARATE DO Sep 10, 2019 20:19 POS
[2019-09-10] MEDS: ONDANSETRON 4 MG/2 ML (SDV) Z0FRAN IV PRN (16:49)
--- NOTE | 2019-09-10 20:03 | Progress Note - Surgery ---
[facility] 09/10/19 2003: Subjective Date Seen by a Provider: Sep 10, 2019 Time Seen by a Provider: 13:20 Subjective/Events-last exam Pt is alert and oriented and in no acute distress. Family/Friend at bedside Pt is feeling better since being drained Urinating and passing flatus without issue Pain is improved Pt denied N/V, F/C, SOB and chest pain at this time Focused Exam Lactate Level 09/09/19 22:30: Lactic Acid Level 0.58 Objective Exam Vital Signs Date Time Temp Pulse Resp B/P (MAP) Pulse Ox O2 Delivery O2 Flow Rate FiO2 09/10/19 19:09 36.8 69 20 106/63 (77) 94 Room Air 09/10/19 19:00 90 09/10/19 16:00 36.5 75 20 121/75 (90) 94 Room Air 09/10/19 14:58 94 Room Air 09/10/19 14:07 91 18 106/64 (78) 93 Room Air 09/10/19 12:39 76 09/10/19 12:00 36.6 85 21 96 Room Air 09/10/19 10:50 92 Room Air 09/10/19 10:46 88 115/58 (77) 09/10/19 07:45 74 16 92/50 (64) 94 Room Air 09/10/19 07:45 36.0 09/10/19 07:45 94 Room Air 09/10/19 06:59 63 09/10/19 06:00 63 12 100/49 (66) 92 Room Air 09/10/19 05:22 93 Room Air 09/10/19 05:00 66 12 100/62 (75) 92 Room Air 09/10/19 04:00 81 24 111/55 (73) 92 Room Air 09/10/19 03:34 64 09/10/19 03:30 67 19 105/58 (74) 92 Room Air 09/10/19 03:25 36.2 09/10/19 03:09 37.0 78 20 111/67 (86) 98 Room Air I & O 09/10/19 07:00 Intake Total 240 ml Output Total 0 ml Balance 240 ml Capillary Refill : Less Than 3 Seconds General Appearance: Chronically ill, Mild Distress HEENT: PERRL/EOMI, Moist Mucous Membranes Neck: Supple, Tender Lateral, Other (PICC in place ) Respiratory: Chest Non Tender, No Accessory Muscle Use, No Respiratory Distress Cardiovascular: Regular Rate, Rhythm, No Edema, Normal Peripheral Pulses Peripheral Pulses: 2+ Dorsalis Pedis (R), 2+ Left Dors-Pedis (L), 2+ Radial Pulses (R), 2+ Radial Pulses (L) Gastrointestinal: normal bowel sounds, soft, distended Extremity: Normal Capillary Refill, No Calf Tenderness Neurologic/Psychiatric: Alert, Oriented x3 Skin: Normal Color, Warm/Dry Lymphatic: No Adenopathy (cervical, supra/infraclavicular ) Results Lab Laboratory Tests 09/09/19 21:09: Body Fluid Source ASCITES FLUID, Body Fluid Color WHITE, Body Fluid Appearance VERY CLOUDY, Body Fluid WBC 241, Body Fluid RBC 943, Body Fluid Polynuclear WBCs 30, Body Fluid Mononuclear WBCs 14, Body Fluid Lymphocytes 50, Body Fluid Other Cells 6 09/09/19 22:30: Lactic Acid Level 0.58 09/10/19 03:47: White Blood Count 12.1H, Red Blood Count 3.76L, Hemoglobin 8.0L, Hematocrit 25L, Mean Corpuscular Volume 67L, Mean Corpuscular Hemoglobin 21L, Mean Corpuscular Hemoglobin Concent 32, Red Cell Distribution Width 23.3H, Platelet Count 596H, Mean Platelet Volume 9.5, Neutrophils (%) (Auto) 56, Lymphocytes (%) (Auto) 20, Monocytes (%) (Auto) 12, Eosinophils (%) (Auto) 12H, Basophils (%) (Auto) 0, Neutrophils # (Auto) 6.8, Lymphocytes # (Auto) 2.4, Monocytes # (Auto) 1.4H, Eosinophils # (Auto) 1.4H, Basophils # (Auto) 0.1, Sodium Level 137, Potassium Level 4.0, Chloride Level 103, Carbon Dioxide Level 25, Anion Gap 9, Blood Urea Nitrogen 14, Creatinine 0.74, Estimat Glomerular Filtration Rate > 60, BUN/Creatinine Ratio 19, Glucose Level 108H, Calcium Level 8.0L, Phosphorus Level 4.4, Magnesium Level 2.0, B-Type Natriuretic Peptide 86.3 Microbiology 09/09/19 Blood Culture - Preliminary, Resulted No growth 09/09/19 Gram Stain - Final, Resulted 09/09/19 Body Fluid Culture - Preliminary, Resulted No growth 09/09/19 Urine Culture - Final, Complete NO GROWTH Assessment/Plan Assessment/Plan Assessment/Plan Spontaneous bacterial peritonitis Heart failure Ascites Anemia Atrial fibrillation Neurogenic bladder - Ascites: patient is doing a lot better and has no SOB and improved abdominal distention. will continue to monitor abdomen and results for drained fluid. No surgical intervention needed at this time. - Continue monitoring labs - Continue medical management - Consider moving pt out of ICU Clinical Quality Measures DVT/VTE Risk/Contraindication: Risk Factor Score Per Nursin RFS Level Per Nursing on Admit: 3=High SERJIO TEAGUE DO 09/10/192049: Subjective Subjective/Events-last exam feeling better. pain controlled. wbc decreasing. denies n/v fever sweats chills shortness of breath or chest pain at this time. Objective Exam General Appearance: No Apparent Distress HEENT: PERRL/EOMI Neck: Supple Respiratory: Chest Non Tender, No Accessory Muscle Use Cardiovascular: Regular Rate, Rhythm Gastrointestinal: non tender, soft, distended (improved) Extremity: Normal Capillary Refill Neurologic/Psychiatric: Alert, Oriented x3 Skin: Normal Color, Warm/Dry Lymphatic: No Adenopathy (cervical, supra/infraclavicular ) Assessment/Plan Assessment/Plan Assessment/Plan abdominal pain diffuse with recurrent ascites suspected sbp Heart failure Ascites Anemia IVDA Atrial fibrillation Neurogenic bladder continue medical management pain control iv abx Supervisory-Addendum Brief Verification & Attestation Participated in pt care: history, MDM, physical Personally performed: exam, history, MDM, supervision of care Care discussed with: Medical Student Procedures: n/a Results interpretation: Verified all documentation Verification and Attestation of Medical Student E/M Service A medical student performed and documented this service in my presence. I reviewed and verified all information documented by the medical student and made modifications to such information, when appropriate. I personally performed the physical exam and medical decision making. Serjio Teague, Sep 10, 2019,20:51 [facility] Sep 10, 2019 20:03 SERJIO LY DO Sep 10, 2019 20:50 POS
--- NOTE | 2019-09-10 20:41 | Consultation - Surgery ---
History of Present Illness History of Present Illness Patient Consulted On(tessa/time) 09/09/19 22:35 Date Seen by Provider: Sep 09, 2019 Time Seen by Provider: 22:34 History of Present Illness Seen and evaluated in ED. Consult requested for symptomatic ascites 38 year old female with severe worsening abdominal pain. Patient with more distention of abdomen and had just had paracentesis 3 days ago. More fluid seems to return and causing constant pain. All over abdomen. Nothing makes it better and nothing worse that she knows. U/s was performed at bedside showing a moderate amount of fluid in the abdomen. Denies n/v fever sweats chills or chest pain. Slight shortness of breath. Allergies and Home Medications Allergies Coded Allergies: asenapine (Unverified Allergy, Severe, TOUNGE SWELLING, 03/31/19) Penicillins (Unverified Allergy, Unknown, 03/31/19) Sulfa (Sulfonamide Antibiotics) (Unverified Allergy, Unknown, 03/31/19) erythromycin base (Verified Allergy, Unknown, 03/31/19) peas (Verified Allergy, Unknown, 03/31/19) prochlorperazine (Verified Allergy, Unknown, 03/31/19) promethazine (Verified Allergy, Unknown, 01/31/06) promethazine HCl (Unverified Allergy, Unknown, 06/07/14) propoxyphene (Verified Allergy, Unknown, 11/26/05) Home Medications Albuterol Sulfate 6.7 Gm Hfa.aer.ad, 2 PUFF INH Q4H PRN for SHORTNESS OF BREATH, (Reported) Buspirone HCl 10 Mg Tablet, 10 MG PO BID, (Reported) LAST FILLED #60 07-28-19 Cyclobenzaprine HCl 10 Mg Tablet, 10 MG PO BID, (Reported) Digoxin 125 Mcg Tablet, 125 MCG PO DAILY, (Reported) LAST FILLED #30 7-19 Diltiazem HCl 180 Mg Cap.er.24h, 180 MG PO DAILY, (Reported) LAST FILLED #30 -7-19 Escitalopram Oxalate 20 Mg Tablet, 20 MG PO DAILY, (Reported) LAST FILLED #30 10-7-19 Furosemide 20 Mg Tablet, 40 MG PO DAILY, (Reported) TAKES 2 (20MG) TABLETS Hydroxyzine Pamoate 25 Mg Capsule, 25 MG PO BID, (Reported) Levetiracetam 1,000 Mg Tablet, 1,000 MG PO BID, (Reported) Metoprolol Tartrate 25 Mg Tablet, 25 MG PO BID, (Reported) LAST FILLED #60 06-12-19 Mirtazapine 15 Mg Tablet, 15 MG PO HS, (Reported) LAST FILLED #30 06-30-19 Omeprazole 40 Mg Capsule.dr, 40 MG PO HS, (Reported) LAST FILLED 06-12-19 #30 Polyethylene Glycol 3350 17 Gm Powd.pack, 17 GM PO BID PRN for CONSTIPATION-2ND LINE, (Reported) Potassium Chloride 20 Meq Tablet.er, 20 MEQ PO DAILY, (Reported) LAST FILLED #30 07-28-19 Risperidone 1 Mg Tablet, 1 MG PO BID, (Reported) Rivaroxaban 20 Mg Tablet, 20 MG PO DAILY, (Reported) Patient Home Medication List Home Medication List Reviewed: Yes Past Lhgeski-Hurdzc-Knedsf Hx Patient Social History Alcohol Use: Denies Use Number of Drinks Today: CC Recreational Drug Use: Yes (CRYSTAL, WEED, PILLS ET CLEAN FOR 2 MONTHS) Drug of Choice: THC Smoking Status: Current Everyday Smoker Type Used: Cigarettes 2nd Hand Smoke Exposure: Yes Recent Foreign Travel: No Contact w/Someone Who Travel: No Recent Infectious Disease Expo: No Recent Hopitalizations: Yes (09/06/19) Immunizations Up To Date Tetanus Booster (TDap): Unknown PED Vaccines UTD: Yes Date of Pneumonia Vaccine: Oct 22, 2017 Date of Influenza Vaccine: Sep 06, 2019 Seasonal Allergies Seasonal Allergies: No Surgeries History of Surgeries: Yes Surgeries: Abdominal, Appendectomy, Cardiac, Section, Gallbladder, Hysterectomy, Oophorectomy, Orthopedic, Pacemaker, Tubal Ligation, Valve Replacement Respiratory History of Respiratory Disorde: Yes Respiratory Disorders: Asthma, Chronic Bronchitis, COPD, Emphysema Cardiovascular History of Cardiac Disorders: Yes Cardiac Disorders: Atrial Fibrillation, Chronic Edema/Swelling, Congenital Heart Disease, Heart Murmur, Hypertension, Irregular Heartbeat, Syncope, Valvular Heart Disease Neurological History of Neurological Disord: Yes Neurological Disorders: Seizure Disorder Reproductive System : No Hx 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: Yes Sexually Transmitted Disease: No HIV/AIDS: No 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: 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 Genitourinary History of Genitourinary Disor: Yes Genitourinary Disorders: Neurogenic Bladder Gastrointestinal History of Gastrointestinal Di: Yes Gastrointestinal Disorders: Gastroesophageal Reflux, Gastrointestinal Bleed, Hiatal Hernia, Ulcer, Irritable Bowel Musculoskeletal History of Musculoskeletal Dis: Yes Musculoskeletal Disorders: Degenerate Disk Disease, Fibromyalgia, Back Injury, Chronic Back Pain, Fractures Endocrine History of Endocrine Disorders: No HEENT History of HEENT Disorders: Yes Loss of Vision: Bilateral Hearing Impairment: Denies Cancer History of Cancer: No Psychosocial History of Psychiatric Problem: Yes Behavioral Health Disorders: ADD/ADHD, Anxiety, PTSD, Suicide Attempts, Bipolar, Personality Disorder, Depression Integumentary History of Skin or Integumenta: Yes Blood Transfusions History of Blood Disorders: No Adverse Reaction to a Blood Tr: No Family Medical History Significant Family History: No Pertinent Family Hx, Diabetes, Psychiatric Problems, Other Conditions/Hx (alcoholism mother) Family Medial History: Alcoholism 19 MOTHER Depression Depression Diabetes mellitus 19 MOTHER Drug abuse 19 MOTHER FH: cancer of genital organ 19 MOTHER Review of Systems-General Constitutional: no symptoms reported EENTM: no symptoms reported Respiratory: see HPI Cardiovascular: no symptoms reported Gastrointestinal: see HPI Genitourinary: no symptoms reported Musculoskeletal: no symptoms reported Skin: no symptoms reported Psychiatric/Neurological: No Symptoms Reported Physical Exam-General Problems Physical Exam Vital Signs Vital Signs - First Documented 09/09/19 19:06 Temp 37.0 Pulse 78 Resp 20 B/P (MAP) 113/73 (86) Pulse Ox 98 O2 Delivery Room Air Capillary Refill : Less Than 3 Seconds General Appearance: no apparent distress HEENT: PERRL/EOMI Neck: non-tender, supple Respiratory: chest non-tender, no respiratory distress, no accessory muscle use Cardiovascular: regular rate, rhythm Gastrointestinal: distended, tenderness Rectal: deferred Back: no CVA tenderness Extremities: non-tender, normal inspection Neurologic/Psychiatric: records administrator II-XII nml as tested, no motor/sensory deficits, alert, oriented x 3 Skin: normal color, warm/dry Lymphatic: no adenopathy Data Review Labs Laboratory Tests 09/09/19 21:09: Body Fluid Source ASCITES FLUID, Body Fluid Color WHITE, Body Fluid Appearance VERY CLOUDY, Body Fluid WBC 241, Body Fluid RBC 943, Body Fluid Polynuclear WBCs 30, Body Fluid Mononuclear WBCs 14, Body Fluid Lymphocytes 50, Body Fluid Other Cells 6 09/09/19 22:30: Lactic Acid Level 0.58 09/10/19 03:47: White Blood Count 12.1H, Red Blood Count 3.76L, Hemoglobin 8.0L, Hematocrit 25L, Mean Corpuscular Volume 67L, Mean Corpuscular Hemoglobin 21L, Mean Corpuscular Hemoglobin Concent 32, Red Cell Distribution Width 23.3H, Platelet Count 596H, Mean Platelet Volume 9.5, Neutrophils (%) (Auto) 56, Lymphocytes (%) (Auto) 20, Monocytes (%) (Auto) 12, Eosinophils (%) (Auto) 12H, Basophils (%) (Auto) 0, Neutrophils # (Auto) 6.8, Lymphocytes # (Auto) 2.4, Monocytes # (Auto) 1.4H, Eosinophils # (Auto) 1.4H, Basophils # (Auto) 0.1, Sodium Level 137, Potassium Level 4.0, Chloride Level 103, Carbon Dioxide Level 25, Anion Gap 9, Blood Urea Nitrogen 14, Creatinine 0.74, Estimat Glomerular Filtration Rate > 60, BUN/Creatinine Ratio 19, Glucose Level 108H, Calcium Level 8.0L, Phosphorus Level 4.4, Magnesium Level 2.0, B-Type Natriuretic Peptide 86.3 Microbiology 09/09/19 Blood Culture - Preliminary, Resulted No growth 09/09/19 Gram Stain - Final, Resulted 09/09/19 Body Fluid Culture - Preliminary, Resulted No growth 09/09/19 Urine Culture - Final, Complete NO GROWTH Assessment/Plan Assessment/Plan Assessment/Plan Abdomianl pain with recurrent ascites concern for spontaneous bacterial peritonitis Heart failure Ascites IV drug abuse Anemia Atrial fibrillation Neurogenic bladder Patient with symptomatic ascites will do u/s guided paracentesis. Get studies for possible SBP and treat accordingly Pain control Will follow. Clinical Quality Measures DVT/VTE Risk/Contraindication: Risk Factor Score Per Nursin RFS Level Per Nursing on Admit: 3=High CHERELLE GREWAL DO Sep 10, 2019 20:41 POS
[2019-09-10] MEDS ORDERED: cefTRIAXone 2 GM IV (ROCEPHIN) VIAL ONE (21:14)
[2019-09-10] MEDS ORDERED: WATER (STERILE) FOR INJECTION 20 ML ONE (21:16)
[2019-09-10] MEDS: cefTRIAXone 2,000 MG/SWFI 20 ML IV PUSH IV SCH ×2 (21:27)
[2019-09-11] MEDS: HYDROmorphone 2 MG/ML VIAL (DILAUDID) IV PRN ×5 (00:54→16:48)
[2019-09-11 03:56] VITALS: BP 132/82
[2019-09-11] MEDS: HYDROcodone/APAP 10 MG/325 MG (LORTAB) TAB PO PRN ×4 (04:07→21:07)
[2019-09-11] MEDS: LACTATED RINGERS 1,000 ML IV SCH ×3 (04:14→21:05)
[2019-09-11] MEDS: ONDANSETRON 4 MG/2 ML (SDV) Z0FRAN IV PRN ×3 (05:43→13:38)
[2019-09-11 05:44] LABS: BASOPHILS % (AUTO) 0 % (0-10); EOSINOPHILS # (AUTO) 1.1 10^3/uL (0.0-0.3); EOSINOPHILS % (AUTO) 10 % (0-10); HEMATOCRIT 26 % (35-52); LYMPHOCYTES # (AUTO) 1.8 X 10^3 (1.0-4.0); LYMPHOCYTES % (AUTO) 17 % (12-44); MEAN CORPUSCULAR HEMOGLOBIN 21 PG (25-34); MEAN CORPUSCULAR HGB CONC 31 G/DL (32-36); MEAN CORPUSCULAR VOLUME 68 FL (80-99); MEAN PLATELET VOLUME 9.5 FL (7.4-10.4); MONOCYTES # (AUTO) 0.9 X 10^3 (0.0-1.0); MONOCYTES % (AUTO) 8 % (0-12); NEUTROPHILS # (AUTO) 7.1 X 10^3 (1.8-7.8); NEUTROPHILS % (AUTO) 65 % (42-75); PLATELET COUNT 561 10^3/uL (130-400); RED CELL DISTRIBUTION WIDTH 23.4 % (10.0-14.5); WHITE BLOOD COUNT 10.9 10^3/uL (4.3-11.0)
[2019-09-11 06:29] LABS: BUN/CREATININE RATIO 13; CALCIUM 8.2 MG/DL (8.5-10.1); CARBON DIOXIDE 25 MMOL/L (21-32); CHLORIDE 102 MMOL/L (98-107); CREATININE SERUM 0.63 MG/DL (0.60-1.30); GFR ESTIMATED > 60; GLUCOSE 78 MG/DL (70-105); MAGNESIUM 1.9 MG/DL (1.6-2.4); PHOSPHORUS 3.9 MG/DL (2.3-4.7); POTASSIUM 3.9 MMOL/L (3.6-5.0); SODIUM 136 MMOL/L (135-145)
--- NOTE | 2019-09-11 06:34 | Diagnostic Imaging Report ---
PROCEDURE: CT head without contrast. TECHNIQUE: Multiple contiguous axial images were obtained through the brain without the use of intravenous contrast. Auto Exposure Controls were utilized during the CT exam to meet ALARA standards for radiation dose reduction. INDICATION: Seizure and fall. Comparison is made to study of 09/13/2017. CT HEAD: CT images of the head were obtained. FINDINGS: Ventricles and sulci are within normal limits for size. There is no intracranial hemorrhage identified. There is no abnormal mass effect or shift of midline structures. IMPRESSION: Unremarkable CT of the head. Dictated by: Dictated on workstation # [id number]
[2019-09-11] MEDS: POTASSIUM CL 10MEQ/50ML IVPB 50 ML IV SCH (06:37)
[2019-09-11] MEDS: MAGNESIUM 1 GM/100 ML IVPB 100 ML IV SCH (06:37)
[2019-09-11] MEDS: KCL 20 MEQ TAB (K-DUR) PO SCH (06:37)
[2019-09-11] MEDS: ENOXAPARIN 30 MG/0.3 ML (LOVENOX) SYR SC SCH (06:59)
[2019-09-11] MEDS: RT-ALBUTEROL/IPRATROPIUM 3 ML (DUONEB) VIAL INH SCH ×2 (07:00→14:42)
[2019-09-11 08:00] VITALS: BP 118/75
--- NOTE | 2019-09-11 08:27 | Diagnostic Imaging Report ---
INDICATION: Dyspnea. TIME OF EXAM: 03:06 a.m. Correlation is made with prior chest from 09/09/2019. FINDINGS: Changes of median sternotomy and CABG are noted. Heart is enlarged but stable. Cardiac pacemaker remains in place. Lungs are clear. No infiltrates are seen. There is no effusion or pneumothorax. Spinal instrumentation throughout the thoracic spine is noted. IMPRESSION: Stable chest. No acute feature is detected. Dictated by: Dictated on workstation # [id number]
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
[2019-09-11] MEDS ORDERED: PANTOPRAZOLE 40 MG (PROTONIX) TAB PO SCH ×2 (09:00→21:00)
--- NOTE | 2019-09-11 09:23 | Pulmonary Progress Note ---
BRIGHT LOPEZ MED STUDENT 09/11/19 0923: Subjective Date Seen by a Provider: Sep 11, 2019 Time Seen by a Provider: 10:31 Subjective/Events-last exam Patient states that she is feeling better than yesterday, but is still experiencing fevers, chills, abdominal pain, cough productive of yellow sputum, nausea, vomiting, and diarrhea. She denies chest pain and shortness of breath. She states that she does not feel short of breath despite not being on her usual 3L of oxygen. Sepsis Event Evaluation Height, Weight, BMI Height: 5'3.00" Weight: 130lbs. 0.0oz. 58.077715hv; 24.00 BMI Method:Stated Focused Exam Lactate Level 09/09/19 22:30: Lactic Acid Level 0.58 Exam Exam Vital Signs Date Time Temp Pulse Resp B/P (MAP) Pulse Ox O2 Delivery O2 Flow Rate FiO2 09/11/19 08:00 36.5 116 20 118/75 (89) 95 Room Air 09/11/19 07:00 114 09/11/19 07:00 93 Room Air 09/11/19 03:56 36.4 115 18 132/82 (99) 100 Room Air 09/11/19 01:00 79 09/10/19 23:10 36.6 116 18 123/84 (97) 95 Room Air 09/10/19 20:00 Room Air 09/10/19 19:09 36.8 69 20 106/63 (77) 94 Room Air 09/10/19 19:00 90 09/10/19 16:00 36.5 75 20 121/75 (90) 94 Room Air 09/10/19 14:58 94 Room Air 09/10/19 14:07 91 18 106/64 (78) 93 Room Air 09/10/19 12:39 76 09/10/19 12:00 36.6 85 21 96 Room Air 09/10/19 10:50 92 Room Air 09/10/19 10:46 88 115/58 (77) I & O 09/11/19 07:00 Intake Total 4584 ml Output Total 1400 ml Balance 3184 ml Height & Weight Height: 5'3.00" Weight: 130lbs. 0.0oz. 58.149471zy; 24.00 BMI Method:Stated General Appearance: No Apparent Distress, Chronically ill HEENT: Pharynx Normal, Moist Mucous Membranes Neck: Non Tender, Supple, Tender Lateral, Other (PICC in plae ) Respiratory: Chest Non Tender, Lungs Clear, Normal Breath Sounds, No Accessory Muscle Use, No Respiratory Distress Cardiovascular: No Edema, No Gallop, Normal Peripheral Pulses, Tachycardia Capillary Refill: Less Than 3 Seconds Peripheral Pulses: 2+ Dorsalis Pedis (R), 2+ Left Dors-Pedis (L), 2+ Radial Pulses (R), 2+ Radial Pulses (L) Gastrointestinal: normal bowel sounds, soft, tenderness (diffuse tenderness) Extremity: Normal Capillary Refill Neurologic/Psychiatric: Alert, Oriented x3, Depressed Affect Skin: Normal Color, Warm/Dry, Damp Lymphatic: No Adenopathy (cervical, supra/infraclavicular ) Results Lab Laboratory Tests 09/09/19 19:21 09/09/19 19:27 09/10/19 03:47 09/11/19 05:38 Radiology Chest Xray 09/11/19 IMPRESSION: Stable chest. No acute feature is detected. Assessment/Plan Assessment/Plan SBP s/p paracentesis -Rocephin -Bradley culture -Blood culture NGTD x2 -Peritoneal fluid gram stain negative and NGTD -Urine culture NGTD Anemia -Monitor, stable -Stool occult + -surgery following COPD -Requires 3L home O2 -Duoneb RT TID, Q2hr PRN Hx of Melchor anomaly -Cardiology following -tricuspid bioprosthesis -echo shows mod/severe TR with bioprosthesis -LVEF 55-65% Hx of Afib -Cardiology following Marijuanna use -Education DVT/GI ppx -Start lovenox however monitor hb for GI loss - Protonix Nicotine dependence -patient education -Nicotine patch VALERIE ANTON DO 09/11/19 1058: Exam Exam General Appearance: No Apparent Distress HEENT: Pharynx Normal, Moist Mucous Membranes Neck: Non Tender, Supple, Tender Lateral, Other (PICC in plae ) Respiratory: Chest Non Tender, Lungs Clear, Normal Breath Sounds, No Accessory Muscle Use, No Respiratory Distress Cardiovascular: No Edema, No Gallop, Normal Peripheral Pulses Gastrointestinal: normal bowel sounds, soft, tenderness (diffuse tenderness) Extremity: Normal Capillary Refill Neurologic/Psychiatric: Alert, Oriented x3 Skin: Normal Color, Warm/Dry Assessment/Plan Assessment/Plan SBP s/p paracentesis -Rocephin -Bradley culture -Blood culture NGTD x2 -Peritoneal fluid gram stain negative and NGTD -Urine culture NGTD Anemia -Monitor, stable -Stool occult + -surgery following COPD -Requires 3L home O2 -Duoneb RT TID, Q2hr PRN Hx of Melchor anomaly -Cardiology following -tricuspid bioprosthesis -echo shows mod/severe TR with bioprosthesis -LVEF 55-65% Hx of Afib -Cardiology following Marijuanna use -Education DVT/GI ppx -Start lovenox however monitor hb for GI loss - Protonix Nicotine dependence -patient education -Nicotine patch Supervisory-Addendum Brief Verification & Attestation Participated in pt care: history Personally performed: exam, history Care discussed with: Medical Student Procedures: n/a Verification and Attestation of Medical Student E/M Service A medical student performed and documented this service in my presence. I reviewed and verified all information documented by the medical student and made modifications to such information, when appropriate. I personally performed the physical exam and medical decision making. Valerie Anton, Sep 11, 2019,10:57 BRIGHT LOPEZ MED STUDENT Sep 11, 2019 09:23 VALERIE CHIANG DO Sep 11, 2019 10:58 POS
[2019-09-11] MEDS: NICOTINE 21 MG (NICODERM) PATCH TD SCH (09:32)
--- NOTE | 2019-09-11 10:23 | Physical Therapy Evaluation ---
PT Evaluation-General Medical Diagnosis Admission Date Sep 09, 2019 at 22:30 Medical Diagnosis: SBP Onset Date: Sep 09, 2019 Therapy Diagnosis Therapy Diagnosis: debility Height/Weight Height (Feet): 5 Height (Inches): 3.00 Weight (Pounds): 130 Weight (Ounces): 0.0 Precautions Precautions/Isolations: Fall Prevention, Standard Precautions Referral Physician: Zahida Reason for Referral: Evaluation/Treatment Medical History Pertinent Medical History: Heart Failure Additional Medical History seizure disorder Reviewed History: Yes Social History Home: Apartment Current Living Status: Friend Entry Into Home: Level Entry Prior Prior Level of Function SCALE: Activities may be completed with or without assistive devices. 9-Pjvoiqpylo-viqizas completes the activity by him/herself with no assistance from a helper. 5-Set-up or Clean-up Assistance-helper sets up or cleans up; patient completes a ctivity. [place] assists only prior to or following the activity. 4-Supervision or Touching Assistance-helper provides verbal cues and/or touching/steadying and/or contact guard assistance as patient completes activity. Assistance may be provided throughout the activity or intermittently. 3-Partial/Moderate Assistance-helper does LESS THAN HALF the effort. [place] lifts, holds or supports trunk or limbs, but provides less than half the effort. 2-Substantial/Maximal Assistance-helper does MORE THAN HALF the effort. [place] lifts or holds trunk or limbs and provides more than half the effort. 4-Ftpdbydwo-uzkfty does ALL the effort. Patient does none of the effort to complete the activity. Or, the assistance of 2 or more helpers is required for the patient to complete the activity. If activity was not attempted, code reason: 7-Patient Refused. 9-Not Applicable-not attempted and the patient did not perform the activity before the current illness, exacerbation or injury. 10-Not Attempted due to Environmental Limitations-(lack of equipment, weather restraints, etc.). 88-Not Attempted due to Medical Conditions or Safety Concerns. Bed Mobility: 6 Transfers (B,C,W/C): 6 Gait: 6 Stairs: 6 Indoor Mobility (Ambulation): Independent Stairs: Independent Prior Devices Use: None PT Evaluation-Current Subjective Patient states she did not trip or lose balance fall. She had a seizure and ended up on the ground. Objective Patient Orientation: Normal For Age Attachments: IV ROM/Strength ROM Lower Extremities bilateral LE WFL Strength Lower Extremities 4/5 grossly bilateral LE Integumentary/Posture Integumentary refer to nursing notes Bowel Incontinence: No Bladder Incontinence: No Posture WFL Neuromuscular (Tone, Coordination, Reflexes) grossly intact Sensory Vision: Functional Hearing: Functional Sensation Right Lower Extremit: Intact Sensation Left Lower Extremity: Intact Transfers Roll Left to Right (QC): 6 Sit to Lying (QC): 6 Lying to Sitting/Side of Bed(Q: 6 Sit to Stand (QC): 6 Chair/Jcb-ex-Ekcpw Xfer(QC): 6 Car Transfer (QC): 0 Gait Does the Patient Walk?: Yes Mode of Locomotion: Walk Anticipated Mode of Locomotion: Walk Walk 10 feet (QC): 6 Walk 50 ft with 2 Turns(QC): 6 Walk 150 ft (QC): 6 Walking 10ft/uneven surface-QC: 0 Wheelchair Training Does the Pt Use a Wheelchair?: No Wheel 50 ft with 2 turns (QC): 0 Wheel 150 ft (QC): 0 Type of Wheelchair: Manual Stairs 1 Step (curb) (QC): 0 4 Steps (QC): 0 12 Steps (QC): 0 Balance Sitting Static: Normal Sitting Dynamic: Normal Standing Static: Normal Standing Dynamic: Normal Picking up an Object (QC): 6 Assessment/Needs 38 y.o. female, is currently at independent [facility] with all gross motor skills and does note require skilled therapy intervention. Patient reports she had a seizure and ended up on the floor. Rehab Potential: Fair Post Rehab Potential-Barriers: compliance PT Jail Goals Jail Goals Roll Left & Right (QC): 6 Sit to Lying (QC): 6 Lying-Sitting on Side/Bed(QC): 6 Sit to Stand (QC): 6 Chair/Kmc-kp-Vvpdt Xfer(QC): 6 Toilet Transfer (QC): 6 Car Transfer (QC): 6 Does the Patient Walk: Yes Walk 10 feet (QC): 6 Walk 50ft with 2 Turns (QC): 6 Walk 150 ft (QC): 6 Walking 10ft on Uneven Surface: 6 1 Step (curb) (QC): 6 4 Steps (QC): 6 12 Steps (QC): 6 Picking up an Object (QC): 6 Does the Pt use WC or Scooter?: No Type: N/A Type: N/A PT Plan Treatment/Plan Treatment Plan: Discontinue PT, goals met Treatment Plan: Other Treatment Duration: Sep 11, 2019 Frequency: 1 time per week Estimated Hrs Per Day: .25 hour per day Patient and/or Family Agrees t: Yes Time/GCodes Time In: 955 Time Out: 1006 Total Billed Treatment Time: 11 Total Billed Treatment 1 visit EVLowC 11 min SONIA ISLAS PT Sep 11, 2019 10:23 POS
--- NOTE | 2019-09-11 10:28 | Cardiology Progress Note ---
Cardiology SOAP Progress Note Subjective: Told me that the patient had lower GI bleeding yesterday. No cardiac complaints. Shortness of breath is much better. Objective: I&O/Vital Signs 09/10/19 09/11/19 09/11/19 09/11/19 23:10 01:00 03:56 07:00 Temp 36.6 36.4 Pulse 116 79 115 Resp 18 18 B/P (MAP) 123/84 (97) 132/82 (99) Pulse Ox 95 100 93 O2 Delivery Room Air Room Air Room Air 09/11/19 09/11/19 07:00 08:00 Temp 36.5 Pulse 114 116 Resp 20 B/P (MAP) 118/75 (89) Pulse Ox 95 O2 Delivery Room Air 09/11/19 00:00 Intake Total 1960 ml Output Total 300 ml Balance 1660 ml Weight (Pounds): 130 Weight (Ounces): 0.0 Weight (Calculated Kilograms): 58.176511 Constitutional: appears stated age, AAO x 3; No apparent distress; well- developed, well-nourished Respiratory: chest is bilaterally symmetric, wheezing Cardiovascular: irregularly irregular, S1 and S2, systolic murmur Gastrointestional: distended, audible bowel sounds; No spleenomegaly Extremities: normal range of motion, non-tender, normal inspection, pedal edema; No clubbing, No cyanosis, No significant edema Neurologic/Psychiatric: no motor/sensory deficits, alert, normal mood/affect, oriented x 3, power is 5/5 both on sides Skin: normal color; No rash, No ulcerations Results/Procedures: Labs Laboratory Tests 09/10/19 21:16: Stool Occult Blood Immunoassay POSITIVEH 09/11/19 05:38: White Blood Count 10.9, Red Blood Count 3.75L, Hemoglobin 8.0L, Hematocrit 26L, Mean Corpuscular Volume 68L, Mean Corpuscular Hemoglobin 21L, Mean Corpuscular Hemoglobin Concent 31L, Red Cell Distribution Width 23.4H, Platelet Count 561H, Mean Platelet Volume 9.5, Neutrophils (%) (Auto) 65, Lymphocytes (%) (Auto) 17, Monocytes (%) (Auto) 8, Eosinophils (%) (Auto) 10, Basophils (%) (Auto) 0, Neutrophils # (Auto) 7.1, Lymphocytes # (Auto) 1.8, Monocytes # (Auto) 0.9, Eosinophils # (Auto) 1.1H, Basophils # (Auto) 0.0, Sodium Level 136, Potassium Level 3.9, Chloride Level 102, Carbon Dioxide Level 25, Anion Gap 9, Blood Urea Nitrogen 8, Creatinine 0.63, Estimat Glomerular Filtration Rate > 60, BUN/Creatinine Ratio 13, Glucose Level 78, Calcium Level 8.2L, Phosphorus Level 3.9, Magnesium Level 1.9 Microbiology 09/09/19 Blood Culture - Preliminary, Resulted No growth 09/09/19 Gram Stain - Final, Resulted 09/09/19 Body Fluid Culture - Preliminary, Resulted No growth 09/09/19 Urine Culture - Final, Complete NO GROWTH A/P: Assessment/Dx: Leukocytosis, Anemia, Drug abuse, Active smoking, Ascites, Spontaneous bacterial peritonitis, Elevated alkaline phosphatase, History of Ebstein's anomaly, status post surgery, Tricuspid valve prostheses and regurgitation, Persistent atrial fibrillation, Cardiac pacemaker. Lower GI bleeding. Plan: Leukocytosis, likely associated with spontaneous bacterial peritonitis. Status post IV antibiotics. Defer to the primary team. Anemia, unclear etiology. Drug abuse, not willing to quit. Drug abuse is the reason according to the patient for not getting a heart transplant. Active smoking, strongly suggested to quit. Not willing to quit. Ascites, status post paracentesis with 2 liters taken out. Improved abdominal distention. Spontaneous bacterial peritonitis, IV antibiotics. Elevated alkaline phosphatase, unclear etiology. Could be secondary to hepatic edema. 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 Tricuspid valve prostheses and regurgitation, echocardiogram done 09/10/2019 shows normal LV function with dilated RV with severe tricuspid regurgitation. The patient does have a tricuspid prosthesis. Persistent atrial fibrillation, EKG. oral anticoagulation had to be held due to lower GI bleeding. Continue beta rita, Cardizem and digitalis. Cardiac pacemaker. No active issues at this point in time. Lower GI bleeding: Hold oral anticoagulation. Endoscopy today. Complicated patient with multiple medical and cardiac issues as mentioned above. Thank you for your consultation. Please call me if you have any questions. Keanu Mahoney MD, FACP, FACC, FSCAI, FHRS, CCDS Interventional Cardiology Cardiac Electrophysiology Vascular Medicine and Endovascular Interventions Focused Exam Lactate Level 09/09/19 22:30: Lactic Acid Level 0.58 Whit MAHONEY MD Sep 11, 2019 10:28 am POS
--- NOTE | 2019-09-11 10:32 | Physician Query Clarification ---
PQ-CHF Specificity Admission Date: Sep 09, 2019 at 22:30 Discharge Date: The medical record reflects the following clinical scenario: History/Risk Factors: Hypertensive heart disease. Ischemic cardiomyopathy due to drug use. Recent heart failure exacerbation. Clinical Findings:BNP 86.3, ascites. Treatment:Paracentesis-09/09. Question: Can you further specify the acuity &/or type of CHF per the clinical indicators above? Please document a response in the Progress Notes or Discharge Summary. 1. Acuity: Acute, Chronic or Acute on Chronic 2. Type: Systolic, Diastolic or Systolic & Diastolic 3. Unspecified: CHF cannot be further specified regarding type or acuity 4. Other, with explanation of clinical findings 5. Clinically undetermined, no explanation for clinical findings PHYSICIAN RESPONSE Acuity: Acute Type: Systolic Please remember a lack of response to the above will prompt a phone page by CDI/Coding staff. In responding to this query, please exercise your independent professional judgment. The purpose of this communication is to more accurately reflect the complexity of your patients condition. The fact that a question is asked does not imply that any particular answer is desired or expected. Thank you for your timely response to this clarification. Requestors name: [facility]ac[facility] Phone # ext [phone] or [phone] THIS PHYSICIAN QUERY FORM IS A PERMANENT PART OF THE MEDICAL RECORD STACIE CORONADO Sep 11, 2019 10:31 JAGDISH ZARATE DO Sep 11, 2019 21:08 POS
[2019-09-11 12:00] VITALS: BP 144/91
--- NOTE | 2019-09-11 13:37 | Occupational Therapy Eval ---
OT Evaluation-General/PLF Medical Diagnosis Admission Date Sep 09, 2019 at 22:30 Medical Diagnosis: SBP Onset Date: Sep 09, 2019 Therapy Diagnosis Therapy Diagnosis: Decreased ADL function Height/Weight Height (Feet): 5 Height (Inches): 3.00 Weight (Pounds): 130 Weight (Ounces): 0.0 Precautions Precautions/Isolations: Standard Precautions Safety Interventions: None Referral Physician: Zahida Referral Reason: Activity Tolerance, Self Care, Evaluation/Treatment, Strengthening/ROM Medical History Pertinent Medical History: Heart Failure Additional Medical History abdominal sx, ysterectomy, pacemaker, valve replacement, HTN, COPD, ADHD, PTSD, Bipolar, CHD Current History Spontaneous bacterial peritonitis, heart failure, a-fib Reviewed History: Yes Social History Home: Apartment Current Living Status: Friend Entry Into Home: Level Entry Steps Into Home: 0 ADL-Prior Level of Function SCALE: Activities may be completed with or without assistive devices. 2-Alaxpvtxek-fyeghvz completes the activity by him/herself with no assistance from a helper. 5-Set-up or Clean-up Assistance-helper sets up or cleans up; patient completes activity. Matthews assists only prior to or following the activity. 4-Supervision or Touching Assistance-helper provides verbal cues and/or touching/steadying and/or contact guard assistance as patient completes acti vity. Assistance may be provided throughout the activity or intermittently. 3-Partial/Moderate Assistance-helper does LESS THAN HALF the effort. Matthews lifts, holds or supports trunk or limbs, but provides less than half the effort. 2-Substantial/Maximal Assistance-helper does MORE THAN HALF the effort. Matthews lifts or holds trunk or limbs and provides more than half the effort. 7-Yggxacmsj-vgsboe does ALL the effort. Patient does none of the effort to complete the activity. Or, the assistance of 2 or more helpers is required for the patient to complete the activity. If activity was not attempted, code reason: 7-Patient Refused. 9-Not Applicable-not attempted and the patient did not perform the activity before the current illness, exacerbation or injury. 10-Not Attempted due to Environmental Limitations-(lack of equipment, weather restraints, etc.). 88-Not Attempted due to Medical Conditions or Safety Concerns. ADL PLOF Comments Pt states she receives assist from [employer], states she was able to increase help over night as well, though she does not trust the workers and states she fired her previous worker. Pt states they assist with bathing/ transfers into shower and hand held assist within home/ shower and assist with donning bra/ shirt. Pt states they assist with IADLs of cleaning/ shopping/ cooking. Pt states does not have difficulty completing any other ADL activities. Self Care: Needed Some Help Functional Cognition: Independent DME/Equipment: Tub/Shower DME/Equipment Comments Pt required some assist, pt does not have AE. Occupation: disabled Drive Self: No OT Current Status Subjective Pt states 10/10 pain, seen reclined in bed. Pt bed mob with IND without grimacing, sit to stand without assist. Pt agreeable to OT evaluation. Mental Status/Objective Patient Orientation: Person, Place, Situation, Normal For Age Attachments: IV Current Glasses/Contacts: Yes Hearing Aids: No Dentures/Partials: No Hand Dominance: Right Upper Extremity ROM WFL BUE excluding R hand limited AROM to full extension, passive extension to full range Upper Extremity Coordination WFL BUE Upper Extremity Sensation R UE impaired, states tingling "all over" without nerve pattern. Upper Extremity Strength Decreased RUE hr director strength shoulder flexion 4-/5 bilaterally Edema: none noted ADL-Treatment Eating (QC): 6 Oral Hygiene (QC): 7 Shower/Bathe Self (QC): 7 Upper Body Dressing (QC): 7 Lower Body Dressing (QC): 6 On/Off Footwear (QC): 6 Toileting Hygiene (QC): 6 Toilet Transfer (QC): 6 Other Treatments Friend present through session. Pt states she misses her therapy dog at home. Pt speaks in quick verses. Pt completes sit to stand with ease, states 10/10 pain in abdomen, back/ neck. Pt agrees to toilet, completes ambulation with FWW. States she would like a FWW at home. Pt educated on PT role vs OT role. Pt doffs pants IND with good dynamic balance without use of grab bar. Pt completes toil eting with IND, washes hands with IND. Pt requires SBA for ambulation just for IV pole manipulation. Pt returns to bed, pt educated on sitting up throughout day. Pt states Lj's assist with shirt, bra, showering, and IADL tasks. Pt questioned if there was anything she was not able to do currently that she was able to do at home, pt states she is unsure of the question. When rephrased, pt states she does not have help at home right now but Lj will return and that she does everything currently that she completes at home. Pt educated on DME that can be purchased such as tub transfer bench and grab bars in shower for increased IND. Pt's friend enters, pt lays in bed with call light in reach, all needs met. Education OT Patient Education: Correct positioning, Purpose of tx/functional activities, Safety issues, Transfer techniques, Use of adapted equipment Teaching Recipient: Patient Teaching Methods: Demonstration, Discussion Response to Teaching: Verbalize Understanding, Return Demonstration OT Dropper Tank Storage Goals Correction Goals Time Frame: Sep 11, 2019 Eating (QC): 6 Oral Hygiene (QC): 7 Toileting Hygiene (QC): 6 Shower/Bathe Self (QC): 7 Upper Body Dressing (QC): 7 Lower Body Dressing (QC): 6 On/Off Footwear (QC): 6 1=Demonstrate adherence to instructed precautions during ADL tasks. 2=Patient will verbalize/demonstrate understanding of assistive devices/modifications for ADL. 3=Patient will improve strength/tolerance for activity to enable patient to perform ADL's. OT Education/Plan Problem List/Assessment Assessment: No Skilled OT Needs ID'd Discharge Recommendations Plan/Recommendations: Discharge/Goals Met (Pt at prior level- eval only) Therapy Discharge Recommendati: Scheduled Assistance, Post Acute OT (evaluation of DME needs within home environment) Treatment Plan/Plan of Care Plan of Care: OTHER (Pt at prior level, eval only) Treatment Duration: Sep 11, 2019 Frequency: 1 time per week (eval only) Rehab Potential: Fair Time/GCodes Start Time: 13:12 Stop Time: 13:26 Total Time Billed (hr/min): 14 Billed Treatment Time 1, EVM (14) AMANDA SANCHEZ OTR Sep 11, 2019 13:37 POS
[2019-09-11 16:00] VITALS: BP 167/78
--- NOTE | 2019-09-11 17:38 | Progress Note - Surgery ---
DAHLIA BRITT [facility] 09/11/19 1737: Subjective Date Seen by a Provider: Sep 11, 2019 Time Seen by a Provider: 16:40 Subjective/Events-last exam Pt is alert and oriented and in no acute distress. Family/Friend is at bedside Pt has minimal pain but abdominal distention is better Pt is having BM and Urinating without issue Leukocytosis has resolved. Mentioned blood in stool for fist time to general surgery team Pt denies SOB, Chest pain, F/C and N/V Focused Exam Lactate Level 09/09/19 22:30: Lactic Acid Level 0.58 Objective Exam Vital Signs Date Time Temp Pulse Resp B/P (MAP) Pulse Ox O2 Delivery O2 Flow Rate FiO2 09/11/19 16:46 170 09/11/19 16:16 160 09/11/19 16:02 160 09/11/19 14:41 96 Room Air 09/11/19 12:18 114 09/11/19 12:00 36.7 116 20 144/91 (108) 95 Room Air 09/11/19 09:00 95 Room Air 09/11/19 08:00 36.5 116 20 118/75 (89) 95 Room Air 09/11/19 07:00 114 09/11/19 07:00 93 Room Air 09/11/19 03:56 36.4 115 18 132/82 (99) 100 Room Air 09/11/19 01:00 79 09/10/19 23:10 36.6 116 18 123/84 (97) 95 Room Air 09/10/19 20:00 Room Air 09/10/19 19:09 36.8 69 20 106/63 (77) 94 Room Air 09/10/19 19:00 90 I & O 09/11/19 07:00 Intake Total 4584 ml Output Total 1400 ml Balance 3184 ml Capillary Refill : Less Than 3 Seconds General Appearance: Anxious, Chronically ill, Mild Distress HEENT: Pharynx Normal, Moist Mucous Membranes Neck: Non Tender, Supple, Tender Lateral, Other (PICC in place ) Respiratory: Chest Non Tender, No Accessory Muscle Use, No Respiratory Distress Cardiovascular: Regular Rate, Rhythm, No Edema, Normal Peripheral Pulses Peripheral Pulses: 2+ Dorsalis Pedis (R), 2+ Left Dors-Pedis (L), 2+ Radial Pulses (R), 2+ Radial Pulses (L) Gastrointestinal: normal bowel sounds, soft, tenderness (minimal diffuse tenderness) Extremity: Normal Capillary Refill Neurologic/Psychiatric: Alert, Oriented x3, Depressed Affect Skin: Normal Color, Warm/Dry, Damp Lymphatic: No Adenopathy, Inguinal Node Tender (L), Inguinal Node Tender (R) Results Lab Laboratory Tests 09/10/19 21:16: Stool Occult Blood Immunoassay POSITIVEH 09/11/19 05:38: White Blood Count 10.9, Red Blood Count 3.75L, Hemoglobin 8.0L, Hematocrit 26L, Mean Corpuscular Volume 68L, Mean Corpuscular Hemoglobin 21L, Mean Corpuscular Hemoglobin Concent 31L, Red Cell Distribution Width 23.4H, Platelet Count 561H, Mean Platelet Volume 9.5, Neutrophils (%) (Auto) 65, Lymphocytes (%) (Auto) 17, Monocytes (%) (Auto) 8, Eosinophils (%) (Auto) 10, Basophils (%) (Auto) 0, Neutrophils # (Auto) 7.1, Lymphocytes # (Auto) 1.8, Monocytes # (Auto) 0.9, Eosinophils # (Auto) 1.1H, Basophils # (Auto) 0.0, Sodium Level 136, Potassium Level 3.9, Chloride Level 102, Carbon Dioxide Level 25, Anion Gap 9, Blood Urea Nitrogen 8, Creatinine 0.63, Estimat Glomerular Filtration Rate > 60, BUN/Creatinine Ratio 13, Glucose Level 78, Calcium Level 8.2L, Phosphorus Level 3.9, Magnesium Level 1.9 Microbiology 09/09/19 Blood Culture - Preliminary, Resulted No growth 09/09/19 Gram Stain - Final, Resulted 09/09/19 Body Fluid Culture - Preliminary, Resulted No growth 09/10/19 MRSA Screen - Final, Complete 09/09/19 Urine Culture - Final, Complete NO GROWTH Assessment/Plan Assessment/Plan Assessment/Plan abdominal pain diffuse with recurrent ascites suspected sbp Heart failure Ascites Anemia IVDA Atrial fibrillation Neurogenic bladder continue medical management pain control iv abx Positive Occult blood - Continue to treat with ABX - Consider Albumin 1g/Kg - Consider work up for positive occult blood on 09/10/19 - Continue medica management Clinical Quality Measures DVT/VTE Risk/Contraindication: Risk Factor Score Per Nursin RFS Level Per Nursing on Admit: 3=High CHERELLE TEAGUE DO 09/11/192103: Subjective Subjective/Events-last exam Patient laying in bed states abdominal pain is better. Abdominal distention still better since paracentesis. Notes this time that having some bright red blood per rectum. Small amount. She then starts discussing her need for heart surgery and that she was told need to be clean for 6 months, the one time she was clean for this long they then told her it needed to be longer and she becomes more upset with me discussing this. Patient wbc improving. Objective Exam General Appearance: Anxious, Chronically ill, Mild Distress HEENT: PERRL/EOMI Neck: Non Tender, Supple Respiratory: Chest Non Tender, No Accessory Muscle Use, No Respiratory Distress Cardiovascular: Regular Rate, Rhythm Gastrointestinal: normal bowel sounds, soft, tenderness (minimal diffuse tenderness) Extremity: Normal Capillary Refill Neurologic/Psychiatric: Alert, Oriented x3, No Motor/Sensory Deficits, Depressed Affect Skin: Normal Color, Warm/Dry Assessment/Plan Assessment/Plan Assessment/Plan abdominal pain diffuse with recurrent ascites suspected sbp Heart failure Ascites Anemia IVDA Atrial fibrillation Neurogenic bladder continue medical management pain control iv abx Positive Occult blood hgb stable continue to follow could do endoscopy inpatient vs outpatient patient asked me to leave towards end of discussion. Supervisory-Addendum Brief Verification & Attestation Participated in pt care: history, MDM, physical Personally performed: exam, history, MDM, supervision of care Care discussed with: Medical Student Procedures: n/a Results interpretation: Verified all documentation Verification and Attestation of Medical Student E/M Service A medical student performed and documented this service in my presence. I reviewed and verified all information documented by the medical student and made modifications to such information, when appropriate. I personally performed the physical exam and medical decision making. Cherelle Teague, Sep 11, 2019,21:04 [facility] Sep 11, 2019 17:37 CHERELLE LY DO Sep 11, 2019 21:04 POS
[2019-09-11] MEDS ORDERED: RT-ALBUTEROL SULF 2.5 MG/3 ML PRE-MIX VIAL INH PRN (17:45)
[2019-09-11] MEDS ORDERED: NON-FORMULARY MEDICATION 1 EA EA (Polyethylene Glycol 3350 (Miralax) 17 GM) PO PRN (17:45)
[2019-09-11] MEDS ORDERED: POLYETHYLENE GLYCOL 17 GM (MIRALAX) PACK PO PRN (18:30)
[2019-09-11] MEDS ORDERED: hydrOXYzine (VISTARIL/ATARAX) 25 MG capsule/tablet PO PRN (18:45)
[2019-09-11 20:00] VITALS: BP 107/57
[2019-09-11] MEDS ORDERED: WATER (STERILE) FOR INJECTION 20 ML ONE (20:50)
[2019-09-11] MEDS ORDERED: cefTRIAXone 2 GM IV (ROCEPHIN) VIAL ONE (20:50)
[2019-09-11 21:00] VITALS: BP 126/68
[2019-09-11] MEDS ORDERED: MIRTAZAPINE 15 MG (REMERON) TAB PO SCH (21:00)
[2019-09-11] MEDS ORDERED: NON-FORMULARY MEDICATION 1 EA EA (Mirtazapine 15 MG) PO SCH (21:00)
[2019-09-11] MEDS ORDERED: RISPERIDONE 1 MG PO SCH (21:00)
[2019-09-11] MEDS ORDERED: NON-FORMULARY MEDICATION 1 EA EA (Buspirone HCl 10 MG) PO SCH (21:00)
[2019-09-11] MEDS ORDERED: risperiDONE 1 MG (RisperDAL) TAB PO SCH (21:00)
[2019-09-11] MEDS ORDERED: HYDROXYZINE PAMOATE 25 MG PO SCH (21:00)
[2019-09-11] MEDS ORDERED: CYCLOBENZAPRINE 10 MG (FLEXERIL) TAB PO PRN (21:00)
[2019-09-11] MEDS ORDERED: NON-FORMULARY MEDICATION 1 EA EA (Omeprazole 40 MG) PO SCH (21:00)
[2019-09-11] MEDS: LEVETIRACETAM 1,000 MG (KEPPRA) TABLET PO SCH (21:05)
[2019-09-11] MEDS: busPIRone 10 MG (BUSPAR) TAB PO SCH (21:05)
[2019-09-11] MEDS: cefTRIAXone 2,000 MG/SWFI 20 ML IV PUSH IV SCH ×2 (21:05)
[2019-09-11] MEDS: meTOprolol TARTRATE 25 MG (LOPRESSOR) TABLET PO SCH (21:05)
[2019-09-11] MEDS: MUPIROCIN 2% OINT 22 GM (BACTROBAN) TUBE NSEACH SCH (21:06)
[2019-09-12 00:10] VITALS: BP 129/64
[2019-09-12] MEDS: HYDROmorphone 2 MG/ML VIAL (DILAUDID) IV PRN ×3 (00:33→08:40)
[2019-09-12] MEDS: HYDROcodone/APAP 10 MG/325 MG (LORTAB) TAB PO PRN ×2 (02:21→08:40)
[2019-09-12] MEDS: RT-ALBUTEROL/IPRATROPIUM 3 ML (DUONEB) VIAL INH SCH ×2 (03:18→10:39)
[2019-09-12 03:45] VITALS: BP 110/56
[2019-09-12 05:28] LABS: BASOPHILS % (AUTO) 0 % (0-10); EOSINOPHILS # (AUTO) 1.2 10^3/uL (0.0-0.3); EOSINOPHILS % (AUTO) 13 % (0-10); HEMATOCRIT 25 % (35-52); HEMOGLOBIN 7.9 G/DL (11.5-16.0); LYMPHOCYTES # (AUTO) 1.8 X 10^3 (1.0-4.0); LYMPHOCYTES % (AUTO) 19 % (12-44); MEAN CORPUSCULAR HEMOGLOBIN 21 PG (25-34); MEAN CORPUSCULAR HGB CONC 31 G/DL (32-36); MEAN CORPUSCULAR VOLUME 67 FL (80-99); MEAN PLATELET VOLUME 9.4 FL (7.4-10.4); MONOCYTES # (AUTO) 1.2 X 10^3 (0.0-1.0); MONOCYTES % (AUTO) 13 % (0-12); NEUTROPHILS # (AUTO) 5.1 X 10^3 (1.8-7.8); NEUTROPHILS % (AUTO) 55 % (42-75); PLATELET COUNT 576 10^3/uL (130-400); RED CELL DISTRIBUTION WIDTH 23.5 % (10.0-14.5); WHITE BLOOD COUNT 9.3 10^3/uL (4.3-11.0)
[2019-09-12 06:02] LABS: BUN/CREATININE RATIO 11; CALCIUM 8.1 MG/DL (8.5-10.1); CARBON DIOXIDE 25 MMOL/L (21-32); CHLORIDE 103 MMOL/L (98-107); CREATININE SERUM 0.63 MG/DL (0.60-1.30); GFR ESTIMATED > 60; GLUCOSE 91 MG/DL (70-105); MAGNESIUM 1.9 MG/DL (1.6-2.4); PHOSPHORUS 3.9 MG/DL (2.3-4.7); POTASSIUM 4.3 MMOL/L (3.6-5.0); SODIUM 137 MMOL/L (135-145)
[2019-09-12] MEDS: POTASSIUM CL 10MEQ/50ML IVPB 50 ML IV SCH (06:07)
[2019-09-12] MEDS: MAGNESIUM 1 GM/100 ML IVPB 100 ML IV SCH (06:07)
[2019-09-12] MEDS: KCL 20 MEQ TAB (K-DUR) PO SCH (06:08)
[2019-09-12] MEDS: LACTATED RINGERS 1,000 ML IV SCH (06:12)
[2019-09-12] MEDS: ENOXAPARIN 30 MG/0.3 ML (LOVENOX) SYR SC SCH (06:13)
[2019-09-12] MEDS ORDERED: KCL 20 MEQ TAB (K-DUR) PO SCH (07:00)
--- NOTE | 2019-09-12 07:03 | Diagnostic Imaging Report ---
INDICATION: Shortness of breath Portable chest 3:16 AM There are postoperative changes from valve repair surgery. There is unipolar pacemaker. Patient has had fusion of the thoracic spine. Right IJ central line tip projects over the SVC. Heart size and pulmonary vascularity are normal. Lungs are clear. There are no effusions or pneumothoraces. IMPRESSION: Postsurgical changes in the chest. No acute abnormality seen. Dictated by: Dictated on workstation # [id number]
[2019-09-12 08:00] VITALS: BP 139/83
[2019-09-12] MEDS: LEVETIRACETAM 1,000 MG (KEPPRA) TABLET PO SCH (08:40)
[2019-09-12] MEDS: busPIRone 10 MG (BUSPAR) TAB PO SCH (08:40)
[2019-09-12] MEDS: NICOTINE 21 MG (NICODERM) PATCH TD SCH (08:41)
[2019-09-12] MEDS: meTOprolol TARTRATE 25 MG (LOPRESSOR) TABLET PO SCH (08:41)
[2019-09-12] MEDS: MUPIROCIN 2% OINT 22 GM (BACTROBAN) TUBE NSEACH SCH (08:42)
[2019-09-12] MEDS: ONDANSETRON 4 MG/2 ML (SDV) Z0FRAN IV PRN (08:51)
[2019-09-12] MEDS ORDERED: NICOTINE PATCH REMOVAL TP SCH (08:59)
[2019-09-12] MEDS ORDERED: NON-FORMULARY MEDICATION 1 EA EA (Potassium Chloride 20 MEQ) PO SCH (09:00)
[2019-09-12] MEDS ORDERED: FUROSEMIDE 20 MG (LASIX) TAB PO SCH (09:00)
[2019-09-12] MEDS ORDERED: NON-FORMULARY MEDICATION 1 EA EA (Diltiazem HCl (Diltiazem 24Hr ER) 180 MG) PO SCH (09:00)
[2019-09-12] MEDS ORDERED: NON-FORMULARY MEDICATION 1 EA EA (Escitalopram Oxalate 20 MG) PO SCH (09:00)
[2019-09-12] MEDS ORDERED: DIGOXIN 0.125 MG (LANOXIN) TAB PO SCH (09:00)
[2019-09-12] MEDS ORDERED: RIVAROXABAN 20 MG TABLET (XARELTO) PO SCH (09:00)
[2019-09-12] MEDS ORDERED: DILTIAZEM 180 MG (CARDIZEM CD) CAP PO SCH (09:00)
[2019-09-12] MEDS ORDERED: CEFD300C3 PO (09:41)
[2019-09-12] MEDS ORDERED: ONDA4TAB11 PO (09:41)
--- NOTE | 2019-09-12 10:23 | Discharge Summary ---
RONI NAVARRO,MED STUDENT 09/12/19 1023: Diagnosis/Chief Complaint Date of Admission Sep 09, 2019 at 22:30 Date of Discharge Discharge Date: Sep 12, 2019 Admission Diagnosis Assessment: SBP CHF RACHID Wheezing Smoker Plan: IV abx Nebs Pain meds Primary Care Cristopher Scott Discharge Diagnosis (1) Spontaneous bacterial peritonitis Status: Acute (2) Polysubstance abuse Status: Acute (3) Abdominal pain Status: Acute (4) CHF (congestive heart failure) Status: Acute Discharge Summary Discharge Physical Exam Allergies: Coded Allergies: asenapine (Unverified Allergy, Severe, TOUNGE SWELLING, 03/31/19) Penicillins (Unverified Allergy, Unknown, 03/31/19) Sulfa (Sulfonamide Antibiotics) (Unverified Allergy, Unknown, 03/31/19) erythromycin base (Verified Allergy, Unknown, 03/31/19) peas (Verified Allergy, Unknown, 03/31/19) prochlorperazine (Verified Allergy, Unknown, 03/31/19) promethazine (Verified Allergy, Unknown, 01/31/06) promethazine HCl (Unverified Allergy, Unknown, 06/07/14) propoxyphene (Verified Allergy, Unknown, 11/26/05) Vitals & I&Os Vital Signs Date Time Temp Pulse Resp B/P (MAP) Pulse Ox O2 Delivery O2 Flow Rate FiO2 09/12/19 08:00 36.2 87 18 139/83 (101) 97 Room Air 09/10/19 14:07 General Appearance: Anxious, Chronically ill, Mild Distress HEENT: Pharynx Normal, Moist Mucous Membranes Respiratory: Chest Non Tender, Lungs Clear, Normal Breath Sounds, No Accessory Muscle Use, No Respiratory Distress Cardiovascular: Normal Peripheral Pulses, Systolic Murmur, Irregularly Irregular Gastrointestinal: Distended, Tenderness Extremity: No Calf Tenderness, Pedal Edema Skin: Normal Color, Damp Neurologic/Psychiatric: Alert, Oriented x3 Hospital Course Pt presented to ED with abdominal pain and distension on 09/09/2019, three days after being treated and discharged for ascites. Past medical history notable for heart failure and history of IV drug use. 2L of purulent fluid was pulled from the abdomen and patient was admitted to inpatient services for IV antibiotic therapy, pain control, antiemetics and monitoring. Cardiology and surgery were consulted for heart failure and management of ascites/anemia respectively. Patient fired surgical consult. Was discharged with oral antibiotics, antiemetics and close follow up with her primary care provider. Labs (last 24 hrs) Laboratory Tests 09/12/19 05:20: White Blood Count 9.3, Red Blood Count 3.78L, Hemoglobin 7.9L, Hematocrit 25L, Mean Corpuscular Volume 67L, Mean Corpuscular Hemoglobin 21L, Mean Corpuscular Hemoglobin Concent 31L, Red Cell Distribution Width 23.5H, Platelet Count 576H, Mean Platelet Volume 9.4, Neutrophils (%) (Auto) 55, Lymphocytes (%) (Auto) 19, Monocytes (%) (Auto) 13H, Eosinophils (%) (Auto) 13H, Basophils (%) (Auto) 0, Neutrophils # (Auto) 5.1, Lymphocytes # (Auto) 1.8, Monocytes # (Auto) 1.2H, Eosinophils # (Auto) 1.2H, Basophils # (Auto) 0.0, Sodium Level 137, Potassium Level 4.3, Chloride Level 103, Carbon Dioxide Level 25, Anion Gap 9, Blood Urea Nitrogen 7, Creatinine 0.63, Estimat Glomerular Filtration Rate > 60, BUN/Creatinine Ratio 11, Glucose Level 91, Calcium Level 8.1L, Phosphorus Level 3.9, Magnesium Level 1.9 Microbiology 09/09/19 Blood Culture - Preliminary, Resulted No growth 09/09/19 Gram Stain - Final, Resulted 09/09/19 Body Fluid Culture - Preliminary, Resulted No growth 09/10/19 MRSA Screen - Final, Complete 09/09/19 Urine Culture - Final, Complete NO GROWTH Patient resulted labs reviewed. Pending Labs Laboratory Tests 09/12/19 05:20: White Blood Count 9.3, Red Blood Count 3.78, Hemoglobin 7.9, Hematocrit 25, Mean Corpuscular Volume 67, Mean Corpuscular Hemoglobin 21, Mean Corpuscular Hemoglobin Concent 31, Red Cell Distribution Width 23.5, Platelet Count 576, Mean Platelet Volume 9.4, Neutrophils (%) (Auto) 55, Lymphocytes (%) (Auto) 19, Monocytes (%) (Auto) 13, Eosinophils (%) (Auto) 13, Basophils (%) (Auto) 0, Neutrophils # (Auto) 5.1, Lymphocytes # (Auto) 1.8, Monocytes # (Auto) 1.2, Eosinophils # (Auto) 1.2, Basophils # (Auto) 0.0, Sodium Level 137, Potassium Level 4.3, Chloride Level 103, Carbon Dioxide Level 25, Anion Gap 9, Blood Urea Nitrogen 7, Creatinine 0.63, Estimat Glomerular Filtration Rate > 60, BUN/Creatinine Ratio 11, Glucose Level 91, Calcium Level 8.1, Phosphorus Level 3.9, Magnesium Level 1.9 Imaging: Reviewed Imaging Films, Reviewed Imaging Report Discussion & Recommendations Discharge Planning: >30 minutes discharge planning Discharge Home Medications: Active Scripts Active Ondansetron Odt (Ondansetron) 4 Mg Tab.rapdis 4 Mg PO Q4H Cefdinir 300 Mg Capsule 300 Mg PO BID Reported Mirtazapine 15 Mg Tablet 15 Mg PO HS LAST FILLED #30 06-30-19 Diltiazem 24Hr ER (Diltiazem HCl) 180 Mg Cap.er.24h 180 Mg PO DAILY LAST FILLED #30 07-28-19 Potassium Chloride 20 Meq Tablet.er 20 Meq PO DAILY LAST FILLED #30 07-28-19 Proventil Hfa (Albuterol Sulfate) 6.7 Gm Hfa.aer.ad 2 Puff INH Q4H PRN Levetiracetam 1,000 Mg Tablet 1,000 Mg PO BID Buspirone HCl 10 Mg Tablet 10 Mg PO BID LAST FILLED #60 07-28-19 Escitalopram Oxalate 20 Mg Tablet 20 Mg PO DAILY LAST FILLED #30 07-28-19 Furosemide 20 Mg Tablet 40 Mg PO DAILY TAKES 2 (20MG) TABLETS Hydroxyzine Pamoate 25 Mg Capsule 25 Mg PO BID Miralax (Polyethylene Glycol 3350) 17 Gm Powd.pack 17 Gm PO BID PRN Risperidone 1 Mg Tablet 1 Mg PO BID Omeprazole 40 Mg Capsule.dr 40 Mg PO HS LAST FILLED 06-12-19 #30 Cyclobenzaprine HCl 10 Mg Tablet 10 Mg PO BID Xarelto Tablet (Rivaroxaban) 20 Mg Tablet 20 Mg PO DAILY Metoprolol Tartrate 25 Mg Tablet 25 Mg PO BID LAST FILLED #60 06-12-19 Digoxin 125 Mcg Tablet 125 Mcg PO DAILY LAST FILLED #30 07-28-19 Instructions to patient/family Please see electronic discharge instructions given to patient. Clinical Quality Measures DVT/VTE Risk/Contraindication: Risk Factor Score Per Nursin RFS Level Per Nursing on Admit: 3=High CINDY SCRUGGS DO 09/12/19 1734: Diagnosis/Chief Complaint Discharge Diagnosis (1) Spontaneous bacterial peritonitis Status: Acute (2) Status post abdominal paracentesis Status: Acute (3) Polysubstance abuse Status: Acute Discharge Summary Discharge Physical Exam Allergies: Coded Allergies: asenapine (Unverified Allergy, Severe, TOUNGE SWELLING, 03/31/19) Penicillins (Unverified Allergy, Unknown, 03/31/19) Sulfa (Sulfonamide Antibiotics) (Unverified Allergy, Unknown, 03/31/19) erythromycin base (Verified Allergy, Unknown, 03/31/19) peas (Verified Allergy, Unknown, 03/31/19) prochlorperazine (Verified Allergy, Unknown, 03/31/19) promethazine (Verified Allergy, Unknown, 01/31/06) promethazine HCl (Unverified Allergy, Unknown, 06/07/14) propoxyphene (Verified Allergy, Unknown, 11/26/05) Neurologic/Psychiatric: Alert, Oriented x3 Hospital Course Was the Problem List Reviewed?: Yes Hospital course: Pt had a lengthy hospital course for four day after she was admitted for spontaneous bacterial peritonitis after paracentesiscompleted by Dr. Teague. She was placed on empiric treatment of Rocephin and was restarted on all home medications. In-stage congestive heart failuredue to ischemic cardiomyopathy from illicitdrug abuse, not a heart transplant candidate gave rise to a lengthy hospital stay with mental illness issues but she was found to be ready for discharge, she has an appointment with Sascha Scott on Sunday already scheduled and she was stable for home, with antibiotics, Zofran and social work will touch base in case she has any other needs. Discussion & Recommendations Discharge Planning: <30 minutes discharge planning Supervisory-Addendum Brief Verification & Attestation Participated in pt care: history, MDM, physical Personally performed: exam, history, MDM, supervision of care Care discussed with: Medical Student Procedures: n/a Results interpretation: Verified all documentation Verification and Attestation of Medical Student E/M Service A medical student performed and documented this service in my presence. I reviewed and verified all information documented by the medical student and made modifications to such information, when appropriate. I personally performed the physical exam and medical decision making. Cindy Scruggs, Sep 12, 2019,17:33 RONI NAVARRO,MED STUDENT Sep 12, 2019 10:23 CINDY ZARATE DO Sep 12, 2019 17:34 POS
[2019-09-12 10:41] VITALS: BP 139/83
--- NOTE | 2019-09-12 12:02 | Cardiology Progress Note ---
Cardiology SOAP Progress Note Subjective: No further cardiac complaints. Objective: I&O/Vital Signs 09/12/19 09/12/19 09/12/19 09/12/19 00:10 01:00 03:45 07:00 Temp 36.4 36.1 Pulse 93 89 77 81 Resp 18 18 B/P (MAP) 129/64 (85) 110/56 (74) Pulse Ox 93 94 O2 Delivery Room Air Room Air 09/12/19 09/12/19 09/12/19 08:00 09:00 10:41 Temp 36.2 36.2 Pulse 87 87 Resp 18 18 B/P (MAP) 139/83 (101) 139/83 Pulse Ox 97 97 97 O2 Delivery Room Air Room Air Room Air 09/12/19 00:00 Intake Total 3545 ml Output Total 400 ml Balance 3145 ml Weight (Pounds): 130 Weight (Ounces): 0.0 Weight (Calculated Kilograms): [id number] Constitutional: appears stated age, AAO x 3; No apparent distress; well- developed, well-nourished Respiratory: chest is bilaterally symmetric, wheezing Cardiovascular: irregularly irregular, S1 and S2, systolic murmur Gastrointestional: distended, audible bowel sounds; No spleenomegaly Extremities: normal range of motion, non-tender, normal inspection, pedal edema; No clubbing, No cyanosis, No significant edema Neurologic/Psychiatric: no motor/sensory deficits, alert, normal mood/affect, oriented x 3, power is 5/5 both on sides Skin: normal color; No rash, No ulcerations Results/Procedures: Labs Laboratory Tests 09/12/19 05:20: White Blood Count 9.3, Red Blood Count 3.78L, Hemoglobin 7.9L, Hematocrit 25L, Mean Corpuscular Volume 67L, Mean Corpuscular Hemoglobin 21L, Mean Corpuscular Hemoglobin Concent 31L, Red Cell Distribution Width 23.5H, Platelet Count 576H, Mean Platelet Volume 9.4, Neutrophils (%) (Auto) 55, Lymphocytes (%) (Auto) 19, Monocytes (%) (Auto) 13H, Eosinophils (%) (Auto) 13H, Basophils (%) (Auto) 0, Neutrophils # (Auto) 5.1, Lymphocytes # (Auto) 1.8, Monocytes # (Auto) 1.2H, Eosinophils # (Auto) 1.2H, Basophils # (Auto) 0.0, Sodium Level 137, Potassium Level 4.3, Chloride Level 103, Carbon Dioxide Level 25, Anion Gap 9, Blood Urea Nitrogen 7, Creatinine 0.63, Estimat Glomerular Filtration Rate > 60, BUN/Creatinine Ratio 11, Glucose Level 91, Calcium Level 8.1L, Phosphorus Level 3.9, Magnesium Level 1.9 Microbiology 09/09/19 Blood Culture - Preliminary, Resulted No growth 09/09/19 Gram Stain - Final, Resulted 09/09/19 Body Fluid Culture - Preliminary, Resulted No growth 09/10/19 MRSA Screen - Final, Complete 09/09/19 Urine Culture - Final, Complete NO GROWTH A/P: Assessment/Dx: Leukocytosis, Anemia, Drug abuse, Active smoking, Ascites, Spontaneous bacterial peritonitis, Elevated alkaline phosphatase, History of Ebstein's anomaly, status post surgery, Tricuspid valve prostheses and regurgitation, Persistent atrial fibrillation, Cardiac pacemaker. Lower GI bleeding. Plan: Leukocytosis, likely associated with spontaneous bacterial peritonitis. Status post IV antibiotics. Defer to the primary team. Anemia, unclear etiology. Drug abuse, not willing to quit. Drug abuse is the reason according to the patient for not getting a heart transplant. Active smoking, strongly suggested to quit. Not willing to quit. Ascites, status post paracentesis with 2 liters taken out. Improved abdominal distention. Spontaneous bacterial peritonitis, IV antibiotics. Elevated alkaline phosphatase, unclear etiology. Could be secondary to hepatic edema. History of Ebstein's anomaly, status post surgery, I have requested old records from the lei maker in [place]. Tricuspid valve prostheses and regurgitation, echocardiogram done 09/10/2019 shows normal LV function with dilated RV with severe tricuspid regurgitation. The patient does have a tricuspid prosthesis. Persistent atrial fibrillation, EKG. oral anticoagulation had to be held due to lower GI bleeding. Continue beta rita, Cardizem and digitalis. Cardiac pacemaker. No active issues at this point in time. Lower GI bleeding: Hold oral anticoagulation. Complicated patient with multiple medical and cardiac issues as mentioned above. Patient to follow-up with outpatient lei maker on discharge. Thank you for your consultation. Please call me if you have any questions. Keanu Mahoney MD, FACP, FACC, FSCAI, FHRS, CCDS Interventional Cardiology Cardiac Electrophysiology Vascular Medicine and Endovascular Interventions Focused Exam Lactate Level 09/09/19 22:30: Lactic Acid Level 0.58 Whit MAHONEY MD Sep 12, 2019 12:02 POS
[2019-09-13] MEDS ORDERED: ENOXAPARIN 40 MG/0.4 ML (LOVENOX) SYR SC SCH (07:00)
== END 2019-09-12 10:50 | disposition home or self-care (01) | DRG 371 ==
LOC: EDUNIT# 18:59 → ER 19:01 → ICU 22:30 → 4TH 09-10 15:14
PROVIDERS: ADMIT Internal Medicine; ATTEND Internal Medicine
PROC: 0W9G3ZZ Drainage of Peritoneal Cavity, Percutaneous Approach (ICD-10-PCS; principal; 2019-09-09)
DX: K65.2 Spontaneous bacterial peritonitis (principal); I50.21 Acute systolic (congestive) heart failure; R18.8 Other ascites; I48.19 Other persistent atrial fibrillation; K76.6 Portal hypertension; J44.9 Chronic obstructive pulmonary disease, unspecified; I25.5 Ischemic cardiomyopathy; I11.0 Hypertensive heart disease with heart failure; D64.9 Anemia, unspecified; I07.1 Rheumatic tricuspid insufficiency; E83.39 Other disorders of phosphorus metabolism; G40.909 Epilepsy, unspecified, not intractable, without status epilepticus; F17.210 Nicotine dependence, cigarettes, uncomplicated; N31.9 Neuromuscular dysfunction of bladder, unspecified; F12.10 Cannabis abuse, uncomplicated; F15.10 Other stimulant abuse, uncomplicated; F41.9 Anxiety disorder, unspecified; F31.9 Bipolar disorder, unspecified; F43.10 Post-traumatic stress disorder, unspecified; F90.9 Attention-deficit hyperactivity disorder, unspecified type; F60.9 Personality disorder, unspecified; K21.9 Gastro-esophageal reflux disease without esophagitis; K44.9 Diaphragmatic hernia without obstruction or gangrene; K58.9 Irritable bowel syndrome, unspecified; M79.7 Fibromyalgia; Z95.2 Presence of prosthetic heart valve; Z95.0 Presence of cardiac pacemaker; Z79.01 Long term (current) use of anticoagulants; Z87.74 Personal history of (corrected) congenital malformations of heart and circulatory system; Z87.11 Personal history of peptic ulcer disease
CPT/HCPCS: 36415; 36556; 70450; 71045; 80048; 80053; 80306; 81000; 82274; 83605; 83735; 83880; 84100; 84703; 85007; 85025; 85027; 87040; 87070; 87081; 87088; 87205; 89051; 93005; 93306; 94640; 94760; 96372; 96374; 96375; 96376

== ENCOUNTER 2019-09-23 08:34 | Emergency (ER) | payer MEDICAID ==
[~2019-09-23 08:34] MED LIST changes: +ALBU6.7H8 INH; +DIGO125T3 PO; +DILT180C85 PO; +DIPH25CA48 PO; -DIPH25CA6 PO; -DOXY100T19 PO; +DOXY100T31 PO; +MIRT15TA6 PO; +OMEP40CA27 PO; -OMEP40CA36 PO; +ONDA4TAB11 PO
--- NOTE | 2019-09-23 08:54 | NUR ---
pt informed registration that she was leaving
[2019-10-11] MEDS ORDERED: TRM50T (00:21)
== END 2019-09-23 08:54 | disposition left against medical advice (07) ==
LOC: EDUNIT# 08:34 → ER 08:35
DX: R19.00 Intra-abdominal and pelvic swelling, mass and lump, unspecified site (principal)

== ENCOUNTER 2019-09-25 09:06 | Day surgery (SDC) | payer MEDICAID ==
[~2019-09-25] VITALS: Ht 160 cm; Wt 66.1 kg
[2019-09-25] VITALS (11 sets, daily range): BP systolic 87–111; BP diastolic 61–80
[2019-09-25] MEDS ORDERED: LACTATED RINGERS 1,000 ML IV PRN (09:19)
[2019-09-25] MEDS ORDERED: CLINDAMYCIN 600 MG/50 ML IVPB 50 ML IV ONE (09:30)
[2019-09-25] MEDS ORDERED: BUP/EPI 0.5% 1:200,000 (MARCAINE) 10ML VIAL IJ ONE (10:05)
[2019-09-25] MEDS ORDERED: PROPOFOL INJECTION 50 ML IV ONE ×2 (10:35→11:14)
[2019-09-25] MEDS ORDERED: MIDAZOLAM 2 MG/2 ML (VERSED) VIAL ONE (10:35)
--- NOTE | 2019-09-25 10:52 | Progress Note-Pre Operative ---
Pre-Operative Progress Note H&P Reviewed The H&P was reviewed, patient examined and no changes noted. Date Seen by Provider: Sep 25, 2019 Time Seen by Provider: 10:00 Date H&P Reviewed: Sep 25, 2019 Time H&P Reviewed: 10:00 Pre-Operative Diagnosis: recurrent symptomatic ascites TARAH HARLEY MD Sep 25, 2019 10:52 POS
--- NOTE | 2019-09-25 10:56 | Discharge Inst-Surgical ---
D/C Lap Instructions-CRICKET Follow Up PRN Activity as tolerated High Fiber Diet 25g or more per day Avoid Alcohol, Caffeine, Spicy [place] and Acid foods. Drink 64 fluid oz or more of fluids per day. Symptoms to Report: Fever over 101 degree F, Nausea/Vomiting If any problems/questions: Contact your physician or go to Emergency Room TARAH HARLEY MD Sep 25, 2019 10:56 POS
[2019-09-25] MEDS ORDERED: ACETAMINOPHEN 325 MG TABLET PO PRN (11:00)
[2019-09-25] MEDS ORDERED: morphine INJ 10 MG/ML 1ML (SYR OR VIAL) IVP PRN ×2 (11:00)
[2019-09-25] MEDS ORDERED: HYDROcodone/APAP 5 MG/325 MG (LORTAB) TAB PO ONE (11:00)
[2019-09-25] MEDS ORDERED: ONDANSETRON 4 MG/2 ML (SDV) Z0FRAN IVP PRN ×2 (11:00→12:15)
[2019-09-25] MEDS ORDERED: HYDR-3812 PO ×2 (11:26)
--- NOTE | 2019-09-25 11:51 | Progress Note-Post Operative ---
Post-Operative Progess Note Surgeon (s)/Pattern Stamper (s) Surgeon Dr. Kaiser Rose M.D. Pattern Stamper: None Pre-Operative Diagnosis recurrent symptomatic ascites Post-Operative Diagnosis Recurrent ascities, turbid yellow color, reflux esophagitis stage II, small hiatal hernia (1 cm), moderate gastritis Procedure & Operative Findings Date of Procedure 09/25/19 Procedure Performed/Findings Insertion of PleurX tunneled abdominal catheter and EGD with Biopsy Anesthesia Type MAC with local Estimated Blood Loss Estimated blood loss (mL): minimal Specimens/Packing Specimens Removed 1) peritoneal fluid 2) Antrum 3) GE junction TANO MARQUEZ LOAD MIXER Sep 25, 2019 11:51 POS
[2019-09-25] MEDS ORDERED: SUCR1TAB36 PO ×2 (11:52)
[2019-09-25] MEDS ORDERED: morphine INJ 10 MG/ML 1ML (SYR OR VIAL) IVP ONE (12:15)
[2019-09-25] MEDS ORDERED: HYDROmorphone 2 MG/ML VIAL (DILAUDID) IV ONE (12:15)
--- NOTE | 2019-09-25 12:47 | Anesthesia-General Post-Op ---
MAC Patient Condition Mental Status/LOC: Same as Preop Cardiovascular: Satisfactory Nausea/Vomiting: Absent Respiratory: Satisfactory Pain: Controlled Complications: Absent Post Op Complications Complications None Follow Up Care/Instructions Patient Instructions None needed. Anesthesiology Discharge Order Discharge Order Patient is doing well, no complaints, stable vital signs, no apparent adverse anesthesia problems. No complications reported per nursing. RISHI CAMPOS CRNA Sep 25, 2019 12:47 POS
[2019-09-25] MEDS ORDERED: HYDROcodone/APAP 5 MG/325 MG (LORTAB) TAB ONE (13:38)
--- NOTE | 2019-09-25 16:45 | OPERATIVE REPORT ---
DATE OF SERVICE: 09/25/2019 ATTENDING WATER SUPERINTENDENT: [facility]. PREOPERATIVE DIAGNOSES: History of Ebstein anomaly with recurrent symptomatic as ascites gastroesophageal reflux disease. POSTOPERATIVE DIAGNOSES: Reflux esophagitis stage II, small hiatal hernia 1.5 cm in size, moderate gastritis, turbid yellow fluid on placement of a paracentesis catheter. PROCEDURES PERFORMED: Placement of tunneled paracentesis catheter, esophagogastroduodenoscopy with biopsy. SURGEON: Tarah Harley MD. ANESTHESIA: Monitored anesthesia care with local. ESTIMATED BLOOD LOSS: Minimal. FINDINGS: Reflux esophagitis stage II, small hiatal hernia 1.5 cm in size, moderate gastritis, turbid yellow fluid on placement of a paracentesis catheter. DISPOSITION: The patient tolerated the procedure well. INDICATIONS: The patient is a 38-year-old female with a history of Ebstein anomaly. She has had previous surgeries before in the past; however, has needed further cardiac surgery. She has had recurrent pleural effusion and has required multiple paracentesis. She continues to be symptomatic and has been referred and seen by other consultants. However, due to a previous drug abuse, has had a problem having the procedure scheduled. She has had a recurrent significant ascites. She does not have any abdominal pain to indicate any infection and is otherwise tolerating a regular diet, having bowel movements. She does report that her reflux has worsened. This is most likely secondary to her significant ascites and pressure on the stomach. DESCRIPTION OF PROCEDURE: The patient was brought to the endoscopy suite, laid supine on the table. After adequate IV pain and sedative medications and monitored anesthesia care, the abdomen was prepped and draped in standard surgical fashion. A 0.5% Marcaine with epinephrine was used to anesthetize overlying skin to the right lower abdominal quadrant. Two transverse skin incisions were made approximately 5 cm apart using 11-blade. The catheter was then tunneled and then the peritoneal cavity was then accessed with a finder needle and the guidewire inserted without any resistance. The cannulating needle removed and the dilator and sheath were then introduced over the guidewire. The dilator and guidewire were then removed and the tunneled catheter was then placed into the peritoneal cavity and the sheath removed. Good hemostasis was observed. The small skin incisions were then closed using 4-0 nylon interrupted sutures. We then proceeded with evacuation 2 liters of peritoneal fluid, which was yellow turbid. One of these was contained, which was sent for culture and sensitivity. Catheter was then cleaned and covered with sterile Op-Site. Under the same anesthesia, we then proceeded with the EGD portion of the procedure. The mouthpiece was applied. The endoscope was placed in the mouth, visualizing the pharynx and hypopharyngeal region. Vocal cords, epiglottis and vallecula identified and appeared to be normal. The endoscope was then gently intubated. Esophageal opening and esophagus insufflated. Endoscope was then advanced to the first, second and third portion of the esophagus at the level of the GE junction, reflux esophagitis stage II identified. There were no ulcers or strictures identified in this region. A biopsy was taken with forceps with visualization of good hemostasis. The endoscope was then advanced in the stomach and endoscope retroflexed, visualizing a small hiatal hernia approximately 1.5 cm in size. There was a moderate severity gastritis. No formal ulcerations, polyps, or any neoplasms. A biopsy was taken of the stomach antrum to rule out H. pylori with visualization of good hemostasis. The endoscope was then advanced through the pylorus and the first and second portion of the duodenum, which appeared normal with no distal obstructions. The endoscope was then slowly withdrawn while taking a second look and suctioning of residual air with no additional findings. The patient tolerated the procedure well. We will start Carafate 1 gram q.i.d. for 2 weeks and p.r.n. She is already on Protonix 40 mg daily. We will also proceed with instructions to access and drain peritoneal fluid of approximately one liter every other day. Job ID: [id number] DocumentID: [id number] Dictated Date: 09/25/2019 12:05:23 Senior Core Java Developer Date: 09/25/2019 16:44:42 Dictated By: TARAH HARLEY MD [facility]
[2019-10-11] MEDS ORDERED: TRM50T (00:21)
== END 2019-09-25 14:15 | disposition home or self-care (01) ==
LOC: SDC 09:06
PROVIDERS: ATTEND Surgery
DX: R18.8 Other ascites (principal); K29.70 Gastritis, unspecified, without bleeding; K21.0 Gastro-esophageal reflux disease with esophagitis; K44.9 Diaphragmatic hernia without obstruction or gangrene; K31.89 Other diseases of stomach and duodenum; K58.9 Irritable bowel syndrome, unspecified; Q22.5 Ebstein's anomaly; I47.1 Supraventricular tachycardia; I48.92 Unspecified atrial flutter; J44.9 Chronic obstructive pulmonary disease, unspecified; M41.9 Scoliosis, unspecified; F31.9 Bipolar disorder, unspecified; F20.9 Schizophrenia, unspecified; Z88.1 Allergy status to other antibiotic agents; Z88.0 Allergy status to penicillin; Z88.2 Allergy status to sulfonamides; Z88.8 Allergy status to other drugs, medicaments and biological substances; Z79.899 Other long term (current) drug therapy; Z90.89 Acquired absence of other organs; Z90.49 Acquired absence of other specified parts of digestive tract; Z87.891 Personal history of nicotine dependence; Z90.710 Acquired absence of both cervix and uterus; Z95.2 Presence of prosthetic heart valve; Z80.8 Family history of malignant neoplasm of other organs or systems; Z80.49 Family history of malignant neoplasm of other genital organs
CPT/HCPCS: 87081; 88112; 88305

== ENCOUNTER 2019-09-26 05:00 | Emergency (ER) | payer MEDICAID ==
[~2019-09-26] VITALS: Ht 160 cm; Wt 63.0 kg
[~2019-09-26 05:00] MED LIST changes: +HYDR-3812 PO; +SUCR1TAB36 PO
--- NOTE | 2019-09-26 05:43 | ED Integumentary General ---
General Stated Complaint: DRAIN TUBE LEAKING Source: patient Exam Limitations: no limitations History of Present Illness Date Seen by Provider: Sep 26, 2019 Time Seen by Provider: 05:37 Initial Comments Patient presents ER by private conveyance with chief complaint of excessive leaking from around the drain tube in her right abdomen or ascites secondary to heart failure. He was placed yesterday by Dr. Rose, general surgery. She has change the dressing times about the night and has ran out of supplies. She is looking for a better option. She denies fevers chills nausea vomiting diarrhea. Allergies and Home Medications Allergies Coded Allergies: asenapine (Unverified Allergy, Severe, TOUNGE SWELLING, 03/31/19) Penicillins (Unverified Allergy, Unknown, 03/31/19) Sulfa (Sulfonamide Antibiotics) (Unverified Allergy, Unknown, 03/31/19) erythromycin base (Verified Allergy, Unknown, 03/31/19) peas (Verified Allergy, Unknown, 03/31/19) prochlorperazine (Verified Allergy, Unknown, 03/31/19) promethazine (Verified Allergy, Unknown, 01/31/06) promethazine HCl (Unverified Allergy, Unknown, 06/07/14) propoxyphene (Verified Allergy, Unknown, 11/26/05) Home Medications Albuterol Sulfate 6.7 Gm Hfa.aer.ad, 2 PUFF INH Q4H PRN for SHORTNESS OF BREATH, (Reported) Buspirone HCl 10 Mg Tablet, 10 MG PO BID, (Reported) LAST FILLED #60 07-28-19 Cefdinir 300 Mg Capsule, 300 MG PO BID Prescribed by: JAGDISH SCRUGGS on 09/12/19 0941 Cyclobenzaprine HCl 10 Mg Tablet, 10 MG PO BID, (Reported) Digoxin 125 Mcg Tablet, 125 MCG PO DAILY, (Reported) LAST FILLED #30 07-28-19 Diltiazem HCl 180 Mg Cap.er.24h, 180 MG PO DAILY, (Reported) LAST FILLED #30 07-28-19 Escitalopram Oxalate 20 Mg Tablet, 20 MG PO DAILY, (Reported) LAST FILLED #30 07-28-19 Furosemide 20 Mg Tablet, 40 MG PO DAILY, (Reported) TAKES 2 (20MG) TABLETS Hydrocodone/Acetaminophen 1 Each Tablet, 1-2 TAB PO Q6H Prescribed by: TANO MARQUEZ on 09/25/19 1126 Hydroxyzine Pamoate 25 Mg Capsule, 25 MG PO BID, (Reported) Levetiracetam 1,000 Mg Tablet, 1,000 MG PO BID, (Reported) Metoprolol Tartrate 25 Mg Tablet, 25 MG PO BID, (Reported) LAST FILLED #60 06-12-19 Mirtazapine 15 Mg Tablet, 15 MG PO HS, (Reported) LAST FILLED #30 06-30-19 Omeprazole 40 Mg Capsule.dr, 40 MG PO HS, (Reported) LAST FILLED 06-12-19 #30 Ondansetron 4 Mg Tab.rapdis, 4 MG PO Q4H Prescribed by: JAGDISH SCRUGGS on 09/12/19 0941 Polyethylene Glycol 3350 17 Gm Powd.pack, 17 GM PO BID PRN for CONSTIPATION-2ND LINE, (Reported) Potassium Chloride 20 Meq Tablet.er, 20 MEQ PO DAILY, (Reported) LAST FILLED #30 07-28-19 Risperidone 1 Mg Tablet, 1 MG PO BID, (Reported) Rivaroxaban 20 Mg Tablet, 20 MG PO DAILY, (Reported) Sucralfate 1 Gm Tablet, 1 GM PO QID Prescribed by: TANO MARQUEZ on 09/25/19 1152 Patient Home Medication List Home Medication List Reviewed: Yes Review of Systems Review of Systems Constitutional: No chills, No diaphoresis EENTM: No ear discharge, No ear pain Respiratory: No cough, No short of breath Cardiovascular: No chest pain, No edema Gastrointestinal: see HPI; No abdominal pain, No nausea, No vomiting Genitourinary: No decreased output, No discharge All Other Systems Reviewed Negative Unless Noted: Yes Past Pxczdlw-Nymphq-Qwqlgy Hx Patient Social History Alcohol Use: Occasionally Uses Alcohol Beverage of Choice: Beer, Cheap Liquor Recreational Drug Use: Yes Drug of Choice: THC Smoking Status: Current Everyday Smoker Type Used: Cigarettes 2nd Hand Smoke Exposure: Yes Recent Foreign Travel: No Contact w/Someone Who Travel: No Recent Hopitalizations: Yes (09/06/19) Immunizations Up To Date Tetanus Booster (TDap): Unknown PED Vaccines UTD: Yes Date of Pneumonia Vaccine: Oct 22, 2017 Date of Influenza Vaccine: Sep 06, 2019 Seasonal Allergies Seasonal Allergies: No Past Medical History Surgeries: Yes Abdominal, Appendectomy, Cardiac, Section, Gallbladder, Hysterectomy, Oophorectomy, Orthopedic, Pacemaker, Tubal Ligation, Valve Replacement Respiratory: Yes Asthma, Chronic Bronchitis, COPD, Emphysema Currently Using CPAP: No Currently Using BIPAP: No Cardiac: Yes Atrial Fibrillation, Chronic Edema/Swelling, Congenital Heart Disease, Heart Murmur, Hypertension, Irregular Heartbeat, Syncope, Valvular Heart Disease Neurological: Yes Seizure Disorder 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: Yes 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: 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 Sexually Transmitted Disease: No HIV/AIDS: No Genitourinary: Yes Neurogenic Bladder Gastrointestinal: Yes Gastroesophageal Reflux, Gastrointestinal Bleed, Hiatal Hernia, Ulcer, Irritable Bowel Musculoskeletal: Yes Degenerate Disk Disease, Fibromyalgia, Back Injury, Chronic Back Pain, Fractures Endocrine: No HEENT: Yes Loss of Vision: Bilateral Hearing Impairment: Denies Cancer: No Psychosocial: Yes ADD/ADHD, Anxiety, PTSD, Suicide Attempts, Bipolar, Personality Disorder, Depression Integumentary: Yes Blood Disorders: No Adverse Reaction/Blood Tranf: No Family Medical History Alcoholism 19 MOTHER Depression Depression Diabetes mellitus 19 MOTHER Drug abuse 19 MOTHER FH: cancer of genital organ 19 MOTHER No Pertinent Family Hx, Diabetes, Psychiatric Problems, Other Conditions/Hx Physical Exam Vital Signs Capillary Refill : General Appearance: WD/WN, no apparent distress HEENT: PERRL/EOMI, pharynx normal Neck: non-tender, full range of motion Cardiovascular: normal peripheral pulses, regular rate, rhythm, tachycardia (101) Respiratory: no respiratory distress, no accessory muscle use Gastrointestinal: normal bowel sounds, non tender, soft Extremities: normal range of motion, non-tender Neurologic/Psychiatric: alert, normal mood/affect, oriented x 3 Skin: other (moist skin over the right abdomen with a dressing in place. There is some serous fluid leaking out of the base of the insertion site of her drain tube. No purulence or erythema induration or fluctuance.) Progress/Results/Core Measures Progress Progress Note : Time: 05:40 Progress Note We removed her dressing clean her skin with chlorhexidine and sterile saline. We then dried her skin thoroughly and then reapplied a Allevite DRESSING around the base of the tube back by 2 large ABG pads and secured in place using Coban. We have provided the patient with some dressing supplies and instructions. We have encouraged her to follow-up with Dr. Rose if she needs further help. She has been instructed to change the dressings daily or as often as necessary for soiling. Departure Impression Primary Impression: Wound drainage Disposition: HOME, SELF-CARE Condition: Improved Departure-Patient Inst. Decision time for Depature: 05:42 Referrals: [facility] (PCP) Primary Care Physician FRANCHESKA HEADLEY (Family) Primary Care Physician TARAH ROSE MD Patient Instructions: How to Prevent Surgical Site Infections, Wound Care (DC) Add. Discharge Instructions: Skin clean with regular soap and water. Dry it. You may apply a thin layer of Vaseline on the skin to protect it from the moisture. Apply ABD pads around the base of the wound and secured in place using the Coban. Change the dressing is often as necessary for soiling or at least daily. Follow-up with general surgery in the clinic if you have any concerns. If you begin to experience fevers, pain, increasing redness or other worrisome symptoms then please return to the ER if after hours. JAIME FALL Sep 26, 2019 05:43 POS
[2019-09-26 05:45] VITALS: BP 110/74
[2019-10-11] MEDS ORDERED: TRM50T (00:21)
== END 2019-09-26 05:50 | disposition home or self-care (01) ==
LOC: EDUNIT# 05:00 → ER 05:02
DX: T81.89XA Other complications of procedures, not elsewhere classified, initial encounter (principal); J43.9 Emphysema, unspecified; I48.91 Unspecified atrial fibrillation; I10 Essential (primary) hypertension; G40.909 Epilepsy, unspecified, not intractable, without status epilepticus; K21.9 Gastro-esophageal reflux disease without esophagitis; K58.9 Irritable bowel syndrome, unspecified; M79.7 Fibromyalgia; F90.9 Attention-deficit hyperactivity disorder, unspecified type; F41.9 Anxiety disorder, unspecified; F43.10 Post-traumatic stress disorder, unspecified; F31.9 Bipolar disorder, unspecified; F60.9 Personality disorder, unspecified; F17.210 Nicotine dependence, cigarettes, uncomplicated; Z90.49 Acquired absence of other specified parts of digestive tract; Z90.710 Acquired absence of both cervix and uterus; Z98.51 Tubal ligation status; Z88.0 Allergy status to penicillin; Z88.2 Allergy status to sulfonamides; Z88.1 Allergy status to other antibiotic agents; Z88.8 Allergy status to other drugs, medicaments and biological substances; Z79.01 Long term (current) use of anticoagulants; Z80.9 Family history of malignant neoplasm, unspecified
CPT/HCPCS: 99285

== ENCOUNTER 2019-09-29 16:13 | Emergency (ER) | payer MEDICAID ==
[~2019-09-29] VITALS: Ht 160 cm; Wt 63.6 kg
[~2019-09-29 16:13] MED LIST changes: -DIGO125T3 PO; +DILT180C PO; -DILT180C85 PO; -DIPH25CA48 PO; +DIPH25CA6 PO; +DOXY100T19 PO; -DOXY100T31 PO; -OMEP40CA27 PO; +OMEP40CA36 PO
[2019-09-29] MEDS ORDERED: HYDROcodone/APAP 5 MG/325 MG (LORTAB) TAB PO ONE (18:15)
--- NOTE | 2019-09-29 18:32 | ED Abdominal Pain ---
General Chief Complaint: Trauma-Non Activation Stated Complaint: FELL ON SITE OF TUBE IN ABD Nursing Triage Note: Reports discomfort to abd drain. No redness, swelling, or drainage noted to site. Sepsis Screen: No Definite Risk Source of Information: Patient Exam Limitations: No Limitations History of Present Illness Date Seen by Provider: Sep 29, 2019 Time Seen by Provider: 18:15 Initial Comments 38-year-old female who presents to the emergency room with complaints of right lower quadrant abdominal wall pain after tripping and falling onto the area. She has a paracentesis drain in place. There is no redness, swelling, drainage, bleeding to the area. She reports that she tripped and fell over her dog. Location Injury Occurred: Home Timing/Duration: 1-3 Hours Associated Symptoms: Denies Symptoms Allergies and Home Medications Allergies Coded Allergies: asenapine (Unverified Allergy, Severe, TOUNGE SWELLING, 03/31/19) Penicillins (Unverified Allergy, Unknown, 03/31/19) Sulfa (Sulfonamide Antibiotics) (Unverified Allergy, Unknown, 03/31/19) erythromycin base (Verified Allergy, Unknown, 03/31/19) peas (Verified Allergy, Unknown, 03/31/19) prochlorperazine (Verified Allergy, Unknown, 03/31/19) promethazine (Verified Allergy, Unknown, 01/31/06) promethazine HCl (Unverified Allergy, Unknown, 06/07/14) propoxyphene (Verified Allergy, Unknown, 11/26/05) Home Medications Albuterol Sulfate 6.7 Gm Hfa.aer.ad, 2 PUFF INH Q4H PRN for SHORTNESS OF BREATH, (Reported) Buspirone HCl 10 Mg Tablet, 10 MG PO BID, (Reported) LAST FILLED #60 07-28-19 Cefdinir 300 Mg Capsule, 300 MG PO BID Prescribed by: JAGDISH SCRUGGS on 09/12/19 0941 Cyclobenzaprine HCl 10 Mg Tablet, 10 MG PO BID, (Reported) Digoxin 125 Mcg Tablet, 125 MCG PO DAILY, (Reported) LAST FILLED #30 07-28-19 Diltiazem HCl 180 Mg Cap.er.24h, 180 MG PO DAILY, (Reported) LAST FILLED #30 07-28-19 Escitalopram Oxalate 20 Mg Tablet, 20 MG PO DAILY, (Reported) LAST FILLED #30 07-28-19 Furosemide 20 Mg Tablet, 40 MG PO DAILY, (Reported) TAKES 2 (20MG) TABLETS Hydrocodone/Acetaminophen 1 Each Tablet, 1-2 TAB PO Q6H Prescribed by: TANO MARQUEZ on 09/25/19 1126 Hydroxyzine Pamoate 25 Mg Capsule, 25 MG PO BID, (Reported) Levetiracetam 1,000 Mg Tablet, 1,000 MG PO BID, (Reported) Metoprolol Tartrate 25 Mg Tablet, 25 MG PO BID, (Reported) LAST FILLED #60 06-12-19 Mirtazapine 15 Mg Tablet, 15 MG PO HS, (Reported) LAST FILLED #30 06-30-19 Omeprazole 40 Mg Capsule.dr, 40 MG PO HS, (Reported) LAST FILLED 06-12-19 #30 Ondansetron 4 Mg Tab.rapdis, 4 MG PO Q4H Prescribed by: JAGDISH SCRUGGS on 09/12/19 0941 Polyethylene Glycol 3350 17 Gm Powd.pack, 17 GM PO BID PRN for CONSTIPATION-2ND LINE, (Reported) Potassium Chloride 20 Meq Tablet.er, 20 MEQ PO DAILY, (Reported) LAST FILLED #30 07-28-19 Risperidone 1 Mg Tablet, 1 MG PO BID, (Reported) Rivaroxaban 20 Mg Tablet, 20 MG PO DAILY, (Reported) Sucralfate 1 Gm Tablet, 1 GM PO QID Prescribed by: TANO MARQUEZ on 09/25/19 1152 Patient Home Medication List Home Medication List Reviewed: Yes Review of Systems Review of Systems Constitutional: see HPI; No chills, No fever Gastrointestinal: See HPI, Other (abdominal wall pain) All Other Systems Reviewed Negative Unless Noted: Yes Past Pjgdhcj-Ohwtxc-Dxciko Hx Past Med/Social Hx: Reviewed Nursing Past Med/Soc Hx Patient Social History Alcohol Use: Rarely Uses Number of Drinks Today: 0 Alcohol Beverage of Choice: Beer, Cheap Liquor Recreational Drug Use: Yes (CRYSTAL, WEED, PILLS ET CLEAN FOR 2 MONTHS) Drug of Choice: THC Smoking Status: Current Everyday Smoker Type Used: Cigarettes 2nd Hand Smoke Exposure: Yes Recent Foreign Travel: No Contact w/Someone Who Travel: No Recent Infectious Disease Expo: No Recent Hopitalizations: Yes (09/06/19) Immunizations Up To Date Tetanus Booster (TDap): Unknown PED Vaccines UTD: Yes Date of Pneumonia Vaccine: Oct 22, 2017 Date of Influenza Vaccine: Sep 06, 2019 Seasonal Allergies Seasonal Allergies: No Past Medical History Surgeries: Yes Abdominal, Appendectomy, Cardiac, Section, Gallbladder, Hysterectomy, Oophorectomy, Orthopedic, Pacemaker, Tubal Ligation, Valve Replacement Respiratory: Yes Asthma, Chronic Bronchitis, COPD, Emphysema Currently Using CPAP: No Currently Using BIPAP: No Cardiac: Yes Atrial Fibrillation, Chronic Edema/Swelling, Congenital Heart Disease, Heart Murmur, Hypertension, Irregular Heartbeat, Syncope, Valvular Heart Disease Neurological: Yes Seizure Disorder 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: Yes 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: 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 Sexually Transmitted Disease: No HIV/AIDS: No Genitourinary: Yes Neurogenic Bladder Gastrointestinal: Yes Gastroesophageal Reflux, Gastrointestinal Bleed, Hiatal Hernia, Ulcer, Irritable Bowel Musculoskeletal: Yes Degenerate Disk Disease, Fibromyalgia, Back Injury, Chronic Back Pain, Fractures Endocrine: No HEENT: Yes Loss of Vision: Bilateral Hearing Impairment: Denies Cancer: No Psychosocial: Yes ADD/ADHD, Anxiety, PTSD, Suicide Attempts, Bipolar, Personality Disorder, Depression Integumentary: Yes Blood Disorders: No Adverse Reaction/Blood Tranf: No Family Medical History Reviewed Nursing Family Hx Alcoholism 19 MOTHER Depression Depression Diabetes mellitus 19 MOTHER Drug abuse 19 MOTHER FH: cancer of genital organ 19 MOTHER No Pertinent Family Hx, Diabetes, Psychiatric Problems, Other Conditions/Hx Physical Exam Vital Signs Vital Signs - First Documented 09/29/19 17:26 Temp 36.8 Pulse 65 Resp 17 B/P (MAP) 121/78 (92) Pulse Ox 100 O2 Delivery Room Air Capillary Refill : Less Than 3 Seconds Height/Weight/BMI Height: 5'3.00" Weight: 130lbs. 0.0oz. 58.512195an; 24.00 BMI Method:Stated General Appearance: WD/WN, no apparent distress Respiratory: chest non-tender, lungs clear, normal breath sounds, no respiratory distress, no accessory muscle use Cardiovascular: normal peripheral pulses, regular rate, rhythm, no edema, no gallop, no JVD, no murmur Gastrointestinal: normal bowel sounds, soft, no organomegaly, no pulsatile mass, other (tenderness surrounding her paracentesis.) Extremities: normal capillary refill Neurologic/Psychiatric: alert, normal mood/affect, oriented x 3 Skin: normal color, warm/dry Progress/Results/Core Measures Results/Orders My Orders Orders - BERNOT,MARA Hydrocodone/Apap 5/325 Tablet (Lortab 5 (09/29/19 18:15) Rx-Hydrocodone/Apap 5-325 Mg (Rx-Vicodin (09/29/19 18:45) Medications Given in ED Current Medications Medications Dose Ordered Sig/Norma Route Start Time Stop Time Status Last Admin Dose Admin Acetaminophen/ Hydrocodone Bitart 1 ea Q4H PRN PO 09/29/19 18:45 09/29/19 18:45 DC 09/29/19 18:39 1 EA Acetaminophen/ Hydrocodone Bitart 1 tab ONCE ONCE PO 09/29/19 18:15 09/29/19 18:16 DC 09/29/19 18:13 1 TAB Vital Signs/I&O 09/29/19 09/29/19 17:26 18:43 Temp 36.8 36.8 Pulse 65 72 Resp 17 16 B/P (MAP) 121/78 (92) 121/78 (92) Pulse Ox 100 100 O2 Delivery Room Air Room Air Blood Pressure Mean: 92 POS Progress Progress Note : Time: 18:30 Progress Note I have seen and evaluated the patient. Her pain is haven't improved with hydrocodone. She agrees with plan of care, plans for discharge, return precautions were given. Departure Impression Primary Impression: Abdominal wall pain Additional Impression: paracentesis drain in place Disposition: 01 HOME, SELF-CARE Condition: Stable/Unchanged Departure-Patient Inst. Decision time for Depature: 18:30 Referrals: [facility] [place] (PCP) Primary Care Physician FRANCHESKA HEADLEY (Family) Primary Care Physician Patient Instructions: Abdominal Paracentesis (DC) Add. Discharge Instructions: Take medication as directed. Follow up with Dr. Rose with in 1 week for recheck. Return to ED for worsening pain, bleeding, worsening symptoms or concerns as needed. All discharge instructions reviewed with patient and/or family. Voiced understanding. MARA LUNA Sep 29, 2019 18:31 POS
[2019-09-29 18:43] VITALS: BP 121/78
[2019-09-29] MEDS ORDERED: RX-HYDROCODONE/APAP 5/325 MG #4 TAB PK PO PRN (18:45)
== END 2019-09-29 18:43 | disposition home or self-care (01) ==
LOC: EDUNIT# 16:13 → ER 16:15
DX: R10.31 Right lower quadrant pain (principal); J43.9 Emphysema, unspecified; I10 Essential (primary) hypertension; I48.91 Unspecified atrial fibrillation; G40.909 Epilepsy, unspecified, not intractable, without status epilepticus; K21.9 Gastro-esophageal reflux disease without esophagitis; K58.9 Irritable bowel syndrome, unspecified; M79.7 Fibromyalgia; F90.9 Attention-deficit hyperactivity disorder, unspecified type; F41.9 Anxiety disorder, unspecified; F31.9 Bipolar disorder, unspecified; F60.9 Personality disorder, unspecified; F17.210 Nicotine dependence, cigarettes, uncomplicated; Z90.49 Acquired absence of other specified parts of digestive tract; Z90.710 Acquired absence of both cervix and uterus; Z98.51 Tubal ligation status; Z95.0 Presence of cardiac pacemaker; Z98.890 Other specified postprocedural states; Z88.0 Allergy status to penicillin; Z88.1 Allergy status to other antibiotic agents; Z88.2 Allergy status to sulfonamides; Z79.01 Long term (current) use of anticoagulants; Z80.49 Family history of malignant neoplasm of other genital organs; W01.0XXA Fall on same level from slipping, tripping and stumbling without subsequent striking against object, initial encounter
CPT/HCPCS: 99283

== ENCOUNTER 2019-10-01 18:18 | Inpatient (IN) | payer MEDICAID ==
[~2019-10-01] VITALS: Ht 160 cm; Wt 66.7 kg
[2019-10-01] VITALS (7 sets, daily range): BP systolic 97–112; BP diastolic 51–70
[2019-10-01 19:03] LABS: BASOPHILS # (AUTO) 0.1 10^3/uL (0.0-0.1); BASOPHILS % (AUTO) 0 % (0-10); EOSINOPHILS # (AUTO) 0.9 10^3/uL (0.0-0.3); EOSINOPHILS % (AUTO) 6 % (0-10); HEMATOCRIT 27 % (35-52); HEMOGLOBIN 8.7 G/DL (11.5-16.0); LYMPHOCYTES # (AUTO) 1.7 X 10^3 (1.0-4.0); LYMPHOCYTES % (AUTO) 10 % (12-44); MEAN CORPUSCULAR HEMOGLOBIN 21 PG (25-34); MEAN CORPUSCULAR HGB CONC 32 G/DL (32-36); MEAN CORPUSCULAR VOLUME 67 FL (80-99); MEAN PLATELET VOLUME 9.8 FL (7.4-10.4); MONOCYTES # (AUTO) 1.9 X 10^3 (0.0-1.0); MONOCYTES % (AUTO) 12 % (0-12); NEUTROPHILS # (AUTO) 12.2 X 10^3 (1.8-7.8); NEUTROPHILS % (AUTO) 72 % (42-75); PLATELET COUNT 654 10^3/uL (130-400); RED CELL DISTRIBUTION WIDTH 22.4 % (10.0-14.5); WHITE BLOOD COUNT 16.9 10^3/uL (4.3-11.0)
--- NOTE | 2019-10-01 19:05 | NUR ---
REPORT AND CARE OF PATIENT TO FILIBERTO.
[2019-10-01] MEDS ORDERED: fentaNYL INJECTION 100 MCG/2 ML AMP IVP ONE (19:15)
[2019-10-01 19:17] LABS: INR 2.2 (0.8-1.4); PROTHROMBIN TIME PATIENT 25.3 SEC (12.2-14.7)
--- NOTE | 2019-10-01 19:21 | ED General ---
General Chief Complaint: Catheter/Drain/Tube Problems Stated Complaint: ABD PAIN Nursing Triage Note: AMB TO ROOM HAS PARACENTESIS DRAIN IN PLACE TRIPPED 2 DAY AGO AND FELL ON SIDE. CONCERN THAT SHE IS HAVING A LOT OF PAIN REDNESS NOTED AROUND SITE. Nursing Sepsis Screen: No Definite Risk Source of Information: Patient Exam Limitations: No Limitations History of Present Illness Date Seen by Provider: Oct 01, 2019 Time Seen by Provider: 18:30 Initial Comments This 38-year-old woman with multiple severe medical problems presents to the emergency room with pain, erythema, and induration around her paracentesis drain. The drain was placed by Dr. Rose on September 25. She has used it once since then. She had a fall on September 29 and was seen in the ER after that time. No imaging was performed. Since then pain has escalated. She has had chills but is afebrile. There is a small pustule at an incision site inferior to the drain as well. Patient's primary care provider is Sascha Scott at [facility]. Allergies and Home Medications Allergies Coded Allergies: asenapine (Unverified Allergy, Severe, TOUNGE SWELLING, 03/31/19) Penicillins (Unverified Allergy, Unknown, 03/31/19) Sulfa (Sulfonamide Antibiotics) (Unverified Allergy, Unknown, 03/31/19) erythromycin base (Verified Allergy, Unknown, 03/31/19) peas (Verified Allergy, Unknown, 03/31/19) prochlorperazine (Verified Allergy, Unknown, 03/31/19) promethazine (Verified Allergy, Unknown, 01/31/06) promethazine HCl (Unverified Allergy, Unknown, 06/07/14) propoxyphene (Verified Allergy, Unknown, 11/26/05) Home Medications Albuterol Sulfate 6.7 Gm Hfa.aer.ad, 2 PUFF INH Q4H PRN for SHORTNESS OF BREATH, (Reported) Buspirone HCl 10 Mg Tablet, 10 MG PO BID, (Reported) LAST FILLED #60 07-28-19 Cefdinir 300 Mg Capsule, 300 MG PO BID Prescribed by: JAGDISH SCRUGGS on 09/12/19 0941 Cyclobenzaprine HCl 10 Mg Tablet, 10 MG PO BID, (Reported) Digoxin 125 Mcg Tablet, 125 MCG PO DAILY, (Reported) LAST FILLED #30 07-28-19 Diltiazem HCl 180 Mg Cap.er.24h, 180 MG PO DAILY, (Reported) LAST FILLED #30 07-28-19 Escitalopram Oxalate 20 Mg Tablet, 20 MG PO DAILY, (Reported) LAST FILLED #30 07-28-19 Furosemide 20 Mg Tablet, 40 MG PO DAILY, (Reported) TAKES 2 (20MG) TABLETS Hydrocodone/Acetaminophen 1 Each Tablet, 1-2 TAB PO Q6H Prescribed by: TANO MARQUEZ on 09/25/19 1126 Hydroxyzine Pamoate 25 Mg Capsule, 25 MG PO BID, (Reported) Levetiracetam 1,000 Mg Tablet, 1,000 MG PO BID, (Reported) Metoprolol Tartrate 25 Mg Tablet, 25 MG PO BID, (Reported) LAST FILLED #60 06-12-19 Mirtazapine 15 Mg Tablet, 15 MG PO HS, (Reported) LAST FILLED #30 06-30-19 Omeprazole 40 Mg Capsule.dr, 40 MG PO HS, (Reported) LAST FILLED 06-12-19 #30 Ondansetron 4 Mg Tab.rapdis, 4 MG PO Q4H Prescribed by: JAGDISH SCRUGGS on 09/12/19 0941 Polyethylene Glycol 3350 17 Gm Powd.pack, 17 GM PO BID PRN for CONSTIPATION-2ND LINE, (Reported) Potassium Chloride 20 Meq Tablet.er, 20 MEQ PO DAILY, (Reported) LAST FILLED #30 07-28-19 Risperidone 1 Mg Tablet, 1 MG PO BID, (Reported) Rivaroxaban 20 Mg Tablet, 20 MG PO DAILY, (Reported) Sucralfate 1 Gm Tablet, 1 GM PO QID Prescribed by: TANO MARQUEZ on 09/25/19 1152 Patient Home Medication List Home Medication List Reviewed: Yes Review of Systems Review of Systems Constitutional: see HPI EENTM: no symptoms reported Respiratory: no symptoms reported Cardiovascular: other (symptoms of heart failure and valvular disease) Gastrointestinal: see HPI Genitourinary: no symptoms reported : No Musculoskeletal: no symptoms reported Skin: see HPI Psychiatric/Neurological: No Symptoms Reported Hematologic/Lymphatic: No Symptoms Reported Immunological/Allergic: no symptoms reported Past Dyjjhor-Eqvskq-Ktlxjh Hx Past Med/Social Hx: Reviewed Nursing Past Med/Soc Hx Patient Social History Alcohol Use: Denies Use Number of Drinks Today: CC Alcohol Beverage of Choice: Beer, Cheap Liquor Recreational Drug Use: Yes (CRYSTAL, WEED, PILLS ET CLEAN FOR 2 MONTHS) Drug of Choice: THC Smoking Status: Current Everyday Smoker Type Used: Cigarettes 2nd Hand Smoke Exposure: Yes Recent Foreign Travel: No Contact w/Someone Who Travel: No Recent Infectious Disease Expo: No Recent Hopitalizations: Yes (09/06/19) Immunizations Up To Date Tetanus Booster (TDap): Unknown PED Vaccines UTD: Yes Date of Pneumonia Vaccine: Oct 22, 2017 Date of Influenza Vaccine: Sep 06, 2019 Seasonal Allergies Seasonal Allergies: No Past Medical History Surgeries: Yes Abdominal, Appendectomy, Cardiac, Section, Gallbladder, Hysterectomy, Oophorectomy, Orthopedic, Pacemaker, Tubal Ligation, Valve Replacement Respiratory: Yes Asthma, Chronic Bronchitis, COPD, Emphysema Currently Using CPAP: No Currently Using BIPAP: No Cardiac: Yes Atrial Fibrillation, Chronic Edema/Swelling, Congenital Heart Disease, Heart Murmur, Hypertension, Irregular Heartbeat, Syncope, Valvular Heart Disease Neurological: Yes Seizure Disorder 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: Yes 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: 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 Sexually Transmitted Disease: No HIV/AIDS: No Genitourinary: Yes Neurogenic Bladder Gastrointestinal: Yes Gastroesophageal Reflux, Gastrointestinal Bleed, Hiatal Hernia, Ulcer, Irritable Bowel Musculoskeletal: Yes Degenerate Disk Disease, Fibromyalgia, Back Injury, Chronic Back Pain, Fractures Endocrine: No HEENT: Yes Loss of Vision: Bilateral Hearing Impairment: Denies Cancer: No Psychosocial: Yes ADD/ADHD, Anxiety, PTSD, Suicide Attempts, Bipolar, Personality Disorder, D epression Integumentary: Yes Blood Disorders: No Adverse Reaction/Blood Tranf: No Family Medical History Alcoholism 19 MOTHER Depression Depression Diabetes mellitus 19 MOTHER Drug abuse 19 MOTHER FH: cancer of genital organ 19 MOTHER No Pertinent Family Hx, Diabetes, Psychiatric Problems, Other Conditions/Hx Physical Exam Vital Signs Vital Signs - First Documented 10/01/19 18:32 Temp 37.1 Pulse 107 Resp 18 B/P (MAP) 110/74 (86) Pulse Ox 97 O2 Delivery Room Air Capillary Refill : Less Than 3 Seconds Height, Weight, BMI Height: 5'3.00" Weight: 130lbs. 0.0oz. [id number]; 24.00 BMI Method:Stated General Appearance: WD/WN, Anxious, Mild Distress (secondary to pain and anxiety) HEENT: PERRL/EOMI, Normal ENT Inspection Neck: Normal Inspection Respiratory: Lungs Clear, Normal Breath Sounds, No Accessory Muscle Use, No Respiratory Distress Cardiovascular: No Edema, No Murmur, Irregularly Irregular Gastrointestinal: Normal Bowel Sounds, Soft, Distended (mildly), Other (there is tenderness, erythema, and induration around the drain insertion site. There is a healing incision inferior to the drain site with a small purulent pustule. There is fading erythema extending across much of the right abdomen and the midline.) Back: Normal Inspection Extremity: Normal Inspection, No Pedal Edema Neurologic/Psychiatric: Alert, Oriented x3, No Motor/Sensory Deficits, faculty administrator II- XII Norm as Tested, Other (anxious) Skin: Normal Color, Warm/Dry Focused Exam Sepsis Stage: Sepsis Possible Source: Skin/Soft Tissue Lactate Level 10/01/19 18:45: Lactic Acid Level 2.09*H 10/01/19 20:45: Lactic Acid Level 1.25 Time of Focused Exam: 21:31 Respiratory: Lungs Clear, Normal Breath Sounds, No Accessory Muscle Use, No Respiratory Distress Cardiovascular: Regular Rate, Rhythm, No Edema, No Murmur Capillary Refill: Less Than 3 Seconds Skin: normal color, warm/dry Lactic Acid Level Laboratory Tests Test 10/01/19 18:45 10/01/19 20:45 Lactic Acid Level 2.09 MMOL/L (0.50-2.00) *H 1.25 MMOL/L (0.50-2.00) Within 3hrs of presentation: Admin fluids, Admin ABX, Blood cultures prior to ABX's, Focus exam, Lactate level Progress/Results/Core Measures Suspected Sepsis Recent Fever Within 48 Hours: No Infection Criteria Present: None New/Unexplained Altered Menta: No Sepsis Screen: No Definite Risk SIRS Temperature: Pulse: 107 Respiratory Rate: 18 Laboratory Tests 10/01/19 18:45: White Blood Count 16.9H Blood Pressure 110 /74 Mean: 86 10/01/19 18:45: Lactic Acid Level 2.09*H 10/01/19 20:45: Lactic Acid Level 1.25 Laboratory Tests 10/01/19 18:45: Creatinine 0.83, INR Comment 2.2H, Platelet Count 654H, Total Bilirubin 1.1H Results/Orders Lab Results Laboratory Tests Test 10/01/19 18:45 10/01/19 19:20 12/11/19 20:45 Range/Units White Blood Count 16.9 H 4.3-11.0 10^3/uL Red Blood Count 4.11 L 4.35-5.85 10^6/uL Hemoglobin 8.7 L 11.5-16.0 G/DL Hematocrit 27 L 35-52 % Mean Corpuscular Volume 67 L 80-99 FL Mean Corpuscular Hemoglobin 21 L 25-34 PG Mean Corpuscular Hemoglobin Concent 32 32-36 G/DL Red Cell Distribution Width 22.4 H 10.0-14.5 % Platelet Count 654 H 130-400 10^3/uL Mean Platelet Volume 9.8 7.4-10.4 FL Neutrophils (%) (Auto) 72 42-75 % Lymphocytes (%) (Auto) 10 L 12-44 % Monocytes (%) (Auto) 12 0-12 % Eosinophils (%) (Auto) 6 0-10 % Basophils (%) (Auto) 0 0-10 % Neutrophils # (Auto) 12.2 H 1.8-7.8 X 10^3 Lymphocytes # (Auto) 1.7 1.0-4.0 X 10^3 Monocytes # (Auto) 1.9 H 0.0-1.0 X 10^3 Eosinophils # (Auto) 0.9 H 0.0-0.3 10^3/uL Basophils # (Auto) 0.1 0.0-0.1 10^3/uL Neutrophils % (Manual) 79 % Lymphocytes % (Manual) 10 % Monocytes % (Manual) 6 % Eosinophils % (Manual) 3 % Band Neutrophils 2 % Poikilocytosis MODERATE Anisocytosis SLIGHT Target Cells MODERATE Prothrombin Time 25.3 H 12.2-14.7 SEC INR Comment 2.2 H 0.8-1.4 Activated Partial Thromboplast Time 48 H 24-35 SEC Sodium Level 136 135-145 MMOL/L Potassium Level 4.1 3.6-5.0 MMOL/L Chloride Level 100 98-107 MMOL/L Carbon Dioxide Level 24 21-32 MMOL/L Anion Gap 12 5-14 MMOL/L Blood Urea Nitrogen 11 7-18 MG/DL Creatinine 0.83 0.60-1.30 MG/DL Estimat Glomerular Filtration Rate > 60 BUN/Creatinine Ratio 13 Glucose Level 111 H 70-105 MG/DL Lactic Acid Level 2.09 *H 1.25 0.50-2.00 MMOL/L Calcium Level 8.3 L 8.5-10.1 MG/DL Corrected Calcium 8.7 8.5-10.1 MG/DL Total Bilirubin 1.1 H 0.1-1.0 MG/DL Aspartate Amino Transf (AST/SGOT) 16 5-34 U/L Alanine Aminotransferase (ALT/SGPT) 10 0-55 U/L Alkaline Phosphatase 191 H 40-136 U/L C-Reactive Protein High Sensitivity 6.49 H 0.00-0.50 MG/DL Total Protein 7.5 6.4-8.2 GM/DL Albumin 3.5 3.2-4.5 GM/DL Urine Color ORANGE Urine Clarity CLEAR Urine pH 6.5 5-9 Urine Specific [place] 1.020 1.016-1.022 Urine Protein NEGATIVE NEGATIVE Urine Glucose (UA) NEGATIVE NEGATIVE Urine Ketones NEGATIVE NEGATIVE Urine Nitrite NEGATIVE NEGATIVE Urine Bilirubin 1+ H NEGATIVE Urine Urobilinogen 4.0 < = 1.0 MG/DL Urine Leukocyte Esterase NEGATIVE NEGATIVE Urine RBC (Auto) NEGATIVE NEGATIVE Urine RBC NONE /HPF Urine WBC NONE /HPF Urine Squamous Epithelial Cells 2-5 /HPF Urine Crystals NONE /LPF Urine Bacteria TRACE /HPF Urine Casts NONE /LPF Urine Mucus SMALL H /LPF Urine Culture Indicated CULTURE PENDING My Orders Orders - COLIN BRANNON MD Cbc With Automated Diff (10/01/19 18:46) Comprehensive Metabolic Panel (10/01/19 18:46) Blood Culture (10/01/19 18:46) Sputum Culture (10/01/19 18:46) Urinalysis (10/01/19 18:46) Urine Culture (10/01/19 18:46) Protime With Inr (10/01/19 18:46) Partial Thromboplastin Time (10/01/19 18:46) Chest 1 View, Ap/Pa Only (10/01/19 18:46) Ed Iv/Invasive Line Start (10/01/19 18:46) Ed Iv/Invasive Line Start (10/01/19 18:46) Vital Signs Adult Sepsis Patie Q15M (10/01/19 18:46) O2 (10/01/19 18:46) Remove Rings In Anticipation O (10/01/19 18:46) Lactic Acid Analyzer (10/01/19 18:46) Hs C Reactive Protein (10/01/19 18:46) Wound Culture (10/01/19 18:46) Body Fluid Culture (10/01/19 18:46) Manual Differential (10/01/19 18:45) Fentanyl Injection (Sublimaze Injection (10/01/19 19:15) Ct Abdomen/Pelvis W (10/01/19 19:15) Iohexol Injection (Omnipaque 350 Mg/Ml 1 (10/01/19 19:30) Received Contrast (Hold Metformin- Contr (10/01/19 19:30) Ns (Ivpb) (Sodium Chloride 0.9% Ivpb Bag (10/01/19 19:30) Meropenem (Merrem 1000 Mg) (10/01/19 19:45) Ns Iv 500 Ml (Sodium Chloride 0.9%) (10/01/19 19:45) Hydromorphone Injection (Dilaudid Inject (10/01/19 20:30) Meropenem (Merrem 500 Mg) (10/01/19 20:36) Water (Sterile) For Injection (Sterile W (10/01/19 20:36) Vancomycin Injection (Vancomycin Injecti (10/01/19 21:30) Oxycodone/Apap 5/325mg Tablet (Percocet (10/01/19 21:30) Vancomycin Injection (Vancomycin Injecti (10/01/19 21:34) Ns (Ivpb) (Sodium Chloride 0.9%) (10/01/19 21:34) Medications Given in ED Current Medications Medications Dose Ordered Sig/Norma Route Start Time Stop Time Status Last Admin Dose Admin Fentanyl Citrate 75 mcg ONCE ONCE IVP 10/01/19 19:15 10/01/19 19:16 DC 10/01/19 19:28 75 MCG Hydromorphone HCl 0.5 mg ONCE ONCE IV 10/01/19 20:30 10/01/19 20:31 DC 10/01/19 20:37 0.5 MG Iohexol 75 ml ONCE ONCE IV 10/01/19 19:30 10/01/19 19:31 DC 10/01/19 20:18 80 ML Meropenem 1000 mg/ Sterile Water 20 ml @ 240 mls/hr ONCE ONCE IV 10/01/19 19:45 10/01/19 19:49 DC 10/01/19 20:46 240 MLS/HR Oxycodone/ Acetaminophen 1 tab ONCE ONCE PO 10/01/19 21:30 10/01/19 21:31 DC 10/01/19 21:48 1 TAB Sodium Chloride 100 ml ONCE ONCE IV 10/01/19 19:30 10/01/19 19:31 DC 10/01/19 20:18 80 ML Sodium Chloride 500 ml @ 0 mls/hr Q0M ONCE IV 10/01/19 19:45 10/01/19 19:47 DC 10/01/19 20:35 500 MLS/HR Vancomycin HCl 750 mg/Sodium Chloride 100 ml @ 100 mls/hr ONCE ONCE IV 10/01/19 21:30 10/01/19 22:29 10/01/19 21:48 100 MLS/HR Vital Signs/I&O 10/01/19 10/01/19 10/01/19 18:32 19:31 19:45 Temp 37.1 37.3 Pulse 107 136 Resp 18 24 B/P (MAP) 110/74 (86) 110/53 Pulse Ox 97 99 O2 Delivery Room Air Room Air Capillary Refill : Less Than 3 Seconds Blood Pressure Mean: 86 POS Progress Note #1: Time: 19:28 Progress Note Fentanyl is being administered for pain. Septic workup is being pursued. The small pustule on the abdomen was first cleaned with alcohol and then neck with a scalpel for culture. Culture was sent. We will also send a culture of ascites fluid. Because of the noted induration and inflammatory signs around the insertion site, CT of the abdomen and pelvis is being obtained. Progress Note #2: Time: 21:43 Progress Note Patient meets criteria for sepsis due to tachycardia, leukocytosis, and lactic acid elevation. Lactic acid was greater than 2.0 and she therefore qualifies for severe sepsis. We will not be giving 30 ML per kilogram on this patient due to her history of heart failure and ascites. We will run her fluids at a slower rate and monitor her closely. Source of infection appears to be cellulitis of the abdominal wall and possibly bacterial peritonitis. Peritoneal fluid was cloudy and was sent for culture. Antibiotic therapy was started with meropenem and vancomycin in the emergency room. This antibiotic selection should cover for both intra-abdominal sources of infection and skin sources. CT scan showed no evidence for abscess beneath the indurated tissue at the drain insertion site. Patient has a penicillin allergy. Case was discussed with Dr. Rose. He recommended drawing a liter off of her ascites and he agrees with antibiotic selection. Case was also discussed with Dr. Velez. She agrees with management approach and agrees that we should avoid large fluid boluses in this patient due to her fragile cardiac status and tendency toward fluid overload. She did receive a normal saline 500 mL bolus while in the ER. Patient wishes to have a full CODE STATUS. She does not presently have a DURABLE POWER OF NURSING PROGRAM COORDINATOR but would like the following individuals to make decisions for her if needed: Lakesha Rinaldifin [phone] and Wingluis Mcconnell [phone]. She does not want her family involved in decision making. Pain has been treated with IV fentanyl and Dilaudid and followed with oral Percocet after review of CT scan. Diagnostic Imaging Diagonstic Imaging: Xray Plain Films/CT/US/NM/MRI: chest Comments Chest x-ray viewed by me and report reviewed. See report below: NAME: [facility]ANPK [employer] REC#: [id number] PT STATUS: REG ER : 1980 PHYSICIAN: COLIN BRANNON MD ADMIT DATE: 10/01/19/ER Signed Date of Exam:10/01/19 CHEST 1 VIEW, AP/PA ONLY INDICATION: Drain tube in the abdomen is possibly infected. COMPARISON STUDY: Chest from 09/12/2019. FINDINGS: Portable upright view of the chest demonstrates stable cardiomegaly and postoperative changes. The vascularity is normal. The lungs are clear. There are no pleural effusions. IMPRESSION: Stable chest. Dictated by: Dictated on workstation # [id number] Dict: 10/01/191930 Trans: 10/01/191954 [facility] [id number] Interpreted by: SHANTELLE BOUCHER MD Electronically signed by: SHANTELLE BOUCHER MD 10/01/191954 Diagonstic Imaging: CT Plain Films/CT/US/NM/MRI: abdomen, pelvis Comments CT abdomen and pelvis viewed by me and report reviewed. See report below: NAME: PK [facility] REC#: [id number] PT STATUS: REG ER : 1980 PHYSICIAN: COLIN BRANNON MD ADMIT DATE: 10/01/19/ER Draft Date of Exam:10/01/19 CT ABDOMEN/PELVIS W PROCEDURE: CT abdomen and pelvis with contrast. TECHNIQUE: Multiple contiguous axial images were obtained through the abdomen and pelvis after administration of intravenous contrast. Auto Exposure Controls were utilized during the CT exam to meet ALARA standards for radiation dose reduction. INDICATION: Severe abdominal pain. COMPARISON: 09/05/2019. FINDINGS: Lung bases are clear. Cardiomegaly. Partially visualized sternotomy. Cholecystectomy. Splenectomy. Abdominal drain enters the mid right abdomen and terminates in the left midabdomen. There remains a large amount of ascites. Anasarca. No free intraperitoneal air. The liver, pancreas, adrenals, kidneys, collecting systems and bladder are unremarkable. No evidence of bowel obstruction. Diffusely prominent mesenteric and retroperitoneal lymph nodes are similar to the prior exam. IMPRESSION: 1. New abdominal drain entering the right abdomen and terminating on the left. There remains a large amount of free fluid throughout the abdomen. 2. Examination is otherwise stable including anasarca and persistent diffuse prominence of the mesenteric and retroperitoneal lymph nodes may be related to fluid overload. Dictated on workstation # [id number] Dict: 10/01/192025 Trans: 10/01/192045 [facility] [id number] Interpreted by: AIMEE ATKINS MD Departure Communication (Admissions) Time/Spoke to Admitting Phy: 21:25 Dr. Velez 21:15 Dr. Rose 21:35 Dr. White Impression Primary Impression: Severe sepsis Additional Impressions: Cellulitis, abdominal wall Ascites Qualified Codes: R18.8 - Other ascites Atrial fibrillation Qualified Codes: I48.91 - Unspecified atrial fibrillation Disposition: ADMITTED INPATIENT Condition: Improved Admissions Decision to Admit Reason: Admit from ER (General) Decision to Admit/Date: Oct 01, 2019 Time/Decision to Admit Time: 18:35 Departure-Patient Inst. Referrals: [facility] [place] (PCP) Primary Care Physician FRANCHESKA SCOTT (Family) Primary Care Physician COLIN BRANNON MD Oct 01, 2019 19:21 POS
[2019-10-01 19:25] LABS: BAND NEUTROPHILS 2 %; EOSINOPHILS % (MANUAL) 3 %; LYMPHOCYTES % (MANUAL) 10 %; MONOCYTES % (MANUAL) 6 %; NEUTROPHILS % (MANUAL) 79 %
[2019-10-01 19:26] LABS: ANISOCYTOSIS SLIGHT; POIKILOCYTOSIS MODERATE; TARGET CELLS MODERATE
[2019-10-01 19:26] LABS: CLARITY,URINE CLEAR; COLOR,URINE ORANGE; GLUCOSE, URINE (UA) NEGATIVE (NEGATIVE); KETONES,URINE NEGATIVE (NEGATIVE); LEUKOCYTE ESTERASE ,URINE NEGATIVE (NEGATIVE); NITRITE,URINE NEGATIVE (NEGATIVE); PH,URINE 6.5 (5-9); PROTEIN,URINE NEGATIVE (NEGATIVE)
[2019-10-01 19:27] LABS: ALANINE AMINOTRANSFERASE 10 U/L (0-55); ALBUMIN 3.5 GM/DL (3.2-4.5); ALKALINE PHOSPHATASE 191 U/L (40-136); BILIRUBIN,TOTAL 1.1 MG/DL (0.1-1.0); BUN/CREATININE RATIO 13; CALCIUM 8.3 MG/DL (8.5-10.1); CARBON DIOXIDE 24 MMOL/L (21-32); CHLORIDE 100 MMOL/L (98-107); CREATININE SERUM 0.83 MG/DL (0.60-1.30); GFR ESTIMATED > 60; GLUCOSE 111 MG/DL (70-105); POTASSIUM 4.1 MMOL/L (3.6-5.0); SODIUM 136 MMOL/L (135-145); TOTAL PROTEIN 7.5 GM/DL (6.4-8.2)
[2019-10-01] MEDS ORDERED: HOLD METFORMIN - RECEIVED CONTRAST 20 ML VIAL IV SCH (19:30)
[2019-10-01] MEDS ORDERED: NS 100 ML (IVPB) BAG IV ONE (19:30)
[2019-10-01] MEDS ORDERED: IOHEXOL 350 MG/ML 100 ML (OMNIPAQUE 350) VIAL IV ONE (19:30)
--- NOTE | 2019-10-01 19:32 | Diagnostic Imaging Report ---
INDICATION: Drain tube in the abdomen is possibly infected. COMPARISON STUDY: Chest from 09/12/2019. FINDINGS: Portable upright view of the chest demonstrates stable cardiomegaly and postoperative changes. The vascularity is normal. The lungs are clear. There are no pleural effusions. IMPRESSION: Stable chest. Dictated by: Dictated on workstation # [id number]
[2019-10-01 19:36] LABS: BACTERIA,URINE TRACE /HPF
[2019-10-01 19:39] LABS: BILIRUBIN,URINE 1+ (NEGATIVE)
[2019-10-01] MEDS ORDERED: MEROPENEM 1,000 MG in WATER (STERILE) FOR INJECTION 20 ML IV ONE (19:45)
[2019-10-01] MEDS ORDERED: NS IV 500 ML 500 ML IV ONE (19:45)
[2019-10-01] MEDS ORDERED: HYDROmorphone 2 MG/ML VIAL (DILAUDID) IV ONE (20:30)
[2019-10-01] MEDS ORDERED: MEROPENEM 500 MG VIAL (MERREM) IV ONE (20:36)
[2019-10-01] MEDS ORDERED: WATER (STERILE) FOR INJECTION 20 ML ONE (20:36)
--- NOTE | 2019-10-01 20:46 | Diagnostic Imaging Report ---
PROCEDURE: CT abdomen and pelvis with contrast. TECHNIQUE: Multiple contiguous axial images were obtained through the abdomen and pelvis after administration of intravenous contrast. Auto Exposure Controls were utilized during the CT exam to meet ALARA standards for radiation dose reduction. INDICATION: Severe abdominal pain. COMPARISON: 09/05/2019. FINDINGS: Lung bases are clear. Cardiomegaly. Partially visualized sternotomy. Cholecystectomy. Splenectomy. Abdominal drain enters the mid right abdomen and terminates in the left midabdomen. There remains a large amount of ascites. Anasarca. No free intraperitoneal air. The liver, pancreas, adrenals, kidneys, collecting systems and bladder are unremarkable. No evidence of bowel obstruction. Diffusely prominent mesenteric and retroperitoneal lymph nodes are similar to the prior exam. IMPRESSION: 1. New abdominal drain entering the right abdomen and terminating on the left. There remains a large amount of free fluid throughout the abdomen. 2. Examination is otherwise stable including anasarca and persistent diffuse prominence of the mesenteric and retroperitoneal lymph nodes may be related to fluid overload. Dictated by: Dictated on workstation # [id number]
[2019-10-01] MEDS ORDERED: VANCOMYCIN INJECTION 750 MG in NS (IVPB) 100 ML IV ONE (21:30)
[2019-10-01] MEDS ORDERED: oxyCODONE/APAP 5/325MG (PERCOCET 5) TABLET PO ONE (21:30)
[2019-10-01] MEDS ORDERED: NS (IVPB) 250 ML ONE (21:34)
[2019-10-01] MEDS ORDERED: VANCOMYCIN 1000 MG/VIAL ONE (21:34)
[2019-10-01] MEDS ORDERED: NS IV 1000 ML 1,000 ML ONE (22:18)
[2019-10-01] MEDS: NS IV 1000 ML 1,000 ML IV SCH (23:49)
[2019-10-01] MEDS: MEROPENEM 500 MG/SWFI 10 ML IV PUSH IV SCH ×2 (23:49)
[2019-10-01] MEDS: oxyCODONE/APAP 5/325MG (PERCOCET 5) TABLET PO PRN (23:50)
[2019-10-02] VITALS (14 sets, daily range): BP systolic 93–119; BP diastolic 47–76
[2019-10-02] MEDS ORDERED: fentaNYL INJECTION 100 MCG/2 ML AMP ONE (02:28)
[2019-10-02] MEDS ORDERED: fentaNYL INJECTION 100 MCG/2 ML AMP IVP ONE (02:45)
--- NOTE | 2019-10-02 03:00 | NUR ---
This RN called EICU, pt reporting pain 10/. New orders received at this time, see order hx.
[2019-10-02 03:49] LABS: BASOPHILS # (AUTO) 0.1 10^3/uL (0.0-0.1); BASOPHILS % (AUTO) 0 % (0-10); EOSINOPHILS # (AUTO) 1.2 10^3/uL (0.0-0.3); EOSINOPHILS % (AUTO) 9 % (0-10); HEMATOCRIT 22 % (35-52); HEMOGLOBIN 7.1 G/DL (11.5-16.0); LYMPHOCYTES # (AUTO) 1.7 X 10^3 (1.0-4.0); LYMPHOCYTES % (AUTO) 12 % (12-44); MEAN CORPUSCULAR HEMOGLOBIN 21 PG (25-34); MEAN CORPUSCULAR HGB CONC 32 G/DL (32-36); MEAN CORPUSCULAR VOLUME 66 FL (80-99); MEAN PLATELET VOLUME 10.3 FL (7.4-10.4); MONOCYTES # (AUTO) 2.3 X 10^3 (0.0-1.0); MONOCYTES % (AUTO) 17 % (0-12); NEUTROPHILS # (AUTO) 8.6 X 10^3 (1.8-7.8); NEUTROPHILS % (AUTO) 62 % (42-75); PLATELET COUNT 532 10^3/uL (130-400); RED CELL DISTRIBUTION WIDTH 21.3 % (10.0-14.5); WHITE BLOOD COUNT 13.9 10^3/uL (4.3-11.0)
[2019-10-02 04:03] LABS: BUN/CREATININE RATIO 15; CALCIUM 7.6 MG/DL (8.5-10.1); CARBON DIOXIDE 21 MMOL/L (21-32); CHLORIDE 103 MMOL/L (98-107); CREATININE SERUM 0.68 MG/DL (0.60-1.30); GFR ESTIMATED > 60; GLUCOSE 111 MG/DL (70-105); MAGNESIUM 1.7 MG/DL (1.6-2.4); PHOSPHORUS 3.4 MG/DL (2.3-4.7); POTASSIUM 3.9 MMOL/L (3.6-5.0); SODIUM 134 MMOL/L (135-145)
[2019-10-02] MEDS ORDERED: LACTATED RINGERS 1,000 ML IV ONE (04:17)
[2019-10-02] MEDS ORDERED: MAGNESIUM 1 GM/100 ML IVPB 200 ML IV ONE (04:18)
[2019-10-02] MEDS: MAGNESIUM 1 GM/100 ML IVPB 100 ML IV SCH ×2 (04:28→06:31)
[2019-10-02] MEDS: LACTATED RINGERS 500 ML IV SCH ×2 (04:28→06:37)
[2019-10-02] MEDS: MEROPENEM 500 MG/SWFI 10 ML IV PUSH IV SCH ×6 (06:50→17:32)
[2019-10-02] MEDS: oxyCODONE/APAP 5/325MG (PERCOCET 5) TABLET PO PRN ×3 (06:54→14:47)
--- NOTE | 2019-10-02 08:06 | Diagnostic Imaging Report ---
INDICATION: Dyspnea and sepsis. Comparison made with prior examination of 10/01/2019. FINDINGS: There is cardiomegaly. There is no pleural effusion, pneumothorax or pneumonia. Mediastinum is unremarkable. Pacemaker overlies left hemithorax. IMPRESSION: No acute cardiopulmonary abnormality. Cardiomegaly. Dictated by: Dictated on workstation # [id number]
[2019-10-02] MEDS ORDERED: NICOTINE 21 MG (NICODERM) PATCH TD SCH (09:00)
[2019-10-02] MEDS: DIGOXIN 0.125 MG (LANOXIN) TAB PO SCH (09:23)
[2019-10-02] MEDS: DILTIAZEM 180 MG (CARDIZEM CD) CAP PO SCH (09:23)
[2019-10-02] MEDS: NICOTINE 21 MG (NICODERM) PATCH TD SCH (09:23)
[2019-10-02] MEDS: VANCOMYCIN 1 GM/NS 250 ML IVPB IV SCH ×4 (09:24→18:56)
[2019-10-02] MEDS: meTOprolol TARTRATE 25 MG (LOPRESSOR) TABLET PO SCH ×2 (09:28→20:03)
[2019-10-02] MEDS: NS IV 1000 ML 1,000 ML IV SCH ×2 (09:34→17:24)
--- NOTE | 2019-10-02 10:18 | NUR ---
Pastoral care visit.
[2019-10-02] MEDS ORDERED: SPIR25TA5 PO (11:05)
[2019-10-02] MEDS ORDERED: DILT180C54 PO (11:05)
[2019-10-02] MEDS ORDERED: HYDR-3812 PO (11:05)
[2019-10-02] MEDS ORDERED: SUCR1TAB PO (11:05)
[2019-10-02] MEDS ORDERED: KETO10TA PO (11:05)
[2019-10-02] MEDS ORDERED: ACET-2267 PO (11:06)
[2019-10-02] MEDS ORDERED: CALC300T4 PO (11:06)
--- NOTE | 2019-10-02 11:55 | NUR ---
PATIENT TO FORTH FLOOR VIA W/C AT THIS TIME. THIS RN WILL ASSUME CARE OF THIS PATIENT THROUGHOUT THE REMAINDER OF THIS SHIFT.
--- NOTE | 2019-10-02 13:23 | Consultation-Cardiology ---
HPI-Cardiology Cardiology Consultation: Date of Consultation 10/02/19 Time Seen by a Provider: 09:20 Date of Admission Attending Physician Betzaida Velez MD Admitting Physician [facility] Consulting Physician BRADLY BELL MD, MA, FACP, FACC, FSCAI, CCDS Primary tubing machine operator: Dr Harden HPI: Chief Complaint: CC: Discomfort at site of peritoneal drain placement HPI 38 yo woman who has multiple comorbidities (summarized below) who was admitted with increasing discomfort, redness, and hardness at site of peritoneal tunnel cath placed by Dr Rose on 09/25/19. Denies fever or chills Does not report cp or palp or syncope or leg swelling Has chronic, moderate, exertional shortness of breath Denies syncope Does not report recent N/V/D Review of Systems-Cardiology Review of Systems Constitutional: malaise, tiredness; No weight loss, No weight gain Eyes: No vision change Ears/Nose/Throat: No ear discharge, No nasal drainage, No recent hearing loss Respiratory: As described under HPI Cardiovascular: As described under HPI Gastrointestinal: As described under HPI Genitourinary: No dysuria, No hematuria, No urine frequency changes : No Musculoskeletal: back pain (chronic) Skin: No rash, No ulcerations Psychiatric/Neurological: No seizure, No focal weakness, No syncope Hematologic: No bleeding abnormalities RSD-Gkqlws-Czmbyr Hx Patient Social History Alcohol Use: Denies Use Recreational Drug Use: Yes (CRYSTAL, WEED, PILLS ET CLEAN FOR 2 MONTHS) Drug of Choice: THC Smoking Status: Current Everyday Smoker Type Used: Cigarettes 2nd Hand Smoke Exposure: Yes Recent Foreign Travel: No Recent Infectious Disease Expo: No Hospitalization with Isolation: Denies Immunizations Up To Date Tetanus Booster (TDap): Unknown Date of Pneumonia Vaccine: Oct 22, 2017 Date of Influenza Vaccine: Sep 06, 2019 Past Medical History PMH As described under Assessment. Family Medical History Family Medical History: No reported family h/o premature CAD or SCD. Family History: Alcoholism 19 MOTHER Depression Depression Diabetes mellitus 19 MOTHER Drug abuse 19 MOTHER FH: cancer of genital organ 19 MOTHER Allergies and Home Medications Allergies Coded Allergies: asenapine (Unverified Allergy, Severe, TOUNGE SWELLING, 03/31/19) Penicillins (Unverified Allergy, Unknown, 03/31/19) Sulfa (Sulfonamide Antibiotics) (Unverified Allergy, Unknown, 03/31/19) erythromycin base (Verified Allergy, Unknown, 03/31/19) peas (Verified Allergy, Unknown, 03/31/19) prochlorperazine (Verified Allergy, Unknown, 03/31/19) promethazine (Verified Allergy, Unknown, 01/31/06) promethazine HCl (Unverified Allergy, Unknown, 06/07/14) propoxyphene (Verified Allergy, Unknown, 11/26/05) Home Medications Acetaminophen 500 Mg Tablet, 1,000 MG PO Q4H PRN for PAIN-MILD (1-4), (Reported) Albuterol Sulfate 6.7 Gm Hfa.aer.ad, 2 PUFF INH Q4H PRN for SHORTNESS OF BREATH, (Reported) Buspirone HCl 10 Mg Tablet, 10 MG PO BID, (Reported) Calcium Carbonate 300 Mg Tab.chew, 300 MG PO QID PRN for INDIGESTION, (Reported) Cyclobenzaprine HCl 10 Mg Tablet, 10 MG PO BID, (Reported) LAST FILLED #60 08-11-19 Digoxin 125 Mcg Tablet, 125 MCG PO DAILY, (Reported) Diltiazem HCl 180 Mg Cap.er.24h, 180 MG PO DAILY, (Reported) Escitalopram Oxalate 20 Mg Tablet, 20 MG PO DAILY, (Reported) LAST FILLED #30 07-28-19 Furosemide 20 Mg Tablet, 20 MG PO 1100,1600, (Reported) LAST FILLED #60 08-11-19 Hydrocodone/Acetaminophen 1 Each Tablet, 1-2 TAB PO Q4-6HR PRN for PAIN-MODERATE (5-7), (Reported) Hydroxyzine Pamoate 25 Mg Capsule, 25 MG PO BID, (Reported) Ketorolac Tromethamine 10 Mg Tablet, 10 MG PO Q6H PRN for MUSCLE SPASMS, (Reported) Levetiracetam 1,000 Mg Tablet, 1,000 MG PO BID, (Reported) LAST FILLED #60 08-11-19 Metoprolol Tartrate 25 Mg Tablet, 25 MG PO BID, (Reported) Mirtazapine 15 Mg Tablet, 15 MG PO HS, (Reported) Omeprazole 40 Mg Capsule.dr, 40 MG PO HS, (Reported) LAST FILLED 06-12-19 #30 Polyethylene Glycol 3350 17 Gm Powd.pack, 17 GM PO BID PRN for CONSTIPATION-2ND LINE, (Reported) Potassium Chloride 20 Meq Tablet.er, 20 MEQ PO 1100, (Reported) LAST FILLED #30 07-28-19 Risperidone 1 Mg Tablet, 1 MG PO BID, (Reported) LAST FILLED #60 08-11-19 Rivaroxaban 20 Mg Tablet, 20 MG PO DAILY, (Reported) LAST FILLED #30 08-11-19 Spironolactone 25 Mg Tablet, 25 MG PO BID, (Reported) Sucralfate 1 Gm Tablet, 1 GM PO QID, (Reported) Patient Home Medication List Home Medication List Reviewed: Yes Physical Exam-Cardiology Physical Exam Vital Signs/I&O 10/02/19 10/02/19 10/02/19 10/02/19 02:00 03:00 04:00 04:00 Temp 36.8 Pulse 72 64 Resp 16 24 B/P (MAP) 98/60 (73) 97/63 (74) Pulse Ox 92 94 O2 Delivery Room Air Room Air Room Air 10/02/19 10/02/19 10/02/19 10/02/19 04:00 05:00 06:00 07:00 Pulse 63 63 72 90 Resp 19 15 17 B/P (MAP) 95/52 (66) 115/72 (86) 107/72 (84) Pulse Ox 92 93 92 O2 Delivery Room Air Room Air Room Air 10/02/19 10/02/19 10/02/19 10/02/19 07:00 08:00 08:00 09:00 Pulse 90 86 98 Resp 19 10 19 B/P (MAP) 116/70 (85) 110/62 (78) 119/76 (90) Pulse Ox 95 90 O2 Delivery Room Air Room Air Room Air Room Air 10/02/19 12:16 Temp 35.9 Pulse 79 Resp 20 B/P (MAP) 106/54 (71) Pulse Ox 99 O2 Delivery Room Air 10/02/19 00:00 Intake Total 520 ml Balance 520 ml Capillary Refill : Less Than 3 Seconds Constitutional: AAO x 3, well-developed, well-nourished HEENT: EOMI, hearing is well preserved; No xanthelasmas are seen Neck: carotid pulses are 2 + bilaterally, with good upstrokes Respiratory: No accessory muscle use; other (fair to good bilateral air entry) Cardiovascular: irregularly irregular, S1 and S2, systolic murmur (2/6 JAMES at card base) Gastrointestinal: No tender; soft; No guarding, No rebound; other (site of peritoneal cath in the R lateral abdomen under dressing that we did not remove) Extremities: No clubbing, No cyanosis, No significant edema Neurologic/Psychiatric: oriented x 3, other (moves all limbs equally) Skin: normal color, warm/dry; No rash on exposed areas, No ulcerations on exposed areas Data Review Labs Laboratory Tests 10/01/19 18:45: White Blood Count 16.9H, Red Blood Count 4.11L, Hemoglobin 8.7L, Hematocrit 27L, Mean Corpuscular Volume 67L, Mean Corpuscular Hemoglobin 21L, Mean Corpuscular H emoglobin Concent 32, Red Cell Distribution Width 22.4H, Platelet Count 654H, Mean Platelet Volume 9.8, Neutrophils (%) (Auto) 72, Lymphocytes (%) (Auto) 10L, Monocytes (%) (Auto) 12, Eosinophils (%) (Auto) 6, Basophils (%) (Auto) 0, Neutrophils # (Auto) 12.2H, Lymphocytes # (Auto) 1.7, Monocytes # (Auto) 1.9H, Eosinophils # (Auto) 0.9H, Basophils # (Auto) 0.1, Neutrophils % (Manual) 79, Lymphocytes % (Manual) 10, Monocytes % (Manual) 6, Eosinophils % (Manual) 3, Band Neutrophils 2, Poikilocytosis MODERATE, Anisocytosis SLIGHT, Target Cells MODERATE, Prothrombin Time 25.3H, INR Comment 2.2H, Activated Partial Thro mboplast Time 48H, Sodium Level 136, Potassium Level 4.1, Chloride Level 100, Carbon Dioxide Level 24, Anion Gap 12, Blood Urea Nitrogen 11, Creatinine 0.83, Estimat Glomerular Filtration Rate > 60, BUN/Creatinine Ratio 13, Glucose Level 111H, Lactic Acid Level 2.09*H, Calcium Level 8.3L, Corrected Calcium 8.7, Total Bilirubin 1.1H, Aspartate Amino Transf (AST/SGOT) 16, Alanine Aminotransferase (ALT/SGPT) 10, Alkaline Phosphatase 191H, C-Reactive Protein High Sensitivity 6.49H, Total Protein 7.5, Albumin 3.5 10/01/19 19:20: Urine Color ORANGE, Urine Clarity CLEAR, Urine pH 6.5, Urine Specific [place] 1.020, Urine Protein NEGATIVE, Urine Glucose (UA) NEGATIVE, Urine Ketones NEGATIVE, Urine Nitrite NEGATIVE, Urine Bilirubin 1+H, Urine Urobilinogen 4.0, Urine Leukocyte Esterase NEGATIVE, Urine RBC (Auto) NEGATIVE, Urine RBC NONE, Urine WBC NONE, Urine Squamous Epithelial Cells 2-5, Urine Crystals NONE, Urine Bacteria TRACE, Urine Casts NONE, Urine Mucus SMALLH, Urine Culture Indicated CULTURE PENDING 10/01/19 20:45: Lactic Acid Level 1.25 10/02/19 03:25: White Blood Count 13.9H, Red Blood Count 3.36L, Hemoglobin 7.1L, Hematocrit 22L, Mean Corpuscular Volume 66L, Mean Corpuscular Hemoglobin 21L, Mean Corpuscular Hemoglobin Concent 32, Red Cell Distribution Width 21.3H, Platelet Count 532H, Mean Platelet Volume 10.3, Neutrophils (%) (Auto) 62, Lymphocytes (%) (Auto) 12, Monocytes (%) (Auto) 17H, Eosinophils (%) (Auto) 9, Basophils (%) (Auto) 0, Neutrophils # (Auto) 8.6H, Lymphocytes # (Auto) 1.7, Monocytes # (Auto) 2.3H, Eosinophils # (Auto) 1.2H, Basophils # (Auto) 0.1, Sodium Level 134L, Potassium Level 3.9, Chloride Level 103, Carbon Dioxide Level 21, Anion Gap 10, Blood Urea Nitrogen 10, Creatinine 0.68, Estimat Glomerular Filtration Rate > 60, BUN/Creatinine Ratio 15, Glucose Level 111H, Calcium Level 7.6L, Phosphorus Level 3.4, Magnesium Level 1.7 Laboratory Tests 10/01/19 18:45 10/02/19 03:25 A/P-Cardiology Assessment/Admission Diagnosis Cellulitis around the site of paracentesis tunnel catheter placed by Dr Rose on 09/25/19 H/o recurrent ascites and intermittent spontaneous bacterial peritonitis H/o tobacco and drug abuse that she is not will to quit Anemia, etiology undetermined, managed by the [facility] [place] History of Ebstein's anomaly, treated with surgery, according to the patient, but she does not recall details. States has had Tricuspid valve replaced twice, can't recall what hospital the last revision was at Last echo of 09/10/2019 (Dr Mahoney) shows normal LV function with dilated RV with severe tricuspid regurgitation and a tricuspid prosthesis Persistent atrial fibrillation Cardiac pacemaker, multiple revisions (by history), followed and managed by her airplane woodworker Dr Salomon in [place], [place] Discussion and Recomendations * Continue bb, ccb, dig for vent rate control * Continue rivaroxaban for stroke prophylaxis * Anemia and cellulitis management is with the Med [facility] * Monitor labs Clinical Quality Measures DVT/VTE Risk/Contraindication: Risk Factor Score Per Nursin RFS Level Per Nursing on Admit: 4+=Very High BRADLY BELL MD FACP [facility] CCDS Oct 02, 2019 13:23 POS
--- NOTE | 2019-10-02 13:28 | NUR ---
Pt transported to fourth floor rm [id number]. Report given to Bernadette RN at 1155. Rn to assume care at this time
[2019-10-02] MEDS: ONDANSETRON 4 MG/2 ML (SDV) Z0FRAN IV PRN (14:47)
[2019-10-02] MEDS: RIVAROXABAN 20 MG TABLET (XARELTO) PO SCH (17:26)
--- NOTE | 2019-10-02 17:57 | NUR ---
2 liters serous fluids drained from paracentesis drain per Dr. Rose's orders. This RN will continue to monitor this patient throughout the remainder of this shift.
[2019-10-02] MEDS ORDERED: MEROPENEM 500 MG in WATER (STERILE) FOR INJECTION 10 ML IV SCH (18:00)
[2019-10-02] MEDS ORDERED: NON-FORMULARY MEDICATION 1 EA EA (Polyethylene Glycol 3350 (Miralax) 17 GM) PO PRN (19:45)
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
[2019-10-02] MEDS ORDERED: POLYETHYLENE GLYCOL 17 GM (MIRALAX) PACK PO PRN (20:00)
[2019-10-02] MEDS: risperiDONE 1 MG (RisperDAL) TAB PO SCH (20:03)
[2019-10-02] MEDS: SUCRALFATE 1 GM (CARAFATE) TAB PO SCH (20:03)
[2019-10-02] MEDS: oxyCODONE/APAP 7.5-325 MG (PERCOCET 7.5) TABLET PO PRN (20:03)
[2019-10-02] MEDS: MIRTAZAPINE 15 MG (REMERON) TAB PO SCH (20:03)
[2019-10-02] MEDS: LEVETIRACETAM 1,000 MG (KEPPRA) TABLET PO SCH (20:03)
[2019-10-02] MEDS: ZOLPIDEM 5 MG (AMBIEN) TAB PO SCH (20:03)
[2019-10-02] MEDS: PANTOPRAZOLE 40 MG (PROTONIX) TAB PO SCH (20:03)
[2019-10-02] MEDS: SPIRONOLACTONE 25 MG (ALDACTONE) TAB PO SCH (20:04)
[2019-10-02] MEDS ORDERED: RISPERIDONE 1 MG PO SCH (21:00)
[2019-10-02] MEDS ORDERED: NON-FORMULARY MEDICATION 1 EA EA (Omeprazole 40 MG) PO SCH (21:00)
[2019-10-02] MEDS ORDERED: NON-FORMULARY MEDICATION 1 EA EA (Mirtazapine 15 MG) PO SCH (21:00)
[2019-10-03] VITALS (7 sets, daily range): BP systolic 102–114; BP diastolic 58–74
--- NOTE | 2019-10-03 | NUR ---
REPORT RECEIVED FROM JOI FORBES
[2019-10-03] MEDS: MEROPENEM 500 MG/SWFI 10 ML IV PUSH IV SCH ×8 (00:02→18:25)
--- NOTE | 2019-10-03 00:36 | CONSULTATION REPORT ---
DATE OF SERVICE: 10/02/2019 ATTENDING PHYSICIAN: Sascha Scott APRN at [facility]. HISTORY OF PRESENT ILLNESS: The patient is a 38-year-old female who is known to us. She has a history of Melchor anomaly. She had previous surgeries before in the past; however, needed further cardiac surgery. She has had recurrent pleural effusions and required multiple paracentesis. She has continued to be symptomatic and has been referred to us and seen by other consultants. She has had a history of previous drug abuse, has had a problem having the procedure scheduled. She does continue to have recurrent ascites. On 09/25/2019, the patient did undergo placement of a tunneled paracentesis catheter as well as an EGD with biopsy. Findings are reflux esophagitis stage II and a small hiatal hernia that is 1.5 cm in size as well as a moderate gastritis. There was a turbid yellow fluid on the placement of the paracentesis catheter. She did tolerate the procedure well and was discharged home later that day. Since being discharged, she has complained of continued pain that has been increasing since her discharge. She has been seen in the ER twice since she was discharged from her procedure and then returned again yesterday for complaints of continued pain, erythema as well as an induration around her paracentesis drain. She reports that she had only used it once since having this placed; however, she did have a fall on 09/29 and then was seen in the ER at that time. She did report that she has had chills, but has remained afebrile. There was a small pustule noted at the incision site just inferior to the drain. She did have an elevated white count at that time at 16.9. PAST MEDICAL HISTORY: Melchor anomaly, depression, constipation, gastroesophageal reflux disease, hypertension, history of drug abuse, atrial fibrillation, edema, endometriosis, irritable bowel, peptic ulcer disease, degenerative disk disease, fibromyalgia, chronic back pain, anxiety, bipolar, ADHD, previous suicide attempts, COPD. PAST SURGICAL HISTORY: Appendectomy, , cholecystectomy, hysterectomy, oophorectomy, pacemaker placement, tubal ligation, heart valve replacement, orthopedic procedure. ALLERGIES: PENICILLIN, SULFA, ASENAPINE, ERYTHROMYCIN, PROCHLORPERAZINE, PROMETHAZINE, PROPOXYPHENE. MEDICATIONS: Albuterol inhaler 2 puffs q.4 hours p.r.n., buspirone 10 mg b.i.d., cefdinir 300 mg b.i.d., cyclobenzaprine 10 mg b.i.d., digoxin 100 mcg daily, diltiazem 180 mg daily, Lexapro 20 mg daily, furosemide 40 mg daily, hydrocodone q.6 hours p.r.n., hydroxyzine 25 mg b.i.d., Keppra 1000 mg b.i.d., metoprolol 25 mg b.i.d., mirtazapine 15 mg at bedtime, omeprazole 40 mg at bedtime, ondansetron 4 mg q.4 hours, MiraLax 17 grams b.i.d. p.r.n., potassium chloride 20 mEq daily, risperidone 1 mg b.i.d., rivaroxaban 20 mg daily, sucralfate 1 gram q.i.d. SOCIAL HISTORY: Positive for smoke history, drug abuse with methamphetamine, marijuana; positive for alcohol. FAMILY HISTORY: Mother, alcoholism, depression, diabetes, drug abuse, some cancer of the female organs. LABORATORY DATA: WBC is 13.9, RBC 3.36, hemoglobin 7.1, hematocrit 22, platelets 532. Sodium is 134, potassium 3.9, chloride 104, BUN 10, creatinine 0.68, calcium 7.6, phosphorus 3.4, magnesium 1.7. REVIEW OF SYSTEMS: This is a well-nourished, chronically ill female, in no acute distress. She is not experiencing any shortness of breath or difficulty breathing. No chest pain, palpitations or diaphoresis. She does report occasional episodes of nausea, but no vomiting. No diarrhea or constipation. No red blood per rectum. No dark tarry stools. She does report abdominal pain. No fever, but does report chills. All other review of systems negative. PHYSICAL EXAMINATION: VITAL SIGNS: Temperature 36.8 degrees Celsius, pulse 76, respirations 18, blood pressure is 105/60, pulse ox is 97% on room air. CHEST: Clear. Good breath sounds bilaterally. HEART: Irregular. No murmurs. EXTREMITIES: No lower extremity edema. Negative Homans sign. HEENT: No scleral icterus. NECK: No cervical lymphadenopathy. ABDOMEN: Soft, mildly distended with some tenderness. There is some mild erythema around the catheter insertion site. No palpable mass. No organomegaly. SKIN: Warm, dry and pink. NEUROLOGIC: Awake, alert and oriented x3. ASSESSMENT AND PLAN: A 38-year-old female with ascites as well as abdominal wall cellulitis, who was admitted yesterday through the emergency room and did meet sepsis criteria. She was started on IV antibiotics and did have a liter of abdominal fluid removed at that time. We will continue with IV fluids, antibiotics as well as pain, nausea medication as needed. She may also need the tunneled catheter removed from the abdomen to help prevent any further as well as continued infection. The patient verbalized understanding of instructions. Job ID: [id number] DocumentID: [id number] Dictated Date: 10/02/2019 19:17:00 Foley Artist Date: 10/02/2019 23:05:08 Dictated By: SONDRA MALONE
[2019-10-03] MEDS: oxyCODONE/APAP 7.5-325 MG (PERCOCET 7.5) TABLET PO PRN ×4 (00:47→12:40)
[2019-10-03 04:59] LABS: BASOPHILS % (AUTO) 0 % (0-10); EOSINOPHILS % (AUTO) 8 % (0-10); HEMATOCRIT 25 % (35-52); HEMOGLOBIN 7.8 G/DL (11.5-16.0); LYMPHOCYTES # (AUTO) 1.5 X 10^3 (1.0-4.0); LYMPHOCYTES % (AUTO) 11 % (12-44); MEAN CORPUSCULAR HEMOGLOBIN 21 PG (25-34); MEAN CORPUSCULAR HGB CONC 32 G/DL (32-36); MEAN CORPUSCULAR VOLUME 66 FL (80-99); MEAN PLATELET VOLUME 9.5 FL (7.4-10.4); MONOCYTES # (AUTO) 1.7 X 10^3 (0.0-1.0); MONOCYTES % (AUTO) 13 % (0-12); NEUTROPHILS # (AUTO) 8.7 X 10^3 (1.8-7.8); NEUTROPHILS % (AUTO) 67 % (42-75); PLATELET COUNT 625 10^3/uL (130-400); RED CELL DISTRIBUTION WIDTH 22.2 % (10.0-14.5); WHITE BLOOD COUNT 12.9 10^3/uL (4.3-11.0)
[2019-10-03 05:16] LABS: BUN/CREATININE RATIO 11; CALCIUM 7.7 MG/DL (8.5-10.1); CARBON DIOXIDE 20 MMOL/L (21-32); CHLORIDE 105 MMOL/L (98-107); CREATININE SERUM 0.62 MG/DL (0.60-1.30); GFR ESTIMATED > 60; GLUCOSE 117 MG/DL (70-105); MAGNESIUM 1.8 MG/DL (1.6-2.4); PHOSPHORUS 3.3 MG/DL (2.3-4.7); SODIUM 133 MMOL/L (135-145)
[2019-10-03] MEDS: VANCOMYCIN 1 GM/NS 250 ML IVPB IV SCH ×4 (06:37→19:38)
--- NOTE | 2019-10-03 08:34 | Diagnostic Imaging Report ---
INDICATION: Sepsis COMPARISON: 10/02/2019 TECHNIQUE: Single radiograph of the chest dated 10/03/2019. FINDINGS: Pacer device is again identified with the battery pack overlying left chest. Extensive postsurgical changes involving the thoracic spine are again noted. The cardiac silhouette is enlarged, though stable. No significant pulmonary vascular congestion. The right lung appears clear. Trace left pleural effusion. No pneumothorax. No acute osseous abnormality. IMPRESSION: Stable cardiomegaly without overt congestive heart failure. Trace left pleural effusion. Additional postsurgical and chronic findings as above. Dictated by: Dictated on workstation # [id number]
[2019-10-03] MEDS: DILTIAZEM 180 MG (CARDIZEM CD) CAP PO SCH (08:36)
[2019-10-03] MEDS: meTOprolol TARTRATE 25 MG (LOPRESSOR) TABLET PO SCH ×2 (08:36→21:15)
[2019-10-03] MEDS: SUCRALFATE 1 GM (CARAFATE) TAB PO SCH ×4 (08:36→21:15)
[2019-10-03] MEDS: DIGOXIN 0.125 MG (LANOXIN) TAB PO SCH (08:36)
[2019-10-03] MEDS: NICOTINE 21 MG (NICODERM) PATCH TD SCH (08:37)
[2019-10-03] MEDS: risperiDONE 1 MG (RisperDAL) TAB PO SCH ×2 (08:37→21:15)
[2019-10-03] MEDS: LEVETIRACETAM 1,000 MG (KEPPRA) TABLET PO SCH ×2 (08:37→21:14)
[2019-10-03] MEDS: SPIRONOLACTONE 25 MG (ALDACTONE) TAB PO SCH ×2 (08:37→21:15)
[2019-10-03] MEDS ORDERED: NON-FORMULARY MEDICATION 1 EA EA (Escitalopram Oxalate 20 MG) PO SCH (09:00)
--- NOTE | 2019-10-03 09:20 | NUR ---
800 CC CLOUDY LOOKING YELLOWISH LIQUID REMOVED FROM PARACENTESIS SITE TO RIGHT ABD. AREA. PARACENTESIS AREA WITH REDNESS AROUND IT AND EXCORIATED AROUND TUBE.
[2019-10-03] MEDS: MUPIROCIN 2% OINT 22 GM (BACTROBAN) TUBE NSEACH SCH ×2 (12:41→21:15)
[2019-10-03] MEDS: oxyCODONE/APAP 10/325MG (PERCOCET 10) TABLET PO PRN ×2 (14:44→18:24)
--- NOTE | 2019-10-03 14:49 | Progress Note ---
Subjective Date Seen by a Provider: Oct 03, 2019 Time Seen by a Provider: 14:40 Subjective/Events-last exam doing ok no new complaints. no fever/chills. hx non-compliance. positive staph ascitic fluid. on vanco. Focused Exam Lactate Level 10/01/19 18:45: Lactic Acid Level 2.09*H 10/01/19 20:45: Lactic Acid Level 1.25 Time of Focused Exam: 21:31 Objective Exam Vital Signs Date Time Temp Pulse Resp B/P (MAP) Pulse Ox O2 Delivery O2 Flow Rate FiO2 10/03/19 12:53 121 10/03/19 12:00 36.6 73 20 107/67 (80) 98 Room Air 10/03/19 08:00 36.6 86 16 113/73 (86) 97 Room Air 10/03/19 06:41 83 10/03/19 04:00 36.9 89 18 102/59 (73) 96 Room Air 10/03/19 01:00 73 10/03/19 00:00 36.2 83 18 107/58 (74) 92 Room Air 10/02/19 21:00 93 Room Air 10/02/19 20:00 37.2 79 20 106/57 (73) 93 Room Air 10/02/19 19:00 75 10/02/19 16:00 36.8 76 18 105/60 (75) 97 Room Air I & O 10/03/19 07:00 Intake Total 3950 ml Output Total 1100 ml Balance 2850 ml Capillary Refill : Less Than 3 Seconds General Appearance: No Apparent Distress HEENT: PERRL/EOMI Neck: Full Range of Motion Respiratory: Chest Non Tender, Normal Breath Sounds Cardiovascular: Regular Rate, Rhythm Gastrointestinal: soft, distended Extremity: Normal Capillary Refill Neurologic/Psychiatric: Alert, Oriented x3 Skin: Normal Color Lymphatic: No Adenopathy Results Lab Laboratory Tests 10/03/19 04:45: White Blood Count 12.9H, Red Blood Count 3.75L, Hemoglobin 7.8L, Hematocrit 25L, Mean Corpuscular Volume 66L, Mean Corpuscular Hemoglobin 21L, Mean Corpuscular Hemoglobin Concent 32, Red Cell Distribution Width 22.2H, Platelet Count 625H, Mean Platelet Volume 9.5, Neutrophils (%) (Auto) 67, Lymphocytes (%) (Auto) 11L, Monocytes (%) (Auto) 13H, Eosinophils (%) (Auto) 8, Basophils (%) (Auto) 0, Neutrophils # (Auto) 8.7H, Lymphocytes # (Auto) 1.5, Monocytes # (Auto) 1.7H, Eosinophils # (Auto) 1.0H, Basophils # (Auto) 0.0, Sodium Level 133L, Potassium Level 4.0, Chloride Level 105, Carbon Dioxide Level 20L, Anion Gap 8, Blood Urea Nitrogen 7, Creatinine 0.62, Estimat Glomerular Filtration Rate > 60, BUN/Creatinine Ratio 11, Glucose Level 117H, Calcium Level 7.7L, Phosphorus Level 3.3, Magnesium Level 1.8 Microbiology 10/01/19 Blood Culture - Preliminary, Resulted No growth 10/01/19 Gram Stain - Final, Resulted 10/01/19 Body Fluid Culture - Preliminary, Resulted Staphylococcus aureus 10/01/19 MRSA Screen - Final, Complete 10/01/19 Urine Culture - Final, Complete NO GROWTH 10/01/19 Gram Stain - Final, Resulted 10/01/19 Wound Culture - Preliminary, Resulted Staphylococcus aureus Assessment/Plan Assessment/Plan Assess & Plan/Chief Complaint julio 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 continue vanco. will eventually need this tunneled catheter removed as well. Clinical Quality Measures DVT/VTE Risk/Contraindication: Risk Factor Score Per Nursin RFS Level Per Nursing on Admit: 4+=Very High TARAH HARLEY MD Oct 03, 2019 14:49 POS
[2019-10-03] MEDS: RIVAROXABAN 20 MG TABLET (XARELTO) PO SCH (18:28)
--- NOTE | 2019-10-03 19:26 | Progress Note - Cardiology ---
Cardiology SOAP Progress Note Subjective: No cp or palp or syncope Still has tenderness at site of peritoneal catheter Gen malaise No N/V Objective: I&O/Vital Signs 10/03/19 10/03/19 10/03/19 10/03/19 08:00 08:00 12:00 12:53 Temp 36.6 36.6 Pulse 86 73 121 Resp 16 20 B/P (MAP) 113/73 (86) 107/67 (80) Pulse Ox 93 97 98 O2 Delivery Room Air Room Air Room Air 10/03/19 16:00 Temp 36.8 Pulse 86 Resp 20 B/P (MAP) 113/73 (86) Pulse Ox 96 O2 Delivery Room Air 10/03/19 00:00 Intake Total 2360 ml Balance 2360 ml Weight (Pounds): 130 Weight (Ounces): 0.0 Weight (Calculated Kilograms): 58.502027 Constitutional: AAO x 3, well-developed, well-nourished Respiratory: No accessory muscle use; other (fair to good bilateral air entry) Cardiovascular: irregularly irregular, S1 and S2, systolic murmur (2/6 JAMES at card base) Gastrointestional: No tender; soft; No guarding, No rebound; other (site of per itoneal cath in the R lateral abdomen under dressing that we did not remove) Extremities: No clubbing, No cyanosis, No significant edema Neurologic/Psychiatric: oriented x 3, other (moves all limbs equally) Skin: normal color, warm/dry; No rash on exposed areas, No ulcerations on exposed areas Results/Procedures: Labs Laboratory Tests 10/03/19 04:45: White Blood Count 12.9H, Red Blood Count 3.75L, Hemoglobin 7.8L, Hematocrit 25L, Mean Corpuscular Volume 66L, Mean Corpuscular Hemoglobin 21L, Mean Corpuscular Hemoglobin Concent 32, Red Cell Distribution Width 22.2H, Platelet Count 625H, Mean Platelet Volume 9.5, Neutrophils (%) (Auto) 67, Lymphocytes (%) (Auto) 11L, Monocytes (%) (Auto) 13H, Eosinophils (%) (Auto) 8, Basophils (%) (Auto) 0, Neutrophils # (Auto) 8.7H, Lymphocytes # (Auto) 1.5, Monocytes # (Auto) 1.7H, Eosinophils # (Auto) 1.0H, Basophils # (Auto) 0.0, Sodium Level 133L, Potassium Level 4.0, Chloride Level 105, Carbon Dioxide Level 20L, Anion Gap 8, Blood Urea Nitrogen 7, Creatinine 0.62, Estimat Glomerular Filtration Rate > 60, BUN/Creatinine Ratio 11, Glucose Level 117H, Calcium Level 7.7L, Phosphorus Level 3.3, Magnesium Level 1.8 Microbiology 10/01/19 Blood Culture - Preliminary, Resulted No growth 10/01/19 Gram Stain - Final, Resulted 10/01/19 Body Fluid Culture - Preliminary, Resulted Staphylococcus aureus 10/01/19 MRSA Screen - Final, Complete 10/01/19 Urine Culture - Final, Complete NO GROWTH 10/01/19 Gram Stain - Final, Resulted 10/01/19 Wound Culture - Preliminary, Resulted Staphylococcus aureus Laboratory Tests 10/02/19 03:25 10/03/19 04:45 A/P: Assessment: Cellulitis around the site of paracentesis tunnel catheter placed by Dr Rose on 09/25/19 H/o recurrent ascites and intermittent spontaneous bacterial peritonitis H/o tobacco and drug abuse that she is not will to quit Anemia, etiology undetermined, managed by the Med Svce History of Ebstein's anomaly, treated with surgery, according to the patient, but she does not recall details. 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
[2019-10-03] MEDS: MIRTAZAPINE 15 MG (REMERON) TAB PO SCH (21:15)
[2019-10-03] MEDS: ZOLPIDEM 5 MG (AMBIEN) TAB PO SCH (21:15)
[2019-10-03] MEDS: PANTOPRAZOLE 40 MG (PROTONIX) TAB PO SCH (21:15)
--- NOTE | 2019-10-03 21:37 | Progress Note ---
Subjective Subjective/Events-last exam Patient complains of pain this AM. OOB walking on unit. Tolerating PO diet. Review of Systems General: No Chills, No Fatigue Pulmonary: No Dyspnea, No Cough Cardiovascular: Palpitations; No: Chest Pain Gastrointestinal: Abdominal Pain Focused Exam Lactate Level 10/01/19 18:45: Lactic Acid Level 2.09*H 10/01/19 20:45: Lactic Acid Level 1.25 Time of Focused Exam: 21:31 Objective Exam Last Set of Vital Signs Vital Signs Date Time Temp Pulse Resp B/P (MAP) Pulse Ox O2 Delivery O2 Flow Rate FiO2 10/03/19 19:50 36.6 96 18 108/68 (81) 91 Room Air Capillary Refill : Less Than 3 Seconds I&O Intake and Output 10/03/19 00:00 Intake Total 4140 ml Output Total 450 ml Balance 3690 ml Intake Oral 1900 ml IV Total 2240 ml Output Urine Total 450 ml # Voids 9 General: Alert, Oriented X3, Cooperative, No Acute Distress Lungs: Clear to Auscultation, Normal Air Movement Heart: Regular Rate, No Murmurs Abdomen: Normal Bowel Sounds, Other (distended, ttp R>L, + fluid wave) Results/Procedures Lab Laboratory Tests 10/03/19 04:45: White Blood Count 12.9H, Red Blood Count 3.75L, Hemoglobin 7.8L, Hematocrit 25L, Mean Corpuscular Volume 66L, Mean Corpuscular Hemoglobin 21L, Mean Corpuscular Hemoglobin Concent 32, Red Cell Distribution Width 22.2H, Platelet Count 625H, Mean Platelet Volume 9.5, Neutrophils (%) (Auto) 67, Lymphocytes (%) (Auto) 11L, Monocytes (%) (Auto) 13H, Eosinophils (%) (Auto) 8, Basophils (%) (Auto) 0, Neutrophils # (Auto) 8.7H, Lymphocytes # (Auto) 1.5, Monocytes # (Auto) 1.7H, Eosinophils # (Auto) 1.0H, Basophils # (Auto) 0.0, Sodium Level 133L, Potassium Level 4.0, Chloride Level 105, Carbon Dioxide Level 20L, Anion Gap 8, Blood Urea Nitrogen 7, Creatinine 0.62, Estimat Glomerular Filtration Rate > 60, BUN/Creatinine Ratio 11, Glucose Level 117H, Calcium Level 7.7L, Phosphorus Level 3.3, Magnesium Level 1.8 Microbiology 10/01/19 Blood Culture - Preliminary, Resulted No growth 10/01/19 Gram Stain - Final, Resulted 10/01/19 Body Fluid Culture - Preliminary, Resulted Staphylococcus aureus 10/01/19 MRSA Screen - Final, Complete 10/01/19 Urine Culture - Final, Complete NO GROWTH 10/01/19 Gram Stain - Final, Resulted 10/01/19 Wound Culture - Preliminary, Resulted Staphylococcus aureus Assessment/Plan Assessment/Plan (1) Severe sepsis Status: Acute Assessment & Plan: - Concerns for SBP, Lactic acid elevated on admit now resolved, patient did not get full 30 ml/kg per protocol due to heart disease and ascites, Started on Meropneum, ascitic fluid for culture and skin wound for culture. Dr Rose consulted due to recent catheter placement 10/03: Sepsis resolved, Culture with Staph, patient on Vancomycin (2) Cellulitis, abdominal wall Status: Acute (3) Microcytic anemia Status: Chronic Assessment & Plan: - Iron studies pending (4) recurrent symptomatic ascites Status: Chronic Assessment & Plan: - Dr Rose managing, Will likely need catheter removed (5) Seizure disorder Status: Acute Assessment & Plan: - Continue home keppra (6) Polysubstance abuse Status: Acute (7) Atrial fibrillation Status: Acute Assessment & Plan: - Cardiology consulted, appreciate recommendations, Patient on Xarelto Qualifiers: Qualified Codes: I48.91 - Unspecified atrial fibrillation (8) DVT prophylaxis Status: Acute Assessment & Plan: - Xarelto Clinical Quality Measures DVT/VTE Risk/Contraindication: Risk Factor Score Per Nursin RFS Level Per Nursing on Admit: 4+=Very High WILL ORTIZ MD Oct 03, 2019 21:37 POS
[2019-10-04] MEDS: MEROPENEM 500 MG/SWFI 10 ML IV PUSH IV SCH ×8 (00:19→17:08)
[2019-10-04] MEDS: oxyCODONE/APAP 10/325MG (PERCOCET 10) TABLET PO PRN ×5 (04:21→22:13)
[2019-10-04 04:45] VITALS: BP 120/80
[2019-10-04 05:55] LABS: BASOPHILS # (AUTO) 0.1 10^3/uL (0.0-0.1); BASOPHILS % (AUTO) 0 % (0-10); EOSINOPHILS % (AUTO) 7 % (0-10); HEMATOCRIT 26 % (35-52); HEMOGLOBIN 8.2 G/DL (11.5-16.0); LYMPHOCYTES # (AUTO) 1.4 X 10^3 (1.0-4.0); LYMPHOCYTES % (AUTO) 10 % (12-44); MEAN CORPUSCULAR HEMOGLOBIN 21 PG (25-34); MEAN CORPUSCULAR HGB CONC 32 G/DL (32-36); MEAN CORPUSCULAR VOLUME 66 FL (80-99); MEAN PLATELET VOLUME 9.5 FL (7.4-10.4); MONOCYTES # (AUTO) 1.4 X 10^3 (0.0-1.0); MONOCYTES % (AUTO) 10 % (0-12); NEUTROPHILS # (AUTO) 9.9 X 10^3 (1.8-7.8); NEUTROPHILS % (AUTO) 72 % (42-75); PLATELET COUNT 619 10^3/uL (130-400); RED CELL DISTRIBUTION WIDTH 21.7 % (10.0-14.5); WHITE BLOOD COUNT 13.8 10^3/uL (4.3-11.0)
--- NOTE | 2019-10-04 05:59 | NUR ---
1650 CC CLOUDY LOOKING YELLOWISH LIQUID REMOVED FROM PARACENTESIS SITE TO RIGHT ABD. AREA. PARACENTESIS AREA WITH REDNESS AROUND IT AND EXCORIATED AROUND TUBE.
[2019-10-04 06:15] LABS: BUN/CREATININE RATIO 10; CALCIUM 8.1 MG/DL (8.5-10.1); CARBON DIOXIDE 21 MMOL/L (21-32); CHLORIDE 102 MMOL/L (98-107); CREATININE SERUM 0.62 MG/DL (0.60-1.30); GFR ESTIMATED > 60; GLUCOSE 120 MG/DL (70-105); MAGNESIUM 1.8 MG/DL (1.6-2.4); POTASSIUM 4.6 MMOL/L (3.6-5.0); SODIUM 132 MMOL/L (135-145)
[2019-10-04] MEDS: VANCOMYCIN 1 GM/NS 250 ML IVPB IV SCH ×4 (07:40→20:01)
[2019-10-04] MEDS: MUPIROCIN 2% OINT 22 GM (BACTROBAN) TUBE NSEACH SCH ×2 (07:49→20:31)
[2019-10-04 08:00] VITALS: BP 101/60
[2019-10-04] MEDS: SUCRALFATE 1 GM (CARAFATE) TAB PO SCH ×4 (09:00→20:28)
[2019-10-04] MEDS: NICOTINE 21 MG (NICODERM) PATCH TD SCH (09:00)
[2019-10-04] MEDS: SPIRONOLACTONE 25 MG (ALDACTONE) TAB PO SCH ×2 (09:00→20:28)
[2019-10-04] MEDS: DILTIAZEM 180 MG (CARDIZEM CD) CAP PO SCH (09:00)
[2019-10-04] MEDS: risperiDONE 1 MG (RisperDAL) TAB PO SCH ×2 (09:00→20:28)
[2019-10-04] MEDS: meTOprolol TARTRATE 25 MG (LOPRESSOR) TABLET PO SCH ×2 (09:00→20:30)
[2019-10-04] MEDS: LEVETIRACETAM 1,000 MG (KEPPRA) TABLET PO SCH ×2 (09:00→20:28)
[2019-10-04] MEDS: DIGOXIN 0.125 MG (LANOXIN) TAB PO SCH (09:00)
--- NOTE | 2019-10-04 10:19 | Diagnostic Imaging Report ---
INDICATION: Sepsis. Portable chest obtained at 04:13 a.m. is compared to yesterday. FINDINGS: There is cardiomegaly and poststernotomy change with unchanged pacemaker device. There is no focal infiltrate or pneumothorax or pleural fluid. Spinal rods are unchanged. IMPRESSION: Cardiomegaly with unchanged pacemaker device. No pneumothorax or pleural fluid or focal infiltrate. Dictated by: Dictated on workstation # [id number]
--- NOTE | 2019-10-04 11:27 | Progress Note ---
Subjective Date Seen by a Provider: Oct 04, 2019 Time Seen by a Provider: 10:50 Subjective/Events-last exam Patient seen with Dr. Rose. Patient reports doing better. Was able to sleep last night and believes that this helped. Still having abdominal pain but is improving slowly. No Fever/chills. Passing flatus but no BM yet. Tolerating diet. Did drain off 2 liters this AM of abdominal fluid. Focused Exam Lactate Level 10/01/19 18:45: Lactic Acid Level 2.09*H 10/01/19 20:45: Lactic Acid Level 1.25 Time of Focused Exam: 21:31 Objective Exam Vital Signs Date Time Temp Pulse Resp B/P (MAP) Pulse Ox O2 Delivery O2 Flow Rate FiO2 10/04/19 08:20 Room Air 10/04/19 08:00 36.4 110 20 101/60 (74) 99 Room Air 10/04/19 07:00 110 10/04/19 04:45 37.0 112 20 120/80 (93) 97 Room Air 10/04/19 01:00 100 10/03/19 23:30 35.9 93 16 114/74 (87) 94 Room Air 10/03/19 21:00 Room Air 10/03/19 19:50 36.6 96 18 108/68 (81) 91 Room Air 10/03/19 19:00 83 10/03/19 16:00 36.8 86 20 113/73 (86) 96 Room Air 10/03/19 12:53 121 10/03/19 12:00 36.6 73 20 107/67 (80) 98 Room Air I & O 10/04/19 07:00 Intake Total 1834 ml Output Total 1900 ml Balance -66 ml Capillary Refill : Less Than 3 Seconds General Appearance: No Apparent Distress, Chronically ill Neck: Full Range of Motion, Normal Inspection, Non Tender, Supple Respiratory: Normal Breath Sounds, No Accessory Muscle Use, No Respiratory Distress Cardiovascular: Regular Rate, Rhythm, No Murmur Gastrointestinal: normal bowel sounds, distended, tenderness Extremity: Normal Capillary Refill, Normal Inspection, Normal Range of Motion Neurologic/Psychiatric: Alert, Oriented x3 Skin: Normal Color, Warm/Dry Results Lab Laboratory Tests 10/04/19 05:27: White Blood Count 13.8H, Red Blood Count 3.91L, Hemoglobin 8.2L, Hematocrit 26L, Mean Corpuscular Volume 66L, Mean Corpuscular Hemoglobin 21L, Mean Corpuscular Hemoglobin Concent 32, Red Cell Distribution Width 21.7H, Platelet Count 619H, Mean Platelet Volume 9.5, Neutrophils (%) (Auto) 72, Lymphocytes (%) (Auto) 10L, Monocytes (%) (Auto) 10, Eosinophils (%) (Auto) 7, Basophils (%) (Auto) 0, Neutrophils # (Auto) 9.9H, Lymphocytes # (Auto) 1.4, Monocytes # (Auto) 1.4H, Eosinophils # (Auto) 1.0H, Basophils # (Auto) 0.1, Sodium Level 132L, Potassium Level 4.6, Chloride Level 102, Carbon Dioxide Level 21, Anion Gap 9, Blood Urea Nitrogen 6L, Creatinine 0.62, Estimat Glomerular Filtration Rate > 60, BUN/Creatinine Ratio 10, Glucose Level 120H, Calcium Level 8.1L, Phosphorus Lev el 3.0, Magnesium Level 1.8 Microbiology 10/01/19 Blood Culture - Preliminary, Resulted No growth 10/01/19 Gram Stain - Final, Resulted 10/01/19 Body Fluid Culture - Preliminary, Resulted Staphylococcus aureus 10/01/19 MRSA Screen - Final, Complete 10/01/19 Urine Culture - Final, Complete NO GROWTH 10/01/19 Gram Stain - Final, Resulted 10/01/19 Wound Culture - Preliminary, Resulted Staphylococcus aureus Assessment/Plan Assessment/Plan Assess & Plan/Chief Complaint A 38 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 continue vanco. Continue Pain and nausea meds prn. will eventually need this tunneled catheter removed as well. Clinical Quality Measures DVT/VTE Risk/Contraindication: Risk Factor Score Per Nursin RFS Level Per Nursing on Admit: 4+=Very High TANO MARQUEZ SLITTING MACHINE OPERATOR HELPER Oct 04, 2019 11:27 POS
[2019-10-04 12:00] VITALS: BP 107/71
--- NOTE | 2019-10-04 12:37 | Progress Note - Cardiology ---
Cardiology SOAP Progress Note Subjective: Feels that she is experiencing some recurrent gen swelling since has been off her home dose of Lasix Has discomfort at site of peritoneal cath as before Denies cp or palp or syncope Has gen malaise and wekness as before Objective: I&O/Vital Signs 10/04/19 10/04/19 10/04/19 10/04/19 01:00 04:45 07:00 08:00 Temp 37.0 36.4 Pulse 100 112 110 110 Resp 20 20 B/P (MAP) 120/80 (93) 101/60 (74) Pulse Ox 97 99 O2 Delivery Room Air Room Air 10/04/19 10/04/19 08:20 12:19 Pulse 90 O2 Delivery Room Air 10/04/19 00:00 Intake Total 1144 ml Output Total 900 ml Balance 244 ml Weight (Pounds): 130 Weight (Ounces): 0.0 Weight (Calculated Kilograms): 58.049697 Constitutional: AAO x 3, well-developed, well-nourished Respiratory: No accessory muscle use; other (fair to good bilateral air entry) Cardiovascular: irregularly irregular, S1 and S2, systolic murmur (2/6 JAMES at card base) Gastrointestional: No tender; soft; No guarding, No rebound; other (site of peritoneal cath in the R lateral abdomen under dressing that we did not remove) Extremities: No clubbing, No cyanosis, No significant edema Neurologic/Psychiatric: oriented x 3, other (moves all limbs equally) Skin: normal color, warm/dry; No rash on exposed areas, No ulcerations on exposed areas Results/Procedures: Labs Laboratory Tests 10/04/19 05:27: White Blood Count 13.8H, Red Blood Count 3.91L, Hemoglobin 8.2L, Hematocrit 26L, Mean Corpuscular Volume 66L, Mean Corpuscular Hemoglobin 21L, Mean Corpuscular H emoglobin Concent 32, Red Cell Distribution Width 21.7H, Platelet Count 619H, Mean Platelet Volume 9.5, Neutrophils (%) (Auto) 72, Lymphocytes (%) (Auto) 10L, Monocytes (%) (Auto) 10, Eosinophils (%) (Auto) 7, Basophils (%) (Auto) 0, Neutrophils # (Auto) 9.9H, Lymphocytes # (Auto) 1.4, Monocytes # (Auto) 1.4H, Eosinophils # (Auto) 1.0H, Basophils # (Auto) 0.1, Sodium Level 132L, Potassium Level 4.6, Chloride Level 102, Carbon Dioxide Level 21, Anion Gap 9, Blood Urea Nitrogen 6L, Creatinine 0.62, Estimat Glomerular Filtration Rate > 60, BUN/Creatinine Ratio 10, Glucose Level 120H, Calcium Level 8.1L, Phosphorus Level 3.0, Magnesium Level 1.8 Microbiology 10/01/19 Blood Culture - Preliminary, Resulted No growth 10/01/19 Gram Stain - Final, Resulted 10/01/19 Body Fluid Culture - Preliminary, Resulted Staphylococcus aureus 10/01/19 MRSA Screen - Final, Complete 10/01/19 Urine Culture - Final, Complete NO GROWTH 10/01/19 Gram Stain - Final, Resulted 10/01/19 Wound Culture - Preliminary, Resulted Staphylococcus aureus Laboratory Tests 10/03/19 04:45 10/04/19 05:27 A/P: Assessment: Cellulitis around the site of paracentesis tunnel catheter placed by Dr Rose on 09/25/19 H/o recurrent ascites and intermittent spontaneous bacterial peritonitis H/o tobacco and drug abuse that she is not will to quit Anemia, etiology undetermined, managed by the Med Svce History of Ebstein's anomaly, treated with surgery, according to the patient, but she does not recall details. States has had Tricuspid valve replaced twice, can't recall what hospital the last revision was at Last echo of 09/10/2019 (Dr Mahoney) shows normal LV function with dilated RV with severe tricuspid regurgitation and a tricuspid prosthesis Persistent atrial fibrillation Cardiac pacemaker, multiple revisions (by history), followed and managed by her customer service leader Dr Salomon in [place], [place] Plan: * Add low dose furosemide back to her regiment of spironolactone. This is her usual regimen * Anemia and cellulitis management is with the Med Svce * Monitor labs BRADLY BELL MD [facility] CCDS Oct 04, 2019 12:37 POS
--- NOTE | 2019-10-04 12:45 | Progress Note - Hospitalist ---
Subjective HPI/CC On Admission Date Seen by Provider: Oct 04, 2019 Time Seen by Provider: 12:00 Subjective/Events-last exam Patient reports abdominal pain about the same denies night sweats chills or fever. Abdominal discomfort is generalized not just around her peritoneal catheter. Focused Exam Lactate Level 10/01/19 18:45: Lactic Acid Level 2.09*H 10/01/19 20:45: Lactic Acid Level 1.25 Time of Focused Exam: 21:31 Objective Exam Vital Signs Vital Signs Date Time Temp Pulse Resp B/P (MAP) Pulse Ox O2 Delivery O2 Flow Rate FiO2 10/04/19 12: 90 10/04/19 08:20 Room Air 10/04/19 08:00 36.4 20 101/60 (74) 99 Capillary Refill : Less Than 3 Seconds General Appearance: No Apparent Distress, Chronically ill Respiratory: Chest Non Tender, Lungs Clear, Normal Breath Sounds, No Accessory Muscle Use, No Respiratory Distress Cardiovascular: Regular Rate, Rhythm Gastrointestinal: Other (Generalized abdominal discomfort. No induration noted around the peritoneal catheter bandage there is no warmth over this area noted compared to the opposite side bowel sounds are positive distention present) Results/Procedures Lab Laboratory Tests 10/04/19 05:27 Patient resulted labs reviewed. Assessment/Plan Assessment and Plan Assess & Plan/Chief Complaint (1) Severe sepsis Status: Acute Assessment & Plan: - Concerns for SBP, Lactic acid elevated on admit now resolved, patient did not get full 30 ml/kg per protocol due to heart disease and ascites, Started on Meropneum, ascitic fluid for culture and skin wound for culture. Dr Harley consulted due to recent catheter placement 10/03: Sepsis resolved, Culture with Staph, patient on Vancomycin 10/04: Sepsis secondary to spontaneous bacterial peritonitis with sepsis resolved. Staph growing from wound culture as well as peritoneal fluid which undoubtedly will be MRSA as the patient has a past history of MRSA continue vancomycin. Patient has high volume ascites so well on IV antibiotics in light of improvement and after discussion with Dr. HARLEY we will leave drain in for now but will have to be removed which means she will unfortunately have to undergo outpatient paracentesis for therapeutic reasons as needed in the future. (2) Cellulitis, abdominal wall Status: Acute (3) Microcytic anemia Status: Chronic Assessment & Plan: - Iron studies pending (4) recurrent symptomatic ascites Status: Chronic Assessment & Plan: - Dr Harley managing, Will likely need catheter removed (5) Seizure disorder Status: Acute Assessment & Plan: - Continue home keppra (6) Polysubstance abuse Status: Acute (7) Atrial fibrillation Status: Acute Assessment & Plan: - Cardiology consulted, appreciate recommendations, Patient on Xarelto Qualifiers: Qualified Codes: I48.91 - Unspecified atrial fibrillation (8) DVT prophylaxis Status: Acute Assessment & Plan: - Xarelto Clinical Quality Measures DVT/VTE Risk/Contraindication: Risk Factor Score Per Nursin RFS Level Per Nursing on Admit: 4+=Very High TRINI JONES MD Oct 04, 2019 12:44 POS
[2019-10-04] MEDS: FUROSEMIDE 20 MG (LASIX) TAB PO SCH (14:01)
[2019-10-04 16:00] VITALS: BP 114/71
[2019-10-04] MEDS: ALPRAZolam 0.25 MG (XANAX) TAB PO PRN (17:07)
[2019-10-04] MEDS: RIVAROXABAN 20 MG TABLET (XARELTO) PO SCH (17:08)
[2019-10-04 19:38] VITALS: BP 113/69
[2019-10-04] MEDS: PANTOPRAZOLE 40 MG (PROTONIX) TAB PO SCH (20:28)
[2019-10-04] MEDS: ZOLPIDEM 5 MG (AMBIEN) TAB PO SCH (20:28)
[2019-10-04] MEDS: MIRTAZAPINE 15 MG (REMERON) TAB PO SCH (20:28)
[2019-10-04] MEDS ORDERED: FUROSEMIDE 20 MG (LASIX) TAB PO SCH (21:00)
[2019-10-04 23:54] VITALS: BP 105/69
[2019-10-05] MEDS: MEROPENEM 500 MG/SWFI 10 ML IV PUSH IV SCH ×10 (00:05→23:11)
[2019-10-05] MEDS: oxyCODONE/APAP 10/325MG (PERCOCET 10) TABLET PO PRN ×5 (02:28→19:06)
[2019-10-05] MEDS: ALPRAZolam 0.25 MG (XANAX) TAB PO PRN ×3 (02:31→18:06)
[2019-10-05 04:00] VITALS: BP 114/72
[2019-10-05] MEDS: FUROSEMIDE 20 MG (LASIX) TAB PO SCH ×2 (06:31→11:45)
[2019-10-05] MEDS ORDERED: FUROSEMIDE 20 MG (LASIX) TAB PO SCH (07:00)
[2019-10-05 07:24] LABS: BASOPHILS # (AUTO) 0.1 10^3/uL (0.0-0.1); BASOPHILS % (AUTO) 1 % (0-10); EOSINOPHILS # (AUTO) 1.2 10^3/uL (0.0-0.3); EOSINOPHILS % (AUTO) 12 % (0-10); HEMATOCRIT 27 % (35-52); HEMOGLOBIN 8.5 G/DL (11.5-16.0); LYMPHOCYTES # (AUTO) 1.7 X 10^3 (1.0-4.0); LYMPHOCYTES % (AUTO) 17 % (12-44); MEAN CORPUSCULAR HEMOGLOBIN 21 PG (25-34); MEAN CORPUSCULAR HGB CONC 32 G/DL (32-36); MEAN CORPUSCULAR VOLUME 65 FL (80-99); MEAN PLATELET VOLUME 9.1 FL (7.4-10.4); MONOCYTES # (AUTO) 1.3 X 10^3 (0.0-1.0); MONOCYTES % (AUTO) 13 % (0-12); NEUTROPHILS # (AUTO) 5.7 X 10^3 (1.8-7.8); NEUTROPHILS % (AUTO) 57 % (42-75); PLATELET COUNT 637 10^3/uL (130-400); RED CELL DISTRIBUTION WIDTH 22.4 % (10.0-14.5)
[2019-10-05 07:41] LABS: ALANINE AMINOTRANSFERASE 16 U/L (0-55); ALBUMIN 2.8 GM/DL (3.2-4.5); ALKALINE PHOSPHATASE 260 U/L (40-136); BILIRUBIN,TOTAL 0.4 MG/DL (0.1-1.0); BUN/CREATININE RATIO 10; CALCIUM 7.9 MG/DL (8.5-10.1); CARBON DIOXIDE 23 MMOL/L (21-32); CHLORIDE 100 MMOL/L (98-107); CREATININE SERUM 0.67 MG/DL (0.60-1.30); GFR ESTIMATED > 60; GLUCOSE 94 MG/DL (70-105); MAGNESIUM 1.8 MG/DL (1.6-2.4); PHOSPHORUS 3.6 MG/DL (2.3-4.7); POTASSIUM 4.6 MMOL/L (3.6-5.0); SODIUM 133 MMOL/L (135-145); TOTAL PROTEIN 6.6 GM/DL (6.4-8.2)
[2019-10-05 08:00] VITALS: BP 111/70
--- NOTE | 2019-10-05 08:08 | Diagnostic Imaging Report ---
INDICATION: Sepsis. Comparison made with prior examination 10/04/2019. FINDINGS: There is cardiomegaly. There has been previous median sternotomy. Pacemaker overlies left hemithorax. There is a small left pleural effusion. There is no pneumothorax. Mediastinum is unremarkable. IMPRESSION: Cardiomegaly and a small left pleural effusion. Dictated by: Dictated on workstation # [id number]
[2019-10-05] MEDS: DILTIAZEM 180 MG (CARDIZEM CD) CAP PO SCH (09:09)
[2019-10-05] MEDS: SPIRONOLACTONE 25 MG (ALDACTONE) TAB PO SCH ×2 (09:09→20:36)
[2019-10-05] MEDS: risperiDONE 1 MG (RisperDAL) TAB PO SCH ×2 (09:09→20:36)
[2019-10-05] MEDS: MUPIROCIN 2% OINT 22 GM (BACTROBAN) TUBE NSEACH SCH ×2 (09:09→20:38)
[2019-10-05] MEDS: meTOprolol TARTRATE 25 MG (LOPRESSOR) TABLET PO SCH ×2 (09:09→20:36)
[2019-10-05] MEDS: LEVETIRACETAM 1,000 MG (KEPPRA) TABLET PO SCH ×2 (09:09→20:36)
[2019-10-05] MEDS: SUCRALFATE 1 GM (CARAFATE) TAB PO SCH ×4 (09:09→20:36)
[2019-10-05] MEDS: NICOTINE 21 MG (NICODERM) PATCH TD SCH (09:09)
[2019-10-05] MEDS: DIGOXIN 0.125 MG (LANOXIN) TAB PO SCH (09:09)
--- NOTE | 2019-10-05 10:02 | Progress Note ---
Subjective Date Seen by a Provider: Oct 05, 2019 Time Seen by a Provider: 09:30 Subjective/Events-last exam doing ok. no new complaints. WBC normal. positive staph peritoneal fluid. continues to have continuous copious recurrent ascites secondary to uncorrected julio césar anamoly. Focused Exam Time of Focused Exam: 21:31 Objective Exam Vital Signs Date Time Temp Pulse Resp B/P (MAP) Pulse Ox O2 Delivery O2 Flow Rate FiO2 10/05/19 07:00 95 10/05/19 04:00 36.0 82 21 114/72 (86) 98 Room Air 10/05/19 01:00 70 10/04/19 23:54 36.8 79 20 105/69 (81) 98 Room Air 10/04/19 21:00 Room Air 10/04/19 19:38 36.8 91 20 113/69 (84) 99 Room Air 10/04/19 19:00 90 10/04/19 19:00 86 10/04/19 16:00 36.4 78 20 114/71 (85) 99 Room Air 10/04/19 12:19 90 10/04/19 12:00 35.8 106 20 107/71 (83) 93 Room Air I & O 10/05/19 07:00 Intake Total 2920 ml Output Total 5500 ml Balance -2580 ml Capillary Refill : Less Than 3 Seconds General Appearance: No Apparent Distress HEENT: PERRL/EOMI Neck: Full Range of Motion Respiratory: Decreased Breath Sounds Cardiovascular: Regular Rate, Rhythm Gastrointestinal: normal bowel sounds, soft, distended Extremity: Normal Capillary Refill Neurologic/Psychiatric: Alert, Oriented x3 Skin: Normal Color Lymphatic: No Adenopathy Results Lab Laboratory Tests 10/05/19 06:45: White Blood Count 10.0, Red Blood Count 4.08L, Hemoglobin 8.5L, Hematocrit 27L, Mean Corpuscular Volume 65L, Mean Corpuscular Hemoglobin 21L, Mean Corpuscular Hemoglobin Concent 32, Red Cell Distribution Width 22.4H, Platelet Count 637H, Mean Platelet Volume 9.1, Neutrophils (%) (Auto) 57, Lymphocytes (%) (Auto) 17, Monocytes (%) (Auto) 13H, Eosinophils (%) (Auto) 12H, Basophils (%) (Auto) 1, Neutrophils # (Auto) 5.7, Lymphocytes # (Auto) 1.7, Monocytes # (Auto) 1.3H, Eosinophils # (Auto) 1.2H, Basophils # (Auto) 0.1, Sodium Level 133L, Potassium Level 4.6, Chloride Level 100, Carbon Dioxide Level 23, Anion Gap 10, Blood Urea Nitrogen 7, Creatinine 0.67, Estimat Glomerular Filtration Rate > 60, BUN/Creatinine Ratio 10, Glucose Level 94, Calcium Level 7.9L, Corrected Calcium 8.9, Phosphorus Level 3.6, Magnesium Level 1.8, Total Bilirubin 0.4, Aspartate Amino Transf (AST/SGOT) 20, Alanine Aminotransferase (ALT/SGPT) 16, Alkaline Phosphatase 260H, Total Protein 6.6, Albumin 2.8L Microbiology 10/01/19 Blood Culture - Preliminary, Resulted No growth 10/01/19 Gram Stain - Final, Complete 10/01/19 Body Fluid Culture - Final, Complete Staphylococcus aureus See Comments 10/01/19 MRSA Screen - Final, Complete 10/01/19 Urine Culture - Final, Complete Gardnerella vaginalis 10/01/19 Gram Stain - Final, Complete 10/01/19 Wound Culture - Final, Complete Staphylococcus aureus Assessment/Plan Assessment/Plan Assess & Plan/Chief Complaint julio 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 continue vanco and drainage WBC normal. unsure of director long term care plans however may need PICC and continued IV vanco as well as peritoneal fluid removal. will also need eventual removal of cath. Clinical Quality Measures DVT/VTE Risk/Contraindication: Risk Factor Score Per Nursin RFS Level Per Nursing on Admit: 4+=Very High TARAH HARLEY MD Oct 05, 2019 10:02 POS
[2019-10-05 12:00] VITALS: BP 113/65
[2019-10-05] MEDS ORDERED: VANCOMYCIN INJECTION 0.1 MG in NS (IVPB) 250 ML IV SCH (12:15)
--- NOTE | 2019-10-05 13:11 | Progress Note - Cardiology ---
Cardiology SOAP Progress Note Subjective: Gen malaise and weakness and discomfort at site or peritoneal cath Swelling better No cp or palp or syncope Chronic exertional shortness of breath Request regular diet Objective: I&O/Vital Signs 10/05/19 10/05/19 10/05/19 10/05/19 04:00 07:00 08:00 08:00 Temp 36.0 37.1 Pulse 82 95 109 Resp 21 18 B/P (MAP) 114/72 (86) 111/70 (84) Pulse Ox 98 98 O2 Delivery Room Air Room Air Room Air 10/05/19 12:15 Pulse 101 10/05/19 00:00 Intake Total 2420 ml Output Total 3550 ml Balance -1130 ml Weight (Pounds): 130 Weight (Ounces): 0.0 Weight (Calculated Kilograms): 58.694016 Constitutional: AAO x 3, well-developed, well-nourished Respiratory: No accessory muscle use; other (fair to good bilateral air entry) Cardiovascular: irregularly irregular, S1 and S2, systolic murmur (2/6 JAMES at card base) Gastrointestional: No tender; soft; No guarding, No rebound; other (site of peritoneal cath in the R lateral abdomen under dressing that we did not remove) Extremities: No clubbing, No cyanosis, No significant edema Neurologic/Psychiatric: oriented x 3, other (moves all limbs equally) Skin: normal color, warm/dry; No rash on exposed areas, No ulcerations on exposed areas Results/Procedures: Labs Laboratory Tests 10/05/19 06:45: White Blood Count 10.0, Red Blood Count 4.08L, Hemoglobin 8.5L, Hematocrit 27L, Mean Corpuscular Volume 65L, Mean Corpuscular Hemoglobin 21L, Mean Corpuscular Hemoglobin Concent 32, Red Cell Distribution Width 22.4H, Platelet Count 637H, Mean Platelet Volume 9.1, Neutrophils (%) (Auto) 57, Lymphocytes (%) (Auto) 17, Monocytes (%) (Auto) 13H, Eosinophils (%) (Auto) 12H, Basophils (%) (Auto) 1, Neutrophils # (Auto) 5.7, Lymphocytes # (Auto) 1.7, Monocytes # (Auto) 1.3H, Eosinophils # (Auto) 1.2H, Basophils # (Auto) 0.1, Sodium Level 133L, Potassium Level 4.6, Chloride Level 100, Carbon Dioxide Level 23, Anion Gap 10, Blood Urea Nitrogen 7, Creatinine 0.67, Estimat Glomerular Filtration Rate > 60, BUN/Creatinine Ratio 10, Glucose Level 94, Calcium Level 7.9L, Corrected Calcium 8.9, Phosphorus Level 3.6, Magnesium Level 1.8, Total Bilirubin 0.4, Aspartate Amino Transf (AST/SGOT) 20, Alanine Aminotransferase (ALT/SGPT) 16, Alkaline Phosphatase 260H, Total Protein 6.6, Albumin 2.8L Microbiology 10/01/19 Blood Culture - Preliminary, Resulted No growth 10/01/19 Gram Stain - Final, Complete 10/01/19 Body Fluid Culture - Final, Complete Staphylococcus aureus See Comments 10/01/19 MRSA Screen - Final, Complete 10/01/19 Urine Culture - Final, Complete Gardnerella vaginalis 10/01/19 Gram Stain - Final, Complete 10/01/19 Wound Culture - Final, Complete Staphylococcus aureus Laboratory Tests 10/04/19 05:27 10/05/19 06:45 A/P: Assessment: Cellulitis around the site of paracentesis tunnel catheter placed by Dr Rose on 09/25/19 H/o recurrent ascites and intermittent spontaneous bacterial peritonitis H/o tobacco and drug abuse that she is not will to quit Anemia, etiology undetermined, managed by the Med Svce History of Ebstein's anomaly, treated with surgery, according to the patient, but she does not recall details. States has had Tricuspid valve replaced twice, can't recall what hospital the last revision was at Last echo of 09/10/2019 (Dr Mahoney) shows normal LV function with dilated RV with severe tricuspid regurgitation and a tricuspid prosthesis Persistent atrial fibrillation Cardiac pacemaker, multiple revisions (by history), followed and managed by her corporate associate Dr Salomon in [place], [place] Plan: * Continue current cardiac regimen * Ok for regular diet from cardiac standpoint * Anemia and cellulitis management is with the Med Svce * Monitor labs BRADLY BELL MD [facility] Oct 05, 2019 13:11 POS
--- NOTE | 2019-10-05 13:41 | Progress Note - Hospitalist ---
Subjective HPI/CC On Admission Date Seen by Provider: Oct 05, 2019 Time Seen by Provider: 13:00 Subjective/Events-last exam Patient up walking around the room reports she still having abdominal pain but denies chills fevers Reiger's diarrhea with good by mouth intake. She's also had no chest pain or shortness of breath. Focused Exam Time of Focused Exam: 21:31 Objective Exam Vital Signs Vital Signs Date Time Temp Pulse Resp B/P (MAP) Pulse Ox O2 Delivery O2 Flow Rate FiO2 10/05/19 12:15 101 10/05/19 08:00 37.1 18 111/70 (84) 98 Room Air Capillary Refill : Less Than 3 Seconds General Appearance: No Apparent Distress, Chronically ill Cardiovascular: Regular Rate, Rhythm, Gallop/S4 Gastrointestinal: Tenderness (Diffuse tenderness unchanged no evidence for erythema or increased warmth with stable distention bowel sounds positive) Results/Procedures Lab Laboratory Tests 10/05/19 06:45 Patient resulted labs reviewed. Assessment/Plan Assessment and Plan Assess & Plan/Chief Complaint (1) Severe sepsis Status: Acute Assessment & Plan: - Concerns for SBP, Lactic acid elevated on admit now resolved, patient did not get full 30 ml/kg per protocol due to heart disease and ascites, Started on Meropneum, ascitic fluid for culture and skin wound for culture. Dr Harley consulted due to recent catheter placement 10/03: Sepsis resolved, Culture with Staph, patient on Vancomycin 10/04: Sepsis secondary to spontaneous bacterial peritonitis with sepsis resolved. Staph growing from wound culture as well as peritoneal fluid which undoubtedly will be MRSA as the patient has a past history of MRSA continue vancomycin. Patient has high volume ascites so well on IV antibiotics in light of improvement and after discussion with Dr. HARLEY we will leave drain in for now but will have to be removed which means she will unfortunately have to undergo outpatient paracentesis for therapeutic reasons as needed in the future. Can down to 10,000 no evidence for sepsis with good by mouth intake. PICC line tent atively scheduled for tomorrow. (2) Cellulitis, abdominal wall Status: Acute (3) Microcytic anemia Status: Chronic Assessment & Plan: - Iron studies pending (4) recurrent symptomatic ascites Status: Chronic Assessment & Plan: - Dr Harley managing, Will likely need catheter removed (5) Seizure disorder Status: Acute Assessment & Plan: - Continue home keppra (6) Polysubstance abuse Status: Acute (7) Atrial fibrillation Status: Acute Assessment & Plan: - Cardiology consulted, appreciate recommendations, Patient on Xarelto Qualifiers: Qualified Codes: I48.91 - Unspecified atrial fibrillation (8) DVT prophylaxis Status: Acute Assessment & Plan: - Xarelto Clinical Quality Measures DVT/VTE Risk/Contraindication: Risk Factor Score Per Nursin RFS Level Per Nursing on Admit: 4+=Very High TRINI JONES MD Oct 05, 2019 13:41 POS
[2019-10-05] MEDS: VANCOMYCIN 1 GM/NS 250 ML IVPB IV SCH ×4 (13:54→23:11)
[2019-10-05] MEDS ORDERED: PREPARATION H OINTMENT 57 GR TUBE PR PRN (15:00)
[2019-10-05 16:00] VITALS: BP 109/72
[2019-10-05] MEDS: RIVAROXABAN 20 MG TABLET (XARELTO) PO SCH (18:02)
[2019-10-05] MEDS: ONDANSETRON 4 MG/2 ML (SDV) Z0FRAN IV PRN (18:08)
[2019-10-05 20:00] VITALS: BP 106/56
[2019-10-05] MEDS: MIRTAZAPINE 15 MG (REMERON) TAB PO SCH (20:36)
[2019-10-05] MEDS: PANTOPRAZOLE 40 MG (PROTONIX) TAB PO SCH (20:36)
[2019-10-05] MEDS: ZOLPIDEM 5 MG (AMBIEN) TAB PO SCH (20:36)
[2019-10-06] VITALS: BP 104/56
[2019-10-06] MEDS: oxyCODONE/APAP 10/325MG (PERCOCET 10) TABLET PO PRN ×4 (01:17→15:22)
[2019-10-06] MEDS: ALPRAZolam 0.25 MG (XANAX) TAB PO PRN ×2 (01:17→09:49)
[2019-10-06 04:00] VITALS: BP 104/72
[2019-10-06 06:12] LABS: BASOPHILS # (AUTO) 0.1 10^3/uL (0.0-0.1); BASOPHILS % (AUTO) 1 % (0-10); EOSINOPHILS # (AUTO) 1.5 10^3/uL (0.0-0.3); EOSINOPHILS % (AUTO) 14 % (0-10); HEMATOCRIT 25 % (35-52); HEMOGLOBIN 7.9 G/DL (11.5-16.0); LYMPHOCYTES # (AUTO) 1.7 X 10^3 (1.0-4.0); LYMPHOCYTES % (AUTO) 17 % (12-44); MEAN CORPUSCULAR HEMOGLOBIN 21 PG (25-34); MEAN CORPUSCULAR HGB CONC 31 G/DL (32-36); MEAN CORPUSCULAR VOLUME 67 FL (80-99); MONOCYTES # (AUTO) 1.3 X 10^3 (0.0-1.0); MONOCYTES % (AUTO) 13 % (0-12); NEUTROPHILS # (AUTO) 5.9 X 10^3 (1.8-7.8); NEUTROPHILS % (AUTO) 56 % (42-75); PLATELET COUNT 592 10^3/uL (130-400); RED CELL DISTRIBUTION WIDTH 21.6 % (10.0-14.5); WHITE BLOOD COUNT 10.4 10^3/uL (4.3-11.0)
[2019-10-06] MEDS: MEROPENEM 500 MG/SWFI 10 ML IV PUSH IV SCH ×2 (06:12)
[2019-10-06] MEDS: FUROSEMIDE 20 MG (LASIX) TAB PO SCH ×2 (06:12→13:37)
[2019-10-06 06:20] LABS: BUN/CREATININE RATIO 10; CARBON DIOXIDE 26 MMOL/L (21-32); CHLORIDE 99 MMOL/L (98-107); CREATININE SERUM 0.67 MG/DL (0.60-1.30); GFR ESTIMATED > 60; GLUCOSE 102 MG/DL (70-105); MAGNESIUM 1.8 MG/DL (1.6-2.4); PHOSPHORUS 3.6 MG/DL (2.3-4.7); POTASSIUM 4.1 MMOL/L (3.6-5.0); SODIUM 133 MMOL/L (135-145)
--- NOTE | 2019-10-06 06:35 | Progress Note - Hospitalist ---
Subjective HPI/CC On Admission Date Seen by Provider: Oct 06, 2019 Time Seen by Provider: 08:30 Subjective/Events-last exam Patient states that she is feeling better. Breathing is better, pain is tolerable, Sleeping and eating better. UA showed Gardnerella Patient will have a PICC line placed Review of Systems General: No Chills, No Other (fevers) Pulmonary: No Dyspnea, No Cough Cardiovascular: No: Chest Pain, Edema Gastrointestinal: Nausea; No: Vomiting, Diarrhea, Constipation Musculoskeletal: other (Chronic MSK pain) Focused Exam Time of Focused Exam: 21:31 Objective Exam Vital Signs Vital Signs Date Time Temp Pulse Resp B/P (MAP) Pulse Ox O2 Delivery O2 Flow Rate FiO2 10/06/19 13:00 94 10/06/19 09:00 99 Room Air 10/06/19 08:00 36.5 18 112/71 (85) Capillary Refill : Less Than 3 Seconds General Appearance: No Apparent Distress, WD/WN Neck: Normal Inspection, Supple Respiratory: Chest Non Tender, Lungs Clear, Normal Breath Sounds, No Accessory Muscle Use, No Respiratory Distress Cardiovascular: Regular Rate, Rhythm, No Edema, Normal Peripheral Pulses (2/4 radial pulse bilaterally) Neurologic/Psychiatric: Alert, Oriented x3 Skin: Normal Color, Warm/Dry Results/Procedures Lab Laboratory Tests 10/06/19 05:00 Patient resulted labs reviewed. Assessment/Plan Assessment and Plan Assess & Plan/Chief Complaint PICC Line placement MRSA SBP Gardnerella infection Cellulitis Port Placement Vancomycin for MRSA Metronidazole for Gardnerella Continue paracentesis Clinical Quality Measures DVT/VTE Risk/Contraindication: Risk Factor Score Per Nursin RFS Level Per Nursing on Admit: 4+=Very High YAHIR SANTAMARIA MED STUDEN Oct 06, 2019 06:35 POS
--- NOTE | 2019-10-06 07:42 | Diagnostic Imaging Report ---
EXAMINATION: Chest 1 view HISTORY: Severe sepsis. COMPARISON: 10/05/2019 FINDINGS: Stable cardiomegaly with stable configuration of the left pectoral pacemaker. The lungs are well aerated. No large pleural effusion or pneumothorax. Fusion changes are again noted throughout the thoracic spine. IMPRESSION: 1. No focal consolidation or pulmonary mass. 2. Stable cardiomegaly. Dictated by: Dictated on workstation # [id number]
[2019-10-06 08:00] VITALS: BP 112/71
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
--- NOTE | 2019-10-06 09:34 | Progress Note - Cardiology ---
Cardiology SOAP Progress Note Objective: I&O/Vital Signs 10/06/19 23:59 Intake Total 1835 ml Output Total 950 ml Balance 885 ml Weight (Pounds): 130 Weight (Ounces): 0.0 Weight (Calculated Kilograms): 58.829363 Constitutional: AAO x 3, well-developed, well-nourished Respiratory: No accessory muscle use; other (fair to good bilateral air entry) Cardiovascular: irregularly irregular, S1 and S2, systolic murmur (2/6 JAMES at card base) Gastrointestional: No tender; soft; No guarding, No rebound; other (site of peritoneal cath in the R lateral abdomen under dressing that we did not remove) Extremities: No clubbing, No cyanosis, No significant edema Neurologic/Psychiatric: oriented x 3, other (moves all limbs equally) Skin: normal color, warm/dry; No rash on exposed areas, No ulcerations on exposed areas Results/Procedures: Labs Microbiology 10/01/19 Blood Culture - Preliminary, Resulted No growth 10/01/19 Gram Stain - Final, Complete 10/01/19 Body Fluid Culture - Final, Complete Staphylococcus aureus See Comments 10/01/19 MRSA Screen - Final, Complete 10/01/19 Urine Culture - Final, Complete Gardnerella vaginalis 10/01/19 Gram Stain - Final, Complete 10/01/19 Wound Culture - Final, Complete Staphylococcus aureus Procedures NAME: [facility] REC#: [id number] PT STATUS: ADM IN : 1980 PHYSICIAN: WILL ORTIZ MD ADMIT DATE: 10/01/19 Signed Date of Exam:10/06/19 CHEST 1 VIEW, AP/PA ONLY EXAMINATION: Chest 1 view HISTORY: Severe sepsis. COMPARISON: 10/05/2019 FINDINGS: Stable cardiomegaly with stable configuration of the left pectoral pacemaker. The lungs are well aerated. No large pleural effusion or pneumothorax. Fusion changes are again noted throughout the thoracic spine. IMPRESSION: 1. No focal consolidation or pulmonary mass. 2. Stable cardiomegaly. Dictated by: Dictated on workstation # [id number] Dict: 10/06/19 0733 Trans: 10/06/19 0803 [facility] [id number] Interpreted by: TANGELA GOEL DO Electronically signed by: TANGELA GOEL DO 10/06/19 0803 A/P: Assessment: Cellulitis around the site of paracentesis tunnel catheter placed by Dr Rose on 09/25/19 H/o recurrent ascites and intermittent spontaneous bacterial peritonitis H/o tobacco and drug abuse that she is not will to quit Anemia, etiology undetermined, managed by the Med Svce History of Ebstein's anomaly, treated with surgery, according to the patient, but she does not recall details. States has had Tricuspid valve replaced twice, can't recall what hospital the last revision was at Last echo of 09/10/2019 (Dr Mahoney) shows normal LV function with dilated RV with severe tricuspid regurgitation and a tricuspid prosthesis Persistent atrial fibrillation Cardiac pacemaker, multiple revisions (by history), followed and managed by her clean out driller helper Dr Salomon in [place], [place] Plan: * Continue current cardiac regimen * Ok for regular diet from cardiac standpoint * Anemia and cellulitis management is with the Med Svce * Monitor labs DONNA ATKINS Oct 06, 2019 09:34 POS
[2019-10-06] MEDS: SUCRALFATE 1 GM (CARAFATE) TAB PO SCH ×2 (09:45→13:37)
[2019-10-06] MEDS: DIGOXIN 0.125 MG (LANOXIN) TAB PO SCH (09:45)
[2019-10-06] MEDS: risperiDONE 1 MG (RisperDAL) TAB PO SCH (09:45)
[2019-10-06] MEDS: MUPIROCIN 2% OINT 22 GM (BACTROBAN) TUBE NSEACH SCH (09:45)
[2019-10-06] MEDS: SPIRONOLACTONE 25 MG (ALDACTONE) TAB PO SCH (09:45)
[2019-10-06] MEDS: meTOprolol TARTRATE 25 MG (LOPRESSOR) TABLET PO SCH (09:45)
[2019-10-06] MEDS: DILTIAZEM 180 MG (CARDIZEM CD) CAP PO SCH (09:45)
[2019-10-06] MEDS: LEVETIRACETAM 1,000 MG (KEPPRA) TABLET PO SCH (09:45)
[2019-10-06] MEDS: NICOTINE 21 MG (NICODERM) PATCH TD SCH (09:46)
[2019-10-06] MEDS: VANCOMYCIN 1 GM/NS 250 ML IVPB IV SCH ×2 (10:50)
--- NOTE | 2019-10-06 11:23 | NUR ---
RECEIVED REQUEST FOR VANCOMYCIN DOSING FOR OUTPATIENT INFUSION (PREFERABLY ONCE DAILY). Vancomycin level checked this am (6hour level) was 22.5, will change vancomycin to 1,500mg IV daily and check a repeat trough level on 10/08 and adjust if needed. scr 0.67
[2019-10-06] MEDS ORDERED: VANCOMYCIN 500 MG/NS 100 ML IV NR ×2 (11:45)
[2019-10-06 12:00] VITALS: BP 99/55
[2019-10-06] MEDS ORDERED: VANC1.5P12 IV (12:04)
--- NOTE | 2019-10-06 12:53 | Progress Note - Cardiology ---
Cardiology SOAP Progress Note Subjective: No cp or palp or syncope or shortness of breath at rest Gen malaise and discomfort at site of peritoneal cath placement, somewhat improved, but not resolved Objective: I&O/Vital Signs 10/06/19 10/06/19 10/06/19 10/06/19 01:00 04:00 08:00 08:34 Temp 36.2 36.5 Pulse 80 84 109 109 Resp 16 18 B/P (MAP) 104/72 (83) 112/71 (85) Pulse Ox 95 99 O2 Delivery Room Air Room Air 10/06/19 09:00 Pulse Ox 99 O2 Delivery Room Air 10/06/19 00:00 Intake Total 2500 ml Output Total 1700 ml Balance 800 ml Weight (Pounds): 130 Weight (Ounces): 0.0 Weight (Calculated Kilograms): 58.216490 Constitutional: AAO x 3, well-developed, well-nourished Respiratory: No accessory muscle use; other (fair to good bilateral air entry) Cardiovascular: irregularly irregular, S1 and S2, systolic murmur (2/6 JAMES at card base) Gastrointestional: No tender; soft; No guarding, No rebound; other (site of peritoneal cath in the R lateral abdomen under dressing that we did not remove) Extremities: No clubbing, No cyanosis, No significant edema Neurologic/Psychiatric: oriented x 3, other (moves all limbs equally) Skin: normal color, warm/dry; No rash on exposed areas, No ulcerations on exposed areas Results/Procedures: Labs Laboratory Tests 10/06/19 05:00: White Blood Count 10.4, Red Blood Count 3.79L, Hemoglobin 7.9L, Hematocrit 25L, Mean Corpuscular Volume 67L, Mean Corpuscular Hemoglobin 21L, Mean Corpuscular Hemoglobin Concent 31L, Red Cell Distribution Width 21.6H, Platelet Count 592H, Mean Platelet Volume 10.0, Neutrophils (%) (Auto) 56, Lymphocytes (%) (Auto) 17, Monocytes (%) (Auto) 13H, Eosinophils (%) (Auto) 14H, Basophils (%) (Auto) 1, Neutrophils # (Auto) 5.9, Lymphocytes # (Auto) 1.7, Monocytes # (Auto) 1.3H, Eosinophils # (Auto) 1.5H, Basophils # (Auto) 0.1, Sodium Level 133L, Potassium Level 4.1, Chloride Level 99, Carbon Dioxide Level 26, Anion Gap 8, Blood Urea Nitrogen 7, Creatinine 0.67, Estimat Glomerular Filtration Rate > 60, BUN/Creatinine Ratio 10, Glucose Level 102, Calcium Level 8.0L, Phosphorus Level 3.6, Magnesium Level 1.8, Vancomycin Level Trough 22.5H Microbiology 10/01/19 Blood Culture - Preliminary, Resulted No growth 10/01/19 Gram Stain - Final, Complete 10/01/19 Body Fluid Culture - Final, Complete Staphylococcus aureus See Comments 10/01/19 MRSA Screen - Final, Complete 10/01/19 Urine Culture - Final, Complete Gardnerella vaginalis 10/01/19 Gram Stain - Final, Complete 10/01/19 Wound Culture - Final, Complete Staphylococcus aureus Laboratory Tests 10/05/19 06:45 10/06/19 05:00 A/P: Assessment: Sepsis and spontaneous bacterial peritonitis, managed by the Med and Surg Services Cellulitis around the site of paracentesis tunnel catheter placed by Dr Rose on 09/25/19 H/o tobacco and drug abuse. We have advised her to quit Anemia, etiology undetermined, managed by the Med Svce History of Ebstein's anomaly, treated with surgery, according to the patient, but she does not recall details. States has had tricuspid valve surgery twice, she says, but can't recall what hospital the last revision was at Last echo of 09/10/2019 (Dr Mahoney) shows normal LV function with dilated RV with severe tricuspid regurgitation and a tricuspid prosthesis Persistent atrial fibrillation Cardiac pacemaker, multiple revisions (by history), followed and managed by her mandolin repairer Dr Salomon in [place], [place] Plan: * Continue current cardiac regimen * Ok for regular diet from cardiac standpoint * She has regular cardiac f/u with her cobol developer in [place]. We have advised her to f/u with her cobol developer KENZIE after d/c. She states she will comply [facility]AD[facility] BELL [facility] Oct 06, 2019 12:53 POS
--- NOTE | 2019-10-06 13:08 | Discharge Summary ---
[facility]ANTAMAR[facility] 10/06/19 1308: Diagnosis/Chief Complaint Date of Admission Oct 01, 2019 at 21:35 Date of Discharge 10/06/19 Discharge Date: Oct 06, 2019 Discharge Time: 13:03 Admission Diagnosis SBP, Cellulitis Abdominal wall abscess Primary Care Cristopher Scott Discharge Diagnosis MRSA SBP Discharge Summary Procedures/Consulations Cardiology - Dr. White General Surgery - Dr. Rose Discharge Physical Exam Allergies: Coded Allergies: asenapine (Unverified Allergy, Severe, TOUNGE SWELLING, 03/31/19) Penicillins (Unverified Allergy, Unknown, 03/31/19) Sulfa (Sulfonamide Antibiotics) (Unverified Allergy, Unknown, 03/31/19) erythromycin base (Verified Allergy, Unknown, 03/31/19) peas (Verified Allergy, Unknown, 03/31/19) prochlorperazine (Verified Allergy, Unknown, 03/31/19) promethazine (Verified Allergy, Unknown, 01/31/06) promethazine HCl (Unverified Allergy, Unknown, 06/07/14) propoxyphene (Verified Allergy, Unknown, 11/26/05) Vitals & I&Os Vital Signs Date Time Temp Pulse Resp B/P (MAP) Pulse Ox O2 Delivery O2 Flow Rate FiO2 10/06/19 09:00 99 Room Air 10/06/19 08:34 109 10/06/19 08:00 36.5 18 112/71 (85) General Appearance: No Apparent Distress, WD/WN Respiratory: Chest Non Tender, Lungs Clear, Normal Breath Sounds, No Accessory Muscle Use, No Respiratory Distress Cardiovascular: Regular Rate, Rhythm, Normal Peripheral Pulses (2/4 radial pulse bilaterally) Neurologic/Psychiatric: Alert, Oriented x3 Hospital Course Was the Problem List Reviewed?: Yes Patient was admitted 10/01/19 and discharged 10/06/19 and was admitted for severe sepsis. Dr. White (Software Deployment Engineer),Dr. Rose (General Surgeon), Dr. Scruggs (Hospitalist) provided care for patient. Patient received chest x-rays, CBC, CMP, UA, and Vancomycin Trough. Final Chest X-Ray showed No focal consolidation or pulmonary mass, Stable cardiomegaly. WBC decreased to 10.4. UA was positive for Gardnerella. Vanco trough was at 22.5. Patient was placed on Vancomycin and Cefepime. Patient will follow-up outpatient and PICC Line was placed to receive Vancomycin injections. Patient will also follow-up outpatient for paracentesis drain replacement. Other medications and follow-up instructions are outline in discharge information. The following information is only a summary of the patient admission while at [facility] and is not all inclusive. Please review entire chart for more information. Labs (last 24 hrs) Laboratory Tests 10/06/19 05:00: White Blood Count 10.4, Red Blood Count 3.79L, Hemoglobin 7.9L, Hematocrit 25L, Mean Corpuscular Volume 67L, Mean Corpuscular Hemoglobin 21L, Mean Corpuscular Hemoglobin Concent 31L, Red Cell Distribution Width 21.6H, Platelet Count 592H, Mean Platelet Volume 10.0, Neutrophils (%) (Auto) 56, Lymphocytes (%) (Auto) 17, Monocytes (%) (Auto) 13H, Eosinophils (%) (Auto) 14H, Basophils (%) (Auto) 1, Neutrophils # (Auto) 5.9, Lymphocytes # (Auto) 1.7, Monocytes # (Auto) 1.3H, Eosinophils # (Auto) 1.5H, Basophils # (Auto) 0.1, Sodium Level 133L, Potassium Level 4.1, Chloride Level 99, Carbon Dioxide Level 26, Anion Gap 8, Blood Urea Nitrogen 7, Creatinine 0.67, Estimat Glomerular Filtration Rate > 60, BUN/Creatinine Ratio 10, Glucose Level 102, Calcium Level 8.0L, Phosphorus Level 3.6, Magnesium Level 1.8, Vancomycin Level Trough 22.5H Microbiology 10/01/19 Blood Culture - Preliminary, Resulted No growth 10/01/19 Gram Stain - Final, Complete 10/01/19 Body Fluid Culture - Final, Complete Staphylococcus aureus See Comments 10/01/19 MRSA Screen - Final, Complete 10/01/19 Urine Culture - Final, Complete Gardnerella vaginalis 10/01/19 Gram Stain - Final, Complete 10/01/19 Wound Culture - Final, Complete Staphylococcus aureus Patient resulted labs reviewed. Discussion & Recommendations Discharge Planning: <30 minutes discharge planning Discharge Home Medications: Active Scripts Active Vancomycin 1.5 Gram/250 ml-D5w (Vancomycin HCl/D5w) 1.5 Gm/250 Ml Plast..bag 1.5 Gm IV DAILY Reported Tylenol Extra Strength (Acetaminophen) 500 Mg Tablet 1,000 Mg PO Q4H PRN Tums (Calcium Carbonate) 300 Mg Tab.chew 300 Mg PO QID PRN Hydrocodone-Acetamin 5-325 mg (Hydrocodone/Acetaminophen) 1 Each Tablet 1-2 Tab PO Q4-6HR PRN Sucralfate 1 Gm Tablet 1 Gm PO QID Ketorolac Tromethamine 10 Mg Tablet 10 Mg PO Q6H PRN Spironolactone 25 Mg Tablet 25 Mg PO BID Cartia Xt (Diltiazem HCl) 180 Mg Cap.er.24h 180 Mg PO DAILY Mirtazapine 15 Mg Tablet 15 Mg PO HS Potassium Chloride 20 Meq Tablet.er 20 Meq PO 1100 LAST FILLED #30 07-28-19 Proventil Hfa (Albuterol Sulfate) 6.7 Gm Hfa.aer.ad 2 Puff INH Q4H PRN Levetiracetam 1,000 Mg Tablet 1,000 Mg PO BID LAST FILLED #60 08-11-19 Buspirone HCl 10 Mg Tablet 10 Mg PO BID Escitalopram Oxalate 20 Mg Tablet 20 Mg PO DAILY LAST FILLED #30 07-28-19 Furosemide 20 Mg Tablet 20 Mg PO 1100,1600 LAST FILLED #60 08-11-19 Hydroxyzine Pamoate 25 Mg Capsule 25 Mg PO BID Miralax (Polyethylene Glycol 3350) 17 Gm Powd.pack 17 Gm PO BID PRN Risperidone 1 Mg Tablet 1 Mg PO BID LAST FILLED #60 08-11-19 Omeprazole 40 Mg Capsule.dr 40 Mg PO HS LAST FILLED 06-12-19 #30 Cyclobenzaprine HCl 10 Mg Tablet 10 Mg PO BID LAST FILLED #60 08-11-19 Xarelto Tablet (Rivaroxaban) 20 Mg Tablet 20 Mg PO DAILY LAST FILLED #30 08-11-19 Metoprolol Tartrate 25 Mg Tablet 25 Mg PO BID Digoxin 125 Mcg Tablet 125 Mcg PO DAILY Instructions to patient/family Please see electronic discharge instructions given to patient. Clinical Quality Measures DVT/VTE Risk/Contraindication: Risk Factor Score Per Nursin RFS Level Per Nursing on Admit: 4+=Very High CINDY SCRUGGS DO 10/07/19 0555: Diagnosis/Chief Complaint Discharge Diagnosis (1) Cellulitis, abdominal wall Status: Acute (2) recurrent symptomatic ascites Status: Chronic (3) Polysubstance abuse Status: Acute Discharge Summary Discharge Physical Exam Allergies: Coded Allergies: asenapine (Unverified Allergy, Severe, TOUNGE SWELLING, 03/31/19) Penicillins (Unverified Allergy, Unknown, 03/31/19) Sulfa (Sulfonamide Antibiotics) (Unverified Allergy, Unknown, 03/31/19) erythromycin base (Verified Allergy, Unknown, 03/31/19) peas (Verified Allergy, Unknown, 03/31/19) prochlorperazine (Verified Allergy, Unknown, 03/31/19) promethazine (Verified Allergy, Unknown, 01/31/06) promethazine HCl (Unverified Allergy, Unknown, 06/07/14) propoxyphene (Verified Allergy, Unknown, 11/26/05) General Appearance: No Apparent Distress, WD/WN, Chronically ill Cardiovascular: Regular Rate, Rhythm Gastrointestinal: Other (ascites noted) Neurologic/Psychiatric: Alert, Oriented x3, No Motor/Sensory Deficits, Normal Mood/Affect Hospital Course Was the Problem List Reviewed?: Yes Paracentesis will be performed as an outpatient Picc line will be placed Will plan for DC if we can get the picc line placed and Vancomycin dosed once a day Denies any pain Discussion & Recommendations Discharge Planning: <30 minutes discharge planning Supervisory-Addendum Brief Verification & Attestation Participated in pt care: history, MDM, physical Personally performed: exam, history, MDM, supervision of care Care discussed with: Medical Student Procedures: n/a Results interpretation: Verified all documentation Verification and Attestation of Medical Student E/M Service A medical student performed and documented this service in my presence. I reviewed and verified all information documented by the medical student and made modifications to such information, when appropriate. I personally performed the physical exam and medical decision making. Cindy Scruggs, Oct 07, 2019,05:54 [facility] Oct 06, 2019 13:08 CINDY ZARATE DO Oct 07, 2019 05:55 POS
--- NOTE | 2019-10-06 15:46 | Progress Note ---
Subjective Date Seen by a Provider: Oct 06, 2019 Time Seen by a Provider: 15:20 Subjective/Events-last exam Patient reports doing well. Tolerating diet and ambulating. No N/V. No Fever/chills. Scheduled for PICC and Outpatient abx starting tomorrow. Focused Exam Time of Focused Exam: 21:31 Objective Exam Vital Signs Date Time Temp Pulse Resp B/P (MAP) Pulse Ox O2 Delivery O2 Flow Rate FiO2 10/06/19 13:00 94 10/06/19 12:00 36.7 86 18 99/55 (70) 96 Room Air 10/06/19 09:00 99 Room Air 10/06/19 08:34 109 10/06/19 08:00 36.5 109 18 112/71 (85) 99 Room Air 10/06/19 04:00 36.2 84 16 104/72 (83) 95 Room Air 10/06/19 01:00 80 10/06/19 00:00 36.2 80 16 104/56 (72) 91 Room Air 10/05/19 21:00 Room Air 10/05/19 20:00 36.0 106 18 106/56 (73) 94 Room Air 10/05/19 19:00 109 10/05/19 16:00 36.0 99 18 109/72 (84) 96 Room Air I & O 10/06/19 07:00 Intake Total 3140 ml Output Total 2700 ml Balance 440 ml Capillary Refill : Less Than 3 Seconds General Appearance: No Apparent Distress, WD/WN Neck: Full Range of Motion, Normal Inspection, Non Tender, Supple Respiratory: Normal Breath Sounds, No Accessory Muscle Use, No Respiratory Distress Cardiovascular: Regular Rate, Rhythm, No Murmur Gastrointestinal: normal bowel sounds, distended, tenderness Extremity: Normal Capillary Refill, Normal Inspection, Normal Range of Motion Neurologic/Psychiatric: Alert, Oriented x3 Skin: Normal Color, Warm/Dry Results Lab Laboratory Tests 10/06/19 05:00: White Blood Count 10.4, Red Blood Count 3.79L, Hemoglobin 7.9L, Hematocrit 25L, Mean Corpuscular Volume 67L, Mean Corpuscular Hemoglobin 21L, Mean Corpuscular Hemoglobin Concent 31L, Red Cell Distribution Width 21.6H, Platelet Count 592H, Mean Platelet Volume 10.0, Neutrophils (%) (Auto) 56, Lymphocytes (%) (Auto) 17, Monocytes (%) (Auto) 13H, Eosinophils (%) (Auto) 14H, Basophils (%) (Auto) 1, Neutrophils # (Auto) 5.9, Lymphocytes # (Auto) 1.7, Monocytes # (Auto) 1.3H, Eosinophils # (Auto) 1.5H, Basophils # (Auto) 0.1, Sodium Level 133L, Potassium Level 4.1, Chloride Level 99, Carbon Dioxide Level 26, Anion Gap 8, Blood Urea Nitrogen 7, Creatinine 0.67, Estimat Glomerular Filtration Rate > 60, BUN/Creatinine Ratio 10, Glucose Level 102, Calcium Level 8.0L, Phosphorus Level 3.6, Magnesium Level 1.8, Vancomycin Level Trough 22.5H Microbiology 10/01/19 Blood Culture - Preliminary, Resulted No growth 10/01/19 Gram Stain - Final, Complete 10/01/19 Body Fluid Culture - Final, Complete Staphylococcus aureus See Comments 10/01/19 MRSA Screen - Final, Complete 10/01/19 Urine Culture - Final, Complete Gardnerella vaginalis 10/01/19 Gram Stain - Final, Complete 10/01/19 Wound Culture - Final, Complete Staphylococcus aureus Assessment/Plan Assessment/Plan Assess & Plan/Chief Complaint A 38 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 WBC WNL Scheduled for PICC line and outpatient abx. will eventually need this tunneled catheter removed as well. Follow up with us in 1-2 weeks. Clinical Quality Measures DVT/VTE Risk/Contraindication: Risk Factor Score Per Nursin RFS Level Per Nursing on Admit: 4+=Very High TANO MARQUEZ DENTAL ASSISTANT MEDICAL ASSISTANT Oct 06, 2019 15:46 POS
--- NOTE | 2019-10-06 15:54 | NUR ---
Pt discharged home today. Received physician's order for social service consult based on pt report that she has no water in the home as was shut off due to lack of payment. Pt states she still has power and heat and wants to go home.She has two keycase assembler chika Dasilva from [facility] and a egg caser Leola Riley from [facility].Advised both keycase assembler that pt was without transportation and needed assistance. [facility] Water Dept states that pt owes $97.94 and upon payment they will turn on her water.Pt states she can't pay till the October.She plans to stay with a friend and will notify casemanagers for their assistance when she is discharged to home. Pt without transportation and will be given taxi vouchers by Bernadette TAMEZ.Pt will be returning to [facility] tomorrow for IV antibiotics and was given taxi voucher as the [facility] Van was unavailable.
[2019-10-06 16:00] VITALS: BP 99/55
[2019-10-06] MEDS ORDERED: TRAM-42 PO (17:08)
[2019-10-07] MEDS ORDERED: VANCOMYCIN 1500 MG/NS 500 ML IVPB IV SCH ×2 (09:00)
== END 2019-10-06 16:20 | disposition home or self-care (01) | DRG 919 ==
LOC: EDUNIT# 18:18 → ER 18:20 → ICU 21:35 → 4TH 10-02 11:49
PROVIDERS: ADMIT Family Medicine; ATTEND Family Medicine
DX: T85.79XA Infection and inflammatory reaction due to other internal prosthetic devices, implants and grafts, initial encounter (principal); A41.02 Sepsis due to Methicillin resistant Staphylococcus aureus; R65.20 Severe sepsis without septic shock; K65.2 Spontaneous bacterial peritonitis; L03.311 Cellulitis of abdominal wall; R18.8 Other ascites; I48.19 Other persistent atrial fibrillation; K21.0 Gastro-esophageal reflux disease with esophagitis; K44.9 Diaphragmatic hernia without obstruction or gangrene; K29.70 Gastritis, unspecified, without bleeding; D50.9 Iron deficiency anemia, unspecified; F17.210 Nicotine dependence, cigarettes, uncomplicated; J44.9 Chronic obstructive pulmonary disease, unspecified; R01.1 Cardiac murmur, unspecified; I10 Essential (primary) hypertension; G40.909 Epilepsy, unspecified, not intractable, without status epilepticus; N31.9 Neuromuscular dysfunction of bladder, unspecified; K58.9 Irritable bowel syndrome, unspecified; M79.7 Fibromyalgia; M54.9 Dorsalgia, unspecified; F90.9 Attention-deficit hyperactivity disorder, unspecified type; F41.9 Anxiety disorder, unspecified; F43.10 Post-traumatic stress disorder, unspecified; F31.9 Bipolar disorder, unspecified; F60.9 Personality disorder, unspecified; F12.10 Cannabis abuse, uncomplicated; F15.10 Other stimulant abuse, uncomplicated; Z95.0 Presence of cardiac pacemaker; Z95.2 Presence of prosthetic heart valve; Z87.11 Personal history of peptic ulcer disease
CPT/HCPCS: 36415; 71045; 74177; 80048; 80053; 80202; 81000; 82728; 83540; 83605; 83735; 84100; 85007; 85025; 85027; 85610; 85730; 86141; 87040; 87070; 87077; 87081; 87088; 87186; 87205; 96365; 96375

== ENCOUNTER 2019-10-10 23:42 | Emergency (ER) | payer MEDICAID ==
[~2019-10-10] VITALS: Ht 160 cm; Wt 60.8 kg
[~2019-10-10 23:42] MED LIST changes: +CALC300T4 PO; +KETO10TA PO; +SPIR25TA5 PO; +SUCR1TAB PO; +TRAM-42 PO; +VANC1.5P12 IV
[2019-10-11] MEDS ORDERED: FURO20TA4 (00:21)
[2019-10-11] MEDS ORDERED: TRAM50TA2 (00:21)
[2019-10-11] MEDS ORDERED: POTA-51 (00:21)
[2019-10-11] MEDS ORDERED: HYDR-3812 PO (00:59)
--- NOTE | 2019-10-11 00:59 | ED General ---
General Chief Complaint: Catheter/Drain/Tube Problems Stated Complaint: INFECTED DRAIN TUBE Nursing Triage Note: BURNING PAIN NEAR ABDOMINAL DRAIN WORSE TODAY. Nursing Sepsis Screen: No Definite Risk Source of Information: Patient, Old Records Exam Limitations: No Limitations History of Present Illness Date Seen by Provider: Oct 11, 2019 Time Seen by Provider: 00:07 Initial Comments This 38-year-old woman presents to the emergency room with complaints of pain around her paracentesis drain site. She has had infection related to this drain and is presently receiving IV antibiotics via PICC line. She had been admitted for severe sepsis related to this infection on October 01. Today she reports increased pain around the insertion site. Allergies and Home Medications Allergies Coded Allergies: asenapine (Unverified Allergy, Severe, TOUNGE SWELLING, 03/31/19) Penicillins (Unverified Allergy, Unknown, 03/31/19) Sulfa (Sulfonamide Antibiotics) (Unverified Allergy, Unknown, 03/31/19) erythromycin base (Verified Allergy, Unknown, 03/31/19) peas (Verified Allergy, Unknown, 03/31/19) prochlorperazine (Verified Allergy, Unknown, 03/31/19) promethazine (Verified Allergy, Unknown, 01/31/06) promethazine HCl (Unverified Allergy, Unknown, 06/07/14) propoxyphene (Verified Allergy, Unknown, 11/26/05) Home Medications Acetaminophen 500 Mg Tablet, 1,000 MG PO Q4H PRN for PAIN-MILD (1-4), (Reported) Albuterol Sulfate 6.7 Gm Hfa.aer.ad, 2 PUFF INH Q4H PRN for SHORTNESS OF BREATH, (Reported) Buspirone HCl 10 Mg Tablet, 10 MG PO BID, (Reported) Calcium Carbonate 300 Mg Tab.chew, 300 MG PO QID PRN for INDIGESTION, (Reported) Cyclobenzaprine HCl 10 Mg Tablet, 10 MG PO BID, (Reported) LAST FILLED #60 08-11-19 Digoxin 125 Mcg Tablet, 125 MCG PO DAILY, (Reported) Diltiazem HCl 180 Mg Cap.er.24h, 180 MG PO DAILY, (Reported) Escitalopram Oxalate 20 Mg Tablet, 20 MG PO DAILY, (Reported) LAST FILLED #30 07-28-19 Hydrocodone/Acetaminophen 1 Each Tablet, 1-2 TAB PO Q4-6HR PRN for PAIN-MODERATE (5-7), (Reported) Hydrocodone/Acetaminophen 1 Each Tablet, 1 TAB PO Q4-6HR Prescribed by: COLIN QUEVEDO on 10/11/19 0059 Hydroxyzine Pamoate 25 Mg Capsule, 25 MG PO BID, (Reported) Levetiracetam 1,000 Mg Tablet, 1,000 MG PO BID, (Reported) LAST FILLED #60 08-11-19 Metoprolol Tartrate 25 Mg Tablet, 25 MG PO BID, (Reported) Mirtazapine 15 Mg Tablet, 15 MG PO HS, (Reported) Omeprazole 40 Mg Capsule.dr, 40 MG PO HS, (Reported) LAST FILLED 06-12-19 #30 Polyethylene Glycol 3350 17 Gm Powd.pack, 17 GM PO BID PRN for CONSTIPATION-2ND LINE, (Reported) Risperidone 1 Mg Tablet, 1 MG PO BID, (Reported) LAST FILLED #60 08-11-19 Rivaroxaban 20 Mg Tablet, 20 MG PO DAILY, (Reported) LAST FILLED #30 08-11-19 Spironolactone 25 Mg Tablet, 25 MG PO BID, (Reported) Sucralfate 1 Gm Tablet, 1 GM PO QID, (Reported) Tramadol HCl 50 Mg Tablet, 50 MG PO 4-6 Prescribed by: SIVAKUMAR BAUER on 10/06/19 1708 Vancomycin HCl/D5w 1.5 Gm/250 Ml Plast..bag, 1.5 GM IV DAILY Prescribed by: JAGDISH SCRUGGS on 10/06/19 1204 Patient Home Medication List Home Medication List Reviewed: Yes Review of Systems Review of Systems Constitutional: no symptoms reported EENTM: no symptoms reported Respiratory: no symptoms reported Cardiovascular: no symptoms reported Gastrointestinal: see HPI Genitourinary: no symptoms reported Musculoskeletal: no symptoms reported Skin: see HPI Psychiatric/Neurological: No Symptoms Reported Hematologic/Lymphatic: No Symptoms Reported Past Trgocqt-[id number]-Tuwwsr Hx Past Med/Social Hx: Reviewed Nursing Past Med/Soc Hx Patient Social History Alcohol Use: Occasionally Uses Number of Drinks Today: CC Alcohol Beverage of Choice: Beer, Cheap Liquor Recreational Drug Use: Yes Drug of Choice: THC Smoking Status: Current Everyday Smoker Type Used: Cigarettes 2nd Hand Smoke Exposure: Yes Recent Foreign Travel: No Contact w/Someone Who Travel: No Recent Infectious Disease Expo: No Recent Hopitalizations: No Physical Abuse: No Sexual Abuse: No Mistreated: No Fear: No Immunizations Up To Date Tetanus Booster (TDap): Unknown PED Vaccines UTD: Yes Date of Pneumonia Vaccine: Oct 22, 2017 Date of Influenza Vaccine: Sep 06, 2019 Seasonal Allergies Seasonal Allergies: No Past Medical History Surgeries: Yes Abdominal, Appendectomy, Cardiac, Section, Gallbladder, Hysterectomy, Oophorectomy, Orthopedic, Pacemaker, Tubal Ligation, Valve Replacement Respiratory: Yes Asthma, Chronic Bronchitis, COPD, Emphysema Currently Using CPAP: No Currently Using BIPAP: No Cardiac: Yes Atrial Fibrillation, Chronic Edema/Swelling, Congenital Heart Disease, Heart Murmur, Hypertension, Irregular Heartbeat, Syncope, Valvular Heart Disease Neurological: Yes Seizure Disorder : No 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: Yes 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: 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 Sexually Transmitted Disease: No HIV/AIDS: No Genitourinary: Yes Neurogenic Bladder Gastrointestinal: Yes Gastroesophageal Reflux, Gastrointestinal Bleed, Hiatal Hernia, Ulcer, Irritable Bowel Musculoskeletal: Yes Degenerate Disk Disease, Fibromyalgia, Back Injury, Chronic Back Pain, Fractures Endocrine: No HEENT: Yes Loss of Vision: Bilateral Hearing Impairment: Denies Cancer: No Psychosocial: Yes ADD/ADHD, Anxiety, PTSD, Suicide Attempts, Bipolar, Personality Disorder, Depression Integumentary: No Blood Disorders: No Adverse Reaction/Blood Tranf: No Family Medical History Alcoholism 19 MOTHER Depression Depression Diabetes mellitus 19 MOTHER Drug abuse 19 MOTHER FH: cancer of genital organ 19 MOTHER No Pertinent Family Hx, Diabetes, Psychiatric Problems, Other Conditions/Hx Physical Exam Vital Signs Vital Signs - First Documented 10/11/19 00:12 Temp 36.2 Pulse 81 Resp 18 B/P (MAP) 108/67 (81) Pulse Ox 98 O2 Delivery Room Air Capillary Refill : Less Than 3 Seconds Height, Weight, BMI Height: 5'3.00" Weight: 130lbs. 0.0oz. [id number]; 23.00 BMI Method:Stated General Appearance: No Apparent Distress, WD/WN HEENT: PERRL/EOMI, Normal ENT Inspection Neck: Normal Inspection Respiratory: Lungs Clear, Normal Breath Sounds, No Accessory Muscle Use Cardiovascular: Regular Rate, Rhythm, No Edema, Normal Peripheral Pulses Gastrointestinal: Normal Bowel Sounds, Non Tender, Soft Extremity: Normal Inspection, Non Tender Neurologic/Psychiatric: Alert, Oriented x3, No Motor/Sensory Deficits, Normal Mood/Affect, inventory administrator II-XII Norm as Tested Skin: Warm/Dry, Erythema (erythema around the insertion site, mild) Progress/Results/Core Measures Suspected Sepsis Recent Fever Within 48 Hours: No Infection Criteria Present: None New/Unexplained Altered Menta: No Sepsis Screen: No Definite Risk SIRS Temperature: Pulse: 81 Respiratory Rate: 18 Blood Pressure 108 /67 Mean: 81 Results/Orders My Orders Orders - COLIN BRANNON MD Hydrocodone/Apap 5/325 Tablet (Lortab 5 (10/11/19 01:00) Medications Given in ED Current Medications Medications Dose Ordered Sig/Norma Route Start Time Stop Time Status Last Admin Dose Admin Acetaminophen/ Hydrocodone Bitart 1 tab ONCE ONCE PO 10/11/19 01:00 10/11/19 01:01 DC 10/11/19 01:11 1 TAB Vital Signs/I&O 10/11/19 10/11/19 00:12 01:13 Temp 36.2 36.2 Pulse 81 73 Resp 18 18 B/P (MAP) 108/67 (81) 113/67 (81) Pulse Ox 98 98 O2 Delivery Room Air Room Air Capillary Refill : Less Than 3 Seconds Blood Pressure Mean: 81 Progress Note : Progress Note Patient primarily has pain at the insertion site of the paracentesis drain. There is minimal erythema around the insertion site. Abdomen is soft and nondistended. Patient's pain was treated with hydrocodone and she was dismissed. Departure Impression Primary Impression: paracentesis drain site pain Disposition: 01 HOME, SELF-CARE Condition: Improved Departure-Patient Inst. Decision time for Depature: 00:58 Referrals: [facility] (PCP) Primary Care Physician FRANCHESKA HEADLEY (Family) Primary Care Physician Patient Instructions: CHRONIC PAIN Add. Discharge Instructions: Use your pain medication as prescribed. Follow-up with your primary care provider for management of chronic pain. Follow-up with Dr. Rose as soon as possible to assess your drain site. All discharge instructions reviewed with patient and/or family. Voiced understanding. Scripts Hydrocodone/Acetaminophen (Hydrocodone-Acetamin 5-325 mg) 1 Each Tablet 1 TAB PO Q4-6HR for PAIN-MODERATE, #15 TAB Prov: COLIN BRANNON MD 10/11/19 Copy Copies To 1: TARAH ROSE MD Copies To 2: ELIEL YAN JOSHUA T MD Oct 11, 2019 00:59
[2019-10-11] MEDS ORDERED: HYDROcodone/APAP 5 MG/325 MG (LORTAB) TAB PO ONE (01:00)
[2019-10-11 01:13] VITALS: BP 113/67
== END 2019-10-11 01:15 | disposition home or self-care (01) ==
LOC: EDUNIT# 23:42 → ER 23:45
DX: G89.18 Other acute postprocedural pain (principal); J43.9 Emphysema, unspecified; I10 Essential (primary) hypertension; I48.91 Unspecified atrial fibrillation; G40.909 Epilepsy, unspecified, not intractable, without status epilepticus; K21.9 Gastro-esophageal reflux disease without esophagitis; K58.9 Irritable bowel syndrome, unspecified; M79.7 Fibromyalgia; F90.9 Attention-deficit hyperactivity disorder, unspecified type; F41.9 Anxiety disorder, unspecified; F31.9 Bipolar disorder, unspecified; F60.9 Personality disorder, unspecified; F17.210 Nicotine dependence, cigarettes, uncomplicated; Z90.49 Acquired absence of other specified parts of digestive tract; Z90.710 Acquired absence of both cervix and uterus; Z98.51 Tubal ligation status; Z95.0 Presence of cardiac pacemaker; Z88.0 Allergy status to penicillin; Z88.2 Allergy status to sulfonamides; Z88.1 Allergy status to other antibiotic agents; Z88.8 Allergy status to other drugs, medicaments and biological substances; Z80.49 Family history of malignant neoplasm of other genital organs
CPT/HCPCS: 99283

== ENCOUNTER 2019-10-13 12:28 | Outpatient (RCR) | payer MEDICAID ==
[~2019-10-13] VITALS: Ht 160 cm; Wt 60.8 kg
[~2019-10-13 12:28] MED LIST changes: +DIGO125T3 PO; -DILT180C PO; +DILT180C85 PO; +DIPH25CA48 PO; -DIPH25CA6 PO; -DOXY100T19 PO; +DOXY100T31 PO; +FURO20TA4; +OMEP40CA27 PO; -OMEP40CA36 PO; +POTA-51; +TRM50T
[2019-10-13 12:55] VITALS: BP 93/74
[2019-10-16] MEDS ORDERED: ACHD5005 PO (17:13)
[2019-10-22] MEDS ORDERED: CEFD300C3 PO (18:53)
[2019-10-31] MEDS ORDERED: HYDR25CA PO (20:21)
== END 2019-11-10 12:41 | disposition home or self-care (01) ==
LOC: SDC 12:28
PROVIDERS: ATTEND Surgery
DX: Z45.2 Encounter for adjustment and management of vascular access device (principal)

== ENCOUNTER 2019-10-16 12:16 | Emergency (ER) | payer MEDICAID ==
[~2019-10-16] VITALS: Ht 160 cm; Wt 57.5 kg
[~2019-10-16 12:16] MED LIST changes: -DIGO125T3 PO; +DILT180C PO; -DILT180C85 PO; -DIPH25CA48 PO; +DIPH25CA6 PO; +DOXY100T19 PO; -DOXY100T31 PO; -OMEP40CA27 PO; +OMEP40CA36 PO; +TRAM50TA2; -TRM50T
[2019-10-16] MEDS ORDERED: HYDROcodone/APAP 7.5 MG/325 MG (LORTAB, LORCET PLUS) TABLET PO STA (14:29)
[2019-10-16 14:59] LABS: BILIRUBIN,URINE NEGATIVE (NEGATIVE); CLARITY,URINE CLEAR; COLOR,URINE YELLOW; GLUCOSE, URINE (UA) NEGATIVE (NEGATIVE); KETONES,URINE NEGATIVE (NEGATIVE); LEUKOCYTE ESTERASE ,URINE NEGATIVE (NEGATIVE); NITRITE,URINE NEGATIVE (NEGATIVE); PROTEIN,URINE NEGATIVE (NEGATIVE)
[2019-10-16 15:07] LABS: RBC,URINE RARE /HPF
[2019-10-16 15:08] LABS: BACTERIA,URINE FEW /HPF
[2019-10-16 15:09] LABS: BASOPHILS # (AUTO) 0.1 10^3/uL (0.0-0.1); BASOPHILS % (AUTO) 1 % (0-10); EOSINOPHILS # (AUTO) 0.5 10^3/uL (0.0-0.3); EOSINOPHILS % (AUTO) 5 % (0-10); HEMATOCRIT 27 % (35-52); HEMOGLOBIN 8.4 G/DL (11.5-16.0); LYMPHOCYTES # (AUTO) 1.7 X 10^3 (1.0-4.0); LYMPHOCYTES % (AUTO) 18 % (12-44); MEAN CORPUSCULAR HEMOGLOBIN 21 PG (25-34); MEAN CORPUSCULAR HGB CONC 31 G/DL (32-36); MEAN CORPUSCULAR VOLUME 67 FL (80-99); MONOCYTES % (AUTO) 11 % (0-12); NEUTROPHILS # (AUTO) 6.2 X 10^3 (1.8-7.8); NEUTROPHILS % (AUTO) 66 % (42-75); PLATELET COUNT 830 10^3/uL (130-400); RED CELL DISTRIBUTION WIDTH 21.3 % (10.0-14.5); WHITE BLOOD COUNT 9.4 10^3/uL (4.3-11.0)
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
[2019-10-16] MEDS ORDERED: VANCOMYCIN INJECTION 2,000 MG in NS IV 500 ML 500 ML IV SCH (15:15)
[2019-10-16] MEDS ORDERED: CATHETER FLUSH 10 ML SYR IV PRN (15:15)
[2019-10-16] MEDS ORDERED: IOHEXOL 350 MG/ML 100 ML (OMNIPAQUE 350) VIAL IV ONE (15:15)
[2019-10-16] MEDS ORDERED: HOLD METFORMIN - RECEIVED CONTRAST 20 ML VIAL IV SCH (15:15)
[2019-10-16] MEDS ORDERED: NS 100 ML (IVPB) BAG IV ONE (15:15)
[2019-10-16 15:44] LABS: ALANINE AMINOTRANSFERASE 11 U/L (0-55); ALBUMIN 2.9 GM/DL (3.2-4.5); ALKALINE PHOSPHATASE 167 U/L (40-136); BILIRUBIN,TOTAL 0.5 MG/DL (0.1-1.0); BUN/CREATININE RATIO 9; CARBON DIOXIDE 23 MMOL/L (21-32); CHLORIDE 105 MMOL/L (98-107); CREATININE SERUM 0.69 MG/DL (0.60-1.30); GFR ESTIMATED > 60; GLUCOSE 92 MG/DL (70-105); POTASSIUM 4.6 MMOL/L (3.6-5.0); SODIUM 135 MMOL/L (135-145); TOTAL PROTEIN 7.1 GM/DL (6.4-8.2)
--- NOTE | 2019-10-16 16:15 | Diagnostic Imaging Report ---
EXAMINATION: CT Abdomen and Pelvis with intravenous contrast. TECHNIQUE: Multiple contiguous axial images were obtained through the abdomen and pelvis after the uneventful administration of intravenous contrast. All CT scans use one or more of the following dose optimizing techniques: automated exposure control, MA and/or KvP adjustment based on a patient size and exam type, or iterative reconstruction. HISTORY: Abdominal pain. COMPARISON: 10/01/2019. FINDINGS: Limited views of the lower thorax show changes of median sternotomy and dilated right atrium and right ventricle. There appears to be a tricuspid valve replacement and pacing wires. No suspicious liver lesions are seen. No biliary ductal dilation. Portal vein is patent. Gallbladder is surgically absent. Pancreas is normal. Spleen is absent. Adrenal glands are normal. Kidneys are normal. No suspicious renal lesions. No hydronephrosis. Urinary bladder is decompressed. There is a moderate amount of ascites. A peritoneal catheter is present. No free air is seen. No dilated or obstructed bowel. No wall thickening. There are some prominent retroperitoneal lymph nodes which are likely reactive. Abdominal aorta is normal in caliber. There are no suspicious osseous lesions. There is instrumented fusion of the thoracic spine. IMPRESSION: 1. Moderate amount of ascites without new acute abnormality in the abdomen or pelvis. Dictated by: Dictated on workstation # [id number]
[2019-10-16] MEDS ORDERED: ACHD5005 PO (17:13)
[2019-10-16 18:09] VITALS: BP 113/82
== END 2019-10-16 18:10 | disposition home or self-care (01) ==
LOC: EDUNIT# 12:16 → ER 12:18
DX: R18.8 Other ascites (principal); J43.9 Emphysema, unspecified; I10 Essential (primary) hypertension; G40.909 Epilepsy, unspecified, not intractable, without status epilepticus; I48.91 Unspecified atrial fibrillation; K21.9 Gastro-esophageal reflux disease without esophagitis; K58.9 Irritable bowel syndrome, unspecified; M79.7 Fibromyalgia; F90.9 Attention-deficit hyperactivity disorder, unspecified type; F41.9 Anxiety disorder, unspecified; F43.10 Post-traumatic stress disorder, unspecified; F31.9 Bipolar disorder, unspecified; F60.9 Personality disorder, unspecified; F17.210 Nicotine dependence, cigarettes, uncomplicated; Z90.49 Acquired absence of other specified parts of digestive tract; Z90.710 Acquired absence of both cervix and uterus; Z98.51 Tubal ligation status; Z88.0 Allergy status to penicillin; Z88.2 Allergy status to sulfonamides; Z88.1 Allergy status to other antibiotic agents; Z88.8 Allergy status to other drugs, medicaments and biological substances; Z79.01 Long term (current) use of anticoagulants; Z95.0 Presence of cardiac pacemaker; Z80.49 Family history of malignant neoplasm of other genital organs
CPT/HCPCS: 36415; 74177; 80053; 81000; 85025; 86141; 87088; 96374

== ENCOUNTER 2019-10-22 14:44 | Emergency (ER) | payer MEDICAID ==
[~2019-10-22] VITALS: Ht 160 cm; Wt 56.2 kg
[~2019-10-22 14:44] MED LIST changes: -TRAM50TA2; +TRM50T
[2019-10-22] MEDS ORDERED: PANTOPRAZOLE 40 MG (PROTONIX) VIAL IV ONE (15:00)
[2019-10-22] MEDS ORDERED: FAMOTIDINE 20MG/2ML IV (PEPCID) IVP ONE (15:00)
[2019-10-22 16:02] LABS: BASOPHILS # (AUTO) 0.1 10^3/uL (0.0-0.1); BASOPHILS % (AUTO) 1 % (0-10); EOSINOPHILS # (AUTO) 0.5 10^3/uL (0.0-0.3); EOSINOPHILS % (AUTO) 5 % (0-10); HEMATOCRIT 28 % (35-52); HEMOGLOBIN 8.6 G/DL (11.5-16.0); LYMPHOCYTES # (AUTO) 1.9 X 10^3 (1.0-4.0); LYMPHOCYTES % (AUTO) 23 % (12-44); MEAN CORPUSCULAR HEMOGLOBIN 21 PG (25-34); MEAN CORPUSCULAR HGB CONC 31 G/DL (32-36); MEAN CORPUSCULAR VOLUME 66 FL (80-99); MEAN PLATELET VOLUME 8.8 FL (7.4-10.4); MONOCYTES # (AUTO) 1.1 X 10^3 (0.0-1.0); MONOCYTES % (AUTO) 13 % (0-12); NEUTROPHILS % (AUTO) 58 % (42-75); PLATELET COUNT 738 10^3/uL (130-400); RED CELL DISTRIBUTION WIDTH 20.8 % (10.0-14.5); WHITE BLOOD COUNT 8.5 10^3/uL (4.3-11.0)
[2019-10-22] MEDS ORDERED: FAMOTIDINE 20MG/2ML IV (PEPCID) IV STA (16:04)
[2019-10-22 16:07] LABS: INR 1.1 (0.8-1.4); PROTHROMBIN TIME PATIENT 14.6 SEC (12.2-14.7)
--- NOTE | 2019-10-22 16:11 | ED GI ---
General Chief Complaint: Abdominal/GI Problems Stated Complaint: VOMITTING BLOOD Nursing Triage Note: PATIENT HERE FOR VOMITING X2 DAYS WITH BLOOD TINGE. SHE FEELS ACID BURNING MIDLINE/ESOPHAGUS. SHE TAKES MEDS FOR THIS. Sepsis Screen: No Definite Risk Source of Information: Patient, Other Exam Limitations: No Limitations History of Present Illness Date Seen by Provider: Oct 22, 2019 Time Seen by Provider: 15:51 Initial Comments Patient presents to ER by private conveyance with chief complaint of feeling in burning sensation running up her esophagus in the back of her throat and feeling like something is stuck in the back of her throat as well as some mild discomfort in her epigastric region. She also feels that her ascites that has been collecting in her abdomen for the past 3 days needs drained again. She was getting it drained outpatient every day when she was getting vancomycin for peritonitis but stopped her vancomycin on Sunday. She's been followed by Dr. Rose and by Sascha Scott at [facility]. She's had some chills and subjective fever since yesterday but no objective fevers. She is concerned that her bacterial peritonitis may have recurred. She says she has ulcer in her stomach and was post to start Carafate but forgot that she was given the Carafate after her EGD and so did not actually start until today. She does take a PPI. She's noticed yesterday and today she had some blood-tinged emesis and is nauseated now. She denies any dysuria cough or diarrhea. She had a normal bowel movement yesterday. She does have some pain in her right ear on contact or if air blows by. She is on Xarelto. Her ascites collection is secondary to liver failure. Allergies and Home Medications Allergies Coded Allergies: asenapine (Unverified Allergy, Severe, TOUNGE SWELLING, 03/31/19) Penicillins (Unverified Allergy, Unknown, 03/31/19) Sulfa (Sulfonamide Antibiotics) (Unverified Allergy, Unknown, 03/31/19) erythromycin base (Verified Allergy, Unknown, 03/31/19) peas (Verified Allergy, Unknown, 03/31/19) prochlorperazine (Verified Allergy, Unknown, 03/31/19) promethazine (Verified Allergy, Unknown, 01/31/06) promethazine HCl (Unverified Allergy, Unknown, 06/07/14) propoxyphene (Verified Allergy, Unknown, 11/26/05) Home Medications Acetaminophen 500 Mg Tablet, 1,000 MG PO Q4H PRN for PAIN-MILD (1-4), (Reported) Albuterol Sulfate 6.7 Gm Hfa.aer.ad, 2 PUFF INH Q4H PRN for SHORTNESS OF BREATH, (Reported) Buspirone HCl 10 Mg Tablet, 10 MG PO BID, (Reported) Calcium Carbonate 300 Mg Tab.chew, 300 MG PO QID PRN for INDIGESTION, (Reported) Cyclobenzaprine HCl 10 Mg Tablet, 10 MG PO BID, (Reported) LAST FILLED #60 08-11-19 Digoxin 125 Mcg Tablet, 125 MCG PO DAILY, (Reported) Diltiazem HCl 180 Mg Cap.er.24h, 180 MG PO DAILY, (Reported) Escitalopram Oxalate 20 Mg Tablet, 20 MG PO DAILY, (Reported) LAST FILLED #30 07-28-19 Hydrocodone Bit/Acetaminophen 1 Tab Tab, 1 EACH PO Q6H PRN for PAIN-MODERATE Prescribed by: KEAGAN LUNDBERG on 10/16/19 1713 Hydrocodone/Acetaminophen 1 Each Tablet, 1-2 TAB PO Q4-6HR PRN for PAIN-MODERATE (5-7), (Reported) Hydrocodone/Acetaminophen 1 Each Tablet, 1 TAB PO Q4-6HR Prescribed by: COLIN QUEVEDO on 10/11/19 0059 Hydroxyzine Pamoate 25 Mg Capsule, 25 MG PO BID, (Reported) Levetiracetam 1,000 Mg Tablet, 1,000 MG PO BID, (Reported) LAST FILLED #60 08-11-19 Metoprolol Tartrate 25 Mg Tablet, 25 MG PO BID, (Reported) Mirtazapine 15 Mg Tablet, 15 MG PO HS, (Reported) Omeprazole 40 Mg Capsule.dr, 40 MG PO HS, (Reported) LAST FILLED 06-12-19 #30 Polyethylene Glycol 3350 17 Gm Powd.pack, 17 GM PO BID PRN for CONSTIPATION-2ND LINE, (Reported) Risperidone 1 Mg Tablet, 1 MG PO BID, (Reported) LAST FILLED #60 08-11-19 Rivaroxaban 20 Mg Tablet, 20 MG PO DAILY, (Reported) LAST FILLED #30 08-11-19 Spironolactone 25 Mg Tablet, 25 MG PO BID, (Reported) Sucralfate 1 Gm Tablet, 1 GM PO QID, (Reported) Tramadol HCl 50 Mg Tablet, 50 MG PO 4-6 Prescribed by: SIVAKUMAR BAUER on 10/06/19 1708 Vancomycin HCl/D5w 1.5 Gm/250 Ml Plast..bag, 1.5 GM IV DAILY Prescribed by: JAGDISH SCRUGGS on 10/06/19 1204 Patient Home Medication List Home Medication List Reviewed: Yes Review of Systems Review of Systems Constitutional: chills, fever (Subjective only), malaise EENTM: No Blurred Vision, No Double Vision Respiratory: Denies Cough, Denies Shortness of Air Cardiovascular: Denies Chest Pain, Denies Lightheadedness Gastrointestinal: See HPI, Abdominal Pain; Denies Blood Streaked Stools, Denies Constipated, Denies Diarrhea; Nausea, Vomiting Genitourinary: Denies Burning, Denies Discharge Musculoskeletal: No back pain, No joint pain Skin: No pruritus, No rash Psychiatric/Neurological: Denies Headache, Denies Numbness All Other Systems Reviewed Negative Unless Noted: Yes Past Bdbmauy-Yeyoxr-Jmiswy Hx Patient Social History Alcohol Use: Denies Use Number of Drinks Today: CC Alcohol Beverage of Choice: Beer, Cheap Liquor Recreational Drug Use: Yes (CRYSTAL, WEED, PILLS ET CLEAN FOR 2 MONTHS) Drug of Choice: THC Smoking Status: Current Everyday Smoker Type Used: Cigarettes 2nd Hand Smoke Exposure: Yes Recent Foreign Travel: No Contact w/Someone Who Travel: No Recent Infectious Disease Expo: No Recent Hopitalizations: No Immunizations Up To Date Tetanus Booster (TDap): Unknown PED Vaccines UTD: Yes Date of Pneumonia Vaccine: Oct 22, 2017 Date of Influenza Vaccine: Sep 06, 2019 Seasonal Allergies Seasonal Allergies: No Past Medical History Surgeries: Yes Abdominal, Appendectomy, Cardiac, Section, Gallbladder, Hysterectomy, Oophorectomy, Orthopedic, Pacemaker, Tubal Ligation, Valve Replacement Respiratory: Yes Asthma, Chronic Bronchitis, COPD, Emphysema Currently Using CPAP: No Currently Using BIPAP: No Cardiac: Yes Atrial Fibrillation, Chronic Edema/Swelling, Congenital Heart Disease, Heart Murmur, Hypertension, Irregular Heartbeat, Syncope, Valvular Heart Disease Neurological: Yes Seizure Disorder 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: Yes 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: 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 [employer] 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 Sexually Transmitted Disease: No HIV/AIDS: No Genitourinary: Yes Neurogenic Bladder Gastrointestinal: Yes Gastroesophageal Reflux, Gastrointestinal Bleed, Hiatal Hernia, Ulcer, Irritable Bowel Musculoskeletal: Yes Degenerate Disk Disease, Fibromyalgia, Back Injury, Chronic Back Pain, Fractures Endocrine: No HEENT: Yes Loss of Vision: Bilateral Hearing Impairment: Denies Cancer: No Psychosocial: Yes ADD/ADHD, Anxiety, PTSD, Suicide Attempts, Bipolar, Personality Disorder, Depression Integumentary: No Blood Disorders: No Adverse Reaction/Blood Tranf: No Family Medical History Alcoholism 19 MOTHER Depression Depression Diabetes mellitus 19 MOTHER Drug abuse 19 MOTHER FH: cancer of genital organ 19 MOTHER No Pertinent Family Hx, Diabetes, Psychiatric Problems, Other Conditions/Hx Physical Exam Vital Signs Vital Signs - First Documented 10/22/19 14:46 Temp 36.0 Pulse 122 Resp 20 B/P (MAP) 124/89 (101) Pulse Ox 98 Capillary Refill : Less Than 3 Seconds Height/Weight/BMI Height: 5'3.00" Weight: 130lbs. 0.0oz. [id number]; 21.00 BMI Method:Stated General Appearance: WD/WN, mild distress HEENT: PERRL/EOMI, TMs normal, pharynx normal, other (Right ear canal with mild erythema) Neck: non-tender, full range of motion, supple, normal inspection Respiratory: lungs clear, normal breath sounds, no respiratory distress, no accessory muscle use Cardiovascular: normal peripheral pulses, regular rate, rhythm, no edema, no JVD, tachycardia Peripheral Pulses: 2+ Radial Pulses (R), 2+ Radial Pulses (L) Gastrointestinal: normal bowel sounds, soft, tenderness (Around the site of her transcutaneous peritoneal drain) Extremities: normal range of motion, non-tender, normal inspection, normal capillary refill Neurologic/Psychiatric: alert, normal mood/affect, oriented x 3 Skin: normal color, warm/dry Progress/Results/Core Measures Results/Orders Lab Results Laboratory Tests Test 10/22/19 15:50 10/22/19 17:14 10/22/19 17:27 Range/Units White Blood Count 8.5 4.3-11.0 10^3/uL Red Blood Count 4.17 L 4.35-5.85 10^6/uL Hemoglobin 8.6 L 11.5-16.0 G/DL Hematocrit 28 L 35-52 % Mean Corpuscular Volume 66 L 80-99 FL Mean Corpuscular Hemoglobin 21 L 25-34 PG Mean Corpuscular Hemoglobin Concent 31 L 32-36 G/DL Red Cell Distribution Width 20.8 H 10.0-14.5 % Platelet Count 738 H 130-400 10^3/uL Mean Platelet Volume 8.8 7.4-10.4 FL Neutrophils (%) (Auto) 58 42-75 % Lymphocytes (%) (Auto) 23 12-44 % Monocytes (%) (Auto) 13 H 0-12 % Eosinophils (%) (Auto) 5 0-10 % Basophils (%) (Auto) 1 0-10 % Neutrophils # (Auto) 5.0 1.8-7.8 X 10^3 Lymphocytes # (Auto) 1.9 1.0-4.0 X 10^3 Monocytes # (Auto) 1.1 H 0.0-1.0 X 10^3 Eosinophils # (Auto) 0.5 H 0.0-0.3 10^3/uL Basophils # (Auto) 0.1 0.0-0.1 10^3/uL Prothrombin Time 14.6 12.2-14.7 SEC INR Comment 1.1 0.8-1.4 Activated Partial Thromboplast Time 30 24-35 SEC Sodium Level 137 135-145 MMOL/L Potassium Level 3.6 3.6-5.0 MMOL/L Chloride Level 105 98-107 MMOL/L Carbon Dioxide Level 21 21-32 MMOL/L Anion Gap 11 5-14 MMOL/L Blood Urea Nitrogen 8 7-18 MG/DL Creatinine 0.74 0.60-1.30 MG/DL Estimat Glomerular Filtration Rate > 60 BUN/Creatinine Ratio 11 Glucose Level 73 70-105 MG/DL Calcium Level 8.1 L 8.5-10.1 MG/DL Corrected Calcium 8.7 8.5-10.1 MG/DL Total Bilirubin 0.3 0.1-1.0 MG/DL Aspartate Amino Transf (AST/SGOT) 15 5-34 U/L Alanine Aminotransferase (ALT/SGPT) 12 0-55 U/L Alkaline Phosphatase 182 H 40-136 U/L C-Reactive Protein High Sensitivity 0.14 0.00-0.50 MG/DL Total Protein 7.2 6.4-8.2 GM/DL Albumin 3.2 3.2-4.5 GM/DL Body Fluid Source PERITON Body Fluid Color PALE YELLOW Body Fluid Appearance SLT CLDY Body Fluid WBC 130 /uL Body Fluid RBC 400 /uL Body Fluid Polynuclear WBCs 46 % Body Fluid Mononuclear WBCs 2 % Body Fluid Lymphocytes 30 % Body Fluid Other Cells 22 % Urine Color YELLOW Urine Clarity CLEAR Urine pH 7.0 5-9 Urine Specific Curtis 1.020 1.016-1.022 Urine Protein NEGATIVE NEGATIVE Urine Glucose (UA) NEGATIVE NEGATIVE Urine Ketones NEGATIVE NEGATIVE Urine Nitrite POSITIVE NEGATIVE Urine Bilirubin NEGATIVE NEGATIVE Urine Urobilinogen 0.2 < = 1.0 MG/DL Urine Leukocyte Esterase TRACE NEGATIVE Urine RBC (Auto) NEGATIVE NEGATIVE Urine RBC NONE /HPF Urine WBC 5-10 H /HPF Urine Squamous Epithelial Cells 2-5 /HPF Urine Crystals NONE /LPF Urine Bacteria FEW H /HPF Urine Casts NONE /LPF Urine Mucus NEGATIVE /LPF Urine Culture Indicated YES Urine Opiates Screen NEGATIVE NEGATIVE Urine Oxycodone Screen NEGATIVE NEGATIVE Urine Methadone Screen NEGATIVE NEGATIVE Urine Propoxyphene Screen NEGATIVE NEGATIVE Urine Barbiturates Screen NEGATIVE NEGATIVE Ur Tricyclic Antidepressants Screen NEGATIVE NEGATIVE Urine Phencyclidine Screen NEGATIVE NEGATIVE Urine Amphetamines Screen NEGATIVE NEGATIVE Urine Methamphetamines Screen NEGATIVE NEGATIVE Urine Benzodiazepines Screen NEGATIVE NEGATIVE Urine Cocaine Screen NEGATIVE NEGATIVE Urine Cannabinoids Screen POSITIVE H NEGATIVE My Orders Orders - JUAN DAVID,JAIME J Ua Culture If Indicated (10/22/19 15:23) Ondansetron Injection (Zofran Injectio (10/22/19 16:15) Lidocaine 2% Viscous 15 Ml (Xylocaine Vi (10/22/19 16:15) Antacid Suspension (Mylanta Suspension (10/22/19 16:15) Famotidine Injection (Pepcid Injection) (10/22/19 16:04) Drug Screen Stat (Urine) (10/22/19 16:14) Blood Culture (10/22/19 16:15) Body Fluid Culture (10/22/19 16:17) Body Fluid Cell Count (10/22/19 16:17) Ed Iv/Invasive Line Start (10/22/19 16:32) Lactated Ringers (Lr 1000 Ml Iv Solution (10/22/19 16:32) Fentanyl Injection (Sublimaze Injection (10/22/19 17:30) Urine Culture (10/22/19 17:27) Medications Given in ED Current Medications Medications Dose Ordered Sig/Norma Route Start Time Stop Time Status Last Admin Dose Admin Al Hydrox/Mg Hydrox/Simethicone 30 ml ONCE ONCE PO 10/22/19 16:15 10/22/19 16:16 DC 10/22/19 16:23 30 ML Famotidine 20 mg ONCE ONCE IVP 10/22/19 15:00 10/22/19 15:01 DC 10/22/19 15:45 20 MG Fentanyl Citrate 50 mcg ONCE ONCE IVP 10/22/19 17:30 10/22/19 17:31 DC 10/22/19 17:41 50 MCG Lactated Ringer's 1,000 ml @ 0 mls/hr Q0M ONCE IV 10/22/19 16:32 10/22/19 16:33 DC 10/22/19 16:52 999 MLS/HR Lidocaine HCl 15 ml ONCE ONCE PO 10/22/19 16:15 10/22/19 16:16 DC 10/22/19 16:23 15 ML Ondansetron HCl 8 mg ONCE ONCE IVP 10/22/19 16:15 10/22/19 16:16 DC 10/22/19 16:23 8 MG Pantoprazole 40 mg ONCE ONCE IV 10/22/19 15:00 10/22/19 15:01 DC 10/22/19 15:45 40 MG Vital Signs/I&O 10/22/19 14:46 Temp 36.0 Pulse 122 Resp 20 B/P (MAP) 124/89 (101) Pulse Ox 98 Blood Pressure Mean: 101 Progress Progress Note : Time: 16:12 Progress Note We'll obtain some labs to include a CRP looking for signs of recurrence of bacterial peritonitis. She's mildly tender in her abdomen but this is also chronic for her. We can do some testing on the ascitic fluid to be drained today. Zofran and a GI cocktail for her upper GI symptoms. Topical antibiotics for her right ear canal otitis externa. Departure Impression Primary Impression: UTI (urinary tract infection) Qualified Codes: N30.00 - Acute cystitis without hematuria Additional Impressions: Otitis externa of right ear Qualified Codes: H60.391 - Other infective otitis externa, right ear Ascites of liver Disposition: 01 HOME, SELF-CARE Condition: Stable Departure-Patient Inst. Decision time for Depature: 18:40 Referrals: [facility]/ (PCP) Primary Care Physician FRANCHESKA SCOTT (Family) Primary Care Physician Patient Instructions: Outer Ear Infection, Fluid in the Belly (Ascites) (DC), Urinary Tract Infection, Adult (DC) Add. Discharge Instructions: Were going to treat both of your ear and urinary tract infections with Omnicef one capsule twice a day or the next 10 days. If you're not already taking probiotics take one to 2 capsules twice a day, [id number]. Follow-up with primary care if you have any concerns. All discharge instructions reviewed with patient and/or family. Voiced understanding. Scripts Cefdinir (Cefdinir) 300 Mg Capsule 300 MG PO BID for 10 Days, #20 CAP 0 Refills Prov: JAIME FALL 10/22/19 JAIME FALL Oct 22, 2019 16:11
[2019-10-22] MEDS ORDERED: ANTACID SUSP 30 ML UDC (MYLANTA) PO ONE (16:15)
[2019-10-22] MEDS ORDERED: ONDANSETRON 4 MG/2 ML (SDV) Z0FRAN IVP ONE (16:15)
[2019-10-22] MEDS ORDERED: LIDOCAINE 2% VISCOUS 15 ML UDC PO ONE (16:15)
[2019-10-22 16:18] LABS: ALANINE AMINOTRANSFERASE 12 U/L (0-55); ALBUMIN 3.2 GM/DL (3.2-4.5); ALKALINE PHOSPHATASE 182 U/L (40-136); BILIRUBIN,TOTAL 0.3 MG/DL (0.1-1.0); BUN/CREATININE RATIO 11; CALCIUM 8.1 MG/DL (8.5-10.1); CARBON DIOXIDE 21 MMOL/L (21-32); CHLORIDE 105 MMOL/L (98-107); CREATININE SERUM 0.74 MG/DL (0.60-1.30); GFR ESTIMATED > 60; GLUCOSE 73 MG/DL (70-105); POTASSIUM 3.6 MMOL/L (3.6-5.0); SODIUM 137 MMOL/L (135-145); TOTAL PROTEIN 7.2 GM/DL (6.4-8.2)
[2019-10-22] MEDS ORDERED: LACTATED RINGERS 1,000 ML IV ONE (16:32)
[2019-10-22] MEDS ORDERED: fentaNYL INJECTION 100 MCG/2 ML AMP IVP ONE (17:30)
[2019-10-22 17:36] LABS: BILIRUBIN,URINE NEGATIVE (NEGATIVE); CLARITY,URINE CLEAR; COLOR,URINE YELLOW; GLUCOSE, URINE (UA) NEGATIVE (NEGATIVE); KETONES,URINE NEGATIVE (NEGATIVE); LEUKOCYTE ESTERASE ,URINE TRACE (NEGATIVE); NITRITE,URINE POSITIVE (NEGATIVE); PROTEIN,URINE NEGATIVE (NEGATIVE)
[2019-10-22 17:43] LABS: BACTERIA,URINE FEW /HPF
[2019-10-22 17:47] LABS: AMPHETAMINE SCREEN, URINE NEGATIVE (NEGATIVE); BARBITURATE SCREEN URINE NEGATIVE (NEGATIVE); BENZODIAZEPINES SCREEN URINE NEGATIVE (NEGATIVE); CANNABINOID SCREEN, URINE POSITIVE (NEGATIVE); COCAINE SCREEN URINE NEGATIVE (NEGATIVE); METHADONE STAT NEGATIVE (NEGATIVE); METHAMPHETAMINE SCREEN URINE S NEGATIVE (NEGATIVE); OPIATE SCREEN URINE NEGATIVE (NEGATIVE); OXYCODONE STAT NEGATIVE (NEGATIVE); PROPOXYPHENE STAT NEGATIVE (NEGATIVE); TRICYCLIC ANTIDEPRESSANTS SCRE NEGATIVE (NEGATIVE)
[2019-10-22 18:08] LABS: BODY FLUID APPEARENCE SLT CLDY; BODY FLUID COLOR PALE YELLOW; BODY FLUID RBC COUNT 400 /uL; BODY FLUID SOURCE PERITON; BODY FLUID WBC TOTAL COUNT 130 /uL
[2019-10-22 18:36] LABS: BF OTHER CELLS 22 %; LYMPHOCYTES,BODY FLUID 30 %
[2019-10-22] MEDS ORDERED: CEFD300C3 PO (18:53)
[2019-10-22] MEDS ORDERED: cefTRIAXone FOR IV USE 1,000 MG in WATER (STERILE) FOR INJECTION 10 ML IV ONE (19:00)
[2019-10-22 19:37] VITALS: BP 133/79
== END 2019-10-22 19:37 | disposition home or self-care (01) ==
LOC: EDUNIT# 14:44 → ER 14:45
DX: N39.0 Urinary tract infection, site not specified (principal); H60.91 Unspecified otitis externa, right ear; R18.8 Other ascites; J43.9 Emphysema, unspecified; I10 Essential (primary) hypertension; I48.91 Unspecified atrial fibrillation; G40.909 Epilepsy, unspecified, not intractable, without status epilepticus; K21.9 Gastro-esophageal reflux disease without esophagitis; K58.9 Irritable bowel syndrome, unspecified; M79.7 Fibromyalgia; F90.9 Attention-deficit hyperactivity disorder, unspecified type; F41.9 Anxiety disorder, unspecified; F43.10 Post-traumatic stress disorder, unspecified; F31.9 Bipolar disorder, unspecified; F60.9 Personality disorder, unspecified; F17.210 Nicotine dependence, cigarettes, uncomplicated; Z90.49 Acquired absence of other specified parts of digestive tract; Z90.710 Acquired absence of both cervix and uterus; Z98.51 Tubal ligation status; Z88.0 Allergy status to penicillin; Z88.2 Allergy status to sulfonamides; Z88.8 Allergy status to other drugs, medicaments and biological substances; Z88.1 Allergy status to other antibiotic agents; Z79.01 Long term (current) use of anticoagulants; Z80.49 Family history of malignant neoplasm of other genital organs
CPT/HCPCS: 36415; 80053; 80306; 81000; 85025; 85610; 85730; 86141; 87040; 87070; 87088; 87205; 89051; 96361; 96374; 96375; 96376

== ENCOUNTER 2019-10-31 17:53 | Emergency (ER) | payer MEDICAID ==
[~2019-10-31] VITALS: Ht 160 cm; Wt 56.7 kg
[~2019-10-31 17:53] MED LIST changes: +DIGO125T3 PO; -DILT180C PO; +DILT180C85 PO; +DIPH25CA48 PO; -DIPH25CA6 PO; -DOXY100T19 PO; +DOXY100T31 PO; +OMEP40CA27 PO; -OMEP40CA36 PO
[2019-10-31 19:34] LABS: CLARITY,URINE SL CLOUDY; COLOR,URINE YELLOW; GLUCOSE, URINE (UA) NEGATIVE (NEGATIVE); KETONES,URINE NEGATIVE (NEGATIVE); LEUKOCYTE ESTERASE ,URINE NEGATIVE (NEGATIVE); NITRITE,URINE NEGATIVE (NEGATIVE); PH,URINE 6.5 (5-9); PROTEIN,URINE TRACE (NEGATIVE)
[2019-10-31 19:52] LABS: BILIRUBIN,URINE 1+ (NEGATIVE)
[2019-10-31 19:53] LABS: AMORPHOUS SEDIMENT,UR FEW AMOR URATES /LPF; BACTERIA,URINE TRACE /HPF
[2019-10-31 19:58] LABS: BENZODIAZEPINES SCREEN URINE NEGATIVE (NEGATIVE); COCAINE SCREEN URINE NEGATIVE (NEGATIVE)
[2019-10-31 19:59] LABS: AMPHETAMINE SCREEN, URINE POSITIVE (NEGATIVE); BARBITURATE SCREEN URINE NEGATIVE (NEGATIVE); CANNABINOID SCREEN, URINE POSITIVE (NEGATIVE); METHADONE STAT NEGATIVE (NEGATIVE); METHAMPHETAMINE SCREEN URINE S POSITIVE (NEGATIVE); OPIATE SCREEN URINE POSITIVE (NEGATIVE); OXYCODONE STAT POSITIVE (NEGATIVE); PROPOXYPHENE STAT NEGATIVE (NEGATIVE); TRICYCLIC ANTIDEPRESSANTS SCRE POSITIVE (NEGATIVE)
[2019-10-31] MEDS ORDERED: hydrOXYzine (VISTARIL/ATARAX) 25 MG capsule/tablet PO ONE (20:00)
--- NOTE | 2019-10-31 20:06 | ED General ---
General Chief Complaint: General Problems/Pain Stated Complaint: ITCHING ALL OVER Nursing Triage Note: HERE FOR MULTIPLE COMPLAINTS INCLUDING BUT NOT LIMITED TOO - ITCHING, SOA, NEAR SYNCOPE, HEART RACING, FILLING UP WITH FLUID, ET ANXIETY. Nursing Sepsis Screen: No Definite Risk History of Present Illness Date Seen by Provider: Oct 31, 2019 Time Seen by Provider: 18:45 Initial Comments 38-year-old female familiar to this emergency department presents for pruritis and anxiety. She has a PICC line in her right upper extremity and a drain in her abdomen. She is following up with her primary care provider and Dr. Rose for treatment of her ascites. Timing/Duration: Intermittent Severity: Mild Associated Systoms: Denies Symptoms Allergies and Home Medications Allergies Coded Allergies: asenapine (Unverified Allergy, Severe, TOUNGE SWELLING, 03/31/19) Penicillins (Unverified Allergy, Unknown, 03/31/19) Sulfa (Sulfonamide Antibiotics) (Unverified Allergy, Unknown, 03/31/19) erythromycin base (Verified Allergy, Unknown, 03/31/19) peas (Verified Allergy, Unknown, 03/31/19) prochlorperazine (Verified Allergy, Unknown, 03/31/19) promethazine (Verified Allergy, Unknown, 01/31/06) promethazine HCl (Unverified Allergy, Unknown, 06/07/14) propoxyphene (Verified Allergy, Unknown, 11/26/05) Home Medications Acetaminophen 500 Mg Tablet, 1,000 MG PO Q4H PRN for PAIN-MILD (1-4), (Reported) Albuterol Sulfate 6.7 Gm Hfa.aer.ad, 2 PUFF INH Q4H PRN for SHORTNESS OF BREATH, (Reported) Buspirone HCl 10 Mg Tablet, 10 MG PO BID, (Reported) Calcium Carbonate 300 Mg Tab.chew, 300 MG PO QID PRN for INDIGESTION, (Reported) Cefdinir 300 Mg Capsule, 300 MG PO BID Prescribed by: JAIME FALL on 10/22/191852 Cyclobenzaprine HCl 10 Mg Tablet, 10 MG PO BID, (Reported) LAST FILLED #60 08-11-19 Digoxin 125 Mcg Tablet, 125 MCG PO DAILY, (Reported) Diltiazem HCl 180 Mg Cap.er.24h, 180 MG PO DAILY, (Reported) Escitalopram Oxalate 20 Mg Tablet, 20 MG PO DAILY, (Reported) LAST FILLED #30 07-28-19 Hydrocodone Bit/Acetaminophen 1 Tab Tab, 1 EACH PO Q6H PRN for PAIN-MODERATE Prescribed by: KEAGAN LUNDBERG on 10/16/19 1713 Hydrocodone/Acetaminophen 1 Each Tablet, 1-2 TAB PO Q4-6HR PRN for PAIN-MODERATE (5-7), (Reported) Hydrocodone/Acetaminophen 1 Each Tablet, 1 TAB PO Q4-6HR Prescribed by: COLIN QUEVEDO on 10/11/19 0059 Hydroxyzine Pamoate 25 Mg Capsule, 25 MG PO BID, (Reported) Levetiracetam 1,000 Mg Tablet, 1,000 MG PO BID, (Reported) LAST FILLED #60 08-11-19 Metoprolol Tartrate 25 Mg Tablet, 25 MG PO BID, (Reported) Mirtazapine 15 Mg Tablet, 15 MG PO HS, (Reported) Omeprazole 40 Mg Capsule.dr, 40 MG PO HS, (Reported) LAST FILLED 06-12-19 #30 Polyethylene Glycol 3350 17 Gm Powd.pack, 17 GM PO BID PRN for CONSTIPATION-2ND LINE, (Reported) Risperidone 1 Mg Tablet, 1 MG PO BID, (Reported) LAST FILLED #60 08-11-19 Rivaroxaban 20 Mg Tablet, 20 MG PO DAILY, (Reported) LAST FILLED #30 08-11-19 Spironolactone 25 Mg Tablet, 25 MG PO BID, (Reported) Sucralfate 1 Gm Tablet, 1 GM PO QID, (Reported) Tramadol HCl 50 Mg Tablet, 50 MG PO 4-6 Prescribed by: SIVAKUMAR BAUER on 10/06/19 1708 Vancomycin HCl/D5w 1.5 Gm/250 Ml Plast..bag, 1.5 GM IV DAILY Prescribed by: JAGDISH SCRUGGS on 10/06/19 1204 Patient Home Medication List Home Medication List Reviewed: Yes Review of Systems Review of Systems Constitutional: no symptoms reported, see HPI Skin: see HPI, pruritus Psychiatric/Neurological: See HPI, Anxiety All Other Systems Reviewed Negative Unless Noted: Yes Past Lfgpmkh-Mrcqnx-Gmcdkb Hx Past Med/Social Hx: Reviewed Nursing Past Med/Soc Hx Patient Social History Alcohol Use: Occasionally Uses Number of Drinks Today: CC Alcohol Beverage of Choice: Beer, Cheap Liquor Recreational Drug Use: Yes (CRYSTAL, WEED, PILLS ET CLEAN FOR 2 MONTHS) Drug of Choice: THC Type Used: Cigarettes 2nd Hand Smoke Exposure: Yes Recent Foreign Travel: No Contact w/Someone Who Travel: No Recent Infectious Disease Expo: No Recent Hopitalizations: No Immunizations Up To Date Tetanus Booster (TDap): Unknown PED Vaccines UTD: Yes Date of Pneumonia Vaccine: Oct 22, 2017 Date of Influenza Vaccine: Sep 06, 2019 Seasonal Allergies Seasonal Allergies: No Past Medical History Surgeries: Yes Abdominal, Appendectomy, Cardiac, Section, Gallbladder, Hysterectomy, Oophorectomy, Orthopedic, Pacemaker, Tubal Ligation, Valve Replacement Respiratory: Yes Asthma, Chronic Bronchitis, COPD, Emphysema Currently Using CPAP: No Currently Using BIPAP: No Cardiac: Yes Atrial Fibrillation, Chronic Edema/Swelling, Congenital Heart Disease, Heart Murmur, Hypertension, Irregular Heartbeat, Syncope, Valvular Heart Disease Neurological: Yes Seizure Disorder 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: Yes 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: 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 Sexually Transmitted Disease: No HIV/AIDS: No Genitourinary: Yes Neurogenic Bladder Gastrointestinal: Yes Gastroesophageal Reflux, Gastrointestinal Bleed, Hiatal Hernia, Ulcer, Irritable Bowel Musculoskeletal: Yes Degenerate Disk Disease, Fibromyalgia, Back Injury, Chronic Back Pain, Fractures Endocrine: No HEENT: Yes Loss of Vision: Bilateral Hearing Impairment: Denies Cancer: No Psychosocial: Yes ADD/ADHD, Anxiety, PTSD, Suicide Attempts, Bipolar, Personality Disorder, Depression Integumentary: No Blood Disorders: No Adverse Reaction/Blood Tranf: No Family Medical History Alcoholism 19 MOTHER Depression Depression Diabetes mellitus 19 MOTHER Drug abuse 19 MOTHER FH: cancer of genital organ 19 MOTHER No Pertinent Family Hx, Diabetes, Psychiatric Problems, Other Conditions/Hx Physical Exam Vital Signs Vital Signs - First Documented 10/31/19 18:04 Temp 36.5 Pulse 80 Resp 18 B/P (MAP) 109/70 (83) Pulse Ox 97 O2 Delivery Room Air Capillary Refill : Less Than 3 Seconds Height, Weight, BMI Height: 5'3.00" Weight: 130lbs. 0.0oz. [id number]; 22.00 BMI Method:Stated General Appearance: No Apparent Distress, WD/WN, Other (patient has fasciculations and is obviously tweaking, unable to sit still. Thought processes are tracking and she answers all questions appropriately. ) Eyes: Bilateral Eye Normal Inspection, Bilateral Eye PERRL, Bilateral Eye EOMI Neck: Full Range of Motion, Normal Inspection, Non Tender, Supple Respiratory: Chest Non Tender, Lungs Clear, Normal Breath Sounds Cardiovascular: Regular Rate, Rhythm, No Edema, No Murmur, Normal Peripheral Pulses Gastrointestinal: Normal Bowel Sounds, Non Tender, Soft, Other (drain in place, dressing intact with no signs of erythema, warmth or drainage.) Extremity: Normal Capillary Refill, Normal Inspection, Normal Range of Motion, No Calf Tenderness Neurologic/Psychiatric: Alert, Oriented x3, No Motor/Sensory Deficits Skin: Normal Color, Warm/Dry; No Ecchymosis, No Erythema, No Rash Progress/Results/Core Measures Suspected Sepsis Recent Fever Within 48 Hours: No Infection Criteria Present: Suspected New Infection New/Unexplained Altered Menta: No Sepsis Screen: No Definite Risk SIRS Temperature: Pulse: 80 Respiratory Rate: 18 Blood Pressure 109 /70 Mean: 83 Results/Orders Lab Results Laboratory Tests Test 10/31/19 19:20 Range/Units Urine Color YELLOW Urine Clarity SL CLOUDY Urine pH 6.5 5-9 Urine Specific Lee 1.025 H 1.016-1.022 Urine Protein TRACE NEGATIVE Urine Glucose (UA) NEGATIVE NEGATIVE Urine Ketones NEGATIVE NEGATIVE Urine Nitrite NEGATIVE NEGATIVE Urine Bilirubin 1+ H NEGATIVE Urine Urobilinogen 1.0 < = 1.0 MG/DL Urine Leukocyte Esterase NEGATIVE NEGATIVE Urine RBC (Auto) NEGATIVE NEGATIVE Urine RBC NONE /HPF Urine WBC 2-5 /HPF Urine Squamous Epithelial Cells 2-5 /HPF Urine Crystals PRESENT H /LPF Urine Amorphous Sediment FEW ESTELITA URATES H /LPF Urine Bacteria TRACE /HPF Urine Casts NONE /LPF Urine Mucus NEGATIVE /LPF Urine Culture Indicated NO Urine Opiates Screen POSITIVE H NEGATIVE Urine Oxycodone Screen POSITIVE H NEGATIVE Urine Methadone Screen NEGATIVE NEGATIVE Urine Propoxyphene Screen NEGATIVE NEGATIVE Urine Barbiturates Screen NEGATIVE NEGATIVE Ur Tricyclic Antidepressants Screen POSITIVE H NEGATIVE Urine Phencyclidine Screen NEGATIVE NEGATIVE Urine Amphetamines Screen POSITIVE H NEGATIVE Urine Methamphetamines Screen POSITIVE H NEGATIVE Urine Benzodiazepines Screen NEGATIVE NEGATIVE Urine Cocaine Screen NEGATIVE NEGATIVE Urine Cannabinoids Screen POSITIVE H NEGATIVE My Orders Orders - NICK GARCIA Drug Screen Stat (Urine) (10/31/19 18:46) Ua Culture If Indicated (10/31/19 18:46) Hydroxyzine Cap/Tab (Vistaril) (10/31/19 20:00) Medications Given in ED Current Medications Medications Dose Ordered Sig/Norma Route Start Time Stop Time Status Last Admin Dose Admin Hydroxyzine Pamoate 25 mg ONCE ONCE PO 10/31/19 20:00 10/31/19 20:01 DC 10/31/19 19:58 25 MG Vital Signs/I&O 10/31/19 18:04 Temp 36.5 Pulse 80 Resp 18 B/P (MAP) 109/70 (83) Pulse Ox 97 O2 Delivery Room Air Capillary Refill : Less Than 3 Seconds Blood Pressure Mean: 83 Progress Note : Time: 18:45 Progress Note Discussed patient's symptoms with her she adamantly denies using any methamp hetamines, she does report using marijuana daily. We'll give him Vistaril 25 mg for anxiety and pruritus. 2000urine drug screen results reviewed with the patient she continues to deny using methamphetamines, however she does report that she is getting her marijuana from a new friend. She states "he must be putting meth in my weed" Discharge instructions reviewed with the patient and her friend from [facility]. Stressed the importance that she not use methamphetamines or marijuana. All questions answered. Departure Impression Primary Impression: Drug-induced pruritus Additional Impressions: Substance abuse Liver failure Qualified Codes: K72.10 - Chronic hepatic failure without coma Disposition: HOME, SELF-CARE Condition: Improved Departure-Patient Inst. Decision time for Depature: 20:00 [facility]errals: [facility] ([facility] Primary Care Physician FRANCHESKA HEADLEY (Family) Primary Care Physician Patient Instructions: Itchy Skin, Polysubstance Abuse (DC) Add. Discharge Instructions: Take your Vistaril 1-2 tablets every 8 hours as needed for itching. Keep your follow-up appointments for next week with your primary care provider in the general surgeon. Discontinue use of methamphetamine and marijuana, these are both going to be hard on your liver and sure generalized well being. Increase her water intake, 16 ounces every 4 hours while awake. Return to the emergency department for new, urgent health care needs. All discharge instructions reviewed with patient and/or family. Voiced understanding. Scripts Hydroxyzine Pamoate (Vistaril) 25 Mg Capsule 25 MG PO TID PRN for ITCHING, #40 CAP 0 Refills Prov: NICK GARCIA 10/31/19 NICK GARCIA Oct 31, 2019 20:06
[2019-10-31 20:21] VITALS: BP 109/70
[2019-10-31] MEDS ORDERED: HYDR25CA PO (20:21)
== END 2019-10-31 20:24 | disposition home or self-care (01) ==
LOC: EDUNIT# 17:53 → ER 17:54
DX: L29.8 Other pruritus (principal); K72.90 Hepatic failure, unspecified without coma; F12.10 Cannabis abuse, uncomplicated; F41.9 Anxiety disorder, unspecified; I10 Essential (primary) hypertension; J43.9 Emphysema, unspecified; I48.91 Unspecified atrial fibrillation; G40.909 Epilepsy, unspecified, not intractable, without status epilepticus; K21.9 Gastro-esophageal reflux disease without esophagitis; K58.9 Irritable bowel syndrome, unspecified; M79.7 Fibromyalgia; F90.9 Attention-deficit hyperactivity disorder, unspecified type; F43.10 Post-traumatic stress disorder, unspecified; F31.9 Bipolar disorder, unspecified; F60.9 Personality disorder, unspecified; Z88.0 Allergy status to penicillin; Z88.2 Allergy status to sulfonamides; Z88.1 Allergy status to other antibiotic agents; Z88.8 Allergy status to other drugs, medicaments and biological substances; Z79.01 Long term (current) use of anticoagulants; Z90.49 Acquired absence of other specified parts of digestive tract; Z90.710 Acquired absence of both cervix and uterus; Z98.51 Tubal ligation status; Z95.0 Presence of cardiac pacemaker; Z80.49 Family history of malignant neoplasm of other genital organs
CPT/HCPCS: 80306; 81000; 99283

== ENCOUNTER 2019-11-12 12:05 | Outpatient (RCR) | payer MEDICAID ==
[2019-10-10 13:25] VITALS: BP 98/66
[2019-10-10] MEDS: VANCOMYCIN 1500 MG/NS 500 ML IVPB IV SCH ×2 (15:41)
--- NOTE | 2019-10-10 15:42 | Diagnostic Imaging Report ---
INDICATION: PICC line placement. TIME OF EXAM: 03:30 p.m. Correlation is made with prior study of 10/06/2019. FINDINGS: Right upper extremity PICC line has been placed. Tip is somewhat obscured by patient's spinal hardware but likely overlies the SVC. The cardiac pacer is in place. Extensive spinal instrumentation is noted. Heart is enlarged. Lungs are clear. There is no pneumothorax. IMPRESSION: PICC line placement, as described. Dictated by: Dictated on workstation # [id number]
[2019-10-10 17:47] VITALS: BP 98/66
[2019-10-11] MEDS: VANCOMYCIN 1500 MG/NS 500 ML IVPB IV SCH ×2 (13:15)
[2019-10-11 15:06] VITALS: BP 95/55
[2019-10-12 12:59] VITALS: BP 104/51
[2019-10-12] MEDS: VANCOMYCIN 1500 MG/NS 500 ML IVPB IV SCH ×2 (13:14)
[2019-10-13] MEDS: VANCOMYCIN 1500 MG/NS 500 ML IVPB IV SCH ×2 (13:02)
--- NOTE | 2019-10-13 14:30 | NUR ---
PTD VANCOMYCIN LABS VANCOMYCIN LVL 6.8 PLAN: INCREASE DOSE TO VANCOMYCIN 2,000MG IV [id number]
[2019-10-13 14:51] VITALS: BP 93/74
[2019-10-14] MEDS: VANCOMYCIN 2000 MG/NS 500 ML IVPB IV SCH ×2 (13:28)
[2019-10-14 13:30] VITALS: BP 120/68
[2019-10-15] MEDS: VANCOMYCIN 2000 MG/NS 500 ML IVPB IV SCH ×2 (13:18)
[2019-10-15 13:24] VITALS: BP 130/87
[2019-10-17] MEDS: VANCOMYCIN 2000 MG/NS 500 ML IVPB IV SCH ×2 (12:18)
[2019-10-17 14:35] VITALS: BP 102/53
[2019-10-18] MEDS: VANCOMYCIN INJECTION 2,000 MG in NS IV 500 ML 500 ML IV SCH (13:18)
--- NOTE | 2019-10-18 13:40 | NUR ---
Patient receiving outpatient ATB.
[2019-10-18 14:00] VITALS: BP 94/54
--- NOTE | 2019-10-18 15:25 | NUR ---
ATB finished infusing, PICC line flushed. Patient left ambulatory at this time.
[2019-10-19 12:25] VITALS: BP 106/56
[2019-10-19] MEDS: VANCOMYCIN INJECTION 2,000 MG in NS IV 500 ML 500 ML IV SCH (12:55)
[2019-10-19 15:05] VITALS: BP 106/56
[~2019-11-12] VITALS: Ht 162.6 cm; Wt 60.2 kg
[~2019-11-12 12:05] MED LIST changes: +HYDR25CA PO; +TROUGH ORDER-PHARMACY XX ONE
== END 2019-11-12 12:16 | disposition home or self-care (01) ==
LOC: SDC 12:05
PROVIDERS: ATTEND Internal Medicine
DX: Z45.2 Encounter for adjustment and management of vascular access device (principal)
CPT/HCPCS: 36415; 36569; 71045; 76937; 80202; 96365; 96366

== ENCOUNTER 2019-11-19 00:28 | Emergency (ER) | payer MEDICAID ==
[~2019-11-19] VITALS: Ht 160 cm; Wt 56.7 kg
[~2019-11-19 00:28] MED LIST changes: -TROUGH ORDER-PHARMACY XX ONE
[2019-11-19] MEDS ORDERED: fentaNYL INJECTION 100 MCG/2 ML AMP IVP ONE ×2 (01:00→04:00)
[2019-11-19 01:07] LABS: BILIRUBIN,URINE NEGATIVE (NEGATIVE); CLARITY,URINE CLEAR; COLOR,URINE YELLOW; GLUCOSE, URINE (UA) NEGATIVE (NEGATIVE); KETONES,URINE NEGATIVE (NEGATIVE); LEUKOCYTE ESTERASE ,URINE NEGATIVE (NEGATIVE); NITRITE,URINE NEGATIVE (NEGATIVE); PROTEIN,URINE NEGATIVE (NEGATIVE)
[2019-11-19 01:24] LABS: AMPHETAMINE SCREEN, URINE POSITIVE (NEGATIVE); BARBITURATE SCREEN URINE NEGATIVE (NEGATIVE); BENZODIAZEPINES SCREEN URINE POSITIVE (NEGATIVE); CANNABINOID SCREEN, URINE POSITIVE (NEGATIVE); COCAINE SCREEN URINE NEGATIVE (NEGATIVE); METHADONE STAT NEGATIVE (NEGATIVE); METHAMPHETAMINE SCREEN URINE S POSITIVE (NEGATIVE); OPIATE SCREEN URINE POSITIVE (NEGATIVE); OXYCODONE STAT NEGATIVE (NEGATIVE); PROPOXYPHENE STAT NEGATIVE (NEGATIVE); TRICYCLIC ANTIDEPRESSANTS SCRE POSITIVE (NEGATIVE)
[2019-11-19 01:29] LABS: BACTERIA,URINE NEGATIVE /HPF
[2019-11-19 01:30] LABS: BASOPHILS # (AUTO) 0.1 10^3/uL (0.0-0.1); BASOPHILS % (AUTO) 0 % (0-10); EOSINOPHILS # (AUTO) 0.1 10^3/uL (0.0-0.3); EOSINOPHILS % (AUTO) 1 % (0-10); HEMATOCRIT 25 % (35-52); LYMPHOCYTES # (AUTO) 1.4 X 10^3 (1.0-4.0); LYMPHOCYTES % (AUTO) 13 % (12-44); MEAN CORPUSCULAR HEMOGLOBIN 21 PG (25-34); MEAN CORPUSCULAR HGB CONC 32 G/DL (32-36); MEAN CORPUSCULAR VOLUME 64 FL (80-99); MEAN PLATELET VOLUME 9.2 FL (7.4-10.4); MONOCYTES # (AUTO) 1.5 X 10^3 (0.0-1.0); MONOCYTES % (AUTO) 14 % (0-12); NEUTROPHILS # (AUTO) 8.2 X 10^3 (1.8-7.8); NEUTROPHILS % (AUTO) 73 % (42-75); PLATELET COUNT 806 10^3/uL (130-400); RED CELL DISTRIBUTION WIDTH 19.5 % (10.0-14.5); WHITE BLOOD COUNT 11.3 10^3/uL (4.3-11.0)
[2019-11-19 01:48] LABS: ALANINE AMINOTRANSFERASE 17 U/L (0-55); ALBUMIN 3.1 GM/DL (3.2-4.5); ALKALINE PHOSPHATASE 220 U/L (40-136); BILIRUBIN,TOTAL 0.7 MG/DL (0.1-1.0); BUN/CREATININE RATIO 12; CALCIUM 8.3 MG/DL (8.5-10.1); CARBON DIOXIDE 21 MMOL/L (21-32); CHLORIDE 101 MMOL/L (98-107); CREATININE SERUM 0.67 MG/DL (0.60-1.30); GFR ESTIMATED > 60; GLUCOSE 105 MG/DL (70-105); MAGNESIUM 1.8 MG/DL (1.6-2.4); POTASSIUM 3.6 MMOL/L (3.6-5.0); SODIUM 132 MMOL/L (135-145); TOTAL PROTEIN 7.3 GM/DL (6.4-8.2)
[2019-11-19] MEDS ORDERED: NS IV 500 ML 500 ML IV ONE (01:53)
[2019-11-19] MEDS ORDERED: methylPREDNISolone 125 MG (Solu-MEDROL) VIAL IVP ONE (02:00)
[2019-11-19] MEDS ORDERED: diphenhydrAMINE 50 MG/ML INJ (BENADRYL) IVP ONE (02:00)
[2019-11-19] MEDS ORDERED: METOCLOPRAMIDE INJ 10 MG/2 ML (REGLAN) IVP ONE (02:00)
--- NOTE | 2019-11-19 04:31 | ED Headache ---
General Chief Complaint: Head/Cervical Problems Stated Complaint: MIGRAINE Nursing Triage Note: C/O MIGRAINE STARTED AT 1700 YESTERDAY EVENING, TOOK HYDROCODONE AT 1830, TRIED SMOKING WEED, AND TOOK ZOFRAN AT 2300 AND 0000. DENIES NAUSEA AT THIS TIME. Nursing Sepsis Screen: No Definite Risk Source: patient Exam Limitations: no limitations History of Present Illness Date Seen by Provider: Nov 19, 2019 Time Seen by Provider: 00:44 Initial Comments This 39-year-old woman with numerous medical problems presents to the emergency room with acute headache that started around 17:00. She has associated changes in vision and nausea. She does have history of migraines but does not recall a migraine this intense in the past. She took a hydrocodone at home without significant relief. She also tried smoking marijuana which was not effective. She took some oral Zofran and nausea has improved. Allergies and Home Medications Allergies Coded Allergies: asenapine (Unverified Allergy, Severe, TOUNGE SWELLING, 11/19/19) Penicillins (Unverified Allergy, Unknown, 11/19/19) Sulfa (Sulfonamide Antibiotics) (Unverified Allergy, Unknown, 11/19/19) erythromycin base (Verified Allergy, Unknown, 11/19/19) peas (Verified Allergy, Unknown, 11/19/19) prochlorperazine (Verified Allergy, Unknown, 11/19/19) promethazine (Verified Allergy, Unknown, 11/19/19) promethazine HCl (Unverified Allergy, Unknown, 11/19/19) propoxyphene (Verified Allergy, Unknown, 11/19/19) Home Medications Acetaminophen 500 Mg Tablet, 1,000 MG PO Q4H PRN for PAIN-MILD (1-4), (Reported) Albuterol Sulfate 6.7 Gm Hfa.aer.ad, 2 PUFF INH Q4H PRN for SHORTNESS OF BREATH, (Reported) Buspirone HCl 10 Mg Tablet, 10 MG PO BID, (Reported) Calcium Carbonate 300 Mg Tab.chew, 300 MG PO QID PRN for INDIGESTION, (Reported) Cefdinir 300 Mg Capsule, 300 MG PO BID Prescribed by: JAIME FALL on 10/22/19 391 Cyclobenzaprine HCl 10 Mg Tablet, 10 MG PO BID, (Reported) LAST FILLED #60 08-11-19 Digoxin 125 Mcg Tablet, 125 MCG PO DAILY, (Reported) Diltiazem HCl 180 Mg Cap.er.24h, 180 MG PO DAILY, (Reported) Escitalopram Oxalate 20 Mg Tablet, 20 MG PO DAILY, (Reported) LAST FILLED #30 07-28-19 Hydrocodone Bit/Acetaminophen 1 Tab Tab, 1 EACH PO Q6H PRN for PAIN-MODERATE Prescribed by: KEAGAN LUNDBERG on 10/16/19 171 Hydrocodone/Acetaminophen 1 Each Tablet, 1-2 TAB PO Q4-6HR PRN for PAIN-MODERATE (5-7), (Reported) Hydrocodone/Acetaminophen 1 Each Tablet, 1 TAB PO Q4-6HR Prescribed by: COLIN QUEVEDO on 10/11/19 005 Hydroxyzine Pamoate 25 Mg Capsule, 25 MG PO BID, (Reported) Hydroxyzine Pamoate 25 Mg Capsule, 25 MG PO TID PRN for ITCHING Prescribed by: NICK GARCIA on 10/31/192020 Levetiracetam 1,000 Mg Tablet, 1,000 MG PO BID, (Reported) LAST FILLED #60 08-11-19 Metoprolol Tartrate 25 Mg Tablet, 25 MG PO BID, (Reported) Mirtazapine 15 Mg Tablet, 15 MG PO HS, (Reported) Omeprazole 40 Mg Capsule.dr, 40 MG PO HS, (Reported) LAST FILLED 06-12-19 #30 Polyethylene Glycol 3350 17 Gm Powd.pack, 17 GM PO BID PRN for CONSTIPATION-2ND LINE, (Reported) Risperidone 1 Mg Tablet, 1 MG PO BID, (Reported) LAST FILLED #60 08-11-19 Rivaroxaban 20 Mg Tablet, 20 MG PO DAILY, (Reported) LAST FILLED #30 08-11-19 Spironolactone 25 Mg Tablet, 25 MG PO BID, (Reported) Sucralfate 1 Gm Tablet, 1 GM PO QID, (Reported) Tramadol HCl 50 Mg Tablet, 50 MG PO 4-6 Prescribed by: SIVAKUMAR BAUER on 10/06/19 170 Vancomycin HCl/D5w 1.5 Gm/250 Ml Plast..bag, 1.5 GM IV DAILY Prescribed by: JAGDISH SCRUGGS on 10/06/19 1204 Patient Home Medication List Home Medication List Reviewed: Yes Review of Systems Review of Systems Constitutional: no symptoms reported Eyes: See HPI Ears, Nose, Mouth, Throat: no symptoms reported Respiratory: no symptoms reported Cardiovascular: no symptoms reported Gastrointestinal: see HPI Genitourinary: no symptoms reported : No Musculoskeletal: no symptoms reported Skin: no symptoms reported Psychiatric/Neurological: See HPI Past Sayhvxj-Aycrew-Ksvczj Hx Past Med/Social Hx: Reviewed and Corrections made Patient Social History Alcohol Use: Occasionally Uses Number of Drinks Today: CC Alcohol Beverage of Choice: Beer, Cheap Liquor Recreational Drug Use: Yes (METH AND MARIJUANA, DENIES USE URINE SHOWS POSITIVE) Drug of Choice: THC, METH Type Used: Cigarettes 2nd Hand Smoke Exposure: Yes Recent Foreign Travel: No Contact w/Someone Who Travel: No Recent Infectious Disease Expo: No Recent Hopitalizations: No Physical Abuse: No Sexual Abuse: No Mistreated: No Fear: No Immunizations Up To Date Tetanus Booster (TDap): Unknown PED Vaccines UTD: Yes Date of Pneumonia Vaccine: Oct 22, 2017 Date of Influenza Vaccine: Sep 06, 2019 Seasonal Allergies Seasonal Allergies: No Past Medical History Surgeries: Yes Abdominal, Appendectomy, Cardiac, Section, Gallbladder, Hysterectomy, Oophorectomy, Orthopedic, Pacemaker, Tubal Ligation, Valve Replacement Respiratory: Yes Asthma, Chronic Bronchitis, COPD, Emphysema Currently Using CPAP: No Currently Using BIPAP: No Cardiac: Yes Atrial Fibrillation, Chronic Edema/Swelling, Congenital Heart Disease, Heart Murmur, Hypertension, Irregular Heartbeat, Syncope, Valvular Heart Disease Neurological: Yes Headaches /Migraines, Seizure Disorder 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: Yes 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: 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 Sexually Transmitted Disease: No HIV/AIDS: No Genitourinary: Yes Neurogenic Bladder Gastrointestinal: Yes Gastroesophageal Reflux, Gastrointestinal Bleed, Hiatal Hernia, Ulcer, Irritable Bowel Musculoskeletal: Yes Degenerate Disk Disease, Fibromyalgia, Back Injury, Chronic Back Pain, Fractures Endocrine: No HEENT: Yes Loss of Vision: Bilateral Hearing Impairment: Denies Cancer: No Psychosocial: Yes ADD/ADHD, Anxiety, PTSD, Suicide Attempts, Bipolar, Personality Disorder, Depression Integumentary: No Blood Disorders: No Adverse Reaction/Blood Tranf: No Family Medical History Reviewed Nursing Family Hx Alcoholism 19 MOTHER Depression Depression Diabetes mellitus 19 MOTHER Drug abuse 19 MOTHER FH: cancer of genital organ 19 MOTHER No Pertinent Family Hx, Diabetes, Psychiatric Problems, Other Conditions/Hx Physical Exam Vital Signs Vital Signs - First Documented 11/19/19 00:40 Temp 36.9 Pulse 121 Resp 18 B/P (MAP) 128/92 (104) Pulse Ox 98 O2 Delivery Room Air Capillary Refill : Less Than 3 Seconds Height, Weight, BMI Height: 5'3.00" Weight: 130lbs. 0.0oz. 58.141749tv; 22.00 BMI Method:Stated General Appearance: WD/WN, moderate distress HEENT: PERRL/EOMI, normal ENT inspection Neck: normal inspection Cardiovascular: no edema, tachycardia Respiratory: lungs clear, normal breath sounds, no respiratory distress, no accessory muscle use Gastrointestinal: normal bowel sounds, non tender, soft Extremities: normal inspection, no pedal edema Psychiatric: alert Crainal Nerves: normal hearing, normal speech, PERRL Motor/Sensory: no motor deficit, no sensory deficit Skin: normal color, warm/dry Progress/Results/Core Measures Results/Orders Lab Results Laboratory Tests Test 11/19/19 01:00 11/19/19 01:10 Range/Units Urine Color YELLOW Urine Clarity CLEAR Urine pH 6.0 5-9 Urine Specific [place] 1.020 1.016-1.022 Urine Protein NEGATIVE NEGATIVE Urine Glucose (UA) NEGATIVE NEGATIVE Urine Ketones NEGATIVE NEGATIVE Urine Nitrite NEGATIVE NEGATIVE Urine Bilirubin NEGATIVE NEGATIVE Urine Urobilinogen 1.0 < = 1.0 MG/DL Urine Leukocyte Esterase NEGATIVE NEGATIVE Urine RBC (Auto) NEGATIVE NEGATIVE Urine RBC NONE /HPF Urine WBC NONE /HPF Urine Squamous Epithelial Cells 5-10 /HPF Urine Crystals NONE /LPF Urine Bacteria NEGATIVE /HPF Urine Casts NONE /LPF Urine Mucus MODERATE H /LPF Urine Culture Indicated NO Urine Opiates Screen POSITIVE H NEGATIVE Urine Oxycodone Screen NEGATIVE NEGATIVE Urine Methadone Screen NEGATIVE NEGATIVE Urine Propoxyphene Screen NEGATIVE NEGATIVE Urine Barbiturates Screen NEGATIVE NEGATIVE Ur Tricyclic Antidepressants Screen POSITIVE H NEGATIVE Urine Phencyclidine Screen NEGATIVE NEGATIVE Urine Amphetamines Screen POSITIVE H NEGATIVE Urine Methamphetamines Screen POSITIVE H NEGATIVE Urine Benzodiazepines Screen POSITIVE H NEGATIVE Urine Cocaine Screen NEGATIVE NEGATIVE Urine Cannabinoids Screen POSITIVE H NEGATIVE White Blood Count 11.3 H 4.3-11.0 10^3/uL Red Blood Count 3.89 L 4.35-5.85 10^6/uL Hemoglobin 8.0 L 11.5-16.0 G/DL Hematocrit 25 L 35-52 % Mean Corpuscular Volume 64 L 80-99 FL Mean Corpuscular Hemoglobin 21 L 25-34 PG Mean Corpuscular Hemoglobin Concent 32 32-36 G/DL Red Cell Distribution Width 19.5 H 10.0-14.5 % Platelet Count 806 H 130-400 10^3/uL Mean Platelet Volume 9.2 7.4-10.4 FL Neutrophils (%) (Auto) 73 42-75 % Lymphocytes (%) (Auto) 13 12-44 % Monocytes (%) (Auto) 14 H 0-12 % Eosinophils (%) (Auto) 1 0-10 % Basophils (%) (Auto) 0 0-10 % Neutrophils # (Auto) 8.2 H 1.8-7.8 X 10^3 Lymphocytes # (Auto) 1.4 1.0-4.0 X 10^3 Monocytes # (Auto) 1.5 H 0.0-1.0 X 10^3 Eosinophils # (Auto) 0.1 0.0-0.3 10^3/uL Basophils # (Auto) 0.1 0.0-0.1 10^3/uL Sodium Level 132 L 135-145 MMOL/L Potassium Level 3.6 3.6-5.0 MMOL/L Chloride Level 101 98-107 MMOL/L Carbon Dioxide Level 21 21-32 MMOL/L Anion Gap 10 5-14 MMOL/L Blood Urea Nitrogen 8 7-18 MG/DL Creatinine 0.67 0.60-1.30 MG/DL Estimat Glomerular Filtration Rate > 60 BUN/Creatinine Ratio 12 Glucose Level 105 70-105 MG/DL Calcium Level 8.3 L 8.5-10.1 MG/DL Corrected Calcium 9.0 8.5-10.1 MG/DL Magnesium Level 1.8 1.6-2.4 MG/DL Total Bilirubin 0.7 0.1-1.0 MG/DL Aspartate Amino Transf (AST/SGOT) 19 5-34 U/L Alanine Aminotransferase (ALT/SGPT) 17 0-55 U/L Alkaline Phosphatase 220 H 40-136 U/L Total Protein 7.3 6.4-8.2 GM/DL Albumin 3.1 L 3.2-4.5 GM/DL Micro Results Microbiology 11/19/19 Influenza Types A,B Antigen (SUSHILA) - Final, Complete My Orders Orders - COLIN BRANNON MD Cbc With Automated Diff (11/19/19 00:49) Comprehensive Metabolic Panel (11/19/19 00:49) Drug Screen Stat (Urine) (11/19/19 00:49) Ua Culture If Indicated (11/19/19 00:49) Fentanyl Injection (Sublimaze Injection (11/19/19 01:00) Magnesium (11/19/19 00:49) Influenza A And B Antigens (11/19/19 00:51) Metoclopramide Injection (Reglan Injecti (11/19/19 02:00) Diphenhydramine Injection (Benadryl Inje (11/19/19 02:00) Methylprednisolone Sod Succ (Solu-Medrol (11/19/19 02:00) Ns Iv 500 Ml (Sodium Chloride 0.9%) (11/19/19 01:53) Ct Head Wo (11/19/19 02:57) Fentanyl Injection (Sublimaze Injection (11/19/19 04:00) Medications Given in ED Current Medications Medications Dose Ordered Sig/Norma Route Start Time Stop Time Status Last Admin Dose Admin Diphenhydramine HCl 25 mg ONCE ONCE IVP 11/19/19 02:00 11/19/19 02:01 DC 11/19/19 02:25 25 MG Fentanyl Citrate 50 mcg ONCE ONCE IVP 11/19/19 01:00 11/19/19 01:01 DC 11/19/19 01:05 50 MCG Fentanyl Citrate 100 mcg ONCE ONCE IVP 11/19/19 04:00 11/19/19 04:01 DC 11/19/19 04:27 100 MCG Methylprednisolone Sodium Succinate 62.5 mg ONCE ONCE IVP 11/19/19 02:00 11/19/19 02:01 DC 11/19/19 02:25 62.5 MG Metoclopramide HCl 5 mg ONCE ONCE IVP 11/19/19 02:00 11/19/19 02:01 DC 11/19/19 02:26 5 MG Sodium Chloride 500 ml @ 0 mls/hr Q0M ONCE IV 11/19/19 01:53 11/19/19 01:55 DC 11/19/19 02:26 500 MLS/HR Vital Signs/I&O 11/19/19 00:40 Temp 36.9 Pulse 121 Resp 18 B/P (MAP) 128/92 (104) Pulse Ox 98 O2 Delivery Room Air Blood Pressure Mean: 104 Diagnostic Imaging Diagonstic Imaging: CT Plain Films/CT/US/NM/MRI: head Comments Patient was seen and examined. She was given fentanyl for pain and labs were obtained. The fentanyl did not do much for her pain. She was further treated with Solu-Medrol, IV fluids and Benadryl. She still complained of significant pain and stated this is the worst headache she has ever had. Since she is on Xarelto and states this is her most severe headache ever, CT of the head was obtained to rule out hemorrhage. No hemorrhage or masses were identified. An additional dose of fentanyl was administered for further pain control. Departure Impression Primary Impression: Acute headache Qualified Codes: R51 - Headache Additional Impressions: Polysubstance abuse Nausea alone Disposition: HOME, SELF-CARE Condition: Improved Departure-Patient Inst. Decision time for Depature: 04:50 Referrals: [facility] (PCP/Family) Primary Care Physician Patient Instructions: Headache, Adult Add. Discharge Instructions: Drink plenty of clear liquids. You may use the hydrocodone you have at home to treat rebound headache if necessary. Follow-up with your primary care provider today as previously scheduled. Continue to work toward substance abuse treatment. Return to the emergency room if symptoms worsen. All discharge instructions reviewed with patient and/or family. Voiced understanding. COLIN BRANNON MD Nov 19, 2019 04:30
[2019-11-19 05:18] VITALS: BP 138/91
--- NOTE | 2019-11-19 06:48 | Diagnostic Imaging Report ---
EXAMINATION: CT head without contrast. TECHNIQUE: Multiple contiguous axial images were obtained through the brain without the use of intravenous contrast. All CT scans use one or more of the following dose optimizing techniques: automated exposure control, MA and/or KvP adjustment based on a patient size and exam type, or iterative reconstruction. HISTORY: Headache COMPARISON: 09/11/2019 FINDINGS: The garcia-white matter differentiation is normal. No mass effect or midline shift. The ventricles are normal in size and configuration. Basilar cisterns are patent. There are no intra- or extra-axial fluid collections. There is no intracranial hemorrhage. The orbits are normal. Paranasal sinuses are normal. Mastoid air cells are clear. No soft tissue abnormality is seen. No osseus lesions or fractures are seen. IMPRESSION: 1. No acute intracranial abnormality. Dictated by: Dictated on workstation # [id number]
== END 2019-11-19 05:16 | disposition home or self-care (01) ==
LOC: EDUNIT# 00:28 → ER 00:30
DX: R51 Headache (principal); F19.10 Other psychoactive substance abuse, uncomplicated; R11.0 Nausea; J43.9 Emphysema, unspecified; I10 Essential (primary) hypertension; I48.91 Unspecified atrial fibrillation; G40.909 Epilepsy, unspecified, not intractable, without status epilepticus; K21.9 Gastro-esophageal reflux disease without esophagitis; F41.9 Anxiety disorder, unspecified; F31.9 Bipolar disorder, unspecified; Z88.0 Allergy status to penicillin; Z88.2 Allergy status to sulfonamides; Z88.1 Allergy status to other antibiotic agents; Z88.8 Allergy status to other drugs, medicaments and biological substances; Z79.01 Long term (current) use of anticoagulants; Z77.22 Contact with and (suspected) exposure to environmental tobacco smoke (acute) (chronic); Z90.49 Acquired absence of other specified parts of digestive tract; Z90.710 Acquired absence of both cervix and uterus; Z98.51 Tubal ligation status
CPT/HCPCS: 36415; 70450; 80053; 80306; 81000; 83735; 85025; 87804

== ENCOUNTER 2019-11-27 14:16 | Outpatient (RCR) | payer MEDICAID ==
[~2019-11-27 14:16] MED LIST changes: +ACHYD1T PO; +FERRIC CARBOXYMALTOSE (CANCER) 750 MG in NS (IVPB) CANCER CENTER 250 ML IV SCH; -HYDR-3812 PO; -HYDR-3820 PO; -MECL-106 PO; +MECL-149 PO
[2019-12-01] MEDS ORDERED: CEPH-507 PO (21:27)
[2019-12-18] MEDS ORDERED: DOXY100T2 PO (22:32)
== END 2020-02-18 | disposition home or self-care (01) ==
LOC: ONC 14:16
PROVIDERS: ATTEND Internal Medicine Hematology & Oncology
DX: D50.9 Iron deficiency anemia, unspecified (principal); I48.91 Unspecified atrial fibrillation; I11.0 Hypertensive heart disease with heart failure; I50.9 Heart failure, unspecified; G40.909 Epilepsy, unspecified, not intractable, without status epilepticus; F43.10 Post-traumatic stress disorder, unspecified; K21.0 Gastro-esophageal reflux disease with esophagitis; M19.91 Primary osteoarthritis, unspecified site; F17.210 Nicotine dependence, cigarettes, uncomplicated; Z79.01 Long term (current) use of anticoagulants; Z88.2 Allergy status to sulfonamides; Z88.0 Allergy status to penicillin
CPT/HCPCS: 96365

== ENCOUNTER 2019-11-30 17:30 | Emergency (ER) | payer MEDICAID ==
[~2019-11-30] VITALS: Ht 160 cm; Wt 59.0 kg
[~2019-11-30 17:30] MED LIST changes: -ACHYD1T PO; -FERRIC CARBOXYMALTOSE (CANCER) 750 MG in NS (IVPB) CANCER CENTER 250 ML IV SCH; +HYDR-3812 PO; +HYDR-3820 PO; +MECL-106 PO; -MECL-149 PO
--- NOTE | 2019-11-30 17:52 | ED Abdominal Pain ---
General Chief Complaint: Abdominal/GI Problems Stated Complaint: ANXIETY Nursing Triage Note: Patient c/o abdomen pain, swelling, erythema. Patient states she has her abdomen drained on ,,. 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 Sepsis Screen: No Definite Risk Source of Information: Patient Exam Limitations: No Limitations History of Present Illness Date Seen by Provider: Nov 30, 2019 Time Seen by Provider: 17:49 Initial Comments To ER by private vehicle with reports of abdominal distention and pain that began earlier today. She has a paracentesis drain in place, she drained this wit h a Vacutainer at home prior to arrival but denies much improvement in symptoms. She also reports itching around the site. No fevers or chills, she has a PICC line in the right arm from receiving IV antibiotics for peritonitis but she stopped that about a month ago, now she is using the PICC line for IV iron infusions. Timing/Duration: 1-2 Days Severity/Quality: Moderate Radiation: No Radiation Activities at Onset: None Associated Symptoms: No Fever/Chills, No Nausea/Vomiting Allergies and Home Medications Allergies Coded Allergies: asenapine (Unverified Allergy, Severe, TOUNGE SWELLING, 11/19/19) Penicillins (Unverified Allergy, Unknown, 11/19/19) Sulfa (Sulfonamide Antibiotics) (Unverified Allergy, Unknown, 11/19/19) erythromycin base (Verified Allergy, Unknown, 11/19/19) peas (Verified Allergy, Unknown, 11/19/19) prochlorperazine (Verified Allergy, Unknown, 11/19/19) promethazine (Verified Allergy, Unknown, 11/19/19) promethazine HCl (Unverified Allergy, Unknown, 11/19/19) propoxyphene (Verified Allergy, Unknown, 11/19/19) Home Medications Acetaminophen 500 Mg Tablet, 1,000 MG PO Q4H PRN for PAIN-MILD (1-4), (Reported) Albuterol Sulfate 6.7 Gm Hfa.aer.ad, 2 PUFF INH Q4H PRN for SHORTNESS OF BREATH, (Reported) Buspirone HCl 10 Mg Tablet, 10 MG PO BID, (Reported) Calcium Carbonate 300 Mg Tab.chew, 300 MG PO QID PRN for INDIGESTION, (Reported) Cefdinir 300 Mg Capsule, 300 MG PO BID Prescribed by: JAIME FALL on 10/22/19 185 Cyclobenzaprine HCl 10 Mg Tablet, 10 MG PO BID, (Reported) LAST FILLED #60 08-11-19 Digoxin 125 Mcg Tablet, 125 MCG PO DAILY, (Reported) Diltiazem HCl 180 Mg Cap.er.24h, 180 MG PO DAILY, (Reported) Escitalopram Oxalate 20 Mg Tablet, 20 MG PO DAILY, (Reported) LAST FILLED #30 07-28-19 Hydrocodone Bit/Acetaminophen 1 Tab Tab, 1 EACH PO Q6H PRN for PAIN-MODERATE Prescribed by: KEAGAN LUNDBERG on 10/16/19 171 Hydrocodone/Acetaminophen 1 Each Tablet, 1-2 TAB PO Q4-6HR PRN for PAIN-MODERATE (5-7), (Reported) Hydrocodone/Acetaminophen 1 Each Tablet, 1 TAB PO Q4-6HR Prescribed by: COLIN QUEVEDO on 10/11/19 0059 Hydroxyzine Pamoate 25 Mg Capsule, 25 MG PO BID, (Reported) Hydroxyzine Pamoate 25 Mg Capsule, 25 MG PO TID PRN for ITCHING Prescribed by: NICK GARCIA on 10/31/192020 Levetiracetam 1,000 Mg Tablet, 1,000 MG PO BID, (Reported) LAST FILLED #60 08-11-19 Metoprolol Tartrate 25 Mg Tablet, 25 MG PO BID, (Reported) Mirtazapine 15 Mg Tablet, 15 MG PO HS, (Reported) Omeprazole 40 Mg Capsule.dr, 40 MG PO HS, (Reported) LAST FILLED 06-12-19 #30 Polyethylene Glycol 3350 17 Gm Powd.pack, 17 GM PO BID PRN for CONSTIPATION-2ND LINE, (Reported) Risperidone 1 Mg Tablet, 1 MG PO BID, (Reported) LAST FILLED #60 08-11-19 Rivaroxaban 20 Mg Tablet, 20 MG PO DAILY, (Reported) LAST FILLED #30 08-11-19 Spironolactone 25 Mg Tablet, 25 MG PO BID, (Reported) Sucralfate 1 Gm Tablet, 1 GM PO QID, (Reported) Tramadol HCl 50 Mg Tablet, 50 MG PO 4-6 Prescribed by: SIVAKUMAR BAUER on 10/06/19 1708 Vancomycin HCl/D5w 1.5 Gm/250 Ml Plast..bag, 1.5 GM IV DAILY Prescribed by: JAGDISH SCRUGGS on 10/06/19 1204 Patient Home Medication List Home Medication List Reviewed: Yes Review of Systems Review of Systems Constitutional: see HPI EENTM: No Symptoms Reported Respiratory: No Symptoms Reported Cardiovascular: No Symptoms Reported Gastrointestinal: See HPI, Abdominal Pain Genitourinary: No Symptoms Reported Musculoskeletal: no symptoms reported Skin: no symptoms reported Psychiatric/Neurological: No Symptoms Reported Endocrine: No Symptoms Reported Past Nxofrfh-Nkzpvm-Klvawz Hx Patient Social History Alcohol Use: Denies Use Number of Drinks Today: CC Alcohol Beverage of Choice: Beer, Cheap Liquor Recreational Drug Use: Yes Drug of Choice: THC clean off everything else for 13 days. Type Used: Cigarettes 2nd Hand Smoke Exposure: Yes Recent Foreign Travel: No Contact w/Someone Who Travel: No Recent Infectious Disease Expo: No Recent Hopitalizations: No Immunizations Up To Date Tetanus Booster (TDap): Unknown PED Vaccines UTD: Yes Date of Pneumonia Vaccine: Oct 22, 2017 Date of Influenza Vaccine: Sep 06, 2019 Seasonal Allergies Seasonal Allergies: No Past Medical History Surgeries: Yes Abdominal, Appendectomy, Cardiac, Section, Gallbladder, Hysterectomy, Oophorectomy, Orthopedic, Pacemaker, Tubal Ligation, Valve Replacement Respiratory: Yes Asthma, Chronic Bronchitis, COPD, Emphysema Currently Using CPAP: No Currently Using BIPAP: No Cardiac: Yes Atrial Fibrillation, Chronic Edema/Swelling, Congenital Heart Disease, Heart Murmur, Hypertension, Irregular Heartbeat, Syncope, Valvular Heart Disease Neurological: Yes Headaches /Migraines, Seizure Disorder 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: Yes 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 Sexually Transmitted Disease: No HIV/AIDS: No Genitourinary: Yes Neurogenic Bladder Gastrointestinal: Yes Gastroesophageal Reflux, Gastrointestinal Bleed, Hiatal Hernia, Ulcer, Irritable Bowel Musculoskeletal: Yes Degenerate Disk Disease, Fibromyalgia, Back Injury, Chronic Back Pain, Fractures Endocrine: No HEENT: Yes Loss of Vision: Bilateral Hearing Impairment: Denies Cancer: No Psychosocial: Yes ADD/ADHD, Anxiety, PTSD, Suicide Attempts, Bipolar, Personality Disorder, Depression Integumentary: No Blood Disorders: No Adverse Reaction/Blood Tranf: No Family Medical History Alcoholism 19 MOTHER Depression Depression Diabetes mellitus 19 MOTHER Drug abuse 19 MOTHER FH: cancer of genital organ 19 MOTHER No Pertinent Family Hx, Diabetes, Psychiatric Problems, Other Conditions/Hx Physical Exam Vital Signs Vital Signs - First Documented 11/30/19 17:34 Temp 37.1 Pulse 68 Resp 18 B/P (MAP) 92/62 (72) Capillary Refill : Less Than 3 Seconds Height/Weight/BMI Height: 5'3.00" Weight: 130lbs. 0.0oz. 58.110935tm; 23.00 BMI Method:Stated General Appearance: WD/WN, no apparent distress HEENT: PERRL/EOMI, normal ENT inspection Neck: non-tender, full range of motion Respiratory: no respiratory distress, no accessory muscle use Gastrointestinal: normal bowel sounds, soft, tenderness (abdominal distention), other (she is tender locally around the paracentesis insertion site but she is not diffusely tender as one would expect with peritonitis.) Extremities: normal range of motion, non-tender Neurologic/Psychiatric: alert, normal mood/affect, oriented x 3 Skin: normal color, warm/dry Progress/Results/Core Measures Results/Orders Lab Results Laboratory Tests Test 11/30/19 17:54 Range/Units White Blood Count 10.0 4.3-11.0 10^3/uL Red Blood Count 4.02 L 4.35-5.85 10^6/uL Hemoglobin 8.7 L 11.5-16.0 G/DL Hematocrit 29 L 35-52 % Mean Corpuscular Volume 71 L 80-99 FL Mean Corpuscular Hemoglobin 22 L 25-34 PG Mean Corpuscular Hemoglobin Concent 31 L 32-36 G/DL Red Cell Distribution Width 26.6 H 10.0-14.5 % Platelet Count 504 H 130-400 10^3/uL Mean Platelet Volume 8.9 7.4-10.4 FL Neutrophils (%) (Auto) 68 42-75 % Lymphocytes (%) (Auto) 14 12-44 % Monocytes (%) (Auto) 12 0-12 % Eosinophils (%) (Auto) 6 0-10 % Basophils (%) (Auto) 0 0-10 % Neutrophils # (Auto) 6.8 1.8-7.8 X 10^3 Lymphocytes # (Auto) 1.4 1.0-4.0 X 10^3 Monocytes # (Auto) 1.2 H 0.0-1.0 X 10^3 Eosinophils # (Auto) 0.6 H 0.0-0.3 10^3/uL Basophils # (Auto) 0.0 0.0-0.1 10^3/uL Sodium Level 136 135-145 MMOL/L Potassium Level 3.9 3.6-5.0 MMOL/L Chloride Level 105 98-107 MMOL/L Carbon Dioxide Level 24 21-32 MMOL/L Anion Gap 7 5-14 MMOL/L Blood Urea Nitrogen 6 L 7-18 MG/DL Creatinine 0.62 0.60-1.30 MG/DL Estimat Glomerular Filtration Rate > 60 BUN/Creatinine Ratio 10 Glucose Level 92 70-105 MG/DL Calcium Level 7.8 L 8.5-10.1 MG/DL Corrected Calcium 8.9 8.5-10.1 MG/DL Total Bilirubin 0.5 0.1-1.0 MG/DL Aspartate Amino Transf (AST/SGOT) 17 5-34 U/L Alanine Aminotransferase (ALT/SGPT) 18 0-55 U/L Alkaline Phosphatase 241 H 40-136 U/L Total Protein 6.3 L 6.4-8.2 GM/DL Albumin 2.6 L 3.2-4.5 GM/DL Lipase 7 L 8-78 U/L My Orders Orders - SUDHIR SCOTT APRN Cbc With Automated Diff (11/30/19 17:41) Comprehensive Metabolic Panel (11/30/19 17:41) Lipase (11/30/19 17:41) Ed Iv/Invasive Line Start (11/30/19 17:41) Drug Screen Stat (Urine) (11/30/19 17:46) Ketorolac Injection (Toradol Injection) (11/30/19 18:00) Ns Iv 500 Ml (Sodium Chloride 0.9%) (11/30/19 18:00) Diphenhydramine Injection (Benadryl Inje (11/30/19 18:00) Medications Given in ED Current Medications Medications Dose Ordered Sig/Norma Route Start Time Stop Time Status Last Admin Dose Admin Diphenhydramine HCl 25 mg ONCE ONCE IVP 11/30/19 18:00 11/30/19 18:01 DC 11/30/19 18:01 25 MG Ketorolac Tromethamine 15 mg ONCE ONCE IVP 11/30/19 18:00 11/30/19 18:01 DC 11/30/19 18:01 15 MG Vital Signs/I&O 11/30/19 17:34 Temp 37.1 Pulse 68 Resp 18 B/P (MAP) 92/62 (72) Blood Pressure Mean: 72 Departure Communication (Admissions) I did attach her paracentesis catheter to a Vacutainer, we aspirated 750 mL of cloudy straw-colored ascites. Impression Primary Impression: Ascites Qualified Codes: R18.8 - Other ascites Disposition: HOME, SELF-CARE Condition: Stable Departure-Patient Inst. Decision time for Depature: 18:37 Referrals: [facility] [place] Primary Care Physician Patient Instructions: Fluid in the Belly (Ascites) Add. Discharge Instructions: 1. Return to ER for any concerns 2. Follow-up with your doctor next week 3. All discharge instructions reviewed with patient and/or family. Voiced under standing. SUDHIR SCOTT APRN Nov 30, 2019 17:52
[2019-11-30] MEDS ORDERED: KETOROLAC 30 MG/ML VIAL IVP ONE (18:00)
[2019-11-30] MEDS ORDERED: diphenhydrAMINE 50 MG/ML INJ (BENADRYL) IVP ONE (18:00)
[2019-11-30] MEDS ORDERED: NS IV 500 ML 500 ML IV SCH (18:00)
[2019-11-30 18:01] LABS: BASOPHILS % (AUTO) 0 % (0-10); EOSINOPHILS # (AUTO) 0.6 10^3/uL (0.0-0.3); EOSINOPHILS % (AUTO) 6 % (0-10); HEMATOCRIT 29 % (35-52); HEMOGLOBIN 8.7 G/DL (11.5-16.0); LYMPHOCYTES # (AUTO) 1.4 X 10^3 (1.0-4.0); LYMPHOCYTES % (AUTO) 14 % (12-44); MEAN CORPUSCULAR HEMOGLOBIN 22 PG (25-34); MEAN CORPUSCULAR HGB CONC 31 G/DL (32-36); MEAN CORPUSCULAR VOLUME 71 FL (80-99); MEAN PLATELET VOLUME 8.9 FL (7.4-10.4); MONOCYTES # (AUTO) 1.2 X 10^3 (0.0-1.0); MONOCYTES % (AUTO) 12 % (0-12); NEUTROPHILS # (AUTO) 6.8 X 10^3 (1.8-7.8); NEUTROPHILS % (AUTO) 68 % (42-75); PLATELET COUNT 504 10^3/uL (130-400); RED CELL DISTRIBUTION WIDTH 26.6 % (10.0-14.5)
[2019-11-30 18:21] LABS: ALANINE AMINOTRANSFERASE 18 U/L (0-55); ALBUMIN 2.6 GM/DL (3.2-4.5); ALKALINE PHOSPHATASE 241 U/L (40-136); BILIRUBIN,TOTAL 0.5 MG/DL (0.1-1.0); BUN/CREATININE RATIO 10; CALCIUM 7.8 MG/DL (8.5-10.1); CARBON DIOXIDE 24 MMOL/L (21-32); CHLORIDE 105 MMOL/L (98-107); CREATININE SERUM 0.62 MG/DL (0.60-1.30); GFR ESTIMATED > 60; GLUCOSE 92 MG/DL (70-105); LIPASE 7 U/L (8-78); POTASSIUM 3.9 MMOL/L (3.6-5.0); SODIUM 136 MMOL/L (135-145); TOTAL PROTEIN 6.3 GM/DL (6.4-8.2)
[2019-11-30 18:51] VITALS: BP 95/60
[2019-12-01] MEDS ORDERED: CEPH-507 PO (21:27)
== END 2019-11-30 18:52 | disposition home or self-care (01) ==
LOC: EDUNIT# 17:30 → ER 17:31
DX: R18.8 Other ascites (principal); I10 Essential (primary) hypertension; I48.91 Unspecified atrial fibrillation; J43.9 Emphysema, unspecified; G40.909 Epilepsy, unspecified, not intractable, without status epilepticus; K21.9 Gastro-esophageal reflux disease without esophagitis; F31.9 Bipolar disorder, unspecified; F41.9 Anxiety disorder, unspecified; Z88.0 Allergy status to penicillin; Z88.2 Allergy status to sulfonamides; Z88.1 Allergy status to other antibiotic agents; Z88.8 Allergy status to other drugs, medicaments and biological substances; Z79.01 Long term (current) use of anticoagulants; Z77.22 Contact with and (suspected) exposure to environmental tobacco smoke (acute) (chronic); Z80.49 Family history of malignant neoplasm of other genital organs
CPT/HCPCS: 36415; 80053; 83690; 85025; 96374; 96375

== ENCOUNTER 2019-12-01 19:37 | Emergency (ER) | payer MEDICAID ==
[~2019-12-01] VITALS: Ht 160 cm; Wt 59.0 kg
[2019-12-01] MEDS ORDERED: KETOROLAC 30 MG/ML VIAL ONE (20:36)
[2019-12-01] MEDS ORDERED: KETOROLAC 30 MG/ML VIAL IVP ONE (20:45)
[2019-12-01 20:46] LABS: CLARITY,URINE CLEAR; COLOR,URINE YELLOW; GLUCOSE, URINE (UA) NEGATIVE (NEGATIVE); KETONES,URINE NEGATIVE (NEGATIVE); LEUKOCYTE ESTERASE ,URINE TRACE (NEGATIVE); NITRITE,URINE NEGATIVE (NEGATIVE); PH,URINE 6.5 (5-9); PROTEIN,URINE NEGATIVE (NEGATIVE)
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
[2019-12-01 21:05] LABS: AMPHETAMINE SCREEN, URINE NEGATIVE (NEGATIVE); BARBITURATE SCREEN URINE NEGATIVE (NEGATIVE); BENZODIAZEPINES SCREEN URINE POSITIVE (NEGATIVE); CANNABINOID SCREEN, URINE POSITIVE (NEGATIVE); COCAINE SCREEN URINE NEGATIVE (NEGATIVE); METHADONE STAT NEGATIVE (NEGATIVE); METHAMPHETAMINE SCREEN URINE S NEGATIVE (NEGATIVE); OPIATE SCREEN URINE NEGATIVE (NEGATIVE); OXYCODONE STAT NEGATIVE (NEGATIVE); PROPOXYPHENE STAT NEGATIVE (NEGATIVE); TRICYCLIC ANTIDEPRESSANTS SCRE POSITIVE (NEGATIVE)
[2019-12-01 21:14] LABS: BACTERIA,URINE FEW /HPF
[2019-12-01 21:15] LABS: BILIRUBIN,URINE 1+ (NEGATIVE)
[2019-12-01] MEDS ORDERED: CEPH-507 PO (21:27)
[2019-12-01] MEDS ORDERED: CEPHALEXIN 250 MG (KEFLEX) CAP PO ONE (21:30)
[2019-12-01] MEDS ORDERED: HYDROcodone/APAP 5 MG/325 MG (LORTAB) TAB PO ONE (21:30)
[2019-12-01 21:38] VITALS: BP 100/60
== END 2019-12-01 21:39 | disposition home or self-care (01) ==
LOC: EDUNIT# 19:37 → ER 19:38
DX: R18.8 Other ascites (principal); J43.9 Emphysema, unspecified; I10 Essential (primary) hypertension; I48.91 Unspecified atrial fibrillation; G40.909 Epilepsy, unspecified, not intractable, without status epilepticus; K21.9 Gastro-esophageal reflux disease without esophagitis; F41.9 Anxiety disorder, unspecified; F32.9 Major depressive disorder, single episode, unspecified; Z95.0 Presence of cardiac pacemaker; Z88.0 Allergy status to penicillin; Z88.2 Allergy status to sulfonamides; Z88.1 Allergy status to other antibiotic agents; Z88.8 Allergy status to other drugs, medicaments and biological substances; Z79.01 Long term (current) use of anticoagulants; Z77.22 Contact with and (suspected) exposure to environmental tobacco smoke (acute) (chronic); Z80.49 Family history of malignant neoplasm of other genital organs
CPT/HCPCS: 80306; 81000; 87077; 87088; 87186; 96374; 99285

== ENCOUNTER 2019-12-05 17:50 | Inpatient (IN) | payer MEDICAID ==
[~2019-12-05] VITALS: Ht 160 cm; Wt 61.1 kg
[2019-12-05] MEDS ORDERED: VANCOMYCIN INJECTION 1,000 MG in NS (IVPB) 250 ML IV SCH (18:15)
--- NOTE | 2019-12-05 18:21 | ED General ---
General Chief Complaint: General Problems/Pain Stated Complaint: PAIN ABD AREA/TUBE INFECTED Source of Information: Patient Exam Limitations: No Limitations History of Present Illness Date Seen by Provider: Dec 05, 2019 Time Seen by Provider: 18:16 Initial Comments To ER with reports of infected paracentesis drain site. She has a chronic indwelling paracentesis drain and has noticed some redness around it for the past week or 2. She's been seen here in ER a couple of times, I put her on Keflex earlier this week. She gets her ascites drained Sunday at the surgery center here in [place]. Also reports bright red blood per rectum for the past 2 days. Timing/Duration: 1-2 Days Severity: Moderate Associated Systoms: No Fever/Chills, No Nausea/Vomiting Allergies and Home Medications Allergies Coded Allergies: asenapine (Unverified Allergy, Severe, TOUNGE SWELLING, 11/19/19) Penicillins (Unverified Allergy, Unknown, 11/19/19) Sulfa (Sulfonamide Antibiotics) (Unverified Allergy, Unknown, 11/19/19) erythromycin base (Verified Allergy, Unknown, 11/19/19) peas (Verified Allergy, Unknown, 11/19/19) prochlorperazine (Verified Allergy, Unknown, 11/19/19) promethazine (Verified Allergy, Unknown, 11/19/19) promethazine HCl (Unverified Allergy, Unknown, 11/19/19) propoxyphene (Verified Allergy, Unknown, 11/19/19) Home Medications Acetaminophen 500 Mg Tablet, 1,000 MG PO Q4H PRN for PAIN-MILD (1-4), (Reported) Albuterol Sulfate 6.7 Gm Hfa.aer.ad, 2 PUFF INH Q4H PRN for SHORTNESS OF BREATH, (Reported) Buspirone HCl 10 Mg Tablet, 10 MG PO BID, (Reported) Calcium Carbonate 300 Mg Tab.chew, 300 MG PO QID PRN for INDIGESTION, (Reported) Cefdinir 300 Mg Capsule, 300 MG PO BID Prescribed by: JAIME FALL on 10/22/191852 Cephalexin 500 Mg Capsule, 500 MG PO TID Prescribed by: SUDHIR SCOTT on 12/01/192126 Cyclobenzaprine HCl 10 Mg Tablet, 10 MG PO BID, (Reported) LAST FILLED #60 08-11-19 Digoxin 125 Mcg Tablet, 125 MCG PO DAILY, (Reported) Diltiazem HCl 180 Mg Cap.er.24h, 180 MG PO DAILY, (Reported) Escitalopram Oxalate 20 Mg Tablet, 20 MG PO DAILY, (Reported) LAST FILLED #30 07-28-19 Hydrocodone Bit/Acetaminophen 1 Tab Tab, 1 EACH PO Q6H PRN for PAIN-MODERATE Prescribed by: KEAGAN LUNDBERG on 10/16/19 171 Hydrocodone/Acetaminophen 1 Each Tablet, 1-2 TAB PO Q4-6HR PRN for PAIN-MODERATE (5-7), (Reported) Hydrocodone/Acetaminophen 1 Each Tablet, 1 TAB PO Q4-6HR Prescribed by: COLIN QUEVEDO on 10/11/19 005 Hydroxyzine Pamoate 25 Mg Capsule, 25 MG PO BID, (Reported) Hydroxyzine Pamoate 25 Mg Capsule, 25 MG PO TID PRN for ITCHING Prescribed by: NICK GARCIA on 10/31/192020 Levetiracetam 1,000 Mg Tablet, 1,000 MG PO BID, (Reported) LAST FILLED #60 08-11-19 Metoprolol Tartrate 25 Mg Tablet, 25 MG PO BID, (Reported) Mirtazapine 15 Mg Tablet, 15 MG PO HS, (Reported) Omeprazole 40 Mg Capsule.dr, 40 MG PO HS, (Reported) LAST FILLED 06-12-19 #30 Polyethylene Glycol 3350 17 Gm Powd.pack, 17 GM PO BID PRN for CONSTIPATION-2ND LINE, (Reported) Risperidone 1 Mg Tablet, 1 MG PO BID, (Reported) LAST FILLED #60 08-11-19 Rivaroxaban 20 Mg Tablet, 20 MG PO DAILY, (Reported) LAST FILLED #30 08-11-19 Spironolactone 25 Mg Tablet, 25 MG PO BID, (Reported) Sucralfate 1 Gm Tablet, 1 GM PO QID, (Reported) Tramadol HCl 50 Mg Tablet, 50 MG PO 4-6 Prescribed by: ISVAKUMAR BAUER on 10/06/19 170 Vancomycin HCl/D5w 1.5 Gm/250 Ml Plast..bag, 1.5 GM IV DAILY Prescribed by: JAGDISH SCRUGGS on 10/06/19 1204 Patient Home Medication List Home Medication List Reviewed: Yes Review of Systems Review of Systems Constitutional: see HPI; No chills, No fever EENTM: see HPI Respiratory: no symptoms reported Cardiovascular: no symptoms reported Gastrointestinal: abdominal pain Genitourinary: no symptoms reported Musculoskeletal: no symptoms reported Skin: no symptoms reported Psychiatric/Neurological: No Symptoms Reported Past [id number] Hx Patient Social History Alcohol Beverage of Choice: Beer, Cheap Liquor Drug of Choice: CRYSTAL, WEED, PILLS Type Used: Cigarettes 2nd Hand Smoke Exposure: Yes Recent Foreign Travel: No Contact w/Someone Who Travel: No Recent Hopitalizations: No Immunizations Up To Date Tetanus Booster (TDap): Unknown PED Vaccines UTD: Yes Date of Pneumonia Vaccine: Oct 22, 2017 Date of Influenza Vaccine: Sep 06, 2019 Seasonal Allergies Seasonal Allergies: No Past Medical History Surgeries: Yes Abdominal, Appendectomy, Cardiac, Section, Gallbladder, Hysterectomy, Oophorectomy, Orthopedic, Pacemaker, Tubal Ligation, Valve Replacement Respiratory: Yes Asthma, Chronic Bronchitis, COPD, Emphysema Currently Using CPAP: No Currently Using BIPAP: No Cardiac: Yes Atrial Fibrillation, Chronic Edema/Swelling, Congenital Heart Disease, Heart Murmur, Hypertension, Irregular Heartbeat, Syncope, Valvular Heart Disease Neurological: Yes Headaches /Migraines, Seizure Disorder 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: Yes 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: 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 Sexually Transmitted Disease: No HIV/AIDS: No Genitourinary: Yes Neurogenic Bladder Gastrointestinal: Yes Gastroesophageal Reflux, Gastrointestinal Bleed, Hiatal Hernia, Ulcer, Irritable Bowel Musculoskeletal: Yes Degenerate Disk Disease, Fibromyalgia, Back Injury, Chronic Back Pain, Fractures Endocrine: No HEENT: Yes Loss of Vision: Bilateral Hearing Impairment: Denies Cancer: No Psychosocial: Yes ADD/ADHD, Anxiety, PTSD, Suicide Attempts, Bipolar, Personality Disorder, Depression Integumentary: No Blood Disorders: No Adverse Reaction/Blood Tranf: No Family Medical History Alcoholism 19 MOTHER Depression Depression Diabetes mellitus 19 MOTHER Drug abuse 19 MOTHER FH: cancer of genital organ 19 MOTHER No Pertinent Family Hx, Diabetes, Psychiatric Problems, Other Conditions/Hx Physical Exam Vital Signs Vital Signs - First Documented 12/05/19 18:05 Temp 37.0 Pulse 80 Resp 20 B/P (MAP) 104/57 (73) Pulse Ox 98 O2 Delivery Room Air Capillary Refill : Height, Weight, BMI Height: 5'3.00" Weight: 130lbs. 0.0oz. [id number]; 23.00 BMI Method:Stated General Appearance: No Apparent Distress, Chronically ill Eyes: Bilateral Eye Normal Inspection, Bilateral Eye PERRL Respiratory: Lungs Clear, No Accessory Muscle Use, No Respiratory Distress Gastrointestinal: Normal Bowel Sounds, Soft, Other (tenderness around the paracentesis drain insertion site, there is a bout 1 cm of surrounding erythema. The tenderness to palpation is localized to the drain site, not diffuse. He) Extremity: Normal Capillary Refill Neurologic/Psychiatric: Alert, Oriented x3 Skin: Normal Color, Warm/Dry Progress/Results/Core Measures Suspected Sepsis SIRS Temperature: Pulse: Respiratory Rate: Laboratory Tests 12/05/19 18:25: White Blood Count 9.8 Blood Pressure / Mean: Laboratory Tests 12/05/19 18:25: Creatinine 0.61, Platelet Count 490H, Total Bilirubin 0.3 Results/Orders Lab Results Laboratory Tests Test 12/05/19 18:25 12/05/19 18:29 Range/Units White Blood Count 9.8 4.3-11.0 10^3/uL Red Blood Count 4.14 L 4.35-5.85 10^6/uL Hemoglobin 9.4 L 11.5-16.0 G/DL Hematocrit 31 L 35-52 % Mean Corpuscular Volume 74 L 80-99 FL Mean Corpuscular Hemoglobin 23 L 25-34 PG Mean Corpuscular Hemoglobin Concent 31 L 32-36 G/DL Red Cell Distribution Width 29.4 H 10.0-14.5 % Platelet Count 490 H 130-400 10^3/uL Mean Platelet Volume 9.5 7.4-10.4 FL Neutrophils (%) (Auto) 70 42-75 % Lymphocytes (%) (Auto) 16 12-44 % Monocytes (%) (Auto) 9 0-12 % Eosinophils (%) (Auto) 5 0-10 % Basophils (%) (Auto) 0 0-10 % Neutrophils # (Auto) 6.9 1.8-7.8 X 10^3 Lymphocytes # (Auto) 1.5 1.0-4.0 X 10^3 Monocytes # (Auto) 0.9 0.0-1.0 X 10^3 Eosinophils # (Auto) 0.5 H 0.0-0.3 10^3/uL Basophils # (Auto) 0.0 0.0-0.1 10^3/uL Sodium Level 137 135-145 MMOL/L Potassium Level 3.6 3.6-5.0 MMOL/L Chloride Level 106 98-107 MMOL/L Carbon Dioxide Level 23 21-32 MMOL/L Anion Gap 8 5-14 MMOL/L Blood Urea Nitrogen 9 7-18 MG/DL Creatinine 0.61 0.60-1.30 MG/DL Estimat Glomerular Filtration Rate > 60 BUN/Creatinine Ratio 15 Glucose Level 90 70-105 MG/DL Calcium Level 7.8 L 8.5-10.1 MG/DL Corrected Calcium 8.9 8.5-10.1 MG/DL Total Bilirubin 0.3 0.1-1.0 MG/DL Aspartate Amino Transf (AST/SGOT) 16 5-34 U/L Alanine Aminotransferase (ALT/SGPT) 12 0-55 U/L Alkaline Phosphatase 262 H 40-136 U/L Total Protein 6.1 L 6.4-8.2 GM/DL Albumin 2.6 L 3.2-4.5 GM/DL Urine Color YELLOW Urine Clarity CLEAR Urine pH 7.0 5-9 Urine Specific [place] 1.010 L 1.016-1.022 Urine Protein NEGATIVE NEGATIVE Urine Glucose (UA) NEGATIVE NEGATIVE Urine Ketones NEGATIVE NEGATIVE Urine Nitrite NEGATIVE NEGATIVE Urine Bilirubin NEGATIVE NEGATIVE Urine Urobilinogen 0.2 < = 1.0 MG/DL Urine Leukocyte Esterase NEGATIVE NEGATIVE Urine RBC (Auto) NEGATIVE NEGATIVE Urine RBC NONE /HPF Urine WBC 0-2 /HPF Urine Squamous Epithelial Cells 5-10 /HPF Urine Crystals NONE /LPF Urine Bacteria TRACE /HPF Urine Casts NONE /LPF Urine Mucus NEGATIVE /LPF Urine Culture Indicated NO Urine Opiates Screen NEGATIVE NEGATIVE Urine Oxycodone Screen NEGATIVE NEGATIVE Urine Methadone Screen NEGATIVE NEGATIVE Urine Propoxyphene Screen NEGATIVE NEGATIVE Urine Barbiturates Screen NEGATIVE NEGATIVE Ur Tricyclic Antidepressants Screen NEGATIVE NEGATIVE Urine Phencyclidine Screen NEGATIVE NEGATIVE Urine Amphetamines Screen NEGATIVE NEGATIVE Urine Methamphetamines Screen NEGATIVE NEGATIVE Urine Benzodiazepines Screen NEGATIVE NEGATIVE Urine Cocaine Screen NEGATIVE NEGATIVE Urine Cannabinoids Screen POSITIVE H NEGATIVE My Orders Orders - SUDHIR SCOTT BLAST [employer]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 Rose, will admit on vancomycin Impression Primary Impression: infected paracentesis drain Disposition: ADMITTED INPATIENT Condition: Stable Admissions Decision to Admit Reason: Admit from ER (General) Decision to Admit/Date: Dec 05, 2019 Time/Decision to Admit Time: 18:20 Departure-Patient Inst. Decision time for Depature: 18:57 Referrals: [facility] (PCP/Family) Primary Care Physician SUDHIR SCOTT APRN Dec 05, 2019 18:21
[2019-12-05 18:32] LABS: BASOPHILS % (AUTO) 0 % (0-10); EOSINOPHILS # (AUTO) 0.5 10^3/uL (0.0-0.3); EOSINOPHILS % (AUTO) 5 % (0-10); HEMATOCRIT 31 % (35-52); HEMOGLOBIN 9.4 G/DL (11.5-16.0); LYMPHOCYTES # (AUTO) 1.5 X 10^3 (1.0-4.0); LYMPHOCYTES % (AUTO) 16 % (12-44); MEAN CORPUSCULAR HEMOGLOBIN 23 PG (25-34); MEAN CORPUSCULAR HGB CONC 31 G/DL (32-36); MEAN CORPUSCULAR VOLUME 74 FL (80-99); MEAN PLATELET VOLUME 9.5 FL (7.4-10.4); MONOCYTES # (AUTO) 0.9 X 10^3 (0.0-1.0); MONOCYTES % (AUTO) 9 % (0-12); NEUTROPHILS # (AUTO) 6.9 X 10^3 (1.8-7.8); NEUTROPHILS % (AUTO) 70 % (42-75); PLATELET COUNT 490 10^3/uL (130-400); RED CELL DISTRIBUTION WIDTH 29.4 % (10.0-14.5); WHITE BLOOD COUNT 9.8 10^3/uL (4.3-11.0)
[2019-12-05 18:34] LABS: BILIRUBIN,URINE NEGATIVE (NEGATIVE); CLARITY,URINE CLEAR; COLOR,URINE YELLOW; GLUCOSE, URINE (UA) NEGATIVE (NEGATIVE); KETONES,URINE NEGATIVE (NEGATIVE); LEUKOCYTE ESTERASE ,URINE NEGATIVE (NEGATIVE); NITRITE,URINE NEGATIVE (NEGATIVE); PROTEIN,URINE NEGATIVE (NEGATIVE)
[2019-12-05 18:49] LABS: AMPHETAMINE SCREEN, URINE NEGATIVE (NEGATIVE); BACTERIA,URINE TRACE /HPF; BARBITURATE SCREEN URINE NEGATIVE (NEGATIVE); BENZODIAZEPINES SCREEN URINE NEGATIVE (NEGATIVE); CANNABINOID SCREEN, URINE POSITIVE (NEGATIVE); COCAINE SCREEN URINE NEGATIVE (NEGATIVE); METHADONE STAT NEGATIVE (NEGATIVE); METHAMPHETAMINE SCREEN URINE S NEGATIVE (NEGATIVE); OPIATE SCREEN URINE NEGATIVE (NEGATIVE); OXYCODONE STAT NEGATIVE (NEGATIVE); PROPOXYPHENE STAT NEGATIVE (NEGATIVE); TRICYCLIC ANTIDEPRESSANTS SCRE NEGATIVE (NEGATIVE); WBC,URINE 0-2 /HPF
[2019-12-05 18:51] LABS: ALANINE AMINOTRANSFERASE 12 U/L (0-55); ALBUMIN 2.6 GM/DL (3.2-4.5); ALKALINE PHOSPHATASE 262 U/L (40-136); BILIRUBIN,TOTAL 0.3 MG/DL (0.1-1.0); BUN/CREATININE RATIO 15; CALCIUM 7.8 MG/DL (8.5-10.1); CARBON DIOXIDE 23 MMOL/L (21-32); CHLORIDE 106 MMOL/L (98-107); CREATININE SERUM 0.61 MG/DL (0.60-1.30); GFR ESTIMATED > 60; GLUCOSE 90 MG/DL (70-105); POTASSIUM 3.6 MMOL/L (3.6-5.0); SODIUM 137 MMOL/L (135-145); TOTAL PROTEIN 6.1 GM/DL (6.4-8.2)
[2019-12-05] MEDS ORDERED: KETOROLAC 30 MG/ML VIAL IVP ONE (19:30)
[2019-12-05] MEDS ORDERED: ACETAMINOPHEN 500 MG TAB (TYLENOL) PO ONE (19:30)
[2019-12-05 20:11] VITALS: BP 93/55
[2019-12-05 20:18] VITALS: BP 93/55
--- NOTE | 2019-12-05 20:20 | NUR ---
CR 0.61; CR CR > 60; WT 56.7 KG; VANCO 1000 MG IV Q12H; TROUGH AFTER 3RD DOSE
[2019-12-05] MEDS ORDERED: CATHETER FLUSH 10 ML SYR IV PRN (20:30)
[2019-12-05] MEDS: VANCOMYCIN 1 GM/NS 250 ML IVPB IV SCH ×2 (21:28)
[2019-12-05] MEDS: CATHETER FLUSH 10 ML SYR IV SCH (21:33)
[2019-12-06 00:05] VITALS: BP 88/47
[2019-12-06 04:10] VITALS: BP 86/51
[2019-12-06] MEDS: CATHETER FLUSH 10 ML SYR IV SCH ×3 (05:55→21:17)
[2019-12-06 08:00] VITALS: BP 100/62
[2019-12-06] MEDS: VANCOMYCIN 1 GM/NS 250 ML IVPB IV SCH ×4 (08:50→21:17)
[2019-12-06] MEDS: KETOROLAC 15 MG/ML VIAL IVP PRN ×2 (08:50→16:45)
[2019-12-06] MEDS: ALPRAZolam 1 MG (XANAX) TAB PO PRN ×2 (11:45→18:17)
--- NOTE | 2019-12-06 11:49 | Discharge Inst-Surgical ---
D/C Lap Instructions-NANCYO Reconcile Patient Problems Problems Reviewed?: Yes Follow Up Appt PRN Activity as tolerated No driving while on pain medications Continue with scheduled paracentesis. Regular Diet Symptoms to Report: Fever over 101 degree F, Nausea/Vomiting Infection Signs and Symptoms to report: Increased redness, Foul odor of wound, Increased drainage Bathing instructions: May shower Operative Area Clean/Dry; Keep incision clean/dry If any problems/questions: Contact your physician or go to Emergency Room TANO MARQUEZ APRN Dec 06, 2019 11:49
[2019-12-06] MEDS ORDERED: FUROSEMIDE 40 MG/4 ML INJ (LASIX) ONE (11:55)
[2019-12-06 12:00] VITALS: BP 117/81
--- NOTE | 2019-12-06 13:44 | NUR ---
LASIX ORDER ON WRONG PT
--- NOTE | 2019-12-06 14:07 | HISTORY AND PHYSICAL ---
DATE OF SERVICE: 12/06/2019 ATTENDING PHYSICIAN: Dr. Scott at [facility]. HISTORY OF PRESENT ILLNESS: The patient is a 39-year-old female who is known to us. 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 She has had previous surgeries before in the past; however, needed further cardiac workup. She has had recurrent pleural effusions requiring multiple paracentesis. She has continued to be symptomatic and was referred to us as well seen by other consultants. She does have a history of previous drug abuse and does have a problem with having the procedure scheduled. She does continue to have symptoms of recurrent ascites. On 09/25/2019, she did undergo placement of a tunneled paracentesis catheter as well as an EGD with biopsy. Findings, reflux esophagitis stage II and a small hiatal hernia 1.5 cm in size as well as moderate gastritis. There was a turbid yellow fluid on the placement of the paracentesis catheter. She tolerated the procedure well and was discharged home later that day. Since she was discharged home, she has continued to complain of continued abdominal pain as well as episodes of shortness of breath. She was seen shortly after placement of her tunneled paracentesis and did develop abdominal wall cellulitis, was admitted and treated with IV antibiotics as well as removal of abdominal fluid. She did well and was scheduled to have a paracentesis on Sunday, Sunday and Sunday. She has since been seen in the ER multiple times for drainage. She does continue to report episodes of pain. She then presented again to the ER on 12/05/2019 shortly after having drainage of the abdominal fluid. At that time, she was found to have area of erythema around the tunneled catheter insertion site as well as localized tenderness. Her white count was 9.8. It was decided at that time to admit her and started on antibiotics due to her history. She reports that today that she is still having some abdominal tenderness, however, is improving. She denies any fever or chills as well as no nausea or vomiting. She reports she is tolerating a diet, but does report anxiety. She reports that she is otherwise doing well. PAST MEDICAL HISTORY: Melchor anomaly, depression, constipation, gastroesophageal reflux disease, hypertension, history of drug abuse, atrial fibrillation, edema, endometriosis, irritable bowel, peptic ulcer disease, degenerative disk disease, fibromyalgia, chronic back pain, anxiety, bipolar, ADHD, previous suicide attempt, COPD, ascites. PAST SURGICAL HISTORY: Appendectomy, , cholecystectomy, hysterectomy, oophorectomy, pacemaker placement, tubal ligation, heart valve replacement, orthopedic procedure. ALLERGIES: PENICILLIN, SULFA, ASENAPINE, ERYTHROMYCIN, PROCHLORPERAZINE, PROMETHAZINE, PROPOXYPHENE. MEDICATIONS: Tylenol 500 mg q.4 hours p.r.n., albuterol sulfate inhaler 2 puffs q.4 hours p.r.n., buspirone 10 mg b.i.d., calcium 300 mg q.i.d. p.r.n., cefdinir 300 mg b.i.d., cephalexin 500 mg t.i.d., Flexeril 10 mg b.i.d., digoxin 125 mcg daily, diltiazem 180 mg daily, Lexapro 20 mg daily, Lasix 20 mg, hydrocodone 5/25 mg 1-2 every 4-6 hours p.r.n., hydroxyzine 25 mg t.i.d. p.r.n., Keppra 1000 mg b.i.d., metoprolol 25 mg b.i.d., mirtazapine 50 mg at bedtime, omeprazole mg at bedtime, MiraLax 17 grams b.i.d. p.r.n., potassium 20 mEq, risperidone 1 mg b.i.d., Xarelto 20 mg daily, spironolactone 25 mg b.i.d., Carafate 1 gram q.i.d., tramadol 50 mg every 4-6 hours. SOCIAL HISTORY: Positive for smoke, history of drug abuse with methamphetamine, marijuana as well as a history of alcohol use. FAMILY HISTORY: Mother, alcoholism, depression, diabetes, drug abuse, some form of cancer of the female organs. REVIEW OF SYSTEMS: A well-nourished female in no acute distress. She does report occasional episodes of some mild shortness of breath, but no difficulty breathing. No chest pain, palpitations or diaphoresis. No nausea or vomiting, but does report some abdominal pain near the insertion site of the tunneled catheter. No diarrhea, but does report a history of constipation. No red blood per rectum. No dark tarry stools. No fever or chills. No recent inadvertent weight loss. All other review of systems negative. PHYSICAL EXAMINATION: VITAL SIGNS: Temperature 36.6 degrees Celsius, pulse 72, respirations 20, blood pressure 100/62, pulse ox 100% on 2 liters nasal cannula. CHEST: Scattered rales and rhonchi bilaterally. HEART: Irregular. No murmurs. EXTREMITIES: No lower extremity edema. Negative Homans sign. HEENT: No scleral icterus. NECK: No cervical lymphadenopathy. ABDOMEN: Soft, mildly distended with some tenderness. There is some mild erythema around the insertion site of the catheter with no significant drainage noted. No palpable masses. No organomegaly. SKIN: Warm, dry and pink. NEUROLOGIC: Awake, alert, oriented x3. ASSESSMENT AND PLAN: A 39-year-old female with a multitude of medical problems. She currently has ascites as well as a localized abdominal wall cellulitis around the insertion site of the tunneled catheter. At this time, we will start her on antibiotics as well as pain, nausea medication as needed. Once this has resolved, we will then discharge her home and have her follow up as appropriate for a future paracentesis. Job ID: [id number] DocumentID: [id number] Dictated Date: 12/06/2019 11:46:37 Pantograph I Engraver Date: 12/06/2019 14:06:47 Dictated By: TANO MARQUEZ APRN
[2019-12-06 16:00] VITALS: BP 109/62
--- NOTE | 2019-12-06 17:49 | NUR ---
LAB CALLED WOUND CULTURE SHOWED MRSA -- PT WAS ALREADY PLACED IN CONTACT ISOLATION FOR MRSA
[2019-12-06 20:00] VITALS: BP 102/58
[2019-12-07] VITALS: BP 100/55
[2019-12-07 04:00] VITALS: BP 103/73
[2019-12-07] MEDS: CATHETER FLUSH 10 ML SYR IV SCH (06:46)
[2019-12-07] MEDS: ALPRAZolam 1 MG (XANAX) TAB PO PRN (06:50)
[2019-12-07] MEDS: KETOROLAC 15 MG/ML VIAL IVP PRN (06:50)
[2019-12-07] MEDS ORDERED: TROUGH ORDER-PHARMACY XX NR (07:30)
[2019-12-07 08:00] VITALS: BP 121/87
[2019-12-07] MEDS: VANCOMYCIN 1 GM/NS 250 ML IVPB IV SCH ×2 (08:39)
--- NOTE | 2019-12-07 08:46 | NUR ---
NOTE THAT THIS RN WITH PT HELP PULLED OFF 100 ML STRAW COLORED FLUID FROM PARACENTESIS PER ORDERS -- NEW DG APPLIED TO SITE -- PT REFUSES TO STAY FOR IV VANCO ANTIBX -- VOICED [facility] IS ON ITS WAY -- TANO WAS CALLED AND MESSAGE WAS LEFT
[2019-12-07 08:50] VITALS: BP 121/87
== END 2019-12-07 08:50 | disposition left against medical advice (07) | DRG 920 ==
LOC: EDUNIT# 17:50 → ER 17:52 → 4TH 18:21
PROVIDERS: ADMIT Surgery; ATTEND Surgery
DX: T85.79XA Infection and inflammatory reaction due to other internal prosthetic devices, implants and grafts, initial encounter (principal); B95.62 Methicillin resistant Staphylococcus aureus infection as the cause of diseases classified elsewhere; R18.8 Other ascites; T81.40XA Infection following a procedure, unspecified, initial encounter; L03.311 Cellulitis of abdominal wall; F17.210 Nicotine dependence, cigarettes, uncomplicated; J43.9 Emphysema, unspecified; I48.91 Unspecified atrial fibrillation; I10 Essential (primary) hypertension; G40.909 Epilepsy, unspecified, not intractable, without status epilepticus; N31.9 Neuromuscular dysfunction of bladder, unspecified; K21.9 Gastro-esophageal reflux disease without esophagitis; K44.9 Diaphragmatic hernia without obstruction or gangrene; M79.7 Fibromyalgia; F90.9 Attention-deficit hyperactivity disorder, unspecified type; F43.10 Post-traumatic stress disorder, unspecified; F31.9 Bipolar disorder, unspecified; F60.9 Personality disorder, unspecified; Z95.0 Presence of cardiac pacemaker; Z95.2 Presence of prosthetic heart valve; Z90.49 Acquired absence of other specified parts of digestive tract; Z90.710 Acquired absence of both cervix and uterus; Z90.722 Acquired absence of ovaries, bilateral
CPT/HCPCS: 36415; 80053; 80202; 80306; 81000; 85025; 87070; 87077; 87186; 87205; 96374; 99284

== ENCOUNTER 2019-12-12 12:13 | Emergency (ER) | payer MEDICAID ==
[~2019-12-12] VITALS: Ht 157 cm; Wt 63.0 kg
--- NOTE | 2019-12-12 12:15 | NUR ---
Pt arrives with patent PICC line to R upper arm.
[2019-12-12] MEDS ORDERED: fentaNYL INJECTION 100 MCG/2 ML AMP ONE (12:18)
[2019-12-12] MEDS ORDERED: fentaNYL INJECTION 100 MCG/2 ML AMP IVP ONE (12:30)
[2019-12-12] MEDS ORDERED: oxyCODONE/APAP 10/325MG (PERCOCET 10) TABLET PO ONE (12:45)
--- NOTE | 2019-12-12 12:48 | ED Abdominal Pain ---
General Chief Complaint: Abdominal/GI Problems Stated Complaint: ABD PAIN Nursing Triage Note: ARRIVED VIA EMS FOR CHRONIC ABD PAIN AND BILAT LEG EDEMA. Sepsis Screen: No Definite Risk Source of Information: Patient Exam Limitations: No Limitations History of Present Illness Date Seen by Provider: Dec 12, 2019 Time Seen by Provider: 12:37 Initial Comments To ER per EMS from home with left lower extremities swelling and abdominal distention and pain.. 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 She arrives today stating that she would like the drain removed, she is ready to "be done" and "whatever happens, happens". I discussed with her pursuing hospice and she would in fact like to pursue hospice. She realizes this ceases treatment and focus on comfort, she would like to proceed with this. She states that she has relapsed, used methamphetamine again 2 days ago, she is upset with herself for that. Timing/Duration: Getting Worse, Other Severity/Quality: Moderate Radiation: No Radiation Activities at Onset: None Associated Symptoms: Denies Symptoms Allergies and Home Medications Allergies Coded Allergies: asenapine (Unverified Allergy, Severe, TOUNGE SWELLING, 11/19/19) Penicillins (Unverified Allergy, Unknown, 11/19/19) Sulfa (Sulfonamide Antibiotics) (Unverified Allergy, Unknown, 11/19/19) erythromycin base (Verified Allergy, Unknown, 11/19/19) peas (Verified Allergy, Unknown, 11/19/19) prochlorperazine (Verified Allergy, Unknown, 11/19/19) promethazine (Verified Allergy, Unknown, 11/19/19) promethazine HCl (Unverified Allergy, Unknown, 11/19/19) propoxyphene (Verified Allergy, Unknown, 11/19/19) Home Medications Acetaminophen 500 Mg Tablet, 1,000 MG PO Q4H PRN for PAIN-MILD (1-4), (Reported) Albuterol Sulfate 6.7 Gm Hfa.aer.ad, 2 PUFF INH Q4H PRN for SHORTNESS OF BREATH, (Reported) Buspirone HCl 10 Mg Tablet, 10 MG PO BID, (Reported) Calcium Carbonate 300 Mg Tab.chew, 300 MG PO QID PRN for INDIGESTION, (Reported) Cefdinir 300 Mg Capsule, 300 MG PO BID Prescribed by: JAIME FALL on 10/22/191852 Cephalexin 500 Mg Capsule, 500 MG PO TID Prescribed by: SUDHIR SCOTT on 12/01/192126 Cyclobenzaprine HCl 10 Mg Tablet, 10 MG PO BID, (Reported) LAST FILLED #60 08-11-19 Digoxin 125 Mcg Tablet, 125 MCG PO DAILY, (Reported) Diltiazem HCl 180 Mg Cap.er.24h, 180 MG PO DAILY, (Reported) Escitalopram Oxalate 20 Mg Tablet, 20 MG PO DAILY, (Reported) LAST FILLED #30 07-28-19 Hydrocodone Bit/Acetaminophen 1 Tab Tab, 1 EACH PO Q6H PRN for PAIN-MODERATE Prescribed by: KEAGAN LUNDBERG on 10/16/19 171 Hydrocodone/Acetaminophen 1 Each Tablet, 1-2 TAB PO Q4-6HR PRN for PAIN-MODERATE (5-7), (Reported) Hydrocodone/Acetaminophen 1 Each Tablet, 1 TAB PO Q4-6HR Prescribed by: COLIN QUEVEDO on 10/11/19 0059 Hydroxyzine Pamoate 25 Mg Capsule, 25 MG PO BID, (Reported) Hydroxyzine Pamoate 25 Mg Capsule, 25 MG PO TID PRN for ITCHING Prescribed by: NICK GARCIA on 10/31/192020 Levetiracetam 1,000 Mg Tablet, 1,000 MG PO BID, (Reported) LAST FILLED #60 08-11-19 Metoprolol Tartrate 25 Mg Tablet, 25 MG PO BID, (Reported) Mirtazapine 15 Mg Tablet, 15 MG PO HS, (Reported) Omeprazole 40 Mg Capsule.dr, 40 MG PO HS, (Reported) LAST FILLED 06-12-19 #30 Polyethylene Glycol 3350 17 Gm Powd.pack, 17 GM PO BID PRN for CONSTIPATION-2ND LINE, (Reported) Risperidone 1 Mg Tablet, 1 MG PO BID, (Reported) LAST FILLED #60 08-11-19 Rivaroxaban 20 Mg Tablet, 20 MG PO DAILY, (Reported) LAST FILLED #30 08-11-19 Spironolactone 25 Mg Tablet, 25 MG PO BID, (Reported) Sucralfate 1 Gm Tablet, 1 GM PO QID, (Reported) Tramadol HCl 50 Mg Tablet, 50 MG PO 4-6 Prescribed by: SIVAKUMAR BAUER on 10/06/19 1708 Vancomycin HCl/D5w 1.5 Gm/250 Ml Plast..bag, 1.5 GM IV DAILY Prescribed by: JAGDISH SCRUGGS on 10/06/19 1204 Patient Home Medication List Home Medication List Reviewed: Yes Review of Systems Review of Systems Constitutional: see HPI; No chills, No fever EENTM: No Symptoms Reported Respiratory: No Symptoms Reported Cardiovascular: No Symptoms Reported Gastrointestinal: See HPI, Abdominal Pain Genitourinary: No Symptoms Reported Skin: no symptoms reported Psychiatric/Neurological: No Symptoms Reported Endocrine: No Symptoms Reported Hematologic/Lymphatic: No Symptoms Reported Past Udoodml-Cdrggf-Bobwqn Hx Patient Social History Alcohol Use: Past History Number of Drinks Today: CC Alcohol Beverage of Choice: Beer, Cheap Liquor Recreational Drug Use: Yes (CRYSTAL, WEED, PILLS ET CLEAN FOR 2 MONTHS) Drug of Choice: CRYSTAL, WEED, PILLS Type Used: Cigarettes 2nd Hand Smoke Exposure: Yes Recent Foreign Travel: No Contact w/Someone Who Travel: No Recent Infectious Disease Expo: No Recent Hopitalizations: No Immunizations Up To Date Tetanus Booster (TDap): Unknown PED Vaccines UTD: Yes Date of Pneumonia Vaccine: Oct 22, 2017 Date of Influenza Vaccine: Sep 06, 2019 Seasonal Allergies Seasonal Allergies: No Past Medical History Surgeries: Yes Abdominal, Appendectomy, Cardiac, Section, Gallbladder, Hysterectomy, Oophorectomy, Orthopedic, Pacemaker, Tubal Ligation, Valve Replacement Respiratory: Yes Asthma, Chronic Bronchitis, COPD, Emphysema Currently Using CPAP: No Currently Using BIPAP: No Cardiac: Yes Atrial Fibrillation, Chronic Edema/Swelling, Congenital Heart Disease, Heart Murmur, Hypertension, Irregular Heartbeat, Syncope, Valvular Heart Disease Neurological: Yes Headaches /Migraines, Seizure Disorder 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: Yes 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: 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 Sexually Transmitted Disease: No HIV/AIDS: No Genitourinary: Yes Neurogenic Bladder Gastrointestinal: Yes Gastroesophageal Reflux, Gastrointestinal Bleed, Hiatal Hernia, Ulcer, Irritable Bowel Musculoskeletal: Yes Degenerate Disk Disease, Fibromyalgia, Back Injury, Chronic Back Pain, Fractures Endocrine: No HEENT: Yes Loss of Vision: Bilateral Hearing Impairment: Denies Cancer: No Psychosocial: Yes ADD/ADHD, Anxiety, PTSD, Suicide Attempts, Bipolar, Personality Disorder, Depression Integumentary: No Blood Disorders: No Adverse Reaction/Blood Tranf: No Family Medical History Alcoholism 19 MOTHER Depression Depression Diabetes mellitus 19 MOTHER Drug abuse 19 MOTHER FH: cancer of genital organ 19 MOTHER No Pertinent Family Hx, Diabetes, Psychiatric Problems, Other Conditions/Hx Physical Exam Vital Signs Vital Signs - First Documented 12/12/19 12:13 Temp 37.0 Pulse 126 Resp 16 Pulse Ox 98 O2 Delivery Room Air Capillary Refill : Less Than 3 Seconds Height/Weight/BMI Height: 5'3.00" Weight: 130lbs. 0.0oz. 58.745567oh; 25.00 BMI Method:Stated General Appearance: WD/WN, no apparent distress Respiratory: no respiratory distress, no accessory muscle use Gastrointestinal: normal bowel sounds, soft, other (abdominal distention, 1.5 L cloudy straw-colored abdominal ascites drained.) Extremities: normal range of motion, non-tender Neurologic/Psychiatric: alert, normal mood/affect, oriented x 3 Skin: normal color, warm/dry Progress/Results/Core Measures Results/Orders My Orders Orders - SUDHIR SCOTT APRN Fentanyl Injection (Sublimaze Injection (12/12/19 12:30) Oxycodone/Acet 10/325mg Tablet (Percocet (12/12/19 12:45) Palliative Care Consult (12/12/19 12:51) Oxycodone/Apap 5/325mg Tablet (Percocet (12/12/19 13:00) General/Regular (12/12/19 Lunch) Lorazepam Injection (Ativan Injection) (12/12/19 13:15) Diphenhydramine Injection (Benadryl Inje (12/12/19 14:15) Medications Given in ED Current Medications Medications Dose Ordered Sig/Norma Route Start Time Stop Time Status Last Admin Dose Admin Diphenhydramine HCl 25 mg ONCE ONCE IVP 12/12/19 14:15 12/12/19 14:16 DC 12/12/19 14:11 25 MG Fentanyl Citrate 50 mcg ONCE ONCE IVP 12/12/19 12:30 12/12/19 12:31 DC 12/12/19 12:26 50 MCG Lorazepam 0.5 mg ONCE PRN IVP 12/12/19 13:15 12/12/19 13:09 0.5 MG Oxycodone/ Acetaminophen 2 tab ONCE ONCE PO 12/12/19 13:00 12/12/19 13:01 DC 12/12/19 12:58 2 TAB Vital Signs/I&O 12/12/19 12:13 Temp 37.0 Pulse 126 Resp 16 B/P (MAP) Pulse Ox 98 O2 Delivery Room Air Departure Communication (Admissions) PICC line will be removed, paracentesis catheter will be kept. She will sign-on with [facility], Carlos Alberto has arrange this, hospice has evaluated the patient here in the emergency room Impression Primary Impression: Ascites Qualified Codes: R18.8 - Other ascites Additional Impressions: Methamphetamine use Ebsteins anomaly Congestive heart failure Qualified Codes: I50.9 - Heart failure, unspecified Disposition: 01 HOME, SELF-CARE Condition: Stable Departure-Patient Inst. Decision time for Depature: 14:38 Referrals: [facility] (PCP/Family) Primary Care Physician Patient Instructions: No Instuctions Given Add. Discharge Instructions: 1. Plan to go home, me the hospice worker at your house with [facility]. All discharge instructions reviewed with patient and/or family. Voiced understanding. Copy Copies To 1: ELIEL YAN PETER J APRN Dec 12, 2019 12:48
[2019-12-12] MEDS ORDERED: oxyCODONE/APAP 5/325MG (PERCOCET 5) TABLET PO ONE (13:00)
[2019-12-12] MEDS ORDERED: LORazepam INJ 2 MG/ML (ATIVAN) VIAL IVP PRN (13:15)
--- NOTE | 2019-12-12 14:01 | NUR ---
Food tray delivered to pt in room #8.
--- NOTE | 2019-12-12 14:03 | NUR ---
Pt reports itching sensation around drain site. Provider notified.
[2019-12-12] MEDS ORDERED: diphenhydrAMINE 50 MG/ML INJ (BENADRYL) IVP ONE (14:15)
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
--- NOTE | 2019-12-12 15:00 | NUR ---
PICC line to R upper arm D/C'd by Luis Wray APRN per hospice request.
[2019-12-12 15:19] VITALS: BP 95/79
== END 2019-12-12 15:19 | disposition home or self-care (01) ==
LOC: EDUNIT# 12:13 → ER 12:14
DX: R18.8 Other ascites (principal); F15.90 Other stimulant use, unspecified, uncomplicated; Q22.5 Ebstein's anomaly; I11.0 Hypertensive heart disease with heart failure; I50.9 Heart failure, unspecified; I48.91 Unspecified atrial fibrillation; J43.9 Emphysema, unspecified; G40.909 Epilepsy, unspecified, not intractable, without status epilepticus; K21.9 Gastro-esophageal reflux disease without esophagitis; F41.9 Anxiety disorder, unspecified; F31.9 Bipolar disorder, unspecified; Z88.0 Allergy status to penicillin; Z88.2 Allergy status to sulfonamides; Z88.1 Allergy status to other antibiotic agents; Z88.8 Allergy status to other drugs, medicaments and biological substances; Z79.01 Long term (current) use of anticoagulants; Z77.22 Contact with and (suspected) exposure to environmental tobacco smoke (acute) (chronic); Z80.49 Family history of malignant neoplasm of other genital organs
CPT/HCPCS: 99282

== ENCOUNTER 2019-12-15 10:35 | Outpatient (RCR) | payer MEDICAID ==
[2019-11-07 16:10] VITALS: BP 118/78
[2019-11-10 15:24] VITALS: BP 98/68
[2019-11-12 12:50] VITALS: BP 116/77
[2019-11-14 11:05] VITALS: BP 118/84
[2019-11-17 14:27] VITALS: BP 123/84
[2019-11-19 13:00] VITALS: BP 116/66
[2019-11-21 13:15] VITALS: BP 105/64
[2019-11-24 14:58] VITALS: BP 106/62
[2019-11-26 14:00] VITALS: BP 96/57
[2019-11-28 14:40] VITALS: BP_SYST 117; BP_SYST 98; BP_DIAS 62; BP_DIAS 72
[2019-12-02 14:10] VITALS: BP 101/73
--- NOTE | 2019-12-02 14:10 | NUR ---
ONLY DRAINED 800 CC OF FLUID. PATIENT UNABLE TO TOLERATE DRAINING ANY MORE. DRESSING CHANGED.
[2019-12-03 14:43] VITALS: BP 94/58
[2019-12-05 17:11] VITALS: BP 96/58
[2019-12-10 13:25] VITALS: BP 135/86
[~2019-12-15] VITALS: Ht 160 cm; Wt 56.7 kg
[~2019-12-15 10:35] MED LIST changes: +ACHYD1T PO; -HYDR-3812 PO; -HYDR-3820 PO; -MECL-106 PO; +MECL-149 PO
[2019-12-15 10:55] VITALS: BP 108/73
[2019-12-18] MEDS ORDERED: DOXY100T2 PO (22:32)
== END 2020-02-05 | disposition home or self-care (01) ==
LOC: SDC 10:35
PROVIDERS: ATTEND Surgery
DX: Z45.2 Encounter for adjustment and management of vascular access device (principal)
CPT/HCPCS: 99211

== ENCOUNTER 2019-12-18 20:55 | Emergency (ER) | payer MEDICAID ==
[~2019-12-18] VITALS: Ht 160 cm; Wt 58.9 kg
[2019-12-18 21:43] LABS: BASOPHILS % (AUTO) 0 % (0-10); EOSINOPHILS # (AUTO) 0.3 10^3/uL (0.0-0.3); EOSINOPHILS % (AUTO) 4 % (0-10); HEMATOCRIT 33 % (35-52); HEMOGLOBIN 10.4 G/DL (11.5-16.0); LYMPHOCYTES # (AUTO) 1.1 X 10^3 (1.0-4.0); LYMPHOCYTES % (AUTO) 14 % (12-44); MEAN CORPUSCULAR HEMOGLOBIN 24 PG (25-34); MEAN CORPUSCULAR HGB CONC 31 G/DL (32-36); MEAN CORPUSCULAR VOLUME 76 FL (80-99); MEAN PLATELET VOLUME 9.3 FL (7.4-10.4); MONOCYTES # (AUTO) 0.8 X 10^3 (0.0-1.0); MONOCYTES % (AUTO) 10 % (0-12); NEUTROPHILS # (AUTO) 5.7 X 10^3 (1.8-7.8); NEUTROPHILS % (AUTO) 73 % (42-75); PLATELET COUNT 619 10^3/uL (130-400); WHITE BLOOD COUNT 7.9 10^3/uL (4.3-11.0)
[2019-12-18 21:50] LABS: SMEAR SCAN COMMENT YES
[2019-12-18 22:02] LABS: ALANINE AMINOTRANSFERASE 32 U/L (0-55); ALBUMIN 2.8 GM/DL (3.2-4.5); ALKALINE PHOSPHATASE 424 U/L (40-136); BILIRUBIN,TOTAL 0.3 MG/DL (0.1-1.0); BUN/CREATININE RATIO 27; CALCIUM 8.3 MG/DL (8.5-10.1); CARBON DIOXIDE 27 MMOL/L (21-32); CHLORIDE 100 MMOL/L (98-107); CREATININE SERUM 0.64 MG/DL (0.60-1.30); GFR ESTIMATED > 60; GLUCOSE 101 MG/DL (70-105); POTASSIUM 4.6 MMOL/L (3.6-5.0); SODIUM 134 MMOL/L (135-145); TOTAL PROTEIN 6.8 GM/DL (6.4-8.2)
[2019-12-18] MEDS ORDERED: DOXYCYCLINE 100 MG (VIBRAMYCIN) TABLET PO ONE (22:30)
[2019-12-18] MEDS ORDERED: HYDROcodone/APAP 5 MG/325 MG (LORTAB) TAB PO ONE (22:30)
[2019-12-18] MEDS ORDERED: DOXY100T2 PO (22:32)
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
[2019-12-18 22:38] VITALS: BP 99/64
== END 2019-12-18 22:41 | disposition home or self-care (01) ==
LOC: EDUNIT# 20:55 → ER 20:57
DX: T85.698A Other mechanical complication of other specified internal prosthetic devices, implants and grafts, initial encounter (principal); L03.311 Cellulitis of abdominal wall; R18.8 Other ascites; G89.29 Other chronic pain; I48.91 Unspecified atrial fibrillation; I11.0 Hypertensive heart disease with heart failure; I50.9 Heart failure, unspecified; J43.9 Emphysema, unspecified; G40.909 Epilepsy, unspecified, not intractable, without status epilepticus; K21.9 Gastro-esophageal reflux disease without esophagitis; F41.9 Anxiety disorder, unspecified; F90.9 Attention-deficit hyperactivity disorder, unspecified type; F31.9 Bipolar disorder, unspecified; F43.10 Post-traumatic stress disorder, unspecified; Z88.0 Allergy status to penicillin; Z88.2 Allergy status to sulfonamides; Z88.1 Allergy status to other antibiotic agents; Z95.0 Presence of cardiac pacemaker; Z95.2 Presence of prosthetic heart valve; Z88.8 Allergy status to other drugs, medicaments and biological substances; Z77.22 Contact with and (suspected) exposure to environmental tobacco smoke (acute) (chronic); Z90.49 Acquired absence of other specified parts of digestive tract; Z79.02 Long term (current) use of antithrombotics/antiplatelets; Z80.49 Family history of malignant neoplasm of other genital organs
CPT/HCPCS: 36415; 80053; 85025; 86141

== ENCOUNTER 2020-03-15 08:53 | Emergency (ER) | payer MEDICAID ==
[~2020-03-15] VITALS: Ht 160 cm; Wt 77.7 kg
[2020-03-15 09:21] LABS: BASOPHILS % (AUTO) 0 % (0-10); EOSINOPHILS # (AUTO) 0.3 10^3/uL (0.0-0.3); EOSINOPHILS % (AUTO) 3 % (0-10); HEMATOCRIT 29 % (35-52); HEMOGLOBIN 9.7 G/DL (11.5-16.0); LYMPHOCYTES # (AUTO) 0.9 X 10^3 (1.0-4.0); LYMPHOCYTES % (AUTO) 8 % (12-44); MEAN CORPUSCULAR HEMOGLOBIN 29 PG (25-34); MEAN CORPUSCULAR HGB CONC 34 G/DL (32-36); MEAN CORPUSCULAR VOLUME 85 FL (80-99); MEAN PLATELET VOLUME 9.2 FL (7.4-10.4); MONOCYTES # (AUTO) 1.2 X 10^3 (0.0-1.0); MONOCYTES % (AUTO) 11 % (0-12); NEUTROPHILS # (AUTO) 8.8 X 10^3 (1.8-7.8); NEUTROPHILS % (AUTO) 78 % (42-75); PLATELET COUNT 520 10^3/uL (130-400); RED CELL DISTRIBUTION WIDTH 14.9 % (10.0-14.5); WHITE BLOOD COUNT 11.2 10^3/uL (4.3-11.0)
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
[2020-03-15 09:31] LABS: ALBUMIN 3.4 GM/DL (3.2-4.5); CHLORIDE 99 MMOL/L (98-107); POTASSIUM 3.9 MMOL/L (3.6-5.0); SODIUM 134 MMOL/L (135-145)
[2020-03-15 09:32] LABS: CALCIUM 8.3 MG/DL (8.5-10.1)
[2020-03-15 09:33] LABS: GLUCOSE 150 MG/DL (70-105)
[2020-03-15 09:34] LABS: CARBON DIOXIDE 24 MMOL/L (21-32)
[2020-03-15 09:35] LABS: BILIRUBIN,TOTAL 0.9 MG/DL (0.1-1.0)
[2020-03-15 09:36] LABS: INR 1.7 (0.8-1.4); PROTHROMBIN TIME PATIENT 20.9 SEC (12.2-14.7)
[2020-03-15 09:37] LABS: ALKALINE PHOSPHATASE 340 U/L (40-136); CREATININE SERUM 0.65 MG/DL (0.60-1.30); GFR ESTIMATED > 60
[2020-03-15 09:37] LABS: BILIRUBIN,URINE NEGATIVE (NEGATIVE); CLARITY,URINE CLEAR; COLOR,URINE YELLOW; GLUCOSE, URINE (UA) NEGATIVE (NEGATIVE); KETONES,URINE NEGATIVE (NEGATIVE); LEUKOCYTE ESTERASE ,URINE NEGATIVE (NEGATIVE); NITRITE,URINE NEGATIVE (NEGATIVE); PROTEIN,URINE NEGATIVE (NEGATIVE)
[2020-03-15 09:38] LABS: BUN/CREATININE RATIO 22
[2020-03-15 09:40] LABS: ALANINE AMINOTRANSFERASE 15 U/L (0-55)
[2020-03-15 09:43] LABS: BACTERIA,URINE NEGATIVE /HPF
--- NOTE | 2020-03-15 09:46 | Diagnostic Imaging Report ---
EXAMINATION: Portable chest INDICATION: New onset of arm edema. Comparison is made with the prior study from 10/10/2019. FINDINGS: There is enlargement of the cardiac silhouette which is unchanged from the prior examination. A pacemaker device is also present. There has been previous extensive spinal fixation with Tavares rods. The central pulmonary vascularity appears appropriate without current overt failure. There is no focal infiltrate or consolidation. No significant effusion demonstrated. There are no findings of pneumothorax. IMPRESSION: 1. Stable enlargement of the cardiac silhouette. Central pulmonary vascularity currently appears appropriate without evidence of overt failure or pleural effusion. Dictated by: Dictated on workstation # [id number]
[2020-03-15 09:51] LABS: AMPHETAMINE SCREEN, URINE NEGATIVE (NEGATIVE); BARBITURATE SCREEN URINE NEGATIVE (NEGATIVE); BENZODIAZEPINES SCREEN URINE POSITIVE (NEGATIVE); CANNABINOID SCREEN, URINE POSITIVE (NEGATIVE); COCAINE SCREEN URINE NEGATIVE (NEGATIVE); METHADONE STAT NEGATIVE (NEGATIVE); METHAMPHETAMINE SCREEN URINE S NEGATIVE (NEGATIVE); OPIATE SCREEN URINE POSITIVE (NEGATIVE); OXYCODONE STAT POSITIVE (NEGATIVE); PROPOXYPHENE STAT NEGATIVE (NEGATIVE); TRICYCLIC ANTIDEPRESSANTS SCRE NEGATIVE (NEGATIVE)
[2020-03-15 09:52] LABS: ANISOCYTOSIS SLIGHT; EOSINOPHILS % (MANUAL) 2 %; HYPOCHROMASIA SLIGHT; LYMPHOCYTES % (MANUAL) 9 %; MONOCYTES % (MANUAL) 10 %; NEUTROPHILS % (MANUAL) 79 %; POIKILOCYTOSIS SLIGHT; TARGET CELLS SLIGHT
[2020-03-15] MEDS ORDERED: FUROSEMIDE 40 MG/4 ML INJ (LASIX) IVP ONE (10:15)
[2020-03-15 10:53] VITALS: BP 128/95
== END 2020-03-15 10:53 | disposition home or self-care (01) ==
LOC: EDUNIT# 08:53 → ER 08:57
DX: R60.1 Generalized edema (principal); K72.10 Chronic hepatic failure without coma; D64.9 Anemia, unspecified; J43.9 Emphysema, unspecified; I48.91 Unspecified atrial fibrillation; I10 Essential (primary) hypertension; G40.909 Epilepsy, unspecified, not intractable, without status epilepticus; K21.9 Gastro-esophageal reflux disease without esophagitis; F41.9 Anxiety disorder, unspecified; F31.9 Bipolar disorder, unspecified; F17.210 Nicotine dependence, cigarettes, uncomplicated; Z88.0 Allergy status to penicillin; Z88.2 Allergy status to sulfonamides; Z88.1 Allergy status to other antibiotic agents; Z88.8 Allergy status to other drugs, medicaments and biological substances; Z79.01 Long term (current) use of anticoagulants
CPT/HCPCS: 36415; 71045; 80053; 80306; 81000; 83735; 83880; 85007; 85027; 85610; 85730; 93005; 93041

== ENCOUNTER 2020-05-16 08:30 | Emergency (ER) | payer MEDICAID ==
[~2020-05-16] VITALS: Ht 160 cm; Wt 65.0 kg
[~2020-05-16 08:30] MED LIST changes: -WARF5TAB PO; +WARF5TAB2 PO
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
[2020-05-16] MEDS ORDERED: HYDROcodone/APAP 10 MG/325 MG (LORTAB) TAB PO ONE ×2 (09:00→10:45)
[2020-05-16] MEDS ORDERED: ONDANSETRON 4 MG (ZOFRAN) ORAL DISSOLVE TAB PO ONE (09:00)
--- NOTE | 2020-05-16 09:45 | Diagnostic Imaging Report ---
INDICATION: Seizure with fall, hit head. Hip pain EXAMINATION: Right hip 05/16/2020 FINDINGS: 2 views of the right hip The hip joint is intact. No fracture or dislocation seen. There is a vague lucency seen along the inferior pubic ramus on the right on both views. A nondisplaced fracture line is suspected. IMPRESSION: 1. Possible fracture of the right inferior pubic ramus. Correlate with site of pain. Hip joint intact. Dictated by: Dictated on workstation # [id number]
--- NOTE | 2020-05-16 09:50 | Diagnostic Imaging Report ---
INDICATION: Seizure, fell and hit head. Pain in the right shoulder EXAMINATION: Right shoulder 05/16/2020 FINDINGS: 3 views of the shoulder. There is no evidence for acute fracture or dislocation. Joint spaces are preserved. Visualized lungs demonstrate no acute disease. Postoperative findings noted in the mediastinum and upper thoracic spine. IMPRESSION: 1. No acute osseous abnormality. Dictated by: Dictated on workstation # [id number]
--- NOTE | 2020-05-16 10:02 | Diagnostic Imaging Report ---
PROCEDURE: CT head and CT cervical spine without contrast. TECHNIQUE: Multiple contiguous axial images were obtained through the brain and cervical spine without the use of intravenous contrast. Sagittal and coronal reformations through the cervical spine were then performed. Auto Exposure Controls were utilized during the CT exam to meet ALARA standards for radiation dose reduction. INDICATION: Seizure, head and neck pain. CT HEAD: There is no mass, shift to the midline or hemorrhage to suggest an acute intracranial abnormality. The ventricles are not abnormally dilated and stable in size when compared to the prior exam of 11/19/2019. The bone windows show no evidence for a fracture or for a destructive lesion. The orbits are symmetrical and within normal limits. The sinuses are generally clear. The mastoid air cells on the right are not as well pneumatized as on the left. This could be a sequela of prior episodes of mastoiditis. IMPRESSION: 1. There is no evidence for an acute intracranial abnormality. 2. If clinical concern regarding an acute abnormality persists, then a short-term (24-hour) follow-up CT head exam should be obtained. The patient does have a left-sided pacemaker in place and this would preclude further evaluation by MRI. CT cervical spine: The previous CT cervical spine exam of 06/11/2018 did note widening of the posterior disc space at C5-C6 with ankylosis anteriorly. There was also slight perching of the facets at this level. The reconstructed parasagittal images again show widening of the posterior aspect of the disc space at C5-C6 and slight perching of the facets. These findings seem similar to the prior exam as well. There is no fracture or acute bony abnormality appreciated. There is no sign of a high-grade central stenosis. There is no evidence for retropharyngeal edema. The lung apices are partially obscured by streak artifact related to the orthopedic hardware in the upper thoracic spine. There is no evidence for retropharyngeal edema. The thyroid gland is generally unremarkable. IMPRESSION: 1. The widening of the posterior aspect of the disc space at C5-C6 and the slight perching of the facets bilaterally seen on the prior study are again evident on this exam and essentially no different. 2. There is no acute bony abnormality noted. Dictated by: Dictated on workstation # [id number]
--- NOTE | 2020-05-16 10:24 | NUR ---
PT REQUESTS MORE PAIN MEDS. NOTIFIED.
[2020-05-16 10:49] VITALS: BP 119/86
--- NOTE | 2020-05-16 10:51 | NUR ---
PT CALLED HIS SON TO PICK HER UP.
== END 2020-05-16 10:49 | disposition home or self-care (01) ==
LOC: EDUNIT# 08:30 → ER 08:31
DX: M25.511 Pain in right shoulder (principal); R51 Headache; M25.551 Pain in right hip; G40.909 Epilepsy, unspecified, not intractable, without status epilepticus; I48.91 Unspecified atrial fibrillation; J43.9 Emphysema, unspecified; I10 Essential (primary) hypertension; K21.9 Gastro-esophageal reflux disease without esophagitis; F31.9 Bipolar disorder, unspecified; F41.9 Anxiety disorder, unspecified; G89.29 Other chronic pain; M54.9 Dorsalgia, unspecified; M54.2 Cervicalgia; M79.7 Fibromyalgia; R40.2142 Coma scale, eyes open, spontaneous, at arrival to emergency department; R40.2252 Coma scale, best verbal response, oriented, at arrival to emergency department; R40.2362 Coma scale, best motor response, obeys commands, at arrival to emergency department; F17.210 Nicotine dependence, cigarettes, uncomplicated; Z79.01 Long term (current) use of anticoagulants; Z95.4 Presence of other heart-valve replacement; Z88.0 Allergy status to penicillin; Z79.891 Long term (current) use of opiate analgesic; Z88.2 Allergy status to sulfonamides; Z88.1 Allergy status to other antibiotic agents; Z88.8 Allergy status to other drugs, medicaments and biological substances; Z80.49 Family history of malignant neoplasm of other genital organs; W19.XXXA Unspecified fall, initial encounter
CPT/HCPCS: 70450; 72125; 73030; 73502